=== PATIENT | female | born 1945 | race Caucasian/White ===

== ENCOUNTER 2021-08-26 14:30 | Outpatient (RCR) | payer OTHER, SELFPAY ==
--- OUTSIDE RECORDS SUMMARY | 2021-08-20 09:29 | XMS_ITS | Continuity of Care Document ---
:1945 Author Care Team Providers Name Role Phone MD Leonel Briones Attending Physician MD Leonel Briones Primary Care Physician Allergies, Adverse Reactions, Alerts Allergen Type Severity Reaction Last Updated Verified Status No Known Drug Allergy Unknown July 20, Yes Active Allergy 2021 Social History Smoking Status Status Start Date End Date Date of Observat ion Never smoked tobacco August 18, 2021 8:17pm (finding) Observation Status Observation Response Date of Response History provided by Patient April 16, 2021 5:35pm Where do you live? Own home/apt April 16, 2021 5:35pm With whom do you live? Alone April 16 5:35pm Additional Data Assigned Sex Female Problems Active Problems Medical Problem Onset Date Status Ventricular bigeminy Active Hypertension Active Solitary pulmonary nodule Active Obesity Active Monoclonal gammopathy 2009 Active Hx of basal cell carcinoma April, Resolved History of small bowel obstruction Resol zachery Obstructive sleep apnea Active Atypical melanocytic hyperplasia April, Resolve d Depression Active Hyperlipidemia Active History of colon polyps Active Lymphocytic colitis Active History of MRSA infection 2006 Resolved KAREN (obstructive sleep apnea) Active Diabetes 1.5, managed as type 2 Active Polycystic liver disease Active Polycystic kidney disease Active Macrocytic anemia Active Hypoxia Active CHF (congestive heart failure) Active Heart failure with preserved Active ejection fraction Thyroid nodule greater than or Active equal to 1.5 cm in diameter incidentally noted on imaging study Multiple myeloma not having 2020 Active achieved remission Shortness of breath Active History of cholecystectomy 1996 Resolved History of ventral hernia 2002 Resolved History of abdominoplasty 2006 Resolved History of tonsillectomy Resolved Medications Medication Status Dose Units Route Directions Qty Days Start End Ins tructions Date Date Acetaminophen Active 1 TAB PO Every 8-12 11 August /Hydrocodone Hours as , Bitart needed 2021 (Hydrocodone- 3:05pm Acetaminophen ) 5 Mg/325 Mg TAB Acyclovir Active 400 MG PO Twice A Day 60 May 28, 2021 3:49pm Aspirin Active 325 MG PO Daily 100 Atenolol Active 75 MG PO Twice A Day 90 March 03, 2021 8:01am Atorvastatin Active 20 MG PO Daily 90 Decembe Calcium r 2020 11:00am Cholecalcifer Active 2000 UNIT OR Daily ol (Vitamin D3) 2,000 Unit CAP Cyanocobalami Active 1000 MCG PO Daily n (Vitamin B 12) 1,000 Mcg TAB Dexamethasone Active 40 MG PO One Day Per 40 40 MG ON DAYS Week 1,8,15 AND 22 OF EACH 28 DAY CYCLE Folic Acid Active Unknow PO Daily 30 n Dose Furosemide Active 40 MG PO Daily 90 ua y 2021 3:26pm Lenalidomide Active 15 MG PO As Directed days 1- Lisinopril Active 40 MG PO Daily June 40 mg ta b in , AM 2021 2:46pm Metformin Hcl Active 500-10 MG PO Twice Daily April 500 mg with 00 With Meals , 2021 and 1000 mg 10:17am at supper. Methylprednis Active 4 MG PO As Directed 17 July as directed olone , on package (Methylpredni 2021 solone 10:57am Dosepak) 4 Mg KATHERYN Montelukast Active 10 MG PO As Directed 26 June T cruzito 1 tab prior to daratunumab injection; bring with to Sodium , [facility] 2021 10 Mg TAB 4:15pm Omeprazole Active 20 MG PO As Directed April Ta ke for 3 , days starting 2021 with each 11:46am dose of dexamethasone . Potassium Active 10 MEQ PO Daily May On hold Chloride 2021 9:30am Prochlorperaz Active 10 MG PO Every 4-6 30 uar PRN ine Maleate Hours as y , Navid sea/vomiti needed for 2021 ng Nausea/Vomi 4:08pm ting Turmeric Active Unknow PO (Curcuma n Dose Longa) (Turmeric) Unknown Strength TAB Acyclovir Disconti 200 MG PO Twice A Day 60 30 June nued as needed y , 2021 4:12pm 10:11a m Aspirin Disconti 81 MG PO Daily June (Aspirin 81) nued , , 81 Mg TAB 2020 2021 11:23am 9:50am Atenolol Disconti 75 MG PO Twice A Day Novemberuar nued , y 2020 12:53pm 8:01am Atenolol Disconti 75 MG PO Twice A Day Augustobe nued , r 2020, 8:00am 2020 12:53p m Atenolol Disconti 75 MG PO Twice A Day 90 August, , 2020 2020 2:38pm 8:00am Atenolol Disconti 75 MG PO Twice A Day Juneed , , 2020 2020 8:06am 2:38pm Atenolol Disconti 75 MG PO Twice A Day 90 June y , 2020 8:27am 8:06am Atenolol Disconti 75 MG PO Twice A Day February nued , ry 2019 06, 1:19pm 2020 8:27am Atenolol Disconti 50 MG PO Twice A Day y 2019 1:14pm Atorvastatin Disconti 20 MG PO Daily Dece Calcium nued r 16, er 2019 10th, 3:44pm 2020 11:00a m Atorvastatin Disconti 20 MG PO Daily November Calcium nued , er 2019 16, 8:55am 2019 3:44pm Citalopram Disconti 20 MG PO Daily 30 mbe Februa Hydrobromide nued r 22, ry (Citalopram) 2020 25th, 20 Mg TAB 1:38pm 2021 3:12pm Cyclophospham Disconti 600 MG PO Weekly 48 4 April ta ke 12 ross nued , , tablets once 2021 2021 a week on day 5:06pm 3:08pm of chemo Cyclophospham Disconti 600 MG PO Weekly 48 4 April take 12 ross nued y , , tablets once 2021 2021 a week on day 4:08pm 5:06pm of chemo Dexamethasone Disconti 4 MG PO .as May Michael e on days nued Directed , , 2, 9, and 1 6 2021 2021 of first 3:49pm 10:11a cycle only. m Furosemide Disconti 40 MG PO Daily ua nued r , ry 2020 3rd, 12:44pm 2021 3:26pm Furosemide Disconti 20 MG PO Daily nued r , er 2020, 11:08am 2020 1:00pm Furosemide Disconti 20 MG PO Daily September nued , er 2020 8th, 10:06am 2020 11:08a m Furosemide Disconti 20 MG PO Daily June nued , , 2020 2020 8:13am 10:06a m Furosemide Disconti 20 MG PO Daily June nued , , 2020 2020 4:48pm 8:13am Influenza Disconti 0.7 ML IM Once 1 Virus Vac nued , er Split High 2020, (Fluzone 1:08pm 2020 High-Dose Pf 1:09pm 2020 0.7 Ml) 1 Inj INJ Influenza Disconti 0.7 ML IM Once Novemberobe Virus Vac nued , r Split High 2019, (Fluzone 11:44am 2019 High-Dose Pf 11:47a 2019 0.7 Ml) m 1 Inj INJ Lenalidomide Disconti 25 MG PO .as Direc May DAYS 1-21 OF (Revlimid) 25 nued , , 28 DAY CYCLE Mg CAP 2021 2021 3:49pm 10:11a m Lisinopril Disconti 40 MG PO Daily June 40 m g tab in AM, and use a 20 mg tab at HS. Total 60 mg nued r , , per day. 2020 2021 1:42pm 2:46pm Lisinopril Disconti 20 MG PO Bedtime Mayr 40 mg tab in nued , y the AM, 20 mg 2020, at bed time. 2:53pm 2021 3:28pm Lisinopril Disconti 40 MG PO Every May 40 mg tab in nued Morning , , the AM, 20 m g 2020 2020 at bed time. 2:53pm 10:47a m Lisinopril Disconti 40 MG PO Daily May Take i n AM nued 2020 2:53pm Lisinopril Disconti 20 MG PO Bedtime May nued 2020 2:53pm Metformin Hcl Disconti 500-10 MG PO Twice Daily April 500 mg with nued 00 With Meals r 8th, 7th, breakfas , 2020 2021 and 1000 mg 11:08am 10:17a at supper. m Metformin Hcl Disconti 500-10 MG PO Twice Daily November 500 mg with nued 00 With Meals 20th, er breakfast , 2019 09, and 1000 mg 3:28pm 2020 at supper. 11:08a m Metformin Hcl Disconti 500-10 MG PO Twice Daily November 500 mg with nued 00 With Meals 20th, r breakfast , 2019, and 1000 mg 12:18pm 2019 at supper. 3:28pm Nifedipine Disconti 30 MG PO Daily April (Nifedipine nued , , Er) 30 Mg 2021 2021 TABCR 12:54pm 2:49pm Nifedipine Disconti 30 MG PO Daily April (Nifedipine nued y , Er) 30 Mg 2020 2021 TABCR 1:03pm 12:54p m Nifedipine Disconti 60 MG PO Daily (Nifedipine nued r , er Er) 60 Mg 2020, TABCR 1:44pm 2020 10:26a m Nifedipine Disconti 30 MG PO Daily (Nifedipine nued y , ry Er) 30 Mg 2019 09, TABCR 1:35pm 2020 1:03pm Nifedipine Disconti 30 MG PO Daily February (Nifedipine nued , ry Er) 30 Mg 2019 06, TABCR 5:222019 1:35pm Pneumococcal Disconti 0.5 ML IM Once February Polyvalent nued 8th, y , Vaccine 2019 2019 (Pneumovax 10:23am 3:24pm 23) 25 Mcg/0.5 Ml INJ Potassium Disconti 10 MEQ PO Daily May Chloride nued y , , 2021 2021 9:31am 9:30am Potassium Disconti 20 MEQ PO Daily 90 Februar Februa Chloride nued y , 2021, 3:26pm 2021 11:16a m Potassium Disconti 20 MEQ PO Daily 30 Decembe Februa Chloride nued r , 2020, 12:44pm 2021 3:26pm Prednisone Disconti 40 MG PO Daily 10 Februar Februa nued y , 2021 25th, 9:35am 2021 3:12pm Trimethoprim/ Disconti 1 TAB PO Daily 90 90 Februar June Sulfamethoxaz nu y , , ole (Bactrim 2021 2021 (400 Mg/80 4:13pm 2:49pm Mg)) 400 Mg/80 Mg TAB Immunizations Immunization Event Date Not Given Dose Android Framework Developer Lot Vac cine Reason Number Number Informatio n Statement (VIS) Deta mo COVID-19 Moderna February 272020 COVID-19 Moderna March 312020 COVID-19 Moderna December 302020 Herpes Zoster February 272012 Influenza December 112018 Influenza December 12 SANOFI 2019 Influenza February 12 SANOFI 2020 Influenza December 282004 Influenza November 282005 Influenza November 292006 Influenza January [id number] Influenza December 312008 Influenza November 272009 Influenza December 032010 Influenza March 062012 Influenza May 202013 Influenza December 062014 Influenza February 062015 Influenza December 082016 Influenza November 302017 Influenza December 102017 Influenza November 272019 Influenza January 282020 Prevnar Adult November 272014 Pneumovax Adult March 06, MERCK [id number] 2019 Pneumovax Adult November 27 [id number] 2009 Pneumovax Adult November 28 [id number] 2016 Tetanus/Diptheri June 30, 4 a 2010 Tetanus/Diptheri January 27 a 1982 Tetanus/Diptheri September 23, 2 a 1996 Tetanus/Diptheri July 27, 3 a 2006 Tdap June 30, 1 (adolescent/adul 2010 t) Relevant Diagnostic Tests and/or Laboratory Data Laboratory Results Test Date/Time Result Interpretation Reference Result Comment Performing Range Site White Blood August 18, 3.54 5.00-10.00 [facility] Lab Count 2021 1999 [facility] 10:52am [place] [address] Red Blood August 18, 3.69 3.90-5.03 [facility] Lab Count 2021 [address] [facility] 10:52am [place] [address] Hemoglobin August 18, 11.2 12.0-15.5 [facility] 2021 [address] [facility] 10:52am [place] [address] Hematocrit August 18, 36.9 34.9-44.5 [facility] 2021 [address] [facility] 10:52am [place] [address] Mean August 18, 100 82-98 [facility] Corpuscular 2021 1999 [facility] Volume 10:52am [place] [address] Mean August 18, 30 27-34 [facility] Corpuscular 2021 1999 [facility] Hemoglobin 10:52am [facility] [place] [address] Mean August 18, 30 32-36 [facility] Corpuscular 2021 [address] [facility] Hemoglobin 10:52am [facility] [place] [address] Concent Platelet August 18, 128 150-450 [facility] Count 2021 [address] [facility] 10:52am [place] [address] RDW August 18, 15.0 11.5-15.3 [facility] Coefficient 2021 1999 [facility] of Variation 10:52am [place] [address] Neutrophils August 18, 61.6 50.0-70.0 [facility] Lab (%) (Auto) 2021 [address] [facility] 10:52am [place] [address] Lymphocytes August 18, 12.1 25.0-45.0 [facility] Lab (%) (Auto) 2021 [address] [facility] 10:52am [place] [address] Monocytes (%) August 18, 17.8 0.00-11.0 [facility] Lab (Auto) 2021 [address] [facility] 10:52am [place] [address] Eosinophils August 18, 7.6 0.0-7.0 [facility] Lab (%) (Auto) 2021 [address] [facility] 10:52am [place] [address] Basophils (%) August 18, 0.6 0.0-3.0 [facility] Lab (Auto) 2021 [address] [facility] 10:52am [place] [address] Immature August 18, 0.3 [facility] Granulocyte % 2021 1999 [facility] (Auto) 10:52am [facility] [address] Neutrophils # August 18, 2.18 1.70-7.00 [facility] Lab (Auto) 2021 [address] [facility] 10:52am [facility] [address] Lymphocytes # August 18, 0.43 0.90-2.90 [facility] Lab (Auto) 2021 [address] [facility] 10:52am [facility] [address] Monocytes # August 18, 0.63 0.30-0.90 [facility] Lab (Auto) 2021 [address] [facility] 10:52am [facility] [address] Eosinophils # August 18, 0.27 0.00-0.50 [facility] Lab (Auto) 2021 [address] [facility] 10:52am [facility] [address] Basophils # August 18, 0.02 0.00-0.20 [facility] Lab (Auto) 2021 [address] [facility] 10:52am [place] [address] Immature August 18, 0.01 [facility] Granulocyte # 2021 [address] [facility] (Auto) 10:52am [facility] [address] Ferritin February 65.4 11.1-264 Patients taking [facility] 2021 a high dose [address] [facility] [address] 4:50pm (>5mg/day) of [facility] [place] [address] Biotin supplement (vitamin B7) will demonstrate a >10% negative bias for this test. Random August 18, 98 60-115 [facility] Glucose 2021 [address] [facility] 10:52am [facility] [address] Blood Urea August 18, 32 7-30 [facility] Nitrogen 2021 [address] [facility] 10:52am [facility] [address] Creatinine August 18, 1.1 0.5-1.5 [facility] 2021 [address] [facility] 10:52am [place] [address] Estimated August 18, 36.26230 [facility] Creatinine 2021 [address] [facility] Clearance 10:52am [facility] [address] Sodium Level August 18, 139 135-149 [facility] 2021 [address] [facility] 10:52am [facility] [address] Potassium August 18, 4.4 3.6-5.1 [facility] Level 2021 [address] [facility] 10:52am [facility] [address] Chloride August 18, 99 96-114 [facility] Level 2021 [address] [facility] 10:52am [facility] [address] Carbon August 18, 34 20-32 [facility] Dioxide Level 2021 [address] [facility] 10:52am [facility] [address] Uric Acid February 14.2 2.2-8.4 [facility] 2021 [facility] 4:50pm [facility] [address] Calcium Level August 18, 9.4 8.4-10.6 [facility] Lab 2021 [address] [facility] 10:52am [facility] [address] Total Protein August 18, 6.3 6.0-8.3 The use of [facility] 2021 Eltrombopag, a [address] [facility] 10:52am bone marrow [facility] [address] stimulant used to treat thrombocytopenia and aplastic anemia, interferes with this measurement of total protein. A 5% bias has been observed. Albumin August 18, 4.1 3.3-5.0 [facility] 2021 [address] [facility] 10:52am [facility] [address] Total August 18, 0.5 0.1-1.5 [facility] Bilirubin 2021 [address] [facility] 10:52am [facility] [address] Aspartate August 18 12-35 [facility] Amino Transf 2021 [address] [facility] [address] (AST/SGOT) 10:52am [facility] [address] Alanine August 18 17 4-35 [facility] Aminotransfer 2021 [address] [facility] ase 10:52am [facility] [address] (ALT/SGPT) Alkaline August 18, 43 40-150 [facility] Phosphatase 2021 1999 [facility] 10:52am [facility] [address] Oauy-[id number] February 34.8 1.1-2.4 Performed By: [facility] lobulin 2021 [facility] [address] [facility] [address] 4:50pm [id number] [place] [id number] [place], [place] [id number] Director: Olivia Hill MD Homocysteine March 05 0-15 INTERPRETIVE [facility] 2021 INFORMATION: [address] 4:50pm Homocysteine, [facility] [address] TotalElevated total homocysteine (tHcy) concentrations may beassociated with vitamin B12 deficiency, folate deficiency, orinherited disorders of methionine metabolism. tHcy may also beused as a weak-graded risk factor for cardiovascular disease orstroke.Perform ed By: [address] [address]Mnjgkiofys Director: Olivia Hill MD Methylmalonic February 0.58 0.00-0.40 Slight elevation [facility] Acid 2021 0.41-0.99 umol/L [address] 4:50pm Consistent KATY [facility] [address] with mild vitamin B12 deficiency, renal insufficiency, or intravascular volume contraction.Mode rate elevation 1.00-9.99 umol/L Consistent with mild vitamin B12 deficiency.Massi ve elevation - Greater than or equal to 10 umol/L Consistent with significant vitamin B12 deficiency or with inborn errors of metabolism.INTER PRETIVE INFORMATION: MMA Serum/Plasma, Vitamin B12 StatusThis test was developed and its performance characteristicsd etermined by [facility]. It has not been cleared orapproved by the [place] Food and Drug Administration. This test wasperformed in a CLIA certified laboratory and is intended forclinical purposes.Perform ed By: [address] [id number] Director: Olivia Hill MD Total Protein August 04, 6.0 6.3-8.2 [facility] (DOMO) [address] 10:32am [facility] [address] Albumin (DOMO) August 04, 3.46 3.75-5.01 [facility] [address] 10:32am [facility] [address] Vrstu-[id number] August 04, 0.44 0.19-0.46 [facility] kofi [address] 10:32am [facility] [address] Vsoim-3-[id number] August 04, 0.85 0.48-1.05 [facility] kofi [address] 10:32am [facility] [address] Beta August 04, 0.67 0.48-1.10 [facility] Globulins [address] 10:32am [facility] [address] Gamma August 04, 0.58 0.62-1.51 [facility] Globulins [address] 10:32am [facility] [address] Immunofixatio August 04, DOM[facility] Done [facility] n [address] Interpretatio 10:32am [facility] [address] n Immunoglobuli August 04, [phone] REFERENCE [facility] n G 2021 INTERVAL: [address] (Nephelometry 10:32am Immunoglobulin S [facility] [address] ) GAccess complete set of age- and/or gender-specific referenceinterva ls for this test in the [facility] Test Directory([place]). Immunoglobuli August 04, 11 68-408 REFERENCE [facility] n A 2021 INTERVAL: [address] (Nephelometry 10:32am Immunoglobulin S [facility] [address] ) AAccess complete set of age- and/or gender-specific referenceinterva ls for this test in the [employer] [facility] Test Directory([place]). Immunoglobuli August 04, < 10 35-263 REFERENCE [facility] n M 2021 INTERVAL: [address] (Nephelometry 10:32am Immunoglobulin [facility] [address] ) MAccess complete set of age- and/or gender-specific referenceinterva ls for this test in the [employer] [facility] Test Directory([place]). Free Sab[place] August 04, 10.25 3.30-19.40 INTERPRETIVE [facility] Light Chains, 2021 INFORMATION: [address] Quant 10:32am [place] Qnt Free [facility] [address] Light ChainsUndetected antigen excess is a rare event but cannot beexcluded. Free light chain results should always be interpretedin conjunction with other clinical and laboratory findings. Free Lambda August 04, 13.68 5.71-26.30 [facility]PRE[facility]IVE [facility] Light Chains, 2021 INFORMATION: [address] Quant 10:32am Lambda Qnt Free [facility] [address] Light ChainsUndetected antigen excess is a rare event but cannot beexcluded. Free light chain results should always be interpretedin conjunction with other clinical and laboratory findings. Free Sabula August 04, 0.75 0.26-1.65 [facility] and Lambda [address] Light Chains 10:32am [facility] [address] DOMO & Serum August 04, See Note M-spike in the [facility] PEP 2021 gamma region. [address] Interpretatio 10:32am The monoclonal S [facility] [address] n protein peakaccounts for 0.44 g/dL of the total 0.58 g/dL of protein inthe gamma region. Hypogammaglobuli nemia. DOMO gel patternshows an IgG type lambda monoclonal protein with anadditional faint band in kappa. Monoclonal August 04, See Note Authorized [facility] Protein and 2021 individuals can [address] FLC (EER) 10:32am access the [facility] [address] AREnhanced Report using the following link:[email or web address] By: [employer] Bjpjsaeowcpr[address] [place], [place] [id number] Director: Olivia Hill MD Urine April 22 [facility] Collection [address] Time 7:30am [facility] [address] Urine Total March 975 [facility] Volume [address] 7:30am [facility] [address] Urine Total March See Note <=150 Total Urinary [facility] Protein 2021 Protein result [address] 7:30am is 7 [facility] [address] mg/d.INTERPRETIV E INFORMATION: Total ProteinTotal urinary protein is determined turbidimetricall y by addingthe albumin and kappa and/or lambda light chains. This value maynot agree with the total protein as determined by chemicalmethods, which characteristical ly underestimate urinary lightchains. Urine March See Note Suspicious band [facility] Immunofixatio 2021 in the beta [address] n Interpret 7:30am region with [facility] [address] 24hr lambda specificity.Urin e DOMO shows a monoclonal IgG heavychain with associated lambda light chain.INTERPRETI VE INFORMATION: DOMO with Free Light Chains, Quant, UrineResults of urine free light chain testing can be used to monitordisease progression or response to therapy in patients for whomurine electrophoresis is unable to provide reliable Bence JonesProtein quantification. The results of urine kappa and lambdafree light chain quantitative values may be misleading inspecimens with high levels of urinary polyclonal free lightchains, and absent Bence Vargas protein by immunofixation;t herefore correlation with urine immunofixation is required toidentify inconsistent results. Urine Free March 3.72 0.00-32.90 INTERPRETIVE [facility] [place] Light 2021 INFORMATION: [address] Chains 24 hr 7:30am Free Urinary [facility] [address] [place] Light ChainsUndetected antigen excess is a rare event but cannot beexcluded. Free light chain results should always be interpretedin conjunction with other clinical and laboratory findings. Ur Free Sab[place] March 3.63 [facility] Light [address] Excretion 24 7:30am [facility] [address] hr Urine Free March 3.52 0.00-3.79 [facility] Lambda Light [address] Chains 24hr 7:30am [facility] [address] Ur Free March 3.43 Performed By: [facility] Lambda Light [address] [facility] [address] Excretion 7:30am [id number] [facility] [address] [address] [place], [place] [address]Bvtbjmeqdu Director: Olivia Hill MD, MS Miscellaneous February VITAMIN [facility] Test 2021 B12 [address] [facility] 4:50pm [facility] [address] Miscellaneous Jaquelin SEE REF [facility] Test Result 2021 LAB SCAN [address] 4:50pm [facility] [address] Miscellaneous Jaquelin ALLINA [facility] Test [address] [facility] [address] Performing 4:50pm [facility] [address] Site Vital Signs Vital Reading Result Reference Range Collection Date/ Time Height 62 [in_i] August 18, 2021 2:40pm Height 157.48 cm August 18, 2021 2:40pm Weight 232 [lb_av] August 18, 2021 2:40pm Weight 105.678359 kg August 18, 2021 2:40pm Body Temperature 96.3 [degF] August 18, 2021 2:40pm Body Temperature 35.72 Anabelle August 18, 2021 2:40pm BP Systolic 145 mm[Hg] August 18, 2021 2:40pm BP Diastolic 66 mm[Hg] August 18, 2021 2:40pm Heart Rate 54 /min August 18, 2021 2:40pm Respiratory rate 18 /min August 18, 2021 2:40pm Body surface area 2.04 m2 August 18 2:40pm BMI (Body Mass Index) 42.4 kg/m2 August 18, 2021 2:40pm Advance Directives Advance Directive Response Recorded Date/Time Has patient completed a No August 18, 2021 8:17pm Health Care Directive? Insurance Providers Guarantor Kyle Gregg Address [address] [place] [phone] Contact Info. 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 Chronic right knee pain--steroid injection approximately 1 month ago with no relief of her symptoms. Referral orthopedics placed again. I have given her Vicodin to be used at bedtime until we have a better solution. I am reluctant to start her on prednisone due to upcoming stem cell transplant and her diagnosis of multiple myeloma. Recommended that she continue to rest, apply ice, and elevate as able. Patient will cough with her oncologist tomorrow to see if she can not even be on a short burst of prednisone. Plan of Treatment Instructions from visit on: 08/18/21 Please follow the provider's instructions as discussed during your visit. Future Tests Future scheduled test information is unavailable Pending Tests Test Name Date ordered Total Protein (DOMO) August 18, 2021 10:52am Albumin (DOMO) August 18, 2021 10:52am Vjtce-3-Dlmwlvale August 18, 2021 10:52am Noilo-2-Qfmoayuhf August 18, 2021 10:52am Beta Globulins August 18, 2021 10:52am Gamma Globulins August 18, 2021 10:52am Immunofixation Interpretation August 18, 2021 10:52am Immunoglobulin G (Nephelometry) August 18, 2021 10:52a m Immunoglobulin A (Nephelometry) August 18, 2021 10:52a m Immunoglobulin M (Nephelometry) August 18, 2021 10:52a m Free Sabula Light Chains, Quant August 18, 2021 10:52am Free Lambda Light Chains, Quant August 18, 2021 10:52a m Free Sabula and Lambda Light Chains August 18, 2021 10: 52am DOMO & Serum PEP Interpretation August 18, 2021 10:52am Monoclonal Protein and FLC (EER) August 18, 2021 10:52 am Future Visits Future appointment information is unavailable Referrals to Other Providers Reason for Referral Start Provider Provider Contact Provider Address Referral Date Information Left message for patient to call back to schedule sleep stud y. Insurance HP Panchito Briones Work Phone: [employer] verified and confirmed. No auth needed. Order faxed to [facility] @ [address] [phone] ALEJANDRA SWEET [phone] Called patient and left a voicemail to call [phone] to schedule her HOSPITAL, orthopedic appt. [facility], [facility] Right knee pain [facility], [place] Future Procedures Procedure Name Scheduled Date DAVID Bilat Mammo Scrn STRESS Treadmill Echo Future Medications Future medication information is unavailable Patient Instructions See Additional Instructions Hypoxia (GEN) Anemia (AC) Hypoxia (ED) Goals Ambulatory Goals Reach or maintain optimal well being.
[2021-08-25 11:19] LABS: Slide Review Reflex No
[2021-08-25 11:33] LABS: Basophils Percent Auto 0.6 % (0.0-3.0); Eosinophils Percent Auto 6.4 % (0.0-7.0); Hematocrit 35.1 % (33.0-51.0); Hemoglobin* 10.9 gm/dL (12.0-16.0); Immature Granulocytes Abs Auto 0.01 K/uL (0.00-0.30); Lymphocytes Percent Auto 9.8 % (20-44); Mean Corpuscular HGB Conc 31 gm/dL (32-36); Mean Corpuscular Hemoglobin 30 pg (26-34); Mean Corpuscular Volume 98 fL (80-100); Monocytes Percent Auto 9.1 % (0.0-11.0); Neutrophils Percent Auto 73.8 % (42.0-72.0); Platelet Count* 139 K/uL (140-440); RDW Coefficient of Variation % 15.2 % (11.5-15.5); Red Blood Count 3.58 m/uL (4.00-5.20); White Blood Count* 3.28 K/uL (4.50-11.00)
[2021-08-25 11:56] LABS: Chloride* 100 mmol/L (96-114)
[2021-08-25 11:57] LABS: Potassium* 4.2 mmol/L (3.6-5.1); Sodium* 137 mmol/L (135-149)
[2021-08-25 11:59] LABS: Est. Creatinine Clearance* 39.63; Estimated Glomerular Filt Rate 59.49
[2021-08-25 12:00] LABS: Blood Urea Nitrogen* 26 mg/dL (7-30); Calcium* 9.3 mg/dL (8.4-10.6); Carbon Dioxide* 33 mmol/L (20-32); Glucose* 121 mg/dL (60-115)
[2021-08-26 14:30] VITALS: BP 151/81; PULSE 65; RESP 16; TEMP 36.3; O2SAT 95
--- NOTE | 2021-08-26 16:04 | ONC.NURNOTE ---
Having a Bone Marrow transplant at [facility] September 20. No injections or infusions for 2 weeks before. apts cancelled .
== END 2021-08-26 23:59 | disposition home or self-care (01) ==
LOC: CCIC 14:30
PROVIDERS: PCP Family Medicine; Visit Provider Internal Medicine Hematology & Oncology
DX: Z51.11 Encounter for antineoplastic chemotherapy (principal); C90.00 Multiple myeloma not having achieved remission
CPT/HCPCS: 96401; 36415; 80048; 85025; J9041

== ENCOUNTER 2021-09-16 14:30 | Outpatient (RCR) | payer OTHER, SELFPAY ==
[2021-09-01 11:21] LABS: Basophils Absolute Auto 0.01 K/uL (0.00-0.30); Basophils Percent Auto 0.2 % (0.0-3.0); Hematocrit 35.5 % (33.0-51.0); Immature Granulocytes Abs Auto 0.03 K/uL (0.00-0.30); Lymphocytes Percent Auto 9.8 % (20-44); Mean Corpuscular HGB Conc 31 gm/dL (32-36); Mean Corpuscular Hemoglobin 30 pg (26-34); Mean Corpuscular Volume 98 fL (80-100); Monocytes Percent Auto 16.9 % (0.0-11.0); Neutrophils Percent Auto 64.4 % (42.0-72.0); Platelet Count* 125 K/uL (140-440); RDW Coefficient of Variation % 15.2 % (11.5-15.5); Red Blood Count 3.64 m/uL (4.00-5.20)
[2021-09-01 11:28] LABS: Slide Review Reflex No
[2021-09-01 11:36] LABS: Chloride* 100 mmol/L (96-114); Potassium* 4.2 mmol/L (3.6-5.1); Sodium* 137 mmol/L (135-149)
[2021-09-01 11:39] LABS: Blood Urea Nitrogen* 33 mg/dL (7-30); Carbon Dioxide* 33 mmol/L (20-32); Creatinine* 1.2 mg/dL (0.5-1.5)
[2021-09-01 11:40] LABS: Calcium* 9.2 mg/dL (8.4-10.6); Glucose* 62 mg/dL (60-115)
--- NOTE | 2021-09-01 14:58 | ONC.NURNOTE ---
Lacrosse Player connected with [facility] transplant team for clarification as to when we will stop with current dosing of Faspro/Velcade/Rev Transplant team will fax the orders to the [facility] when they plan is in place Currently anticipated transplant in Oct with stem cell harvest later in September labs and above info was called to Nicki
[2021-09-02 14:45] VITALS: BP 143/78; PULSE 55; RESP 24; TEMP 36.4; O2SAT 94
[2021-09-02] MEDS: DARATUMUMAB-HYALURONIDASE-FIHJ 15 ML SUBCUT (16:12)
[2021-09-02] MEDS: dexAMETHasone 4 MG TABLET 20 MG PO (16:42)
[2021-09-02] MEDS: ACETAMINOPHEN 325 MG TABLET 650 MG PO (16:42)
[2021-09-02] MEDS: diphenhydrAMINE 25 MG CAPSULE 50 MG PO (16:43)
--- NOTE | 2021-09-03 13:44 | ONC.NURNOTE ---
Contacted Hematology at [facility] [phone] requesting letter of recommendation as to when to stop Revlimid/Faspro/Dex per Pat the plan is as follows ( Heri- scheduling called Pat) 09/20/21- 09/24/21- Education, and prelim testing 10/21- to [facility] for start of transplant care 11/03- receive the stem cells
--- NOTE | 2021-09-03 15:15 | ONC.NURNOTE ---
Faxed Caleb Arredondo (ortho) note from 08/31/21 to [facility]. Attn: Dr. Varela. #[phone]. Pt has been having severe right knee pain and steroid injection in June did not help. Requested Brooten advise pt whether arthroscopic procedure would be okay to pursue.
--- NOTE | 2021-09-06 10:10 | ONC.NURNOTE ---
Authorization: User: Michaela Pillai Date: 06/08/21 09:19 Type: Eligibility Determination Note... Request received from [facility] for prior authorization of Velcade J9041, Daratumumab-Hyaluronidase J9144 and Dexamethasone J1100. Patient carries [email or web address] as primary insurance. Per Ale at [email or web address] no prior authorization is required for Velcade and Dexamethasone. [place] required for Daratumumab-Hyaluronidase. Call Ref # [id number]. Per [email or web address] Daratumumab-Hyaluronidase has been approved from 06/03/2021 through 11/21/2021. Follow FDA-approved or recommended guidelines. Authorization #[id number]
--- NOTE | 2021-09-06 11:56 | ONC.NURNOTE ---
Per phone call from Dr Varela at [facility] Stem Cell Transplant: -Continue dex weekly -hold all treatment the week of September 20 (Pat will be at [facility] for intake) Treatments held include Velcade/Faspro (Darzalex)/Revlimid -May resume Revlimid between 09/16 (Day one) through 09/19 then stop Revlimid until after her transplant -Velcade/Darzalex treatment dates are 09/09:09/16: 09/30 -No further treatment after 10/06/21
[2021-09-08 13:43] LABS: Basophils Percent Auto 0.5 % (0.0-3.0); Eosinophils Percent Auto 14.9 % (0.0-7.0); Hematocrit 33.2 % (33.0-51.0); Hemoglobin* 10.4 gm/dL (12.0-16.0); Immature Granulocytes Abs Auto 0.02 K/uL (0.00-0.30); Lymphocytes Percent Auto 10.4 % (20-44); Mean Corpuscular HGB Conc 31 gm/dL (32-36); Mean Corpuscular Hemoglobin 31 pg (26-34); Mean Corpuscular Volume 98 fL (80-100); Monocytes Percent Auto 18.8 % (0.0-11.0); Neutrophils Percent Auto 54.9 % (42.0-72.0); Platelet Count* 117 K/uL (140-440); RDW Coefficient of Variation % 15.4 % (11.5-15.5); White Blood Count* 4.04 K/uL (4.50-11.00)
[2021-09-08 13:51] LABS: Slide Review Reflex No
[2021-09-08 14:01] LABS: Albumin* 3.6 g/dL (3.3-5.0)
[2021-09-08 14:02] LABS: Potassium* 4.3 mmol/L (3.6-5.1); Sodium* 138 mmol/L (135-149)
[2021-09-08 14:04] LABS: Bilirubin Total* 0.5 mg/dL (0.1-1.5); Carbon Dioxide* 31 mmol/L (20-32); Creatinine* 1.2 mg/dL (0.5-1.5)
[2021-09-08 14:05] LABS: Alanine Aminotransferase* 18 U/L (4-35); Alkaline Phosphatase* 48 U/L (40-150); Aspartate Amino Transferase* 16 U/L (12-35); Blood Urea Nitrogen* 33 mg/dL (7-30); Glucose* 88 mg/dL (60-115); Total Protein* 5.6 g/dL (6.0-8.3)
[2021-09-08 15:26] LABS: Chloride* 104 mmol/L (96-114)
[2021-09-09 12:15] VITALS: BP 167/98; RESP 16; TEMP 36.4; O2SAT 97
[2021-09-15 10:49] LABS: Basophils Absolute Auto 0.02 K/uL (0.00-0.30); Basophils Percent Auto 0.4 % (0.0-3.0); Eosinophils Absolute Auto 0.27 K/uL (0.00-0.50); Eosinophils Percent Auto 5.6 % (0.0-7.0); Hematocrit 33.6 % (33.0-51.0); Hemoglobin* 10.5 gm/dL (12.0-16.0); Immature Granulocytes Abs Auto 0.02 K/uL (0.00-0.30); Lymphocytes Percent Auto 7.7 % (20-44); Mean Corpuscular HGB Conc 31 gm/dL (32-36); Mean Corpuscular Hemoglobin 30 pg (26-34); Mean Corpuscular Volume 97 fL (80-100); Monocytes Percent Auto 18.1 % (0.0-11.0); Neutrophils Absolute Auto 3.25 K/uL (1.7-7.0); Neutrophils Percent Auto 67.8 % (42.0-72.0); Platelet Count* 129 K/uL (140-440); RDW Coefficient of Variation % 15.6 % (11.5-15.5); Red Blood Count 3.47 m/uL (4.00-5.20)
[2021-09-15 10:50] LABS: Slide Review Reflex No
[2021-09-15 11:07] LABS: Albumin* 3.6 g/dL (3.3-5.0); Chloride* 104 mmol/L (96-114); Sodium* 139 mmol/L (135-149)
[2021-09-15 11:08] LABS: Potassium* 4.1 mmol/L (3.6-5.1)
[2021-09-15 11:10] LABS: Alanine Aminotransferase* 17 U/L (4-35); Alkaline Phosphatase* 50 U/L (40-150); Aspartate Amino Transferase* 20 U/L (12-35); Bilirubin Total* 0.5 mg/dL (0.1-1.5); Blood Urea Nitrogen* 34 mg/dL (7-30); Calcium* 8.9 mg/dL (8.4-10.6); Carbon Dioxide* 29 mmol/L (20-32); Creatinine* 1.4 mg/dL (0.5-1.5); Estimated Glomerular Filt Rate 40 ml/min; Glucose* 83 mg/dL (60-115); Total Protein* 5.6 g/dL (6.0-8.3)
[2021-09-16 14:48] VITALS: BP 145/68; PULSE 59; RESP 16; TEMP 36.9; O2SAT 93
[2021-09-16] MEDS: DARATUMUMAB-HYALURONIDASE-FIHJ 15 ML SUBCUT (15:33)
--- NOTE | 2021-09-16 17:12 | ONC.NURNOTE ---
Tired of having no energy. sleeps alot . slightly swollen feet.taking lasix 40 daily. enc pt to watch sodium and wt daily. s/s fluid retention. heart reg s1s2. Pt took tylenol dex and benadryl at home before coming in.
[2021-09-17 22:57] LABS: Albumin 3.53 g/dL (3.75-5.01); Alpha 1 Globulin 0.35 g/dL (0.19-0.46); Alpha 2 Globulin 0.78 g/dL (0.48-1.05); Immunofixation IFE Done; Immunoglobulin A 6 mg/dL (68-408); Immunoglobulin G 361 mg/dL (768-1632); Immunoglobulin M < 10 mg/dL (35-263); Kappa Qnt Free Light Chains 7.87 mg/L (3.30-19.40); Kappa/Lambda Light Chain Ratio 0.91 (0.26-1.65); Lambda Qnt Free Light Chains 8.69 mg/L (5.71-26.30); Total Protein, Serum 5.6 g/dL (6.3-8.2)
== END 2021-09-26 23:59 | disposition home or self-care (01) ==
LOC: CCIC 14:30
PROVIDERS: Clinical Nurse Specialist; PCP Family Medicine; Visit Provider Internal Medicine Hematology & Oncology
DX: Z51.11 Encounter for antineoplastic chemotherapy (principal); C90.00 Multiple myeloma not having achieved remission
CPT/HCPCS: 96401; 36415; 80048; 80053; 82784; 83520; 84155; 84165; 85025; 86334; 96372; 96374; 96413; J9144; A9270; J9041

== ENCOUNTER 2021-09-30 13:00 | Outpatient (RCR) | payer OTHER, SELFPAY ==
[2021-09-29 10:40] LABS: Basophils Absolute Auto 0.04 K/uL (0.00-0.30); Basophils Percent Auto 0.6 % (0.0-3.0); Eosinophils Absolute Auto 0.27 K/uL (0.00-0.50); Eosinophils Percent Auto 4.1 % (0.0-7.0); Hematocrit 33.5 % (33.0-51.0); Hemoglobin* 10.4 gm/dL (12.0-16.0); Immature Granulocytes Abs Auto 0.01 K/uL (0.00-0.30); Lymphocytes Percent Auto 6.4 % (20-44); Mean Corpuscular HGB Conc 31 gm/dL (32-36); Mean Corpuscular Hemoglobin 30 pg (26-34); Mean Corpuscular Volume 97 fL (80-100); Monocytes Percent Auto 18.8 % (0.0-11.0); Neutrophils Absolute Auto 4.58 K/uL (1.7-7.0); Neutrophils Percent Auto 69.9 % (42.0-72.0); Platelet Count* 223 K/uL (140-440); RDW Coefficient of Variation % 15.7 % (11.5-15.5); Red Blood Count 3.44 m/uL (4.00-5.20); White Blood Count* 6.55 K/uL (4.50-11.00)
[2021-09-29 10:43] LABS: Slide Review Reflex No
[2021-09-29 10:52] LABS: Chloride* 101 mmol/L (96-114); Sodium* 139 mmol/L (135-149)
[2021-09-29 10:55] LABS: Blood Urea Nitrogen* 24 mg/dL (7-30); Carbon Dioxide* 33 mmol/L (20-32); Creatinine* 0.9 mg/dL (0.5-1.5); Estimated Glomerular Filt Rate 68 ml/min; Glucose* 122 mg/dL (60-115)
[2021-09-30 13:00] VITALS: BP 155/70; PULSE 58; RESP 16; TEMP 36.3; O2SAT 97
--- NOTE | 2021-09-30 13:45 | ONC.NURNOTE ---
NO VELCADE C4D8 week of 09/23/21 Pt did not receive C4D8 Velcade on 09/23/21. Pt at [facility] last week for transplant workup.
[2021-09-30] MEDS: DARATUMUMAB-HYALURONIDASE-FIHJ 15 ML SUBCUT (14:01)
== END 2022-03-28 23:59 | disposition home or self-care (01) ==
LOC: CCIC 13:00
PROVIDERS: PCP Family Medicine; Visit Provider Internal Medicine Hematology & Oncology
DX: Z51.11 Encounter for antineoplastic chemotherapy (principal); C90.00 Multiple myeloma not having achieved remission
CPT/HCPCS: 36415; 80048; 85025; 96401; J9144; J9041

== ENCOUNTER 2022-03-19 11:05 | Emergency (ER) | payer OTHER, SELFPAY ==
[2022-03-19 11:22] VITALS: BP 149/88; PULSE 74; RESP 18; TEMP 37.1; O2SAT 95; BMI 34.2
--- NOTE | 2022-03-19 11:53 | CRLHL7_ITS ---
For Patients: As a result of the Cures Act, medical imaging exams and procedure reports are released immediately into your electronic medical record. You may view this report before your referring provider. If you have questions, please contact your health care provider. Indication: Cough, congestion Comparison: Single view chest February 21, 2021 Technique: Single AP view chest Findings: There is hyperinflation and chronic interstitial change. There is minimal superimposed central bronchial thickening. There is no dense consolidation, effusion or pneumothorax. The cardiomediastinal silhouette is within normal limits. The bony thorax is grossly intact. Impression: Hyperinflation and chronic interstitial change with mild likely superimposed bronchial thickening. No dense consolidation. Dictated by Godfrey Dao MD @ 03/19/2022 12:59:40 PM (Electronically Signed)
[2022-03-19 12:04] LABS: Strep A DNA Probe* NOT DETECTED (Not Detectd)
[2022-03-19 12:14] LABS: Eosinophils Absolute Auto 0.02 K/uL (0.00-0.50); Eosinophils Percent Auto 0.2 % (0.0-7.0); Hematocrit 39.8 % (33.0-51.0); Hemoglobin* 12.7 gm/dL (12.0-16.0); Immature Granulocytes Abs Auto 0.02 K/uL (0.00-0.30); Immature Granulocytes Pct Auto 0.2 %; Lymphocytes Percent Auto 7.9 % (20-44); Mean Corpuscular HGB Conc 32 gm/dL (32-36); Mean Corpuscular Hemoglobin 30 pg (26-34); Mean Corpuscular Volume 95 fL (80-100); Monocytes Percent Auto 9.5 % (0.0-11.0); Neutrophils Percent Auto 82.2 % (42.0-72.0); Platelet Count* 147 K/uL (140-440); RDW Coefficient of Variation % 13.1 % (11.5-15.5); Red Blood Count 4.19 m/uL (4.00-5.20); White Blood Count* 8.43 K/uL (4.50-11.00)
[2022-03-19 12:16] LABS: PCR FLU A Negative PCR FLU A (Negative); PCR FLU B Negative PCR FLU B (Negative); PCR RSV Negative PCR RSV (Negative)
[2022-03-19 12:17] LABS: Slide Review Reflex No
[2022-03-19 12:19] LABS: SARS PCR* POSITIVE SARS-CoV-2 (Negative)
--- NOTE | 2022-03-19 12:59 | ED_ITS ---
HPI - General Adult General Chief complaint: Cough Stated complaint: Cough, congestion, ear and throat pain Time Seen by Provider: 03/19/22 11:20 Source: patient Mode of arrival: ambulatory Limitations: no limitations History of Present Illness HPI narrative: 76-year-old female coming in today complaining of not feeling well for the last 4 days. She complains of congestion, cough. She states that on Monday night when this all started she had a fever of just above 100. She has not had a fever since. He is complaining of ear fullness, pressure across her face and forehead. No significant nasal drainage or congestion. She feels rundown and tired. She is also undergoing treatment for multiple myeloma and expects to start a new chemotherapy when she gets the go ahead from her oncologist. She just finished her stem cell therapy. Related Data Home Medications Medication Instructions Recorded Confirmed acyclovir 400 mg tablet 400 mg PO BID 08/23/21 03/15/22 cyanocobalamin (vitamin B-12) 1,000 mcg PO DAILY 08/23/21 03/15/22 1,000 mcg capsule lisinopril 40 mg tablet 40 mg PO DAILY 08/23/21 03/15/22 metformin 500 mg tablet 500 mg PO BID 08/23/21 03/15/22 omeprazole 20 mg capsule,delayed 20 mg PO DIRECTED 08/23/21 03/15/22 release prochlorperazine maleate 10 mg 10 mg PO Q4-6H PRN 08/23/21 03/15/22 tablet furosemide 40 mg tablet 20 mg PO DAILY 09/30/21 03/15/22 oxycodone 5 mg tablet 5 mg PO TID PRN 12/31/21 03/15/22 Previous Rx's Medication Instructions Recorded Walker- 4 Wheels #1 ea 08/31/21 atorvastatin 20 mg tablet 20 mg PO DAILY #90 tabs 10/25/21 oxycodone 5 mg tablet 5 mg PO TID PRN pain #60 tabs 12/31/21 potassium chloride 10 mEq 10 meq PO QDAY #90 tabs 12/31/21 tablet,extended release atenolol 50 mg tablet 75 mg PO BID #135 tabs 01/03/22 lorazepam 0.5 mg tablet 0.5 mg PO BID PRN anxiety #60 tabs 01/24/22 nirmatrelvir 300 mg (150 mg See Rx Instructions PO .COMPLEX 03/19/22 x2)-ritonavir 100 mg tablet,dose #30 ea pack(EUA) (Paxlovid) Allergies Allergy/AdvReac Type Severity Reaction Status Date / Time adhesive Allergy Unknown Rash Verified 03/15/22 13:24 Review of Systems Status of ROS: Reports: 10 or more systems reviewed and unremarkable except as noted in History and below [facility] Medical History History of basal cell carcinoma (BCC) (04/2015) Surgical History History of abdominoplasty (2006) History of cholecystectomy (1996) History of tonsillectomy Family History Other Melanoma Social History Smoking Status: Former smoker Do you use any of these nicotine containing products: None Second hand tobacco smoke exposure: No How often do you have a drink containing alcohol: never How often do you have six or more drinks on one occasion: Never AUDIT-C Alcohol total score: 0 Non-prescribed substance use: denies use Exam Narrative: Exam Narrative: Well-nourished well-developed patient in no acute distress. Alert and oriented. Answers questions appropriately. Mood and affect are appropriate. Thoughts are goal oriented and rational. No tangential or magical thinking noted. Patient speaks in full sentences without needing to catch her breath. HEENT: Normocephalic atraumatic. Pupils are equally round reactive to light. Extraocular muscles are intact. Conjunctivae are moist without any icterus noted. Moist mucous membranes. Posterior pharynx shows a slightly irritated uvula, it is mildly erythematous. It is not engorged and does not appear infected. Neck is soft without any lymphadenopathy. Cardiovascular: Heart is regular rate and rhythm S1 and S2 are present without any murmurs. Lungs: Clear to auscultation bilaterally no wheezes rhonchi or rales are appreciated. Patient takes deep breaths without any discomfort. Skin: Warm, dry, intact. No obvious rashes appreciated. Const: Vital Signs, click to edit/add: Vital Signs - 24 hr 03/19/22 11:22 Temperature 98.7 F Pulse Rate [Right Pulse Oximeter] 74 Respiratory Rate 18 Blood Pressure [Ri ght Upper Arm] 149/88 H Pulse Oximetry 95 Oxygen Delivery Me thod Room Air Course Course Hospital Course: CBC was unremarkable. Triple swab was positive for COVID-19. Chest x-ray, read by me, does not show any acute infiltrates but does show bronchial thickening. Vital Signs Vital signs: Initial Vital Signs Temperature 98.7 F 03/19/22 11:22 Temperature Source Temporal Artery Scan 03/19/22 11:22 Pulse Rate 74 03/19/22 11:22 Respiratory Rate 18 03/19/22 11:22 Blood Pressure 149/88 H 03/19/22 11:22 Blood Pressure Mean 108 03/19/22 11:22 Blood Pressure Position Sitting 03/19/22 11:22 Pulse Oximetry 95 03/19/22 11:22 Oxygen Delivery Method 03/19/22 11:22 Vital Signs Temperature 98.7 F 03/19/22 11:22 Pulse Rate 74 03/19/22 11:22 Respiratory Rate 18 03/19/22 11:22 Blood Pressure 149/88 H 03/19/22 11:22 Pulse Oximetry 95 03/19/22 11:22 Oxygen Delivery Method 03/19/22 11:22 Temperature 98.7 F 03/19/22 11:22 Pulse Rate 74 03/19/22 11:22 Respiratory Rate 18 03/19/22 11:22 Blood Pressure 149/88 H 03/19/22 11:22 Pulse Oximetry 95 03/19/22 11:22 Oxygen Delivery Method 03/19/22 11:22 Medical Decision Making MDM Narrative Medical decision making narrative: 76-year-old female with COVID-19, immunocompromised. I do think she would likely benefit from Paxlovid. I looked up all of her medications through the [facility] COVID-19 ichwyocena. The only interaction I found was with atorvastatin. I also attempted to contact her oncologist or a member of her oncology team to make sure that Paxlovid would be okay with her future treatment, I was unsuccessful in getting hold of anybody. Discussed with patient that she can start taking her Paxil of it now and contact her oncologist on Monday and if they need her to stop it she can. I also looked up the patient's last GFR we have on file here and it was 68, therefore patient will be put on regular dose of the medication. Medical Records Medical records reviewed: Yes I reviewed the patient's medical records Lab Data Lab results reviewed: Yes I reviewed the patient's lab results Labs: Lab Results 03/19/22 03/19/22 03/19/22 Range/Units 11:26 11:26 12:06 WBC 8.43 (4.50-11.00) K/uL RBC 4.19 (4.00-5.20) m/uL Hgb 12.7 (12.0-16.0) gm/dL Hct 39.8 (33.0-51.0) % MCV 95 (80-100) fL MCH 30 (26-34) pg MCHC 32 (32-36) gm/dL RDW Coeff of Randee 13.1 (11.5-15.5) % Plt Count 147 (140-440) K/uL Neut % (Auto) 82.2 H (42.0-72.0) % Lymph % (Auto) 7.9 L (20-44) % Jay % (Auto) 9.5 (0.0-11.0) % Eos % (Auto) 0.2 (0.0-7.0) % Baso % (Auto) 0.0 (0.0-3.0) % Neut # (Auto) 6.90 (1.7-7.0) K/uL Lymph # (Auto) 0.70 L (0.90-2.90) K/uL Jay # (Auto) 0.80 (0.00-0.90) K/UL Eos # (Auto) 0.02 (0.00-0.50) K/uL Baso # (Auto) 0.00 (0.00-0.30) K/uL SARS-CoV-2 (PCR) POSITIVE SARS-CoV-2 A (Negative) Influenza Type A (PCR) Negative PCR FLU A (Negative) Influenza Type B (PCR) Negative PCR FLU B (Negative) RSV (PCR) Negative PCR RSV (Negative) Group A Strep DNA NOT DETECTED (Not Detectd) Imaging Data Chest x-ray: Attestation: I have reviewed the pertinent imaging results. Radiologist's impression: Single AP view chest Findings: There is hyperinflation and chronic interstitial change. There is minimal superimposed central bronchial thickening. There is no dense consolidation, effusion or pneumothorax. The cardiomediastinal silhouette is within normal limits. The bony thorax is grossly intact. Impression: Hyperinflation and chronic interstitial change with mild likely superimposed bronchial thickening. No dense consolidation. Discharge Plan Discharge Clinical Impression: COVID-19 Patient Disposition: Home, Self-Care Condition: Stable Additional Instructions: Unfortunately, I was unable to get a hold of anyone from your oncology team today. At this time we will go ahead and start you on Palovid, the medication for COVID-19. I would like for you to call your oncologist 1st thing Monday morning to make sure that this is okay with them. If they wish for you to stop it at that time you can. Also this medication does interact with your atorvastatin: Therefore stop taking atorvastatin now and restarted 3 days after you stop taking the Paxlovid. Prescriptions: New Paxlovid (EUA) 300 mg (150 mg x 2)-100 mg tablets,dose pack See Rx Instructions .ROUTE .COMPLEX Qty: 30 0RF Rx Instructions: take TWO 150 mg tablets of nirmatrelvir with ONE 100 mg tablet of ritonavir twice daily for 5 days No Action (DME) Walker- 4 Wheels [facility] See Rx Instructions .Route Qty: 1 0RF Rx Instructions: As directed oxycodone 5 mg tablet 5 mg PO TID PRN potassium chloride 10 mEq tablet extended release 10 meq PO QDAY Qty: 90 3RF oxycodone 5 mg tablet 5 mg PO TID PRN (Reason: pain) Qty: 60 0RF acyclovir 400 mg tablet 400 mg PO BID cyanocobalamin (vitamin B-12) 1,000 mcg capsule 1,000 mcg PO DAILY lisinopril 40 mg tablet 40 mg PO DAILY Label Comments: TAKE 1 TABLET BY MOUTH EVERY MORNING metformin 500 mg tablet 500 mg PO BID Label Comments: TAKE 1 TABLET BY MOUTH WITH BREAKFAST AND 2 TABLETS AT SUPPER omeprazole 20 mg capsule,delayed release(DR/EC) 20 mg PO DIRECTED Label Comments: TAKE 1 CAPSULE BY MOUTH DIRECTED FOR 3 DAYS STARTING WITH EACH DOSE OF DEXAMETHASONE Rx Instructions: take for 3 days starting with each dose of dexamethasone prochlorperazine maleate 10 mg tablet 10 mg PO Q4-6H PRN Label Comments: TAKE 1 TABLET BY MOUTH EVERY 4 TO 6 HOURS NEEDED FOR NAUSEA OR VOMITING furosemide 40 mg tablet 20 mg PO DAILY Label Comments: TAKE 1 TABLET BY MOUTH DAILY atorvastatin 20 mg tablet 20 mg PO DAILY Qty: 90 3RF Label Comments: TAKE 1 TABLET BY MOUTH DAILY atenolol 50 mg tablet 75 mg PO BID Qty: 135 2RF Label Comments: TAKE 1 AND 1/2 TABLETS BY MOUTH TWICE DAILY lorazepam 0.5 mg tablet 0.5 mg PO BID PRN (Reason: anxiety) Qty: 60 2RF Follow Up/Referrals: Dustin Briones MD [Primary Care Provider] - Stand Alone Forms: [employer] Info Instructions
== END 2022-03-19 13:42 | disposition home or self-care (01) ==
LOC: ED 13:17
PROVIDERS: Emergency Provider Family Medicine; PCP Family Medicine
DX: U07.1 COVID-19 (principal)
CPT/HCPCS: 36415; 71045; 85025; 87502; 87634; 87635; 87651; 99284

== ENCOUNTER 2022-04-15 17:13 | Emergency (ER) | payer OTHER, SELFPAY ==
[2022-04-15] VITALS (10 sets, daily range): BP systolic 160–180; BP diastolic 77–90; PULSE 61–69; RESP 16–20; TEMP 36.8; O2SAT 91–96; BMI 34.2
--- NOTE | 2022-04-15 | CRLHL7_ITS ---
For Patients: As a result of the Century Cures Act, medical imaging exams and procedure reports are released immediately into your electronic medical record. You may view this report before your referring provider. If you have questions, please contact your health care provider. INDICATION: Fall. Hit nose. TECHNIQUE: CT of the face without contrast. Coronal reconstructions are included. COMPARISON: None FINDINGS: Minimally displaced fractures bilateral nasal bones. Surrounding soft tissue swelling. The orbital contents are normal in appearance. There is no evidence for penetrating injury to the ocular globes. The lenses are situated in their normally expected anterior locations. No radiodense or metallic foreign body is demonstrated. The sinonasal cavities are clear. The nasal septum is relatively midline. Prominent right maxillary molar periapical dental disease The visualized portions of the brain are normal in appearance. IMPRESSION: 1. Minimally displaced fractures of the bilateral nasal bones with mild surrounding soft tissue swelling. No other maxillofacial bone fractures. Please note that all CT scans at this facility use dose modulation, iterative reconstruction, and/or weight-based dosing when appropriate to reduce radiation dose to as low as reasonably achievable. Dictated by Tyree Guzman MD @ 04/15/2022 7:20:46 PM (Electronically Signed)
--- NOTE | 2022-04-15 18:26 | CRLHL7_ITS ---
For Patients: As a result of the Century Cures Act, medical imaging exams and procedure reports are released immediately into your electronic medical record. You may view this report before your referring provider. If you have questions, please contact your health care provider. INDICATION: Paired hit head. TECHNIQUE: CT of the cervical spine without contrast. Coronal and sagittal reformats are included. COMPARISON: None. FINDINGS: No acute fracture or traumatic malalignment of the cervical spine. Craniocervical junction alignment is maintained. Advanced disc height loss with endplate remodeling at C3-4, C5-6 and C6-7. Mild to moderate disc degeneration elsewhere. Multilevel uncovertebral/facet arthrosis with high-grade bony neural foraminal stenosis at C3-4 on the left, and mild to moderate elsewhere. Degenerative anterolisthesis most prominent at C4-5 and C7-T1. No high grade spinal canal stenosis as far as visualized. Imaged intracranial structures, cervical and paraspinous soft tissues are normal in appearance. The visualized pulmonary apices are clear. IMPRESSION: 1. No acute fracture or traumatic malalignment of the cervical spine. Please note that all CT scans at this facility use dose modulation, iterative reconstruction, and/or weight-based dosing when appropriate to reduce radiation dose to as low as reasonably achievable. Dictated by Tyree Guzman MD @ 04/15/2022 7:13:54 PM (Electronically Signed)
--- NOTE | 2022-04-15 18:26 | CRLHL7_ITS ---
For Patients: As a result of the Century Cures Act, medical imaging exams and procedure reports are released immediately into your electronic medical record. You may view this report before your referring provider. If you have questions, please contact your health care provider. INDICATION: Fall. Hit head. TECHNIQUE: CT of the head without contrast. Coronal and sagittal reformats are included. COMPARISON: None. FINDINGS: No acute intracranial hemorrhage. No mass effect or midline shift. No hydrocephalus or extra-axial collections. Scattered white matter hypoattenuation, typical for chronic microvascular ischemic changes. Prominent arachnoid granulations along the left middle cranial fossa floor. Partially empty sella. Thick vascular calcifications carotid siphons. No acute osseous abnormalities. Hyperostosis frontalis. Mastoid air cells and paranasal sinuses are clear. Normal soft tissues. IMPRESSION: IMPRESSION: 1. No acute intracranial abnormalities. Please note that all CT scans at this facility use dose modulation, iterative reconstruction, and/or weight-based dosing when appropriate to reduce radiation dose to as low as reasonably achievable. Dictated by Tyree Guzman MD @ 04/15/2022 7:09:46 PM (Electronically Signed)
--- NOTE | 2022-04-15 18:31 | ED_ITS ---
HPI - Fall General Date Seen: 04/15/22 Chief Complaint: Fall/Minor Trauma Stated Complaint: Fall on Thinners Time Seen by Provider: 04/15/22 18:11 Source: patient Mode of arrival: ambulatory Limitations: no limitations History of Present Illness HPI Narrative: Patient is a 76-year-old female presents here after a fall, she did header/digger in her house, she tripped on the carpet. She describes no pain in her neck, she has no nausea vomiting, no numbness tingling weakness associated with this. She presents here for help with this. She has an abrasion over her nose, denies any nausea, vomiting, or any other really complaints, she has on aspirin. Lives alone. complaint: fall Onset (ago): minute(s) Fall from: standing Fall witnessed: no Place fall occurred: home Loss of consciousness: No Prolonged down time: no Symptoms prior to fall: none Context: tripped/slipped Location of injury: head and face Severity: moderate Associated symptoms (after fall): denies Related Data Home Medications Medication Instructions Recorded Confirmed acyclovir 400 mg tablet 400 mg PO BID 08/23/21 03/15/22 cyanocobalamin (vitamin B-12) 1,000 mcg PO DAILY 08/23/21 03/15/22 1,000 mcg capsule lisinopril 40 mg tablet 40 mg PO DAILY 08/23/21 03/15/22 metformin 500 mg tablet 500 mg PO BID 08/23/21 03/15/22 omeprazole 20 mg capsule,delayed 20 mg PO DIRECTED 08/23/21 03/15/22 release prochlorperazine maleate 10 mg 10 mg PO Q4-6H PRN 08/23/21 03/15/22 tablet furosemide 40 mg tablet 20 mg PO DAILY 09/30/21 03/15/22 oxycodone 5 mg tablet 5 mg PO TID PRN 12/31/21 03/15/22 Previous Rx's Medication Instructions Recorded Walker- 4 Wheels #1 ea 08/31/21 atorvastatin 20 mg tablet 20 mg PO DAILY #90 tabs 10/25/21 oxycodone 5 mg tablet 5 mg PO TID PRN pain #60 tabs 12/31/21 potassium chloride 10 mEq 10 meq PO QDAY #90 tabs 12/31/21 tablet,extended release atenolol 50 mg tablet 75 mg PO BID #135 tabs 01/03/22 lorazepam 0.5 mg tablet 0.5 mg PO BID PRN anxiety #60 tabs 01/24/22 nirmatrelvir 300 mg (150 mg See Rx Instructions PO .COMPLEX 03/19/22 x2)-ritonavir 100 mg tablet,dose #30 ea pack(EUA) (Paxlovid) Allergies Allergy/AdvReac Type Severity Reaction Status Date / Time adhesive Allergy Unknown Rash Verified 04/15/22 17:22 Review of Systems Status of ROS: Reports: 10 or more systems reviewed and unremarkable except as noted in History and below [facility] Medical History History of basal cell carcinoma (BCC) (04/2015) Surgical History History of abdominoplasty (2006) History of cholecystectomy (1996) History of tonsillectomy Family History Other Melanoma Social History Smoking Status: Former smoker Do you use any of these nicotine containing products: None Second hand tobacco smoke exposure: No How often do you have a drink containing alcohol: never How often do you have six or more drinks on one occasion: Never AUDIT-C Alcohol total score: 0 Non-prescribed substance use: denies use service: No Exam Narrative: Exam Narrative: Patient is seen in room 4, she is in no apparent distress, she has an abrasion over her nose, there is no septal hematoma nose appears otherwise straight but bruise with a little abrasion over the bridge. She was wearing glasses. Her pupils are equal round reactive to light her fundi are normal she tracks normally her TMs are normal, her neck shows no tenderness to palpation, she moves in normally. Chest is clear heart sounds are normal. Const: Vital Signs, click to edit/add: Vital Signs - 24 hr 04/15/22 17:22 04/15/22 18:11 04/15/22 18:18 Temperature 98.3 F Pulse Rate 69 Pulse Rate [Pulse Oximeter] 68 64 Respiratory Rate 20 16 Blood Pressure Blood Pressure [Ri ght Forearm] 180/77 H Blood Pressure [Ri ght Upper Arm] 168/81 H Pulse Oximetry 96 95 93 Oxygen Delivery Me thod Room Air Room Air 04/15/22 18:30 04/15/22 18:32 04/15/22 18:59 Temperature Pulse Rate 67 64 65 Pulse Rate [Pulse Oximeter] Respiratory Rate Blood Pressure 160/83 H Blood Pressure [Ri ght Forearm] Blood Pressure [Ri ght Upper Arm] Pulse Oximetry 91 95 94 Oxygen Delivery Me thod 04/15/22 19:00 04/15/22 19:02 04/15/22 19:30 Temperature Pulse Rate 67 67 61 Pulse Rate [Pulse Oximeter] Respiratory Rate Blood Pressure 167/90 H Blood Pressure [Ri ght Forearm] Blood Pressure [Ri ght Upper Arm] Pulse Oximetry 92 94 92 Oxygen Delivery Me thod 04/15/22 19:32 Temperature Pulse Rate 61 Pulse Rate [Pulse Oximeter] Respiratory Rate Blood Pressure 160/77 H Blood Pressure [Ri ght Forearm] Blood Pressure [Ri ght Upper Arm] Pulse Oximetry 94 Oxygen Delivery Me thod Documenting provider has reviewed patient's vital signs: yes Course Course Hospital Course: Discussed with patient and her son, she has abrasion, and minimally depressed nasal fracture, there appears to be no communication with the outside, we will put some bacitracin there are lower to go home, she will use some ice and some Tylenol. CTs of her head, cervical spine, and face are otherwise normal. Vital Signs Vital signs: Initial Vital Signs Temperature 98.3 F 04/15/22 17:22 Temperature Source Temporal Artery Scan 04/15/22 17:22 Pulse Rate 68 04/15/22 17:22 Pulse Rhythm 04/15/22 17:22 Respiratory Rate 20 04/15/22 17:22 Blood Pressure 180/77 H 04/15/22 17:22 Blood Pressure Mean 111 04/15/22 17:22 Blood Pressure Position Sitting 04/15/22 17:22 Pulse Oximetry 96 04/15/22 17:22 Oxygen Delivery Method 04/15/22 17:22 Vital Signs Temperature 98.3 F 04/15/22 17:22 Pulse Rate 68 04/15/22 17:22 Respiratory Rate 20 04/15/22 17:22 Blood Pressure 180/77 H 04/15/22 17:22 Pulse Oximetry 96 04/15/22 17:22 Oxygen Delivery Method 04/15/22 17:22 Temperature 98.3 F 04/15/22 17:22 Pulse Rate 61 04/15/22 19:32 Respiratory Rate 16 04/15/22 18:11 Blood Pressure 160/77 H 04/15/22 19:32 Pulse Oximetry 94 04/15/22 19:32 Oxygen Delivery Method 04/15/22 18:11 MDM - Fall MDM Narrative Medical decision making narrative: Life-threatening differential diagnosis is considered include: Subarachnoid hemorrhage, subdural hemorrhage, epidural hemorrhage. Other differential diagnosis considered include concussion, closed head injury, or neck fracture. Medical Records Attestation: I reviewed the patient's medical records. Imaging Data CT- Other: Attestation: I have reviewed the pertinent imaging results. Radiologist's impression: atient: KYLE GREGG Facility:?[facility] Patient ID:?[id number] Site Patient ID:?[id number]. Site :?[id number] Study:?CT Head W/O-04/15/2022 6:41:35 PM Ordering Physician:Billy Castillo Final Report: INDICATION: Fall. Hit head. TECHNIQUE: CT of the head without contrast. Coronal and sagittal reformats are included. COMPARISON: None. FINDINGS: No acute intracranial hemorrhage. No mass effect or midline shift. No hydrocephalus or extra-axial collections. Scattered white matter hypoattenuation, typical for chronic microvascular ischemic changes. Prominent arachnoid granulations along the left middle cranial fossa floor. Partially empty sella. Thick vascular calcifications carotid siphons. No acute osseous abnormalities. Hyperostosis frontalis. Mastoid air cells and paranasal sinuses are clear. Normal soft tissues. IMPRESSION: IMPRESSION: 1. No acute intracranial abnormalities. Please note that all CT scans at this facility use dose modulation, iterative reconstruction, and/or weight-based dosing when appropriate to reduce radiation dose to as low as reasonably achievable. Dictated by Tyree Guzman MD @ 04/15/2022 7:09:46 PM (Electronic Signature) Patient: KYLE GREGG Facility:?[facility] Patient ID:?[id number] Site Patient ID:?[id number]. Site :?[id number] Study:?CT Head W/O-04/15/2022 6:41:35 PM Ordering Physician:Billy Castillo Final Report: INDICATION: Fall. Hit head. TECHNIQUE: CT of the head without contrast. Coronal and sagittal reformats are included. COMPARISON: None. FINDINGS: No acute intracranial hemorrhage. No mass effect or midline shift. No hydrocephalus or extra-axial collections. Scattered white matter hypoattenuation, typical for chronic microvascular ischemic changes. Prominent arachnoid granulations along the left middle cranial fossa floor. Partially empty sella. Thick vascular calcifications carotid siphons. No acute osseous abnormalities. Hyperostosis frontalis. Mastoid air cells and paranasal sinuses are clear. Normal soft tissues. IMPRESSION: IMPRESSION: 1. No acute intracranial abnormalities. Please note that all CT scans at this facility use dose modulation, iterative reconstruction, and/or weight-based dosing when appropriate to reduce radiation dose to as low as reasonably achievable. Dictated by Tyree Guzman MD @ 04/15/2022 7:09:46 PM (Electronic Signature) Patient: KYLE GREGG Facility:?[facility] Patient ID:?[id number] Site Patient ID:?[id number]. Site :?[id number] Study:?CT Spine Cervical W/O-04/15/2022 6:42:12 PM Ordering Physician:Billy Castillo Final Report: INDICATION: Paired hit head. TECHNIQUE: CT of the cervical spine without contrast. Coronal and sagittal reformats are included. COMPARISON: None. FINDINGS: No acute fracture or traumatic malalignment of the cervical spine. Craniocervical junction alignment is maintained. Advanced disc height loss with endplate remodeling at C3-4, C5-6 and C6-7. Mild to moderate disc degeneration elsewhere. Multilevel uncovertebral/facet arthrosis with high-grade bony neural foraminal stenosis at C3-4 on the left, and mild to moderate elsewhere. Degenerative anterolisthesis most prominent at C4-5 and C7-T1. No high grade spinal canal stenosis as far as visualized. Imaged intracranial structures, cervical and paraspinous soft tissues are normal in appearance. The visualized pulmonary apices are clear. IMPRESSION: 1. No acute fracture or traumatic malalignment of the cervical spine. Please note that all CT scans at this facility use dose modulation, iterative reconstruction, and/or weight-based dosing when appropriate to reduce radiation dose to as low as reasonably achievable. Dictated by Tyree Guzman MD @ 04/15/2022 7:13:54 PM (Electronic Signature) Discharge Plan Discharge Clinical Impression: Closed fracture nasal bone, Abrasion Patient Disposition: Home w/ Parent or Adult Condition: Improved Instructions: Nasal Fracture (ED), Head Injury (ED), Bone Bruise (ED) Additional Instructions: Home, rest. Bacitracin to the nasal wound. Tylenol for the discomfort. Follow-up as needed. Please use your walker!!! Prescriptions: No Action (DME) Walker- 4 Wheels Misc See Rx Instructions .Route Qty: 1 0RF Rx Instructions: As directed oxycodone 5 mg tablet 5 mg PO TID PRN potassium chloride 10 mEq tablet extended release 10 meq PO QDAY Qty: 90 3RF oxycodone 5 mg tablet 5 mg PO TID PRN (Reason: pain) Qty: 60 0RF Paxlovid (EUA) 300 mg (150 mg x 2)-100 mg tablets,dose pack See Rx Instructions .ROUTE .COMPLEX Qty: 30 0RF Rx Instructions: take TWO 150 mg tablets of nirmatrelvir with ONE 100 mg tablet of ritonavir twice daily for 5 days acyclovir 400 mg tablet 400 mg PO BID cyanocobalamin (vitamin B-12) 1,000 mcg capsule 1,000 mcg PO DAILY lisinopril 40 mg tablet 40 mg PO DAILY Label Comments: TAKE 1 TABLET BY MOUTH EVERY MORNING metformin 500 mg tablet 500 mg PO BID Label Comments: TAKE 1 TABLET BY MOUTH WITH BREAKFAST AND 2 TABLETS AT SUPPER omeprazole 20 mg capsule,delayed release(DR/EC) 20 mg PO DIRECTED Label Comments: TAKE 1 CAPSULE BY MOUTH DIRECTED FOR 3 DAYS STARTING WITH EACH DOSE OF DEXAMETHASONE Rx Instructions: take for 3 days starting with each dose of dexamethasone prochlorperazine maleate 10 mg tablet 10 mg PO Q4-6H PRN Label Comments: TAKE 1 TABLET BY MOUTH EVERY 4 TO 6 HOURS NEEDED FOR NAUSEA OR VOMITING furosemide 40 mg tablet 20 mg PO DAILY Label Comments: TAKE 1 TABLET BY MOUTH DAILY atorvastatin 20 mg tablet 20 mg PO DAILY Qty: 90 3RF Label Comments: TAKE 1 TABLET BY MOUTH DAILY atenolol 50 mg tablet 75 mg PO BID Qty: 135 2RF Label Comments: TAKE 1 AND 1/2 TABLETS BY MOUTH TWICE DAILY lorazepam 0.5 mg tablet 0.5 mg PO BID PRN (Reason: anxiety) Qty: 60 2RF Follow Up/Referrals: Dustin Briones MD [Primary Care Provider] - Stand Alone Forms: [employer] Info Instructions
[2022-04-15] MEDS: ACETAMINOPHEN 500 MG TABLET 1000 MG PO (18:32)
[2022-04-15] MEDS: TETANUS/DIPHTH/PERTUSSIS 0.5 ML SYRINGE IM (20:15)
== END 2022-04-15 20:23 | disposition home or self-care (01) ==
PROVIDERS: Emergency Provider Family Medicine; PCP Family Medicine
DX: S02.2XXA Fracture of nasal bones, initial encounter for closed fracture (principal); W18.09XA Striking against other object with subsequent fall, initial encounter
CPT/HCPCS: 70450; 70486; 72125; 90471; 90715; 99283; 99284; A9270

== ENCOUNTER 2022-07-03 12:23 | Emergency (ER) | payer OTHER, SELFPAY ==
[2022-07-03 12:25] VITALS: BP 200/73; PULSE 50; RESP 18; TEMP 36.3; O2SAT 99; BMI 33.3
--- NOTE | 2022-07-03 12:47 | ED.GENADULT ---
HPI - General Adult General Chief complaint: Allergic Reaction Stated complaint: Allergic reaction Time Seen by Provider: 07/03/22 12:24 History of Present Illness HPI narrative: Patient is a 76 year white female that is had a history of bone marrow transplant has multiple myeloma, has been on a chemotherapy agent for that. She tried some Reyna K lotion and it caused a rash on her face been present for about 3 days. She has no throat swelling no tongue swelling, no breathing difficulty. She has had some skin sensitivity in the past. Does not feel any chest Related Data Home Medications Medication Instructions Recorded Confirmed acyclovir 400 mg tablet 400 mg PO BID 08/23/21 03/15/22 cyanocobalamin (vitamin B-12) 1,000 mcg PO DAILY 08/23/21 03/15/22 1,000 mcg capsule omeprazole 20 mg capsule,delayed 20 mg PO DIRECTED 08/23/21 03/15/22 release prochlorperazine maleate 10 mg 10 mg PO Q4-6H PRN 08/23/21 03/15/22 tablet furosemide 40 mg tablet 20 mg PO DAILY 09/30/21 03/15/22 oxycodone 5 mg tablet 5 mg PO TID PRN 12/31/21 03/15/22 Previous Rx's Medication Instructions Recorded Walker- 4 Wheels #1 ea 08/31/21 atorvastatin 20 mg tablet 20 mg PO DAILY #90 tabs 10/25/21 oxycodone 5 mg tablet 5 mg PO TID PRN pain #60 tabs 12/31/21 potassium chloride 10 mEq 10 meq PO QDAY #90 tabs 12/31/21 tablet,extended release atenolol 50 mg tablet 75 mg (1.5 x 50 mg) PO BID #135 01/03/22 tabs nirmatrelvir 300 mg (150 mg See Rx Instructions PO .COMPLEX 03/19/22 x2)-ritonavir 100 mg tablet,dose #30 ea pack(EUA) (Paxlovid) lisinopril 40 mg tablet See Rx Instructions .Route 04/25/22 .COMPLEX #90 tabs metformin 500 mg tablet See Rx Instructions .Route 04/25/22 .COMPLEX #270 tabs lorazepam 0.5 mg tablet 0.5 mg PO BID PRN anxiety #60 tabs 06/02/22 Allergies Allergy/AdvReac Type Severity Reaction Status Date / Time adhesive Allergy Unknown Rash Verified 04/15/22 17:22 Review of Systems Status of ROS: Reports: 6 or more systems reviewed and unremarkable except as noted in History and below [facility] Medical History History of basal cell carcinoma (BCC) (04/2015) ?Z85.828 - Personal history of other malignant neoplasm of skin (ICD-10) Surgical History History of tonsillectomy ?Z90.89 - Acquired absence of other organs (ICD-10) History of cholecystectomy (1996) ?Z90.49 - Acquired absence of other specified parts of digestive tract (ICD-10) History of abdominoplasty (2006) ?Z98.890 - Other specified postprocedural states (ICD-10) Family History Other Melanoma Social History Smoking Status: Former smoker Do you use any of these nicotine containing products: None Second hand tobacco smoke exposure: No How often do you have a drink containing alcohol: never How often do you have six or more drinks on one occasion: Never AUDIT-C Alcohol total score: 0 Non-prescribed substance use: denies use service: No Exam Narrative: Exam Narrative: Objective: Patient's blood pressure is elevated this will be retested She has a allergic-type rash about her face mostly her maxillary area of her forehead where she put the lotion. Does not involve the eyes. Or does not involve the eyelids. Her mouth is clear Pulses regular Const: Vital Signs, click to edit/add: Vital Signs - 24 hr 07/03/22 12:25 Temperature 97.4 F L Pulse Rate [Right Pulse Oximeter] 50 L Respiratory Rate 18 Blood Pressure [Ri ght Upper Arm] 200/73 H Pulse Oximetry 99 Oxygen Delivery Me thod Room Air Course Vital Signs Vital signs: Initial Vital Signs Temperature 97.4 F L 07/03/22 12:25 Temperature Source Temporal Artery Scan 07/03/22 12:25 Pulse Rate 50 L 07/03/22 12:25 Respiratory Rate 18 07/03/22 12:25 Blood Pressure 200/73 H 07/03/22 12:25 Blood Pressure Mean 115 H 07/03/22 12:25 Blood Pressure Position Sitting 07/03/22 12:25 Pulse Oximetry 99 07/03/22 12:25 Oxygen Delivery Method Room Air 07/03/22 12:25 Vital Signs Temperature 97.4 F L 07/03/22 12:25 Pulse Rate 50 L 07/03/22 12:25 Respiratory Rate 18 07/03/22 12:25 Blood Pressure 200/73 H 07/03/22 12:25 Pulse Oximetry 99 07/03/22 12:25 Oxygen Delivery Method Room Air 07/03/22 12:25 Temperature 97.4 F L 07/03/22 12:25 Pulse Rate 50 L 07/03/22 12:25 Respiratory Rate 18 07/03/22 12:25 Blood Pressure 200/73 H 07/03/22 12:25 Pulse Oximetry 99 07/03/22 12:25 Oxygen Delivery Method Room Air 07/03/22 12:25 Medical Decision Making MDM Narrative Medical decision making narrative: Patient appears to have a localized reaction to a topical lotion she used. Would recommend just using water to clean her face, would recommend Benadryl which she is allowed to take given her transplant. Will give her 25 mg here. Take 25 t.i.d. times next 5 days. After few days if this is improving would recommend she could start trying Vaseline cream that she has used before and that helped her and it has been non irritating. She sees Dr. Domingo in [place] and recommend rechecking with him in the next couple of days if there is any concern or question problems or concerns. Follow up sooner if any difficulty breathing or other issues Discharge Plan Discharge Clinical Impression: Facial rash Allergic reaction Qualifiers: Qualified Code(s): T78.40XA - Allergy, unspecified, initial encounter Patient Disposition: Home w/ Parent or Adult Condition: Stable Instructions: General Allergic Reaction (ED) Additional Instructions: Only water to the face for now, Benadryl 25 mg t.i.d. x5 days, follow-up with Dr. blanc couple of days not improving or changes or worsening. Return to ED problems or concerns Activity Level: Light activity Discharge Diet: Regular Prescriptions: No Action (DME) Walker- 4 Wheels Misc See Rx Instructions .Route Qty: 1 0RF Rx Instructions: As directed oxycodone 5 mg tablet 5 mg PO TID PRN potassium chloride 10 mEq tablet extended release 10 meq PO QDAY Qty: 90 3RF oxycodone 5 mg tablet 5 mg PO TID PRN (Reason: pain) Qty: 60 0RF Paxlovid (EUA) 300 mg (150 mg x 2)-100 mg tablets,dose pack See Rx Instructions .ROUTE .COMPLEX Qty: 30 0RF Rx Instructions: take TWO 150 mg tablets of nirmatrelvir with ONE 100 mg tablet of ritonavir twice daily for 5 days acyclovir 400 mg tablet 400 mg PO BID cyanocobalamin (vitamin B-12) 1,000 mcg capsule 1,000 mcg PO DAILY omeprazole 20 mg capsule,delayed release(DR/EC) 20 mg PO DIRECTED Patient Comments: TAKE 1 CAPSULE BY MOUTH DIRECTED FOR 3 DAYS STARTING WITH EACH DOSE OF DEXAMETHASONE Rx Instructions: take for 3 days starting with each dose of dexamethasone prochlorperazine maleate 10 mg tablet 10 mg PO Q4-6H PRN Patient Comments: TAKE 1 TABLET BY MOUTH EVERY 4 TO 6 HOURS NEEDED FOR NAUSEA OR VOMITING furosemide 40 mg tablet 20 mg PO DAILY Patient Comments: TAKE 1 TABLET BY MOUTH DAILY atorvastatin 20 mg tablet 20 mg PO DAILY Qty: 90 3RF Patient Comments: TAKE 1 TABLET BY MOUTH DAILY atenolol 50 mg tablet 75 mg PO BID Qty: 135 2RF Patient Comments: TAKE 1 AND 1/2 TABLETS BY MOUTH TWICE DAILY metformin 500 mg tablet See Rx Instructions .ROUTE .COMPLEX Qty: 270 3RF Dose Instruction: TAKE 1 TABLET BY MOUTH WITH BREAKFAST AND 2 TABLETS AT SUPPER Rx Instructions: TAKE 1 TABLET BY MOUTH WITH BREAKFAST AND 2 TABLETS AT SUPPER lisinopril 40 mg tablet See Rx Instructions .ROUTE .COMPLEX Qty: 90 3RF Dose Instruction: TAKE 1 TABLET BY MOUTH EVERY MORNING AND 20MG AT BEDTIME, TOTAL 60MG PER DAY. Rx Instructions: TAKE 1 TABLET BY MOUTH EVERY MORNING AND 20MG AT BEDTIME, TOTAL 60MG PER DAY. lorazepam 0.5 mg tablet 0.5 mg PO BID PRN (Reason: anxiety) Qty: 60 2RF Follow Up/Referrals: Dustin Blanc MD [Primary Care Provider] - Stand Alone Forms: Rac[facility] Info Instructions
[2022-07-03] MEDS: diphenhydrAMINE 25 MG CAPSULE PO (12:59)
== END 2022-07-03 13:28 | disposition home or self-care (01) ==
LOC: ED 13:03
PROVIDERS: Emergency Provider Family Medicine; PCP Family Medicine
DX: R21 Rash and other nonspecific skin eruption (principal); T78.40XA Allergy, unspecified, initial encounter
CPT/HCPCS: 99283; A9270

== ENCOUNTER 2022-08-16 09:03 | Emergency (ER) | payer OTHER, SELFPAY ==
[2022-08-16 09:08] VITALS: BP 172/83; PULSE 68; RESP 20; TEMP 36.9; O2SAT 96; BMI 32.9
--- NOTE | 2022-08-16 09:21 | ED.GENADULT ---
HPI - General Adult General Time Seen by Provider: 09:21 Date Seen: 08/16/22 Chief complaint: Ear/Nose/Throat Problem Stated complaint: left ear pain, cold symptoms Time Seen by Provider: 08/16/22 09:21 Source: patient and RN notes reviewed Mode of arrival: ambulatory Limitations: no limitations History of Present Illness HPI narrative: Keysha is a 76-year-old female ambulatory into the ED with concern of worsening cold symptoms and plugged left ear. She has had cough and cold symptoms for about 3 weeks, were starting to get better but then seemingly worsened. In the last couple days, has noticed left ear plugging, had left ear pain yesterday but just feels plugged today. She is hearing echoes in the ear, muffled sounds but no pain today. Yesterday she had a temperature of 99.9?. Her cough is also worsening, nonproductive. She is not really short of breath, no chest pain. No history of asthma or COPD. She does have a history of multiple myeloma and had a bone marrow transplant, she did achieve remission. She states she becomes anxious with medical issues and being ill. Related Data Home Medications Medication Instructions Recorded Confirmed acyclovir 400 mg tablet 400 mg PO BID 08/23/21 03/15/22 cyanocobalamin (vitamin B-12) 1,000 mcg PO DAILY 08/23/21 03/15/22 1,000 mcg capsule omeprazole 20 mg capsule,delayed 20 mg PO DIRECTED 08/23/21 03/15/22 release prochlorperazine maleate 10 mg 10 mg PO Q4-6H PRN 08/23/21 03/15/22 tablet furosemide 40 mg tablet 20 mg PO DAILY 09/30/21 03/15/22 oxycodone 5 mg tablet 5 mg PO TID PRN 12/31/21 03/15/22 acyclovir 200 mg capsule mg PO BID 08/16/22 aspirin 325 mg capsule 325 mg PO DAILY 08/16/22 08/16/22 hydrocortisone 2.5 % topical cream applic topical 08/16/22 lenalidomide 10 mg capsule PO 08/16/22 (Revlimid) magnesium chloride 71.5 mg 143 mg PO QAM 08/16/22 08/16/22 (magnesium chloride) tablet,delayed release (Slow-Mag) penicillin V potassium 500 mg 500 mg PO BID 08/16/22 08/16/22 tablet Previous Rx's Medication Instructions Recorded Walker- 4 Wheels #1 ea 08/31/21 atorvastatin 20 mg tablet 20 mg PO DAILY #90 tabs 10/25/21 oxycodone 5 mg tablet 5 mg PO TID PRN pain #60 tabs 12/31/21 potassium chloride 10 mEq 10 meq PO QDAY #90 tabs 12/31/21 tablet,extended release atenolol 50 mg tablet 75 mg (1.5 x 50 mg) PO BID #135 01/03/22 tabs nirmatrelvir 300 mg (150 mg See Rx Instructions PO .COMPLEX 03/19/22 x2)-ritonavir 100 mg tablet,dose #30 ea pack (Paxlovid) lisinopril 40 mg tablet See Rx Instructions .Route 04/25/22 .COMPLEX #90 tabs metformin 500 mg tablet See Rx Instructions .Route 04/25/22 .COMPLEX #270 tabs lorazepam 0.5 mg tablet 0.5 mg PO BID PRN anxiety #60 tabs 06/02/22 amoxicillin 875 mg tablet 875 mg PO BID #14 tabs 08/16/22 Allergies Allergy/AdvReac Type Severity Reaction Status Date / Time adhesive Allergy Unknown Rash Verified 04/15/22 17:22 Review of Systems Status of ROS: Reports: 6 or more systems reviewed and unremarkable except as noted in History and below [facility] Medical History History of basal cell carcinoma (BCC) (04/2015) ?Z85.828 - Personal history of other malignant neoplasm of skin (ICD-10) Surgical History History of tonsillectomy ?Z90.89 - Acquired absence of other organs (ICD-10) History of cholecystectomy (1996) ?Z90.49 - Acquired absence of other specified parts of digestive tract (ICD-10) History of abdominoplasty (2006) ?Z98.890 - Other specified postprocedural states (ICD-10) Family History Other Melanoma Social History Smoking Status: Former smoker Do you use any of these nicotine containing products: None Second hand tobacco smoke exposure: No How often do you have a drink containing alcohol: never How often do you have six or more drinks on one occasion: Never AUDIT-C Alcohol total score: 0 Non-prescribed substance use: denies use service: No Exam Const: Vital Signs, click to edit/add: Vital Signs - 24 hr 08/16/22 09:08 08/16/22 09:35 Temperature 98.5 F Pulse Rate [Pulse Oximeter] 68 Respiratory Rate 20 Blood Pressure [Ri ght Upper Arm] 172/83 H Pulse Oximetry 96 94 Oxygen Delivery Me thod Room Air Documenting provider has reviewed patient's vital signs: yes Common normals: no apparent distress, average body habitus, oriented x3, no limitations, healthy appearing, alert and well nourished General appearance: cooperative, comfortable, well kempt and well developed Nutritional appearance: overweight HENMT: Common normals: normocephalic, head/scalp atraumatic, hearing grossly normal bilaterally, external ears normal, external nose normal, nasal mucous membranes and turbinates normal, moist oral mucous membranes, oropharynx normal, dentition normal and gingiva normal Head and scalp: normocephalic and atraumatic Face and sinus: normal facial exam Nose: external nose normal and nasal mucous membranes and turbinates normal External ear: external ears normal Other: Has some fluid an very minimal pinkish change but still with light reflects of the left tympanic membrane. Right tympanic membrane is normal. Eye: Common normals: PERRL, EOMs intact bilaterally, conjunctivae normal and no scleral icterus Conjunctiva: conjunctiva(e) normal Pupil: PERRL Neck & C-Spine: Common normals: full ROM, no lymphadenopathy, supple, no meningeal signs, no JVD and thyroid normal Thyroid: thyroid normal Resp: Common normals: normal respiratory effort, no retractions and no use of accessory muscles Other: Clear to auscultation with the exception of a rhonchi heard left lung base, did seem to clear after she coughed. Cardio: Common normals: no JVD, regular rate, regular rhythm, S1 normal heart sound, S2 normal heart sound, no gallops, no clicks, no murmurs and no rub Rate: regular rate Rhythm: regular rhythm Heart sounds: S1 normal and S2 normal Extremity: Common normals: no calf tenderness and no pedal edema Neuro: Common normals: oriented x3 Sensorium/orientation: alert Meningeal signs: no meningeal signs Psych: Appearance: well kempt Course Course Hospital Course: Reviewed with patient that we will proceed with chest x-ray and some basic labs. She certainly has fluid on the left ear, given the chronicity of her symptoms in the acute worsening, do believe that antibiotics may be indicated. With her history, do feel it is prudent to look least look at a basic chest x-ray and some basic blood work. She agrees. Given that she has been sick for 3 weeks, do not feel that COVID testing is indicated. Reevaluation(s) Time of Reevaluation #1: 11:08 Reevaluation #1: Have reviewed normal chest x-ray with patient. Did give her written values of her cell counts, reviewed specifically that the white blood count was mildly low and platelets were low. She is on Revlimid. She will text her band instrument repairer. As far as her cough, likely post viral but given that she is developing more left ear symptoms, will cover with basic antibiotic amoxicillin. She is likely developing an ear infection in this left ear given the symptoms she is experiencing including intermittent otalgia. Vital Signs Vital signs: Initial Vital Signs Temperature 98.5 F 08/16/22 09:08 Temperature Source Temporal Artery Scan 08/16/22 09:08 Pulse Rate 68 08/16/22 09:08 Respiratory Rate 20 08/16/22 09:08 Blood Pressure 172/83 H 08/16/22 09:08 Blood Pressure Mean 112 H 08/16/22 09:08 Blood Pressure Position Sitting 08/16/22 09:08 Pulse Oximetry 96 08/16/22 09:08 Oxygen Delivery Method Room Air 08/16/22 09:08 Vital Signs Temperature 98.5 F 08/16/22 09:08 Pulse Rate 68 08/16/22 09:08 Respiratory Rate 20 08/16/22 09:08 Blood Pressure 172/83 H 08/16/22 09:08 Pulse Oximetry 96 08/16/22 09:08 Oxygen Delivery Method Room Air 08/16/22 09:08 Temperature 98.5 F 08/16/22 09:08 Pulse Rate 68 08/16/22 09:08 Respiratory Rate 20 08/16/22 09:08 Blood Pressure 172/83 H 08/16/22 09:08 Pulse Oximetry 94 08/16/22 09:35 Oxygen Delivery Method Room Air 08/16/22 09:08 Medical Decision Making Lab Data Labs: Lab Results 08/16/22 Range/Units 09:47 WBC 2.48 L (4.50-11.00) K/uL RBC 4.30 (4.00-5.20) m/uL Hgb 12.2 (12.0-16.0) gm/dL Hct 40.3 (33.0-51.0) % MCV 94 (80-100) fL MCH 28 (26-34) pg MCHC 30 L (32-36) gm/dL RDW Coeff of Randee 15.7 H (11.5-15.5) % Plt Count 92 L (140-440) K/uL Neut % (Auto) 65.4 (42.0-72.0) % Lymph % (Auto) 16.9 L (20-44) % Dewitt % (Auto) 10.9 (0.0-11.0) % Eos % (Auto) 5.6 (0.0-7.0) % Baso % (Auto) 0.8 (0.0-3.0) % Neut # (Auto) 1.60 L (1.7-7.0) K/uL Lymph # (Auto) 0.40 L (0.90-2.90) K/uL Dewitt # (Auto) 0.30 (0.00-0.90) K/UL Eos # (Auto) 0.10 (0.00-0.50) K/uL Baso # (Auto) 0.00 (0.00-0.30) K/uL Imaging Data Chest x-ray: Attestation: I have reviewed the pertinent imaging results. My impression: I see no acute pathology on my preliminary review. Radiologist's impression: Patient: KEYSHA GREGG Facility:?[facility] Patient ID:?[id number] Site Patient ID:?[id number]. Site :?[id number] Study:?XRay Chest 1 view-08/16/2022 9:40:33 AM Ordering Physician:Alfredo Ward Final Report: INDICATION: Cough. Generalized illness for 3 weeks. TECHNIQUE: AP portable seated chest x-ray. COMPARISON : March 19, 2022. FINDINGS: Calcified granuloma right upper lobe of the lung versus a blood vessel on end. Clear left lung. Normal heart size and pulmonary vascularity. Degenerative arthritis of the shoulders. IMPRESSION: No acute cardiopulmonary process identified. No change. Dictated by Derek West MD @ 08/16/2022 10:11:56 AM (Electronic Signature) Discharge Plan Discharge Clinical Impression: Acute upper respiratory infection, Otitis media Patient Disposition: Home, Self-Care Condition: Stable Instructions: Ear Infection (ED), Upper Respiratory Infection (ED) Additional Instructions: Start amoxicillin and take as prescribed for your left ear. Can use [id number] medicines as needed for cough and cold symptoms. Text your band instrument repairer your current lab values. May use Tylenol per bottle directions for discomfort in the left ear. If your cough/cold symptoms, ear symptoms are worsening instead of improving over the next week, have further concerns, do recommend re-evaluation. Activity Level: Activity as Tolerated Prescriptions: New amoxicillin 875 mg tablet 875 mg PO BID Qty: 14 0RF No Action (DME) [place] [facility] [place] Instructions .Route Qty: 1 0RF Rx Instructions: As directed oxycodone 5 mg tablet 5 mg PO TID PRN potassium chloride 10 mEq tablet extended release 10 meq PO QDAY Qty: 90 3RF oxycodone 5 mg tablet 5 mg PO TID PRN (Reason: pain) Qty: 60 0RF Paxlovid 300 mg (150 mg x 2)-100 mg tablets,dose pack See Rx Instructions .ROUTE .COMPLEX Qty: 30 0RF Rx Instructions: take TWO 150 mg tablets of nirmatrelvir with ONE 100 mg tablet of ritonavir twice daily for 5 days acyclovir 400 mg tablet 400 mg PO BID cyanocobalamin (vitamin B-12) 1,000 mcg capsule 1,000 mcg PO DAILY omeprazole 20 mg capsule,delayed release(DR/EC) 20 mg PO DIRECTED Patient Comments: TAKE 1 CAPSULE BY MOUTH DIRECTED FOR 3 DAYS STARTING WITH EACH DOSE OF DEXAMETHASONE Rx Instructions: take for 3 days starting with each dose of dexamethasone prochlorperazine maleate 10 mg tablet 10 mg PO Q4-6H PRN Patient Comments: TAKE 1 TABLET BY MOUTH EVERY 4 TO 6 HOURS NEEDED FOR NAUSEA OR VOMITING furosemide 40 mg tablet 20 mg PO DAILY Patient Comments: TAKE 1 TABLET BY MOUTH DAILY penicillin V potassium 500 mg tablet 500 mg PO BID hydrocortisone 2.5 % cream topical acyclovir 200 mg capsule PO BID lenalidomide [Revlimid] 10 mg capsule PO Slow-Mag 71.5 mg tablet,delayed release (DR/EC) 143 mg PO QAM aspirin 325 mg capsule 325 mg PO DAILY atorvastatin 20 mg tablet 20 mg PO DAILY Qty: 90 3RF Patient Comments: TAKE 1 TABLET BY MOUTH DAILY atenolol 50 mg tablet 75 mg PO BID Qty: 135 2RF Patient Comments: TAKE 1 AND 1/2 TABLETS BY MOUTH TWICE DAILY metformin 500 mg tablet See Rx Instructions .ROUTE .COMPLEX Qty: 270 3RF Dose Instruction: TAKE 1 TABLET BY MOUTH WITH BREAKFAST AND 2 TABLETS AT SUPPER Rx Instructions: TAKE 1 TABLET BY MOUTH WITH BREAKFAST AND 2 TABLETS AT SUPPER lisinopril 40 mg tablet See Rx Instructions .ROUTE .COMPLEX Qty: 90 3RF Dose Instruction: TAKE 1 TABLET BY MOUTH EVERY MORNING AND 20MG AT BEDTIME, TOTAL 60MG PER DAY. Rx Instructions: TAKE 1 TABLET BY MOUTH EVERY MORNING AND 20MG AT BEDTIME, TOTAL 60MG PER DAY. lorazepam 0.5 mg tablet 0.5 mg PO BID PRN (Reason: anxiety) Qty: 60 2RF Follow Up/Referrals: Dustin Briones MD [Primary Care Provider] - Stand Alone Forms: [facility] Info Instructions
--- NOTE | 2022-08-16 09:26 | CRLHL7_ITS ---
For Patients: As a result of the Cures Act, medical imaging exams and procedure reports are released immediately into your electronic medical record. You may view this report before your referring provider. If you have questions, please contact your health care provider. INDICATION: Cough. Generalized illness for 3 weeks. TECHNIQUE: AP portable seated chest x-ray. COMPARISON : March 19, 2022. FINDINGS: Calcified granuloma right upper lobe of the lung versus a blood vessel on end. Clear left lung. Normal heart size and pulmonary vascularity. Degenerative arthritis of the shoulders. IMPRESSION: No acute cardiopulmonary process identified. No change. Dictated by Derek West MD @ 08/16/2022 10:11:56 AM (Electronically Signed)
[2022-08-16 09:35] VITALS: O2SAT 94
[2022-08-16 09:55] LABS: Basophils Percent Auto 0.8 % (0.0-3.0); Eosinophils Percent Auto 5.6 % (0.0-7.0); Hematocrit 40.3 % (33.0-51.0); Hemoglobin* 12.2 gm/dL (12.0-16.0); Immature Granulocytes Pct Auto 0.4 %; Lymphocytes Percent Auto 16.9 % (20-44); Mean Corpuscular HGB Conc 30 gm/dL (32-36); Mean Corpuscular Hemoglobin 28 pg (26-34); Mean Corpuscular Volume 94 fL (80-100); Monocytes Percent Auto 10.9 % (0.0-11.0); Neutrophils Percent Auto 65.4 % (42.0-72.0); Platelet Count* 92 K/uL (140-440); RDW Coefficient of Variation % 15.7 % (11.5-15.5); White Blood Count* 2.48 K/uL (4.50-11.00)
[2022-08-16 10:00] LABS: Slide Review Reflex No
== END 2022-08-16 11:20 | disposition home or self-care (01) ==
PROVIDERS: Emergency Provider Family Medicine; PCP Family Medicine
DX: J06.9 Acute upper respiratory infection, unspecified (principal); H66.92 Otitis media, unspecified, left ear
CPT/HCPCS: 36415; 71045; 85025; 94761; 99284

== ENCOUNTER 2022-08-18 10:24 | Emergency (ER) | payer OTHER, SELFPAY ==
[2022-08-18 10:36] VITALS: BP 203/91; PULSE 65; RESP 24; TEMP 37.5; O2SAT 94; BMI 32.9
--- NOTE | 2022-08-18 11:27 | CRLHL7_ITS ---
For Patients: As a result of the Century Cures Act, medical imaging exams and procedure reports are released immediately into your electronic medical record. You may view this report before your referring provider. If you have questions, please contact your health care provider. INDICATION: Left neck/cheek swelling. TECHNIQUE: CT of the neck with 89 cc 370 iodinated contrast agent. Coronal and sagittal reconstructions are included. COMPARISON: Facial CT from 04/15/2022. FINDINGS: There is asymmetric enlargement and hyper enhancement involving the left parotid gland substance. There is extensive surrounding inflammatory changes within the face. No radiodense sialolith. Findings overall compatible with parotitis. The oral cavity, nasopharyngeal, oropharyngeal and hypopharyngeal spaces are normal. The supraglottic, glottic and infraglottic larynx are normal. The airway including the trachea is normal and is patent. The parotid glands, submandibular and sublingual glands are normal in appearance. The thyroid gland is normal in appearance. The vascular structures opacify normally with contrast material. No suspicious lytic or blastic osseous lesions. Advanced disc degeneration C3-4, C5-6 and C6-7. Mild to moderate disc degeneration elsewhere. Multilevel uncovertebral/facet arthrosis with high-grade neural foraminal stenosis at C3-4 on the left, C4-5 on the right, C5-6 on the right and C6-7 on the left. [id number] elsewhere. Moderate maxillary sinus mucosal thickening. Right maxillary molar periapical dental disease. Visualized orbital and intracranial contents are normal. Supraclavicular regions, mediastinum and soft tissues of the imaged chest wall are normal. Calcified granuloma right anterior lung. IMPRESSION: 1. Findings compatible with left-sided parotitis and surrounding facial cellulitis. No radiodense sialolith. No organized fluid collections. Please note that all CT scans at this facility use dose modulation, iterative reconstruction, and/or weight-based dosing when appropriate to reduce radiation dose to as low as reasonably achievable. Dictated by Tyree Guzman MD @ 08/18/2022 1:33:36 PM (Electronically Signed)
[2022-08-18] MEDS: predniSONE 10 MG TABLET 50 MG PO (12:06)
[2022-08-18] MEDS: IPRAT-ALBUT 0.5-2.5 MG/3 ML NEB 1 NEB IH (12:06)
[2022-08-18 12:21] VITALS: PULSE 60; O2SAT 92
--- NOTE | 2022-08-18 12:56 | ED.NURSE ---
Patient reports relief of some shortness of breath after nebulizer treatment and prednisone administration.
--- NOTE | 2022-08-18 13:40 | RESP.RT ---
Patient laying flat SATing 84% on room air. Had the patient reposition herself and sit up resulting in her SATs improving to 92%.
--- NOTE | 2022-08-18 18:49 | ED.GENADULT ---
HPI - General Adult General Date Seen: 08/18/22 Chief complaint: Shortness of Breath/Dyspnea Stated complaint: Upper respiratory/ear infection, L cheek swollen Time Seen by Provider: 08/18/22 11:19 Source: patient Mode of arrival: ambulatory Limitations: no limitations History of Present Illness HPI narrative: Patient is a 76-year-old female who was seen in the emergency department two days ago and diagnosed with an upper respiratory infection and left otitis. She was treated with amoxicillin. She comes back to the ER today because of worsening swelling along the left side of her face, worsening left ear pain, and more cough and shortness of breath. She did use two of her daughters neb treatments yesterday and they did help her cough and wheezing. She is not a smoker. She has never had to have her own nebulizer or inhaler. He denies any pain in her face or teeth. Related Data Home Medications Medication Instructions Recorded Confirmed acyclovir 400 mg tablet 400 mg PO BID 08/23/21 03/15/22 cyanocobalamin (vitamin B-12) 1,000 mcg PO DAILY 08/23/21 03/15/22 1,000 mcg capsule omeprazole 20 mg capsule,delayed 20 mg PO DIRECTED 08/23/21 03/15/22 release prochlorperazine maleate 10 mg 10 mg PO Q4-6H PRN 08/23/21 03/15/22 tablet furosemide 40 mg tablet 20 mg PO DAILY 09/30/21 03/15/22 oxycodone 5 mg tablet 5 mg PO TID PRN 12/31/21 03/15/22 acyclovir 200 mg capsule mg PO BID 08/16/22 aspirin 325 mg capsule 325 mg PO DAILY 08/16/22 08/16/22 hydrocortisone 2.5 % topical cream applic topical 08/16/22 lenalidomide 10 mg capsule PO 08/16/22 (Revlimid) magnesium chloride 71.5 mg 143 mg PO QAM 08/16/22 08/16/22 (magnesium chloride) tablet,delayed release (Slow-Mag) penicillin V potassium 500 mg 500 mg PO BID 08/16/22 08/16/22 tablet Previous Rx's Medication Instructions Recorded Walker- 4 Wheels #1 ea 08/31/21 atorvastatin 20 mg tablet 20 mg PO DAILY #90 tabs 10/25/21 oxycodone 5 mg tablet 5 mg PO TID PRN pain #60 tabs 12/31/21 potassium chloride 10 mEq 10 meq PO QDAY #90 tabs 12/31/21 tablet,extended release atenolol 50 mg tablet 75 mg (1.5 x 50 mg) PO BID #135 01/03/22 tabs nirmatrelvir 300 mg (150 mg See Rx Instructions PO .COMPLEX 03/19/22 x2)-ritonavir 100 mg tablet,dose #30 ea pack (Paxlovid) lisinopril 40 mg tablet See Rx Instructions .Route 04/25/22 .COMPLEX #90 tabs metformin 500 mg tablet See Rx Instructions .Route 04/25/22 .COMPLEX #270 tabs lorazepam 0.5 mg tablet 0.5 mg PO BID PRN anxiety #60 tabs 06/02/22 amoxicillin 875 mg tablet 875 mg PO BID #14 tabs 08/16/22 amoxicillin 875 mg-potassium 1 tab PO BID #14 tabs 08/18/22 clavulanate 125 mg tablet ipratropium 0.5 mg-albuterol 3 mg 3 ml inhalation Q6H PRN wheezing 08/18/22 (2.5 mg base)/3 mL nebulization #90 mL soln prednisone 20 mg tablet 20 mg PO DAILY #14 tabs 08/18/22 Allergies Allergy/AdvReac Type Severity Reaction Status Date / Time adhesive Allergy Unknown Rash Verified 08/18/22 12:51 Review of Systems Narrative: Review of systems is outlined above otherwise noted to be negative. Exception to this is ongoing visits with her oncologist at [place] for multiple myeloma. She does some type of chemo routine that is three weeks on, one week off. No exertional chest pains or shortness of breath. [facility] Medical History History of basal cell carcinoma (BCC) (04/2015) ?Z85.828 - Personal history of other malignant neoplasm of skin (ICD-10) Surgical History History of tonsillectomy ?Z90.89 - Acquired absence of other organs (ICD-10) History of cholecystectomy (1996) ?Z90.49 - Acquired absence of other specified parts of digestive tract (ICD-10) History of abdominoplasty (2007) ?Z98.890 - Other specified postprocedural states (ICD-10) Family History Other Melanoma Social History Smoking Status: Former smoker Do you use any of these nicotine containing products: None Second hand tobacco smoke exposure: No How often do you have a drink containing alcohol: never How often do you have six or more drinks on one occasion: Never AUDIT-C Alcohol total score: 0 Non-prescribed substance use: denies use service: No Exam Narrative: Exam Narrative: Vitals noted. HEENT: Conjunctiva clear. Tympanic membranes are pearly white bilaterally. Posterior pharynx is clear without erythema or exudate. She has swelling and tenderness of the left parotid. No fluctuance. None of her teeth are tender to percussion. There is no maxillary sinus tenderness. Neck is supple without adenopathy, thyromegaly, carotid bruit. Lungs: Coarse and congested with harsh rhonchi. There is also expiratory wheezes. No respiratory distress or tachypnea. Heart: Regular rate and rhythm without murmur. Abdomen: Soft and nontender. No guarding, rigidity, rebound. Bowel sounds are normal. No palpable masses. Extremities: No cyanosis or edema. Good distal pulses. Skin: No abnormalities noted of the exposed skin. Neurologic: Awake, alert, fully oriented. Neurologic exam is nonfocal. Const: Vital Signs, click to edit/add: Vital Signs - 24 hr 08/18/22 10:36 08/18/22 12:21 Temperature 99.5 F Pulse Rate 60 Pulse Rate [Pulse Oximeter] 65 Respiratory Rate 24 [facility] 203/91 H Pulse Oximetry 94 92 Oxygen Delivery Me thod Room Air Course Course Hospital Course: Patient seen and examined. Her blood pressure is elevated but she has been taking DayQuil for the past two days. CT of her neck shows left parotitis and facial cellulitis. A DuoNeb is ordered with good clearing of her wheezing. She is also given prednisone 50 mg orally. Reevaluation(s) Reevaluation #1: Pain and swelling are better after the prednisone. Her lungs are much more clear after a DuoNeb. Will make a switch from amoxicillin to Augmentin and have her follow-up closely in the clinic. She can borrow her daughter's neb machine and use DuoNebs until her wheezing has resolved. Vital Signs Vital signs: Initial Vital Signs Temperature 99.5 F 08/18/22 10:36 Temperature Source Temporal Artery Scan 08/18/22 10:36 Pulse Rate 65 08/18/22 10:36 Pulse Rhythm Regular 08/18/22 10:36 Respiratory Rate 24 08/18/22 10:36 Blood Pressure 203/91 H 08/18/22 10:36 Blood Pressure Mean 128 H 08/18/22 10:36 Blood Pressure Position Supine 08/18/22 10:36 Pulse Oximetry 94 08/18/22 10:36 Oxygen Delivery Method Room Air 08/18/22 10:36 Vital Signs Temperature 99.5 F 08/18/22 10:36 Pulse Rate 65 08/18/22 10:36 Respiratory Rate 24 08/18/22 10:36 Blood Pressure 203/91 H 08/18/22 10:36 Pulse Oximetry 94 08/18/22 10:36 Oxygen Delivery Method Room Air 08/18/22 10:36 Temperature 99.5 F 08/18/22 10:36 Pulse Rate 60 08/18/22 12:21 Respiratory Rate 24 08/18/22 10:36 Blood Pressure 203/91 H 08/18/22 10:36 Pulse Oximetry 92 08/18/22 12:21 Oxygen Delivery Method Room Air 08/18/22 10:36 Discharge Plan Discharge Clinical Impression: Acute parotitis, RAD (reactive airway disease) Patient Disposition: Home, Self-Care Condition: Improved Additional Instructions: Switch from Amoxicilin to Augmentin twice a day for a week. Prednisone 40 mg daily for 4 days, 20 mg daily for 4 days, 10 mg daily for 4 days then stop. Duo nebs 4 times daily as needed for wheezing. Follow up in the clinic in a week. Prescriptions: New prednisone 20 mg tablet 20 mg PO DAILY Qty: 14 0RF Rx Instructions: 2 QD x 4 days, 1 QD x 4 days, 1/2 QD x 4 days then stop amoxicillin-pot clavulanate 875-125 mg tablet 1 tab PO BID Qty: 14 0RF ipratropium-albuterol 0.5 mg-3 mg(2.5 mg base)/3 mL solution for nebulization 3 ml inhalation Q6H PRN (Reason: wheezing) Qty: 90 0RF No Action (DME) Walker- 4 Wheels Misc See Rx Instructions .Route Qty: 1 0RF Rx Instructions: As directed oxycodone 5 mg tablet 5 mg PO TID PRN potassium chloride 10 mEq tablet extended release 10 meq PO QDAY Qty: 90 3RF oxycodone 5 mg tablet 5 mg PO TID PRN (Reason: pain) Qty: 60 0RF Paxlovid 300 mg (150 mg x 2)-100 mg tablets,dose pack See Rx Instructions .ROUTE .COMPLEX Qty: 30 0RF Rx Instructions: take TWO 150 mg tablets of nirmatrelvir with ONE 100 mg tablet of ritonavir twice daily for 5 days acyclovir 400 mg tablet 400 mg PO BID cyanocobalamin (vitamin B-12) 1,000 mcg capsule 1,000 mcg PO DAILY omeprazole 20 mg capsule,delayed release(DR/EC) 20 mg PO DIRECTED Patient Comments: TAKE 1 CAPSULE BY MOUTH DIRECTED FOR 3 DAYS STARTING WITH EACH DOSE OF DEXAMETHASONE Rx Instructions: take for 3 days starting with each dose of dexamethasone prochlorperazine maleate 10 mg tablet 10 mg PO Q4-6H PRN Patient Comments: TAKE 1 TABLET BY MOUTH EVERY 4 TO 6 HOURS NEEDED FOR NAUSEA OR VOMITING furosemide 40 mg tablet 20 mg PO DAILY Patient Comments: TAKE 1 TABLET BY MOUTH DAILY penicillin V potassium 500 mg tablet 500 mg PO BID hydrocortisone 2.5 % cream topical acyclovir 200 mg capsule PO BID lenalidomide [Revlimid] 10 mg capsule PO Slow-Mag 71.5 mg tablet,delayed release (DR/EC) 143 mg PO QAM aspirin 325 mg capsule 325 mg PO DAILY amoxicillin 875 mg tablet 875 mg PO BID Qty: 14 0RF atorvastatin 20 mg tablet 20 mg PO DAILY Qty: 90 3RF Patient Comments: TAKE 1 TABLET BY MOUTH DAILY atenolol 50 mg tablet 75 mg PO BID Qty: 135 2RF Patient Comments: TAKE 1 AND 1/2 TABLETS BY MOUTH TWICE DAILY metformin 500 mg tablet See Rx Instructions .ROUTE .COMPLEX Qty: 270 3RF Dose Instruction: TAKE 1 TABLET BY MOUTH WITH BREAKFAST AND 2 TABLETS AT SUPPER Rx Instructions: TAKE 1 TABLET BY MOUTH WITH BREAKFAST AND 2 TABLETS AT SUPPER lisinopril 40 mg tablet See Rx Instructions .ROUTE .COMPLEX Qty: 90 3RF Dose Instruction: TAKE 1 TABLET BY MOUTH EVERY MORNING AND 20MG AT BEDTIME, TOTAL 60MG PER DAY. Rx Instructions: TAKE 1 TABLET BY MOUTH EVERY MORNING AND 20MG AT BEDTIME, TOTAL 60MG PER DAY. lorazepam 0.5 mg tablet 0.5 mg PO BID PRN (Reason: anxiety) Qty: 60 2RF Follow Up/Referrals: Dustin Briones MD [Primary Care Provider] - Stand Alone Forms: [employer] Info Instructions
== END 2022-08-18 14:00 | disposition home or self-care (01) ==
PROVIDERS: Emergency Provider Family Medicine; PCP Family Medicine
DX: K11.21 Acute sialoadenitis (principal); J45.909 Unspecified asthma, uncomplicated
CPT/HCPCS: 70491; 94640; 94761; 99283; 99284; 99285; J7512; Q9967

== ENCOUNTER 2022-08-31 10:15 | Outpatient (CLI) | payer OTHER, SELFPAY | END 2022-08-31 10:16 | disposition home or self-care (01) | LOC: NFLDREF 15:41 | PROVIDERS: PCP Family Medicine; Referring Provider Family Medicine; Visit Provider Family Medicine | DX: E13.9 Other specified diabetes mellitus without complications (principal); E78.5 Hyperlipidemia, unspecified; Z13.29 Encounter for screening for other suspected endocrine disorder | CPT/HCPCS: 80061; 84443 ==

== ENCOUNTER 2022-08-31 11:15 | Outpatient (RCR) | payer OTHER, SELFPAY ==
--- NOTE | 2022-04-04 15:02 | PT.OPEX ---
PT [place] Outpatient Eval PT [facility] Outpatient Eval Start: 04/04/22 12:58 Freq: Status: Active Protocol: Document 04/04/22 12:58 DIEGO (Rec: 04/04/22 14:52 DIEGO [id number]) E-signed By Shannon Vargas PT Physical Therapy Outpatient Evaluation Insurance Information Insurance Name Medicare B Insurance Information/Comments [employer] Medical Diagnosis GENERAL DECONDITIONING Treating Diagnosis DECREASED ROM DECREASED BALANCE DECREACED STRENGTH ANTALGIC GAIT RIGHT KNEE PAIN UNSTEADINESS Subjective Subjective PATIENT REPORTS MY KNEE IS ACTUALLY FEELING MUCH BETTER BUT IT'S BEEN A BAD 2 YEARS. THEY SAY I NEED A TOTAL KNEE BUT NOONE WILL TOCUH ME B/C OF MY CANCER AND THAT I'M NOT IN REMISSION Pain Comments PATIENT RATES HER PAIN TODAY 1 -2/10 AT REST AND 6-7/10 WITH PROLONGED AMB AND STAIRS Date of Last Physician Visit 03/30/22 Current Work Status Retired Occupation PATIENT IS A RETIRED [employer] Preferred Name PAT Precautions Treatment Precautions/Contraindications AVOID DEEP KNEE WEIGHTED SQUATS Therapy Limitations/Systems Review Not Limited Objective Other/Pertinent Objective GAIT/FUNCTIONAL MOBILITY Single leg stance: RIGHT -> UNABLE; LEFT ->3 SEC Squat: UNABLE D/T PAIN AND FUNCTIONAL DEFICIT KNEE ROM Flexion: SUPINE RIGHT 122 Extension: SUPINE RIGHT +5 ( LACKING) HIP ROM Flexion: WFL'S Extension: WFL'S Internal Rotation: WFL'S External Rotation: WFL'S Abduction: WFL'S LLE MMT: Hip flexion: R 4-/5 L 4/5 Hip abduction: R 3+/5 L 3+/5 Hip extension: R 4-/5 L 4-/5 Knee flexion: R 4-/5 L 4/5 Knee extension: R 4-/5 L 4/5 SPECIAL TEST Anterior drawer: (-) Zachery test: Posterior Drawer: (-) Valgus Test: (+) Varus Test: (-) Joint line tenderness: SIGNIFICANT PAIN MEDIAL JOINT LINE > LATERAL Campbell test: (+) hyper flexion test: (+) Thessaly test: Wilkins Compression: (+) Hip quadrant test: MAAME test: (-) FADIR test: (-) Scour test: (-) JOINT MOBILITY/PALPATION HYPOMOBILE ATHROKINAMATICS KNEE JOINT WITH PAIN TX: SUPINE HAMSTRING STRETCH B 2 X 15 SEC SUPINE TKE WITH MY KNEE BOLSTER X 10 HOLD 3 SEC SEATED HR/TR X 15 SEATED R/L KNEE EXT 10 X 3 SEC PAUSE SEATED MARCHING SIT TO STAND 2 X5 WITH EMPHASIS ON POSTERIOR CHAIN WITH FULL UPRIGHT POSITIONING AND SLOW DECELERATION. GT X 3 MIN NOTING ATALGIC GAIT (R) WITH POOR FOOT CLEARANCE BILATERALY NOTING LEFT DECREASED STRIDE AND RIGHT TRENDELENBURG GAIT WELL A WADDLE GAIT PATTERN. TINETTI 02/23 20.4 TUG 5 --> 30 SEC STS Assessment Assessment/Impression PATIENT IS A 76 YO PATIENT OF ARELI [place] REFERRED TO PHYSICAL THERAPY FOR RIGHT KNEE OA/PAIN AND GENERAL RECONDITIONING FOLLOWING A BONE MARROW TRANSPLANT 11/2021 . PMHX INCLUDES BUT NOT LIMITED TO MULTIPLE MYELOMA NOT IN REMISSION, H/O BASAL CELL CARCINOMA, H/O SMALL BOWEL OBSTRUCTION, KAREN, DEPRESSION, HLD, HTN, H/O MRSA , DMII, CHF, SOB, H/O ABDOMINOPLASTY, CHRONIC RIGHT KNEE PAIN WITH H/O INJECTION, SEVERE OA RIGHT KNEE, H/O FALLS WITH MOST RECENT BEING YESTERDAY FALLING OUT OF BED REQUIRING 2 AIDES TO ASSIST HER TO STANDING. PATIENT LIVES IN AN [facility] IN A ONE BR APARTMENT WITH ACCESS TO AN ELEVATOR. SHE DOES NOT HAVE ANY STEPS IN HER LIVING SITUATION BUT DOES HAVE 3 STEPS UP/DOWN IN AT HER SON'S SPLIT LEVEL HOME THAT SHE VISITS FREQUENTLY. SHE IS USING A SPC TODAY THAT SHE DESCRIBES SHORT DISTANCES BUT ROUTINELY USES HER ROLLATOR WHEN AMB IN HER HALLWAYS AT THE LIVING HOUSING AND IN COMMUNITY. SHE REPORTS HER GREATEST CHALLENGE IS ENDURANCE AND PAIN IN HER RIGHT KNEE THAT IS IN THE GOOD STAGE CURRENTLY. SHE DEMONSTRATES POOR FUNCTIONAL STRENGTH EVIDENCED BY THE MMT. ADDITIONALLY, SHE DEMONSTRATED A SIGNIFICANT FALL RISK EVIDENCED BY A SCORE OF 12/ ON THE TINETTI BALANCE AND MOBLITY EXAM, 20.4 SEC ON THE TUG, AND 5 STS IN 30 SEC W/O BUE ASSISTANCE. SHE DESCRIBES FALLING OUT OF BED YESTERDAY STATING, I WAS JUST TOO CLOSE TO THE EDGE WHEN I ROLLED OVER. SHE HAS ACCESS TO ASSISTANCE VIA PULL CORD TO RETURN HER UPRIGHT. SHE DEMONSTRATED (+) VALGUS FOR MEDIAL STABILITY, (+) COMPRESSION INDICATING PATELLAR GRINDING/MALTRACKING POTENTIALLY, AND POOR MOTION MEASURING 122- 5, SHE HAS SIGNIFICANT MEDIAL>LATERAL JOINT PAIN THAT FURTHER HINDERS HER SAFE AMB FOR A COMMUNITY DWELLER. 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 PATIENT HAS A COMMMUNITY OUTREACH PROGRAM FOR HER MEDICAL DX SUPPLYING HER WITH 14 MEALS/WK FOR A TOTAL OF 1 YEAR WITH HER SON ASSISTING WITH OTHER ITEMS SHE MAY NEEDS. THIS PATIENT IS APPROPRIATE FOR SKILLED PHYSICAL THERAPY TO ADDRESS SYMPTOM MGMT, ROM, STRENGTHENING, FUNCTION MOBILITY AND BALANCE TRAINING WELL GT FOR COMMUNITY NAVIGATION. PATIENT PROVIDED AN INDIVIDUALIZED AND WRITTEN HEP TO INCLUDE ANKLE ROM, KNEE EXT R/L, MARCHING FOR HIP MOBILITY, AND SIT TO STANDS FOR FUNCTIONAL STRENGTHENING ADDING POSTERIOR MUSCULATURE TO ADDRESS POSTURAL STRENGTHENING. PATIENT ENCOURAGED TO PERFORM TWICE DAILY AND TO UTILIZE ICE PRN FOR PAIN AND EDEMA MGMT. PATIENT VERBALIZED UNDERSTANDING OF ALL SKILLED INSTRUCTION AND IN AGREEMENT WITH POC AND FREQ. Primary Functional Limitations ABNORMAL GAIT UNSTEADINESS TRANSFERS ADL'S IADL'S DECREAESD ROM DECREASED STRENGTH Plan of Care Rehabilitation Potential Fair Rehabilitation Potential Comments PATIENT WILL BEGIN 21 DAYS ON AND 7 DAYS OFF FOR HOME CHEMO MEDS WELL EVERY 2 WEEKS RECEIVE AN INJECTION FOR MAINTANCE CANCER CARE. Physical Therapy Goals ST. PATIENT WILL AMB 5 MIN SAFELY AND CONSISTENTLY TO PARTICIPATE WITH PEER CENTERED ACTIVITIES IN HER SR LIVING COMMUNITY IN 4 WEEKS 2. PATIENT WILL DECREASED TUG FROM 20.4 TO 17 SEC TO IMPROVE HER RISK FOR FALL 3. PATIENT WILL BE ABLE VACCUUM HER SMALL APARTMENT WITH ONLY 1 REST BREAK INSTEAD OF MULTIPLE SEATED REST BREAKS LT. PATIENT WILL TOLERATE 15 MIN OF AMB TO ALLOW HER TO ATTEND FAMILY CENTERED ACTIVITIES IN 12 WEEKS 2. PATIENT WILL IMPROVE TINETTI FROM TO TO IMPROVE HER RISK FOR FALLS IN 12 WEEKS 3. PATIENT WILL BE INDEPENDENT WITH HER HEP IN 12 WEEKS Coordination/Communication With Referral Source Treatment Plan/Direct Interventions Gait Training,Heat,Ice/Cold/ Vasopneumatic,Manual Therapy, Neuromuscular Re-ed, Therapeutic Activities, Therapeutic Exercises Frequency/Duration 2XWK/12 WEEKS Patient Will Be Discharged From Therapy Completion of LTG(s), Independent w/HEP Discharge Plan Comments PATIENT WILL BE DISCHARGED TO SELF WHEN GOALS MET Evaluation Billing Untimed Code Treatment Minutes 30 PT Eval No Charge No Complexity Moderate Certification Information Initial Certification Date 04/04/22 Ending Certification Date 06/27/22 Provider Signature Shows Agreement With POC & Medical Necessity Physician Signature & Date Requested Please Sign/Date Here Physician Comment/Change : Physician NPI Number #
--- NOTE | 2022-06-28 16:53 | PT.OPDNX ---
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 SHE STATES,I' VE BEEN REALLY WORKING GETTING MORE WALKING IN DURING THE DAY. I STILL USE MY WALKER BUT JUST REALLY FOR BALANCE NOW. SHE REPORTS TRIPPING OVER A SHOE IN HER PATH AND HAVING A CHAIR TO GRAB OTHERWISE SHE WOULD HAVE FALLEN TO THE GROUND. SHE HAS MOVED THE SHOE . Pain Comments PATIENT RATES HER PAIN TODAY 1 -2/10 AT REST AND 6-7/10 WITH PROLONGED AMB AND STAIRS Preferred Name PAT Precautions Treatment Precautions/Contraindications AVOID DEEP KNEE WEIGHTED SQUATS Home ExercisE Home Exercise Comments PATIENT ENCOURAGED TO PERFORM TWICE DAILY AND TO AVOID EXERCISES ACTIVITIES THE EXACERBATE HER PAIN; ADDITIONALLY, PATIENT ENCOURAGED TO WALK 2-3 MIN WITH HER ROLLATOR TWICE DAILY. 06/14/22: ENCOURAGED PATIENT TO WORK ON HEAD MVMTS DURING AMB AND PROVIDING MORE VESTIBULAR CHALLENGES FOR HEAD ORIENTATION SHE RETURNS BACK TO DRIVING. Objective Other/Pertinent Objective GAIT/FUNCTIONAL MOBILITY Single leg stance: RIGHT -> UNABLE; LEFT ->3 SEC Squat: UNABLE D/T PAIN AND FUNCTIONAL DEFICIT KNEE ROM Flexion: SUPINE RIGHT 122 Extension: SUPINE RIGHT +5 ( LACKING) HIP ROM Flexion: WFL'S Extension: WFL'S Internal Rotation: WFL'S External Rotation: WFL'S Abduction: WFL'S LLE MMT: Hip flexion: R 4-/5 L 4/5 Hip abduction: R 3+/5 L 3+/5 Hip extension: R 4-/5 L 4-/5 Knee flexion: R 4-/5 L 4/5 Knee extension: R 4-/5 L 4/5 SPECIAL TEST Anterior drawer: (-) Zachery test: Posterior Drawer: (-) Valgus Test: (+) Varus Test: (-) Joint line tenderness: SIGNIFICANT PAIN MEDIAL JOINT LINE > LATERAL Campbell test: (+) hyper flexion test: (+) Thessaly test: Wilkins Compression: (+) Hip quadrant test: MAAME test: (-) FADIR test: (-) Scour test: (-) JOINT MOBILITY/PALPATION HYPOMOBILE ARTHROKINEMATICS KNEE JOINT WITH PAIN Functional Test Performed & Score TINETTI 02/23 20.4 TUG 5 --> 30 SEC STS Patient Instructed in Risks/Benefits Yes Therapeutic Exercise Therapeutic Exercise Minutes (minutes) 35 Therapeutic Exercise: To Restore RECUMBENT BIKE X 7MIN Functional Status SEATED HR/TR X 1MIN SEATED R/L KNEE EXT X 1MIN R/L SEATED MARCHING X 1 MIN SIT TO STAND 2 X5 WITH EMPHASIS ON POSTERIOR CHAIN WITH FULL UPRIGHT POSITIONING AND SLOW DECELERATION. SEATED TB (RED) ROW X 15 SEATED TB (RED) CHEST PRESS X 15 SEATED TB (RED) INCLINE PRESS X 10 SEATED SHOULDER TO OVERHEAD X 5 SEATED TB (RED) LAT PULL DOWN X 15 STDG MULTIDIRECTIONAL REACHING 3 X 10 TAPS WITH 1MIN SIT DOWN RECOVERY AFTER EA. STDG BHR X 15 (NOT TODAY) STDG HIP ABD R/L X 10 (NOT TODAY) STDG MARCHING X 10 (NOT TODAY) STEP TAP ON BLUE FOAM X 10 ( NOT TODAY) STEP ON / OFF LEAD WITH RIGHT DOWN WITH RIGHT X 5 THEN LEFT UP/DOWN (NOT TODAY) Gait & Stair Training Gait Training/Stairs Minutes (minutes) 10 Gait & Stair Training Comments GAIT WITH HORIZONTAL SLOW HEAD TURNS, GAZE STABILIZATION, QUICK STOPS AND CHANGE IN DIRECTION 6 MIN WALK (420FT) Treatment Minutes Timed Code Treatment Minutes 45 Total Treatment Time 45 Billing Units Gait Training/Stairs Units 1 Therapeutic Exercise Units 2 Re-Evaluation Units 1 Assessment/Impression Assessment/Impression PATIENT IS TOLERATES HER PROGRAM WELL AND DEMONSTRATES SIGNIFICANT IMPROVEMENT SINCE HER ORIGINAL EVALUATION 04/04/22 . SHE HAS ATTENDED 8 VISITS FROM 04/04/22-06/27/22 WITH FOCUS ON FUNCTIONAL STRENGTHENING, GT, AND FUNCTIONAL BALANCE TRAINING FOR BOTH STATIC AND DYNAMIC BALANCE ALIKE. SHE DEMONSTRATES A DRAMATIC FALL RISK IMPROVEMENT EVIDENCED BY IMPROVING HER TUG (TIMED GET UP AND GO) FROM 20 SEC TO 13 SEC, HER TINETTI BALANCE EXAMINATION FROM 02/23 TO AND HER CARDIOVASCULAR ENDURANCE FROM AMB 2MIN W/O WALKER AND ~100FT TO 6 MIN AND ~420FT. SHE NOW CAN AMB IN HER APARTMENT WITHOUT HER WALKER WITH ONE FALL EARLY ON IN HER TREATMENT AND ONE RECENT TRIP W/O FALL ON HER SHOE. SHE IS CONCURRENTLY RECEIVING A CHEMOTHERAPY REGIMEN THAT INTERMITTENTLY AFFECTS HER FATIGUE LEVEL BUT OTHERWISE HAS NO ISSUES WITH PARTICIPATION. SHE IS APPROPRIATE FOR CONTINUED SKILLED PHYSICAL THERAPY SO THAT SHE WALK WITHIN HER BLDG W/O HER ROLLATOR FOR PEER CENTERED ACTIVITIES AND ON AN UNEVEN SURFACE WITH HER ROLLATOR AND SUPERVISION TO ATTEND HER GRANDSON'S BALL GAMES SAFELY. Plan of Care Physical Therapy Goals ST. PATIENT WILL AMB 5 MIN SAFELY AND CONSISTENTLY TO PARTICIPATE WITH PEER CENTERED ACTIVITIES IN HER SR LIVING COMMUNITY IN 4 WEEKS GOAL MET 2. PATIENT WILL DECREASED TUG FROM 20.4 TO 17 SEC TO IMPROVE HER RISK FOR FALL GOAL MET 3. PATIENT WILL BE ABLE VACUUM HER SMALL APARTMENT WITH ONLY 1 REST BREAK INSTEAD OF MULTIPLE SEATED REST BREAKS LT. PATIENT WILL TOLERATE 15 MIN OF STDG/AMB TO ALLOW HER TO ATTEND FAMILY CENTERED ACTIVITIES IN 12 WEEKS 2. PATIENT WILL IMPROVE TINETTI FROM 12 TO TO IMPROVE HER RISK FOR FALLS IN 12 WEEKS 3. PATIENT WILL BE INDEPENDENT WITH HER HEP IN 12 WEEKS Daily Plan of Care Continue per POC Recertification Information Initial Certification Date 04/04/22 Reasons to Continue Skilled Therapy BLE/CORE STRENGTHENING CARDIOVASCULAR ENDURANCE TRAINING FUNCTIONAL STATIC AND DYNAMIC BALANCE TRAINING GT ON A VARIETY OF SURFACES Rehabilitation Potential EXCELLENT Provider Signature Shows Agreement With POC & Medical Necessity
== END 2022-09-26 14:31 | disposition home or self-care (01) ==
PROVIDERS: PCP Family Medicine; Visit Provider Physician Assistant Surgical
DX: Z94.81 Bone marrow transplant status (principal); Z51.89 Encounter for other specified aftercare
CPT/HCPCS: 97110; 97116; 97162; 97164

== ENCOUNTER 2023-03-08 08:41 | Outpatient (CLI) | payer OTHER, SELFPAY ==
--- OUTSIDE RECORDS SUMMARY | 2023-03-08 08:45 | XMS_ITS | Clinical Summary ---
Author Name Unknown Organization [facility] Address [address] [place] [address] Care Team Providers Care Tool Pusher Name Role Phone Elsewhere, Pcp Primary Care Provider Unavailabl e Source Comments Patient records contain information from all sites at [facility]. For routine questions regarding patient records, call [phone] during business hours, M-F 8:00 AM - 5:00 PM Central Time. Record requests for emergency care only can be directed to [phone] at any time.[facility] Allergies Active Allergy Reactions Criticality Noted Date Comments Adhesive Tape-Silicones Other (see comments) Blister/redness Medications Medication Sig Dispensed Refills Start Date End Date Status loperamide (IMODIUM A-D) 2 mg capsule Take 2-4 mg by mouth 4 (four) times a day as needed. 0 8 Active metFORMIN (GLUCOPHAGE) 500 mg tablet 500 mg 2 (two) times a day. 500 mg in AM and 1000 mg in PM 0 2 Active omeprazole (PriLOSEC) [address] capsule Take 1 capsule (20 mg total) by mouth every morning before breakfast. 30 capsule 0 2 Active Additional Information Patient taking differently:20 mg oralAs needed, Informant: Self, Reported on 08/26/2022 cyanocobalamin (VITAMIN B12) 1,000 mcg tablet Take 1,000 mcg by mouth daily. 0 Active LORazepam (ATIVAN) 0.5 mg tablet Take 0.5 mg by mouth 3 (three) times a day as needed for anxiety (Patient taking AM and PM). 0 Active atenoloL (TENORMIN) 50 mg tablet Take 1.5 tablets (75 mg total) by mouth daily. 45 tablet 11 2 Active magnesium chloride (SLOW-MAG) 71.[address] tablet Take 2 tablets (143 mg total) by mouth every morning before breakfast. Do not crush or chew. 30 tablet 1 2 Active prochlorperazin e (COMPAZINE) 10 mg tabletIndicatio ns:Multiple Myeloma Not Having Achieved Remission (HCC) Take 1 tablet (10 mg total) by mouth every 6 (six) hours as needed for nausea or vomiting (unrelieved by ondansetron). 30 tablet 3 3 03/28/19 24 Active ondansetron (ZOFRAN) 8 mg tabletIndicatio ns:Multiple Myeloma Not Having Achieved Remission (HCC) Take 1 tablet (8 mg total) by mouth every 8 (eight) hours as needed for nausea or vomiting. 30 tablet 3 3 03/28/19 [address] aspirin [address] tabletIndicatio ns:Multiple Myeloma Not Having Achieved Remission (HCC) Take 1 tablet (325 mg total) by mouth daily. 90 tablet 3 3 Active escitalopram (LEXAPRO) 10 mg tablet TAKE 1 TABLET(10 MG) BY MOUTH DAILY 30 tablet 3 3 Active Additional Information Patient taking differently: As needed, Informant: Self, Reported on 11/11/2022 lisinopriL (PRINIVIL,ZESTR LA) 40 mg tablet Take 1 tablet by mouth daily. 40 mg in the am 20 mg in pm 0 3 Active triamcinolone (KENALOG) 0.1 % cream Apply 1 Application topically 2 (two) times a day for 14 days. Apply to chest and neck area (avoid the face). 80 g 0 3 Active bortezomib (VELCADE) 3.5 mg injection Infuse 2.5 mg/m2 into a venous catheter over 336 hr. 0 Active hydroCHLOROthia zide (HYDRODIURIL) 12.5 mg tablet Take 12.5 mg by mouth 2 (two) times a day. 0 3 Active acyclovir (ZOVIRAX) 200 mg capsule TAKE 2 CAPSULES(400 MG) BY MOUTH TWICE DAILY 60 capsule 11 3 Active lenalidomide (REVLIMID) 10 mg capsuleIndicati ons:Multiple Myeloma Not Having Achieved Remission (HCC) Take whole with water. Do not break, chew, or open. 21 capsule 0 4 Active acyclovir (ZOVIRAX) 200 mg capsule Take 2 capsules (400 mg total) by mouth 2 (two) times a day. 60 capsule 11 3 02/10/20 23 Discontinued lenalidomide (REVLIMID) 10 mg capsuleIndicati ons:Multiple Myeloma Not Having Achieved Remission (HCC) TAKE 1 CAPSULE BY MOUTH 1 TIME A DAY FOR 21 DAYS ON THEN 7 DAYS OFF 21 capsule 0 3 03/03/19 24 Discontinued(Reo rdede) Active Problems Problem Noted Date Diagnosed Date COVID-19 Infection 03/22/2022 Overview: This patients COVID history is as follows: Initial date of symptoms: 03/18/22 Symptoms at onset: not severe Date of positive test: 03-19-22 Initial treatment paxlovid Qualifying condition/medication for CCP: Multiple myeloma Blood type / location: ordered for 03/23/22 [place] Infusion dates: Ordered for [place] 03/23/22 Follow up 03-25-22. Feeling much better. Only has residual slight cough and nasal congestion Hypokalemia 12/17/2021 Hypomagnesemia 12/16/2021 Diabetes Mellitus Type 2 12/07/2021 Weakness General 12/07/2021 Transplant Stem Cell 09/24/2021 History Of Falling 09/23/2021 Multiple Myeloma Not Having Achieved Remission 0 05/28/2021 Resolved Problems Problem Noted Date Diagnosed Date Resolved Date Multiple Myeloma In Remission 10/22/2021 07/08/2022 Encounters Date Type Department Care Team Description 03/07/2023 Refill Department of Oncology in [place], [place] [phone] Mari Noguera M.D. Med Refill 03/03/2023 3:00 PM PHP ARCHITECT Office Visit Department of Oncology in [place], [place] Keri [place] [phone] Mari Noguera M.D. Multiple Myeloma Not Having Achieved Remission (HCC) 03/03/2023 Refill Department of Oncology in [address] [phone] Mari Noguera M.D. Med Refill 03/02/2023 10:39 AM PHP ARCHITECT - 03/02/2023 11:59 PM PHP ARCHITECT Hospital Encounter Department of Laboratory Medicine in [address] [phone] Mari Noguera M.D. Multiple Myeloma Not Having Achieved Remission (HCC) Discharge Disposition: Home or Self Care 02/23/2023 Refill Department of Oncology in [address] [phone] Mari Noguera M.D. Med Refill 02/17/2023 9:15 AM PHP ARCHITECT Infusion Department of Infusion Therapy in [address] [phone] Mari Noguera M.D. Multiple Myeloma Not Having Achieved Remission (HCC) (Primary Dx) 02/17/2023 8:23 AM PHP ARCHITECT - 02/17/2023 11:59 PM PHP ARCHITECT Hospital Encounter Department of Laboratory Medicine in [address] [phone] Mari Noguera M.D. Multiple Myeloma Not Having Achieved Remission (HCC) Discharge Disposition: Home or Self Care 02/17/2023 Orders Only Department of Oncology in [address] [phone] Mari Noguera M.D. Multiple Myeloma Not Having Achieved Remission (HCC) (Primary Dx) 02/14/2023 Clinical Communication Department of Oncology in [address] [phone] Mari Noguera M.D. Medical Certification Form ([employer]) 02/10/2023 9:15 AM PHP ARCHITECT Infusion Department of Infusion Therapy in [address] [phone] Mari Noguera M.D. Multiple Myeloma Not Having Achieved Remission (HCC) (Primary Dx) 02/09/2023 2:29 PM PHP ARCHITECT - 02/09/2023 11:59 PM PHP ARCHITECT Hospital Encounter Department of Laboratory Medicine in [place], [place] [address] [facility] [place] [address] Mari Noguera M.D. Multiple Myeloma Not Having Achieved Remission (HCC) Discharge Disposition: Home or Self Care 02/05/2023 Refill [facility] in [place], [place] [address] [place] [address] Jeannie Headley APRN, C.N.P., D.N.P., M.S.N. Med Refill 01/30/2023 1:09 PM PHP ARCHITECT - 01/30/2023 11:59 PM PHP ARCHITECT Hospital Encounter Department of Laboratory Medicine in [address] [phone] Mari Noguera M.D. Thrombocytopenia (HCC) Discharge Disposition: Home or Self Care 01/30/2023 8:00 AM PHP ARCHITECT Infusion Department of Infusion Therapy in [address] [phone] Mari Noguera M.D. Multiple Myeloma Not Having Achieved Remission (HCC) (Primary Dx) 01/30/2023 Orders Only Department of Oncology in [address] [phone] Anna Rosa R.N. Thrombocytopenia (HCC) (Primary Dx) 01/30/2023 Orders Only Department of Oncology in [place], [place] [address] [place] [address] Mari Noguera M.D. 01/27/2023 8:40 AM PHP ARCHITECT Office Visit Department of Oncology in [address] [phone] Mari Noguera M.D. Multiple Myeloma Not Having Achieved Remission (HCC) (Primary Dx); Transplant Stem Cell (HCC); Thrombocytopenia (HCC) 01/27/2023 7:50 AM PHP ARCHITECT - 01/27/2023 11:59 PM PHP ARCHITECT Hospital Encounter Department of Laboratory Medicine in [address] [phone] Mari Noguera M.D. Multiple Myeloma Not Having Achieved Remission (HCC) Discharge Disposition: Home or Self Care 01/25/2023 Orders Only Department of Oncology in [address] [phone] Mari Noguera M.D. 01/23/2023 Refill Department of Oncology in [address] [phone] Mari Noguera M.D. Med Refill 01/20/2023 11:45 AM PHP ARCHITECT Infusion Department of Infusion Therapy in [address] [phone] Mari Noguera M.D. Multiple Myeloma Not Having Achieved Remission (HCC) (Primary Dx) 01/20/2023 9:50 AM PHP ARCHITECT - 01/20/2023 11:59 PM PHP ARCHITECT Hospital Encounter Department of Laboratory Medicine in [address] [phone] Mari Noguera M.D. Multiple Myeloma Not Having Achieved Remission (HCC); Diarrhea Discharge Disposition: Home or Self Care 01/20/2023 Clinical Communication Department of Oncology in [address] [phone] Mari Noguera M.D. 01/20/2023 Clinical Communication Department of Oncology in [address] [phone] Mari Noguera M.D. Lab Question 01/18/2023 9:33 AM PHP ARCHITECT - 01/18/2023 11:59 PM PHP ARCHITECT Hospital Encounter Department of Laboratory Medicine in [address] [phone] Mari Noguera M.D. Discharge Disposition: Home or Self Care 01/18/2023 Orders Only Department of Oncology in [address] [phone] Mari Noguera M.D. Multiple Myeloma Not Having Achieved Remission (HCC) (Primary Dx) 01/13/2023 8:52 AM PHP ARCHITECT - 01/13/2023 11:59 PM PHP ARCHITECT Hospital Encounter Department of Laboratory Medicine in [address] [phone] Mari Noguera M.D. Multiple Myeloma Not Having Achieved Remission (HCC); Diarrhea Discharge Disposition: Home or Self Care 01/13/2023 8:40 AM PHP ARCHITECT Office Visit Department of Oncology in [address] [phone] Mari Noguera M.D. Multiple Myeloma Not Having Achieved Remission (HCC) (Primary Dx); Diarrhea; Transplant Stem Cell (HCC); Thrombocytopenia (HCC) 01/12/2023 9:54 AM PHP ARCHITECT - 01/12/2023 11:59 PM PHP ARCHITECT Hospital Encounter Department of Laboratory Medicine in [address] [phone] Mari Noguera M.D. Multiple Myeloma Not Having Achieved Remission (HCC) Discharge Disposition: Home or Self Care 01/02/2023 Specialty Pharmacy [facility] [id number] [place] [phone] Aylin Sahu, PharmAbrahamD., R.Ph. 12/30/2022 9:15 AM CDT Infusion Department of Infusion Therapy in [address] [phone] Mari Noguera M.D. Multiple Myeloma Not Having Achieved Remission (HCC) (Primary Dx); Transplant Stem Cell (HCC); Multiple Myeloma In Remission (HCC) 12/29/2022 1:21 PM CDT - 12/29/2022 11:59 PM CDT Hospital Encounter Department of Laboratory Medicine in [address] [phone] Mari Noguera M.D. Multiple Myeloma Not Having Achieved Remission (HCC) Discharge Disposition: Home or Self Care 12/29/2022 9:20 AM CDT - 12/29/2022 1:20 PM CDT Hospital Encounter Department of Laboratory Medicine in [place], [place] [address] [place] [address] Mari Noguera M.D. Multiple Myeloma Not Having Achieved Remission (HCC) Discharge Disposition: Home or Self Care 12/29/2022 Orders Only Department of Infusion Therapy in [address] [phone] Donita Sandhu R.N. Multiple Myeloma Not Having Achieved Remission (HCC) (Primary Dx) 12/27/2022 Clinical Communication Department of Oncology in [address] [phone] Mari Noguera M.D. Nurse Assessment 12/27/2022 Refill Department of Oncology in [address] [phone] Mari Noguera M.D. Med Refill 12/26/2022 Orders Only Department of Oncology in [address] [phone] Mari Noguera M.D. Multiple Myeloma Not Having Achieved Remission (HCC) 12/24/2022 Orders Only Department of Oncology in [place], [place] [address] [place] [address] Mari Noguera M.D. 12/20/2022 Clinical Communication [facility] [id number] [place] [phone] Gregoria May, C.Ph.T. New Med Request 12/20/2022 Clinical Communication [facility] [id number] [place] [phone] Katelin Vargas, Pharm.D., R.Ph. [facility] unable to fill generic Revlimid for patient 12/20/2022 Clinical Communication Pharmacy Prior Auth RO [phone] Jovita Espinosa 12/20/2022 Clinical Communication Department of Oncology in [address] [phone] Mari Noguera M.D. Rx Denial (REVLIMID CAPSULE) 12/16/2022 2:15 PM CDT Infusion Department of Infusion Therapy in [address] [phone] Mari Noguera M.D. Multiple Myeloma Not Having Achieved Remission (HCC) (Primary Dx) 12/16/2022 Orders Only Department of Oncology in [place], [place] [address] [place] [address] Nasim Mchugh M.D. Multiple Myeloma Not Having Achieved Remission (HCC) (Primary Dx) 12/15/2022 1:47 PM CDT - 12/15/2022 11:59 PM CDT Hospital Encounter Department of Laboratory Medicine in [place], [place] [address] [place] [phone] Mari Noguera M.D. Multiple Myeloma Not Having Achieved Remission (HCC) Discharge Disposition: Home or Self Care 12/13/2022 Refill Department of Oncology in [address] [phone] Mari Noguera M.D. Med Refill 12/07/2022 Refill [facility], Ninth Floor [address] [place] [phone] Brooklynn Salinas APRN, C.N.P., D.N.P. Med Refill from Last 3 Months Immunizations Name Administration Dates Next Due DTaP-IPV/Hib (Pentacel) 09/09/2022(Defer red: Other - To be used in the future),09/05/2022 H1N1 All Forms 01/06/2009 HZV (ZOSTAVAX) 03/29/2012 HepA Adult 09/05/2022 HepB Adult (HEPLISAV-B) 09/09/2022(Defer red: Other - To be used in the future),09/05/2022 Influenza (IM) Preservative Free 11/27/2009,07/2008 Influenza TIV (IM) 03/29/2012, 1,11/27/2009,2008,12/11/2006,12/13/2005,01/13/2005 Influenza high dose QV(65 ye ars or older) (PF) 12/31/2021,02/17/2021,12/17/2019 Influenza, Injectable, Quadrivalent 05/20/2013 Influenza, Seasonal, Injectable 03/29/19 13,12/16/2010,12/11/2006,2005,01/13/2005 MENACWY-TT (MENQUADFI)(MCV4) 09/09/2022( Deferred: Other - To be used in the future),09/05/2022 PCV13 12/11/2014 PCV20 09/05/2022 PPSV23 03/06/2019,12/07/2016,11/27/2009 RZV (SHINGRIX) 09/09/2022(Deferred: Other - To be used in the future),09/05/2022 SARS-COV-2 (COVID-19) - PFIZ ER BIVALENT TS(12 YEARS OR OLDER) 09/05/2022 Td (Adult), adsorbed 09/23/1996,02/26/1983 Td Preservative Free (TENIVA C, DECAVAC) 07/27/2006 Tdap 04/15/2022,06/30/2010 influenza high dose (65 year s or older) (PF) 12/27/2018,12/14/2017,11/30/2017,2016,02/06/2016,12/11/2014 influenza vaccine quad (FLUZONE/FLUARIX) (6 months and older)(PF) 01/06/2009 Family History Medical History Relation Name Comments Melanoma Brother Relation Name Status Comments Brother Social History Tobacco Use Types Packs/Day Years Used Date Smoking Tobacco: Former Smokeless Tobacco: Never Tobacco Cessation:Counseling Given: Not Answered Alcohol Use Standard Drinks/Week Comments Not Currently 0 (1 standard drink = 0.6 oz pur e alcohol) Humiliation, Afraid, Rape, and Kick questionnair e Answer Date Recorded Within the last year, have y ou been afraid of your partner or ex-partner? No 06/11/2021 Within the last year, have y ou been humiliated or emotionally abused in other ways by your partner or ex-partner? No Within the last year, have y ou been kicked, hit, slapped, or otherwise physically hurt by your partner or ex-partner? No 06/11/2021 Within the last year, have y ou been raped or forced to have any kind of sexual activity by your partner or ex-partner? No 06/11/2021 Social Connection and Isolat ion Panel [NHANES] Answer Date Recorded In a typical week, how many times do you talk on the phone with family, friends, or neighbors? More than three times a week 06/11/2021 How often do you get togethe r with friends or relatives? Once a week 06/11/2021 How often do you attend [facility] or christian services? 1 to 4 times per year 06/11/2021 Do you belong to any clubs o r organizations such as yarsani groups, unions, fraternal or athletic groups, or school groups? No 06/11/2021 How often do you attend meet ings of the clubs or organizations you belong to? Never 06/11/2021 Are you , , di vorced, , never , or living with a partner? 06/11/2021 AUDIT-C Answer Date Recorded Q1: How often do you have a drink containing alc ohol? Monthly or less 06/11/2021 Q2: How many drinks containi ng alcohol do you have on a typical day when you are drinking? 1 or 2 06/11/2021 Q3: How often do you have si x or more drinks on one occasion? Never 06/11/2021 Overall Financial Resource Strain (CARDIA) Answe r Date Recorded How hard is it for you to pa y for the very basics like food, housing, medical care, and heating? Not very hard 06/11/2021 PHQ-2 Answer Date Recorded PHQ-2 Score 4 11/18/2021 [facility]ational Stress Questionnaire Answer Date Recorded Do you feel stress - tense, restless, nervous, or anxious, or unable to sleep at night because your mind is troubled all the time - these days? Only a little 06/11/2021 Exercise Vital Sign Answer Date Recorde d On average, how many days pe r week do you engage in moderate to strenuous exercise (like a brisk walk)? 0 days 06/11/2021 On average, how many minutes do you engage in exercise at this level? 0 min 06/11/2021 Hunger Vital Sign Answer Date Recorded Within the past 12 months, y ou worried that your food would run out before you got the money to buy more. Never true 06/12/19 Within the past 12 months, t he food you bought just didn't last and you didn't have money to get more. Never true 06/11/2021 PRAPARE - Transportation Answer Date Re corded In the past 12 months, has l ack of transportation kept you from medical appointments or from getting medications? No 05/28 In the past 12 months, has l ack of transportation kept you from meetings, work, or from getting things needed for daily living? No 06/11/2021 Housing Stability Vital Sign Answer Blanco e Recorded In the last 12 months, was t here a time when you were not able to pay the mortgage or rent on time? No 06/11/2021 In the last 12 months, how many places have you lived? 1 06/11/2021 In the last 12 months, was t here a time when you did not have a steady place to sleep or slept in a skilled nursing (including now)? No 06/11/2021 Nutrition Answer Date Recorded Nutrition: EVOO Fat Source No 06/11 On average, how many serving s of fruits and vegetables do you eat per day (serving size is equal to 1 cup or approximately the size of a tennis ball)? 0-1 06/11/2021 Dental Answer Date Recorded Dental: Regular Dentist Yes 06/12/19 Employment Answer Date Recorded Employment status Retired 06/11/2021 Education Answer Date Recorded What is the highest level of school you have completed or the highest degree you have received? Associate degree: occupational, technical, or vocational program 06/11/2021 Sex and Gender Information Value Date Recorded Sex Assigned at Female 06/11/2021 7:58 PM CDT Gender Identity Female 06/11/2021 7:58 PM CDT Sexual Orientation Straight 06/11/2021 7: 58 PM CDT Last Filed Vital Signs Vital Sign Reading Time Taken Comments Blood Pressure 97/47 03/03/2023 3:26 PM PHP ARCHITECT Pulse 56 03/03/2023 3:26 PM PHP ARCHITECT Temperature 36.6 ??C (97.9 ??F) 03/03/2023 3:23 PM CS T Respiratory Rate 18 02/17/2023 9:10 AM PHP ARCHITECT Oxygen Saturation 97% 03/03/2023 3:23 PM PHP ARCHITECT Room air Inhaled Oxygen Concentration - - Weight 83.7 kg (184 lb 8.4 oz) 03/03/2023 3:23 P M PHP ARCHITECT Height 158.4 cm (5' 2.36) 10/07/2022 11:14 AM C DT Body Mass Index 33.36 10/07/2022 11:14 AM CDT Plan of Treatment Upcoming Encounters Date Type Department Care Team (Late st Contact Info) Description 03/16/2023 10:30 AM PHP ARCHITECT Appointment Department of Laboratory Medicine in [address] [phone] Mari Noguera M.D. [address] [place] [phone] 03/17/2023 8:40 AM PHP ARCHITECT Office Visit Department of Oncology in [address] [phone] Mari Noguera M.D. [address] [place] [phone] 03/17/2023 9:45 AM PHP ARCHITECT Infusion Department of Infusion Therapy in [address] [phone] aMri Noguera M.D. [address] [place] [phone] 03/31/2023 10:10 AM PHP ARCHITECT Appointment Department of Laboratory Medicine in [address] [phone] Mari Noguera M.D. [address] [place] [phone] 04/04/2023 8:20 AM PHP ARCHITECT Office Visit Department of Oncology in [address] [phone] Mari Noguera M.D. [address] [place] [phone] 04/04/2023 9:00 AM PHP ARCHITECT Infusion Department of Infusion Therapy in [address] [phone] Mari Noguera M.D. [address] [place] [phone] 04/13/2023 10:10 AM PHP ARCHITECT Appointment Department of Laboratory Medicine in [place], [place] [address] [place] [address] Mari Noguera M.D. [address] [place] [phone] 04/14/2023 9:00 AM PHP ARCHITECT Infusion Department of Infusion Therapy in [address] [phone] Mari Noguera M.D. [address] [place] [phone] Health Maintenance Due Date Last Done Comments CT Colonography 1947 Cervical Cancer Screening 1947 Cologuard 1947 Colonoscopy 1947 Colorectal Cancer Screening 1947 Dental Prophylaxis 1947 Diabetic Office Visit with F oot Exam 1947 FIT 1947 Lipid (Cholesterol) Screening 1947 Urine Albumin 1947 Dilated Eye Exam 11/07/2013 05/07/2013, , 05/17/2011, Additional history exists Bone Density Scan Monitoring 01/01/2016 12/31/2014 Mammogram 01/16/2019 01/16/2018 Hemoglobin A1C 03/30/2022 09/27/2021 Urinalysis 06/08/2022 12/08/2021, 09/23/2021 Thyroid Function [place] 09/21/2022 09/21/2021 Vitamin D Testing 09/21/2022 09/21/2021 Spirometry with DLCO or PFT 09/23/2022 09/23/2021 Depression Screening (Annual PHQ-2) 02/27/2023 Fall Risk Screen (Annual) 02/27/2023 Serum Protein Electrophoresis 01/21/2024, 12/02/2022, 09/23/2022, Additional history exists Creatinine Level (Kidney Fun ction Test) 03/02/2024 03/02/2023, 01/27/2023, 01/20/2023, Additional history exists Potassium Level 03/02/2024 03/02/2023, 12/02/2022, 01/20/2023, Additional history exists Sodium Level 03/02/2024 03/02/2023, 12/0 02/2022, 01/20/2023, Additional history exists Office Visit for Blood Press ure Check / Re-check 03/03/2024 03/03/2023, 03/30/2022, 03/30/2022 Bone Density Scan (Osteoporo sis Screen) Discontinued 12/31/2014 Hepatitis C Screening Completed 11/10/2021 , 10/21/2021, 09/21/2021 COVID-19 Vaccine Completed 12/08/2022, 11/2022, 07/05/2022, Additional history exists Influenza Vaccine Completed 12/08/2022, , 02/17/2021, Additional history exists Procedures Procedure Name Priority Date/Time Associated Diagnosis Comments IMMUNOGLOBULINS (IGG, IGA, AND IGM), S Routine 03/02/2023 10:56 AM PHP ARCHITECT Multiple Myeloma Not Having Achieved Remission (HCC) COMPREHENSIVE METABOLIC PANEL, S/P Routine 03/02/2023 10:56 AM PHP ARCHITECT Multiple Myeloma Not Having Achieved Remission (HCC) CBC WITH DIFFERENTIAL, B Routine 03/02/2023 10:56 AM PHP ARCHITECT Multiple Myeloma Not Having Achieved Remission (HCC) CBC WITH DIFFERENTIAL, B Routine 02/17/2023 8:29 AM PHP ARCHITECT Multiple Myeloma Not Having Achieved Remission (HCC) CBC WITH DIFFERENTIAL, B Routine 02/09/2023 2:36 PM PHP ARCHITECT Multiple Myeloma Not Having Achieved Remission (HCC) IMMUNOGLOBULINS (IGG, IGA, AND IGM), S Routine 02/09/2023 2:36 PM PHP ARCHITECT Multiple Myeloma Not Having Achieved Remission (HCC) CBC WITH DIFFERENTIAL, B Routine 01/30/2023 1:16 PM PHP ARCHITECT Thrombocytopenia (HCC) COMPREHENSIVE METABOLIC PANEL, S/P Routine 01/27/2023 8:00 AM PHP ARCHITECT Multiple Myeloma Not Having Achieved Remission (HCC) CBC WITH DIFFERENTIAL, B Routine 01/27/2023 8:00 AM PHP ARCHITECT Multiple Myeloma Not Having Achieved Remission (HCC) MONOCLONAL GAMMOPATHY DIAGNOSTIC, S Routine 01/20/2023 10:03 AM PHP ARCHITECT Multiple Myeloma Not Having Achieved Remission (HCC) Diarrhea COMPREHENSIVE METABOLIC PANEL, S/P Routine 01/20/2023 10:03 AM PHP ARCHITECT Multiple Myeloma Not Having Achieved Remission (HCC) CBC WITH DIFFERENTIAL, B Routine 01/20/2023 10:03 AM PHP ARCHITECT Multiple Myeloma Not Having Achieved Remission (HCC) GI PATHOGEN PANEL, PCR, F Routine 01/18/2023 3:00 PM PHP ARCHITECT Multiple Myeloma Not Having Achieved Remission (HCC) Diarrhea COMPREHENSIVE METABOLIC PANEL, S/P Routine 01/12/2023 10:10 AM PHP ARCHITECT Multiple Myeloma Not Having Achieved Remission (HCC) CBC WITH DIFFERENTIAL, B Routine 01/12/2023 10:10 AM PHP ARCHITECT Multiple Myeloma Not Having Achieved Remission (HCC) CBC WITH DIFFERENTIAL, B Routine 12/29/2022 1:31 PM CDT Multiple Myeloma Not Having Achieved Remission (HCC) IMMUNOGLOBULINS (IGG, IGA, AND IGM), S Routine 12/29/2022 9:33 AM CDT Multiple Myeloma Not Having Achieved Remission (HCC) CBC WITH DIFFERENTIAL, B Routine 12/15/2022 1:54 PM CDT Multiple Myeloma Not Having Achieved Remission (HCC) from Last 3 Months Results * (ABNORMAL) CBC with Differential, Blood (03/02/2023 10:56 AM PHP ARCHITECT) Only the most recent of9 resultswithin the time period is included. Pathologist [facility] [place] Hemoglobin 11.5(L) 11.6 - 15.0 g/dL 03/02/2023 11:08 AM PHP ARCHITECT FB60 Hematocrit 35.3(L) 35.5 - 44.9 % 03/02/2023 11:08 AM PHP ARCHITECT FB60 Erythrocytes 3.44(L) 3.92 - 5.13 x10(12)/L 03/02/2023 11:08 AM PHP ARCHITECT FB60 MCV 102.6(H) 78.2 - 97.9 fL 03/02/2023 11:08 AM PHP ARCHITECT FB60 RBC Distrib Width 16.1 12.2 - 16.1 % 03/02/2023 11:08 AM PHP ARCHITECT FB60 Platelet Count 45(L) 157 - 371 x10(9)/L 03/02/2023 11:08 AM PHP ARCHITECT FB60 Leukocytes 2.3(L) 3.4 - 9.6 x10(9)/L 03/02/2023 11:08 AM PHP ARCHITECT FB60 Neutrophils 0.90(L) 1.56 - 6.45 x10(9)/L 03/02/2023 11:08 AM PHP ARCHITECT FB60 Lymphocytes 1.20 0.95 - 3.07 x10(9)/L 03/02/2023 11:08 AM PHP ARCHITECT FB60 Monocytes 0.12(L) 0.26 - 0.81 x10(9)/L 03/02/2023 11:08 AM PHP ARCHITECT FB60 Eosinophils 0.05 0.03 - 0.48 x10(9)/L 03/02/2023 11:08 AM PHP ARCHITECT FB60 Basophils <0.04 0.01 - 0.08 x10(9)/L 03/02/2023 11:08 AM PHP ARCHITECT FB60 Blood (Blood, Venous) 03/02/2023 10:56 AM PHP ARCHITECT 03/02/2023 10:56 AM PHP ARCHITECT Mari Noguera M.D. LAB BLOOD ADD-ON [facility] [address] [place] [address], [facility] FB60 [facility] in [address] [address] * (ABNORMAL) Immunoglobulins (IgG, IgA, and IgM) (03/02/2023 10:56 AM PHP ARCHITECT) Only the most recent of3 resultswithin the time period is included. Pathologist [facility] [place] Immunoglobulin A (IgA), S 37(L) 61 - 356 mg/dL 03/03/2023 10:26 AM PHP ARCHITECT [facility] Immunoglobulin M (IgM), S 12(L) 37 - 286 mg/dL 03/03/2023 11:49 AM PHP ARCHITECT [facility] Immunoglobulin G (IgG), S 1060 767 - 1590 mg/dL 03/03/2023 11:24 AM PHP ARCHITECT [facility] Blood (Blood, Venous) 03/02/2023 10:56 AM PHP ARCHITECT 03/03/2023 6:11 AM PHP ARCHITECT Mari Noguera M.D. LAB BLOOD ADD-ON [facility] [address] [place] [address] [facility] [address] [place] [address] * (ABNORMAL) Comprehensive Metabolic Panel (03/02/2023 10:56 AM PHP ARCHITECT) Only the most recent of4 resultswithin the time period is included. Potassium, P 3.7 3.6 - 5.2 mmol/L 03/02/2023 1:54 PM PHP ARCHITECT OWAT Sodium, P 141 135 - 145 mmol/L 03/02/2023 1:54 PM PHP ARCHITECT OWAT Chloride, P 100 98 - 107 mmol/L 03/02/2023 1:54 PM PHP ARCHITECT OWAT Bicarbonate, P 27 22 - 29 mmol/L 03/02/2023 1:54 PM PHP ARCHITECT OWAT Anion Gap, P 14 7 - 15 03/02/2023 1:54 PM PHP ARCHITECT OWAT BUN (Blood Urea Nitrogen), P 36(H) 6 - 21 mg/dL 03/02/2023 1:54 PM PHP ARCHITECT OWAT Creatinine 1.53(H) 0.59 - 1.04 mg/dL 03/02/2023 1:54 PM PHP ARCHITECT OWAT Estimated GFR (eGFR) 35(L) >=60 mL/min/BS A 03/02/2023 1:54 PM PHP ARCHITECT OWAT Comment: Estimated GFR calculated using the 2020 CKD_EPI creatinine equation. Calcium, Total, P 9.8 8.8 - 10.2 mg/dL 03/02/2023 1:54 PM PHP ARCHITECT OWAT Glucose, P 163(H) 70 - 140 mg/dL 03/02/2023 1:54 PM PHP ARCHITECT OWAT Protein, Total, P 7.1 6.3 - 7.9 g/dL 03/02/2023 1:54 PM PHP ARCHITECT OWAT Albumin, P 4.4 3.5 - 5.0 g/dL 03/02/2023 1:54 PM PHP ARCHITECT OWAT Aspartate Aminotransferase (AST), P 30 8 - 43 U/L 03/02/2023 1:54 PM PHP ARCHITECT OWAT Alkaline Phosphatase, P 65 35 - 104 U/L 03/02/2023 1:54 PM PHP ARCHITECT OWAT Alanine Aminotransferase (ALT), P 31 7 - 45 U/L 03/02/2023 1:54 PM PHP ARCHITECT OWAT Bilirubin, Total, P 0.3 0.0 - 1.2 mg/dL 03/02/2023 1:54 PM PHP ARCHITECT OWAT Blood (Blood, Venous) 03/02/2023 10:56 AM PHP ARCHITECT 03/02/2023 1:14 PM PHP ARCHITECT Mari Noguera M.D. LAB BLOOD ADD-ON [facility] [address] [place] [address], [place] OW[place] [facility] in [place] [address] [place] [address] * (ABNORMAL) Monoclonal Gammopathy Diagnostic (01/20/2023 10:03 AM PHP ARCHITECT) Therapeutic Antibody Administered? Unspecified 01/23/2023 7:47 AM PHP ARCHITECT [facility] Total Protein, S 6.4 6.3 - 7.9 g/dL 01/23/2023 9:41 AM PHP ARCHITECT [facility] [place] Free Light Chain, S 1.45 0.3300 - 1.94 mg/dL 01/23/2023 11:12 AM PHP ARCHITECT [facility] [place] Free Light Chain, S 1.41 0.5700 - 2.63 mg/dL 01/23/2023 11:12 AM PHP ARCHITECT [facility] [place]/Lambda FLC Ratio 1.03 0.2600 - 1.65 01/23/2023 11:12 AM PHP ARCHITECT [facility] Albumin 3.3(L) 3.4 - 4.7 g/dL 01/23/2023 1:40 PM PHP ARCHITECT [facility] Alpha-1 Globulin 0.3 0.1 - 0.3 g/dL 01/23/2023 1:40 PM PHP ARCHITECT [facility] Alpha-2 Globulin 1.1(H) 0.6 - 1.0 g/dL 01/23/2023 1:40 PM PHP ARCHITECT [facility] Beta-Globulin 1.0 0.7 - 1.2 g/dL 01/23/2023 1:40 PM PHP ARCHITECT [facility] Gamma-Globulin 0.8 0.6 - 1.6 g/dL 01/23/2023 1:40 PM PHP ARCHITECT [facility] A/G Ratio 1.05 01/23/2023 1:40 PM PHP ARCHITECT [facility] Impression Small abnormality in gamma fraction. See Isotype. 01/23/2023 1:40 PM PHP ARCHITECT [facility] Flag, M-protein Isotype Positive(A) Negative 01/24/2023 3:10 PM PHP ARCHITECT [facility] M-protein Isotype MALDI-TOF MS IgG lambda, monoclonal. 01/24/2023 3:10 PM PHP ARCHITECT [facility] Comment: ----ADDITIONAL INFORMATION---- The submitted sample was assayed by five separate immunopurifications for IgG, IgA, IgM, kappa and lambda. ??The result reflects the findings of either no monoclonal protein detected or those monoclonal immunoglobulins that were detected. This test was developed and its performance characteristics determined by [facility] in a manner consistent with CLIA requirements. This test has not been cleared or approved by the U.S. Food and Drug Administration. Blood (Blood, Venous) 01/20/2023 10:03 AM PHP ARCHITECT 01/23/2023 8:47 AM PHP ARCHITECT Narrative [facility] - 01/24/2023 3:10 PM PHP ARCHITECT Specimen Information: Specimen ID: [id number] Specimen Type: Blood Specimen Collection Start Date: 01/20/2023 10:03 AM Specimen Received Date: 01/23/2023 ??8:47 AM Specimen ID: [id number] Specimen Type: Blood Specimen Collection Start Date: 01/20/2023 10:03 AM Specimen Received Date: 01/23/2023 ??7:47 AM Mari Noguera M.D. LAB BLOOD ADD-ON [facility] [address] [place] [address] [facility] [address] [place], [place] [id number] [place] [address] DR. GORMAN [address] [place] [address] [place] [address] * GI Pathogen Panel, PCR, Feces (01/18/2023 3:00 PM PHP ARCHITECT) Specimen Source STOOL 1:03 PM PHP ARCHITECT [facility] Campylobacter species Negative Negative 01/20/2023 1:03 PM PHP ARCHITECT [facility] C. difficile toxin Negative Negative 2022 1:03 PM PHP ARCHITECT [facility] Plesiomonas shigelloides Negative Negative 01/20/2023 1:03 PM PHP ARCHITECT [facility] Salmonella species Negative Negative 2022 1:03 PM PHP ARCHITECT [facility] Vibrio species Negative Negative 01/20/2023 1:03 PM PHP ARCHITECT [facility] Vibrio cholerae Negative Negative 1:03 PM PHP ARCHITECT [facility] Yersinia species Negative Negative 01/21/20 1:03 PM PHP ARCHITECT [facility] Enteroaggregative E. coli (EAEC) Negative Negative 01/20/2023 1:03 PM PHP ARCHITECT [facility] Enteropathogenic E. coli (EPEC) Negative Negative 01/20/2023 1:03 PM PHP ARCHITECT [facility] Enterotoxigenic E. coli (ETEC) Negative Negative 01/20/2023 1:03 PM PHP ARCHITECT [facility] Shiga toxin producing E. coli Negative Negative 01/20/2023 1:03 PM PHP ARCHITECT [facility] Shigella/Enteroinvas carlos E. coli Negative Negative 01/20/2023 1:03 PM PHP ARCHITECT [facility] Cryptosporidium species Negative Negative 01/20/2023 1:03 PM PHP ARCHITECT [facility] Cyclospora cayetanensis Negative Negative 01/20/2023 1:03 PM PHP ARCHITECT [facility] Entamoeba histolytica Negative Negative 01/20/2023 1:03 PM PHP ARCHITECT [facility] Giardia Negative Negative 01/20/2023 1:03 PM PHP ARCHITECT [facility] Adenovirus F40/41 Negative Negative 023 1:03 PM PHP ARCHITECT [facility] Astrovirus Negative Negative 01/20/2023 1:03 PM PHP ARCHITECT [facility] Norovirus GI/GII Negative Negative 01/21/20 1:03 PM PHP ARCHITECT [facility] Rotavirus Ag, F Negative Negative 1:03 PM PHP ARCHITECT [facility] Sapovirus Negative Negative 01/20/2023 1:03 PM PHP ARCHITECT [facility] Comment: ----ADDITIONAL INFORMATION---- This assay is performed using the FDA-cleared FilmArray GI Panel ([employer] Stool (Stool) 01/18/2023 3:0 0 PM PHP ARCHITECT 01/20/2023 9:53 AM PHP ARCHITECT Mari Noguera M.D. LAB MICROBIOLOGY - G ENERAL ORDERABLES [facility] [place] [place] [address], [facility] RDWG [address] [place] [address] from Last 3 Months Additional Health Concerns Infection Onset Date Last Indicated Protective Environment 06/03/2022 3 Advance Directives For more information, please contact: [phone] Latest Code Status on File Code Status Date Activated Date Inactivated Comments Full Code 12/07/2021 2:52 PM 12/15/2021 4:48 PM Question Answer Comments Full Code: Discussed Care Teams Tool Pusher Relationship Specialty Start Date End Date Elsewhere, Pcp PCP - General Internal Medicine 04/01/22
--- OUTSIDE RECORDS SUMMARY | 2023-03-08 08:46 | XMS_ITS | Encounter Summary ---
Author Name Unknown Organization [facility] Address [address] [place] [address] Care Team Providers Care Fabric Finisher Name Role Phone Elsewhere, Pcp Primary Care Provider Unavailabl e Reason for Visit * Episode Based Medications (Routine) - Authorized Specialty Diagnoses / Procedures Referred By Guillermina zamora Referred To Contact Diagnoses Multiple Myeloma Not Having Achieved Remission (HCC) Procedures WV ONDANSETRON HCL INJECTION WV DARATUMUMAB, HYALURONIDASE W[place] BORTEZOMIB INJECTION 1,800 mg on Day 1, 8, 15, 22 for cycles 1 & 2, Day 1, 15 3-6, Day 1 for cycle 7 / 28 day cycles / 17 total visits Mari Noguera M.D. [address] [place] [address] [facility] Region Referral ID Status Reason Start Date Expiration Date V isits Requested Visits Authorized [id number] Authorized 05/28/2021 02/27/2024 31 31 Encounter Details Date Type Department Care Team (Latest Contact Info) Description 03/02/2023 10:39 AM STATION OPERATOR - 03/02/2023 11:59 PM STATION OPERATOR Hospital Encounter Department of Laboratory Medicine in [place] [address] [address] [facility] [place] [address] Mari Noguera M.D. [address] [place] [address] Multiple Myeloma Not Having Achieved Remission (HCC) Discharge Disposition: Home or Self Care Social History Tobacco Use Types Packs/Day Years Used Date Smoking Tobacco: Former Smokeless Tobacco: Never Alcohol Use Standard Drinks/Week Comments Not Currently [...] week 06/11/2021 How often do you attend chur or latter-day services? 1 to 4 times per year 06/11/2021 Do you belong to any clubs o r organizations such as nondenominational groups, unions, fraternal or athletic groups, or [...] Answer Date Recorded PHQ-2 Score 4 11/18/2021 [facility] of Occupat ional Health - Occupational Stress Questionnaire Answer [...] place to sleep or slept in a usp (including now)? No 06/11/2021 Nutrition Answer Date [...] Orientation Straight 06/11/2021 7: 58 PM CDT documented as of this encounter Medications at Time of Discharge Medication Sig Dispensed Refills Start Date End Date acyclovir (ZOVIRAX) 200 mg capsule TAKE 2 CAPSULES(400 MG) BY MOUTH TWICE DAILY 60 capsule 11 02/09/[address] tabletIndications:Mult iple Myeloma Not Having Achieved Remission (HCC) Take 1 tablet (325 mg total) by mouth daily. 90 tablet 3 03/28/2022 bortezomib (VELCADE) 3.5 mg injection Infuse 2.5 mg/m2 into a venous catheter over 336 hr. 0 cyanocobalamin (VITAMIN B12) 1,000 mcg tablet Take 1,000 mcg by mouth daily. 0 escitalopram (LEXAPRO) 10 mg tablet TAKE 1 TABLET(10 MG) BY MOUTH DAILY 30 tablet 3 05/04/2022 hydroCHLOROthiazide (HYDRODIURIL) 12.5 mg tablet Take 12.5 mg by mouth 2 (two) times a day. 0 09/28/2022 lisinopriL (PRINIVIL,ZESTRIL) 40 mg tablet Take 1 tablet by mouth daily. 40 mg in the am 20 mg in pm 0 04/25/2022 loperamide (IMODIUM A-D) 2 mg capsule Take 2-4 mg by mouth 4 (four) times a day as needed. 0 06/22/2017 LORazepam (ATIVAN) 0.5 mg tablet Take 0.5 mg by mouth 3 (three) times a day as needed for anxiety (Patient taking AM and PM). 0 magnesium chloride (SLOW-MAG) 71.[address] tablet Take 2 tablets (143 mg total) by mouth every morning before breakfast. Do not crush or chew. 30 tablet 1 01/28/2022 metFORMIN (GLUCOPHAGE) 500 mg tablet 500 mg 2 (two) times a day. 500 mg in AM and 1000 mg in PM 0 05/03/2021 omeprazole (PriLOSEC) [address] capsule Take 1 capsule (20 mg total) by mouth every morning before breakfast. 30 capsule 0 12/04/2021 ondansetron (ZOFRAN) 8 mg tabletIndications:Mult iple Myeloma Not Having Achieved Remission (HCC) Take 1 tablet (8 mg total) by mouth every 8 (eight) hours as needed for nausea or vomiting. 30 tablet 3 03/28/2022 03/28/2023 prochlorperazine (COMPAZINE) 10 mg tabletIndications:Mult iple Myeloma Not Having Achieved Remission (HCC) Take 1 tablet (10 mg total) by mouth every 6 (six) hours as needed for nausea or vomiting (unrelieved by ondansetron). 30 tablet 3 03/28/2022 03/28/2023 lenalidomide (REVLIMID) 10 mg capsuleIndications:Mul tiple Myeloma Not Having Achieved Remission (HCC) TAKE 1 CAPSULE BY MOUTH 1 TIME A DAY FOR 21 DAYS ON THEN 7 DAYS OFF 21 capsule 0 02/01/2023 03/03/2023 documented as of this encounter Plan of Treatment Upcoming Encounters Date Type Department Care Team (Late st Contact Info) Description 03/16/2023 10:30 AM STATION OPERATOR Appointment Department of Laboratory Medicine in [address] [phone] Mari Noguera M.D. [address] [place] [phone] 03/17/2023 8:40 AM STATION OPERATOR Office Visit Department of Oncology in [address] [phone] Mari Noguera M.D. [address] [place] [phone] 03/17/2023 9:45 AM STATION OPERATOR Infusion Department of Infusion Therapy in [address] [phone] Mari Noguera M.D. [address] [place] [phone] 03/31/2023 10:10 AM STATION OPERATOR Appointment Department of Laboratory Medicine in [address] [place] [address] Mari Noguera M.D. [address] [place] [phone] 04/04/2023 8:20 AM STATION OPERATOR Office Visit Department of Oncology in [address] [phone] Mari Noguera M.D. [address] [place] [phone] 04/04/2023 9:00 AM STATION OPERATOR Infusion Department of Infusion Therapy in [address] [phone] Mari Noguera M.D. [address] [place] [phone] 04/13/2023 10:10 AM STATION OPERATOR Appointment Department of Laboratory Medicine in [address] [place] [address] Mari Noguera M.D. [address] [place] [phone] 04/14/2023 9:00 AM STATION OPERATOR Infusion Department of Infusion Therapy in [address] [phone] Mari Noguera M.D. [address] [place] [phone] documented as of this encounter Procedures Procedure Name Priority Date/Time Associated Diagnosis Comments CBC WITH DIFFERENTIAL, B Routine 03/02/2023 10:56 AM STATION OPERATOR Multiple Myeloma Not Having Achieved Remission (HCC) IMMUNOGLOBULINS (IGG, IGA, AND IGM), S Routine 03/02/2023 10:56 AM STATION OPERATOR Multiple Myeloma Not Having Achieved Remission (HCC) COMPREHENSIVE METABOLIC PANEL, S/P Routine 03/02/2023 10:56 AM STATION OPERATOR Multiple Myeloma Not Having Achieved Remission (HCC) documented in this encounter Results * (ABNORMAL) Immunoglobulins (IgG, IgA, and IgM) (03/02/2023 10:56 AM STATION OPERATOR) Immunoglobulin A (IgA), S 37(L) 61 - 356 mg/dL 03/03/2023 10:26 AM STATION OPERATOR [facility] Immunoglobulin M (IgM), S 12(L) 37 - 286 mg/dL 03/03/2023 11:49 AM STATION OPERATOR [facility] Immunoglobulin G (IgG), S 1060 767 - 1590 mg/dL 03/03/2023 11:24 AM STATION OPERATOR [facility] Blood (Blood, Venous) 03/02/2023 10:56 AM STATION OPERATOR 03/03/2023 6:11 AM STATION OPERATOR Mari Noguera M.D. LAB BLOOD ADD-ON [facility] [address] [place] [address] [facility] [address] [place] [address] * (ABNORMAL) Comprehensive Metabolic Panel (03/02/2023 10:56 AM STATION OPERATOR) Pathologist [facility] Potassium, P 3.7 3.6 - 5.2 mmol/L 03/02/2023 1:54 PM STATION OPERATOR OWAT Sodium, P 141 135 - 145 mmol/L 03/02/2023 1:54 PM STATION OPERATOR OWAT Chloride, P 100 98 - 107 mmol/L 03/02/2023 1:54 PM STATION OPERATOR OWAT Bicarbonate, P 27 22 - 29 mmol/L 03/02/2023 1:54 PM STATION OPERATOR OWAT Anion Gap, P 14 7 - 15 03/02/2023 1:54 PM STATION OPERATOR OWAT BUN (Blood Urea Nitrogen), P 36(H) 6 - 21 mg/dL 03/02/2023 1:54 PM STATION OPERATOR OWAT Creatinine 1.53(H) 0.59 - 1.04 mg/dL 03/02/2023 1:54 PM STATION OPERATOR OWAT Estimated GFR (eGFR) 35(L) >=60 mL/min/BS A 03/02/2023 1:54 PM STATION OPERATOR OWAT Comment: Estimated GFR calculated using the 2020 CKD_EPI creatinine equation. Calcium, Total, P 9.8 8.8 - 10.2 mg/dL 03/02/2023 1:54 PM STATION OPERATOR OWAT Glucose, P 163(H) 70 - 140 mg/dL 03/02/2023 1:54 PM STATION OPERATOR OWAT Protein, Total, P 7.1 6.3 - 7.9 g/dL 03/02/2023 1:54 PM STATION OPERATOR OWAT Albumin, P 4.4 3.5 - 5.0 g/dL 03/02/2023 1:54 PM STATION OPERATOR OWAT Aspartate Aminotransferase (AST), P 30 8 - 43 U/L 03/02/2023 1:54 PM STATION OPERATOR OWAT Alkaline Phosphatase, P 65 35 - 104 U/L 03/02/2023 1:54 PM STATION OPERATOR OWAT Alanine Aminotransferase (ALT), P 31 7 - 45 U/L 03/02/2023 1:54 PM STATION OPERATOR OWAT Bilirubin, Total, P 0.3 0.0 - 1.2 mg/dL 03/02/2023 1:54 PM STATION OPERATOR OWAT Blood (Blood, Venous) 03/02/2023 10:56 AM STATION OPERATOR 03/02/2023 1:14 PM STATION OPERATOR Mari Noguera M.D. LAB BLOOD ADD-ON [facility] [address] [place] [address], [place] OW[place] [facility] [place] [address] [place] [address] * (ABNORMAL) CBC with Differential, Blood (03/02/2023 10:56 AM STATION OPERATOR) Hemoglobin 11.5(L) 11.6 - 15.0 g/dL 03/02/2023 11:08 AM STATION OPERATOR FB60 Hematocrit 35.3(L) 35.5 - 44.9 % 03/02/2023 11:08 AM STATION OPERATOR FB60 Erythrocytes 3.44(L) 3.92 - 5.13 x10(12)/L 03/02/2023 11:08 AM STATION OPERATOR FB60 MCV 102.6(H) 78.2 - 97.9 fL 03/02/2023 11:08 AM STATION OPERATOR FB60 RBC Distrib Width 16.1 12.2 - 16.1 % 03/02/2023 11:08 AM STATION OPERATOR FB60 Platelet Count 45(L) 157 - 371 x10(9)/L 03/02/2023 11:08 AM STATION OPERATOR FB60 Leukocytes 2.3(L) 3.4 - 9.6 x10(9)/L 03/02/2023 11:08 AM STATION OPERATOR FB60 Neutrophils 0.90(L) 1.56 - 6.45 x10(9)/L 03/02/2023 11:08 AM STATION OPERATOR FB60 Lymphocytes 1.20 0.95 - 3.07 x10(9)/L 03/02/2023 11:08 AM STATION OPERATOR FB60 Monocytes 0.12(L) 0.26 - 0.81 x10(9)/L 03/02/2023 11:08 AM STATION OPERATOR FB60 Eosinophils 0.05 0.03 - 0.48 x10(9)/L 03/02/2023 11:08 AM STATION OPERATOR FB60 Basophils <0.04 0.01 - 0.08 x10(9)/L 03/02/2023 11:08 AM STATION OPERATOR FB60 Blood (Blood, Venous) 03/02/2023 10:56 AM STATION OPERATOR 03/02/2023 10:56 AM STATION OPERATOR Mari Noguera M.D. LAB BLOOD ADD-ON [facility] [address] [place] [address], [facility] FB60 [facility] [place] [address] [place] [address] documented in this encounter Visit Diagnoses Diagnosis Multiple Myeloma Not Having Achieved Remission (HCC) documented in this encounter Additional Health Concerns Infection Onset Date Last Indicated Resolved Time Protective Environment 06/03/2022 06/03/2022 documented as of this encounter Care Teams Fabric Finisher Relationship Specialty Start Date End Date Elsewhere, Pcp PCP - General Internal Medicine 04/01/22 documented as of this encounter
--- OUTSIDE RECORDS SUMMARY | 2023-03-08 08:46 | XMS_ITS | Encounter Summary ---
Author Name Unknown Organization [facility] Address [address] [place] [address] Care Team Providers Care Ground Control Approach Technician Name Role Phone Elsewhere, Pcp Primary Care Provider Unavailabl e Reason for Referral * Outpatient (Routine) - Authorized Specialty Diagnoses / Procedures Referred By Guillermina zamora Referred To Contact Hematology Oncology Mari Noguera M.D. [address] [place] [phone] [facility] Region Referral ID Status Reason Start Date Expiration Date V isits Requested Visits Authorized [id number] Authorized 03/03/2023 03/02/2026 1 1 TRONIC SECURITY SPECIALIST Reason for Visit * Reason Comments Follow-up * Episode Based Medications (Routine) - Authorized Specialty Diagnoses / Procedures Referred By Guillermina zamora Referred To Contact Diagnoses Multiple Myeloma Not Having Achieved Remission (HCC) Procedures TX ONDANSETRON HCL INJECTION TX DARATUMUMAB, HYALURONIDASE TX BORTEZOMIB INJECTION 1,800 mg on Day 1, 8, 15, 22 for cycles 1 & 2, Day 1, 15 3-6, Day 1 for cycle 7 / 28 day cycles / 17 total visits Mari Noguera M.D. [address] [place] [phone] [facility] Region Referral ID Status Reason Start Date Expiration Date V isits Requested Visits Authorized [id number] Authorized 05/28/2021 02/27/2024 31 31 Encounter Details Date Type Department Care Team (Late st Contact Info) Description 03/03/2023 3:00 PM ELECTRONIC SECURITY SPECIALIST Office Visit Department of Oncology in [place], [place] [address] [place] [phone] Mari Noguera M.D. [address] [place] [phone] Multiple Myeloma Not Having Achieved Remission (HCC) Social History Tobacco Use Types Packs/Day Years [...] 06/11/2021 How often do you attend chur ch or uatsdin services? 1 to 4 times per year 06/11/2021 Do you belong to any clubs o r organizations such as voodoo groups, unions, fraternal or athletic groups, or [...] Answer Date Recorded PHQ-2 Score 4 11/18/2021 [facility] - Occupational Stress [...] money to buy more. Never true 06/12/19 22 Within the past 12 months, t he [...] place to sleep or slept in a senior care (including now)? No 06/11/2021 Nutrition Answer Date [...] PM CDT documented as of this encounter Last Filed Vital Signs Vital Sign Reading Time Taken Comments Blood Pressure 97/47 03/03/2023 3:26 PM ELECTRONIC SECURITY SPECIALIST Pulse 56 03/03/2023 3:26 PM ELECTRONIC SECURITY SPECIALIST Temperature 36.6 ??C (97.9 ??F) 03/03/2023 3:23 PM CS T Respiratory Rate - - Oxygen Saturation 97% 03/03/2023 3:23 PM ELECTRONIC SECURITY SPECIALIST Room air Inhaled Oxygen Concentration - - Weight 83.7 kg (184 lb 8.4 oz) 03/03/2023 3:23 P M ELECTRONIC SECURITY SPECIALIST Height - - Body Mass Index 33.36 10/07/2022 11:14 AM CDT documented in this encounter Plan of Treatment Upcoming Encounters Date Type Department Care Team (Late st Contact Info) Description 03/16/2023 10:30 AM ELECTRONIC SECURITY SPECIALIST Appointment Department of Laboratory Medicine in [place], [place] [address] [place] [phone] Mari Noguera M.D. [address] [place] [phone] 03/17/2023 8:40 AM ELECTRONIC SECURITY SPECIALIST Office Visit Department of Oncology in [address] [place] [phone] Mari Noguera M.D. [address] [place] [phone] 03/17/2023 9:45 AM ELECTRONIC SECURITY SPECIALIST Infusion Department of Infusion Therapy in [address] [place] [address] Mari Noguera M.D. [address] [place] [phone] 03/31/2023 10:10 AM ELECTRONIC SECURITY SPECIALIST Appointment Department of Laboratory Medicine in [address] [place] [phone] Mari Noguera M.D. [address] [place] [phone] 04/04/2023 8:20 AM ELECTRONIC SECURITY SPECIALIST Office Visit Department of Oncology in [address] [place] [phone] Mari Noguera M.D. [address] [place] [phone] 04/04/2023 9:00 AM ELECTRONIC SECURITY SPECIALIST Infusion Department of Infusion Therapy in [address] [place] [address] Mari Noguera M.D. [address] [place] [phone] 04/13/2023 10:10 AM ELECTRONIC SECURITY SPECIALIST Appointment Department of Laboratory Medicine in [address] [phone] Mari Noguera M.D. [address] [place] [phone] 04/14/2023 9:00 AM ELECTRONIC SECURITY SPECIALIST Infusion Department of Infusion Therapy in [place], [place] [address] [place] [phone] Mari Noguera M.D. [address] [place] [phone] Scheduled Referrals Name Type Priority Associated Diagnoses Order Schedule Hematology office visit (clinic) [facility] Region; General Outpatient Referral Routine Expected: 03/17/2023 (Approximate), Expires: 06/01/2024 documented as of this encounter Visit Diagnoses Diagnosis Multiple Myeloma Not Having Achieved Remission (HCC) documented in this encounter Additional Health Concerns Infection Onset Date Last Indicated Resolved Time Protective Environment 06/03/2022 06/03/2022 documented as of this encounter Care Teams Ground Control Approach Technician Relationship Specialty Start Date End Date Elsewhere, Pcp PCP - General Internal Medicine 04/01/22 documented as of this encounter
--- OUTSIDE RECORDS SUMMARY | 2023-03-08 08:46 | XMS_ITS | Encounter Summary ---
Author Name Unknown Organization [facility] Address [address] [place] [address] Care Team Providers Care Production Broacher Name Role Phone Elsewhere, Pcp Primary Care Provider Unavailabl e Reason for Visit * Reason Comments Med Refill Encounter Details Date Type Department Care Team (Late st Contact Info) Description 03/03/2023 Refill Department of Oncology in [place], [place] [address] [place] [phone] Mari Noguera M.D. [address] [place] [phone] Med Refill Social History Tobacco Use Types Packs/Day Years [...] week 06/11/2021 How often do you attend [facility] or [facility] services? 1 to 4 times per year 06/11/2021 Do you belong to any clubs o r organizations such as zoroastrianism groups, unions, fraternal or athletic groups, or [...] Answer Date Recorded PHQ-2 Score 4 11/18/2021 [facility] - Occupational Stress Questionnaire Answer Date [...] place to sleep or slept in a nursing home (including now)? No 06/11/2021 Nutrition Answer Date [...] PM CDT documented as of this encounter Plan of Treatment Upcoming Encounters Date Type Department Care Team (Late st Contact Info) Description 03/16/2023 10:30 AM MENTAL HYGIENIST Appointment Department of Laboratory Medicine in [place] [address] [place] [phone] Mari Noguera M.D. [address] [place] [phone] 03/17/2023 8:40 AM MENTAL HYGIENIST Office Visit Department of Oncology in [address] [place] [phone] Mari Noguera M.D. [address] [place] [phone] 03/17/2023 9:45 AM MENTAL HYGIENIST Infusion Department of Infusion Therapy in [address] [place] [phone] Mari Noguera M.D. [address] [place] [phone] 03/31/2023 10:10 AM MENTAL HYGIENIST Appointment Department of Laboratory Medicine in [address] [phone] Mari Noguera M.D. [address] [place] [phone] 04/04/2023 8:20 AM MENTAL HYGIENIST Office Visit Department of Oncology in [address] [place] [phone] Mari Noguera M.D. [address] [place] [phone] 04/04/2023 9:00 AM MENTAL HYGIENIST Infusion Department of Infusion Therapy in [address] [phone] Mari Noguera M.D. [address] [place] [phone] 04/13/2023 10:10 AM MENTAL HYGIENIST Appointment Department of Laboratory Medicine in [address] [phone] Mari Noguera M.D. [address] [place] [phone] 04/14/2023 9:00 AM MENTAL HYGIENIST Infusion Department of Infusion Therapy in [place], [place] [address] [place] [phone] Mari Noguera M.D. [address] [place] [phone] documented as of this encounter Visit Diagnoses Diagnosis Multiple Myeloma Not Having Achieved Remission (HCC) documented in this encounter Additional Health Concerns Infection Onset Date Last Indicated Resolved Time Protective Environment 06/03/2022 06/03/2022 documented as of this encounter Care Teams Production Broacher Relationship Specialty Start Date End Date Elsewhere, Pcp PCP - General Internal Medicine 04/01/22 documented as of this encounter
--- OUTSIDE RECORDS SUMMARY | 2023-03-08 08:46 | XMS_ITS | Referral Summary ---
Author Name Unknown Organization [facility] Address [address] [place] [address] Care Team Providers Care Call Box Wirer Name Role Phone Elsewhere, Pcp Primary Care Provider Unavailabl e Source Comments Patient records contain information from all sites at [facility]. For routine questions regarding patient records, call [phone] during business hours, M-F 8:00 AM - 5:00 PM Central Time. Record requests for emergency care only can be directed to [phone] at any time.[facility] Encounters Date Type Department Care Team Description 03/07/2023 Refill Department of Oncology in [address] [phone] Mari Noguera M.D. Med Refill 03/03/2023 Refill Department of Oncology in [address] [phone] Mari Noguera M.D. Med Refill 03/03/2023 3:00 PM ARMATURE VARNISHER Office Visit Department of Oncology in [address] [phone] Mari Noguera M.D. Multiple Myeloma Not Having Achieved Remission (HCC) 03/02/2023 10:39 AM ARMATURE VARNISHER - 03/02/2023 11:59 PM ARMATURE VARNISHER Hospital Encounter Department of Laboratory Medicine in [place], [place] [address] [place] [phone] Mari Noguera M.D. Multiple Myeloma Not Having Achieved Remission (HCC) Discharge Disposition: Home or Self Care 02/23/2023 Refill Department of Oncology in [address] [phone] Mari Noguera M.D. Med Refill 02/17/2023 Orders Only Department of Oncology in [address] [phone] Mari Noguera M.D. Multiple Myeloma Not Having Achieved Remission (HCC) (Primary Dx) 02/17/2023 8:23 AM ARMATURE VARNISHER - 02/17/2023 11:59 PM ARMATURE VARNISHER Hospital Encounter Department of Laboratory Medicine in [address] [phone] Mari Noguera M.D. Multiple Myeloma Not Having Achieved Remission (HCC) Discharge Disposition: Home or Self Care 02/17/2023 9:15 AM ARMATURE VARNISHER Infusion Department of Infusion Therapy in [address] [phone] Mari Noguera M.D. Multiple Myeloma Not Having Achieved Remission (HCC) (Primary Dx) 02/14/2023 Clinical Communication Department of Oncology in [address] [phone] Mari Noguera M.D. Medical Certification Form ([employer]) 02/10/2023 9:15 AM ARMATURE VARNISHER Infusion Department of Infusion Therapy in [address] [phone] Mari Noguera M.D. Multiple Myeloma Not Having Achieved Remission (HCC) (Primary Dx) 02/09/2023 2:29 PM ARMATURE VARNISHER - 02/09/2023 11:59 PM ARMATURE VARNISHER Hospital Encounter Department of Laboratory Medicine in [address] [phone] Mari Noguera M.D. Multiple Myeloma Not Having Achieved Remission (HCC) Discharge Disposition: Home or Self Care 02/05/2023 Refill [facility] in [place], [place] [address] [place] [address] Jeannie Headley APRN, AlexyN.P., D.N.P., M.S.N. Med Refill 01/30/2023 1:09 PM ARMATURE VARNISHER - 01/30/2023 11:59 PM ARMATURE VARNISHER Hospital Encounter Department of Laboratory Medicine in [address] [phone] Mari Noguera M.D. Thrombocytopenia (HCC) Discharge Disposition: Home or Self Care 01/30/2023 Orders Only Department of Oncology in [address] [phone] Anna Rosa R.N. Thrombocytopenia (HCC) (Primary Dx) 01/30/2023 Orders Only Department of Oncology in [place], [place] [address] [place] [address] Mari Noguera M.D. 01/30/2023 8:00 AM ARMATURE VARNISHER Infusion Department of Infusion Therapy in [address] [phone] Mari Noguera M.D. Multiple Myeloma Not Having Achieved Remission (HCC) (Primary Dx) 01/27/2023 7:50 AM ARMATURE VARNISHER - 01/27/2023 11:59 PM ARMATURE VARNISHER Hospital Encounter Department of Laboratory Medicine in [address] [phone] Mari Noguera M.D. Multiple Myeloma Not Having Achieved Remission (HCC) Discharge Disposition: Home or Self Care 01/27/2023 8:40 AM ARMATURE VARNISHER Office Visit Department of Oncology in [address] [phone] Mari Noguera M.D. Multiple Myeloma Not Having Achieved Remission (HCC) (Primary Dx); Transplant Stem Cell (HCC); Thrombocytopenia (HCC) 01/25/2023 Orders Only Department of Oncology in [place], [place] [address] [place] [address] Mari Noguera M.D. 01/23/2023 Refill Department of Oncology in [address] [place] [address] Mari Noguera M.D. Med Refill 01/20/2023 Clinical Communication Department of Oncology in [address] [place] [address] Mari Noguera M.D. 01/20/2023 Clinical Communication Department of Oncology in [address] [phone] Mari Noguera M.D. Lab Question 01/20/2023 9:50 AM ARMATURE VARNISHER - 01/20/2023 11:59 PM ARMATURE VARNISHER Hospital Encounter Department of Laboratory Medicine in [address] [phone] Mari Noguera M.D. Multiple Myeloma Not Having Achieved Remission (HCC); Diarrhea Discharge Disposition: Home or Self Care 01/20/2023 11:45 AM ARMATURE VARNISHER Infusion Department of Infusion Therapy in [address] [phone] Mari Noguera M.D. Multiple Myeloma Not Having Achieved Remission (HCC) (Primary Dx) 01/18/2023 9:33 AM ARMATURE VARNISHER - 01/18/2023 11:59 PM ARMATURE VARNISHER Hospital Encounter Department of Laboratory Medicine in [address] [phone] Mari Noguera M.D. Discharge Disposition: Home or Self Care 01/18/2023 Orders Only Department of Oncology in [address] [phone] Mari Noguera M.D. Multiple Myeloma Not Having Achieved Remission (HCC) (Primary Dx) 01/13/2023 8:52 AM ARMATURE VARNISHER - 01/13/2023 11:59 PM ARMATURE VARNISHER Hospital Encounter Department of Laboratory Medicine in [address] [phone] Mari Noguera M.D. Multiple Myeloma Not Having Achieved Remission (HCC); Diarrhea Discharge Disposition: Home or Self Care 01/13/2023 8:40 AM ARMATURE VARNISHER Office Visit Department of Oncology in [address] [phone] Mari Noguera M.D. Multiple Myeloma Not Having Achieved Remission (HCC) (Primary Dx); Diarrhea; Transplant Stem Cell (HCC); Thrombocytopenia (HCC) 01/12/2023 9:54 AM ARMATURE VARNISHER - 01/12/2023 11:59 PM ARMATURE VARNISHER Hospital Encounter Department of Laboratory Medicine in [address] [phone] Mari Noguera M.D. Multiple Myeloma Not Having Achieved Remission (HCC) Discharge Disposition: Home or Self Care 01/02/2023 Specialty Pharmacy [facility] [address] [place] [address] Aylin Sahu, PharmAbrahamD., R.Ph. 12/30/2022 9:15 AM CDT Infusion Department of Infusion Therapy in [address] [phone] Mari Noguera M.D. Multiple Myeloma Not Having Achieved Remission (HCC) (Primary Dx); Transplant Stem Cell (HCC); Multiple Myeloma In Remission (HCC) 12/29/2022 1:21 PM CDT - 12/29/2022 11:59 PM CDT Hospital Encounter Department of Laboratory Medicine in [address] [phone] Mari Noguera M.D. Multiple Myeloma Not Having Achieved Remission (HCC) Discharge Disposition: Home or Self Care 12/29/2022 Orders Only Department of Infusion Therapy in [address] [phone] Donita Sandhu, RMaría Multiple Myeloma Not Having Achieved Remission (HCC) (Primary Dx) 12/29/2022 9:20 AM CDT - 12/29/2022 1:20 PM CDT Hospital Encounter Department of Laboratory Medicine in [address] [phone] Mari Noguera M.D. Multiple Myeloma Not Having Achieved Remission (HCC) Discharge Disposition: Home or Self Care 12/27/2022 Clinical Communication Department of Oncology in [address] [phone] Mari Noguera M.D. Nurse Assessment 12/27/2022 Refill Department of Oncology in [address] [phone] Mari Noguera M.D. Med Refill 12/26/2022 Orders Only Department of Oncology in [address] [phone] Mari Noguera M.D. Multiple Myeloma Not Having Achieved Remission (HCC) 12/24/2022 Orders Only Department of Oncology in [place], [place] [address] [place] [address] Mari Noguera M.D. 12/20/2022 Clinical Communication [facility] [address] [place] [phone] Gregoria May C.Ph.T. New Med Request 12/20/2022 Clinical Communication [facility] [address] [place] [phone] Katelin Vargas, Pharm.D., R.Ph. MCSP unable to fill generic Revlimid for patient 12/20/2022 Clinical Communication Pharmacy Prior Auth RO [phone] Jovita Espinosa 12/20/2022 Clinical Communication Department of Oncology in [address] [phone] Mari Noguera M.D. Rx Denial (REVLIMID CAPSULE) 12/16/2022 Orders Only Department of Oncology in [place], [place] [address] [place] [address] Nasim Mchugh M.D. Multiple Myeloma Not Having Achieved Remission (HCC) (Primary Dx) 12/16/2022 2:15 PM CDT Infusion Department of Infusion Therapy in [address] [phone] Mari Noguera M.D. Multiple Myeloma Not Having Achieved Remission (HCC) (Primary Dx) 12/15/2022 1:47 PM CDT - 12/15/2022 11:59 PM CDT Hospital Encounter Department of Laboratory Medicine in [place] [address] [place] [phone] Mari Noguera M.D. Multiple Myeloma Not Having Achieved Remission (HCC) Discharge Disposition: Home or Self Care 12/13/2022 Refill Department of Oncology in [address] [phone] Mari Noguera M.D. Med Refill 12/07/2022 Refill [facility], Ninth Floor [address] [place] [phone] Brooklynn Salinas APRN, C.N.P., D.N.P. Med Refill from Last 3 Months Allergies Active Allergy Reactions Criticality Noted Date [...] Informant: Self, Reported on 11/11/2022 lisinopriL (PRINIVIL,ZESTR IL) 40 mg tablet Take 1 tablet by [...] 21 capsule 0 3 03/03/19 24 Discontinued(Reo rder) Active Problems Problem Noted Date Diagnosed Date COVID-19 Infection 03/22/2022 Overview: This patients COVID history is as follows: Initial date of symptoms: 03/18/22 Symptoms at onset: not severe Date of positive test: 03-19-22 Initial treatment paxlovid Qualifying condition/medication for CCP: Multiple myeloma Blood type / location: ordered for 03/23/22 [place] Infusion dates: Ordered for [place] 03/23/22 Follow up 03-25-22. Feeling much better. Only has residual slight cough and nasal congestion Hypokalemia 12/17/2021 Hypomagnesemia 12/16/2021 Diabetes Mellitus Type 2 12/07/2021 Weakness General 12/07/2021 Transplant Stem Cell 09/24/2021 History Of Falling 09/23/2021 Multiple Myeloma Not Having Achieved Remission 0 05/28/2021 Resolved Problems Problem Noted Date Diagnosed Date Resolved Date Multiple Myeloma In Remission 10/22/2021 07/08/2022 Immunizations Name Administration Dates Next Due DTaP-IPV/Hib [...] quad (FLUZONE/FLUARIX) (6 months and older)(PF) 01/06/2009 Social History Tobacco Use Types Packs/Day Years [...] How often do you attend chur or advent services? 1 to 4 times per year [...] Answer Date Recorded PHQ-2 Score 4 11/18/2021 [facility] - Occupational [...] place to sleep or slept in a [place] facility (including now)? No 06/11/2021 Nutrition Answer Date [...] Comments Blood Pressure 97/47 03/03/2023 3:26 PM ARMATURE VARNISHER Pulse 56 03/03/2023 3:26 PM ARMATURE VARNISHER Temperature 36.6 ??C (97.9 ??F) 03/03/2023 3:23 PM CS T Respiratory Rate 18 02/17/2023 9:10 AM ARMATURE VARNISHER Oxygen Saturation 97% 03/03/2023 3:23 PM ARMATURE VARNISHER Room air Inhaled Oxygen Concentration - - Weight 83.7 kg (184 lb 8.4 oz) 03/03/2023 3:23 P M ARMATURE VARNISHER Height 158.4 cm (5' 2.36) 10/07/2022 11:14 AM C DT Body Mass Index 33.36 10/07/2022 11:14 AM CDT Plan of Treatment Upcoming Encounters Date Type Department Care Team (Late st Contact Info) Description 03/16/2023 10:30 AM ARMATURE VARNISHER Appointment Department of Laboratory Medicine in [address] [phone] Mari Noguera M.D. [address] [place] [phone] 03/17/2023 8:40 AM ARMATURE VARNISHER Office Visit Department of Oncology in [address] [phone] Mari Noguera M.D. [address] [place] [phone] 03/17/2023 9:45 AM ARMATURE VARNISHER Infusion Department of Infusion Therapy in [address] [phone] Mari Noguera M.D. [address] [place] [phone] 03/31/2023 10:10 AM ARMATURE VARNISHER Appointment Department of Laboratory Medicine in [address] [phone] Mari Noguera M.D. [address] [place] [phone] 04/04/2023 8:20 AM ARMATURE VARNISHER Office Visit Department of Oncology in [address] [phone] Mari Noguera M.D. [address] [place] [phone] 04/04/2023 9:00 AM ARMATURE VARNISHER Infusion Department of Infusion Therapy in [address] [phone] Mari Noguera M.D. [address] [place] [phone] 04/13/2023 10:10 AM ARMATURE VARNISHER Appointment Department of Laboratory Medicine in [address] [phone] Mari Noguera M.D. [address] [place] [phone] 04/14/2023 9:00 AM ARMATURE VARNISHER Infusion Department of Infusion Therapy in [address] [phone] Mari Noguera M.D. [address] [place] [phone] Procedures Procedure Name Priority Date/Time Associated Diagnosis Comments IMMUNOGLOBULINS (IGG, IGA, AND IGM), S Routine 03/02/2023 10:56 AM ARMATURE VARNISHER Multiple Myeloma Not Having Achieved Remission (HCC) COMPREHENSIVE METABOLIC PANEL, S/P Routine 03/02/2023 10:56 AM ARMATURE VARNISHER Multiple Myeloma Not Having Achieved Remission (HCC) CBC WITH DIFFERENTIAL, B Routine 03/02/2023 10:56 AM ARMATURE VARNISHER Multiple Myeloma Not Having Achieved Remission (HCC) CBC WITH DIFFERENTIAL, B Routine 02/17/2023 8:29 AM ARMATURE VARNISHER Multiple Myeloma Not Having Achieved Remission (HCC) CBC WITH DIFFERENTIAL, B Routine 02/09/2023 2:36 PM ARMATURE VARNISHER Multiple Myeloma Not Having Achieved Remission (HCC) IMMUNOGLOBULINS (IGG, IGA, AND IGM), S Routine 02/09/2023 2:36 PM ARMATURE VARNISHER Multiple Myeloma Not Having Achieved Remission (HCC) CBC WITH DIFFERENTIAL, B Routine 01/30/2023 1:16 PM ARMATURE VARNISHER Thrombocytopenia (HCC) COMPREHENSIVE METABOLIC PANEL, S/P Routine 01/27/2023 8:00 AM ARMATURE VARNISHER Multiple Myeloma Not Having Achieved Remission (HCC) CBC WITH DIFFERENTIAL, B Routine 01/27/2023 8:00 AM ARMATURE VARNISHER Multiple Myeloma Not Having Achieved Remission (HCC) MONOCLONAL GAMMOPATHY DIAGNOSTIC, S Routine 01/20/2023 10:03 AM ARMATURE VARNISHER Multiple Myeloma Not Having Achieved Remission (HCC) Diarrhea COMPREHENSIVE METABOLIC PANEL, S/P Routine 01/20/2023 10:03 AM ARMATURE VARNISHER Multiple Myeloma Not Having Achieved Remission (HCC) CBC WITH DIFFERENTIAL, B Routine 01/20/2023 10:03 AM ARMATURE VARNISHER Multiple Myeloma Not Having Achieved Remission (HCC) GI PATHOGEN PANEL, PCR, F Routine 01/18/2023 3:00 PM ARMATURE VARNISHER Multiple Myeloma Not Having Achieved Remission (HCC) Diarrhea COMPREHENSIVE METABOLIC PANEL, S/P Routine 01/12/2023 10:10 AM ARMATURE VARNISHER Multiple Myeloma Not Having Achieved Remission (HCC) CBC WITH DIFFERENTIAL, B Routine 01/12/2023 10:10 AM ARMATURE VARNISHER Multiple Myeloma Not Having Achieved Remission (HCC) [...] CBC with Differential, Blood (03/02/2023 10:56 AM ARMATURE VARNISHER) Only the most recent of9 resultswithin the time period is included. Hemoglobin 11.5(L) 11.6 - 15.0 g/dL 03/02/2023 11:08 AM ARMATURE VARNISHER FB60 Hematocrit 35.3(L) 35.5 - 44.9 % 03/02/2023 11:08 AM ARMATURE VARNISHER FB60 Erythrocytes 3.44(L) 3.92 - 5.13 x10(12)/L 03/02/2023 11:08 AM ARMATURE VARNISHER FB60 MCV 102.6(H) 78.2 - 97.9 fL 03/02/2023 11:08 AM ARMATURE VARNISHER FB60 RBC Distrib Width 16.1 12.2 - 16.1 % 03/02/2023 11:08 AM ARMATURE VARNISHER FB60 Platelet Count 45(L) 157 - 371 x10(9)/L 03/02/2023 11:08 AM ARMATURE VARNISHER FB60 Leukocytes 2.3(L) 3.4 - 9.6 x10(9)/L 03/02/2023 11:08 AM ARMATURE VARNISHER FB60 Neutrophils 0.90(L) 1.56 - 6.45 x10(9)/L 03/02/2023 11:08 AM ARMATURE VARNISHER FB60 Lymphocytes 1.20 0.95 - 3.07 x10(9)/L 03/02/2023 11:08 AM ARMATURE VARNISHER FB60 Monocytes 0.12(L) 0.26 - 0.81 x10(9)/L 03/02/2023 11:08 AM ARMATURE VARNISHER FB60 Eosinophils 0.05 0.03 - 0.48 x10(9)/L 03/02/2023 11:08 AM ARMATURE VARNISHER FB60 Basophils <0.04 0.01 - 0.08 x10(9)/L 03/02/2023 11:08 AM ARMATURE VARNISHER FB60 Blood (Blood, Venous) 03/02/2023 10:56 AM ARMATURE VARNISHER 03/02/2023 10:56 AM ARMATURE VARNISHER Mari Noguera M.D. LAB BLOOD ADD-ON [facility] [address] [place] [address], [facility] FB60 [facility] [place] [address] [place] [address] * (ABNORMAL) Immunoglobulins (IgG, IgA, and IgM) (03/02/2023 10:56 AM ARMATURE VARNISHER) Only the most recent of3 resultswithin the time period is included. Immunoglobulin A (IgA), S 37(L) 61 - 356 mg/dL 03/03/2023 10:26 AM ARMATURE VARNISHER [facility]SC Immunoglobulin M (IgM), S 12(L) 37 - 286 mg/dL 03/03/2023 11:49 AM ARMATURE VARNISHER [facility]SC Immunoglobulin G (IgG), S 1060 767 - 1590 mg/dL 03/03/2023 11:24 AM ARMATURE VARNISHER [facility] Blood (Blood, Venous) 03/02/2023 10:56 AM ARMATURE VARNISHER 03/03/2023 6:11 AM ARMATURE VARNISHER Mari Noguera M.D. LAB BLOOD ADD-ON [facility] [address] [place] [address] [facility] [address] [place] [address] * (ABNORMAL) Comprehensive Metabolic Panel (03/02/2023 10:56 AM ARMATURE VARNISHER) Only the most recent of4 resultswithin the time period is included. Potassium, P 3.7 3.6 - 5.2 mmol/L 03/02/2023 1:54 PM ARMATURE VARNISHER OWAT Sodium, P 141 135 - 145 mmol/L 03/02/2023 1:54 PM ARMATURE VARNISHER OWAT Chloride, P 100 98 - 107 mmol/L 03/02/2023 1:54 PM ARMATURE VARNISHER OWAT Bicarbonate, P 27 22 - 29 mmol/L 03/02/2023 1:54 PM ARMATURE VARNISHER OWAT Anion Gap, P 14 7 - 15 03/02/2023 1:54 PM ARMATURE VARNISHER OWAT BUN (Blood Urea Nitrogen), P 36(H) 6 - 21 mg/dL 03/02/2023 1:54 PM ARMATURE VARNISHER OWAT Creatinine 1.53(H) 0.59 - 1.04 mg/dL 03/02/2023 1:54 PM ARMATURE VARNISHER OWAT Estimated GFR (eGFR) 35(L) >=60 mL/min/BS A 03/02/2023 1:54 PM ARMATURE VARNISHER OWAT Comment: Estimated GFR calculated using the 2020 CKD_EPI creatinine equation. Calcium, Total, P 9.8 8.8 - 10.2 mg/dL 03/02/2023 1:54 PM ARMATURE VARNISHER OWAT Glucose, P 163(H) 70 - 140 mg/dL 03/02/2023 1:54 PM ARMATURE VARNISHER OWAT Protein, Total, P 7.1 6.3 - 7.9 g/dL 03/02/2023 1:54 PM ARMATURE VARNISHER OWAT Albumin, P 4.4 3.5 - 5.0 g/dL 03/02/2023 1:54 PM ARMATURE VARNISHER OWAT Aspartate Aminotransferase (AST), P 30 8 - 43 U/L 03/02/2023 1:54 PM ARMATURE VARNISHER OWAT Alkaline Phosphatase, P 65 35 - 104 U/L 03/02/2023 1:54 PM ARMATURE VARNISHER OWAT Alanine Aminotransferase (ALT), P 31 7 - 45 U/L 03/02/2023 1:54 PM ARMATURE VARNISHER OWAT Bilirubin, Total, P 0.3 0.0 - 1.2 mg/dL 03/02/2023 1:54 PM ARMATURE VARNISHER OWAT Blood (Blood, Venous) 03/02/2023 10:56 AM ARMATURE VARNISHER 03/02/2023 1:14 PM ARMATURE VARNISHER Mari Noguera M.D. LAB BLOOD ADD-ON [facility] [address] [place] [address], [facility] OWAT [facility] [place] [address] [place] [address] * (ABNORMAL) Monoclonal Gammopathy Diagnostic (01/20/2023 10:03 AM ARMATURE VARNISHER) Therapeutic Antibody Administered? Unspecified 01/23/2023 7:47 AM ARMATURE VARNISHER [facility] Total Protein, S 6.4 6.3 - 7.9 g/dL 01/23/2023 9:41 AM ARMATURE VARNISHER [facility] [place] Free Light Chain, S 1.45 0.3300 - 1.94 mg/dL 01/23/2023 11:12 AM ARMATURE VARNISHER [facility]SC Lambda Free Light Chain, S 1.41 0.5700 - 2.63 mg/dL 01/23/2023 11:12 AM ARMATURE VARNISHER [facility]SC [place]/Lambda FLC Ratio 1.03 0.2600 - 1.65 01/23/2023 11:12 AM ARMATURE VARNISHER [facility] Albumin 3.3(L) 3.4 - 4.7 g/dL 01/23/2023 1:40 PM ARMATURE VARNISHER [facility] Alpha-1 Globulin 0.3 0.1 - 0.3 g/dL 01/23/2023 1:40 PM ARMATURE VARNISHER [facility]SC Alpha-2 Globulin 1.1(H) 0.6 - 1.0 g/dL 01/23/2023 1:40 PM ARMATURE VARNISHER [facility] Beta-Globulin 1.0 0.7 - 1.2 g/dL 01/23/2023 1:40 PM ARMATURE VARNISHER [facility] Gamma-Globulin 0.8 0.6 - 1.6 g/dL 01/23/2023 1:40 PM ARMATURE VARNISHER [facility] A/G Ratio 1.05 01/23/2023 1:40 PM ARMATURE VARNISHER [facility]SC Impression Small abnormality in gamma fraction. See Isotype. 01/23/2023 1:40 PM ARMATURE VARNISHER SDSC Flag, M-protein Isotype Positive(A) Negative 01/24/2023 3:10 PM ARMATURE VARNISHER [facility]SC M-protein Isotype MALDI-TOF MS IgG lambda, monoclonal. 01/24/2023 3:10 PM ARMATURE VARNISHER [facility] Comment: ----ADDITIONAL INFORMATION---- The submitted sample was assayed by five separate immunopurifications for IgG, IgA, IgM, kappa and lambda. ??The result reflects the findings of either no monoclonal protein detected or those monoclonal immunoglobulins that were detected. This test was developed and its performance characteristics determined by [facility] in a manner consistent with CLIA requirements. This test has not been cleared or approved by the U.S. Food and Drug Administration. Blood (Blood, Venous) 01/20/2023 10:03 AM ARMATURE VARNISHER 01/23/2023 8:47 AM ARMATURE VARNISHER Narrative [facility] - 01/24/2023 3:10 PM ARMATURE VARNISHER Specimen Information: Specimen ID: [id number] Specimen Type: Blood Specimen Collection Start Date: 01/20/2023 10:03 AM Specimen Received Date: 01/23/2023 ??8:47 AM Specimen ID: [id number] Specimen Type: Blood Specimen Collection Start Date: 01/20/2023 10:03 AM Specimen Received Date: 01/23/2023 ??7:47 AM Mari Noguera M.D. LAB BLOOD ADD-ON [facility] [address] [place], [place] [id number] [place] [address] [place] [address] [place] [address] [place] [address] [place] [address] * GI Pathogen Panel, PCR, Feces (01/18/2023 3:00 PM ARMATURE VARNISHER) Specimen Source STOOL 1:03 PM ARMATURE VARNISHER RDWG Campylobacter species Negative Negative 01/20/2023 1:03 PM ARMATURE VARNISHER RDWG C. difficile toxin Negative Negative 2022 1:03 PM ARMATURE VARNISHER [facility] Plesiomonas shigelloides Negative Negative 01/20/2023 1:03 PM ARMATURE VARNISHER [facility] Salmonella species Negative Negative 2022 1:03 PM ARMATURE VARNISHER [facility] Vibrio species Negative Negative 01/20/2023 1:03 PM ARMATURE VARNISHER [facility] Vibrio cholerae Negative Negative 1:03 PM ARMATURE VARNISHER [facility] Yersinia species Negative Negative 01/21/20 1:03 PM ARMATURE VARNISHER [facility] Enteroaggregative E. coli (EAEC) Negative Negative 01/20/2023 1:03 PM ARMATURE VARNISHER [facility] Enteropathogenic E. coli (EPEC) Negative Negative 01/20/2023 1:03 PM ARMATURE VARNISHER R[facility] Enterotoxigenic E. coli (ETEC) Negative Negative 01/20/2023 1:03 PM ARMATURE VARNISHER [facility] Shiga toxin producing E. coli Negative Negative 01/20/2023 1:03 PM ARMATURE VARNISHER [facility] Shigella/Enteroinvas carlos E. coli Negative Negative 01/20/2023 1:03 PM ARMATURE VARNISHER [facility] Cryptosporidium species Negative Negative 01/20/2023 1:03 PM ARMATURE VARNISHER [facility] Cyclospora cayetanensis Negative Negative 01/20/2023 1:03 PM ARMATURE VARNISHER [facility] Entamoeba histolytica Negative Negative 01/20/2023 1:03 PM ARMATURE VARNISHER [facility] Giardia Negative Negative 01/20/2023 1:03 PM ARMATURE VARNISHER [facility] Adenovirus F40/41 Negative Negative 023 1:03 PM ARMATURE VARNISHER [facility] Astrovirus Negative Negative 01/20/2023 1:03 PM ARMATURE VARNISHER [facility] Norovirus GI/GII Negative Negative 01/21/20 1:03 PM ARMATURE VARNISHER RDW[facility] Rotavirus Ag, F Negative Negative 3 1:03 PM ARMATURE VARNISHER [facility] Sapovirus Negative Negative 01/20/2023 1:03 PM ARMATURE VARNISHER R[facility] Comment: ----ADDITIONAL INFORMATION---- This assay is performed using the FDA-cleared FilmArray GI Panel ([employer] Stool (Stool) 01/18/2023 3:0 0 PM ARMATURE VARNISHER 01/20/2023 9:53 AM ARMATURE VARNISHER Mari Noguera M.D. LAB MICROBIOLOGY - G ENERAL ORDERABLES [facility] [address] [address], [facility] RDWG [address] [place] [address] from Last 3 Months Additional Health Concerns Infection Onset Date Last Indicated Protective Environment 06/03/2022 3 Advance Directives For more information, please contact: [phone] Latest Code Status on File Code Status Date Activated Date Inactivated Comments Full Code 12/07/2021 2:52 PM 12/15/2021 4:48 PM Question Answer Comments Full Code: Discussed Care Teams Call Box Wirer Relationship Specialty Start Date End Date Elsewhere, Pcp PCP - General Internal Medicine 04/01/22
--- OUTSIDE RECORDS SUMMARY | 2023-03-08 08:46 | XMS_ITS | Encounter Summary ---
Author Name Unknown Organization [facility] Address [address] [place] [address] Care Team Providers Care Editorial Specialist Name Role Phone Elsewhere, Pcp Primary Care Provider Unavailabl e Reason for Referral * Outpatient (Routine) Specialty Diagnoses / Procedures Referred By Guillermina zamora Referred To Contact Hematology Oncology Mari Noguera M.D. [address] [place] [phone] [facility] Region Referral ID Status Reason Start Date Expiration Date Visits Re quested Visits Authorized KIN TRIMMER Encounter Details Date Type Department Care Team (Late st Contact Info) Description 02/17/2023 Orders Only Department of Oncology in [address] [phone] Mari Noguera M.D. [address] [place] [phone] Multiple Myeloma Not Having Achieved Remission (HCC) (Primary Dx) Social History Tobacco Use Types Packs/Day Years [...] week 06/11/2021 How often do you attend [facility] or anabaptist services? 1 to 4 times per year 06/11/2021 Do you belong to any clubs o r organizations such as shinto groups, unions, fraternal or athletic groups, or [...] place to sleep or slept in a halfway (including now)? No 06/11/2021 Nutrition Answer Date [...] st Contact Info) Description 03/16/2023 10:30 AM PIGSKIN TRIMMER Appointment Department of Laboratory Medicine in [address] [place] [address] Mari Noguera M.D. [address] [place] [phone] 03/17/2023 8:40 AM PIGSKIN TRIMMER Office Visit Department of Oncology in [address] [phone] Mari Noguera M.D. [address] [place] [phone] 03/17/2023 9:45 AM PIGSKIN TRIMMER Infusion Department of Infusion Therapy in [address] [phone] Mari Noguera M.D. [address] [place] [phone] 03/31/2023 10:10 AM PIGSKIN TRIMMER Appointment Department of Laboratory Medicine in [address] [place] [address] Mari Noguera M.D. [address] [place] [phone] 04/04/2023 8:20 AM PIGSKIN TRIMMER Office Visit Department of Oncology in [address] [phone] Mari Noguera M.D. [address] [place] [phone] 04/04/2023 9:00 AM PIGSKIN TRIMMER Infusion Department of Infusion Therapy in [address] [phone] Mari Noguera M.D. [address] [place] [phone] 04/13/2023 10:10 AM PIGSKIN TRIMMER Appointment Department of Laboratory Medicine in [address] [place] [phone] Mari Noguera M.D. [address] [place] [phone] 04/14/2023 9:00 AM PIGSKIN TRIMMER Infusion Department of Infusion Therapy in [address] [phone] Mari Noguera M.D. [address] [place] [phone] Scheduled Orders Name Type Priority Associated Diagnoses Orde r Schedule CBC with Differential, Blood Lab Routine Multiple Myeloma Not Having Achieved Remission (HCC) Expected: 03/31/2023, Expires: 03/31/2026 Comprehensive Metabolic Panel Lab Routine Multiple Myeloma Not Having Achieved Remission (HCC) Expected: 03/31/2023, Expires: 03/31/2024 Immunoglobulins (IgG, IgA, and IgM) Lab Routine Multiple Myeloma Not Having Achieved Remission (HCC) Expected: 04/14/2023, Expires: 04/14/2024 CBC with Differential, Blood Lab Routine Multiple Myeloma Not Having Achieved Remission (HCC) Expected: 04/14/2023, Expires: 07/13/2024 Monoclonal Protein Study, Expanded Panel Lab Routine Multiple Myeloma Not Having Achieved Remission (HCC) Expected: 04/14/2023, Expires: 07/13/2024 Immunoglobulins (IgG, IgA, and IgM) Lab Routine Multiple Myeloma Not Having Achieved Remission (HCC) Expected: 03/17/2023, Expires: 03/17/2024 CBC with Differential, Blood Lab Routine Multiple Myeloma Not Having Achieved Remission (HCC) Expected: 03/17/2023, Expires: 06/15/2024 Monoclonal Protein Study, Expanded Panel Lab Routine Multiple Myeloma Not Having Achieved Remission (HCC) Expected: 03/17/2023, Expires: 06/15/2024 Scheduled Referrals Name Type Priority Associated Diagnoses Order Schedule Hematology office visit (clinic) [facility] Region; Pre-Chemo Outpatient Referral Routine Multiple Myeloma Not Having Achieved Remission (HCC) Expected: 03/31/2023, Expires: 03/31/2024 documented as of this encounter Visit Diagnoses Diagnosis Multiple Myeloma Not Having Achieved Remission (HCC)- Primary documented in this encounter Additional Health Concerns Infection Onset Date Last Indicated Resolved Time Protective Environment 06/03/2022 06/03/2022 documented as of this encounter Care Teams Editorial Specialist Relationship Specialty Start Date End Date Elsewhere, Pcp PCP - General Internal Medicine 04/01/22 documented as of this encounter
--- OUTSIDE RECORDS SUMMARY | 2023-03-08 08:46 | XMS_ITS ---
Author Name Unknown Organization [facility] Address [address] [place] [address] Care Team Providers Care Foundry Engineer Name Role Phone Unavailable Unavailable Unavailable Surgery Details Not on file Complications Check Surgery Details section. Procedure Estimated Blood Loss Check Surgery Details section. Procedure Findings Check Surgery Details section. Procedure Specimens Taken Check Surgery Details section.
--- OUTSIDE RECORDS SUMMARY | 2023-03-08 08:46 | XMS_ITS | Encounter Summary ---
Author Name Unknown Organization [facility] Address [address] [place] [address] Care Team Providers Care Ore Storage Drier Name Role Phone Elsewhere, Pcp Primary Care Provider Unavailabl e Reason for Visit * Reason Comments Med Refill Encounter Details Date Type Department Care Team (Late st Contact Info) Description 02/23/2023 Refill Department of Oncology in [place], [place] [address] [place] [phone] Mari Noguera M.D. [address] [place] [phone] Med Refill Social History Tobacco [...] week 06/11/2021 How often do you attend [facility] or congregation services? 1 to 4 times per year 06/11/2021 Do you belong to any clubs o r organizations such as methodist groups, unions, fraternal or athletic groups, or [...] Answer Date Recorded PHQ-2 Score 4 11/18/2021 [facility] of Occupat ionid Health - Occupational Stress Questionnaire Answer Date [...] place to sleep or slept in a jail (including now)? No 06/11/2021 Nutrition Answer Date [...] st Contact Info) Description 03/16/2023 10:30 AM FELLED SEAM OPERATOR Appointment Department of Laboratory Medicine in [place] [address] [place] [phone] Mari Noguera M.D. [address] [place] [phone] 03/17/2023 8:40 AM FELLED SEAM OPERATOR Office Visit Department of Oncology in [address] [place] [phone] Mari Noguera M.D. [address] [place] [phone] 03/17/2023 9:45 AM FELLED SEAM OPERATOR Infusion Department of Infusion Therapy in [address] [place] [address] Mrai Noguera M.D. [address] [place] [phone] 03/31/2023 10:10 AM FELLED SEAM OPERATOR Appointment Department of Laboratory Medicine in [address] [phone] Mari Noguera M.D. [address] [place] [phone] 04/04/2023 8:20 AM FELLED SEAM OPERATOR Office Visit Department of Oncology in [address] [place] [phone] Mari Noguera M.D. [address] [place] [phone] 04/04/2023 9:00 AM FELLED SEAM OPERATOR Infusion Department of Infusion Therapy in [address] [phone] Mari Noguera M.D. [address] [place] [phone] 04/13/2023 10:10 AM FELLED SEAM OPERATOR Appointment Department of Laboratory Medicine in [address] [phone] Mari Noguera M.D. [address] [place] [phone] 04/14/2023 9:00 AM FELLED SEAM OPERATOR Infusion Department of Infusion Therapy in [place], [place] [address] [place] [phone] Mari Noguera M.D. [address] [place] [phone] documented as of this encounter Visit Diagnoses Diagnosis Multiple Myeloma Not Having Achieved Remission (HCC) documented in this encounter Additional Health Concerns Infection Onset Date Last Indicated Resolved Time Protective Environment 06/03/2022 06/03/2022 documented as of this encounter Care Teams Ore Storage Drier Relationship Specialty Start Date End Date Elsewhere, Pcp PCP - General Internal Medicine 04/01/22 documented as of this encounter
--- OUTSIDE RECORDS SUMMARY | 2023-03-08 08:46 | XMS_ITS | Encounter Summary ---
Author Name Unknown Organization [facility] Address [address] [place] [address] Care Team Providers Care Grinder And Plater Name Role Phone Elsewhere, Pcp Primary Care Provider Unavailabl e Reason for Visit * Reason Comments Med Refill Encounter Details Date Type Department Care Team (Late st Contact Info) Description 03/07/2023 Refill Department of Oncology in [place], [place] [address] [place] [phone] Mari Noguera M.D. [address] [place] [phone] Med Refill Social History Tobacco [...] often do you attend [facility] or moravian services? 1 to 4 times per year 06/11/2021 Do you belong to any clubs o r organizations such as mosque groups, unions, fraternal or athletic groups, or [...] Answer Date Recorded PHQ-2 Score 4 11/18/2021 [facility] of Occupat ionnc Health - Occupational Stress Questionnaire Answer Date [...] place to sleep or slept in a retirement (including now)? No 06/11/2021 Nutrition Answer Date [...] PM CDT documented as of this encounter Miscellaneous Notes * Telephone Encounter - Tanesha Bonilla - 03/07/2023 2:47 PM CST Images from the original note were not included. Nurse review: Pharmacy is asking for Clarification. Provider: Sita Noguera H EDGE SINGER documented in this encounter Plan of Treatment Upcoming Encounters Date Type Department Care Team (Late st Contact Info) Description 03/16/2023 10:30 AM CLOTH EDGE SINGER Appointment Department of Laboratory Medicine in [address] [place] [address] Mari Noguera M.D. [address] [place] [phone] 03/17/2023 8:40 AM CLOTH EDGE SINGER Office Visit Department of Oncology in [address] [phone] Mari Noguera M.D. [address] [place] [phone] 03/17/2023 9:45 AM CLOTH EDGE SINGER Infusion Department of Infusion Therapy in [address] [phone] Mari Noguera M.D. [address] [place] [phone] 03/31/2023 10:10 AM CLOTH EDGE SINGER Appointment Department of Laboratory Medicine in [address] [place] [address] Mari Noguera M.D. [address] [place] [phone] 04/04/2023 8:20 AM CLOTH EDGE SINGER Office Visit Department of Oncology in [address] [phone] Mari Noguera M.D. [address] [place] [phone] 04/04/2023 9:00 AM CLOTH EDGE SINGER Infusion Department of Infusion Therapy in [address] [phone] Mari Noguera M.D. [address] [place] [phone] 04/13/2023 10:10 AM CLOTH EDGE SINGER Appointment Department of Laboratory Medicine in [place] [address] [facility] [place] [address] Mari Noguera M.D. [address] [place] [phone] 04/14/2023 9:00 AM CLOTH EDGE SINGER Infusion Department of Infusion Therapy in [place], [place] [address] [place] [phone] Mari Noguera M.D. [address] [place] [phone] documented as of this encounter Visit Diagnoses Not on filedocumented in this encounter Additional Health Concerns Infection Onset Date Last Indicated Resolved Time Protective Environment 06/03/2022 06/03/2022 documented as of this encounter Care Teams Grinder And Plater Relationship Specialty Start Date End Date Elsewhere, Pcp PCP - General Internal Medicine 04/01/22 documented as of this encounter
--- OUTSIDE RECORDS SUMMARY | 2023-03-08 08:46 | XMS_ITS ---
Author Name Unknown Organization [facility] Address [address] [place] [address] Care Team Providers Care Butcher Apprentice Name Role Phone Elsewhere, Pcp Primary Care Provider Unavailabl e Active Problems Problem Noted Date Diagnosed Date COVID-19 Infection 03/22/2022 Overview: This patients COVID history is as follows: Initial date of symptoms: 03/18/22 Symptoms at onset: not severe Date of positive test: 03-19-22 Initial treatment paxlovid Qualifying condition/medication for CCP: Multiple myeloma Blood type / location: ordered for 03/23/22 Thor Infusion dates: Ordered for Thor 03/23/22 Follow up 03-25-22. Feeling much better. Only has residual slight cough and nasal congestion Hypokalemia 12/17/2021 Hypomagnesemia 12/16/2021 Diabetes Mellitus Type 2 12/07/2021 Weakness General 12/07/2021 Transplant Stem Cell 09/24/2021 History Of Falling 09/23/2021 Multiple Myeloma Not Having Achieved Remission 0 05/28/2021 Current Oncology Plans Lenalidomide / Bortezomib Post transplant maintenance* Plan Start Date:03/23/2022 Plan Provider:Mari Noguera M.D. Linked Problems Multiple Myeloma Not Having Achieved Remission (HCC) Treatment Medications Current Day (Day 1 , Cycle 11 - Planned for 03/03/2023) Next Day (Day 15, Cycle 11 - Planned for 03/17/2023) bortezomib (VELCADE)lenalidomide (REVLIMID) bortezomib injection 1.5 mg (VELCADE)lenalidomide (REVLIMID) 10 mg capsule bortezomib injection 1.5 mg (VELCADE) Past Plans Apheresis Plan Name Start Date Discontinue Date Treatment Medications Discontinue Reason Plan Provider AUTOLOGOUS CELL COLLECTION 11/23/2021 11/24/2021 No medications scheduled. Therapy Complete Dorene Varela M.D. AUTOLOGOUS CELL COLLECTION 10/25/2021 10/26/2021 No medications scheduled. Therapy Complete Dorene Varela M.D. Conditional Blood Orders RBC Plan Name Start Date Discontinue Date Treatment Medications Discontinue Reason Plan Provider CONDITIONAL BLOOD ADMINISTRATION - RED BLOOD CELLS (RBC) FOR PATIENTS WEIGHING GREATER THAN 35 KG (UNITS) HEM ONC / BMT 11/30/2021 05/22/2022 No medications scheduled. Therapy Complete Brooklynn Salinas APRN, C.N.P., D.N.P. Hem/Onc Therapy Plan 1 Plan Name Start Date Discontinue Date Treatment Medications Discontinue Reason Plan Provider PERIPHERAL BLOOD STEM CELL MOBILIZATION 11/12/2021 11/24/2021 No medications scheduled. Therapy Complete Lola Becker APRN, C.N.P., D.N.P. PERIPHERAL BLOOD STEM CELL MOBILIZATION 10/21/2021 10/26/2021 No medications scheduled. Therapy Complete Dorene Varela M.D. Hematology / Oncology Treatment 1 Plan Name Start Date Discontinue Date Treatment Medications Discontinue Reason Plan Provider Cycles Daratumumab (Subcutaneous) RVD (Lenalidomide / Bortezomib / Dexamethasone) (28 day cycles) 2 10/29/2021 bortezomib (VELCADE)darat umumab-hyaluro nidase-[facility] (DARZALEX FASPRO) Therapy Complete Mari Noguera M.D. Treatment not started Hematology / Oncology Treatment 2 Plan Name Start Date Discontinue Date Treatment Medications Discontinue Reason Plan Provider Cycles Cyclophosphamide Priming 2 Day 2 12/13/2021 cycloPHOSphamide (CYTOXAN) IVPB in 350 mL (1 g vial) (CYTOXAN) Therapy Complete Dorene Varela M.D. 1 of 1 cycle started Infusion Therapy 1 Plan Name Start Date Discontinue Date Treatment Medications Discontinue Reason Plan Provider Autologous Blood and Marrow Transplant 11/21/2021 11/18/2022 No medications scheduled. Therapy Complete Brooklynn Salinas APRN, C.N.P., D.N.P. PLERIXAFOR (MOZOBIL) 09/24/2021 10/26/2021 No medications scheduled. Therapy Complete Dorene Varela M.D. Radiation Treatments * No radiation treatments are documented for this patient in [facility]. Treatments may have been administered in another system. Lifetime Dose Tracking * Chemical Lifetime Dose Automatic Entry Manual Entr y Radiation 0.207 mGy 0.207 mGy 0 mGy Fluoro Time 0.2 minutes 0.2 minutes 0 minutes DAP (Gy-cm2) 0.207 Gy-cm2 0.207 Gy-cm2 0 Gy-cm2 Resolved Problems Problem Noted Date Diagnosed Date Resolved Date Multiple Myeloma In Remission 10/22/2021 07/08/2022
--- OUTSIDE RECORDS SUMMARY | 2023-03-08 08:47 | XMS_ITS | Encounter Summary ---
Author Name Unknown Organization [facility] Address [address] [place] [address] Care Team Providers Care Media Marketing Director Name Role Phone Elsewhere, Pcp Primary Care Provider Unavailabl e Encounter Details Date Type Department Care Team (Late st Contact Info) Description 01/30/2023 Orders Only Department of Oncology in [place], [place] [address] [place] [phone] Anna Rosa RAbrahamNAbraham [address] [place] [address] Thrombocytopenia (HCC) (Primary Dx) Social History Tobacco Use [...] often do you attend chur ch or nondenominational services? 1 to 4 times per year 06/11/2021 Do you belong to any clubs o r organizations such as druze groups, unions, fraternal or athletic groups, or [...] Answer Date Recorded PHQ-2 Score 4 11/18/2021 [facility] - [facility]ational Stress Questionnaire Answer Date [...] place to sleep or slept in a longterm (including now)? No 06/11/2021 Nutrition Answer Date [...] st Contact Info) Description 03/16/2023 10:30 AM CADD MANAGER Appointment Department of Laboratory Medicine in [place] [address] [address] [facility] [phone] Mari Noguera M.D. [address] [place] [phone] 03/17/2023 8:40 AM CADD MANAGER Office Visit Department of Oncology in [address] [place] [phone] Mari Noguera M.D. [facility] [place] [phone] 03/17/2023 9:45 AM CADD MANAGER Infusion Department of Infusion Therapy in [address] [place] [address] Mari Noguera M.D. [facility] [place] [phone] 03/31/2023 10:10 AM CADD MANAGER Appointment Department of Laboratory Medicine in [address] [place] [address] Mari Noguera M.D. [address] [place] [phone] 04/04/2023 8:20 AM CADD MANAGER Office Visit Department of Oncology in [address] [place] [phone] Mari Noguera M.D. [address] [place] [phone] 04/04/2023 9:00 AM CADD MANAGER Infusion Department of Infusion Therapy in [address] [place] [address] Mari Noguera M.D. [address] [place] [phone] 04/13/2023 10:10 AM CADD MANAGER Appointment Department of Laboratory Medicine in [address] [place] [address] Mari Noguera M.D. [address] [place] [phone] 04/14/2023 9:00 AM CADD MANAGER Infusion Department of Infusion Therapy in [place], [place] [address] [place] [phone] Mari Noguera [place]. [place] [phone] documented as of this encounter Results * (ABNORMAL) CBC with Differential, Blood (01/30/2023 1:16 PM CADD MANAGER) Hemoglobin 12.4 11.6 - 15.0 g/dL 01/30/2023 1:21 PM CADD MANAGER RDWG Hematocrit 38.3 35.5 - 44.9 % 01/30/2023 1:21 PM CADD MANAGER RDWG Erythrocytes 3.87(L) 3.92 - 5.13 x10(12)/L 01/30/2023 1:21 PM CADD MANAGER RDWG MCV 99.0(H) 78.2 - 97.9 fL 01/30/2023 1:21 PM CADD MANAGER RDWG RBC Distrib Width 15.5 12.2 - 16.1 % 01/30/2023 1:21 PM CADD MANAGER RDWG Platelet Count 73(L) 157 - 371 x10(9)/L 01/30/2023 1:21 PM CADD MANAGER RDWG Leukocytes 4.0 3.4 - 9.6 x10(9)/L 01/30/2023 1:21 PM CADD MANAGER RDWG Neutrophils 2.57 1.56 - 6.45 x10(9)/L 01/30/2023 1:21 PM CADD MANAGER RDWG Lymphocytes 1.09 0.95 - 3.07 x10(9)/L 01/30/2023 1:21 PM CADD MANAGER RDWG Monocytes 0.28 0.26 - 0.81 x10(9)/L 01/30/2023 1:21 PM CADD MANAGER RDWG Eosinophils 0.04 0.03 - 0.48 x10(9)/L 01/30/2023 1:21 PM CADD MANAGER RDWG Basophils <0.03 0.01 - 0.08 x10(9)/L 01/30/2023 1:21 PM CADD MANAGER RDWG Blood (Blood, Venous) 01/30/2023 1:16 PM CADD MANAGER 01/30/2023 1:17 PM CADD MANAGER Mari Noguera M.D. LAB BLOOD ADD-ON [facility] [address] [place] [address], [facility] RDWG [facility] in [place] [address] [place] [phone] documented in this encounter Visit Diagnoses Diagnosis Thrombocytopenia (HCC)- Primary documented in this encounter Additional Health Concerns Infection Onset Date Last Indicated Resolved Time Protective Environment 06/03/2022 06/03/2022 documented as of this encounter Care Teams Media Marketing Director Relationship Specialty Start Date End Date Elsewhere, Pcp PCP - General Internal Medicine 04/01/22 documented as of this encounter
--- OUTSIDE RECORDS SUMMARY | 2023-03-08 08:47 | XMS_ITS | Encounter Summary ---
Author Name Unknown Organization [facility] Address [address] [place] [address] Care Team Providers Care Safety Professional Name Role Phone Elsewhere, Pcp Primary Care Provider Unavailabl e Reason for Visit * Episode Based Medications (Routine) - Authorized Specialty Diagnoses / Procedures Referred By Guillermina zamora Referred To Contact Diagnoses Multiple Myeloma Not Having Achieved Remission (HCC) Procedures OR ONDANSETRON HCL INJECTION OR DARATUMUMAB, HYALURONIDASE OR BORTEZOMIB INJECTION 1,800 mg on Day 1, 8, 15, 22 for cycles 1 & 2, Day 1, 15 3-6, Day 1 for cycle 7 / 28 day cycles / 17 total visits Mari Noguera M.D. [address] [place] [address] [facility] Region Referral ID Status Reason Start Date Expiration Date V isits Requested Visits Authorized [id number] Authorized 05/28/2021 02/27/2024 31 31 Encounter Details Date Type Department Care Team (Latest Contact Info) Description 02/17/2023 8:23 AM CONSUMER SALES REPRESENTATIVE - 02/17/2023 11:59 PM CONSUMER SALES REPRESENTATIVE Hospital Encounter Department of Laboratory Medicine in [place], [place] [address] [place] [phone] Mari Noguera M.D. [address] [place] [phone] Multiple Myeloma Not Having Achieved [...] How often do you attend chur or baptism services? 1 to 4 times per year 06/11/2021 Do you belong to any clubs o r organizations such as jew groups, unions, fraternal or athletic groups, or [...] Answer Date Recorded PHQ-2 Score 4 11/18/2021 [facility] - Occupational [...] place to sleep or slept in a assisted (including now)? No 06/11/2021 Nutrition Answer Date [...] st Contact Info) Description 03/16/2023 10:30 AM CONSUMER SALES REPRESENTATIVE Appointment Department of Laboratory Medicine in [address] [phone] Mari Noguera M.D. [address] [place] [phone] 03/17/2023 8:40 AM CONSUMER SALES REPRESENTATIVE Office Visit Department of Oncology in [address] [phone] Mari Noguera M.D. [address] [place] [phone] 03/17/2023 9:45 AM CONSUMER SALES REPRESENTATIVE Infusion Department of Infusion Therapy in [address] [phone] Mari Noguera M.D. [address] [place] [phone] 03/31/2023 10:10 AM CONSUMER SALES REPRESENTATIVE Appointment Department of Laboratory Medicine in [address] [place] [address] Mari Noguera M.D. [address] [place] [phone] 04/04/2023 8:20 AM CONSUMER SALES REPRESENTATIVE Office Visit Department of Oncology in [address] [phone] Mari Noguera M.D. [address] [place] [phone] 04/04/2023 9:00 AM CONSUMER SALES REPRESENTATIVE Infusion Department of Infusion Therapy in [address] [phone] Mari Noguera M.D. [address] [place] [phone] 04/13/2023 10:10 AM CONSUMER SALES REPRESENTATIVE Appointment Department of Laboratory Medicine in [address] [place] [address] Mari Noguera M.D. [address] [place] [phone] 04/14/2023 9:00 AM CONSUMER SALES REPRESENTATIVE Infusion Department of Infusion Therapy in [address] [phone] Mari Noguera M.D. [address] [place] [phone] documented as of this encounter Procedures Procedure Name Priority Date/Time Associated Diagnosis Comments CBC WITH DIFFERENTIAL, B Routine 02/17/2023 8:29 AM CONSUMER SALES REPRESENTATIVE Multiple Myeloma Not Having Achieved Remission (HCC) documented in this encounter Results * (ABNORMAL) CBC with Differential, Blood (02/17/2023 8:29 AM CONSUMER SALES REPRESENTATIVE) Hemoglobin 11.3(L) 11.6 - 15.0 g/dL 02/17/2023 8:33 AM CONSUMER SALES REPRESENTATIVE [facility] Hematocrit 34.6(L) 35.5 - 44.9 % 02/17/2023 8:33 AM CONSUMER SALES REPRESENTATIVE [facility] Erythrocytes 3.39(L) 3.92 - 5.13 x10(12)/L 02/17/2023 8:33 AM CONSUMER SALES REPRESENTATIVE [facility] MCV 102.1(H) 78.2 - 97.9 fL 02/17/2023 8:33 AM CONSUMER SALES REPRESENTATIVE [facility] RBC Distrib Width 16.1 12.2 - 16.1 % 02/17/2023 8:33 AM CONSUMER SALES REPRESENTATIVE [facility] Platelet Count 55(L) 157 - 371 x10(9)/L 02/17/2023 8:33 AM CONSUMER SALES REPRESENTATIVE [facility] Leukocytes 2.9(L) 3.4 - 9.6 x10(9)/L 02/17/2023 8:33 AM CONSUMER SALES REPRESENTATIVE [facility] Neutrophils 1.37(L) 1.56 - 6.45 x10(9)/L 02/17/2023 8:33 AM CONSUMER SALES REPRESENTATIVE [facility] Lymphocytes 1.03 0.95 - 3.07 x10(9)/L 02/17/2023 8:33 AM CONSUMER SALES REPRESENTATIVE [facility] Monocytes 0.42 0.26 - 0.81 x10(9)/L 02/17/2023 8:33 AM CONSUMER SALES REPRESENTATIVE [facility] Eosinophils 0.11 0.03 - 0.48 x10(9)/L 02/17/2023 8:33 AM CONSUMER SALES REPRESENTATIVE [facility] Basophils <0.03 0.01 - 0.08 x10(9)/L 02/17/2023 8:33 AM CONSUMER SALES REPRESENTATIVE [facility] Blood (Blood, Venous) 02/17/2023 8:29 AM CONSUMER SALES REPRESENTATIVE 02/17/2023 8:31 AM CONSUMER SALES REPRESENTATIVE Mari Noguera M.D. LAB BLOOD ADD-ON [facility] [address] [address], [facility] in [place] [address] [phone] documented in this encounter Visit Diagnoses Diagnosis Multiple Myeloma Not Having Achieved Remission (HCC) documented in this encounter Additional Health Concerns Infection Onset Date Last Indicated Resolved Time Protective Environment 06/03/2022 06/03/2022 documented as of this encounter Care Teams Safety Professional Relationship Specialty Start Date End Date Elsewhere, Pcp PCP - General Internal Medicine 04/01/22 documented as of this encounter
--- OUTSIDE RECORDS SUMMARY | 2023-03-08 08:47 | XMS_ITS | Encounter Summary ---
Author Name Unknown Organization [facility] Address [address] [place] [address] Care Team Providers Care Teachers' Aide Name Role Phone Elsewhere, Pcp Primary Care Provider Unavailabl e Reason for Visit * Episode Based Medications (Routine) - Authorized Specialty Diagnoses / Procedures Referred By Guillermina t Referred To Contact Diagnoses Multiple Myeloma Not Having Achieved Remission (HCC) Procedures MA ONDANSETRON HCL INJECTION MA DARATUMUMAB, HYALURONIDASE MA BORTEZOMIB INJECTION 1,800 mg on Day 1, 8, 15, 22 for cycles 1 & 2, Day 1, 15 3-6, Day 1 for cycle 7 / 28 day cycles / 17 total visits Mari Noguera M.D. [address] [place] [address] [facility] Region Referral ID Status Reason Start Date Expiration Date V isits Requested Visits Authorized [id number] Authorized 05/28/2021 02/27/2024 31 31 Encounter Details Date Type Department Care Team (Latest Contact Info) Description 02/09/2023 2:29 PM TEN PIN BOWLING CENTRE MANAGER - 02/09/2023 11:59 PM TEN PIN BOWLING CENTRE MANAGER Hospital Encounter Department of Laboratory Medicine in [place], [place] [address] [facility] [place] [address] Mari Noguera M.D. [address] [place] [phone] Multiple Myeloma Not Having Achieved [...] How often do you attend chur or anglican services? 1 to 4 times per year 06/11/2021 Do you belong to any clubs o r organizations such as restorationism groups, unions, fraternal or athletic groups, or [...] Answer Date Recorded PHQ-2 Score 4 11/18/2021 [facility] - Occupational Stress [...] place to sleep or slept in a half-way (including now)? No 06/11/2021 Nutrition Answer Date [...] st Contact Info) Description 03/16/2023 10:30 AM TEN PIN BOWLING CENTRE MANAGER Appointment Department of Laboratory Medicine in [address] [phone] Mari Noguera M.D. [address] [place] [phone] 03/17/2023 8:40 AM TEN PIN BOWLING CENTRE MANAGER Office Visit Department of Oncology in [address] [phone] Mari Noguera M.D. [address] [place] [phone] 03/17/2023 9:45 AM TEN PIN BOWLING CENTRE MANAGER Infusion Department of Infusion Therapy in [address] [phone] Mari Noguera M.D. [address] [place] [phone] 03/31/2023 10:10 AM TEN PIN BOWLING CENTRE MANAGER Appointment Department of Laboratory Medicine in [address] [place] [address] Mari Noguera M.D. [address] [place] [phone] 04/04/2023 8:20 AM TEN PIN BOWLING CENTRE MANAGER Office Visit Department of Oncology in [address] [phone] Mari Noguera M.D. [address] [place] [phone] 04/04/2023 9:00 AM TEN PIN BOWLING CENTRE MANAGER Infusion Department of Infusion Therapy in [address] [phone] Mari Noguera M.D. [address] [place] [phone] 04/13/2023 10:10 AM TEN PIN BOWLING CENTRE MANAGER Appointment Department of Laboratory Medicine in [address] [place] [address] Mari Noguera M.D. [address] [place] [phone] 04/14/2023 9:00 AM TEN PIN BOWLING CENTRE MANAGER Infusion Department of Infusion Therapy in [address] [phone] Mari Noguera M.D. [address] [place] [phone] documented as of this encounter Procedures Procedure Name Priority Date/Time Associated Diagnosis Comments CBC WITH DIFFERENTIAL, B Routine 02/09/2023 2:36 PM TEN PIN BOWLING CENTRE MANAGER Multiple Myeloma Not Having Achieved Remission (HCC) IMMUNOGLOBULINS (IGG, IGA, AND IGM), S Routine 02/09/2023 2:36 PM TEN PIN BOWLING CENTRE MANAGER Multiple Myeloma Not Having Achieved Remission (HCC) documented in this encounter Results * (ABNORMAL) CBC with Differential, Blood (02/09/2023 2:36 PM TEN PIN BOWLING CENTRE MANAGER) Hemoglobin 11.4(L) 11.6 - 15.0 g/dL 02/09/2023 3:36 PM TEN PIN BOWLING CENTRE MANAGER OWAT Hematocrit 34.9(L) 35.5 - 44.9 % 02/09/2023 3:36 PM TEN PIN BOWLING CENTRE MANAGER OWAT Erythrocytes 3.43(L) 3.92 - 5.13 x10(12)/L 02/09/2023 3:36 PM TEN PIN BOWLING CENTRE MANAGER [employer] MCV 101.7(H) 78.2 - 97.9 fL 02/09/2023 3:36 PM TEN PIN BOWLING CENTRE MANAGER OWAT RBC Distrib Width 16.0 12.2 - 16.1 % 02/09/2023 3:36 PM TEN PIN BOWLING CENTRE MANAGER OWAT Platelet Count 53(L) 157 - 371 x10(9)/L 02/09/2023 3:36 PM TEN PIN BOWLING CENTRE MANAGER OWAT Leukocytes 5.0 3.4 - 9.6 x10(9)/L 02/09/2023 3:36 PM TEN PIN BOWLING CENTRE MANAGER OWAT Neutrophils 3.51 1.56 - 6.45 x10(9)/L 02/09/2023 3:36 PM TEN PIN BOWLING CENTRE MANAGER OWAT Lymphocytes 1.03 0.95 - 3.07 x10(9)/L 02/09/2023 3:36 PM TEN PIN BOWLING CENTRE MANAGER OWAT Monocytes 0.37 0.26 - 0.81 x10(9)/L 02/09/2023 3:36 PM TEN PIN BOWLING CENTRE MANAGER OWAT Eosinophils 0.11 0.03 - 0.48 x10(9)/L 02/09/2023 3:36 PM TEN PIN BOWLING CENTRE MANAGER OWAT Basophils <0.03 0.01 - 0.08 x10(9)/L 02/09/2023 3:36 PM TEN PIN BOWLING CENTRE MANAGER OWAT Blood (Blood, Venous) 02/09/2023 2:36 PM TEN PIN BOWLING CENTRE MANAGER 02/09/2023 2:36 PM TEN PIN BOWLING CENTRE MANAGER Mari Noguera M.D. LAB BLOOD ADD-ON [facility] [address] [place] [address], [place] OWAT [facility] in [place] [address] [place] [address] * (ABNORMAL) Immunoglobulins (IgG, IgA, and IgM) (02/09/2023 2:36 PM TEN PIN BOWLING CENTRE MANAGER) Immunoglobulin A (IgA), S 41(L) 61 - 356 mg/dL 02/10/2023 9:03 AM TEN PIN BOWLING CENTRE MANAGER [facility] Immunoglobulin M (IgM), S 19(L) 37 - 286 mg/dL 02/10/2023 9:03 AM TEN PIN BOWLING CENTRE MANAGER [facility] Immunoglobulin G (IgG), S 883 767 - 1590 mg/dL 02/10/2023 9:03 AM TEN PIN BOWLING CENTRE MANAGER [facility] Blood (Blood, Venous) 02/09/2023 2:36 PM TEN PIN BOWLING CENTRE MANAGER 02/10/2023 6:11 AM TEN PIN BOWLING CENTRE MANAGER Mari Noguera M.D. LAB BLOOD ADD-ON [facility] [address] [place] [address] [facility] [address] [place] [address] documented in this encounter Visit Diagnoses Diagnosis Multiple Myeloma Not Having Achieved Remission (HCC) documented in this encounter Additional Health Concerns Infection Onset Date Last Indicated Resolved Time Protective Environment 06/03/2022 06/03/2022 documented as of this encounter Care Teams Teachers' Aide Relationship Specialty Start Date End Date Elsewhere, Pcp PCP - General Internal Medicine 04/01/22 documented as of this encounter
--- OUTSIDE RECORDS SUMMARY | 2023-03-08 08:47 | XMS_ITS | Encounter Summary ---
Author Name Unknown Organization [facility] Address [address] [place] [address] Care Team Providers Care Bacteriology Research Assistant Name Role Phone Elsewhere, Pcp Primary Care Provider Unavailabl e Reason for Visit * Reason Comments Med Refill Encounter Details Date Type Department Care Team (Late st Contact Info) Description 02/05/2023 Refill Garrick gilmore [facility] in [place], [place] [address] [place] [address] Jeannie Headley APRN, C.N.P., D.N.P., M.S.N. [address] [place] [address] Med Refill Social History Tobacco Use Types [...] How often do you attend chur or lutheran services? 1 to 4 times per year [...] Answer Date Recorded PHQ-2 Score 4 11/18/2021 [facility] - Occupational [...] st Contact Info) Description 03/16/2023 10:30 AM GAUGER CHIEF Appointment Department of Laboratory Medicine in [address] [phone] Mari Noguera M.D. [address] [place] [address], [place] [phone] 03/17/2023 8:40 AM GAUGER CHIEF Office Visit Department of Oncology in [place] [address] [facility] [place] [phone] Mari Noguera M.D. [address] [place] [phone] 03/17/2023 9:45 AM GAUGER CHIEF Infusion Department of Infusion Therapy in [address] [phone] Mari Noguera M.D. [address] [place] [phone] 03/31/2023 10:10 AM GAUGER CHIEF Appointment Department of Laboratory Medicine in [address] [place] [address] Mari Noguera M.D. [address] [place] [phone] 04/04/2023 8:20 AM GAUGER CHIEF Office Visit Department of Oncology in [address] [phone] Mari Noguera M.D. [address] [place] [phone] 04/04/2023 9:00 AM GAUGER CHIEF Infusion Department of Infusion Therapy in [address] [place] [phone] Mari Noguera M.D. [address] [place] [phone] 04/13/2023 10:10 AM GAUGER CHIEF Appointment Department of Laboratory Medicine in [place] [address] [place] [address] Mari Noguera M.D. [address] [place] [phone] 04/14/2023 9:00 AM GAUGER CHIEF Infusion Department of Infusion Therapy in [address] [phone] Mari Noguera M.D. [address] [place] [phone] documented as of this encounter Visit Diagnoses Not on filedocumented in this encounter Additional Health Concerns Infection Onset Date Last Indicated Resolved Time Protective Environment 06/03/2022 06/03/2022 documented as of this encounter Care Teams Bacteriology Research Assistant Relationship Specialty Start Date End Date Elsewhere, Pcp PCP - General Internal Medicine 04/01/22 documented as of this encounter
--- OUTSIDE RECORDS SUMMARY | 2023-03-08 08:47 | XMS_ITS | Encounter Summary ---
Author Name Unknown Organization [facility] Address [address] [place] [address] Care Team Providers Care Medical Billing Coordinator Name Role Phone Elsewhere, Pcp Primary Care Provider Unavailabl e Reason for Visit * Reason Comments Chemotherapy Velcade * Episode Based Medications (Routine) - Authorized Specialty Diagnoses / Procedures Referred By Guillermina zamora Referred To Contact Diagnoses Multiple Myeloma Not Having Achieved Remission (HCC) Procedures VT ONDANSETRON HCL INJECTION VT DARATUMUMAB, HYALURONIDASE [place] BORTEZOMIB INJECTION 1,800 mg on Day 1, 8, 15, 22 for cycles 1 & 2, Day 1, 15 3-6, Day 1 for cycle 7 / 28 day cycles / 17 total visits Mari Noguera M.D. [address] [place] [address] [facility] Region Referral ID Status Reason Start Date Expiration Date V isits Requested Visits Authorized [id number] Authorized 05/28/2021 02/27/2024 31 31 Encounter Details Date Type Department Care Team (Late st Contact Info) Description 02/17/2023 9:15 AM OB TECH Infusion Department of Infusion Therapy in [place], [place] [address] [place] [phone] Mari Noguera M.D. [address] [place] [phone] Multiple Myeloma Not Having Achieved Remission [...] often do you attend [facility] or pentecostal services? 1 to 4 times per year 06/11/2021 Do you belong to any clubs o r organizations such as rastafarian groups, unions, fraternal or athletic groups, or [...] Answer Date Recorded PHQ-2 Score 4 11/18/2021 [facility] - Occupational [...] Sign Reading Time Taken Comments Blood Pressure 103/45 02/17/2023 9:10 AM OB TECH patient denies any symptoms of a soft blood pressure Pulse 56 02/17/2023 9:10 AM OB TECH Temperature 36.7 ??C (98.1 ??F) 02/17/2023 9 :10 AM OB TECH Respiratory Rate 18 02/17/2023 9:10 AM OB TECH Oxygen Saturation 100% 02/17/2023 9:1 0 AM OB TECH Inhaled Oxygen Concentration - - Weight - - Height - - Body Mass Index - - documented in this encounter Plan of Treatment Upcoming Encounters Date Type Department Care Team (Late st Contact Info) Description 03/16/2023 10:30 AM OB TECH Appointment Department of Laboratory Medicine in [address] [phone] Mari Noguera M.D. [address] [place] [phone] 03/17/2023 8:40 AM OB TECH Office Visit Department of Oncology in [address] [phone] Mari Noguera M.D. [address] [place] [phone] 03/17/2023 9:45 AM OB TECH Infusion Department of Infusion Therapy in [address] [phone] Mari Noguera M.D. [address] [place] [phone] 03/31/2023 10:10 AM OB TECH Appointment Department of Laboratory Medicine in [address] [phone] Mari Noguera M.D. [address] [place] [phone] 04/04/2023 8:20 AM OB TECH Office Visit Department of Oncology in [address] [phone] Mari Noguera M.D. [address] [place] [phone] 04/04/2023 9:00 AM OB TECH Infusion Department of Infusion Therapy in [address] [phone] Mari Noguera M.D. [address] [place] [phone] 04/13/2023 10:10 AM OB TECH Appointment Department of Laboratory Medicine in [address] [phone] Mari Noguera M.D. [address] [place] [phone] 04/14/2023 9:00 AM OB TECH Infusion Department of Infusion Therapy in [address] [phone] Mari Noguera M.D. [address] [place] [phone] documented as of this encounter Visit Diagnoses Diagnosis Multiple Myeloma Not Having Achieved Remission (HCC)- Primary documented in this encounter Administered Medications Inactive Administered Medications - up to 3 most recent administrations Medication Order MAR Action Action Date Dose Rate Site bortezomib injection 1.5 mg (VELCADE) 1.5 mg, subcutaneous, Once, On Mon02/17/23 at 0930, For 1 dose, Rotate injection site. Given 02/17/2023 10:11 AM OB TECH 1.5 mg Right Upper Abdomen documented in this encounter Additional Health Concerns Infection Onset Date Last Indicated Resolved Time Protective Environment 06/03/2022 06/03/2022 documented as of this encounter Care Teams Medical Billing Coordinator Relationship Specialty Start Date End Date Elsewhere, Pcp PCP - General Internal Medicine 04/01/22 documented as of this encounter
--- OUTSIDE RECORDS SUMMARY | 2023-03-08 08:47 | XMS_ITS | Encounter Summary ---
Author Name Unknown Organization [facility] Address [address] [place] [address] Care Team Providers Care Starch And Prosize Mixer Name Role Phone Elsewhere, Pcp Primary Care Provider Unavailabl e Reason for Visit * Reason Comments Nurse Visit * Episode Based Medications (Routine) - Authorized Specialty Diagnoses / Procedures Referred By Guillermina t Referred To Contact Diagnoses Multiple Myeloma Not Having Achieved Remission (HCC) Procedures WY ONDANSETRON HCL INJECTION WY DARATUMUMAB, HYALURONIDASE WY BORTEZOMIB INJECTION 1,800 mg on Day 1, 8, 15, 22 for cycles 1 & 2, Day 1, 15 3-6, Day 1 for cycle 7 / 28 day cycles / 17 total visits Mari Noguera M.D. [address] [place] [phone] [facility] Region Referral ID Status Reason Start Date Expiration Date V isits Requested Visits Authorized [id number] Authorized 05/28/2021 02/27/2024 31 31 Encounter Details Date Type Department Care Team (Late st Contact Info) Description 02/10/2023 9:15 AM SAW REPAIRER Infusion Department of Infusion Therapy in [place], [place] [address] [place] [phone] Mari Noguera M.D. [address] [place] [phone] Multiple Myeloma Not Having Achieved Remission [...] How often do you attend chur or church services? 1 to 4 times per year 06/11/2021 Do you belong to any clubs o r organizations such as jain groups, unions, fraternal or athletic groups, or [...] Answer Date Recorded PHQ-2 Score 4 11/18/2021 [facility] - Occupational Stress Questionnaire Answer Date Recorded [...] place to sleep or slept in a fci (including now)? No 06/11/2021 Nutrition Answer Date [...] PM CDT documented as of this encounter Progress Notes * Jonna Encarnacion R.N. - 02/10/2023 9:15 AM CST Patient will be deferred for tx one week with repeat labs due to PLT being 53, per Dr. Noguera. Patient rescheduled for 02/17/23. REPAIRER documented in this encounter Miscellaneous Notes * Addendum Note - Jonna Encarnacion R.N. - 02/10/2023 9:15 AM CSTAddended by: JONNA ENCARNACION on: 02/10/2023 09:46 AM Modules accepted: Orders REPAIRER documented in this encounter Plan of Treatment Upcoming Encounters Date Type Department Care Team (Late st Contact Info) Description 03/16/2023 10:30 AM SAW REPAIRER Appointment Department of Laboratory Medicine in [address] [phone] Mari Noguera M.D. [address] [place] [phone] 03/17/2023 8:40 AM SAW REPAIRER Office Visit Department of Oncology in [address] [phone] Mari Noguera M.D. [address] [place] [phone] 03/17/2023 9:45 AM SAW REPAIRER Infusion Department of Infusion Therapy in [address] [place] [phone] Mari Noguera M.D. [address] [place] [phone] 03/31/2023 10:10 AM SAW REPAIRER Appointment Department of Laboratory Medicine in [address] [phone] Mari Noguera M.D. [address] [place] [phone] 04/04/2023 8:20 AM SAW REPAIRER Office Visit Department of Oncology in [address] [phone] Mari Noguera M.D. [address] [place] [phone] 04/04/2023 9:00 AM SAW REPAIRER Infusion Department of Infusion Therapy in [address] [phone] Mari Noguera M.D. [address] [place] [phone] 04/13/2023 10:10 AM SAW REPAIRER Appointment Department of Laboratory Medicine in [address] [phone] Mari Noguera M.D. [address] [place] [phone] 04/14/2023 9:00 AM SAW REPAIRER Infusion Department of Infusion Therapy in [address] [phone] Mari Noguera M.D. [address] [place] [phone] documented as of this encounter Results * (ABNORMAL) Immunoglobulins (IgG, IgA, and IgM) (03/02/2023 10:56 AM SAW REPAIRER) [facility] Immunoglobulin A (IgA), S 37(L) 61 - 356 mg/dL 03/03/2023 10:26 AM SAW REPAIRER [facility] Immunoglobulin M (IgM), S 12(L) 37 - 286 mg/dL 03/03/2023 11:49 AM SAW REPAIRER [facility] Immunoglobulin G (IgG), S 1060 767 - 1590 mg/dL 03/03/2023 11:24 AM SAW REPAIRER [facility] Blood (Blood, Venous) 03/02/2023 10:56 AM SAW REPAIRER 03/03/2023 6:11 AM SAW REPAIRER Mari Noguera M.D. LAB BLOOD ADD-ON [facility] [address] [place] [address] [facility] [address] [place] [address] * (ABNORMAL) CBC with Differential, Blood (02/17/2023 8:29 AM SAW REPAIRER) [facility] Hemoglobin 11.3(L) 11.6 - 15.0 g/dL 02/17/2023 8:33 AM SAW REPAIRER [facility] Hematocrit 34.6(L) 35.5 - 44.9 % 02/17/2023 8:33 AM SAW REPAIRER [facility] Erythrocytes 3.39(L) 3.92 - 5.13 x10(12)/L 02/17/2023 8:33 AM SAW REPAIRER [facility] MCV 102.1(H) 78.2 - 97.9 fL 02/17/2023 8:33 AM SAW REPAIRER [facility] RBC Distrib Width 16.1 12.2 - 16.1 % 02/17/2023 8:33 AM SAW REPAIRER [facility] Platelet Count 55(L) 157 - 371 x10(9)/L 02/17/2023 8:33 AM SAW REPAIRER [facility] Leukocytes 2.9(L) 3.4 - 9.6 x10(9)/L 02/17/2023 8:33 AM SAW REPAIRER [facility] Neutrophils 1.37(L) 1.56 - 6.45 x10(9)/L 02/17/2023 8:33 AM SAW REPAIRER [facility] Lymphocytes 1.03 0.95 - 3.07 x10(9)/L 02/17/2023 8:33 AM SAW REPAIRER [facility] Monocytes 0.42 0.26 - 0.81 x10(9)/L 02/17/2023 8:33 AM SAW REPAIRER [facility] Eosinophils 0.11 0.03 - 0.48 x10(9)/L 02/17/2023 8:33 AM SAW REPAIRER [facility] Basophils <0.03 0.01 - 0.08 x10(9)/L 02/17/2023 8:33 AM SAW REPAIRER [facility] Blood (Blood, Venous) 02/17/2023 8:29 AM SAW REPAIRER 02/17/2023 8:31 AM SAW REPAIRER Mari Noguera M.D. LAB BLOOD ADD-ON [facility] [address] [place] [address], [facility] in [place] [address] [place] [address] documented in this encounter Visit Diagnoses Diagnosis Multiple Myeloma Not Having Achieved Remission (HCC)- Primary documented in this encounter Additional Health Concerns Infection Onset Date Last Indicated Resolved Time Protective Environment 06/03/2022 06/03/2022 documented as of this encounter Care Teams Starch And Prosize Mixer Relationship Specialty Start Date End Date Elsewhere, Pcp PCP - General Internal Medicine 04/01/22 documented as of this encounter
--- OUTSIDE RECORDS SUMMARY | 2023-03-08 08:47 | XMS_ITS | Encounter Summary ---
Author Name Unknown Organization [facility] Address [address] [place] [address] Care Team Providers Care Barrel Raiser Helper Name Role Phone Elsewhere, Pcp Primary Care Provider Unavailabl e Reason for Visit * Reason Onset Date Comments Medical Certification Form 02/14/2023 [facility] Encounter Details Date Type Department Care Team (Latest Contact Info) Description 02/14/2023 Clinical Communication Department of Oncology in [place], [place] [address] [place] [address] Mari Noguera M.D. [address] [place] [phone] Medical Certification Form ([facility]) Social History Tobacco Use Types Packs/Day Years [...] How often do you attend chur or congregational services? 1 to 4 times per year 06/11/2021 Do you belong to any clubs o r organizations such as baptist groups, unions, fraternal or athletic groups, or [...] encounter Miscellaneous Notes * Telephone Encounter - Jose A Villasenor Lori - 02/14/2023 1:45 PM CST Received medical certification from patient. Placed document on providers desk for review and signature. Provider completed document, faxed to [facility] and placed to copy to be scanned. Fax- [phone] RT/EXPORT CLERK documented in this encounter Plan of Treatment Upcoming Encounters Date Type Department Care Team (Late st Contact Info) Description 03/16/2023 10:30 AM IMPORT/EXPORT CLERK Appointment Department of Laboratory Medicine in [address] [phone] Mari Noguera M.D. [address] [place] [phone] 03/17/2023 8:40 AM IMPORT/EXPORT CLERK Office Visit Department of Oncology in [address] [phone] Mari Noguera M.D. [address] [place] [phone] 03/17/2023 9:45 AM IMPORT/EXPORT CLERK Infusion Department of Infusion Therapy in [address] [phone] Mari Noguera M.D. [address] [place] [phone] 03/31/2023 10:10 AM IMPORT/EXPORT CLERK Appointment Department of Laboratory Medicine in [address] [phone] Mari Noguera M.D. [address] [place] [phone] 04/04/2023 8:20 AM IMPORT/EXPORT CLERK Office Visit Department of Oncology in [address] [phone] Mari Noguera M.D. [address] [place] [address] [phone] 04/04/2023 9:00 AM IMPORT/EXPORT CLERK Infusion Department of Infusion Therapy in [address] [place] [phone] Mari Noguera M.D. [address] [place] [phone] 04/13/2023 10:10 AM IMPORT/EXPORT CLERK Appointment Department of Laboratory Medicine in [address] [place] [address] Mari Noguera M.D. [address] [place] [address] [phone] 04/14/2023 9:00 AM IMPORT/EXPORT CLERK Infusion Department of Infusion Therapy in [address] [place] [phone] Mari Noguera M.D. [address] [place] [phone] documented as of this encounter Visit Diagnoses Not on filedocumented in this encounter Additional Health Concerns Infection Onset Date Last Indicated Resolved Time Protective Environment 06/03/2022 06/03/2022 documented as of this encounter Care Teams Barrel Raiser Helper Relationship Specialty Start Date End Date Elsewhere, Pcp PCP - General Internal Medicine 04/01/22 documented as of this encounter
--- OUTSIDE RECORDS SUMMARY | 2023-03-08 08:47 | XMS_ITS | Encounter Summary ---
Author Name Unknown Organization [facility] Address [address] [place] [address] Care Team Providers Care Care Assistant Name Role Phone Elsewhere, Pcp Primary Care Provider Unavailabl e Encounter Details Date Type Department Care Team (Late st Contact Info) Description 01/30/2023 Orders Only Department of Oncology in [place], [place] [address] [place] [address] Mari Noguera M.D. [address] [place] [phone] Social History Tobacco Use Types Packs/Day Years [...] often do you attend chur ch or adventist services? 1 to 4 times per year 06/11/2021 Do you belong to any clubs o r organizations such as roman catholic groups, unions, fraternal or athletic groups, or [...] Date Recorded PHQ-2 Score 4 11/18/2021 [facility] Occupat ional Health - Occupational [...] place to sleep or slept in a mcfp (including now)? No 06/11/2021 Nutrition Answer Date [...] st Contact Info) Description 03/16/2023 10:30 AM TRANSFORMER ASSEMBLER Appointment Department of Laboratory Medicine in [place] [address] [facility] [place] [phone] Mari Noguera M.D. [address] [place] [phone] 03/17/2023 8:40 AM TRANSFORMER ASSEMBLER Office Visit Department of Oncology in [place] [address] [address] [place] [phone] Mari Noguera M.D. [facility] [place] [phone] 03/17/2023 9:45 AM TRANSFORMER ASSEMBLER Infusion Department of Infusion Therapy in [place] [address] [place] [address] Mari Noguera M.D. [facility] [place] [address] 03/31/2023 10:10 AM TRANSFORMER ASSEMBLER Appointment Department of Laboratory Medicine in [address] [phone] Mari Noguera M.D. [facility] [place] [phone] 04/04/2023 8:20 AM TRANSFORMER ASSEMBLER Office Visit Department of Oncology in [place] [address] [facility] [place] [address] Mari Noguera M.D. [facility] [place] [phone] 04/04/2023 9:00 AM TRANSFORMER ASSEMBLER Infusion Department of Infusion Therapy in [address] [phone] Mari Noguera M.D. [facility] [place] [phone] 04/13/2023 10:10 AM TRANSFORMER ASSEMBLER Appointment Department of Laboratory Medicine in [address] [phone] Mari Noguera M.D. [address] [place] [phone] 04/14/2023 9:00 AM TRANSFORMER ASSEMBLER Infusion Department of Infusion Therapy in [place], [place] [address] [place] [phone] Mari Noguera M.D. [address] [place] [phone] documented as of this encounter Visit Diagnoses Not on filedocumented in this encounter Additional Health Concerns Infection Onset Date Last Indicated Resolved Time Protective Environment 06/03/2022 06/03/2022 documented as of this encounter Care Teams Care Assistant Relationship Specialty Start Date End Date Elsewhere, Pcp PCP - General Internal Medicine 04/01/22 documented as of this encounter
--- OUTSIDE RECORDS SUMMARY | 2023-03-08 08:47 | XMS_ITS | Encounter Summary ---
Author Name Unknown Organization [facility] Address [address] [place] [address] Care Team Providers Care Supervisor Volunteer Services Name Role Phone Elsewhere, Pcp Primary Care Provider Unavailabl e Encounter Details Date Type Department Care Team (Latest Contact Info) Description 01/30/2023 1:09 PM DIALYSIS PATIENT CARE TECHNICIAN - 01/30/2023 11:59 PM [facility] Hospital Encounter Department of Laboratory Medicine in [place], [place] [address] [place] [address] Mari Noguera M.D. [address] [place] [phone] Thrombocytopenia ([facility]) Discharge Disposition: Home or Self Care Social [...] How often do you attend chur or scientologist services? 1 to 4 times per year 06/11/2021 Do you belong to any clubs o r organizations such as episcopal groups, unions, fraternal or athletic groups, or [...] Answer Date Recorded PHQ-2 Score 4 11/18/2021 [facility] of Occupat ional Health - Occupational Stress [...] place to sleep or slept in a long-term (including now)? No 06/11/2021 Nutrition Answer Date [...] Sig Dispensed Refills Start Date End Date aspirin 325 mg tabletIndications:Mult iple Myeloma Not Having Achieved [...] by ondansetron). 30 tablet 3 03/28/2022 03/28/2023 acyclovir (ZOVIRAX) 200 mg capsule Take 2 capsules (400 mg total) by mouth 2 (two) times a day. 60 capsule 11 08/11/2022 02/09/2023 lenalidomide (Revlimid) 10 mg capsuleIndications:Mul tiple Myeloma Not Having Achieved Remission (HCC) Take 1 capsule (10 mg total) by mouth daily. Take on days 1 through 21 of cycle. Take whole with water. Do not break, chew, or open. 21 capsule 0 12/27/2022 02/01/2023 lenalidomide (REVLIMID) 10 mg capsuleIndications:Mul tiple Myeloma Not Having Achieved Remission (HCC) TAKE 1 CAPSULE BY MOUTH 1 TIME A DAY FOR 21 DAYS ON THEN 7 DAYS OFF 21 capsule 0 02/01/2023 03/03/2023 documented as of this encounter Plan of Treatment Upcoming Encounters Date Type Department Care Team (Late st Contact Info) Description 03/16/2023 10:30 AM DIALYSIS PATIENT CARE TECHNICIAN Appointment Department of Laboratory Medicine in [address] [phone] Mari Noguera M.D. [address] [place] [phone] 03/17/2023 8:40 AM DIALYSIS PATIENT CARE TECHNICIAN Office Visit Department of Oncology in [address] [phone] Mari Noguera M.D. [address] [place] [phone] 03/17/2023 9:45 AM DIALYSIS PATIENT CARE TECHNICIAN Infusion Department of Infusion Therapy in [address] [phone] Mari Noguera M.D. [address] [place] [phone] 03/31/2023 10:10 AM DIALYSIS PATIENT CARE TECHNICIAN Appointment Department of Laboratory Medicine in [address] [phone] Mari Noguera M.D. [address] [place] [phone] 04/04/2023 8:20 AM DIALYSIS PATIENT CARE TECHNICIAN Office Visit Department of Oncology in [address] [phone] Mari Noguera M.D. [address] [place] [phone] 04/04/2023 9:00 AM DIALYSIS PATIENT CARE TECHNICIAN Infusion Department of Infusion Therapy in [address] [phone] Mari Noguera M.D. [address] [place] [phone] 04/13/2023 10:10 AM DIALYSIS PATIENT CARE TECHNICIAN Appointment Department of Laboratory Medicine in [address] [phone] Mari Noguera M.D. [address] [place] [phone] 04/14/2023 9:00 AM DIALYSIS PATIENT CARE TECHNICIAN Infusion Department of Infusion Therapy in [address] [phone] Mari Noguera M.D. [address] [place] [phone] documented as of this encounter Procedures Procedure Name Priority Date/Time Associated Diagnosis Comments CBC WITH DIFFERENTIAL, B Routine 01/30/2023 1:16 PM DIALYSIS PATIENT CARE TECHNICIAN Thrombocytopenia (HCC) documented in this encounter Results * (ABNORMAL) CBC with Differential, Blood (01/30/2023 1:16 PM DIALYSIS PATIENT CARE TECHNICIAN) Hemoglobin 12.4 11.6 - 15.0 g/dL 01/30/2023 1:21 PM DIALYSIS PATIENT CARE TECHNICIAN [facility] Hematocrit 38.3 35.5 - 44.9 % 01/30/2023 1:21 PM DIALYSIS PATIENT CARE TECHNICIAN [facility] Erythrocytes 3.87(L) 3.92 - 5.13 x10(12)/L 01/30/2023 1:21 PM DIALYSIS PATIENT CARE TECHNICIAN [facility] MCV 99.0(H) 78.2 - 97.9 fL 01/30/2023 1:21 PM DIALYSIS PATIENT CARE TECHNICIAN [facility] RBC Distrib Width 15.5 12.2 - 16.1 % 01/30/2023 1:21 PM DIALYSIS PATIENT CARE TECHNICIAN [facility] Platelet Count 73(L) 157 - 371 x10(9)/L 01/30/2023 1:21 PM DIALYSIS PATIENT CARE TECHNICIAN [facility] Leukocytes 4.0 3.4 - 9.6 x10(9)/L 01/30/2023 1:21 PM DIALYSIS PATIENT CARE TECHNICIAN [facility] Neutrophils 2.57 1.56 - 6.45 x10(9)/L 01/30/2023 1:21 PM DIALYSIS PATIENT CARE TECHNICIAN [facility] Lymphocytes 1.09 0.95 - 3.07 x10(9)/L 01/30/2023 1:21 PM DIALYSIS PATIENT CARE TECHNICIAN [facility] Monocytes 0.28 0.26 - 0.81 x10(9)/L 01/30/2023 1:21 PM DIALYSIS PATIENT CARE TECHNICIAN [facility] Eosinophils 0.04 0.03 - 0.48 x10(9)/L 01/30/2023 1:21 PM DIALYSIS PATIENT CARE TECHNICIAN [facility] Basophils <0.03 0.01 - 0.08 x10(9)/L 01/30/2023 1:21 PM DIALYSIS PATIENT CARE TECHNICIAN [facility] Blood (Blood, Venous) 01/30/2023 1:16 PM DIALYSIS PATIENT CARE TECHNICIAN 01/30/2023 1:17 PM DIALYSIS PATIENT CARE TECHNICIAN Mari Noguera M.D. LAB BLOOD ADD-ON [facility] [address] [place] [address], [facility] in [place] [address] [place] [address] documented in this encounter Visit Diagnoses Diagnosis Thrombocytopenia (HCC) documented in this encounter Additional Health Concerns Infection Onset Date Last Indicated Resolved Time Protective Environment 06/03/2022 06/03/2022 documented as of this encounter Care Teams Supervisor Volunteer Services Relationship Specialty Start Date End Date Elsewhere, Pcp PCP - General Internal Medicine 04/01/22 documented as of this encounter
--- OUTSIDE RECORDS SUMMARY | 2023-03-08 08:48 | XMS_ITS | Encounter Summary ---
Author Name Unknown Organization [facility] Address [address] [place] [address] Care Team Providers Care Nutrition Tech Name Role Phone Elsewhere, Pcp Primary Care Provider Unavailabl e Reason for Visit * Reason Onset Date Comments Lab Question 01/20/2023 Encounter Details Date Type Department Care Team (Late st Contact Info) Description 01/20/2023 Clinical Communication Department of Oncology in [place], [place] [address] [place] [address] Mari Nougera M.D. [address] [place] [address] Lab Question Social History Tobacco Use Types Packs/Day Years [...] often do you attend [facility] or caodaism services? 1 to 4 times per year 06/11/2021 Do you belong to any clubs o r organizations such as orthodox groups, unions, fraternal or athletic groups, or [...] Answer Date Recorded PHQ-2 Score 4 11/18/2021 [facility] of Occupat ional Health - Occupational Stress [...] st Contact Info) Description 03/16/2023 10:30 AM INFORMATION CONSULTANT Appointment Department of Laboratory Medicine in [address] [phone] Mari Noguera M.D. [address] [place] [phone] 03/17/2023 8:40 AM INFORMATION CONSULTANT Office Visit Department of Oncology in [place] [address] [address] [place] [phone] Mari Noguera M.D. [address] [place] [phone] 03/17/2023 9:45 AM INFORMATION CONSULTANT Infusion Department of Infusion Therapy in [address] [place] [phone] Mari Noguera M.D. [address] [place] [phone] 03/31/2023 10:10 AM INFORMATION CONSULTANT Appointment Department of Laboratory Medicine in [address] [phone] Mari Noguera M.D. [address] [place] [phone] 04/04/2023 8:20 AM INFORMATION CONSULTANT Office Visit Department of Oncology in [address] [phone] Mari Noguera M.D. [address] [place] [phone] 04/04/2023 9:00 AM INFORMATION CONSULTANT Infusion Department of Infusion Therapy in [address] [phone] Mari Noguera M.D. [address] [place] [phone] 04/13/2023 10:10 AM INFORMATION CONSULTANT Appointment Department of Laboratory Medicine in [address] [phone] Mari Noguera M.D. [address] [place] [phone] 04/14/2023 9:00 AM INFORMATION CONSULTANT Infusion Department of Infusion Therapy in [place], [place] [address] [place] [phone] Mari Noguera M.D. [address] [place] [phone] documented as of this encounter Visit Diagnoses Not on filedocumented in this encounter Additional Health Concerns Infection Onset Date Last Indicated Resolved Time Protective Environment 06/03/2022 06/03/2022 documented as of this encounter Care Teams Nutrition Tech Relationship Specialty Start Date End Date Elsewhere, Pcp PCP - General Internal Medicine 04/01/22 documented as of this encounter
--- OUTSIDE RECORDS SUMMARY | 2023-03-08 08:48 | XMS_ITS | Encounter Summary ---
Author Name Unknown Organization [facility] Address [address] [place] [address] Care Team Providers Care Store Mgr Name Role Phone Elsewhere, Pcp Primary Care Provider Unavailabl e Reason for Visit * Reason Comments Follow-up Multiple Myeloma Not Having Achieved Rem ission * Episode Based Medications (Routine) - Authorized Specialty Diagnoses / Procedures Referred By Contac t Referred To Contact Diagnoses Multiple Myeloma Not Having Achieved Remission (HCC) Procedures WV ONDANSETRON HCL INJECTION WV DARATUMUMAB, HYALURONIDASE WV BORTEZOMIB INJECTION 1,800 mg on Day 1, 8, 15, 22 for cycles 1 & 2, Day 1, 15 3-6, Day 1 for cycle 7 / 28 day cycles / 17 total visits Mari Noguera M.D. [address] [place] [address] [facility] Region Referral ID Status Reason Start Date Expiration Date V isits Requested Visits Authorized [id number] Authorized 05/28/2021 02/27/2024 31 31 Encounter Details Date Type Department Care Team (Late st Contact Info) Description 01/27/2023 8:40 AM CULLET WASHER Office Visit Department of Oncology in [place], [place] [address] [place] [address] Mari Noguera M.D. [address] [place] [phone] Multiple Myeloma Not Having Achieved Remission (HCC) (Primary Dx); Transplant Stem Cell (HCC); Thrombocytopenia (HCC) Social History Tobacco Use Types Packs/Day [...] any clubs o r organizations such as confucianist groups, unions, fraternal or athletic groups, or [...] Answer Date Recorded PHQ-2 Score 4 11/18/2021 [facility] of Occupat ional [facility] - Occupational Stress Questionnaire Answer Date Recorded [...] place to sleep or slept in a fdc (including now)? No 06/11/2021 Nutrition Answer Date [...] Sign Reading Time Taken Comments Blood Pressure 120/81 01/27/2023 8:37 AM CULLET WASHER Pulse 53 01/27/2023 8:37 AM CULLET WASHER Temperature 36.3 ??C (97.3 ??F) 01/27/2023 8:37 AM CS T Respiratory Rate - - Oxygen Saturation 99% 01/27/2023 8:37 AM CULLET WASHER Room Air Inhaled Oxygen Concentration - - Weight 80.8 kg (178 lb 2.1 oz) 01/27/2023 8:37 A M CULLET WASHER Height - - Body Mass Index 32.2 10/07/2022 11:14 AM CDT documented in this encounter Progress Notes * Mari Noguera M.D. - 01/27/2023 8:40 AM CST SUBJECTIVE PRIMARY CARE PHYSICIAN ELSEWHERE, PCP CHIEF COMPLAINT / REASON FOR VISIT Keysha Melendez is a 77 y.o. 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 In 2019 bone survey was negative for lytic lesions and the patient was to be followed withblood work every 6 months. Persistent anemia prompted BMBX on 04/15/2021 revealing 85% involvement of lambda light chain restricted plasma cells. Initial treatment with CyBorD x2 cycles, but switched to Lesa-VRD with normalization of renal function and results of HR FISH. Multiple Myeloma Not Having Achieved Remission (HCC) 02/22/2021 Critical Imaging Echo: Indication for study: HILL, Chest tightness w exertion Cardiac Rhythm: Normal sinus.Study quality: Good. Final Impressions: 1. Normal LV size, mildly increased wall thickness, normal function with an estimated EF of 60 - 65%. 2. Normal regional wall motion. 3. Right ventricular cavity size is normal, global systolic RV function is normal. 4. Mildly enlarged left atrium. 5. No hemodynamically significant valve disease detected. 6. Large hepatic cyst again noted. 7. Normal estimated PA and central venous pressures. Comparison Compared to prior exam, there has been no significant change. 04/15/2021 Initial Diagnosis IgG Lambda Multiple Myeloma with HR FISH Data from Initial Diagnosis Presenting symptoms: Anemia, SEDA and known MGUS Labs: Date: Feb/Mar/Apr 2021 Hgb: 8.3 g/dL Plts: 90K Creatinine: 1.4 mg/dL Calcium: 9.1 mg/dL LDH: B2M: 34.8 Total Protein: 13.3 Albumin: 4.1 g/dL Immunoglobulins: Ig mg/dL; IgA: 9 mg/dL; IgM: <10 mg/dL Free light chains: kappa: 8.01 mg/L; lambda: 33.64 mg/L; [place]:Lambda Ratio: 0.24 SPEP: M-spike: 3.26 g/dL Immunofixation: IgG Lambda UPEP: Urine 24 hour total protein: 7 mg; urine M-spike: mg, Immunofixation: Suspicious band in the beta region with lambda specificity.Urine DOMO shows a monoclonal IgG heavychain with associated lambda light chain Imagin05/20/2021 CT Chest: Indication, SOB Bones: Unremarkable for age. No pulmonary embolism. Decreasing size of left pulmonary nodules, possibly resolving infection 04/15/2021 Biopsy/Pathology BONE MARROW AND PERIPHERAL BLOOD: 1. Plasma cell myeloma (WHO 2016) a. Bone marrow involvement: 85% b. Bone marrow cellularity: 90% c. Peripheral blood: - No circulating plasma cells - Severe Macrocytic anemia with marked rouleaux - Moderate thrombocytopenia 2. M-spike: 1.6 g/dl IgG lambda 3. Chromosome and FISH (myeloma panel) studies: Chromosome Analysis: Positive for an abnormal clone with a complex karyotype, including t(14;20), gain of 1q and loss of 1p. 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 Negative for remaining panel probes. 4. Cannot assess storage iron; cannot assess sideroblastic iron 5. Amyloid ([place] red) stain: Negative 04/23/2021 - 05/27/2021 Chemotherapy CyBorD (chosen due to renal dysfunction) 04/23/2021 C1D1 05/27/2021 C2D1 with plans to switch to Lesa-VRD with next cycle Chemotherapy Normalization of renal function and HR FISH prompted change in therapy to Lsea-VRD C1D1 pending 06/24/2021 - 06/24/2021 Chemotherapy Daratumumab (Subcutaneous) RVD (Lenalidomide / Bortezomib / Dexamethasone) (28 day cycles) Start Date: 11/11/2021 - 11/11/2021 Chemotherapy Cyclophosphamide Priming 2 Day Start Date: 11/11/2021 11/11/2021 Other unsuccessful stem cell mobilization with Neupogen and plerixafor. - She proceeded with a single day of a Cytoxan pulsing chemotherapy followed by daily Neupogen on November 11, 2021. - She collected autologous peripheral blood stem cells totaling 3.11 x 10^6 CD34. - Conditioning regimen ==> melphalan 140 mg/m2. 12/02/2021 Bone Marrow Transplant - Auto Day 0 autologous stem cell transplant, all collected stem cells infused 02/15/2022 Biopsy/Pathology Bone marrow biopsy post ASCT Plasma cell proliferative disorder with <5% lambda light chain-restricted plasma cells . 04/08/2022 - Chemotherapy Lenalidomide / Bortezomib Post transplant maintenance Start Date: 04/08/2022 INTERIM HISTORY is seen prior to continuation of maintenance Revlimid/Velcade in the post ASCT setting. She continues to tolerate well. Stable grade 1 peripheral neuropathy, her energy level has been excellent although she does experience some days of increased fatigue. She has occasional loose stool managed with Imodium, ECOG performance status of 1. Pain rated at 0. REVIEW OF SYSTEMS Respiratory: Positive for coughing up mucus (phlegm). Gastrointestinal: Positive for diarrhea. All other systems reviewed and are negative. The following systems were negative: Constitutional, Skin, Eyes, ENT, Cardiovascular, Genitourinary, Hematologic, Musculoskeletal, Neurological, Psychiatric PHYSICAL EXAM Vitals reviewed. LABORATORY DATA Reviewed RADIOLOGICAL DATA No results found. ASSESSMENT / PLAN #1 Multiple Myeloma In Remission, high risk IgG lambda with VGPR post ASCT day 0 12/02/2021 ([facility]) Ms. Treadwell is receiving maintenance therapy with every other week bortezomib and lenalidomide 10 mg21 of 28 days. She has recurrent thrombocytopenia today with platelets of 68, to her platelets have increased 54. I have reached out to her transplant provider to determine if there is any opportunity to transitionher to Revlimid maintenance only. If she continues with the Velcade, will proceed at 20% dose reduction. She is scheduled for treatment on Monday, she will be contacted as to whether she should come to the clinic for that injection. 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 Post transplant immunizations: Posttransplant vaccines began 6 months after transplant through her primary care provider. She has received this year's influenza and COVID vaccine. Recommended RSV as well. Antibiotic prophylaxis: She will discontinue Pen VK since she is 1 year posttransplant. She stoppedBactrim at day 100. Continue acyclovir while on bortezomib until 3 months post bortezomib DVT/PE prophylaxis aspirin 325 mg daily. Mari Noguera M.D. ET WASHER documented in this encounter Plan of Treatment Upcoming Encounters Date Type Department Care Team (Late st Contact Info) Description 03/16/2023 10:30 AM CULLET WASHER Appointment Department of Laboratory Medicine in [address] [phone] Mari Noguera M.D. [address] [place] [phone] 03/17/2023 8:40 AM CULLET WASHER Office Visit Department of Oncology in [address] [phone] Mari Noguera M.D. [address] [place] [phone] 03/17/2023 9:45 AM CULLET WASHER Infusion Department of Infusion Therapy in [address] [phone] Mari Noguera M.D. [address] [place] [phone] 03/31/2023 10:10 AM CULLET WASHER Appointment Department of Laboratory Medicine in [address] [place] [address] Mari Noguera M.D. [address] [place] [address] [phone] 04/04/2023 8:20 AM CULLET WASHER Office Visit Department of Oncology in [address] [place] [address] Mari Noguera M.D. [address] [place] [phone] 04/04/2023 9:00 AM CULLET WASHER Infusion Department of Infusion Therapy in [address] [place] [address] Mari Noguera M.D. [address] [place] [phone] 04/13/2023 10:10 AM CULLET WASHER Appointment Department of Laboratory Medicine in [place], [place] [address] [facility] [address] Mari Noguera M.D. [address] [place] [phone] 04/14/2023 9:00 AM CULLET WASHER Infusion Department of Infusion Therapy in [address] [place] [address] Mari Noguera M.D. [address] [place] [phone] documented as of this encounter Visit Diagnoses Diagnosis Multiple Myeloma Not Having Achieved Remission (HCC)- Primary Transplant Stem Cell (HCC) Thrombocytopenia (HCC) documented in this encounter Additional Health Concerns Infection Onset Date Last Indicated Resolved Time Protective Environment 06/03/2022 06/03/2022 documented as of this encounter Care Teams Store Mgr Relationship Specialty Start Date End Date Elsewhere, Pcp PCP - General Internal Medicine 04/01/22 documented as of this encounter
--- OUTSIDE RECORDS SUMMARY | 2023-03-08 08:48 | XMS_ITS | Encounter Summary ---
Author Name Unknown Organization [facility] Address [address] [place] [address] Care Team Providers Care Track Leader Name Role Phone Elsewhere, Pcp Primary Care Provider Unavailabl e Encounter Details Date Type Department Care Team (Latest Contact Info) Description 01/18/2023 9:33 AM STAGECRAFT TEACHER - 01/18/2023 11:59 PM [facility] Encounter Department of Laboratory Medicine in [place], [place] [address] [place] [address] Mari Noguera M.D. [address] [place] [phone] Discharge Disposition: Home or Self Care Social [...] How often do you attend chur or hinduism services? 1 to 4 times per year 06/11/2021 Do you belong to any clubs o r organizations such as hinduism groups, unions, fraternal or athletic groups, or [...] Answer Date Recorded PHQ-2 Score 4 11/18/2021 [facility] of Occupat ional Health - Occupational Stress [...] or open. 21 capsule 0 12/27/2022 02/01/2023 penicillin V potassium (VEETIDS) 500 mg tablet TAKE 1 TABLET BY MOUTH TWICE DAILY 60 tablet 2 12/08/2022 01/27/2023 documented as of this encounter Plan of Treatment Upcoming Encounters Date Type Department Care Team (Late st Contact Info) Description 03/16/2023 10:30 AM STAGECRAFT TEACHER Appointment Department of Laboratory Medicine in [place], [place] [address] [place] [address] Mari Noguera M.D. [address] [place] [phone] 03/17/2023 8:40 AM STAGECRAFT TEACHER Office Visit Department of Oncology in [address] [phone] Mari Noguera M.D. [address] [place] [phone] 03/17/2023 9:45 AM STAGECRAFT TEACHER Infusion Department of Infusion Therapy in [address] [phone] Mari Noguera M.D. [address] [place] [phone] 03/31/2023 10:10 AM STAGECRAFT TEACHER Appointment Department of Laboratory Medicine in [place], [place] [address] [place] [phone] Mari Noguera M.D. [address] [place] [phone] 04/04/2023 8:20 AM STAGECRAFT TEACHER Office Visit Department of Oncology in [address] [place] [phone] Mari Noguera M.D. [address] [place] [phone] 04/04/2023 9:00 AM STAGECRAFT TEACHER Infusion Department of Infusion Therapy in [address] [place] [phone] Mari Noguera M.D. [address] [place] [phone] 04/13/2023 10:10 AM STAGECRAFT TEACHER Appointment Department of Laboratory Medicine in [address] [place] [address] Mari Noguera M.D. [address] [place] [phone] 04/14/2023 9:00 AM STAGECRAFT TEACHER Infusion Department of Infusion Therapy in [address] [place] [phone] Mari Noguera M.D. [address] [place] [phone] documented as of this encounter Visit Diagnoses Not on filedocumented in this encounter Additional Health Concerns Infection Onset Date Last Indicated Resolved Time Protective Environment 06/03/2022 06/03/2022 documented as of this encounter Care Teams Track Leader Relationship Specialty Start Date End Date Elsewhere, Pcp PCP - General Internal Medicine 04/01/22 documented as of this encounter
--- OUTSIDE RECORDS SUMMARY | 2023-03-08 08:48 | XMS_ITS | Encounter Summary ---
Author Name Unknown Organization [facility] Address [address] [place] [address] Care Team Providers Care Check And Transfer Beader Name Role Phone Elsewhere, Pcp Primary Care Provider Unavailabl e Reason for Visit * Reason Comments Med Refill Encounter Details Date Type Department Care Team (Late st Contact Info) Description 01/23/2023 Refill Department of Oncology in [place], [place] [address] [place] [phone] Mari Noguera M.D. [address] [place] [phone] Med Refill Social History Tobacco [...] week 06/11/2021 How often do you attend [facility] or holiness services? 1 to 4 times per year 06/11/2021 Do you belong to any clubs o r organizations such as bahai groups, unions, fraternal or athletic groups, or [...] 4 11/18/2021 [facility] of Occupat ionwi Health - Occupational Stress Questionnaire Answer Date [...] place to sleep or slept in a care home (including now)? No 06/11/2021 Nutrition Answer [...] st Contact Info) Description 03/16/2023 10:30 AM MAIL CLERK BILLS Appointment Department of Laboratory Medicine in [place] [address] [place] [phone] Mari Noguera M.D. [address] [place] [phone] 03/17/2023 8:40 AM MAIL CLERK BILLS Office Visit Department of Oncology in [address] [place] [phone] Mari Noguera M.D. [address] [place] [phone] 03/17/2023 9:45 AM MAIL CLERK BILLS Infusion Department of Infusion Therapy in [address] [place] [address] Mari Noguera M.D. [address] [place] [phone] 03/31/2023 10:10 AM MAIL CLERK BILLS Appointment Department of Laboratory Medicine in [address] [phone] Mari Noguera M.D. [address] [place] [phone] 04/04/2023 8:20 AM MAIL CLERK BILLS Office Visit Department of Oncology in [address] [place] [address] Mari Noguera M.D. [address] [place] [phone] 04/04/2023 9:00 AM MAIL CLERK BILLS Infusion Department of Infusion Therapy in [address] [phone] Mari Noguera M.D. [address] [place] [phone] 04/13/2023 10:10 AM MAIL CLERK BILLS Appointment Department of Laboratory Medicine in [address] [phone] Mari Noguera M.D. [address] [place] [phone] 04/14/2023 9:00 AM MAIL CLERK BILLS Infusion Department of Infusion Therapy in [place], [place] [address] [place] [phone] Mari Noguera M.D. [address] [place] [phone] documented as of this encounter Visit Diagnoses Diagnosis Multiple Myeloma Not Having Achieved Remission (HCC) documented in this encounter Additional Health Concerns Infection Onset Date Last Indicated Resolved Time Protective Environment 06/03/2022 06/03/2022 documented as of this encounter Care Teams Check And Transfer Beader Relationship Specialty Start Date End Date Elsewhere, Pcp PCP - General Internal Medicine 04/01/22 documented as of this encounter
--- OUTSIDE RECORDS SUMMARY | 2023-03-08 08:48 | XMS_ITS | Encounter Summary ---
Author Name Unknown Organization [facility] Address [address] [place] [address] Care Team Providers Care Buy Boat Operator Name Role Phone Elsewhere, Pcp Primary Care Provider Unavailabl e Reason for Referral * Outpatient (Routine) Specialty Diagnoses / Procedures Referred By Guillermina zamora Referred To Contact Hematology Oncology Mari Noguera M.D. [address] [place] [phone] [facility] Region Referral ID Status Reason Start Date Expiration Date Visits Re quested Visits Authorized LABORER Reason for Visit * Reason Comments Other Outpatient Infusion * Episode Based Medications (Routine) - Authorized Specialty Diagnoses / Procedures Referred By Guillermina zamora Referred To Contact Diagnoses Multiple Myeloma Not Having Achieved Remission (HCC) Procedures [place] ONDANSETRON HCL INJECTION [place] DARATUMUMAB, HYALURONIDASE [place] BORTEZOMIB INJECTION 1,800 mg on Day 1, 8, 15, 22 for cycles 1 & 2, Day 1, 15 3-6, Day 1 for cycle 7 / 28 day cycles / 17 total visits Mari Noguera M.D. [address] [place] [phone] [facility] Region Referral ID Status Reason Start Date Expiration Date V isits Requested Visits Authorized [id number] Authorized 05/28/2021 02/27/2024 31 31 Encounter Details Date Type Department Care Team (Late st Contact Info) Description 01/20/2023 11:45 AM OVEN LABORER Infusion Department of Infusion Therapy in [place], [place] [address] [place] [address] Mari Noguera M.D. [address] [place] [address] Multiple Myeloma Not Having Achieved [...] often do you attend chur ch or pentecostal services? 1 to 4 times per year 06/11/2021 Do you belong to any clubs o r organizations such as scientologist groups, unions, fraternal or athletic groups, or [...] Answer Date Recorded PHQ-2 Score 4 11/18/2021 [facility] - Occupational Stress Questionnaire Answer Date Recorded [...] place to sleep or slept in a correction (including now)? No 06/11/2021 Nutrition Answer Date [...] st Contact Info) Description 03/16/2023 10:30 AM OVEN LABORER Appointment Department of Laboratory Medicine in [address] [phone] Mari Noguera M.D. [address] [place] [phone] 03/17/2023 8:40 AM OVEN LABORER Office Visit Department of Oncology in [address] [phone] Mari Noguera M.D. [address] [place] [phone] 03/17/2023 9:45 AM OVEN LABORER Infusion Department of Infusion Therapy in [address] [phone] Mari Noguera M.D. [address] [place] [phone] 03/31/2023 10:10 AM OVEN LABORER Appointment Department of Laboratory Medicine in [address] [phone] Mari Noguera M.D. [address] [place] [phone] 04/04/2023 8:20 AM OVEN LABORER Office Visit Department of Oncology in [address] [phone] Mari Noguera M.D. [address] [place] [phone] 04/04/2023 9:00 AM OVEN LABORER Infusion Department of Infusion Therapy in [address] [phone] Mari Noguera M.D. [address] [place] [phone] 04/13/2023 10:10 AM OVEN LABORER Appointment Department of Laboratory Medicine in [address] [phone] Mari Noguera M.D. [address] [place] [phone] 04/14/2023 9:00 AM OVEN LABORER Infusion Department of Infusion Therapy in [address] [phone] Mari Noguera M.D. [address] [place] [phone] Scheduled Referrals Name Type Priority Associated Diagnoses Order Schedule Hematology office visit (clinic) [facility] Region; Pre-Chemo Outpatient Referral Routine Multiple Myeloma Not Having Achieved Remission (HCC) Expected: 01/27/2023, Expires: 01/28/2024 documented as of this encounter Results * (ABNORMAL) Comprehensive Metabolic Panel (01/27/2023 8:00 AM OVEN LABORER) Potassium, P 4.2 3.6 - 5.2 mmol/L 01/27/2023 8:26 AM OVEN LABORER [facility] Sodium, P 138 135 - 145 mmol/L 01/27/2023 8:26 AM OVEN LABORER [facility] Chloride, P 99 98 - 107 mmol/L 01/27/2023 8:26 AM OVEN LABORER [facility] Bicarbonate, P 30(H) 22 - 29 mmol/L 01/27/2023 8:26 AM OVEN LABORER [facility] Anion Gap, P 9 7 - 15 01/27/2023 8:26 AM OVEN LABORER [facility] BUN (Blood Urea Nitrogen), P 34(H) 6 - 21 mg/dL 01/27/2023 8:26 AM OVEN LABORER [facility] Creatinine 1.32(H) 0.59 - 1.04 mg/dL 01/27/2023 8:26 AM OVEN LABORER [facility] Estimated GFR (eGFR) 42(L) >=60 mL/min/BS A 01/27/2023 8:26 AM OVEN LABORER [facility] Comment: Estimated GFR calculated using the 2020 CKD_EPI creatinine equation. Calcium, Total, P 10.0 8.8 - 10.2 mg/dL 01/27/2023 8:26 AM OVEN LABORER [facility] Glucose, P 110 70 - 140 mg/dL 01/27/2023 8:26 AM OVEN LABORER [facility] Protein, Total, P 6.9 6.3 - 7.9 g/dL 01/27/2023 8:26 AM OVEN LABORER [facility] Albumin, P 4.0 3.5 - 5.0 g/dL 01/27/2023 8:26 AM OVEN LABORER [facility] Aspartate Aminotransferase (AST), P 17 8 - 43 U/L 01/27/2023 8:26 AM OVEN LABORER [facility] Alkaline Phosphatase, P 78 35 - 104 U/L 01/27/2023 8:26 AM OVEN LABORER [facility] Alanine Aminotransferase (ALT), P 12 7 - 45 U/L 01/27/2023 8:26 AM OVEN LABORER [facility] Bilirubin, Total, P <0.2 0.0 - 1.2 mg/dL 01/27/2023 8:26 AM OVEN LABORER [facility] Blood (Blood, Venous) 01/27/2023 8:00 AM OVEN LABORER 01/27/2023 8:01 AM OVEN LABORER Mari Noguera M.D. LAB BLOOD ADD-ON [facility] [address] [place] [address], [facility] [place] [address] [place] [address] * (ABNORMAL) CBC with Differential, Blood (01/27/2023 8:00 AM OVEN LABORER) Hemoglobin 12.2 11.6 - 15.0 g/dL 01/27/2023 8:06 AM OVEN LABORER [facility] Hematocrit 38.0 35.5 - 44.9 % 01/27/2023 8:06 AM OVEN LABORER [facility] Erythrocytes 3.82(L) 3.92 - 5.13 x10(12)/L 01/27/2023 8:06 AM OVEN LABORER [facility] MCV 99.5(H) 78.2 - 97.9 fL 01/27/2023 8:06 AM OVEN LABORER [facility] RBC Distrib Width 15.8 12.2 - 16.1 % 01/27/2023 8:06 AM OVEN LABORER [facility] Platelet Count 68(L) 157 - 371 x10(9)/L 01/27/2023 8:06 AM OVEN LABORER [facility] Leukocytes 3.5 3.4 - 9.6 x10(9)/L 01/27/2023 8:06 AM OVEN LABORER [facility] Neutrophils 2.05 1.56 - 6.45 x10(9)/L 01/27/2023 8:06 AM OVEN LABORER [facility] Lymphocytes 0.94(L) 0.95 - 3.07 x10(9)/L 01/27/2023 8:06 AM OVEN LABORER [facility] Monocytes 0.41 0.26 - 0.81 x10(9)/L 01/27/2023 8:06 AM OVEN LABORER [facility] Eosinophils 0.05 0.03 - 0.48 x10(9)/L 01/27/2023 8:06 AM OVEN LABORER [facility] Basophils 0.03 0.01 - 0.08 x10(9)/L 01/27/2023 8:06 AM OVEN LABORER [facility] Blood (Blood, Venous) 01/27/2023 8:00 AM OVEN LABORER 01/27/2023 8:01 AM OVEN LABORER Mari Noguera M.D. LAB BLOOD ADD-ON [facility] [address] [place] [address], [facility] [place] [address] [place] [phone] documented in this encounter Visit Diagnoses Diagnosis Multiple Myeloma Not Having Achieved Remission (HCC)- Primary documented in this encounter Additional Health Concerns Infection Onset Date Last Indicated Resolved Time Protective Environment 06/03/2022 06/03/2022 documented as of this encounter Care Teams Buy Boat Operator Relationship Specialty Start Date End Date Elsewhere, Pcp PCP - General Internal Medicine 04/01/22 documented as of this encounter
--- OUTSIDE RECORDS SUMMARY | 2023-03-08 08:48 | XMS_ITS | Encounter Summary ---
Author Name Unknown Organization [facility] Address [address] [place] [address] Care Team Providers Care Acetaldehyde Converter Operator Name Role Phone Elsewhere, Pcp Primary Care Provider Unavailabl e Encounter Details Date Type Department Care Team (Late st Contact Info) Description 01/25/2023 Orders Only Department of Oncology in [place], [place] [address] [place] [address] Mari Noguera M.D. [address] [place] [phone] Social History Tobacco Use Types Packs/Day Years [...] often do you attend chur ch or samaritan services? 1 to 4 times per year [...] Answer Date Recorded PHQ-2 Score 4 11/18/2021 [facility] - Occupational [...] place to sleep or slept in a chcf (including now)? No 06/11/2021 Nutrition Answer Date [...] st Contact Info) Description 03/16/2023 10:30 AM LARD MAKER Appointment Department of Laboratory Medicine in [place] [address] [facility] [place] [phone] Mari Noguera M.D. [address] [place] [phone] 03/17/2023 8:40 AM LARD MAKER Office Visit Department of Oncology in [place] [address] [place] [phone] Mari Noguera M.D. [facility] [place] [place] [phone] 03/17/2023 9:45 AM LARD MAKER Infusion Department of Infusion Therapy in [place] [address] [place] [phone] Mari Noguera M.D. [facility] [place] [phone] 03/31/2023 10:10 AM LARD MAKER Appointment Department of Laboratory Medicine in [address] [phone] Mari Noguera M.D. [facility] [place] [phone] 04/04/2023 8:20 AM LARD MAKER Office Visit Department of Oncology in [place] [address] [place] [address] Mari Noguera M.D. [facility] [place] [phone] 04/04/2023 9:00 AM LARD MAKER Infusion Department of Infusion Therapy in [address] [phone] Mari Noguera M.D. [facility] [place] [phone] 04/13/2023 10:10 AM LARD MAKER Appointment Department of Laboratory Medicine in [address] [phone] Mari Noguera M.D. [address] [place] [phone] 04/14/2023 9:00 AM LARD MAKER Infusion Department of Infusion Therapy in [place], [place] [address] [place] [phone] Mari Noguera M.D. [address] [place] [phone] documented as of this encounter Visit Diagnoses Not on filedocumented in this encounter Additional Health Concerns Infection Onset Date Last Indicated Resolved Time Protective Environment 06/03/2022 06/03/2022 documented as of this encounter Care Teams Acetaldehyde Converter Operator Relationship Specialty Start Date End Date Elsewhere, Pcp PCP - General Internal Medicine 04/01/22 documented as of this encounter
--- OUTSIDE RECORDS SUMMARY | 2023-03-08 08:48 | XMS_ITS | Encounter Summary ---
Author Name Unknown Organization [facility] Address [address] [place] [address] Care Team Providers Care Collar Runner Name Role Phone Elsewhere, Pcp Primary Care Provider Unavailabl e Encounter Details Date Type Department Care Team (Late st Contact Info) Description 01/20/2023 Clinical Communication Department of Oncology in [place], [place] [address] [place] [phone] Mari Noguera M.D. [address] [place] [phone] Social History Tobacco Use Types Packs/Day Years [...] often do you attend chur ch or rastafari services? 1 to 4 times per year 06/11/2021 Do you belong to any clubs o r organizations such as synagogue groups, unions, fraternal or athletic groups, or [...] Date Recorded PHQ-2 Score 4 11/18/2021 [facility] - Occupational [...] the money to buy more. Never true 04/15/20 22 Within the past 12 months, t [...] place to sleep or slept in a detention (including now)? No 06/11/2021 Nutrition Answer Date [...] st Contact Info) Description 03/16/2023 10:30 AM WATER/WASTEWATER PROJECT MANAGER Appointment Department of Laboratory Medicine in [place] [address] [place] [phone] Mari Noguera M.D. [address] [place] [phone] 03/17/2023 8:40 AM WATER/WASTEWATER PROJECT MANAGER Office Visit Department of Oncology in [address] [place] [phone] Mari Noguera M.D. [address] [place] [phone] 03/17/2023 9:45 AM WATER/WASTEWATER PROJECT MANAGER Infusion Department of Infusion Therapy in [address] [phone] Mari Noguera M.D. [address] [place] [phone] 03/31/2023 10:10 AM WATER/WASTEWATER PROJECT MANAGER Appointment Department of Laboratory Medicine in [address] [phone] Mari Noguera M.D. [address] [place] [phone] 04/04/2023 8:20 AM WATER/WASTEWATER PROJECT MANAGER Office Visit Department of Oncology in [address] [place] [address] Mari Noguera M.D. [address] [place] [phone] 04/04/2023 9:00 AM WATER/WASTEWATER PROJECT MANAGER Infusion Department of Infusion Therapy in [address] [phone] Mari Noguera M.D. [address] [place] [phone] 04/13/2023 10:10 AM WATER/WASTEWATER PROJECT MANAGER Appointment Department of Laboratory Medicine in [address] [phone] Mari Noguera M.D. [address] [place] [phone] 04/14/2023 9:00 AM WATER/WASTEWATER PROJECT MANAGER Infusion Department of Infusion Therapy in [place], [place] [address] [place] [address] Mari Noguera M.D. [address] [place] [phone] documented as of this encounter Visit Diagnoses Not on filedocumented in this encounter Additional Health Concerns Infection Onset Date Last Indicated Resolved Time Protective Environment 06/03/2022 06/03/2022 documented as of this encounter Care Teams Collar Runner Relationship Specialty Start Date End Date Elsewhere, Pcp PCP - General Internal Medicine 04/01/22 documented as of this encounter
--- OUTSIDE RECORDS SUMMARY | 2023-03-08 08:48 | XMS_ITS | Encounter Summary ---
Author Name Unknown Organization [facility] Address [address] [place] [address] Care Team Providers Care Shade Matcher Name Role Phone Elsewhere, Pcp Primary Care Provider Unavailabl e Reason for Visit * Episode Based Medications (Routine) - Authorized Specialty Diagnoses / Procedures Referred By Guillermina zamora Referred To Contact Diagnoses Multiple Myeloma Not Having Achieved Remission (HCC) Procedures [place] ONDANSETRON HCL INJECTION [place] DARATUMUMAB, HYALURONIDASE [place] BORTEZOMIB INJECTION 1,800 mg on Day 1, 8, 15, 22 for cycles 1 & 2, Day 1, 15 3-6, Day 1 for cycle 7 / 28 day cycles / 17 total visits Mari Noguera M.D. [address] [place] [phone] [facility] Region Referral ID Status Reason Start Date Expiration Date V isits Requested Visits Authorized [id number] Authorized 05/28/2021 02/27/2024 31 31 Encounter Details Date Type Department Care Team (Latest Contact Info) Description 01/27/2023 7:50 AM DIRECTOR OF KNOWLEDGE MANAGEMENT - 01/27/2023 11:59 PM DIRECTOR OF KNOWLEDGE MANAGEMENT Hospital Encounter Department of Laboratory Medicine in [place], [place] [address] [place] [phone] Mari Noguera M.D. [address] [place] [phone] Multiple Myeloma Not Having Achieved [...] How often do you attend chur or yarsanism services? 1 to 4 times per year 06/11/2021 Do you belong to any clubs o r organizations such as yazidi groups, unions, fraternal or athletic groups, or [...] place to sleep or slept in a long term (including now)? No 06/11/2021 Nutrition Answer Date [...] Start Date End Date aspirin [address] tabletIndications:Mult iple Myeloma [...] st Contact Info) Description 03/16/2023 10:30 AM DIRECTOR OF KNOWLEDGE MANAGEMENT Appointment Department of Laboratory Medicine in [address] [phone] Mari Noguera M.D. [address] [place] [phone] 03/17/2023 8:40 AM DIRECTOR OF KNOWLEDGE MANAGEMENT Office Visit Department of Oncology in [address] [phone] Mari Noguera M.D. [address] [place] [phone] 03/17/2023 9:45 AM DIRECTOR OF KNOWLEDGE MANAGEMENT Infusion Department of Infusion Therapy in [address] [place] [phone] Mari Noguera M.D. [address] [place] [phone] 03/31/2023 10:10 AM DIRECTOR OF KNOWLEDGE MANAGEMENT Appointment Department of Laboratory Medicine in [address] [place] [address] Mari Noguera M.D. [address] [place] [phone] 04/04/2023 8:20 AM DIRECTOR OF KNOWLEDGE MANAGEMENT Office Visit Department of Oncology in [address] [place] [address] Mari Noguera M.D. [address] [place] [phone] 04/04/2023 9:00 AM DIRECTOR OF KNOWLEDGE MANAGEMENT Infusion Department of Infusion Therapy in [address] [phone] Mari Noguera M.D. [address] [place] [phone] 04/13/2023 10:10 AM DIRECTOR OF KNOWLEDGE MANAGEMENT Appointment Department of Laboratory Medicine in [address] [place] [address] Mari Noguera M.D. [address] [place] [phone] 04/14/2023 9:00 AM DIRECTOR OF KNOWLEDGE MANAGEMENT Infusion Department of Infusion Therapy in [address] [phone] Mari Noguera M.D. [address] [place] [phone] documented as of this encounter Procedures Procedure Name Priority Date/Time Associated Diagnosis Comments CBC WITH DIFFERENTIAL, B Routine 01/27/2023 8:00 AM DIRECTOR OF KNOWLEDGE MANAGEMENT Multiple Myeloma Not Having Achieved Remission (HCC) COMPREHENSIVE METABOLIC PANEL, S/P Routine 01/27/2023 8:00 AM DIRECTOR OF KNOWLEDGE MANAGEMENT Multiple Myeloma Not Having Achieved Remission (HCC) documented in this encounter Results * (ABNORMAL) Comprehensive Metabolic Panel (01/27/2023 8:00 AM DIRECTOR OF KNOWLEDGE MANAGEMENT) Potassium, P 4.2 3.6 - 5.2 mmol/L 01/27/2023 8:26 AM DIRECTOR OF KNOWLEDGE MANAGEMENT RDWG Sodium, P 138 135 - 145 mmol/L 01/27/2023 8:26 AM DIRECTOR OF KNOWLEDGE MANAGEMENT [facility] Chloride, P 99 98 - 107 mmol/L 01/27/2023 8:26 AM DIRECTOR OF KNOWLEDGE MANAGEMENT [facility] Bicarbonate, P 30(H) 22 - 29 mmol/L 01/27/2023 8:26 AM DIRECTOR OF KNOWLEDGE MANAGEMENT [facility] Anion Gap, P 9 7 - 15 01/27/2023 8:26 AM DIRECTOR OF KNOWLEDGE MANAGEMENT [facility] BUN (Blood Urea Nitrogen), P 34(H) 6 - 21 mg/dL 01/27/2023 8:26 AM DIRECTOR OF KNOWLEDGE MANAGEMENT R[facility]G Creatinine 1.32(H) 0.59 - 1.04 mg/dL 01/27/2023 8:26 AM DIRECTOR OF KNOWLEDGE MANAGEMENT [facility] Estimated GFR (eGFR) 42(L) >=60 mL/min/BS A 01/27/2023 8:26 AM DIRECTOR OF KNOWLEDGE MANAGEMENT [facility] Comment: Estimated GFR calculated using the 2020 CKD_EPI creatinine equation. Calcium, Total, P 10.0 8.8 - 10.2 mg/dL 01/27/2023 8:26 AM DIRECTOR OF KNOWLEDGE MANAGEMENT R[facility] Glucose, P 110 70 - 140 mg/dL 01/27/2023 8:26 AM DIRECTOR OF KNOWLEDGE MANAGEMENT [facility] Protein, Total, P 6.9 6.3 - 7.9 g/dL 01/27/2023 8:26 AM DIRECTOR OF KNOWLEDGE MANAGEMENT [facility] Albumin, P 4.0 3.5 - 5.0 g/dL 01/27/2023 8:26 AM DIRECTOR OF KNOWLEDGE MANAGEMENT [facility] Aspartate Aminotransferase (AST), P 17 8 - 43 U/L 01/27/2023 8:26 AM DIRECTOR OF KNOWLEDGE MANAGEMENT [facility] Alkaline Phosphatase, P 78 35 - 104 U/L 01/27/2023 8:26 AM DIRECTOR OF KNOWLEDGE MANAGEMENT [facility] Alanine Aminotransferase (ALT), P 12 7 - 45 U/L 01/27/2023 8:26 AM DIRECTOR OF KNOWLEDGE MANAGEMENT [facility] Bilirubin, Total, P <0.2 0.0 - 1.2 mg/dL 01/27/2023 8:26 AM DIRECTOR OF KNOWLEDGE MANAGEMENT [facility] Blood (Blood, Venous) 01/27/2023 8:00 AM DIRECTOR OF KNOWLEDGE MANAGEMENT 01/27/2023 8:01 AM DIRECTOR OF KNOWLEDGE MANAGEMENT Mari Noguera M.D. LAB BLOOD ADD-ON [facility] [address] [place] [address], [facility] in [place] [address] [place] [address] * (ABNORMAL) CBC with Differential, Blood (01/27/2023 8:00 AM DIRECTOR OF KNOWLEDGE MANAGEMENT) Hemoglobin 12.2 11.6 - 15.0 g/dL 01/27/2023 8:06 AM DIRECTOR OF KNOWLEDGE MANAGEMENT R[facility] Hematocrit 38.0 35.5 - 44.9 % 01/27/2023 8:06 AM DIRECTOR OF KNOWLEDGE MANAGEMENT [facility] Erythrocytes 3.82(L) 3.92 - 5.13 x10(12)/L 01/27/2023 8:06 AM DIRECTOR OF KNOWLEDGE MANAGEMENT [facility] MCV 99.5(H) 78.2 - 97.9 fL 01/27/2023 8:06 AM DIRECTOR OF KNOWLEDGE MANAGEMENT [facility] RBC Distrib Width 15.8 12.2 - 16.1 % 01/27/2023 8:06 AM DIRECTOR OF KNOWLEDGE MANAGEMENT [facility] Platelet Count 68(L) 157 - 371 x10(9)/L 01/27/2023 8:06 AM DIRECTOR OF KNOWLEDGE MANAGEMENT [facility] Leukocytes 3.5 3.4 - 9.6 x10(9)/L 01/27/2023 8:06 AM DIRECTOR OF KNOWLEDGE MANAGEMENT [facility] Neutrophils 2.05 1.56 - 6.45 x10(9)/L 01/27/2023 8:06 AM DIRECTOR OF KNOWLEDGE MANAGEMENT [facility] Lymphocytes 0.94(L) 0.95 - 3.07 x10(9)/L 01/27/2023 8:06 AM DIRECTOR OF KNOWLEDGE MANAGEMENT [facility] Monocytes 0.41 0.26 - 0.81 x10(9)/L 01/27/2023 8:06 AM DIRECTOR OF KNOWLEDGE MANAGEMENT [facility] Eosinophils 0.05 0.03 - 0.48 x10(9)/L 01/27/2023 8:06 AM DIRECTOR OF KNOWLEDGE MANAGEMENT [facility] Basophils 0.03 0.01 - 0.08 x10(9)/L 01/27/2023 8:06 AM DIRECTOR OF KNOWLEDGE MANAGEMENT [facility] Blood (Blood, Venous) 01/27/2023 8:00 AM DIRECTOR OF KNOWLEDGE MANAGEMENT 01/27/2023 8:01 AM DIRECTOR OF KNOWLEDGE MANAGEMENT Mari Noguera M.D. LAB BLOOD ADD-ON [facility] [address] [place] [address], [facility] [place] [address] [place] [phone] documented in this encounter Visit Diagnoses Diagnosis Multiple Myeloma Not Having Achieved Remission (HCC) documented in this encounter Additional Health Concerns Infection Onset Date Last Indicated Resolved Time Protective Environment 06/03/2022 06/03/2022 documented as of this encounter Care Teams Shade Matcher Relationship Specialty Start Date End Date Elsewhere, Pcp PCP - General Internal Medicine 04/01/22 documented as of this encounter
--- OUTSIDE RECORDS SUMMARY | 2023-03-08 08:48 | XMS_ITS | Encounter Summary ---
Author Name Unknown Organization [facility] Address [address] [place] [address] Care Team Providers Care Interactive Media Marketing Strategist Name Role Phone Elsewhere, Pcp Primary Care Provider Unavailabl e Reason for Visit * Episode Based Medications (Routine) - Authorized Specialty Diagnoses / Procedures Referred By Guillremina zamora Referred To Contact Diagnoses Multiple Myeloma Not Having Achieved Remission (HCC) Procedures CO ONDANSETRON HCL INJECTION CO DARATUMUMAB, HYALURONIDASE CO BORTEZOMIB INJECTION 1,800 mg on Day 1, 8, 15, 22 for cycles 1 & 2, Day 1, 15 3-6, Day 1 for cycle 7 / 28 day cycles / 17 total visits Mari Noguera M.D. [address] [place] [address] [facility] Region Referral ID Status Reason Start Date Expiration Date V isits Requested Visits Authorized [id number] Authorized 05/28/2021 02/27/2024 31 31 Encounter Details Date Type Department Care Team (Latest Contact Info) Description 01/20/2023 9:50 AM TRUCK TERMINAL MANAGER - 01/20/2023 11:59 PM TRUCK TERMINAL MANAGER Hospital Encounter Department of Laboratory Medicine in [place], [place] [address] [place] [phone] Mari Noguera M.D. [address] [place] [address] Multiple Myeloma Not Having Achieved Remission (HCC); Diarrhea Discharge Disposition: Home or Self Care Social [...] How often do you attend chur or buddhist services? 1 to 4 times per year 06/11/2021 Do you belong to any clubs o r organizations such as anabaptism groups, unions, fraternal or athletic groups, or [...] [facility] of Occupat ional Health - Occupational Stress [...] st Contact Info) Description 03/16/2023 10:30 AM TRUCK TERMINAL MANAGER Appointment Department of Laboratory Medicine in [address] [place] [phone] Mari Noguera M.D. [address] [place] [phone] 03/17/2023 8:40 AM TRUCK TERMINAL MANAGER Office Visit Department of Oncology in [address] [phone] Mari Noguera M.D. [address] [place] [phone] 03/17/2023 9:45 AM TRUCK TERMINAL MANAGER Infusion Department of Infusion Therapy in [place] [address] [facility] [place] [phone] Mari Noguera [place] [phone] 03/31/2023 10:10 AM TRUCK TERMINAL MANAGER Appointment Department of Laboratory Medicine in [address] [place] [address] Mari Noguera M.D. [address] [place] [phone] 04/04/2023 8:20 AM TRUCK TERMINAL MANAGER Office Visit Department of Oncology in [address] [phone] Mari Noguera M.D. [address] [place] [phone] 04/04/2023 9:00 AM TRUCK TERMINAL MANAGER Infusion Department of Infusion Therapy in [address] [phone] Mari Noguera M.D. [address] [place] [phone] 04/13/2023 10:10 AM TRUCK TERMINAL MANAGER Appointment Department of Laboratory Medicine in [address] [place] [address] Mari Noguera M.D. [address] [place] [phone] 04/14/2023 9:00 AM TRUCK TERMINAL MANAGER Infusion Department of Infusion Therapy in [address] [phone] Mari Noguera M.D. [address] [place] [phone] documented as of this encounter Procedures Procedure Name Priority Date/Time Associated Diagnosis Comments MONOCLONAL GAMMOPATHY DIAGNOSTIC, S Routine 01/20/2023 10:03 AM TRUCK TERMINAL MANAGER Multiple Myeloma Not Having Achieved Remission (HCC) Diarrhea CBC WITH DIFFERENTIAL, B Routine 01/20/2023 10:03 AM TRUCK TERMINAL MANAGER Multiple Myeloma Not Having Achieved Remission (HCC) COMPREHENSIVE METABOLIC PANEL, S/P Routine 01/20/2023 10:03 AM TRUCK TERMINAL MANAGER Multiple Myeloma Not Having Achieved Remission (HCC) documented in this encounter Results * (ABNORMAL) Monoclonal Gammopathy Diagnostic (01/20/2023 10:03 AM TRUCK TERMINAL MANAGER) Therapeutic Antibody Administered? Unspecified 01/23/2023 7:47 AM TRUCK TERMINAL MANAGER SDSC Total Protein, S 6.4 6.3 - 7.9 g/dL 01/23/2023 9:41 AM TRUCK TERMINAL MANAGER SDSC [place] Free Light Chain, S 1.45 0.3300 - 1.94 mg/dL 01/23/2023 11:12 AM TRUCK TERMINAL MANAGER SDSC Lambda Free Light Chain, S 1.41 0.5700 - 2.63 mg/dL 01/23/2023 11:12 AM TRUCK TERMINAL MANAGER SDSC [place]/Lambda FLC Ratio 1.03 0.2600 - 1.65 01/23/2023 11:12 AM TRUCK TERMINAL MANAGER SDSC Albumin 3.3(L) 3.4 - 4.7 g/dL 01/23/2023 1:40 PM TRUCK TERMINAL MANAGER SDSC Alpha-1 Globulin 0.3 0.1 - 0.3 g/dL 01/23/2023 1:40 PM TRUCK TERMINAL MANAGER SDSC Alpha-2 Globulin 1.1(H) 0.6 - 1.0 g/dL 01/23/2023 1:40 PM TRUCK TERMINAL MANAGER SDSC Beta-Globulin 1.0 0.7 - 1.2 g/dL 01/23/2023 1:40 PM TRUCK TERMINAL MANAGER SDSC Gamma-Globulin 0.8 0.6 - 1.6 g/dL 01/23/2023 1:40 PM TRUCK TERMINAL MANAGER SDSC A/G Ratio 1.05 01/23/2023 1:40 PM TRUCK TERMINAL MANAGER SDSC Impression Small abnormality in gamma fraction. See Isotype. 01/23/2023 1:40 PM TRUCK TERMINAL MANAGER SDSC Flag, M-protein Isotype Positive(A) Negative 01/24/2023 3:10 PM TRUCK TERMINAL MANAGER SDSC M-protein Isotype MALDI-TOF MS IgG lambda, monoclonal. 01/24/2023 3:10 PM TRUCK TERMINAL MANAGER SDSC Comment: ----ADDITIONAL INFORMATION---- The submitted sample was assayed by five separate immunopurifications for IgG, IgA, IgM, kappa and lambda. ??The result reflects the findings of either no monoclonal protein detected or those monoclonal immunoglobulins that were detected. This test was developed and its performance characteristics determined by [facility] in a manner consistent with CLIA requirements. This test has not been cleared or approved by the U.S. Food and Drug Administration. Blood (Blood, Venous) 01/20/2023 10:03 AM TRUCK TERMINAL MANAGER 01/23/2023 8:47 AM TRUCK TERMINAL MANAGER Narrative [facility] - 01/24/2023 3:10 PM TRUCK TERMINAL MANAGER Specimen Information: Specimen ID: [id number] Specimen Type: Blood Specimen Collection Start Date: 01/20/2023 10:03 AM Specimen Received Date: 01/23/2023 ??8:47 AM Specimen ID: [id number] Specimen Type: Blood Specimen Collection Start Date: 01/20/2023 10:03 AM Specimen Received Date: 01/23/2023 ??7:47 AM Mari Noguera M.D. LAB BLOOD ADD-ON [facility] [address] [place] [address] [facility] [address] [place] [address] [facility] [address] [place] [facility] [place] [address] * (ABNORMAL) Comprehensive Metabolic Panel (01/20/2023 10:03 AM TRUCK TERMINAL MANAGER) Potassium, P 4.2 3.6 - 5.2 mmol/L 01/20/2023 10:34 AM TRUCK TERMINAL MANAGER RDWG Sodium, P 141 135 - 145 mmol/L 01/20/2023 10:34 AM TRUCK TERMINAL MANAGER [facility] Chloride, P 104 98 - 107 mmol/L 01/20/2023 10:34 AM TRUCK TERMINAL MANAGER R[facility] Bicarbonate, P 29 22 - 29 mmol/L 01/20/2023 10:34 AM TRUCK TERMINAL MANAGER [facility] Anion Gap, P 8 7 - 15 01/20/2023 10:34 AM TRUCK TERMINAL MANAGER [facility] BUN (Blood Urea Nitrogen), P 30(H) 6 - 21 mg/dL 01/20/2023 10:34 AM TRUCK TERMINAL MANAGER RDWG Creatinine 1.25(H) 0.59 - 1.04 mg/dL 01/20/2023 10:34 AM TRUCK TERMINAL MANAGER RDWG Estimated GFR (eGFR) 45(L) >=60 mL/min/BS A 01/20/2023 10:34 AM TRUCK TERMINAL MANAGER RDWG Comment: Estimated GFR calculated using the 2020 CKD_EPI creatinine equation. Calcium, Total, P 9.5 8.8 - 10.2 mg/dL 01/20/2023 10:34 AM TRUCK TERMINAL MANAGER RDW[facility] Glucose, P 104 70 - 140 mg/dL 01/20/2023 10:34 AM TRUCK TERMINAL MANAGER RDW[facility] Protein, Total, P 6.7 6.3 - 7.9 g/dL 01/20/2023 10:34 AM TRUCK TERMINAL MANAGER R[facility] Albumin, P 4.1 3.5 - 5.0 g/dL 01/20/2023 10:34 AM TRUCK TERMINAL MANAGER RDWG Aspartate Aminotransferase (AST), P 19 8 - 43 U/L 01/20/2023 10:34 AM TRUCK TERMINAL MANAGER R[facility] Alkaline Phosphatase, P 64 35 - 104 U/L 01/20/2023 10:34 AM TRUCK TERMINAL MANAGER R[facility] Alanine Aminotransferase (ALT), P 15 7 - 45 U/L 01/20/2023 10:34 AM TRUCK TERMINAL MANAGER R[facility] Bilirubin, Total, P 0.3 0.0 - 1.2 mg/dL 01/20/2023 10:34 AM TRUCK TERMINAL MANAGER R[facility] Blood (Blood, Venous) 01/20/2023 10:03 AM TRUCK TERMINAL MANAGER 01/20/2023 10:06 AM TRUCK TERMINAL MANAGER Mari Noguera M.D. LAB BLOOD ADD-ON [facility] [address] [place] [address], [facility] [place] [address] [place], [place] [address] * (ABNORMAL) CBC with Differential, Blood (01/20/2023 10:03 AM TRUCK TERMINAL MANAGER) Hemoglobin 11.5(L) 11.6 - 15.0 g/dL 01/20/2023 10:18 AM TRUCK TERMINAL MANAGER RDWG Hematocrit 35.8 35.5 - 44.9 % 01/20/2023 10:18 AM TRUCK TERMINAL MANAGER RDWG Erythrocytes 3.56(L) 3.92 - 5.13 x10(12)/L 01/20/2023 10:18 AM TRUCK TERMINAL MANAGER RDWG MCV 100.6(H) 78.2 - 97.9 fL 01/20/2023 10:18 AM TRUCK TERMINAL MANAGER RDWG RBC Distrib Width 15.9 12.2 - 16.1 % 01/20/2023 10:18 AM TRUCK TERMINAL MANAGER RDWG Platelet Count 56(L) 157 - 371 x10(9)/L 01/20/2023 10:18 AM TRUCK TERMINAL MANAGER RDWG Leukocytes 2.8(L) 3.4 - 9.6 x10(9)/L 01/20/2023 10:18 AM TRUCK TERMINAL MANAGER RDWG Neutrophils 1.38(L) 1.56 - 6.45 x10(9)/L 01/20/2023 10:18 AM TRUCK TERMINAL MANAGER RDWG Lymphocytes 0.98 0.95 - 3.07 x10(9)/L 01/20/2023 10:18 AM TRUCK TERMINAL MANAGER RDWG Monocytes 0.34 0.26 - 0.81 x10(9)/L 01/20/2023 10:18 AM TRUCK TERMINAL MANAGER RDWG Eosinophils 0.10 0.03 - 0.48 x10(9)/L 01/20/2023 10:18 AM TRUCK TERMINAL MANAGER RDWG Basophils <0.03 0.01 - 0.08 x10(9)/L 01/20/2023 10:18 AM TRUCK TERMINAL MANAGER RDW[facility] Blood (Blood, Venous) 01/20/2023 10:03 AM TRUCK TERMINAL MANAGER 01/20/2023 10:06 AM TRUCK TERMINAL MANAGER Mari Noguera M.D. LAB BLOOD ADD-ON [facility] [address] [facility] [place] [address], [facility] RDWG [facility] [place] [address] [place] [address] documented in this encounter Visit Diagnoses Diagnosis Multiple Myeloma Not Having Achieved Remission (HCC) Diarrhea documented in this encounter Additional Health Concerns Infection Onset Date Last Indicated Resolved Time Protective Environment 06/03/2022 06/03/2022 documented as of this encounter Care Teams Interactive Media Marketing Strategist Relationship Specialty Start Date End Date Elsewhere, Pcp PCP - General Internal Medicine 04/01/22 documented as of this encounter
--- OUTSIDE RECORDS SUMMARY | 2023-03-08 08:48 | XMS_ITS | Encounter Summary ---
Author Name Unknown Organization [facility] Address [address] [place] [address] Care Team Providers Care Glass Blower Helper Name Role Phone Elsewhere, Pcp Primary Care Provider Unavailabl e Reason for Visit * Episode Based Medications (Routine) - Authorized Specialty Diagnoses / Procedures Referred By Guillermina t Referred To Contact Diagnoses Multiple Myeloma Not Having Achieved Remission (HCC) Procedures MO ONDANSETRON HCL INJECTION MO DARATUMUMAB, HYALURONIDASE MO BORTEZOMIB INJECTION 1,800 mg on Day 1, 8, 15, 22 for cycles 1 & 2, Day 1, 15 3-6, Day 1 for cycle 7 / 28 day cycles / 17 total visits Mari Noguera M.D. [address] [place] [address] [facility] Region Referral ID Status Reason Start Date Expiration Date V isits Requested Visits Authorized [id number] Authorized 05/28/2021 02/27/2024 31 31 Encounter Details Date Type Department Care Team (Late st Contact Info) Description 01/30/2023 8:00 AM BLACK STUDIES PROFESSOR Infusion Department of Infusion Therapy in [address] [phone] Mari Noguera M.D. [address] [place] [phone] Multiple Myeloma Not Having Achieved Remission (HCC) [...] week 06/11/2021 How often do you attend [facility] or restorationist services? 1 to 4 times per year 06/11/2021 Do you belong to any clubs o r organizations such as sabianism groups, unions, fraternal or athletic groups, or [...] Answer Date Recorded PHQ-2 Score 4 11/18/2021 [facility] [place] of Occupat ional [facility] - Occupational Stress Questionnaire Answer Date [...] Sign Reading Time Taken Comments Blood Pressure 135/64 01/30/2023 2:29 PM BLACK STUDIES PROFESSOR Pulse 56 01/30/2023 2:29 PM BLACK STUDIES PROFESSOR Temperature 36.4 ??C (97.5 ??F) 01/30/2023 2:29 PM CS T Respiratory Rate 18 01/30/2023 2:29 PM BLACK STUDIES PROFESSOR Oxygen Saturation 100% 01/30/2023 2:29 PM BLACK STUDIES PROFESSOR Inhaled Oxygen Concentration - - Weight - - Height - - Body Mass Index - - documented in this encounter Plan of Treatment Upcoming Encounters Date Type Department Care Team (Late st Contact Info) Description 03/16/2023 10:30 AM BLACK STUDIES PROFESSOR Appointment Department of Laboratory Medicine in [address] [phone] Mari Ngouera M.D. [address] [place] [phone] 03/17/2023 8:40 AM BLACK STUDIES PROFESSOR Office Visit Department of Oncology in [address] [phone] Mari Noguera M.D. [address] [place] [phone] 03/17/2023 9:45 AM BLACK STUDIES PROFESSOR Infusion Department of Infusion Therapy in [address] [phone] Mari Noguera M.D. [address] [place] [phone] 03/31/2023 10:10 AM BLACK STUDIES PROFESSOR Appointment Department of Laboratory Medicine in [address] [phone] Mari Noguera M.D. [address] [place] [phone] 04/04/2023 8:20 AM BLACK STUDIES PROFESSOR Office Visit Department of Oncology in [address] [phone] Mari Noguera M.D. [address] [place] [phone] 04/04/2023 9:00 AM BLACK STUDIES PROFESSOR Infusion Department of Infusion Therapy in [address] [phone] Mari Noguera M.D. [address] [place] [phone] 04/13/2023 10:10 AM BLACK STUDIES PROFESSOR Appointment Department of Laboratory Medicine in [address] [phone] Mari Noguera M.D. [address] [place] [phone] 04/14/2023 9:00 AM BLACK STUDIES PROFESSOR Infusion Department of Infusion Therapy in [address] [phone] Mari Noguera M.D. [address] [place] [phone] documented as of this encounter Visit Diagnoses Diagnosis Multiple Myeloma Not Having Achieved Remission (HCC)- Primary documented in this encounter Administered Medications Inactive Administered Medications - up to 3 most recent administrations Medication Order MAR Action Action Date Dose Rate Site bortezomib injection 2 mg (VELCADE) 2 mg (rounded from 1.9864 mg = 1.04 mg/m2 ? 1.91 m2 Treatment Plan BSA from Measured weight), subcutaneous, Once, On 01/30/23 at 1500, For 1 dose, Rotate injection site. Given 01/30/2023 3:09 PM BLACK STUDIES PROFESSOR 2 mg Left Upper Abdomen documented in this encounter Additional Health Concerns Infection Onset Date Last Indicated Resolved Time Protective Environment 06/03/2022 06/03/2022 documented as of this encounter Care Teams Glass Blower Helper Relationship Specialty Start Date End Date Elsewhere, Pcp PCP - General Internal Medicine 04/01/22 documented as of this encounter
--- OUTSIDE RECORDS SUMMARY | 2023-03-08 08:49 | XMS_ITS | Encounter Summary ---
Author Name Unknown Organization [facility] Address [address] [place] [address] Care Team Providers Care Examination Grader Name Role Phone Elsewhere, Pcp Primary Care Provider Unavailabl e Encounter Details Date Type Department Care Team (Latest Contact Info) Description 01/13/2023 8:52 AM DISASTER RECOVERY CONSULTANT - 01/13/2023 11:59 PM [facility] Hospital Encounter Department of Laboratory Medicine in [place], [place] [address] [place] [address] Mari Noguera M.D. [address] [place] [phone] Multiple Myeloma Not Having Achieved [...] How often do you attend chur or mormonism services? 1 to 4 times per year 06/11/2021 Do you belong to any clubs o r organizations such as yazdanism groups, unions, fraternal or athletic groups, or [...] Answer Date Recorded PHQ-2 Score 4 11/18/2021 [facility] of Occupat ional Health - Occupational [...] place to sleep or slept in a fpc (including now)? No 06/11/2021 Nutrition Answer Date [...] st Contact Info) Description 03/16/2023 10:30 AM DISASTER RECOVERY CONSULTANT Appointment Department of Laboratory Medicine in [address] [address] Mari Noguera M.D. [address] [place] [phone] 03/17/2023 8:40 AM DISASTER RECOVERY CONSULTANT Office Visit Department of Oncology in [address] [phone] Mari Noguera M.D. [address] [place] [phone] 03/17/2023 9:45 AM DISASTER RECOVERY CONSULTANT Infusion Department of Infusion Therapy in [address] [phone] Mari Noguera M.D. [address] [place] [phone] 03/31/2023 10:10 AM DISASTER RECOVERY CONSULTANT Appointment Department of Laboratory Medicine in [address] [phone] Mari Noguera M.D. [address] [place] [phone] 04/04/2023 8:20 AM DISASTER RECOVERY CONSULTANT Office Visit Department of Oncology in [address] [phone] Mari Noguera M.D. [address] [place] [phone] 04/04/2023 9:00 AM DISASTER RECOVERY CONSULTANT Infusion Department of Infusion Therapy in [address] [phone] Mari Noguera M.D. [address] [place] [address] [phone] 04/13/2023 10:10 AM DISASTER RECOVERY CONSULTANT Appointment Department of Laboratory Medicine in [address] [phone] Mari Noguera M.D. [address] [place] [phone] 04/14/2023 9:00 AM DISASTER RECOVERY CONSULTANT Infusion Department of Infusion Therapy in [address] [phone] Mari Noguera M.D. [address] [place] [phone] documented as of this encounter Procedures Procedure Name Priority Date/Time Associated Diagnosis Comments GI PATHOGEN PANEL, PCR, F Routine 01/18/2023 3:00 PM DISASTER RECOVERY CONSULTANT Multiple Myeloma Not Having Achieved Remission (HCC) Diarrhea documented in this encounter Results * GI Pathogen Panel, PCR, Feces (01/18/2023 3:00 PM DISASTER RECOVERY CONSULTANT) Specimen Source STOOL 1:03 PM DISASTER RECOVERY CONSULTANT RDWG Campylobacter species Negative Negative 01/20/2023 1:03 PM DISASTER RECOVERY CONSULTANT RDWG C. difficile toxin Negative Negative 2022 1:03 PM DISASTER RECOVERY CONSULTANT [facility] Plesiomonas shigelloides Negative Negative 01/20/2023 1:03 PM DISASTER RECOVERY CONSULTANT RDW[facility] Salmonella species Negative Negative 2022 1:03 PM DISASTER RECOVERY CONSULTANT [facility] Vibrio species Negative Negative 01/20/2023 1:03 PM DISASTER RECOVERY CONSULTANT [facility] Vibrio cholerae Negative Negative 1:03 PM DISASTER RECOVERY CONSULTANT RDW[facility] Yersinia species Negative Negative 01/21/20 1:03 PM DISASTER RECOVERY CONSULTANT RDWG Enteroaggregative E. coli (EAEC) Negative Negative 01/20/2023 1:03 PM DISASTER RECOVERY CONSULTANT RDWG Enteropathogenic E. coli (EPEC) Negative Negative 01/20/2023 1:03 PM DISASTER RECOVERY CONSULTANT RDWG Enterotoxigenic E. coli (ETEC) Negative Negative 01/20/2023 1:03 PM DISASTER RECOVERY CONSULTANT RDW[facility] Shiga toxin producing E. coli Negative Negative 01/20/2023 1:03 PM DISASTER RECOVERY CONSULTANT R[facility] Shigella/Enteroinvas carlos E. coli Negative Negative 01/20/2023 1:03 PM DISASTER RECOVERY CONSULTANT R[facility] Cryptosporidium species Negative Negative 01/20/2023 1:03 PM DISASTER RECOVERY CONSULTANT R[facility] Cyclospora cayetanensis Negative Negative 01/20/2023 1:03 PM DISASTER RECOVERY CONSULTANT R[facility] Entamoeba histolytica Negative Negative 01/20/2023 1:03 PM DISASTER RECOVERY CONSULTANT [facility] Giardia Negative Negative 01/20/2023 1:03 PM DISASTER RECOVERY CONSULTANT [facility] Adenovirus F40/41 Negative Negative 023 1:03 PM DISASTER RECOVERY CONSULTANT [facility] Astrovirus Negative Negative 01/20/2023 1:03 PM DISASTER RECOVERY CONSULTANT R[facility] Norovirus GI/GII Negative Negative 01/21/20 1:03 PM DISASTER RECOVERY CONSULTANT R[facility] Rotavirus Ag, F Negative Negative 1:03 PM DISASTER RECOVERY CONSULTANT [facility] Sapovirus Negative Negative 01/20/2023 1:03 PM DISASTER RECOVERY CONSULTANT R[facility] Comment: ----ADDITIONAL INFORMATION---- This assay is performed using the FDA-cleared FilmArray GI Panel ([employer] Stool (Stool) 01/18/2023 3:0 0 PM DISASTER RECOVERY CONSULTANT 01/20/2023 9:53 AM DISASTER RECOVERY CONSULTANT Mari Noguera M.D. LAB MICROBIOLOGY - G ENERAL ORDERABLES [facility] [address] [place] [address], [facility] [address] [place] [phone] documented in this encounter Visit Diagnoses Diagnosis Multiple Myeloma Not Having Achieved Remission (HCC) Diarrhea documented in this encounter Additional Health Concerns Infection Onset Date Last Indicated Resolved Time Protective Environment 06/03/2022 06/03/2022 documented as of this encounter Care Teams Examination Grader Relationship Specialty Start Date End Date Elsewhere, Pcp PCP - General Internal Medicine 04/01/22 documented as of this encounter
--- OUTSIDE RECORDS SUMMARY | 2023-03-08 08:49 | XMS_ITS | Encounter Summary ---
Author Name Unknown Organization [facility] Address [address] [place] [address] Care Team Providers Care Municipal Engineer Name Role Phone Elsewhere, Pcp Primary Care Provider Unavailabl e Encounter Details Date Type Department Care Team (Latest Contact Info) Description 12/29/2022 1:21 PM CDT - 12/29/2022 11:59 PM CDT Hospital Encounter Department of Laboratory Medicine in [place], [place] [address] [place] [phone] Mari Noguera M.D. [address] [place] [phone] Multiple Myeloma Not Having Achieved Remission (HCC) [...] How often do you attend chur or anabaptism services? 1 to 4 times per year [...] Answer Date Recorded PHQ-2 Score 4 11/18/2021 [facility] [place] of Occupat ional Health - Occupational Stress [...] by mouth daily. 90 tablet 3 03/28/2022 atenoloL (TENORMIN) 50 mg tablet Take 1.5 tablets (75 mg total) by mouth daily. 45 tablet 11 01/07/2022 bortezomib (VELCADE) 3.5 mg injection Infuse 2.5 [...] on days 1 through 21 of cycle. 21 capsule 0 12/16/2022 01/13/2023 acyclovir (ZOVIRAX) 200 mg capsule Take 2 [...] st Contact Info) Description 03/16/2023 10:30 AM UNIT CONTROLLER Appointment Department of Laboratory Medicine in [address] [phone] Mari Noguera M.D. [address] [place] [phone] 03/17/2023 8:40 AM UNIT CONTROLLER Office Visit Department of Oncology in [address] [phone] Mari Noguera M.D. [address] [place] [phone] 03/17/2023 9:45 AM UNIT CONTROLLER Infusion Department of Infusion Therapy in [address] [phone] Mari Noguera M.D. [address] [place] [phone] 03/31/2023 10:10 AM UNIT CONTROLLER Appointment Department of Laboratory Medicine in [address] [place] [address] Mari Noguera M.D. [address] [place] [phone] 04/04/2023 8:20 AM UNIT CONTROLLER Office Visit Department of Oncology in [address] [phone] Mari Noguera M.D. [address] [place] [phone] 04/04/2023 9:00 AM UNIT CONTROLLER Infusion Department of Infusion Therapy in [address] [phone] Mari Noguera M.D. [address] [place] [phone] 04/13/2023 10:10 AM UNIT CONTROLLER Appointment Department of Laboratory Medicine in [address] [place] [phone] Mari Noguera M.D. [address] [place] [phone] 04/14/2023 9:00 AM UNIT CONTROLLER Infusion Department of Infusion Therapy in [address] [phone] Mari Noguera M.D. [address] [place] [phone] documented as of this encounter Procedures Procedure Name Priority Date/Time Associated Diagnosis Comments CBC WITH DIFFERENTIAL, B Routine 12/29/2022 1:31 PM CDT Multiple Myeloma Not Having Achieved Remission (HCC) documented in this encounter Results * (ABNORMAL) CBC with Differential, Blood (12/29/2022 1:31 PM CDT) Hemoglobin 12.1 11.6 - 15.0 g/dL 12/29/2022 2:39 PM CDT FB60 Hematocrit 38.1 35.5 - 44.9 % 12/29/2022 2:39 PM CDT FB60 Erythrocytes 3.87(L) 3.92 - 5.13 x10(12)/L 12/29/2022 2:39 PM CDT FB60 MCV 98.4(H) 78.2 - 97.9 fL 12/29/2022 2:39 PM CDT FB60 RBC Distrib Width 15.3 12.2 - 16.1 % 12/29/2022 2:39 PM CDT FB60 Platelet Count 85(L) 157 - 371 x10(9)/L 12/29/2022 2:39 PM CDT FB60 Leukocytes 2.7(L) 3.4 - 9.6 x10(9)/L 12/29/2022 2:39 PM CDT FB60 Neutrophils 1.19(L) 1.56 - 6.45 x10(9)/L 12/29/2022 2:39 PM CDT FB60 Lymphocytes 0.97 0.95 - 3.07 x10(9)/L 12/29/2022 2:39 PM CDT FB60 Monocytes 0.47 0.26 - 0.81 x10(9)/L 12/29/2022 2:39 PM CDT FB60 Eosinophils 0.08 0.03 - 0.48 x10(9)/L 12/29/2022 2:39 PM CDT FB60 Basophils <0.04 0.01 - 0.08 x10(9)/L 12/29/2022 2:39 PM CDT FB60 Blood (Blood, Venous) 12/29/2022 1:31 PM CDT 12/29/2022 1:31 PM CDT Mari Noguera M.D. LAB BLOOD ADD-ON [facility] [address] [facility] [place] [place] [address], [facility] FB60 [facility] in [place] [address] [place] [address] documented in this encounter Visit Diagnoses Diagnosis Multiple Myeloma Not Having Achieved Remission (HCC) documented in this encounter Additional Health Concerns Infection Onset Date Last Indicated Resolved Time Protective Environment 06/03/2022 06/03/2022 documented as of this encounter Care Teams Municipal Engineer Relationship Specialty Start Date End Date Elsewhere, Pcp PCP - General Internal Medicine 04/01/22 documented as of this encounter
--- OUTSIDE RECORDS SUMMARY | 2023-03-08 08:49 | XMS_ITS | Encounter Summary ---
Author Name Unknown Organization [facility] Address [address] [place] [address] Care Team Providers Care Warehouse Representative Name Role Phone Elsewhere, Pcp Primary Care Provider Unavailabl e Reason for Visit * Reason Onset Date Comments Nurse Assessment 12/27/2022 Encounter Details Date Type Department Care Team (Latest Contact Info) Description 12/27/2022 Clinical Communication Department of Oncology in [place], [place] [address] [place] [phone] Mari Noguera M.D. [address] [place] [phone] Nurse Assessment Social History Tobacco Use Types Packs/Day Years [...] week 06/11/2021 How often do you attend [facility] or taoist services? 1 to 4 times per year 06/11/2021 Do you belong to any clubs o r organizations such as religion groups, unions, fraternal or athletic groups, or [...] Answer Date Recorded PHQ-2 Score 4 11/18/2021 [facility] of Occupat ional Health - Occupational [...] st Contact Info) Description 03/16/2023 10:30 AM RADIO REPAIRER DOMESTIC Appointment Department of Laboratory Medicine in [address] [phone] Mari Noguera M.D. [address] [place] [phone] 03/17/2023 8:40 AM RADIO REPAIRER DOMESTIC Office Visit Department of Oncology in [place] [address] [place] [phone] Mari Noguera M.D. [address] [place] [phone] 03/17/2023 9:45 AM RADIO REPAIRER DOMESTIC Infusion Department of Infusion Therapy in [address] [place] [phone] Mari Noguera M.D. [address] [place] [phone] 03/31/2023 10:10 AM RADIO REPAIRER DOMESTIC Appointment Department of Laboratory Medicine in [address] [phone] Mari Noguera M.D. [address] [place] [phone] 04/04/2023 8:20 AM RADIO REPAIRER DOMESTIC Office Visit Department of Oncology in [address] [phone] Mari Noguera M.D. [address] [place] [phone] 04/04/2023 9:00 AM RADIO REPAIRER DOMESTIC Infusion Department of Infusion Therapy in [address] [phone] Mari Noguera M.D. [address] [place] [phone] 04/13/2023 10:10 AM RADIO REPAIRER DOMESTIC Appointment Department of Laboratory Medicine in [address] [phone] Mari Noguera M.D. [address] [place] [phone] 04/14/2023 9:00 AM RADIO REPAIRER DOMESTIC Infusion Department of Infusion Therapy in [place], [place] [address] [place] [phone] Mari Noguera M.D. [address] [place] [phone] documented as of this encounter Visit Diagnoses Not on filedocumented in this encounter Additional Health Concerns Infection Onset Date Last Indicated Resolved Time Protective Environment 06/03/2022 06/03/2022 documented as of this encounter Care Teams Warehouse Representative Relationship Specialty Start Date End Date Elsewhere, Pcp PCP - General Internal Medicine 04/01/22 documented as of this encounter
--- OUTSIDE RECORDS SUMMARY | 2023-03-08 08:49 | XMS_ITS | Encounter Summary ---
Author Name Unknown Organization [facility] Address [address] [place] [address] Care Team Providers Care Pharmacy Clerk Name Role Phone Elsewhere, Pcp Primary Care Provider Unavailabl e Reason for Visit * Episode Based Medications (Routine) - Authorized Specialty Diagnoses / Procedures Referred By Guillermina t Referred To Contact Diagnoses Multiple Myeloma Not Having Achieved Remission (HCC) Procedures DC ONDANSETRON HCL INJECTION DC DARATUMUMAB, HYALURONIDASE DC BORTEZOMIB INJECTION 1,800 mg on Day 1, 8, 15, 22 for cycles 1 & 2, Day 1, 15 3-6, Day 1 for cycle 7 / 28 day cycles / 17 total visits Mari Noguera M.D. [address] [place] [phone] [facility] Region Referral ID Status Reason Start Date Expiration Date V isits Requested Visits Authorized [id number] Authorized 05/28/2021 02/27/2024 31 31 Encounter Details Date Type Department Care Team (Late st Contact Info) Description 12/30/2022 9:15 AM CDT Infusion Department of Infusion Therapy in [address] [phone] Mari Noguera M.D. [address] [place] [phone] Multiple Myeloma Not Having Achieved Remission (HCC) (Primary Dx); Transplant Stem Cell (HCC); Multiple Myeloma In Remission (HCC) Social History Tobacco Use Types [...] How often do you attend chur or baptist services? 1 to 4 times per year 06/11/2021 Do you belong to any clubs o r organizations such as evangelical groups, unions, fraternal or athletic groups, or [...] Answer Date Recorded PHQ-2 Score 4 11/18/2021 [facility] of Occupat ional [facility] - Occupational Stress Questionnaire Answer Date [...] place to sleep or slept in a snf (including now)? No 06/11/2021 Nutrition Answer Date [...] Sign Reading Time Taken Comments Blood Pressure 118/54 12/30/2022 8:59 AM CDT Pulse 55 12/30/2022 8:59 AM CDT Temperature 36.3 ??C (97.3 ??F) 12/30/2022 8:59 AM CD T Respiratory Rate 18 12/30/2022 8:59 AM CDT Oxygen Saturation 98% 12/30/2022 8:59 AM CDT Inhaled Oxygen Concentration - - Weight - - Height - - Body Mass Index - - documented in this encounter Plan of Treatment Upcoming Encounters Date Type Department Care Team (Late st Contact Info) Description 03/16/2023 10:30 AM FOIL STAMP OPERATOR Appointment Department of Laboratory Medicine in [address] [phone] Mari Noguera M.D. [address] [place] [phone] 03/17/2023 8:40 AM FOIL STAMP OPERATOR Office Visit Department of Oncology in [address] [phone] Mari Noguera M.D. [address] [place] [phone] 03/17/2023 9:45 AM FOIL STAMP OPERATOR Infusion Department of Infusion Therapy in [address] [phone] Mari Noguera M.D. [address] [place] [phone] 03/31/2023 10:10 AM FOIL STAMP OPERATOR Appointment Department of Laboratory Medicine in [address] [phone] Mari Noguera M.D. [address] [place] [phone] 04/04/2023 8:20 AM FOIL STAMP OPERATOR Office Visit Department of Oncology in [address] [phone] Mari Noguera M.D. [address] [place] [phone] 04/04/2023 9:00 AM FOIL STAMP OPERATOR Infusion Department of Infusion Therapy in [address] [phone] Mari Noguera M.D. [address] [place] [phone] 04/13/2023 10:10 AM FOIL STAMP OPERATOR Appointment Department of Laboratory Medicine in [address] [phone] Mari Noguera M.D. [address] [place] [phone] 04/14/2023 9:00 AM FOIL STAMP OPERATOR Infusion Department of Infusion Therapy in [address] [phone] Mari Noguera M.D. [address] [place] [phone] documented as of this encounter Visit Diagnoses Diagnosis Multiple Myeloma Not Having Achieved Remission (HCC)- Primary Transplant Stem Cell (HCC) Multiple Myeloma In Remission (HCC) documented in this encounter Administered Medications Inactive Administered Medications - up to 3 most recent administrations Medication Order MAR Action Action Date Dose Rate Site bortezomib injection 2.5 mg (VELCADE) 2.5 mg (rounded from 2.483 mg = 1.3 mg/m2 ? 1.91 m2 Treatment Plan BSA from Measured weight), subcutaneous, Once, On Mon12/30/22 at 0930, For 1 dose, Rotate injection site. Given 12/30/2022 9:32 AM CDT 2.5 mg Right Upper Abdomen documented in this encounter Additional Health Concerns Infection Onset Date Last Indicated Resolved Time Protective Environment 06/03/2022 06/03/2022 documented as of this encounter Care Teams Pharmacy Clerk Relationship Specialty Start Date End Date Elsewhere, Pcp PCP - General Internal Medicine 04/01/22 documented as of this encounter
--- OUTSIDE RECORDS SUMMARY | 2023-03-08 08:49 | XMS_ITS | Encounter Summary ---
Author Name Unknown Organization [facility] Address [address] [place] [address] Care Team Providers Care Change Management Expert Name Role Phone Elsewhere, Pcp Primary Care Provider Unavailabl e Reason for Referral * Outpatient (Routine) Specialty Diagnoses / Procedures Referred By Guillermina zamora Referred To Contact Hematology Oncology Mari Noguera M.D. [address] [place] [phone] [facility] Region Referral ID Status Reason Start Date Expiration Date Visits Re quested Visits Authorized TAIN ROLLER ASSEMBLER Encounter Details Date Type Department Care Team (Late st Contact Info) Description 01/18/2023 Orders Only Department of Oncology in [address] [phone] Mari Noguera M.D. [address] [place] [phone] Multiple Myeloma Not Having Achieved [...] week 06/11/2021 How often do you attend [facility] or sabianism services? 1 to 4 times per year 06/11/2021 Do you belong to any clubs o r organizations such as sikh groups, unions, fraternal or athletic groups, or [...] Answer Date Recorded PHQ-2 Score 4 11/18/2021 [facility] of Occupat ional Health - [...] st Contact Info) Description 03/16/2023 10:30 AM FOUNTAIN ROLLER ASSEMBLER Appointment Department of Laboratory Medicine in [address] [place] [phone] Mari Noguera M.D. [address] [place] [phone] 03/17/2023 8:40 AM FOUNTAIN ROLLER ASSEMBLER Office Visit Department of Oncology in [address] [phone] Mari Noguera M.D. [address] [place] [phone] 03/17/2023 9:45 AM FOUNTAIN ROLLER ASSEMBLER Infusion Department of Infusion Therapy in [address] [phone] Mari Noguera M.D. [address] [place] [phone] 03/31/2023 10:10 AM FOUNTAIN ROLLER ASSEMBLER Appointment Department of Laboratory Medicine in [address] [place] [phone] Mari Noguera M.D. [address] [place] [phone] 04/04/2023 8:20 AM FOUNTAIN ROLLER ASSEMBLER Office Visit Department of Oncology in [address] [phone] Mari Noguera M.D. [address] [place] [phone] 04/04/2023 9:00 AM FOUNTAIN ROLLER ASSEMBLER Infusion Department of Infusion Therapy in [address] [phone] Mari Noguera M.D. [address] [place] [phone] 04/13/2023 10:10 AM FOUNTAIN ROLLER ASSEMBLER Appointment Department of Laboratory Medicine in [place] [address] [place] [phone] Mari Noguera M.D. [address] [place] [phone] 04/14/2023 9:00 AM FOUNTAIN ROLLER ASSEMBLER Infusion Department of Infusion Therapy in [address] [phone] Mari Noguera M.D. [address] [place] [phone] Scheduled Referrals Name Type Priority Associated Diagnoses Order Schedule Hematology office visit (clinic) [facility] Region; Pre-Chemo Outpatient Referral Routine Multiple Myeloma Not Having Achieved Remission (HCC) Expected: 03/03/2023, Expires: 03/03/2024 documented as of this encounter Results * (ABNORMAL) Comprehensive Metabolic Panel (03/02/2023 10:56 AM FOUNTAIN ROLLER ASSEMBLER) Potassium, P 3.7 3.6 - 5.2 mmol/L 03/02/2023 1:54 PM FOUNTAIN ROLLER ASSEMBLER OWAT Sodium, P 141 135 - 145 mmol/L 03/02/2023 1:54 PM FOUNTAIN ROLLER ASSEMBLER OWAT Chloride, P 100 98 - 107 mmol/L 03/02/2023 1:54 PM FOUNTAIN ROLLER ASSEMBLER OWAT Bicarbonate, P 27 22 - 29 mmol/L 03/02/2023 1:54 PM FOUNTAIN ROLLER ASSEMBLER OWAT Anion Gap, P 14 7 - 15 03/02/2023 1:54 PM FOUNTAIN ROLLER ASSEMBLER OWAT BUN (Blood Urea Nitrogen), P 36(H) 6 - 21 mg/dL 03/02/2023 1:54 PM FOUNTAIN ROLLER ASSEMBLER OWAT Creatinine 1.53(H) 0.59 - 1.04 mg/dL 03/02/2023 1:54 PM FOUNTAIN ROLLER ASSEMBLER OWAT Estimated GFR (eGFR) 35(L) >=60 mL/min/BS A 03/02/2023 1:54 PM FOUNTAIN ROLLER ASSEMBLER OWAT Comment: Estimated GFR calculated using the 2020 CKD_EPI creatinine equation. Calcium, Total, P 9.8 8.8 - 10.2 mg/dL 03/02/2023 1:54 PM FOUNTAIN ROLLER ASSEMBLER OWAT Glucose, P 163(H) 70 - 140 mg/dL 03/02/2023 1:54 PM FOUNTAIN ROLLER ASSEMBLER OWAT Protein, Total, P 7.1 6.3 - 7.9 g/dL 03/02/2023 1:54 PM FOUNTAIN ROLLER ASSEMBLER OWAT Albumin, P 4.4 3.5 - 5.0 g/dL 03/02/2023 1:54 PM FOUNTAIN ROLLER ASSEMBLER OWAT Aspartate Aminotransferase (AST), P 30 8 - 43 U/L 03/02/2023 1:54 PM FOUNTAIN ROLLER ASSEMBLER OWAT Alkaline Phosphatase, P 65 35 - 104 U/L 03/02/2023 1:54 PM FOUNTAIN ROLLER ASSEMBLER OWAT Alanine Aminotransferase (ALT), P 31 7 - 45 U/L 03/02/2023 1:54 PM FOUNTAIN ROLLER ASSEMBLER OWAT Bilirubin, Total, P 0.3 0.0 - 1.2 mg/dL 03/02/2023 1:54 PM FOUNTAIN ROLLER ASSEMBLER OWAT Blood (Blood, Venous) 03/02/2023 10:56 AM FOUNTAIN ROLLER ASSEMBLER 03/02/2023 1:14 PM FOUNTAIN ROLLER ASSEMBLER Mari Noguera M.D. LAB BLOOD ADD-ON [facility] [address] [place] [address], [facility] OWAT [facility] [place] [address] [place] [address] * (ABNORMAL) CBC with Differential, Blood (03/02/2023 10:56 AM FOUNTAIN ROLLER ASSEMBLER) Hemoglobin 11.5(L) 11.6 - 15.0 g/dL 03/02/2023 11:08 AM FOUNTAIN ROLLER ASSEMBLER FB60 Hematocrit 35.3(L) 35.5 - 44.9 % 03/02/2023 11:08 AM FOUNTAIN ROLLER ASSEMBLER FB60 Erythrocytes 3.44(L) 3.92 - 5.13 x10(12)/L 03/02/2023 11:08 AM FOUNTAIN ROLLER ASSEMBLER FB60 MCV 102.6(H) 78.2 - 97.9 fL 03/02/2023 11:08 AM FOUNTAIN ROLLER ASSEMBLER FB60 RBC Distrib Width 16.1 12.2 - 16.1 % 03/02/2023 11:08 AM FOUNTAIN ROLLER ASSEMBLER FB60 Platelet Count 45(L) 157 - 371 x10(9)/L 03/02/2023 11:08 AM FOUNTAIN ROLLER ASSEMBLER FB60 Leukocytes 2.3(L) 3.4 - 9.6 x10(9)/L 03/02/2023 11:08 AM FOUNTAIN ROLLER ASSEMBLER FB60 Neutrophils 0.90(L) 1.56 - 6.45 x10(9)/L 03/02/2023 11:08 AM FOUNTAIN ROLLER ASSEMBLER FB60 Lymphocytes 1.20 0.95 - 3.07 x10(9)/L 03/02/2023 11:08 AM FOUNTAIN ROLLER ASSEMBLER FB60 Monocytes 0.12(L) 0.26 - 0.81 x10(9)/L 03/02/2023 11:08 AM FOUNTAIN ROLLER ASSEMBLER FB60 Eosinophils 0.05 0.03 - 0.48 x10(9)/L 03/02/2023 11:08 AM FOUNTAIN ROLLER ASSEMBLER FB60 Basophils <0.04 0.01 - 0.08 x10(9)/L 03/02/2023 11:08 AM FOUNTAIN ROLLER ASSEMBLER FB60 Blood (Blood, Venous) 03/02/2023 10:56 AM FOUNTAIN ROLLER ASSEMBLER 03/02/2023 10:56 AM FOUNTAIN ROLLER ASSEMBLER Mari Noguera M.D. LAB BLOOD ADD-ON [facility] [address] [place] [address], [facility] FB60 [facility] [place] [address] [place] [address] * (ABNORMAL) CBC with Differential, Blood (02/09/2023 2:36 PM FOUNTAIN ROLLER ASSEMBLER) Hemoglobin 11.4(L) 11.6 - 15.0 g/dL 02/09/2023 3:36 PM FOUNTAIN ROLLER ASSEMBLER OWAT Hematocrit 34.9(L) 35.5 - 44.9 % 02/09/2023 3:36 PM FOUNTAIN ROLLER ASSEMBLER OWAT Erythrocytes 3.43(L) 3.92 - 5.13 x10(12)/L 02/09/2023 3:36 PM FOUNTAIN ROLLER ASSEMBLER OWAT MCV 101.7(H) 78.2 - 97.9 fL 02/09/2023 3:36 PM FOUNTAIN ROLLER ASSEMBLER OWAT RBC Distrib Width 16.0 12.2 - 16.1 % 02/09/2023 3:36 PM FOUNTAIN ROLLER ASSEMBLER OWAT Platelet Count 53(L) 157 - 371 x10(9)/L 02/09/2023 3:36 PM FOUNTAIN ROLLER ASSEMBLER OWAT Leukocytes 5.0 3.4 - 9.6 x10(9)/L 02/09/2023 3:36 PM FOUNTAIN ROLLER ASSEMBLER OWAT Neutrophils 3.51 1.56 - 6.45 x10(9)/L 02/09/2023 3:36 PM FOUNTAIN ROLLER ASSEMBLER OWAT Lymphocytes 1.03 0.95 - 3.07 x10(9)/L 02/09/2023 3:36 PM FOUNTAIN ROLLER ASSEMBLER OWAT Monocytes 0.37 0.26 - 0.81 x10(9)/L 02/09/2023 3:36 PM FOUNTAIN ROLLER ASSEMBLER OWAT Eosinophils 0.11 0.03 - 0.48 x10(9)/L 02/09/2023 3:36 PM FOUNTAIN ROLLER ASSEMBLER OWAT Basophils <0.03 0.01 - 0.08 x10(9)/L 02/09/2023 3:36 PM FOUNTAIN ROLLER ASSEMBLER OWAT Blood (Blood, Venous) 02/09/2023 2:36 PM FOUNTAIN ROLLER ASSEMBLER 02/09/2023 2:36 PM FOUNTAIN ROLLER ASSEMBLER Mari Noguera M.D. LAB BLOOD ADD-ON [facility] [address] [place] [address], [place] OWAT [facility] [address] [place] [address] * (ABNORMAL) Immunoglobulins (IgG, IgA, and IgM) (02/09/2023 2:36 PM FOUNTAIN ROLLER ASSEMBLER) Pathologist [facility] Immunoglobulin A (IgA), S 41(L) 61 - 356 mg/dL 02/10/2023 9:03 AM FOUNTAIN ROLLER ASSEMBLER [facility] Immunoglobulin M (IgM), S 19(L) 37 - 286 mg/dL 02/10/2023 9:03 AM FOUNTAIN ROLLER ASSEMBLER [facility] Immunoglobulin G (IgG), S 883 767 - 1590 mg/dL 02/10/2023 9:03 AM FOUNTAIN ROLLER ASSEMBLER [facility] Blood (Blood, Venous) 02/09/2023 2:36 PM FOUNTAIN ROLLER ASSEMBLER 02/10/2023 6:11 AM FOUNTAIN ROLLER ASSEMBLER Mari Noguera M.D. LAB BLOOD ADD-ON [facility] [address] [place] [address] [facility] [address] [place] [address] documented in this encounter Visit Diagnoses Diagnosis Multiple Myeloma Not Having Achieved Remission (HCC)- Primary documented in this encounter Additional Health Concerns Infection Onset Date Last Indicated Resolved Time Protective Environment 06/03/2022 06/03/2022 documented as of this encounter Care Teams Change Management Expert Relationship Specialty Start Date End Date Elsewhere, Pcp PCP - General Internal Medicine 04/01/22 documented as of this encounter
--- OUTSIDE RECORDS SUMMARY | 2023-03-08 08:49 | XMS_ITS | Encounter Summary ---
Author Name Unknown Organization [facility] Address [address] [place] [address] Care Team Providers Care Tie Puller Name Role Phone Elsewhere, Pcp Primary Care Provider Unavailabl e Reason for Visit * Episode Based Medications (Routine) - Authorized Specialty Diagnoses / Procedures Referred By Guillermina zamora Referred To Contact Diagnoses Multiple Myeloma Not Having Achieved Remission (HCC) Procedures ND ONDANSETRON HCL INJECTION ND DARATUMUMAB, HYALURONIDASE ND BORTEZOMIB INJECTION 1,800 mg on Day 1, 8, 15, 22 for cycles 1 & 2, Day 1, 15 3-6, Day 1 for cycle 7 / 28 day cycles / 17 total visits Mari Noguera M.D. [address] [place] [address] [facility] Region Referral ID Status Reason Start Date Expiration Date V isits Requested Visits Authorized [id number] Authorized 05/28/2021 02/27/2024 31 31 Encounter Details Date Type Department Care Team (Latest Contact Info) Description 12/29/2022 9:20 AM CDT - 12/29/2022 1:20 PM CDT Hospital Encounter Department of Laboratory Medicine in [place], [place] [address] [facility] [place] [address] Mari Noguera M.D. [address] [place] [address] Multiple Myeloma Not Having Achieved [...] How often do you attend [facility] or adventist services? 1 to 4 times [...] Answer Date Recorded PHQ-2 Score 4 11/18/2021 [facility] - Occupational Stress [...] st Contact Info) Description 03/16/2023 10:30 AM QUALITY CONTROL PROJECTIONIST Appointment Department of Laboratory Medicine in [address] [place] [phone] Mari Noguera M.D. [address] [place] [address] [place] [phone] 03/17/2023 8:40 AM QUALITY CONTROL PROJECTIONIST Office Visit Department of Oncology in [address] [place] [address] Mari Noguera [place]. [place] [address] 03/17/2023 9:45 AM QUALITY CONTROL PROJECTIONIST Infusion Department of Infusion Therapy in [address] [place] [address] Mari Noguera M.D. [address] [place] [phone] 03/31/2023 10:10 AM QUALITY CONTROL PROJECTIONIST Appointment Department of Laboratory Medicine in [address] [phone] Mari Noguera M.D. [address] [place] [phone] 04/04/2023 8:20 AM QUALITY CONTROL PROJECTIONIST Office Visit Department of Oncology in [address] [place] [address] Mari Noguera M.D. [address] [place] [phone] 04/04/2023 9:00 AM QUALITY CONTROL PROJECTIONIST Infusion Department of Infusion Therapy in [address] [phone] Mari Noguera M.D. [address] [place] [phone] 04/13/2023 10:10 AM QUALITY CONTROL PROJECTIONIST Appointment Department of Laboratory Medicine in [address] [phone] Mari Noguera M.D. [address] [place] [phone] 04/14/2023 9:00 AM QUALITY CONTROL PROJECTIONIST Infusion Department of Infusion Therapy in [place], [place] [address] [place] [address] Mari Noguera M.D. [address] [place] [phone] documented as of this encounter Procedures Procedure Name Priority Date/Time Associated Diagnosis Comments IMMUNOGLOBULINS (IGG, IGA, AND IGM), S Routine 12/29/2022 9:33 AM CDT Multiple Myeloma Not Having Achieved Remission (HCC) documented in this encounter Results * (ABNORMAL) Immunoglobulins (IgG, IgA, and IgM) (12/29/2022 9:33 AM CDT) Immunoglobulin A (IgA), S 44(L) 61 - 356 mg/dL 12/30/2022 7:28 AM CDT [facility] Immunoglobulin M (IgM), S 20(L) 37 - 286 mg/dL 12/30/2022 7:28 AM CDT [facility] Immunoglobulin G (IgG), S 834 767 - 1590 mg/dL 12/30/2022 7:29 AM [facility]T [facility] Blood (Blood, Venous) 12/29/2022 9:33 AM CDT 12/30/2022 6:12 AM CDT Mari Noguera M.D. LAB BLOOD ADD-ON [facility] [address] [place] [address] [facility] [address] [place] [address] documented in this encounter Visit Diagnoses Diagnosis Multiple Myeloma Not Having Achieved Remission (HCC) documented in this encounter Additional Health Concerns Infection Onset Date Last Indicated Resolved Time Protective Environment 06/03/2022 06/03/2022 documented as of this encounter Care Teams Tie Puller Relationship Specialty Start Date End Date Elsewhere, Pcp PCP - General Internal Medicine 2/3/23 documented as of this encounter
--- OUTSIDE RECORDS SUMMARY | 2023-03-08 08:49 | XMS_ITS | Encounter Summary ---
Author Name Unknown Organization [facility] Address [address] [place] [address] Care Team Providers Care Supervisor Press Room Name Role Phone Elsewhere, Pcp Primary Care Provider Unavailabl e Reason for Visit * Reason Comments Follow-up * Episode Based Medications (Routine) - Authorized Specialty Diagnoses / Procedures Referred By Guillermina t Referred To Contact Diagnoses Multiple Myeloma Not Having Achieved Remission (HCC) Procedures CT ONDANSETRON HCL INJECTION CT DARATUMUMAB, HYALURONIDASE CT BORTEZOMIB INJECTION 1,800 mg on Day 1, 8, 15, 22 for cycles 1 & 2, Day 1, 15 3-6, Day 1 for cycle 7 / 28 day cycles / 17 total visits Mari Noguera M.D. [address] [place] [address] [facility] Region Referral ID Status Reason Start Date Expiration Date V isits Requested Visits Authorized [id number] Authorized 05/28/2021 02/27/2024 31 31 Encounter Details Date Type Department Care Team (Late st Contact Info) Description 01/13/2023 8:40 AM POWER LINE INSTALLER Office Visit Department of Oncology in [place], [place] [address] [place] [address] Mari Noguera M.D. [address] [place] [phone] Multiple Myeloma Not Having Achieved Remission (HCC) (Primary Dx); Diarrhea; Transplant Stem Cell (HCC); Thrombocytopenia (HCC) Social [...] often do you attend chur ch or zoroastrianism services? 1 to 4 times per year [...] Answer Date Recorded PHQ-2 Score 4 11/18/2021 [facility] Occupat ional Health - Occupational [...] Sign Reading Time Taken Comments Blood Pressure 104/46 01/13/2023 8:34 AM POWER LINE INSTALLER Pulse 49 01/13/2023 8:34 AM POWER LINE INSTALLER Temperature 36.4 ??C (97.5 ??F) 01/13/2023 8:34 AM CS T Respiratory Rate - - Oxygen Saturation - - Inhaled Oxygen Concentration - - Weight 81.9 kg (180 lb 8.9 oz) 01/13/2023 8:34 A M POWER LINE INSTALLER Height - - Body Mass Index 32.64 10/07/2022 11:14 AM CDT documented in this encounter Progress Notes * Mari Noguera M.D. - 01/13/2023 8:40 AM CST SUBJECTIVE PRIMARY CARE PHYSICIAN [...] chains: kappa: 8.01 mg/L; lambda: 33.64 mg/L; Vanlue:Lambda Ratio: 0.24 SPEP: M-spike: 3.26 g/dL Immunofixation: [...] HR FISH prompted change in therapy to Lesa-VRD C1D1 pending 06/24/2021 - 06/24/2021 Chemotherapy Daratumumab [...] chain-restricted plasma cells . 04/08/2022 - Chemotherapy Daratumumab (Subcutaneous) RVD (Lenalidomide / Bortezomib / Dexamethasone) (28 day cycles) Start Date: 04/08/2022 INTERIM HISTORY is seen prior to continuation of maintenance Revlimid/Velcade in the post ASCT setting. She continues to tolerate well. No peripheral neuropathy, her energy level has been excellent although she does experience some days of increased fatigue. She has occasional loose stool managed with Imodium, however frequency has increased, she is now having up to 3 loose stools in a day. ECOG performance status of 1. Pain rated at 0. REVIEW OF SYSTEMS Respiratory: Positive for coughing up mucus (phlegm). Gastrointestinal: Positive for diarrhea. All other systems reviewed and are negative. The following systems were negative: Constitutional, Skin, Eyes, ENT, Cardiovascular, Genitourinary, Hematologic, Musculoskeletal, Neurological, Psychiatric PHYSICAL EXAM Vitals reviewed. Constitutional General: She is not in acute distress. HENT Mouth/Throat: Pharynx: No oropharyngeal exudate. Eyes General: No scleral icterus. Conjunctiva/sclera: Conjunctivae normal. Cardiovascular Rate and Rhythm: Normal rate and regular rhythm. Pulmonary Effort: Pulmonary effort is normal. No respiratory distress. Breath sounds: No wheezing. Abdominal General: There is no distension. Palpations: Abdomen is soft. Tenderness: There is no abdominal tenderness. Lymphadenopathy Cervical: No cervical adenopathy. Upper Body: Right upper body: No supraclavicular adenopathy. Left upper body: No supraclavicular adenopathy. Skin Findings: No rash. Neurological Mental Status: She is alert and oriented to person, place, and time. LABORATORY DATA Reviewed RADIOLOGICAL DATA No results found. 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) Ms. Treadwell will continue maintenance therapy with every other week bortezomib and lenalidomide 10 mg 21 of 28 days. . Myeloma indices pending from today, she will be contacted through the portal [employer]. She is recurrent thrombocytopenia today with platelets of 54. Hold Velcade and Revlimid. She will follow-up in 1 week with repeat CBC, if platelets have recovered to 75 or greater resume Velcade and Revlimid. Continue with Revlimid at 10 mg and decrease Velcade by 20%. We discussed the possibility that at some point her Revlimid dose may need to be decreased as well if her thrombocytopenia persists. Post transplant immunizations: Posttransplant vaccines began 6 months after transplant through her primary care provider. Antibiotic prophylaxis: She should continue with Pen VK and acyclovir. Pen VK can be stopped at 1 year post transplant. She stopped Bactrim at day 100. Continue acyclovir while on bortezomib until 3 months post bortezomib DVT/PE prophylaxis aspirin 325 mg daily. She is considering pursuing knee replacement in the future and has been cleared from a transplant standpoint. We would need to time this with maintenance treatment as well. She will hold off on this for now. However if she does pursue knee replacement would need to consider full anticoagulation in the perioperative period. Mari Noguera M.D. R LINE INSTALLER documented in this encounter Plan of Treatment Upcoming Encounters Date Type Department Care Team (Late st Contact Info) Description 03/16/2023 10:30 AM POWER LINE INSTALLER Appointment Department of Laboratory Medicine in [address] [place] [address] Mari Noguera M.D. [address] [place] [phone] 03/17/2023 8:40 AM POWER LINE INSTALLER Office Visit Department of Oncology in [address] [phone] Mari Noguera M.D. [address] [place] [phone] 03/17/2023 9:45 AM POWER LINE INSTALLER Infusion Department of Infusion Therapy in [address] [phone] Mari Noguera M.D. [address] [place] [phone] 03/31/2023 10:10 AM POWER LINE INSTALLER Appointment Department of Laboratory Medicine in [address] [place] [address] Mari Noguera M.D. [address] [place] [phone] 04/04/2023 8:20 AM POWER LINE INSTALLER Office Visit Department of Oncology in [address] [phone] Mari Noguera M.D. [address] [place] [phone] 04/04/2023 9:00 AM POWER LINE INSTALLER Infusion Department of Infusion Therapy in [address] [phone] Mari Noguera M.D. [address] [place] [address] 04/13/2023 10:10 AM POWER LINE INSTALLER Appointment Department of Laboratory Medicine in [address] [phone] Mari Noguera M.D. [address] [place] [phone] 04/14/2023 9:00 AM POWER LINE INSTALLER Infusion Department of Infusion Therapy in [address] [phone] Mari Noguera M.D. [address] [place] [phone] documented as of this encounter Results * (ABNORMAL) Monoclonal Gammopathy Diagnostic (01/20/2023 10:03 AM POWER LINE INSTALLER) Therapeutic Antibody Administered? Unspecified 01/23/2023 7:47 AM POWER LINE INSTALLER [facility] Total Protein, S 6.4 6.3 - 7.9 g/dL 01/23/2023 9:41 AM POWER LINE INSTALLER [facility] Vanlue Free Light Chain, S 1.45 0.3300 - 1.94 mg/dL 01/23/2023 11:12 AM POWER LINE INSTALLER [facility] Lambda Free Light Chain, S 1.41 0.5700 - 2.63 mg/dL 01/23/2023 11:12 AM POWER LINE INSTALLER [facility] Vanlue/Lambda FLC Ratio 1.03 0.2600 - 1.65 01/23/2023 11:12 AM POWER LINE INSTALLER [facility] Albumin 3.3(L) 3.4 - 4.7 g/dL 01/23/2023 1:40 PM POWER LINE INSTALLER [facility] Alpha-1 Globulin 0.3 0.1 - 0.3 g/dL 01/23/2023 1:40 PM POWER LINE INSTALLER [facility] Alpha-2 Globulin 1.1(H) 0.6 - 1.0 g/dL 01/23/2023 1:40 PM POWER LINE INSTALLER [facility] Beta-Globulin 1.0 0.7 - 1.2 g/dL 01/23/2023 1:40 PM POWER LINE INSTALLER [facility] Gamma-Globulin 0.8 0.6 - 1.6 g/dL 01/23/2023 1:40 PM POWER LINE INSTALLER [facility] A/G Ratio 1.05 01/23/2023 1:40 PM POWER LINE INSTALLER [facility] Impression Small abnormality in gamma fraction. See Isotype. 01/23/2023 1:40 PM POWER LINE INSTALLER [facility] Flag, M-protein Isotype Positive(A) Negative 01/24/2023 3:10 PM POWER LINE INSTALLER [facility] M-protein Isotype MALDI-TOF MS IgG lambda, monoclonal. 01/24/2023 3:10 PM POWER LINE INSTALLER [facility] Comment: ----ADDITIONAL INFORMATION---- The submitted sample was assayed by five separate immunopurifications for IgG, IgA, IgM, kappa and lambda. ??The result reflects the findings of either no monoclonal protein detected or those monoclonal immunoglobulins that were detected. This test was developed and its performance characteristics determined by [facility] in a manner consistent with CLIA requirements. This test has not been cleared or approved by the U.S. Food and Drug Administration. Blood (Blood, Venous) 01/20/2023 10:03 AM POWER LINE INSTALLER 01/23/2023 8:47 AM POWER LINE INSTALLER Narrative [facility] - 01/24/2023 3:10 PM POWER LINE INSTALLER Specimen Information: Specimen ID: [id number] Specimen Type: Blood Specimen Collection Start Date: 01/20/2023 10:03 AM Specimen Received Date: 01/23/2023 ??8:47 AM Specimen ID: [id number] Specimen Type: Blood Specimen Collection Start Date: 01/20/2023 10:03 AM Specimen Received Date: 01/23/2023 ??7:47 AM Mari Noguera M.D. LAB BLOOD ADD-ON [facility] [address] [place] [address] [facility] [address] [place] [address] [place] [address] * (ABNORMAL) Comprehensive Metabolic Panel (01/20/2023 10:03 AM POWER LINE INSTALLER) Potassium, P 4.2 3.6 - 5.2 mmol/L 01/20/2023 10:34 AM POWER LINE INSTALLER [facility] Sodium, P 141 135 - 145 mmol/L 01/20/2023 10:34 AM POWER LINE INSTALLER [facility] Chloride, P 104 98 - 107 mmol/L 01/20/2023 10:34 AM POWER LINE INSTALLER [facility] Bicarbonate, P 29 22 - 29 mmol/L 01/20/2023 10:34 AM POWER LINE INSTALLER [facility] Anion Gap, P 8 7 - 15 01/20/2023 10:34 AM POWER LINE INSTALLER [facility] BUN (Blood Urea Nitrogen), P 30(H) 6 - 21 mg/dL 01/20/2023 10:34 AM POWER LINE INSTALLER [facility] Creatinine 1.25(H) 0.59 - 1.04 mg/dL 01/20/2023 10:34 AM POWER LINE INSTALLER [facility] Estimated GFR (eGFR) 45(L) >=60 mL/min/BS A 01/20/2023 10:34 AM POWER LINE INSTALLER [facility] Comment: Estimated GFR calculated using the 2020 CKD_EPI creatinine equation. Calcium, Total, P 9.5 8.8 - 10.2 mg/dL 01/20/2023 10:34 AM POWER LINE INSTALLER [facility] Glucose, P 104 70 - 140 mg/dL 01/20/2023 10:34 AM POWER LINE INSTALLER [facility] Protein, Total, P 6.7 6.3 - 7.9 g/dL 01/20/2023 10:34 AM POWER LINE INSTALLER [facility] Albumin, P 4.1 3.5 - 5.0 g/dL 01/20/2023 10:34 AM POWER LINE INSTALLER [facility] Aspartate Aminotransferase (AST), P 19 8 - 43 U/L 01/20/2023 10:34 AM POWER LINE INSTALLER [facility] Alkaline Phosphatase, P 64 35 - 104 U/L 01/20/2023 10:34 AM POWER LINE INSTALLER [facility] Alanine Aminotransferase (ALT), P 15 7 - 45 U/L 01/20/2023 10:34 AM POWER LINE INSTALLER [facility] Bilirubin, Total, P 0.3 0.0 - 1.2 mg/dL 01/20/2023 10:34 AM POWER LINE INSTALLER [facility] Blood (Blood, Venous) 01/20/2023 10:03 AM POWER LINE INSTALLER 01/20/2023 10:06 AM POWER LINE INSTALLER Mari Noguera M.D. LAB BLOOD ADD-ON [facility] [address] [place] [address], [facility] [place] [address] [place] [address] * (ABNORMAL) CBC with Differential, Blood (01/20/2023 10:03 AM POWER LINE INSTALLER) Hemoglobin 11.5(L) 11.6 - 15.0 g/dL 01/20/2023 10:18 AM POWER LINE INSTALLER [facility] Hematocrit 35.8 35.5 - 44.9 % 01/20/2023 10:18 AM POWER LINE INSTALLER [facility] Erythrocytes 3.56(L) 3.92 - 5.13 x10(12)/L 01/20/2023 10:18 AM POWER LINE INSTALLER [facility] MCV 100.6(H) 78.2 - 97.9 fL 01/20/2023 10:18 AM POWER LINE INSTALLER [facility] RBC Distrib Width 15.9 12.2 - 16.1 % 01/20/2023 10:18 AM POWER LINE INSTALLER [facility] Platelet Count 56(L) 157 - 371 x10(9)/L 01/20/2023 10:18 AM POWER LINE INSTALLER [facility] Leukocytes 2.8(L) 3.4 - 9.6 x10(9)/L 01/20/2023 10:18 AM POWER LINE INSTALLER [facility] Neutrophils 1.38(L) 1.56 - 6.45 x10(9)/L 01/20/2023 10:18 AM POWER LINE INSTALLER [facility] Lymphocytes 0.98 0.95 - 3.07 x10(9)/L 01/20/2023 10:18 AM POWER LINE INSTALLER [facility] Monocytes 0.34 0.26 - 0.81 x10(9)/L 01/20/2023 10:18 AM POWER LINE INSTALLER [facility] Eosinophils 0.10 0.03 - 0.48 x10(9)/L 01/20/2023 10:18 AM POWER LINE INSTALLER [facility] Basophils <0.03 0.01 - 0.08 x10(9)/L 01/20/2023 10:18 AM POWER LINE INSTALLER [facility] Blood (Blood, Venous) 01/20/2023 10:03 AM POWER LINE INSTALLER 01/20/2023 10:06 AM POWER LINE INSTALLER Mari Noguera M.D. LAB BLOOD ADD-ON [facility] [address] [place] [address], [facility] [place] [address] [place] [address] * GI Pathogen Panel, PCR, Feces (01/18/2023 3:00 PM POWER LINE INSTALLER) Specimen Source STOOL 1:03 PM POWER LINE INSTALLER [facility] Campylobacter species Negative Negative 01/20/2023 1:03 PM POWER LINE INSTALLER [facility] C. difficile toxin Negative Negative 2022 1:03 PM POWER LINE INSTALLER [facility] Plesiomonas shigelloides Negative Negative 01/20/2023 1:03 PM POWER LINE INSTALLER [facility] Salmonella species Negative Negative 2022 1:03 PM POWER LINE INSTALLER [facility] Vibrio species Negative Negative 01/20/2023 1:03 PM POWER LINE INSTALLER [facility] Vibrio cholerae Negative Negative 1:03 PM POWER LINE INSTALLER [facility] Yersinia species Negative Negative 01/21/20 1:03 PM POWER LINE INSTALLER [facility] Enteroaggregative E. coli (EAEC) Negative Negative 01/20/2023 1:03 PM POWER LINE INSTALLER [facility] Enteropathogenic E. coli (EPEC) Negative Negative 01/20/2023 1:03 PM POWER LINE INSTALLER [facility] Enterotoxigenic E. coli (ETEC) Negative Negative 01/20/2023 1:03 PM POWER LINE INSTALLER [facility] Shiga toxin producing E. coli Negative Negative 01/20/2023 1:03 PM POWER LINE INSTALLER [facility] Shigella/Enteroinvas carlos E. coli Negative Negative 01/20/2023 1:03 PM POWER LINE INSTALLER [facility] Cryptosporidium species Negative Negative 01/20/2023 1:03 PM POWER LINE INSTALLER [facility] Cyclospora cayetanensis Negative Negative 01/20/2023 1:03 PM POWER LINE INSTALLER [facility] Entamoeba histolytica Negative Negative 01/20/2023 1:03 PM POWER LINE INSTALLER [facility] Giardia Negative Negative 01/20/2023 1:03 PM POWER LINE INSTALLER [facility] Adenovirus F40/41 Negative Negative 023 1:03 PM POWER LINE INSTALLER [facility] Astrovirus Negative Negative 01/20/2023 1:03 PM POWER LINE INSTALLER [facility] Norovirus GI/GII Negative Negative 01/21/20 1:03 PM POWER LINE INSTALLER [facility] Rotavirus Ag, F Negative Negative 1:03 PM POWER LINE INSTALLER [facility] Sapovirus Negative Negative 01/20/2023 1:03 PM POWER LINE INSTALLER [facility] Comment: ----ADDITIONAL INFORMATION---- This assay is performed using the FDA-cleared AntennaArray GI Panel ([employer] Stool (Stool) 01/18/2023 3:0 0 PM POWER LINE INSTALLER 01/20/2023 9:53 AM POWER LINE INSTALLER Mari Noguera M.D. LAB MICROBIOLOGY - G ENERAL ORDERABLES [facility] [address] [place] [address], [facility] [address] [place] [address] documented in this encounter Visit Diagnoses Diagnosis Multiple Myeloma Not Having Achieved Remission (HCC)- Primary Diarrhea Transplant Stem Cell (HCC) Thrombocytopenia (HCC) Multiple Myeloma Not Having Achieved Remission (HCC) Diarrhea documented in this encounter Additional Health Concerns Infection Onset Date Last Indicated Resolved Time Protective Environment 06/03/2022 06/03/2022 documented as of this encounter Care Teams Supervisor Press Room Relationship Specialty Start Date End Date Elsewhere, Pcp PCP - General Internal Medicine 04/01/22 documented as of this encounter
--- OUTSIDE RECORDS SUMMARY | 2023-03-08 08:49 | XMS_ITS | Encounter Summary ---
Author Name Unknown Organization [facility] Address [address] [place] [address] Care Team Providers Care Brush Cleaner Name Role Phone Elsewhere, Pcp Primary Care Provider Unavailabl e Encounter Details Date Type Department Care Team (Late st Contact Info) Description 01/02/2023 Specialty Pharmacy [facility] [address] [place] [address] Aylin Sahu, Pharm.D., R.Ph. [address] [place] [address] Social History Tobacco Use Types Packs/Day Years [...] often do you attend chur ch or cheondoism services? 1 to 4 times per year 06/11/2021 Do you belong to any clubs o r organizations such as advent groups, unions, fraternal or athletic groups, or [...] Answer Date Recorded PHQ-2 Score 4 [facility] Answer Date [...] encounter Miscellaneous Notes * Telephone Encounter - Aylin Sahu Pharm.D., R.Ph. - 01/02/2023 10:01 AM CST [facility] service discontinued at this time. Patient using other pharmacy. HROOM OPERATOR documented in this encounter Plan of Treatment Upcoming Encounters Date Type Department Care Team (Late st Contact Info) Description 03/16/2023 10:30 AM LUNCHROOM OPERATOR Appointment Department of Laboratory Medicine in [address] [phone] Mari Noguera M.D. [address] [place] [phone] 03/17/2023 8:40 AM LUNCHROOM OPERATOR Office Visit Department of Oncology in [address] [phone] Mari Noguera M.D. [address] [place] [phone] 03/17/2023 9:45 AM LUNCHROOM OPERATOR Infusion Department of Infusion Therapy in [address] [phone] Mari Noguera M.D. [address] [place] [phone] 03/31/2023 10:10 AM LUNCHROOM OPERATOR Appointment Department of Laboratory Medicine in [address] [phone] Mari Noguera M.D. [address] [place] [phone] 04/04/2023 8:20 AM LUNCHROOM OPERATOR Office Visit Department of Oncology in [address] [phone] Mari Noguera M.D. [address] [place] [phone] 04/04/2023 9:00 AM LUNCHROOM OPERATOR Infusion Department of Infusion Therapy in [address] [phone] Mari Noguera M.D. [place] [phone] 04/13/2023 10:10 AM LUNCHROOM OPERATOR Appointment Department of Laboratory Medicine in [address] [place] [address] Mari Noguera M.D. [address] [place] [phone] 04/14/2023 9:00 AM LUNCHROOM OPERATOR Infusion Department of Infusion Therapy in [place], [place] [address] [place] [phone] Mari Noguera M.D. [address] [place] [phone] documented as of this encounter Visit Diagnoses Not on filedocumented in this encounter Additional Health Concerns Infection Onset Date Last Indicated Resolved Time Protective Environment 06/03/2022 06/03/2022 documented as of this encounter Care Teams Brush Cleaner Relationship Specialty Start Date End Date Elsewhere, Pcp PCP - General Internal Medicine 04/01/22 documented as of this encounter
--- OUTSIDE RECORDS SUMMARY | 2023-03-08 08:49 | XMS_ITS | Encounter Summary ---
Author Name Unknown Organization [facility] Address [address] [place] [address] Care Team Providers Care Waiter/Waitress Dining Car Name Role Phone Elsewhere, Pcp Primary Care Provider Unavailabl e Encounter Details Date Type Department Care Team (Late st Contact Info) Description 12/29/2022 Orders Only Department of Infusion Therapy in [place], [place] [address] [place] [phone] Donita Sandhu R.N. [address] [place] [phone] Multiple Myeloma Not Having Achieved Remission (HCC) [...] often do you attend chur ch or yazdanism services? 1 to 4 times per year [...] Answer Date Recorded PHQ-2 Score 4 11/18/2021 [facility] Questionnaire Answer Date Recorded [...] place to sleep or slept in a group home (including now)? No 06/11/2021 Nutrition Answer [...] st Contact Info) Description 03/16/2023 10:30 AM PAGE MAKEUP SYSTEM OPERATOR Appointment Department of Laboratory Medicine in [place] [address] [facility] [place] [phone] Mari Noguera M.D. [address] [place] [phone] 03/17/2023 8:40 AM PAGE MAKEUP SYSTEM OPERATOR Office Visit Department of Oncology in [address] [place] [phone] Mari Noguera M.D. [address] [place] [phone] 03/17/2023 9:45 AM PAGE MAKEUP SYSTEM OPERATOR Infusion Department of Infusion Therapy in [address] [place] [address] Mari Noguera M.D. [address] [place] [phone] 03/31/2023 10:10 AM PAGE MAKEUP SYSTEM OPERATOR Appointment Department of Laboratory Medicine in [address] [phone] Mari Noguera M.D. [address] [place] [phone] 04/04/2023 8:20 AM PAGE MAKEUP SYSTEM OPERATOR Office Visit Department of Oncology in [address] [phone] Mari Noguera M.D. [address] [place] [phone] 04/04/2023 9:00 AM PAGE MAKEUP SYSTEM OPERATOR Infusion Department of Infusion Therapy in [address] [phone] Mari Noguera M.D. [address] [place] [phone] 04/13/2023 10:10 AM PAGE MAKEUP SYSTEM OPERATOR Appointment Department of Laboratory Medicine in [address] [address] Mari Noguera M.D. [address] [place] [address], [place] [address] 04/14/2023 9:00 AM PAGE MAKEUP SYSTEM OPERATOR Infusion Department of Infusion Therapy in [place], [place] [address] [place] [address], [place] [address] Mari Noguera M.D. [address] [place] [address] documented as of this encounter Results * (ABNORMAL) CBC with Differential, Blood (12/29/2022 1:31 PM CDT) Pathologist [facility] Hemoglobin 12.1 11.6 - 15.0 g/dL 12/29/2022 [...] CDT Mari Noguera M.D. LAB BLOOD ADD-ON [facility] [address] [place] [address], [facility] FB60 [facility] [place] [address] [place] [address] documented in this encounter Visit Diagnoses Diagnosis Multiple Myeloma Not Having Achieved Remission (HCC)- Primary documented in this encounter Additional Health Concerns Infection Onset Date Last Indicated Resolved Time Protective Environment 06/03/2022 06/03/2022 documented as of this encounter Care Teams Waiter/Waitress Dining Car Relationship Specialty Start Date End Date Elsewhere, Pcp PCP - General Internal Medicine 04/01/22 documented as of this encounter
--- OUTSIDE RECORDS SUMMARY | 2023-03-08 08:49 | XMS_ITS | Encounter Summary ---
Author Name Unknown Organization [facility] Address [address] [place] [address] Care Team Providers Care Senior Java Programmer Name Role Phone Elsewhere, Pcp Primary Care [...] 17 total visits Mari Noguera M.D. [address] [place] [address] [facility] Region Referral ID Status Reason Start Date Expiration Date V isits Requested Visits Authorized [id number] Authorized 05/28/2021 02/27/2024 31 31 Encounter Details Date Type Department Care Team (Latest Contact Info) Description 01/12/2023 9:54 AM CREDIT COLLECTOR - 01/12/2023 11:59 PM CREDIT COLLECTOR Hospital Encounter Department of Laboratory Medicine in [place] [address] [facility] [place] [address] Mari Noguera M.D. [address] [place] [address] Multiple Myeloma Not Having Achieved [...] How often do you attend chur or restorationism services? 1 to 4 times per year 06/11/2021 Do you belong to any clubs o r organizations such as mandaen groups, unions, fraternal or athletic groups, or [...] Answer Date Recorded PHQ-2 Score 4 11/18/2021 [facility] of Occupat ional Health - Occupational Stress [...] place to sleep or slept in a custodial (including now)? No 06/11/2021 Nutrition Answer Date [...] st Contact Info) Description 03/16/2023 10:30 AM CREDIT COLLECTOR Appointment Department of Laboratory Medicine in [place] [address] [place] [phone] Mari Noguera M.D. [address] [place] [address] [place] [phone] 03/17/2023 8:40 AM CREDIT COLLECTOR Office Visit Department of Oncology in [place], [place] [facility] [place] [address] Mari Noguera M.D. [address] [place] [phone] 03/17/2023 9:45 AM CREDIT COLLECTOR Infusion Department of Infusion Therapy in [address] [place] [address] Mari Noguera M.D. [address] [place] [phone] 03/31/2023 10:10 AM CREDIT COLLECTOR Appointment Department of Laboratory Medicine in [address] [place] [address] Mari Noguera M.D. [address] [place] [phone] 04/04/2023 8:20 AM CREDIT COLLECTOR Office Visit Department of Oncology in [address] [place] [address] Mari Noguera M.D. [address] [place] [phone] 04/04/2023 9:00 AM CREDIT COLLECTOR Infusion Department of Infusion Therapy in [address] [place] [address] Mari Noguera M.D. [address] [place] [phone] 04/13/2023 10:10 AM CREDIT COLLECTOR Appointment Department of Laboratory Medicine in [address] [place] [address] Mari Noguera M.D. [address] [place] [phone] 04/14/2023 9:00 AM CREDIT COLLECTOR Infusion Department of Infusion Therapy in [address] [place] [address] Mari [place] [address] documented as of this encounter Procedures Procedure Name Priority Date/Time Associated Diagnosis Comments CBC WITH DIFFERENTIAL, B Routine 01/12/2023 10:10 AM CREDIT COLLECTOR Multiple Myeloma Not Having Achieved Remission (HCC) COMPREHENSIVE METABOLIC PANEL, S/P Routine 01/12/2023 10:10 AM CREDIT COLLECTOR Multiple Myeloma Not Having Achieved Remission (HCC) documented in this encounter Results * (ABNORMAL) Comprehensive Metabolic Panel (01/12/2023 10:10 AM CREDIT COLLECTOR) Potassium, P 3.8 3.6 - 5.2 mmol/L 01/12/2023 2:01 PM CREDIT COLLECTOR OWAT Sodium, P 140 135 - 145 mmol/L 01/12/2023 2:01 PM CREDIT COLLECTOR OWAT Chloride, P 102 98 - 107 mmol/L 01/12/2023 2:01 PM CREDIT COLLECTOR OWAT Bicarbonate, P 27 22 - 29 mmol/L 01/12/2023 2:01 PM CREDIT COLLECTOR OWAT Anion Gap, P 11 7 - 15 01/12/2023 2:01 PM CREDIT COLLECTOR OWAT BUN (Blood Urea Nitrogen), P 33(H) 6 - 21 mg/dL 01/12/2023 2:01 PM CREDIT COLLECTOR OWAT Creatinine 1.30(H) 0.59 - 1.04 mg/dL 01/12/2023 2:01 PM CREDIT COLLECTOR OWAT Estimated GFR (eGFR) 43(L) >=60 mL/min/BS A 01/12/2023 2:01 PM CREDIT COLLECTOR OWAT Comment: Estimated GFR calculated using the 2020 CKD_EPI creatinine equation. Calcium, Total, P 9.8 8.8 - 10.2 mg/dL 01/12/2023 2:01 PM CREDIT COLLECTOR OWAT Glucose, P 122 70 - 140 mg/dL 01/12/2023 2:01 PM CREDIT COLLECTOR OWAT Protein, Total, P 6.5 6.3 - 7.9 g/dL 01/12/2023 2:01 PM CREDIT COLLECTOR OWAT Albumin, P 4.2 3.5 - 5.0 g/dL 01/12/2023 2:01 PM CREDIT COLLECTOR OWAT Aspartate Aminotransferase (AST), P 19 8 - 43 U/L 01/12/2023 2:01 PM CREDIT COLLECTOR OWAT Alkaline Phosphatase, P 73 35 - 104 U/L 01/12/2023 2:01 PM CREDIT COLLECTOR OWAT Alanine Aminotransferase (ALT), P 17 7 - 45 U/L 01/12/2023 2:01 PM CREDIT COLLECTOR OWAT Bilirubin, Total, P 0.3 0.0 - 1.2 mg/dL 01/12/2023 2:01 PM CREDIT COLLECTOR OWAT Blood (Blood, Venous) 01/12/2023 10:10 AM CREDIT COLLECTOR 01/12/2023 1:05 PM CREDIT COLLECTOR Mari Noguera M.D. LAB BLOOD ADD-ON [facility] [address] [place] [address], [facility] OWAT [facility] [place] [facility] [place] [address], [place] [address] * (ABNORMAL) CBC with Differential, Blood (01/12/2023 10:10 AM CREDIT COLLECTOR) Hemoglobin 12.0 11.6 - 15.0 g/dL 01/12/2023 10:37 AM CREDIT COLLECTOR FB60 Hematocrit 37.0 35.5 - 44.9 % 01/12/2023 10:37 AM CREDIT COLLECTOR FB60 Erythrocytes 3.75(L) 3.92 - 5.13 x10(12)/L 01/12/2023 10:37 AM CREDIT COLLECTOR FB60 MCV 98.7(H) 78.2 - 97.9 fL 01/12/2023 10:37 AM CREDIT COLLECTOR FB60 RBC Distrib Width 15.6 12.2 - 16.1 % 01/12/2023 10:37 AM CREDIT COLLECTOR FB60 Platelet Count 54(L) 157 - 371 x10(9)/L 01/12/2023 10:37 AM CREDIT COLLECTOR FB60 Leukocytes 3.6 3.4 - 9.6 x10(9)/L 01/12/2023 10:37 AM CREDIT COLLECTOR FB60 Neutrophils 2.29 1.56 - 6.45 x10(9)/L 01/12/2023 10:37 AM CREDIT COLLECTOR FB60 Lymphocytes 0.83(L) 0.95 - 3.07 x10(9)/L 01/12/2023 10:37 AM CREDIT COLLECTOR FB60 Monocytes 0.29 0.26 - 0.81 x10(9)/L 01/12/2023 10:37 AM CREDIT COLLECTOR FB60 Eosinophils 0.20 0.03 - 0.48 x10(9)/L 01/12/2023 10:37 AM CREDIT COLLECTOR FB60 Basophils <0.04 0.01 - 0.08 x10(9)/L 01/12/2023 10:37 AM CREDIT COLLECTOR FB60 Blood (Blood, Venous) 01/12/2023 10:10 AM CREDIT COLLECTOR 01/12/2023 10:10 AM CREDIT COLLECTOR Mari Noguera M.D. LAB BLOOD ADD-ON [facility] [address] [place] [address], [facility] FB60 [facility] [place] [facility] [place] [address] [place] [address] documented in this encounter Visit Diagnoses Diagnosis Multiple Myeloma Not Having Achieved Remission (HCC) documented in this encounter Additional Health Concerns Infection Onset Date Last Indicated Resolved Time Protective Environment 06/03/2022 06/03/2022 documented as of this encounter Care Teams Senior Java Programmer Relationship Specialty Start Date End Date Elsewhere, Pcp PCP - General Internal Medicine 04/01/22 documented as of this encounter
--- OUTSIDE RECORDS SUMMARY | 2023-03-08 08:50 | XMS_ITS | Encounter Summary ---
Author Name Unknown Organization [facility] Address [address] [place] [address] Care Team Providers Care Hand Tapper Name Role Phone Elsewhere, Pcp Primary Care Provider Unavailabl e Encounter Details Date Type Department Care Team (Late st Contact Info) Description 12/24/2022 Orders Only Department of Oncology in [place], [place] [address] [place] [address] Mari Noguera M.D. [address] [place] [phone] Social History Tobacco Use Types Packs/Day Years [...] often do you attend chur ch or church services? 1 to 4 times per year 06/11/2021 Do you belong to any clubs o r organizations such as taoism groups, unions, fraternal or athletic groups, or [...] Answer Date Recorded PHQ-2 Score 4 11/18/2021 [facility] of Occupat ional Health - Occupational [...] st Contact Info) Description 03/16/2023 10:30 AM DOCUMENTATION ANALYST Appointment Department of Laboratory Medicine in [place] [address] [address] [facility] [place] [place] [phone] Mari Noguera M.D. [address] [place] [phone] 03/17/2023 8:40 AM DOCUMENTATION ANALYST Office Visit Department of Oncology in [place] [address] [place] [phone] Mari Noguera M.D. [facility] [phone] 03/17/2023 9:45 AM DOCUMENTATION ANALYST Infusion Department of Infusion Therapy in [place] [address] [place] [address] Mari Noguera M.D. [facility] [address] 03/31/2023 10:10 AM DOCUMENTATION ANALYST Appointment Department of Laboratory Medicine in [address] [address] Mari Noguera M.D. [facility] [phone] 04/04/2023 8:20 AM DOCUMENTATION ANALYST Office Visit Department of Oncology in [place] [address] [place] [address] Mari Noguera M.D. [facility] [place] [phone] 04/04/2023 9:00 AM DOCUMENTATION ANALYST Infusion Department of Infusion Therapy in [address] [address] Mari Noguera M.D. [facility] [address] 04/13/2023 10:10 AM DOCUMENTATION ANALYST Appointment Department of Laboratory Medicine in [address] [address] Mari Noguera M.D. [address] [place] [phone] 04/14/2023 9:00 AM DOCUMENTATION ANALYST Infusion Department of Infusion Therapy in [place], [place] [address] [place] [phone] Mari Noguera M.D. [address] [place] [address] documented as of this encounter Visit Diagnoses Not on filedocumented in this encounter Additional Health Concerns Infection Onset Date Last Indicated Resolved Time Protective Environment 06/03/2022 06/03/2022 documented as of this encounter Care Teams Hand Tapper Relationship Specialty Start Date End Date Elsewhere, Pcp PCP - General Internal Medicine 04/01/22 documented as of this encounter
--- OUTSIDE RECORDS SUMMARY | 2023-03-08 08:50 | XMS_ITS | Encounter Summary ---
Author Name Unknown Organization [facility] Address [address] [place] [address] Care Team Providers Care Riprap Placing Supervisor Name Role Phone Elsewhere, Pcp Primary Care Provider Unavailabl e Encounter Details Date Type Department Care Team (Late st Contact Info) Description 12/26/2022 Orders Only Department of Oncology in [place], [place] [address] [place] [phone] Mari Noguera M.D. [address] [place] [address] Multiple Myeloma Not Having Achieved [...] How often do you attend chur or jain services? 1 to 4 times per year 06/11/2021 Do you belong to any clubs o r organizations such as restoration groups, unions, fraternal or athletic groups, or [...] Answer Date Recorded PHQ-2 Score 4 11/18/2021 [facility] of Occupat ional Health - [...] st Contact Info) Description 03/16/2023 10:30 AM WEB PRESSMAN Appointment Department of Laboratory Medicine in [place] [address] [place] [phone] Mari Noguera M.D. [address] [place] [address] 03/17/2023 8:40 AM WEB PRESSMAN Office Visit Department of Oncology in [address] [place] [phone] Mari Noguera M.D. [address] [place] [phone] 03/17/2023 9:45 AM WEB PRESSMAN Infusion Department of Infusion Therapy in [address] [address] Mari Noguera M.D. [address] [place] [phone] 03/31/2023 10:10 AM WEB PRESSMAN Appointment Department of Laboratory Medicine in [address] [address] Mari Noguera M.D. [address] [place] [phone] 04/04/2023 8:20 AM WEB PRESSMAN Office Visit Department of Oncology in [address] [address] Mari Noguera M.D. [address] [place] [phone] 04/04/2023 9:00 AM WEB PRESSMAN Infusion Department of Infusion Therapy in [address] [address] Mari Noguera M.D. [address] [place] [phone] 04/13/2023 10:10 AM WEB PRESSMAN Appointment Department of Laboratory Medicine in [address] [address] Mari Noguera M.D. [address] [place] [address] 04/14/2023 9:00 AM WEB PRESSMAN Infusion Department of Infusion Therapy in [place], [place] [address] [place] [address] Mari Noguera M.D. [address] [place] [phone] documented as of this encounter Visit Diagnoses Diagnosis Multiple Myeloma Not Having Achieved Remission (HCC) documented in this encounter Additional Health Concerns Infection Onset Date Last Indicated Resolved Time Protective Environment 06/03/2022 06/03/2022 documented as of this encounter Care Teams Riprap Placing Supervisor Relationship Specialty Start Date End Date Elsewhere, Pcp PCP - General Internal Medicine 04/01/22 documented as of this encounter
--- OUTSIDE RECORDS SUMMARY | 2023-03-08 08:50 | XMS_ITS | Encounter Summary ---
Author Name Unknown Organization [facility] Address [address] [place] [address] Care Team Providers Care Mobile Homes Repairer Name Role Phone Elsewhere, Pcp Primary Care Provider Unavailabl e Encounter Details Date Type Department Care Team (Late st Contact Info) Description 12/16/2022 Orders Only Department of Oncology in [place], [place] [address] [place] [phone] Nasim Mchugh M.D. [address] [place] [phone] Multiple Myeloma Not Having Achieved Remission (HCC) [...] How often do you attend [facility] or denominational services? 1 to 4 times per year [...] Answer Date Recorded PHQ-2 Score 4 11/18/2021 [facility] of Occupat ional Health - Occupational [...] st Contact Info) Description 03/16/2023 10:30 AM RELAY MOTORMAN Appointment Department of Laboratory Medicine in [address] [phone] Mari Noguera M.D. [address] [place] [address], [place] [phone] 03/17/2023 8:40 AM RELAY MOTORMAN Office Visit Department of Oncology in [place] [address] [place] [phone] Mari Noguera M.D. [address] [place] [phone] 03/17/2023 9:45 AM RELAY MOTORMAN Infusion Department of Infusion Therapy in [address] [phone] Mari Noguera M.D. [address] [place] [phone] 03/31/2023 10:10 AM RELAY MOTORMAN Appointment Department of Laboratory Medicine in [address] [phone] Mari Noguera M.D. [address] [place] [phone] 04/04/2023 8:20 AM RELAY MOTORMAN Office Visit Department of Oncology in [address] [phone] Mari Noguera M.D. [address] [place] [phone] 04/04/2023 9:00 AM RELAY MOTORMAN Infusion Department of Infusion Therapy in [address] [phone] Mari Noguera M.D. [address] [place] [phone] 04/13/2023 10:10 AM RELAY MOTORMAN Appointment Department of Laboratory Medicine in [address] [phone] Mari Noguera M.D. [address] [place] [phone] 04/14/2023 9:00 AM RELAY MOTORMAN Infusion Department of Infusion Therapy in [place], [place] [address] [place] [address] Mari Noguera M.D. [address] [place] [phone] documented as of this encounter Visit Diagnoses Diagnosis Multiple Myeloma Not Having Achieved Remission (HCC)- Primary documented in this encounter Additional Health Concerns Infection Onset Date Last Indicated Resolved Time Protective Environment 06/03/2022 06/03/2022 documented as of this encounter Care Teams Mobile Homes Repairer Relationship Specialty Start Date End Date Elsewhere, Pcp PCP - General Internal Medicine 04/01/22 documented as of this encounter
--- OUTSIDE RECORDS SUMMARY | 2023-03-08 08:50 | XMS_ITS | Encounter Summary ---
Author Name Unknown Organization [facility] Address [address] [place] [address] Care Team Providers Care Theatrical Performer Name Role Phone Elsewhere, Pcp Primary Care Provider Unavailabl e Reason for Visit * Episode Based Medications (Routine) - Authorized Specialty Diagnoses / Procedures Referred By Guillermina zamora Referred To Contact Diagnoses Multiple Myeloma Not Having Achieved Remission (HCC) Procedures NE ONDANSETRON HCL INJECTION NE DARATUMUMAB, HYALURONIDASE NE BORTEZOMIB INJECTION 1,800 mg on Day 1, 8, 15, 22 for cycles 1 & 2, Day 1, 15 3-6, Day 1 for cycle 7 / 28 day cycles / 17 total visits Mari Noguera M.D. [address] [place] [address] [facility] Region Referral ID Status Reason Start Date Expiration Date V isits Requested Visits Authorized [id number] Authorized 05/28/2021 02/27/2024 31 31 Encounter Details Date Type Department Care Team (Latest Contact Info) Description 12/15/2022 1:47 PM CDT - 12/15/2022 11:59 PM CDT Hospital Encounter Department of Laboratory Medicine in [place], [place] [address] [facility] [place] [phone] Mari Noguera M.D. [address] [place] [address] Multiple Myeloma Not Having Achieved [...] week 06/11/2021 How often do you attend [facility] or tenriism services? 1 to 4 times per year [...] Answer Date Recorded PHQ-2 Score 4 11/18/2021 [facility] of Occupat ional Health - Occupational [...] break, chew, or open. 21 capsule 0 12/15/2022 12/26/2022 penicillin V potassium (VEETIDS) 500 mg tablet TAKE 1 TABLET BY MOUTH TWICE DAILY 60 tablet 2 12/08/2022 01/27/2023 documented as of this encounter Plan of Treatment Upcoming Encounters Date Type Department Care Team (Late st Contact Info) Description 03/16/2023 10:30 AM CHECK WEIGHER Appointment Department of Laboratory Medicine in [place] [address] [place] [phone] Mari Noguera M.D. [address] [place] [phone] 03/17/2023 8:40 AM CHECK WEIGHER Office Visit Department of Oncology in [address] [phone] Noguera, Mari, M.D. [address] [place] [phone] 03/17/2023 9:45 AM CHECK WEIGHER Infusion Department of Infusion Therapy in [address] [phone] Mari Noguera M.D. [address] [place] [phone] 03/31/2023 10:10 AM CHECK WEIGHER Appointment Department of Laboratory Medicine in [address] [address] Mari Noguera M.D. [address] [place] [phone] 04/04/2023 8:20 AM CHECK WEIGHER Office Visit Department of Oncology in [address] [phone] Mari Noguera M.D. [address] [place] [phone] 04/04/2023 9:00 AM CHECK WEIGHER Infusion Department of Infusion Therapy in [address] [phone] Mari Noguera M.D. [address] [place] [phone] 04/13/2023 10:10 AM CHECK WEIGHER Appointment Department of Laboratory Medicine in [address] [phone] Mari Noguera M.D. [address] [place] [phone] 04/14/2023 9:00 AM CHECK WEIGHER Infusion Department of Infusion Therapy in [address] [place] [phone] Mari Noguera M.D. 701 [facility] [place] [address] documented as of this encounter Procedures Procedure Name Priority Date/Time Associated Diagnosis Comments CBC WITH DIFFERENTIAL, B Routine 12/15/2022 1:54 PM CDT Multiple Myeloma Not Having Achieved Remission (HCC) documented in this encounter Results * (ABNORMAL) CBC with Differential, Blood (12/15/2022 1:54 PM CDT) Hemoglobin 11.6 11.6 - 15.0 g/dL 12/15/2022 2:13 PM CDT FB60 Hematocrit 37.1 35.5 - 44.9 % 12/15/2022 2:13 PM CDT FB60 Erythrocytes 3.76(L) 3.92 - 5.13 x10(12)/L 12/15/2022 2:13 PM CDT FB60 MCV 98.7(H) 78.2 - 97.9 fL 12/15/2022 2:13 PM CDT FB60 RBC Distrib Width 15.2 12.2 - 16.1 % 12/15/2022 2:13 PM CDT FB60 Platelet Count 71(L) 157 - 371 x10(9)/L 12/15/2022 2:13 PM CDT FB60 Leukocytes 3.6 3.4 - 9.6 x10(9)/L 12/15/2022 2:13 PM CDT FB60 Neutrophils 1.69 1.56 - 6.45 x10(9)/L 12/15/2022 2:13 PM CDT FB60 Lymphocytes 1.23 0.95 - 3.07 x10(9)/L 12/15/2022 2:13 PM CDT FB60 Monocytes 0.38 0.26 - 0.81 x10(9)/L 12/15/2022 2:13 PM CDT FB60 Eosinophils 0.26 0.03 - 0.48 x10(9)/L 12/15/2022 2:13 PM CDT FB60 Basophils <0.04 0.01 - 0.08 x10(9)/L 12/15/2022 2:13 PM CDT FB60 Blood (Blood, Venous) 12/15/2022 1:54 PM CDT 12/15/2022 1:54 PM CDT Mari Noguera M.D. LAB BLOOD ADD-ON Performing Organization Address City/State/[facility] Co de Phone Number [facility] [address] [place] [address], [facility] FB60 [facility] [place] [address] [place] [address] documented in this encounter Visit Diagnoses Diagnosis Multiple Myeloma Not Having Achieved Remission (HCC) documented in this encounter Additional Health Concerns Infection Onset Date Last Indicated Resolved Time Protective Environment 06/03/2022 06/03/2022 documented as of this encounter Care Teams Theatrical Performer Relationship Specialty Start Date End Date Elsewhere, Pcp PCP - General Internal Medicine 04/01/22 documented as of this encounter
--- OUTSIDE RECORDS SUMMARY | 2023-03-08 08:50 | XMS_ITS | Encounter Summary ---
Author Name Unknown Organization [facility] Address [address] [place] [address] Care Team Providers Care Civil Engineering Design Draftsperson Name Role Phone Elsewhere, Pcp Primary Care Provider Unavailabl e Reason for Visit * Reason Comments Med Refill Encounter Details Date Type Department Care Team (Late st Contact Info) Description 12/13/2022 Refill Department of Oncology in [place], [place] [address] [place] [phone] Mari Noguera M.D. [address] [place] [address] Med Refill Social History Tobacco [...] week 06/11/2021 How often do you attend [facility] or congregation services? 1 to 4 times per year 06/11/2021 Do you belong to any clubs o r organizations such as buddhist groups, unions, fraternal or athletic groups, or [...] Score 4 11/18/2021 [facility] [place] [facility] - Occupational Stress Questionnaire Answer Date [...] st Contact Info) Description 03/16/2023 10:30 AM HAULAGE BOSS Appointment Department of Laboratory Medicine in [place] [address] [place] [phone] Mari Noguera M.D. [address] [place] [phone] 03/17/2023 8:40 AM HAULAGE BOSS Office Visit Department of Oncology in [address] [place] [phone] Mari Noguera M.D. [address] [place] [phone] 03/17/2023 9:45 AM HAULAGE BOSS Infusion Department of Infusion Therapy in [address] [place] [address] Mari Noguera M.D. [address] [place] [phone] 03/31/2023 10:10 AM HAULAGE BOSS Appointment Department of Laboratory Medicine in [address] [phone] Mari Noguera M.D. [address] [place] [phone] 04/04/2023 8:20 AM HAULAGE BOSS Office Visit Department of Oncology in [address] [place] [address] Mari Noguera M.D. [address] [place] [phone] 04/04/2023 9:00 AM HAULAGE BOSS Infusion Department of Infusion Therapy in [address] [phone] Mari Noguera M.D. [address] [place] [phone] 04/13/2023 10:10 AM HAULAGE BOSS Appointment Department of Laboratory Medicine in [address] [phone] Mari Noguera M.D. [address] [place] [phone] 04/14/2023 9:00 AM HAULAGE BOSS Infusion Department of Infusion Therapy in [place], [place] [address] [place] [phone] Mari Noguera M.D. [address] [place] [phone] documented as of this encounter Visit Diagnoses Diagnosis Multiple Myeloma Not Having Achieved Remission (HCC) documented in this encounter Additional Health Concerns Infection Onset Date Last Indicated Resolved Time Protective Environment 06/03/2022 06/03/2022 documented as of this encounter Care Teams Civil Engineering Design Draftsperson Relationship Specialty Start Date End Date Elsewhere, Pcp PCP - General Internal Medicine 04/01/22 documented as of this encounter
--- OUTSIDE RECORDS SUMMARY | 2023-03-08 08:50 | XMS_ITS | Encounter Summary ---
Author Name Unknown Organization [facility] Address [address] [place] [address] Care Team Providers Care Bike Assembler Name Role Phone Elsewhere, Pcp Primary Care Provider Unavailabl e Reason for Visit * Reason Onset Date Comments New Med Request 12/20/2022 Encounter Details Date Type Department Care Team (Latest Contact Info) Description 12/20/2022 Clinical Communication [facility] [address] [place] [phone] Gregoria May, C.Ph.T. New Med Request Social History Tobacco Use Types Packs/Day Years [...] often do you attend chur ch or orthodox services? 1 to 4 times per year [...] Answer Date Recorded PHQ-2 Score 4 11/18/2021 [facility] Answer Date Recorded [...] to sleep or slept in a senior living (including now)? No 06/11/2021 Nutrition Answer Date [...] st Contact Info) Description 03/16/2023 10:30 AM TEACHING ASSISTANT Appointment Department of Laboratory Medicine in [place], [place] [address] [facility] [place] [phone] Mari Noguera M.D. [address] [place] [phone] 03/17/2023 8:40 AM TEACHING ASSISTANT Office Visit Department of Oncology in [place] [address] [place] [address] Mari Noguera M.D. [facility] [address] [place] [address] 03/17/2023 9:45 AM TEACHING ASSISTANT Infusion Department of Infusion Therapy in [place] [address] [address] Mari Noguera M.D. [facility] [place] [phone] 03/31/2023 10:10 AM TEACHING ASSISTANT Appointment Department of Laboratory Medicine in [address] [place] [address] Mari Noguera M.D. [facility] [place] [address] 04/04/2023 8:20 AM TEACHING ASSISTANT Office Visit Department of Oncology in [place] [address] [facility] [place] [address] Mari Noguera M.D. [facility] [place] [address] 04/04/2023 9:00 AM TEACHING ASSISTANT Infusion Department of Infusion Therapy in [address] [place] [address] Mari Noguera M.D. [facility] [place] [phone] 04/13/2023 10:10 AM TEACHING ASSISTANT Appointment Department of Laboratory Medicine in [address] [place] [address] Mari Noguera M.D. [address] [place] [phone] 04/14/2023 9:00 AM TEACHING ASSISTANT Infusion Department of Infusion Therapy in [place], [place] [address] [place] [address] Mari Noguera M.D. [address] [place] [phone] documented as of this encounter Visit Diagnoses Not on filedocumented in this encounter Additional Health Concerns Infection Onset Date Last Indicated Resolved Time Protective Environment 06/03/2022 06/03/2022 documented as of this encounter Care Teams Bike Assembler Relationship Specialty Start Date End Date Elsewhere, Pcp PCP - General Internal Medicine 04/01/22 documented as of this encounter
--- OUTSIDE RECORDS SUMMARY | 2023-03-08 08:50 | XMS_ITS | Encounter Summary ---
Author Name Unknown Organization [facility] Address [address] [place] [address] Care Team Providers Care Director Biology Name Role Phone Elsewhere, Pcp Primary Care Provider Unavailabl e Reason for Referral * Medication Prior Authorization - Closed Specialty Diagnoses / Procedures Referred By Guillermina zamora Referred To Contact Diagnoses Multiple Myeloma Not Having Achieved Remission (HCC) Nasim Mchugh M.D. [address] [place] [address] Referral ID Status Reason Start Date Expiration Date Visits Re quested Visits Authorized [id number] Closed 1 1 Reason for Visit * Reason Comments Injections velcade * Episode Based Medications (Routine) - Authorized Specialty Diagnoses / Procedures Referred By Guillermina zamora Referred To Contact Diagnoses Multiple Myeloma Not Having Achieved Remission (HCC) Procedures IN ONDANSETRON HCL INJECTION IN DARATUMUMAB, HYALURONIDASE IN BORTEZOMIB INJECTION 1,800 mg on Day 1, 8, 15, 22 for cycles 1 & 2, Day 1, 15 3-6, Day 1 for cycle 7 / 28 day cycles / 17 total visits Mari Noguera M.D. [address] [place] [address] [facility] Referral ID Status Reason Start Date Expiration Date V isits Requested Visits Authorized [id number] Authorized 05/28/2021 02/27/2024 31 31 Encounter Details Date Type Department Care Team (Late st Contact Info) Description 12/16/2022 2:15 PM CDT Infusion Department of Infusion Therapy in [place], [place] [address] [place] [phone] Mari Noguera M.D. [address] [place] [phone] Multiple Myeloma Not Having Achieved Remission (HCC) [...] How often do you attend chur or buddhism services? 1 to 4 times per year 06/11/2021 Do you belong to any clubs o r organizations such as christianity groups, unions, fraternal or athletic groups, or [...] Recorded PHQ-2 Score 4 11/18/2021 [facility] of Occupat ional Health - Occupational [...] Sign Reading Time Taken Comments Blood Pressure 120/52 12/16/2022 2:07 PM CDT Pulse 52 12/16/2022 2:07 PM CDT Temperature 36.3 ??C (97.3 ??F) 12/16/2022 2:07 PM CD T Respiratory Rate 18 12/16/2022 2:07 PM CDT Oxygen Saturation 100% 12/16/2022 2:07 PM CDT Inhaled Oxygen Concentration - - Weight - - Height - - Body Mass Index - - documented in this encounter Plan of Treatment Upcoming Encounters Date Type Department Care Team (Late st Contact Info) Description 03/16/2023 10:30 AM MIGRATION SPECIALIST Appointment Department of Laboratory Medicine in [place] [address] [place] [phone] Mari Noguera M.D. [address] [place] [phone] 03/17/2023 8:40 AM MIGRATION SPECIALIST Office Visit Department of Oncology in [address] [phone] Mari Noguera M.D. [address] [place] [phone] 03/17/2023 9:45 AM MIGRATION SPECIALIST Infusion Department of Infusion Therapy in [address] [phone] Mari Noguera M.D. [address] [place] [phone] 03/31/2023 10:10 AM MIGRATION SPECIALIST Appointment Department of Laboratory Medicine in [address] [phone] Mari Noguera M.D. [address] [place] [phone] 04/04/2023 8:20 AM MIGRATION SPECIALIST Office Visit Department of Oncology in [address] [phone] Mari Noguera M.D. [address] [place] [phone] 04/04/2023 9:00 AM MIGRATION SPECIALIST Infusion Department of Infusion Therapy in [address] [phone] Mari Noguera M.D. [address] [place] [phone] 04/13/2023 10:10 AM MIGRATION SPECIALIST Appointment Department of Laboratory Medicine in [address] [phone] Mari Noguera M.D. [address] [place] [phone] 04/14/2023 9:00 AM MIGRATION SPECIALIST Infusion Department of Infusion Therapy in [place], [place] [address] [place] [address] Mari Noguera M.D. [address] [place] [address] documented as of this encounter [...] BSA from Measured weight), subcutaneous, Once, On Mon12/16/22 at 1430, For 1 dose, Rotate injection site. Given 12/16/2022 2:30 PM CDT 2.5 mg Left Lower Abdomen documented in this encounter Additional Health Concerns Infection Onset Date Last Indicated Resolved Time Protective Environment 06/03/2022 06/03/2022 documented as of this encounter Care Teams Director Biology Relationship Specialty Start Date End Date Elsewhere, Pcp PCP - General Internal Medicine 04/01/22 documented as of this encounter
--- OUTSIDE RECORDS SUMMARY | 2023-03-08 08:50 | XMS_ITS | Encounter Summary ---
Author Name Unknown Organization [facility] Address [address] [place] [address] Care Team Providers Care State Patrol Officer Name Role Phone Elsewhere, Pcp Primary Care Provider Unavailabl e Reason for Visit * Reason Onset Date Comments Rx Denial 12/20/2022 REVLIMID CAPSULE Encounter Details Date Type Department Care Team (Latest Contact Info) Description 12/20/2022 Clinical Communication Department of Oncology in [place], [place] [address] [place] [address] Mari Noguera M.D. [address] [place] [address] Rx Denial (REVLIMID CAPSULE) Social History Tobacco Use Types Packs/Day Years [...] How often do you attend chur or islam services? 1 to 4 times per year [...] Answer Date Recorded PHQ-2 Score 4 11/18/2021 [facility] of Occupat ional Health - Occupational [...] st Contact Info) Description 03/16/2023 10:30 AM SIFTER OPERATOR Appointment Department of Laboratory Medicine in [address] [phone] Mari Noguera M.D. [address] [place] [address], [place] [phone] 03/17/2023 8:40 AM SIFTER OPERATOR Office Visit Department of Oncology in [place] [address] [address] [facility] [phone] Mari Noguera M.D. [address] [place] [phone] 03/17/2023 9:45 AM SIFTER OPERATOR Infusion Department of Infusion Therapy in [address] [place] [phone] Mari Noguera M.D. [address] [place] [phone] 03/31/2023 10:10 AM SIFTER OPERATOR Appointment Department of Laboratory Medicine in [address] [address] Mari Noguera M.D. [address] [place] [phone] 04/04/2023 8:20 AM SIFTER OPERATOR Office Visit Department of Oncology in [address] [phone] Mari Noguera M.D. [address] [place] [phone] 04/04/2023 9:00 AM SIFTER OPERATOR Infusion Department of Infusion Therapy in [address] [phone] Mari Noguera M.D. [address] [place] [phone] 04/13/2023 10:10 AM SIFTER OPERATOR Appointment Department of Laboratory Medicine in [address] [facility] [address] Mari Noguera M.D. [address] [place] [phone] 04/14/2023 9:00 AM SIFTER OPERATOR Infusion Department of Infusion Therapy in [address] [phone] Mari Noguera M.D. [address] [place] [phone] documented as of this encounter Visit Diagnoses Not on filedocumented in this encounter Additional Health Concerns Infection Onset Date Last Indicated Resolved Time Protective Environment 06/03/2022 06/03/2022 documented as of this encounter Care Teams State Patrol Officer Relationship Specialty Start Date End Date Elsewhere, Pcp PCP - General Internal Medicine 04/01/22 documented as of this encounter
--- OUTSIDE RECORDS SUMMARY | 2023-03-08 08:50 | XMS_ITS | Encounter Summary ---
Author Name Unknown Organization [facility] Address [address] [place] [address] Care Team Providers Care Film Tests Checker Name Role Phone Elsewhere, Pcp Primary Care Provider Unavailabl e Reason for Visit * Reason Comments Med Refill Encounter Details Date Type Department Care Team (Late st Contact Info) Description 12/07/2022 Refill [facility], Ninth Floor [address] [place] [address] Brooklynn Salinas, MARIE, C.N.P., D.N.P. [address] [place] [address] Med Refill Social History Tobacco Use Types [...] How often do you attend chur or worship services? 1 to 4 times per year [...] Date Recorded PHQ-2 Score 4 11/18/2021 [facility] of Occupat ional Health - Occupational [...] place to sleep or slept in a mcc (including now)? No 06/11/2021 Nutrition Answer Date [...] st Contact Info) Description 03/16/2023 10:30 AM ELECTRICAL SYSTEMS ENGINEER Appointment Department of Laboratory Medicine in [address] [phone] Mari Noguera M.D. [address] [place] [address], [place] [phone] 03/17/2023 8:40 AM ELECTRICAL SYSTEMS ENGINEER Office Visit Department of Oncology in [place] [address] [address] [place] [phone] Mari Noguera M.D. [address] [place] [phone] 03/17/2023 9:45 AM ELECTRICAL SYSTEMS ENGINEER Infusion Department of Infusion Therapy in [address] [place] [phone] Mari Noguera M.D. [address] [place] [phone] 03/31/2023 10:10 AM ELECTRICAL SYSTEMS ENGINEER Appointment Department of Laboratory Medicine in [address] [address] Mari Noguera M.D. [address] [place] [phone] 04/04/2023 8:20 AM ELECTRICAL SYSTEMS ENGINEER Office Visit Department of Oncology in [address] [phone] Mari Noguera M.D. [address] [place] [phone] 04/04/2023 9:00 AM ELECTRICAL SYSTEMS ENGINEER Infusion Department of Infusion Therapy in [address] [phone] Mari Noguera M.D. [address] [place] [phone] 04/13/2023 10:10 AM ELECTRICAL SYSTEMS ENGINEER Appointment Department of Laboratory Medicine in [address] [facility] [place] [address] Mari Noguera M.D. [address] [place] [phone] 04/14/2023 9:00 AM ELECTRICAL SYSTEMS ENGINEER Infusion Department of Infusion Therapy in [address] [phone] Mari Noguera M.D. [address] [place] [phone] documented as of this encounter Visit Diagnoses Not on filedocumented in this encounter Additional Health Concerns Infection Onset Date Last Indicated Resolved Time Protective Environment 06/03/2022 06/03/2022 documented as of this encounter Care Teams Film Tests Checker Relationship Specialty Start Date End Date Elsewhere, Pcp PCP - General Internal Medicine 04/01/22 documented as of this encounter
--- OUTSIDE RECORDS SUMMARY | 2023-03-08 08:50 | XMS_ITS | Encounter Summary ---
Author Name Unknown Organization [facility] Address [address] [place] [address] Care Team Providers Care Tin Cutter Name Role Phone Elsewhere, Pcp Primary Care Provider Unavailabl e Encounter Details Date Type Department Care Team (Late st Contact Info) Description 12/20/2022 Clinical Communication Pharmacy Prior Auth RO [phone] Jovita Espinosa Social History Tobacco Use Types Packs/Day Years [...] often do you attend chur ch or moravian services? 1 to 4 times per year 06/11/2021 Do you belong to any clubs o r organizations such as religious groups, unions, fraternal or athletic groups, or [...] Answer Date Recorded PHQ-2 Score 4 11/18/2021 [facility] of Occupat ional Health - Occupational [...] st Contact Info) Description 03/16/2023 10:30 AM CRIME SCENE EVIDENCE TECHNICIAN Appointment Department of Laboratory Medicine in [place] [address] [place] [address] Mari Noguera M.D. [address] [place] [phone] 03/17/2023 8:40 AM CRIME SCENE EVIDENCE TECHNICIAN Office Visit Department of Oncology in [place], [place] [address] Mari Noguera M.D. [address] [place] [phone] 03/17/2023 9:45 AM CRIME SCENE EVIDENCE TECHNICIAN Infusion Department of Infusion Therapy in [address] [place] [address] Mari Noguera M.D. [address] [place] [phone] 03/31/2023 10:10 AM CRIME SCENE EVIDENCE TECHNICIAN Appointment Department of Laboratory Medicine in [address] [address] Mari Noguera M.D. [address] [place] [phone] 04/04/2023 8:20 AM CRIME SCENE EVIDENCE TECHNICIAN Office Visit Department of Oncology in [address] [place] [address] Mari Noguera M.D. [address] [place] [phone] 04/04/2023 9:00 AM CRIME SCENE EVIDENCE TECHNICIAN Infusion Department of Infusion Therapy in [address] [phone] Mari Noguera M.D. [address] [place] [phone] 04/13/2023 10:10 AM CRIME SCENE EVIDENCE TECHNICIAN Appointment Department of Laboratory Medicine in [place], [place] [address] [place] [address] Mari Noguera M.D. [address] [place] [phone] 04/14/2023 9:00 AM CRIME SCENE EVIDENCE TECHNICIAN Infusion Department of Infusion Therapy in [place], [place] [address] [place] [phone] Mari Noguera M.D. [address] [place] [phone] documented as of this encounter Visit Diagnoses Not on filedocumented in this encounter Additional Health Concerns Infection Onset Date Last Indicated Resolved Time Protective Environment 06/03/2022 06/03/2022 documented as of this encounter Care Teams Tin Cutter Relationship Specialty Start Date End Date Elsewhere, Pcp PCP - General Internal Medicine 04/01/22 documented as of this encounter
--- OUTSIDE RECORDS SUMMARY | 2023-03-08 08:50 | XMS_ITS | Encounter Summary ---
Author Name Unknown Organization [facility] Address [address] [place] [address] Care Team Providers Care County Agent Name Role Phone Elsewhere, Pcp Primary Care Provider Unavailabl e Reason for Visit * Reason Comments Med Refill Encounter Details Date Type Department Care Team (Late st Contact Info) Description 12/27/2022 Refill Department of Oncology in [place], [place] [address] [place] [phone] Mari Noguera M.D. [address] [place] [address] Med Refill Social History Tobacco [...] How often do you attend [facility] or zoroastrianism services? 1 to 4 times [...] Answer Date Recorded PHQ-2 Score 4 11/18/2021 [facility] - Occupational [...] st Contact Info) Description 03/16/2023 10:30 AM ANTIQUE AUTO MUSEUM MAINTENANCE WORKER Appointment Department of Laboratory Medicine in [place] [address] [place] [phone] Mari Noguera M.D. [address] [place] [phone] 03/17/2023 8:40 AM ANTIQUE AUTO MUSEUM MAINTENANCE WORKER Office Visit Department of Oncology in [address] [place] [phone] Mari Noguera M.D. [address] [place] [phone] 03/17/2023 9:45 AM ANTIQUE AUTO MUSEUM MAINTENANCE WORKER Infusion Department of Infusion Therapy in [address] [place] [address] Mari Noguera M.D. [address] [place] [phone] 03/31/2023 10:10 AM ANTIQUE AUTO MUSEUM MAINTENANCE WORKER Appointment Department of Laboratory Medicine in [address] [address] Mari Noguera M.D. [address] [place] [phone] 04/04/2023 8:20 AM ANTIQUE AUTO MUSEUM MAINTENANCE WORKER Office Visit Department of Oncology in [address] [place] [address] Mari Noguera M.D. [address] [place] [phone] 04/04/2023 9:00 AM ANTIQUE AUTO MUSEUM MAINTENANCE WORKER Infusion Department of Infusion Therapy in [address] [address] Mari Noguera M.D. [address] [place] [phone] 04/13/2023 10:10 AM ANTIQUE AUTO MUSEUM MAINTENANCE WORKER Appointment Department of Laboratory Medicine in [address] [phone] Mari Noguera M.D. [address] [place] [phone] 04/14/2023 9:00 AM ANTIQUE AUTO MUSEUM MAINTENANCE WORKER Infusion Department of Infusion Therapy in [place], [place] [address] [place] [phone] Mari Noguera M.D. [address] [place] [phone] documented as of this encounter Visit Diagnoses Diagnosis Multiple Myeloma Not Having Achieved Remission (HCC) documented in this encounter Additional Health Concerns Infection Onset Date Last Indicated Resolved Time Protective Environment 06/03/2022 06/03/2022 documented as of this encounter Care Teams County Agent Relationship Specialty Start Date End Date Elsewhere, Pcp PCP - General Internal Medicine 04/01/22 documented as of this encounter
--- OUTSIDE RECORDS SUMMARY | 2023-03-08 08:50 | XMS_ITS | Encounter Summary ---
Author Name Unknown Organization [facility] Address [address] [place] [address] Care Team Providers Care Hot Oiler Name Role Phone Elsewhere, Pcp Primary Care Provider Unavailabl e Reason for Visit * Reason Onset Date Comments [facility] unable to fill generic Revlimid for patient 12/20/2022 Encounter Details Date Type Department Care Team (Latest Contact Info) Description 12/20/[address] [facility] [address] [place] [phone] Katelin Vargas, Pharm.D., R.Ph. [address] [place] [address] [facility] unable to fill generic Revlimid for patient Social History Tobacco Use Types Packs/Day Years [...] How often do you attend chur or temple services? 1 to 4 times per year 06/11/2021 Do you belong to any clubs o r organizations such as restorationist groups, unions, fraternal or athletic groups, or [...] Answer Date Recorded PHQ-2 Score 4 11/18/2021 [facility] of Occupat ional Health - Occupational [...] place to sleep or slept in a intermediate (including now)? No 06/11/2021 Nutrition Answer Date [...] as of this encounter Miscellaneous Notes * Addendum Note - Britta Rosa, RAbrahamN. - 12/20/2022 3:38 PM CDTAddended by: BRITTA ROSA on: 12/20/2022 03:38 PM Modules accepted: Orders documented in this encounter Plan of Treatment Upcoming Encounters Date Type Department Care Team (Late st Contact Info) Description 03/16/2023 10:30 AM ICE HOCKEY COACH Appointment Department of Laboratory Medicine in [place], [place] [address] [place] [address] Mari Noguera M.D. [address] [place] [phone] 03/17/2023 8:40 AM ICE HOCKEY COACH Office Visit Department of Oncology in [address] [phone] Mari Noguera M.D. [address] [place] [phone] 03/17/2023 9:45 AM ICE HOCKEY COACH Infusion Department of Infusion Therapy in [address] [phone] Mari Noguera M.D. [address] [place] [phone] 03/31/2023 10:10 AM ICE HOCKEY COACH Appointment Department of Laboratory Medicine in [address] [place] [address] Mari Noguera M.D. [address] [place] [phone] 04/04/2023 8:20 AM ICE HOCKEY COACH Office Visit Department of Oncology in [address] [phone] Mari Noguera M.D. [address] [place] [phone] 04/04/2023 9:00 AM ICE HOCKEY COACH Infusion Department of Infusion Therapy in [address] [phone] Mari Noguera M.D. [address] [place] [phone] 04/13/2023 10:10 AM ICE HOCKEY COACH Appointment Department of Laboratory Medicine in [address] [phone] Mari Noguera M.D. [address] [place] [phone] 04/14/2023 9:00 AM ICE HOCKEY COACH Infusion Department of Infusion Therapy in [address] [phone] Mair Noguera M.D. [address] [place] [phone] documented as of this encounter Visit Diagnoses Diagnosis Multiple Myeloma Not Having Achieved Remission (HCC) documented in this encounter Additional Health Concerns Infection Onset Date Last Indicated Resolved Time Protective Environment 06/03/2022 06/03/2022 documented as of this encounter Care Teams Hot Oiler Relationship Specialty Start Date End Date Elsewhere, Pcp PCP - General Internal Medicine 04/01/22 documented as of this encounter
--- OUTSIDE RECORDS SUMMARY | 2023-03-08 08:51 | XMS_ITS | Encounter Summary ---
Author Name Unknown Organization [facility] Address [address] [place] [address] Care Team Providers Care Expediter Clerk Name Role Phone Elsewhere, Pcp Primary Care Provider Unavailabl e Reason for Visit * Reason Comments Injections * Episode Based Medications (Routine) - Authorized Specialty Diagnoses / Procedures Referred By Guillermina zamora Referred To Contact Diagnoses Multiple Myeloma Not Having Achieved Remission (HCC) Procedures WI ONDANSETRON HCL INJECTION WI DARATUMUMAB, HYALURONIDASE WI BORTEZOMIB INJECTION 1,800 mg on Day 1, 8, 15, 22 for cycles 1 & 2, Day 1, 15 3-6, Day 1 for cycle 7 / 28 day cycles / 17 total visits Mari Noguera M.D. [address] [place] [address] [facility] Region Referral ID Status Reason Start Date Expiration Date V isits Requested Visits Authorized [id number] Authorized 05/28/2021 02/27/2024 31 31 Encounter Details Date Type Department Care Team (Late st Contact Info) Description 12/02/2022 2:15 PM CDT Infusion Department of Infusion Therapy in [place], [place] [address] [place] [phone] Mari Noguera M.D. [address] [place] [phone] Multiple Myeloma Not Having Achieved Remission [...] How often do you attend chur or jew services? 1 to 4 times per year 06/11/2021 Do you belong to any clubs o r organizations such as samaritan groups, unions, fraternal or athletic groups, or [...] PHQ-2 Score 4 11/18/2021 [facility] of Occupat ional [facility] - Occupational Stress Questionnaire Answer Date [...] st Contact Info) Description 03/16/2023 10:30 AM PROP AND EFFECTS DESIGNER Appointment Department of Laboratory Medicine in [address] [phone] Mari Noguera M.D. [address] [place] [phone] 03/17/2023 8:40 AM PROP AND EFFECTS DESIGNER Office Visit Department of Oncology in [address] [phone] Mari Noguera M.D. [address] [place] [phone] 03/17/2023 9:45 AM PROP AND EFFECTS DESIGNER Infusion Department of Infusion Therapy in [address] [phone] Mari Noguera M.D. [address] [place] [phone] 03/31/2023 10:10 AM PROP AND EFFECTS DESIGNER Appointment Department of Laboratory Medicine in [address] [phone] Mari Noguera M.D. [address] [place] [phone] 04/04/2023 8:20 AM PROP AND EFFECTS DESIGNER Office Visit Department of Oncology in [address] [phone] Mari Noguera M.D. [address] [place] [phone] 04/04/2023 9:00 AM PROP AND EFFECTS DESIGNER Infusion Department of Infusion Therapy in [address] [phone] Mari Noguera M.D. [address] [place] [phone] 04/13/2023 10:10 AM PROP AND EFFECTS DESIGNER Appointment Department of Laboratory Medicine in [address] [phone] Mari Noguera M.D. [address] [place] [phone] 04/14/2023 9:00 AM PROP AND EFFECTS DESIGNER Infusion Department of Infusion Therapy in [address] [phone] Mari Noguera M.D. [address] [place] [phone] documented as of this encounter Visit Diagnoses [...] BSA from Measured weight), subcutaneous, Once, On Mon12/02/22 at 1315, For 1 dose, Rotate injection site. Given 12/02/2022 1:46 PM CDT 2.5 mg Right Upper Abdomen documented in this encounter Additional Health Concerns Infection Onset Date Last Indicated Resolved Time Protective Environment 06/03/2022 06/03/2022 documented as of this encounter Care Teams Expediter Clerk Relationship Specialty Start Date End Date Elsewhere, Pcp PCP - General Internal Medicine 04/01/22 documented as of this encounter
--- OUTSIDE RECORDS SUMMARY | 2023-03-08 08:51 | XMS_ITS | Encounter Summary ---
Author Name Unknown Organization [facility] Address [address] [place] [address] Care Team Providers Care Technical Sourcing Recruiter Name Role Phone Elsewhere, Pcp Primary Care [...] / 17 total visits Mari Noguera M.D. [address] [place] [phone] [facility] Region Referral ID Status Reason Start Date Expiration Date V isits Requested Visits Authorized [id number] Authorized 05/28/2021 02/27/2024 31 31 Encounter Details Date Type Department Care Team (Late st Contact Info) Description 11/22/2022 9:45 AM CDT Infusion Department of Infusion Therapy in [address] [phone] Mari Noguera M.D. [address] [place] [phone] Multiple Myeloma Not Having Achieved Remission (HCC); Transplant Stem Cell (HCC); Multiple Myeloma In [...] week 06/11/2021 How often do you attend [facility] or mandaen services? 1 to 4 times per year 06/11/2021 Do you belong to any clubs o r organizations such as rastafari groups, unions, fraternal or athletic groups, or [...] Answer Date Recorded PHQ-2 Score 4 11/18/2021 [facility] [place] [facility] - Occupational Stress Questionnaire Answer [...] Answer Date Recorded Dental: Regular Dentist Yes 04/15/20 22 Employment Answer Date Recorded Employment status Retired [...] Miscellaneous Notes * Addendum Note - Jonna Encarnacion, RAbrahamN. - 11/22/2022 9:45 AM CDTAddended by: JONNA ENCARNACION on: 11/22/2022 10:44 AM Modules accepted: Orders documented in this encounter Plan of Treatment Upcoming Encounters Date Type Department Care Team (Late st Contact Info) Description 03/16/2023 10:30 AM GROCERY WORKER Appointment Department of Laboratory Medicine in [address] [phone] Mari Noguera M.D. [address] [place] [phone] 03/17/2023 8:40 AM GROCERY WORKER Office Visit Department of Oncology in [address] [phone] Mari Noguera M.D. [address] [place] [phone] 03/17/2023 9:45 AM GROCERY WORKER Infusion Department of Infusion Therapy in [address] [phone] Mari Noguera M.D. [address] [place] [phone] 03/31/2023 10:10 AM GROCERY WORKER Appointment Department of Laboratory Medicine in [address] [place] [address] Mari Noguera M.D. [address] [place] [phone] 04/04/2023 8:20 AM GROCERY WORKER Office Visit Department of Oncology in [address] [phone] Mari Noguera M.D. [address] [place] [phone] 04/04/2023 9:00 AM GROCERY WORKER Infusion Department of Infusion Therapy in [address] [phone] Mari Noguera M.D. [address] [place] [address] [phone] 04/13/2023 10:10 AM GROCERY WORKER Appointment Department of Laboratory Medicine in [address] [place] [phone] Mari Noguera M.D. [address] [place] [phone] 04/14/2023 9:00 AM GROCERY WORKER Infusion Department of Infusion Therapy in [address] [phone] Mari Noguera M.D. [address] [place] [phone] documented as of this encounter Visit Diagnoses Diagnosis Multiple Myeloma Not Having Achieved Remission (HCC) Transplant Stem Cell (HCC) Multiple Myeloma In Remission (HCC) documented in this encounter Additional Health Concerns Infection Onset Date Last Indicated Resolved Time Protective Environment 06/03/2022 06/03/2022 documented as of this encounter Care Teams Technical Sourcing Recruiter Relationship Specialty Start Date End Date Elsewhere, Pcp PCP - General Internal Medicine 04/01/22 documented as of this encounter
--- OUTSIDE RECORDS SUMMARY | 2023-03-08 08:51 | XMS_ITS | Encounter Summary ---
Author Name Unknown Organization [facility] Address [address] [place] [address] Care Team Providers Care Route Agent Name Role Phone Elsewhere, Pcp Primary [...] 17 total visits Mari Noguera M.D. [address] [place] [address] [facility] Region Referral ID Status Reason Start Date Expiration Date V isits Requested Visits Authorized [id number] Authorized 05/28/2021 02/27/2024 31 31 Encounter Details Date Type Department Care Team (Latest Contact Info) Description 12/02/2022 12:19 PM CDT - 12/02/2022 11:59 PM CDT Hospital Encounter Department of Laboratory Medicine in [place], [place] [address] [place] [phone] Mari Noguera M.D. [address] [place] [phone] Multiple Myeloma Not Having Achieved [...] week 06/11/2021 How often do you attend [facility] or hindu services? 1 to 4 times per year 06/11/2021 Do you belong to any clubs o r organizations such as mormon groups, unions, fraternal or athletic groups, or [...] break, chew, or open. 21 capsule 0 11/14/2022 12/13/2022 penicillin V potassium (VEETIDS) 500 mg tablet Take 1 tablet (500 mg total) by mouth 2 (two) times a day. 60 tablet 11 12/01/2021 12/08/2022 documented as of this encounter Plan of Treatment Upcoming Encounters Date Type Department Care Team (Late st Contact Info) Description 03/16/2023 10:30 AM SEASONAL SALES ASSOCIATE Appointment Department of Laboratory Medicine in [place] [address] [place] [address] Mari Noguera M.D. [address] [place] [phone] 03/17/2023 8:40 AM SEASONAL SALES ASSOCIATE Office Visit Department of Oncology in [place], [place] [phone] Mari Noguera M.D. [address] [place] [phone] 03/17/2023 9:45 AM SEASONAL SALES ASSOCIATE Infusion Department of Infusion Therapy in [address] [phone] Mari Noguera M.D. [address] [place] [phone] 03/31/2023 10:10 AM SEASONAL SALES ASSOCIATE Appointment Department of Laboratory Medicine in [address] [phone] Mari Noguera M.D. [address] [place] [address] [phone] 04/04/2023 8:20 AM SEASONAL SALES ASSOCIATE Office Visit Department of Oncology in [address] [phone] Mari Noguera M.D. [address] [place] [address] [phone] 04/04/2023 9:00 AM SEASONAL SALES ASSOCIATE Infusion Department of Infusion Therapy in [address] [phone] Mari Noguera M.D. [address] [place] [phone] 04/13/2023 10:10 AM SEASONAL SALES ASSOCIATE Appointment Department of Laboratory Medicine in [place], [place] [address] [place] [address] Mari Noguera M.D. [address] [place] [phone] 04/14/2023 9:00 AM SEASONAL SALES ASSOCIATE Infusion Department of Infusion Therapy in [place], [place] [address] [place] [phone] Mari Noguera M.D. [address] [place] [phone] documented as of this encounter Procedures Procedure Name Priority Date/Time Associated Diagnosis Comments MONOCLONAL PROTEIN STUDY (MPSS), EXPANDED PANEL, S Routine 12/02/2022 12:38 PM CDT Multiple Myeloma Not Having Achieved Remission (HCC) CBC WITH DIFFERENTIAL, B Routine 12/02/2022 12:38 PM CDT Multiple Myeloma Not Having Achieved Remission (HCC) documented in this encounter Results * (ABNORMAL) Monoclonal Protein Study, Expanded Panel (12/02/2022 12:38 PM CDT) Total Protein, S 7.2 6.3 - 7.9 g/dL 12/02/2022 9:55 PM CDT ECLR [place] Free Light Chain, S 2.46(H) 0.3300 - 1.94 mg/dL 12/05/2022 7:40 AM CDT ECLR Lambda Free Light Chain, S 1.68 0.5700 - 2.63 mg/dL 12/05/2022 7:40 AM CDT ECLR [place]/Lambda FLC Ratio 1.46 0.2600 - 1.65 12/05/2022 7:40 AM CDT ECLR Albumin 4.8(H) 3.4 - 4.7 g/dL 12/05/2022 3:27 PM CDT ECLR Alpha-1 Globulin 0.2 0.1 - 0.3 g/dL 12/05/2022 3:27 PM CDT ECLR Alpha-2 Globulin 0.9 0.6 - 1.0 g/dL 12/05/2022 3:27 PM CDT ECLR Beta-Globulin 0.7 0.7 - 1.2 g/dL 12/05/2022 3:27 PM CDT ECLR Gamma-Globulin 0.6 0.6 - 1.6 g/dL 12/05/2022 3:27 PM CDT ECLR A/G Ratio 2.05 12/05/2022 3:27 PM CDT ECLR Impression Small abnormality in gamma fraction. Reviewed and interpreted by: ??Jeannie Rogers M.D. 12/05/2022 3:27 PM CDT ECLR Flag, Immunofixation Positive(A) Negative 12/05/2022 3:25 PM CDT ECLR Immunofixation Monoclonal IgG lambda. Reviewed and interpreted by: ??Jeannie Rogers M.D. 12/05/2022 3:25 PM CDT ECLR Blood (Blood, Venous) 12/02/2022 12:38 PM CDT 12/02/2022 9:33 PM CDT Narrative [facility] - 12/05/2022 3:27 PM CDT Specimen Information: Specimen ID: [id number] Specimen Type: Blood Specimen Collection Start Date: 12/02/2022 12:38 PM Specimen Received Date: 12/02/2022 ??9:33 PM Specimen ID: [id number] Specimen Type: Blood Specimen Collection Start Date: 12/02/2022 12:38 PM Specimen Received Date: 12/02/2022 ??9:33 PM Specimen ID: [id number] Specimen Type: Blood Specimen Collection Start Date: 12/02/2022 12:38 PM Specimen Received Date: 12/02/2022 ??9:33 PM Mari Noguera M.D. LAB BLOOD ADD-ON [facility] [address] [place] [address], [facility] ECLR [facility] in [address] [address] [address] [place] [phone] * (ABNORMAL) CBC with Differential, Blood (12/02/2022 12:38 PM CDT) Hemoglobin 13.3 11.6 - 15.0 g/dL 12/02/2022 12:45 PM CDT [facility] Hematocrit 42.8 35.5 - 44.9 % 12/02/2022 12:45 PM CDT [facility] Erythrocytes 4.36 3.92 - 5.13 x10(12)/L 12/02/2022 12:45 PM CDT [facility] MCV 98.2(H) 78.2 - 97.9 fL 12/02/2022 12:45 PM CDT [facility] RBC Distrib Width 15.6 12.2 - 16.1 % 12/02/2022 12:45 PM CDT [facility] Platelet Count 97(L) 157 - 371 x10(9)/L 12/02/2022 12:45 PM CDT [facility] Leukocytes 3.5 3.4 - 9.6 x10(9)/L 12/02/2022 12:45 PM CDT [facility] Neutrophils 2.06 1.56 - 6.45 x10(9)/L 12/02/2022 12:45 PM CDT [facility] Lymphocytes 1.12 0.95 - 3.07 x10(9)/L 12/02/2022 12:45 PM CDT [facility] Monocytes 0.16(L) 0.26 - 0.81 x10(9)/L 12/02/2022 12:45 PM CDT [facility] Eosinophils 0.11 0.03 - 0.48 x10(9)/L 12/02/2022 12:45 PM CDT [facility] Basophils <0.03 0.01 - 0.08 x10(9)/L 12/02/2022 12:45 PM CDT [facility] Blood (Blood, Venous) 12/02/2022 12:38 PM CDT 12/02/2022 12:39 PM CDT Mari Noguera M.D. LAB BLOOD ADD-ON [facility] [address] [place] [address], [facility] RDWG [facility] in [place] [address] [phone] documented in this encounter Visit Diagnoses Diagnosis Multiple Myeloma Not Having Achieved Remission (HCC) documented in this encounter Additional Health Concerns Infection Onset Date Last Indicated Resolved Time Protective Environment 06/03/2022 06/03/2022 documented as of this encounter Care Teams Route Agent Relationship Specialty Start Date End Date Elsewhere, Pcp PCP - General Internal Medicine 04/01/22 documented as of this encounter
--- OUTSIDE RECORDS SUMMARY | 2023-03-08 08:51 | XMS_ITS | Encounter Summary ---
Author Name Unknown Organization [facility] Address [address] [place] [address] Care Team Providers Care Nuclear Auxiliary Operator Name Role Phone Elsewhere, Pcp Primary Care Provider Unavailabl e Reason for Visit * Reason Onset Date Comments Prescree Immunization Review 12/02/2022 Encounter Details Date Type Department Care Team (Latest Contact Info) Description 12/02/2022 Clinical Communication Section of Infectious Diseases in [place], [place] [address] [place] [address] Daren Juares, RAbrahamN. [address] [place] [address] Prescree Immunization Review Social History Tobacco Use Types Packs/Day Years [...] any clubs o r organizations such as denominational groups, unions, fraternal or athletic groups, or [...] Answer Date Recorded PHQ-2 Score 4 11/18/2021 [facility] - Occupational Stress Questionnaire Answer Date [...] encounter Miscellaneous Notes * Telephone Encounter - Daren Juares R.N. - 12/02/2022 10:44 AM CDT Pre-Appt Vaccine Chart Review Pt Type: Post SCT Date of Transplant 12/02/2021 Visit # 2 Pt is Immunosuppressed: Yes Vaccine Hx in Epic: Yes Titers Completed: No Vaccines Ordered: SCT Visit #2 Additional Vaccines Needed: COVID Missing Orders: Can order via Protocol Additional Notes: documented in this encounter Plan of Treatment Upcoming Encounters Date Type Department Care Team (Late st Contact Info) Description 03/16/2023 10:30 AM PROSECUTING ATTORNEY Appointment Department of Laboratory Medicine in [address] [address] Mari Noguera M.D. [address] [place] [phone] 03/17/2023 8:40 AM PROSECUTING ATTORNEY Office Visit Department of Oncology in [address] [phone] Mari Noguera M.D. [address] [place] [phone] 03/17/2023 9:45 AM PROSECUTING ATTORNEY Infusion Department of Infusion Therapy in [address] [phone] Mari Noguera M.D. [address] [place] [phone] 03/31/2023 10:10 AM PROSECUTING ATTORNEY Appointment Department of Laboratory Medicine in [address] [address] Mari Noguera M.D. [address] [place] [phone] 04/04/2023 8:20 AM PROSECUTING ATTORNEY Office Visit Department of Oncology in [address] [phone] Mari Noguera M.D. [address] [place] [phone] 04/04/2023 9:00 AM PROSECUTING ATTORNEY Infusion Department of Infusion Therapy in [place] [address] [place] [phone] Mari Noguera M.D. [address] [place] [phone] 04/13/2023 10:10 AM PROSECUTING ATTORNEY Appointment Department of Laboratory Medicine in [address] [place] [phone] Mari Noguera M.D. [address] [place] [phone] 04/14/2023 9:00 AM PROSECUTING ATTORNEY Infusion Department of Infusion Therapy in [place] [address] [place] [phone] Mari Noguera M.D. [address] [place] [phone] documented as of this encounter Visit Diagnoses Not on filedocumented in this encounter Additional Health Concerns Infection Onset Date Last Indicated Resolved Time Protective Environment 06/03/2022 06/03/2022 documented as of this encounter Care Teams Nuclear Auxiliary Operator Relationship Specialty Start Date End Date Elsewhere, Pcp PCP - General Internal Medicine 04/01/22 documented as of this encounter
--- OUTSIDE RECORDS SUMMARY | 2023-03-08 08:51 | XMS_ITS | Encounter Summary ---
Author Name Unknown Organization [facility] Address [address] [place] [address] Care Team Providers Care Utility Aide Name Role Phone Elsewhere, Pcp Primary Care Provider Unavailabl e Reason for Visit * Reason Comments Med Refill Encounter Details Date Type Department Care Team (Late st Contact Info) Description 11/14/2022 Refill Department of Oncology in [place], [place] [address] [place] [phone] Mari Noguera M.D. [address] [place] [address] Med Refill Social History Tobacco [...] How often do you attend [facility] or mosque services? 1 to 4 times per year 06/11/2021 Do you belong to any clubs o r organizations such as anabaptist groups, unions, fraternal or athletic groups, or [...] Date Recorded PHQ-2 Score 4 11/18/2021 [facility] ionsc Health - Occupational Stress Questionnaire Answer Date [...] st Contact Info) Description 03/16/2023 10:30 AM INTERNET ECOMMERCE SPECIALIST Appointment Department of Laboratory Medicine in [place] [address] [place] [phone] Mari Noguera M.D. [address] [place] [phone] 03/17/2023 8:40 AM INTERNET ECOMMERCE SPECIALIST Office Visit Department of Oncology in [address] [place] [phone] Mari Noguera M.D. [address] [place] [phone] 03/17/2023 9:45 AM INTERNET ECOMMERCE SPECIALIST Infusion Department of Infusion Therapy in [address] [place] [address] Mari Noguera M.D. [address] [place] [phone] 03/31/2023 10:10 AM INTERNET ECOMMERCE SPECIALIST Appointment Department of Laboratory Medicine in [address] [phone] Mari Noguera M.D. [address] [place] [phone] 04/04/2023 8:20 AM INTERNET ECOMMERCE SPECIALIST Office Visit Department of Oncology in [address] [place] [address] Mari Noguera M.D. [address] [place] [phone] 04/04/2023 9:00 AM INTERNET ECOMMERCE SPECIALIST Infusion Department of Infusion Therapy in [address] [phone] Mari Noguera M.D. [address] [place] [phone] 04/13/2023 10:10 AM INTERNET ECOMMERCE SPECIALIST Appointment Department of Laboratory Medicine in [address] [phone] Mari Noguera M.D. [address] [place] [phone] 04/14/2023 9:00 AM INTERNET ECOMMERCE SPECIALIST Infusion Department of Infusion Therapy in [place], [place] [address] [place] [phone] Mari Noguera M.D. [address] [place] [phone] documented as of this encounter Visit Diagnoses Diagnosis Multiple Myeloma Not Having Achieved Remission (HCC) documented in this encounter Additional Health Concerns Infection Onset Date Last Indicated Resolved Time Protective Environment 06/03/2022 06/03/2022 documented as of this encounter Care Teams Utility Aide Relationship Specialty Start Date End Date Elsewhere, Pcp PCP - General Internal Medicine 04/01/22 documented as of this encounter
--- OUTSIDE RECORDS SUMMARY | 2023-03-08 08:51 | XMS_ITS | Encounter Summary ---
Author Name Unknown Organization [facility] Address [address] [place] [address] Care Team Providers Care Beet Topper Name Role Phone Elsewhere, Pcp Primary Care Provider Unavailabl e Reason for Visit * Episode Based Medications (Routine) - Authorized Specialty Diagnoses / Procedures Referred By Guillermina zamora Referred To Contact Diagnoses Multiple Myeloma Not Having Achieved Remission (HCC) Procedures TN ONDANSETRON HCL INJECTION TN DARATUMUMAB, HYALURONIDASE TN BORTEZOMIB INJECTION 1,800 mg on Day 1, 8, 15, 22 for cycles 1 & 2, Day 1, 15 3-6, Day 1 for cycle 7 / 28 day cycles / 17 total visits Mari Noguera M.D. [address] [place] [address] [facility] Region Referral ID Status Reason Start Date Expiration Date V isits Requested Visits Authorized [id number] Authorized 05/28/2021 02/27/2024 31 31 Encounter Details Date Type Department Care Team (Latest Contact Info) Description 12/01/2022 9:46 AM CDT - 12/01/2022 11:59 PM CDT Hospital Encounter Department of Laboratory Medicine in [place], [place] [address] [facility] [place] [phone] Mari Noguera M.D. [address] [place] [address] Multiple Myeloma Not Having Achieved [...] week 06/11/2021 How often do you attend [facility] or mormonism services? 1 to 4 times [...] Answer Date Recorded PHQ-2 Score 4 11/18/2021 [facility] of Occupat ional Health - Occupational [...] st Contact Info) Description 03/16/2023 10:30 AM 1ST PRESSMAN Appointment Department of Laboratory Medicine in [place] [address] [place] [address] Mari Noguera M.D. [address] [facility] [place] [phone] 03/17/2023 8:40 AM 1ST PRESSMAN Office Visit Department of Oncology in [place], [place] [phone] Mari Noguera M.D. [address] [place] [phone] 03/17/2023 9:45 AM 1ST PRESSMAN Infusion Department of Infusion Therapy in [address] [phone] Mari Noguera M.D. [address] [place] [phone] 03/31/2023 10:10 AM 1ST PRESSMAN Appointment Department of Laboratory Medicine in [address] [phone] Mari Noguera M.D. [address] [place] [phone] 04/04/2023 8:20 AM 1ST PRESSMAN Office Visit Department of Oncology in [address] [phone] Mari Noguera M.D. [address] [place] [phone] 04/04/2023 9:00 AM 1ST PRESSMAN Infusion Department of Infusion Therapy in [address] [phone] Mari Noguera M.D. [address] [place] [phone] 04/13/2023 10:10 AM 1ST PRESSMAN Appointment Department of Laboratory Medicine in [place], [place] [address] [facility] [place] [address] Mari Noguera M.D. [address] [place] [phone] 04/14/2023 9:00 AM 1ST PRESSMAN Infusion Department of Infusion Therapy in [address] [phone] Mari Noguera M.D. [address] [place] [phone] documented as of this encounter Procedures Procedure Name Priority Date/Time Associated Diagnosis Comments CBC WITH DIFFERENTIAL, B Routine 12/01/2022 10:04 AM CDT Multiple Myeloma Not Having Achieved Remission (HCC) COMPREHENSIVE METABOLIC PANEL, S/P Routine 12/01/2022 10:04 AM CDT Multiple Myeloma Not Having Achieved Remission (HCC) documented in this encounter Results * (ABNORMAL) Comprehensive Metabolic Panel (12/01/2022 10:04 AM CDT) Potassium, P 4.2 3.6 - 5.2 mmol/L 12/01/2022 2:00 PM CDT OWAT Sodium, P 139 135 - 145 mmol/L 12/01/2022 2:00 PM CDT OWAT Chloride, P 101 98 - 107 mmol/L 12/01/2022 2:00 PM CDT OWAT Bicarbonate, P 28 22 - 29 mmol/L 12/01/2022 2:00 PM CDT OWAT Anion Gap, P 10 7 - 15 12/01/2022 2:00 PM CDT OWAT BUN (Blood Urea Nitrogen), P 31(H) 6 - 21 mg/dL 12/01/2022 2:00 PM CDT OWAT Creatinine 1.22(H) 0.59 - 1.04 mg/dL 12/01/2022 2:00 PM CDT OWAT Estimated GFR (eGFR) 46(L) >=60 mL/min/BS A 12/01/2022 2:00 PM CDT OWAT Comment: Estimated GFR calculated using the 2020 CKD_EPI creatinine equation. Calcium, Total, P 10.2 8.8 - 10.2 mg/dL 12/01/2022 2:00 PM CDT OWAT Glucose, P 95 70 - 140 mg/dL 12/01/2022 2:00 PM CDT OWAT Protein, Total, P 6.9 6.3 - 7.9 g/dL 12/01/2022 2:00 PM CDT OWAT Albumin, P 4.3 3.5 - 5.0 g/dL 12/01/2022 2:00 PM CDT OWAT Aspartate Aminotransferase (AST), P 20 8 - 43 U/L 12/01/2022 2:00 PM CDT OWAT Alkaline Phosphatase, P 73 35 - 104 U/L 12/01/2022 2:00 PM CDT OWAT Alanine Aminotransferase (ALT), P 13 7 - 45 U/L 12/01/2022 2:00 PM CDT OWAT Bilirubin, Total, P 0.2 0.0 - 1.2 mg/dL 12/01/2022 2:00 PM CDT OWAT Blood (Blood, Venous) 12/01/2022 10:04 AM CDT 12/01/2022 1:14 PM CDT Mari Noguera M.D. LAB BLOOD ADD-ON Performing Organization Address City/State/[facility] Co de Phone Number [facility] [address] [place] [phone], [facility] OWAT [facility] [place] [address] [place] [phone] * (ABNORMAL) CBC with Differential, Blood (12/01/2022 10:04 AM CDT) Hemoglobin 11.8 11.6 - 15.0 g/dL 12/01/2022 10:07 AM CDT FB60 Hematocrit 38.0 35.5 - 44.9 % 12/01/2022 10:07 AM CDT FB60 Erythrocytes 3.87(L) 3.92 - 5.13 x10(12)/L 12/01/2022 10:07 AM CDT FB60 MCV 98.2(H) 78.2 - 97.9 fL 12/01/2022 10:07 AM CDT FB60 RBC Distrib Width 15.7 12.2 - 16.1 % 12/01/2022 10:07 AM CDT FB60 Platelet Count 88(L) 157 - 371 x10(9)/L 12/01/2022 10:07 AM CDT FB60 Leukocytes 2.9(L) 3.4 - 9.6 x10(9)/L 12/01/2022 10:07 AM CDT FB60 Neutrophils 1.47(L) 1.56 - 6.45 x10(9)/L 12/01/2022 10:07 AM CDT FB60 Lymphocytes 0.96 0.95 - 3.07 x10(9)/L 12/01/2022 10:07 AM CDT FB60 Monocytes 0.26 0.26 - 0.81 x10(9)/L 12/01/2022 10:07 AM CDT FB60 Eosinophils 0.15 0.03 - 0.48 x10(9)/L 12/01/2022 10:07 AM CDT FB60 Basophils <0.04 0.01 - 0.08 x10(9)/L 12/01/2022 10:07 AM CDT FB60 Blood (Blood, Venous) 12/01/2022 10:04 AM CDT 12/01/2022 10:04 AM CDT Mari Noguera M.D. LAB BLOOD ADD-ON Performing Organization Address City/State/[facility] Co de Phone Number [facility] [address] [place] [address], [facility] FB60 [facility] [place] [address] [place] [address] documented in this encounter Visit Diagnoses Diagnosis Multiple Myeloma Not Having Achieved Remission (HCC) documented in this encounter Additional Health Concerns Infection Onset Date Last Indicated Resolved Time Protective Environment 06/03/2022 06/03/2022 documented as of this encounter Care Teams Beet Topper Relationship Specialty Start Date End Date Elsewhere, Pcp PCP - General Internal Medicine 04/01/22 documented as of this encounter
--- OUTSIDE RECORDS SUMMARY | 2023-03-08 08:51 | XMS_ITS | Encounter Summary ---
Author Name Unknown Organization [facility] Address [address] [place] [address] Care Team Providers Care Buckle Gluer Name Role Phone Elsewhere, Pcp Primary Care Provider Unavailabl e Reason for Visit * Reason Comments Chemotherapy velcade * Episode Based Medications (Routine) - Authorized Specialty Diagnoses / Procedures Referred By Guillermina zamora Referred To Contact Diagnoses Multiple Myeloma Not Having Achieved Remission (HCC) Procedures GA ONDANSETRON HCL INJECTION GA DARATUMUMAB, HYALURONIDASE GA BORTEZOMIB INJECTION 1,800 mg on Day 1, 8, 15, 22 for cycles 1 & 2, Day 1, 15 3-6, Day 1 for cycle 7 / 28 day cycles / 17 total visits Mari Noguera M.D. [address] [place] [address] [facility] Region Referral ID Status Reason Start Date Expiration Date V isits Requested Visits Authorized [id number] Authorized 05/28/2021 02/27/2024 31 31 Encounter Details Date Type Department Care Team (Late st Contact Info) Description 11/11/2022 12:30 PM CDT Infusion Department of Infusion Therapy in [address] [phone] Mari Noguera M.D. [address] [place] [phone] Multiple Myeloma Not Having Achieved Remission [...] How often do you attend chur or gnosticist services? 1 to 4 times per year 06/11/2021 Do you belong to any clubs o r organizations such as alevism groups, unions, fraternal or athletic groups, or [...] [facility] - Occupational Stress Questionnaire Answer Date Recorded [...] st Contact Info) Description 03/16/2023 10:30 AM GROUNDS CARETAKER Appointment Department of Laboratory Medicine in [address] [address] Mari Noguera M.D. [address] [place] [phone] 03/17/2023 8:40 AM GROUNDS CARETAKER Office Visit Department of Oncology in [address] [phone] Mari Noguera M.D. [address] [place] [phone] 03/17/2023 9:45 AM GROUNDS CARETAKER Infusion Department of Infusion Therapy in [address] [phone] Mari Noguera M.D. [address] [place] [phone] 03/31/2023 10:10 AM GROUNDS CARETAKER Appointment Department of Laboratory Medicine in [address] [address] Mari Noguera M.D. [address] [place] [phone] 04/04/2023 8:20 AM GROUNDS CARETAKER Office Visit Department of Oncology in [address] [place] [phone] Mari Noguera M.D. [address] [place] [phone] 04/04/2023 9:00 AM GROUNDS CARETAKER Infusion Department of Infusion Therapy in [address] [phone] Mari Noguera M.D. [address] [place] [phone] 04/13/2023 10:10 AM GROUNDS CARETAKER Appointment Department of Laboratory Medicine in [address] [place] [address] Mari Noguera M.D. [address] [place] [phone] 04/14/2023 9:00 AM GROUNDS CARETAKER Infusion Department of Infusion Therapy in [address] [phone] Mari Noguera M.D. [address] [place] [phone] documented as of this encounter Visit Diagnoses [...] BSA from Measured weight), subcutaneous, Once, On Mon11/11/22 at 1230, For 1 dose, Rotate injection site. Given 11/11/2022 12:23 PM CDT 2.5 mg Left Upper Abdomen documented in this encounter Additional Health Concerns Infection Onset Date Last Indicated Resolved Time Protective Environment 06/03/2022 06/03/2022 documented as of this encounter Care Teams Buckle Gluer Relationship Specialty Start Date End Date Elsewhere, Pcp PCP - General Internal Medicine 04/01/22 documented as of this encounter
--- OUTSIDE RECORDS SUMMARY | 2023-03-08 08:51 | XMS_ITS | Encounter Summary ---
Author Name Unknown Organization [facility] Address [address] [place] [address] Care Team Providers Care Oracle Database Manager Name Role Phone Elsewhere, Pcp Primary Care Provider Unavailabl e Reason for Visit * Episode Based Medications (Routine) - Authorized Specialty Diagnoses / Procedures Referred By Guillermina zamora Referred To Contact Diagnoses Multiple Myeloma Not Having Achieved Remission (HCC) Procedures MI ONDANSETRON HCL INJECTION MI DARATUMUMAB, HYALURONIDASE MI BORTEZOMIB INJECTION 1,800 mg on Day 1, 8, 15, 22 for cycles 1 & 2, Day 1, 15 3-6, Day 1 for cycle 7 / 28 day cycles / 17 total visits Mari Noguera M.D. [address] [place] [address] [facility] Region Referral ID Status Reason Start Date Expiration Date V isits Requested Visits Authorized [id number] Authorized 05/28/2021 02/27/2024 31 31 Encounter Details Date Type Department Care Team (Latest Contact Info) Description 11/18/2022 10:01 AM CDT - 11/18/2022 11:59 PM CDT Hospital Encounter Department of Laboratory Medicine in [place], [place] [address] [facility] [place] [address] Mari Noguera M.D. [address] [place] [address] Multiple Myeloma Not Having Achieved [...] week 06/11/2021 How often do you attend [facility] or anglican services? 1 to 4 times per year 06/11/2021 Do you belong to any clubs o r organizations such as yazidism groups, unions, fraternal or athletic groups, or [...] Answer Date Recorded PHQ-2 Score 4 11/18/2021 [facility] of Occupat ional Health - Occupational [...] st Contact Info) Description 03/16/2023 10:30 AM MACHINE OPERATOR REPLANTER Appointment Department of Laboratory Medicine in [place] [address] [place] [address] Mari Noguera M.D. [address] [facility] [place] [phone] 03/17/2023 8:40 AM MACHINE OPERATOR REPLANTER Office Visit Department of Oncology in [place], [place] [facility] [place] [phone] Mari Noguera M.D. [address] [place] [phone] 03/17/2023 9:45 AM MACHINE OPERATOR REPLANTER Infusion Department of Infusion Therapy in [address] [phone] Mari Noguera M.D. [address] [place] [phone] 03/31/2023 10:10 AM MACHINE OPERATOR REPLANTER Appointment Department of Laboratory Medicine in [address] [address] Mari Noguera M.D. [address] [place] [phone] 04/04/2023 8:20 AM MACHINE OPERATOR REPLANTER Office Visit Department of Oncology in [address] [phone] Mari Noguera M.D. [address] [place] [phone] 04/04/2023 9:00 AM MACHINE OPERATOR REPLANTER Infusion Department of Infusion Therapy in [address] [phone] Mari Noguera M.D. [address] [place] [phone] 04/13/2023 10:10 AM MACHINE OPERATOR REPLANTER Appointment Department of Laboratory Medicine in [place], [place] [address] [facility] [place] [address] Mari Noguera M.D. [address] [place] [phone] 04/14/2023 9:00 AM MACHINE OPERATOR REPLANTER Infusion Department of Infusion Therapy in [address] [phone] Mari Noguera M.D. [address] [place] [phone] documented as of this encounter Procedures Procedure Name Priority Date/Time Associated Diagnosis Comments CBC WITH DIFFERENTIAL, B Routine 11/18/2022 10:12 AM CDT Multiple Myeloma Not Having Achieved Remission (HCC) COMPREHENSIVE METABOLIC PANEL, S/P Routine 11/18/2022 10:12 AM CDT Multiple Myeloma Not Having Achieved Remission (HCC) documented in this encounter Results * (ABNORMAL) Comprehensive Metabolic Panel (11/18/2022 10:12 AM CDT) Potassium, P 4.0 3.6 - 5.2 mmol/L 11/18/2022 12:35 PM CDT OWAT Sodium, P 141 135 - 145 mmol/L 11/18/2022 12:35 PM CDT OWAT Chloride, P 101 98 - 107 mmol/L 11/18/2022 12:35 PM CDT OWAT Bicarbonate, P 27 22 - 29 mmol/L 11/18/2022 12:35 PM CDT OWAT Anion Gap, P 13 7 - 15 11/18/2022 12:35 PM CDT OWAT BUN (Blood Urea Nitrogen), P 32(H) 6 - 21 mg/dL 11/18/2022 12:35 PM CDT OWAT Creatinine 1.31(H) 0.59 - 1.04 mg/dL 11/18/2022 12:35 PM CDT OWAT Estimated GFR (eGFR) 42(L) >=60 mL/min/BS A 11/18/2022 12:35 PM CDT OWAT Comment: Estimated GFR calculated using the 2020 CKD_EPI creatinine equation. Calcium, Total, P 10.0 8.8 - 10.2 mg/dL 11/18/2022 12:35 PM CDT OWAT Glucose, P 95 70 - 140 mg/dL 11/18/2022 12:35 PM CDT OWAT Protein, Total, P 6.7 6.3 - 7.9 g/dL 11/18/2022 12:35 PM CDT OWAT Albumin, P 4.3 3.5 - 5.0 g/dL 11/18/2022 12:35 PM CDT OWAT Aspartate Aminotransferase (AST), P 18 8 - 43 U/L 11/18/2022 12:35 PM CDT OWAT Alkaline Phosphatase, P 70 35 - 104 U/L 11/18/2022 12:35 PM CDT OWAT Alanine Aminotransferase (ALT), P 16 7 - 45 U/L 11/18/2022 12:35 PM CDT OWAT Bilirubin, Total, P 0.3 <=1.2 mg/dL 11/18/2022 12:35 PM CDT OWAT Blood (Blood, Venous) 11/18/2022 10:12 AM CDT 11/18/2022 11:15 AM CDT Mari Noguera M.D. LAB BLOOD ADD-ON [facility] [address] [place] [address], [facility] OWAT [facility] [address] [place] [address] * (ABNORMAL) CBC with Differential, Blood (11/18/2022 10:12 AM CDT) Hemoglobin 11.7 11.6 - 15.0 g/dL 11/18/2022 10:42 AM CDT FB60 Hematocrit 37.4 35.5 - 44.9 % 11/18/2022 10:42 AM CDT FB60 Erythrocytes 3.86(L) 3.92 - 5.13 x10(12)/L 11/18/2022 10:42 AM CDT FB60 MCV 96.9 78.2 - 97.9 fL 11/18/2022 10:42 AM CDT FB60 RBC Distrib Width 15.7 12.2 - 16.1 % 11/18/2022 10:42 AM CDT FB60 Platelet Count 58(L) 157 - 371 x10(9)/L 11/18/2022 10:42 AM CDT FB60 Leukocytes 2.9(L) 3.4 - 9.6 x10(9)/L 11/18/2022 10:42 AM CDT FB60 Neutrophils 1.32(L) 1.56 - 6.45 x10(9)/L 11/18/2022 10:42 AM CDT FB60 Lymphocytes 0.96 0.95 - 3.07 x10(9)/L 11/18/2022 10:42 AM CDT FB60 Monocytes 0.35 0.26 - 0.81 x10(9)/L 11/18/2022 10:42 AM CDT FB60 Eosinophils 0.24 0.03 - 0.48 x10(9)/L 11/18/2022 10:42 AM CDT FB60 Basophils <0.04 0.01 - 0.08 x10(9)/L 11/18/2022 10:42 AM CDT FB60 Blood (Blood, Venous) 11/18/2022 10:12 AM CDT 11/18/2022 10:12 AM CDT Mari Noguera M.D. LAB BLOOD ADD-ON [facility] [address] [place] [address], [facility] FB60 [facility] [address] [place] [address] documented in this encounter Visit Diagnoses Diagnosis Multiple Myeloma Not Having Achieved Remission (HCC) documented in this encounter Additional Health Concerns Infection Onset Date Last Indicated Resolved Time Protective Environment 06/03/2022 06/03/2022 documented as of this encounter Care Teams Oracle Database Manager Relationship Specialty Start Date End Date Elsewhere, Pcp PCP - General Internal Medicine 04/01/22 documented as of this encounter
--- OUTSIDE RECORDS SUMMARY | 2023-03-08 08:51 | XMS_ITS | Encounter Summary ---
Author Name Unknown Organization [facility] Address [address] [place] [address] Care Team Providers Care Corporate Travel Consultant Name Role Phone Elsewhere, Pcp Primary Care Provider Unavailabl e Reason for Referral * Outpatient (Routine) Specialty Diagnoses / Procedures Referred By Guillermina zamora Referred To Contact Hematology Oncology Mari Noguera M.D. [address] [place] [phone] [facility] Region Referral ID Status Reason Start Date Expiration Date Visits Re quested Visits Authorized Reason for Visit * Episode Based Medications (Routine) - Authorized Specialty Diagnoses / Procedures Referred By Guillermina zamora Referred To Contact Diagnoses Multiple Myeloma Not Having Achieved Remission (HCC) Procedures RI ONDANSETRON HCL INJECTION RI DARATUMUMAB, HYALURONIDASE RI BORTEZOMIB INJECTION 1,800 mg on Day 1, 8, 15, 22 for cycles 1 & 2, Day 1, 15 3-6, Day 1 for cycle 7 / 28 day cycles / 17 total visits Mari Noguera M.D. [address] [place] [phone] [facility] Region Referral ID Status Reason Start Date Expiration Date V isits Requested Visits Authorized [id number] Authorized 05/28/2021 02/27/2024 31 31 Encounter Details Date Type Department Care Team (Late st Contact Info) Description 12/02/2022 11:40 AM CDT Office Visit Department of Oncology in [place], [place] [address] [place] [address] Mari Noguera M.D. [address] [place] [address] Multiple Myeloma Not Having Achieved [...] often do you attend chur ch or roman catholic services? 1 to 4 times per year [...] Sign Reading Time Taken Comments Blood Pressure 143/56 12/02/2022 12:09 PM CDT Pulse 49 12/02/2022 12:09 PM CDT Temperature 36.1 ??C (97 ??F) 12/02/2022 12:08 PM CDT Respiratory Rate - - Oxygen Saturation 100% 12/02/2022 12:08 PM CDT Room air Inhaled Oxygen Concentration - - Weight 82.1 kg (181 lb) 12/02/2022 12:08 PM CDT Height - - Body Mass Index 32.72 10/07/2022 11:14 AM CDT documented in this encounter Progress Notes * Mari Noguera M.D. - 12/02/2022 11:40 AM CDT SUBJECTIVE PRIMARY CARE PHYSICIAN ELSEWHERE, PCP CHIEF [...] chains: kappa: 8.01 mg/L; lambda: 33.64 mg/L; Tarl[place]:Lambda Ratio: 0.24 SPEP: M-spike: 3.26 g/dL Immunofixation: [...] She has occasional loose stool managed with Imodium. ECOG performance status of 0. Pain rated at 0. REVIEW OF SYSTEMS [...] post ASCT day 0 12/02/2021 ([facility]) Ms. Treadwell will continue maintenance therapy with every other week bortezomib 1.3 mg/m2 and lenalidomide 10 mg 21 of 28 days. . Myeloma indices are scheduled to be drawn next today, she will be contacted through the portal with results. Last cycle was delayed by 1 week for platelets of 58. Although technically could have treated her in this range, given that she is receiving maintenance therapy, opted to hold and allow for platelet recovery. Platelets today 88, resume treatment with no dose adjustments. If platelets drop back downinto the 50s with this cycle of treatment, would decrease her Velcade by 20% and continue with current dose lenalidomide. Post transplant immunizations: Plan for flu vaccine in the fall, she plans to receive the new COVIDvaccine when available. Posttransplant vaccines began 6 months after transplant through her primarycare provider. Antibiotic prophylaxis: She should continue with Pen VK and acyclovir. Pen VK can be stopped at 1 year post transplant. She stopped Bactrim at day 100. Continue acyclovir while on bortezomib until 3 months post bortezomib DVT/PE prophylaxis She has resumed aspirin 325 mg daily. She is considering pursuing knee replacement in the future and has been cleared from a transplant standpoint. We would need to time this with maintenance treatment as well. She will hold off on this for now. However if she does pursue knee replacement would need to consider full anticoagulation in the perioperative period. Mari Ngouera M.D. documented in this encounter Plan of Treatment Upcoming Encounters Date Type Department Care Team (Late st Contact Info) Description 03/16/2023 10:30 AM CARE PROGRAM DIRECTOR Appointment Department of Laboratory Medicine in [place] [place] [address] Mari Noguera M.D. [address] [place] [phone] 03/17/2023 8:40 AM CARE PROGRAM DIRECTOR Office Visit Department of Oncology in [address] [place] [phone] Mari Noguera M.D. [address] [place] [phone] 03/17/2023 9:45 AM CARE PROGRAM DIRECTOR Infusion Department of Infusion Therapy in [address] [place] [phone] Mari Noguera M.D. [address] [place] [phone] 03/31/2023 10:10 AM CARE PROGRAM DIRECTOR Appointment Department of Laboratory Medicine in [address] [place] [address] Mari oNguera M.D. [address] [place] [phone] 04/04/2023 8:20 AM CARE PROGRAM DIRECTOR Office Visit Department of Oncology in [address] [place] [phone] Mari Noguera M.D. [address] [place] [phone] 04/04/2023 9:00 AM CARE PROGRAM DIRECTOR Infusion Department of Infusion Therapy in [address] [place] [phone] Mari Noguera M.D. [address] [place] [phone] 04/13/2023 10:10 AM CARE PROGRAM DIRECTOR Appointment Department of Laboratory Medicine in [place], [place] [address] [place] [phone] Mari Noguera M.D. [address] [place] [phone] 04/14/2023 9:00 AM CARE PROGRAM DIRECTOR Infusion Department of Infusion Therapy in [address] [address] Mari Noguera M.D. [address] [place] [phone] Scheduled Referrals Name Type Priority Associated Diagnoses Order Schedule Hematology office visit (clinic) [facility] Region; Pre-Chemo Outpatient Referral Routine Multiple Myeloma Not Having Achieved Remission (HCC) Expected: 01/13/2023, Expires: 01/14/2024 documented as of this encounter Results * (ABNORMAL) Comprehensive Metabolic Panel (01/12/2023 10:10 AM CARE PROGRAM DIRECTOR) Potassium, P 3.8 3.6 - 5.2 mmol/L 01/12/2023 2:01 PM CARE PROGRAM DIRECTOR OWAT Sodium, P 140 135 - 145 mmol/L 01/12/2023 2:01 PM CARE PROGRAM DIRECTOR OWAT Chloride, P 102 98 - 107 mmol/L 01/12/2023 2:01 PM CARE PROGRAM DIRECTOR OWAT Bicarbonate, P 27 22 - 29 mmol/L 01/12/2023 2:01 PM CARE PROGRAM DIRECTOR OWAT Anion Gap, P 11 7 - 15 01/12/2023 2:01 PM CARE PROGRAM DIRECTOR OWAT BUN (Blood Urea Nitrogen), P 33(H) 6 - 21 mg/dL 01/12/2023 2:01 PM CARE PROGRAM DIRECTOR OWAT Creatinine 1.30(H) 0.59 - 1.04 mg/dL 01/12/2023 2:01 PM CARE PROGRAM DIRECTOR OWAT Estimated GFR (eGFR) 43(L) >=60 mL/min/BS A 01/12/2023 2:01 PM CARE PROGRAM DIRECTOR OWAT Comment: Estimated GFR calculated using the 2020 CKD_EPI creatinine equation. Calcium, Total, P 9.8 8.8 - 10.2 mg/dL 01/12/2023 2:01 PM CARE PROGRAM DIRECTOR OWAT Glucose, P 122 70 - 140 mg/dL 01/12/2023 2:01 PM CARE PROGRAM DIRECTOR OWAT Protein, Total, P 6.5 6.3 - 7.9 g/dL 01/12/2023 2:01 PM CARE PROGRAM DIRECTOR OWAT Albumin, P 4.2 3.5 - 5.0 g/dL 01/12/2023 2:01 PM CARE PROGRAM DIRECTOR OWAT Aspartate Aminotransferase (AST), P 19 8 - 43 U/L 01/12/2023 2:01 PM CARE PROGRAM DIRECTOR OWAT Alkaline Phosphatase, P 73 35 - 104 U/L 01/12/2023 2:01 PM CARE PROGRAM DIRECTOR OWAT Alanine Aminotransferase (ALT), P 17 7 - 45 U/L 01/12/2023 2:01 PM CARE PROGRAM DIRECTOR OWAT Bilirubin, Total, P 0.3 0.0 - 1.2 mg/dL 01/12/2023 2:01 PM CARE PROGRAM DIRECTOR OWAT Blood (Blood, Venous) 01/12/2023 10:10 AM CARE PROGRAM DIRECTOR 01/12/2023 1:05 PM CARE PROGRAM DIRECTOR Mari Noguera M.D. LAB BLOOD ADD-ON [facility] [address] [place] [phone], [facility] OWAT [facility] in [place] [address] [address] * (ABNORMAL) CBC with Differential, Blood (01/12/2023 10:10 AM CARE PROGRAM DIRECTOR) Hemoglobin 12.0 11.6 - 15.0 g/dL 01/12/2023 10:37 AM CARE PROGRAM DIRECTOR FB60 Hematocrit 37.0 35.5 - 44.9 % 01/12/2023 10:37 AM CARE PROGRAM DIRECTOR FB60 Erythrocytes 3.75(L) 3.92 - 5.13 x10(12)/L 01/12/2023 10:37 AM CARE PROGRAM DIRECTOR FB60 MCV 98.7(H) 78.2 - 97.9 fL 01/12/2023 10:37 AM CARE PROGRAM DIRECTOR FB60 RBC Distrib Width 15.6 12.2 - 16.1 % 01/12/2023 10:37 AM CARE PROGRAM DIRECTOR FB60 Platelet Count 54(L) 157 - 371 x10(9)/L 01/12/2023 10:37 AM CARE PROGRAM DIRECTOR FB60 Leukocytes 3.6 3.4 - 9.6 x10(9)/L 01/12/2023 10:37 AM CARE PROGRAM DIRECTOR FB60 Neutrophils 2.29 1.56 - 6.45 x10(9)/L 01/12/2023 10:37 AM CARE PROGRAM DIRECTOR FB60 Lymphocytes 0.83(L) 0.95 - 3.07 x10(9)/L 01/12/2023 10:37 AM CARE PROGRAM DIRECTOR FB60 Monocytes 0.29 0.26 - 0.81 x10(9)/L 01/12/2023 10:37 AM CARE PROGRAM DIRECTOR FB60 Eosinophils 0.20 0.03 - 0.48 x10(9)/L 01/12/2023 10:37 AM CARE PROGRAM DIRECTOR FB60 Basophils <0.04 0.01 - 0.08 x10(9)/L 01/12/2023 10:37 AM CARE PROGRAM DIRECTOR FB60 Blood (Blood, Venous) 01/12/2023 10:10 AM CARE PROGRAM DIRECTOR 01/12/2023 10:10 AM CARE PROGRAM DIRECTOR Mari Noguera M.D. LAB BLOOD ADD-ON [facility] [address] [place] [address], [facility] FB60 [facility] in [place] [address] [place] [address] * (ABNORMAL) Immunoglobulins (IgG, IgA, and IgM) (12/29/2022 9:33 AM CDT) Pathologist [facility] Immunoglobulin A (IgA), S 44(L) 61 - 356 mg/dL 12/30/2022 7:28 AM CDT [facility] Immunoglobulin M (IgM), S 20(L) 37 - 286 mg/dL 12/30/2022 7:28 AM CDT [facility] Immunoglobulin G (IgG), S 834 767 - 1590 mg/dL 12/30/2022 7:29 AM CDT [facility] Blood (Blood, Venous) 12/29/2022 9:33 AM CDT 12/30/2022 6:12 AM CDT Mari Noguera M.D. LAB BLOOD ADD-ON [facility] [address] [place] [address] [facility] [address] [place] [address] * (ABNORMAL) Monoclonal Protein Study, Expanded Panel (12/02/2022 12:38 PM CDT) Pathologist [facility] Total Protein, S 7.2 6.3 - 7.9 g/dL 12/02/2022 9:55 PM CDT ECLR Tarlton Free Light Chain, S 2.46(H) 0.3300 - 1.94 mg/dL 12/05/2022 7:40 AM CDT ECLR Lambda Free Light Chain, S 1.68 0.5700 - 2.63 mg/dL 12/05/2022 7:40 AM CDT ECLR Tarl[place]/Lambda FLC Ratio 1.46 0.2600 - 1.65 12/05/2022 [...] PM CDT 12/02/2022 9:33 PM CDT Narrative [facility] - 12/05/2022 3:27 PM CDT Specimen Information: Specimen ID: [id number] Specimen Type: Blood Specimen Collection Start Date: 12/02/2022 12:38 PM Specimen Received Date: 12/02/2022 ??9:33 PM Specimen ID: [id number] Specimen Type: Blood Specimen Collection Start Date: 12/02/2022 12:38 PM Specimen Received Date: 12/02/2022 ??9:33 PM Specimen ID: [id number] Specimen Type: Blood Specimen Collection Start Date: 12/02/2022 12:38 PM Specimen Received Date: 12/02/2022 ??9:33 PM Mari Noguera M.D. LAB BLOOD ADD-ON [facility] [address] [place] [address], [facility] ECLR [facility] in [address] [address] [address] [place] [phone] * (ABNORMAL) CBC with Differential, Blood (12/02/2022 [...] CDT Mari Noguera M.D. LAB BLOOD ADD-ON [facility] [address] [place] [address], [facility] RDWG [facility] in [place] [address] [place] [phone] documented in this encounter Visit Diagnoses Diagnosis Multiple Myeloma Not Having Achieved Remission (HCC)- Primary Multiple Myeloma Not Having Achieved Remission (HCC) documented in this encounter Additional Health Concerns Infection Onset Date Last Indicated Resolved Time Protective Environment 06/03/2022 06/03/2022 documented as of this encounter Care Teams Corporate Travel Consultant Relationship Specialty Start Date End Date Elsewhere, Pcp PCP - General Internal Medicine 04/01/22 documented as of this encounter
--- OUTSIDE RECORDS SUMMARY | 2023-03-08 08:51 | XMS_ITS | Encounter Summary ---
Author Name Unknown Organization [facility] Address [address] [place] [address] Care Team Providers Care Professional Caster Name Role Phone Elsewhere, Pcp Primary Care Provider Unavailabl e Encounter Details Date Type Department Care Team (Late st Contact Info) Description 11/30/2022 Orders Only Department of Oncology in [place], [place] [address] [place] [phone] Anna Rosa RAbrahamNAbraham [address] [place] [address] Multiple Myeloma Not Having Achieved Remission (HCC) [...] often do you attend chur ch or islam services? 1 to 4 times per year 06/11/2021 Do you belong to any clubs o r organizations such as yarsanism groups, unions, fraternal or athletic groups, or [...] Date Recorded PHQ-2 Score 4 11/18/2021 [facility] Answer Date [...] st Contact Info) Description 03/16/2023 10:30 AM SEW ON OPERATOR Appointment Department of Laboratory Medicine in [place], [place] [address] [place] [phone] Mari Noguera M.D. [address] [place] [phone] 03/17/2023 8:40 AM SEW ON OPERATOR Office Visit Department of Oncology in [place] [address] [place] [address] Mari Noguera M.D. [facility] [place] [phone] 03/17/2023 9:45 AM SEW ON OPERATOR Infusion Department of Infusion Therapy in [address] [place] [phone] Mari Noguera M.D. [address] [place] [phone] 03/31/2023 10:10 AM SEW ON OPERATOR Appointment Department of Laboratory Medicine in [address] [phone] Mari Noguera M.D. [address] [place] [phone] 04/04/2023 8:20 AM SEW ON OPERATOR Office Visit Department of Oncology in [address] [place] [address] Mari Noguera M.D. [address] [place] [phone] 04/04/2023 9:00 AM SEW ON OPERATOR Infusion Department of Infusion Therapy in [address] [place] [address] Mari Noguera M.D. [address] [place] [phone] 04/13/2023 10:10 AM SEW ON OPERATOR Appointment Department of Laboratory Medicine in [address] [phone] Mari Noguera M.D. [address] [place] [phone] 04/14/2023 9:00 AM SEW ON OPERATOR Infusion Department of Infusion Therapy in [place], [place] [address] [place] [phone] Mari Noguera M.D. [address] [place] [phone] documented as of this encounter Visit Diagnoses Diagnosis Multiple Myeloma Not Having Achieved Remission (HCC)- Primary documented in this encounter Additional Health Concerns Infection Onset Date Last Indicated Resolved Time Protective Environment 06/03/2022 06/03/2022 documented as of this encounter Care Teams Professional Caster Relationship Specialty Start Date End Date Elsewhere, Pcp PCP - General Internal Medicine 04/01/22 documented as of this encounter
--- OUTSIDE RECORDS SUMMARY | 2023-03-08 08:52 | XMS_ITS | Encounter Summary ---
Author Name Unknown Organization [facility] Address [address] [place] [address] Care Team Providers Care Screen Printer Helper Name Role Phone Elsewhere, Pcp Primary Care Provider Unavailabl e Reason for Visit * Episode Based Medications (Routine) - Authorized Specialty Diagnoses / Procedures Referred By Guillermina zamora Referred To Contact Diagnoses Multiple Myeloma Not Having Achieved Remission (HCC) Procedures FL ONDANSETRON HCL INJECTION FL DARATUMUMAB, HYALURONIDASE FL BORTEZOMIB INJECTION 1,800 mg on Day 1, 8, 15, 22 for cycles 1 & 2, Day 1, 15 3-6, Day 1 for cycle 7 / 28 day cycles / 17 total visits Mari Noguera M.D. [address] [place] [address] [facility] Region Referral ID Status Reason Start Date Expiration Date V isits Requested Visits Authorized [id number] Authorized 05/28/2021 02/27/2024 31 31 Encounter Details Date Type Department Care Team (Latest Contact Info) Description 10/07/2022 10:19 AM CDT - 10/07/2022 11:59 PM CDT Hospital Encounter Department of Laboratory Medicine in [place], [place] [address] [place] [phone] Mari Noguera M.D. [address] [place] [phone] Multiple Myeloma Not Having Achieved [...] attend [facility] or jain services? 1 to 4 times per year 06/11/2021 Do you belong to any clubs o r organizations such as scientology groups, unions, fraternal or athletic groups, or [...] Date Recorded PHQ-2 Score 4 11/18/2021 [facility] - Occupational [...] Date End Date aspirin [address] tabletIndications:Mul tiple Myeloma Not Having Achieved Remission (HCC) [...] capsule 0 12/04/2021 ondansetron (ZOFRAN) 8 mg tabletIndications:Mul tiple Myeloma Not Having Achieved Remission (HCC) Take 1 tablet (8 mg total) by mouth every 8 (eight) hours as needed for nausea or vomiting. 30 tablet 3 03/28/2022 03/28/2023 prochlorperazine (COMPAZINE) 10 mg tabletIndications:Mul tiple Myeloma Not Having Achieved Remission (HCC) Take 1 tablet (10 mg total) by mouth every 6 (six) hours as needed for nausea or vomiting (unrelieved by ondansetron). 30 tablet 3 03/28/2022 03/28/2023 triamcinolone (KENALOG) 0.1 % cream Apply 1 Application topically 2 (two) times a day for 14 days. Apply to chest and neck area (avoid the face). 80 g 0 07/11/2022 acyclovir (ZOVIRAX) 200 mg capsule Take 2 capsules (400 mg total) by mouth 2 (two) times a day. 60 capsule 11 08/11/2022 02/09/2023 lenalidomide (Revlimid) 10 mg capsuleIndications:Mu ltiple Myeloma Not Having Achieved Remission (HCC) Take 1 capsule (10 mg total) by mouth daily. Take on days 1 through 21 of cycle. Take whole with water. Do not break, chew, or open. 21 capsule 0 09/23/2022 10/17/2022 penicillin V potassium (VEETIDS) 500 mg tablet Take 1 tablet (500 mg total) by mouth 2 (two) times a day. 60 tablet 11 12/01/2021 12/08/2022 documented as of this encounter Plan of Treatment Upcoming Encounters Date Type Department Care Team (Late st Contact Info) Description 03/16/2023 10:30 AM AUTOMATIC TELLER MACHINE SERVICER Appointment Department of Laboratory Medicine in [address] [place] [phone] Mari Noguera M.D. [address] [place] [phone] 03/17/2023 8:40 AM AUTOMATIC TELLER MACHINE SERVICER Office Visit Department of Oncology in [address] [place] [phone] Mari Noguera M.D. [facility] [place] [address] 03/17/2023 9:45 AM AUTOMATIC TELLER MACHINE SERVICER Infusion Department of Infusion Therapy in [address] [place] [address] Mari Noguera M.D. [address] [place] [phone] 03/31/2023 10:10 AM AUTOMATIC TELLER MACHINE SERVICER Appointment Department of Laboratory Medicine in [address] [phone] Mari Noguera M.D. [address] [place] [phone] 04/04/2023 8:20 AM AUTOMATIC TELLER MACHINE SERVICER Office Visit Department of Oncology in [address] [place] [address] Mari Noguera M.D. [address] [place] [phone] 04/04/2023 9:00 AM AUTOMATIC TELLER MACHINE SERVICER Infusion Department of Infusion Therapy in [address] [phone] Mari Noguera M.D. [address] [place] [phone] 04/13/2023 10:10 AM AUTOMATIC TELLER MACHINE SERVICER Appointment Department of Laboratory Medicine in [address] [phone] Mari Noguera M.D. [address] [place] [phone] 04/14/2023 9:00 AM AUTOMATIC TELLER MACHINE SERVICER Infusion Department of Infusion Therapy in [place], [place] [address] [place] [address] Mari Noguera M.D. [address] [place] [phone] documented as of this encounter Procedures Procedure Name Priority Date/Time Associated Diagnosis Comments CBC WITH DIFFERENTIAL, B Routine 10/07/2022 10:45 AM CDT Multiple Myeloma Not Having Achieved Remission (HCC) COMPREHENSIVE METABOLIC PANEL, S/P Routine 10/07/2022 10:45 AM CDT Multiple Myeloma Not Having Achieved Remission (HCC) documented in this encounter Results * (ABNORMAL) Comprehensive Metabolic Panel (10/07/2022 10:45 AM CDT) Potassium, P 3.9 3.6 - 5.2 mmol/L 10/07/2022 11:30 AM CDT RDWG Sodium, P 140 135 - 145 mmol/L 10/07/2022 11:30 AM CDT RDWG Chloride, P 99 98 - 107 mmol/L 10/07/2022 11:30 AM CDT RDWG Bicarbonate, P 30(H) 22 - 29 mmol/L 10/07/2022 11:30 AM CDT RDWG Anion Gap, P 11 7 - 15 10/07/2022 11:30 AM CDT RDWG BUN (Blood Urea Nitrogen), P 24(H) 6 - 21 mg/dL 10/07/2022 11:30 AM CDT RDWG Creatinine 1.02 0.59 - 1.04 mg/dL 10/07/2022 11:30 AM CDT RDWG Estimated GFR (eGFR) 58(L) >=60 mL/min/BS A 10/07/2022 11:30 AM CDT RDWG Comment: Estimated GFR calculated using the 2020 CKD_EPI creatinine equation. Calcium, Total, P 9.9 8.8 - 10.2 mg/dL 10/07/2022 11:30 AM CDT RDWG Glucose, P 94 70 - 140 mg/dL 10/07/2022 11:30 AM CDT RDWG Protein, Total, P 6.6 6.3 - 7.9 g/dL 10/07/2022 11:30 AM CDT RDWG Albumin, P 4.2 3.5 - 5.0 g/dL 10/07/2022 11:30 AM CDT RDWG Aspartate Aminotransferase (AST), P 18 8 - 43 U/L 10/07/2022 11:30 AM CDT RDWG Alkaline Phosphatase, P 73 35 - 104 U/L 10/07/2022 11:30 AM CDT RDWG Alanine Aminotransferase (ALT), P 15 7 - 45 U/L 10/07/2022 11:30 AM CDT RDWG Bilirubin, Total, P 0.3 <=1.2 mg/dL 10/07/2022 11:30 AM CDT RDWG Blood (Blood, Venous) 10/07/2022 10:45 AM CDT 10/07/2022 10:53 AM CDT Mari Noguera M.D. LAB BLOOD ADD-ON [facility] [address] [place] [address], [place] [facility] in [place] [address] [place] [phone] * (ABNORMAL) CBC with Differential, Blood (10/07/2022 10:45 AM CDT) Hemoglobin 11.9 11.6 - 15.0 g/dL 10/07/2022 11:02 AM CDT RDWG Hematocrit 38.8 35.5 - 44.9 % 10/07/2022 11:02 AM CDT RDWG Erythrocytes 4.08 3.92 - 5.13 x10(12)/L 10/07/2022 11:02 AM CDT RDWG MCV 95.1 78.2 - 97.9 fL 10/07/2022 11:02 AM CDT RDWG RBC Distrib Width 16.6(H) 12.2 - 16.1 % 10/07/2022 11:02 AM CDT RDWG Platelet Count 85(L) 157 - 371 x10(9)/L 10/07/2022 11:02 AM CDT RDWG Leukocytes 3.1(L) 3.4 - 9.6 x10(9)/L 10/07/2022 11:02 AM CDT RDWG Neutrophils 1.69 1.56 - 6.45 x10(9)/L 10/07/2022 11:02 AM CDT RDWG Lymphocytes 0.72(L) 0.95 - 3.07 x10(9)/L 10/07/2022 11:02 AM CDT RDWG Monocytes 0.37 0.26 - 0.81 x10(9)/L 10/07/2022 11:02 AM CDT RDWG Eosinophils 0.32 0.03 - 0.48 x10(9)/L 10/07/2022 11:02 AM CDT RDWG Basophils <0.03 0.01 - 0.08 x10(9)/L 10/07/2022 11:02 AM CDT RDWG Blood (Blood, Venous) 10/07/2022 10:45 AM CDT 10/07/2022 10:55 AM CDT Mari Noguera M.D. LAB BLOOD ADD-ON [facility] [address] [place] [address], [place] [facility] [place] [address] [place] [address] documented in this encounter Visit Diagnoses Diagnosis Multiple Myeloma Not Having Achieved Remission (HCC) documented in this encounter Additional Health Concerns Infection Onset Date Last Indicated Resolved Time Protective Environment 06/03/2022 06/03/2022 documented as of this encounter Care Teams Screen Printer Helper Relationship Specialty Start Date End Date Elsewhere, Pcp PCP - General Internal Medicine 04/01/22 documented as of this encounter
--- OUTSIDE RECORDS SUMMARY | 2023-03-08 08:52 | XMS_ITS | Encounter Summary ---
Author Name Unknown Organization [facility] Address [address] [place] [address] Care Team Providers Care Manager Print Name Role Phone Elsewhere, Pcp Primary Care Provider Unavailabl e Reason for Visit * Reason Comments Follow-up * Episode Based Medications (Routine) - Authorized Specialty Diagnoses / Procedures Referred By Guillermina t Referred To Contact Diagnoses Multiple Myeloma Not Having Achieved Remission (HCC) Procedures WA ONDANSETRON HCL INJECTION WA DARATUMUMAB, HYALURONIDASE WA BORTEZOMIB INJECTION 1,800 mg on Day 1, 8, 15, 22 for cycles 1 & 2, Day 1, 15 3-6, Day 1 for cycle 7 / 28 day cycles / 17 total visits Mari Noguera M.D. [address] [place] [address] [facility] Region Referral ID Status Reason Start Date Expiration Date V isits Requested Visits Authorized [id number] Authorized 05/28/2021 02/27/2024 31 31 Encounter Details Date Type Department Care Team (Late st Contact Info) Description 11/11/2022 11:20 AM CDT Office Visit Department of Oncology in [place], [place] [address] [place] [phone] Mari Noguera M.D. [address] [place] [address] Multiple Myeloma Not Having Achieved [...] week 06/11/2021 How often do you attend [facility] or zoroastrian services? 1 to 4 times per year 06/11/2021 Do you belong to any clubs o r organizations such as sabianist groups, unions, fraternal or athletic groups, or [...] [facility] of Occupat ional Health [...] Sign Reading Time Taken Comments Blood Pressure 115/56 11/11/2022 11:16 AM CDT Pulse 51 11/11/2022 11:16 AM CDT Temperature 36.7 ??C (98.1 ??F) 11/11/2022 1 1:13 AM CDT Respiratory Rate - - Oxygen Saturation 98% 11/11/2022 11: 13 AM CDT Room air Inhaled Oxygen Concentration - - Weight 82.9 kg (182 lb 12.2 oz) 023 11:13 AM CDT Height - - Body Mass Index 33.04 10/07/2022 11:14 AM CDT documented in this encounter Progress Notes * Mari Noguera M.D. 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 She continues to tolerate maintenance therapy well. No peripheral neuropathy, her energy level has been excellent although she does experience some days of increased fatigue. She has occasional loosestool managed with Imodium. ECOG performance status of 0. Pain rated at 0. REVIEW OF SYSTEMS Respiratory: Positive for coughing up mucus (phlegm). Gastrointestinal: Positive for diarrhea. All other systems reviewed and are negative. The following systems were negative: Constitutional, Skin, Eyes, ENT, Cardiovascular, Genitourinary, Hematologic, Musculoskeletal, Neurological, Psychiatric PHYSICAL EXAM Vitals reviewed. Constitutional General: She is not in acute distress. Appearance: She is not ill-appearing. HENT Mouth/Throat: Pharynx: No oropharyngeal exudate. Eyes General: No scleral icterus. Conjunctiva/sclera: Conjunctivae normal. Cardiovascular Rate and Rhythm: Normal rate and regular rhythm. Pulmonary Effort: Pulmonary effort is normal. No respiratory distress. Breath sounds: No wheezing, rhonchi or rales. Abdominal General: There is no distension. Palpations: [...] with VGPR post ASCT day 0 12/02/2021 ([facility]) Ms. Treadwell will continue maintenance therapy with every other week bortezomib 1.3 mg/m2 and lenalidomide 10 mg 21 of 28 days, cycle #8 today. Myeloma indices are scheduled to be drawn next week. Post transplant immunizations: Plan for flu vaccine [...] in the perioperative period. Mari Noguera M.D. documented in this encounter Plan of Treatment Upcoming Encounters Date Type Department Care Team (Late st Contact Info) Description 03/16/2023 10:30 AM CUSTOMS INVESTIGATOR Appointment Department of Laboratory Medicine in [address] [address] Mari Noguera M.D. [address] [place] [phone] 03/17/2023 8:40 AM CUSTOMS INVESTIGATOR Office Visit Department of Oncology in [address] [place] [address] Mari Noguera M.D. [address] [place] [phone] 03/17/2023 9:45 AM CUSTOMS INVESTIGATOR Infusion Department of Infusion Therapy in [address] [place] [address] Mari Noguera M.D. [address] [place] [phone] 03/31/2023 10:10 AM CUSTOMS INVESTIGATOR Appointment Department of Laboratory Medicine in [address] [place] [address] Mari Noguera M.D. [address] [place] [phone] 04/04/2023 8:20 AM CUSTOMS INVESTIGATOR Office Visit Department of Oncology in [address] [phone] Mari Noguera M.D. [address] [place] [phone] 04/04/2023 9:00 AM CUSTOMS INVESTIGATOR Infusion Department of Infusion Therapy in [address] [place] [address] Mari Noguera M.D. [address] [place] [phone] 04/13/2023 10:10 AM CUSTOMS INVESTIGATOR Appointment Department of Laboratory Medicine in [place] [address] [address] [facility] [phone] Mari Noguera M.D. [address] [place] [address], [place] [phone] 04/14/2023 9:00 AM CUSTOMS INVESTIGATOR Infusion Department of Infusion Therapy in [address] [phone] Mari Noguera M.D. [address] [place] [phone] documented as of this encounter Results * (ABNORMAL) CBC with Differential, Blood (12/15/2022 1:54 PM CDT) [facility] Hemoglobin 11.6 11.6 - 15.0 g/dL 12/15/2022 [...] CDT Mari Noguera M.D. LAB BLOOD ADD-ON [facility] [address] [place] [address], [facility] FB60 [facility] in [place] [address] [place] [address] * (ABNORMAL) Comprehensive Metabolic Panel (11/18/2022 10:12 [...] CDT Mari Noguera M.D. LAB BLOOD ADD-ON [facility] [address] [address], [facility] OWAT [facility] in [place] [address] [place] [address] documented in this encounter Visit Diagnoses Diagnosis Multiple Myeloma Not Having Achieved Remission (HCC)- Primary documented in this encounter Additional Health Concerns Infection Onset Date Last Indicated Resolved Time Protective Environment 06/03/2022 06/03/2022 documented as of this encounter Care Teams Manager Print Relationship Specialty Start Date End Date Elsewhere, Pcp PCP - General Internal Medicine 04/01/22 documented as of this encounter
--- OUTSIDE RECORDS SUMMARY | 2023-03-08 08:52 | XMS_ITS | Encounter Summary ---
Author Name Unknown Organization [facility] Address [address] [place] [address] Care Team Providers Care Pyrotechnics Press Tender Name Role Phone Elsewhere, Pcp Primary Care Provider Unavailabl e Reason for Visit * Episode Based Medications (Routine) - Authorized Specialty Diagnoses / Procedures Referred By Guillermina t Referred To Contact Diagnoses Multiple Myeloma Not Having Achieved Remission (HCC) Procedures ME ONDANSETRON HCL INJECTION ME DARATUMUMAB, HYALURONIDASE ME BORTEZOMIB INJECTION 1,800 mg on Day 1, 8, 15, 22 for cycles 1 & 2, Day 1, 15 3-6, Day 1 for cycle 7 / 28 day cycles / 17 total visits Mari Noguera M.D. [address] [place] [address] [facility] Region Referral ID Status Reason Start Date Expiration Date V isits Requested Visits Authorized [id number] Authorized 05/28/2021 02/27/2024 31 31 Encounter Details Date Type Department Care Team (Late st Contact Info) Description 09/23/2022 9:15 AM CDT Infusion Department of Infusion Therapy in [address] [phone] Mari Noguera M.D. [address] [place] [phone] Multiple Myeloma Not Having Achieved Remission (HCC) [...] week 06/11/2021 [facility] you [facility] or caodaism services? 1 to 4 times [...] Answer Date Recorded PHQ-2 Score 4 11/18/2021 [facility] [place] of Occupat ional Health - Occupational Stress [...] Sign Reading Time Taken Comments Blood Pressure 177/66 09/23/2022 9:08 AM CDT Pulse 52 09/23/2022 9:08 AM CDT Temperature 36.5 ??C (97.7 ??F) 09/23/2022 9:08 AM CD T Respiratory Rate 18 09/23/2022 9:08 AM CDT Oxygen Saturation 97% 09/23/2022 9:08 AM CDT Inhaled Oxygen Concentration - - Weight - - Height - - Body Mass Index - - documented in this encounter Plan of Treatment Upcoming Encounters Date Type Department Care Team (Late st Contact Info) Description 03/16/2023 10:30 AM SEARCH ENGINEER Appointment Department of Laboratory Medicine in [address] [address] Mari Noguera M.D. [address] [place] [phone] 03/17/2023 8:40 AM SEARCH ENGINEER Office Visit Department of Oncology in [address] [phone] Mari Noguera M.D. [address] [place] [phone] 03/17/2023 9:45 AM SEARCH ENGINEER Infusion Department of Infusion Therapy in [address] [phone] Mari Noguera M.D. [address] [place] [phone] 03/31/2023 10:10 AM SEARCH ENGINEER Appointment Department of Laboratory Medicine in [address] [phone] Mari Noguera M.D. [address] [place] [phone] 04/04/2023 8:20 AM SEARCH ENGINEER Office Visit Department of Oncology in [address] [phone] Mari Noguera M.D. [address] [place] [phone] 04/04/2023 9:00 AM SEARCH ENGINEER Infusion Department of Infusion Therapy in [address] [phone] Mari Noguera M.D. [address] [place] [phone] 04/13/2023 10:10 AM SEARCH ENGINEER Appointment Department of Laboratory Medicine in [address] [phone] Mari Noguera M.D. [address] [place] [phone] 04/14/2023 9:00 AM SEARCH ENGINEER Infusion Department of Infusion Therapy in [address] [phone] Mari Noguera M.D. [address] [place] [phone] documented as of this encounter Visit Diagnoses Diagnosis Multiple Myeloma Not Having Achieved Remission (HCC)- Primary documented in this encounter Administered Medications Inactive Administered Medications - up to 3 most recent administrations Medication Order MAR Action Action Date Dose Rate Site bortezomib injection 2.5 mg (VELCADE) 2.5 mg (rounded from 2.457 mg = 1.3 mg/m2 ? 1.89 m2 Treatment Plan BSA from Measured weight), subcutaneous, Once, On Mon09/23/22 at 0930, For 1 dose, Rotate injection site. Given 09/23/2022 9:38 AM CDT 2.5 mg Right Upper Abdomen documented in this encounter Additional Health Concerns Infection Onset Date Last Indicated Resolved Time Protective Environment 06/03/2022 06/03/2022 documented as of this encounter Care Teams Pyrotechnics Press Tender Relationship Specialty Start Date End Date Elsewhere, Pcp PCP - General Internal Medicine 04/01/22 documented as of this encounter
--- OUTSIDE RECORDS SUMMARY | 2023-03-08 08:52 | XMS_ITS | Encounter Summary ---
Author Name Unknown Organization [facility] Address [address] [place] [address] Care Team Providers Care Hand Ii Thermal Cutter Name Role Phone Elsewhere, Pcp Primary Care Provider Unavailabl e Reason for Visit * Episode Based Medications (Routine) - Authorized Specialty Diagnoses / Procedures Referred By Guillermina zamora Referred To Contact Diagnoses Multiple Myeloma Not Having Achieved Remission (HCC) Procedures PA ONDANSETRON HCL INJECTION PA DARATUMUMAB, HYALURONIDASE PA BORTEZOMIB INJECTION 1,800 mg on Day 1, 8, 15, 22 for cycles 1 & 2, Day 1, 15 3-6, Day 1 for cycle 7 / 28 day cycles / 17 total visits Mari Noguera M.D. [address] [place] [address] [facility] Region Referral ID Status Reason Start Date Expiration Date V isits Requested Visits Authorized [id number] Authorized 05/28/2021 02/27/2024 31 31 Encounter Details Date Type Department Care Team (Latest Contact Info) Description 11/10/2022 10:20 AM CDT - 11/10/2022 11:59 PM CDT Hospital Encounter Department of Laboratory Medicine in [place], [place] [address] [facility] [place] [address] Mari Noguera M.D. [address] [place] [phone] Multiple Myeloma Not Having Achieved [...] week 06/11/2021 How often do you attend [facility] or rastafari services? 1 to 4 times [...] break, chew, or open. 21 capsule 0 10/20/2022 11/14/2022 penicillin V potassium (VEETIDS) 500 mg tablet Take 1 tablet (500 mg total) by mouth 2 (two) times a day. 60 tablet 11 12/01/2021 12/08/2022 documented as of this encounter Plan of Treatment Upcoming Encounters Date Type Department Care Team (Late st Contact Info) Description 03/16/2023 10:30 AM ASSEMBLER FISHING FLOATS Appointment Department of Laboratory Medicine in [address] [place] [phone] Mari Noguera M.D. [address] [place] [phone] 03/17/2023 8:40 AM ASSEMBLER FISHING FLOATS Office Visit Department of Oncology in [address] [place] [phone] Mari Noguera M.D. [facility] [place] [phone] 03/17/2023 9:45 AM ASSEMBLER FISHING FLOATS Infusion Department of Infusion Therapy in [address] [place] [phone] Mari Noguera M.D. [address] [place] [phone] 03/31/2023 10:10 AM ASSEMBLER FISHING FLOATS Appointment Department of Laboratory Medicine in [address] [phone] Mari Noguera M.D. [address] [place] [phone] 04/04/2023 8:20 AM ASSEMBLER FISHING FLOATS Office Visit Department of Oncology in [address] [place] [address] Mari Noguera M.D. [address] [place] [phone] 04/04/2023 9:00 AM ASSEMBLER FISHING FLOATS Infusion Department of Infusion Therapy in [address] [phone] Mari Noguera M.D. [address] [place] [phone] 04/13/2023 10:10 AM ASSEMBLER FISHING FLOATS Appointment Department of Laboratory Medicine in [address] [phone] Mari Noguera M.D. [address] [facility] [place] [phone] 04/14/2023 9:00 AM ASSEMBLER FISHING FLOATS Infusion Department of Infusion Therapy in [place], [place] [address] [facility] [address] Mari Noguera M.D. [address] [place] [phone] documented as of this encounter Procedures Procedure Name Priority Date/Time Associated Diagnosis Comments CBC WITH DIFFERENTIAL, B Routine 11/10/2022 10:33 AM CDT Multiple Myeloma Not Having Achieved Remission (HCC) documented in this encounter Results * (ABNORMAL) CBC with Differential, Blood (11/10/2022 10:33 AM CDT) Hemoglobin 11.5(L) 11.6 - 15.0 g/dL 11/10/2022 11:06 AM CDT FB60 Hematocrit 36.5 35.5 - 44.9 % 11/10/2022 11:06 AM CDT FB60 Erythrocytes 3.82(L) 3.92 - 5.13 x10(12)/L 11/10/2022 11:06 AM CDT FB60 MCV 95.5 78.2 - 97.9 fL 11/10/2022 11:06 AM CDT FB60 RBC Distrib Width 15.7 12.2 - 16.1 % 11/10/2022 11:06 AM CDT FB60 Platelet Count 72(L) 157 - 371 x10(9)/L 11/10/2022 11:06 AM CDT FB60 Leukocytes 3.1(L) 3.4 - 9.6 x10(9)/L 11/10/2022 11:06 AM CDT FB60 Neutrophils 1.64 1.56 - 6.45 x10(9)/L 11/10/2022 11:06 AM CDT FB60 Lymphocytes 0.92(L) 0.95 - 3.07 x10(9)/L 11/10/2022 11:06 AM CDT FB60 Monocytes 0.31 0.26 - 0.81 x10(9)/L 11/10/2022 11:06 AM CDT FB60 Eosinophils 0.17 0.03 - 0.48 x10(9)/L 11/10/2022 11:06 AM CDT FB60 Basophils <0.04 0.01 - 0.08 x10(9)/L 11/10/2022 11:06 AM CDT FB60 Blood (Blood, Venous) 11/10/2022 10:33 AM CDT 11/10/2022 10:33 AM CDT Mari Noguera M.D. LAB BLOOD ADD-ON [facility] [address] [place] [address], [facility] FB60 [facility] in [place] [address] [place] [address] documented in this encounter Visit Diagnoses Diagnosis Multiple Myeloma Not Having Achieved Remission (HCC) documented in this encounter Additional Health Concerns Infection Onset Date Last Indicated Resolved Time Protective Environment 06/03/2022 06/03/2022 documented as of this encounter Care Teams Hand Ii Thermal Cutter Relationship Specialty Start Date End Date Elsewhere, Pcp PCP - General Internal Medicine 04/01/22 documented as of this encounter
--- OUTSIDE RECORDS SUMMARY | 2023-03-08 08:52 | XMS_ITS | Encounter Summary ---
Author Name Unknown Organization [facility] Address [address] [place] [address] Care Team Providers Care Proofer Name Role Phone Elsewhere, Pcp Primary Care Provider Unavailabl e Reason for Visit * Episode Based Medications (Routine) - Authorized Specialty Diagnoses / Procedures Referred By Guillermina zamora Referred To Contact Diagnoses Multiple Myeloma Not Having Achieved Remission (HCC) Procedures ID ONDANSETRON HCL INJECTION ID DARATUMUMAB, HYALURONIDASE ID BORTEZOMIB INJECTION 1,800 mg on Day 1, 8, 15, 22 for cycles 1 & 2, Day 1, 15 3-6, Day 1 for cycle 7 / 28 day cycles / 17 total visits Mari Noguera M.D. [address] [place] [address] [facility] Region Referral ID Status Reason Start Date Expiration Date V isits Requested Visits Authorized [id number] Authorized 05/28/2021 02/27/2024 31 31 Encounter Details Date Type Department Care Team (Latest Contact Info) Description 10/20/2022 9:44 AM CDT - 10/20/2022 11:59 PM CDT Hospital Encounter Department of Laboratory Medicine in [place], [place] [address] [facility] [place] [phone] Mari Noguera M.D. [address] [place] [address] Multiple Myeloma Not Having Achieved [...] often do you attend [facility] or jainism services? 1 to 4 times per year 06/11/2021 Do you belong to any clubs o r organizations such as sikhism groups, unions, fraternal or athletic groups, or [...] Answer Date Recorded PHQ-2 Score 4 11/18/2021 [facility] of Occupat ional Health - Occupational [...] st Contact Info) Description 03/16/2023 10:30 AM GARNETT MACHINE OPERATOR Appointment Department of Laboratory Medicine in [address] [place] [phone] Mari Noguera M.D. [address] [place] [phone] 03/17/2023 8:40 AM GARNETT MACHINE OPERATOR Office Visit Department of Oncology in [address] [place] [address] Mari Noguera M.D. [facility] [place] [address] 03/17/2023 9:45 AM GARNETT MACHINE OPERATOR Infusion Department of Infusion Therapy in [address] [place] [address] Mari Noguera M.D. [address] [place] [phone] 03/31/2023 10:10 AM GARNETT MACHINE OPERATOR Appointment Department of Laboratory Medicine in [address] [phone] Mari Noguera M.D. [address] [place] [phone] 04/04/2023 8:20 AM GARNETT MACHINE OPERATOR Office Visit Department of Oncology in [address] [place] [address] Mari Noguera M.D. [address] [place] [phone] 04/04/2023 9:00 AM GARNETT MACHINE OPERATOR Infusion Department of Infusion Therapy in [address] [phone] Mari Noguera M.D. [address] [place] [phone] 04/13/2023 10:10 AM GARNETT MACHINE OPERATOR Appointment Department of Laboratory Medicine in [address] [phone] Mari Noguera M.D. [address] [place] [phone] 04/14/2023 9:00 AM GARNETT MACHINE OPERATOR Infusion Department of Infusion Therapy in [place], [place] [address] [place] [address] Mari Noguera M.D. [address] [place] [phone] documented as of this encounter Procedures Procedure Name Priority Date/Time Associated Diagnosis Comments CBC WITH DIFFERENTIAL, B Routine 10/20/2022 10:09 AM CDT Multiple Myeloma Not Having Achieved Remission (HCC) documented in this encounter Results * (ABNORMAL) CBC with Differential, Blood (10/20/2022 10:09 AM CDT) Hemoglobin 12.0 11.6 - 15.0 g/dL 10/20/2022 10:21 AM CDT FB60 Hematocrit 38.1 35.5 - 44.9 % 10/20/2022 10:21 AM CDT FB60 Erythrocytes 4.09 3.92 - 5.13 x10(12)/L 10/20/2022 10:21 AM CDT FB60 MCV 93.2 78.2 - 97.9 fL 10/20/2022 10:21 AM CDT FB60 RBC Distrib Width 16.3(H) 12.2 - 16.1 % 10/20/2022 10:21 AM CDT FB60 Platelet Count 75(L) 157 - 371 x10(9)/L 10/20/2022 10:21 AM CDT FB60 Leukocytes 2.1(L) 3.4 - 9.6 x10(9)/L 10/20/2022 10:21 AM CDT FB60 Neutrophils 0.75(L) 1.56 - 6.45 x10(9)/L 10/20/2022 10:21 AM CDT FB60 Lymphocytes 0.89(L) 0.95 - 3.07 x10(9)/L 10/20/2022 10:21 AM CDT FB60 Monocytes 0.31 0.26 - 0.81 x10(9)/L 10/20/2022 10:21 AM CDT FB60 Eosinophils 0.09 0.03 - 0.48 x10(9)/L 10/20/2022 10:21 AM CDT FB60 Basophils <0.04 0.01 - 0.08 x10(9)/L 10/20/2022 10:21 AM CDT FB60 Blood (Blood, Venous) 10/20/2022 10:09 AM CDT 10/20/2022 10:10 AM CDT Mari Noguera M.D. LAB BLOOD ADD-ON [facility] [address] [place] [address], [facility] FB60 [facility] in [place] [address] [place] [address] documented in this encounter Visit Diagnoses Diagnosis Multiple Myeloma Not Having Achieved Remission (HCC) documented in this encounter Additional Health Concerns Infection Onset Date Last Indicated Resolved Time Protective Environment 06/03/2022 06/03/2022 documented as of this encounter Care Teams Proofer Relationship Specialty Start Date End Date Elsewhere, Pcp PCP - General Internal Medicine 04/01/22 documented as of this encounter
--- OUTSIDE RECORDS SUMMARY | 2023-03-08 08:52 | XMS_ITS | Encounter Summary ---
Author Name Unknown Organization [facility] Address [address] [place] [address] Care Team Providers Care Windows Systems Administrator Name Role Phone Elsewhere, Pcp Primary Care Provider Unavailabl e Reason for Visit * Reason Comments Chemotherapy Injections * Episode Based Medications (Routine) - Authorized Specialty Diagnoses / Procedures Referred By Guillermina t Referred To Contact Diagnoses Multiple Myeloma Not Having Achieved Remission (HCC) Procedures DE ONDANSETRON HCL INJECTION DE DARATUMUMAB, HYALURONIDASE DE BORTEZOMIB INJECTION 1,800 mg on Day 1, 8, 15, 22 for cycles 1 & 2, Day 1, 15 3-6, Day 1 for cycle 7 / 28 day cycles / 17 total visits Mari Noguera M.D. [address] [place] [address] [facility] Region Referral ID Status Reason Start Date Expiration Date V isits Requested Visits Authorized [id number] Authorized 05/28/2021 02/27/2024 31 31 Encounter Details Date Type Department Care Team (Late st Contact Info) Description 10/07/2022 11:45 AM CDT Infusion Department of Infusion Therapy in [address] [phone] Mari Noguera M.D. [address] [place] [phone] Multiple Myeloma Not Having Achieved Remission [...] How often do you attend chur or sikhism services? 1 to 4 times per year 06/11/2021 Do you belong to any clubs o r organizations such as jehovah's witness groups, unions, fraternal or athletic groups, or [...] Answer Date Recorded PHQ-2 Score 4 11/18/2021 [facility] Occupat ional [facility] - Occupational Stress Questionnaire Answer Date [...] place to sleep or slept in a penitentiary (including now)? No 06/11/2021 Nutrition Answer Date [...] st Contact Info) Description 03/16/2023 10:30 AM LEAD TANK MECHANIC Appointment Department of Laboratory Medicine in [address] [address] Mari Noguera M.D. [address] [place] [phone] 03/17/2023 8:40 AM LEAD TANK MECHANIC Office Visit Department of Oncology in [address] [address] Mari Noguera M.D. [address] [place] [phone] 03/17/2023 9:45 AM LEAD TANK MECHANIC Infusion Department of Infusion Therapy in [address] [address] Mari Noguera M.D. [address] [place] [phone] 03/31/2023 10:10 AM LEAD TANK MECHANIC Appointment Department of Laboratory Medicine in [address] [address] Mari Noguera M.D. [address] [place] [phone] 04/04/2023 8:20 AM LEAD TANK MECHANIC Office Visit Department of Oncology in [address] [phone] Mari Noguera M.D. [address] [place] [phone] 04/04/2023 9:00 AM LEAD TANK MECHANIC Infusion Department of Infusion Therapy in [address] [phone] Mari Noguera M.D. [address] [place] [phone] 04/13/2023 10:10 AM LEAD TANK MECHANIC Appointment Department of Laboratory Medicine in [address] [phone] Mari Noguera M.D. [address] [place] [phone] 04/14/2023 9:00 AM LEAD TANK MECHANIC Infusion Department of Infusion Therapy in [address] [phone] Mari Noguera M.D. [address] [place] [phone] documented as of this encounter Visit Diagnoses [...] BSA from Measured weight), subcutaneous, Once, On Mon10/07/22 at 1245, For 1 dose, Rotate injection site. Given 10/07/2022 12:52 PM CDT 2.5 mg Left Upper Abdomen documented in this encounter Additional Health Concerns Infection Onset Date Last Indicated Resolved Time Protective Environment 06/03/2022 06/03/2022 documented as of this encounter Care Teams Windows Systems Administrator Relationship Specialty Start Date End Date Elsewhere, Pcp PCP - General Internal Medicine 04/01/22 documented as of this encounter
--- OUTSIDE RECORDS SUMMARY | 2023-03-08 08:52 | XMS_ITS | Encounter Summary ---
Author Name Unknown Organization [facility] Address [address] [place] [address] Care Team Providers Care Furniture Restorer Name Role Phone Elsewhere, Pcp Primary Care Provider Unavailabl e Reason for Visit * Episode Based Medications (Routine) - Authorized Specialty Diagnoses / Procedures Referred By Guillermina t Referred To Contact Diagnoses Multiple Myeloma Not Having Achieved Remission (HCC) Procedures [place] ONDANSETRON HCL INJECTION [place] DARATUMUMAB, HYALURONIDASE [place] BORTEZOMIB INJECTION 1,800 mg on Day 1, 8, 15, 22 for cycles 1 & 2, Day 1, 15 3-6, Day 1 for cycle 7 / 28 day cycles / 17 total visits Mari Noguera M.D. [address] [place] [address] [facility] Region Referral ID Status Reason Start Date Expiration Date V isits Requested Visits Authorized [id number] Authorized 05/28/2021 02/27/2024 31 31 Encounter Details Date Type Department Care Team (Late st Contact Info) Description 10/21/2022 2:15 PM CDT Infusion Department of Infusion Therapy in [address] [phone] Mari Noguera M.D. [address] [place] [phone] Multiple Myeloma Not Having Achieved Remission (HCC) [...] week 06/11/2021 How often do you attend [facility] or cheondoism services? 1 to 4 times per year 06/11/2021 Do you belong to any clubs o r organizations such as anglican groups, unions, fraternal or athletic groups, or [...] Answer Date Recorded PHQ-2 Score 4 11/18/2021 [facility] of Occupat ional Health - Occupational Stress [...] Sign Reading Time Taken Comments Blood Pressure 114/46 10/21/2022 3:03 PM CDT Pulse 63 10/21/2022 3:03 PM CDT Temperature 36.3 ??C (97.3 ??F) 10/21/2022 3:03 PM CD T Respiratory Rate 18 10/21/2022 3:03 PM CDT Oxygen Saturation 99% 10/21/2022 3:03 PM CDT Inhaled Oxygen Concentration - - Weight 83 kg (182 lb 15.7 oz) 10/21/2022 3:03 PM CDT Height - - Body Mass Index 33.08 10/07/2022 11:14 AM CDT documented in this encounter Plan of Treatment Upcoming Encounters Date Type Department Care Team (Late st Contact Info) Description 03/16/2023 10:30 AM COTTON BALL BAGGER Appointment Department of Laboratory Medicine in [address] [phone] Mari Noguera M.D. [address] [place] [phone] 03/17/2023 8:40 AM COTTON BALL BAGGER Office Visit Department of Oncology in [address] [phone] Mari [place] [phone] 03/17/2023 9:45 AM COTTON BALL BAGGER Infusion Department of Infusion Therapy in [address] [phone] Mari Noguera M.D. [address] [place] [phone] 03/31/2023 10:10 AM COTTON BALL BAGGER Appointment Department of Laboratory Medicine in [address] [place] [address] Mari Noguera M.D. [address] [place] [phone] 04/04/2023 8:20 AM COTTON BALL BAGGER Office Visit Department of Oncology in [address] [phone] Mari Noguera M.D. [address] [place] [address] [phone] 04/04/2023 9:00 AM COTTON BALL BAGGER Infusion Department of Infusion Therapy in [address] [phone] Mari Noguera M.D. [address] [place] [address] [phone] 04/13/2023 10:10 AM COTTON BALL BAGGER Appointment Department of Laboratory Medicine in [address] [place] [address] Mari Noguera M.D. [address] [place] [address] [phone] 04/14/2023 9:00 AM COTTON BALL BAGGER Infusion Department of Infusion Therapy in [address] [phone] Mari Noguera M.D. [address] [place] [phone] documented as of this encounter Visit Diagnoses [...] BSA from Measured weight), subcutaneous, Once, On Mon10/21/22 at 1530, For 1 dose, Rotate injection site. Given 10/21/2022 3:18 PM CDT 2.5 mg Right Lower Abdomen documented in this encounter Additional Health Concerns Infection Onset Date Last Indicated Resolved Time Protective Environment 06/03/2022 06/03/2022 documented as of this encounter Care Teams Furniture Restorer Relationship Specialty Start Date End Date Elsewhere, Pcp PCP - General Internal Medicine 04/01/22 documented as of this encounter
--- OUTSIDE RECORDS SUMMARY | 2023-03-08 08:52 | XMS_ITS | Encounter Summary ---
Author Name Unknown Organization [facility] Address [address] [place] [address] Care Team Providers Care Vessel Liner Name Role Phone Elsewhere, Pcp Primary Care Provider Unavailabl e Reason for Referral * Outpatient (Routine) Specialty Diagnoses / Procedures [facility] Referred To Contact Hematology Oncology Mari Noguera M.D. [address] [place] [phone] [facility] Region Referral ID Status Reason Start Date Expiration Date Visits Re quested Visits Authorized * Outpatient (Routine) Specialty Diagnoses / Procedures Referred By [facility] Referred To Contact Hematology Oncology Mari Noguera M.D. [address] [place] [phone] [facility] Region Referral ID Status Reason Start Date Expiration Date Visits Re quested Visits Authorized Reason for Visit * Reason Comments Follow-up <9>Multiple Myeloma Not Having Achieved Remission * Episode Based Medications (Routine) - Authorized Specialty Diagnoses / Procedures Referred By Contac t Referred To Contact Diagnoses Multiple Myeloma Not Having Achieved Remission (HCC) Procedures SC ONDANSETRON HCL INJECTION [place] DARATUMUMAB, HYALURONIDASE [place] BORTEZOMIB INJECTION 1,800 mg on Day 1, 8, 15, 22 for cycles 1 & 2, Day 1, 15 3-6, Day 1 for cycle 7 / 28 day cycles / 17 total visits Mari Noguera M.D. [address] [place] [phone] [facility] Region Referral ID Status Reason Start Date Expiration Date V isits Requested Visits Authorized [id number] Authorized 05/28/2021 02/27/2024 31 31 Encounter Details Date Type Department Care Team (Late st Contact Info) Description 10/07/2022 11:20 AM CDT Office Visit Department of Oncology in [place], [place] [address] [place] [phone] Mari Noguera M.D. [address] [place] [phone] Multiple Myeloma Not Having Achieved [...] Answer Date Recorded PHQ-2 Score 4 11/18/2021 [facility] of Occupat ional [facility] - Occupational Stress Questionnaire Answer Date [...] Sign Reading Time Taken Comments Blood Pressure 134/52 10/07/2022 11:14 AM CDT Pulse 54 10/07/2022 11:14 AM CDT Temperature 36.4 ??C (97.5 ??F) 10/07/2022 11:14 AM C DT Respiratory Rate - - Oxygen Saturation - - Inhaled Oxygen Concentration - - Weight 83 kg (182 lb 15.7 oz) 10/07/2022 11:14 A M CDT Height 158.4 cm (5' 2.36) 10/07/2022 11:14 AM C DT Body Mass Index 33.08 10/07/2022 11:14 AM CDT documented in this encounter Progress Notes * Mari Noguera M.D. - 10/07/2022 11:20 AM CDT SUBJECTIVE PRIMARY CARE PHYSICIAN ELSEWHERE, PCP CHIEF COMPLAINT / REASON FOR VISIT Keysha Melendez is a 76 y.o. female who presents for evaluation of [...] chains: kappa: 8.01 mg/L; lambda: 33.64 mg/L; [place]:Lambda Ratio: 0.24 SPEP: M-spike: 3.26 g/dL Immunofixation: [...] is seen to reassess prior to cycle 7 of maintenance Revlimid/Velcade in the post ASCT [...] acute distress. Appearance: She is not ill-appearing. Pulmonary Effort: No respiratory distress. Breath sounds: No wheezing, rhonchi or rales. LABORATORY DATA Reviewed RADIOLOGICAL DATA No results found. 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 Treadwell will continue maintenance therapy with every other week bortezomib 1.3 mg/m2 and lenalidomide 10 mg 21 of 28 days, cycle #4 today. Myeloma indices show normal serum free light chains with normal ratio, no M spike but persistently positive immunofixation unchanged since transplant. Post transplant immunizations: Plan for flu vaccine in the fall, started COVID vaccinations in April through her primary care provider. Posttransplant vaccines began 6 months after transplant throughher primary care provider. Antibiotic prophylaxis: She should [...] st Contact Info) Description 03/16/2023 10:30 AM PARKING LOT LABORER Appointment Department of Laboratory Medicine in [address] [phone] Mari Noguera M.D. [address] [place] [phone] 03/17/2023 8:40 AM PARKING LOT LABORER Office Visit Department of Oncology in [address] [phone] Mari Noguera M.D. [address] [place] [phone] 03/17/2023 9:45 AM PARKING LOT LABORER Infusion Department of Infusion Therapy in [address] [phone] Mari Noguera M.D. [address] [place] [phone] 03/31/2023 10:10 AM PARKING LOT LABORER Appointment Department of Laboratory Medicine in [address] [phone] Mari Noguera M.D. [address] [place] [address] [phone] 04/04/2023 8:20 AM PARKING LOT LABORER Office Visit Department of Oncology in [address] [phone] Mari Noguera M.D. [address] [place] [phone] 04/04/2023 9:00 AM PARKING LOT LABORER Infusion Department of Infusion Therapy in [place] [address] [place] [phone] Mari Noguera M.D. [address] [place] [phone] 04/13/2023 10:10 AM PARKING LOT LABORER Appointment Department of Laboratory Medicine in [place] [address] [place] [address] Mari Noguera M.D. [address] [place] [phone] 04/14/2023 9:00 AM PARKING LOT LABORER Infusion Department of Infusion Therapy in [address] [phone] Mari Noguera M.D. [address] [place] [phone] Scheduled Referrals Name Type Priority Associated Diagnoses Order Schedule Hematology office visit (clinic) [facility]; Pre-Chemo Outpatient Referral Routine Multiple Myeloma Not Having Achieved Remission (HCC) Expected: 11/04/2022, Expires: 11/05/2023 Hematology office visit (clinic) [facility]; Pre-Chemo Outpatient Referral Routine Multiple Myeloma Not Having Achieved Remission (HCC) Expected: 12/16/2022, Expires: 12/17/2023 documented as of this encounter Results * [...] M.D. LAB BLOOD ADD-ON [facility] [address] [place] [address], [facility] OWAT [facility] in [place] [address] [place] [address] * (ABNORMAL) CBC with Differential, Blood (12/01/2022 [...] AM CDT 12/01/2022 10:04 AM CDT Mari Nogurea M.D. LAB BLOOD ADD-ON [facility] [address] [place] [address], [facility] FB60 [facility] in [place] [address] [place] [address] * (ABNORMAL) CBC with Differential, Blood (11/18/2022 [...] M.D. LAB BLOOD ADD-ON [facility] [address] [place] [address], [facility] FB60 [facility] in [place] [address] [place] [address] * (ABNORMAL) CBC with Differential, Blood (11/10/2022 [...] M.D. LAB BLOOD ADD-ON [facility] [address] [place] [address], [facility] FB60 [facility] in [place] [address] [place] [address] * (ABNORMAL) CBC with Differential, Blood (10/20/2022 10:09 AM CDT) [facility] Hemoglobin 12.0 11.6 - 15.0 g/dL 10/20/2022 [...] M.D. LAB BLOOD ADD-ON [facility] [address] [place] [address], [facility] [address] [facility] in [place] [address] [place] [address] documented in this encounter Visit Diagnoses Diagnosis Multiple Myeloma Not Having Achieved Remission (HCC)- Primary documented in this encounter Additional Health Concerns Infection Onset Date Last Indicated Resolved Time Protective Environment 06/03/2022 06/03/2022 documented as of this encounter Care Teams Vessel Liner Relationship Specialty Start Date End Date Elsewhere, Pcp PCP - General Internal Medicine 04/01/22 documented as of this encounter
--- OUTSIDE RECORDS SUMMARY | 2023-03-08 08:52 | XMS_ITS | Encounter Summary ---
Author Name Unknown Organization [facility] Address [address] [place] [address] Care Team Providers Care Co Founder And Chief Strategy Officer Name Role Phone Elsewhere, Pcp Primary Care Provider Unavailabl e Reason for Visit * Reason Comments Med Refill Encounter Details Date Type Department Care Team (Late st Contact Info) Description 10/17/2022 Refill Department of Oncology in [place], [place] [address] [place] [phone] Mari Noguera M.D. [address] [place] [phone] Med Refill Social History Tobacco [...] often do you attend [facility] or hoahaoism services? 1 to 4 times per year [...] Date Recorded PHQ-2 Score 4 11/18/2021 [facility] of Occupat ionwa Health - Occupational Stress Questionnaire Answer [...] st Contact Info) Description 03/16/2023 10:30 AM CLUB MANAGER Appointment Department of Laboratory Medicine in [place] [address] [place] [phone] Mari Noguera M.D. [address] [place] [phone] 03/17/2023 8:40 AM CLUB MANAGER Office Visit Department of Oncology in [address] [place] [phone] Mari Noguera M.D. [address] [place] [phone] 03/17/2023 9:45 AM CLUB MANAGER Infusion Department of Infusion Therapy in [address] [place] [address] Mari Noguera M.D. [address] [place] [phone] 03/31/2023 10:10 AM CLUB MANAGER Appointment Department of Laboratory Medicine in [address] [phone] Mari Noguera M.D. [address] [place] [phone] 04/04/2023 8:20 AM CLUB MANAGER Office Visit Department of Oncology in [address] [place] [address] Mari Noguera M.D. [address] [place] [phone] 04/04/2023 9:00 AM CLUB MANAGER Infusion Department of Infusion Therapy in [address] [phone] Mari Noguera M.D. [address] [place] [phone] 04/13/2023 10:10 AM CLUB MANAGER Appointment Department of Laboratory Medicine in [address] [phone] Mari Noguera M.D. [address] [place] [phone] 04/14/2023 9:00 AM CLUB MANAGER Infusion Department of Infusion Therapy in [place], [place] [address] [place] [phone] Mari Noguera M.D. [address] [place] [phone] documented as of this encounter Visit Diagnoses Diagnosis Multiple Myeloma Not Having Achieved Remission (HCC) documented in this encounter Additional Health Concerns Infection Onset Date Last Indicated Resolved Time Protective Environment 06/03/2022 06/03/2022 documented as of this encounter Care Teams Co Founder And Chief Strategy Officer Relationship Specialty Start Date End Date Elsewhere, Pcp PCP - General Internal Medicine 04/01/22 documented as of this encounter
--- OUTSIDE RECORDS SUMMARY | 2023-03-08 08:53 | XMS_ITS | Encounter Summary ---
Author Name Unknown Organization [facility] Address [address] [place] [address] Care Team Providers Care Flask Pusher Name Role Phone Elsewhere, Pcp Primary [...] 17 total visits Mari Noguera M.D. [address] [place] [address] [facility] Region Referral ID Status Reason Start Date Expiration Date V isits Requested Visits Authorized [id number] Authorized 05/28/2021 02/27/2024 31 31 Encounter Details Date Type Department Care Team (Late st Contact Info) Description 08/26/2022 4:30 PM CDT Infusion Department of Infusion Therapy in [address] [phone] Mari Noguera M.D. [address] [place] [phone] Multiple Myeloma Not Having Achieved Remission [...] How often do you attend chur or sabianism services? 1 to 4 times per year 06/11/2021 Do you belong to any clubs o r organizations such as pentecostalism groups, unions, fraternal or athletic groups, or [...] Answer Date Recorded PHQ-2 Score 4 11/18/2021 [facility] - Occupational Stress Questionnaire Answer Date Recorded [...] Sign Reading Time Taken Comments Blood Pressure 154/51 08/26/2022 2:21 PM CDT Pulse 49 08/26/2022 2:21 PM CDT Temperature - - Respiratory Rate 16 08/26/2022 2:21 PM CDT Oxygen Saturation - - Inhaled Oxygen Concentration - - Weight - - Height - - Body Mass Index - - documented in this encounter Plan of Treatment Upcoming Encounters Date Type Department Care Team (Late st Contact Info) Description 03/16/2023 10:30 AM FILTER TIP CATCHER Appointment Department of Laboratory Medicine in [address] [phone] Mari Noguera M.D. [address] [place] [phone] 03/17/2023 8:40 AM FILTER TIP CATCHER Office Visit Department of Oncology in [address] [phone] Mari Noguera M.D. [address] [place] [phone] 03/17/2023 9:45 AM FILTER TIP CATCHER Infusion Department of Infusion Therapy in [address] [phone] Mari Noguera M.D. [address] [place] [phone] 03/31/2023 10:10 AM FILTER TIP CATCHER Appointment Department of Laboratory Medicine in [address] [phone] Mari Noguera M.D. [address] [place] [phone] 04/04/2023 8:20 AM FILTER TIP CATCHER Office Visit Department of Oncology in [address] [phone] Mari Noguera M.D. [address] [place] [phone] 04/04/2023 9:00 AM FILTER TIP CATCHER Infusion Department of Infusion Therapy in [address] [phone] Mari Noguera M.D. [address] [place] [phone] 04/13/2023 10:10 AM FILTER TIP CATCHER Appointment Department of Laboratory Medicine in [address] [place] [address] Mari Noguera M.D. [address] [place] [phone] 04/14/2023 9:00 AM FILTER TIP CATCHER Infusion Department of Infusion Therapy in [address] [phone] Mari Noguera M.D. [address] [place] [phone] documented as of this encounter Visit Diagnoses [...] BSA from Measured weight), subcutaneous, Once, On Mon08/26/22 at 1445, For 1 dose, Rotate injection site. Given 08/26/2022 2:42 PM CDT 2.5 mg Right Lower Abdomen documented in this encounter Additional Health Concerns Infection Onset Date Last Indicated Resolved Time Protective Environment 06/03/2022 06/03/2022 documented as of this encounter Care Teams Flask Pusher Relationship Specialty Start Date End Date Elsewhere, Pcp PCP - General Internal Medicine 04/01/22 documented as of this encounter
--- OUTSIDE RECORDS SUMMARY | 2023-03-08 08:53 | XMS_ITS | Encounter Summary ---
Author Name Unknown Organization [facility] Address [address] [place] [address] Care Team Providers Care Airport Clerk Name Role Phone Elsewhere, Pcp Primary Care Provider Unavailabl e Reason for Visit * Episode Based Medications (Routine) - Authorized Specialty Diagnoses / Procedures Referred By Guillerimna zamora Referred To Contact Diagnoses Multiple Myeloma Not Having Achieved Remission (HCC) Procedures UT ONDANSETRON HCL INJECTION UT DARATUMUMAB, HYALURONIDASE UT BORTEZOMIB INJECTION 1,800 mg on Day 1, 8, 15, 22 for cycles 1 & 2, Day 1, 15 3-6, Day 1 for cycle 7 / 28 day cycles / 17 total visits Mari Noguera M.D. [address] [place] [address] [facility] Region Referral ID Status Reason Start Date Expiration Date V isits Requested Visits Authorized [id number] Authorized 05/28/2021 02/27/2024 31 31 Encounter Details Date Type Department Care Team (Latest Contact Info) Description 09/09/2022 2:24 PM CDT - 09/09/2022 11:59 PM CDT Hospital Encounter Department of Laboratory Medicine in [place], [place] [address] [place] [phone] Mari Noguera M.D. [address] [place] [address] Multiple Myeloma Not Having Achieved [...] week 06/11/2021 How often do you attend [facility] or protestant services? 1 to 4 times per year [...] BY MOUTH DAILY 30 tablet 3 05/04/2022 lisinopriL (PRINIVIL,ZESTRIL) 40 mg tablet Take 1 [...] a day. 60 capsule 11 08/11/2022 02/09/[address] tablet Take 325 mg by mouth. 0 03/28/20222022 lenalidomide (Revlimid) 10 mg capsuleIndications:Mu ltiple Myeloma Not Having Achieved Remission (HCC) Take 1 capsule (10 mg total) by mouth daily. Take on days 1 through 21 of cycle. Take whole with water. Do not break, chew, or open. 15 capsule 0 08/25/2022 09/19/2022 magnesium chloride (MAG-DELAY) [address] tablet Take 140 mg by mouth. 0 09/01/20222022 penicillin V potassium (VEETIDS) 500 mg tablet Take 1 tablet (500 mg total) by mouth 2 (two) times a day. 60 tablet 11 12/01/2021 12/08/2022 documented as of this encounter Plan of Treatment Upcoming Encounters Date Type Department Care Team (Late st Contact Info) Description 03/16/2023 10:30 AM COMPUTER AIDED DESIGN DRAFTER Appointment Department of Laboratory Medicine in [address] [place] [phone] Mari Noguera M.D. [address] [place], [place] [phone] 03/17/2023 8:40 AM COMPUTER AIDED DESIGN DRAFTER Office Visit Department of Oncology in [place] [address] [place] [phone] Mari Noguera M.D. [facility] [place] [phone] 03/17/2023 9:45 AM COMPUTER AIDED DESIGN DRAFTER Infusion Department of Infusion Therapy in [place] [address] [facility] [place] [address] Mari Noguera M.D. [facility] [place] [address] 03/31/2023 10:10 AM COMPUTER AIDED DESIGN DRAFTER Appointment Department of Laboratory Medicine in [address] [address] Mari Noguera M.D. [address] [place] [phone] 04/04/2023 8:20 AM COMPUTER AIDED DESIGN DRAFTER Office Visit Department of Oncology in [place] [address] [facility] [place] [address] Mari Noguera M.D. [address] [place] [phone] 04/04/2023 9:00 AM COMPUTER AIDED DESIGN DRAFTER Infusion Department of Infusion Therapy in [address] [address] Mari Noguera M.D. [address] [place] [phone] 04/13/2023 10:10 AM COMPUTER AIDED DESIGN DRAFTER Appointment Department of Laboratory Medicine in [address] [address] Mari Noguera M.D. [address] [place] [address], [place] [address] 04/14/2023 9:00 AM COMPUTER AIDED DESIGN DRAFTER Infusion Department of Infusion Therapy in [place], [place] [address] [place] [address] Mari Noguera M.D. [address] [place] [address], [place] [address] documented as of this encounter Procedures Procedure Name Priority Date/Time Associated Diagnosis Comments CBC WITH DIFFERENTIAL, B Routine 09/09/2022 2:34 PM CDT Multiple Myeloma Not Having Achieved Remission (HCC) COMPREHENSIVE METABOLIC PANEL, S/P Routine 09/09/2022 2:34 PM CDT Multiple Myeloma Not Having Achieved Remission (HCC) documented in this encounter Results * (ABNORMAL) Comprehensive Metabolic Panel (09/09/2022 2:34 PM CDT) Potassium, P 3.9 3.6 - 5.2 mmol/L 09/09/2022 3:07 PM CDT [facility] Sodium, P 141 135 - 145 mmol/L 09/09/2022 3:07 PM CDT [facility] Chloride, P 103 98 - 107 mmol/L 09/09/2022 3:07 PM CDT [facility] Bicarbonate, P 28 22 - 29 mmol/L 09/09/2022 3:07 PM CDT [facility] Anion Gap, P 10 7 - 15 09/09/2022 3:07 PM CDT [facility] BUN (Blood Urea Nitrogen), P 20 6 - 21 mg/dL 09/09/2022 3:07 PM CDT [facility] Creatinine 1.10(H) 0.59 - 1.04 mg/dL 09/09/2022 3:07 PM CDT [facility] Estimated GFR (eGFR) 53(L) >=60 mL/min/BS A 09/09/2022 3:07 PM CDT [facility] Comment: Estimated GFR calculated using the 2020 CKD_EPI creatinine equation. Calcium, Total, P 9.6 8.8 - 10.2 mg/dL 09/09/2022 3:07 PM CDT [facility] Glucose, P 106 70 - 140 mg/dL 09/09/2022 3:07 PM CDT [facility] Protein, Total, P 6.3 6.3 - 7.9 g/dL 09/09/2022 3:07 PM CDT [facility] Albumin, P 3.7 3.5 - 5.0 g/dL 09/09/2022 3:07 PM CDT [facility] Aspartate Aminotransferase (AST), P 18 8 - 43 U/L 09/09/2022 3:07 PM CDT [facility] Alkaline Phosphatase, P 61 35 - 104 U/L 09/09/2022 3:07 PM CDT [facility] Alanine Aminotransferase (ALT), P 19 7 - 45 U/L 09/09/2022 3:07 PM CDT [facility] Bilirubin, Total, P 0.2 <=1.2 mg/dL 09/09/2022 3:07 PM CDT [facility] Blood (Blood, Venous) 09/09/2022 2:34 PM CDT 09/09/2022 2:45 PM CDT Mari Noguera M.D. LAB BLOOD ADD-ON [facility] [address] [place] [address], [facility] in [place] [address] [place] [phone] * (ABNORMAL) CBC with Differential, Blood (09/09/2022 2:34 PM CDT) Hemoglobin 11.5(L) 11.6 - 15.0 g/dL 09/09/2022 2:53 PM CDT [facility] Hematocrit 37.9 35.5 - 44.9 % 09/09/2022 2:53 PM CDT [facility] Erythrocytes 3.97 3.92 - 5.13 x10(12)/L 09/09/2022 2:53 PM CDT [facility] MCV 95.5 78.2 - 97.9 fL 09/09/2022 2:53 PM CDT [facility] RBC Distrib Width 16.4(H) 12.2 - 16.1 % 09/09/2022 2:53 PM CDT [facility] Platelet Count 85(L) 157 - 371 x10(9)/L 09/09/2022 2:53 PM CDT [facility] Leukocytes 3.7 3.4 - 9.6 x10(9)/L 09/09/2022 2:53 PM CDT [facility] Neutrophils 2.38 1.56 - 6.45 x10(9)/L 09/09/2022 2:53 PM CDT [facility] Lymphocytes 0.78(L) 0.95 - 3.07 x10(9)/L 09/09/2022 2:53 PM CDT [facility] Monocytes 0.35 0.26 - 0.81 x10(9)/L 09/09/2022 2:53 PM CDT [facility] Eosinophils 0.18 0.03 - 0.48 x10(9)/L 09/09/2022 2:53 PM CDT [facility] Basophils 0.04 0.01 - 0.08 x10(9)/L 09/09/2022 2:53 PM CDT [facility] Blood (Blood, Venous) 09/09/2022 2:34 PM CDT 09/09/2022 2:47 PM CDT Mari Noguera M.D. LAB BLOOD ADD-ON [facility] [address] [place] [address], [facility] R[facility] in [place] [address] [place] [address] documented in this encounter Visit Diagnoses Diagnosis Multiple Myeloma Not Having Achieved Remission (HCC) documented in this encounter Additional Health Concerns Infection Onset Date Last Indicated Resolved Time Protective Environment 06/03/2022 06/03/2022 documented as of this encounter Care Teams Airport Clerk Relationship Specialty Start Date End Date Elsewhere, Pcp PCP - General Internal Medicine 04/01/22 documented as of this encounter
--- OUTSIDE RECORDS SUMMARY | 2023-03-08 08:53 | XMS_ITS | Encounter Summary ---
Author Name Unknown Organization [facility] Address [address] [place] [address] Care Team Providers Care Coffee Taster Name Role Phone Elsewhere, Pcp Primary Care Provider Unavailabl e Reason for Visit * Reason Comments Immunizations * Appointment Request (Routine) - Closed Specialty Diagnoses / Procedures Referred By Contrach t Referred To Contact Infectious Diseases Diagnoses Need Vaccine Immunization Referral ID Status Reason Start Date Expiration Date Visits Re quested Visits Authorized [id number] Closed 08/09/2022 08/09/2023 1 1 Encounter Details Date Type Department Care Team (Late st Contact Info) Description 09/05/2022 11:00 AM CDT Nurse Only Section of Infectious Diseases in [place], [place] [address] [place] [address] Nicol Ibarra V., R.N. Immunizations Social History Tobacco Use Types Packs/Day Years [...] How often do you attend [facility] or samaritan services? 1 to 4 times [...] as of this encounter Progress Notes * Nicol Ibarra V. RAbrahamNAbraham - 09/05/2022 11:00 AM CDT PROC IMM Visit 09/05/2022 Pt Type: Post SCT Date of Transplant 12/02/21 Visit # Education + Vis 1 Graft Vs Host Disease: N/A Next Visit Due on or after: 2 Months or more, from 09/05/2022 Visit #: 2 Vaccines Ordered: SCT Visit #2 Pended to Provider: Mari Noguera MD Patient's Plan for Future Vaccination Visits: Return to [facility] Clinic If questions, contact your Hematology team. Additional Notes: Patient elected to receive second bivalent Covid-19 vaccine today. Per current CDC recommendations, patient will be due for third bivalent vaccination in 4 weeks (note: recommendations for post SCT) Adult Immunizations After a Stem Cell Transplant A stem cell transplant, sometimes called a bone marrow transplant, may remove the protection you had built up in your immune system. Your lowered immunity puts you at great risk to many diseases. To replace this protection, you will need to complete a whole series of immunizations. A vaccine is an injection of a killed or weakened virus or bacteria, in order to produce immunity therefore protecting the body from the disease. A killed or inactive vaccine is made from viruses and bacteria that have been killed through physical or chemical processes. These killed organisms cannot cause disease and are safe for you to receive. A live or attenuated vaccine is created when a live virus is weakened through chemical or physical processes in order for your body to produce a protective response without causing the severe effectsof the disease. Since live vaccines contain a version of the living virus, you will not receive live vaccines until 2 years after your transplant AND your Rehab Assistant approves it. Do not get live vaccines unless approved by your Rehab Assistant Live vaccines contain a version of a living virus that has been weakened in the lab so it is unlikely to cause disease. For people who have had a stem cell transplant, even weakened virus may still pose a risk for infection. Specific live vaccines may be appropriate after your stem cell transplant.Certain lab tests may need to be done before these live vaccines are given. Your transplant care team will direct you when to start Your vaccine series can be started as early as 6 to 12 months after your Stem Cell transplant. Not everyone starts their immunization plan at the same time and your immunization plan may change basedon health issues. Infection, illness, and taking medications that suppress your immune system can affect your immunization plan. If there is a change in your health or transplant medications, ask your transplant provider about possible changes to your immunization plan. Know who to call with questions If you have questions or concerns about possible exposure, missed doses, or your immunization plan,contact your Hematology transplant care team. Depending on the concern, they may need to contact [facility]s Immunization Clinic. See CDC.gov for more information on specific diseases. Know which immunizations you need, when The Adult Post Stem Cell Vaccine Schedule Guide shows the immunizations you need and how many dosesyou should get. This schedule has been carefully planned out for you to receive maximum benefit andprotection. Since your immune system is immature, similar to that of a new baby, you will need to get multiple doses of many vaccines, not just the typical adult vaccines or boosters. Even though you have a new immune system, you still need adult doses of Hepatitis A and Hepatitis B. Many pediatric combination vaccines are not the correct doses for adult patients and may lead to repeated vaccination of the correct dose. At [facility] we do give Pentacel as it is 3 vaccines in one ([id number]). Multiple doses help your immune system boost your immunity to protective levels. Vaccines work best with proper spacing. Each set is at least 2 months apart from each other, to give them time to build up antibodies. If more than a few months go by, there is no need to start over,simply continue on with the next dose or set. Completion of the vaccine series is important for full protection. Side Effects Please read each Vaccine Information Sheet, they contain information about each disease and possible side effects. With most vaccines there is a possibility of getting a mild fever and/or headache, along with a possible sore arm. Discuss with your Rehab Assistant any medications you can take for possible side effects. Moving your arms/shoulders is encouraged to help ease soreness. Vaccination of Close Contacts and Family Members All killed or inactive vaccines are ok for close contacts and family members to receive. Any live attenuated vaccines should be given to household contacts prior to the patient's transplant whenever possible. These include the following: FluMist, Rotavirus, Varicella, Zostavax, MMR, Oral Typhoid, Cholera, Smallpox, and Yellow Fever. Specific notes for vaccination of family members follow below. Influenza Vaccination is strongly recommended during each influenza season for all household contacts beginning in the season before the transplant and annually after If a close contact or household member receives the nasal spray flu vaccine (FluMist), the recipient should avoid contact for 7 days Live Vaccines with Precautions Varicella or Herpes Zoster - Recipient should avoid contact if rash develops at vaccination site until rash is crusted over Rotavirus - Recipient should avoid contact with stool of vaccinated for 4 weeks after vaccination of the infant Live Vaccines that are Safe Measles/Mumps/Rubella-does not shed Oral Typhoid Other recommended immunizations Children in close contact with transplant recipients can receive all their other recommended immunizations without risk of transmission to the transplant recipient. Please bring this schedule to your primary care provider or local specialist to receive your immunizations, if you will not be returning to [facility] for them. It is recommended that all immunizations are received at the same facility for continuity, if possible. documented in this encounter Plan of Treatment Upcoming Encounters Date Type Department Care Team (Late st Contact Info) Description 03/16/2023 10:30 AM QA MANAGER Appointment Department of Laboratory Medicine in [address] [phone] Mari Noguera M.D. [address] [place] [phone] 03/17/2023 8:40 AM QA MANAGER Office Visit Department of Oncology in [address] [phone] Mari Noguera M.D. [address] [place] [phone] 03/17/2023 9:45 AM QA MANAGER Infusion Department of Infusion Therapy in [address] [phone] Mari Noguera M.D. [address] [place] [phone] 03/31/2023 10:10 AM QA MANAGER Appointment Department of Laboratory Medicine in [address] [address] Mari Noguera M.D. [address] [place] [phone] 04/04/2023 8:20 AM QA MANAGER Office Visit Department of Oncology in [address] [address] Mari Noguera M.D. [address] [place] [phone] 04/04/2023 9:00 AM QA MANAGER Infusion Department of Infusion Therapy in [address] [phone] Mari Noguera M.D. [address] [place] [phone] 04/13/2023 10:10 AM QA MANAGER Appointment Department of Laboratory Medicine in [place] [address] [place] [address] Mari Noguera M.D. [address] [place] [phone] 04/14/2023 9:00 AM QA MANAGER Infusion Department of Infusion Therapy in [address] [phone] Mari Noguera M.D. [address] [place] [phone] documented as of this encounter Visit Diagnoses Diagnosis Donor Stem Cell- Primary Transplant Stem Cell (HCC) documented in this encounter Additional Health Concerns Infection Onset Date Last Indicated Resolved Time Protective Environment 06/03/2022 06/03/2022 documented as of this encounter Care Teams Coffee Taster Relationship Specialty Start Date End Date Elsewhere, Pcp PCP - General Internal Medicine 04/01/22 documented as of this encounter
--- OUTSIDE RECORDS SUMMARY | 2023-03-08 08:53 | XMS_ITS | Encounter Summary ---
Author Name Unknown Organization [facility] Address [address] [place] [address] Care Team Providers Care Supervisor Assembly And Packing Name Role Phone Elsewhere, Pcp Primary Care Provider Unavailabl e Encounter Details Date Type Department Care Team (Late st Contact Info) Description 09/09/2022 Orders Only Department of Oncology in [place], [place] [address] [place] [phone] Mari Noguera M.D. [address] [place] [address] Multiple Myeloma Not Having Achieved [...] week 06/11/2021 How often do you attend [facility] or spiritism services? 1 to 4 times per year 06/11/2021 Do you belong to any clubs o r organizations such as muslim groups, unions, fraternal or athletic groups, or [...] Answer Date Recorded PHQ-2 Score 4 11/18/2021 [facility] - Occupational Stress Questionnaire Answer Date [...] st Contact Info) Description 03/16/2023 10:30 AM TRY ON BASTER Appointment Department of Laboratory Medicine in [place] [address] [place] [address] Mari Noguera M.D. [address] [place] [phone] 03/17/2023 8:40 AM TRY ON BASTER Office Visit Department of Oncology in [place] [address] [facility] [place] [address] Mari Noguera M.D. [address] [place] [phone] 03/17/2023 9:45 AM TRY ON BASTER Infusion Department of Infusion Therapy in [address] [place] [address] Mari Noguera M.D. [address] [place] [phone] 03/31/2023 10:10 AM TRY ON BASTER Appointment Department of Laboratory Medicine in [address] [address] Mari Noguera M.D. [address] [place] [phone] 04/04/2023 8:20 AM TRY ON BASTER Office Visit Department of Oncology in [address] [address] Mari Noguera M.D. [address] [place] [phone] 04/04/2023 9:00 AM TRY ON BASTER Infusion Department of Infusion Therapy in [address] [address] Mari Noguera M.D. [address] [place] [phone] 04/13/2023 10:10 AM TRY ON BASTER Appointment Department of Laboratory Medicine in [address] [phone] Mari Noguera M.D. [address] [place] [address], [place] [phone] 04/14/2023 9:00 AM TRY ON BASTER Infusion Department of Infusion Therapy in [place], [place] [address] [place] [address], [place] [address] Mari Noguera M.D. [address] [place] [address], [place] [phone] documented as of this encounter Results * (ABNORMAL) CBC with Differential, Blood (09/23/2022 8:23 AM CDT) [facility] Hemoglobin 11.3(L) 11.6 - 15.0 g/dL 09/23/2022 8:51 AM CDT [facility] Hematocrit 37.9 35.5 - 44.9 % 09/23/2022 8:51 AM CDT [facility] Erythrocytes 3.91(L) 3.92 - 5.13 x10(12)/L 09/23/2022 8:51 AM CDT [facility] MCV 96.9 78.2 - 97.9 fL 09/23/2022 8:51 AM CDT [facility] RBC Distrib Width 16.6(H) 12.2 - 16.1 % 09/23/2022 8:51 AM CDT [facility] Platelet Count 88(L) 157 - 371 x10(9)/L 09/23/2022 8:51 AM CDT [facility] Leukocytes 2.9(L) 3.4 - 9.6 x10(9)/L 09/23/2022 8:51 AM CDT [facility] Neutrophils 1.52(L) 1.56 - 6.45 x10(9)/L 09/23/2022 8:51 AM CDT [facility] Lymphocytes 0.80(L) 0.95 - 3.07 x10(9)/L 09/23/2022 8:51 AM CDT [facility] Monocytes 0.34 0.26 - 0.81 x10(9)/L 09/23/2022 8:51 AM CDT [facility] Eosinophils 0.17 0.03 - 0.48 x10(9)/L 09/23/2022 8:51 AM CDT [facility] Basophils 0.03 0.01 - 0.08 x10(9)/L 09/23/2022 8:51 AM CDT [facility] Blood (Blood, Venous) 09/23/2022 8:23 AM CDT 09/23/2022 8:26 AM CDT Mari Noguera M.D. LAB BLOOD ADD-ON [facility] [address] [place] [address], [facility] RDWG [facility] in [place] [address] [place] [address] * (ABNORMAL) Monoclonal Protein Study, Expanded Panel (09/23/2022 8:23 AM CDT) Total Protein, S 5.7(L) 6.3 - 7.9 g/dL 09/23/2022 3:32 PM CDT ECLR Seaton Free Light Chain, S 1.50 0.3300 - 1.94 mg/dL 09/26/2022 9:21 AM CDT ECLR Lambda Free Light Chain, S 1.42 0.5700 - 2.63 mg/dL 09/26/2022 9:21 AM CDT ECLR Seaton/Lambda FLC Ratio 1.06 0.2600 - 1.65 09/26/2022 9:21 AM CDT ECLR Albumin 3.8 3.4 - 4.7 g/dL 09/27/2022 9:24 AM CDT ECLR Alpha-1 Globulin 0.2 0.1 - 0.3 g/dL 09/27/2022 9:24 AM CDT ECLR Alpha-2 Globulin 0.7 0.6 - 1.0 g/dL 09/27/2022 9:24 AM CDT ECLR Beta-Globulin 0.6(L) 0.7 - 1.2 g/dL 09/27/2022 9:24 AM CDT ECLR Gamma-Globulin 0.4(L) 0.6 - 1.6 g/dL 09/27/2022 9:24 AM CDT ECLR A/G Ratio 1.95 09/27/2022 9:24 AM CDT ECLR Impression Small abnormality in gamma fraction. Reviewed and interpreted by: ??Jeannie Rogers M.D. 09/27/2022 9:24 AM CDT ECLR Flag, Immunofixation Positive(A) Negative 09/27/2022 9:26 AM CDT ECLR Immunofixation Monoclonal IgG lambda. Reviewed and interpreted by: ??Jeannie Rogers M.D. 09/27/2022 9:26 AM CDT ECLR Blood (Blood, Venous) 09/23/2022 8:23 AM CDT 09/23/2022 2:49 PM CDT Narrative [facility] - 09/27/2022 9:26 AM CDT Specimen Information: Specimen ID: [id number] Specimen Type: Blood Specimen Collection Start Date: 09/23/2022 ??8:23 AM Specimen Received Date: 09/23/2022 ??2:49 PM Specimen ID: [id number] Specimen Type: Blood Specimen Collection Start Date: 09/23/2022 ??8:23 AM Specimen Received Date: 09/23/2022 ??2:49 PM Specimen ID: [id number] Specimen Type: Blood Specimen Collection Start Date: 09/23/2022 ??8:23 AM Specimen Received Date: 09/23/2022 ??2:49 PM Mari Noguera M.D. LAB BLOOD ADD-ON [facility] [address] [place] [address], [facility] ECLR [facility] in [address] [address] [address] [place] [phone] documented in this encounter Visit Diagnoses Diagnosis Multiple Myeloma Not Having Achieved Remission (HCC)- Primary Multiple Myeloma Not Having Achieved Remission (HCC) documented in this encounter Additional Health Concerns Infection Onset Date Last Indicated Resolved Time Protective Environment 06/03/2022 06/03/2022 documented as of this encounter Care Teams Supervisor Assembly And Packing Relationship Specialty Start Date End Date Elsewhere, Pcp PCP - General Internal Medicine 04/01/22 documented as of this encounter
--- OUTSIDE RECORDS SUMMARY | 2023-03-08 08:53 | XMS_ITS | Encounter Summary ---
Author Name Unknown Organization [facility] Address [address] [place] [address] Care Team Providers Care Wellness Specialist Name Role Phone Elsewhere, Pcp Primary Care Provider Unavailabl e Reason for Visit * Reason Comments Med Refill Encounter Details Date Type Department Care Team (Late st Contact Info) Description 09/19/2022 Refill Department of Oncology in [place], [place] [address] [place] [phone] Mari Noguera M.D. [address] [place] [address] Med Refill Social History Tobacco [...] week 06/11/2021 How often do you attend [facility] or church services? 1 to 4 times per year 06/11/2021 Do you belong to any clubs o r organizations such as jewish groups, unions, fraternal or athletic groups, or [...] Recorded PHQ-2 Score 4 11/18/2021 [facility] of Occupat ionia Health - Occupational Stress Questionnaire Answer Date [...] st Contact Info) Description 03/16/2023 10:30 AM PRACTICAL NURSING FACULTY Appointment Department of Laboratory Medicine in [place] [address] [place] [phone] Mari Noguera M.D. [address] [place] [phone] 03/17/2023 8:40 AM PRACTICAL NURSING FACULTY Office Visit Department of Oncology in [address] [place] [phone] Mari Noguera M.D. [address] [place] [phone] 03/17/2023 9:45 AM PRACTICAL NURSING FACULTY Infusion Department of Infusion Therapy in [address] [place] [address] Mari Noguera M.D. [address] [place] [phone] 03/31/2023 10:10 AM PRACTICAL NURSING FACULTY Appointment Department of Laboratory Medicine in [address] [phone] Mari Noguera M.D. [address] [place] [phone] 04/04/2023 8:20 AM PRACTICAL NURSING FACULTY Office Visit Department of Oncology in [address] [place] [address] Mari Noguera M.D. [address] [place] [phone] 04/04/2023 9:00 AM PRACTICAL NURSING FACULTY Infusion Department of Infusion Therapy in [address] [phone] Mari Noguera M.D. [address] [place] [phone] 04/13/2023 10:10 AM PRACTICAL NURSING FACULTY Appointment Department of Laboratory Medicine in [address] [phone] Mari Noguera M.D. [address] [place] [phone] 04/14/2023 9:00 AM PRACTICAL NURSING FACULTY Infusion Department of Infusion Therapy in [place], [place] [address] [place] [phone] Mari Noguera M.D. [address] [place] [phone] documented as of this encounter Visit Diagnoses Diagnosis Multiple Myeloma Not Having Achieved Remission (HCC) documented in this encounter Additional Health Concerns Infection Onset Date Last Indicated Resolved Time Protective Environment 06/03/2022 06/03/2022 documented as of this encounter Care Teams Wellness Specialist Relationship Specialty Start Date End Date Elsewhere, Pcp PCP - General Internal Medicine 04/01/22 documented as of this encounter
--- OUTSIDE RECORDS SUMMARY | 2023-03-08 08:53 | XMS_ITS | Encounter Summary ---
Author Name Unknown Organization [facility] Address [address] [place] [address] Care Team Providers Care Hand Coremaker Name Role Phone Elsewhere, Pcp Primary Care Provider Unavailabl e Reason for Visit * Episode Based Medications (Routine) - Authorized Specialty Diagnoses / Procedures Referred By Guillermina zamora Referred To Contact Diagnoses Multiple Myeloma Not Having Achieved Remission (HCC) Procedures AL ONDANSETRON HCL INJECTION AL DARATUMUMAB, HYALURONIDASE AL BORTEZOMIB INJECTION 1,800 mg on Day 1, 8, 15, 22 for cycles 1 & 2, Day 1, 15 3-6, Day 1 for cycle 7 / 28 day cycles / 17 total visits Mari Noguera M.D. [address] [place] [address] [facility] Region Referral ID Status Reason Start Date Expiration Date V isits Requested Visits Authorized [id number] Authorized 05/28/2021 02/27/2024 31 31 Encounter Details Date Type Department Care Team (Latest Contact Info) Description 08/26/2022 1:00 PM CDT - 08/26/2022 11:59 PM CDT Hospital Encounter Department of Laboratory Medicine in [place], [place] [address] [place] [phone] Mari Noguera M.D. [address] [place] [phone] Multiple Myeloma Not Having Achieved [...] week 06/11/2021 How often do you attend [facility] or adventist services? 1 to 4 [...] Recorded PHQ-2 Score 4 11/18/2021 [facility] of Occupat ional Health - [...] by mouth daily. 45 tablet 11 01/07/2022 cyanocobalamin (VITAMIN B12) 1,000 mcg tablet Take [...] 325 mg by mouth. 0 03/28/20222022 lenalidomide (REVLIMID) 10 mg capsuleIndications:Mu ltiple Myeloma Not Having Achieved Remission (HCC) Take 1 capsule (10 mg total) by mouth daily. Take on days 1 through 21 of cycle. Take whole with water. Do not break, chew, or open. 21 capsule 0 05/06/2022 08/31/2022 lenalidomide (Revlimid) 10 mg capsuleIndications:Mu ltiple Myeloma Not Having Achieved Remission (HCC) Take 1 capsule (10 mg total) by mouth daily. Take on days 1 through 21 of cycle. 21 capsule 0 07/03/2022 08/31/2022 lenalidomide (Revlimid) 10 mg capsuleIndications:Mu ltiple Myeloma Not Having Achieved Remission (HCC) Take 1 capsule (10 mg total) by mouth daily. Take on days 1 through 21 of cycle. Take whole with water. Do not break, chew, or open. 15 capsule 0 08/25/2022 09/19/2022 penicillin V potassium (VEETIDS) 500 mg tablet Take 1 tablet (500 mg total) by mouth 2 (two) times a day. 60 tablet 11 12/01/2021 12/08/2022 RX WELCOME [id number]-NV ONLY Welcome packet 1 each 0 04/26/2022 08/31/2022 documented as of this encounter Plan of Treatment Upcoming Encounters Date Type Department Care Team (Late st Contact Info) Description 03/16/2023 10:30 AM COOLER SERVICER Appointment Department of Laboratory Medicine in [place], [place] [address] [place] [address] Mari Noguera M.D. [address] [place] [phone] 03/17/2023 8:40 AM COOLER SERVICER Office Visit Department of Oncology in [address] [phone] Mari Noguera M.D. [address] [place] [phone] 03/17/2023 9:45 AM COOLER SERVICER Infusion Department of Infusion Therapy in [address] [phone] Mari Noguera M.D. [address] [place] [phone] 03/31/2023 10:10 AM COOLER SERVICER Appointment Department of Laboratory Medicine in [place], [place] [address] [place] [address] Mari Noguera M.D. [address] [place] [phone] 04/04/2023 8:20 AM COOLER SERVICER Office Visit Department of Oncology in [address] [phone] Mari Noguera M.D. [address] [place] [phone] 04/04/2023 9:00 AM COOLER SERVICER Infusion Department of Infusion Therapy in [address] [place] [phone] Mari Noguera M.D. [address] [place] [phone] 04/13/2023 10:10 AM COOLER SERVICER Appointment Department of Laboratory Medicine in [address] [place] [phone] Mari Noguera M.D. [address] [place] [phone] 04/14/2023 9:00 AM COOLER SERVICER Infusion Department of Infusion Therapy in [place] [address] [place] [phone] Mari Noguera M.D. [address] [place] [phone] documented as of this encounter Procedures Procedure Name Priority Date/Time Associated Diagnosis Comments MONOCLONAL PROTEIN STUDY (MPSS), EXPANDED PANEL, S Routine 08/26/2022 1:12 PM CDT Multiple Myeloma Not Having Achieved Remission (HCC) CBC WITH DIFFERENTIAL, B Routine 08/26/2022 1:12 PM CDT Multiple Myeloma Not Having Achieved Remission (HCC) documented in this encounter Results * (ABNORMAL) CBC with Differential, Blood (08/26/2022 1:12 PM CDT) Pathologist [facility] Hemoglobin 11.8 11.6 - 15.0 g/dL 08/26/2022 1:33 PM CDT RDW[facility] Hematocrit 38.9 35.5 - 44.9 % 08/26/2022 1:33 PM CDT [facility] Erythrocytes 4.15 3.92 - 5.13 x10(12)/L 08/26/2022 1:33 PM CDT [facility] MCV 93.7 78.2 - 97.9 fL 08/26/2022 1:33 PM CDT [facility] RBC Distrib Width 16.1 12.2 - 16.1 % 08/26/2022 1:33 PM CDT [facility] Platelet Count 148(L) 157 - 371 x10(9)/L 08/26/2022 1:33 PM CDT [facility] Leukocytes 4.9 3.4 - 9.6 x10(9)/L 08/26/2022 1:33 PM CDT [facility] Neutrophils 3.35 1.56 - 6.45 x10(9)/L 08/26/2022 1:33 PM CDT [facility] Lymphocytes 0.77(L) 0.95 - 3.07 x10(9)/L 08/26/2022 1:33 PM CDT [facility] Monocytes 0.67 0.26 - 0.81 x10(9)/L 08/26/2022 1:33 PM CDT [facility] Eosinophils 0.09 0.03 - 0.48 x10(9)/L 08/26/2022 1:33 PM CDT [facility] Basophils 0.03 0.01 - 0.08 x10(9)/L 08/26/2022 1:33 PM CDT [facility] Blood (Blood, Venous) 08/26/2022 1:12 PM CDT 08/26/2022 1:19 PM CDT Mari Noguera M.D. LAB BLOOD ADD-ON [facility] [address] [place] [address], [facility] RDWG [facility] in [place] [address] [place] [phone] * (ABNORMAL) Monoclonal Protein Study, Expanded Panel (08/26/2022 1:12 PM CDT) Total Protein, S 5.7(L) 6.3 - 7.9 g/dL 08/26/2022 9:00 PM CDT ECLR [place] Free Light Chain, S 1.10 0.3300 - 1.94 mg/dL 08/29/2022 8:21 AM CDT ECLR Lambda Free Light Chain, S 1.23 0.5700 - 2.63 mg/dL 08/29/2022 8:21 AM CDT ECLR [place]/Lambda FLC Ratio 0.8943 0.2600 - 1.65 08/29/2022 8:21 AM CDT ECLR Albumin 3.9 3.4 - 4.7 g/dL 08/29/2022 2:59 PM CDT ECLR Alpha-1 Globulin 0.2 0.1 - 0.3 g/dL 08/29/2022 2:59 PM CDT ECLR Alpha-2 Globulin 0.6 0.6 - 1.0 g/dL 08/29/2022 2:59 PM CDT ECLR Beta-Globulin 0.6(L) 0.7 - 1.2 g/dL 08/29/2022 2:59 PM CDT ECLR Gamma-Globulin 0.4(L) 0.6 - 1.6 g/dL 08/29/2022 2:59 PM CDT ECLR A/G Ratio 2.22 08/29/2022 2:59 PM CDT ECLR Impression Small abnormality in gamma fraction. Reviewed and interpreted by: ??Daren Tobar M.D. 08/29/2022 2:59 PM CDT ECLR Flag, Immunofixation Positive(A) Negative 08/29/2022 3:35 PM CDT ECLR Immunofixation Cannot rule out small monoclonal protein. Reviewed and interpreted by: ??Daren Tobar M.D. 08/29/2022 3:35 PM CDT ECLR Blood (Blood, Venous) 08/26/2022 1:12 PM CDT 08/26/2022 8:35 PM CDT [facility] - 08/29/2022 3:35 PM CDT Specimen Information: Specimen ID: [id number] Specimen Type: Blood Specimen Collection Start Date: 08/26/2022 ??1:12 PM Specimen Received Date: 08/26/2022 ??8:35 PM Specimen ID: [id number] Specimen Type: Blood Specimen Collection Start Date: 08/26/2022 ??1:12 PM Specimen Received Date: 08/26/2022 ??8:35 PM Specimen ID: [id number] Specimen Type: Blood Specimen Collection Start Date: 08/26/2022 ??1:12 PM Specimen Received Date: 08/26/2022 ??8:35 PM Mari Noguera M.D. LAB BLOOD ADD-ON [facility] [address] [place] [address], [facility] ECL[facility] in [place] [address] [place] [address] [address] [place] [phone] documented in this encounter Visit Diagnoses Diagnosis Multiple Myeloma Not Having Achieved Remission (HCC) documented in this encounter Additional Health Concerns Infection Onset Date Last Indicated Resolved Time Protective Environment 06/03/2022 06/03/2022 documented as of this encounter Care Teams Hand Coremaker Relationship Specialty Start Date End Date Elsewhere, Pcp PCP - General Internal Medicine 04/01/22 documented as of this encounter
--- OUTSIDE RECORDS SUMMARY | 2023-03-08 08:53 | XMS_ITS | Encounter Summary ---
Author Name Unknown Organization [facility] Address [address] [place] [address] Care Team Providers Care Bench Lathe Operator Name Role Phone Elsewhere, Pcp Primary Care Provider Unavailabl e Reason for Visit * Reason Onset Date Comments Med Question 09/09/2022 Encounter Details Date Type Department Care Team (Late st Contact Info) Description 09/09/2022 Clinical Communication Department of Oncology in [place], [place] [address] [place] [address] Mari Noguera M.D. [address] [place] [phone] Med Question Social History Tobacco Use Types Packs/Day [...] week 06/11/2021 How often do you attend [facility] or rastafarian services? 1 to 4 times per year 06/11/2021 Do you belong to any clubs o r organizations such as jainism groups, unions, fraternal or athletic groups, or [...] Date Recorded PHQ-2 Score 4 11/18/2021 [facility] of Occupat ional Health - [...] st Contact Info) Description 03/16/2023 10:30 AM DINING ROOM HOST/HOSTESS Appointment Department of Laboratory Medicine in [address] [phone] Mari Noguera M.D. [address] [place] [phone] 03/17/2023 8:40 AM DINING ROOM HOST/HOSTESS Office Visit Department of Oncology in [place] [address] [address] [place] [phone] Mari Noguera M.D. [address] [place] [phone] 03/17/2023 9:45 AM DINING ROOM HOST/HOSTESS Infusion Department of Infusion Therapy in [address] [place] [phone] Mari Noguera M.D. [address] [place] [phone] 03/31/2023 10:10 AM DINING ROOM HOST/HOSTESS Appointment Department of Laboratory Medicine in [address] [phone] Mari Noguera M.D. [address] [place] [phone] 04/04/2023 8:20 AM DINING ROOM HOST/HOSTESS Office Visit Department of Oncology in [address] [phone] Mari Noguera M.D. [address] [place] [phone] 04/04/2023 9:00 AM DINING ROOM HOST/HOSTESS Infusion Department of Infusion Therapy in [address] [phone] Mari Noguera M.D. [address] [place] [phone] 04/13/2023 10:10 AM DINING ROOM HOST/HOSTESS Appointment Department of Laboratory Medicine in [address] [phone] Mrai Noguera M.D. [address] [place] [phone] 04/14/2023 9:00 AM DINING ROOM HOST/HOSTESS Infusion Department of Infusion Therapy in [place], [place] [address] [place] [phone] Mari Noguera M.D. [address] [place] [phone] documented as of this encounter Visit Diagnoses Not on filedocumented in this encounter Additional Health Concerns Infection Onset Date Last Indicated Resolved Time Protective Environment 06/03/2022 06/03/2022 documented as of this encounter Care Teams Bench Lathe Operator Relationship Specialty Start Date End Date Elsewhere, Pcp PCP - General Internal Medicine 04/01/22 documented as of this encounter
--- OUTSIDE RECORDS SUMMARY | 2023-03-08 08:53 | XMS_ITS | Encounter Summary ---
Author Name Unknown Organization [facility] Address [address] [place] [address] Care Team Providers Care Glucose And Syrup Weigher Name Role Phone Elsewhere, Pcp Primary Care [...] 17 total visits Mari Noguera M.D. [address] [place] [phone] [facility] Region Referral ID Status Reason Start Date Expiration Date V isits Requested Visits Authorized [id number] Authorized 05/28/2021 02/27/2024 31 31 Encounter Details Date Type Department Care Team (Latest Contact Info) Description 09/23/2022 8:11 AM CDT - 09/23/2022 11:59 PM CDT Hospital Encounter Department of Laboratory Medicine in [place], [place] [address] [place] [phone] Mari Noguera M.D. [address] [place] [address] Multiple Myeloma Not Having Achieved [...] week 06/11/2021 How often do you attend [facility] or episcopalian services? 1 to 4 times per year 06/11/2021 Do you belong to any clubs o r organizations such as spiritism groups, unions, fraternal or athletic groups, or [...] Answer Date Recorded PHQ-2 Score 4 11/18/2021 [facility] of Occupat ional Health - Occupational Stress [...] or open. 21 capsule 0 09/23/2022 10/17/2022 magnesium chloride (MAG-DELAY) [address] tablet Take 140 mg by mouth. 0 09/01/20222022 penicillin V potassium (VEETIDS) 500 mg tablet Take 1 tablet (500 mg total) by mouth 2 (two) times a day. 60 tablet 11 12/01/2021 12/08/2022 documented as of this encounter Plan of Treatment Upcoming Encounters Date Type Department Care Team (Late st Contact Info) Description 03/16/2023 10:30 AM MATH INTERVENTIONIST Appointment Department of Laboratory Medicine in [address] [place] [phone] Mari Noguera M.D. [address] [place], [place] [phone] 03/17/2023 8:40 AM MATH INTERVENTIONIST Office Visit Department of Oncology in [place] [address] [place] [phone] Mari Noguera M.D. [facility] [place] [phone] 03/17/2023 9:45 AM MATH INTERVENTIONIST Infusion Department of Infusion Therapy in [place] [address] [place] [address] Mari Noguera M.D. [facility] [place] [address] 03/31/2023 10:10 AM MATH INTERVENTIONIST Appointment Department of Laboratory Medicine in [address] [phone] Mari Noguera M.D. [address] [place] [phone] 04/04/2023 8:20 AM MATH INTERVENTIONIST Office Visit Department of Oncology in [place] [address] [place] [address] Mari Noguera M.D. [address] [place] [phone] 04/04/2023 9:00 AM MATH INTERVENTIONIST Infusion Department of Infusion Therapy in [address] [phone] Mari Noguera M.D. [address] [place] [phone] 04/13/2023 10:10 AM MATH INTERVENTIONIST Appointment Department of Laboratory Medicine in [address] [phone] Mari Noguera M.D. [address] [place] [address], [place] [address] 04/14/2023 9:00 AM MATH INTERVENTIONIST Infusion Department of Infusion Therapy in [place], [place] [address] [place] [address] Mari Noguera M.D. [address] [place] [address], [place] [phone] documented as of this encounter Procedures Procedure Name Priority Date/Time Associated Diagnosis Comments MONOCLONAL PROTEIN STUDY (MPSS), EXPANDED PANEL, S Routine 09/23/2022 8:23 AM CDT Multiple Myeloma Not Having Achieved Remission (HCC) CBC WITH DIFFERENTIAL, B Routine 09/23/2022 8:23 AM CDT Multiple Myeloma Not Having Achieved Remission (HCC) documented in this encounter Results * (ABNORMAL) CBC with Differential, Blood (09/23/2022 8:23 AM CDT) Hemoglobin 11.3(L) 11.6 - 15.0 g/dL 09/23/2022 [...] CDT Mari Noguera M.D. LAB BLOOD ADD-ON [facility] [address] [place] [address], [facility] RDWG [facility] in [place] [address] [place] [phone] * (ABNORMAL) Monoclonal Protein Study, Expanded Panel (09/23/2022 8:23 AM CDT) Total Protein, S 5.7(L) 6.3 - 7.9 g/dL 09/23/2022 3:32 PM CDT ECLR [place] Free Light Chain, S 1.50 0.3300 - 1.94 mg/dL 09/26/2022 9:21 AM CDT ECLR [place] Free Light Chain, S 1.42 0.5700 - 2.63 mg/dL 09/26/2022 9:21 AM CDT ECLR [place]/Lambda FLC Ratio 1.06 0.2600 - 1.65 09/26/2022 [...] AM CDT 09/23/2022 2:49 PM CDT Narrative [facility] - 09/27/2022 9:26 AM CDT Specimen Information: Specimen ID: [id number] Specimen Type: Blood Specimen Collection Start Date: 09/23/2022 ??8:23 AM Specimen Received Date: 09/23/2022 ??2:49 PM Specimen ID: [id number] Specimen Type: Blood Specimen Collection Start Date: 09/23/2022 ??8:23 AM Specimen Received Date: 09/23/2022 ??2:49 PM Specimen ID: [id number] Specimen Type: Blood Specimen Collection Start Date: 09/23/2022 ??8:23 AM Specimen Received Date: 09/23/2022 ??2:49 PM Mari Noguera M.D. LAB BLOOD ADD-ON [facility] [address] [place] [address], [place] ECLR [facility] in [place] [address] [place] [address] ECLR [address] [facility] [address] [place] [address] documented in this encounter Visit Diagnoses Diagnosis Multiple Myeloma Not Having Achieved Remission (HCC) documented in this encounter Additional Health Concerns Infection Onset Date Last Indicated Resolved Time Protective Environment 06/03/2022 06/03/2022 documented as of this encounter Care Teams Glucose And Syrup Weigher Relationship Specialty Start Date End Date Elsewhere, Pcp PCP - General Internal Medicine 04/01/22 documented as of this encounter
--- OUTSIDE RECORDS SUMMARY | 2023-03-08 08:53 | XMS_ITS | Encounter Summary ---
Author Name Unknown Organization [facility] Address [address] [place] [address] Care Team Providers Care Towboat Engineer Name Role Phone Elsewhere, Pcp Primary Care Provider Unavailabl e Reason for Visit * Reason Comments Med Refill Encounter Details Date Type Department Care Team (Late st Contact Info) Description 08/23/2022 Refill Department of Oncology in [place], [place] [address] [place] [phone] Leatha Redman M.D. [address] [place] [address] Med Refill Social History Tobacco Use Types [...] How often do you attend [facility] or worship services? 1 to 4 times per year 06/11/2021 Do you belong to any clubs o r organizations such as judaism groups, unions, fraternal or athletic groups, or [...] [facility] of Occupat ional Health - Occupational Stress [...] st Contact Info) Description 03/16/2023 10:30 AM SYSTEM CONFIGURATION SPECIALIST Appointment Department of Laboratory Medicine in [address] [phone] Mari Noguera M.D. [address] [place] [phone] 03/17/2023 8:40 AM SYSTEM CONFIGURATION SPECIALIST Office Visit Department of Oncology in [place] [address] [address] [facility] [place] [phone] Mari Noguera M.D. [address] [place] [phone] 03/17/2023 9:45 AM SYSTEM CONFIGURATION SPECIALIST Infusion Department of Infusion Therapy in [address] [place] [phone] Mari Noguera M.D. [address] [place] [phone] 03/31/2023 10:10 AM SYSTEM CONFIGURATION SPECIALIST Appointment Department of Laboratory Medicine in [address] [phone] Mari Noguera M.D. [address] [place] [phone] 04/04/2023 8:20 AM SYSTEM CONFIGURATION SPECIALIST Office Visit Department of Oncology in [address] [phone] Mari Noguera M.D. [address] [place] [phone] 04/04/2023 9:00 AM SYSTEM CONFIGURATION SPECIALIST Infusion Department of Infusion Therapy in [address] [phone] Mari Noguera M.D. [address] [place] [phone] 04/13/2023 10:10 AM SYSTEM CONFIGURATION SPECIALIST Appointment Department of Laboratory Medicine in [address] [address] Mari Noguera M.D. [address] [place] [phone] 04/14/2023 9:00 AM SYSTEM CONFIGURATION SPECIALIST Infusion Department of Infusion Therapy in [place], [place] [address] [place] [phone] Mari Noguera M.D. [address] [place] [phone] documented as of this encounter Visit Diagnoses Diagnosis Multiple Myeloma Not Having Achieved Remission (HCC) documented in this encounter Additional Health Concerns Infection Onset Date Last Indicated Resolved Time Protective Environment 06/03/2022 06/03/2022 documented as of this encounter Care Teams Towboat Engineer Relationship Specialty Start Date End Date Elsewhere, Pcp PCP - General Internal Medicine 04/01/22 documented as of this encounter
--- OUTSIDE RECORDS SUMMARY | 2023-03-08 08:53 | XMS_ITS | Encounter Summary ---
Author Name Unknown Organization [facility] Address [address] [place] [address] Care Team Providers Care Truck Packer Name Role Phone Elsewhere, Pcp Primary Care [...] / 17 total visits Mari Noguera M.D. [address] [place] [address] [facility] Region Referral ID Status Reason Start Date Expiration Date V isits Requested Visits Authorized [id number] Authorized 05/28/2021 02/27/2024 31 31 Encounter Details Date Type Department Care Team (Late st Contact Info) Description 09/09/2022 3:45 PM CDT Infusion Department of Infusion Therapy in [place], [place] [address] [place] [address] [phone] Mari Noguera M.D. [address] [place] [phone] Multiple Myeloma Not Having Achieved Remission [...] How often do you attend chur or druze services? 1 to 4 times per year 06/11/2021 Do you belong to any clubs o r organizations such as uatsdin groups, unions, fraternal or athletic groups, or [...] Answer Date Recorded PHQ-2 Score 4 11/18/2021 [facility] - Occupational Stress Questionnaire Answer Date Recorded [...] Sign Reading Time Taken Comments Blood Pressure 160/70 09/09/2022 3:56 PM CDT Pulse 59 09/09/2022 3:56 PM CDT Temperature 36.3 ??C (97.3 ??F) 09/09/2022 3:56 PM CD T Respiratory Rate 18 09/09/2022 3:56 PM CDT Oxygen Saturation 100% 09/09/2022 3:56 PM CDT Inhaled Oxygen Concentration - - Weight - - Height - - Body Mass Index - - documented in this encounter Plan of Treatment Upcoming Encounters Date Type Department Care Team (Late st Contact Info) Description 03/16/2023 10:30 AM DIGITAL ENGINEER Appointment Department of Laboratory Medicine in [address] [phone] Mari Noguera M.D. [address] [place] [phone] 03/17/2023 8:40 AM DIGITAL ENGINEER Office Visit Department of Oncology in [address] [phone] Mari [place] [phone] 03/17/2023 9:45 AM DIGITAL ENGINEER Infusion Department of Infusion Therapy in [address] [phone] Mari Noguera M.D. [address] [place] [phone] 03/31/2023 10:10 AM DIGITAL ENGINEER Appointment Department of Laboratory Medicine in [address] [phone] Mari Noguera M.D. [address] [place] [phone] 04/04/2023 8:20 AM DIGITAL ENGINEER Office Visit Department of Oncology in [address] [phone] Mari Noguera M.D. [address] [place] [phone] 04/04/2023 9:00 AM DIGITAL ENGINEER Infusion Department of Infusion Therapy in [address] [phone] Mari Noguera M.D. [address] [place] [phone] 04/13/2023 10:10 AM DIGITAL ENGINEER Appointment Department of Laboratory Medicine in [address] [phone] Mari Noguera M.D. [address] [place] [phone] 04/14/2023 9:00 AM DIGITAL ENGINEER Infusion Department of Infusion Therapy in [address] [phone] Mari Noguera M.D. [address] [place] [phone] documented as of this encounter Visit Diagnoses [...] BSA from Measured weight), subcutaneous, Once, On Mon09/09/22 at 1615, For 1 dose, Rotate injection site. Given 09/09/2022 5:14 PM CDT 2.5 mg Left Lower Abdomen documented in this encounter Additional Health Concerns Infection Onset Date Last Indicated Resolved Time Protective Environment 06/03/2022 06/03/2022 documented as of this encounter Care Teams Truck Packer Relationship Specialty Start Date End Date Elsewhere, Pcp PCP - General Internal Medicine 04/01/22 documented as of this encounter
--- OUTSIDE RECORDS SUMMARY | 2023-03-08 08:53 | XMS_ITS | Encounter Summary ---
Author Name Unknown Organization [facility] Address [address] [place] [address] Care Team Providers Care Financial Aid Director Name Role Phone Elsewhere, Pcp Primary Care Provider Unavailabl e Reason for Visit * Reason Comments Follow-up Encounter Details Date Type Department Care Team (Late st Contact Info) Description 08/26/2022 2:00 PM CDT Office Visit Department of Oncology in [place], [place] [address] [place] [address] Mari Noguera M.D. [address] [place] [phone] Transplant Stem Cell (HCC) (Primary Dx); Multiple Myeloma Not Having Achieved Remission (HCC); Aftercare Transplant Bone Marrow (HCC); Bronchitis Social History Tobacco Use Types Packs/Day Years [...] any clubs o r organizations such as buddhism groups, unions, fraternal or athletic groups, or [...] Answer Date Recorded PHQ-2 Score 4 11/18/2021 [facility] - Occupational [...] Sign Reading Time Taken Comments Blood Pressure 171/69 08/26/2022 2:00 PM CDT Man ual Pulse 46 08/26/2022 1:51 PM CDT Temperature 36.2 ??C (97.2 ??F) 08/26/2022 1:51 PM CD T Respiratory Rate - - Oxygen Saturation 91% 08/26/2022 1:51 PM CDT Room air Inhaled Oxygen Concentration - - Weight 82.6 kg (182 lb 1.6 oz) 08/26/2022 1:51 P M CDT Height - - Body Mass Index 33.94 12/10/2021 1:49 PM CDT documented in this encounter Progress Notes * Mari Noguera M.D. - 08/26/2022 2:00 PM CDT SUBJECTIVE PRIMARY CARE PHYSICIAN ELSEWHERE, PCP [...] chains: kappa: 8.01 mg/L; lambda: 33.64 mg/L; [place]:Lambda Ratio: 0.24 SPEP: M-spike: 3.26 g/dL Immunofixation: [...] is seen to reassess prior to cycle 5 of maintenance Revlimid/Velcade in the post ASCT setting. 1 week ago she developed some chest congestion, saw her primary provider who heard adventitious lung sounds and prescribed a course of azithromycin, she is completed 4 of a planned 5 days. Herchest congestion has almost completely resolved. She was afebrile, she did not have any significant cough with this. Chest x-ray was not obtained given clinical concern for bronchitis or pneumonia. She continues to tolerate maintenance therapy well. No peripheral neuropathy, outside this past week her energy level has been excellent. 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 Treadwell will continue maintenance therapy with every other week bortezomib 1.3 mg/m2 and lenalidomide 10 mg 21 of 28 days, cycle #4 today. Myeloma indices were drawn prior to her visit today, not yet resulted. Recent treatment for URI, symptoms have almost completely resolved. She will complete her course 5 day azithromycin tomorrow. No contraindication to treatment today. Post transplant immunizations: She has already received the flu vaccine, started COVID vaccinationsin April through her primary care provider. Posttransplant vaccines began 6 months after transplantthrough her primary care provider. These were supposed to begin in May however she had a contact dermatitis and now more recently a URI. She plans on contacting her primary provider next week to initiate posttransplant vaccinations. Antibiotic prophylaxis: She should continue with Pen [...] st Contact Info) Description 03/16/2023 10:30 AM MOTOR DRIVER Appointment Department of Laboratory Medicine in [address] [phone] Mari Noguera M.D. [address] [place] [address] [phone] 03/17/2023 8:40 AM MOTOR DRIVER Office Visit Department of Oncology in [address] [phone] Mari Noguera M.D. [address] [place] [address] [phone] 03/17/2023 9:45 AM MOTOR DRIVER Infusion Department of Infusion Therapy in [place] [address] [place] [phone] Mari Noguera M.D. [facility] [place] [phone] 03/31/2023 10:10 AM MOTOR DRIVER Appointment Department of Laboratory Medicine in [address] [phone] Mari Noguera M.D. [address] [place] [phone] 04/04/2023 8:20 AM MOTOR DRIVER Office Visit Department of Oncology in [address] [phone] Mari Noguera M.D. [address] [place] [phone] 04/04/2023 9:00 AM MOTOR DRIVER Infusion Department of Infusion Therapy in [place] [address] [place] [address] Mari Noguera M.D. [address] [place] [phone] 04/13/2023 10:10 AM MOTOR DRIVER Appointment Department of Laboratory Medicine in [address] [place] [address] Mari Noguera M.D. [address] [place] [address] [phone] 04/14/2023 9:00 AM MOTOR DRIVER Infusion Department of Infusion Therapy in [address] [place] [phone] Mari Noguera M.D. [address] [place] [phone] documented as of this encounter Visit Diagnoses Diagnosis Transplant Stem Cell (HCC)- Primary Multiple Myeloma Not Having Achieved Remission (HCC) Aftercare Transplant Bone Marrow (HCC) Bronchitis documented in this encounter Additional Health Concerns Infection Onset Date Last Indicated Resolved Time Protective Environment 06/03/2022 06/03/2022 documented as of this encounter Care Teams Financial Aid Director Relationship Specialty Start Date End Date Elsewhere, Pcp PCP - General Internal Medicine 04/01/22 documented as of this encounter
--- OUTSIDE RECORDS SUMMARY | 2023-03-08 08:54 | XMS_ITS | Encounter Summary ---
Author Name Unknown Organization [facility] Address [address] [place] [address] Care Team Providers Care Food Porter Name Role Phone Elsewhere, Pcp Primary Care Provider Unavailabl e Encounter Details Date Type Department Care Team (Late st Contact Info) Description 08/11/2022 Orders Only [facility] in [place], [place] [address] [place] [address] Jeannie Headley, MARIE, C.N.P., D.N.P., M.S.N. [address] [place] [address] Social History Tobacco Use Types Packs/Day Years [...] How often do you attend chur or christian services? 1 to 4 times per year 06/11/2021 Do you belong to any clubs o r organizations such as baptism groups, unions, fraternal or athletic groups, or [...] Answer Date Recorded PHQ-2 Score 4 11/18/2021 [facility] Occupat ional Health - [...] place to sleep or slept in a prison (including now)? No 06/11/2021 Nutrition Answer Date [...] st Contact Info) Description 03/16/2023 10:30 AM LAMP WIRER Appointment Department of Laboratory Medicine in [address] [phone] Mari Noguera M.D. [address] [place] [phone] 03/17/2023 8:40 AM LAMP WIRER Office Visit Department of Oncology in [address] [phone] Mari Noguera M.D. [address] [place] [phone] 03/17/2023 9:45 AM LAMP WIRER Infusion Department of Infusion Therapy in [address] [phone] Mari Noguera M.D. [address] [place] [phone] 03/31/2023 10:10 AM LAMP WIRER Appointment Department of Laboratory Medicine in [address] [phone] Mari Noguera M.D. [address] [place] [phone] 04/04/2023 8:20 AM LAMP WIRER Office Visit Department of Oncology in [address] [phone] Mari Noguera M.D. [address] [place] [phone] 04/04/2023 9:00 AM LAMP WIRER Infusion Department of Infusion Therapy in [address] [phone] Mari Noguera M.D. [address] [place] [phone] 04/13/2023 10:10 AM LAMP WIRER Appointment Department of Laboratory Medicine in [address] [place] [address] Mari Noguera M.D. [address] [place] [phone] 04/14/2023 9:00 AM LAMP WIRER Infusion Department of Infusion Therapy in [address] [phone] Mari Noguera M.D. [address] [place] [phone] documented as of this encounter Visit Diagnoses Not on filedocumented in this encounter Additional Health Concerns Infection Onset Date Last Indicated Resolved Time Protective Environment 06/03/2022 06/03/2022 documented as of this encounter Care Teams Food Porter Relationship Specialty Start Date End Date Elsewhere, Pcp PCP - General Internal Medicine 04/01/22 documented as of this encounter
--- OUTSIDE RECORDS SUMMARY | 2023-03-08 08:54 | XMS_ITS | Encounter Summary ---
Author Name Unknown Organization [facility] Address [address] [place] [address] Care Team Providers Care Standpipe Tender Name Role Phone Elsewhere, Pcp Primary Care Provider Unavailabl e Reason for Referral * Outpatient (Routine) Specialty Diagnoses / Procedures Referred By Guillermina zamora Referred To Contact Hematology Oncology Mari Noguera M.D. [address] [place] [phone] [facility] Region Referral ID Status Reason Start Date Expiration Date Visits Re quested Visits Authorized Encounter Details Date Type Department Care Team (Late st Contact Info) Description 08/19/2022 Orders Only Department of Oncology in [address] [phone] Mari Noguera M.D. [address] [place] [phone] Multiple Myeloma Not Having Achieved [...] week 06/11/2021 How often do you attend [facility] or yarsanism services? 1 to 4 times [...] Score 4 11/18/2021 [facility] - Occupational Stress Questionnaire Answer [...] st Contact Info) Description 03/16/2023 10:30 AM PHYSICIST NUCLEAR Appointment Department of Laboratory Medicine in [address] [place] [address] Mari Noguera M.D. [address] [place] [phone] 03/17/2023 8:40 AM PHYSICIST NUCLEAR Office Visit Department of Oncology in [address] [phone] Mari Noguera M.D. [address] [place] [phone] 03/17/2023 9:45 AM PHYSICIST NUCLEAR Infusion Department of Infusion Therapy in [address] [phone] Mari Noguera M.D. [address] [place] [phone] 03/31/2023 10:10 AM PHYSICIST NUCLEAR Appointment Department of Laboratory Medicine in [address] [place] [address] Mari Noguera M.D. [address] [place] [phone] 04/04/2023 8:20 AM PHYSICIST NUCLEAR Office Visit Department of Oncology in [address] [phone] Mari Noguera M.D. [address] [place] [phone] 04/04/2023 9:00 AM PHYSICIST NUCLEAR Infusion Department of Infusion Therapy in [address] [phone] Mari Noguera M.D. [address] [place] [phone] 04/13/2023 10:10 AM PHYSICIST NUCLEAR Appointment Department of Laboratory Medicine in [place] [address] [place] [phone] Mari Noguera M.D. [address] [place] [phone] 04/14/2023 9:00 AM PHYSICIST NUCLEAR Infusion Department of Infusion Therapy in [address] [phone] Mari Noguera M.D. [address] [place] [phone] Scheduled Referrals Name Type Priority Associated Diagnoses Order Schedule Hematology office visit (clinic) [facility] Region; Pre-Chemo Outpatient Referral Routine Multiple Myeloma Not Having Achieved Remission (HCC) Expected: 10/07/2022, Expires: 10/08/2023 documented as of this encounter Results * [...] CDT Mari Noguera M.D. LAB BLOOD ADD-ON [facility] [address] [place] [address], [facility] [place] [address] [place] [address] * (ABNORMAL) CBC with Differential, Blood (10/07/2022 [...] CDT Mari Noguera M.D. LAB BLOOD ADD-ON [facility] [address] [place] [address], [facility] [place] [address] [place] [phone] documented in this encounter Visit Diagnoses Diagnosis Multiple Myeloma Not Having Achieved Remission (HCC)- Primary documented in this encounter Additional Health Concerns Infection Onset Date Last Indicated Resolved Time Protective Environment 06/03/2022 06/03/2022 documented as of this encounter Care Teams Standpipe Tender Relationship Specialty Start Date End Date Elsewhere, Pcp PCP - General Internal Medicine 04/01/22 documented as of this encounter
--- OUTSIDE RECORDS SUMMARY | 2023-03-08 08:54 | XMS_ITS | Encounter Summary ---
Author Name Unknown Organization [facility] Address [address] [place] [address] Care Team Providers Care Dish Room Worker Name Role Phone Elsewhere, Pcp Primary Care Provider Unavailabl e Reason for Visit * Reason Onset Date Comments Pre-visit Intake 08/18/2022 Encounter Details Date Type Department Care Team (Latest Contact Info) Description 08/18/2022 Clinical Communication Section of Infectious Diseases in [place], [place] [address] [place] [address] Kaya Roger, RAbrahamNAbraham [address] [place] [address] Pre-visit Intake Social History Tobacco Use Types Packs/Day Years [...] How often do you attend chur or faith services? 1 to 4 times per year [...] Answer Date Recorded PHQ-2 Score 4 11/18/2021 [facility] Questionnaire Answer Date [...] place to sleep or slept in a residential (including now)? No 06/11/2021 Nutrition Answer Date [...] encounter Miscellaneous Notes * Telephone Encounter - Kaya Roger R.N. - 08/18/2022 11:10 AM CDT Pre-Appt Vaccine Chart Review Pt Type: Post SCT Date of Transplant 12/02/21 Visit # 1 SCT Graft Vs Host Disease: N/A Pt is Immunosuppressed: Yes Vaccine Hx in Epic: Yes Titers Completed: N/A Vaccines Ordered: SCT Visit #1 Additional Vaccines Needed: Covid #2 Pfizer Missing Orders: Can order via Protocol Additional Notes: See Travel/Imm Nurse note from 07/11/22. documented in this encounter Plan of Treatment Upcoming Encounters Date Type Department Care Team (Late st Contact Info) Description 03/16/2023 10:30 AM DOSIER OPERATOR Appointment Department of Laboratory Medicine in [address] [phone] Mari Noguera M.D. [address] [place] [phone] 03/17/2023 8:40 AM DOSIER OPERATOR Office Visit Department of Oncology in [address] [phone] Mari Noguera M.D. [address] [place] [phone] 03/17/2023 9:45 AM DOSIER OPERATOR Infusion Department of Infusion Therapy in [address] [phone] Mari Noguera M.D. [address] [place] [phone] 03/31/2023 10:10 AM DOSIER OPERATOR Appointment Department of Laboratory Medicine in [address] [phone] Mari Noguera M.D. [address] [place] [phone] 04/04/2023 8:20 AM DOSIER OPERATOR Office Visit Department of Oncology in [address] [phone] Mari Noguera M.D. [address] [place] [phone] 04/04/2023 9:00 AM DOSIER OPERATOR Infusion Department of Infusion Therapy in [place] [address] [place] [phone] Mari Noguera M.D. [address] [place] [phone] 04/13/2023 10:10 AM DOSIER OPERATOR Appointment Department of Laboratory Medicine in [address] [phone] Mari Noguera M.D. [address] [place] [phone] 04/14/2023 9:00 AM DOSIER OPERATOR Infusion Department of Infusion Therapy in [address] [phone] Mari Noguera M.D. [address] [place] [phone] documented as of this encounter Visit Diagnoses Not on filedocumented in this encounter Additional Health Concerns Infection Onset Date Last Indicated Resolved Time Protective Environment 06/03/2022 06/03/2022 documented as of this encounter Care Teams Dish Room Worker Relationship Specialty Start Date End Date Elsewhere, Pcp PCP - General Internal Medicine 04/01/22 documented as of this encounter
--- OUTSIDE RECORDS SUMMARY | 2023-03-08 08:54 | XMS_ITS | Encounter Summary ---
Author Name Unknown Organization [facility] Address [address] [place] [address] Care Team Providers Care Advertising Account Executive Name Role Phone Elsewhere, Pcp Primary Care Provider Unavailabl e Encounter Details Date Type Department Care Team (Late st Contact Info) Description 08/03/2022 Orders Only Department of Oncology in [place], [place] [address] [place] [phone] Anna Rosa RAbrahamNAbraham [address] [place] [address] Multiple Myeloma Not Having Achieved Remission (HCC) [...] often do you attend chur ch or baptism services? 1 to 4 times [...] [facility] [place] [facility]ational Stress Questionnaire Answer [...] st Contact Info) Description 03/16/2023 10:30 AM VISION THERAPIST Appointment Department of Laboratory Medicine in [place], [place] [address] [place] [phone] Mari Noguera M.D. [address] [place] [phone] 03/17/2023 8:40 AM VISION THERAPIST Office Visit Department of Oncology in [place] [address] [facility] [place] [address] Mari Noguera M.D. [facility] [place] [phone] 03/17/2023 9:45 AM VISION THERAPIST Infusion Department of Infusion Therapy in [address] [place] [address] Mari Noguera M.D. [address] [place] [phone] 03/31/2023 10:10 AM VISION THERAPIST Appointment Department of Laboratory Medicine in [address] [phone] Mari Noguera M.D. [address] [place] [phone] 04/04/2023 8:20 AM VISION THERAPIST Office Visit Department of Oncology in [address] [place] [phone] Mrai Noguera M.D. [address] [place] [phone] 04/04/2023 9:00 AM VISION THERAPIST Infusion Department of Infusion Therapy in [address] [place] [address] Mari Noguera M.D. [address] [place] [phone] 04/13/2023 10:10 AM VISION THERAPIST Appointment Department of Laboratory Medicine in [address] [phone] Mari Noguera M.D. [address] [place] [phone] 04/14/2023 9:00 AM VISION THERAPIST Infusion Department of Infusion Therapy in [place], [place] [address] [place] [phone] Mari Noguera M.D. [address] [place] [phone] documented as of this encounter Visit Diagnoses Diagnosis Multiple Myeloma Not Having Achieved Remission (HCC)- Primary documented in this encounter Additional Health Concerns Infection Onset Date Last Indicated Resolved Time Protective Environment 06/03/2022 06/03/2022 documented as of this encounter Care Teams Advertising Account Executive Relationship Specialty Start Date End Date Elsewhere, Pcp PCP - General Internal Medicine 04/01/22 documented as of this encounter
--- OUTSIDE RECORDS SUMMARY | 2023-03-08 08:54 | XMS_ITS | Encounter Summary ---
Author Name Unknown Organization [facility] Address [address] [place] [address] Care Team Providers Care Field Care Advocate Name Role Phone Elsewhere, Pcp Primary Care Provider Unavailabl e Reason for Visit * Episode Based Medications (Routine) - Authorized Specialty Diagnoses / Procedures Referred By Guillermina zamora Referred To Contact Diagnoses Multiple Myeloma Not Having Achieved Remission (HCC) Procedures MD ONDANSETRON HCL INJECTION MD DARATUMUMAB, HYALURONIDASE MD BORTEZOMIB INJECTION 1,800 mg on Day 1, 8, 15, 22 for cycles 1 & 2, Day 1, 15 3-6, Day 1 for cycle 7 / 28 day cycles / 17 total visits Mari Noguera M.D. [address] [place] [address] [facility] Region Referral ID Status Reason Start Date Expiration Date V isits Requested Visits Authorized [id number] Authorized 05/28/2021 02/27/2024 31 31 Encounter Details Date Type Department Care Team (Latest Contact Info) Description 08/03/2022 9:57 AM CDT - 08/03/2022 11:59 PM CDT Hospital Encounter Department of Laboratory Medicine in [place], [place] [address] [place] [phone] Mari Noguera M.D. [address] [place] [phone] Multiple Myeloma Not Having Achieved [...] How often do you attend [facility] or catholic services? 1 to 4 times per [...] (two) times a day. 60 capsule 11 11/30/2021 08/11/[address] tablet Take 325 [...] cycle. 21 capsule 0 07/03/2022 08/31/2022 lenalidomide (REVLIMID) 10 mg capsuleIndications:Mu ltiple Myeloma Not Having Achieved Remission (HCC) Take 1 capsule (10 mg total) by mouth daily. Take on days 1 through 21 of cycle. Take whole with water. Do not break, chew, or open. 21 capsule 0 08/03/2022 08/23/2022 penicillin V potassium (VEETIDS) 500 mg tablet Take 1 tablet (500 mg total) by mouth 2 (two) times a day. 60 tablet 11 12/01/2021 12/08/2022 RX WELCOME ARKUOM-STHHRQBTE-DY ONLY Welcome packet 1 each 0 04/26/2022 08/31/2022 documented as of this encounter Plan of Treatment Upcoming Encounters Date Type Department Care Team (Late st Contact Info) Description 03/16/2023 10:30 AM MOLD STACKER Appointment Department of Laboratory Medicine in [place], [place] [address] [place] [address] Mari Noguera M.D. [address] [place] [phone] 03/17/2023 8:40 AM MOLD STACKER Office Visit Department of Oncology in [address] [phone] Mari Noguera M.D. [address] [place] [phone] 03/17/2023 9:45 AM MOLD STACKER Infusion Department of Infusion Therapy in [address] [phone] Mari Noguera M.D. [address] [place] [phone] 03/31/2023 10:10 AM MOLD STACKER Appointment Department of Laboratory Medicine in [place], [place] [address] [place] [address] Mari Noguera M.D. [address] [place] [phone] 04/04/2023 8:20 AM MOLD STACKER Office Visit Department of Oncology in [address] [phone] Mari Noguera M.D. [address] [place] [phone] 04/04/2023 9:00 AM MOLD STACKER Infusion Department of Infusion Therapy in [address] [place] [phone] Mari Noguera M.D. [address] [place] [phone] 04/13/2023 10:10 AM MOLD STACKER Appointment Department of Laboratory Medicine in [place] [address] [facility] [phone] Mari Noguera M.D. [address] [place] [phone] 04/14/2023 9:00 AM MOLD STACKER Infusion Department of Infusion Therapy in [place] [address] [place] [phone] Mari Noguera M.D. [address] [place] [phone] documented as of this encounter Procedures Procedure Name Priority Date/Time Associated Diagnosis Comments CBC WITH DIFFERENTIAL, B Routine 08/03/2022 10:15 AM CDT Multiple Myeloma Not Having Achieved Remission (HCC) COMPREHENSIVE METABOLIC PANEL, S/P Routine 08/03/2022 10:15 AM CDT Multiple Myeloma Not Having Achieved Remission (HCC) documented in this encounter Results * (ABNORMAL) Comprehensive Metabolic Panel (08/03/2022 10:15 AM CDT) Pathologist [facility] Potassium, P 5.0 3.6 - 5.2 mmol/L 08/03/2022 10:53 AM CDT R[facility] Sodium, P 139 135 - 145 mmol/L 08/03/2022 10:53 AM CDT [facility] Chloride, P 106 98 - 107 mmol/L 08/03/2022 10:53 AM CDT R[facility] Bicarbonate, P 26 22 - 29 mmol/L 08/03/2022 10:53 AM CDT R[facility] Anion Gap, P 7 7 - 15 08/03/2022 10:53 AM CDT R[facility] BUN (Blood Urea Nitrogen), P 19 6 - 21 mg/dL 08/03/2022 10:53 AM CDT R[facility] Creatinine 1.09(H) 0.59 - 1.04 mg/dL 08/03/2022 10:53 AM CDT R[facility] Estimated GFR (eGFR) 53(L) >=60 mL/min/BS A 08/03/2022 10:53 AM CDT RDWG Comment: Estimated GFR calculated using the 2020 CKD_EPI creatinine equation. Calcium, Total, P 9.6 8.8 - 10.2 mg/dL 08/03/2022 10:53 AM CDT [facility] Glucose, P 91 70 - 140 mg/dL 08/03/2022 10:53 AM CDT [facility] Protein, Total, P 6.3 6.3 - 7.9 g/dL 08/03/2022 10:53 AM CDT [facility] Albumin, P 3.7 3.5 - 5.0 g/dL 08/03/2022 10:53 AM CDT [facility] Aspartate Aminotransferase (AST), P 21 8 - 43 U/L 08/03/2022 10:53 AM CDT [facility] Alkaline Phosphatase, P 68 35 - 104 U/L 08/03/2022 10:53 AM CDT [facility] Alanine Aminotransferase (ALT), P 11 7 - 45 U/L 08/03/2022 10:53 AM CDT [facility] Bilirubin, Total, P 0.3 <=1.2 mg/dL 08/03/2022 10:53 AM CDT [facility] Blood (Blood, Venous) 08/03/2022 10:15 AM CDT 08/03/2022 10:18 AM CDT Mari Noguera M.D. LAB BLOOD ADD-ON [facility] [address] [facility] [place] [place] [address], [facility] R[facility] in [place] [address] [place] [address] * (ABNORMAL) CBC with Differential, Blood (08/03/2022 10:15 AM CDT) [facility] [place] Hemoglobin 11.9 11.6 - 15.0 g/dL 08/03/2022 10:20 AM CDT [facility] Hematocrit 38.8 35.5 - 44.9 % 08/03/2022 10:20 AM CDT [facility] Erythrocytes 4.16 3.92 - 5.13 x10(12)/L 08/03/2022 10:20 AM CDT [facility] MCV 93.3 78.2 - 97.9 fL 08/03/2022 10:20 AM CDT R[facility] RBC Distrib Width 15.2 12.2 - 16.1 % 08/03/2022 10:20 AM CDT [facility] Platelet Count 109(L) 157 - 371 x10(9)/L 08/03/2022 10:20 AM CDT [facility] Leukocytes 3.2(L) 3.4 - 9.6 x10(9)/L 08/03/2022 10:20 AM CDT [facility] Neutrophils 1.92 1.56 - 6.45 x10(9)/L 08/03/2022 10:20 AM CDT [facility] Lymphocytes 0.71(L) 0.95 - 3.07 x10(9)/L 08/03/2022 10:20 AM CDT [facility] Monocytes 0.39 0.26 - 0.81 x10(9)/L 08/03/2022 10:20 AM CDT [facility] Eosinophils 0.17 0.03 - 0.48 x10(9)/L 08/03/2022 10:20 AM CDT [facility] Basophils 0.03 0.01 - 0.08 x10(9)/L 08/03/2022 10:20 AM CDT [facility] Blood (Blood, Venous) 08/03/2022 10:15 AM CDT 08/03/2022 10:18 AM CDT Mari Noguera M.D. LAB BLOOD ADD-ON [facility] [address] [place] [address] [address], [facility] RDWG [facility] in [place] [address] [place] [phone] documented in this encounter Visit Diagnoses Diagnosis Multiple Myeloma Not Having Achieved Remission (HCC) documented in this encounter Additional Health Concerns Infection Onset Date Last Indicated Resolved Time Protective Environment 06/03/2022 06/03/2022 documented as of this encounter Care Teams Field Care Advocate Relationship Specialty Start Date End Date Elsewhere, Pcp PCP - General Internal Medicine 04/01/22 documented as of this encounter
--- OUTSIDE RECORDS SUMMARY | 2023-03-08 08:54 | XMS_ITS | Encounter Summary ---
Author Name Unknown Organization [facility] Address [address] [place] [address] Care Team Providers Care Molding Supervisor Name Role Phone Elsewhere, Pcp Primary Care Provider Unavailabl e Reason for Visit * Reason Comments Chemotherapy * Episode Based Medications (Routine) - Authorized [...] 17 total visits Mari Noguera M.D. [address] [place] [phone] [facility] Region Referral ID Status Reason Start Date Expiration Date V isits Requested Visits Authorized [id number] Authorized 05/28/2021 02/27/2024 31 31 Encounter Details Date Type Department Care Team (Late st Contact Info) Description 08/19/2022 3:45 PM CDT Infusion Department of Infusion Therapy in [place], [place] [address] [place] [phone] Mari Noguera M.D. [address] [place] [phone] Multiple Myeloma Not Having Achieved Remission [...] How often do you attend chur or rastafari services? 1 to 4 times per year 06/11/2021 Do you belong to any clubs o r organizations such as moravian groups, unions, fraternal or athletic groups, or [...] 11/18/2021 [facility] - Occupational Stress Questionnaire Answer Date [...] Sign Reading Time Taken Comments Blood Pressure 155/53 08/19/2022 3:05 PM CDT Pulse 62 08/19/2022 3:05 PM CDT Temperature 36.2 ??C (97.2 ??F) 08/19/2022 3:05 PM CD T Respiratory Rate 20 08/19/2022 3:05 PM CDT Oxygen Saturation 95% 08/19/2022 3:05 PM CDT Inhaled Oxygen Concentration - - Weight - - Height - - Body Mass Index - - documented in this encounter Progress Notes * Enid Becker R.N. - 08/19/2022 3:[address] 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 Patient to follow up with Dr. Noguera on 08/26/2022. documented in this encounter Miscellaneous Notes * Addendum Note - Rosa Costello RAbrahamN. - 08/19/2022 3:45 PM CDTAddended by: ROSA COSTELLO on: 08/19/2022 04:26 PM Modules accepted: Orders documented in this encounter Plan of Treatment Upcoming Encounters Date Type Department Care Team (Late st Contact Info) Description 03/16/2023 10:30 AM FLEET SALES MANAGER Appointment Department of Laboratory Medicine in [address] [phone] Mari Noguera M.D. [address] [place] [address], [place] [phone] 03/17/2023 8:40 AM FLEET SALES MANAGER Office Visit Department of Oncology in [place] [address] [address] [facility] [place] [phone] Mari Noguera M.D. [address] [place] [phone] 03/17/2023 9:45 AM FLEET SALES MANAGER Infusion Department of Infusion Therapy in [address] [place] [phone] Mari Noguera M.D. [address] [place] [phone] 03/31/2023 10:10 AM FLEET SALES MANAGER Appointment Department of Laboratory Medicine in [address] [phone] Mari Noguera M.D. [address] [place] [phone] 04/04/2023 8:20 AM FLEET SALES MANAGER Office Visit Department of Oncology in [address] [phone] Mari Noguera M.D. [address] [place] [phone] 04/04/2023 9:00 AM FLEET SALES MANAGER Infusion Department of Infusion Therapy in [address] [phone] Mari Noguera M.D. [address] [place] [phone] 04/13/2023 10:10 AM FLEET SALES MANAGER Appointment Department of Laboratory Medicine in [address] [place], [place] [phone] Mari Noguera M.D. [address] [place] [address], [place] [phone] 04/14/2023 9:00 AM FLEET SALES MANAGER Infusion Department of Infusion Therapy in [address] [place] [phone] Mari Noguera M.D. [address] [place] [phone] documented as of this encounter Results * (ABNORMAL) CBC with Differential, Blood (08/26/2022 1:12 PM CDT) [facility] Hemoglobin 11.8 11.6 - 15.0 g/dL 08/26/2022 [...] Noguera M.D. LAB BLOOD ADD-ON [facility] 701 [place] [address], [facility] RDWG [facility] in [place] [address] [facility] [place] [address] * (ABNORMAL) Monoclonal Protein Study, Expanded Panel (08/26/2022 1:12 PM CDT) Total Protein, S 5.7(L) 6.3 - 7.9 g/dL 08/26/2022 9:00 PM CDT ECLR [place] Free Light Chain, S 1.10 0.3300 - 1.94 mg/dL 08/29/2022 8:21 AM CDT ECLR Lambda Free Light Chain, S 1.23 0.5700 - 2.63 mg/dL 08/29/2022 8:21 AM CDT ECLR [place]/Lambda FLC Ratio 0.8943 0.2600 - 1.65 08/29/2022 [...] 1:12 PM CDT 08/26/2022 8:35 PM CDT Narrative [facility] - 08/29/2022 3:35 PM CDT Specimen Information: Specimen ID: [id number] Specimen Type: Blood Specimen Collection Start Date: 08/26/2022 ??1:12 PM Specimen Received Date: 08/26/2022 ??8:35 PM Specimen ID: [id number] Specimen Type: Blood Specimen Collection Start Date: 08/26/2022 ??1:12 PM Specimen Received Date: 08/26/2022 ??8:35 PM Specimen ID: [id number] Specimen Type: Blood Specimen Collection Start Date: 08/26/2022 ??1:12 PM Specimen Received Date: 08/26/2022 ??8:35 PM Mari Noguera M.D. LAB BLOOD ADD-ON [facility] [address] [place] [address], [facility] ECLR [facility] in [address] [address] [place] [phone] documented in this encounter Visit Diagnoses Diagnosis Multiple Myeloma Not Having Achieved Remission (HCC)- Primary Multiple Myeloma Not Having Achieved Remission (HCC) documented in this encounter Additional Health Concerns Infection Onset Date Last Indicated Resolved Time Protective Environment 06/03/2022 06/03/2022 documented as of this encounter Care Teams Molding Supervisor Relationship Specialty Start Date End Date Elsewhere, Pcp PCP - General Internal Medicine 04/01/22 documented as of this encounter
--- OUTSIDE RECORDS SUMMARY | 2023-03-08 08:54 | XMS_ITS | Encounter Summary ---
Author Name Unknown Organization [facility] Address [address] [place] [address] Care Team Providers Care Masonry Teacher Name Role Phone Elsewhere, Pcp Primary Care Provider Unavailabl e Encounter Details Date Type Department Care Team (Late st Contact Info) Description 08/09/2022 Orders Only Department of Oncology in [place], [place] [address] [place] [phone] Anna Rosa RAbrahamNAbraham [address] [place] [address] Multiple Myeloma Not Having Achieved Remission (HCC) [...] often do you attend chur ch or christianity services? 1 to 4 times per year 06/11/2021 Do you belong to any clubs o r organizations such as hindu groups, unions, fraternal or athletic groups, or [...] PHQ-2 Score 4 11/18/2021 [facility] Answer Date [...] st Contact Info) Description 03/16/2023 10:30 AM CAR WASH SUPERVISOR Appointment Department of Laboratory Medicine in [place], [place] [address] [place] [phone] Mari Noguera M.D. [address] [place] [phone] 03/17/2023 8:40 AM CAR WASH SUPERVISOR Office Visit Department of Oncology in [place] [address] [place] [address] Mari Noguera M.D. [facility] [place] [phone] 03/17/2023 9:45 AM CAR WASH SUPERVISOR Infusion Department of Infusion Therapy in [address] [place] [phone] Mari Noguera M.D. [address] [place] [phone] 03/31/2023 10:10 AM CAR WASH SUPERVISOR Appointment Department of Laboratory Medicine in [address] [phone] Mari Noguera M.D. [address] [place] [phone] 04/04/2023 8:20 AM CAR WASH SUPERVISOR Office Visit Department of Oncology in [address] [place] [address] Mari Noguera M.D. [address] [place] [phone] 04/04/2023 9:00 AM CAR WASH SUPERVISOR Infusion Department of Infusion Therapy in [address] [place] [address] Mari Noguera M.D. [address] [place] [phone] 04/13/2023 10:10 AM CAR WASH SUPERVISOR Appointment Department of Laboratory Medicine in [address] [phone] Mari Noguera M.D. [address] [place] [phone] 04/14/2023 9:00 AM CAR WASH SUPERVISOR Infusion Department of Infusion Therapy in [place], [place] [address] [place], [place] [phone] Mari Noguera M.D. 701 [facility], [place] [phone] documented as of this encounter Results [...] CDT Mari Noguera M.D. LAB BLOOD ADD-ON [facility] [address] [place] [address], [facility] RDWG [facility] in [place] [address] [facility] [place] [address] * (ABNORMAL) CBC with Differential, Blood (09/09/2022 [...] CDT Mari Noguera M.D. LAB BLOOD ADD-ON [facility] [address] [place] [address], [facility] R[facility] [place] [address] [place] [phone] * (ABNORMAL) CBC with Differential, Blood (08/19/2022 2:31 PM CDT) Hemoglobin 11.1(L) 11.6 - 15.0 g/dL 08/19/2022 2:41 PM CDT RDWG Hematocrit 35.8 35.5 - 44.9 % 08/19/2022 2:41 PM CDT RDWG Erythrocytes 3.84(L) 3.92 - 5.13 x10(12)/L 08/19/2022 2:41 PM CDT R[facility] MCV 93.2 78.2 - 97.9 fL 08/19/2022 2:41 PM CDT R[facility] RBC Distrib Width 15.9 12.2 - 16.1 % 08/19/2022 2:41 PM CDT R[facility] Platelet Count 76(L) 157 - 371 x10(9)/L 08/19/2022 2:41 PM CDT R[facility]G Leukocytes 3.6 3.4 - 9.6 x10(9)/L 08/19/2022 2:41 PM CDT R[facility] Neutrophils 2.94 1.56 - 6.45 x10(9)/L 08/19/2022 2:41 PM CDT R[facility] Lymphocytes 0.44(L) 0.95 - 3.07 x10(9)/L 08/19/2022 2:41 PM CDT R[facility] Monocytes 0.19(L) 0.26 - 0.81 x10(9)/L 08/19/2022 2:41 PM CDT RDWG Eosinophils <0.03 0.03 - 0.48 x10(9)/L 08/19/2022 2:41 PM CDT RDWG Basophils <0.03 0.01 - 0.08 x10(9)/L 08/19/2022 2:41 PM CDT RDW[facility] Blood (Blood, Venous) 08/19/2022 2:31 PM CDT 08/19/2022 2:35 PM CDT Mari Noguera M.D. LAB BLOOD ADD-ON [facility] [address] [place] [address], [facility] RDWG [facility] in [address] [phone] * (ABNORMAL) Monoclonal Protein Study, Expanded Panel (08/19/2022 2:31 PM CDT) Total Protein, S 5.8(L) 6.3 - 7.9 g/dL 08/19/2022 9:08 PM CDT ECLR [place] Free Light Chain, S 1.21 0.3300 - 1.94 mg/dL 08/22/2022 9:08 AM CDT ECLR Lambda Free Light Chain, S 1.49 0.5700 - 2.63 mg/dL 08/22/2022 9:08 AM CDT ECLR [place]/Lambda FLC Ratio 0.8121 0.2600 - 1.65 08/22/2022 9:08 AM CDT ECLR Albumin 3.9 3.4 - 4.7 g/dL 08/23/2022 12:19 PM CDT ECLR Alpha-1 Globulin 0.2 0.1 - 0.3 g/dL 08/23/2022 12:19 PM CDT ECLR Alpha-2 Globulin 0.7 0.6 - 1.0 g/dL 08/23/2022 12:19 PM CDT ECLR Beta-Globulin 0.6(L) 0.7 - 1.2 g/dL 08/23/2022 12:19 PM CDT ECLR Gamma-Globulin 0.4(L) 0.6 - 1.6 g/dL 08/23/2022 12:19 PM CDT ECLR A/G Ratio 2.11 08/23/2022 12:19 PM CDT ECLR Impression Small abnormality in gamma fraction. Reviewed and interpreted by: ??Chante Bryan M.D. 08/23/2022 12:19 PM CDT ECLR Flag, Immunofixation Positive(A) Negative 08/23/2022 11:57 AM CDT ECLR Immunofixation Monoclonal IgG lambda. Reviewed and interpreted by: ??Chante Bryan M.D. 08/23/2022 11:57 AM CDT ECLR Blood (Blood, Venous) 08/19/2022 2:31 PM CDT 08/19/2022 8:37 PM CDT [facility] - 08/23/2022 12:19 PM CDT Specimen Information: Specimen ID: [id number] Specimen Type: Blood Specimen Collection Start Date: 08/19/2022 ??2:31 PM Specimen Received Date: 08/19/2022 ??8:37 PM Specimen ID: [id number] Specimen Type: Blood Specimen Collection Start Date: 08/19/2022 ??2:31 PM Specimen Received Date: 08/19/2022 ??8:37 PM Specimen ID: [id number] Specimen Type: Blood Specimen Collection Start Date: 08/19/2022 ??2:31 PM Specimen Received Date: 08/19/2022 ??8:38 PM Mari Noguera M.D. LAB BLOOD ADD-ON [facility] [address] [place] [address], [facility] ECLR [facility] in [address] [address] [address] [place] [phone] documented in this encounter Visit Diagnoses Diagnosis Multiple Myeloma Not Having Achieved Remission (HCC)- Primary Multiple Myeloma Not Having Achieved Remission (HCC) documented in this encounter Additional Health Concerns Infection Onset Date Last Indicated Resolved Time Protective Environment 06/03/2022 06/03/2022 documented as of this encounter Care Teams Masonry Teacher Relationship Specialty Start Date End Date Elsewhere, Pcp PCP - General Internal Medicine 04/01/22 documented as of this encounter
--- OUTSIDE RECORDS SUMMARY | 2023-03-08 08:54 | XMS_ITS | Encounter Summary ---
Author Name Unknown Organization [facility] Address [address] [place] [address] Care Team Providers Care Esl Teacher Name Role Phone Elsewhere, Pcp Primary Care Provider Unavailabl e Reason for Visit * Reason Comments Med Refill Encounter Details Date Type Department Care Team (Late st Contact Info) Description 08/05/2022 Refill Garrick gilmore [facility] in [place], [place] [address] [place] [address] Jeannie Headley APRN, C.N.P., D.N.P., M.S.N. [address] [place] [address] Med Refill Social History Tobacco Use Types [...] st Contact Info) Description 03/16/2023 10:30 AM HAIRSPRING II INSPECTOR Appointment Department of Laboratory Medicine in [address] [phone] Mari Noguera M.D. [address] [place] [address], [place] [phone] 03/17/2023 8:40 AM HAIRSPRING II INSPECTOR Office Visit Department of Oncology in [place] [address] [place] [phone] Mari Noguera M.D. [address] [place] [phone] 03/17/2023 9:45 AM HAIRSPRING II INSPECTOR Infusion Department of Infusion Therapy in [address] [phone] Mari Noguera M.D. [address] [place] [phone] 03/31/2023 10:10 AM HAIRSPRING II INSPECTOR Appointment Department of Laboratory Medicine in [address] [place] [address] Mari Noguera M.D. [address] [place] [phone] 04/04/2023 8:20 AM HAIRSPRING II INSPECTOR Office Visit Department of Oncology in [address] [phone] Mari Noguera M.D. [address] [place] [phone] 04/04/2023 9:00 AM HAIRSPRING II INSPECTOR Infusion Department of Infusion Therapy in [address] [place] [phone] Mari Noguera M.D. [address] [place] [phone] 04/13/2023 10:10 AM HAIRSPRING II INSPECTOR Appointment Department of Laboratory Medicine in [place] [address] [place] [address] Mari Noguera M.D. [address] [place] [phone] 04/14/2023 9:00 AM HAIRSPRING II INSPECTOR Infusion Department of Infusion Therapy in [address] [phone] Mari Noguera M.D. [address] [place] [phone] documented as of this encounter Visit Diagnoses Not on filedocumented in this encounter Additional Health Concerns Infection Onset Date Last Indicated Resolved Time Protective Environment 06/03/2022 06/03/2022 documented as of this encounter Care Teams Esl Teacher Relationship Specialty Start Date End Date Elsewhere, Pcp PCP - General Internal Medicine 04/01/22 documented as of this encounter
--- OUTSIDE RECORDS SUMMARY | 2023-03-08 08:54 | XMS_ITS | Encounter Summary ---
Author Name Unknown Organization [facility] Address [address] [place] [address] Care Team Providers Care Mold Maker Helper Name Role Phone Elsewhere, Pcp Primary Care Provider Unavailabl e Reason for Visit * Episode Based Medications (Routine) - Authorized Specialty Diagnoses / Procedures Referred By Guillermina zamora Referred To Contact Diagnoses Multiple Myeloma Not Having Achieved Remission (HCC) Procedures OH ONDANSETRON HCL INJECTION OH DARATUMUMAB, HYALURONIDASE OH BORTEZOMIB INJECTION 1,800 mg on Day 1, 8, 15, 22 for cycles 1 & 2, Day 1, 15 3-6, Day 1 for cycle 7 / 28 day cycles / 17 total visits Mari Noguera M.D. [address] [place] [address] [facility] Region Referral ID Status Reason Start Date Expiration Date V isits Requested Visits Authorized [id number] Authorized 05/28/2021 02/27/2024 31 31 Encounter Details Date Type Department Care Team (Latest Contact Info) Description 08/19/2022 2:14 PM CDT - 08/19/2022 11:59 PM CDT Hospital Encounter Department of Laboratory Medicine in [place], [place] [address] [place] [phone] Mari Noguera M.D. [address] [place] [phone] Multiple Myeloma Not Having Achieved [...] week 06/11/2021 How often do you attend [facility] or [facility] services? 1 to 4 times [...] 60 tablet 11 12/01/2021 12/08/2022 RX WELCOME [id number]-[id number]-LB ONLY Welcome packet 1 each 0 04/26/2022 08/31/2022 documented as of this encounter Plan of Treatment Upcoming Encounters Date Type Department Care Team (Late st Contact Info) Description 03/16/2023 10:30 AM ASSEMBLY SUPERVISOR Appointment Department of Laboratory Medicine in [place], [place] [address] [place] [address] Mari Noguera M.D. [address] [place] [phone] 03/17/2023 8:40 AM ASSEMBLY SUPERVISOR Office Visit Department of Oncology in [address] [phone] Mari Noguera M.D. [address] [place] [phone] 03/17/2023 9:45 AM ASSEMBLY SUPERVISOR Infusion Department of Infusion Therapy in [address] [phone] Mari Noguera M.D. [address] [place] [phone] 03/31/2023 10:10 AM ASSEMBLY SUPERVISOR Appointment Department of Laboratory Medicine in [place], [place] [address] [place] [address] Mari Noguera M.D. [address] [place] [phone] 04/04/2023 8:20 AM ASSEMBLY SUPERVISOR Office Visit Department of Oncology in [address] [phone] Mari Noguera M.D. [address] [place] [phone] 04/04/2023 9:00 AM ASSEMBLY SUPERVISOR Infusion Department of Infusion Therapy in [address] [place] [phone] Mari Noguera M.D. [address] [place] [phone] 04/13/2023 10:10 AM ASSEMBLY SUPERVISOR Appointment Department of Laboratory Medicine in [address] [place] [phone] Mari Noguera M.D. [address] [place] [phone] 04/14/2023 9:00 AM ASSEMBLY SUPERVISOR Infusion Department of Infusion Therapy in [place] [address] [place] [phone] Mari Noguera M.D. [address] [place] [phone] documented as of this encounter Procedures Procedure Name Priority Date/Time Associated Diagnosis Comments MONOCLONAL PROTEIN STUDY (MPSS), EXPANDED PANEL, S Routine 08/19/2022 2:31 PM CDT Multiple Myeloma Not Having Achieved Remission (HCC) CBC WITH DIFFERENTIAL, B Routine 08/19/2022 2:31 PM CDT Multiple Myeloma Not Having Achieved Remission (HCC) documented in this encounter Results * (ABNORMAL) CBC with Differential, Blood (08/19/2022 [...] CDT Mari Noguera M.D. LAB BLOOD ADD-ON [facility] [address] [place] [address], [facility] RDWG [facility] in [place] [address] [place] [phone] * (ABNORMAL) Monoclonal Protein Study, Expanded Panel (08/19/2022 2:31 PM CDT) Pathologist [facility] Total Protein, S 5.8(L) 6.3 - 7.9 g/dL 08/19/2022 9:[address] Ann Free Light Chain, S 1.21 0.3300 - 1.94 mg/dL 08/22/2022 9:08 AM CDT ECLR Lambda Free Light Chain, S 1.49 0.5700 - 2.63 mg/dL 08/22/2022 9:[address] Ann/Lambda FLC Ratio 0.8121 0.2600 - 1.65 08/22/2022 [...] 2:31 PM CDT 08/19/2022 8:37 PM CDT [facility] - 08/23/2022 12:19 PM CDT Specimen Information: Specimen ID: [id number] Specimen Type: Blood Specimen Collection Start Date: 08/19/2022 ??2:31 PM Specimen Received Date: 08/19/2022 ??8:37 PM Specimen ID: [id number] Specimen Type: Blood Specimen Collection Start Date: 08/19/2022 ??2:31 PM Specimen Received Date: 08/19/2022 ??8:37 PM Specimen ID: [id number] Specimen Type: Blood Specimen Collection Start Date: 08/19/2022 ??2:31 PM Specimen Received Date: 08/19/2022 ??8:38 PM Mari Noguera M.D. LAB BLOOD ADD-ON [facility] [address] [place] [address], [facility] ECLR [facility] in [address] [place] [phone] documented in this encounter Visit Diagnoses Diagnosis Multiple Myeloma Not Having Achieved Remission (HCC) documented in this encounter Additional Health Concerns Infection Onset Date Last Indicated Resolved Time Protective Environment 06/03/2022 06/03/2022 documented as of this encounter Care Teams Mold Maker Helper Relationship Specialty Start Date End Date Elsewhere, Pcp PCP - General Internal Medicine 04/01/22 documented as of this encounter
--- OUTSIDE RECORDS SUMMARY | 2023-03-08 08:54 | XMS_ITS | Encounter Summary ---
Author Name Unknown Organization [facility] Address [address] [place] [address] Care Team Providers Care Dyer Helper Name Role Phone Elsewhere, Pcp Primary Care Provider Unavailabl e Reason for Visit * Reason Onset Date Comments Nurse Assessment 08/19/2022 Encounter Details Date Type Department Care Team (Latest Contact Info) Description 08/19/2022 Clinical Communication Department of Oncology in [place], [place] [address] [place] [phone] Mari Noguera M.D. [address] [place] [phone] Nurse Assessment Social History Tobacco [...] week 06/11/2021 How often do you attend [facility] or adventist services? 1 to 4 [...] Answer Date Recorded PHQ-2 Score 4 11/18/2021 [facility]at ional Health - [...] st Contact Info) Description 03/16/2023 10:30 AM WELFARE ELIGIBILITY WORKER Appointment Department of Laboratory Medicine in [address] [phone] Mari Noguera M.D. [address] [place] [phone] 03/17/2023 8:40 AM WELFARE ELIGIBILITY WORKER Office Visit Department of Oncology in [place] [address] [place] [phone] Mari Noguera M.D. [address] [place] [phone] 03/17/2023 9:45 AM WELFARE ELIGIBILITY WORKER Infusion Department of Infusion Therapy in [address] [place] [phone] Mari Noguera M.D. [address] [place] [phone] 03/31/2023 10:10 AM WELFARE ELIGIBILITY WORKER Appointment Department of Laboratory Medicine in [address] [phone] Mari Noguera M.D. [address] [place] [phone] 04/04/2023 8:20 AM WELFARE ELIGIBILITY WORKER Office Visit Department of Oncology in [address] [phone] Mari Noguera M.D. [address] [place] [phone] 04/04/2023 9:00 AM WELFARE ELIGIBILITY WORKER Infusion Department of Infusion Therapy in [address] [phone] Mari Noguera M.D. [address] [place] [phone] 04/13/2023 10:10 AM WELFARE ELIGIBILITY WORKER Appointment Department of Laboratory Medicine in [address] [phone] Mari Noguera M.D. [address] [place] [phone] 04/14/2023 9:00 AM WELFARE ELIGIBILITY WORKER Infusion Department of Infusion Therapy in [place], [place] [address] [place] [phone] Mari Noguera M.D. [address] [place] [phone] documented as of this encounter Visit Diagnoses Not on filedocumented in this encounter Additional Health Concerns Infection Onset Date Last Indicated Resolved Time Protective Environment 06/03/2022 06/03/2022 documented as of this encounter Care Teams Dyer Helper Relationship Specialty Start Date End Date Elsewhere, Pcp PCP - General Internal Medicine 04/01/22 documented as of this encounter
--- OUTSIDE RECORDS SUMMARY | 2023-03-08 08:55 | XMS_ITS | Encounter Summary ---
Author Name Unknown Organization [facility] Address [address] [place] [address] Care Team Providers Care Advertising Job Titles Name Role Phone Elsewhere, Pcp Primary Care Provider Unavailabl e Reason for Visit * Episode Based Medications (Routine) - Authorized Specialty Diagnoses / Procedures Referred By Guillermina zamora Referred To Contact Diagnoses Multiple Myeloma Not Having Achieved Remission (HCC) Procedures SD ONDANSETRON HCL INJECTION SD DARATUMUMAB, HYALURONIDASE SD BORTEZOMIB INJECTION 1,800 mg on Day 1, 8, 15, 22 for cycles 1 & 2, Day 1, 15 3-6, Day 1 for cycle 7 / 28 day cycles / 17 total visits Mari Noguera M.D. [address] [place] [address] [facility] Region Referral ID Status Reason Start Date Expiration Date V isits Requested Visits Authorized [id number] Authorized 05/28/2021 02/27/2024 31 31 Encounter Details Date Type Department Care Team (Latest Contact Info) Description 07/22/2022 10:30 AM CDT - 07/22/2022 11:59 PM CDT Hospital Encounter Department of Laboratory Medicine in [place], [place] [address] [place] [phone] Mari Noguera M.D. [address] [place] [phone] Multiple Myeloma Not Having Achieved [...] week 06/11/2021 How often do you attend [facility] or church services? 1 to 4 times per year 06/11/2021 Do you belong to any clubs o r organizations such as worship groups, unions, fraternal or athletic groups, or [...] Date Recorded PHQ-2 Score 4 11/18/2021 [facility] Occupat ional Health - [...] (avoid the face). 80 g 0 07/11/2022 cetirizine (ZyrTEC) 10 mg tablet Take 1 tablet (10 mg total) by mouth 2 (two) times a day for 14 days. 30 tablet 0 07/11/2022 07/25/2022 hydrocortisone (HYTONE) 2.5 % cream Apply 1 Application topically 2 (two) times a day for 14 days. Apply to face. 30 g 0 07/11/2022 07/25/2022 acyclovir (ZOVIRAX) 200 mg capsule Take 2 [...] of cycle. 21 capsule 0 07/03/2022 08/31/2022 penicillin V potassium (VEETIDS) 500 mg tablet Take 1 tablet (500 mg total) by mouth 2 (two) times a day. 60 tablet 11 12/01/2021 12/08/2022 RX WELCOME DBUBRM-MEXGWEMQS-CY ONLY Welcome packet 1 each 0 04/26/2022 08/31/2022 documented as of this encounter Plan of Treatment Upcoming Encounters Date Type Department Care Team (Late st Contact Info) Description 03/16/2023 10:30 AM PERINATAL BREASTFEEDING ASSISTANT Appointment Department of Laboratory Medicine in [address] [phone] Mari Noguera M.D. [address] [place] [phone] 03/17/2023 8:40 AM PERINATAL BREASTFEEDING ASSISTANT Office Visit Department of Oncology in [address] [phone] Mari Noguera M.D. [address] [place] [phone] 03/17/2023 9:45 AM PERINATAL BREASTFEEDING ASSISTANT Infusion Department of Infusion Therapy in [address] [phone] Mari Noguera M.D. [address] [place] [phone] 03/31/2023 10:10 AM PERINATAL BREASTFEEDING ASSISTANT Appointment Department of Laboratory Medicine in [address] [phone] Mari Noguera M.D. [address] [place] [phone] 04/04/2023 8:20 AM PERINATAL BREASTFEEDING ASSISTANT Office Visit Department of Oncology in [address] [phone] Mari Noguera M.D. [address] [place] [phone] 04/04/2023 9:00 AM PERINATAL BREASTFEEDING ASSISTANT Infusion Department of Infusion Therapy in [place] [address] [facility] [phone] Mari Noguera M.D. [facility] [place] [phone] 04/13/2023 10:10 AM PERINATAL BREASTFEEDING ASSISTANT Appointment Department of Laboratory Medicine in [address] [place] [phone] Mari Noguera M.D. [address] [place] [phone] 04/14/2023 9:00 AM PERINATAL BREASTFEEDING ASSISTANT Infusion Department of Infusion Therapy in [place] [address] [place] [phone] Mari Noguera M.D. [address] [place] [phone] documented as of this encounter Procedures Procedure Name Priority Date/Time Associated Diagnosis Comments MONOCLONAL PROTEIN STUDY (MPSS), EXPANDED PANEL, S Routine 07/22/2022 10:41 AM CDT Multiple Myeloma Not Having Achieved Remission (HCC) CBC WITH DIFFERENTIAL, B Routine 07/22/2022 10:41 AM CDT Multiple Myeloma Not Having Achieved Remission (HCC) documented in this encounter Results * (ABNORMAL) CBC with Differential, Blood (07/22/2022 10:41 AM CDT) Hemoglobin 12.2 11.6 - 15.0 g/dL 07/22/2022 11:03 AM CDT RDWG Hematocrit 39.9 35.5 - 44.9 % 07/22/2022 11:03 AM CDT RDWG Erythrocytes 4.29 3.92 - 5.13 x10(12)/L 07/22/2022 11:03 AM CDT RDWG MCV 93.0 78.2 - 97.9 fL 07/22/2022 11:03 AM CDT RDWG RBC Distrib Width 14.7 12.2 - 16.1 % 07/22/2022 11:03 AM CDT RDWG Platelet Count 110(L) 157 - 371 x10(9)/L 07/22/2022 11:03 AM CDT RDWG Leukocytes 3.6 3.4 - 9.6 x10(9)/L 07/22/2022 11:03 AM CDT RDWG Neutrophils 1.88 1.56 - 6.45 x10(9)/L 07/22/2022 11:03 AM CDT RDWG Lymphocytes 0.85(L) 0.95 - 3.07 x10(9)/L 07/22/2022 11:03 AM CDT RDWG Monocytes 0.39 0.26 - 0.81 x10(9)/L 07/22/2022 11:03 AM CDT RDWG Eosinophils 0.47 0.03 - 0.48 x10(9)/L 07/22/2022 11:03 AM CDT RDWG Basophils 0.04 0.01 - 0.08 x10(9)/L 07/22/2022 11:03 AM CDT RDWG Blood (Blood, Venous) 07/22/2022 10:41 AM CDT 07/22/2022 10:49 AM CDT Mari Noguera M.D. LAB BLOOD ADD-ON [facility] [address] [place] [address], [facility] RDWG [facility] in [place] [address] [place] [phone] * (ABNORMAL) Monoclonal Protein Study, Expanded Panel (07/22/2022 10:41 AM CDT) Pathologist [facility] Total Protein, S 6.0(L) 6.3 - 7.9 g/dL 07/22/2022 3:04 PM CDT ECLR [place] Free Light Chain, S 2.10(H) 0.3300 - 1.94 mg/dL 07/26/2022 8:47 AM CDT ECLR Lambda Free Light Chain, S 1.75 0.5700 - 2.63 mg/dL 07/26/2022 8:47 AM CDT ECLR [place]/Lambda FLC Ratio 1.20 0.2600 - 1.65 07/26/2022 8:47 AM CDT ECLR Albumin 4.0 3.4 - 4.7 g/dL 07/27/2022 9:13 AM CDT ECLR Alpha-1 Globulin 0.2 0.1 - 0.3 g/dL 07/27/2022 9:13 AM CDT ECLR Alpha-2 Globulin 0.7 0.6 - 1.0 g/dL 07/27/2022 9:13 AM CDT ECLR Beta-Globulin 0.6(L) 0.7 - 1.2 g/dL 07/27/2022 9:13 AM CDT ECLR Gamma-Globulin 0.4(L) 0.6 - 1.6 g/dL 07/27/2022 9:13 AM CDT ECLR A/G Ratio 2.06 07/27/2022 9:13 AM CDT ECLR Impression Small abnormality in gamma fraction. Reviewed and interpreted by: ??Jeannie Rogers M.D. 07/27/2022 9:13 AM CDT ECLR Flag, Immunofixation Positive(A) Negative 07/27/2022 4:01 PM CDT ECLR Immunofixation Cannot rule out small monoclonal protein. Reviewed and interpreted by: ??Jeannie Rogers M.D. 07/27/2022 4:01 PM CDT ECLR Blood (Blood, Venous) 07/22/2022 10:41 AM CDT 07/22/2022 2:[address] [facility] - 07/27/2022 4:01 PM CDT Specimen Information: Specimen ID: [id number] Specimen Type: Blood Specimen Collection Start Date: 07/22/2022 10:41 AM Specimen Received Date: 07/22/2022 ??2:45 PM Specimen ID: [id number] Specimen Type: Blood Specimen Collection Start Date: 07/22/2022 10:41 AM Specimen Received Date: 07/22/2022 ??2:45 PM Specimen ID: [id number] Specimen Type: Blood Specimen Collection Start Date: 07/22/2022 10:41 AM Specimen Received Date: 07/22/2022 ??2:45 PM Mari Noguera M.D. LAB BLOOD ADD-ON [facility] [address] [place] [address], [facility] ECLR [facility] in [address] [address] [address] [place] [phone] documented in this encounter Visit Diagnoses Diagnosis Multiple Myeloma Not Having Achieved Remission (HCC) documented in this encounter Additional Health Concerns Infection Onset Date Last Indicated Resolved Time Protective Environment 06/03/2022 06/03/2022 documented as of this encounter Care Teams Advertising Job Titles Relationship Specialty Start Date End Date Elsewhere, Pcp PCP - General Internal Medicine 04/01/22 documented as of this encounter
--- OUTSIDE RECORDS SUMMARY | 2023-03-08 08:55 | XMS_ITS | Encounter Summary ---
Author Name Unknown Organization [facility] Address [address] [place] [address] Care Team Providers Care Wet Inspector Optical Glass Name Role Phone Elsewhere, Pcp Primary Care Provider Unavailabl e Encounter Details Date Type Department Care Team (Late st Contact Info) Description 07/11/2022 7:35 PM CDT Ancillary Procedure Department of Emergency Medicine Social History Tobacco Use Types Packs/Day Years [...] often do you attend chur ch or rastafarian services? 1 to 4 times per year 06/11/2021 Do you belong to any clubs o r organizations such as quaker groups, unions, fraternal or athletic groups, or [...] Answer Date Recorded PHQ-2 Score 4 11/18/2021 [facility] of Occupat ional Health - Occupational Stress [...] st Contact Info) Description 03/16/2023 10:30 AM TONGUE AND QUARTER STITCHER Appointment Department of Laboratory Medicine in [address] [phone] Mari Noguera M.D. [address] [place] [phone] 03/17/2023 8:40 AM TONGUE AND QUARTER STITCHER Office Visit Department of Oncology in [address] [phone] Noguera, Mari, M.D. [address] [place] [phone] 03/17/2023 9:45 AM TONGUE AND QUARTER STITCHER Infusion Department of Infusion Therapy in [place] [address] [place] [phone] Mari Noguera M.D. [address] [place] [phone] 03/31/2023 10:10 AM TONGUE AND QUARTER STITCHER Appointment Department of Laboratory Medicine in [address] [phone] Mari Noguera M.D. [address] [place] [phone] 04/04/2023 8:20 AM TONGUE AND QUARTER STITCHER Office Visit Department of Oncology in [address] [phone] Mari Noguera M.D. [address] [place] [phone] 04/04/2023 9:00 AM TONGUE AND QUARTER STITCHER Infusion Department of Infusion Therapy in [address] [phone] Mari Noguera M.D. [address] [place] [phone] 04/13/2023 10:10 AM TONGUE AND QUARTER STITCHER Appointment Department of Laboratory Medicine in [address] [phone] Mari Noguera M.D. [address] [place] [phone] 04/14/2023 9:00 AM TONGUE AND QUARTER STITCHER Infusion Department of Infusion Therapy in [address] [phone] Mari Noguera M.D. [address] [facility] [place] [phone] documented as of this encounter Procedures Procedure Name Priority Date/Time Associated Diagnosis Comments EMERGENCY MEDICINE IMAGE EXAM Routine 07/11/2022 7:35 PM CDT documented in this encounter Results * Chest 521-Emergency Medicine Image Exam (07/11/2022 7:35 PM CDT) 07/11/2022 7:35 PM CDT Narrative [facility] - 07/11/2022 7:37 PM CDT This order has been created and auto-finalized to support the import of images acquired without order. The clinical documentation to support these images can be found on the encounter that produced images. Provider Not In System IMG NON RAD IMAGI NG PROCEDURES [facility] NA documented in this encounter Visit Diagnoses Not on filedocumented in this encounter Additional Health Concerns Infection Onset Date Last Indicated Resolved Time Protective Environment 06/03/2022 06/03/2022 documented as of this encounter Care Teams Wet Inspector Optical Glass Relationship Specialty Start Date End Date Elsewhere, Pcp PCP - General Internal Medicine 04/01/22 documented as of this encounter
--- OUTSIDE RECORDS SUMMARY | 2023-03-08 08:55 | XMS_ITS | Encounter Summary ---
Author Name Unknown Organization [facility] Address [address] [place] [address] Care Team Providers Care Communications Engineering Technician Name Role Phone Elsewhere, Pcp Primary Care Provider Unavailabl e Reason for Visit * Reason Comments Chemotherapy Velcade * Episode Based Medications (Routine) - Authorized Specialty Diagnoses / Procedures Referred By Guillermina zamora Referred To Contact Diagnoses Multiple Myeloma Not Having Achieved Remission (HCC) Procedures [place] ONDANSETRON HCL INJECTION [place] DARATUMUMAB, HYALURONIDASE [place] BORTEZOMIB INJECTION 1,800 mg on Day 1, 8, 15, 22 for cycles 1 & 2, Day 1, 15 3-6, Day 1 for cycle 7 / 28 day cycles / 17 total visits Mari Noguera M.D. [address] [place] [address] [facility] Region Referral ID Status Reason Start Date Expiration Date V isits Requested Visits Authorized [id number] Authorized 05/28/2021 02/27/2024 31 31 Encounter Details Date Type Department Care Team (Late st Contact Info) Description 07/22/2022 11:45 AM CDT Infusion Department of Infusion Therapy in [address] [phone] Mari Noguera M.D. [address] [place] [phone] Multiple Myeloma Not Having Achieved Remission [...] Date Recorded PHQ-2 Score 4 11/18/2021 [facility] - Occupational Stress Questionnaire Answer [...] Sign Reading Time Taken Comments Blood Pressure 137/56 07/22/2022 11:43 AM CDT Pulse 47 07/22/2022 11:43 AM CDT patient is asymptomatic and states that she is in bigeminy Temperature 36.8 ??C (98.2 ??F) 07/22/2022 1 1:43 AM CDT Respiratory Rate 16 07/22/2022 11:4 3 AM CDT Oxygen Saturation 99% 07/22/2022 11: 43 AM CDT Inhaled Oxygen Concentration - - Weight - - Height - - Body Mass Index - - documented in this encounter Plan of Treatment Upcoming Encounters Date Type Department Care Team (Late st Contact Info) Description 03/16/2023 10:30 AM YEAST STACKER Appointment Department of Laboratory Medicine in [place] [address] [place] [phone] Mari Noguera M.D. [address] [place] [phone] 03/17/2023 8:40 AM YEAST STACKER Office Visit Department of Oncology in [address] [phone] Mari Noguera M.D. [address] [place] [phone] 03/17/2023 9:45 AM YEAST STACKER Infusion Department of Infusion Therapy in [address] [phone] Mari Noguera M.D. [address] [place] [phone] 03/31/2023 10:10 AM YEAST STACKER Appointment Department of Laboratory Medicine in [address] [phone] Mari Noguera M.D. [address] [place] [phone] 04/04/2023 8:20 AM YEAST STACKER Office Visit Department of Oncology in [address] [phone] Mari Noguera M.D. [address] [place] [phone] 04/04/2023 9:00 AM YEAST STACKER Infusion Department of Infusion Therapy in [address] [phone] Mari Noguera M.D. [address] [place] [phone] 04/13/2023 10:10 AM YEAST STACKER Appointment Department of Laboratory Medicine in [address] [place] [address] Mari Noguera M.D. [address] [place] [phone] 04/14/2023 9:00 AM YEAST STACKER Infusion Department of Infusion Therapy in [address] [phone] Mari Noguera M.D. [address] [place] [phone] documented as of this encounter Visit Diagnoses Diagnosis Multiple Myeloma Not Having Achieved Remission (HCC)- Primary documented in this encounter Administered Medications Inactive Administered Medications - up to 3 most recent administrations Medication Order MAR Action Action Date Dose Rate Site bortezomib injection 2.5 mg (VELCADE) 2.5 mg (rounded from 2.509 mg = 1.3 mg/m2 ? 1.93 m2 Treatment Plan BSA from Measured weight), subcutaneous, Once, On Mon07/22/22 at 1145, For 1 dose, Rotate injection site. Given 07/22/2022 11:54 AM CDT 2.5 mg Right Upper Abdomen documented in this encounter Additional Health Concerns Infection Onset Date Last Indicated Resolved Time Protective Environment 06/03/2022 06/03/2022 documented as of this encounter Care Teams Communications Engineering Technician Relationship Specialty Start Date End Date Elsewhere, Pcp PCP - General Internal Medicine 04/01/22 documented as of this encounter"
--- OUTSIDE RECORDS SUMMARY | 2023-03-08 08:55 | XMS_ITS | Encounter Summary ---
Author Name Unknown Organization [facility] Address [address] [place] [address] Care Team Providers Care Bow Making Machine Operator Name Role Phone Elsewhere, Pcp Primary Care Provider Unavailabl e Encounter Details Date Type Department Care Team (Late st Contact Info) Description 07/28/2022 Specialty Pharmacy [facility] [address] [place] [address] Jonna Humphries, Pharm.D., R.Ph. [address] [place] [phone] Social History Tobacco Use Types Packs/Day Years [...] Date Recorded PHQ-2 Score 4 11/18/2021 [facility] Answer Date [...] encounter Miscellaneous Notes * Telephone Encounter - Jonna Humphries, Pharm.D., R.Ph. - 08/01/2022 9:10 AM CDT SUBJECTIVE REASON FOR VISIT Specialty pharmacy reassessment of patient's medication knowledge, adherence, and side effects via patient reported questionnaire. Reassessment questions were asked via phone by a patient adult caregiver. (reviewed at or around patient requested refill ) HISTORY OF PRESENT ILLNESS Ms. Keysha Melendez is a 76 y.o. female, who is followed by the specialty pharmacy service for Revlimid (lenalidomide) . (Indication: hematology/oncology) Patient reported reassessment questions and responses: Informant: patient How comfortable are you understanding the medication(s) you receive from [facility]?: Very Comfortable Side Effects Requiring Attention: no Patient Reported X Missed Doses in the Last Month: 0 Please rate your confidence in your ability to keep taking your medication(s) as prescribed.: excellent confidence How would you rate the effectiveness of your specialty medication(s)?: very good In general, would you say your quality of life is: very good Pain rating 0-10: 0/10 Any new/changes in allergies or medications to report?: no new/changes in allergies or medications OBJECTIVE Lab Results Component Value Date CREATININE 1.19 (H) 07/08/2022 EGFR 48 (L) 07/08/2022 ASSESSMENT / PLAN 1. Medication Knowledge and Adherence In reference to the patient reported information above and reviewing refill history in the [facility] record. The patient/caregiver reports appropriate medication knowledge. No adherence issues identified. 2. Medication Side effects/Adverse Events In reference to the patient reported information above: The patient/caregiver reports no medicationside effects requiring attention. No reported adverse drug reactions, allergic reactions, overdoses or medication errors. 3. Confidence to continue Patient currently rating confidence to continue specialty medication(s) as prescribed as: 'Excellent/Very confident'.. 4. Effectiveness Patient reports medication effectiveness to be: 'very good'. Also, please refer to provider assessment/plan within [facility] on the following date 07/08/22.. 5. Pain Patient currently rating pain as 0/10. 6. Summary with continued goals of therapy and other expectations/outcomes Based on the above information, the patient's therapy is appropriate to continue. Continue to: -Optimize medication adherence. -Evaluate/prevent drug-drug and drug-disease interactions. Good karen attempt made in maintaining acomplete medication list at each dispense of medication. -Minimize, prevent and/or manage side effects. -Refer to 'Treatment Goal' in 'Treatment Plan Information' of [facility]. Follow-up: every 6 month(s) Jonna Humphries, Pratibha., R.Ph. documented in this encounter Plan of Treatment Upcoming Encounters Date Type Department Care Team (Late st Contact Info) Description 03/16/2023 10:30 AM SOFTWARE QUALITY TEST ENGINEER Appointment Department of Laboratory Medicine in [address] [place] [address] Mari Noguera M.D. [address] [place] [phone] 03/17/2023 8:40 AM SOFTWARE QUALITY TEST ENGINEER Office Visit Department of Oncology in [address] [phone] Mari Noguera M.D. [address] [place] [phone] 03/17/2023 9:45 AM SOFTWARE QUALITY TEST ENGINEER Infusion Department of Infusion Therapy in [address] [phone] Mari Noguera M.D. [address] [place] [phone] 03/31/2023 10:10 AM SOFTWARE QUALITY TEST ENGINEER Appointment Department of Laboratory Medicine in [address] [place] [address] Mari Noguera M.D. [address] [place] [phone] 04/04/2023 8:20 AM SOFTWARE QUALITY TEST ENGINEER Office Visit Department of Oncology in [address] [phone] Mari Noguera M.D. [address] [place] [phone] 04/04/2023 9:00 AM SOFTWARE QUALITY TEST ENGINEER Infusion Department of Infusion Therapy in [address] [phone] Mari Noguera M.D. [address] [place] [phone] 04/13/2023 10:10 AM SOFTWARE QUALITY TEST ENGINEER Appointment Department of Laboratory Medicine in [address] [phone] Mari Noguera M.D. [address] [place] [phone] 04/14/2023 9:00 AM SOFTWARE QUALITY TEST ENGINEER Infusion Department of Infusion Therapy in [address] [phone] Mari Noguera M.D. [address] [place] [phone] documented as of this encounter Visit Diagnoses Not on filedocumented in this encounter Additional Health Concerns Infection Onset Date Last Indicated Resolved Time Protective Environment 06/03/2022 06/03/2022 documented as of this encounter Care Teams Bow Making Machine Operator Relationship Specialty Start Date End Date Elsewhere, Pcp PCP - General Internal Medicine 04/01/22 documented as of this encounter
--- OUTSIDE RECORDS SUMMARY | 2023-03-08 08:55 | XMS_ITS | Encounter Summary ---
Author Name Unknown Organization [facility] Address [address] [place] [address] Care Team Providers Care School Boat Driver Name Role Phone Elsewhere, Pcp Primary Care Provider Unavailabl e Reason for Visit * Reason Onset Date Comments Med Question 07/19/2022 Encounter Details Date Type Department Care Team (Late st Contact Info) Description 07/19/2022 Clinical Communication Department of Oncology in [place], [place] [address] [place] [phone] Mari Noguera M.D. [address] [place] [phone] Med Question Social History Tobacco [...] How often do you attend [facility] or protest[employer] services? 1 to 4 times [...] No 06/11/2021 Housing Stability Vital Sign Answer Balnco e Recorded In the last 12 months, [...] st Contact Info) Description 03/16/2023 10:30 AM UNIFORM DESIGNER Appointment Department of Laboratory Medicine in [address] [phone] Mari Noguera M.D. [address] [place] [phone] 03/17/2023 8:40 AM UNIFORM DESIGNER Office Visit Department of Oncology in [place] [address] [facility] [place] [phone] Mari Noguera M.D. [address] [place] [phone] 03/17/2023 9:45 AM UNIFORM DESIGNER Infusion Department of Infusion Therapy in [address] [place] [phone] Mari Noguera M.D. [address] [place] [phone] 03/31/2023 10:10 AM UNIFORM DESIGNER Appointment Department of Laboratory Medicine in [address] [phone] Mari Noguera M.D. [address] [place] [phone] 04/04/2023 8:20 AM UNIFORM DESIGNER Office Visit Department of Oncology in [address] [phone] Mari Noguera M.D. [address] [place] [phone] 04/04/2023 9:00 AM UNIFORM DESIGNER Infusion Department of Infusion Therapy in [address] [phone] Mari Noguera M.D. [address] [place] [phone] 04/13/2023 10:10 AM UNIFORM DESIGNER Appointment Department of Laboratory Medicine in [address] [phone] Mari Noguera M.D. [address] [place] [phone] 04/14/2023 9:00 AM UNIFORM DESIGNER Infusion Department of Infusion Therapy in [place], [place] [address] [place] [phone] Mari Noguera M.D. [address] [place] [phone] documented as of this encounter Visit Diagnoses Not on filedocumented in this encounter Additional Health Concerns Infection Onset Date Last Indicated Resolved Time Protective Environment 06/03/2022 06/03/2022 documented as of this encounter Care Teams School Boat Driver Relationship Specialty Start Date End Date Elsewhere, Pcp PCP - General Internal Medicine 04/01/22 documented as of this encounter
--- OUTSIDE RECORDS SUMMARY | 2023-03-08 08:55 | XMS_ITS | Encounter Summary ---
Author Name Unknown Organization [facility] Address [address] [place] [address] Care Team Providers Care Emergency Telecommunications Dispatcher Name Role Phone Elsewhere, Pcp Primary Care Provider Unavailabl e Reason for Referral * Medication Prior Authorization - Closed Specialty Diagnoses / Procedures Referred By Guillermina t Referred To Contact Francia Nguyen APRN, C.N.P., D.N.P. [address] [place] [phone] Referral ID Status Reason Start Date Expiration Date Visits Re quested Visits Authorized [id number] Closed 1 1 Reason for Visit * Reason Comments Rash Encounter Details Date Type Department Care Team (Late st Contact Info) Description 07/11/2022 3:03 PM CDT - 07/11/2022 8:46 PM CDT Emergency [facility] Emergency Department [address] [place] [phone] Francia Nguyen APRN, C.N.P., D.N.P. 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 or [facility] services? 1 to 4 times [...] Answer Date Recorded PHQ-2 Score 4 11/18/2021 [facility] [place] [facility] Occupat ional [facility] - Occupational Stress [...] Sign Reading Time Taken Comments Blood Pressure 110/50 07/11/2022 5:39 PM CDT Pulse 63 07/11/2022 5:39 PM CDT Temperature 36.8 ??C (98.2 ??F) 07/11/2022 3:12 PM CD T Respiratory Rate 20 07/11/2022 5:39 PM CDT Oxygen Saturation 96% 07/11/2022 5:39 PM CDT Inhaled Oxygen Concentration - - Weight 83.3 kg (183 lb 10.3 oz) 07/11/2022 3:06 PM CDT Height - - Body Mass Index 34.23 12/10/2021 1:49 PM CDT documented in this encounter Discharge Instructions * Attachments The following attachments cannot be sent through Care Everywhere. * Contact Dermatitis (Albanian) documented in this encounter Medications at Time of Discharge Medication Sig Dispensed Refills Start Date End Date aspirin 325 mg tabletIndications:Mul tiple Myeloma Not Having Achieved [...] 60 tablet 11 12/01/2021 12/08/2022 RX WELCOME MUUNAW-BOLZBGYYG-AX ONLY Welcome packet 1 each 0 04/26/2022 08/31/2022 documented as of this encounter Progress Notes * Oswaldo Lee M.D. - 07/11/2022 8:01 PM CDT DERMATOLOGY CURBSIDE NOTE Curbside question: Rash on face, management Brief summary: Keysha Melendez is a 76 y.o. female with a history of multiple myeloma s/p stem cell transplant 11/2021 presented to [facility] ED for a facial rash. She developed diffuse facial rash after she used a Adelina body moisturizer 2 weeks. Rash is itchyand painful. She stopped using the moisturizer and has been using CeraVe/Cetaphil creams along withbenadryl TID without improvement. No additional lesions. Photos reviewed and revealed the following: Erythematous dermatitic plaques with overlying scale covering entire face, neck, and chest. Clinical history and morphology of lesions are consistent with contact dermatitis Recommendations: Hydrocortisone 2.5% ointment twice daily to the lesion for two weeks After weeks, start tacrolimus 0.1% ointment to the face until rash clears Start triamcinolone 0.1% cream BID to chest lesions Consider zyrtec 10 mg BID (AM and PM); if pruritus persists, take benadryl at bedtime Urgent dermatology follow up (Post ED visit) Stop all Adelina products until dermatology follow up; use sensitive products such as Vanicream, dove, Cetaphil in the interim Thank you for involving us in the patient's care. Please page the Dermatology Service at [phone] with questions. Oswaldo Lee M.D. Dermatology Resident, PGY 3 documented in this encounter ED Notes * Francia Nguyen APRN, C.N.P., D.N.P. - 07/11/2022 7:49 PM CDT Images from the original note were not included. SUBJECTIVE CHIEF COMPLAINT/REASON FOR VISIT Rash HISTORY OF PRESENT ILLNESS Patient is a very pleasant 76-year-old female presenting to the emergency department for evaluationof rash. She reports symptoms began on 06/29/2022. She states that evening she put on some Reyna Kaymoisturizer. She states it was on her face and she felt a burning sensation and immediately washed it off. She reports the next morning she woke up and had some erythema and swelling around her eyes and on her cheeks. Over the last 12 days this has progressively worsened to her entire face and intoher chest. She has been taking Benadryl as recommended by an outside emergency department. She was not started on steroids as she had a stem cell transplant in November. She is a history of multiple my eloma and is currently undergoing chemotherapy. She denies any fall, injury trauma. She denies any additional symptoms including diarrhea, abdominal pain, shortness of breath, oral swelling, difficulty swallowing or speaking. Past Medical History Multiple Myeloma Not Having Achieved Remission (HCC) History Of Falling Transplant Stem Cell (HCC) Diabetes Mellitus Type 2 (HCC) Weakness General Hypomagnesemia Hypokalemia COVID-19 Infection History provided by: Patient and friend nurse practitioner manager needed/used: no REVIEW OF SYSTEMS Constitutional: Negative for fever. HENT: Negative for congestion. Respiratory: Negative for cough. Cardiovascular: Negative for chest pain. Gastrointestinal: Negative for abdominal pain. Genitourinary: Negative for dysuria. Skin: Positive for itching and rash. Psychiatric/Behavioral: Negative for confusion. OBJECTIVE Initial Vitals [07/11/22 1512] Temperature 36.8 ??C Pulse Rate (!) 51 Heart Rate Resp Rate 18 Blood Pressure (!) 173/74 SpO2 100 % Pain Score 0 - No pain PHYSICAL EXAMINATION Constitutional: Nursing note and vitals reviewed. No distress. HENT: Head: Normocephalic and atraumatic. Mouth/Throat: Mucous membranes are moist. Neck: Neck supple. Cardiovascular: Regular rhythm. Exam reveals no friction rub. No murmur heard.Capillary refill: takes less than 3 seconds Pulmonary/Chest: Effort normal. No tachypnea. Musculoskeletal: Cervical back: Normal range of motion and neck supple. Neurological: Alert and oriented to person, place, and time. Skin: Skin is warm and dry. Rash noted. She is not diaphoretic. Psychiatric: She has a normal mood and affect. Behavior is normal. ASSESSMENT/PLAN Assessment and Plan Patient is a very pleasant 76-year-old female presenting to the emergency department for evaluationof a rash of her face, neck and chest. Symptoms have been ongoing since 06/29/2022 when she used a Reyna [employer] face cream. She was referred to the emergency department today for further evaluation she is having worsening symptoms into her chest. Photos were obtained and I spoke with dermatology via phone. Patient remains vitally stable and in no acute distress. She is no oral swelling, wheezing, difficulty breathing or abdominal discomfort. Dermatology believes likely a contact dermatitis. We will start her on Kenalog cream b.i.d. and triamcinolone cream b.i.d. for 2 weeks. We will arrange for outpatient follow-up with dermatology. They additionally recommend Zyrtec 10 mg b.i.d. if she continuesto have the itching. Reasons return to the emergency department been discussed. Questions answered.Patient is alert, oriented x3, in no acute distress and she is ready for discharge.. DIFFERENTIAL DIAGNOSES Contact dermatitis, allergic reaction, anaphylaxis, among others. ED Course as of 07/11/222105July 11, 20222008 Dermatology agrees that this does appear to be contact dermatitis. They have recommended Kenalog cream b.i.d. for the chest and neck area as well as a hydrocortisone cream to the face. We will plan to have her follow-up with dermatology in 2 weeks for re-evaluation. 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 Francia Nguyen APRN, C.N.PAbraham, D.N.P. 07/11/222105 * Александр Alvarenga R.N. - 07/11/2022 3:13 PM CDT Presents to ED for complaints of facial, neck and chest rash that started about 10 days ago. Reports being on benadryl 25 mg tid over the last week. States yesterday the rash progressed from her faceto her neck and now down on upper chest region. She does have some peeling of her skin. Denies difficulty breathing or swallowing. Reports that this rash appeared shortly after applying some facial cream with immediate burning sensation. Александр Alvarenga R.N. 07/11/22 1515 documented in this encounter Plan of Treatment Upcoming Encounters Date Type Department Care Team (Late st Contact Info) Description 03/16/2023 10:30 AM ICE PULLER Appointment Department of Laboratory Medicine in [address] [phone] Mari Noguera M.D. [address] [place] [phone] 03/17/2023 8:40 AM ICE PULLER Office Visit Department of Oncology in [address] [phone] Mari Noguera M.D. [address] [place] [phone] 03/17/2023 9:45 AM ICE PULLER Infusion Department of Infusion Therapy in [address] [phone] Mari Noguera M.D. [address] [place] [phone] 03/31/2023 10:10 AM ICE PULLER Appointment Department of Laboratory Medicine in [address] [place] [address] Mari Noguera M.D. [address] [place] [phone] 04/04/2023 8:20 AM ICE PULLER Office Visit Department of Oncology in [address] [phone] Mari Noguera M.D. [address] [place] [phone] 04/04/2023 9:00 AM ICE PULLER Infusion Department of Infusion Therapy in [address] [phone] Mari Nogurea M.D. [address] [place] [phone] 04/13/2023 10:10 AM ICE PULLER Appointment Department of Laboratory Medicine in [address] [place] [address] Mari Noguera M.D. [address] [place] [phone] 04/14/2023 9:00 AM ICE PULLER Infusion Department of Infusion Therapy in [address] [phone] Mari Noguera M.D. 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 Scheduled Medication Order 07/09/2022 07/10/2022 07/11/2022 diphenhydrAMINE capsule 50 mg (BENADRYL) (COMPLETED) 50 mg, oral, Once, On Mon07/11/22 at 1951, For 1 dose 2005 (Given - Provid er: Aniya Alexandre R.N.) documented in this encounter Additional Health Concerns Infection Onset Date Last Indicated Resolved Time Protective Environment 06/03/2022 06/03/2022 documented as of this encounter Care Teams Emergency Telecommunications Dispatcher Relationship Specialty Start Date End Date Elsewhere, Pcp PCP - General Internal Medicine 04/01/22 documented as of this encounter
--- OUTSIDE RECORDS SUMMARY | 2023-03-08 08:55 | XMS_ITS | Encounter Summary ---
Author Name Unknown Organization [facility] Address [address] [place] [address] Care Team Providers Care Motor And Controls Tester Name Role Phone Elsewhere, Pcp Primary Care Provider Unavailabl e Reason for Visit * Episode Based Medications (Routine) - Authorized Specialty Diagnoses / Procedures Referred By Guillermina t Referred To Contact Diagnoses Multiple Myeloma Not Having Achieved Remission (HCC) Procedures MS ONDANSETRON HCL INJECTION MS DARATUMUMAB, HYALURONIDASE MS BORTEZOMIB INJECTION 1,800 mg on Day 1, 8, 15, 22 for cycles 1 & 2, Day 1, 15 3-6, Day 1 for cycle 7 / 28 day cycles / 17 total visits Mari Noguera M.D. [address] [place] [phone] [facility] Region Referral ID Status Reason Start Date Expiration Date V isits Requested Visits Authorized [id number] Authorized 05/28/2021 02/27/2024 31 31 Encounter Details Date Type Department Care Team (Late st Contact Info) Description 08/03/2022 11:20 AM CDT Telemedicine Department of Oncology in [place], [place] [address] [place] [phone] Leatha Redman M.D. [address] [place] [phone] Multiple Myeloma Not Having Achieved Remission (HCC) [...] often do you attend [facility] or [facility] services? 1 to 4 times [...] Answer Date Recorded PHQ-2 Score 4 11/18/2021 [facility] Occupat ional [facility] - Occupational Stress Questionnaire Answer [...] PM CDT documented as of this encounter Consult Notes * Leatha Redman M.D. - 08/03/2022 11:20 AM CDT SUBJECTIVE PRIMARY CARE PHYSICIAN ELSEWHERE, PCP REFERRING PROVIDER Mari Noguera M.D. CHIEF COMPLAINT/REASON FOR CONSULT Keysha Melendez is a 76 y.o. female who presents for evaluation of high-risk IgG lambda multiple myeloma status post autologous stem cell transplant on 12/02/2021, with VG MS HISTORY OF PRESENT ILLNESS Keysha Melendez is a 76 y.o. female who presents for evaluation of high-risk IgG lambda multiple myeloma status post autologous stem cell transplant on 12/02/2021, with VG MS Oncology History Overview Note History of IgG [...] Anemia, SEDA and known MGUS Labs: Date: Apr 2021 Hgb: 8.3 g/dL Plts: 90K Creatinine: 1.4 mg/dL Calcium: 9.1 mg/dL LDH: B2M: 34.8 Total Protein: 13.3 Albumin: 4.1 g/dL Immunoglobulins: Ig mg/dL; IgA: 9 mg/dL; IgM: <10 mg/dL Free light chains: kappa: 8.01 mg/L; lambda: 33.64 mg/L; [place]:Lambda Ratio: 0.24 SPEP: M-spike: 3.26 g/dL [...] (28 day cycles) Start Date: 04/08/2022 INTERIM 08/03/2022 Keysha is doing well. She denies having any significant problems with Velcade and Revlimid. She continues to take Velcade every other weekend Revlimid 10 mg 21/28 days. Her only concern today is tohave a refill of Revlimid. She denies having any peripheral neuropathy. She does not have any other concerns like fevers chills drenching night sweats. She has been eating well denies any nausea vomiting diarrhea constipation. 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 The following systems were negative: Constitutional, Skin, Eyes, ENT, Respiratory, Cardiovascular, Genitourinary, Hematologic, Musculoskeletal, Neurological, Psychiatric OBJECTIVE AAO*3LABORATORY DATA Reviewed RADIOLOGICAL DATA Radiology data reviewed. ASSESSMENT / PLAN #1 Multiple Myeloma Not Having Achieved Remission (HCC) Mrs. Melendez is a 76-year-old woman with an IgG lambda myeloma, with t(14;20), Loss of 20 q12, 1q+and 1p-, whom I am seeing on day +75, status post autologous peripheral blood stem cell transplant on December 02, 2021 now on Maintenance therapy with every other week bortezomib 1.3 mg/m2 and lenalidomide 10 mg 21 of 28 days -ecog ? -Myeloma labs 07/22/22: small M protein?? In gamma fraction--> we will send a message to Dr. Varela about kappa light chains -RTC in 4 weeks Post transplant immunizations: She has already received the flu vaccine, started COVID vaccinationsin April through her primary care provider. Posttransplant vaccines began 6 months after transplantthrough her primary care provider. Antibiotic prophylaxis: She [...] consider full anticoagulation in the perioperative period. PATIENT EDUCATION Ready to learn, no apparent learning barriers were identified; learning preferences include listening. Explained diagnosis and treatment plan; patient expressed understanding of the content. Consult conducted via real-time audio technology by Leatha Redman M.D. in Home to the patient in [place], [place]. Leatha Montez [facility] documented in this encounter Plan of Treatment Upcoming Encounters Date Type Department Care Team (Late st Contact Info) Description 03/16/2023 10:30 AM HI LOW TRUCK DRIVER Appointment Department of Laboratory Medicine in [address] [place] [phone] Mari Noguera M.D. [address] [place] [phone] 03/17/2023 8:40 AM HI LOW TRUCK DRIVER Office Visit Department of Oncology in [address] [place] [phone] Mari Noguera M.D. [address] [place] [phone] 03/17/2023 9:45 AM HI LOW TRUCK DRIVER Infusion Department of Infusion Therapy in [address] [place] [phone] Mari Noguera M.D. [address] [place] [phone] 03/31/2023 10:10 AM HI LOW TRUCK DRIVER Appointment Department of Laboratory Medicine in [address] [place] [address] Mari Noguera M.D. [address] [place] [phone] 04/04/2023 8:20 AM HI LOW TRUCK DRIVER Office Visit Department of Oncology in [address] [place] [address] Mari Noguera M.D. [address] [place] [phone] 04/04/2023 9:00 AM HI LOW TRUCK DRIVER Infusion Department of Infusion Therapy in [address] [place] [phone] Mari Noguera M.D. [address] [place] [phone] 04/13/2023 10:10 AM HI LOW TRUCK DRIVER Appointment Department of Laboratory Medicine in [place] [address] [place] [address] Mari Noguera M.D. [address] [place] [phone] 04/14/2023 9:00 AM HI LOW TRUCK DRIVER Infusion Department of Infusion Therapy in [address] [phone] Mari Noguera M.D. [address] [place] [phone] documented as of this encounter Visit Diagnoses Diagnosis Multiple Myeloma Not Having Achieved Remission (HCC)- Primary documented in this encounter Additional Health Concerns Infection Onset Date Last Indicated Resolved Time Protective Environment 06/03/2022 06/03/2022 documented as of this encounter Care Teams Motor And Controls Tester Relationship Specialty Start Date End Date Elsewhere, Pcp PCP - General Internal Medicine 04/01/22 documented as of this encounter
--- OUTSIDE RECORDS SUMMARY | 2023-03-08 08:55 | XMS_ITS | Encounter Summary ---
Author Name Unknown Organization [facility] Address [address] [place] [address] Care Team Providers Care Blind Stitch Machine Operator Name Role Phone Elsewhere, Pcp Primary Care Provider Unavailabl e Reason for Visit * Reason Comments Med Refill Encounter Details Date Type Department Care Team (Late st Contact Info) Description 07/28/2022 Refill Department of Oncology in [place], [place] [address] [place] [phone] Mari Noguera M.D. [address] [place] [phone] Med Refill Social History Tobacco [...] week 06/11/2021 How often do you attend [facility] or scientology services? 1 to 4 times per year 06/11/2021 Do you belong to any clubs o r organizations such as episcopalian groups, unions, fraternal or athletic groups, or [...] Score 4 11/18/2021 [facility] - Occupational [...] Info) Description 03/16/2023 10:30 AM DIRECTOR OF SCIENCE Appointment Department of Laboratory Medicine in [place] [address] [place] [phone] Mari Noguera M.D. [address] [place] [phone] 03/17/2023 8:40 AM DIRECTOR OF SCIENCE Office Visit Department of Oncology in [address] [place] [phone] Mari Noguera M.D. [address] [place] [phone] 03/17/2023 9:45 AM DIRECTOR OF SCIENCE Infusion Department of Infusion Therapy in [address] [place] [address] Mari Noguera M.D. [address] [place] [phone] 03/31/2023 10:10 AM DIRECTOR OF SCIENCE Appointment Department of Laboratory Medicine in [address] [phone] Mari Noguera M.D. [address] [place] [phone] 04/04/2023 8:20 AM DIRECTOR OF SCIENCE Office Visit Department of Oncology in [address] [place] [address] Mari Noguera M.D. [address] [place] [phone] 04/04/2023 9:00 AM DIRECTOR OF SCIENCE Infusion Department of Infusion Therapy in [address] [phone] Mari Noguera M.D. [address] [place] [phone] 04/13/2023 10:10 AM DIRECTOR OF SCIENCE Appointment Department of Laboratory Medicine in [address] [phone] Mari Noguera M.D. [address] [place] [phone] 04/14/2023 9:00 AM DIRECTOR OF SCIENCE Infusion Department of Infusion Therapy in [place], [place] [address] [place] [phone] Mari Noguera M.D. [address] [place] [phone] documented as of this encounter Visit Diagnoses Diagnosis Multiple Myeloma Not Having Achieved Remission (HCC) documented in this encounter Additional Health Concerns Infection Onset Date Last Indicated Resolved Time Protective Environment 06/03/2022 06/03/2022 documented as of this encounter Care Teams Blind Stitch Machine Operator Relationship Specialty Start Date End Date Elsewhere, Pcp PCP - General Internal Medicine 04/01/22 documented as of this encounter
--- OUTSIDE RECORDS SUMMARY | 2023-03-08 08:55 | XMS_ITS | Encounter Summary ---
Author Name Unknown Organization [facility] Address [address] [place] [address] Care Team Providers Care Ecological Technical Officer Name Role Phone Elsewhere, Pcp Primary Care Provider Unavailabl e Encounter Details Date Type Department Care Team (Late st Contact Info) Description 07/11/2022 1:40 PM CDT Nurse Only Section of Infectious Diseases in [place], [place] [address] [place] [address] Dorene Varela M.D. [address] [place] [address] Veronica Mensah R.N. Social History Tobacco Use Types Packs/Day Years [...] do you attend [facility] or yazidism services? 1 to 4 times per year [...] Answer Date Recorded PHQ-2 Score 4 11/18/2021 [facility] of Occupat ional Health - Occupational Stress [...] as of this encounter Progress Notes * Veronica Mensah R.N. - 07/11/2022 1:40 PM CDT PROC IMM Visit 07/11/2022 Pt Type: Post SCT Date of Transplant 12/02/21 Visit # 1 Graft Vs Host Disease: N/A Patient's Plan for Future Vaccination Visits: Patient will return for Post Stem Cell Transplant immunizations, visit #1 at a future date. Additional Notes: Patient presented to [facility] today for Post Stem Cell Transplant immunizations, visit #1. Upon arrival, patient's face was noticeably bright red with swollen eyes, inflamedlips, and visible skin flaking with and without movement. Patient's redness additionally spread to her upper breast area, turning from a general redness to a petechia-like appearance from the neck tothe upper chest (with occasional raised bumps). The patient stated this appearance has lasted roughly two weeks since applying a Adelina moisturizer to her face. While she states she normally uses this on her body without any reaction, she decided to try it on her face. She notes that within 10 minutes, her face was burning and she quickly rinsed it off. She notes the following day, her face wasentirely red, irritated, itchy, and swollen. After several days, the swelling progressed to almost completely obscuring her vision. She then went to the ED in [place] where she describes being told she couldn't have her any steroids due to her stem cell transplant status (November,). She was therefore recommended to use cerave/cetaphil and benadryl 3x a day for 5 days. However, she states she has been utilizing both interventions for roughly 14 days. Per patient, this affected area is horribly itchy with skin prickling and overall very miserable. She also notes worsening skin flakingdue to her dry skin stating once I put lotion on, it absorbs into my skin and keeps on flaking. Patient denies any shortness of breath, swelling of the throat and no fever. Vitals taken at visit: B/P: 142/63 P: 47 T: 98 F This RN spoke to [facility] ([facility]) provider Shannon Canada APRN, CNP for furtherrecommendations and safety of vaccination administration. Per Shannon, patient is recommended to address facial and partial chest irritation as soon as possible which could be achieved by presenting [facility] ED or obtaining a referral to dermatology by her PCP. Given the severity of her symptoms, the patient elected to present to the ED for further evaluation and intervention. Immunizations were therefore postponed as a precaution, should the patient have a reaction to any vaccinations included in Visit #1 (note: patient denied any significant previous reactions to any vaccine). Patient and accompanying family member verbalized understanding of the plan of care. Patient stated intent to return to the Immunization Clinic for Visit #1 after her skin irritation is better controlled. All questions answered at the time of this visit. Recommendations for patient's return visit are as follows: - Hib - Polio - HepA - HepB-DF - Menquadfi - PCV20 - Shingrix *Patient has received Tdap on 04/15/22* Visit #2-4 can follow immunization guideline Post SCT. documented in this encounter Plan of Treatment Upcoming Encounters Date Type Department Care Team (Late st Contact Info) Description 03/16/2023 10:30 AM MANUFACTURING INTERN Appointment Department of Laboratory Medicine in [address] [phone] Mari Noguera M.D. [address] [place] [phone] 03/17/2023 8:40 AM MANUFACTURING INTERN Office Visit Department of Oncology in [address] [phone] Mari Noguera M.D. [address] [place] [phone] 03/17/2023 9:45 AM MANUFACTURING INTERN Infusion Department of Infusion Therapy in [address] [phone] Mari Noguera M.D. [address] [place] [phone] 03/31/2023 10:10 AM MANUFACTURING INTERN Appointment Department of Laboratory Medicine in [address] [phone] Mari Noguera M.D. [address] [place] [phone] 04/04/2023 8:20 AM MANUFACTURING INTERN Office Visit Department of Oncology in [place] [address] [facility] [phone] Mari Noguera M.D. [address] [place] [phone] 04/04/2023 9:00 AM MANUFACTURING INTERN Infusion Department of Infusion Therapy in [address] [phone] Mari Noguera M.D. [address] [place] [phone] 04/13/2023 10:10 AM MANUFACTURING INTERN Appointment Department of Laboratory Medicine in [address] [place] [address] Mari Noguera M.D. [address] [place] [phone] 04/14/2023 9:00 AM MANUFACTURING INTERN Infusion Department of Infusion Therapy in [address] [phone] Mari Noguera M.D. [address] [place] [phone] documented as of this encounter Visit Diagnoses Not on filedocumented in this encounter Additional Health Concerns Infection Onset Date Last Indicated Resolved Time Protective Environment 06/03/2022 06/03/2022 documented as of this encounter Care Teams Ecological Technical Officer Relationship Specialty Start Date End Date Elsewhere, Pcp PCP - General Internal Medicine 04/01/22 documented as of this encounter
--- OUTSIDE RECORDS SUMMARY | 2023-03-08 08:55 | XMS_ITS | Encounter Summary ---
Author Name Unknown Organization [facility] Address [address] [place] [address] Care Team Providers Care Log Sorter Name Role Phone Elsewhere, Pcp Primary Care Provider Unavailabl e Encounter Details Date Type Department Care Team (Late st Contact Info) Description 07/11/2022 7:40 PM CDT Ancillary Procedure Department of Emergency [...] often do you attend [facility] or yazidism services? 1 to 4 times [...] Answer Date Recorded PHQ-2 Score 4 11/18/2021 [facility] of Occupat ional Health - Occupational Stress [...] st Contact Info) Description 03/16/2023 10:30 AM COMPLAINT SPECIALIST Appointment Department of Laboratory Medicine in [address] [phone] Mari Noguera M.D. [address] [place] [phone] 03/17/2023 8:40 AM COMPLAINT SPECIALIST Office Visit Department of Oncology in [address] [phone] Noguera, Mari, M.D. [address] [place] [phone] 03/17/2023 9:45 AM COMPLAINT SPECIALIST Infusion Department of Infusion Therapy in [place] [address] [place] [address] Mari Noguera M.D. [address] [place] [phone] 03/31/2023 10:10 AM COMPLAINT SPECIALIST Appointment Department of Laboratory Medicine in [address] [phone] Mari Noguera M.D. [address] [place] [phone] 04/04/2023 8:20 AM COMPLAINT SPECIALIST Office Visit Department of Oncology in [address] [phone] Mari Noguera M.D. [address] [place] [phone] 04/04/2023 9:00 AM COMPLAINT SPECIALIST Infusion Department of Infusion Therapy in [address] [phone] Mari Noguera M.D. [address] [place] [phone] 04/13/2023 10:10 AM COMPLAINT SPECIALIST Appointment Department of Laboratory Medicine in [address] [phone] aMri Noguera M.D. [address] [place] [phone] 04/14/2023 9:00 AM COMPLAINT SPECIALIST Infusion Department of Infusion Therapy in [address] [phone] Mari Noguera M.D. [address] [place] [phone] documented as of this encounter Procedures Procedure Name Priority Date/Time Associated Diagnosis Comments EMERGENCY MEDICINE IMAGE EXAM Routine 07/11/2022 7:37 PM CDT documented in this encounter Results * Face 507-Emergency Medicine Image Exam (07/11/2022 7:37 PM CDT) 07/11/2022 7:35 PM CDT Narrative [...] documented as of this encounter Care Teams Log Sorter Relationship Specialty Start Date End Date Elsewhere, Pcp PCP - General Internal Medicine 04/01/22 documented as of this encounter
--- OUTSIDE RECORDS SUMMARY | 2023-03-08 08:55 | XMS_ITS | Encounter Summary ---
Author Name Unknown Organization [facility] Address [address] [place] [address] Care Team Providers Care Renal Nurse Name Role Phone Elsewhere, Pcp Primary Care [...] 17 total visits Mari Noguera M.D. [address] [place] [address] [facility] Region Referral ID Status Reason Start Date Expiration Date V isits Requested Visits Authorized [id number] Authorized 05/28/2021 02/27/2024 31 31 Encounter Details Date Type Department Care Team (Late st Contact Info) Description 08/03/2022 11:45 AM CDT Infusion Department of Infusion Therapy in [address] [phone] Mari Noguera M.D. [address] [place] [phone] Multiple Myeloma Not Having Achieved Remission [...] you attend [facility] or roman catholic services? 1 to 4 [...] Answer Date Recorded PHQ-2 Score 4 11/18/2021 [facility] of Occupat ional Health - Occupational Stress [...] Sign Reading Time Taken Comments Blood Pressure 142/42 08/03/2022 12:39 PM CDT Pulse 47 08/03/2022 12:39 PM CDT Temperature 36.2 ??C (97.2 ??F) 08/03/2022 12:39 PM C DT Respiratory Rate 18 08/03/2022 12:39 PM CDT Oxygen Saturation 93% 08/03/2022 12:39 PM CDT Inhaled Oxygen Concentration - - Weight - - Height - - Body Mass Index - - documented in this encounter Progress Notes * Donita Sandhu R.N. - 08/03/2022 11:45 AM CDT Pulse today: 1 episode at 36 otherwise ranging 45-[address] Redman aware, gave orders viaemail to proceed with treatment today. Pt will check her pulse at home and will notify PCP if it continues to be low. Pt verbalized understanding. documented in this encounter Plan of Treatment Upcoming Encounters Date Type Department Care Team (Late st Contact Info) Description 03/16/2023 10:30 AM DISTRICT SUPERVISOR Appointment Department of Laboratory Medicine in [place] [address] [place] [address] Mari Noguera M.D. [address] [place] [phone] 03/17/2023 8:40 AM DISTRICT SUPERVISOR Office Visit Department of Oncology in [address] [phone] Mari Noguera M.D. [address] [place] [phone] 03/17/2023 9:45 AM DISTRICT SUPERVISOR Infusion Department of Infusion Therapy in [address] [phone] Mari Noguera M.D. [address] [place] [phone] 03/31/2023 10:10 AM DISTRICT SUPERVISOR Appointment Department of Laboratory Medicine in [address] [phone] Mari Noguera M.D. [address] [place] [phone] 04/04/2023 8:20 AM DISTRICT SUPERVISOR Office Visit Department of Oncology in [address] [phone] Mari Noguera M.D. [address] [place] [phone] 04/04/2023 9:00 AM DISTRICT SUPERVISOR Infusion Department of Infusion Therapy in [address] [phone] Mari Noguera M.D. [address] [place] [phone] 04/13/2023 10:10 AM DISTRICT SUPERVISOR Appointment Department of Laboratory Medicine in [address] [phone] Mari Noguera M.D. [address] [place] [phone] 04/14/2023 9:00 AM DISTRICT SUPERVISOR Infusion Department of Infusion Therapy in [address] [place] [address] Mari Noguera M.D. [address] [place] [address] documented as of this encounter [...] BSA from Measured weight), subcutaneous, Once, On Mon08/03/22 at 1330, For 1 dose, Rotate injection site. Given 08/03/2022 1:37 PM CDT 2.5 mg Left Upper Abdomen documented in this encounter Additional Health Concerns Infection Onset Date Last Indicated Resolved Time Protective Environment 06/03/2022 06/03/2022 documented as of this encounter Care Teams Renal Nurse Relationship Specialty Start Date End Date Elsewhere, Pcp PCP - General Internal Medicine 04/01/22 documented as of this encounter
--- OUTSIDE RECORDS SUMMARY | 2023-03-08 08:56 | XMS_ITS | Encounter Summary ---
Author Name Unknown Organization [facility] Address [address] [place] [address] Care Team Providers Care Aquatic Director Name Role Phone Elsewhere, Pcp Primary Care Provider Unavailabl e Reason for Referral * Outpatient (Routine) Specialty Diagnoses / Procedures Referred By Guillermina zamora Referred To Contact Hematology Oncology Mari Noguera M.D. [address] [place] [phone] [facility] Region Referral ID Status Reason [...] / 17 total visits Mari Noguera M.D. [address] [place] [phone] [facility] Region Referral ID Status Reason Start Date Expiration Date V isits Requested Visits Authorized [id number] Authorized 05/28/2021 02/27/2024 31 31 Encounter Details Date Type Department Care Team (Late st Contact Info) Description 07/08/2022 9:20 AM CDT Office Visit Department of Oncology in [place], [place] [address] [place] [address] Mari Noguera M.D. [address] [place] [phone] Multiple Myeloma Not Having Achieved Remission (HCC) (Primary Dx); Dermatitis Allergic Contact Social History Tobacco Use Types Packs/Day Years [...] Date Recorded PHQ-2 Score 4 11/18/2021 [facility] of Occupat ional Health - Occupational [...] Sign Reading Time Taken Comments Blood Pressure 143/54 07/08/2022 9:08 AM CDT Pulse 46 07/08/2022 9:08 AM CDT Temperature 36.8 ??C (98.2 ??F) 07/08/2022 9:06 AM CD T Respiratory Rate - - Oxygen Saturation 100% 07/08/2022 9:06 AM CDT Inhaled Oxygen Concentration - - Weight 83.3 kg (183 lb 10.3 oz) 07/08/2022 9:06 AM CDT Height - - Body Mass Index 34.23 12/10/2021 1:49 PM CDT documented in this encounter Progress Notes * Mari Noguera M.D. - 07/08/2022 9:20 AM CDT SUBJECTIVE PRIMARY CARE PHYSICIAN ELSEWHERE, [...] chains: kappa: 8.01 mg/L; lambda: 33.64 mg/L; Manvel:Lambda Ratio: 0.24 SPEP: M-spike: 3.26 g/dL Immunofixation: [...] is seen to reassess prior to cycle 4 of maintenance Revlimid/Velcade in the post ASCT setting. Overall she has been feeling quite well. Her energy level has been excellent, She has not had any intercurrent infections. ECOG performance status of 2. No peripheral neuropathy. She has some alternating constipation and loose stool, no alexsandra diarrhea. One week ago she tried a new Adelina face cream and developed facial swelling and erythema afterwards. She was seen in the emergency department. At that point her eyes were almost swollen shut. Recommendation for antihistamine use. She has been using Benadryl 3 times daily, her eye swelling has markedly decreased but she continues to have redness of the skin with some flaking. She is currently using Aveeno face wash, she discontinued the Adelina products. She is not using any type of lotion or cream. REVIEW OF SYSTEMS Gastrointestinal: Positive for diarrhea. The following systems were negative: Constitutional, Skin, Eyes, ENT, Respiratory, Cardiovascular, Genitourinary, Hematologic, Musculoskeletal, Neurological, Psychiatric PHYSICAL [...] Upper Body: Right upper body: No supraclavicular or axillary adenopathy. Left upper body: No supraclavicular or axillary adenopathy. Skin Findings: No rash. Comments: Diffuse facial erythema extending down anterior neck, dry flaking skin, mild periorbital edema Neurological Mental Status: She is alert and oriented to person, place, and time. LABORATORY DATA Reviewed RADIOLOGICAL DATA No results found. 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 Treadwell will continue maintenance therapy with every other week bortezomib 1.3 mg/m2 and lenalidomide 10 mg 21 of 28 days, cycle #4 today. Myeloma indices drawn prior to her visit today, serum free light chains are within normal limits but slight upward trend, persistently positive serum immunofixation with no M spike. Follow-up in 1 month. Post transplant immunizations: She has already received [...] consider full anticoagulation in the perioperative period. Dermatitis skin reaction She has discontinued the precipitating product. She was instructed to use Vanicream liberally 3 times daily for the next week, she will continue with Benadryl for the periorbital edema which is mild today. Discussed that she should be using dye free and fragrance free products in the posttransplant setting. Recommendation for additional Vanicream products, could also use Cetaphil or CeraVe products. Discussed the need for sun protection as the weather gets warmer as well. Mari Noguera M.D. documented in this encounter Plan of Treatment Upcoming Encounters Date Type Department Care Team (Late st Contact Info) Description 03/16/2023 10:30 AM ORDER PICKER/ASSEMBLER Appointment Department of Laboratory Medicine in [address] [phone] Mari [place] [phone] 03/17/2023 8:40 AM ORDER PICKER/ASSEMBLER Office Visit Department of Oncology in [address] [phone] Mari [place] [phone] 03/17/2023 9:45 AM ORDER PICKER/ASSEMBLER Infusion Department of Infusion Therapy in [address] [place] [phone] Mari Noguera M.D. [address] [place] [phone] 03/31/2023 10:10 AM ORDER PICKER/ASSEMBLER Appointment Department of Laboratory Medicine in [address] [address] Mari Nogurea M.D. [address] [place] [phone] 04/04/2023 8:20 AM ORDER PICKER/ASSEMBLER Office Visit Department of Oncology in [address] [phone] Mari Noguera M.D. [address] [place] [phone] 04/04/2023 9:00 AM ORDER PICKER/ASSEMBLER Infusion Department of Infusion Therapy in [address] [phone] Mari Noguera M.D. [address] [place] [phone] 04/13/2023 10:10 AM ORDER PICKER/ASSEMBLER Appointment Department of Laboratory Medicine in [address] [phone] Mari Noguera M.D. [address] [place] [phone] 04/14/2023 9:00 AM ORDER PICKER/ASSEMBLER Infusion Department of Infusion Therapy in [address] [phone] Mari Noguera M.D. [address] [place] [phone] Scheduled Referrals Name Type Priority Associated Diagnoses Order Schedule Hematology office visit (clinic) [facility] Region; Pre-Chemo Outpatient Referral Routine Multiple Myeloma Not Having Achieved Remission (HCC) Expected: 08/05/2022, Expires: 08/06/2023 documented as of this encounter Results * (ABNORMAL) Comprehensive Metabolic Panel (08/03/2022 10:15 AM CDT) Potassium, P 5.0 3.6 - 5.2 mmol/L [...] CDT Mari Noguera M.D. LAB BLOOD ADD-ON [facility] [address] [place] [address], [facility] in [place] [address] [place] [address] * (ABNORMAL) CBC with Differential, Blood (08/03/2022 10:15 AM CDT) Hemoglobin 11.9 11.6 - 15.0 g/dL 08/03/2022 [...] CDT Mari Noguera M.D. LAB BLOOD ADD-ON [facility] [address] [place] [address], [facility] in [place] [address] [place] [address] documented in this encounter Visit Diagnoses Diagnosis Multiple Myeloma Not Having Achieved Remission (HCC)- Primary Dermatitis Allergic Contact documented in this encounter Additional Health Concerns Infection Onset Date Last Indicated Resolved Time Protective Environment 06/03/2022 06/03/2022 documented as of this encounter Care Teams Aquatic Director Relationship Specialty Start Date End Date Elsewhere, Pcp PCP - General Internal Medicine 04/01/22 documented as of this encounter
--- OUTSIDE RECORDS SUMMARY | 2023-03-08 08:56 | XMS_ITS | Encounter Summary ---
Author Name Unknown Organization [facility] Address [address] [place] [address] Care Team Providers Care Director Talent Name Role Phone Elsewhere, Pcp Primary Care [...] 17 total visits Mari Noguera M.D. [address] [place] [address] [facility] Region Referral ID Status Reason Start Date Expiration Date V isits Requested Visits Authorized [id number] Authorized 05/28/2021 02/27/2024 31 31 Encounter Details Date Type Department Care Team (Late st Contact Info) Description 06/21/2022 3:45 PM CDT Infusion Department of Infusion Therapy in [address] [phone] Mari Noguera M.D. [address] [place] [phone] Multiple Myeloma Not Having Achieved Remission [...] How often do you attend [facility] or church services? 1 to 4 [...] Answer Date Recorded PHQ-2 Score 4 11/18/2021 [facility] [place] of Occupat ional Health - Occupational Stress [...] st Contact Info) Description 03/16/2023 10:30 AM CHILD & ADOLESCENT PSYCHIATRIST Appointment Department of Laboratory Medicine in [address] [address] Mari Noguera M.D. [address] [place] [phone] 03/17/2023 8:40 AM CHILD & ADOLESCENT PSYCHIATRIST Office Visit Department of Oncology in [address] [phone] Mari Noguera M.D. [address] [place] [phone] 03/17/2023 9:45 AM CHILD & ADOLESCENT PSYCHIATRIST Infusion Department of Infusion Therapy in [address] [phone] Mari Noguera M.D. [address] [place] [phone] 03/31/2023 10:10 AM CHILD & ADOLESCENT PSYCHIATRIST Appointment Department of Laboratory Medicine in [address] [address] Mari Noguera M.D. [address] [place] [phone] 04/04/2023 8:20 AM CHILD & ADOLESCENT PSYCHIATRIST Office Visit Department of Oncology in [address] [phone] Mari Noguera M.D. [address] [place] [phone] 04/04/2023 9:00 AM CHILD & ADOLESCENT PSYCHIATRIST Infusion Department of Infusion Therapy in [address] [phone] Mari Noguera M.D. [address] [place] [phone] 04/13/2023 10:10 AM CHILD & ADOLESCENT PSYCHIATRIST Appointment Department of Laboratory Medicine in [address] [phone] Mari Noguera M.D. [address] [place] [phone] 04/14/2023 9:00 AM CHILD & ADOLESCENT PSYCHIATRIST Infusion Department of Infusion Therapy in [address] [phone] Mari Noguera M.D. [address] [place] [phone] documented as of this encounter Visit Diagnoses [...] BSA from Measured weight), subcutaneous, Once, On Mon06/21/22 at 1630, For 1 dose, Rotate injection site. Given 06/21/2022 4:51 PM CDT 2.5 mg Right Upper Abdomen documented in this encounter Additional Health Concerns Infection Onset Date Last Indicated Resolved Time Protective Environment 06/03/2022 06/03/2022 documented as of this encounter Care Teams Director Talent Relationship Specialty Start Date End Date Elsewhere, Pcp PCP - General Internal Medicine 2/3/23 documented as of this encounter
--- OUTSIDE RECORDS SUMMARY | 2023-03-08 08:56 | XMS_ITS | Encounter Summary ---
Author Name Unknown Organization [facility] Address [address] [place] [address] Care Team Providers Care Cash Register Mechanic Name Role Phone Elsewhere, Pcp Primary Care [...] 17 total visits Mari Noguera M.D. [address] [place] [address] [facility] Region Referral ID Status Reason Start Date Expiration Date V isits Requested Visits Authorized [id number] Authorized 05/28/2021 02/27/2024 31 31 Encounter Details Date Type Department Care Team (Late st Contact Info) Description 06/07/2022 2:30 PM CDT Infusion Department of Infusion Therapy in [address] [phone] Mari Noguera M.D. [address] [place] [phone] Multiple Myeloma Not Having Achieved Remission [...] 06/11/2021 How often do you attend [facility] or rastafari services? 1 to 4 times per year 06/11/2021 Do you belong to any clubs o r organizations such as congregational groups, unions, fraternal or athletic groups, or [...] Answer Date Recorded PHQ-2 Score 4 11/18/2021 [facility] of Occupat ional Health - Occupational Stress [...] st Contact Info) Description 03/16/2023 10:30 AM PRINTING SCREEN ASSEMBLER Appointment Department of Laboratory Medicine in [address] [phone] Mari Noguera M.D. [address] [place] [phone] 03/17/2023 8:40 AM PRINTING SCREEN ASSEMBLER Office Visit Department of Oncology in [address] [phone] Mari Noguera M.D. [address] [place] [phone] 03/17/2023 9:45 AM PRINTING SCREEN ASSEMBLER Infusion Department of Infusion Therapy in [address] [phone] Mari Noguera M.D. [address] [place] [phone] 03/31/2023 10:10 AM PRINTING SCREEN ASSEMBLER Appointment Department of Laboratory Medicine in [address] [address] Mari Noguera M.D. [address] [place] [phone] 04/04/2023 8:20 AM PRINTING SCREEN ASSEMBLER Office Visit Department of Oncology in [address] [phone] Mari Noguera M.D. [address] [place] [phone] 04/04/2023 9:00 AM PRINTING SCREEN ASSEMBLER Infusion Department of Infusion Therapy in [address] [phone] Mari Noguera M.D. [address] [place] [phone] 04/13/2023 10:10 AM PRINTING SCREEN ASSEMBLER Appointment Department of Laboratory Medicine in [address] [phone] Mari Noguera M.D. [address] [place] [phone] 04/14/2023 9:00 AM PRINTING SCREEN ASSEMBLER Infusion Department of Infusion Therapy in [address] [phone] Mari Noguera M.D. [address] [place] [phone] documented as of this encounter Visit Diagnoses [...] BSA from Measured weight), subcutaneous, Once, On Mon06/07/22 at 1545, For 1 dose, Rotate injection site. Given 06/07/2022 4:03 PM CDT 2.5 mg Left Upper Abdomen documented in this encounter Additional Health Concerns Infection Onset Date Last Indicated Resolved Time Protective Environment 06/03/2022 06/03/2022 documented as of this encounter Care Teams Cash Register Mechanic Relationship Specialty Start Date End Date Elsewhere, Pcp PCP - General Internal Medicine 2/3/23 documented as of this encounter
--- OUTSIDE RECORDS SUMMARY | 2023-03-08 08:56 | XMS_ITS | Encounter Summary ---
Author Name Unknown Organization [facility] Address [address] [place] [address] Care Team Providers Care Loom Fixer Supervisor Name Role Phone Elsewhere, Pcp Primary Care Provider Unavailabl e Encounter Details Date Type Department Care Team (Late st Contact Info) Description 06/21/2022 Orders Only Department of Oncology in [place], [place] [address] [place] [phone] Mari Noguera M.D. [address] [place] [address] Multiple Myeloma In Remission (HCC) (Primary Dx) Social History Tobacco [...] How often do you attend chur or amish services? 1 to 4 times per year [...] 4 11/18/2021 [facility] - Occupational Stress Questionnaire Answer [...] st Contact Info) Description 03/16/2023 10:30 AM CISTERN ROOM OPERATOR Appointment Department of Laboratory Medicine in [place] [address] [place] [phone] Mari Noguera M.D. [address] [place] [address] 03/17/2023 8:40 AM CISTERN ROOM OPERATOR Office Visit Department of Oncology in [address] [place] [phone] Mari Noguera M.D. [facility] [place] [phone] 03/17/2023 9:45 AM CISTERN ROOM OPERATOR Infusion Department of Infusion Therapy in [address] [place] [address] Mari Noguera M.D. [address] [place] [phone] 03/31/2023 10:10 AM CISTERN ROOM OPERATOR Appointment Department of Laboratory Medicine in [address] [address] Mari Noguera M.D. [address] [place] [phone] 04/04/2023 8:20 AM CISTERN ROOM OPERATOR Office Visit Department of Oncology in [address] [place] [address] Mari Noguera M.D. [address] [place] [phone] 04/04/2023 9:00 AM CISTERN ROOM OPERATOR Infusion Department of Infusion Therapy in [address] [phone] Mari Noguera M.D. [address] [place] [phone] 04/13/2023 10:10 AM CISTERN ROOM OPERATOR Appointment Department of Laboratory Medicine in [address] [phone] Mari Noguera M.D. 701 [place] [phone] 04/14/2023 9:00 AM CISTERN ROOM OPERATOR Infusion Department of Infusion Therapy in [place], [place] [address] [place] [address] Mari Noguera M.D. [address] [place] [phone] documented as of this encounter Results * (ABNORMAL) CBC with Differential, Blood (06/21/2022 4:11 PM CDT) [facility] Hemoglobin 12.0 11.6 - 15.0 g/dL 06/21/2022 4:18 PM CDT [facility] Hematocrit 39.6 35.5 - 44.9 % 06/21/2022 4:18 PM CDT [facility] Erythrocytes 4.17 3.92 - 5.13 x10(12)/L 06/21/2022 4:18 PM CDT [facility] MCV 95.0 78.2 - 97.9 fL 06/21/2022 4:18 PM CDT [facility] RBC Distrib Width 14.8 12.2 - 16.1 % 06/21/2022 4:18 PM CDT [facility] Platelet Count 113(L) 157 - 371 x10(9)/L 06/21/2022 4:18 PM CDT [facility] Leukocytes 5.1 3.4 - 9.6 x10(9)/L 06/21/2022 4:18 PM CDT [facility] Neutrophils 3.17 1.56 - 6.45 x10(9)/L 06/21/2022 4:18 PM CDT [facility] Lymphocytes 1.01 0.95 - 3.07 x10(9)/L 06/21/2022 4:18 PM CDT [facility] Monocytes 0.50 0.26 - 0.81 x10(9)/L 06/21/2022 4:18 PM CDT [facility] Eosinophils 0.34 0.03 - 0.48 x10(9)/L 06/21/2022 4:18 PM CDT [facility] Basophils 0.05 0.01 - 0.08 x10(9)/L 06/21/2022 4:18 PM CDT [facility] Blood (Blood, Venous) 06/21/2022 4:11 PM CDT 06/21/2022 4:11 PM CDT Mari Noguera M.D. LAB BLOOD ADD-ON [facility] [address] [place] [address], [facility] in [place] [address] [place] [phone] documented in this encounter Visit Diagnoses Diagnosis Multiple Myeloma In Remission (HCC)- Primary documented in this encounter Additional Health Concerns Infection Onset Date Last Indicated Resolved Time Protective Environment 06/03/2022 06/03/2022 documented as of this encounter Care Teams Loom Fixer Supervisor Relationship Specialty Start Date End Date Elsewhere, Pcp PCP - General Internal Medicine 04/01/22 documented as of this encounter
--- OUTSIDE RECORDS SUMMARY | 2023-03-08 08:56 | XMS_ITS | Encounter Summary ---
Author Name Unknown Organization [facility] Address [address] [place] [address] Care Team Providers Care Dev Technical Mgr Name Role Phone Elsewhere, Pcp Primary [...] 17 total visits Mari Noguera M.D. [address] [place] [phone] [facility] Region Referral ID Status Reason Start Date Expiration Date V isits Requested Visits Authorized [id number] Authorized 05/28/2021 02/27/2024 31 31 Encounter Details Date Type Department Care Team (Latest Contact Info) Description 07/08/2022 8:18 AM CDT - 07/08/2022 11:59 PM CDT Hospital Encounter Department of Laboratory Medicine in [place], [place] [address] [place] [phone] Mari Noguera M.D. [address] [place] [phone] Multiple Myeloma Not Having Achieved [...] [facility] or anglican services? 1 to 4 [...] 11/18/2021 [facility] of Occupat ional Health - Occupational [...] tablet Take 325 mg by mouth. 0 03/28/2022 10/07/2022 lenalidomide (REVLIMID) 10 mg capsuleIndications:Mul tiple Myeloma Not Having Achieved Remission (HCC) Take 1 capsule (10 mg total) by mouth daily. Take on days 1 through 21 of cycle. Take whole with water. Do not break, chew, or open. 21 capsule 0 05/06/2022 08/31/2022 lenalidomide (Revlimid) 10 mg capsuleIndications:Mul tiple Myeloma Not Having Achieved Remission (HCC) Take 1 capsule (10 mg total) by mouth daily. Take on days 1 through 21 of cycle. 21 capsule 0 07/03/2022 08/31/2022 penicillin V potassium (VEETIDS) 500 mg tablet Take 1 tablet (500 mg total) by mouth 2 (two) times a day. 60 tablet 11 12/01/2021 12/08/2022 RX WELCOME [id number] ONLY Welcome packet 1 each 0 04/26/2022 08/31/2022 documented as of this encounter Plan of Treatment Upcoming Encounters Date Type Department Care Team (Late st Contact Info) Description 03/16/2023 10:30 AM DIRECTOR OF CATERING Appointment Department of Laboratory Medicine in [place], [place] [address] [phone] Mari Noguera M.D. [address] [place] [address] [place] [phone] 03/17/2023 8:40 AM DIRECTOR OF CATERING Office Visit Department of Oncology in [place] [address] [facility] [place] [phone] Mari Noguera M.D. [facility] [place] [phone] 03/17/2023 9:45 AM DIRECTOR OF CATERING Infusion Department of Infusion Therapy in [place] [address] [place] [address] Mari Noguera M.D. [facility] [place] [address] 03/31/2023 10:10 AM DIRECTOR OF CATERING Appointment Department of Laboratory Medicine in [address] [address] Mari Noguera M.D. [facility] [place] [phone] 04/04/2023 8:20 AM DIRECTOR OF CATERING Office Visit Department of Oncology in [place] [address] [facility] [place] [phone] Mari Noguera M.D. [facility] [place] [phone] 04/04/2023 9:00 AM DIRECTOR OF CATERING Infusion Department of Infusion Therapy in [address] [address] Mari Noguera M.D. [facility] [place] [address] 04/13/2023 10:10 AM DIRECTOR OF CATERING Appointment Department of Laboratory Medicine in [address] [address] Mari Noguera M.D. 701 [place] [phone] 04/14/2023 9:00 AM DIRECTOR OF CATERING Infusion Department of Infusion Therapy in [place], [place] [address] [place] [address] Mari Noguera M.D. [address] [place] [phone] documented as of this encounter Procedures Procedure Name Priority Date/Time Associated Diagnosis Comments CBC WITH DIFFERENTIAL, B Routine 07/08/2022 8:35 AM CDT Multiple Myeloma Not Having Achieved Remission (HCC) COMPREHENSIVE METABOLIC PANEL, S/P Routine 07/08/2022 8:35 AM CDT Multiple Myeloma Not Having Achieved Remission (HCC) documented in this encounter Results * (ABNORMAL) Comprehensive Metabolic Panel (07/08/2022 8:35 AM CDT) Potassium, P 4.1 3.6 - 5.2 mmol/L 07/08/2022 9:06 AM CDT [facility] Sodium, P 140 135 - 145 mmol/L 07/08/2022 9:06 AM CDT [facility] Chloride, P 101 98 - 107 mmol/L 07/08/2022 9:06 AM CDT [facility] Bicarbonate, P 29 22 - 29 mmol/L 07/08/2022 9:06 AM CDT [facility] Anion Gap, P 10 7 - 15 07/08/2022 9:06 AM CDT [facility] BUN (Blood Urea Nitrogen), P 20 6 - 21 mg/dL 07/08/2022 9:06 AM CDT [facility] Creatinine 1.19(H) 0.59 - 1.04 mg/dL 07/08/2022 9:06 AM CDT [facility] Estimated GFR (eGFR) 48(L) >=60 mL/min/BS A 07/08/2022 9:06 AM CDT [facility] Comment: Estimated GFR calculated using the 2020 CKD_EPI creatinine equation. Calcium, Total, P 9.7 8.8 - 10.2 mg/dL 07/08/2022 9:06 AM CDT [facility] Glucose, P 107 70 - 140 mg/dL 07/08/2022 9:06 AM CDT [facility] Protein, Total, P 6.4 6.3 - 7.9 g/dL 07/08/2022 9:06 AM CDT [facility] Albumin, P 4.0 3.5 - 5.0 g/dL 07/08/2022 9:06 AM CDT [facility] Aspartate Aminotransferase (AST), P 24 8 - 43 U/L 07/08/2022 9:06 AM CDT [facility] Alkaline Phosphatase, P 72 35 - 104 U/L 07/08/2022 9:06 AM CDT [facility] Alanine Aminotransferase (ALT), P 20 7 - 45 U/L 07/08/2022 9:06 AM CDT [facility] Bilirubin, Total, P 0.3 <=1.2 mg/dL 07/08/2022 9:06 AM CDT [facility] Blood (Blood, Venous) 07/08/2022 8:35 AM CDT 07/08/2022 8:39 AM CDT Mari Noguera M.D. LAB BLOOD ADD-ON [facility] [address] [place] [address], [facility] in [place] [address] [place] [phone] * (ABNORMAL) CBC with Differential, Blood (07/08/2022 8:35 AM CDT) Hemoglobin 11.9 11.6 - 15.0 g/dL 07/08/2022 9:44 AM CDT [facility] Hematocrit 39.5 35.5 - 44.9 % 07/08/2022 9:44 AM CDT [facility] Erythrocytes 4.19 3.92 - 5.13 x10(12)/L 07/08/2022 9:44 AM CDT [facility] MCV 94.3 78.2 - 97.9 fL 07/08/2022 9:44 AM CDT [facility] RBC Distrib Width 15.3 12.2 - 16.1 % 07/08/2022 9:44 AM CDT [facility] Platelet Count 126(L) 157 - 371 x10(9)/L 07/08/2022 9:44 AM CDT [facility] Leukocytes 2.7(L) 3.4 - 9.6 x10(9)/L 07/08/2022 9:44 AM CDT [facility] Neutrophils 1.34(L) 1.56 - 6.45 x10(9)/L 07/08/2022 9:44 AM CDT [facility] Lymphocytes 0.49(L) 0.95 - 3.07 x10(9)/L 07/08/2022 9:44 AM CDT [facility] Monocytes 0.48 0.26 - 0.81 x10(9)/L 07/08/2022 9:44 AM CDT [facility] Eosinophils 0.29 0.03 - 0.48 x10(9)/L 07/08/2022 9:44 AM CDT [facility] Basophils 0.07 0.01 - 0.08 x10(9)/L 07/08/2022 9:44 AM CDT [facility] Blood (Blood, Venous) 07/08/2022 8:35 AM CDT 07/08/2022 8:39 AM CDT Mari Noguera M.D. LAB BLOOD ADD-ON [facility] [address] [place] [address], [facility] in [place] [address] [place] [address] documented in this encounter Visit Diagnoses Diagnosis Multiple Myeloma Not Having Achieved Remission (HCC) documented in this encounter Additional Health Concerns Infection Onset Date Last Indicated Resolved Time Protective Environment 06/03/2022 06/03/2022 documented as of this encounter Care Teams Dev Technical Mgr Relationship Specialty Start Date End Date Elsewhere, Pcp PCP - General Internal Medicine 04/01/22 documented as of this encounter
--- OUTSIDE RECORDS SUMMARY | 2023-03-08 08:56 | XMS_ITS | Encounter Summary ---
Author Name Unknown Organization [facility] Address [address] [place] [address] Care Team Providers Care Mechanical Commissioning Engineer Name Role Phone Elsewhere, Pcp Primary [...] 17 total visits Mari Noguera M.D. [address] [place] [address] [facility] Region Referral ID Status Reason Start Date Expiration Date V isits Requested Visits Authorized [id number] Authorized 05/28/2021 02/27/2024 31 31 Encounter Details Date Type Department Care Team (Latest Contact Info) Description 06/21/2022 2:01 PM CDT - 06/21/2022 3:12 PM CDT Hospital Encounter Department of Laboratory Medicine in [place], [place] [address] [place] [phone] Mari Noguera M.D. [address] [place] [address] Multiple Myeloma Not Having Achieved [...] you attend [facility] or gnosticist services? 1 to 4 times per year 06/11/2021 Do you belong to any clubs o r organizations such as hoahaoism groups, unions, fraternal or athletic groups, or [...] Recorded PHQ-2 Score 4 11/18/2021 [facility] of Occupat ional [...] open. 21 capsule 0 05/06/2022 08/31/2022 lenalidomide (REVLIMID) 10 mg capsuleIndications:Mul tiple Myeloma Not Having Achieved Remission (HCC) Take 1 capsule (10 mg total) by mouth daily. Take on days 1 through 21 of cycle. 21 capsule 0 06/07/2022 06/28/2022 penicillin V potassium (VEETIDS) 500 mg tablet Take 1 tablet (500 mg total) by mouth 2 (two) times a day. 60 tablet 11 12/01/2021 12/08/2022 RX WELCOME [id number] ONLY Welcome packet 1 each 0 04/26/2022 08/31/2022 documented as of this encounter Plan of Treatment Upcoming Encounters Date Type Department Care Team (Late st Contact Info) Description 03/16/2023 10:30 AM MATERIAL ENGINEER Appointment Department of Laboratory Medicine in [place], [place] [address] [place] [phone] Mrai Noguera M.D. [address] [place] [address] [place] [phone] 03/17/2023 8:40 AM MATERIAL ENGINEER Office Visit Department of Oncology in [place] [address] [place] [phone] Mari Noguera M.D. [facility] [place] [phone] 03/17/2023 9:45 AM MATERIAL ENGINEER Infusion Department of Infusion Therapy in [place] [address] [place] [address] Mari Noguera M.D. [facility] [address] 03/31/2023 10:10 AM MATERIAL ENGINEER Appointment Department of Laboratory Medicine in [address] [address] Mari Noguera M.D. [facility] [place] [phone] 04/04/2023 8:20 AM MATERIAL ENGINEER Office Visit Department of Oncology in [place] [address] [place] [address] Mari Noguera M.D. [facility] [place] [phone] 04/04/2023 9:00 AM MATERIAL ENGINEER Infusion Department of Infusion Therapy in [address] [address] Mari Noguera M.D. [facility] [place] [address] 04/13/2023 10:10 AM MATERIAL ENGINEER Appointment Department of Laboratory Medicine in [address] [address] Mari Noguera M.D. 701 [place] [address] 04/14/2023 9:00 AM MATERIAL ENGINEER Infusion Department of Infusion Therapy in [place], [place] [address] [place] [address] Mari Noguera M.D. 701 [place] [address] documented as of this encounter Procedures Procedure Name Priority Date/Time Associated Diagnosis Comments MONOCLONAL PROTEIN STUDY (MPSS), EXPANDED PANEL, S Routine 06/21/2022 2:11 PM CDT Multiple Myeloma Not Having Achieved Remission (HCC) documented in this encounter Results * (ABNORMAL) Monoclonal Protein Study, Expanded Panel (06/21/2022 2:11 PM CDT) Total Protein, S 5.9(L) 6.3 - 7.9 g/dL 06/21/2022 9:46 PM CDT [facility] [place]way Free Light Chain, S 0.8300 0.3300 - 1.94 mg/dL 06/22/2022 8:27 AM CDT [facility] Lambda Free Light Chain, S 1.22 0.5700 - 2.63 mg/dL 06/22/2022 8:27 AM CDT [facility] Fairway/Lambda FLC Ratio 0.6803 0.2600 - 1.65 06/22/2022 8:27 AM CDT [facility] Albumin 4.2 3.4 - 4.7 g/dL 06/22/2022 2:20 PM CDT [facility] Alpha-1 Globulin 0.2 0.1 - 0.3 g/dL 06/22/2022 2:20 PM CDT E[facility] Alpha-2 Globulin 0.6 0.6 - 1.0 g/dL 06/22/2022 2:20 PM CDT [facility] Beta-Globulin 0.6(L) 0.7 - 1.2 g/dL 06/22/2022 2:20 PM CDT [facility] Gamma-Globulin 0.3(L) 0.6 - 1.6 g/dL 06/22/2022 2:20 PM CDT E[facility] A/G Ratio 2.52 06/22/2022 2:20 PM CDT ECL[facility] Impression Small abnormality in gamma fraction. Reviewed and interpreted by: ??Jeannie Rogers M.D. 06/22/2022 2:20 PM CDT ECL[facility] Flag, Immunofixation Positive(A) Negative 06/22/2022 2:17 PM CDT ECL[facility] Immunofixation Monoclonal IgG lambda. Small monoclonal IgM lambda within the gamma fraction. Reviewed and interpreted by: ??Jeannie Rogers M.D. 06/22/2022 2:17 PM CDT E[facility] Blood (Blood, Venous) 06/21/2022 2:11 PM CDT 06/21/2022 9:25 PM CDT Narrative [facility] - 06/22/2022 2:20 PM CDT Specimen Information: Specimen ID: [id number] Specimen Type: Blood Specimen Collection Start Date: 06/21/2022 ??2:16 PM Specimen Received Date: 06/21/2022 ??9:25 PM Specimen ID: [id number] Specimen Type: Blood Specimen Collection Start Date: 06/21/2022 ??2:16 PM Specimen Received Date: 06/21/2022 ??9:25 PM Specimen ID: [id number] Specimen Type: Blood Specimen Collection Start Date: 06/21/2022 ??2:11 PM Specimen Received Date: 06/21/2022 ??9:25 PM Mari Noguera M.D. LAB BLOOD ADD-ON [facility] [address] [place] [address], [facility] ECL[facility] in [address] [place] [phone] documented in this encounter Visit Diagnoses Diagnosis Multiple Myeloma Not Having Achieved Remission (HCC) documented in this encounter Additional Health Concerns Infection Onset Date Last Indicated Resolved Time Protective Environment 06/03/2022 06/03/2022 documented as of this encounter Care Teams Mechanical Commissioning Engineer Relationship Specialty Start Date End Date Elsewhere, Pcp PCP - General Internal Medicine 04/01/22 documented as of this encounter
--- OUTSIDE RECORDS SUMMARY | 2023-03-08 08:56 | XMS_ITS | Encounter Summary ---
Author Name Unknown Organization [facility] Address [address] [place] [address] Care Team Providers Care Experimental Box Tester Name Role Phone Elsewhere, Pcp Primary Care Provider Unavailabl e Reason for Visit * Reason Onset Date Comments ONC lab orders needed 06/08/2022 Encounter Details Date Type Department Care Team (Latest Contact Info) Description 06/08/2022 Clinical Communication Department of Oncology in [place], [place] [address] [place] [address] Mari Noguera M.D. [address] [place] [address] ONC lab orders needed Social History Tobacco Use Types Packs/Day Years [...] 06/11/2021 How often do you attend [facility] or denominational services? 1 to 4 times per year 06/11/2021 Do you belong to any clubs o r organizations such as mu-ism groups, unions, fraternal or athletic groups, or [...] Answer Date Recorded PHQ-2 Score 4 11/18/2021 [facility] of Occupat ional Health - Occupational [...] st Contact Info) Description 03/16/2023 10:30 AM POLISHER DIAL Appointment Department of Laboratory Medicine in [address] [phone] Mari Noguera M.D. [address] [place], [place] [address]tt [facility] [place] [phone] 03/17/2023 8:40 AM POLISHER DIAL Office Visit Department of Oncology in [place] [address] [facility] [place] [phone] Mari Noguera M.D. [address] [place] [phone] 03/17/2023 9:45 AM POLISHER DIAL Infusion Department of Infusion Therapy in [address] [place] [phone] Mari Noguera M.D. [address] [place] [phone] 03/31/2023 10:10 AM POLISHER DIAL Appointment Department of Laboratory Medicine in [address] [address] Mari Noguera M.D. [address] [place] [phone] 04/04/2023 8:20 AM POLISHER DIAL Office Visit Department of Oncology in [address] [phone] Mari Noguera M.D. [address] [place] [phone] 04/04/2023 9:00 AM POLISHER DIAL Infusion Department of Infusion Therapy in [address] [phone] Mari Noguera M.D. [address] [place] [phone] 04/13/2023 10:10 AM POLISHER DIAL Appointment Department of Laboratory Medicine in [address] [phone] Mari Noguera M.D. [address] [place] [phone] 04/14/2023 9:00 AM POLISHER DIAL Infusion Department of Infusion Therapy in [address] [phone] Mari Noguera M.D. [address] [place] [phone] documented as of this encounter Results * (ABNORMAL) CBC with Differential, Blood (07/22/2022 10:41 AM CDT) [facility] Hemoglobin 12.2 11.6 - 15.0 g/dL 07/22/2022 [...] CDT Mari Noguera M.D. LAB BLOOD ADD-ON [facility] 701 [place] [address], [facility] RDWG [facility] in [place] 701 [facility] [place] [address] * (ABNORMAL) Monoclonal Protein Study, Expanded Panel (07/22/2022 10:41 AM CDT) Total Protein, S 6.0(L) 6.3 - 7.9 g/dL 07/22/2022 3:04 PM CDT ECL[facility] [place] Free Light Chain, S 2.10(H) 0.3300 - 1.94 mg/dL 07/26/2022 8:47 AM CDT ECLR [place] Free Light Chain, S 1.75 0.5700 - 2.63 mg/dL 07/26/2022 8:47 AM CDT ECLR [place]/Lambda FLC Ratio 1.20 0.2600 - 1.65 07/26/2022 [...] AM CDT 07/22/2022 2:45 PM CDT Narrative [facility] - 07/27/2022 4:01 PM CDT Specimen Information: Specimen ID: [id number] Specimen Type: Blood Specimen Collection Start Date: 07/22/2022 10:41 AM Specimen Received Date: 07/22/2022 ??2:45 PM Specimen ID: [id number] Specimen Type: Blood Specimen Collection Start Date: 07/22/2022 10:41 AM Specimen Received Date: 07/22/2022 ??2:45 PM Specimen ID: [id number] Specimen Type: Blood Specimen Collection Start Date: 07/22/2022 10:41 AM Specimen Received Date: 07/22/2022 ??2:45 PM Mari Noguera M.D. LAB BLOOD ADD-ON [facility] [address] [place] [address], [facility] ECL[facility] in [address] [address] [address] [place] [phone] * (ABNORMAL) Comprehensive Metabolic Panel (07/08/2022 8:35 AM CDT) [facility] Potassium, P 4.1 3.6 - 5.2 mmol/L [...] CDT Mari Noguera M.D. LAB BLOOD ADD-ON [facility] 701 [facility] [place] [address], [facility] in [place] [address] [facility] [address] * (ABNORMAL) CBC with Differential, Blood (07/08/2022 [...] CDT Mari Noguera M.D. LAB BLOOD ADD-ON [facility] [address] [place] [address], [facility] in [place] [address] [place] [address] documented in this encounter Visit Diagnoses Diagnosis Multiple Myeloma Not Having Achieved Remission (HCC)- Primary Multiple Myeloma Not Having Achieved Remission (HCC) documented in this encounter Additional Health Concerns Infection Onset Date Last Indicated Resolved Time Protective Environment 06/03/2022 06/03/2022 documented as of this encounter Care Teams Experimental Box Tester Relationship Specialty Start Date End Date Elsewhere, Pcp PCP - General Internal Medicine 04/01/22 documented as of this encounter
--- OUTSIDE RECORDS SUMMARY | 2023-03-08 08:56 | XMS_ITS | Encounter Summary ---
Author Name Unknown Organization [facility] Address [address] [place] [address] Care Team Providers Care Microphone Boom Operator Name Role Phone Elsewhere, Pcp Primary Care Provider Unavailabl e Encounter Details Date Type Department Care Team (Late st Contact Info) Description 06/24/2022 Specialty Pharmacy [facility] [address] [place] [address] Janel Jensen, Pharm.D., R.Ph. [address] [place] [address] Social History Tobacco Use Types Packs/Day Years [...] often do you attend chur ch or quaker services? 1 to 4 times per year [...] encounter Miscellaneous Notes * Telephone Encounter - Janel Jensen, Pharm.D., R.Ph. - 06/24/2022 11:44 AM CDT SUBJECTIVE REASON FOR VISIT Specialty pharmacy reassessment of patient's hematology/oncology medication knowledge, adherence, and side effects using patient reported answers to patient portal driven questionnaire. HISTORY OF PRESENT ILLNESS Ms. Keysha Melendez is a 76 y.o. female, who is followed by the specialty pharmacy service for Revlimid (lenalidomide) . (Indication: hematology/oncology) Patient questionnaire submitted by patient via patient portal (Epic patient chart, encounter department: [facility]) Specialty Pharmacy Medication Adherence Questionnaire 06/24/2022 10:01 AM CDT - Filed by Patient In general, would you say your quality of life is: Good How would you rate your pain on average? 0 No pain How comfortable are you understanding the medication(s) you receive from [facility]? Very comfortable Have you experienced side effects from your specialty pharmacy medication(s)? No Have you missed any doses of your specialty pharmacy medication(s) in the last month? Yes Please rate your confidence in your ability to keep taking your medication(s) as prescribed 5-Very confident How would you rate the effectiveness of your specialty medication(s)? 5-Excellent Do you have any other concerns or questions? Number of doses missed in the last month 1 Reasons for missing doses Forget to take OBJECTIVE Lab Results Component Value Date CREATININE 1.02 06/07/2022 CREATININE 0.85 05/06/2022 EGFR 58 (L) 06/07/2022 EGFR 72 05/06/2022 ASSESSMENT / PLAN 1. Medication Knowledge and Adherence In reference to the 'Specialty Pharmacy Medication Adherence Questionnaire' on epic chart and reviewing refill history in the [facility] record. The patient/caregiver reports appropriate medication knowledge. The patient has missed 1 dose(s) of medication. We have sent a portal message to the patient via patient online services stressing the importance of adhering to the medication regimen and suggesting adherence tools. Contact information for the pharmacy was also included. [facility] Pharmacists are always available to discuss concerns and provide additional assistance for our patients. 2. Medication Side effects/Adverse Events In reference to the 'Specialty Pharmacy Medication Adherence Questionnaire': The patient/caregiver reports no medication side effects requiring attention. No reported adverse drug reactions, allergic reactions, overdoses or medication errors. 3. Confidence to continue Patient currently rating confidence to continue specialty medication(s) as prescribed as: 'Excellent/Very confident'.. 4. Effectiveness Patient reports medication effectiveness to be: 'excellent'. 5. Pain Pain rating from questionnaire = 0/10. 6. Summary with continued goals of therapy and other expectations/outcomes Based on the above information, the patient's therapy is appropriate to continue. Continue to: -Optimize medication adherence. -Evaluate/prevent drug-drug and drug-disease interactions. Good karen attempt made in maintaining acomplete medication list at each dispense of medication. -Minimize, prevent and/or manage side effects. Follow-up: 1 month(s) Janel Jensen Pharm.D., R.Ph. documented in this encounter Plan of Treatment Upcoming Encounters Date Type Department Care Team (Late st Contact Info) Description 03/16/2023 10:30 AM FREIGHT DELIVERY DRIVER Appointment Department of Laboratory Medicine in [address] [phone] Mari Noguera M.D. [address] [place] [phone] 03/17/2023 8:40 AM FREIGHT DELIVERY DRIVER Office Visit Department of Oncology in [address] [phone] Mari Noguera M.D. [address] [place] [phone] 03/17/2023 9:45 AM FREIGHT DELIVERY DRIVER Infusion Department of Infusion Therapy in [address] [phone] Mari Noguera M.D. [address] [place] [phone] 03/31/2023 10:10 AM FREIGHT DELIVERY DRIVER Appointment Department of Laboratory Medicine in [address] [address] Mari Noguera M.D. [address] [place] [phone] 04/04/2023 8:20 AM FREIGHT DELIVERY DRIVER Office Visit Department of Oncology in [address] [place] [phone] Mari Noguera M.D. [address] [place] [phone] 04/04/2023 9:00 AM FREIGHT DELIVERY DRIVER Infusion Department of Infusion Therapy in [address] [phone] Mari Noguera M.D. [address] [place] [phone] 04/13/2023 10:10 AM FREIGHT DELIVERY DRIVER Appointment Department of Laboratory Medicine in [address] [place] [address] Mari Noguera M.D. [address] [place] [phone] 04/14/2023 9:00 AM FREIGHT DELIVERY DRIVER Infusion Department of Infusion Therapy in [address] [phone] Mari Noguera M.D. [address] [place] [phone] documented as of this encounter Visit Diagnoses Not on filedocumented in this encounter Additional Health Concerns Infection Onset Date Last Indicated Resolved Time Protective Environment 06/03/2022 06/03/2022 documented as of this encounter Care Teams Microphone Boom Operator Relationship Specialty Start Date End Date Elsewhere, Pcp PCP - General Internal Medicine 04/01/22 documented as of this encounter
--- OUTSIDE RECORDS SUMMARY | 2023-03-08 08:56 | XMS_ITS | Encounter Summary ---
Author Name Unknown Organization [facility] Address [address] [place] [address] Care Team Providers Care Capacity Planning Engineer Name Role Phone Elsewhere, Pcp Primary Care Provider Unavailabl e Encounter Details Date Type Department Care Team (Latest Contact Info) Description 06/21/2022 3:13 PM CDT - 06/21/2022 11:59 PM CDT Hospital Encounter Department of Laboratory Medicine in [place], [place] [address] [place] [address] Mari Noguera M.D. [address] [place] [address] Multiple Myeloma In Remission (HCC) Discharge Disposition: Home or Self [...] How often do you attend chur or uatsdin services? 1 to 4 times per year 06/11/2021 Do you belong to any clubs o r organizations such as confucianism groups, unions, fraternal or athletic groups, or [...] Answer Date Recorded PHQ-2 Score 4 11/18/2021 [facility] of Occupat ional Health - [...] 60 tablet 11 12/01/2021 12/08/2022 RX WELCOME [id number] ONLY Welcome packet 1 each 0 04/26/2022 08/31/2022 documented as of this encounter Plan of Treatment Upcoming Encounters Date Type Department Care Team (Late st Contact Info) Description 03/16/2023 10:30 AM INSPECTOR FIREARMS Appointment Department of Laboratory Medicine in [address] [address] Mari Noguera M.D. [address] [place] [phone] 03/17/2023 8:40 AM INSPECTOR FIREARMS Office Visit Department of Oncology in [address] [phone] Mari Noguera M.D. [address] [place] [phone] 03/17/2023 9:45 AM INSPECTOR FIREARMS Infusion Department of Infusion Therapy in [address] [phone] Mari Noguera M.D. [address] [place] [phone] 03/31/2023 10:10 AM INSPECTOR FIREARMS Appointment Department of Laboratory Medicine in [address] [address] Mari Noguera M.D. [address] [place] [phone] 04/04/2023 8:20 AM INSPECTOR FIREARMS Office Visit Department of Oncology in [address] [phone] Mari Noguera M.D. [address] [place] [phone] 04/04/2023 9:00 AM INSPECTOR FIREARMS Infusion Department of Infusion Therapy in [address] [phone] Mari Noguera M.D. [address] [place] [phone] 04/13/2023 10:10 AM INSPECTOR FIREARMS Appointment Department of Laboratory Medicine in [address] [address] Mari Noguera M.D. [address] [place] [phone] 04/14/2023 9:00 AM INSPECTOR FIREARMS Infusion Department of Infusion Therapy in [address] [phone] Mari Noguera M.D. [address] [place] [phone] documented as of this encounter Procedures Procedure Name Priority Date/Time Associated Diagnosis Comments CBC WITH DIFFERENTIAL, B Routine 06/21/2022 4:11 PM CDT Multiple Myeloma In Remission (HCC) documented in this encounter Results * (ABNORMAL) CBC with Differential, Blood (06/21/2022 4:11 PM CDT) Hemoglobin 12.0 11.6 - 15.0 g/dL 06/21/2022 [...] ADD-ON [facility] [address] [address], [facility] [place] [address] [place] [phone] documented in this encounter Visit Diagnoses Diagnosis Multiple Myeloma In Remission (HCC) documented in this encounter Additional Health Concerns Infection Onset Date Last Indicated Resolved Time Protective Environment 06/03/2022 06/03/2022 documented as of this encounter Care Teams Capacity Planning Engineer Relationship Specialty Start Date End Date Elsewhere, Pcp PCP - General Internal Medicine 04/01/22 documented as of this encounter
--- OUTSIDE RECORDS SUMMARY | 2023-03-08 08:56 | XMS_ITS | Encounter Summary ---
Author Name Unknown Organization [facility] Address [address] [place] [address] Care Team Providers Care Mixer Slagman Name Role Phone Elsewhere, Pcp Primary Care Provider Unavailabl e Reason for Visit * Reason Comments Med Refill Encounter Details Date Type Department Care Team (Late st Contact Info) Description 06/28/2022 Refill Department of Oncology in [place], [place] [address] [place] [phone] Mari Noguera M.D. [address] [place] [address] Med Refill Social History Tobacco [...] week 06/11/2021 How often do you attend [facility] or caodaism services? 1 to 4 times per year 06/11/2021 Do you belong to any clubs o r organizations such as christian groups, unions, fraternal or athletic groups, or [...] 4 11/18/2021 [facility] of Occupat ionoh Health - Occupational Stress Questionnaire Answer Date [...] Info) Description 03/16/2023 10:30 AM DIRECTOR OF FIELD SALES Appointment Department of Laboratory Medicine in [place] [address] [place] [phone] Mari Noguera M.D. [address] [place] [phone] 03/17/2023 8:40 AM DIRECTOR OF FIELD SALES Office Visit Department of Oncology in [address] [place] [phone] Mari Noguera M.D. [address] [place] [phone] 03/17/2023 9:45 AM DIRECTOR OF FIELD SALES Infusion Department of Infusion Therapy in [address] [place] [address] Mari Noguera M.D. [address] [place] [phone] 03/31/2023 10:10 AM DIRECTOR OF FIELD SALES Appointment Department of Laboratory Medicine in [address] [phone] Mari Nougera M.D. [address] [place] [phone] 04/04/2023 8:20 AM DIRECTOR OF FIELD SALES Office Visit Department of Oncology in [address] [place] [address] Mari Noguera M.D. [address] [place] [phone] 04/04/2023 9:00 AM DIRECTOR OF FIELD SALES Infusion Department of Infusion Therapy in [address] [phone] Mari Noguera M.D. [address] [place] [phone] 04/13/2023 10:10 AM DIRECTOR OF FIELD SALES Appointment Department of Laboratory Medicine in [address] [phone] Mari Noguera M.D. [address] [place] [phone] 04/14/2023 9:00 AM DIRECTOR OF FIELD SALES Infusion Department of Infusion Therapy in [place], [place] [address] [place] [phone] Mari Noguera M.D. [address] [place] [phone] documented as of this encounter Visit Diagnoses Diagnosis Multiple Myeloma Not Having Achieved Remission (HCC) documented in this encounter Additional Health Concerns Infection Onset Date Last Indicated Resolved Time Protective Environment 06/03/2022 06/03/2022 documented as of this encounter Care Teams Mixer Slagman Relationship Specialty Start Date End Date Elsewhere, Pcp PCP - General Internal Medicine 04/01/22 documented as of this encounter
--- OUTSIDE RECORDS SUMMARY | 2023-03-08 08:56 | XMS_ITS | Encounter Summary ---
Author Name Unknown Organization [facility] Address [address] [place] [address] Care Team Providers Care Type Caster Name Role Phone Elsewhere, Pcp Primary [...] 17 total visits Mari Noguera M.D. [address] [place] [address] [facility] Region Referral ID Status Reason Start Date Expiration Date V isits Requested Visits Authorized [id number] Authorized 05/28/2021 02/27/2024 31 31 Encounter Details Date Type Department Care Team (Late st Contact Info) Description 07/08/2022 9:15 AM CDT Infusion Department of Infusion Therapy in [address] [phone] Mari Noguera M.D. [address] [place] [phone] Multiple Myeloma Not Having Achieved Remission (HCC) [...] 06/11/2021 How often do you attend [facility] or temple services? 1 to 4 times per year 06/11/2021 Do you belong to any clubs o r organizations such as lutheran groups, unions, fraternal or athletic groups, or [...] Answer Date Recorded PHQ-2 Score 4 11/18/2021 [facility] [place] of Occupat ional Health - Occupational Stress [...] st Contact Info) Description 03/16/2023 10:30 AM WAGON DRILLER Appointment Department of Laboratory Medicine in [address] [phone] Mari Noguera M.D. [address] [place] [phone] 03/17/2023 8:40 AM WAGON DRILLER Office Visit Department of Oncology in [address] [phone] Mari Noguera M.D. [address] [place] [phone] 03/17/2023 9:45 AM WAGON DRILLER Infusion Department of Infusion Therapy in [address] [phone] Mari Noguera M.D. [address] [place] [phone] 03/31/2023 10:10 AM WAGON DRILLER Appointment Department of Laboratory Medicine in [address] [phone] Mari Noguera M.D. [address] [place] [phone] 04/04/2023 8:20 AM WAGON DRILLER Office Visit Department of Oncology in [address] [phone] Mari Noguera M.D. [address] [place] [phone] 04/04/2023 9:00 AM WAGON DRILLER Infusion Department of Infusion Therapy in [address] [phone] Mari Noguera M.D. [address] [place] [phone] 04/13/2023 10:10 AM WAGON DRILLER Appointment Department of Laboratory Medicine in [address] [place] [phone] Mari Noguera M.D. [address] [place] [phone] 04/14/2023 9:00 AM WAGON DRILLER Infusion Department of Infusion Therapy in [address] [phone] Mari Noguera M.D. [address] [place] [phone] documented as of this encounter Visit Diagnoses [...] BSA from Measured weight), subcutaneous, Once, On Mon07/08/22 at 1015, For 1 dose, Rotate injection site. Given 07/08/2022 10:41 AM CDT 2.5 mg Left Upper Abdomen documented in this encounter Additional Health Concerns Infection Onset Date Last Indicated Resolved Time Protective Environment 06/03/2022 06/03/2022 documented as of this encounter Care Teams Type Caster Relationship Specialty Start Date End Date Elsewhere, Pcp PCP - General Internal Medicine 04/01/22 documented as of this encounter
--- OUTSIDE RECORDS SUMMARY | 2023-03-08 08:57 | XMS_ITS | Encounter Summary ---
Author Name Unknown [facility] Address [address] [place] [address] Care Team Providers Care Admitting Interviewer Name Role Phone Elsewhere, Pcp Primary Care Provider Unavailabl e Reason for Visit * Episode Based Medications (Routine) - Authorized Specialty Diagnoses / Procedures Referred By Guillermina zamora Referred To Contact Diagnoses Multiple Myeloma Not Having Achieved Remission (HCC) Procedures AK ONDANSETRON HCL INJECTION AK DARATUMUMAB, HYALURONIDASE AK BORTEZOMIB INJECTION 1,800 mg on Day 1, 8, 15, 22 for cycles 1 & 2, Day 1, 15 3-6, Day 1 for cycle 7 / 28 day cycles / 17 total visits Mari Noguera M.D. [address] [place] [address] [facility] Region Referral ID Status Reason Start Date Expiration Date V isits Requested Visits Authorized [id number] Authorized 05/28/2021 02/27/2024 31 31 Encounter Details Date Type Department Care Team (Latest Contact Info) Description 06/07/2022 1:02 PM CDT - 06/07/2022 11:59 PM CDT Hospital Encounter Department of Laboratory Medicine in [place], [place] [address] [place] [phone] Mari Noguera M.D. [address] [place] [address] Multiple Myeloma Not Having [...] week 06/11/2021 How often do you attend [facility] or mormon services? 1 to 4 times per year [...] Answer Date Recorded PHQ-2 Score 4 11/18/2021 [facility] - [...] 60 tablet 11 12/01/2021 12/08/2022 RX WELCOME [id number] ONLY Welcome packet 1 each 0 04/26/2022 08/31/2022 documented as of this encounter Plan of Treatment Upcoming Encounters Date Type Department Care Team (Late st Contact Info) Description 03/16/2023 10:30 AM PLAN REP Appointment Department of Laboratory Medicine in [place], [place] [address] [place] [phone] Mari Noguera M.D. [address] [place] [address] [place] [phone] 03/17/2023 8:40 AM PLAN REP Office Visit Department of Oncology in [place] [address] [place] [phone] Mari Noguera M.D. [facility] [place] [phone] 03/17/2023 9:45 AM PLAN REP Infusion Department of Infusion Therapy in [place] [address] [place] [address] Mari Noguera M.D. [facility] [place] [address] 03/31/2023 10:10 AM PLAN REP Appointment Department of Laboratory Medicine in [address] [address] Mari Noguera M.D. [facility] [place] [phone] 04/04/2023 8:20 AM PLAN REP Office Visit Department of Oncology in [place] [address] [place] [address] Mari Noguera M.D. [facility] [place] [phone] 04/04/2023 9:00 AM PLAN REP Infusion Department of Infusion Therapy in [address] [address] Mari Noguera M.D. [facility] [place] [phone] 04/13/2023 10:10 AM PLAN REP Appointment Department of Laboratory Medicine in [address] [address] Mari Noguera M.D. [address] [facility], [place] [address] 04/14/2023 9:00 AM PLAN REP Infusion Department of Infusion Therapy in [place], [place] [place] [address] Mari Noguera M.D. [address] [place] [address] documented as of this encounter Procedures Procedure Name Priority Date/Time Associated Diagnosis Comments CBC WITH DIFFERENTIAL, B Routine 06/07/2022 1:11 PM CDT Multiple Myeloma Not Having Achieved Remission (HCC) COMPREHENSIVE METABOLIC PANEL, S/P Routine 06/07/2022 1:11 PM CDT Multiple Myeloma Not Having Achieved Remission (HCC) documented in this encounter Results * (ABNORMAL) Comprehensive Metabolic Panel (06/07/2022 1:11 PM CDT) Potassium, P 4.4 3.6 - 5.2 mmol/L 06/07/2022 2:08 PM CDT [facility] Sodium, P 141 135 - 145 mmol/L 06/07/2022 2:08 PM CDT [facility] Chloride, P 102 98 - 107 mmol/L 06/07/2022 2:08 PM CDT [facility] Bicarbonate, P 29 22 - 29 mmol/L 06/07/2022 2:08 PM CDT [facility] Anion Gap, P 10 7 - 15 06/07/2022 2:08 PM CDT [facility] BUN (Blood Urea Nitrogen), P 18 6 - 21 mg/dL 06/07/2022 2:08 PM CDT [facility] Creatinine 1.02 0.59 - 1.04 mg/dL 06/07/2022 2:08 PM CDT [facility] Estimated GFR (eGFR) 58(L) >=60 mL/min/BS A 06/07/2022 2:08 PM CDT [facility] Comment: Estimated GFR calculated using the 2020 CKD_EPI creatinine equation. Calcium, Total, P 9.5 8.8 - 10.2 mg/dL 06/07/2022 2:08 PM CDT [facility] Glucose, P 139 70 - 140 mg/dL 06/07/2022 2:08 PM CDT [facility] Protein, Total, P 5.8(L) 6.3 - 7.9 g/dL 06/07/2022 2:08 PM CDT [facility] Albumin, P 3.9 3.5 - 5.0 g/dL 06/07/2022 2:08 PM CDT [facility] Aspartate Aminotransferase (AST), P 23 8 - 43 U/L 06/07/2022 2:08 PM CDT [facility] Alkaline Phosphatase, P 67 35 - 104 U/L 06/07/2022 2:08 PM CDT [facility] Alanine Aminotransferase (ALT), P 25 7 - 45 U/L 06/07/2022 2:08 PM CDT [facility] Bilirubin, Total, P 0.3 <=1.2 mg/dL 06/07/2022 2:08 PM CDT [facility] Blood (Blood, Venous) 06/07/2022 1:11 PM CDT 06/07/2022 1:11 PM CDT Mari Noguera M.D. LAB BLOOD ADD-ON [facility] [address] [place] [address], [facility] in [place] [address] [place] [phone] * (ABNORMAL) CBC with Differential, Blood (06/07/2022 1:11 PM CDT) Hemoglobin 11.3(L) 11.6 - 15.0 g/dL 06/07/2022 1:15 PM CDT [facility] Hematocrit 36.5 35.5 - 44.9 % 06/07/2022 1:15 PM CDT [facility] Erythrocytes 3.86(L) 3.92 - 5.13 x10(12)/L 06/07/2022 1:15 PM CDT [facility] MCV 94.6 78.2 - 97.9 fL 06/07/2022 1:15 PM CDT [facility] RBC Distrib Width 15.1 12.2 - 16.1 % 06/07/2022 1:15 PM CDT [facility] Platelet Count 130(L) 157 - 371 x10(9)/L 06/07/2022 1:15 PM CDT [facility] Leukocytes 4.6 3.4 - 9.6 x10(9)/L 06/07/2022 1:15 PM CDT [facility] Neutrophils 2.80 1.56 - 6.45 x10(9)/L 06/07/2022 1:15 PM CDT [facility] Lymphocytes 0.95 0.95 - 3.07 x10(9)/L 06/07/2022 1:15 PM CDT [facility] Monocytes 0.65 0.26 - 0.81 x10(9)/L 06/07/2022 1:15 PM CDT [facility] Eosinophils 0.12 0.03 - 0.48 x10(9)/L 06/07/2022 1:15 PM CDT [facility] Basophils 0.06 0.01 - 0.08 x10(9)/L 06/07/2022 1:15 PM CDT [facility] Blood (Blood, Venous) 06/07/2022 1:11 PM CDT 06/07/2022 1:11 PM CDT Mari Noguera M.D. LAB BLOOD ADD-ON [facility] [address] [place] [address], [facility] in [place] [address] [place] [address] documented in this encounter Visit Diagnoses Diagnosis Multiple Myeloma Not Having Achieved Remission (HCC) documented in this encounter Additional Health Concerns Infection Onset Date Last Indicated Resolved Time Protective Environment 06/03/2022 06/03/2022 documented as of this encounter Care Teams Admitting Interviewer Relationship Specialty Start Date End Date Elsewhere, Pcp PCP - General Internal Medicine 04/01/22 documented as of this encounter
--- OUTSIDE RECORDS SUMMARY | 2023-03-08 08:57 | XMS_ITS | Encounter Summary ---
Author Name Unknown Organization [facility] Address [address] [place] [address] Care Team Providers Care Professor Of Oceanography Name Role Phone Elsewhere, Pcp Primary Care [...] 17 total visits Mari Noguera M.D. [address] [place] [address] [facility] Region Referral ID Status Reason Start Date Expiration Date V isits Requested Visits Authorized [id number] Authorized 05/28/2021 02/27/2024 31 31 Encounter Details Date Type Department Care Team (Latest Contact Info) Description 05/20/2022 2:10 PM CDT - 05/20/2022 11:59 PM CDT Hospital Encounter Department of Laboratory Medicine in [place], [place] [address] [place] [phone] Mari Noguera M.D. [address] [place] [address] Multiple Myeloma Not Having Achieved [...] How often do you attend [facility] or episcopal services? 1 to 4 times per year [...] Answer Date Recorded PHQ-2 Score 4 11/18/2021 [facility] of Occupat ional Health - [...] place to sleep or slept in a alf (including now)? No 06/11/2021 Nutrition Answer Date [...] or open. 21 capsule 0 05/06/2022 08/31/2022 penicillin V potassium (VEETIDS) 500 mg tablet Take 1 tablet (500 mg total) by mouth 2 (two) times a day. 60 tablet 11 12/01/2021 12/08/2022 RX WELCOME [id number] ONLY Welcome packet 1 each 0 04/26/2022 08/31/2022 documented as of this encounter Plan of Treatment Upcoming Encounters Date Type Department Care Team (Late st Contact Info) Description 03/16/2023 10:30 AM GAS FLOW REGULATOR Appointment Department of Laboratory Medicine in [place] [address] [place] [phone] Mari Noguera M.D. [address] [place] [address] 03/17/2023 8:40 AM GAS FLOW REGULATOR Office Visit Department of Oncology in [place], [place] [phone] Mari Noguera M.D. [address] [place] [phone] 03/17/2023 9:45 AM GAS FLOW REGULATOR Infusion Department of Infusion Therapy in [address] [phone] Mari Noguera M.D. [address] [place] [phone] 03/31/2023 10:10 AM GAS FLOW REGULATOR Appointment Department of Laboratory Medicine in [address] [address] Mari Noguera M.D. [address] [place] [phone] 04/04/2023 8:20 AM GAS FLOW REGULATOR Office Visit Department of Oncology in [address] [phone] Mari Noguera M.D. [address] [place] [phone] 04/04/2023 9:00 AM GAS FLOW REGULATOR Infusion Department of Infusion Therapy in [address] [phone] Mari Noguera M.D. [address] [place] [phone] 04/13/2023 10:10 AM GAS FLOW REGULATOR Appointment Department of Laboratory Medicine in [address] [address] Mari Noguera M.D. [address] [place] [phone] 04/14/2023 9:00 AM GAS FLOW REGULATOR Infusion Department of Infusion Therapy in [address] [place] [phone] Mari Noguera M.D. 701 [facility] [place] [address] documented as of this encounter Procedures Procedure Name Priority Date/Time Associated Diagnosis Comments MONOCLONAL PROTEIN STUDY (MPSS), EXPANDED PANEL, S Routine 05/20/2022 2:22 PM CDT Multiple Myeloma Not Having Achieved Remission (HCC) CBC WITH DIFFERENTIAL, B Routine 05/20/2022 2:22 PM CDT Multiple Myeloma Not Having Achieved Remission (HCC) documented in this encounter Results * (ABNORMAL) CBC with Differential, Blood (05/20/2022 2:22 PM CDT) Hemoglobin 11.9 11.6 - 15.0 g/dL 05/20/2022 2:30 PM CDT [facility] Hematocrit 38.3 35.5 - 44.9 % 05/20/2022 2:30 PM CDT [facility] Erythrocytes 4.01 3.92 - 5.13 x10(12)/L 05/20/2022 2:30 PM CDT [facility] MCV 95.5 78.2 - 97.9 fL 05/20/2022 2:30 PM CDT [facility] RBC Distrib Width 14.5 12.2 - 16.1 % 05/20/2022 2:30 PM CDT [facility] Platelet Count 145(L) 157 - 371 x10(9)/L 05/20/2022 2:30 PM CDT [facility] Leukocytes 7.3 3.4 - 9.6 x10(9)/L 05/20/2022 2:30 PM CDT [facility] Neutrophils 5.39 1.56 - 6.45 x10(9)/L 05/20/2022 2:30 PM CDT [facility] Lymphocytes 1.08 0.95 - 3.07 x10(9)/L 05/20/2022 2:30 PM CDT [facility] Monocytes 0.51 0.26 - 0.81 x10(9)/L 05/20/2022 2:30 PM CDT [facility] Eosinophils 0.25 0.03 - 0.48 x10(9)/L 05/20/2022 2:30 PM CDT [facility] Basophils 0.03 0.01 - 0.08 x10(9)/L 05/20/2022 2:30 PM CDT [facility] Blood (Blood, Venous) 05/20/2022 2:22 PM CDT 05/20/2022 2:25 PM CDT Mari Noguera M.D. LAB BLOOD ADD-ON [facility] [address] [place] [address], [facility] R[facility] in [place] 701 [place] [address] * (ABNORMAL) Monoclonal Protein Study, Expanded Panel (05/20/2022 2:22 PM CDT) Total Protein, S 5.9(L) 6.3 - 7.9 g/dL 05/20/2022 9:34 PM CDT E[facility] Beaver Free Light Chain, S 0.7100 0.3300 - 1.94 mg/dL 05/23/2022 8:53 AM CDT ECL[facility] Lambda Free Light Chain, S 0.9200 0.5700 - 2.63 mg/dL 05/23/2022 8:53 AM CDT ECL[facility] Beaver/Lambda FLC Ratio 0.7717 0.2600 - 1.65 05/23/2022 8:53 AM CDT ECL[facility] Albumin 4.1 3.4 - 4.7 g/dL 05/24/2022 8:11 AM CDT ECLR Alpha-1 Globulin 0.2 0.1 - 0.3 g/dL 05/24/2022 8:11 AM CDT ECLR Alpha-2 Globulin 0.7 0.6 - 1.0 g/dL 05/24/2022 8:11 AM CDT ECLR Beta-Globulin 0.6(L) 0.7 - 1.2 g/dL 05/24/2022 8:11 AM CDT ECLR Gamma-Globulin 0.3(L) 0.6 - 1.6 g/dL 05/24/2022 8:11 AM CDT ECLR A/G Ratio 2.28 05/24/2022 8:11 AM CDT ECLR Impression Small abnormality in gamma fraction. Reviewed and interpreted by: ??Joon Palomares M.D. 05/24/2022 8:11 AM CDT ECLR Flag, Immunofixation Positive(A) Negative 05/24/2022 8:08 AM CDT ECLR Immunofixation Monoclonal IgG lambda. Small monoclonal IgM lambda within the gamma fraction. Reviewed and interpreted by: ??Joon Palomares M.D. 05/24/2022 8:08 AM CDT ECLR Blood (Blood, Venous) 05/20/2022 2:22 PM CDT 05/20/2022 9:09 PM CDT Narrative [facility] - 05/24/2022 8:11 AM CDT Specimen Information: Specimen ID: [id number] Specimen Type: Blood Specimen Collection Start Date: 05/20/2022 ??2:22 PM Specimen Received Date: 05/20/2022 ??9:09 PM Specimen ID: [id number] Specimen Type: Blood Specimen Collection Start Date: 05/20/2022 ??2:22 PM Specimen Received Date: 05/20/2022 ??9:09 PM Specimen ID: [id number] Specimen Type: Blood Specimen Collection Start Date: 05/20/2022 ??2:22 PM Specimen Received Date: 05/20/2022 ??9:09 PM Mari Noguera M.D. LAB BLOOD ADD-ON [facility] [address] [place] [address], [facility] ECLR [facility] in [address] [address] documented in this encounter Visit Diagnoses Diagnosis Multiple Myeloma Not Having Achieved Remission (HCC) documented in this encounter Care Teams Professor Of Oceanography Relationship Specialty Start Date End Date Elsewhere, Pcp PCP - General Internal Medicine 04/01/22 documented as of this encounter
--- OUTSIDE RECORDS SUMMARY | 2023-03-08 08:57 | XMS_ITS | Encounter Summary ---
Author Name Unknown Organization [facility] Address [address] [place] [address] Care Team Providers Care Registered Travel Nurse Name Role Phone Elsewhere, Pcp Primary Care Provider Unavailabl e Encounter Details Date Type Department Care Team (Latest Contact Info) Description 05/09/2022 Specialty Pharmacy [facility] [address] [place] [phone] Rachel Ruiz, Pharm.D., R.Ph. [address] [place] [address] Multiple Myeloma Not Having Achieved Remission (HCC) [...] How often do you attend chur or yazidi services? 1 to 4 times per year 06/11/2021 Do you belong to any clubs o r organizations such as pentecostal groups, unions, fraternal or athletic groups, or [...] Date Recorded PHQ-2 Score 4 11/18/2021 [facility] of Occupat ional Health [...] encounter Miscellaneous Notes * Telephone Encounter - Rachel Ruiz, Pharm.D. - 05/09/2022 10:29 AM CDT SUBJECTIVE REASON FOR VISIT Patient counseling and education, via telephone, for new hematology/oncology medication therapy andestablishing medication reassessment timeline. HISTORY OF PRESENT ILLNESS Ms. Keysha Melendez is a 76 y.o. female, who is followed by the specialty pharmacy service for Revlimid (lenalidomide) for multiple myeloma. Medications the Patient Reported Taking acyclovir (ZOVIRAX) 200 mg capsule (Taking) aspirin [address] tablet (Taking) atenoloL (TENORMIN) 50 mg tablet (Taking) cyanocobalamin (VITAMIN B12) 1,000 mcg tablet (Taking) escitalopram (LEXAPRO) 10 mg tablet (Taking) lenalidomide (REVLIMID) 10 mg capsule (Taking) lisinopriL (PRINIVIL,ZESTRIL) 40 mg tablet (Taking) loperamide (IMODIUM A-D) 2 mg capsule (Taking) LORazepam (ATIVAN) 0.5 mg tablet (Taking) magnesium chloride (SLOW-MAG) 71.[address] tablet (Taking) metFORMIN (GLUCOPHAGE) 500 mg tablet (Taking) omeprazole (PriLOSEC) [address] capsule (Taking) ondansetron (ZOFRAN) 8 mg tablet (Taking) penicillin V potassium (VEETIDS) 500 mg tablet (Taking) prochlorperazine (COMPAZINE) 10 mg tablet (Taking) OBJECTIVE Lab Results Component Value Date CREATININE 0.85 05/06/2022 EGFR 72 05/06/2022 ASSESSMENT / PLAN 1. Medication counseling/education I counseled the patient via phone. Education related to medication: Revlimid (lenalidomide): Dose/directions/cycle: Take 1 capsule (10 mg total) by mouth daily. Take on days 1 through 21 of cycle. Take whole with water. Do not break, chew, or open. Duration: Duration per tolerance/provider. Proper use: Take with or without food, and do not break, chew, or open capsules. If you miss a doseand it has been less than 12 hours since your regular time, take it as soon as you remember. If it has been more than 12 hours, just skip your missed dose. Timely administration/intake: pill box, smartphone application/calendar Storage/handling: room temperature storage, any unused capsules should be returned to the company. Also, per REMS program do not break, chew or open. Side effects: Including, but not limited to: Fatigue, rash, diarrhea or constipation, leg cramps, upper respiratory infections, and low white blood cells or platelets Other potential warnings/ safety precautions: defects, blood clots that can lead to heart attack/stroke, dizziness/fatigue, severe skin reactions, risk of new cancers, liver toxicity, thyroid disorders, tumor flare, tumor lysis, heart failure, kidney impairment, stem cell mobilization, and blood/sperm donation exclusion. Lifestyle and self-management skills/ Tips to prevent adverse drug reactions: Required REMS reproductive counseling performed. Important to have lab monitoring of white blood cells, platelets, and liver function tests. Important to be aware of signs/symptoms of blood clots, heart attack, and strokeand to seek medical attention immediately. Interactions (drug/food interactions): Drug interactions referenced in #2 below. Food: No special considerations Contraindications/ considerations: This medication may cause harm/severe defects. Women who can become must use effective contraception while on this medication. Femalesof child bearing potential must use two forms of contraception 4 weeks prior, during treatment, andfor 4 weeks after treatment. See PI for details on appropriate methods. Men with a partner that maybecome must use a latex or synthetic condom while on this medication, even if the patient has had a successful vasectomy. No donating sperm during therapy and for 1 month after stopping therapy. Educational resource/decision support tools: www.Goodreads.VeriWave and patient support programs on that site and [facility]. Patient/caregiver counseling was abreviated because the patient has been on this medication for some time already (was taking for 6 months pre-SCT and is now restarting for maintenance therapy). The above educational information available at patient/caregiver request. They were advised to contact the prescriber concerning symptoms or side effects as mentioned above. The importance of adherence tothe treatment plan was emphasized in regard to success of therapy. Allergy, past sensitivity, medication and health history considered at spiritual counselor (renal function if available). To optimize outcomes, patient assessed for the need of other possible supportive therapies and informed of importance of proper monitoring and future reassessment. The patient/caregiver's prior education on this new therapy and disease specific knowledge were assessed with counseling and education tailored to this level of understanding. Christianson concerns and questions were addressed. Patient specific considerations/desires/requests noted at spiritual counselor:None noted at this time. Patient is able to self-administer the medication(s). No social, environmental, functional or cognitive barriers are apparent. Patient is eligible for service through [facility]. Links to access additional resources (financial, community), pharmacy contact information and disposal information included in dispensed 'Welcome Packet' and/or printed materials provided with the prescription. The patient/caregiver was encouraged to ask questions or to call the specialty pharmacy with questions they may have after reviewing printed material. 2. Potential drug-drug interactions No clinically significant drug interactions were identified with Revlimid (lenalidomide) . Specialty medication(s) reconciled and good karen attempt made in obtaining a complete medication list. Patient encouraged to report any new or change of medications (prescribed/over the counter/supplements) to assist in maintaining this list for accuracy. 3. Goals of therapy and other expectations/outcomes: Optimize medication adherence. Evaluate/prevent drug-drug and drug-disease interactions. Minimize, prevent and/or manage side effects. Refer to 'Treatment Goal' in 'Treatment Plan Information' of [facility]. The patient has decided to use the [facility]. Follow-up: 1 month(s) Rachel Ruiz Pharm.D. documented in this encounter Plan of Treatment Upcoming Encounters Date Type Department Care Team (Late st Contact Info) Description 03/16/2023 10:30 AM VISUAL EDUCATION DIRECTOR Appointment Department of Laboratory Medicine in [address] [phone] Mari Noguera M.D. [address] [place] [phone] 03/17/2023 8:40 AM VISUAL EDUCATION DIRECTOR Office Visit Department of Oncology in [address] [phone] Mari Noguera M.D. [address] [place] [phone] 03/17/2023 9:45 AM VISUAL EDUCATION DIRECTOR Infusion Department of Infusion Therapy in [address] [phone] Mari Noguera M.D. [address] [place] [phone] 03/31/2023 10:10 AM VISUAL EDUCATION DIRECTOR Appointment Department of Laboratory Medicine in [address] [phone] Mari Noguera M.D. [address] [place] [phone] 04/04/2023 8:20 AM VISUAL EDUCATION DIRECTOR Office Visit Department of Oncology in [address] [phone] Mari Noguera M.D. [address] [place] [phone] 04/04/2023 9:00 AM VISUAL EDUCATION DIRECTOR Infusion Department of Infusion Therapy in [address] [phone] Mari Noguera M.D. [address] [place] [phone] 04/13/2023 10:10 AM VISUAL EDUCATION DIRECTOR Appointment Department of Laboratory Medicine in [address] [place] [address] Mari Noguera M.D. [address] [place] [phone] 04/14/2023 9:00 AM VISUAL EDUCATION DIRECTOR Infusion Department of Infusion Therapy in [address] [phone] Mari Noguera M.D. [address] [place] [phone] documented as of this encounter Visit Diagnoses Diagnosis Multiple Myeloma Not Having Achieved Remission (HCC)- Primary documented in this encounter Care Teams Registered Travel Nurse Relationship Specialty Start Date End Date Elsewhere, Pcp PCP - General Internal Medicine 04/01/22 documented as of this encounter
--- OUTSIDE RECORDS SUMMARY | 2023-03-08 08:57 | XMS_ITS | Encounter Summary ---
Author Name Unknown Organization [facility] Address [address] [place] [address] Care Team Providers Care Oyster Picker Name Role Phone Elsewhere, Pcp Primary Care Provider Unavailabl e Encounter Details Date Type Department Care Team (Late st Contact Info) Description 06/06/2022 Orders Only Department of Oncology in [place], [place] [address] [place] [phone] Anna Rosa RAbrahamNAbraham [address] [place] [address] Social History Tobacco Use Types Packs/Day Years [...] How often do you attend chur or confucianism services? 1 to 4 times per year [...] Answer Date Recorded PHQ-2 Score 4 11/18/2021 [facility] of Occupat ional Health - [...] st Contact Info) Description 03/16/2023 10:30 AM DRUM SEALER Appointment Department of Laboratory Medicine in [address] [place] [phone] Mari Noguera M.D. [address] [place] [phone] 03/17/2023 8:40 AM DRUM SEALER Office Visit Department of Oncology in [address] [place] [phone] Mari Noguera M.D. [address] [place] [phone] 03/17/2023 9:45 AM DRUM SEALER Infusion Department of Infusion Therapy in [address] [place] [address] Mari Noguera M.D. [address] [place] [phone] 03/31/2023 10:10 AM DRUM SEALER Appointment Department of Laboratory Medicine in [address] [phone] Mari Noguera M.D. [address] [place] [phone] 04/04/2023 8:20 AM DRUM SEALER Office Visit Department of Oncology in [address] [place] [address] Mari Noguera M.D. [address] [place] [phone] 04/04/2023 9:00 AM DRUM SEALER Infusion Department of Infusion Therapy in [address] [phone] Mari Noguera M.D. [address] [place] [phone] 04/13/2023 10:10 AM DRUM SEALER Appointment Department of Laboratory Medicine in [address] [place] [address] Mari Noguera M.D. [address] [place] [phone] 04/14/2023 9:00 AM DRUM SEALER Infusion Department of Infusion Therapy in [place], [place] [address] [place] [phone] Mari Noguera M.D. [address] [place] [phone] documented as of this encounter Visit Diagnoses Not on filedocumented in this encounter Additional Health Concerns Infection Onset Date Last Indicated Resolved Time Protective Environment 06/03/2022 06/03/2022 documented as of this encounter Care Teams Oyster Picker Relationship Specialty Start Date End Date Elsewhere, Pcp PCP - General Internal Medicine 04/01/22 documented as of this encounter
--- OUTSIDE RECORDS SUMMARY | 2023-03-08 08:57 | XMS_ITS | Encounter Summary ---
Author Name Unknown Organization [facility] Address [address] [place] [address] Care Team Providers Care Forest Supervisor Name Role Phone Elsewhere, Pcp Primary Care Provider Unavailabl e Reason for Visit * Reason Comments Med Refill Encounter Details Date Type Department Care Team (Late st Contact Info) Description 05/27/2022 Refill Department of Oncology in [place], [place] [address] [place] [phone] Mari Noguera M.D. [address] [place] [phone] Med Refill Social History Tobacco [...] week 06/11/2021 How often do you attend [facility] or mormon services? 1 to 4 times [...] 11/18/2021 [facility] of Occupat ionut Health - Occupational Stress Questionnaire Answer Date [...] st Contact Info) Description 03/16/2023 10:30 AM HAND STRIPER Appointment Department of Laboratory Medicine in [place] [address] [place] [phone] Mari Noguera M.D. [address] [place] [phone] 03/17/2023 8:40 AM HAND STRIPER Office Visit Department of Oncology in [address] [place] [phone] Mari Noguera M.D. [address] [place] [phone] 03/17/2023 9:45 AM HAND STRIPER Infusion Department of Infusion Therapy in [address] [place] [address] Mari Noguera M.D. [address] [place] [phone] 03/31/2023 10:10 AM HAND STRIPER Appointment Department of Laboratory Medicine in [address] [phone] Mari Noguera M.D. [address] [place] [phone] 04/04/2023 8:20 AM HAND STRIPER Office Visit Department of Oncology in [address] [place] [address] Mari Noguera M.D. [address] [place] [phone] 04/04/2023 9:00 AM HAND STRIPER Infusion Department of Infusion Therapy in [address] [phone] Mari Noguera M.D. [address] [place] [phone] 04/13/2023 10:10 AM HAND STRIPER Appointment Department of Laboratory Medicine in [address] [phone] Mari Noguera M.D. [address] [place] [phone] 04/14/2023 9:00 AM HAND STRIPER Infusion Department of Infusion Therapy in [place], [place] [address] [place] [phone] Mari Noguera M.D. [address] [place] [phone] documented as of this encounter Visit Diagnoses Diagnosis Multiple Myeloma Not Having Achieved Remission (HCC) documented in this encounter Care Teams Forest Supervisor Relationship Specialty Start Date End Date Elsewhere, Pcp PCP - General Internal Medicine 04/01/22 documented as of this encounter
--- OUTSIDE RECORDS SUMMARY | 2023-03-08 08:57 | XMS_ITS | Encounter Summary ---
Author Name Unknown Organization [facility] Address [address] [place] [address] Care Team Providers Care Respiratory Care Instructor Name Role Phone Elsewhere, Pcp Primary Care [...] 17 total visits Mari Noguera M.D. [address] [place] [address] [facility] Region Referral ID Status Reason Start Date Expiration Date V isits Requested Visits Authorized [id number] Authorized 05/28/2021 02/27/2024 31 31 Encounter Details Date Type Department Care Team (Latest Contact Info) Description 05/06/2022 1:42 PM TITLE ABSTRACTOR - 05/06/2022 11:59 PM TITLE ABSTRACTOR Hospital Encounter Department of Laboratory Medicine in [place], [place] [address] [place] [phone] Mari Noguera M.D. [address] [place] [phone] Multiple Myeloma Not Having Achieved [...] How often do you attend chur or protestant services? 1 to 4 times [...] Answer Date Recorded PHQ-2 Score 4 11/18/2021 [facility] of Occupat ional Health - [...] 60 tablet 11 12/01/2021 12/08/2022 RX WELCOME [id number] ONLY Welcome packet 1 each 0 04/26/2022 08/31/2022 documented as of this encounter Plan of Treatment Upcoming Encounters Date Type Department Care Team (Late st Contact Info) Description 03/16/2023 10:30 AM TITLE ABSTRACTOR Appointment Department of Laboratory Medicine in [place] [address] [place] [address] Mari [place] [phone] 03/17/2023 8:40 AM TITLE ABSTRACTOR Office Visit Department of Oncology in [address] [place] [phone] Noguera, Mari, M.D. [address] [place] [phone] 03/17/2023 9:45 AM TITLE ABSTRACTOR Infusion Department of Infusion Therapy in [place] [address] [place] [address] Mari Noguera M.D. [address] [place] [phone] 03/31/2023 10:10 AM TITLE ABSTRACTOR Appointment Department of Laboratory Medicine in [address] [address] Mari Noguera M.D. [address] [place] [phone] 04/04/2023 8:20 AM TITLE ABSTRACTOR Office Visit Department of Oncology in [address] [phone] Mari Noguera M.D. [address] [place] [phone] 04/04/2023 9:00 AM TITLE ABSTRACTOR Infusion Department of Infusion Therapy in [address] [phone] Mari Noguera M.D. [address] [place] [phone] 04/13/2023 10:10 AM TITLE ABSTRACTOR Appointment Department of Laboratory Medicine in [address] [address] Mari Noguera M.D. [address] [place] [phone] 04/14/2023 9:00 AM TITLE ABSTRACTOR Infusion Department of Infusion Therapy in [address] [phone] Mari Noguera M.D. [address] [place] [phone] documented as of this encounter Procedures Procedure Name Priority Date/Time Associated Diagnosis Comments CBC WITH DIFFERENTIAL, B Routine 05/06/2022 1:56 PM TITLE ABSTRACTOR Multiple Myeloma Not Having Achieved Remission (HCC) COMPREHENSIVE METABOLIC PANEL, S/P Routine 05/06/2022 1:56 PM TITLE ABSTRACTOR Multiple Myeloma Not Having Achieved Remission (HCC) documented in this encounter Results * (ABNORMAL) Comprehensive Metabolic Panel (05/06/2022 1:56 PM TITLE ABSTRACTOR) Potassium, P 4.3 3.6 - 5.2 mmol/L 05/06/2022 2:20 PM TITLE ABSTRACTOR RDW[facility] Sodium, P 140 135 - 145 mmol/L 05/06/2022 2:20 PM TITLE ABSTRACTOR [facility] Chloride, P 101 98 - 107 mmol/L 05/06/2022 2:20 PM TITLE ABSTRACTOR [facility] Bicarbonate, P 30(H) 22 - 29 mmol/L 05/06/2022 2:20 PM TITLE ABSTRACTOR [facility] Anion Gap, P 9 7 - 15 05/06/2022 2:20 PM TITLE ABSTRACTOR [facility] BUN (Blood Urea Nitrogen), P 17 6 - 21 mg/dL 05/06/2022 2:20 PM TITLE ABSTRACTOR [facility] Creatinine 0.85 0.59 - 1.04 mg/dL 05/06/2022 2:20 PM TITLE ABSTRACTOR [facility] Estimated GFR (eGFR) 72 >=60 mL/min/BS A 05/06/2022 2:20 PM TITLE ABSTRACTOR R[facility] Comment: Estimated GFR calculated using the 2020 CKD_EPI creatinine equation. Calcium, Total, P 10.0 8.8 - 10.2 mg/dL 05/06/2022 2:20 PM TITLE ABSTRACTOR RDW[facility] Glucose, P 87 70 - 140 mg/dL 05/06/2022 2:20 PM TITLE ABSTRACTOR [facility] Protein, Total, P 6.7 6.3 - 7.9 g/dL 05/06/2022 2:20 PM TITLE ABSTRACTOR R[facility] Albumin, P 4.2 3.5 - 5.0 g/dL 05/06/2022 2:20 PM TITLE ABSTRACTOR [facility] Aspartate Aminotransferase (AST), P 20 8 - 43 U/L 05/06/2022 2:20 PM TITLE ABSTRACTOR R[facility] Alkaline Phosphatase, P 81 35 - 104 U/L 05/06/2022 2:20 PM TITLE ABSTRACTOR [facility] Alanine Aminotransferase (ALT), P 15 7 - 45 U/L 05/06/2022 2:20 PM TITLE ABSTRACTOR [facility] Bilirubin, Total, P 0.3 <=1.2 mg/dL 05/06/2022 2:20 PM TITLE ABSTRACTOR R[facility] Blood (Blood, Venous) 05/06/2022 1:56 PM TITLE ABSTRACTOR 05/06/2022 1:57 PM TITLE ABSTRACTOR Mari Noguera M.D. LAB BLOOD ADD-ON [facility] [address] [facility] [place] [address], [facility] [employer] in [place] [address] [place] [phone] * CBC with Differential, Blood (05/06/2022 1:56 PM TITLE ABSTRACTOR) Hemoglobin 12.9 11.6 - 15.0 g/dL 05/06/2022 2:04 PM TITLE ABSTRACTOR [facility] Hematocrit 41.4 35.5 - 44.9 % 05/06/2022 2:04 PM TITLE ABSTRACTOR [facility] Erythrocytes 4.43 3.92 - 5.13 x10(12)/L 05/06/2022 2:04 PM TITLE ABSTRACTOR [facility] MCV 93.5 78.2 - 97.9 fL 05/06/2022 2:04 PM TITLE ABSTRACTOR [facility] RBC Distrib Width 14.3 12.2 - 16.1 % 05/06/2022 2:04 PM TITLE ABSTRACTOR [facility] Platelet Count 202 157 - 371 x10(9)/L 05/06/2022 2:04 PM TITLE ABSTRACTOR [facility] Leukocytes 6.8 3.4 - 9.6 x10(9)/L 05/06/2022 2:04 PM TITLE ABSTRACTOR [facility] Neutrophils 4.77 1.56 - 6.45 x10(9)/L 05/06/2022 2:04 PM TITLE ABSTRACTOR [facility] Lymphocytes 1.24 0.95 - 3.07 x10(9)/L 05/06/2022 2:04 PM TITLE ABSTRACTOR [facility] Monocytes 0.65 0.26 - 0.81 x10(9)/L 05/06/2022 2:04 PM TITLE ABSTRACTOR [facility] Eosinophils 0.14 0.03 - 0.48 x10(9)/L 05/06/2022 2:04 PM TITLE ABSTRACTOR [facility]DW[facility] Basophils <0.03 0.01 - 0.08 x10(9)/L 05/06/2022 2:04 PM TITLE ABSTRACTOR [facility] Blood (Blood, Venous) 05/06/2022 1:56 PM TITLE ABSTRACTOR 05/06/2022 1:56 PM TITLE ABSTRACTOR Mari Noguera M.D. LAB BLOOD ADD-ON [facility] [address] [place] [address], [facility] [employer] in [place] [address] [place] [phone] documented in this encounter Visit Diagnoses Diagnosis Multiple Myeloma Not Having Achieved Remission (HCC) documented in this encounter Care Teams Respiratory Care Instructor Relationship Specialty Start Date End Date Elsewhere, Pcp PCP - General Internal Medicine 04/01/22 documented as of this encounter
--- OUTSIDE RECORDS SUMMARY | 2023-03-08 08:57 | XMS_ITS | Encounter Summary ---
Author Name Unknown Organization [facility] Address [address] [place] [address] Care Team Providers Care Telephone Messenger Name Role Phone Elsewhere, Pcp Primary Care Provider Unavailabl e Reason for Referral * Outpatient (Routine) Specialty Diagnoses / Procedures Referred By Guillermina zamora Referred To Contact Hematology Oncology Mari Noguera M.D. [address] [place] [phone] [facility] Region Referral ID Status Reason Start Date Expiration Date Visits Re quested Visits Authorized UTED TOMOGRAPHY TECHNOLOGIST Reason for Visit * Reason Comments Follow-up [...] / 17 total visits Mari Noguera M.D. [address] [place] [phone] [facility] Region Referral ID Status Reason Start Date Expiration Date V isits Requested Visits Authorized [id number] Authorized 05/28/2021 02/27/2024 31 31 Encounter Details Date Type Department Care Team (Late st Contact Info) Description 05/06/2022 3:00 PM COMPUTED TOMOGRAPHY TECHNOLOGIST Office Visit Department of Oncology in [place], [place] [address] [place] [address] Mari Nogeura M.D. [address] [place] [phone] Multiple Myeloma Not Having Achieved Remission (HCC) [...] often do you attend chur ch or mandaen services? 1 to 4 times [...] Answer Date Recorded PHQ-2 Score 4 11/18/2021 [facility] of Occupat ional Health - Occupational Stress [...] Sign Reading Time Taken Comments Blood Pressure 150/72 05/06/2022 2:46 PM COMPUTED TOMOGRAPHY TECHNOLOGIST Pulse 55 05/06/2022 2:41 PM COMPUTED TOMOGRAPHY TECHNOLOGIST Temperature 36.6 ??C (97.9 ??F) 05/06/2022 2:41 PM CS T Respiratory Rate - - Oxygen Saturation 94% 05/06/2022 2:41 PM COMPUTED TOMOGRAPHY TECHNOLOGIST Inhaled Oxygen Concentration - - Weight 84 kg (185 lb 3 oz) 05/06/2022 2:41 PM CS T Height - - Body Mass Index 34.52 12/10/2021 1:49 PM CDT documented in this encounter Progress Notes * Mari Noguera M.D. - 05/06/2022 3:00 PM CST SUBJECTIVE PRIMARY CARE PHYSICIAN ELSEWHERE, PCP [...] chains: kappa: 8.01 mg/L; lambda: 33.64 mg/L; Trail Side:Lambda Ratio: 0.24 SPEP: M-spike: 3.26 g/dL Immunofixation: [...] Start Date: 04/08/2022 INTERIM HISTORY is seen briefly today to reassess clinical status prior to starting maintenance Revlimid/Velcade in the post ASCT setting. Overall she has been feeling quite well. Her energy level has recovered nicely. She is eating and drinking well. She has been enrolled on to the REMs program for her Revlimid, recently obtained financial assistance for her elevated co-pay. ECOG performance status of 1. REVIEW OF SYSTEMS Gastrointestinal: Positive for diarrhea. The following systems were negative: Constitutional, Skin, Eyes, ENT, Respiratory, Cardiovascular, Genitourinary, Hematologic, Musculoskeletal, Neurological, Psychiatric PHYSICAL EXAM Vitals reviewed. LABORATORY DATA Recent Results (from the past 336 hour(s)) CBC with Differential, Blood Collection Time: 05/06/22 1:56 PM Result Value Ref Range Hemoglobin 12.9 11.6 - 15.0 g/dL Hematocrit 41.4 35.5 - 44.9 % Erythrocytes 4.43 3.92 - 5.13 x10(12)/L MCV 93.5 78.2 - 97.9 fL RBC Distrib Width 14.3 12.2 - 16.1 % Platelet Count 202 157 - 371 x10(9)/L Leukocytes 6.8 3.4 - 9.6 x10(9)/L Neutrophils 4.77 1.56 - 6.45 x10(9)/L Lymphocytes 1.24 0.95 - 3.07 x10(9)/L Monocytes 0.65 0.26 - 0.81 x10(9)/L Eosinophils 0.14 0.03 - 0.48 x10(9)/L Basophils <0.03 0.01 - 0.08 x10(9)/L Comprehensive Metabolic Panel Collection Time: 05/06/22 1:56 PM Result Value Ref Range Potassium, P 4.3 3.6 - 5.2 mmol/L Sodium, P 140 135 - 145 mmol/L Chloride, P 101 98 - 107 mmol/L Bicarbonate, P 30 (H) 22 - 29 mmol/L Anion Gap, P 9 7 - 15 BUN (Blood Urea Nitrogen), P 17 6 - 21 mg/dL Creatinine 0.85 0.59 - 1.04 mg/dL Estimated GFR (eGFR) 72 >=60 mL/min/BSA Calcium, Total, P 10.0 8.8 - 10.2 mg/dL Glucose, P 87 70 - 140 mg/dL Protein, Total, P 6.7 6.3 - 7.9 g/dL Albumin, P 4.2 3.5 - 5.0 g/dL Aspartate Aminotransferase (AST), P 20 8 - 43 U/L Alkaline Phosphatase, P 81 35 - 104 U/L Alanine Aminotransferase (ALT), P 15 7 - 45 U/L Bilirubin, Total, P 0.3 <=1.2 mg/dL RADIOLOGICAL DATA No results found. ASSESSMENT / PLAN #1 Multiple Myeloma In Remission, high risk IgG lambda with VGPR post ASCT day 0 12/02/2021 ([facility]) Ms. Treadwell will continue maintenance therapy with every other week bortezomib 1.3 mg/m2 and lenalidomide 10 mg 21 of 28 days, cycle #2 today. Myeloma indices were not drawn prior to her visit today, we will draw them when she returns in 2 weeks. Follow-up in 4 weeks. Post transplant immunizations: She has already received the flu vaccine. She can begin COVID vaccinations this month, she will do this through her primary care provider. She was seen in the immunization Clinic and they have given her the schedule of re vaccinations beginning approximately 6 months after transplant which she will also pursue through primary care. She and her family understand thatshe can not receive any live vaccines at this time. Antibiotic prophylaxis: She should continue with Pen VK and acyclovir. Pen VK can be stopped at 1 year post transplant. PJP prophylaxis with bactrim should continue through day 100 from a transplant perspective, howevercan consider continuing during maintenance therapy as well. Continue acyclovir while on bortezomib until 3 [...] in the perioperative period. Mari Noguera M.D. UTED TOMOGRAPHY TECHNOLOGIST documented in this encounter Plan of Treatment Upcoming Encounters Date Type Department Care Team (Late st Contact Info) Description 03/16/2023 10:30 AM COMPUTED TOMOGRAPHY TECHNOLOGIST Appointment Department of Laboratory Medicine in [address] [phone] Mari Noguera M.D. [address] [place] [phone] 03/17/2023 8:40 AM COMPUTED TOMOGRAPHY TECHNOLOGIST Office Visit Department of Oncology in [address] [place] [phone] Mari Noguera M.D. [address] [place] [phone] 03/17/2023 9:45 AM COMPUTED TOMOGRAPHY TECHNOLOGIST Infusion Department of Infusion Therapy in [address] [phone] Mari Noguera M.D. [address] [place] [phone] 03/31/2023 10:10 AM COMPUTED TOMOGRAPHY TECHNOLOGIST Appointment Department of Laboratory Medicine in [address] [phone] Mari Noguera M.D. [address] [place] [phone] 04/04/2023 8:20 AM COMPUTED TOMOGRAPHY TECHNOLOGIST Office Visit Department of Oncology in [address] [place] [address] Mari Noguera M.D. [address] [place] [phone] 04/04/2023 9:00 AM COMPUTED TOMOGRAPHY TECHNOLOGIST Infusion Department of Infusion Therapy in [address] [address] Mari Noguera M.D. [address] [place] [phone] 04/13/2023 10:10 AM COMPUTED TOMOGRAPHY TECHNOLOGIST Appointment Department of Laboratory Medicine in [address] [phone] Mari Noguera M.D. [address] [place] [phone] 04/14/2023 9:00 AM COMPUTED TOMOGRAPHY TECHNOLOGIST Infusion Department of Infusion Therapy in [place], [place] [address] [place] [address] Mari Noguera M.D. [address] [place] [phone] Scheduled Referrals Name Type Priority Associated Diagnoses Order Schedule Hematology office visit (clinic) [facility] Region; Pre-Chemo Outpatient Referral Routine Multiple Myeloma Not Having Achieved Remission (HCC) Expected: 05/31/2022, Expires: 06/01/2023 documented as of this encounter Results * [...] Noguera M.D. LAB BLOOD ADD-ON [facility] [address] [place] [address], [facility] in [place] [address] [place] [address] * (ABNORMAL) CBC with Differential, Blood (06/07/2022 [...] Noguera M.D. LAB BLOOD ADD-ON [facility] [address] [place] [address], [facility] R[facility] [place] [address] [place] [phone] * (ABNORMAL) CBC with Differential, Blood (05/20/2022 [...] Noguera M.D. LAB BLOOD ADD-ON [facility] [address] [place] [address], [facility] R[facility] [place] [address] [place] [phone] * (ABNORMAL) Monoclonal Protein Study, Expanded Panel (05/20/2022 2:22 PM CDT) Total Protein, S 5.9(L) 6.3 - 7.9 g/dL 05/20/2022 9:[address] Side Free Light Chain, S 0.7100 0.3300 - 1.94 mg/dL 05/23/2022 8:53 AM CDT ECLR Lambda Free Light Chain, S 0.9200 0.5700 - 2.63 mg/dL 05/23/2022 8:[address] Side/Lambda FLC Ratio 0.7717 0.2600 - 1.65 05/23/2022 [...] 2:22 PM CDT 05/20/2022 9:09 PM CDT [facility] - 05/24/2022 8:11 AM CDT Specimen Information: Specimen ID: [id number] Specimen Type: Blood Specimen Collection Start Date: 05/20/2022 ??2:22 PM Specimen Received Date: 05/20/2022 ??9:09 PM Specimen ID: [id number] Specimen Type: Blood Specimen Collection Start Date: 05/20/2022 ??2:22 PM Specimen Received Date: 05/20/2022 ??9:09 PM Specimen ID: [id number] Specimen Type: Blood Specimen Collection Start Date: 05/20/2022 ??2:22 PM Specimen Received Date: 05/20/2022 ??9:09 PM Mari Noguera M.D. LAB BLOOD ADD-ON [facility] [address] [place] [address], [facility] ECLR [facility] [place] [address] documented in this encounter Visit Diagnoses Diagnosis Multiple Myeloma Not Having Achieved Remission (HCC)- Primary Multiple Myeloma Not Having Achieved Remission (HCC) documented in this encounter Care Teams Telephone Messenger Relationship Specialty Start Date End Date Elsewhere, Pcp PCP - General Internal Medicine 04/01/22 documented as of this encounter
--- OUTSIDE RECORDS SUMMARY | 2023-03-08 08:57 | XMS_ITS | Encounter Summary ---
Author Name Unknown Organization [facility] Address [address] [place] [address] Care Team Providers Care Ocean Freight Manager Name Role Phone Elsewhere, Pcp Primary Care Provider Unavailabl e Reason for Referral * Outpatient (Routine) Specialty Diagnoses / Procedures Referred By Guillermina zamora Referred To Contact Hematology Oncology Mari Noguera M.D. [address] [place] [phone] [facility] Region [...] / 17 total visits Mari Noguera M.D. [address] [place] [phone] [facility] Region Referral ID Status Reason Start Date Expiration Date V isits Requested Visits Authorized [id number] Authorized 05/28/2021 02/27/2024 31 31 Encounter Details Date Type Department Care Team (Late st Contact Info) Description 06/07/2022 2:40 PM CDT Office Visit Department of Oncology in [place], [place] [address] [place] [address] Mari Noguera M.D. [address] [place] [phone] Multiple Myeloma Not Having Achieved [...] often do you attend chur ch or caodaism services? 1 to 4 times per year 06/11/2021 Do you belong to any clubs o r organizations such as congregation groups, unions, fraternal or athletic groups, or [...] Sign Reading Time Taken Comments Blood Pressure 132/63 06/07/2022 3:10 PM CDT Pulse 51 06/07/2022 3:01 PM CDT Temperature 36.6 ??C (97.9 ??F) 06/07/2022 3:01 PM CD T Respiratory Rate - - Oxygen Saturation 96% 06/07/2022 3:01 PM CDT Inhaled Oxygen Concentration - - Weight 87.1 kg (192 lb 0.3 oz) 06/07/2022 3:01 P M CDT Height - - Body Mass Index 35.79 12/10/2021 1:49 PM CDT documented in this encounter Progress Notes * Mari Noguera M.D. - 06/07/2022 2:40 PM CDT SUBJECTIVE PRIMARY CARE PHYSICIAN ELSEWHERE, [...] chains: kappa: 8.01 mg/L; lambda: 33.64 mg/L; [place]:Lambda Ratio: 0.24 SPEP: M-spike: 3.26 g/dL Immunofixation: [...] is seen to reassess prior to cycle 2 of maintenance Revlimid/Velcade in the post ASCT setting. Overall she has been feeling quite well. Her energy level has been excellent, she has been walking more, using her walker due to baseline poor balance. She has participated in physical therapyfor her right knee osteoarthritis and her mobility has improved. She is eating and drinking well. She has been receiving meals at home through [employer] which she thoroughly enjoys. Pain today is rated at 2 in her right knee. She has not had any intercurrent infections. ECOG performance status of 2. No peripheral neuropathy. She had an isolated 2-3 days of diarrhea after eating a greasy meal, otherwise no GI toxicities. REVIEW OF SYSTEMS Gastrointestinal: Positive for diarrhea. The following systems were negative: Constitutional, Skin, Eyes, ENT, Respiratory, Cardiovascular, Genitourinary, Hematologic, Musculoskeletal, Neurological, Psychiatric PHYSICAL EXAM Vitals reviewed. LABORATORY DATA Reviewed RADIOLOGICAL DATA No results found. ASSESSMENT / PLAN #1 Multiple Myeloma In Remission, high risk IgG lambda with VGPR post ASCT day 0 12/02/2021 ([facility]) Ms. Treadwell will continue maintenance therapy with every other week bortezomib 1.3 mg/m2 and lenalidomide 10 mg 21 of 28 days, cycle #2 today. Myeloma indices drawn prior to her visit today, serum free light chains are within normal limits, persistently positive serum immunofixation with no M spike.Follow-up in 1 month. She requests treatments to be transitioned to Fridays. Post transplant immunizations: She has already received [...] st Contact Info) Description 03/16/2023 10:30 AM RETAIL PHARMACIST Appointment Department of Laboratory Medicine in [place], [place] [address] [place] [address] Mari Noguera M.D. [address] [place] [phone] 03/17/2023 8:40 AM RETAIL PHARMACIST Office Visit Department of Oncology in [address] [place] [address] Mari Noguera M.D. [address] [place] [phone] 03/17/2023 9:45 AM RETAIL PHARMACIST Infusion Department of Infusion Therapy in [address] [phone] Mari Noguera M.D. [address] [place] [phone] 03/31/2023 10:10 AM RETAIL PHARMACIST Appointment Department of Laboratory Medicine in [place], [place] [address] [place] [address] Mari Nogurea M.D. [address] [place] [phone] 04/04/2023 8:20 AM RETAIL PHARMACIST Office Visit Department of Oncology in [address] [phone] Mari Noguera M.D. [address] [place] [phone] 04/04/2023 9:00 AM RETAIL PHARMACIST Infusion Department of Infusion Therapy in [address] [place] [address] Mari Noguera M.D. [address] [place] [phone] 04/13/2023 10:10 AM RETAIL PHARMACIST Appointment Department of Laboratory Medicine in [place] [address] [place] [phone] Mari Noguera M.D. [address] [place] [phone] 04/14/2023 9:00 AM RETAIL PHARMACIST Infusion Department of Infusion Therapy in [address] [phone] Mari Noguera M.D. [address] [place] [phone] Scheduled Referrals Name Type Priority Associated Diagnoses Order Schedule Hematology office visit (clinic) [facility] Region; Pre-Chemo Outpatient Referral Routine Multiple Myeloma Not Having Achieved Remission (HCC) Expected: 07/08/2022, Expires: 07/09/2023 documented as of this encounter Results * (ABNORMAL) Monoclonal Protein Study, Expanded Panel (06/21/2022 2:11 PM CDT) Total Protein, S 5.9(L) 6.3 - 7.9 g/dL 06/21/2022 9:46 PM CDT ECLR Lopeno Free Light Chain, S 0.8300 0.3300 - 1.94 mg/dL 06/22/2022 8:27 AM CDT ECLR Lambda Free Light Chain, S 1.22 0.5700 - 2.63 mg/dL 06/22/2022 8:27 AM CDT ECLR Lopeno/Lambda FLC Ratio 0.6803 0.2600 - 1.65 06/22/2022 [...] PM CDT 06/21/2022 9:25 PM CDT Narrative [facility] - 06/22/2022 2:20 PM CDT Specimen Information: Specimen ID: [id number] Specimen Type: Blood Specimen Collection Start Date: 06/21/2022 ??2:16 PM Specimen Received Date: 06/21/2022 ??9:25 PM Specimen ID: [id number] Specimen Type: Blood Specimen Collection Start Date: 06/21/2022 ??2:16 PM Specimen Received Date: 06/21/2022 ??9:25 PM Specimen ID: [id number] Specimen Type: Blood Specimen Collection Start Date: 06/21/2022 ??2:11 PM Specimen Received Date: 06/21/2022 ??9:25 PM Mari Noguera M.D. LAB BLOOD ADD-ON [facility] [address] [place] [id number], [facility] ECLR [facility] in [place] [address] [place] [address] ECLR [address] [facility] [address] [place] [address] documented in this encounter Visit Diagnoses Diagnosis Multiple Myeloma Not Having Achieved Remission (HCC)- Primary Multiple Myeloma Not Having Achieved Remission (HCC) documented in this encounter Additional Health Concerns Infection Onset Date Last Indicated Resolved Time Protective Environment 06/03/2022 06/03/2022 documented as of this encounter Care Teams Ocean Freight Manager Relationship Specialty Start Date End Date Elsewhere, Pcp PCP - General Internal Medicine 04/01/22 documented as of this encounter
--- OUTSIDE RECORDS SUMMARY | 2023-03-08 08:57 | XMS_ITS | Encounter Summary ---
Author Name Unknown Organization [facility] Address [address] [place] [address] Care Team Providers Care Cut Off Sawyer [employer] Name Role Phone Elsewhere, Pcp Primary Care [...] 17 total visits Mari Noguera M.D. [address] [place] [address] [facility] Region Referral ID Status Reason Start Date Expiration Date V isits Requested Visits Authorized [id number] Authorized 05/28/2021 02/27/2024 31 31 Encounter Details Date Type Department Care Team (Late st Contact Info) Description 05/20/2022 3:30 PM CDT Infusion Department of Infusion Therapy in [place], [place] [address] [place] [phone] Mari Noguera M.D. [address] [place] [phone] Multiple Myeloma Not Having Achieved Remission [...] How often do you attend chur or episcopalian services? 1 to 4 times [...] Answer Date Recorded PHQ-2 Score 4 11/18/2021 [employer] [facility] Occupat [facility] - Occupational Stress Questionnaire Answer Date [...] Sign Reading Time Taken Comments Blood Pressure 152/59 05/20/2022 3:28 PM CDT Pulse 53 05/20/2022 3:28 PM CDT Temperature 36.7 ??C (98.1 ??F) 05/20/2022 3:28 PM CD T Respiratory Rate 20 05/20/2022 3:28 PM CDT Oxygen Saturation 99% 05/20/2022 3:28 PM CDT Inhaled Oxygen Concentration - - Weight - - Height - - Body Mass Index - - documented in this encounter Plan of Treatment Upcoming Encounters Date Type Department Care Team (Late st Contact Info) Description 03/16/2023 10:30 AM COST ESTIMATING CLERK Appointment Department of Laboratory Medicine in [address] [phone] Mari Noguera M.D. [address] [place] [phone] 03/17/2023 8:40 AM COST ESTIMATING CLERK Office Visit Department of Oncology in [address] [phone] Mari [place] [phone] 03/17/2023 9:45 AM COST ESTIMATING CLERK Infusion Department of Infusion Therapy in [address] [phone] Mari Noguera M.D. [address] [place] [phone] 03/31/2023 10:10 AM COST ESTIMATING CLERK Appointment Department of Laboratory Medicine in [address] [phone] Mari Noguera M.D. [address] [place] [phone] 04/04/2023 8:20 AM COST ESTIMATING CLERK Office Visit Department of Oncology in [address] [phone] Mari Noguera M.D. [address] [place] [phone] 04/04/2023 9:00 AM COST ESTIMATING CLERK Infusion Department of Infusion Therapy in [address] [phone] Mari Noguera M.D. [address] [place] [phone] 04/13/2023 10:10 AM COST ESTIMATING CLERK Appointment Department of Laboratory Medicine in [address] [phone] Mari Noguera M.D. [address] [place] [phone] 04/14/2023 9:00 AM COST ESTIMATING CLERK Infusion Department of Infusion Therapy in [address] [phone] Mari Noguera M.D. [address] [place] [phone] documented as of this encounter Visit Diagnoses [...] BSA from Measured weight), subcutaneous, Once, On Mon05/20/22 at 1530, For 1 dose, Rotate injection site. Given 05/20/2022 3:45 PM CDT 2.5 mg Right Upper Abdomen documented in this encounter Care Teams Cut [employer] Relationship Specialty Start Date End Date Elsewhere, Pcp PCP - General Internal Medicine 04/01/22 documented as of this encounter
--- OUTSIDE RECORDS SUMMARY | 2023-03-08 08:58 | XMS_ITS | Encounter Summary ---
Author Name Unknown Organization [facility] Address [address] [place] [address] Care Team Providers Care Gas Operation Manager Name Role Phone Elsewhere, Pcp Primary Care Provider Unavailabl e Reason for Visit * Episode Based Medications (Routine) - Authorized Specialty Diagnoses / Procedures Referred By Guillermina zamora Referred To Contact Diagnoses Multiple Myeloma Not Having Achieved Remission (HCC) Procedures AZ ONDANSETRON HCL INJECTION AZ DARATUMUMAB, HYALURONIDASE [place] BORTEZOMIB INJECTION 1,800 mg on Day 1, 8, 15, 22 for cycles 1 & 2, Day 1, 15 3-6, Day 1 for cycle 7 / 28 day cycles / 17 total visits Mari Noguera M.D. [address] [place] [address] [facility] Region Referral ID Status Reason Start Date Expiration Date V isits Requested Visits Authorized [id number] Authorized 05/28/2021 02/27/2024 31 31 Encounter Details Date Type Department Care Team (Latest Contact Info) Description 04/22/2022 12:51 PM CERTIFIED PHARMACY TECHNICIAN - 04/22/2022 11:59 PM CERTIFIED PHARMACY TECHNICIAN Hospital Encounter Department of Laboratory Medicine in [place], [place] [address] [place] [phone] Mari Noguera M.D. [address] [place] [phone] Multiple Myeloma Not Having Achieved [...] How often do you attend chur or orthodoxy services? 1 to 4 times per year [...] 11/18/2021 [facility] - [...] Take 1,000 mcg by mouth daily. 0 loperamide (IMODIUM A-D) 2 mg capsule Take [...] 325 mg by mouth. 0 03/28/2022 10/07/2022 escitalopram (LEXAPRO) 10 mg tablet Take 1 tablet (10 mg total) by mouth daily. 30 tablet 3 01/14/2022 05/04/2022 lenalidomide (REVLIMID) 10 mg capsuleIndications:Mul tiple Myeloma Not Having Achieved Remission (HCC) Take 1 capsule (10 mg total) by mouth daily. Take on days 1 through 21 of cycle. 21 capsule 0 04/05/2022 05/06/2022 penicillin V potassium (VEETIDS) 500 mg tablet Take 1 tablet (500 mg total) by mouth 2 (two) times a day. 60 tablet 11 12/01/2021 12/08/2022 documented as of this encounter Plan of Treatment Upcoming Encounters Date Type Department Care Team (Late st Contact Info) Description 03/16/2023 10:30 AM CERTIFIED PHARMACY TECHNICIAN Appointment Department of Laboratory Medicine in [address] [phone] Mari Noguera M.D. [address] [place] [phone] 03/17/2023 8:40 AM CERTIFIED PHARMACY TECHNICIAN Office Visit Department of Oncology in [address] [place] [phone] Mari Noguera M.D. [address] [place] [phone] 03/17/2023 9:45 AM CERTIFIED PHARMACY TECHNICIAN Infusion Department of Infusion Therapy in [address] [phone] Mari Noguera M.D. [address] [place] [phone] 03/31/2023 10:10 AM CERTIFIED PHARMACY TECHNICIAN Appointment Department of Laboratory Medicine in [address] [place] [address] Mari Noguera M.D. [address] [place] [phone] 04/04/2023 8:20 AM CERTIFIED PHARMACY TECHNICIAN Office Visit Department of Oncology in [address] [phone] Mari Noguera M.D. [address] [place] [phone] 04/04/2023 9:00 AM CERTIFIED PHARMACY TECHNICIAN Infusion Department of Infusion Therapy in [address] [phone] Mrai Noguera M.D. [address] [place] [phone] 04/13/2023 10:10 AM CERTIFIED PHARMACY TECHNICIAN Appointment Department of Laboratory Medicine in [address] [place] [phone] Mari Noguera M.D. [address] [place] [phone] 04/14/2023 9:00 AM CERTIFIED PHARMACY TECHNICIAN Infusion Department of Infusion Therapy in [address] [phone] Mari Noguera M.D. [address] [place] [phone] documented as of this encounter Procedures Procedure Name Priority Date/Time Associated Diagnosis Comments CBC CHEMO - NO ALERTS Routine 04/22/2022 12:59 PM CERTIFIED PHARMACY TECHNICIAN Multiple Myeloma Not Having Achieved Remission (HCC) documented in this encounter Results * (ABNORMAL) CBC, Chemotherapy, No Alerts (04/22/2022 12:59 PM CERTIFIED PHARMACY TECHNICIAN) Hemoglobin 13.0 11.6 - 15.0 g/dL 04/22/2022 1:20 PM CERTIFIED PHARMACY TECHNICIAN [facility] Platelet Count 206 157 - 371 x10(9)/L 04/22/2022 1:20 PM CERTIFIED PHARMACY TECHNICIAN [facility] Leukocytes 9.3 3.4 - 9.6 x10(9)/L 04/22/2022 1:20 PM CERTIFIED PHARMACY TECHNICIAN [facility] Neutrophils 7.14(H) 1.56 - 6.45 x10(9)/L 04/22/2022 1:20 PM CERTIFIED PHARMACY TECHNICIAN [facility] Blood (Blood, Venous) 04/22/2022 12:59 PM CERTIFIED PHARMACY TECHNICIAN 04/22/2022 1:01 PM CERTIFIED PHARMACY TECHNICIAN Mari Noguera M.D. LAB BLOOD ADD-ON [facility] [address] [place] [address], [facility] in [place] [address] [place] [address] documented in this encounter Visit Diagnoses Diagnosis Multiple Myeloma Not Having Achieved Remission (HCC) documented in this encounter Care Teams Gas Operation Manager Relationship Specialty Start Date End Date Elsewhere, Pcp PCP - General Internal Medicine 04/01/22 documented as of this encounter
--- OUTSIDE RECORDS SUMMARY | 2023-03-08 08:58 | XMS_ITS | Encounter Summary ---
Author Name Unknown Organization [facility] Address [address] [place] [address] Care Team Providers Care Charge Lpn Name Role Phone Elsewhere, Pcp Primary Care Provider Unavailabl e Reason for Visit * Reason Comments Follow-up * Outpatient (Routine) - Closed Specialty Diagnoses / Procedures Referred By Guillermina zamora Referred To Contact Oncology Mari Noguera M.D. [address] [place] [address] [facility] Region Referral ID Status Reason Start Date Expiration Date Visits Re quested Visits Authorized [id number] Closed 03/23/2022 03/22/2025 1 1 Encounter Details Date Type Department Care Team (Late st Contact Info) Description 04/08/2022 9:00 AM MEDICAL SUPPORT ASSISTANT Office Visit Department of Oncology in [place], [place] [address] [place] [address] Mari Noguera M.D. [address] [place] [phone] Multiple Myeloma In Remission (HCC) [...] How often do you attend [facility] or islam services? 1 to 4 times per year 06/11/2021 Do you belong to any clubs o r organizations such as adventist groups, unions, fraternal or athletic groups, or [...] Answer Date Recorded PHQ-2 Score 4 11/18/2021 [facility] of Occupat ional Health - Occupational Stress [...] Sign Reading Time Taken Comments Blood Pressure 149/73 04/08/2022 8:59 AM MEDICAL SUPPORT ASSISTANT Pulse 66 04/08/2022 8:49 AM MEDICAL SUPPORT ASSISTANT Temperature 37 ??C (98.6 ??F) 04/08/2022 8:49 AM MEDICAL SUPPORT ASSISTANT Respiratory Rate - - Oxygen Saturation 94% 04/08/2022 8:49 AM MEDICAL SUPPORT ASSISTANT Inhaled Oxygen Concentration - - Weight 85.4 kg (188 lb 4.4 oz) 04/08/2022 8:49 A M MEDICAL SUPPORT ASSISTANT Height - - Body Mass Index 35.09 12/10/2021 1:49 PM CDT documented in this encounter Progress Notes * Mari Noguera M.D. - 04/08/2022 9:00 AM CST SUBJECTIVE PRIMARY CARE PHYSICIAN ELSEWHERE, [...] chains: kappa: 8.01 mg/L; lambda: 33.64 mg/L; [place]:Lambda Ratio: 0.24 SPEP: M-spike: 3.26 g/dL Immunofixation: [...] hour(s)) CBC with Differential, Blood Collection Time: 04/08/22 8:05 AM Result Value Ref Range Hemoglobin 12.7 11.6 - 15.0 g/dL Hematocrit 40.7 35.5 - 44.9 % Erythrocytes 4.23 3.92 - 5.13 x10(12)/L MCV 96.2 78.2 - 97.9 fL RBC Distrib Width 13.7 12.2 - 16.1 % Platelet Count 181 157 - 371 x10(9)/L Leukocytes 7.8 3.4 - 9.6 x10(9)/L Neutrophils 5.77 1.56 - 6.45 x10(9)/L Lymphocytes 1.23 0.95 - 3.07 x10(9)/L Monocytes 0.66 0.26 - 0.81 x10(9)/L Eosinophils 0.14 0.03 - 0.48 x10(9)/L Basophils 0.03 0.01 - 0.08 x10(9)/L Comprehensive Metabolic Panel Collection Time: 04/08/22 8:06 AM Result Value Ref Range Potassium, P 4.2 3.6 - 5.2 mmol/L Sodium, P 139 135 - 145 mmol/L Chloride, P 99 98 - 107 mmol/L Bicarbonate, P 29 22 - 29 mmol/L Anion Gap, P 11 7 - 15 BUN (Blood Urea Nitrogen), P 20 6 - 21 mg/dL Creatinine 0.93 0.59 - 1.04 mg/dL Estimated GFR (eGFR) 64 >=60 mL/min/BSA Calcium, Total, P 9.8 8.8 - 10.2 mg/dL Glucose, P 108 70 - 140 mg/dL Protein, Total, P 6.8 6.3 - 7.9 g/dL Albumin, P 4.3 3.5 - 5.0 g/dL Aspartate Aminotransferase (AST), P 19 8 - 43 U/L Alkaline Phosphatase, P 78 35 - 104 U/L Alanine Aminotransferase (ALT), P 19 7 - 45 U/L Bilirubin, Total, P 0.3 <=1.2 mg/dL RADIOLOGICAL DATA No results found. ASSESSMENT / PLAN #1 Multiple Myeloma In Remission, high risk IgG lambda with VGPR post ASCT day 0 12/02/2021 ([facility]) Ms. Treadwell will begin maintenance therapy with every other week bortezomib 1.3 mg/m2 and lenalidomide 10 mg 21 of 28 days. She has been approved for patient assistance program for her Revlimid, she will be receiving this on May 15, will go ahead with bortezomib today and will add the Revlimid when she receives it. Plan for follow-up in 4-6 weeks with repeat myeloma indices prior. Post transplant immunizations: She has already received the flu vaccine. She can begin COVID vaccinations this month, she will do this through her primary care provider. She was seen in the immunization Clinic and they have given her the schedule of re vaccinations beginning approximately 6 months after transplant which she will also pursue through primary care. She and her family understand thattammy can not receive any live vaccines at [...] consider full anticoagulation in the perioperative period. 25 minutes spent in review of diagnostics, patient counseling, treatment planning and care coordination Mari Noguera M.D. CAL SUPPORT ASSISTANT documented in this encounter Plan of Treatment Upcoming Encounters Date Type Department Care Team (Late st Contact Info) Description 03/16/2023 10:30 AM MEDICAL SUPPORT ASSISTANT Appointment Department of Laboratory Medicine in [place] [address] [place] [address] Mari Noguera M.D. [address] [place] [phone] 03/17/2023 8:40 AM MEDICAL SUPPORT ASSISTANT Office Visit Department of Oncology in [address] [phone] Mari Noguera M.D. [address] [place] [phone] 03/17/2023 9:45 AM MEDICAL SUPPORT ASSISTANT Infusion Department of Infusion Therapy in [address] [phone] Mari Noguera M.D. [address] [place] [phone] 03/31/2023 10:10 AM MEDICAL SUPPORT ASSISTANT Appointment Department of Laboratory Medicine in [address] [place] [address] Mari Noguera M.D. [address] [place] [phone] 04/04/2023 8:20 AM MEDICAL SUPPORT ASSISTANT Office Visit Department of Oncology in [address] [phone] Mari Noguera M.D. [address] [place] [phone] 04/04/2023 9:00 AM MEDICAL SUPPORT ASSISTANT Infusion Department of Infusion Therapy in [address] [phone] Mari Noguera M.D. [address] [place] [phone] 04/13/2023 10:10 AM MEDICAL SUPPORT ASSISTANT Appointment Department of Laboratory Medicine in [address] [place] [phone] Mari Noguera M.D. [address] [place] [phone] 04/14/2023 9:00 AM MEDICAL SUPPORT ASSISTANT Infusion Department of Infusion Therapy in [address] [phone] Mari Noguera M.D. [address] [place] [phone] documented as of this encounter Visit Diagnoses Diagnosis Multiple Myeloma In Remission (HCC)- Primary documented in this encounter Care Teams Charge Lpn Relationship Specialty Start Date End Date Elsewhere, Pcp PCP - General Internal Medicine 04/01/22 documented as of this encounter
--- OUTSIDE RECORDS SUMMARY | 2023-03-08 08:58 | XMS_ITS | Encounter Summary ---
Author Name Unknown Organization [facility] Address [address] [place] [address] Care Team Providers Care Biofuels Processing Technician Name Role Phone Elsewhere, Pcp Primary Care Provider Unavailabl e Reason for Visit * Reason Comments Med Refill Encounter Details Date Type Department Care Team (Late st Contact Info) Description 05/03/2022 Refill Department of Oncology in [place], [place] [address] [place] [phone] Mari Noguera M.D. [address] [place] [phone] Med Refill Social History Tobacco [...] do you attend [facility] or hindu services? 1 to 4 times [...] PHQ-2 Score 4 11/18/2021 [facility] of Occupat ionma Health - Occupational Stress Questionnaire Answer Date [...] st Contact Info) Description 03/16/2023 10:30 AM SLATE HANDLER Appointment Department of Laboratory Medicine in [place] [address] [place] [phone] Mari Noguera M.D. [address] [place] [phone] 03/17/2023 8:40 AM SLATE HANDLER Office Visit Department of Oncology in [address] [place] [phone] Mari Noguera M.D. [address] [place] [phone] 03/17/2023 9:45 AM SLATE HANDLER Infusion Department of Infusion Therapy in [address] [place] [address] Mari Noguera M.D. [address] [place] [phone] 03/31/2023 10:10 AM SLATE HANDLER Appointment Department of Laboratory Medicine in [address] [phone] Mari Noguera M.D. [address] [place] [phone] 04/04/2023 8:20 AM SLATE HANDLER Office Visit Department of Oncology in [address] [place] [address] Mari Noguera M.D. [address] [place] [phone] 04/04/2023 9:00 AM SLATE HANDLER Infusion Department of Infusion Therapy in [address] [phone] Mari Noguera M.D. [address] [place] [phone] 04/13/2023 10:10 AM SLATE HANDLER Appointment Department of Laboratory Medicine in [address] [phone] Mari Noguera M.D. [address] [place] [phone] 04/14/2023 9:00 AM SLATE HANDLER Infusion Department of Infusion Therapy in [place], [place] [address] [place] [phone] Mari Noguera M.D. [address] [place] [phone] documented as of this encounter Visit Diagnoses Not on filedocumented in this encounter Care Teams Biofuels Processing Technician Relationship Specialty Start Date End Date Elsewhere, Pcp PCP - General Internal Medicine 04/01/22 documented as of this encounter
--- OUTSIDE RECORDS SUMMARY | 2023-03-08 08:58 | XMS_ITS | Encounter Summary ---
Author Name Unknown Organization [facility] Address [address] [place] [address] Care Team Providers Care Sandwich And Drink Cart Operator Name Role Phone Unavailable Primary Care Provider Unavailabl e Reason for Visit * Reason Onset Date Comments Graduation 03/30/2022 Patient graduate d from the Remote Monitoring program. Encounter Details Date Type Department Care Team (Latest Contact Info) Description 03/30/2022 Remote Monitoring Remote Patient Monitoring [facility] [address] [place] [address] Joseline Dan C [address] [place] [address] Graduation (Patient graduated from the Remote Monitoring program./ ) Social History Tobacco Use Types Packs/Day Years [...] How often do you attend chur or adventist services? 1 to 4 times [...] 4 11/18/2021 [facility] - Occupational Stress Questionnaire Answer Date [...] st Contact Info) Description 03/16/2023 10:30 AM TEA ROOM MANAGER Appointment Department of Laboratory Medicine in [place] [address] [address] [facility] [phone] Mari Noguera M.D. [address] [place] [phone] 03/17/2023 8:40 AM TEA ROOM MANAGER Office Visit Department of Oncology in [address] [place] [phone] Mari Noguera M.D. [address] [place] [phone] 03/17/2023 9:45 AM TEA ROOM MANAGER Infusion Department of Infusion Therapy in [address] [place] [address] Mari Noguera M.D. [address] [place] [phone] 03/31/2023 10:10 AM TEA ROOM MANAGER Appointment Department of Laboratory Medicine in [address] [address] Mari Noguera M.D. [address] [place] [phone] 04/04/2023 8:20 AM TEA ROOM MANAGER Office Visit Department of Oncology in [address] [phone] Mari Noguera M.D. [address] [place] [phone] 04/04/2023 9:00 AM TEA ROOM MANAGER Infusion Department of Infusion Therapy in [address] [phone] Mari Noguera M.D. [address] [place] [phone] 04/13/2023 10:10 AM TEA ROOM MANAGER Appointment Department of Laboratory Medicine in [address] [phone] Mari Noguera M.D. [address] [place] [phone] 04/14/2023 9:00 AM TEA ROOM MANAGER Infusion Department of Infusion Therapy in [place], [place] [address] [place] [phone] Mari Noguera M.D. [address] [place] [phone] documented as of this encounter Visit Diagnoses Not on filedocumented in this encounter Additional Health Concerns Infection Onset Date Last Indicated Resolved Time COVID19 03/19/2022 03/19/2022 04/08/2022 5:08 AM TEA ROOM MANAGER documented as of this encounter
--- OUTSIDE RECORDS SUMMARY | 2023-03-08 08:58 | XMS_ITS | Encounter Summary ---
Author Name Unknown Organization [facility] Address [address] [place] [address] Care Team Providers Care E Mail System Administrator Name Role Phone Elsewhere, Pcp Primary Care Provider Unavailabl e Encounter Details Date Type Department Care Team (Late st Contact Info) Description 04/25/2022 Specialty Pharmacy [facility] [address] [place] [address] Katelin Vargas, Pharm.D., R.Ph. [address] [place] [phone] Social History Tobacco Use Types Packs/Day Years [...] often do you attend chur ch or synagogue services? 1 to 4 times per year [...] encounter Miscellaneous Notes * Telephone Encounter - Katelin Vargas Pharm.D., R.Ph. - 04/25/2022 4:24 PM TOLL LINE INSPECTOR Note created for purposes of potential enrollment with [facility] and medication interaction check via [employer] interaction design checker. No telephone contact with patient at this point. 04/25/22 Katelin Vargas Pharm.D., R.Ph. LINE INSPECTOR documented in this encounter Plan of Treatment Upcoming Encounters Date Type Department Care Team (Late st Contact Info) Description 03/16/2023 10:30 AM TOLL LINE INSPECTOR Appointment Department of Laboratory Medicine in [place], [place] [address] [facility] [place] [address] Mari Noguera M.D. [address] [place] [phone] 03/17/2023 8:40 AM TOLL LINE INSPECTOR Office Visit Department of Oncology in [address] [phone] Mari Noguera M.D. [address] [place] [phone] 03/17/2023 9:45 AM TOLL LINE INSPECTOR Infusion Department of Infusion Therapy in [address] [phone] Mari Noguera M.D. [address] [place] [phone] 03/31/2023 10:10 AM TOLL LINE INSPECTOR Appointment Department of Laboratory Medicine in [place], [place] [address] [facility] [place] [address] Mari Noguera M.D. [address] [place] [phone] 04/04/2023 8:20 AM TOLL LINE INSPECTOR Office Visit Department of Oncology in [address] [phone] Mari Noguera M.D. [address] [place] [phone] 04/04/2023 9:00 AM TOLL LINE INSPECTOR Infusion Department of Infusion Therapy in [address] [phone] Mari Noguera M.D. [address] [place] [phone] 04/13/2023 10:10 AM TOLL LINE INSPECTOR Appointment Department of Laboratory Medicine in [address] [phone] Mari Noguera M.D. [address] [place] [phone] 04/14/2023 9:00 AM TOLL LINE INSPECTOR Infusion Department of Infusion Therapy in [address] [phone] Mari Noguera M.D. [address] [place] [phone] documented as of this encounter Visit Diagnoses Not on filedocumented in this encounter Care Teams E Mail System Administrator Relationship Specialty Start Date End Date Elsewhere, Pcp PCP - General Internal Medicine 04/01/22 documented as of this encounter
--- OUTSIDE RECORDS SUMMARY | 2023-03-08 08:58 | XMS_ITS | Encounter Summary ---
Author Name Unknown Organization [facility] Address [address] [place] [address] Care Team Providers Care Tankroom Worker Name Role Phone Elsewhere, Pcp Primary [...] 17 total visits Mari Noguera M.D. [address] [place] [address] [facility] Region Referral ID Status Reason Start Date Expiration Date V isits Requested Visits Authorized [id number] Authorized 05/28/2021 02/27/2024 31 31 Encounter Details Date Type Department Care Team (Late st Contact Info) Description 04/08/2022 8:30 AM GASOLINE POWER SHOVEL OPERATOR Infusion Department of Infusion Therapy in [place], [place] [address] [place] [phone] Mari Noguera M.D. [address] [place] [phone] Multiple Myeloma Not Having Achieved Remission [...] 06/11/2021 How often do you attend [facility] or hindu services? 1 to 4 [...] st Contact Info) Description 03/16/2023 10:30 AM GASOLINE POWER SHOVEL OPERATOR Appointment Department of Laboratory Medicine in [address] [phone] Mari Noguera M.D. [address] [place] [phone] 03/17/2023 8:40 AM GASOLINE POWER SHOVEL OPERATOR Office Visit Department of Oncology in [address] [phone] Mari Noguera M.D. [address] [place] [phone] 03/17/2023 9:45 AM GASOLINE POWER SHOVEL OPERATOR Infusion Department of Infusion Therapy in [address] [phone] Mari Noguera M.D. [address] [place] [phone] 03/31/2023 10:10 AM GASOLINE POWER SHOVEL OPERATOR Appointment Department of Laboratory Medicine in [address] [phone] Mari Noguera M.D. [address] [place] [phone] 04/04/2023 8:20 AM GASOLINE POWER SHOVEL OPERATOR Office Visit Department of Oncology in [address] [phone] Mari Noguera M.D. [address] [place] [phone] 04/04/2023 9:00 AM GASOLINE POWER SHOVEL OPERATOR Infusion Department of Infusion Therapy in [address] [phone] Mari Noguera M.D. [address] [place] [phone] 04/13/2023 10:10 AM GASOLINE POWER SHOVEL OPERATOR Appointment Department of Laboratory Medicine in [address] [place] [phone] Mari Noguera M.D. [address] [place] [phone] 04/14/2023 9:00 AM GASOLINE POWER SHOVEL OPERATOR Infusion Department of Infusion Therapy in [address] [phone] Mari Noguera M.D. [address] [place] [phone] documented as of this encounter Visit Diagnoses [...] BSA from Measured weight), subcutaneous, Once, On Mon04/08/22 at 0915, For 1 dose, Rotate injection site. Given 04/08/2022 9:41 AM GASOLINE POWER SHOVEL OPERATOR 2.5 mg Right Upper Abdomen documented in this encounter Care Teams Tankroom Worker Relationship Specialty Start Date End Date Elsewhere, Pcp PCP - General Internal Medicine 04/01/22 documented as of this encounter
--- OUTSIDE RECORDS SUMMARY | 2023-03-08 08:58 | XMS_ITS | Encounter Summary ---
Author Name Unknown Organization [facility] Address [address] [place] [address] Care Team Providers Care Gas Fitter Name Role Phone Elsewhere, Pcp Primary Care Provider Unavailabl e Reason for Visit * Reason Onset Date Comments Revlimid Access and Reimbursement 04/13/2022 [place] [facility] Access Support Encounter Details Date Type Department Care Team (Latest Contact Info) Description 04/13/2022 Clinical Communication Department of Oncology in [place], [place] [address] [place] [phone] Mari Noguera M.D. [address] [place] [phone] Revlimid Access and Reimbursement ([place] [employer] Access Support) Social History Tobacco Use Types Packs/Day Years [...] * Telephone Encounter - Jose A Villasenor - 04/18/2022 2:13 PM CST Provider completed document, faxed to [email or web address] and placed to be scanned. Fax- [phone] STIGATIONS MANAGER * Telephone Encounter - Jose A Villasenor - 04/13/2022 10:39 AM CST On 04/12/2022 received Physician form for support of Revlimid. Placed document on providers desk for completion. STIGATIONS MANAGER documented in this encounter Plan of Treatment Upcoming Encounters Date Type Department Care Team (Late st Contact Info) Description 03/16/2023 10:30 AM INVESTIGATIONS MANAGER Appointment Department of Laboratory Medicine in [address] [address] Mari Noguera M.D. [address] [place] [phone] 03/17/2023 8:40 AM INVESTIGATIONS MANAGER Office Visit Department of Oncology in [address] [phone] Mari Noguera M.D. [address] [place] [phone] 03/17/2023 9:45 AM INVESTIGATIONS MANAGER Infusion Department of Infusion Therapy in [address] [phone] Mari Noguera M.D. [address] [place] [phone] 03/31/2023 10:10 AM INVESTIGATIONS MANAGER Appointment Department of Laboratory Medicine in [address] [phone] Mari Noguera M.D. [address] [place] [phone] 04/04/2023 8:20 AM INVESTIGATIONS MANAGER Office Visit Department of Oncology in [address] [place] [phone] Mari Noguera M.D. [address] [place] [phone] 04/04/2023 9:00 AM INVESTIGATIONS MANAGER Infusion Department of Infusion Therapy in [address] [place] [phone] Mari Noguera M.D. [address] [place] [phone] 04/13/2023 10:10 AM INVESTIGATIONS MANAGER Appointment Department of Laboratory Medicine in [address] [place] [address] Mari Noguera M.D. [address] [place] [phone] 04/14/2023 9:00 AM INVESTIGATIONS MANAGER Infusion Department of Infusion Therapy in [address] [place] [phone] Mari Noguera M.D. [address] [place] [phone] documented as of this encounter Visit Diagnoses Not on filedocumented in this encounter Care Teams Gas Fitter Relationship Specialty Start Date End Date Elsewhere, Pcp PCP - General Internal Medicine 04/01/22 documented as of this encounter
--- OUTSIDE RECORDS SUMMARY | 2023-03-08 08:58 | XMS_ITS | Encounter Summary ---
Author Name Unknown Organization [facility] Address [address] [place] [address] Care Team Providers Care Private Inquiry Agent Name Role Phone Elsewhere, Pcp Primary [...] 17 total visits Mari Noguera M.D. [address] [place] [address] [facility] Region Referral ID Status Reason Start Date Expiration Date V isits Requested Visits Authorized [id number] Authorized 05/28/2021 02/27/2024 31 31 Encounter Details Date Type Department Care Team (Late st Contact Info) Description 05/06/2022 3:45 PM AUTO BODY BUILDER APPRENTICE Infusion Department of Infusion Therapy in [address] [phone] Mari Noguera M.D. [address] [place] [phone] Multiple Myeloma Not Having Achieved Remission (HCC) [...] you attend [facility] or latter-day services? 1 to 4 times [...] Answer Date Recorded PHQ-2 Score 4 11/18/2021 [facility] of Occupat ional [facility] - Occupational Stress Questionnaire Answer Date [...] Sign Reading Time Taken Comments Blood Pressure 175/71 05/06/2022 3:03 PM AUTO BODY BUILDER APPRENTICE Pulse 55 05/06/2022 3:03 PM AUTO BODY BUILDER APPRENTICE Temperature 36.1 ??C (97 ??F) 05/06/2022 3:03 PM AUTO BODY BUILDER APPRENTICE Respiratory Rate 18 05/06/2022 3:03 PM AUTO BODY BUILDER APPRENTICE Oxygen Saturation 96% 05/06/2022 3:03 PM AUTO BODY BUILDER APPRENTICE Inhaled Oxygen Concentration - - Weight - - Height - - Body Mass Index - - documented in this encounter Plan of Treatment Upcoming Encounters Date Type Department Care Team (Late st Contact Info) Description 03/16/2023 10:30 AM AUTO BODY BUILDER APPRENTICE Appointment Department of Laboratory Medicine in [address] [phone] Mari Noguera M.D. [address] [place] [phone] 03/17/2023 8:40 AM AUTO BODY BUILDER APPRENTICE Office Visit Department of Oncology in [address] [phone] Mari Noguera M.D. [address] [place] [phone] 03/17/2023 9:45 AM AUTO BODY BUILDER APPRENTICE Infusion Department of Infusion Therapy in [address] [phone] Mari Noguera M.D. [address] [place] [phone] 03/31/2023 10:10 AM AUTO BODY BUILDER APPRENTICE Appointment Department of Laboratory Medicine in [address] [phone] Mari Noguera M.D. [address] [place] [phone] 04/04/2023 8:20 AM AUTO BODY BUILDER APPRENTICE Office Visit Department of Oncology in [address] [phone] Mari Noguera M.D. [address] [place] [phone] 04/04/2023 9:00 AM AUTO BODY BUILDER APPRENTICE Infusion Department of Infusion Therapy in [address] [phone] Mari Noguera M.D. [address] [place] [phone] 04/13/2023 10:10 AM AUTO BODY BUILDER APPRENTICE Appointment Department of Laboratory Medicine in [address] [phone] Mari Noguera M.D. [address] [place] [phone] 04/14/2023 9:00 AM AUTO BODY BUILDER APPRENTICE Infusion Department of Infusion Therapy in [address] [phone] Mari Noguera M.D. [address] [place] [phone] documented as of this encounter Visit Diagnoses [...] BSA from Measured weight), subcutaneous, Once, On Mon05/06/22 at 1515, For 1 dose, Rotate injection site. Given 05/06/2022 3:42 PM AUTO BODY BUILDER APPRENTICE 2.5 mg Left Upper Abdomen documented in this encounter Care Teams Private Inquiry Agent Relationship Specialty Start Date End Date Elsewhere, Pcp PCP - General Internal Medicine 04/01/22 documented as of this encounter
--- OUTSIDE RECORDS SUMMARY | 2023-03-08 08:58 | XMS_ITS | Encounter Summary ---
Author Name Unknown Organization [facility] Address [address] [place] [address] Care Team Providers Care Wire Machine Cutter Name Role Phone Elsewhere, Pcp Primary Care Provider Unavailabl e Reason for Visit * Reason Onset Date Comments Medication Problem 05/02/2022 Encounter Details Date Type Department Care Team (Latest Contact Info) Description 05/02/2022 Clinical Communication [facility] [address] [place] [address] Allan Parsons, Pharm.D., R.Ph. [address] [place] [address] Medication Problem Social History Tobacco Use Types Packs/Day Years [...] week 06/11/2021 How often do you attend [facility] or buddhist services? 1 to 4 times per year 06/11/2021 Do you belong to any clubs o r organizations such as gnosticist groups, unions, fraternal or athletic groups, or [...] PHQ-2 Score 4 11/18/2021 [facility] of Occupat ionri Health - Occupational Stress Questionnaire Answer Date [...] encounter Miscellaneous Notes * Telephone Encounter - Allan Parsons, Pharm.D., R.Ph. - 05/02/2022 2:37 PM CARROT TIER [facility] Rx dated 03/23/22 for Revlimid 10 mg caps. The initial auth# is nowexpired. Can you please pursue new auth# and either send new Rx or update us with the new auth# so we can process the Rx? Thank you, [facility] OT TIER documented in this encounter Plan of Treatment Upcoming Encounters Date Type Department Care Team (Late st Contact Info) Description 03/16/2023 10:30 AM CARROT TIER Appointment Department of Laboratory Medicine in [address] [phone] Mari Noguera M.D. [address] [place] [phone] 03/17/2023 8:40 AM CARROT TIER Office Visit Department of Oncology in [address] [phone] Mari Noguera M.D. [address] [place] [phone] 03/17/2023 9:45 AM CARROT TIER Infusion Department of Infusion Therapy in [address] [phone] Mari Nogurea M.D. [address] [place] [phone] 03/31/2023 10:10 AM CARROT TIER Appointment Department of Laboratory Medicine in [address] [phone] Mari Noguera M.D. [address] [place] [phone] 04/04/2023 8:20 AM CARROT TIER Office Visit Department of Oncology in [address] [phone] Mari Noguera M.D. [address] [place] [phone] 04/04/2023 9:00 AM CARROT TIER Infusion Department of Infusion Therapy in [address] [phone] Mari Noguera M.D. [address] [place] [phone] 04/13/2023 10:10 AM CARROT TIER Appointment Department of Laboratory Medicine in [place] [address] [place] [address] Mari Noguera M.D. [address] [place] [phone] 04/14/2023 9:00 AM CARROT TIER Infusion Department of Infusion Therapy in [address] [phone] Mari Noguera M.D. [address] [place] [phone] documented as of this encounter Visit Diagnoses Not on filedocumented in this encounter Care Teams Wire Machine Cutter Relationship Specialty Start Date End Date Elsewhere, Pcp PCP - General Internal Medicine 04/01/22 documented as of this encounter
--- OUTSIDE RECORDS SUMMARY | 2023-03-08 08:58 | XMS_ITS | Encounter Summary ---
Author Name Unknown Organization [facility] Address [address] [place] [address] Care Team Providers Care Healthcare Receptionist Name Role Phone Elsewhere, Pcp Primary Care Provider Unavailabl e Reason for Visit * Episode Based Medications (Routine) - Authorized Specialty Diagnoses / Procedures Referred By Guillermina zamora Referred To Contact Diagnoses Multiple Myeloma Not Having Achieved Remission (HCC) Procedures LA ONDANSETRON HCL INJECTION LA DARATUMUMAB, HYALURONIDASE LA BORTEZOMIB INJECTION 1,800 mg on Day 1, 8, 15, 22 for cycles 1 & 2, Day 1, 15 3-6, Day 1 for cycle 7 / 28 day cycles / 17 total visits Mari Noguera M.D. [address] [place] [address] [facility] Region Referral ID Status Reason Start Date Expiration Date V isits Requested Visits Authorized [id number] Authorized 05/28/2021 02/27/2024 31 31 Encounter Details Date Type Department Care Team (Latest Contact Info) Description 04/08/2022 7:51 AM PLISSE MACHINE OPERATOR HELPER - 04/08/2022 11:59 PM PLISSE MACHINE OPERATOR HELPER Hospital Encounter Department of Laboratory Medicine in [place], [place] [address] [place] [phone] Mari Noguera M.D. [address] [place] [address] Multiple Myeloma Not Having Achieved [...] st Contact Info) Description 03/16/2023 10:30 AM PLISSE MACHINE OPERATOR HELPER Appointment Department of Laboratory Medicine in [address] [address] Mari Noguera M.D. [address] [place] [phone] 03/17/2023 8:40 AM PLISSE MACHINE OPERATOR HELPER Office Visit Department of Oncology in [address] [place] [address] Mari Noguera M.D. [address] [place] [phone] 03/17/2023 9:45 AM PLISSE MACHINE OPERATOR HELPER Infusion Department of Infusion Therapy in [address] [phone] Mari Noguera M.D. [address] [place] [phone] 03/31/2023 10:10 AM PLISSE MACHINE OPERATOR HELPER Appointment Department of Laboratory Medicine in [place], [place] [address] [place] [address] Mari Noguera M.D. [address] [place] [phone] 04/04/2023 8:20 AM PLISSE MACHINE OPERATOR HELPER Office Visit Department of Oncology in [address] [phone] Mari Noguera M.D. [address] [place] [phone] 04/04/2023 9:00 AM PLISSE MACHINE OPERATOR HELPER Infusion Department of Infusion Therapy in [address] [phone] Mari Noguera M.D. [address] [place] [phone] 04/13/2023 10:10 AM PLISSE MACHINE OPERATOR HELPER Appointment Department of Laboratory Medicine in [address] [place] [address] Mari Noguera M.D. [address] [place] [phone] 04/14/2023 9:00 AM PLISSE MACHINE OPERATOR HELPER Infusion Department of Infusion Therapy in [address] [phone] Mari Noguera M.D. [address] [place] [phone] documented as of this encounter Procedures Procedure Name Priority Date/Time Associated Diagnosis Comments COMPREHENSIVE METABOLIC PANEL, S/P Routine 04/08/2022 8:06 AM PLISSE MACHINE OPERATOR HELPER Multiple Myeloma Not Having Achieved Remission (HCC) CBC WITH DIFFERENTIAL, B Routine 04/08/2022 8:05 AM PLISSE MACHINE OPERATOR HELPER Multiple Myeloma Not Having Achieved Remission (HCC) documented in this encounter Results * Comprehensive Metabolic Panel (04/08/2022 8:06 AM PLISSE MACHINE OPERATOR HELPER) Potassium, P 4.2 3.6 - 5.2 mmol/L 04/08/2022 8:47 AM PLISSE MACHINE OPERATOR HELPER RDWG Sodium, P 139 135 - 145 mmol/L 04/08/2022 8:47 AM PLISSE MACHINE OPERATOR HELPER RDWG Chloride, P 99 98 - 107 mmol/L 04/08/2022 8:47 AM PLISSE MACHINE OPERATOR HELPER RDWG Bicarbonate, P 29 22 - 29 mmol/L 04/08/2022 8:47 AM PLISSE MACHINE OPERATOR HELPER RDWG Anion Gap, P 11 7 - 15 04/08/2022 8:47 AM PLISSE MACHINE OPERATOR HELPER RDWG BUN (Blood Urea Nitrogen), P 20 6 - 21 mg/dL 04/08/2022 8:47 AM PLISSE MACHINE OPERATOR HELPER RDWG Creatinine 0.93 0.59 - 1.04 mg/dL 04/08/2022 8:47 AM PLISSE MACHINE OPERATOR HELPER RDWG Estimated GFR (eGFR) 64 >=60 mL/min/BS A 04/08/2022 8:47 AM PLISSE MACHINE OPERATOR HELPER RDWG Comment: Estimated GFR calculated using the 2020 CKD_EPI creatinine equation. Calcium, Total, P 9.8 8.8 - 10.2 mg/dL 04/08/2022 8:47 AM PLISSE MACHINE OPERATOR HELPER RDWG Glucose, P 108 70 - 140 mg/dL 04/08/2022 8:47 AM PLISSE MACHINE OPERATOR HELPER RDWG Protein, Total, P 6.8 6.3 - 7.9 g/dL 04/08/2022 8:47 AM PLISSE MACHINE OPERATOR HELPER RDWG Albumin, P 4.3 3.5 - 5.0 g/dL 04/08/2022 8:47 AM PLISSE MACHINE OPERATOR HELPER RDWG Aspartate Aminotransferase (AST), P 19 8 - 43 U/L 04/08/2022 8:47 AM PLISSE MACHINE OPERATOR HELPER RDWG Alkaline Phosphatase, P 78 35 - 104 U/L 04/08/2022 8:47 AM PLISSE MACHINE OPERATOR HELPER RDWG Alanine Aminotransferase (ALT), P 19 7 - 45 U/L 04/08/2022 8:47 AM PLISSE MACHINE OPERATOR HELPER RDWG Bilirubin, Total, P 0.3 <=1.2 mg/dL 04/08/2022 8:47 AM PLISSE MACHINE OPERATOR HELPER RDWG Blood (Blood, Venous) 04/08/2022 8:06 AM PLISSE MACHINE OPERATOR HELPER 04/08/2022 8:13 AM PLISSE MACHINE OPERATOR HELPER Mari Noguera M.D. LAB BLOOD ADD-ON [facility] [address] [place] [address], [facility] RDWG [facility] [place] [address] [place] [address] * CBC with Differential, Blood (04/08/2022 8:05 AM PLISSE MACHINE OPERATOR HELPER) Hemoglobin 12.7 11.6 - 15.0 g/dL 04/08/2022 8:21 AM PLISSE MACHINE OPERATOR HELPER RDWG Hematocrit 40.7 35.5 - 44.9 % 04/08/2022 8:21 AM PLISSE MACHINE OPERATOR HELPER RDWG Erythrocytes 4.23 3.92 - 5.13 x10(12)/L 04/08/2022 8:21 AM PLISSE MACHINE OPERATOR HELPER RDWG MCV 96.2 78.2 - 97.9 fL 04/08/2022 8:21 AM PLISSE MACHINE OPERATOR HELPER RDWG RBC Distrib Width 13.7 12.2 - 16.1 % 04/08/2022 8:21 AM PLISSE MACHINE OPERATOR HELPER RDWG Platelet Count 181 157 - 371 x10(9)/L 04/08/2022 8:21 AM PLISSE MACHINE OPERATOR HELPER RDWG Leukocytes 7.8 3.4 - 9.6 x10(9)/L 04/08/2022 8:21 AM PLISSE MACHINE OPERATOR HELPER RDWG Neutrophils 5.77 1.56 - 6.45 x10(9)/L 04/08/2022 8:21 AM PLISSE MACHINE OPERATOR HELPER RDWG Lymphocytes 1.23 0.95 - 3.07 x10(9)/L 04/08/2022 8:21 AM PLISSE MACHINE OPERATOR HELPER RDWG Monocytes 0.66 0.26 - 0.81 x10(9)/L 04/08/2022 8:21 AM PLISSE MACHINE OPERATOR HELPER RDWG Eosinophils 0.14 0.03 - 0.48 x10(9)/L 04/08/2022 8:21 AM PLISSE MACHINE OPERATOR HELPER RDWG Basophils 0.03 0.01 - 0.08 x10(9)/L 04/08/2022 8:21 AM PLISSE MACHINE OPERATOR HELPER RDWG Blood (Blood, Venous) 04/08/2022 8:05 AM PLISSE MACHINE OPERATOR HELPER 04/08/2022 8:17 AM PLISSE MACHINE OPERATOR HELPER Mari Noguera M.D. LAB BLOOD ADD-ON [facility] [address] [place] [address], [facility] [place] [address] [place] [address] documented in this encounter Visit Diagnoses Diagnosis Multiple Myeloma Not Having Achieved Remission (HCC) documented in this encounter Care Teams Healthcare Receptionist Relationship Specialty Start Date End Date Elsewhere, Pcp PCP - General Internal Medicine 04/01/22 documented as of this encounter
--- OUTSIDE RECORDS SUMMARY | 2023-03-08 08:58 | XMS_ITS | Encounter Summary ---
Author Name Unknown Organization [facility] Address [address] [place] [address] Care Team Providers Care Home Care Associate Name Role Phone Elsewhere, Pcp Primary Care Provider Unavailabl e Reason for Visit * Reason Comments Outpatient Infusion * Episode Based Medications (Routine) - Authorized Specialty Diagnoses / Procedures Referred By Contrach t Referred To Contact Diagnoses Multiple Myeloma Not Having Achieved Remission (HCC) Procedures AR ONDANSETRON HCL INJECTION AR DARATUMUMAB, HYALURONIDASE AR BORTEZOMIB INJECTION 1,800 mg on Day 1, 8, 15, 22 for cycles 1 & 2, Day 1, 15 3-6, Day 1 for cycle 7 / 28 day cycles / 17 total visits Mari Noguera M.D. [address] [place] [address] [facility] Region Referral ID Status Reason Start Date Expiration Date V isits Requested Visits Authorized [id number] Authorized 05/28/2021 02/27/2024 31 31 Encounter Details Date Type Department Care Team (Late st Contact Info) Description 04/22/2022 2:15 PM COOK HELPER PASTRY Infusion Department of Infusion Therapy in [address] [phone] Mari Noguera M.D. [address] [place] [phone] Multiple Myeloma Not Having Achieved Remission [...] How often do you attend chur or yarsani services? 1 to 4 times per year [...] Date Recorded PHQ-2 Score 4 11/18/2021 [facility] - Occupational Stress Questionnaire Answer Date [...] Sign Reading Time Taken Comments Blood Pressure 188/91 04/22/2022 1:29 PM COOK HELPER PASTRY Pt planning to see PCP Pulse 84 04/22/2022 1:29 PM COOK HELPER PASTRY Temperature 36.2 ??C (97.2 ??F) 04/22/2022 1 :29 PM COOK HELPER PASTRY Respiratory Rate 20 04/22/2022 1:29 PM COOK HELPER PASTRY Oxygen Saturation 97% 04/22/2022 1:2 9 PM COOK HELPER PASTRY Inhaled Oxygen Concentration - - Weight - - Height - - Body Mass Index - - documented in this encounter Plan of Treatment Upcoming Encounters Date Type Department Care Team (Late st Contact Info) Description 03/16/2023 10:30 AM COOK HELPER PASTRY Appointment Department of Laboratory Medicine in [address] [phone] Mari Noguera M.D. [address] [place] [phone] 03/17/2023 8:40 AM COOK HELPER PASTRY Office Visit Department of Oncology in [address] [phone] Mari [place] [phone] 03/17/2023 9:45 AM COOK HELPER PASTRY Infusion Department of Infusion Therapy in [address] [phone] Mari Noguera M.D. [address] [place] [phone] 03/31/2023 10:10 AM COOK HELPER PASTRY Appointment Department of Laboratory Medicine in [address] [phone] Mari Noguera M.D. [address] [place] [phone] 04/04/2023 8:20 AM COOK HELPER PASTRY Office Visit Department of Oncology in [address] [phone] Mari Noguera M.D. [address] [place] [phone] 04/04/2023 9:00 AM COOK HELPER PASTRY Infusion Department of Infusion Therapy in [address] [phone] Mari oNguera M.D. [address] [place] [phone] 04/13/2023 10:10 AM COOK HELPER PASTRY Appointment Department of Laboratory Medicine in [address] [phone] Mari Noguera M.D. [address] [place] [phone] 04/14/2023 9:00 AM COOK HELPER PASTRY Infusion Department of Infusion Therapy in [address] [phone] Mari Noguera M.D. [address] [place] [phone] documented as of this encounter Visit Diagnoses [...] BSA from Measured weight), subcutaneous, Once, On Mon04/22/22 at 1330, For 1 dose, Rotate injection site. Given 04/22/2022 2:04 PM COOK HELPER PASTRY 2.5 mg Right Upper Abdomen documented in this encounter Care Teams Home Care Associate Relationship Specialty Start Date End Date Elsewhere, Pcp PCP - General Internal Medicine 04/01/22 documented as of this encounter
--- OUTSIDE RECORDS SUMMARY | 2023-03-08 08:59 | XMS_ITS | Encounter Summary ---
Author Name Unknown Organization [facility] Address [address] [place] [address] Care Team Providers Care Lamination Technician Name Role Phone Unavailable Primary Care Provider Unavailabl e Reason for Referral * Outpatient (Routine) - Authorized Specialty Diagnoses / Procedures Referred By Guillermina t Referred To Contact Video Medicine Diagnoses COVID-19 Infection Consuelo Landa APRN, C.N.P., D.N.P. [address] [place] [address] [facility] Region Referral ID Status Reason Start Date Expiration Date V isits Requested Visits Authorized [id number] Authorized 03/25/2022 03/25/[address] AGENT Encounter Details Date Type Department Care Team (Late st Contact Info) Description 03/23/2022 12:00 [address] RAILROAD PASSENGER AGENT Infusion Department of Infusion Therapy in [place], [place] [address] [place] [address] Evelyn Rivera, YaryOAbraham [address] [place] [place] [phone] COVID-19 Infection (Primary Dx) Social History Tobacco Use Types [...] any clubs o r organizations such as adventism groups, unions, fraternal or athletic groups, or [...] Answer Date Recorded PHQ-2 Score 4 11/18/2021 [facility] - Occupational Stress Questionnaire Answer [...] Sign Reading Time Taken Comments Blood Pressure 162/75 03/23/2022 2:46 PM RAILROAD PASSENGER AGENT Pulse 56 03/23/2022 2:46 PM RAILROAD PASSENGER AGENT Temperature 36.7 ??C (98.1 ??F) 03/23/2022 2:46 PM CS T Respiratory Rate 16 03/23/2022 1:44 PM RAILROAD PASSENGER AGENT Oxygen Saturation 97% 03/23/2022 2:46 PM RAILROAD PASSENGER AGENT Inhaled Oxygen Concentration - - Weight - - Height - - Body Mass Index - - documented in this encounter Progress Notes * Cesario Valdovinos R.N. - 03/23/2022 12:00 PM CST Patient admitted to COVID Unit for unit of Covid Convalescent plasma. Tolerated the infusion without difficulty. Vital signs remained stable, and patient was discharged home in no acute distress following infusion. Patient was advised to call back to this [facility] infusion number [phone] or [facility] Infusion if not feeling any relief. 48 hour virtual follow up was scheduled for patient . Patient verbalized understanding, with no further questions. ROAD PASSENGER AGENT documented in this encounter Miscellaneous Notes * Addendum Note - Jane Arellano R.N. - 03/23/2022 12:00 PM CSTAddended by: JANE ARELLANO on: 03/25/2022 10:54 AM Modules accepted: Orders ROAD PASSENGER AGENT documented in this encounter Plan of Treatment Upcoming Encounters Date Type Department Care Team (Late st Contact Info) Description 03/16/2023 10:30 AM RAILROAD PASSENGER AGENT Appointment Department of Laboratory Medicine in [address] [place] [address] Mari Noguera M.D. [address] [place] [phone] 03/17/2023 8:40 AM RAILROAD PASSENGER AGENT Office Visit Department of Oncology in [address] [place] [phone] Mari Noguera M.D. [address] [place] [phone] 03/17/2023 9:45 AM RAILROAD PASSENGER AGENT Infusion Department of Infusion Therapy in [address] [place] [phone] Mari Noguera M.D. [address] [place] [phone] 03/31/2023 10:10 AM RAILROAD PASSENGER AGENT Appointment Department of Laboratory Medicine in [address] [place] [address] Mari Noguera M.D. [address] [place] [phone] 04/04/2023 8:20 AM RAILROAD PASSENGER AGENT Office Visit Department of Oncology in [address] [place] [address] Mari Noguera M.D. [address] [place] [phone] 04/04/2023 9:00 AM RAILROAD PASSENGER AGENT Infusion Department of Infusion Therapy in [address] [place] [phone] Mari Noguera M.D. [address] [place] [phone] 04/13/2023 10:10 AM RAILROAD PASSENGER AGENT Appointment Department of Laboratory Medicine in [place], [place] [address] [facility] [place] [phone] Mari Noguera M.D. [address] [place] [phone] 04/14/2023 9:00 AM RAILROAD PASSENGER AGENT Infusion Department of Infusion Therapy in [address] [phone] Mari Noguera M.D. [address] [place] [phone] Pending Results Name Type Priority Associated Diagnoses Date /Time Prepare Fresh Frozen Plasma : 1 Units Blood Bank Routine COVID-19 Infection 03/23/2022 12:40 PM RAILROAD PASSENGER AGENT Scheduled Referrals Name Type Priority Associated Diagnoses Orde r Schedule Video anyplace visit Outpatient Referral Routine COVID-19 Infection Expected: 03/27/2022, Expires: 04/08/2022 documented as of this encounter Procedures Procedure Name Priority Date/Time Associated Diagnosis Comments TRANSFUSE [id number] CONVALESCENT PLASMA Routine 03/23/2022 1:25 PM RAILROAD PASSENGER AGENT COVID-19 Infection PREPARE FRESH FROZEN PLASMA Routine 03/23/2022 12:40 PM RAILROAD PASSENGER AGENT COVID-19 Infection documented in this encounter Results * Transfuse Ffwx-LZPB-[id number]-2 Convalescent Plasma :Xfsn-JYSM-JnR-2 Convalescent Plasma; 180 mL/hr (03/23/2022 2:49 PM RAILROAD PASSENGER AGENT) Evelyn Rivera D.O. BLOOD TRANSFUSION OR DERABLES * Transfuse Cqqz-HDHB-WvJ-2 Convalescent Plasma :Eock-IJCG-HsY-2 Convalescent Plasma; 180 mL/hr, 1 Units (03/23/2022 2:49 PM RAILROAD PASSENGER AGENT) Evelyn Rivera D.O. BLOOD TRANSFUSION OR DERABLES documented in this encounter Visit Diagnoses Diagnosis COVID-19 Infection- Primary documented in this encounter Additional Health Concerns Infection Onset Date Last Indicated Resolved Time COVID19 03/19/2022 03/19/2022 04/08/2022 5:08 AM RAILROAD PASSENGER AGENT documented as of this encounter
--- OUTSIDE RECORDS SUMMARY | 2023-03-08 08:59 | XMS_ITS | Encounter Summary ---
Author Name Unknown Organization [facility] Address [address] [place] [address] Care Team Providers Care Whip Sawyer Name Role Phone Elsewhere, Pcp Primary Care Provider Unavailabl e Reason for Referral * Outpatient (Routine) - Closed Specialty Diagnoses / Procedures Referred By Guillermina zamora Referred To Contact Oncology Mari Noguera M.D. [address] [place] [address] [facility] Region Referral ID Status Reason Start Date Expiration Date Visits Re quested Visits Authorized [id number] Closed 03/23/2022 03/22/2025 1 1 CHER FEEDER Encounter Details Date Type Department Care Team (Late st Contact Info) Description 03/23/2022 Orders Only Department of Oncology in [place], [place] [address] [place] [phone] Anna Rosa RMaría [address] [place] [address] Social History Tobacco Use Types Packs/Day Years [...] any clubs o r organizations such as oriental orthodox groups, unions, fraternal or athletic groups, [...] 4 11/18/2021 [facility] - [...] st Contact Info) Description 03/16/2023 10:30 AM STITCHER FEEDER Appointment Department of Laboratory Medicine in [address] [place] [address] Mari Noguera M.D. [address] [place] [phone] 03/17/2023 8:40 AM STITCHER FEEDER Office Visit Department of Oncology in [address] [phone] Mari Noguera M.D. [address] [place] [phone] 03/17/2023 9:45 AM STITCHER FEEDER Infusion Department of Infusion Therapy in [address] [phone] Mari Noguera M.D. [address] [place] [phone] 03/31/2023 10:10 AM STITCHER FEEDER Appointment Department of Laboratory Medicine in [address] [place] [phone] Mari Noguera M.D. [address] [place] [phone] 04/04/2023 8:20 AM STITCHER FEEDER Office Visit Department of Oncology in [address] [phone] Mari Noguera M.D. [address] [place] [phone] 04/04/2023 9:00 AM STITCHER FEEDER Infusion Department of Infusion Therapy in [address] [phone] Mari Noguera M.D. [address] [place] [phone] 04/13/2023 10:10 AM STITCHER FEEDER Appointment Department of Laboratory Medicine in [place] [address] [place] [address] Mari Noguera M.D. [address] [place] [phone] 04/14/2023 9:00 AM STITCHER FEEDER Infusion Department of Infusion Therapy in [place], [place] [address] [place] [phone] Mari Noguera M.D. [address] [place] [phone] Scheduled Referrals Name Type Priority Associated Diagnoses Orde r Schedule Oncology nurse visit (clinic) Outpatient Referral Routine Expected: 04/05/2022, Expires: 06/22/2023 documented as of this encounter Visit Diagnoses Not on filedocumented in this encounter Additional Health Concerns Infection Onset Date Last Indicated Resolved Time COVID19 03/19/2022 03/19/2022 04/08/2022 5:08 AM STITCHER FEEDER documented as of this encounter Care Teams Whip Sawyer Relationship Specialty Start Date End Date Elsewhere, Pcp PCP - General Internal Medicine 04/01/22 documented as of this encounter
--- OUTSIDE RECORDS SUMMARY | 2023-03-08 08:59 | XMS_ITS | Encounter Summary ---
Author Name Unknown Organization [facility] Address [address] [place] [address] Care Team Providers Care Eyelet Machine Operator Name Role Phone Unavailable Primary Care Provider Unavailabl e Reason for Visit * Reason Onset Date Comments COVID-19 Remote Patient Monitoring 03/23/2022 Intake Assessment 03/23/2022 Encounter Details Date Type Department Care Team (Late st Contact Info) Description 03/23/2022 Remote Monitoring Remote Patient Monitoring [facility] [address] [place] [address] Rosmery Dailey, R.N. COVID-19 Remote Patient Monitoring; Intake Assessment Social History Tobacco Use Types Packs/Day [...] Score 4 11/18/2021 [facility] Questionnaire Answer Date [...] as of this encounter Progress Notes * Rosmery Dailey R.N. - 03/23/2022 9:37 AM CST Reason for Today's Contact: Remote Patient Monitoring Respiratory Infection Intake Assessment Patient's length of time in the program is dependent on vital signs and symptoms but traditionally 1-2 weeks. General Health Assessment: Patient notes today that she is feeling better since diagnosed with a respiratory infection. Equipment Set up: RN reviewed the following items with the patient/caregiver related to Remote Patient Monitoring (RPM) program set up: Open equipment kit and follow setup instructions, test vital signs as soon as possible and at scheduled times on tablet, patient will receive a phone call with area code ([phone] or caller ID 'Stevinson' or [id number] or caller ID 'DocuSpeak') from [employer] if they don't test vital signs, importance of calling RPM nurses with any symptoms prior to equipment arrival, RN phone calls are from area code (502) and should be answered or call returned promptly to prevent additional calls, patient may retest vitals signs at any time if there was an error in equipment to limit phone calls from RPM RN: Yes Symptom Assessment: Home oxygen: No Room air SpO2 result: Not yet testing Today the patient reports the following symptoms: Dyspnea: Not present Cough: Unchanged. Patient reports productive cough: Yes, with clear sputum, Chest Pain or chest tightness: Not present Fever (>100.4oF): Never had Additional symptoms reported: Diarrhea: Unchanged. Patient is having diarrhea 2 times a day. Vomiting: Not present Dizzy or lightheaded: Not present Rhinorrhea/congestion: Unchanged Sore throat: Resolved Headache: Not present Patient Education: Confirmed that the patient has received and reviewed the 'RPM Program Quick Start User Guide'. The patient was given the opportunity to ask questions regarding the setup and use of the equipment. Reviewed the importance of not taking antipyretics 6 hours prior to their vital sign readings. Questions were addressed and subsequently answered. Patient verbalizes understanding that the Remote Monitoring Program is not an emergency response system, but rather a way for the care team to watch for trends in their vital signs. Cough and deep breathing exercises x 10 each hour while awake, Imodium/Loperamide per label instructions as needed for diarrhea, Encourage fluids - water, sports drinks, warm liquids with honey, or broth so that urine is light in color, Small meals frequently throughout the day, Alternate activity with rest, Begin using Remote Patient Monitoring equipment when kit arrives, Continue with twice a day vital signs while on program, Call Remote Patient Monitoring ([phone]) with questions or concerns, When to seek emergency care, and Please keep DocuSpeak phone close to you, turned on at all times with volume up and watch for inbound chat messages on the phone. Plan of Care/Next Steps: Recommendation: Home Care Patient is currently using supportive care measures of increasing fluid intake, rest, and over the counter medications. Concerns/questions: Patient has no questions or concerns. Patient agrees to continue vital sign monitoring. Reviewed emergency symptoms, red flags, and when to notify the healthcare team for new/worsening respiratory infection symptoms. RICT MEDICAL EXAMINER documented in this encounter Plan of Treatment Upcoming Encounters Date Type Department Care Team (Late st Contact Info) Description 03/16/2023 10:30 AM DISTRICT MEDICAL EXAMINER Appointment Department of Laboratory Medicine in [address] [address] Mari Noguera M.D. [address] [place] [phone] 03/17/2023 8:40 AM DISTRICT MEDICAL EXAMINER Office Visit Department of Oncology in [address] [address] Mari Noguera M.D. [address] [place] [phone] 03/17/2023 9:45 AM DISTRICT MEDICAL EXAMINER Infusion Department of Infusion Therapy in [address] [phone] Mari Noguera M.D. [address] [place] [phone] 03/31/2023 10:10 AM DISTRICT MEDICAL EXAMINER Appointment Department of Laboratory Medicine in [address] [address] Mari Noguera M.D. [address] [place] [phone] 04/04/2023 8:20 AM DISTRICT MEDICAL EXAMINER Office Visit Department of Oncology in [address] [place] [phone] Mari Noguera M.D. [address] [place] [phone] 04/04/2023 9:00 AM DISTRICT MEDICAL EXAMINER Infusion Department of Infusion Therapy in [address] [phone] Mari Noguera M.D. [address] [place] [phone] 04/13/2023 10:10 AM DISTRICT MEDICAL EXAMINER Appointment Department of Laboratory Medicine in [address] [place] [address] Mari Noguera M.D. [address] [place] [phone] 04/14/2023 9:00 AM DISTRICT MEDICAL EXAMINER Infusion Department of Infusion Therapy in [address] [phone] Mari Noguera M.D. [address] [place] [phone] documented as of this encounter Visit Diagnoses Not on filedocumented in this encounter Additional Health Concerns Infection Onset Date Last Indicated Resolved Time COVID19 03/19/2022 03/19/2022 04/08/2022 5:08 AM DISTRICT MEDICAL EXAMINER documented as of this encounter
--- OUTSIDE RECORDS SUMMARY | 2023-03-08 08:59 | XMS_ITS | Encounter Summary ---
Author Name Unknown Organization [facility] Address [address] [place] [address] Care Team Providers Care Programmer Engineering And Scientific Name Role Phone Unavailable Primary Care Provider Unavailabl e Reason for Visit * Outpatient (Routine) - Authorized Specialty Diagnoses / Procedures Referred By Guillermina zamora Referred To Contact Video Medicine Diagnoses COVID-19 Infection Evelyn Rivera D.O. [address] [place] [address] [facility] Referral ID Status Reason Start Date Expiration Date V isits Requested Visits Authorized [id number] Authorized 03/23/2022 03/23/2023 1 1 Encounter Details Date Type Department Care Team (Late st Contact Info) Description 03/25/2022 10:00 AM RURAL ROUTE MAIL CARRIER Telemedicine Department of Family Medicine, [address] [address] Evelyn Rivera D.OAbraham [address] [place] [address] Consuelo Landa APRN, C.N.P., D.N.P. [address] [place] [phone] COVID-19 Infection Social History Tobacco Use Types Packs/Day Years [...] 11/18/2021 [facility] - Occupational Stress Questionnaire Answer [...] as of this encounter Progress Notes * Consuelo Landa APRN, C.N.Oneal., D.N.P. - 03/25/2022 10:00 AM CST Patient no showed for her CPP FU visit this morning. No charge. L ROUTE MAIL CARRIER documented in this encounter Plan of Treatment Upcoming Encounters Date Type Department Care Team (Late st Contact Info) Description 03/16/2023 10:30 AM RURAL ROUTE MAIL CARRIER Appointment Department of Laboratory Medicine in [address] [address] Mari Noguera M.D. [address] [place] [phone] 03/17/2023 8:40 AM RURAL ROUTE MAIL CARRIER Office Visit Department of Oncology in [address] [phone] Mari Noguera M.D. [address] [place] [phone] 03/17/2023 9:45 AM RURAL ROUTE MAIL CARRIER Infusion Department of Infusion Therapy in [address] [phone] Mari Noguera M.D. [address] [place] [phone] 03/31/2023 10:10 AM RURAL ROUTE MAIL CARRIER Appointment Department of Laboratory Medicine in [address] [place] [address] Mari Noguera M.D. [address] [place] [phone] 04/04/2023 8:20 AM RURAL ROUTE MAIL CARRIER Office Visit Department of Oncology in [address] [address] Mari Noguera M.D. [address] [place] [phone] 04/04/2023 9:00 AM RURAL ROUTE MAIL CARRIER Infusion Department of Infusion Therapy in [address] [phone] Mari Noguera M.D. [address] [place] [phone] 04/13/2023 10:10 AM RURAL ROUTE MAIL CARRIER Appointment Department of Laboratory Medicine in [address] [place] [address] Mari Noguera M.D. [address] [place] [phone] 04/14/2023 9:00 AM RURAL ROUTE MAIL CARRIER Infusion Department of Infusion Therapy in [address] [phone] Mari Noguera M.D. [address] [place] [phone] documented as of this encounter Visit Diagnoses Diagnosis COVID-19 Infection documented in this encounter Additional Health Concerns Infection Onset Date Last Indicated Resolved Time COVID19 03/19/2022 03/19/2022 04/08/2022 5:08 AM RURAL ROUTE MAIL CARRIER documented as of this encounter
--- OUTSIDE RECORDS SUMMARY | 2023-03-08 08:59 | XMS_ITS | Encounter Summary ---
Author Name Unknown Organization [facility] Address [address] [place] [address] Care Team Providers Care Chin Strap Sewer Name Role Phone Unavailable Primary Care Provider Unavailabl e Reason for Visit * Outpatient (Routine) - Authorized Specialty Diagnoses / Procedures Referred By Guillermina zamora Referred To Contact Video Medicine Diagnoses COVID-19 Infection Consuelo Landa APRN, C.N.P., D.N.P. [address] [place] [address] [facility] Region Referral ID Status Reason Start Date Expiration Date V isits Requested Visits Authorized [id number] Authorized 03/25/2022 03/25/2023 1 1 Encounter Details Date Type Department Care Team (Late st Contact Info) Description 03/25/2022 1:00 PM COMPOSITION STONE APPLICATOR Telemedicine Department of Family Medicine, [address] in [place], [place] [address] [place] [address] Consuelo Landa APRN, C.N.P., D.N.P. [address] [place] [address] COVID-19 Infection Social History Tobacco Use Types [...] do you attend [facility] or worship services? 1 to 4 times per year 06/11/2021 Do you belong to any clubs o r organizations such as caodaism groups, unions, fraternal or athletic groups, or [...] this encounter Progress Notes * Consuelo Landa APRN C.N.P., D.N.P. - 03/25/2022 1:00 PM CST SUBJECTIVE Ms. Melendez tested positive for COVID-19. The Covid-19 Infection flag in the [place] Chart is accurately reflecting COVID- 19 status. [facility], in collaboration with the [place] [facility], is currently able to offer Paxlovid or Molnupiravir to symptomatic patients who have symptoms < or =5 days respectively and aCAST >=1. Remdesivir is available for patients at high risk of progression who are unable to take Paxlovid. COVID Convalescent Plasma is available for patients with B-Cell depleting diagnosis or on B-Cell depleting medications. Based on the information available to me in [facility], the patient is symptomatic and on day=6 and has aMASS=12. The patient is immune compromised. Assessment and Plan Patient was identified as immunosuppressed and b cell depleted based on diagnosis of Multiple Myeloma. [facility] the recommended treatment for this group- Paxlovid and convalescent plasma. The patient received COVID convalescent plasma on date 03-23-22. Today, the patient reports feeling much improved They feel they would like to hold off on receiving anymore treatments at this time. They have our number [phone] if their symptoms change or they feel as they would benefit from another unit of Plasma. Total visit time 5 minutes Consuelo Landa APRN, C.N.P., D.N.P. [place] COVID Care Team [facility] and [facility] OSITION STONE APPLICATOR documented in this encounter Plan of Treatment Upcoming Encounters Date Type Department Care Team (Late st Contact Info) Description 03/16/2023 10:30 AM COMPOSITION STONE APPLICATOR Appointment Department of Laboratory Medicine in [address] [place] [address] Mari Noguera M.D. [address] [place] [phone] 03/17/2023 8:40 AM COMPOSITION STONE APPLICATOR Office Visit Department of Oncology in [address] [place] [address] Mari Noguera M.D. [address] [place] [phone] 03/17/2023 9:45 AM COMPOSITION STONE APPLICATOR Infusion Department of Infusion Therapy in [address] [place] [address] Mari Noguera M.D. [address] [place] [phone] 03/31/2023 10:10 AM COMPOSITION STONE APPLICATOR Appointment Department of Laboratory Medicine in [address] [place] [address] Mari Noguera M.D. [address] [place] [phone] 04/04/2023 8:20 AM COMPOSITION STONE APPLICATOR Office Visit Department of Oncology in [address] [place] [address] Mari Noguera M.D. [address] [place] [phone] 04/04/2023 9:00 AM COMPOSITION STONE APPLICATOR Infusion Department of Infusion Therapy in [address] [place] [phone] Mari Noguera M.D. [address] [place] [phone] 04/13/2023 10:10 AM COMPOSITION STONE APPLICATOR Appointment Department of Laboratory Medicine in [address] [facility] [place] [address] Mari Noguera M.D. [address] [place] [phone] 04/14/2023 9:00 AM COMPOSITION STONE APPLICATOR Infusion Department of Infusion Therapy in [address] [phone] Mari Noguera M.D. [address] [place] [phone] documented as of this encounter Visit Diagnoses Diagnosis COVID-19 Infection documented in this encounter Additional Health Concerns Infection Onset Date Last Indicated Resolved Time COVID19 03/19/2022 03/19/2022 04/08/2022 5:08 AM COMPOSITION STONE APPLICATOR documented as of this encounter
--- OUTSIDE RECORDS SUMMARY | 2023-03-08 08:59 | XMS_ITS | Encounter Summary ---
Author Name Unknown Organization [facility] Address [address] [place] [address] Care Team Providers Care Survival Specialist Name Role Phone Elsewhere, Pcp Primary Care Provider Unavailabl e Encounter Details Date Type Department Care Team (Late st Contact Info) Description 03/23/2022 Orders Only Department of Oncology in [place], [place] [address] [place] [phone] Mari Noguera M.D. [address] [place] [phone] Multiple Myeloma Not Having Achieved [...] 06/11/2021 How often do you attend [facility] or mormon services? 1 to 4 times [...] Score 4 11/18/2021 [facility] - Occupational Stress Questionnaire Answer Date [...] st Contact Info) Description 03/16/2023 10:30 AM FIXING CARPENTER Appointment Department of Laboratory Medicine in [place] [address] [place] [address] Mari Noguera M.D. [address] [place] [phone] 03/17/2023 8:40 AM FIXING CARPENTER Office Visit Department of Oncology in [place] [address] [facility] [address] Mari Noguera M.D. [address] [place] [phone] 03/17/2023 9:45 AM FIXING CARPENTER Infusion Department of Infusion Therapy in [address] [place] [address] Mari Noguera M.D. [address] [place] [phone] 03/31/2023 10:10 AM FIXING CARPENTER Appointment Department of Laboratory Medicine in [address] [phone] Mari Noguera M.D. [address] [place] [phone] 04/04/2023 8:20 AM FIXING CARPENTER Office Visit Department of Oncology in [address] [phone] Mari Noguera M.D. [address] [place] [phone] 04/04/2023 9:00 AM FIXING CARPENTER Infusion Department of Infusion Therapy in [address] [phone] Mari Noguera M.D. [address] [place] [phone] 04/13/2023 10:10 AM FIXING CARPENTER Appointment Department of Laboratory Medicine in [address] [phone] Mari Noguera M.D. [address] [place] [phone] 04/14/2023 9:00 AM FIXING CARPENTER Infusion Department of Infusion Therapy in [address] [phone] Mari Noguera M.D. [address] [place] [phone] documented as of this encounter Results * (ABNORMAL) CBC, Chemotherapy, No Alerts (04/22/2022 12:59 PM FIXING CARPENTER) [facility] Hemoglobin 13.0 11.6 - 15.0 g/dL 04/22/2022 1:20 PM FIXING CARPENTER [facility] Platelet Count 206 157 - 371 x10(9)/L 04/22/2022 1:20 PM FIXING CARPENTER [facility] Leukocytes 9.3 3.4 - 9.6 x10(9)/L 04/22/2022 1:20 PM FIXING CARPENTER [facility] Neutrophils 7.14(H) 1.56 - 6.45 x10(9)/L 04/22/2022 1:20 PM FIXING CARPENTER [facility] Blood (Blood, Venous) 04/22/2022 12:59 PM FIXING CARPENTER 04/22/2022 1:01 PM FIXING CARPENTER Mari Noguera M.D. LAB BLOOD ADD-ON [facility] [address] [place] [address], [facility] in [address] [phone] * Comprehensive Metabolic Panel (04/08/2022 8:06 AM FIXING CARPENTER) [facility] Potassium, P 4.2 3.6 - 5.2 mmol/L 04/08/2022 8:47 AM FIXING CARPENTER [facility] Sodium, P 139 135 - 145 mmol/L 04/08/2022 8:47 AM FIXING CARPENTER [facility] Chloride, P 99 98 - 107 mmol/L 04/08/2022 8:47 AM FIXING CARPENTER [facility] Bicarbonate, P 29 22 - 29 mmol/L 04/08/2022 8:47 AM FIXING CARPENTER [facility] Anion Gap, P 11 7 - 15 04/08/2022 8:47 AM FIXING CARPENTER [facility] BUN (Blood Urea Nitrogen), P 20 6 - 21 mg/dL 04/08/2022 8:47 AM FIXING CARPENTER [facility] Creatinine 0.93 0.59 - 1.04 mg/dL 04/08/2022 8:47 AM FIXING CARPENTER [facility] Estimated GFR (eGFR) 64 >=60 mL/min/BS A 04/08/2022 8:47 AM FIXING CARPENTER [facility] Comment: Estimated GFR calculated using the 2020 CKD_EPI creatinine equation. Calcium, Total, P 9.8 8.8 - 10.2 mg/dL 04/08/2022 8:47 AM FIXING CARPENTER [facility] Glucose, P 108 70 - 140 mg/dL 04/08/2022 8:47 AM FIXING CARPENTER [facility] Protein, Total, P 6.8 6.3 - 7.9 g/dL 04/08/2022 8:47 AM FIXING CARPENTER [facility] Albumin, P 4.3 3.5 - 5.0 g/dL 04/08/2022 8:47 AM FIXING CARPENTER [facility] Aspartate Aminotransferase (AST), P 19 8 - 43 U/L 04/08/2022 8:47 AM FIXING CARPENTER [facility] Alkaline Phosphatase, P 78 35 - 104 U/L 04/08/2022 8:47 AM FIXING CARPENTER [facility] Alanine Aminotransferase (ALT), P 19 7 - 45 U/L 04/08/2022 8:47 AM FIXING CARPENTER [facility] Bilirubin, Total, P 0.3 <=1.2 mg/dL 04/08/2022 8:47 AM FIXING CARPENTER [facility] Blood (Blood, Venous) 04/08/2022 8:06 AM FIXING CARPENTER 04/08/2022 8:13 AM FIXING CARPENTER Mari Noguera M.D. LAB BLOOD ADD-ON [facility] [place] [address] [place] [address], [facility] in [place] [address] [place] [address] * CBC with Differential, Blood (04/08/2022 8:05 AM FIXING CARPENTER) Hemoglobin 12.7 11.6 - 15.0 g/dL 04/08/2022 8:21 AM FIXING CARPENTER [facility] Hematocrit 40.7 35.5 - 44.9 % 04/08/2022 8:21 AM FIXING CARPENTER [facility] Erythrocytes 4.23 3.92 - 5.13 x10(12)/L 04/08/2022 8:21 AM FIXING CARPENTER [facility] MCV 96.2 78.2 - 97.9 fL 04/08/2022 8:21 AM FIXING CARPENTER [facility] RBC Distrib Width 13.7 12.2 - 16.1 % 04/08/2022 8:21 AM FIXING CARPENTER [facility] Platelet Count 181 157 - 371 x10(9)/L 04/08/2022 8:21 AM FIXING CARPENTER [facility] Leukocytes 7.8 3.4 - 9.6 x10(9)/L 04/08/2022 8:21 AM FIXING CARPENTER [facility] Neutrophils 5.77 1.56 - 6.45 x10(9)/L 04/08/2022 8:21 AM FIXING CARPENTER [facility] Lymphocytes 1.23 0.95 - 3.07 x10(9)/L 04/08/2022 8:21 AM FIXING CARPENTER [facility] Monocytes 0.66 0.26 - 0.81 x10(9)/L 04/08/2022 8:21 AM FIXING CARPENTER [facility] Eosinophils 0.14 0.03 - 0.48 x10(9)/L 04/08/2022 8:21 AM FIXING CARPENTER [facility] Basophils 0.03 0.01 - 0.08 x10(9)/L 04/08/2022 8:21 AM FIXING CARPENTER [facility] Blood (Blood, Venous) 04/08/2022 8:05 AM FIXING CARPENTER 04/08/2022 8:17 AM FIXING CARPENTER Mari Noguera M.D. LAB BLOOD ADD-ON [facility] [address] [place] [address], [facility] in [place] [address] [place] [address] documented in this encounter Visit Diagnoses Diagnosis Multiple Myeloma Not Having Achieved Remission (HCC)- Primary documented in this encounter Additional Health Concerns Infection Onset Date Last Indicated Resolved Time COVID19 03/19/2022 03/19/2022 04/08/2022 5:08 AM FIXING CARPENTER documented as of this encounter Care Teams Survival Specialist Relationship Specialty Start Date End Date Elsewhere, Pcp PCP - General Internal Medicine 04/01/22 documented as of this encounter
--- OUTSIDE RECORDS SUMMARY | 2023-03-08 08:59 | XMS_ITS | Encounter Summary ---
Author Name Unknown Organization [facility] Address [address] [place] [address] Care Team Providers Care Robotic Welding Operator Name Role Phone Unavailable Primary Care Provider Unavailabl e Reason for Visit * Reason Comments Outpatient Infusion Lab draw only Encounter Details Date Type Department Care Team (Late st Contact Info) Description 03/23/2022 11:30 AM ANNOUNCER Lab Department of Infusion Therapy in [place], [place] [address] [place] [phone] Evelyn Rivera, YaryOAbraham [address] [place] [phone] COVID-19 Infection Social History Tobacco Use Types [...] often do you attend [facility] or christian services? 1 to 4 [...] Reading Time Taken Comments Blood Pressure 188/91 03/23/2022 11:29 AM ANNOUNCER Pulse 66 03/23/2022 11:29 AM ANNOUNCER Temperature 36.6 ??C (97.9 ??F) 03/23/2022 11:[address] Respiratory Rate 18 03/23/2022 11:29 AM ANNOUNCER Oxygen Saturation 96% 03/23/2022 11:29 AM ANNOUNCER Inhaled Oxygen Concentration - - Weight - - Height - - Body Mass Index - - documented in this encounter Plan of Treatment Upcoming Encounters Date Type Department Care Team (Late st Contact Info) Description 03/16/2023 10:30 AM ANNOUNCER Appointment Department of Laboratory Medicine in [address] [phone] Mari Noguera M.D. [address] [place] [phone] 03/17/2023 8:40 AM ANNOUNCER Office Visit Department of Oncology in [address] [phone] Mari Noguera M.D. [address] [place] [phone] 03/17/2023 9:45 AM ANNOUNCER Infusion Department of Infusion Therapy in [address] [phone] Mari Noguera M.D. [address] [place] [phone] 03/31/2023 10:10 AM ANNOUNCER Appointment Department of Laboratory Medicine in [address] [phone] Mari Noguera M.D. [address] [place] [phone] 04/04/2023 8:20 AM ANNOUNCER Office Visit Department of Oncology in [address] [phone] Mari Noguera M.D. [address] [place] [phone] 04/04/2023 9:00 AM ANNOUNCER Infusion Department of Infusion Therapy in [address] [phone] Mari Noguera M.D. [address] [place] [phone] 04/13/2023 10:10 AM ANNOUNCER Appointment Department of Laboratory Medicine in [address] [place] [phone] Mari Noguera M.D. [address] [place] [phone] 04/14/2023 9:00 AM ANNOUNCER Infusion Department of Infusion Therapy in [address] [phone] Mari Noguera M.D. [address] [place] [phone] documented as of this encounter Procedures Procedure Name Priority Date/Time Associated Diagnosis Comments ABORH, RBC Routine 03/23/2022 12:01 PM ANNOUNCER COVID-19 Infection documented in this encounter Results * ABORh, RBC (03/23/2022 12:01 PM ANNOUNCER) ABO Group A 03/23/2022 12: 38 PM ANNOUNCER MKTO Rh Type NEG 03/23/2022 12: 38 PM ANNOUNCER MKTO Blood (Blood, Venous) 03/23/2022 12:01 PM ANNOUNCER 03/23/2022 12:04 PM ANNOUNCER Evelyn Rivera D.O. LAB BLOOD BANK TEST ORDERABLES [facility] [address] [place] [address], [facility] MKTO [facility] in [address] [address] documented in this encounter Visit Diagnoses Diagnosis COVID-19 Infection documented in this encounter Additional Health Concerns Infection Onset Date Last Indicated Resolved Time COVID19 03/19/2022 03/19/2022 04/08/2022 5:08 AM ANNOUNCER documented as of this encounter
--- OUTSIDE RECORDS SUMMARY | 2023-03-08 08:59 | XMS_ITS | Encounter Summary ---
Author Name Unknown Organization [facility] Address [address] [place] [address] Care Team Providers Care Lunch Truck Operator Name Role Phone Unavailable Primary Care Provider Unavailabl e Encounter Details Date Type Department Care Team (Late st Contact Info) Description 03/23/2022 Episode Changes Remote Patient Monitoring [facility] [address] [place] [address] Pratima Kline Social History Tobacco Use Types Packs/Day Years [...] often do you attend chur ch or jew services? 1 to 4 times [...] 11/18/2021 [facility] - [...] Contact Info) Description 03/16/2023 10:30 AM INFORMATION WRITER Appointment Department of Laboratory Medicine in [place] [address] [place] [phone] Mari Noguera M.D. [address] [place] [phone] 03/17/2023 8:40 AM INFORMATION WRITER Office Visit Department of Oncology in [address] [address] Mari Noguera M.D. [address] [place] [phone] 03/17/2023 9:45 AM INFORMATION WRITER Infusion Department of Infusion Therapy in [address] [place] [address] Mari Noguera M.D. [address] [place] [phone] 03/31/2023 10:10 AM INFORMATION WRITER Appointment Department of Laboratory Medicine in [address] [phone] Mari Noguera M.D. [address] [place] [phone] 04/04/2023 8:20 AM INFORMATION WRITER Office Visit Department of Oncology in [address] [place] [address] Mari Noguera M.D. [address] [place] [phone] 04/04/2023 9:00 AM INFORMATION WRITER Infusion Department of Infusion Therapy in [address] [place] [address] Mari Noguera M.D. [address] [place] [phone] 04/13/2023 10:10 AM INFORMATION WRITER Appointment Department of Laboratory Medicine in [address] [place] [address] Mari Noguera M.D. [address] [place] [phone] 04/14/2023 9:00 AM INFORMATION WRITER Infusion Department of Infusion Therapy in [place], [place] [address] [place] [phone] Mari Noguera M.D. [address] [place] [phone] documented as of this encounter Visit Diagnoses Not on filedocumented in this encounter Additional Health Concerns Infection Onset Date Last Indicated Resolved Time COVID19 03/19/2022 03/19/2022 04/08/2022 5:08 AM INFORMATION WRITER documented as of this encounter
--- OUTSIDE RECORDS SUMMARY | 2023-03-08 08:59 | XMS_ITS | Encounter Summary ---
Author Name Unknown Organization [facility] Address [address] [place] [address] Care Team Providers Care Mold Mechanic Name Role Phone Unavailable Primary Care Provider Unavailabl e Reason for Visit * Reason Onset Date Comments COVID-19 Remote Patient Monitoring 03/30/2022 Follow-up 03/30/2022 Encounter Details Date Type Department Care Team (Latest Contact Info) Description 03/30/2022 Remote Monitoring Remote Patient Monitoring [facility] [address] [place] [address] India Saunders, RAbrahamNAbraham [address] [place] [phone] COVID-19 Remote Patient Monitoring; Follow-up Social History Tobacco Use Types Packs/Day Years [...] How often do you attend chur or congregation services? 1 to 4 times [...] 11/18/2021 [facility] of Occupat ional Health [...] as of this encounter Progress Notes * India Saunders RAbrahamN. - 03/30/2022 10:40 AM CST Remote Monitoring Respiratory Infection Program Graduation Patient meets criteria for graduation for the Respiratory Infection Remote Monitoring program. Patient's vitals have been stable, symptoms improved and has been afebrile for at least 24 hours. Patient is knowledgeable about when to notify the care team with concerns/symptoms. The patient has been be directed to contact their primary care provider with any concerns/follow-up. Patient has the following follow-up with their PCP. Home oxygen: No Room air SpO2 result: 95% Today the patient reports the following symptoms: Dyspnea: Not present Cough: Improving Chest Pain or chest tightness: Not present Fever (>100.4oF): No change Patient report of date of last fever reducing medication: Taking as needed for knee pain Diarrhea: Improving Vomiting: Not present Dizzy or lightheaded: Not present Respiratory Infection Nurse Symptom Monitoring Questionnaire: No flowsheet data found. Next Steps: Patient informed of the remote monitoring equipment retrieval process. Patient agreed to call Remote Patient Monitoring nurse with any questions or concerns in the interim. SITOLOGIST documented in this encounter Plan of Treatment Upcoming Encounters Date Type Department Care Team (Late st Contact Info) Description 03/16/2023 10:30 AM PARASITOLOGIST Appointment Department of Laboratory Medicine in [address] [phone] Mari Noguera M.D. [address] [place] [phone] 03/17/2023 8:40 AM PARASITOLOGIST Office Visit Department of Oncology in [address] [phone] Mari Noguera M.D. [address] [place] [phone] 03/17/2023 9:45 AM PARASITOLOGIST Infusion Department of Infusion Therapy in [address] [phone] Mari Noguera M.D. [address] [place] [phone] 03/31/2023 10:10 AM PARASITOLOGIST Appointment Department of Laboratory Medicine in [address] [place] [phone] Mari Noguera M.D. [address] [place] [phone] 04/04/2023 8:20 AM PARASITOLOGIST Office Visit Department of Oncology in [address] [place] [phone] Mari Noguera M.D. [address] [place] [phone] 04/04/2023 9:00 AM PARASITOLOGIST Infusion Department of Infusion Therapy in [address] [phone] Mari Noguera M.D. [address] [place] [phone] 04/13/2023 10:10 AM PARASITOLOGIST Appointment Department of Laboratory Medicine in [address] [place] [phone] Mari Noguera M.D. [address] [place] [phone] 04/14/2023 9:00 AM PARASITOLOGIST Infusion Department of Infusion Therapy in [address] [phone] Mari Noguera M.D. [address] [place] [phone] documented as of this encounter Visit Diagnoses Not on filedocumented in this encounter Additional Health Concerns Infection Onset Date Last Indicated Resolved Time COVID19 03/19/2022 03/19/2022 04/08/2022 5:08 AM PARASITOLOGIST documented as of this encounter
--- OUTSIDE RECORDS SUMMARY | 2023-03-08 08:59 | XMS_ITS | Encounter Summary ---
Author Name Unknown Organization [facility] Address [address] [place] [address] Care Team Providers Care Millinery Copyist Name Role Phone Unavailable Primary Care Provider Unavailabl e Encounter Details Date Type Department Care Team (Late st Contact Info) Description 03/23/2022 Episode Changes Remote Patient Monitoring [facility] [address] [place] [address] Pratima Kline Social History Tobacco Use Types [...] Answer Date Recorded PHQ-2 Score 4 11/18/2021 [facility] of Occupat ional Health - Occupational [...] st Contact Info) Description 03/16/2023 10:30 AM VE TEACHER Appointment Department of Laboratory Medicine in [place] [address] [place] [phone] Mari Noguera M.D. [address] [place] [phone] 03/17/2023 8:40 AM VE TEACHER Office Visit Department of Oncology in [address] [phone] Mari Noguera M.D. [address] [place] [phone] 03/17/2023 9:45 AM VE TEACHER Infusion Department of Infusion Therapy in [address] [place] [address] Mari Noguera M.D. [address] [place] [phone] 03/31/2023 10:10 AM VE TEACHER Appointment Department of Laboratory Medicine in [address] [phone] Mari Noguera M.D. [address] [place] [phone] 04/04/2023 8:20 AM VE TEACHER Office Visit Department of Oncology in [address] [place] [address] Mari Noguera M.D. [address] [place] [phone] 04/04/2023 9:00 AM VE TEACHER Infusion Department of Infusion Therapy in [address] [place] [address] Mari Noguera M.D. [address] [place] [phone] 04/13/2023 10:10 AM VE TEACHER Appointment Department of Laboratory Medicine in [address] [place] [address] Mari Noguera M.D. [address] [place] [phone] 04/14/2023 9:00 AM VE TEACHER Infusion Department of Infusion Therapy in [place], [place] [address] [place] [phone] Mari Noguera M.D. [address] [place] [phone] documented as of this encounter Visit Diagnoses Not on filedocumented in this encounter Additional Health Concerns Infection Onset Date Last Indicated Resolved Time COVID19 03/19/2022 03/19/2022 04/08/2022 5:08 AM VE TEACHER documented as of this encounter
--- OUTSIDE RECORDS SUMMARY | 2023-03-08 08:59 | XMS_ITS | Encounter Summary ---
Author Name Unknown Organization [facility] Address [address] [place] [address] Care Team Providers Care School Psychology Professor Name Role Phone Unavailable Primary Care Provider Unavailabl e Reason for Visit * Reason Onset Date Comments Patient Education 03/23/2022 COVID and Chelsea ome letter/Terms of Service sent 03/23. Encounter Details Date Type Department Care Team (Late st Contact Info) Description 03/23/2022 Remote Monitoring Remote Patient Monitoring [facility] [address] [place] [address] Pratima Kline Patient Education (COVID and Welcome letter/Terms of Service sent 03/23.) Social History Tobacco Use Types Packs/Day Years [...] How often do you attend chur or denominational services? 1 to 4 times [...] Answer Date Recorded PHQ-2 Score 4 11/18/2021 [facility] Occupational Stress Questionnaire Answer Date [...] Contact Info) Description 03/16/2023 10:30 AM MATERIAL STOCKKEEPER YARD Appointment Department of Laboratory Medicine in [place] [address] [place] [phone] Mari Noguera M.D. [address] [place] [address] 03/17/2023 8:40 AM MATERIAL STOCKKEEPER YARD Office Visit Department of Oncology in [address] [place] [phone] Mari Noguera M.D. [facility] [place] [phone] 03/17/2023 9:45 AM MATERIAL STOCKKEEPER YARD Infusion Department of Infusion Therapy in [address] [place] [address] Mari Noguera M.D. [address] [place] [phone] 03/31/2023 10:10 AM MATERIAL STOCKKEEPER YARD Appointment Department of Laboratory Medicine in [address] [phone] Mari Noguera M.D. [address] [place] [phone] 04/04/2023 8:20 AM MATERIAL STOCKKEEPER YARD Office Visit Department of Oncology in [address] [place] [address] Mari Noguera M.D. [address] [place] [phone] 04/04/2023 9:00 AM MATERIAL STOCKKEEPER YARD Infusion Department of Infusion Therapy in [address] [phone] Mari Noguera M.D. [address] [place] [phone] 04/13/2023 10:10 AM MATERIAL STOCKKEEPER YARD Appointment Department of Laboratory Medicine in [address] [phone] Mari Noguera M.D. [address] [place] [phone] 04/14/2023 9:00 AM MATERIAL STOCKKEEPER YARD Infusion Department of Infusion Therapy in [place], [place] [address] [place] [phone] Mari Noguera M.D. [address] [place] [phone] documented as of this encounter Visit Diagnoses Not on filedocumented in this encounter Additional Health Concerns Infection Onset Date Last Indicated Resolved Time COVID19 03/19/2022 03/19/2022 04/08/2022 5:08 AM MATERIAL STOCKKEEPER YARD documented as of this encounter
--- OUTSIDE RECORDS SUMMARY | 2023-03-08 08:59 | XMS_ITS | Encounter Summary ---
Author Name Unknown Organization [facility] Address [address] [place] [address] Care Team Providers Care Marine Transport Professionals Name Role Phone Unavailable Primary Care Provider Unavailabl e Encounter Details Date Type Department Care Team (Late st Contact Info) Description 03/23/2022 Clinical Communication Department of Family Medicine in [place], [place] [address] [place] [address] Remedios Mir M.D. [address] [place] [phone] Social History Tobacco Use Types Packs/Day Years [...] 4 11/18/2021 [facility] Questionnaire Answer Date [...] st Contact Info) Description 03/16/2023 10:30 AM INTERNAL COMMUNICATIONS INTERN Appointment Department of Laboratory Medicine in [place] [address] [facility] [place] [place] [phone] Mari Noguera M.D. [address] [place] [phone] 03/17/2023 8:40 AM INTERNAL COMMUNICATIONS INTERN Office Visit Department of Oncology in [address] [place] [phone] Mari Noguera M.D. [address] [place] [phone] 03/17/2023 9:45 AM INTERNAL COMMUNICATIONS INTERN Infusion Department of Infusion Therapy in [address] [phone] Mari Noguera M.D. [address] [place] [phone] 03/31/2023 10:10 AM INTERNAL COMMUNICATIONS INTERN Appointment Department of Laboratory Medicine in [address] [address] Mari Noguera M.D. [address] [place] [phone] 04/04/2023 8:20 AM INTERNAL COMMUNICATIONS INTERN Office Visit Department of Oncology in [address] [phone] Mari Noguera M.D. [address] [place] [phone] 04/04/2023 9:00 AM INTERNAL COMMUNICATIONS INTERN Infusion Department of Infusion Therapy in [address] [phone] Mari Noguera M.D. [address] [place] [phone] 04/13/2023 10:10 AM INTERNAL COMMUNICATIONS INTERN Appointment Department of Laboratory Medicine in [address] [phone] Mari Noguera M.D. [address] [place] [phone] 04/14/2023 9:00 AM INTERNAL COMMUNICATIONS INTERN Infusion Department of Infusion Therapy in [place], [place] [address] [place] [phone] Mari Noguera M.D. [address] [place] [phone] documented as of this encounter Visit Diagnoses Not on filedocumented in this encounter Additional Health Concerns Infection Onset Date Last Indicated Resolved Time COVID19 03/19/2022 03/19/2022 04/08/2022 5:08 AM INTERNAL COMMUNICATIONS INTERN documented as of this encounter
--- OUTSIDE RECORDS SUMMARY | 2023-03-08 09:00 | XMS_ITS | Clinical Summary ---
Author Name Unknown Organization [facility] Address [place], [place] [address] Care Team Providers Care Manager International Name Role Phone Dustin Briones MD Primary Care Provider [phone] Allergies No known active allergies Medications Medication Sig Dispensed Refills Start Date End Date Status atenoloL (TENORMIN) 50 mg tablet TAKE 1 TABLET BY MOUTH TWICE DAILY 0 02/26/2019 Active atorvastatin (LIPITOR) 20 mg tablet Take 20 mg by mouth once daily. 0 07/16/2020 Active lisinopriL (PRINIVIL; ZESTRIL) 40 mg tablet TAKE 1 TABLET BY MOUTH EVERY MORNING IN ADDITION TO 20 MG TABLET AT BEDTIME 0 06/19/2020 Active lisinopriL (PRINIVIL; ZESTRIL) 20 mg tablet TAKE 1 TABLET BY MOUTH DAILY AT BEDTIME IN ADDITION TO 40 MG TABLET IN THE MORNING 0 06/19/2020 Active metFORMIN (GLUCOPHAGE) 500 mg tablet TAKE 1 TABLET BY MOUTH WITH BREAKFAST AND 2 TABLETS AT SUPPER 0 06/18/2020 Active NIFEdipine ER (ADALAT CC) 30 mg Extended-Release tablet Take 30 mg by mouth. 0 07/02/2020 Active Social History Tobacco Use Types Packs/Day Years Used Date Smoking Tobacco: Never Assessed Social Connections Answer Date Recorded Frequency of Communication with Friends and Fami ly Not on file 02/22/2021 Financial Resource Strain Answer Date R ecorded Difficulty of Paying Living Expenses Not on file 02/22/2021 Difficulty of Paying Living Expenses Not on file 02/22/2021 Sex and Gender Information Value Date Recorded Sex Assigned at Not on file Gender Identity Not on file Sexual Orientation Not on file Last Filed Vital Signs Vital Sign Reading Time Taken Comments Blood Pressure 141/71 09/01/2020 11:20 AM CDT Pulse 66 09/01/2020 12:27 PM CDT Temperature - - Respiratory Rate - - Oxygen Saturation - - Inhaled Oxygen Concentration - - Weight 96.2 kg (212 lb) 09/01/2020 11:20 AM CDT Height 157.5 cm (5' 2) 09/01/2020 11:20 AM CDT Body Mass Index 38.78 09/01/2020 11:20 AM CDT Plan of Treatment Health Maintenance Due Date Last Done Comments Tdap 10/09/1958 Depression screening for age 12+ 1959 BMI (ht and wt on same day) for age 18+ 10/09/1965 Hepatitis C screening for ag e 18-79 10/09/1965 Tetanus booster 1967 Colonoscopy through age 75 10/09/1992 Lipids for age 45-75 10/09/1992 Zoster (shingles) series for age 50+ (1 of 2) 10/09/1997 DEXA/DXA scan for age 65+ 10/09/2012 Medicare Wellness for age 65+ 10/09/2012 Pneumococcal series for age 65+ (1 of 1 - PCV) 10/09/2012 Influenza for age 65+ 10/28/2022 COVID-19 vaccine series (2022-24 season) 2022 09/05/2022, 01/13/2021, 04/13/2020, Additional history exists Care Teams Manager International Relationship Specialty Start Date End Date Dustin Briones MD PCP - General Family Practice 08/21/20
--- OUTSIDE RECORDS SUMMARY | 2023-03-08 09:00 | XMS_ITS | Encounter Summary ---
Author Name Unknown Organization [facility] Address [address] [place] [address] Care Team Providers Care Oven Equipment Repairer Name Role Phone Unavailable Primary Care Provider Unavailabl e Encounter Details Date Type Department Care Team (Late st Contact Info) Description 03/22/2022 Orders Only Department of Family Medicine in [place], [place] [address] [place] [address] Evelyn Rivera D.O. [address] [place] [phone] COVID-19 Infection Social History Tobacco Use Types [...] How often do you attend chur or taoist services? 1 to 4 times [...] Answer Date Recorded PHQ-2 Score 4 11/18/2021 [facility] of Occupat ional Health - [...] st Contact Info) Description 03/16/2023 10:30 AM GROUP LEADER Appointment Department of Laboratory Medicine in [place] [address] [place] [phone] Mari Noguera M.D. [address] [place] [address] 03/17/2023 8:40 AM GROUP LEADER Office Visit Department of Oncology in [address] [place] [phone] Mari Noguera M.D. [address] [place] [phone] 03/17/2023 9:45 AM GROUP LEADER Infusion Department of Infusion Therapy in [address] [address] Mari Noguera M.D. [address] [place] [phone] 03/31/2023 10:10 AM GROUP LEADER Appointment Department of Laboratory Medicine in [address] [phone] Mari Noguera M.D. [address] [place] [phone] 04/04/2023 8:20 AM GROUP LEADER Office Visit Department of Oncology in [address] [phone] Mari Noguera M.D. [address] [place] [phone] 04/04/2023 9:00 AM GROUP LEADER Infusion Department of Infusion Therapy in [address] [phone] Mari Noguera M.D. [address] [place] [phone] 04/13/2023 10:10 AM GROUP LEADER Appointment Department of Laboratory Medicine in [address] [phone] Mari Noguera M.D. [address] [place] [phone] 04/14/2023 9:00 AM GROUP LEADER Infusion Department of Infusion Therapy in [address] [phone] Mari Noguera M.D. [address] [place] [phone] documented as of this encounter Visit Diagnoses Diagnosis COVID-19 Infection documented in this encounter Additional Health Concerns Infection Onset Date Last Indicated Resolved Time COVID19 03/19/2022 03/19/2022 04/08/2022 5:08 AM GROUP LEADER documented as of this encounter
--- OUTSIDE RECORDS SUMMARY | 2023-03-08 09:00 | XMS_ITS | Encounter Summary ---
Author Name Unknown Organization [facility] Address [address] [place] [address] Care Team Providers Care Manager Digital Name Role Phone Unavailable Primary Care Provider Unavailabl e Reason for Referral * Outpatient (Routine) - Closed Specialty Diagnoses / Procedures Referred By Guillermina zamora Referred To Contact Hematology Oncology Mari Noguera M.D. [address] [place] [address] [facility] Region Referral ID Status Reason Start Date Expiration Date Visits Re quested Visits Authorized [id number] Closed 03/09/2022 03/08/2025 1 1 RONMENTAL PLANNING ENGINEER Encounter Details Date Type Department Care Team (Late st Contact Info) Description 03/09/2022 Orders Only Department of Oncology in [place], [place] [address] [place] [phone] Anna Rosa RMaría [address] [place] [address] Multiple Myeloma In Remission (HCC) (Primary Dx); Transplant Stem Cell (HCC) Social History Tobacco Use Types Packs/Day [...] do you attend [facility]? 1 to 4 times [...] Score 4 11/18/2021 [facility] - [facility]ational Stress Questionnaire Answer Date [...] st Contact Info) Description 03/16/2023 10:30 AM ENVIRONMENTAL PLANNING ENGINEER Appointment Department of Laboratory Medicine in [address] [place] [address] Mari Noguera M.D. [address] [place] [phone] 03/17/2023 8:40 AM ENVIRONMENTAL PLANNING ENGINEER Office Visit Department of Oncology in [address] [phone] Mari Noguera M.D. [address] [place] [phone] 03/17/2023 9:45 AM ENVIRONMENTAL PLANNING ENGINEER Infusion Department of Infusion Therapy in [address] [phone] Mari Noguera M.D. [address] [place] [phone] 03/31/2023 10:10 AM ENVIRONMENTAL PLANNING ENGINEER Appointment Department of Laboratory Medicine in [address] [place] [address] Mari Noguera M.D. [address] [place] [phone] 04/04/2023 8:20 AM ENVIRONMENTAL PLANNING ENGINEER Office Visit Department of Oncology in [address] [phone] Mari Noguera M.D. [address] [place] [phone] 04/04/2023 9:00 AM ENVIRONMENTAL PLANNING ENGINEER Infusion Department of Infusion Therapy in [address] [phone] Mari Noguera M.D. [address] [place] [phone] 04/13/2023 10:10 AM ENVIRONMENTAL PLANNING ENGINEER Appointment Department of Laboratory Medicine in [place] [address] [place] [phone] Mari Noguera M.D. [address] [place] [phone] 04/14/2023 9:00 AM ENVIRONMENTAL PLANNING ENGINEER Infusion Department of Infusion Therapy in [address] [phone] Mari Noguera M.D. [address] [place] [phone] Scheduled Referrals Name Type Priority Associated Diagnoses Order Schedule Hematology office visit (clinic) [facility] Region; General Outpatient Referral Routine Expected: 03/09/2022 (Approximate), Expires: 06/08/2023 documented as of this encounter Results * (ABNORMAL) Comprehensive Metabolic Panel (03/18/2022 9:08 AM ENVIRONMENTAL PLANNING ENGINEER) Potassium, P 4.0 3.6 - 5.2 mmol/L 03/18/2022 9:41 AM ENVIRONMENTAL PLANNING ENGINEER [facility] Sodium, P 133(L) 135 - 145 mmol/L 03/18/2022 9:41 AM ENVIRONMENTAL PLANNING ENGINEER [facility] Chloride, P 96(L) 98 - 107 mmol/L 03/18/2022 9:41 AM ENVIRONMENTAL PLANNING ENGINEER [facility] Bicarbonate, P 25 22 - 29 mmol/L 03/18/2022 9:41 AM ENVIRONMENTAL PLANNING ENGINEER [facility] Anion Gap, P 12 7 - 15 03/18/2022 9:41 AM ENVIRONMENTAL PLANNING ENGINEER [facility] BUN (Blood Urea Nitrogen), P 17 6 - 21 mg/dL 03/18/2022 9:41 AM ENVIRONMENTAL PLANNING ENGINEER [facility] Creatinine 0.95 0.59 - 1.04 mg/dL 03/18/2022 9:41 AM ENVIRONMENTAL PLANNING ENGINEER R[facility] Estimated GFR (eGFR) 63 >=60 mL/min/BS A 03/18/2022 9:41 AM ENVIRONMENTAL PLANNING ENGINEER [facility] Comment: Estimated GFR calculated using the 2020 CKD_EPI creatinine equation. Calcium, Total, P 9.6 8.8 - 10.2 mg/dL 03/18/2022 9:41 AM ENVIRONMENTAL PLANNING ENGINEER RDW[facility] Glucose, P 96 70 - 140 mg/dL 03/18/2022 9:41 AM ENVIRONMENTAL PLANNING ENGINEER R[facility] Protein, Total, P 6.7 6.3 - 7.9 g/dL 03/18/2022 9:41 AM ENVIRONMENTAL PLANNING ENGINEER [facility] Albumin, P 4.1 3.5 - 5.0 g/dL 03/18/2022 9:41 AM ENVIRONMENTAL PLANNING ENGINEER RDW[facility] Aspartate Aminotransferase (AST), P 27 8 - 43 U/L 03/18/2022 9:41 AM ENVIRONMENTAL PLANNING ENGINEER RDW[facility] Alkaline Phosphatase, P 64 35 - 104 U/L 03/18/2022 9:41 AM ENVIRONMENTAL PLANNING ENGINEER R[facility] Alanine Aminotransferase (ALT), P 20 7 - 45 U/L 03/18/2022 9:41 AM ENVIRONMENTAL PLANNING ENGINEER RDW[facility] Bilirubin, Total, P 0.2 <=1.2 mg/dL 03/18/2022 9:41 AM ENVIRONMENTAL PLANNING ENGINEER R[facility] Blood (Blood, Venous) 03/18/2022 9:08 AM ENVIRONMENTAL PLANNING ENGINEER 03/18/2022 9:15 AM ENVIRONMENTAL PLANNING ENGINEER Mari Noguera M.D. LAB BLOOD ADD-ON [facility] [address] [facility] [place] [address], [facility] [[email or web address]] RDWG [facility] in [place] [address] [place] [address] * (ABNORMAL) CBC with Differential, Blood (03/18/2022 9:08 AM ENVIRONMENTAL PLANNING ENGINEER) Hemoglobin 12.1 11.6 - 15.0 g/dL 03/18/2022 9:31 AM ENVIRONMENTAL PLANNING ENGINEER RDWG Hematocrit 38.1 35.5 - 44.9 % 03/18/2022 9:31 AM ENVIRONMENTAL PLANNING ENGINEER [facility] Erythrocytes 4.05 3.92 - 5.13 x10(12)/L 03/18/2022 9:31 AM ENVIRONMENTAL PLANNING ENGINEER [facility] MCV 94.1 78.2 - 97.9 fL 03/18/2022 9:31 AM ENVIRONMENTAL PLANNING ENGINEER RDW[facility] RBC Distrib Width 13.1 12.2 - 16.1 % 03/18/2022 9:31 AM ENVIRONMENTAL PLANNING ENGINEER RDW[facility] Platelet Count 138(L) 157 - 371 x10(9)/L 03/18/2022 9:31 AM ENVIRONMENTAL PLANNING ENGINEER [facility]DW[facility] Leukocytes 6.6 3.4 - 9.6 x10(9)/L 03/18/2022 9:31 AM ENVIRONMENTAL PLANNING ENGINEER RDW[facility] Neutrophils 4.95 1.56 - 6.45 x10(9)/L 03/18/2022 9:31 AM ENVIRONMENTAL PLANNING ENGINEER RDW[facility] Lymphocytes 0.87(L) 0.95 - 3.07 x10(9)/L 03/18/2022 9:31 AM ENVIRONMENTAL PLANNING ENGINEER [facility] Monocytes 0.72 0.26 - 0.81 x10(9)/L 03/18/2022 9:31 AM ENVIRONMENTAL PLANNING ENGINEER RDW[facility] Eosinophils <0.03 0.03 - 0.48 x10(9)/L 03/18/2022 9:31 AM ENVIRONMENTAL PLANNING ENGINEER RDW[facility] Basophils <0.03 0.01 - 0.08 x10(9)/L 03/18/2022 9:31 AM ENVIRONMENTAL PLANNING ENGINEER RDW[facility] Blood (Blood, Venous) 03/18/2022 9:08 AM ENVIRONMENTAL PLANNING ENGINEER 03/18/2022 9:15 AM ENVIRONMENTAL PLANNING ENGINEER Mari Noguera M.D. LAB BLOOD ADD-ON [facility] [address] [address], [email or web address]] RDWG [facility] in [place] [address] [phone] documented in this encounter Visit Diagnoses Diagnosis Multiple Myeloma In Remission (HCC)- Primary Transplant Stem Cell (HCC) documented in this encounter Additional Health Concerns Infection Onset Date Last Indicated Resolved Time COVID19 03/19/2022 03/19/2022 04/08/2022 5:08 AM ENVIRONMENTAL PLANNING ENGINEER documented as of this encounter
--- OUTSIDE RECORDS SUMMARY | 2023-03-08 09:00 | XMS_ITS | Encounter Summary ---
Author Name Unknown Organization [facility] Address [address] [place] [address] Care Team Providers Care Medical Director Of Hospice Name Role Phone Elsewhere, Pcp Primary Care Provider Unavailabl e Encounter Details Date Type Department Care Team (Latest Contact Info) Description 12/07/2021 Intake [facility] Social History Tobacco Use Types Packs/Day Years Used Date Smoking Tobacco: Former Smokeless Tobacco: Never Humiliation, Afraid, Rape, and Kick questionnair e [...] How often do you attend [facility] or [facility]? 1 to 4 times [...] Answer Date Recorded PHQ-2 Score 4 11/18/2021 [facility] - Occupational Stress Questionnaire Answer Date Recorded [...] st Contact Info) Description 03/16/2023 10:30 AM REHABILITATION ATTENDANT Appointment Department of Laboratory Medicine in [address] [phone] Mari Noguera M.D. [address] [place] [phone] 03/17/2023 8:40 AM REHABILITATION ATTENDANT Office Visit Department of Oncology in [address] [phone] Mari Noguera M.D. [address] [place] [phone] 03/17/2023 9:45 AM REHABILITATION ATTENDANT Infusion Department of Infusion Therapy in [place] [address] [place] [phone] Mari Noguera M.D. [facility] [place] [phone] 03/31/2023 10:10 AM REHABILITATION ATTENDANT Appointment Department of Laboratory Medicine in [address] [place] [phone] Mari Noguera M.D. [address] [place] [phone] 04/04/2023 8:20 AM REHABILITATION ATTENDANT Office Visit Department of Oncology in [address] [phone] Mari Noguera M.D. [address] [place] [phone] 04/04/2023 9:00 AM REHABILITATION ATTENDANT Infusion Department of Infusion Therapy in [address] [phone] Mari Noguera M.D. [address] [place] [phone] 04/13/2023 10:10 AM REHABILITATION ATTENDANT Appointment Department of Laboratory Medicine in [address] [place] [phone] Mari Noguera M.D. [address] [place] [phone] 04/14/2023 9:00 AM REHABILITATION ATTENDANT Infusion Department of Infusion Therapy in [address] [phone] Mari Noguera M.D. [address] [place] [phone] documented as of this encounter Visit Diagnoses Not on filedocumented in this encounter Additional Health Concerns Infection Onset Date Last Indicated Resolved Time COVID19 Pending 12/07/2021 12/07/2021 12/08/2021 1 :49 AM CDT COVID19 03/19/2022 03/19/2022 04/08/2022 5:08 AM REHABILITATION ATTENDANT Protective Environment 06/03/2022 06/03/2022 documented as of this encounter Care Teams Medical Director Of Hospice Relationship Specialty Start Date End Date Elsewhere, Pcp PCP - General Internal Medicine 04/01/22 documented as of this encounter
--- OUTSIDE RECORDS SUMMARY | 2023-03-08 09:00 | XMS_ITS | Encounter Summary ---
Author Name Unknown Organization [facility] Address [address] [place] [address] Care Team Providers Care Union Organizer Name Role Phone Unavailable Primary Care Provider Unavailabl e Encounter Details Date Type Department Care Team (Late st Contact Info) Description 03/22/2022 Clinical Communication Department of Family Medicine in [employer], [place] [address] [place] [phone] Evelyn Rivera D.O. [address] [place] [phone] Social History Tobacco Use Types Packs/Day Years [...] Answer Date Recorded PHQ-2 Score 4 11/18/2021 [facility] Answer Date [...] encounter Miscellaneous Notes * Telephone Encounter - Evelyn Rivera D.O. - 03/22/2022 5:16 PM CST [facility] RN's called and consented patient for COVID Convalescent Plasma. This encounter was created to order the ABO Rh and the CCP transfusion. The [place] team will be made aware of the patient and order 03/23/22 since they are currently closed. EHOLD WORKER documented in this encounter Plan of Treatment Upcoming Encounters Date Type Department Care Team (Late st Contact Info) Description 03/16/2023 10:30 AM HOUSEHOLD WORKER Appointment Department of Laboratory Medicine in [address] [phone] Mari Noguera M.D. [address] [place] [phone] 03/17/2023 8:40 AM HOUSEHOLD WORKER Office Visit Department of Oncology in [address] [phone] Mari Noguera M.D. [address] [place] [phone] 03/17/2023 9:45 AM HOUSEHOLD WORKER Infusion Department of Infusion Therapy in [address] [phone] Mari Noguera M.D. [address] [place] [phone] 03/31/2023 10:10 AM HOUSEHOLD WORKER Appointment Department of Laboratory Medicine in [address] [phone] Mari Noguera M.D. [address] [place] [phone] 04/04/2023 8:20 AM HOUSEHOLD WORKER Office Visit Department of Oncology in [address] [phone] Mari Noguera M.D. [address] [place] [phone] 04/04/2023 9:00 AM HOUSEHOLD WORKER Infusion Department of Infusion Therapy in [address] [phone] Mari Noguera M.D. [address] [place] [phone] 04/13/2023 10:10 AM HOUSEHOLD WORKER Appointment Department of Laboratory Medicine in [address] [phone] Mari Noguera M.D. [address] [place] [phone] 04/14/2023 9:00 AM HOUSEHOLD WORKER Infusion Department of Infusion Therapy in [address] [phone] Mari Noguera M.D. [address] [place] [phone] documented as of this encounter Results * ABORh, RBC (03/23/2022 12:01 PM HOUSEHOLD WORKER) ABO Group A 03/23/2022 12: 38 PM HOUSEHOLD WORKER MKTO Rh Type NEG 03/23/2022 12: 38 PM HOUSEHOLD WORKER MKTO Blood (Blood, Venous) 03/23/2022 12:01 PM HOUSEHOLD WORKER 03/23/2022 12:04 PM HOUSEHOLD WORKER Evelyn Rivera D.O. LAB BLOOD BANK TEST ORDERABLES [facility] [address] [place] [address], [facility] MKTO [facility] in [place] [address] [place] [address] documented in this encounter Visit Diagnoses Diagnosis COVID-19 Infection- Primary documented in this encounter Additional Health Concerns Infection Onset Date Last Indicated Resolved Time COVID19 03/19/2022 03/19/2022 04/08/2022 5:08 AM HOUSEHOLD WORKER documented as of this encounter
--- OUTSIDE RECORDS SUMMARY | 2023-03-08 09:00 | XMS_ITS | Encounter Summary ---
Author Name Unknown Organization [facility] Address [address] [place] [address] Care Team Providers Care Coat Feller Name Role Phone Unavailable Primary Care Provider Unavailabl e Reason for Referral * Outpatient (Routine) - Authorized Specialty Diagnoses / Procedures Referred By Guillermina zamora Referred To Contact Video Medicine Diagnoses COVID-19 Infection Evelyn Rivera D.O. [address] [place] [address] [facility] Referral ID Status Reason Start Date Expiration Date V isits Requested Visits Authorized [id number] Authorized 03/23/2022 03/23/2023 1 1 MAKER Reason for Visit * Reason Comments COVID Treatment Review Encounter Details Date Type Department Care Team (Latest Contact Info) Description 03/22/2022 Clinical Communication Department of Family Medicine, [place] [facility] [place], [place] [address] [place] [address] Kathi Hart, RAbrahamNAbraham [address] [place] [address] COVID Treatment Review Social History Tobacco Use Types Packs/Day [...] 06/11/2021 How often do you attend [facility] or baptism services? 1 to 4 times [...] Answer Date Recorded PHQ-2 Score 4 11/18/2021 [facility] [place] of Occupat ional Health - Occupational Stress [...] Note - Jane Arellano R.N. - 03/23/2022 3:34 PM CSTAddended by: JANE ARELLANO on: 03/23/2022 03:34 PM Modules accepted: Orders MAKER * Telephone Encounter - Kathi Hart R.N. - 03/22/2022 4:36 PM CST Images from the original note were not included. MWCCT TELEPHONE COMMUNICATION NOTE Cane Packer: None The patient was called regarding a recent positive COVID-19 test. Based on an initial review of thepatient's medical record, treatment may be appropriate for COVID-19. Monoclonal Antibody Screening Score (MASS) Total Points Current as of about an hour ago 14 0 - 3 Points: Low Risk 4 - 6 Points: Medium Risk >= 7 Points: High Risk No Change Details This score is used to evaluate patient risk of complications with COVID-19 infection Points Metrics 2 Age: 76 Current as of about an hour ago 2 Has Chronic Respiratory Disease: Yes Current as of about an hour ago 2 Has Diabetes: Yes Current as of about an hour ago 4 Patient is Immune Compromised/Transplant Patient: Yes Current as of about an hour ago 1 BMI: 35.17 Current as of about an hour ago 2 Has CVD: Yes Current as of about an hour ago 0 Has Renal Disease (CKD 4 or 5, ESRD w/ Dialysis): No Current as of about an hour ago 1 Has Hypertension: Yes Current as of about an hour ago 0 : No Current as of about an hour ago Patient Interest: The patient is interested in learning about medications and monitoring. COVID-19 Symptoms: The patient is having symptoms that started on 03/18. The symptoms are not severe. Severe symptoms may include new or increasing oxygen requirements, shortness of breath at rest, shortness of breath that limits walking short distances, chest pain (such as retrosternal or left sidedchest pain, pain that radiates to the jaw or arm), and dizziness or lightheadedness that makes themunsteady or unable to stand or walk. Do you have new or increased oxygen requirement due to COVID 19? No. Are you ? N/A Are you ? N/A. Have you previously received treatment for COVID-19 in the last 90 days? No. Counseling Regarding Therapy for COVID-19 You may choose to accept or refuse any of the available treatments that we will review today. You may also stop treatment at any time. Your choice will not change your standard medical care. Regardless of your choice, you should continue to self-isolate and use infection control measures according to CDC guidelines (e.g., wear mask, isolate, social distance, avoid sharing personal items,and frequent handwashing). In addition, regardless of whether you accept any of the treatments we discuss today, if you develop worsening symptoms of COVID-19, you should reach out to your primary care provider or present to the nearest emergency department for evaluation. Treatment Options Discussion Patient was prescribed Paxlovid on 03/19. Patient is eligible for additional therapy option(s) or dual therapy. COVID-19 Convalescent Plasma COVID-19 convalescent plasma is a transfusion that may benefit patients with COVID-19 and weakened immune systems. In patients with weakened immune systems, their body is unable to make its own antibodies to the virus or the patient may be taking medications that impair their immune system. It has been authorized by the FDA for Emergency Use. COVID-19 convalescent plasma is the liquid portion of blood from donors who have recovered from COVID19. The blood from people who recover from COVID-19 contains substances called antibodies, which are capable of fighting the virus that causes COVID-19. Patients with COVID-19 and weakened immune systems may improve faster if they receive plasma from those who have recovered from COVID- 19, becauseit may have the ability to fight the virus that causes COVID-19. Possible adverse reactions to COVID-19 convalescent plasma include those that are associated with the receipt of a blood product and include allergic reactions, fevers, transfusion-associated circulatory overload (too much fluid which leads to breathing difficulty), lung damage with profound breathing difficulty, cardiac (heart) rhythm irregularities, and blood clotting. There is also risk of transfusion-transmitted infection including HIV, hepatitis B, and hepatitis C. The risk of these infections is very low, because only screened blood is used for transfusion. COVID-19 convalescent plasma is given as an infusion into one of your veins and takes about 2 hoursto administer. Additional infusions may be given if the treatment team determines they are necessary based on yoursymptoms. To accurately track any changes in your symptoms we would like a baseline symptom assessment. Currently the patient is experiencing the following symptoms: cough, congestion , and diarrhea Do you have a history of allergic reaction to plasma infusions? No. The patient accepts treatment. IV COVID-19 Convalescent Plasma (CCP): The patient consents to therapy. The patient selects IV COVID-19 Convalescent Plasma. The patient's chart will be routed or sent viasecure chat to the [facility] DOD, who will place the CCP orders. Patient will be infused in [facility]. Remote Patient Monitoring: Is the patient immunocompromised and do they have 5 or more days left of isolation? Yes. Patient iseligible for Remote Patient Monitoring. As part of this program, we would mail you equipment and ask you to check your oxygen levels, bloodpressure and temperature 2-4 times per day. The equipment will automatically transmit the readings to a team of remote monitoring nurses for review. If there are any concerning readings or concerningtrends, a nurse would reach out to check on you. In addition, you would be able to call the remote monitoring nurses 7 am - 7:30 pm, 7 days a week, (excluding holidays) with questions, concerns or change in your symptoms. Over the past year we have seen that patients who enroll in Remote Patient Monitoring are less likely to need the emergency department or hospital. In addition, when the hospital is needed, we are able to get patients there before becoming critically ill. Are you interested in having me order this monitoring system for you? Yes. If no type and screen in patient's chart, it will be ordered by [facility] Doctor of the Day and will bedrawn in the same region where the infusion is taking place. Side Effects and Fact Sheet for Patients, Parents and Caregivers Tell your healthcare provider right away if you have any urgent side effects. For non-urgent side effects or side effects that bother you or do not go away please contact the care team coordinating your COVID care during business hours. This may be your primary care provider, your COVID care team or your remote monitoring nurse team, which ever is applicable. If you have symptoms of a severe allergic reaction, including difficulty breathing or swelling of the lips, tongue or throat, severe dizziness, lightheadedness or weakness, call 911 and go to the Emergency Department. If you have continued questions please reach out to the team coordinating your clinical care, either a COVID-19 focused team or your primary care provider's office. Link to Fact Sheet: https://www.fda.gov/media/783912/download Remote Patient Monitoring: Is the patient immunocompromised and do they have 5 or more days left of isolation? Yes. Patient iseligible for Remote Patient Monitoring. As part of this program, we would mail you equipment and ask you to check your oxygen levels, bloodpressure and temperature 2-4 times per day. The equipment will automatically transmit the readings to a team of remote monitoring nurses for review. If there are any concerning readings or concerningtrends, a nurse would reach out to check on you. In addition, you would be able to call the remote monitoring nurses 7 am - 7:30 pm, 7 days a week, (excluding holidays) with questions, concerns or change in your symptoms. Over the past year we have seen that patients who enroll in Remote Patient Monitoring are less likely to need the emergency department or hospital. In addition, when the hospital is needed, we are able to get patients there before becoming critically ill. Are you interested in having me order this monitoring system for you? Yes. Home Care Points for Upper Respiratory Infection: - Wash your hands often with soap and water. - For fever or discomfort, give Acetaminophen (Tylenol) or Ibuprofen (Motrin) following the dosing recommendations on the beater engineer's label. - For a sore throat, gargle with 8 ounces of warm salt water several times a day for throat discomfort (1/4 tsp regular salt to 8 ounces or 1 cup warm water). Do not swallow the salt water. Throat lozenges will help keep the throat lubricated. Hard candy, lollipops, and throat lozenges are equally effective. - Suctioning your infant's nose can make it easier for your child to breath and eat. Using a bulb syringe or nasal aspirator with saline drops, you can safely remove mucus from your child's nose. - Suction mucus from your child's nose before you feed your child. - Notify your primary care provider of any new or worsening symptoms. When to seek emergency care: Patient is 18 years of age or older and reports the following urgent symptoms: - New shortness of breath at rest. - Pain, pressure, or tightness in chest, jaw, or arm (unrelated to coughing). - New confusion or inability to stay alert and awake. - Dizziness when sitting or standing. - Noisy, wheezy, or raspy breathing that does not clear with coughing. - Inability to swallow liquids or saliva, muffled voice, or inability to open mouth fully. - Drooling. COVID-19 Isolation Beginning of isolation (day 0) is considered the start of onset of symptoms. Isolate at home with minimal to no contact with other people living in your house until all the following are true: It has been at least 5 days since your symptoms started. Or, if you have no symptoms, it has been at least 5 days since your positive COVID-19 test. If you are immune compromised, isolate for at least 10 days. You are fever free for at least 24 hours without the use of fever-reducing medications. Wear a mask everywhere you go for an additional 5 days. Continue to wear a mask in indoor spaces when community transmission is high. What should you tell your close contacts Wear a mask for 10 full days following the close contact exposure. Monitor for symptoms. If they develop symptoms, they need to quarantine and get tested for COVID-19. On Day 6, get tested for COVID-19 even if they have not developed symptoms. If negative, continue to take precautions, including wearing a mask through Day 10. If positive, isolate immediately. Thank you for your time today. The results of this call will be shared with members of your care team. Plan: Disposition/Recommendation: protocol orders Response to Education: patient/caller able to teach back Caller agreeable to plan of care: yes The following references were used: Nursing or Provider judgement, [facility] workflow, [facility] Protocols Kathi Hart R.N. [place] COVID Care Team [facility] MAKER documented in this encounter Plan of Treatment Upcoming Encounters Date Type Department Care Team (Late st Contact Info) Description 03/16/2023 10:30 AM PIN MAKER Appointment Department of Laboratory Medicine in [address] [place] [address] Mari Noguera M.D. [facility] [place] [address] 03/17/2023 8:40 AM PIN MAKER Office Visit Department of Oncology in [place] [address] [facility] [place] [address] Mari Noguera M.D. [facility] [place] [address] 03/17/2023 9:45 AM PIN MAKER Infusion Department of Infusion Therapy in [address] [address] Mari Noguera M.D. [facility] [place] [address] 03/31/2023 10:10 AM PIN MAKER Appointment Department of Laboratory Medicine in [address] [place] [address] Mari Noguera M.D. [facility] [place] [phone] 04/04/2023 8:20 AM PIN MAKER Office Visit Department of Oncology in [place] [address] [facility] [place] [address] Mari Noguera M.D. [facility] [place] [address] 04/04/2023 9:00 AM PIN MAKER Infusion Department of Infusion Therapy in [address] [address] Mari Noguera M.D. [facility] [place] [phone] 04/13/2023 10:10 AM PIN MAKER Appointment Department of Laboratory Medicine in [place] [address] [place] [address] Mari Noguera M.D. [address] [place] [phone] 04/14/2023 9:00 AM PIN MAKER Infusion Department of Infusion Therapy in [place], [place] [address] [place] [phone] Mari Noguera M.D. [address] [place] [phone] Scheduled Referrals Name Type Priority Associated Diagnoses Orde r Schedule Video anyplace visit Outpatient Referral Routine COVID-19 Infection Expected: 03/25/2022, Expires: 04/06/2022 documented as of this encounter Visit Diagnoses Diagnosis COVID-19 Infection- Primary documented in this encounter Additional Health Concerns Infection Onset Date Last Indicated Resolved Time COVID19 03/19/2022 03/19/2022 04/08/2022 5:08 AM PIN MAKER documented as of this encounter
--- OUTSIDE RECORDS SUMMARY | 2023-03-08 09:00 | XMS_ITS | Encounter Summary ---
Author Name Unknown Organization [facility] Address [address] [place] [address] Care Team Providers Care Security Operations Center Analyst Name Role Phone Unavailable Primary Care Provider Unavailabl e Reason for Referral * Outpatient (Routine) Specialty Diagnoses / Procedures Referred By Guillermina zamora Referred To Contact Hematology Oncology Mari Noguera M.D. [address] [place] [phone] [facility] Region Referral ID Status Reason Start Date Expiration Date Visits Re quested Visits Authorized REAMER MACHINE OPERATOR Reason for Visit * Reason Comments Follow-up * Outpatient (Routine) - Closed Specialty Diagnoses / Procedures Referred By Guillermina zamora Referred To Contact Hematology Oncology Mari Noguera M.D. [address] [place] [phone] [facility] Region Referral ID Status Reason Start Date Expiration Date Visits Re quested Visits Authorized [id number] Closed 03/09/2022 03/08/2025 1 1 Encounter Details Date Type Department Care Team (Late st Contact Info) Description 03/18/2022 9:40 AM BAND REAMER MACHINE OPERATOR Office Visit Department of Oncology in [place], [place] [address] [place] [phone] Noguera, Mari, M.D. [address] [place] [phone] Multiple Myeloma Not Having Achieved Remission (HCC) [...] you attend [facility] or baptism services? 1 to 4 times [...] Score 4 11/18/2021 [facility] - Occupational Stress Questionnaire Answer Date [...] Sign Reading Time Taken Comments Blood Pressure 137/67 03/18/2022 9:50 AM BAND REAMER MACHINE OPERATOR Pulse 80 03/18/2022 9:46 AM BAND REAMER MACHINE OPERATOR Temperature 36.9 ??C (98.4 ??F) 03/18/2022 9:46 AM CS T Respiratory Rate - - Oxygen Saturation 95% 03/18/2022 9:46 AM BAND REAMER MACHINE OPERATOR Inhaled Oxygen Concentration - - Weight 85.6 kg (188 lb 11.4 oz) 03/18/2022 9:46 AM BAND REAMER MACHINE OPERATOR Height - - Body Mass Index 35.17 12/10/2021 1:49 PM CDT documented in this encounter Progress Notes * Mari Noguera M.D. - 03/18/2022 9:40 AM CST SUBJECTIVE PRIMARY CARE PHYSICIAN No primary care provider on file. CHIEF COMPLAINT / REASON FOR VISIT Keysha Melendez is a 76 y.o. 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 In 2019 bone survey [...] chains: kappa: 8.01 mg/L; lambda: 33.64 mg/L; [place]:Lambda Ratio: 0.24 SPEP: M-spike: 3.26 g/dL Immunofixation: [...] cell transplant, all collected stem cells infused 03/29/2022 - Chemotherapy Daratumumab (Subcutaneous) RVD (Lenalidomide / Bortezomib / Dexamethasone) (28 day cycles) Start Date: 03/29/2022 (Planned) INTERIM HISTORY is seen today to establish post autologous transplant supportive care. Her posttransplant course was complicated by diverticulitis, hypotension requiring discontinuation of KIANNA inhibitorsand amlodipine, anasarca, hypomagnesemia and hypokalemia. She was discharged from the hospital on 12/15/2021. She is currently on Lasix 20 mg twice daily which has markedly improved her fluid status. She continues to have lower extremity edema, but this is gradually improving. Still unable to wear shoes. She is elevating her legs when sitting. She is on potassium replacement which she is able to tolerate. Her blood pressures have improved, running 1 teens over 60s at home. She is not experiencing any lightheadedness, no falls. She continues to experience loose stool 1-3 times daily, worse after eating. She uses Imodium as needed. Has not been able to take oral magnesium supplementation due to loose stools. She is up and about several times during the day at home. ECOG performance status of 2. Pain rated at 0. She has been having difficulty with oral intake, eating 3 meals per day but only very scant amounts. She is not having any nausea, appetite is intact but she states she is having difficulty withthe taste of foods. REVIEW OF SYSTEMS Constitutional: Positive for fatigue and loss of appetite. Respiratory: Positive for shortness of breath. Neurological: Positive for numbness or shooting pain in hands, arms, legs, or feet and loss of balance or tendency to fall easily. Psychiatric/Behavioral: Positive for excessive daytime sleepiness/tiredness, little interest or pleasure in doing things over past two weeks and feeling nervous, anxious, or on edge in past two weeks. The following systems were negative: Skin, Eyes, ENT, Cardiovascular, Gastrointestinal, Genitourinary, Hematologic, Musculoskeletal PHYSICAL EXAM Constitutional General: She is not in acute distress. Appearance: She is not ill-appearing. Musculoskeletal Right lower leg: Edema (2+) present. Left lower leg: Edema (2+) present. LABORATORY DATA Results from last 7 days Lab Units 03/18/22 0908 HEMOGLOBIN g/dL 12.1 HEMATOCRIT % 38.1 RBC AUTO x10(12)/L 4.05 MCV fL 94.1 RBC DISTRIBUTION WIDTH AUTO % 13.1 WBC x10(9)/L 6.6 NEUTROPHILS AUTO x10(9)/L 4.95 LYMPHS ABSOLUTE x10(9)/L 0.87* MONOS ABS AUTO x10(9)/L 0.72 EOS ABS AUTO x10(9)/L <0.03 BASOS ABS AUTO x10(9)/L <0.03 PLATELETS AUTO x10(9)/L 138* Results from last 7 days Lab Units 03/18/22 0908 SODIUM P mmol/L 133* POTASSIUM P mmol/L 4.0 CHLORIDE P mmol/L 96* BICARBONATE PLASMA mmol/L 25 CREATININE mg/dL 0.95 BUN P mg/dL 17 ANION GAP P 12 GLUCOSE P mg/dL 96 CALCIUM P mg/dL 9.6 RADIOLOGICAL DATA No results found. ASSESSMENT / PLAN #1 Multiple Myeloma In Remission, high risk IgG lambda with VGPR post ASCT day 0 12/02/2021 ([facility]) #2 Transplant Stem Cell ([facility]) Ms. 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 She met with in [place] to review bone marrow biopsy results performed on 02/15/2022. This showed less than 5% plasma cells, persistent small monoclonal protein on immunofixation, no serum free light chain elevation. Results consistent with a very good partial response. Recommendation to pursue maintenance therapy with every other week bortezomib and lenalidomide at a doseof 10 mg 21 of 28 days. Current ECOG performance status of 2. Post transplant immunizations: She has already received [...] well. Continue acyclovir while on bortezomib until months post bortezomib DVT/PE prophylaxis She will resume aspirin 325 mg daily. She is considering pursuing knee replacement in the future and has been cleared from a transplant standpoint. We would need to time this with maintenance treatment as well. She will hold off on this for now. However if she does pursue knee replacement would need to consider full anticoagulation in the perioperative period. She will be scheduled to begin bortezomib at 1.3 mg per m2 next week, Revlimid prescription was sent for 10 mg daily for 21 days of a 28 day cycle. Follow-up prior to 2nd cycle of maintenance therapy. 45 minutes spent in review of diagnostics, patient counseling, treatment planning and care coordination Mari Noguera M.D. REAMER MACHINE OPERATOR documented in this encounter Plan of Treatment Upcoming Encounters Date Type Department Care Team (Late st Contact Info) Description 03/16/2023 10:30 AM BAND REAMER MACHINE OPERATOR Appointment Department of Laboratory Medicine in [place], [place] [address] [place] [address] Mari Noguera M.D. [facility] [phone] 03/17/2023 8:40 AM BAND REAMER MACHINE OPERATOR Office Visit Department of Oncology in [address] [place] [address] Mari Noguera M.[place]. [facility] [phone] 03/17/2023 9:45 AM BAND REAMER MACHINE OPERATOR Infusion Department of Infusion Therapy in [address] [place] [address] Mari Noguera M.D. [address] [place] [phone] 03/31/2023 10:10 AM BAND REAMER MACHINE OPERATOR Appointment Department of Laboratory Medicine in [address] [place] [address] Mari Noguera M.D. [address] [place] [phone] 04/04/2023 8:20 AM BAND REAMER MACHINE OPERATOR Office Visit Department of Oncology in [address] [place] [address] Mari Noguera M.D. [facility] [phone] 04/04/2023 9:00 AM BAND REAMER MACHINE OPERATOR Infusion Department of Infusion Therapy in [address] [phone] Mari Noguera M.D. [address] [place] [phone] 04/13/2023 10:10 AM BAND REAMER MACHINE OPERATOR Appointment Department of Laboratory Medicine in [place] [address] [place] [phone] Mari Noguera M.D. [address] [place] [phone] 04/14/2023 9:00 AM BAND REAMER MACHINE OPERATOR Infusion Department of Infusion Therapy in [address] [phone] Mari Noguera M.D. [address] [place] [phone] Scheduled Referrals Name Type Priority Associated Diagnoses Order Schedule Hematology office visit (clinic) [facility] Region; Pre-Chemo Outpatient Referral Routine Multiple Myeloma Not Having Achieved Remission (HCC) Expected: 05/03/2022, Expires: 05/03/2023 documented as of this encounter Results * (ABNORMAL) Comprehensive Metabolic Panel (05/06/2022 1:56 PM BAND REAMER MACHINE OPERATOR) Potassium, P 4.3 3.6 - 5.2 mmol/L 05/06/2022 2:20 PM BAND REAMER MACHINE OPERATOR [facility] Sodium, P 140 135 - 145 mmol/L 05/06/2022 2:20 PM BAND REAMER MACHINE OPERATOR [facility] Chloride, P 101 98 - 107 mmol/L 05/06/2022 2:20 PM BAND REAMER MACHINE OPERATOR R[facility] Bicarbonate, P 30(H) 22 - 29 mmol/L 05/06/2022 2:20 PM BAND REAMER MACHINE OPERATOR [facility] Anion Gap, P 9 7 - 15 05/06/2022 2:20 PM BAND REAMER MACHINE OPERATOR [facility] BUN (Blood Urea Nitrogen), P 17 6 - 21 mg/dL 05/06/2022 2:20 PM BAND REAMER MACHINE OPERATOR [facility] Creatinine 0.85 0.59 - 1.04 mg/dL 05/06/2022 2:20 PM BAND REAMER MACHINE OPERATOR [facility] Estimated GFR (eGFR) 72 >=60 mL/min/BS A 05/06/2022 2:20 PM BAND REAMER MACHINE OPERATOR RDW[facility] Comment: Estimated GFR calculated using the 2020 CKD_EPI creatinine equation. Calcium, Total, P 10.0 8.8 - 10.2 mg/dL 05/06/2022 2:20 PM BAND REAMER MACHINE OPERATOR RDW[facility] Glucose, P 87 70 - 140 mg/dL 05/06/2022 2:20 PM BAND REAMER MACHINE OPERATOR RDW[facility] Protein, Total, P 6.7 6.3 - 7.9 g/dL 05/06/2022 2:20 PM BAND REAMER MACHINE OPERATOR R[facility] Albumin, P 4.2 3.5 - 5.0 g/dL 05/06/2022 2:20 PM BAND REAMER MACHINE OPERATOR [facility] Aspartate Aminotransferase (AST), P 20 8 - 43 U/L 05/06/2022 2:20 PM BAND REAMER MACHINE OPERATOR R[facility] Alkaline Phosphatase, P 81 35 - 104 U/L 05/06/2022 2:20 PM BAND REAMER MACHINE OPERATOR R[facility] Alanine Aminotransferase (ALT), P 15 7 - 45 U/L 05/06/2022 2:20 PM BAND REAMER MACHINE OPERATOR R[facility] Bilirubin, Total, P 0.3 <=1.2 mg/dL 05/06/2022 2:20 PM BAND REAMER MACHINE OPERATOR R[facility] Blood (Blood, Venous) 05/06/2022 1:56 PM BAND REAMER MACHINE OPERATOR 05/06/2022 1:57 PM BAND REAMER MACHINE OPERATOR Mari Noguera M.D. LAB BLOOD ADD-ON [facility] [address] [place] [id number], [facility] R[facility] [place] [address] [place] [phone] * CBC with Differential, Blood (05/06/2022 1:56 PM BAND REAMER MACHINE OPERATOR) Hemoglobin 12.9 11.6 - 15.0 g/dL 05/06/2022 2:04 PM BAND REAMER MACHINE OPERATOR RDWG Hematocrit 41.4 35.5 - 44.9 % 05/06/2022 2:04 PM BAND REAMER MACHINE OPERATOR RDWG Erythrocytes 4.43 3.92 - 5.13 x10(12)/L 05/06/2022 2:04 PM BAND REAMER MACHINE OPERATOR R[facility] MCV 93.5 78.2 - 97.9 fL 05/06/2022 2:04 PM BAND REAMER MACHINE OPERATOR RDWG RBC Distrib Width 14.3 12.2 - 16.1 % 05/06/2022 2:04 PM BAND REAMER MACHINE OPERATOR RDW[facility] Platelet Count 202 157 - 371 x10(9)/L 05/06/2022 2:04 PM BAND REAMER MACHINE OPERATOR RDWG Leukocytes 6.8 3.4 - 9.6 x10(9)/L 05/06/2022 2:04 PM BAND REAMER MACHINE OPERATOR RDWG Neutrophils 4.77 1.56 - 6.45 x10(9)/L 05/06/2022 2:04 PM BAND REAMER MACHINE OPERATOR RDW[facility] Lymphocytes 1.24 0.95 - 3.07 x10(9)/L 05/06/2022 2:04 PM BAND REAMER MACHINE OPERATOR RDW[facility] Monocytes 0.65 0.26 - 0.81 x10(9)/L 05/06/2022 2:04 PM BAND REAMER MACHINE OPERATOR RDW[facility] Eosinophils 0.14 0.03 - 0.48 x10(9)/L 05/06/2022 2:04 PM BAND REAMER MACHINE OPERATOR RDW[facility] Basophils <0.03 0.01 - 0.08 x10(9)/L 05/06/2022 2:04 PM BAND REAMER MACHINE OPERATOR RDW[facility] Blood (Blood, Venous) 05/06/2022 1:56 PM BAND REAMER MACHINE OPERATOR 05/06/2022 1:56 PM BAND REAMER MACHINE OPERATOR Mari Noguera M.D. LAB BLOOD ADD-ON [facility] [address] [phone], [facility] RDW[facility] in [place] [address] [phone] documented in this encounter Visit Diagnoses Diagnosis Multiple Myeloma Not Having Achieved Remission (HCC)- Primary Transplant Stem Cell (HCC) documented in this encounter
--- OUTSIDE RECORDS SUMMARY | 2023-03-08 09:00 | XMS_ITS | Encounter Summary ---
Author Name Unknown Organization [facility] Address [address] [place] [address] Care Team Providers Care Head Track Coach Name Role Phone Unavailable Primary Care Provider Unavailabl e Encounter Details Date Type Department Care Team (Late st Contact Info) Description 03/19/2022 Clinical Communication Division of Hematology in [place], [place] [address] [place] [address] Silver Turcios M.B.B.S. [address] [place] [address] Social History Tobacco Use Types Packs/Day Years [...] often do you attend chur ch or yarsanism services? 1 to 4 times [...] [facility] Answer [...] st Contact Info) Description 03/16/2023 10:30 AM HOSTESS HOST Appointment Department of Laboratory Medicine in [place] [address] [facility] [place] [phone] Mari Noguera M.D. [address] [place] [phone] 03/17/2023 8:40 AM HOSTESS HOST Office Visit Department of Oncology in [place] [address] [place] [phone] Mari Noguera [place] [phone] 03/17/2023 9:45 AM HOSTESS HOST Infusion Department of Infusion Therapy in [address] [place] [phone] Mari Noguera M.D. [address] [place] [phone] 03/31/2023 10:10 AM HOSTESS HOST Appointment Department of Laboratory Medicine in [address] [phone] Mari Noguera M.D. [address] [place] [phone] 04/04/2023 8:20 AM HOSTESS HOST Office Visit Department of Oncology in [place] [address] [facility] [place] [address] Mari Noguera M.D. [address] [place] [phone] 04/04/2023 9:00 AM HOSTESS HOST Infusion Department of Infusion Therapy in [address] [phone] Mari Noguera M.D. [address] [place] [phone] 04/13/2023 10:10 AM HOSTESS HOST Appointment Department of Laboratory Medicine in [address] [phone] Mari Noguera M.D. [address] [place] [phone] 04/14/2023 9:00 AM HOSTESS HOST Infusion Department of Infusion Therapy in [place], [place] [address] [place] [phone] Mari Noguera M.D. [address] [place] [phone] documented as of this encounter Visit Diagnoses Not on filedocumented in this encounter
--- OUTSIDE RECORDS SUMMARY | 2023-03-08 09:00 | XMS_ITS | Encounter Summary ---
Author Name Unknown Organization [facility] Address [address] [place] [address] Care Team Providers Care Upsetting Machine Operator Name Role Phone Unavailable Primary Care Provider Unavailabl e Encounter Details Date Type Department Care Team (Late st Contact Info) Description 03/19/2022 Clinical Communication Division of Hematology in [place], [place] [address] [place] [address] Silver Turcios M.B.B.S. [address] [place] [address] Social History Tobacco Use Types Packs/Day Years [...] often do you attend chur ch or taoism services? 1 to 4 times per year [...] 4 11/18/2021 [facility] Questionnaire Answer Date [...] encounter Miscellaneous Notes * Telephone Encounter - Silevr Turcios M.B.B.S. - 03/19/2022 1:14 PM IMAGING NURSE Got a call that Michelle was admitted to the ER and was found to be COVID +. Ok for her to get paxlovid. She should not start any bortezomib/ Revlimid right now which she is ill. Will let her primary manager flight operations know. She should have appointments coming up next week. ING NURSE documented in this encounter Plan of Treatment Upcoming Encounters Date Type Department Care Team (Late st Contact Info) Description 03/16/2023 10:30 AM IMAGING NURSE Appointment Department of Laboratory Medicine in [address] [phone] Mari Noguera M.D. [address] [place] [phone] 03/17/2023 8:40 AM IMAGING NURSE Office Visit Department of Oncology in [address] [phone] Mari Noguera M.D. [address] [place] [phone] 03/17/2023 9:45 AM IMAGING NURSE Infusion Department of Infusion Therapy in [address] [phone] Mari Noguera M.D. [address] [place] [phone] 03/31/2023 10:10 AM IMAGING NURSE Appointment Department of Laboratory Medicine in [address] [place] [address] Mari Noguera M.D. [address] [place] [phone] 04/04/2023 8:20 AM IMAGING NURSE Office Visit Department of Oncology in [address] [phone] Mari Noguera M.D. [address] [place] [phone] 04/04/2023 9:00 AM IMAGING NURSE Infusion Department of Infusion Therapy in [place] [address] [place] [phone] Mari Noguera M.D. [address] [place] [phone] 04/13/2023 10:10 AM IMAGING NURSE Appointment Department of Laboratory Medicine in [address] [phone] Mari Noguera M.D. [address] [place] [phone] 04/14/2023 9:00 AM IMAGING NURSE Infusion Department of Infusion Therapy in [place] [address] [place] [phone] Mari Noguera M.D. [address] [place] [phone] documented as of this encounter Visit Diagnoses Not on filedocumented in this encounter
--- OUTSIDE RECORDS SUMMARY | 2023-03-08 09:00 | XMS_ITS | Encounter Summary ---
Author Name Unknown Organization [facility] Address [address] [place] [address] Care Team Providers Care Night Custodian Name Role Phone Unavailable Primary Care Provider Unavailabl e Encounter Details Date Type Department Care Team (Latest Contact Info) Description 03/18/2022 9:01 AM CRYOGENICS REPAIRER - 03/18/2022 11:59 PM [facility] Hospital Encounter Department of Laboratory Medicine in [place], [place] [address] [place] [phone] Mari Noguera M.D. [address] [place] [address] Multiple Myeloma In Remission (HCC); Transplant Stem Cell (HCC) Discharge Disposition: Home or Self Care [...] How often do you attend chur or holiness services? 1 to 4 times [...] Answer Date Recorded PHQ-2 Score 4 11/18/2021 [facility] - [...] a day. 60 capsule 11 11/30/2021 08/11/2022 escitalopram (LEXAPRO) 10 mg tablet Take 1 tablet (10 mg total) by mouth daily. 30 tablet 3 01/14/2022 05/04/2022 penicillin V potassium (VEETIDS) 500 mg tablet Take 1 tablet (500 mg total) by mouth 2 (two) times a day. 60 tablet 11 12/01/2021 12/08/2022 documented as of this encounter Plan of Treatment Upcoming Encounters Date Type Department Care Team (Late st Contact Info) Description 03/16/2023 10:30 AM CRYOGENICS REPAIRER Appointment Department of Laboratory Medicine in [address] [place] [address] Mari Noguera M.D. [address] [place] [phone] 03/17/2023 8:40 AM CRYOGENICS REPAIRER Office Visit Department of Oncology in [address] [phone] Mari Noguera M.D. [address] [place] [phone] 03/17/2023 9:45 AM CRYOGENICS REPAIRER Infusion Department of Infusion Therapy in [address] [phone] Mari Noguera M.D. [address] [place] [phone] 03/31/2023 10:10 AM CRYOGENICS REPAIRER Appointment Department of Laboratory Medicine in [address] [place] [address] Mari Noguera M.D. [address] [place] [phone] 04/04/2023 8:20 AM CRYOGENICS REPAIRER Office Visit Department of Oncology in [address] [phone] Mari Noguera M.D. [address] [place] [phone] 04/04/2023 9:00 AM CRYOGENICS REPAIRER Infusion Department of Infusion Therapy in [address] [phone] Mari Noguera M.D. [address] [place] [phone] 04/13/2023 10:10 AM CRYOGENICS REPAIRER Appointment Department of Laboratory Medicine in [place] [address] [facility] [phone] Mari Noguera M.D. [address] [place] [phone] 04/14/2023 9:00 AM CRYOGENICS REPAIRER Infusion Department of Infusion Therapy in [place] [address] [place] [phone] Mari Noguera M.D. [address] [place] [phone] documented as of this encounter Procedures Procedure Name Priority Date/Time Associated Diagnosis Comments CBC WITH DIFFERENTIAL, B Routine 03/18/2022 9:08 AM CRYOGENICS REPAIRER Multiple Myeloma In Remission (HCC) Transplant Stem Cell (HCC) COMPREHENSIVE METABOLIC PANEL, S/P Routine 03/18/2022 9:08 AM CRYOGENICS REPAIRER Multiple Myeloma In Remission (HCC) Transplant Stem Cell (HCC) documented in this encounter Results * (ABNORMAL) Comprehensive Metabolic Panel (03/18/2022 9:08 AM CRYOGENICS REPAIRER) Potassium, P 4.0 3.6 - 5.2 mmol/L 03/18/2022 9:41 AM CRYOGENICS REPAIRER [facility] Sodium, P 133(L) 135 - 145 mmol/L 03/18/2022 9:41 AM CRYOGENICS REPAIRER [facility] Chloride, P 96(L) 98 - 107 mmol/L 03/18/2022 9:41 AM CRYOGENICS REPAIRER [facility] Bicarbonate, P 25 22 - 29 mmol/L 03/18/2022 9:41 AM CRYOGENICS REPAIRER [facility] Anion Gap, P 12 7 - 15 03/18/2022 9:41 AM CRYOGENICS REPAIRER [facility] BUN (Blood Urea Nitrogen), P 17 6 - 21 mg/dL 03/18/2022 9:41 AM CRYOGENICS REPAIRER [facility] Creatinine 0.95 0.59 - 1.04 mg/dL 03/18/2022 9:41 AM CRYOGENICS REPAIRER [facility] Estimated GFR (eGFR) 63 >=60 mL/min/BS A 03/18/2022 9:41 AM CRYOGENICS REPAIRER [facility] Comment: Estimated GFR calculated using the 2020 CKD_EPI creatinine equation. Calcium, Total, P 9.6 8.8 - 10.2 mg/dL 03/18/2022 9:41 AM CRYOGENICS REPAIRER [facility] Glucose, P 96 70 - 140 mg/dL 03/18/2022 9:41 AM CRYOGENICS REPAIRER [facility] Protein, Total, P 6.7 6.3 - 7.9 g/dL 03/18/2022 9:41 AM CRYOGENICS REPAIRER [facility] Albumin, P 4.1 3.5 - 5.0 g/dL 03/18/2022 9:41 AM CRYOGENICS REPAIRER [facility] Aspartate Aminotransferase (AST), P 27 8 - 43 U/L 03/18/2022 9:41 AM CRYOGENICS REPAIRER [facility] Alkaline Phosphatase, P 64 35 - 104 U/L 03/18/2022 9:41 AM CRYOGENICS REPAIRER [facility] Alanine Aminotransferase (ALT), P 20 7 - 45 U/L 03/18/2022 9:41 AM CRYOGENICS REPAIRER [facility] Bilirubin, Total, P 0.2 <=1.2 mg/dL 03/18/2022 9:41 AM CRYOGENICS REPAIRER [facility] Blood (Blood, Venous) 03/18/2022 9:08 AM CRYOGENICS REPAIRER 03/18/2022 9:15 AM CRYOGENICS REPAIRER Mari Noguera M.D. LAB BLOOD ADD-ON [facility] [address] [address], [place] [facility] in [place] [address] [phone] * (ABNORMAL) CBC with Differential, Blood (03/18/2022 9:08 AM CRYOGENICS REPAIRER) Hemoglobin 12.1 11.6 - 15.0 g/dL 03/18/2022 9:31 AM CRYOGENICS REPAIRER [facility] Hematocrit 38.1 35.5 - 44.9 % 03/18/2022 9:31 AM CRYOGENICS REPAIRER [facility] Erythrocytes 4.05 3.92 - 5.13 x10(12)/L 03/18/2022 9:31 AM CRYOGENICS REPAIRER [facility] MCV 94.1 78.2 - 97.9 fL 03/18/2022 9:31 AM CRYOGENICS REPAIRER [facility] RBC Distrib Width 13.1 12.2 - 16.1 % 03/18/2022 9:31 AM CRYOGENICS REPAIRER [facility] Platelet Count 138(L) 157 - 371 x10(9)/L 03/18/2022 9:31 AM CRYOGENICS REPAIRER [facility] Leukocytes 6.6 3.4 - 9.6 x10(9)/L 03/18/2022 9:31 AM CRYOGENICS REPAIRER [facility] Neutrophils 4.95 1.56 - 6.45 x10(9)/L 03/18/2022 9:31 AM CRYOGENICS REPAIRER [facility] Lymphocytes 0.87(L) 0.95 - 3.07 x10(9)/L 03/18/2022 9:31 AM CRYOGENICS REPAIRER [facility] Monocytes 0.72 0.26 - 0.81 x10(9)/L 03/18/2022 9:31 AM CRYOGENICS REPAIRER [facility] Eosinophils <0.03 0.03 - 0.48 x10(9)/L 03/18/2022 9:31 AM CRYOGENICS REPAIRER [facility] Basophils <0.03 0.01 - 0.08 x10(9)/L 03/18/2022 9:31 AM CRYOGENICS REPAIRER [facility] Blood (Blood, Venous) 03/18/2022 9:08 AM CRYOGENICS REPAIRER 03/18/2022 9:15 AM CRYOGENICS REPAIRER Mari Noguera M.D. LAB BLOOD ADD-ON [facility] [address] [phone], [facility] RDWG [facility] [place] [address] [phone] documented in this encounter Visit Diagnoses Diagnosis Multiple Myeloma In Remission (HCC) Transplant Stem Cell (HCC) documented in this encounter
--- OUTSIDE RECORDS SUMMARY | 2023-03-08 09:00 | XMS_ITS | Encounter Summary ---
Author Name Unknown Organization [facility] Address [address] [place] [address] Care Team Providers Care Regulatory Associate Name Role Phone Unavailable Primary Care Provider Unavailabl e Encounter Details Date Type Department Care Team (Late st Contact Info) Description 03/07/2022 Orders Only Department of Oncology in [place], [place] [address] [place] [address] Mari Noguera M.D. [address] [place] [phone] Social History Tobacco Use Types Packs/Day Years [...] 11/18/2021 [facility] Answer Date [...] st Contact Info) Description 03/16/2023 10:30 AM MICA INSPECTOR Appointment Department of Laboratory Medicine in [place] [address] [facility] [place] [phone] Mari Noguera M.D. [address] [place] [phone] 03/17/2023 8:40 AM MICA INSPECTOR Office Visit Department of Oncology in [place] [address] [place] [phone] Mari Noguera M.D. [facility] [place] [phone] 03/17/2023 9:45 AM MICA INSPECTOR Infusion Department of Infusion Therapy in [address] [place] [address] Mari Noguera M.D. [address] [place] [phone] 03/31/2023 10:10 AM MICA INSPECTOR Appointment Department of Laboratory Medicine in [address] [phone] M[address] [facility] [place] [phone] 04/04/2023 8:20 AM MICA INSPECTOR Office Visit Department of Oncology in [address] [place] [address] Mari Noguera M.D. [address] [place] [phone] 04/04/2023 9:00 AM MICA INSPECTOR Infusion Department of Infusion Therapy in [address] [phone] Mari Noguera M.D. [address] [place] [phone] 04/13/2023 10:10 AM MICA INSPECTOR Appointment Department of Laboratory Medicine in [address] [address] Mari Noguera M.D. [address] [place] [address], [place] [phone] 04/14/2023 9:00 AM MICA INSPECTOR Infusion Department of Infusion Therapy in [place], [place] [address] [place] [phone] Mari Noguera M.D. [address] [place] [phone] documented as of this encounter Visit Diagnoses Not on filedocumented in this encounter
--- OUTSIDE RECORDS SUMMARY | 2023-03-08 09:01 | XMS_ITS | Encounter Summary ---
Author Name Unknown Organization [facility] Address [address] [place] [address] Care Team Providers Care Financial Reserve Clerk Name Role Phone Panchito Briones MD Primary Care Provider [phone] Encounter Details Date Type Department Care Team Description 04/24/2003 Hospital None Unknown, Physician [address] [place], [place] [phone] [facility] Report of Discharge Summary Social History Tobacco Use Types Packs/Day Years Used Date Smoking Tobacco: Former Cigarettes 0.5 35 0 08/13/1969 - 08/13/2004 Smokeless Tobacco: Never Alcohol Use Standard Drinks/Week Comments No 0 (1 standard drink = 0.6 oz pur e alcohol) Sex and Gender Information Value Date Recorded Sex Assigned at Not on file Gender Identity Not on file Sexual Orientation Not on file documented as of this encounter Progress Notes * Unknown, Physician - 04/24/2003 12:00 AM GRAPPLE CREW LEADER documented in this encounter Plan of Treatment Upcoming Encounters Date Type Department Care Team Description 03/20/2023 10:30 AM GRAPPLE CREW LEADER Appointment [facility] [address] [place], [place] [phone] Marily Solis MD [address] [place] [phone] documented as of this encounter Visit Diagnoses Not on filedocumented in this encounter Care Teams Financial Reserve Clerk Relationship Specialty Start Date End Date Panchito Briones MD [facility] [address] [place] [address] PCP - General Family Practice 11/23/22 documented as of this encounter
--- OUTSIDE RECORDS SUMMARY | 2023-03-08 09:01 | XMS_ITS | Encounter Summary ---
Author Name Unknown Organization [facility] Address [address] [place] [address] Care Team Providers Care Clicking Machine Operator Name Role Phone Panchito Briones MD Primary Care Provider [phone] Encounter Details Date Type Department Care Team Description 06/10/2002 [facility] [place], [place] [phone] Adolfo Benito MD INTEST ADHES W OBSTR POST OP/INFECT; VENTRAL HERNIA NOS Social History Tobacco Use Types Packs/Day Years [...] on file documented as of this encounter Plan of Treatment Upcoming Encounters Date Type Department Care Team Description 03/20/2023 10:30 AM CIGARETTE PAPER TESTER Appointment [facility] [address] [place] [address] Marily Solis MD [address] [place], [place] [phone] documented as of this encounter Visit Diagnoses Diagnosis Intestinal or peritoneal adhesions with obstruction (postoperative) (postinfection) (HRC) Intestinal or peritoneal adhesions with obstruction (postoperative) (postinfection) Ventral hernia, unspecified, without mention of obstruction or gangrene documented in this encounter Care Teams Clicking Machine Operator Relationship Specialty Start Date End Date Panchito Briones MD [facility] [address] [place] [address] PCP - General Family Practice 11/23/22 documented as of this encounter
--- OUTSIDE RECORDS SUMMARY | 2023-03-08 09:01 | XMS_ITS | Encounter Summary ---
Author Name Unknown Organization [facility] Address [address] [place] [address] Care Team Providers Care Mathematical Engineering Technician Name Role Phone Panchito Briones MD Primary Care Provider [phone] Encounter Details Date Type Department Care Team Description 05/19/2003 [facility] Internal Medicine [place] [address] [place] [address] Dafne Sellers MD History and [facility] Social History Tobacco Use Types Packs/Day Years [...] as of this encounter Progress Notes * Dafne Sellers - 05/19/2003 12:00 AM FORM BUILDER BUILDER * Dafne Sellers - 05/19/2003 12:00 AM FORM BUILDER BUILDER documented in this encounter Plan of Treatment Upcoming Encounters Date Type Department Care Team Description 03/20/2023 10:30 AM FORM BUILDER Appointment [facility] [address] [place] [address] Marily Solis MD [address] [place] [address] documented as of this encounter Visit Diagnoses Not on filedocumented in this encounter Care Teams Mathematical Engineering Technician Relationship Specialty Start Date End Date Panchito Briones MD [facility] [address] [place] [address] PCP - General Family Practice 11/23/22 documented as of this encounter
--- OUTSIDE RECORDS SUMMARY | 2023-03-08 09:01 | XMS_ITS | Encounter Summary ---
Author Name Unknown Organization [facility] Address [address] [place] [address] Care Team Providers Care Van Owner Operator Name Role Phone Panchito Briones MD Primary Care Provider [phone] Encounter Details Date Type Department Care Team Description 10/04/2011 Consent for Procedure/Treatment Regions Department Social History Tobacco Use Types Packs/Day Years [...] Department Care Team Description 03/20/2023 10:30 AM GEOLOGICAL SAMPLE TESTER Appointment [facility] [address] [place], [place] [phone] Marily Solis MD [facility] [place] [address] documented as of this encounter Visit Diagnoses Not on filedocumented in this encounter Care Teams Van Owner Operator Relationship Specialty Start Date End Date Panchito Briones MD [facility] [address] [place] [address] PCP - General Family Practice 9/27/23 documented as of this encounter
--- OUTSIDE RECORDS SUMMARY | 2023-03-08 09:01 | XMS_ITS | Encounter Summary ---
Author Name Unknown Organization [facility] Address [address] [place] [address] Care Team Providers Care Baker Head Name Role Phone Panchito Briones MD Primary Care Provider [phone] Encounter Details Date Type Department Care Team Description 08/04/2012 Outside Hospital External to External, [place] [address] HISTORY PHYSICAL Social History Tobacco Use Types Packs/Day Years [...] as of this encounter Progress Notes * External, Provider - 08/04/2012 12:00 AM CDT documented in this encounter Plan of Treatment Upcoming Encounters Date Type Department Care Team Description 03/20/2023 10:30 AM ORE SAMPLER Appointment [facility] [address] [place] [address] Marily Solis MD [address] [place], [place] [phone] documented as of this encounter Visit Diagnoses Not on filedocumented in this encounter Care Teams Baker Head Relationship Specialty Start Date End Date Panchito Briones MD [facility] [address] [place] [address] PCP - General Family Practice 11/23/22 documented as of this encounter
--- OUTSIDE RECORDS SUMMARY | 2023-03-08 09:01 | XMS_ITS | Encounter Summary ---
Author Name Unknown Organization [facility] Address [address] [place] [address] Care Team Providers Care Propellant Charge Loader Name Role Phone Panchito Briones MD Primary Care Provider [phone] Encounter Details Date Type Department Care Team Description 06/12/2002 [facility] Jimmie Lopez MD [address] [facility] [address] [place], [place] [phone] HYPERTENSION NOS Social History Tobacco Use Types Packs/Day [...] Department Care Team Description 03/20/2023 10:30 AM REPAIRER WELDING SYSTEMS AND EQUIPMENT Appointment [facility] [address] [place] [address] Marily Solis MD [address] [place] [address] documented as of this encounter Visit Diagnoses Diagnosis Unspecified essential hypertension (HRC) Unspecified essential hypertension documented in this encounter Care Teams Propellant Charge Loader Relationship Specialty Start Date End Date Panchito Briones MD [facility] [address] [place] [address] PCP - General Family Practice 11/23/22 documented as of this encounter
--- OUTSIDE RECORDS SUMMARY | 2023-03-08 09:01 | XMS_ITS | Encounter Summary ---
Author Name Unknown Organization [facility] Address [address] [place] [address] Care Team Providers Care Petroleum Refining Firer Name Role Phone Panchito Briones MD Primary Care Provider [phone] Encounter Details Date Type Department Care Team Description 06/12/2002 Hospital None Unknown, Physician [address] [place], [place] [phone] [facility] OPERATIVE REPORT Social History Tobacco Use Types Packs/Day Years [...] encounter Progress Notes * Unknown, Physician - 06/12/2002 12:00 AM CDT documented in this encounter Plan of Treatment Upcoming Encounters Date Type Department Care Team Description 03/20/2023 10:30 AM FRONT END SOFTWARE DEVELOPER Appointment [facility] [address] [place], [place] [address] Marily Solis MD [facility] [place], [place] [address] documented as of this encounter Visit Diagnoses Not on filedocumented in this encounter Care Teams Petroleum Refining Firer Relationship Specialty Start Date End Date Panchito Briones MD [facility] [address] [place] [address] PCP - General Family Practice 11/23/22 documented as of this encounter
--- OUTSIDE RECORDS SUMMARY | 2023-03-08 09:01 | XMS_ITS | Clinical Summary ---
Author Name Unknown Organization [facility] Address [address] [place] [address] Care Team Providers Care Aircraft Powertrain Repairer Name Role Phone Panchito Briones MD Primary Care Provider [phone] Source Comments You are receiving this document as you are listed as the primary care provider,follow-up provider, or the patient has been referred to you for consultation.This is in compliance with the Medicare and[facility] EHR Incentive Program,which states Providers who transition their patient to another setting of careor provider of care or refers their patient to another provider of care shouldprovide summary care record for each transition of care or referral. [facility] Allergies Active Allergy Reactions Criticality Noted Date Comments Adhesive Other, see comments 12/07/2021 Blister/redness Medications Medication Sig Dispensed Refills Start Date End Date Status loperamide (IMODIUM) 2 MG capsuleIndication s:microscopic colitis Take 1-2 Caps by mouth 4 times daily as needed for Diarrhea. Indications: microscopic colitis 240 Cap 11 06/22/2017 Active acyclovir (ZOVIRAX) 200 MG capsule Take 2 Capsules (400 mg) by mouth two times a day. 0 12/31/2021 Active cyanocobalamin (VITAMIN B12) 1000 MCG tablet Take 1 Tablet (1,000 mcg) by mouth daily. 0 Active LORazepam (ATIVAN) 0.5 MG tablet Take 1 Tablet (0.5 mg) by mouth three times a day as needed. 0 12/20/2021 Active metFORMIN (GLUCOPHAGE) 500 MG tablet 500 mg with AM meal, 1000 mg with PM meal 0 10/25/2021 Active penicillin V potassium (PEN VK) 500 MG tablet Take 1 Tablet (500 mg) by mouth two times a day. 0 12/01/2021 Active atenolol (TENORMIN) 50 MG tablet Take 1.5 Tablets (75 mg) by mouth daily. 180 Tablet 3 01/13/2022 Active lisinopril (ZESTRIL) 40 MG tablet Take 1 Tablet (40 mg) by mouth daily. 0 04/25/2022 Active aspirin EC (ECOTRIN) 325 MG enteric coated tablet Take 1 Tablet (325 mg) by mouth daily. 0 03/28/2022 Active Magnesium Chloride 70 MG TBEC Take 2 Tablets (140 mg) by mouth daily. 0 09/01/2022 Active ondansetron (ZOFRAN) 8 MG tablet Take 1 Tablet (8 mg) by mouth every 8 hours as needed. 0 03/28/2022 03/28/2023 Active bortezomib 3.5 MG injection Administer 2.5 mg/m2 intravenously every 14 days. 0 Active amoxicillin (AMOXIL) 875 MG tablet Take 1 Tablet (875 mg) by mouth two times a day. 0 08/16/2022 Active triamcinolone acetonide (KENALOG) 0.1 % cream Apply 1 Application topically. 0 07/11/2022 Active prochlorperazine (COMPAZINE) 10 MG tablet Take 1 Tablet (10 mg) by mouth every 6 hours as needed. 0 03/28/2022 03/28/2023 Active Active Problems Patient Care Coordination No te Formatting of this note migh t be different from the original. DM case closed . Goals met for cancer care. DM Called patient and clinic regarding service introduction and patient for DCM support service . Offered clinic DCM support towards patient's plan of care. Left RN name and phone number with clinic. Cele Chong RN Problem Noted Date Diagnosed Date Prediabetes 01/16/2018 Lymphocytic colitis 06/22/2017 Primary osteoarthritis of right hip 12/07/2016 CAREPLAN: ADVANCE DIRECTIVES/CODE STATUS 016 Hx SBO 07/20/2015 Overview: Total of 4 episodes of small bowel obstruction Essential hypertension 07/09/2015 Renal cyst, left 07/09/2015 Overview: Noted incidentally on 07/09/2015 CT. Will need outpatient follow up with MRI if not previously evaluated. 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 Right upper lobe nodule was noted to be densely calcified on the December 2007 CT scan so no further CT scans were advised by Dr. Eduardo Higgins. ; right upper lobe Pulmonary granuloma Trigger finger, acquired 10/03/2011 Overview: Epic Hyperlipidemia with target LDL less than 100 05/2010 Overview: ICD 10 CPAP (continuous positive airway pressure) depen dence 02/17/2010 Obstructive sleep apnea 02/17/2010 Overview: Epic Dependence on continuous pos itive airway pressure ventilation 02/17/2010 Monoclonal paraproteinemia 09/26/2008 Shoulder impingement syndrome 04/19/2007 Impaired fasting glucose 05/30/2005 History of colonic polyps 12/29/2003 Overview: tubular adenoma and hyperplastic polyp Epic Contact dermatitis and eczema 05/12/2003 Overview: Contact dermatitis and other eczema, due to unspecified cause Major depressive disorder, recurrent episode Overview: [facility] Essential hypertension 05/31/2002 Overview: Epic Class 2 severe obesity with serious comorbidity and body mass index (BMI) of 38.0 to 38.9 in adult 05/31/2002 Overview: [facility] Resolved Problems Problem Noted Date Diagnosed Date Resolved Date SBO (small bowel obstruction) 07/09/2015 05/03/2017 Hyperlipidemia 07/09/2015 01/16/2018 Left upper quadrant pain 07/09/201508/2017 Radial tunnel syndrome 10/03/201110/03 Disturbance in sleep behavior 05/12/2003 01/16/2018 Overview: [facility] Immunizations Name Administration Dates Next Due Flu Vac (3+ yrs) 03/29/2012, 1,11/27/2009, 009,12/11/2006,12/13/2005,01/13/2005 [id number] 01/01/2009 Influenza IIV3 (Trivalent) Darline Chauhandose, 65+ Yrs (08345) 12/27/2018,12/14/2017,12/07/2016, 016,12/11/2014 Influenza IIV4 (Quadrivalent ) 0.5mL (30180) 05/20/2013 PCV13 (Prevnar) 12/11/2014 PPSV23 (Pneumovax) 12/07/2016,11/27/2009 Td 09/23/1996,02/26/1983 Td (7+ yrs) 07/27/2006 Tdap 06/30/2010 Zoster (Zostavax) 03/29/2012 Family History Medical History Relation Name Comments Cerebrovascular Disease Father Coronary Artery Disease Father ID a ge 87 Heart Disease Father Hypertension Father Kidney Disorder Father stones Cataract Mother High Blood Pressure Mother Hypertension Mother Thromboembolic Disease Mother Alcohol/Drug Abuse Daughter Cancer, Breast Maternal Aunt Coronary Artery Disease Maternal Grandfather ID age 86 Macular Degeneration Maternal Grandfather Cancer, Breast Paternal Aunt Other Sister 3 mentally retard ed Migraines Sister 4 Diabetes, Type II Negative Family History Glaucoma Negative Family History Thyroid Disorder Negative Family History Relation Name Status Comments Father (Age 87) in 16 05 Mother (Age 88) June 28 Brother Alive Daughter Maternal Aunt Maternal Grandfather Paternal Aunt Sister 1 Alive Sister 2 Alive Sister 3 Sister 4 Social History Tobacco Use Types Packs/Day Years [...] Sign Reading Time Taken Comments Blood Pressure 172/79 01/01/2019 10:13 AM COMPUTER INSTALLER Pulse 57 01/01/2019 10:13 AM COMPUTER INSTALLER Temperature 36.6 ??C (97.9 ??F) 01/01/2019 10:[address] Respiratory Rate 16 01/01/2019 10:13 AM COMPUTER INSTALLER Oxygen Saturation 100% 06/06/2017 3:41 PM CDT Inhaled Oxygen Concentration - - Weight 97.1 kg (214 lb) 01/01/2019 10:13 AM COMPUTER INSTALLER Height 160 cm (5' 3) 01/01/2019 10:13 AM COMPUTER INSTALLER Body Mass Index 37.91 01/01/2019 10:13 AM COMPUTER INSTALLER Plan of Treatment Upcoming Encounters Date Type Department Care Team Description 03/20/2023 10:30 AM COMPUTER INSTALLER Appointment [facility] [address] [place] [address] Marily Solis MD [facility] [place] [address] Health Maintenance Due Date Last Done Comments COVID-19 Vaccine (#1) 04/11/1946 Mammogram 01/16/2019 01/16/2018, 10/2016, 12/31/2014, Additional history exists Prediabetes: HGBA1C 05/25/2019 05/24/2018, 05/03/2017, 12/07/2016 Colonoscopy 06/06/2022 06/06/2017, 03/30, 10/04/2011, Additional history exists Influenza (#1) 2022 12/31/2021, 01/28, 12/17/2019, Additional history exists Zoster/Shingles (3 of 3) 10/31/2022 09/05/2022, 03/01 Medicare Annual Wellness Visit 02/27/2023 01/16/2018, 12/07/2016 MTM Targeted 09/02/2023 09/01/2022, 07/2022, 01/13/2022, Additional history exists DTaP/Tdap/Td (4 - Tdap) 09/05/2032 09/06/19 23, 04/15/2022, 06/30/2010, Additional history exists Dexa Completed 12/31/2014, 07/28, 08/10/2006 Hep C Screening (Preventive Services) Completed 12/07/2016 Cholesterol Discontinued 05/24/2018, 2018, 10/03/2013, Additional history exists HepA Aged Out 09/05/2022 No longer eligi ble based on patient's age to complete this topic IPV (Polio) Aged Out 09/05/2022 No longer eligi ble based on patient's age to complete this topic MCV4 Aged Out 09/05/2022 No longer eligi ble based on patient's age to complete this topic Pneumococcal 65+ Yrs Completed 09/05/2022, 03/06/2019, 12/07/2016, Additional history exists HepB Aged Out No longer eligi ble based on patient's age to complete this topic Hib Aged Out No longer eligi ble based on patient's age to complete this topic Medical Devices Implanted Type Area Rn Progressive Care Device Identifier Shelf Expiration Date Model / Serial / Lot Graft Alloderm [id number] - [id number] Implanted:Qty: 1 on 05/01/2006 at [facility] DEVICE N/A: [employer]BD[employer] Cell [id number] / / [id number] Graft Alloderm [id number] - [id number] Implanted:Qty: 2 on 05/01/2006 at [facility] REFR N/A: [employer] Life Cell 01/28/2008 [id number] / / [id number] Graft Alloderm [id number] - [id number] Implanted:Qty: 1 on 05/01/2006 at [facility] N/A: ABDOMEN Life Cell 04/28/2007 [id number] / / [id number] Advance Directives Documents on File Type Date Recorded Patient Rotor Blade Installer Expl anation Advance Directives and Living Will 08/19/2004 Power of Hand Scraper 08/19/2004 Latest Code Status on File Code Status Date Activated Date Inactivated Comments Full Code 02/04/2016 7:01 PM 02/06/2016 1:38 PM Code Status History Code Status Date Activated Date Inactivated Comments Full Code 07/09/2015 7:04 PM 07/10/2015 8:01 PM Full Code 05/01/2006 5:01 PM 05/06/2006 4:16 PM None 04/14/2004 1:55 PM 04/14/2004 2:55 PM Care Teams Aircraft Powertrain Repairer Relationship Specialty Start Date End Date Panchito Briones MD [facility] [address] [place] [address] PCP - General Family Practice 11/23/22
--- OUTSIDE RECORDS SUMMARY | 2023-03-08 09:01 | XMS_ITS | Encounter Summary ---
Author Name Unknown Organization [facility] Address [address] [place] [address] Care Team Providers Care Die Turner Name Role Phone Panchito Briones MD Primary Care Provider [phone] Reason for Visit * Reason Comments SKIN LESION Upper middle back le dm x 1 year ago. Daughter Reyna noted it is larger. History of BCC and SCC. Encounter Details Date Type Department Care Team Description 11/23/2022 2:00 PM CDT Office Visit [facility] [address] [place] [address] Marily Solis MD [address] [place] [address] Inflamed epidermoid cyst of skin (Primary Dx) Social History Tobacco Use Types [...] on file documented as of this encounter Patient Instructions * Patient Instructions* Cele Turner LPN - 11/23/2022 2:00 PM CDT documented in this encounter Progress Notes * Marily Solis MD - 11/23/2022 2:00 PM CDT DERMATOLOGY OFFICE VISIT Last Visit: 12/27/2019 Dermatologic history: SCC, right anterior lower leg, shave removal 12/2018 H/o BCC on L temporal scalp -H/o atypical melanocytic hyperplasia on R upper arm -Periorbital dermatitis. Continue Protopic 0.1% oint BID PRN Family history melanoma in brother Chief Complaint Patient presents with SKIN LESION Upper middle back lesion x 1 year ago. Daughter Reyna noted it is larger. History of BCC and SCC. History of Present Illness: Keysha Melendez is a 77 y.o. female who presents for spot of concern on the upper back. She hasa history of nonmelanoma skin cancer as above. Reports that she is had a dark spot on the upper back for at least one year per her daughter, but more recently significant redness surrounding the areawas noticed yesterday. The areas not painful, draining, or otherwise symptomatic. Pat reports that she is worried about any new spots on her body given her recent history of multiple myeloma and stem cell transplant. Past Medical History and Family History: Reviewed and updated in [facility] History of multiple myeloma status post ASCT day 0 12/02/2021 on bortezomib and lenalidomide Social History: Accompanied by her daughter today Medications: The patient has a current medication list which includes the following prescription(s): acyclovir, amoxicillin, aspirin ec, atenolol, bortezomib, cyanocobalamin, lenalidomide, lisinopril, loperamide,lorazepam, magnesium chloride, metformin, ondansetron, penicillin v potassium, prochlorperazine, and triamcinolone acetonide. Allergies: The patient is allergic to adhesive. Review of Systems: No other skin, hair, or nail concerns today. Physical Examination: General: Well-appearing female, in no distress, alert and oriented. Skin: Focused exam of the back was performed today. Pertinent findings as below. Exam otherwise was normal. Combined Exam, Assessment and Plan: 1. Inflamed Epidermal cyst Right Upper Back approximally 1.5 cm subcutaneous nodule with significant surrounding erythema and central large punctum We discussed that these are benign lesions. Discussed that they can cause inflammation if they rupture or traumatized. As she does have some erythema but no symptoms today, we did discuss options including injection of intralesional Kenalog, short course of antibiotics, I&D. She is already on penicillin following her stem cell transplant. She defers any interventions today, as the areas asymptomatic. Photographs taken for future comparison. Follow up: Return to clinic for full-body skin cancer screening given history, sooner for new concerns. Marily Solis MD [facility] documented in this encounter Plan of Treatment Upcoming Encounters Date Type Department Care Team Description 03/20/2023 10:30 AM DIRECTOR OF STAFF DEVELOPMENT Appointment [facility] [address] [place], [place] [id number] Marily Solis MD [address] [place] [address] documented as of this encounter Visit Diagnoses Diagnosis Inflamed epidermoid cyst of skin- Primary documented in this encounter Care Teams Die Turner Relationship Specialty Start Date End Date Panchito Briones MD [facility] [address] [place] [address] PCP - General Family Practice 11/23/22 documented as of this encounter
--- OUTSIDE RECORDS SUMMARY | 2023-03-08 09:01 | XMS_ITS | Encounter Summary ---
Author Name Unknown Organization [facility] Address [address], [place] [address] Care Team Providers Care Corporate General Manager Name Role Phone Unavailable Primary Care Provider Unavailabl e Reason for Visit * Reason Comments MEDICATION REVIEW AND EDUCATION Encounter Details Date Type Department Care Team Description 09/01/2022 10:00 AM CDT Phone Visit [facility] [address] [place] [address] Mirza Cheatham, PharmD [address] [place] [address] Polypharmacy (Primary Dx) Social History Tobacco Use Types [...] as of this encounter Progress Notes * Mirza Cheatham, PharmD - 09/01/2022 10:00 AM CDT Images from the original note were not included. Subjective Nicki Melendez is a 76 y.o. female who was referred by Medicare seen over the phone for medication review/education. Patient???s main concern today is - none. Tolerating chemotherapy well. Sees [facility] q2 weeks. Had fasting labs done for PCP yesterday, results not available. Multiple Myeloma s/p SCT (Nov 2021). Plans to get immunizations next week. These have been delayed by infections: contact dermatitis, URI, parotiditis. lenalidomide (REVLIMID) 10 MG capsule Take 1 Capsule (10 mg) by mouth. Take on days 1 through 21 ofcycle. Take whole with water. Do not break, chew, or open. bortezomib 3.5 MG injection Administer 2.5 mg/m2 intravenously every 14 days. aspirin EC (ECOTRIN) 325 MG enteric coated tablet Take 1 Tablet (325 mg) by mouth daily. acyclovir (ZOVIRAX) 200 MG capsule Take 2 Capsules (400 mg) by mouth two times a day x 1 yr post SCT penicillin V potassium (PEN VK) 500 MG tablet Take 1 Tablet (500 mg) by mouth two times a day. x 1 yr post SCT Type 2 diabetes, well controlled. Not currently receiving any steroids. Last reported A1c was 5.8. metFORMIN (GLUCOPHAGE) 500 MG tablet 500 mg with AM meal, 1000 mg with PM meal SMBG qAM <130 Prone to loose stools, but not requiring loperamide very often now. HTN. Lisinopril has been resumed. BP has been running high. 150's/70's at home. No longer on furosemide. Denies incr edema. atenolol (TENORMIN) 50 MG tablet Take 1.5 Tablets (75 mg) by mouth daily. lisinopril (ZESTRIL) 40 MG tablet Take 1 Tablet (40 mg) by mouth daily. HLD - previously on atorvastatin 40 mg but on hold. Patient suspects that this may be resumed, depending on lab results from yesterday. Anxiety LORazepam (ATIVAN) 0.5 MG tablet Take 1 Tablet (0.5 mg) by mouth three times a day as needed. Has not been using as much. Reports less than once a weekly at HS. Had been on escitalopram, but no longer taking that. Supplementation Magnesium Chloride 70 MG TBEC Take 2 Tablets (140 mg) by mouth daily. cyanocobalamin (VITAMIN B12) 1000 MCG tablet Take 1 Tablet (1,000 mcg) by mouth daily. PRN loperamide (IMODIUM) 2 MG capsule Take 1-2 Caps by mouth 4 times daily as needed for Diarrhea. Useswhen she leaves the house ondansetron (ZOFRAN) 8 MG tablet Take 1 Tablet (8 mg) by mouth every 8 hours as needed. (Patient not taking: Reported on 09/01/2022) Patient denies dizziness, lightheadedness, drowsiness, bruising, bleeding, cough, nausea, vomiting,abdominal pain, urination problems, muscle aches, weakness, fatigue, cramping, headache, sleep disruption, mood changes, or rash felt to be related to medication use. Adherence: # of times per day patient takes meds: 2, 3 # of missed doses in the past week: 0 Use of supportive adherence tools: pill box Med cost concerns: no, gets bob for Revlimid copay costs Objective Allergies Allergen Reactions Adhesive Other, see comments Blister/redness Last Filed Vital Signs Vital Sign Reading Time Taken Comments Blood Pressure 154/51 08/26/2022 2:21 PM CDT Pulse 49 08/26/2022 2:21 PM CDT Temperature 36.2 ??C (97.2 ??F) 08/26/2022 1:51 PM CDT Respiratory Rate 16 08/26/2022 2:21 PM CDT Oxygen Saturation 91% 08/26/2022 1:51 PM CDT Room air Inhaled Oxygen Concentration - - Weight 82.6 kg (182 lb 1.6 oz) 08/26/2022 1:51 PM CDT Height 156 cm (5' 1.42) 12/10/2021 1:49 PM CDT Body Mass Index 33.94 12/10/2021 1:49 PM CDT Recent Data from [facility] Related to CBC with Differential, Blood Component 08/26/22 08/19/22 08/03/22 07/22/22 07/08/22 06/21/22 Hemoglobin 11.8 11.1 Low 11.9 12.2 11.9 12.0 Hematocrit 38.9 35.8 38.8 39.9 39.5 39.6 Erythrocytes 4.15 3.84 Low 4.16 4.29 4.19 4.17 MCV 93.7 93.2 93.3 93.0 94.3 95.0 RBC Distrib Width 16.1 15.9 15.2 14.7 15.3 14.8 Platelet Count 148 Low 76 Low 109 Low 110 Low 126 Low 113 Low Leukocytes 4.9 3.6 3.2 Low 3.6 2.7 Low 5.1 Neutrophils 3.35 2.94 1.92 1.88 1.34 Low 3.17 Lymphocytes 0.77 Low 0.44 Low 0.71 Low 0.85 Low 0.49 Low 1.01 Monocytes 0.67 0.19 Low 0.39 0.39 0.48 0.50 Eosinophils 0.09 <0.03 0.17 0.47 0.29 0.34 Basophils 0.03 <0.03 0.03 0.04 0.07 0.05 View all related data Component 08/03/22 07/08/22 06/07/22 05/06/22 04/08/22 03/18/22 Potassium, P 5.0 4.1 4.4 4.3 4.2 4.0 Sodium, P 139 140 141 140 139 133 Low Chloride, P 106 101 102 101 99 96 Low Bicarbonate, P 26 29 29 30 High 29 25 Anion Gap, P 7 10 10 9 11 12 BUN (Blood Urea Nitrogen), P 19 20 18 17 20 17 Creatinine 1.09 High 1.19 High 1.02 0.85 0.93 0.95 Estimated GFR (eGFR) 53 Low 48 Low 58 Low 72 64 63 Calcium, Total, P 9.6 9.7 9.5 10.0 9.8 9.6 Glucose, P 91 107 139 87 108 96 Protein, Total, P 6.3 6.4 5.8 Low 6.7 6.8 6.7 Albumin, P 3.7 4.0 3.9 4.2 4.3 4.1 Aspartate Aminotransferase (AST), P 27 Alkaline Phosphatase, P 68 72 67 81 78 64 Alanine Aminotransferase (ALT), P 11 20 25 15 19 20 Bilirubin, Total, P 0.3 0.3 0.3 0.3 0.3 0.2 View all related data Component 08/03/22 07/08/22 06/07/22 05/06/22 04/08/22 03/18/22 Aspartate Aminotransferase (AST), P 24 23 20 19 27 Aspartate Aminotransferase (AST), S -- -- -- -- -- -- Recent Data from [facility] Related to Monoclonal Protein Study, Expanded Panel Component 08/26/22 08/19/22 07/22/22 06/21/22 05/20/2220/22 Total Protein, S 5.7 Low 5.8 Low 6.0 Low 5.9 Low 5.9 Low 6.2 Low [place] Free Light Chain, S 1.10 1.21 2.10 High 0.8300 0.7100 -- Lambda Free Light Chain, S 1.23 1.49 1.75 1.22 0.9200 -- [place]/Lambda FLC Ratio 0.8943 0.8121 1.20 0.6803 0.7717 -- Albumin 3.9 3.9 4.0 4.2 4.1 3.6 Alpha-1 Globulin 0.2 0.2 0.2 0.2 0.2 0.3 Alpha-2 Globulin 0.6 0.7 0.7 0.6 0.7 1.0 Beta-Globulin 0.6 Low 0.6 Low 0.6 Low 0.6 Low 0.6 Low 0.9 Gamma-Globulin 0.4 Low 0.4 Low 0.4 Low 0.3 Low 0.3 Low 0.4 Low A/G Ratio 2.22 2.11 2.06 2.52 2.28 1.37 Impression Small abnormality in gamma fraction. Reviewed and interpreted by: Daren Tobar M.D. Small abnormality in gamma fraction. Reviewed and interpreted by: Chante Bryan M.D. Small abnormality in gamma fraction. Reviewed and interpreted by: Jeannie Rogers M.D. Small abnormality in gamma fraction. Reviewed and interpreted by: Jeannie Rogers M.D. Small abnormality in gamma fraction. Reviewed and interpreted by: Joon Palomares M.D. Small abnormality in gamma fraction. Hypogammaglobulinemia See Isotype. Flag, Immunofixation Positive Abnormal Positive Abnormal Positive Abnormal Positive Abnormal Positive Abnormal -- Immunofixation Cannot rule out small monoclonal protein. Reviewed and interpreted by: Daren Tobar M.D. Monoclonal IgG lambda. Reviewed and interpreted by: Chante Bryan M.D. Cannot rule out small monoclonal protein. Reviewed and interpreted by: Jeannie Rogers M.D. Monoclonal IgG lambda. Small monoclonal IgM lambda within the gamma fraction. Reviewed and interpreted by: Jeannie Rogers M.D. Monoclonal IgG lambda. Small monoclonal IgM lambda within the gamma fraction. Reviewed and interpreted by: Joon Palomares M.D. -- Assessment BP goal: <140/90. Pt is not at goal. LDL goal: high intensity statin. Pt is not at goal. HgbA1C goal: <7%. Pt is at goal. 1. Hypertension and amlodipine. Indication - Additional Drug Therapy needed: synergistic/potentiating Status: Pending Plan 1) Patient to f/u with PCP about restarting amlodipine. Follow up with [facility] Pharmacist: 1 yr, sooner as desired. Updated [place] med list and reviewed medications including indications with patient. Mirza Cheatham, PharmD, [facility] Billing Requirements: Recipient of visit: Patient Medicare CI: no Clinician location:home Patient location: home Billing based on time Total time spent with patient 31 - 45 min # of DTPs: 1 # of DTPs resolved: 0 documented in this encounter Plan of Treatment Upcoming Encounters Date Type Department Care Team Description 03/20/2023 10:30 AM MEETING MANAGER Appointment [facility] [address] [place] [address] Marily Solis MD [facility] [place], [place] [id number] documented as of this encounter Visit Diagnoses Diagnosis Polypharmacy- Primary Issue of repeat prescriptions documented in this encounter
--- OUTSIDE RECORDS SUMMARY | 2023-03-08 09:01 | XMS_ITS | Encounter Summary ---
Author Name Unknown Organization [facility] Address [address] [place] [address] Care Team Providers Care Service Team Leader Name Role Phone Panchito Briones MD Primary Care Provider [phone] Encounter Details Date Type Department Care Team Description 08/22/2011 Correspondence None Inactive, Provider MEDICAL EQUIPMENT RECEIPT Social History Tobacco Use Types Packs/Day Years [...] as of this encounter Progress Notes * Inactive, Provider - 08/22/2011 12:00 AM CDT documented in this encounter Plan of Treatment Upcoming Encounters Date Type Department Care Team Description 03/20/2023 10:30 AM ASSEMBLY PERSON Appointment [facility] [address] [place] [address] Mairly Solis MD [facility] [place] [address] documented as of this encounter Visit Diagnoses Not on filedocumented in this encounter Care Teams Service Team Leader Relationship Specialty Start Date End Date Panchito Briones MD [facility] [address] [place] [address] PCP - General Family Practice 11/23/22 documented as of this encounter
--- OUTSIDE RECORDS SUMMARY | 2023-03-08 09:01 | XMS_ITS | Encounter Summary ---
Author Name Unknown Organization [facility] Address [address] [place] [address] Care Team Providers Care Fundraising Officer Name Role Phone Panchito Briones MD Primary Care Provider [phone] Encounter Details Date Type Department Care Team Description 06/13/2002 [facility] Jimmie Lopez MD [address] [facility] 100 [place], [place] [id number] HYPERTENSION NOS Social History Tobacco Use Types [...] Department Care Team Description 03/20/2023 10:30 AM OFFAL SEPARATOR Appointment [facility] [address] [place] [address] Marily Solis MD [address] [place] [address] documented as of this encounter Visit Diagnoses Diagnosis Unspecified essential hypertension (HRC) Unspecified essential hypertension documented in this encounter Care Teams Fundraising Officer Relationship Specialty Start Date End Date Panchito Briones MD [facility] [address] [place] [address] PCP - General Family Practice 11/23/22 documented as of this encounter
--- OUTSIDE RECORDS SUMMARY | 2023-03-08 09:01 | XMS_ITS | Encounter Summary ---
Author Name Unknown Organization [facility] Address [address] [place] [address] Care Team Providers Care Group Reservations Coordinator Name Role Phone Panchito Briones MD Primary Care Provider [phone] Encounter Details Date Type Department Care Team Description 06/14/2002 Hospital None Unknown, Physician [address] [place], [place] [address] [facility] DISCHARGE SUMMARY Social History Tobacco Use Types Packs/Day Years [...] encounter Progress Notes * Unknown, Physician - 06/14/2002 12:00 AM CDT documented in this encounter Plan of Treatment Upcoming Encounters Date Type Department Care Team Description 03/20/2023 10:30 AM API ARCHITECT Appointment [facility] [address] [place], [place] [address] Marily Solis MD [facility]0 [place], [place] [address] documented as of this encounter Visit Diagnoses Not on filedocumented in this encounter Care Teams Group Reservations Coordinator Relationship Specialty Start Date End Date Panchito Briones MD [facility] [address] [place] [address] PCP - General Family Practice 11/23/22 documented as of this encounter
--- OUTSIDE RECORDS SUMMARY | 2023-03-08 09:01 | XMS_ITS | Encounter Summary ---
Author Name Unknown Organization [facility] Address [address] [place] [address] Care Team Providers Care Medical Technician Assistant Name Role Phone Panchito Briones MD Primary Care Provider [phone] Encounter Details Date Type Department Care Team Description 08/05/2012 Outside Hospital External to [facility], Provider DISCHARGE SUMMARY Social History Tobacco Use Types [...] as of this encounter Progress Notes * [facility], Provider - 08/05/2012 12:00 AM CDT documented in this encounter Plan of Treatment Upcoming Encounters Date Type Department Care Team Description 03/20/2023 10:30 AM MANAGER HELPDESK Appointment [facility] [address] [place] [address] Marily Solis MD [facility] [place], [place] [address] documented as of this encounter Visit Diagnoses Not on filedocumented in this encounter Care Teams Medical Technician Assistant Relationship Specialty Start Date End Date Panchito Briones MD [facility] [address] [place] [address] PCP - General Family Practice 11/23/22 documented as of this encounter
--- OUTSIDE RECORDS SUMMARY | 2023-03-08 09:01 | XMS_ITS | Encounter Summary ---
Author Name Unknown Organization [facility] Address [address] [place] [address] Care Team Providers Care Tooth Cutter Name Role Phone Panchito Briones MD Primary Care Provider [phone] Encounter Details Date Type Department Care Team Description 10/04/2011 Consent for Procedure/Treatment [facility] Department INFORMED CONSENT RECORD Social History Tobacco Use Types Packs/Day Years [...] as of this encounter Progress Notes * [facility], PROVIDER - 10/04/2011 12:00 AM CDT documented in this encounter Plan of Treatment Upcoming Encounters Date Type Department Care Team Description 03/20/2023 10:30 AM CLINICAL LAB SCIENTIST Appointment [facility] [address] [place] [address] Marily Solis MD [facility] [place], [place] [address] documented as of this encounter Visit Diagnoses Not on filedocumented in this encounter Care Teams Tooth Cutter Relationship Specialty Start Date End Date Panchito Briones MD [email or web address] [address] [place] [address] PCP - General Family Practice 11/23/22 documented as of this encounter
--- OUTSIDE RECORDS SUMMARY | 2023-03-08 09:01 | XMS_ITS | Encounter Summary ---
Author Name Unknown Organization [facility] Address [address] [place] [address] Care Team Providers Care Paper Folding Machine Operator Name Role Phone Panchito Briones MD Primary Care Provider Encounter Details Date Type Department Care Team Description 03/02/2015 Consent for Procedure/Treatme [facility] [place] [address] [facility] [place], [place] [address] Lisseth Lua MD [address] [place], [place] [address] CONSENT FOR SKIN BIOPSY OR EXCISION Social History Tobacco Use Types Packs/Day Years [...] Department Care Team Description 03/20/2023 10:30 AM ADVERTISING EDITOR Appointment [facility] [address] [place], [place] [address] Marily Solis MD [address] [place], [place] [address] documented as of this encounter Visit Diagnoses Not on filedocumented in this encounter Care Teams Paper Folding Machine Operator Relationship Specialty Start Date End Date Panchito Briones MD [facility] [address] [place] [address] PCP - General Family Practice 11/23/22 documented as of this encounter
--- OUTSIDE RECORDS SUMMARY | 2023-03-08 09:01 | XMS_ITS | Encounter Summary ---
Author Name Unknown Organization [facility] Address [address] [place] [address] Care Team Providers Care Director Safety Name Role Phone Panchito Briones MD Primary Care Provider [phone] Encounter Details Date Type Department Care Team Description 06/11/2002 [facility] Jimmie Lopez MD [address] [facility] 100 [place], [place] [id number] HYPERTENSION NOS Social History Tobacco Use Types [...] Department Care Team Description 03/20/2023 10:30 AM WAX ENGRAVER Appointment [facility] [address] [place] [address] Marily Solis MD [address] [place] [address] documented as of this encounter Visit Diagnoses Diagnosis Unspecified essential hypertension (HRC) Unspecified essential hypertension documented in this encounter Care Teams Director Safety Relationship Specialty Start Date End Date Panchito Briones MD [facility] [address] [place] [address] PCP - General Family Practice 11/23/22 documented as of this encounter
--- OUTSIDE RECORDS SUMMARY | 2023-03-08 09:01 | XMS_ITS | Encounter Summary ---
Author Name Unknown Organization formerly [facility] Address [address] [place] [address] Care Team Providers Care Manager Operations Name Role Phone Panchito Briones MD Primary Care Provider [phone] Encounter Details Date Type Department Care Team Description 04/22/2003 [facility] [place] [address] [facility] [place] [address] Dafne Sellers MD History and [facility] Social History Tobacco Use Types Packs/Day [...] encounter Progress Notes * Dafne Sellers - 04/22/2003 12:00 AM FRUIT PICKER MACHINE OPERATOR T PICKER MACHINE OPERATOR documented in this encounter Plan of Treatment Upcoming Encounters Date Type Department Care Team Description 03/20/2023 10:30 AM FRUIT PICKER MACHINE OPERATOR Appointment [facility] [address] [place] [address] Marily Solis MD [address] [place], [place] [address] documented as of this encounter Visit Diagnoses Not on filedocumented in this encounter Care Teams Manager Operations Relationship Specialty Start Date End Date Panchito Briones MD [facility] [address] [place] [address] PCP - General Family Practice 11/23/22 documented as of this encounter
--- OUTSIDE RECORDS SUMMARY | 2023-03-08 09:01 | XMS_ITS | Encounter Summary ---
Author Name Unknown Organization [facility] Address [address] [place] [address] Care Team Providers Care Rvda Master Certified Rv Technician Name Role Phone Panchito Briones MD Primary Care Provider [phone] Encounter Details Date Type Department Care Team Description 08/03/2012 Emergency Room External to [facility] Social History Tobacco Use Types Packs/Day Years [...] as of this encounter Progress Notes * [facility], PROVIDER - 08/03/2012 12:00 AM CDT documented in this encounter Plan of Treatment Upcoming Encounters Date Type Department Care Team Description 03/20/2023 10:30 AM FIREARMS MODEL MAKER Appointment [facility] [address] [place] [address] Marily Solis MD [address] [place] [address] documented as of this encounter Visit Diagnoses Not on filedocumented in this encounter Care Teams Rvda Master Certified Rv Technician Relationship Specialty Start Date End Date Panchito Briones MD [facility] [address] [place] [address] PCP - General Family Practice 11/23/22 documented as of this encounter
--- OUTSIDE RECORDS SUMMARY | 2023-03-08 09:01 | XMS_ITS | Encounter Summary ---
Author Name Unknown Organization [facility] Address [address] [place] [address] Care Team Providers Care Securities Vault Supervisor Name Role Phone Panchito Briones MD Primary Care Provider [phone] Encounter Details Date Type Department Care Team Description 04/14/2015 Consent for Procedure/Treatment [facility] INFORMED CONSENT RECORD Social History Tobacco [...] Department Care Team Description 03/20/2023 10:30 AM COLD PRESS OPERATOR Appointment [facility] [address] [place], [place] [address] Marily Solis MD [address] [place] [address] documented as of this encounter Visit Diagnoses Not on filedocumented in this encounter Care Teams Securities Vault Supervisor Relationship Specialty Start Date End Date Panchito Briones MD [facility] [address] [place] [address] PCP - General Family Practice 11/23/22 documented as of this encounter
--- OUTSIDE RECORDS SUMMARY | 2023-03-08 09:02 | XMS_ITS | Encounter Summary ---
Author Name Unknown Organization [facility] Address [address] [place] [address] Care Team Providers Care Screen Machine Operator Name Role Phone Panchito Briones MD Primary Care Provider [phone] Encounter Details Date Type Department Care Team Description 04/13/1995 Orders Only Citlaly Harden MD [facility] [address] [place] [address] Social History Tobacco Use Types Packs/Day Years Used Date Smoking Tobacco: Never Assessed Sex and Gender Information Value Date Recorded Sex Assigned at Not on file Gender Identity Not on file Sexual Orientation Not on file documented as of this encounter Plan of Treatment Upcoming Encounters Date Type Department Care Team Description 03/20/2023 10:30 AM MANAGER OF BUSINESS Appointment [facility] [address] [place], [place] [address] Marily Solis MD [address] [place] [address] documented as of this encounter Visit Diagnoses Not on filedocumented in this encounter Care Teams Screen Machine Operator Relationship Specialty Start Date End Date Panchito Briones MD [facility] [address] [place] [address] PCP - General Family Practice 11/23/22 documented as of this encounter
--- OUTSIDE RECORDS SUMMARY | 2023-03-08 09:02 | XMS_ITS | Encounter Summary ---
Author Name Unknown Organization [facility] Address [address] [place] [address] Care Team Providers Care Commissioner Of Officials Name Role Phone Panchito Briones MD Primary Care Provider [phone] Encounter Details Date Type Department Care Team Description 01/24/1996 Orders Only Lelia Lorenzana APRN, VETERINARIAN HELPER Social History Tobacco Use Types Packs/Day Years Used Date Smoking Tobacco: Never Assessed Sex and Gender Information Value Date Recorded Sex Assigned at Not on file Gender Identity Not on file Sexual Orientation Not on file documented as of this encounter Plan of Treatment Upcoming Encounters Date Type Department Care Team Description 03/20/2023 10:30 AM CIGARETTE AND FILTER CHIEF INSPECTOR Appointment [facility] [address] [place] [address] Marily Solis MD [address] [place] [address] documented as of this encounter Visit Diagnoses Not on filedocumented in this encounter Care Teams Commissioner Of Officials Relationship Specialty Start Date End Date Panchito Briones MD [facility] [address] [place] [address] PCP - General Family Practice 11/23/22 documented as of this encounter
--- OUTSIDE RECORDS SUMMARY | 2023-03-08 09:02 | XMS_ITS | Encounter Summary ---
Author Name Unknown Organization [facility] Address [address] [place] [address] Care Team Providers Care Case Folder Name Role Phone Panchito Briones MD Primary Care Provider [phone] Encounter Details Date Type Department Care Team Description 03/17/1998 Orders Only Yumiko Blackburn MD [address] [place], [place] [address] Social History Tobacco Use Types Packs/Day Years Used Date Smoking Tobacco: Never Assessed Sex and Gender Information Value Date Recorded Sex Assigned at Not on file Gender Identity Not on file Sexual Orientation Not on file documented as of this encounter Plan of Treatment Upcoming Encounters Date Type Department Care Team Description 03/20/2023 10:30 AM AIRCRAFT STRUCTURAL DESIGN ENGINEER Appointment [facility] [address] [place] [address] Marily Solis MD [address] [place], [place] [address] documented as of this encounter Visit Diagnoses Not on filedocumented in this encounter Care Teams Case Folder Relationship Specialty Start Date End Date Panchito Briones MD [facility] [address] [place] [address] PCP - General Family Practice 11/23/22 documented as of this encounter
--- OUTSIDE RECORDS SUMMARY | 2023-03-08 09:02 | XMS_ITS | Encounter Summary ---
Author Name Unknown [facility] Address [address] [place] [address] Care Team Providers Care Skin Peeling Machine Operator Name Role Phone Panchito Briones MD Primary Care Provider [phone] Encounter Details Date Type Department Care Team Description 03/14/1996 Orders Only Citlaly Harden MD [facility] [address] [place] [address] Social History Tobacco Use Types Packs/Day Years Used Date Smoking Tobacco: Never Assessed Sex and Gender Information Value Date Recorded Sex Assigned at Not on file Gender Identity Not on file Sexual Orientation Not on file documented as of this encounter Plan of Treatment Upcoming Encounters Date Type Department Care Team Description 03/20/2023 10:30 AM SHELL FREEZING MACHINE OPERATOR Appointment [facility] [address] [place], [place] [address] Marily Solis MD [address] [place] [address] documented as of this encounter Visit Diagnoses Not on filedocumented in this encounter Care Teams Skin Peeling Machine Operator Relationship Specialty Start Date End Date Panchito Briones MD [facility] [address] [place] [address] PCP - General Family Practice 11/23/22 documented as of this encounter
--- OUTSIDE RECORDS SUMMARY | 2023-03-08 09:02 | XMS_ITS | Encounter Summary ---
Author Name Unknown [facility] Address [address] [place] [address] Care Team Providers Care Clinical Biochemical Geneticist Name Role Phone Panchito Briones MD Primary Care Provider [phone] Encounter Details Date Type Department Care Team Description 07/30/1998 Orders Only Citlaly Harden MD [facility] [address] [place] [address] Social History Tobacco Use Types Packs/Day Years Used Date Smoking Tobacco: Never Assessed Sex and Gender Information Value Date Recorded Sex Assigned at Not on file Gender Identity Not on file Sexual Orientation Not on file documented as of this encounter Plan of Treatment Upcoming Encounters Date Type Department Care Team Description 03/20/2023 10:30 AM HOME SALES SERVICE PROFESSIONAL Appointment [facility] [address] [place], [place] [address] Marily Solis MD [address] [place] [address] documented as of this encounter Visit Diagnoses Not on filedocumented in this encounter Care Teams Clinical Biochemical Geneticist Relationship Specialty Start Date End Date Panchito Briones MD [facility] [address] [place] [address] PCP - General Family Practice 11/23/22 documented as of this encounter
--- OUTSIDE RECORDS SUMMARY | 2023-03-08 09:02 | XMS_ITS | Encounter Summary ---
Author Name Unknown [facility] Address [address] [place] [address] Care Team Providers Care Edge Grinder Machine Name Role Phone Panchito Briones MD Primary Care Provider [phone] Encounter Details Date Type Department Care Team Description 01/31/1996 Orders Only Citlaly Harden MD [address] [address] Social History Tobacco Use Types Packs/Day Years Used Date Smoking Tobacco: Never Assessed Sex and Gender Information Value Date Recorded Sex Assigned at Not on file Gender Identity Not on file Sexual Orientation Not on file documented as of this encounter Plan of Treatment Upcoming Encounters Date Type Department Care Team Description 03/20/2023 10:30 AM CAR ICER Appointment [facility] [address] [place], [place] [address] Marily Solis MD [address] [place] [address] documented as of this encounter Visit Diagnoses Not on filedocumented in this encounter Care Teams Edge Grinder Machine Relationship Specialty Start Date End Date Panchito Briones MD [facility] [address] [place] [address] PCP - General Family Practice 11/23/22 documented as of this encounter
--- OUTSIDE RECORDS SUMMARY | 2023-03-08 09:02 | XMS_ITS | Encounter Summary ---
Author Name Unknown Organization [facility] Address [address] [place] [address] Care Team Providers Care Rounding Machine Tender Name Role Phone Panchito Briones MD Primary Care Provider [phone] Encounter Details Date Type Department Care Team Description 03/21/1997 Orders Only Citlaly Harden MD [address] [address] Social History Tobacco Use Types Packs/Day Years Used Date Smoking Tobacco: Never Assessed Sex and Gender Information Value Date Recorded Sex Assigned at Not on file Gender Identity Not on file Sexual Orientation Not on file documented as of this encounter Plan of Treatment Upcoming Encounters Date Type Department Care Team Description 03/20/2023 10:30 AM LUNCH TRUCK OPERATOR Appointment [facility] [address] [place], [place] [address] Marily Solis MD [address] [place] [address] documented as of this encounter Visit Diagnoses Not on filedocumented in this encounter Care Teams Rounding Machine Tender Relationship Specialty Start Date End Date Panchito Briones MD [facility] [address] [place] [address] PCP - General Family Practice 11/23/22 documented as of this encounter
--- OUTSIDE RECORDS SUMMARY | 2023-03-08 09:02 | XMS_ITS | Encounter Summary ---
Author Name Unknown Organization [facility] Address [address] [place] [address] Care Team Providers Care Shellacker Name Role Phone Panchito Briones MD Primary Care Provider [phone] Encounter Details Date Type Department Care Team Description 05/05/1995 Orders Only Deo Ardon MD [address] [place], [place] [address] Social History Tobacco Use Types Packs/Day Years Used Date Smoking Tobacco: Never Assessed Sex and Gender Information Value Date Recorded Sex Assigned at Not on file Gender Identity Not on file Sexual Orientation Not on file documented as of this encounter Plan of Treatment Upcoming Encounters Date Type Department Care Team Description 03/20/2023 10:30 AM MILIEU TECHNICIAN Appointment [facility] [address] [place] [address] Marily Solis MD [address] [place], [place] [address] documented as of this encounter Visit Diagnoses Not on filedocumented in this encounter Care Teams Shellacker Relationship Specialty Start Date End Date Panchito Briones MD [facility] [address] [place] [address] PCP - General Family Practice 11/23/22 documented as of this encounter
--- OUTSIDE RECORDS SUMMARY | 2023-03-08 09:02 | XMS_ITS | Encounter Summary ---
Author Name Unknown Organization [facility] Address [address] [place] [address] Care Team Providers Care Landscaping Crew Leader Name Role Phone Panchito Briones MD Primary Care Provider [phone] Encounter Details Date Type Department Care Team Description 02/14/1997 Orders Only Deo Adron MD [address] [place], [place] [address] Social History Tobacco Use Types Packs/Day Years Used Date Smoking Tobacco: Never Assessed Sex and Gender Information Value Date Recorded Sex Assigned at Not on file Gender Identity Not on file Sexual Orientation Not on file documented as of this encounter Plan of Treatment Upcoming Encounters Date Type Department Care Team Description 03/20/2023 10:30 AM CHRONIC MANAGER Appointment [facility] [address] [place] [address] Marily Solis MD [address] [place], [place] [address] documented as of this encounter Visit Diagnoses Not on filedocumented in this encounter Care Teams Landscaping Crew Leader Relationship Specialty Start Date End Date Panchito Briones MD [facility] [address] [place] [address] PCP - General Family Practice 11/23/22 documented as of this encounter
--- OUTSIDE RECORDS SUMMARY | 2023-03-08 09:02 | XMS_ITS | Encounter Summary ---
Author Name Unknown Organization [facility] Address [address] [place] [address] Care Team Providers Care Inspector Returned Materials Name Role Phone Panchito Briones MD Primary Care Provider [phone] Encounter Details Date Type Department Care Team Description 07/09/1998 Office Visit [facility] [place] [address] [place], [place] [address] Rafi Morales MD [address] [place], [place] [id number] ELEV BL PRES W/O HYPERTN Social History Tobacco Use Types Packs/Day Years Used Date Smoking Tobacco: Never Assessed Sex and Gender Information Value Date Recorded Sex Assigned at Not on file Gender Identity Not on file Sexual Orientation Not on file documented as of this encounter Plan of Treatment Upcoming Encounters Date Type Department Care Team Description 03/20/2023 10:30 AM CABLE DRILLER Appointment [facility] [address] [place], [place] [phone] Marily Solis MD [address] [place] [address] documented as of this encounter Visit Diagnoses Diagnosis Elevated blood pressure reading without diagnosis of hypertension documented in this encounter Care Teams Inspector Returned Materials Relationship Specialty Start Date End Date Panchito Briones MD [facility] [address] [place] [address] PCP - General Family Practice 11/23/22 documented as of this encounter
--- OUTSIDE RECORDS SUMMARY | 2023-03-08 09:02 | XMS_ITS | Encounter Summary ---
Author Name Unknown Organization [facility] Address [address] [place] [address] Care Team Providers Care Concert Pianist Name Role Phone Panchito Briones MD Primary Care Provider [phone] Encounter Details Date Type Department Care Team Description 12/11/1998 Orders Only Keysha Blue Social History Tobacco Use Types Packs/Day Years Used Date Smoking Tobacco: Never Assessed Sex and Gender Information Value Date Recorded Sex Assigned at Not on file Gender Identity Not on file Sexual Orientation Not on file documented as of this encounter Plan of Treatment Upcoming Encounters Date Type Department Care Team Description 03/20/2023 10:30 AM TITLE INSURANCE AGENT Appointment [facility] [address] [place], [place] [address] Marily Solis MD [facility] [place] [address] documented as of this encounter Visit Diagnoses Not on filedocumented in this encounter Care Teams Concert Pianist Relationship Specialty Start Date End Date Panchito Briones MD [facility] [address] [place] [address] PCP - General Family Practice 11/23/22 documented as of this encounter
--- OUTSIDE RECORDS SUMMARY | 2023-03-08 09:02 | XMS_ITS | Encounter Summary ---
Author Name Unknown Organization [facility] Address [address] [place] [address] Care Team Providers Care Type Casting Machine Operator Name Role Phone Panchito Briones MD Primary Care Provider [phone] Encounter Details Date Type Department Care Team Description 11/27/1995 Orders Only Citlaly Harden MD [address] [address] Social History Tobacco Use Types Packs/Day Years Used Date Smoking Tobacco: Never Assessed Sex and Gender Information Value Date Recorded Sex Assigned at Not on file Gender Identity Not on file Sexual Orientation Not on file documented as of this encounter Plan of Treatment Upcoming Encounters Date Type Department Care Team Description 03/20/2023 10:30 AM POOL MANAGER Appointment [facility] [address] [place], [place] [address] Marily Solis MD [address] [place] [address] documented as of this encounter Visit Diagnoses Not on filedocumented in this encounter Care Teams Type Casting Machine Operator Relationship Specialty Start Date End Date Panchito Briones MD [facility] [address] [place] [address] PCP - General Family Practice 11/23/22 documented as of this encounter
--- OUTSIDE RECORDS SUMMARY | 2023-03-08 09:02 | XMS_ITS | Encounter Summary ---
Author Name Unknown Organization [facility] Address [address] [place] [address] Care Team Providers Care Chief Load Dispatcher Name Role Phone Panchito Briones MD Primary Care Provider [phone] Encounter Details Date Type Department Care Team Description 02/15/1996 Orders Only Citlaly Harden MD [address] [address] Social History Tobacco Use Types Packs/Day Years Used Date Smoking Tobacco: Never Assessed Sex and Gender Information Value Date Recorded Sex Assigned at Not on file Gender Identity Not on file Sexual Orientation Not on file documented as of this encounter Plan of Treatment Upcoming Encounters Date Type Department Care Team Description 03/20/2023 10:30 AM INDUSTRIAL ENGINEERING TECHNOLOGIST Appointment [facility] [address] [place], [place] [phone] Marily Solis MD [address] [place] [address] documented as of this encounter Visit Diagnoses Not on filedocumented in this encounter Care Teams Chief Load Dispatcher Relationship Specialty Start Date End Date Panchito Briones MD [facility] [address] [place] [address] PCP - General Family Practice 11/23/22 documented as of this encounter
--- OUTSIDE RECORDS SUMMARY | 2023-03-08 09:02 | XMS_ITS | Encounter Summary ---
Author Name Unknown Organization [facility] Address [address] [place] [address] Care Team Providers Care Raw Sampler Name Role Phone Panchito Briones MD Primary Care Provider [phone] Encounter Details Date Type Department Care Team Description 06/10/2002 [facility] Surgery [facility] [place], [place] [address] Adolfo Benito MD INTEST ADHES W OBSTR [...] Department Care Team Description 03/20/2023 10:30 AM VP PRODUCT MARKETING Appointment [facility] [address] [place] [address] Marily Solis MD [address] [place], [place] [phone] documented as of this encounter Visit Diagnoses Diagnosis Intestinal or peritoneal adhesions with obstruction (postoperative) (postinfection) ([facility]) Intestinal or peritoneal adhesions with obstruction (postoperative) (postinfection) Ventral hernia, unspecified, without mention of obstruction or gangrene documented in this encounter Care Teams Raw Sampler Relationship Specialty Start Date End Date Panchito Briones MD [facility] [address] [place] [address] PCP - General Family Practice 11/23/22 documented as of this encounter
--- OUTSIDE RECORDS SUMMARY | 2023-03-08 09:02 | XMS_ITS | Encounter Summary ---
Author Name Unknown Organization [facility] Address [address] [place] [address] Care Team Providers Care Projector Booth Operator Name Role Phone Panchito Briones MD Primary Care Provider [phone] Encounter Details Date Type Department Care Team Description 07/26/1995 Orders Only Yumiko Blackburn MD [address] [place], [place] [id number] Social History Tobacco Use Types Packs/Day Years Used Date Smoking Tobacco: Never Assessed Sex and Gender Information Value Date Recorded Sex Assigned at Not on file Gender Identity Not on file Sexual Orientation Not on file documented as of this encounter Plan of Treatment Upcoming Encounters Date Type Department Care Team Description 03/20/2023 10:30 AM FORM SETTER HELPER Appointment [facility] [address] [place], [place] [phone] Marily Solis MD [address] [place], [place] [address] documented as of this encounter Visit Diagnoses Not on filedocumented in this encounter Care Teams Projector Booth Operator Relationship Specialty Start Date End Date Panchito Briones MD [facility] [address] [place] [address] PCP - General Family Practice 11/23/22 documented as of this encounter
--- OUTSIDE RECORDS SUMMARY | 2023-03-08 09:02 | XMS_ITS | Encounter Summary ---
Author Name Unknown Organization [facility] Address [address] [place] [address] Care Team Providers Care Business Development Associate Name Role Phone Panchito Briones MD Primary Care Provider [phone] Encounter Details Date Type Department Care Team Description 04/19/1999 Orders Only Herson Gallagher, DDS [address] [place], [place] [address] Social History Tobacco Use Types Packs/Day Years Used Date Smoking Tobacco: Never Assessed Sex and Gender Information Value Date Recorded Sex Assigned at Not on file Gender Identity Not on file Sexual Orientation Not on file documented as of this encounter Plan of Treatment Upcoming Encounters Date Type Department Care Team Description 03/20/2023 10:30 AM DIPLOMA MAKER Appointment [facility] [address] [place], [place] [phone] Marily Solis MD [address] [place], [place] [address] documented as of this encounter Visit Diagnoses Not on filedocumented in this encounter Care Teams Business Development Associate Relationship Specialty Start Date End Date Panchito Briones MD [facility] [address] [place] [address] PCP - General Family Practice 9/27/23 documented as of this encounter
--- OUTSIDE RECORDS SUMMARY | 2023-03-08 09:02 | XMS_ITS | Encounter Summary ---
Author Name Unknown Organization [facility] Address [address] [place] [address] Care Team Providers Care Nondestructive Tester Name Role Phone Panchito Briones MD Primary Care Provider [phone] Encounter Details Date Type Department Care Team Description 12/21/1998 Orders Only Deo Ardon MD [address] [place], [place] [address] Social History Tobacco Use Types Packs/Day Years Used Date Smoking Tobacco: Never Assessed Sex and Gender Information Value Date Recorded Sex Assigned at Not on file Gender Identity Not on file Sexual Orientation Not on file documented as of this encounter Plan of Treatment Upcoming Encounters Date Type Department Care Team Description 03/20/2023 10:30 AM PLANER MILL GRADER Appointment [facility] [address] [place] [address] Marily Solis MD [address] [place], [place] [address] documented as of this encounter Visit Diagnoses Not on filedocumented in this encounter Care Teams Nondestructive Tester Relationship Specialty Start Date End Date Panchito Briones MD [facility] [address] [place] [address] PCP - General Family Practice 11/23/22 documented as of this encounter
--- OUTSIDE RECORDS SUMMARY | 2023-03-08 09:02 | XMS_ITS | Encounter Summary ---
Author Name Unknown Organization [facility] Address [address] [place] [address] Care Team Providers Care Industrial Laborer Name Role Phone Panchito Briones MD Primary Care Provider [phone] Encounter Details Date Type Department Care Team Description 10/30/1996 Orders Only Citlaly Harden MD [facility] [address] [place] [address] Social History Tobacco Use Types Packs/Day Years Used Date Smoking Tobacco: Never Assessed Sex and Gender Information Value Date Recorded Sex Assigned at Not on file Gender Identity Not on file Sexual Orientation Not on file documented as of this encounter Plan of Treatment Upcoming Encounters Date Type Department Care Team Description 03/20/2023 10:30 AM ETCHER APPRENTICE Appointment [facility] [address] [place], [place] [address] Marily Solis MD [address] [place] [address] documented as of this encounter Visit Diagnoses Not on filedocumented in this encounter Care Teams Industrial Laborer Relationship Specialty Start Date End Date Panchito Briones MD [facility] [address] [place] [address] PCP - General Family Practice 11/23/22 documented as of this encounter
--- OUTSIDE RECORDS SUMMARY | 2023-03-08 09:03 | XMS_ITS | Encounter Summary ---
Author Name Unknown Organization [facility] Address [address] [place] [address] Care Team Providers Care Securities Sales Associate Name Role Phone Panchito Briones MD Primary Care Provider [phone] Encounter Details Date Type Department Care Team Description 05/12/1994 Orders Only Citlaly Harden MD [facility] [address] [place] [address] Social History Tobacco Use Types Packs/Day Years Used Date Smoking Tobacco: Never Assessed Sex and Gender Information Value Date Recorded Sex Assigned at Not on file Gender Identity Not on file Sexual Orientation Not on file documented as of this encounter Plan of Treatment Upcoming Encounters Date Type Department Care Team Description 03/20/2023 10:[address] CHANGE ROOF BOLTER Appointment [facility] [address] [place], [place] [address] Marily Solis MD [address] [place] [phone] documented as of this encounter Visit Diagnoses Not on filedocumented in this encounter Care Teams Securities Sales Associate Relationship Specialty Start Date End Date Panchito Briones MD [facility] [address] [place] [address] PCP - General Family Practice 11/23/22 documented as of this encounter
--- OUTSIDE RECORDS SUMMARY | 2023-03-08 09:03 | XMS_ITS | Encounter Summary ---
Author Name Unknown Organization [facility] Address [address] [place] [address] Care Team Providers Care Filling Station Attendant Name Role Phone Panchito Briones MD Primary Care Provider [phone] Encounter Details Date Type Department Care Team Description 03/23/1995 Orders Only Citlaly Harden MD [address] [address] Social History Tobacco Use Types Packs/Day Years Used Date Smoking Tobacco: Never Assessed Sex and Gender Information Value Date Recorded Sex Assigned at Not on file Gender Identity Not on file Sexual Orientation Not on file documented as of this encounter Plan of Treatment Upcoming Encounters Date Type Department Care Team Description 03/20/2023 10:30 AM PROFESSIONAL NURSING ASSISTANT Appointment [facility] [address] [place], [place] [address] Marily Solis MD [address] [place] [address] documented as of this encounter Visit Diagnoses Not on filedocumented in this encounter Care Teams Filling Station Attendant Relationship Specialty Start Date End Date Panchito Briones MD [facility] [address] [place] [address] PCP - General Family Practice 11/23/22 documented as of this encounter
--- OUTSIDE RECORDS SUMMARY | 2023-03-08 09:03 | XMS_ITS | Encounter Summary ---
Author Name Unknown Organization [facility] Address [address] [place] [address] Care Team Providers Care Supervisor Pressing Department Name Role Phone Panchito Briones MD Primary Care Provider [phone] Encounter Details Date Type Department Care Team Description 06/20/1994 Orders Only Citlaly Harden MD [address] [address] Social History Tobacco Use Types Packs/Day Years Used Date Smoking Tobacco: Never Assessed Sex and Gender Information Value Date Recorded Sex Assigned at Not on file Gender Identity Not on file Sexual Orientation Not on file documented as of this encounter Plan of Treatment Upcoming Encounters Date Type Department Care Team Description 03/20/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
--- NOTE | 2023-03-08 09:15 | CRLHL7_ITS ---
For Patients: As a result of the 21st Century Cures Act, medical imaging exams and procedure reports are released immediately into your electronic medical record. You may view this report before your referring provider. If you have questions, please contact your health care provider. BILATERAL DIGITAL SCREENING MAMMOGRAM USING TOMOSYNTHESIS AND COMPUTER-AIDED DETECTION INDICATION: 77-year-old asymptomatic female. Screening mammogram. TECHNIQUE: CC and MLO views were obtained. This digital study was evaluated with the assistance of computer-aided detection. Digital breast tomosynthesis utilized in interpretation. COMPARISON: 07/05/2021. FINDINGS: Breast Composition: There are areas of scattered fibroglandular density. Benign vascular calcification in each breast. The LEFT breast is negative and unchanged. Within the inferior RIGHT breast there is a questionable developing density. This may simply reflect superimposed parenchymal elements. Recommend a spot compression view in the CC projection, as well as the MLO projection. A true ML view may be of benefit. Reportedly the patient has moles on the undersurface of her RIGHT breast. A mole marker may be helpful in this regard. If this density persists, ultrasound may be required. IMPRESSION: 1. Nothing for malignancy on the LEFT. No change on the LEFT. 2. Questionable developing density inferior RIGHT breast at approximately the 6 to 7 o`clock position, posterior depth. 3. Additional imaging and ultrasound may be required. Mole markers may be helpful. BI-RADS Category 0: Incomplete: Need Additional Imaging Evaluation and/or Prior Mammograms for Comparison The [facility] will contact the patient for follow-up. A lay language report of this examination will be provided to the patient. Dictated by: Derek West MD @03/09/2023 8:37:01 AM /Dictated by: Derek West MD @ 03/09/2023 8:37:00 AM (Electronically Signed)
== END 2023-03-08 08:42 | disposition home or self-care (01) ==
LOC: MAMMO 08:43
PROVIDERS: PCP Family Medicine; Visit Provider Family Medicine
DX: Z12.31 Encounter for screening mammogram for malignant neoplasm of breast (principal); N63.10 Unspecified lump in the right breast, unspecified quadrant
CPT/HCPCS: 77063; 77067

== ENCOUNTER 2023-03-21 10:27 | Outpatient (CLI) | payer OTHER, SELFPAY ==
--- OUTSIDE RECORDS SUMMARY | 2023-03-21 10:30 | XMS_ITS ---
Author Name Unknown Organization [facility] Address [address] [place] [address] Care Team Providers Care Club Director Name Role Phone Unavailable Unavailable Unavailable Surgery Details Not on file Complications Check Surgery Details section. Procedure Estimated Blood Loss Check Surgery Details section. Procedure Findings Check Surgery Details section. Procedure Specimens Taken Check Surgery Details section.
--- OUTSIDE RECORDS SUMMARY | 2023-03-21 10:30 | XMS_ITS | Clinical Summary ---
Author Name Unknown Organization [facility] Address [address] [place] [address] Care Team Providers Care Art Psychotherapist Or Therapist Name Role Phone Elsewhere, Pcp Primary Care Provider Unavailabl e Source Comments Patient records contain information from all sites at [facility]. For routine questions regarding patient records, call [phone] during business hours, M-F 8:00 AM - 5:00 PM Central Time. Record requests for emergency care only can be directed to [phone] at any time.[facility] Allergies Active Allergy Reactions Criticality Noted Date [...] mouth daily. 45 tablet 11 2 Active prochlorperazin e (COMPAZINE) 10 mg [...] (10 mg total) by mouth daily. Take for 21 days of each 28 day cycle. Take whole with water. Do not break, chew, or open. 21 capsule 0 4 03/30/19 24 Active Slow-Mag 71.[address] tablet TAKE 2 TABLETS BY MOUTH EVERY MORNING BEFORE BREAKFAST- DO NOT CRUSH OR CHEW. 30 tablet 1 4 Active LORazepam (ATIVAN) 0.5 mg tablet Take 0.5 mg by mouth. 0 4 Active magnesium chloride (SLOW-MAG) 71.[address] tablet Take 2 tablets (143 mg total) by mouth every morning before breakfast. Do not crush or chew. 30 tablet 1 2 03/16/19 24 Discontinued lenalidomide (REVLIMID) 10 mg capsuleIndicati ons:Multiple Myeloma Not Having Achieved Remission (HCC) TAKE 1 CAPSULE BY MOUTH 1 TIME A DAY FOR 21 DAYS ON THEN 7 DAYS OFF 21 capsule 0 3 03/03/19 24 Discontinued(Reo rder) lenalidomide (REVLIMID) 10 mg capsuleIndicati ons:Multiple Myeloma Not Having Achieved Remission (HCC) Take whole with water. Do not break, chew, or open. 21 capsule 0 4 03/09/19 24 Discontinued Active Problems Problem Noted Date Diagnosed Date COVID-19 Infection 03/22/2022 Overview: This patients COVID history is as follows: Initial date of symptoms: 03/18/22 Symptoms at onset: not severe Date of positive test: 03-19-22 Initial treatment paxlovid Qualifying condition/medication for CCP: Multiple myeloma Blood type / location: ordered for 03/23/22 [place] Infusion dates: Ordered for [place] 03/23/22 Follow up 03-25-22. Feeling much better. [...] Date Type Department Care Team Description 03/20/2023 Clinical Communication Division of Hematology in [place], [place] [address] [place] [address] Mari Noguera M.D. 03/17/2023 9:45 AM POWER REACTOR SUPERVISOR Infusion Department of Infusion Therapy in [address] [phone] Mari Noguera M.D. Multiple Myeloma Not Having Achieved Remission (HCC) 03/17/2023 9:09 AM POWER REACTOR SUPERVISOR - 03/17/2023 11:59 PM POWER REACTOR SUPERVISOR Hospital Encounter Department of Laboratory Medicine in [address] [phone] Mari Noguera M.D. Multiple Myeloma In Remission (HCC) Discharge Disposition: Home or Self Care 03/17/2023 8:40 AM POWER REACTOR SUPERVISOR Office Visit Department of Oncology in [address] [phone] Mari Noguera M.D. Multiple Myeloma In Remission (HCC) (Primary Dx); Transplant Stem Cell (HCC); Pancytopenia (HCC) 03/16/2023 10:28 AM POWER REACTOR SUPERVISOR - 03/16/2023 11:59 PM POWER REACTOR SUPERVISOR Hospital Encounter Department of Laboratory Medicine in [place], [place] [address] [place] [address] Mari Noguera M.D. Multiple Myeloma Not Having Achieved Remission (HCC) Discharge Disposition: Home or Self Care 03/14/2023 Refill Department of Oncology in [address] [phone] Mari Noguera M.D. Med Refill 03/09/2023 Orders Only Department of Oncology in [place], [place] [address] [place] [address] Jake Rosales, PharmAbrahamD., R.Ph. Multiple Myeloma Not Having Achieved Remission (HCC) 03/09/2023 Orders Only Department of Oncology in [place] [phone] Mari Noguera M.D. 03/08/2023 Clinical Communication Department of Oncology in [address] [phone] Mari Noguera M.D. 03/07/2023 Refill Department of Oncology in [address] [phone] Mari Noguera M.D. Med Refill 03/03/2023 3:00 PM POWER REACTOR SUPERVISOR Office Visit Department of Oncology in [address] [address] Mari Noguera M.D. Multiple Myeloma Not Having Achieved Remission (HCC) (Primary Dx); Transplant Stem Cell (HCC); Pancytopenia (HCC) 03/03/2023 Refill Department of Oncology in [address] [phone] Mari oNguera M.D. Med Refill 03/02/2023 10:39 AM POWER REACTOR SUPERVISOR - 03/02/2023 11:59 PM POWER REACTOR SUPERVISOR Hospital Encounter Department of Laboratory Medicine in [address] [phone] Mari Nogurea M.D. Multiple Myeloma Not Having Achieved Remission (HCC) Discharge Disposition: Home or Self Care 02/23/2023 Refill Department of Oncology in [address] [phone] Mari Noguera M.D. Med Refill 02/17/2023 9:15 AM POWER REACTOR SUPERVISOR Infusion Department of Infusion Therapy in [address] [phone] Mari Noguera M.D. Multiple Myeloma Not Having Achieved Remission (HCC) (Primary Dx) 02/17/2023 8:23 AM POWER REACTOR SUPERVISOR - 02/17/2023 11:59 PM POWER REACTOR SUPERVISOR Hospital Encounter Department of Laboratory Medicine in [address] [phone] Mari Noguera M.D. Multiple Myeloma Not Having Achieved Remission (HCC) Discharge Disposition: Home or Self Care 02/17/2023 Orders Only Department of Oncology in [address] [phone] Mari Noguera M.D. Multiple Myeloma Not Having Achieved Remission (HCC) (Primary Dx) 02/14/2023 Clinical Communication Department of Oncology in [address] [phone] Mari Noguera M.D. Medical Certification Form ([employer]) 02/10/2023 9:15 AM POWER REACTOR SUPERVISOR Infusion Department of Infusion Therapy in [address] [phone] Mari Noguera M.D. Multiple Myeloma Not Having Achieved Remission (HCC) (Primary Dx) 02/09/2023 2:29 PM POWER REACTOR SUPERVISOR - 02/09/2023 11:59 PM POWER REACTOR SUPERVISOR Hospital Encounter Department of Laboratory Medicine in [address] [phone] Mari Noguera M.D. Multiple Myeloma Not Having Achieved Remission (HCC) Discharge Disposition: Home or Self Care 02/05/2023 Refill [facility] in [place], [place] [address] [place] [address] Jeannie Headley APRN, C.N.P., D.N.P., M.S.N. Med Refill 01/30/2023 1:09 PM POWER REACTOR SUPERVISOR - 01/30/2023 11:59 PM POWER REACTOR SUPERVISOR Hospital Encounter Department of Laboratory Medicine in [address] [phone] Mari Noguera M.D. Thrombocytopenia (HCC) Discharge Disposition: Home or Self Care 01/30/2023 8:00 AM POWER REACTOR SUPERVISOR Infusion Department of Infusion Therapy in [address] [phone] Mari Noguera M.D. Multiple Myeloma Not Having Achieved Remission (HCC) (Primary Dx) 01/30/2023 Orders Only Department of Oncology in [address] [phone] Anna Rosa R.N. Thrombocytopenia (HCC) (Primary Dx) 01/30/2023 Orders Only Department of Oncology in [place], [place] [address] [place] [address] Mari Noguera M.D. 01/27/2023 8:40 AM POWER REACTOR SUPERVISOR Office Visit Department of Oncology in [address] [phone] Mari Noguera M.D. Multiple Myeloma Not Having Achieved Remission (HCC) (Primary Dx); Transplant Stem Cell (HCC); Thrombocytopenia (HCC) 01/27/2023 7:50 AM POWER REACTOR SUPERVISOR - 01/27/2023 11:59 PM POWER REACTOR SUPERVISOR Hospital Encounter Department of Laboratory Medicine in [address] [phone] Mari Noguera M.D. Multiple Myeloma Not Having Achieved Remission (HCC) Discharge Disposition: Home or Self Care 01/25/2023 Orders Only Department of Oncology in [place], [place] [address] [place] [address] Mari Noguera M.D. 01/23/2023 Refill Department of Oncology in [address] [phone] Mari Noguera M.D. Med Refill 01/20/2023 11:45 AM POWER REACTOR SUPERVISOR Infusion Department of Infusion Therapy in [address] [phone] Mari Noguera M.D. Multiple Myeloma Not Having Achieved Remission (HCC) (Primary Dx) 01/20/2023 9:50 AM POWER REACTOR SUPERVISOR - 01/20/2023 11:59 PM POWER REACTOR SUPERVISOR Hospital Encounter Department of Laboratory Medicine in [address] [address] Mari Noguera M.D. Multiple Myeloma Not Having Achieved Remission (HCC); Diarrhea Discharge Disposition: Home or Self Care 01/20/2023 Clinical Communication Department of Oncology in [address] [phone] Mari Noguera M.D. 01/20/2023 Clinical Communication Department of Oncology in [address] [phone] Mari Noguera M.D. Lab Question 01/18/2023 9:33 AM POWER REACTOR SUPERVISOR - 01/18/2023 11:59 PM POWER REACTOR SUPERVISOR Hospital Encounter Department of Laboratory Medicine in [address] [phone] Mari Noguera M.D. Discharge Disposition: Home or Self Care 01/18/2023 Orders Only Department of Oncology in [address] [phone] Mari Noguera M.D. Multiple Myeloma Not Having Achieved Remission (HCC) (Primary Dx) 01/13/2023 8:52 AM POWER REACTOR SUPERVISOR - 01/13/2023 11:59 PM POWER REACTOR SUPERVISOR Hospital Encounter Department of Laboratory Medicine in [address] [phone] Mari Noguera M.D. Multiple Myeloma Not Having Achieved Remission (HCC); Diarrhea Discharge Disposition: Home or Self Care 01/13/2023 8:40 AM POWER REACTOR SUPERVISOR Office Visit Department of Oncology in [address] [phone] Mari Noguera M.D. Multiple Myeloma Not Having Achieved Remission (HCC) (Primary Dx); Diarrhea; Transplant Stem Cell (HCC); Thrombocytopenia (HCC) 01/12/2023 9:54 AM POWER REACTOR SUPERVISOR - 01/12/2023 11:59 PM POWER REACTOR SUPERVISOR Hospital Encounter Department of Laboratory Medicine in [address] [phone] Mari Noguera M.D. Multiple Myeloma Not Having Achieved Remission (HCC) Discharge Disposition: Home or Self Care 01/02/2023 Specialty Pharmacy [facility] [address] [place] [address] Aylin Sahu Pharm.D., R.Ph. 12/30/2022 9:15 AM CDT Infusion Department of Infusion Therapy in [address] [phone] Mari Noguera M.D. Multiple Myeloma Not Having Achieved Remission (HCC) (Primary Dx); Transplant Stem Cell (HCC); Multiple Myeloma In Remission (HCC) 12/29/2022 1:21 PM CDT - 12/29/2022 11:59 PM CDT Hospital Encounter Department of Laboratory Medicine in [address] [phone] Mari Noguera M.D. Multiple Myeloma Not Having Achieved Remission (HCC) Discharge Disposition: Home or Self Care 12/29/2022 9:20 AM CDT - 12/29/2022 1:20 PM CDT Hospital Encounter Department of Laboratory Medicine in [address] [phone] Mari Noguera M.D. Multiple Myeloma Not Having Achieved Remission (HCC) Discharge Disposition: Home or Self Care 12/29/2022 Orders Only Department of Infusion Therapy in [address] [phone] Donita Sandhu R.N. Multiple Myeloma Not Having Achieved Remission (HCC) (Primary Dx) 12/27/2022 Clinical Communication Department of Oncology in [address] [phone] Mari Noguera M.D. Nurse Assessment 12/27/2022 Refill Department of Oncology in [address] [phone] Mari Noguera M.D. Med Refill 12/26/2022 Orders Only Department of Oncology in [address] [phone] Mari Noguera M.D. Multiple Myeloma Not Having Achieved Remission (HCC) 12/24/2022 Orders Only Department of Oncology in [place], [place] [address] [place] [address] Mari Noguera M.D. 12/20/2022 Clinical Communication [facility] [address] [place] [phone] Gregoria May C.Ph.T. New Med Request 12/20/2022 Clinical Communication [facility] [address] [place] [address] Katelin Vargas, Pharm.D., R.Ph. [facility]SP unable to fill generic Revlimid for patient 12/20/2022 Clinical Communication Pharmacy Prior Auth RO [phone] Jovita Espinosa 12/20/2022 Clinical Communication Department of Oncology in [place], [place] [address] [place] [phone] Mari Noguera M.D. Rx Denial (REVLIMID CAPSULE) from Last 3 Months Immunizations Name Administration [...] How often do you attend chur or mandaeism services? 1 to 4 times per year 06/11/2021 Do you belong to any clubs o r organizations such as cheondoism groups, unions, fraternal or athletic groups, or [...] Answer Date Recorded PHQ-2 Score 4 11/18/2021 [facility] - Occupational Stress Questionnaire Answer Date [...] Sign Reading Time Taken Comments Blood Pressure 153/62 03/17/2023 8:33 AM POWER REACTOR SUPERVISOR Pulse 53 03/17/2023 8:33 AM POWER REACTOR SUPERVISOR Temperature 36.6 ??C (97.9 ??F) 03/03/2023 3:23 PM CS T Respiratory Rate 18 02/17/2023 9:10 AM POWER REACTOR SUPERVISOR Oxygen Saturation 100% 03/17/2023 8:30 AM POWER REACTOR SUPERVISOR room air Inhaled Oxygen Concentration - - Weight 85 kg (187 lb 6.3 oz) 03/17/2023 8:30 AM POWER REACTOR SUPERVISOR Height 158.4 cm (5' 2.36) 10/07/2022 11:14 AM C DT Body Mass Index 33.88 10/07/2022 11:14 AM CDT Plan of Treatment Upcoming Encounters Date Type Department Care Team (Late st Contact Info) Description 03/22/2023 7:30 AM POWER REACTOR SUPERVISOR Appointment Department of Laboratory Medicine and Pathology, [facility] in [place], [place] [address] [place] [address] Mari Noguera M.D. [address] [place] [phone] 03/22/2023 8:45 AM POWER REACTOR SUPERVISOR Hospital Encounter Outpatient Procedure Center in [place], [place] [address] [place] [address] Mari Noguera M.D. [address] [place] [phone] 03/31/2023 10:10 AM POWER REACTOR SUPERVISOR Appointment Department of Laboratory Medicine in [address] [phone] Mari Noguera M.D. [address] [place] [phone] 04/04/2023 3:20 PM POWER REACTOR SUPERVISOR Office Visit Department of Oncology in [address] [phone] Mari Noguera M.D. [address] [place] [phone] 04/04/2023 3:45 PM POWER REACTOR SUPERVISOR Infusion Department of Infusion Therapy in [address] [phone] Mari Noguera M.D. [address] [place] [phone] 04/13/2023 10:10 AM POWER REACTOR SUPERVISOR Appointment Department of Laboratory Medicine in [place], [place] [address] [facility] [phone] Mari Noguera M.D. [address] [place] [phone] 04/14/2023 9:00 AM POWER REACTOR SUPERVISOR Infusion Department of Infusion Therapy in [place], [place] [address] [place] [address] Mari Noguera M.D. [address] [place] [address] Health Maintenance Due Date Last Done Comments [...] 09/27/2021 Urinalysis 06/08/2022 12/08/2021, 09/23/2021 Thyroid Function Inyo 09/21/2022 09/21/2021 Vitamin D Testing 09/21/2022 09/21/2021 Spirometry with DLCO or PFT 09/23/2022 09/23/2021 Depression Screening (Annual PHQ-2) 02/27/2023 Fall Risk Screen (Annual) 02/27/2023 Office Visit for Blood Press ure Check / Re-check 06/16/2023 03/17/2023, 03/30/2022, 03/30/2022 Creatinine Level (Kidney Fun ction Test) 03/02/2024 03/02/2023, 01/27/2023, 01/20/2023, Additional history exists Potassium Level 03/02/2024 03/02/2023, 02/2022, 01/20/2023, Additional history exists Sodium Level 03/02/2024 03/02/2023, 02/2022, 01/20/2023, Additional history exists Serum Protein Electrophoresis 03/17/2024, 01/20/2023, 12/02/2022, Additional history exists Bone Density Scan (Osteoporo sis Screen) Discontinued 12/31/2014 Hepatitis C Screening Completed 11/10/2021 , 10/21/2021, 09/21/2021 COVID-19 Vaccine Completed 12/08/2022, 11/2022, 07/05/2022, Additional history exists Influenza Vaccine Completed 12/08/2022, , 02/17/2021, Additional history exists Procedures Procedure Name Priority Date/Time Associated Diagnosis Comments FOLATE, S Routine 03/17/2023 9:24 AM POWER REACTOR SUPERVISOR Multiple Myeloma In Remission (HCC) VITAMIN B12 ASSAY, S Routine 03/17/2023 9:24 AM POWER REACTOR SUPERVISOR Multiple Myeloma In Remission (HCC) MONOCLONAL GAMMOPATHY DIAGNOSTIC, S Routine 03/17/2023 9:24 AM POWER REACTOR SUPERVISOR Multiple Myeloma In Remission (HCC) CBC WITH DIFFERENTIAL, B Routine 03/16/2023 10:37 AM POWER REACTOR SUPERVISOR Multiple Myeloma Not Having Achieved Remission (HCC) IMMUNOGLOBULINS (IGG, IGA, AND IGM), S Routine 03/16/2023 10:37 AM POWER REACTOR SUPERVISOR Multiple Myeloma Not Having Achieved Remission (HCC) IMMUNOGLOBULINS (IGG, IGA, AND IGM), S Routine 03/02/2023 10:56 AM POWER REACTOR SUPERVISOR Multiple Myeloma Not Having Achieved Remission (HCC) COMPREHENSIVE METABOLIC PANEL, S/P Routine 03/02/2023 10:56 AM POWER REACTOR SUPERVISOR Multiple Myeloma Not Having Achieved Remission (HCC) CBC WITH DIFFERENTIAL, B Routine 03/02/2023 10:56 AM POWER REACTOR SUPERVISOR Multiple Myeloma Not Having Achieved Remission (HCC) CBC WITH DIFFERENTIAL, B Routine 02/17/2023 8:29 AM POWER REACTOR SUPERVISOR Multiple Myeloma Not Having Achieved Remission (HCC) CBC WITH DIFFERENTIAL, B Routine 02/09/2023 2:36 PM POWER REACTOR SUPERVISOR Multiple Myeloma Not Having Achieved Remission (HCC) IMMUNOGLOBULINS (IGG, IGA, AND IGM), S Routine 02/09/2023 2:36 PM POWER REACTOR SUPERVISOR Multiple Myeloma Not Having Achieved Remission (HCC) CBC WITH DIFFERENTIAL, B Routine 01/30/2023 1:16 PM POWER REACTOR SUPERVISOR Thrombocytopenia (HCC) COMPREHENSIVE METABOLIC PANEL, S/P Routine 01/27/2023 8:00 AM POWER REACTOR SUPERVISOR Multiple Myeloma Not Having Achieved Remission (HCC) CBC WITH DIFFERENTIAL, B Routine 01/27/2023 8:00 AM POWER REACTOR SUPERVISOR Multiple Myeloma Not Having Achieved Remission (HCC) MONOCLONAL GAMMOPATHY DIAGNOSTIC, S Routine 01/20/2023 10:03 AM POWER REACTOR SUPERVISOR Multiple Myeloma Not Having Achieved Remission (HCC) Diarrhea COMPREHENSIVE METABOLIC PANEL, S/P Routine 01/20/2023 10:03 AM POWER REACTOR SUPERVISOR Multiple Myeloma Not Having Achieved Remission (HCC) CBC WITH DIFFERENTIAL, B Routine 01/20/2023 10:03 AM POWER REACTOR SUPERVISOR Multiple Myeloma Not Having Achieved Remission (HCC) GI PATHOGEN PANEL, PCR, F Routine 01/18/2023 3:00 PM POWER REACTOR SUPERVISOR Multiple Myeloma Not Having Achieved Remission (HCC) Diarrhea COMPREHENSIVE METABOLIC PANEL, S/P Routine 01/12/2023 10:10 AM POWER REACTOR SUPERVISOR Multiple Myeloma Not Having Achieved Remission (HCC) CBC WITH DIFFERENTIAL, B Routine 01/12/2023 10:10 AM POWER REACTOR SUPERVISOR Multiple Myeloma Not Having Achieved Remission (HCC) CBC WITH DIFFERENTIAL, B Routine 12/29/2022 1:31 PM CDT Multiple Myeloma Not Having Achieved Remission (HCC) IMMUNOGLOBULINS (IGG, IGA, AND IGM), S Routine 12/29/2022 9:33 AM CDT Multiple Myeloma Not Having Achieved Remission (HCC) from Last 3 Months Results * (ABNORMAL) Monoclonal Gammopathy Diagnostic (03/17/2023 9:24 AM POWER REACTOR SUPERVISOR) Only the most recent of2 resultswithin the time period is included. Therapeutic Antibody Administered? Unspecified 03/20/2023 6:29 AM POWER REACTOR SUPERVISOR SDSC Total Protein, S 6.5 6.3 - 7.9 g/dL 03/20/2023 7:58 AM POWER REACTOR SUPERVISOR [facility] [place] Free Light Chain, S 0.9300 0.3300 - 1.94 mg/dL 03/20/2023 12:39 PM POWER REACTOR SUPERVISOR [facility]SC Lambda Free Light Chain, S 1.38 0.5700 - 2.63 mg/dL 03/20/2023 12:40 PM POWER REACTOR SUPERVISOR SDSC [place]/Lambda FLC Ratio 0.6739 0.2600 - 1.65 03/20/2023 12:40 PM POWER REACTOR SUPERVISOR SDSC Albumin 3.3(L) 3.4 - 4.7 g/dL 03/20/2023 1:19 PM POWER REACTOR SUPERVISOR SDSC Alpha-1 Globulin 0.3 0.1 - 0.3 g/dL 03/20/2023 1:19 PM POWER REACTOR SUPERVISOR SDSC Alpha-2 Globulin 1.0 0.6 - 1.0 g/dL 03/20/2023 1:19 PM POWER REACTOR SUPERVISOR [facility]SC Beta-Globulin 0.9 0.7 - 1.2 g/dL 03/20/2023 1:19 PM POWER REACTOR SUPERVISOR [facility] Gamma-Globulin 1.0 0.6 - 1.6 g/dL 03/20/2023 1:19 PM POWER REACTOR SUPERVISOR SDSC A/G Ratio 1.01 03/20/2023 1:19 PM POWER REACTOR SUPERVISOR SDSC M spike 0.6(H) g/dL 03/20/2023 1:19 PM POWER REACTOR SUPERVISOR SDSC Impression M-spike in gamma fraction. See Isotype. 03/20/2023 1:19 PM POWER REACTOR SUPERVISOR SDSC Flag, M-protein Isotype Positive(A) Negative 03/21/2023 8:02 AM POWER REACTOR SUPERVISOR [facility] M-protein Isotype MALDI-TOF MS IgG lambda, monoclonal. 03/21/2023 8:02 AM POWER REACTOR SUPERVISOR [facility] Comment: ----ADDITIONAL INFORMATION---- The submitted sample was assayed by five separate immunopurifications for IgG, IgA, IgM, kappa and lambda. ??The result reflects the findings of either no monoclonal protein detected or those monoclonal immunoglobulins that were detected. This test was developed and its performance characteristics determined by [facility] in a manner consistent with CLIA requirements. This test has not been cleared or approved by the U.S. Food and Drug Administration. Blood (Blood, Venous) 03/17/2023 9:24 AM POWER REACTOR SUPERVISOR 03/20/2023 6:44 AM POWER REACTOR SUPERVISOR Narrative [facility] - 03/21/2023 8:02 AM POWER REACTOR SUPERVISOR Specimen Information: Specimen ID: [id number] Specimen Type: Blood Specimen Collection Start Date: 03/17/2023 ??9:24 AM Specimen Received Date: 03/20/2023 ??6:44 AM Specimen ID: [id number] Specimen Type: Blood Specimen Collection Start Date: 03/17/2023 ??9:24 AM Specimen Received Date: 03/20/2023 ??6:29 AM Mari Noguera M.D. LAB BLOOD ADD-ON [facility] [address] [place] [address] [facility] [address] [place] [address] [place] [facility] [place] [address] * Folate (03/17/2023 9:24 AM POWER REACTOR SUPERVISOR) [facility] Folate, S 8.0 >=4.0 mcg/L 03/17/2023 3:10 PM POWER REACTOR SUPERVISOR [facility] Comment: Biotin has been identified by the ingot header as a potential interfering substance. Higher concentrations of biotin may be found in multivitamins, hair/nail supplements, and workout supplements. If the result does not match clinical observations, repeat testing after patient refrains from the use of supplements for at least 12 hours. Blood (Blood, Venous) 03/17/2023 9:24 AM POWER REACTOR SUPERVISOR 03/17/2023 2:34 PM POWER REACTOR SUPERVISOR Mari Noguera M.D. LAB BLOOD ADD-ON Performing Organization Address City/[facility]/ZIP Co de Phone Number [facility][NOTE 3] LAB [address] [place] [address], [facility] ECLR in [address] [address] * Vitamin B12 Assay (03/17/2023 9:24 AM POWER REACTOR SUPERVISOR) Pathologist [facility] Vitamin B12 Assay, S 1052 232 - 1245 ng/L 03/17/2023 3:10 PM POWER REACTOR SUPERVISOR [facility] Comment: Biotin has been identified by the ingot header as a potential interfering substance. Higher concentrations of biotin may be found in multivitamins, hair/nail supplements, and workout supplements. If the result does not match clinical observations, repeat testing after patient refrains from the use of supplements for at least 12 hours. Blood (Blood, Venous) 03/17/2023 9:24 AM POWER REACTOR SUPERVISOR 03/17/2023 2:34 PM POWER REACTOR SUPERVISOR Mari Noguera M.D. LAB BLOOD ADD-ON Performing Organization Address City/[facility]/ZIP Co de Phone Number [facility][NOTE 3] LAB [address] [place] [phone], [facility] ECLR in [address] [address] * (ABNORMAL) CBC with Differential, Blood (03/16/2023 10:37 AM POWER REACTOR SUPERVISOR) Only the most recent of9 resultswithin the time period is included. Hemoglobin 11.1(L) 11.6 - 15.0 g/dL 03/16/2023 11:04 AM POWER REACTOR SUPERVISOR FB60 Hematocrit 35.0(L) 35.5 - 44.9 % 03/16/2023 11:04 AM POWER REACTOR SUPERVISOR FB60 Erythrocytes 3.33(L) 3.92 - 5.13 x10(12)/L 03/16/2023 11:04 AM POWER REACTOR SUPERVISOR FB60 MCV 105.1(H) 78.2 - 97.9 fL 03/16/2023 11:04 AM POWER REACTOR SUPERVISOR FB60 RBC Distrib Width 16.1 12.2 - 16.1 % 03/16/2023 11:04 AM POWER REACTOR SUPERVISOR FB60 Platelet Count 63(L) 157 - 371 x10(9)/L 03/16/2023 11:04 AM POWER REACTOR SUPERVISOR FB60 Leukocytes 1.9(L) 3.4 - 9.6 x10(9)/L 03/16/2023 11:04 AM POWER REACTOR SUPERVISOR FB60 Neutrophils 0.80(L) 1.56 - 6.45 x10(9)/L 03/16/2023 11:04 AM POWER REACTOR SUPERVISOR FB60 Lymphocytes 0.87(L) 0.95 - 3.07 x10(9)/L 03/16/2023 11:04 AM POWER REACTOR SUPERVISOR FB60 Monocytes 0.22(L) 0.26 - 0.81 x10(9)/L 03/16/2023 11:04 AM POWER REACTOR SUPERVISOR FB60 Eosinophils 0.04 0.03 - 0.48 x10(9)/L 03/16/2023 11:04 AM POWER REACTOR SUPERVISOR FB60 Basophils <0.04 0.01 - 0.08 x10(9)/L 03/16/2023 11:04 AM POWER REACTOR SUPERVISOR FB60 Blood (Blood, Venous) 03/16/2023 10:37 AM POWER REACTOR SUPERVISOR 03/16/2023 10:37 AM POWER REACTOR SUPERVISOR Mari Noguera M.D. LAB BLOOD ADD-ON [facility] [address] [place] [address], [facility] FB60 in [place] [address] [place] [address] * (ABNORMAL) Immunoglobulins (IgG, IgA, and IgM) (03/16/2023 10:37 AM POWER REACTOR SUPERVISOR) Only the most recent of4 resultswithin the time period is included. Immunoglobulin A (IgA), S 35(L) 61 - 356 mg/dL 03/17/2023 8:23 AM POWER REACTOR SUPERVISOR [facility] Immunoglobulin M (IgM), S 12(L) 37 - 286 mg/dL 03/17/2023 9:41 AM POWER REACTOR SUPERVISOR [facility] Immunoglobulin G (IgG), S 1010 767 - 1590 mg/dL 03/17/2023 8:23 AM POWER REACTOR SUPERVISOR [facility] Blood (Blood, Venous) 03/16/2023 10:37 AM POWER REACTOR SUPERVISOR 03/17/2023 6:15 AM POWER REACTOR SUPERVISOR Mari Noguera M.D. LAB BLOOD ADD-ON [facility] [address] [place] [address] [facility] [address] [place] [address] * (ABNORMAL) Comprehensive Metabolic Panel (03/02/2023 10:56 AM POWER REACTOR SUPERVISOR) Only the most recent of4 resultswithin the time period is included. Potassium, P 3.7 3.6 - 5.2 mmol/L 03/02/2023 1:54 PM POWER REACTOR SUPERVISOR OWAT Sodium, P 141 135 - 145 mmol/L 03/02/2023 1:54 PM POWER REACTOR SUPERVISOR OWAT Chloride, P 100 98 - 107 mmol/L 03/02/2023 1:54 PM POWER REACTOR SUPERVISOR OWAT Bicarbonate, P 27 22 - 29 mmol/L 03/02/2023 1:54 PM POWER REACTOR SUPERVISOR OWAT Anion Gap, P 14 7 - 15 03/02/2023 1:54 PM POWER REACTOR SUPERVISOR OWAT BUN (Blood Urea Nitrogen), P 36(H) 6 - 21 mg/dL 03/02/2023 1:54 PM POWER REACTOR SUPERVISOR OWAT Creatinine 1.53(H) 0.59 - 1.04 mg/dL 03/02/2023 1:54 PM POWER REACTOR SUPERVISOR OWAT Estimated GFR (eGFR) 35(L) >=60 mL/min/BS A 03/02/2023 1:54 PM POWER REACTOR SUPERVISOR OWAT Comment: Estimated GFR calculated using the 2020 CKD_EPI creatinine equation. Calcium, Total, P 9.8 8.8 - 10.2 mg/dL 03/02/2023 1:54 PM POWER REACTOR SUPERVISOR OWAT Glucose, P 163(H) 70 - 140 mg/dL 03/02/2023 1:54 PM POWER REACTOR SUPERVISOR OWAT Protein, Total, P 7.1 6.3 - 7.9 g/dL 03/02/2023 1:54 PM POWER REACTOR SUPERVISOR OWAT Albumin, P 4.4 3.5 - 5.0 g/dL 03/02/2023 1:54 PM POWER REACTOR SUPERVISOR OWAT Aspartate Aminotransferase (AST), P 30 8 - 43 U/L 03/02/2023 1:54 PM POWER REACTOR SUPERVISOR OWAT Alkaline Phosphatase, P 65 35 - 104 U/L 03/02/2023 1:54 PM POWER REACTOR SUPERVISOR OWAT Alanine Aminotransferase (ALT), P 31 7 - 45 U/L 03/02/2023 1:54 PM POWER REACTOR SUPERVISOR OWAT Bilirubin, Total, P 0.3 0.0 - 1.2 mg/dL 03/02/2023 1:54 PM POWER REACTOR SUPERVISOR OWAT Blood (Blood, Venous) 03/02/2023 10:56 AM POWER REACTOR SUPERVISOR 03/02/2023 1:14 PM POWER REACTOR SUPERVISOR Mari Noguera M.D. LAB BLOOD ADD-ON [facility] [address] [place] [phone], [facility] OWAT in [place] [address] [place] [phone] * GI Pathogen Panel, PCR, Feces (01/18/2023 3:00 PM POWER REACTOR SUPERVISOR) Specimen Source STOOL 1:03 PM POWER REACTOR SUPERVISOR RDWG Campylobacter species Negative Negative 01/20/2023 1:03 PM POWER REACTOR SUPERVISOR [facility] C. difficile toxin Negative Negative 2022 1:03 PM POWER REACTOR SUPERVISOR [facility] Plesiomonas shigelloides Negative Negative 01/20/2023 1:03 PM POWER REACTOR SUPERVISOR [facility] Salmonella species Negative Negative 2022 1:03 PM POWER REACTOR SUPERVISOR [facility] Vibrio species Negative Negative 01/20/2023 1:03 PM POWER REACTOR SUPERVISOR [facility] Vibrio cholerae Negative Negative 1:03 PM POWER REACTOR SUPERVISOR RDW[facility] Yersinia species Negative Negative 01/21/20 1:03 PM POWER REACTOR SUPERVISOR RDW[facility] Enteroaggregative E. coli (EAEC) Negative Negative 01/20/2023 1:03 PM POWER REACTOR SUPERVISOR RDW[facility] Enteropathogenic E. coli (EPEC) Negative Negative 01/20/2023 1:03 PM POWER REACTOR SUPERVISOR RDW[facility] Enterotoxigenic E. coli (ETEC) Negative Negative 01/20/2023 1:03 PM POWER REACTOR SUPERVISOR RDW[facility] Shiga toxin producing E. coli Negative Negative 01/20/2023 1:03 PM POWER REACTOR SUPERVISOR RDW[facility] Shigella/Enteroinvas carlos E. coli Negative Negative 01/20/2023 1:03 PM POWER REACTOR SUPERVISOR RDW[facility] Cryptosporidium species Negative Negative 01/20/2023 1:03 PM POWER REACTOR SUPERVISOR RDW[facility] Cyclospora cayetanensis Negative Negative 01/20/2023 1:03 PM POWER REACTOR SUPERVISOR RDW[facility] Entamoeba histolytica Negative Negative 01/20/2023 1:03 PM POWER REACTOR SUPERVISOR RDW[facility] Giardia Negative Negative 01/20/2023 1:03 PM POWER REACTOR SUPERVISOR RDW[facility] Adenovirus F40/41 Negative Negative 023 1:03 PM POWER REACTOR SUPERVISOR RDWG Astrovirus Negative Negative 01/20/2023 1:03 PM POWER REACTOR SUPERVISOR RDWG Norovirus GI/GII Negative Negative 01/21/20 1:03 PM POWER REACTOR SUPERVISOR RDWG Rotavirus Ag, F Negative Negative 1:03 PM POWER REACTOR SUPERVISOR RDWG Sapovirus Negative Negative 01/20/2023 1:03 PM POWER REACTOR SUPERVISOR RDWG Comment: ----ADDITIONAL INFORMATION---- This assay is performed using the FDA-cleared FilmArray GI Panel ([employer] Stool (Stool) 01/18/2023 3:0 0 PM POWER REACTOR SUPERVISOR 01/20/2023 9:53 AM POWER REACTOR SUPERVISOR Mari Noguera M.D. LAB MICROBIOLOGY - G ENERAL ORDERABLES [facility] [address] [address], [facility] RDWG [address] [address] from Last 3 Months Additional Health Concerns Infection Onset Date Last Indicated Protective Environment 06/03/2022 Advance Directives For more information, please contact: [phone] Latest Code Status on File Code Status Date Activated Date Inactivated Comments Full Code 12/07/2021 2:52 PM 12/15/2021 4:48 PM Question Answer Comments Full Code: Discussed Care Teams Art Psychotherapist Or Therapist Relationship Specialty Start Date End Date Elsewhere, Pcp PCP - General Internal Medicine 04/01/22
--- OUTSIDE RECORDS SUMMARY | 2023-03-21 10:30 | XMS_ITS ---
Author Name Unknown Organization [facility] Address [address] [place] [address] Care Team Providers Care Diagnostic Assistant Name Role Phone Elsewhere, Pcp Primary Care Provider Unavailabl e Active Problems Problem Noted Date Diagnosed Date COVID-19 Infection 03/22/2022 Overview: This patients COVID history is as follows: Initial date of symptoms: 03/18/22 Symptoms at onset: not severe Date of positive test: 03-19-22 Initial treatment paxlovid Qualifying condition/medication for CCP: Multiple myeloma Blood type / location: ordered for 03/23/22 [place] Infusion dates: Ordered for [place] 03/23/22 Follow up 03-25-22. Feeling much better. [...] day cycles) 2 10/29/2021 bortezomib (VELCADE)darat umumab-hyaluro nidase-formerly [facility] (DARZALEX FASPRO) Therapy Complete Mari Noguera M.D. [...] treatments are documented for this patient in [facility]. Treatments may have been administered in another [...]
--- OUTSIDE RECORDS SUMMARY | 2023-03-21 10:30 | XMS_ITS | Encounter Summary ---
Author Name Unknown Organization [facility] Address [address] [place] [address] Care Team Providers Care Net Programmer Name Role Phone Elsewhere, Pcp Primary Care Provider Unavailabl e Encounter Details Date Type Department Care Team (Late st Contact Info) Description 03/20/2023 Clinical Communication Division of Hematology in [place], [place] [address] [place] [address] Mari Noguera M.D. [address] [place] [address] [phone] Social History Tobacco Use Types Packs/Day Years [...] often do you attend chur ch or yazidi services? 1 to 4 times [...] st Contact Info) Description 03/22/2023 7:30 AM EYEWEAR MANUFACTURING SUPERVISOR Appointment Department of Laboratory Medicine and Pathology, [facility], in [place], [place] [address] [place] [address] Mari Noguera M.D. [address] [place] [address] [phone] 03/22/2023 8:45 AM EYEWEAR MANUFACTURING SUPERVISOR Hospital Encounter Outpatient Procedure Center in [place], [place] [address] [place] [address] Mari Noguera M.D. [facility] [place] [phone] 03/31/2023 10:10 AM EYEWEAR MANUFACTURING SUPERVISOR Appointment Department of Laboratory Medicine in [address] [address] Mari Noguera M.D. [address] [place] [address] [phone] 04/04/2023 3:20 PM EYEWEAR MANUFACTURING SUPERVISOR Office Visit Department of Oncology in [address] [phone] Mari Noguera M.D. [address] [place] [phone] 04/04/2023 3:45 PM EYEWEAR MANUFACTURING SUPERVISOR Infusion Department of Infusion Therapy in [address] [phone] Mari Noguera M.D. [address] [place] [address] [phone] 04/13/2023 10:10 AM EYEWEAR MANUFACTURING SUPERVISOR Appointment Department of Laboratory Medicine in [address] [address] Mari Noguera M.D. [address] [place] [address] [phone] 04/14/2023 9:00 AM EYEWEAR MANUFACTURING SUPERVISOR Infusion Department of Infusion Therapy in [address] [phone] Mari Noguera M.D. [address] [place] [phone] documented as of this encounter Visit Diagnoses Not on filedocumented in this encounter Additional Health Concerns Infection Onset Date Last Indicated Resolved Time Protective Environment 06/03/2022 06/03/2022 documented as of this encounter Care Teams Net Programmer Relationship Specialty Start Date End Date Elsewhere, Pcp PCP - General Internal Medicine 04/01/22 documented as of this encounter
--- OUTSIDE RECORDS SUMMARY | 2023-03-21 10:30 | XMS_ITS | Encounter Summary ---
Author Name Unknown Organization [facility] Address [address] [place] [address] Care Team Providers Care Senior Analytic Consultant Name Role Phone Elsewhere, Pcp Primary Care Provider Unavailabl e Encounter Details Date Type Department Care Team (Latest Contact Info) Description 03/17/2023 9:09 AM RADIOLOGY PHYSICIAN ASSISTANT - 03/17/2023 11:59 PM [facility] Hospital Encounter Department of Laboratory Medicine in [place], [place] [address] [place] [address] Mari Noguera M.D. [address] [place] [address] Multiple Myeloma In Remission (HCC) [...] How often do you attend chur or anabaptist services? 1 to 4 times [...] 11/18/2021 [facility] - [...] 2 (two) times a day. 0 09/28/2022 lenalidomide (REVLIMID) 10 mg capsuleIndications:Mul tiple Myeloma Not Having Achieved Remission (HCC) Take 1 capsule (10 mg total) by mouth daily. Take for 21 days of each 28 day cycle. Take whole with water. Do not break, chew, or open. 21 capsule 0 03/09/2023 03/30/2023 lisinopriL (PRINIVIL,ZESTRIL) 40 mg tablet Take 1 [...] anxiety (Patient taking AM and PM). 0 LORazepam (ATIVAN) 0.5 mg tablet Take 0.5 mg by mouth. 0 02/28/2023 metFORMIN (GLUCOPHAGE) 500 mg tablet 500 mg [...] by ondansetron). 30 tablet 3 03/28/2022 03/28/2023 Slow-Mag [address] tablet TAKE 2 TABLETS BY MOUTH EVERY MORNING BEFORE BREAKFAST- DO NOT CRUSH OR CHEW. 30 tablet 1 03/16/2023 documented as of this encounter Plan of Treatment Upcoming Encounters Date Type Department Care Team (Late st Contact Info) Description 03/22/2023 7:30 AM RADIOLOGY PHYSICIAN ASSISTANT Appointment Department of Laboratory Medicine and Pathology, [facility], in [place], [place] [address] [place] [address] Mari Noguera M.D. [address] [place] [phone] 03/22/2023 8:45 AM RADIOLOGY PHYSICIAN ASSISTANT Hospital Encounter Outpatient Procedure Center in [place], [place] [address] [place] [address] Mari Noguera M.D. [address] [place] [phone] 03/31/2023 10:10 AM RADIOLOGY PHYSICIAN ASSISTANT Appointment Department of Laboratory Medicine in [place], [place] [address] [place] [address] Mari Noguera M.D. [address] [place] [address] [phone] 04/04/2023 3:20 PM RADIOLOGY PHYSICIAN ASSISTANT Office Visit Department of Oncology in [address] [phone] Mari Noguera M.D. [address] [place] [address] [phone] 04/04/2023 3:45 PM RADIOLOGY PHYSICIAN ASSISTANT Infusion Department of Infusion Therapy in [address] [phone] Mari Noguera M.D. [address] [place] [phone] 04/13/2023 10:10 AM RADIOLOGY PHYSICIAN ASSISTANT Appointment Department of Laboratory Medicine in [place] [address] [address] [place] [phone] Mari Noguera M.D. [address] [place] [phone] 04/14/2023 9:00 AM RADIOLOGY PHYSICIAN ASSISTANT Infusion Department of Infusion Therapy in [address] [phone] Mari Noguera M.D. [address] [place] [address] [phone] Pending Results Name Type Priority Associated Diagnoses Date /Time Methylmalonic Acid (MMA), Quantitative Lab Routine Multiple Myeloma In Remission (HCC) 03/17/2023 9:24 AM RADIOLOGY PHYSICIAN ASSISTANT Scheduled Orders Name Type Priority Associated Diagnoses Orde r Schedule Methylmalonic Acid (MMA), Quantitative Lab Routine Multiple Myeloma In Remission (HCC) Once for 1 Occurrences starting 03/17/2023 until 03/17/2023 documented as of this encounter Procedures Procedure Name Priority Date/Time Associated Diagnosis Comments MONOCLONAL GAMMOPATHY DIAGNOSTIC, S Routine 03/17/2023 9:24 AM RADIOLOGY PHYSICIAN ASSISTANT Multiple Myeloma In Remission (HCC) FOLATE, S Routine 03/17/2023 9:24 AM RADIOLOGY PHYSICIAN ASSISTANT Multiple Myeloma In Remission (HCC) VITAMIN B12 ASSAY, S Routine 03/17/2023 9:24 AM RADIOLOGY PHYSICIAN ASSISTANT Multiple Myeloma In Remission (HCC) documented in this encounter Results * Folate (03/17/2023 9:24 AM RADIOLOGY PHYSICIAN ASSISTANT) Folate, S 8.0 >=4.0 mcg/L 03/17/2023 3:10 PM RADIOLOGY PHYSICIAN ASSISTANT ECLR Comment: Biotin has been identified by the juvenile probation officer as a potential interfering substance. Higher concentrations of biotin may be found in multivitamins, hair/nail supplements, and workout supplements. If the result does not match clinical observations, repeat testing after patient refrains from the use of supplements for at least 12 hours. Blood (Blood, Venous) 03/17/2023 9:24 AM RADIOLOGY PHYSICIAN ASSISTANT 03/17/2023 2:34 PM RADIOLOGY PHYSICIAN ASSISTANT Mari Noguera M.D. LAB BLOOD ADD-ON Performing Organization Address City/[facility] Co de Phone Number [facility] [address] [place] [phone], [facility] ECLR [address] [address] * Vitamin B12 Assay (03/17/2023 9:24 AM RADIOLOGY PHYSICIAN ASSISTANT) [facility] Vitamin B12 Assay, S 1052 232 - 1245 ng/L 03/17/2023 3:10 PM RADIOLOGY PHYSICIAN ASSISTANT ECLR Comment: Biotin has been identified by the juvenile probation officer as a potential interfering substance. Higher concentrations of biotin may be found in multivitamins, hair/nail supplements, and workout supplements. If the result does not match clinical observations, repeat testing after patient refrains from the use of supplements for at least 12 hours. Blood (Blood, Venous) 03/17/2023 9:24 AM RADIOLOGY PHYSICIAN ASSISTANT 03/17/2023 2:34 PM RADIOLOGY PHYSICIAN ASSISTANT Mari Noguera M.D. LAB BLOOD ADD-ON Performing Organization Address City/[facility]/ZIP Co de Phone Number [facility] [address] [place] [phone], [facility] ECLR [address] [address] * (ABNORMAL) Monoclonal Gammopathy Diagnostic (03/17/2023 9:24 AM RADIOLOGY PHYSICIAN ASSISTANT) Pathologist [facility] Therapeutic Antibody Administered? Unspecified 03/20/2023 6:29 AM RADIOLOGY PHYSICIAN ASSISTANT [facility] Total Protein, S 6.5 6.3 - 7.9 g/dL 03/20/2023 7:58 AM RADIOLOGY PHYSICIAN ASSISTANT [facility] [place] Free Light Chain, S 0.9300 0.3300 - 1.94 mg/dL 03/20/2023 12:39 PM RADIOLOGY PHYSICIAN ASSISTANT [facility] Lambda Free Light Chain, S 1.38 0.5700 - 2.63 mg/dL 03/20/2023 12:40 PM RADIOLOGY PHYSICIAN ASSISTANT [facility] [place]/Lambda FLC Ratio 0.6739 0.2600 - 1.65 03/20/2023 12:40 PM RADIOLOGY PHYSICIAN ASSISTANT [facility] Albumin 3.3(L) 3.4 - 4.7 g/dL 03/20/2023 1:19 PM RADIOLOGY PHYSICIAN ASSISTANT [facility] Alpha-1 Globulin 0.3 0.1 - 0.3 g/dL 03/20/2023 1:19 PM RADIOLOGY PHYSICIAN ASSISTANT [facility] Alpha-2 Globulin 1.0 0.6 - 1.0 g/dL 03/20/2023 1:19 PM RADIOLOGY PHYSICIAN ASSISTANT [facility] Beta-Globulin 0.9 0.7 - 1.2 g/dL 03/20/2023 1:19 PM RADIOLOGY PHYSICIAN ASSISTANT [facility] Gamma-Globulin 1.0 0.6 - 1.6 g/dL 03/20/2023 1:19 PM RADIOLOGY PHYSICIAN ASSISTANT [facility] A/G Ratio 1.01 03/20/2023 1:19 PM RADIOLOGY PHYSICIAN ASSISTANT [facility] M spike 0.6(H) g/dL 03/20/2023 1:19 PM RADIOLOGY PHYSICIAN ASSISTANT [facility] Impression M-spike in gamma fraction. See Isotype. 03/20/2023 1:19 PM RADIOLOGY PHYSICIAN ASSISTANT [facility] Flag, M-protein Isotype Positive(A) Negative 03/21/2023 8:02 AM RADIOLOGY PHYSICIAN ASSISTANT [facility] M-protein Isotype MALDI-TOF MS IgG lambda, monoclonal. 03/21/2023 8:02 AM RADIOLOGY PHYSICIAN ASSISTANT [facility] Comment: ----ADDITIONAL INFORMATION---- The submitted sample was assayed by five separate immunopurifications for IgG, IgA, IgM, kappa and lambda. ??The result reflects the findings of either no monoclonal protein detected or those monoclonal immunoglobulins that were detected. This test was developed and its performance characteristics determined by [facility] in a manner consistent with CLIA requirements. This test has not been cleared or approved by the U.S. Food and Drug Administration. Blood (Blood, Venous) 03/17/2023 9:24 AM RADIOLOGY PHYSICIAN ASSISTANT 03/20/2023 6:44 AM RADIOLOGY PHYSICIAN ASSISTANT Narrative [facility] - 03/21/2023 8:02 AM RADIOLOGY PHYSICIAN ASSISTANT Specimen Information: Specimen ID: [id number] Specimen Type: Blood Specimen Collection Start Date: 03/17/2023 ??9:24 AM Specimen Received Date: 03/20/2023 ??6:44 AM Specimen ID: [id number] Specimen Type: Blood Specimen Collection Start Date: 03/17/2023 ??9:24 AM Specimen Received Date: 03/20/2023 ??6:29 AM Mari Noguera M.D. LAB BLOOD ADD-ON [facility] [address] [place] [address] [facility] [address] [address] [place] [phone] [place] [address] [place] [address] documented in this encounter Visit Diagnoses Diagnosis Multiple Myeloma In Remission (HCC) documented in this encounter Additional Health Concerns Infection Onset Date Last Indicated Resolved Time Protective Environment 06/03/2022 06/03/2022 documented as of this encounter Care Teams Senior Analytic Consultant Relationship Specialty Start Date End Date Elsewhere, Pcp PCP - General Internal Medicine 04/01/22 documented as of this encounter
--- OUTSIDE RECORDS SUMMARY | 2023-03-21 10:30 | XMS_ITS | Referral Summary ---
Author Name Unknown Organization [facility] Address [address] [place] [address] Care Team Providers Care Curriculum Coach Name Role Phone Elsewhere, Pcp Primary Care Provider Unavailabl e Source Comments Patient records contain information from all sites at [facility]. For routine questions regarding patient records, call [phone] during business hours, M-F 8:00 AM - 5:00 PM Central Time. Record requests for emergency care only can be directed to [phone] at any time.[facility] Encounters Date Type Department Care Team Description 03/20/2023 Clinical Communication Division of Hematology in [place], [place] [address] [place] [address] Mari Noguera M.D. 03/17/2023 9:09 AM CONSTRUCTION SECRETARY - 03/17/2023 11:59 PM CONSTRUCTION SECRETARY Hospital Encounter Department of Laboratory Medicine in [address] [address] Mari Noguera M.D. Multiple Myeloma In Remission (HCC) Discharge Disposition: Home or Self Care 03/17/2023 8:40 AM CONSTRUCTION SECRETARY Office Visit Department of Oncology in [address] [address] Mari Noguera M.D. Multiple Myeloma In Remission (HCC) (Primary Dx); Transplant Stem Cell (HCC); Pancytopenia (HCC) 03/17/2023 9:45 AM CONSTRUCTION SECRETARY Infusion Department of Infusion Therapy in [address] [phone] Mari Noguera M.D. Multiple Myeloma Not Having Achieved Remission (HCC) 03/16/2023 10:28 AM CONSTRUCTION SECRETARY - 03/16/2023 11:59 PM CONSTRUCTION SECRETARY Hospital Encounter Department of Laboratory Medicine in [address] [address] Mari Noguera M.D. Multiple Myeloma Not Having Achieved Remission (HCC) Discharge Disposition: Home or Self Care 03/14/2023 Refill Department of Oncology in [address] [phone] Mari Noguera M.D. Med Refill 03/09/2023 Orders Only Department of Oncology in [place], [place] [address] [place] [address] Jake Rosales, PharmAbrahamDAbraham, R.Ph. Multiple Myeloma Not Having Achieved Remission (HCC) 03/09/2023 Orders Only Department of Oncology in [address] [phone] Mari Noguera M.D. 03/08/2023 Clinical Communication Department of Oncology in [address] [phone] Mari Noguera M.D. 03/07/2023 Refill Department of Oncology in [address] [address] Mari Noguera M.D. Med Refill 03/03/2023 Refill Department of Oncology in [address] [phone] Mari Noguera M.D. Med Refill 03/03/2023 3:00 PM CONSTRUCTION SECRETARY Office Visit Department of Oncology in [address] [phone] Mari Noguera M.D. Multiple Myeloma Not Having Achieved Remission (HCC) (Primary Dx); Transplant Stem Cell (HCC); Pancytopenia (HCC) 03/02/2023 10:39 AM CONSTRUCTION SECRETARY - 03/02/2023 11:59 PM CONSTRUCTION SECRETARY Hospital Encounter Department of Laboratory Medicine in [place] [address] [address] [facility] [place] [address] Mari Noguera M.D. Multiple Myeloma Not Having Achieved Remission (HCC) Discharge Disposition: Home or Self Care 02/23/2023 Refill Department of Oncology in [address] [phone] Mari Noguera M.D. Med Refill 02/17/2023 Orders Only Department of Oncology in [address] [phone] Mari Noguera M.D. Multiple Myeloma Not Having Achieved Remission (HCC) (Primary Dx) 02/17/2023 8:23 AM CONSTRUCTION SECRETARY - 02/17/2023 11:59 PM CONSTRUCTION SECRETARY Hospital Encounter Department of Laboratory Medicine in [address] [phone] Mari Noguera M.D. Multiple Myeloma Not Having Achieved Remission (HCC) Discharge Disposition: Home or Self Care 02/17/2023 9:15 AM CONSTRUCTION SECRETARY Infusion Department of Infusion Therapy in [address] [phone] Mari Noguera M.D. Multiple Myeloma Not Having Achieved Remission (HCC) (Primary Dx) 02/14/2023 Clinical Communication Department of Oncology in [address] [phone] Mari Noguera M.D. Medical Certification Form ([employer]) 02/10/2023 9:15 AM CONSTRUCTION SECRETARY Infusion Department of Infusion Therapy in [address] [phone] Mari Noguera M.D. Multiple Myeloma Not Having Achieved Remission (HCC) (Primary Dx) 02/09/2023 2:29 PM CONSTRUCTION SECRETARY - 02/09/2023 11:59 PM CONSTRUCTION SECRETARY Hospital Encounter Department of Laboratory Medicine in [place], [place] [address] [place] [address] Mari Noguera M.D. Multiple Myeloma Not Having Achieved Remission (HCC) Discharge Disposition: Home or Self Care 02/05/2023 Refill [facility] in [place], [place] [address] [place] [address] Jeannie Headley APRN, C.N.P., D.N.P., M.S.N. Med Refill 01/30/2023 1:09 PM CONSTRUCTION SECRETARY - 01/30/2023 11:59 PM CONSTRUCTION SECRETARY Hospital Encounter Department of Laboratory Medicine in [address] [phone] Mari Noguera M.D. Thrombocytopenia (HCC) Discharge Disposition: Home or Self Care 01/30/2023 Orders Only Department of Oncology in [address] [phone] Anna Rosa R.N. Thrombocytopenia (HCC) (Primary Dx) 01/30/2023 Orders Only Department of Oncology in [place], [place] [address] [place] [address] Mari Noguera M.D. 01/30/2023 8:00 AM CONSTRUCTION SECRETARY Infusion Department of Infusion Therapy in [address] [phone] Mari Noguera M.D. Multiple Myeloma Not Having Achieved Remission (HCC) (Primary Dx) 01/27/2023 7:50 AM CONSTRUCTION SECRETARY - 01/27/2023 11:59 PM CONSTRUCTION SECRETARY Hospital Encounter Department of Laboratory Medicine in [address] [phone] Mari Noguera M.D. Multiple Myeloma Not Having Achieved Remission (HCC) Discharge Disposition: Home or Self Care 01/27/2023 8:40 AM CONSTRUCTION SECRETARY Office Visit Department of Oncology in [address] [phone] Mari Noguera M.D. Multiple Myeloma Not Having Achieved Remission (HCC) (Primary Dx); Transplant Stem Cell (HCC); Thrombocytopenia (HCC) 01/25/2023 Orders Only Department of Oncology in [place], [place] [address] [place] [address] Mari Noguera M.D. 01/23/2023 Refill Department of Oncology in [address] [phone] Mari Noguera M.D. Med Refill 01/20/2023 Clinical Communication Department of Oncology in [address] [phone] Mari Noguera M.D. 01/20/2023 Clinical Communication Department of Oncology in [address] [phone] Mari Noguera M.D. Lab Question 01/20/2023 9:50 AM CONSTRUCTION SECRETARY - 01/20/2023 11:59 PM CONSTRUCTION SECRETARY Hospital Encounter Department of Laboratory Medicine in [address] [phone] Mari Noguera M.D. Multiple Myeloma Not Having Achieved Remission (HCC); Diarrhea Discharge Disposition: Home or Self Care 01/20/2023 11:45 AM CONSTRUCTION SECRETARY Infusion Department of Infusion Therapy in [address] [phone] Mari Noguera M.D. Multiple Myeloma Not Having Achieved Remission (HCC) (Primary Dx) 01/18/2023 9:33 AM CONSTRUCTION SECRETARY - 01/18/2023 11:59 PM CONSTRUCTION SECRETARY Hospital Encounter Department of Laboratory Medicine in [address] [phone] Mari Noguera M.D. Discharge Disposition: Home or Self Care 01/18/2023 Orders Only Department of Oncology in [address] [phone] Mari Noguera M.D. Multiple Myeloma Not Having Achieved Remission (HCC) (Primary Dx) 01/13/2023 8:52 AM CONSTRUCTION SECRETARY - 01/13/2023 11:59 PM CONSTRUCTION SECRETARY Hospital Encounter Department of Laboratory Medicine in [address] [phone] Mari Noguera M.D. Multiple Myeloma Not Having Achieved Remission (HCC); Diarrhea Discharge Disposition: Home or Self Care 01/13/2023 8:40 AM CONSTRUCTION SECRETARY Office Visit Department of Oncology in [address] [phone] Mari Noguera M.D. Multiple Myeloma Not Having Achieved Remission (HCC) (Primary Dx); Diarrhea; Transplant Stem Cell (HCC); Thrombocytopenia (HCC) 01/12/2023 9:54 AM CONSTRUCTION SECRETARY - 01/12/2023 11:59 PM CONSTRUCTION SECRETARY Hospital Encounter Department of Laboratory Medicine in [address] [phone] Mari Noguera M.D. Multiple Myeloma Not Having Achieved Remission (HCC) Discharge Disposition: Home or Self Care 01/02/2023 Specialty Pharmacy [facility] [address] [address] Aylin Sahu, Pharm.D., R.Ph. 12/30/2022 9:15 AM CDT Infusion Department of Infusion Therapy in [address] [phone] Mari Noguera M.D. Multiple Myeloma Not Having Achieved Remission (HCC) (Primary Dx); Transplant Stem Cell (HCC); Multiple Myeloma In Remission (HCC) 12/29/2022 1:21 PM CDT - 12/29/2022 11:59 PM CDT Hospital Encounter Department of Laboratory Medicine in [address] [phone] Mari Noguera M.D. Multiple Myeloma Not Having Achieved Remission (HCC) Discharge Disposition: Home or Self Care 12/29/2022 Orders Only Department of Infusion Therapy in [address] [phone] Donita Sandhu R.N. Multiple Myeloma Not Having Achieved Remission (HCC) (Primary Dx) 12/29/2022 9:20 AM CDT - 12/29/2022 1:20 PM CDT Hospital Encounter Department of Laboratory Medicine in [place], [place] [address] [place] [address] Mari Noguera M.D. Multiple Myeloma Not Having Achieved Remission (HCC) Discharge Disposition: Home or Self Care 12/27/2022 Clinical Communication Department of Oncology in [address] [phone] Mari Noguera M.D. Nurse Assessment 12/27/2022 Refill Department of Oncology in [address] [phone] Mari Noguera M.D. Med Refill 12/26/2022 Orders Only Department of Oncology in [address] [phone] Mari Noguera M.D. Multiple Myeloma Not Having Achieved Remission (HCC) 12/24/2022 Orders Only Department of Oncology in [place], [place] [address] [place] [address] Mari Noguera M.D. 12/20/2022 Clinical Communication [facility] [address] [place] [phone] Gregoria May, C.Ph.T. New Med Request 12/20/2022 Clinical Communication [facility] [address] [place] [phone] Katelin Vargas, Pharm.D., R.Ph. [facility] unable to fill generic Revlimid for patient 12/20/2022 Clinical Communication Pharmacy Prior Auth RO [phone] Jovita Espinosa 12/20/2022 Clinical Communication Department of Oncology in [address] [phone] Mari Noguera M.D. Rx Denial (REVLIMID CAPSULE) from Last 3 Months Allergies Active Allergy [...] Blood type / location: ordered for 03/23/22 [place] Infusion dates: Ordered for [place] 03/23/22 Follow up 03-25-22. Feeling much better. [...] 11/18/2021 [facility] - Occupational Stress Questionnaire Answer Date Recorded [...] Comments Blood Pressure 153/62 03/17/2023 8:33 AM CONSTRUCTION SECRETARY Pulse 53 03/17/2023 8:33 AM CONSTRUCTION SECRETARY Temperature 36.6 ??C (97.9 ??F) 03/03/2023 3:23 PM CS T Respiratory Rate 18 02/17/2023 9:10 AM CONSTRUCTION SECRETARY Oxygen Saturation 100% 03/17/2023 8:30 AM CONSTRUCTION SECRETARY room air Inhaled Oxygen Concentration - - Weight 85 kg (187 lb 6.3 oz) 03/17/2023 8:30 AM CONSTRUCTION SECRETARY Height 158.4 cm (5' 2.36) 10/07/2022 11:14 AM C DT Body Mass Index 33.88 10/07/2022 11:14 AM CDT Plan of Treatment Upcoming Encounters Date Type Department Care Team (Late st Contact Info) Description 03/22/2023 7:30 AM CONSTRUCTION SECRETARY Appointment Department of Laboratory Medicine and Pathology, [facility] in [place], [place] [address] [place] [address] Mari Noguera M.D. [address] [place] [phone] 03/22/2023 8:45 AM CONSTRUCTION SECRETARY Hospital Encounter Outpatient Procedure Center in [place], [place] [address] [place] [address] Mari Noguera M.D. [address] [place] [phone] 03/31/2023 10:10 AM CONSTRUCTION SECRETARY Appointment Department of Laboratory Medicine in [address] [phone] Mari Noguera M.D. [address] [place] [phone] 04/04/2023 3:20 PM CONSTRUCTION SECRETARY Office Visit Department of Oncology in [address] [phone] Mari Noguera M.D. [address] [place] [phone] 04/04/2023 3:45 PM CONSTRUCTION SECRETARY Infusion Department of Infusion Therapy in [address] [phone] Mari Noguera M.D. [address] [place] [phone] 04/13/2023 10:10 AM CONSTRUCTION SECRETARY Appointment Department of Laboratory Medicine in [address] [phone] [place] [address] 04/14/2023 9:00 AM CONSTRUCTION SECRETARY Infusion Department of Infusion Therapy in [address] [phone] Mari Noguera M.D. [address] [place] [phone] Procedures Procedure Name Priority Date/Time Associated Diagnosis Comments FOLATE, S Routine 03/17/2023 9:24 AM CONSTRUCTION SECRETARY Multiple Myeloma In Remission (HCC) VITAMIN B12 ASSAY, S Routine 03/17/2023 9:24 AM CONSTRUCTION SECRETARY Multiple Myeloma In Remission (HCC) MONOCLONAL GAMMOPATHY DIAGNOSTIC, S Routine 03/17/2023 9:24 AM CONSTRUCTION SECRETARY Multiple Myeloma In Remission (HCC) CBC WITH DIFFERENTIAL, B Routine 03/16/2023 10:37 AM CONSTRUCTION SECRETARY Multiple Myeloma Not Having Achieved Remission (HCC) IMMUNOGLOBULINS (IGG, IGA, AND IGM), S Routine 03/16/2023 10:37 AM CONSTRUCTION SECRETARY Multiple Myeloma Not Having Achieved Remission (HCC) IMMUNOGLOBULINS (IGG, IGA, AND IGM), S Routine 03/02/2023 10:56 AM CONSTRUCTION SECRETARY Multiple Myeloma Not Having Achieved Remission (HCC) COMPREHENSIVE METABOLIC PANEL, S/P Routine 03/02/2023 10:56 AM CONSTRUCTION SECRETARY Multiple Myeloma Not Having Achieved Remission (HCC) CBC WITH DIFFERENTIAL, B Routine 03/02/2023 10:56 AM CONSTRUCTION SECRETARY Multiple Myeloma Not Having Achieved Remission (HCC) CBC WITH DIFFERENTIAL, B Routine 02/17/2023 8:29 AM CONSTRUCTION SECRETARY Multiple Myeloma Not Having Achieved Remission (HCC) CBC WITH DIFFERENTIAL, B Routine 02/09/2023 2:36 PM CONSTRUCTION SECRETARY Multiple Myeloma Not Having Achieved Remission (HCC) IMMUNOGLOBULINS (IGG, IGA, AND IGM), S Routine 02/09/2023 2:36 PM CONSTRUCTION SECRETARY Multiple Myeloma Not Having Achieved Remission (HCC) CBC WITH DIFFERENTIAL, B Routine 01/30/2023 1:16 PM CONSTRUCTION SECRETARY Thrombocytopenia (HCC) COMPREHENSIVE METABOLIC PANEL, S/P Routine 01/27/2023 8:00 AM CONSTRUCTION SECRETARY Multiple Myeloma Not Having Achieved Remission (HCC) CBC WITH DIFFERENTIAL, B Routine 01/27/2023 8:00 AM CONSTRUCTION SECRETARY Multiple Myeloma Not Having Achieved Remission (HCC) MONOCLONAL GAMMOPATHY DIAGNOSTIC, S Routine 01/20/2023 10:03 AM CONSTRUCTION SECRETARY Multiple Myeloma Not Having Achieved Remission (HCC) Diarrhea COMPREHENSIVE METABOLIC PANEL, S/P Routine 01/20/2023 10:03 AM CONSTRUCTION SECRETARY Multiple Myeloma Not Having Achieved Remission (HCC) CBC WITH DIFFERENTIAL, B Routine 01/20/2023 10:03 AM CONSTRUCTION SECRETARY Multiple Myeloma Not Having Achieved Remission (HCC) GI PATHOGEN PANEL, PCR, F Routine 01/18/2023 3:00 PM CONSTRUCTION SECRETARY Multiple Myeloma Not Having Achieved Remission (HCC) Diarrhea COMPREHENSIVE METABOLIC PANEL, S/P Routine 01/12/2023 10:10 AM CONSTRUCTION SECRETARY Multiple Myeloma Not Having Achieved Remission (HCC) CBC WITH DIFFERENTIAL, B Routine 01/12/2023 10:10 AM CONSTRUCTION SECRETARY Multiple Myeloma Not Having Achieved Remission (HCC) CBC WITH DIFFERENTIAL, B Routine 12/29/2022 1:31 PM CDT Multiple Myeloma Not Having Achieved Remission (HCC) IMMUNOGLOBULINS (IGG, IGA, AND IGM), S Routine 12/29/2022 9:33 AM CDT Multiple Myeloma Not Having Achieved Remission (HCC) from Last 3 Months Results * (ABNORMAL) Monoclonal Gammopathy Diagnostic (03/17/2023 9:24 AM CONSTRUCTION SECRETARY) Only the most recent of2 resultswithin the time period is included. Therapeutic Antibody Administered? Unspecified 03/20/2023 6:29 AM CONSTRUCTION SECRETARY [facility]SC Total Protein, S 6.5 6.3 - 7.9 g/dL 03/20/2023 7:58 AM CONSTRUCTION SECRETARY [facility] [place] Free Light Chain, S 0.9300 0.3300 - 1.94 mg/dL 03/20/2023 12:39 PM CONSTRUCTION SECRETARY [facility] Lambda Free Light Chain, S 1.38 0.5700 - 2.63 mg/dL 03/20/2023 12:40 PM CONSTRUCTION SECRETARY [facility] [place]/Lambda FLC Ratio 0.6739 0.2600 - 1.65 03/20/2023 12:40 PM CONSTRUCTION SECRETARY [facility] Albumin 3.3(L) 3.4 - 4.7 g/dL 03/20/2023 1:19 PM CONSTRUCTION SECRETARY [facility] Alpha-1 Globulin 0.3 0.1 - 0.3 g/dL 03/20/2023 1:19 PM CONSTRUCTION SECRETARY [facility]SC Alpha-2 Globulin 1.0 0.6 - 1.0 g/dL 03/20/2023 1:19 PM CONSTRUCTION SECRETARY [facility] Beta-Globulin 0.9 0.7 - 1.2 g/dL 03/20/2023 1:19 PM CONSTRUCTION SECRETARY [facility] Gamma-Globulin 1.0 0.6 - 1.6 g/dL 03/20/2023 1:19 PM CONSTRUCTION SECRETARY [facility] A/G Ratio 1.01 03/20/2023 1:19 PM CONSTRUCTION SECRETARY SDSC M spike 0.6(H) g/dL 03/20/2023 1:19 PM CONSTRUCTION SECRETARY [facility]SC Impression M-spike in gamma fraction. See Isotype. 03/20/2023 1:19 PM CONSTRUCTION SECRETARY [facility]SC Flag, M-protein Isotype Positive(A) Negative 03/21/2023 8:02 AM CONSTRUCTION SECRETARY SDSC M-protein Isotype MALDI-TOF MS IgG lambda, monoclonal. 03/21/2023 8:02 AM CONSTRUCTION SECRETARY [facility]SC Comment: ----ADDITIONAL INFORMATION---- The submitted sample was assayed by five separate immunopurifications for IgG, IgA, IgM, kappa and lambda. ??The result reflects the findings of either no monoclonal protein detected or those monoclonal immunoglobulins that were detected. This test was developed and its performance characteristics determined by [facility] in a manner consistent with CLIA requirements. This test has not been cleared or approved by the U.S. Food and Drug Administration. Blood (Blood, Venous) 03/17/2023 9:24 AM CONSTRUCTION SECRETARY 03/20/2023 6:44 AM CONSTRUCTION SECRETARY Narrative [facility] - 03/21/2023 8:02 AM CONSTRUCTION SECRETARY Specimen Information: Specimen ID: [id number] Specimen Type: Blood Specimen Collection Start Date: 03/17/2023 ??9:24 AM Specimen Received Date: 03/20/2023 ??6:44 AM Specimen ID: [id number] Specimen Type: Blood Specimen Collection Start Date: 03/17/2023 ??9:24 AM Specimen Received Date: 03/20/2023 ??6:29 AM Mari Noguera M.D. LAB BLOOD ADD-ON [facility] [address] [place] [address] [facility] [address] [place] [address] [place] [address] [place] [address] * Folate (03/17/2023 9:24 AM CONSTRUCTION SECRETARY) [facility] Folate, S 8.0 >=4.0 mcg/L 03/17/2023 3:10 PM CONSTRUCTION SECRETARY ECLR Comment: Biotin has been identified by the suction dredge dumping supervisor as a potential interfering substance. Higher concentrations of biotin may be found in multivitamins, hair/nail supplements, and workout supplements. If the result does not match clinical observations, repeat testing after patient refrains from the use of supplements for at least 12 hours. Blood (Blood, Venous) 03/17/2023 9:24 AM CONSTRUCTION SECRETARY 03/17/2023 2:34 PM CONSTRUCTION SECRETARY Mari Noguera M.D. LAB BLOOD ADD-ON [facility] [address] [place] [phone], [facility] ECLR [facility] in [address] [address] * Vitamin B12 Assay (03/17/2023 9:24 AM CONSTRUCTION SECRETARY) Vitamin B12 Assay, S 1052 232 - 1245 ng/L 03/17/2023 3:10 PM CONSTRUCTION SECRETARY ECLR Comment: Biotin has been identified by the suction dredge dumping supervisor as a potential interfering substance. Higher concentrations of biotin may be found in multivitamins, hair/nail supplements, and workout supplements. If the result does not match clinical observations, repeat testing after patient refrains from the use of supplements for at least 12 hours. Blood (Blood, Venous) 03/17/2023 9:24 AM CONSTRUCTION SECRETARY 03/17/2023 2:34 PM CONSTRUCTION SECRETARY Mari Noguera M.D. LAB BLOOD ADD-ON [facility] [address] [place] [address], [facility] ECLR [facility] in [address] [address] * (ABNORMAL) CBC with Differential, Blood (03/16/2023 10:37 AM CONSTRUCTION SECRETARY) Only the most recent of9 resultswithin the time period is included. Hemoglobin 11.1(L) 11.6 - 15.0 g/dL 03/16/2023 11:04 AM CONSTRUCTION SECRETARY FB60 Hematocrit 35.0(L) 35.5 - 44.9 % 03/16/2023 11:04 AM CONSTRUCTION SECRETARY FB60 Erythrocytes 3.33(L) 3.92 - 5.13 x10(12)/L 03/16/2023 11:04 AM CONSTRUCTION SECRETARY FB60 MCV 105.1(H) 78.2 - 97.9 fL 03/16/2023 11:04 AM CONSTRUCTION SECRETARY FB60 RBC Distrib Width 16.1 12.2 - 16.1 % 03/16/2023 11:04 AM CONSTRUCTION SECRETARY FB60 Platelet Count 63(L) 157 - 371 x10(9)/L 03/16/2023 11:04 AM CONSTRUCTION SECRETARY FB60 Leukocytes 1.9(L) 3.4 - 9.6 x10(9)/L 03/16/2023 11:04 AM CONSTRUCTION SECRETARY FB60 Neutrophils 0.80(L) 1.56 - 6.45 x10(9)/L 03/16/2023 11:04 AM CONSTRUCTION SECRETARY FB60 Lymphocytes 0.87(L) 0.95 - 3.07 x10(9)/L 03/16/2023 11:04 AM CONSTRUCTION SECRETARY FB60 Monocytes 0.22(L) 0.26 - 0.81 x10(9)/L 03/16/2023 11:04 AM CONSTRUCTION SECRETARY FB60 Eosinophils 0.04 0.03 - 0.48 x10(9)/L 03/16/2023 11:04 AM CONSTRUCTION SECRETARY FB60 Basophils <0.04 0.01 - 0.08 x10(9)/L 03/16/2023 11:04 AM CONSTRUCTION SECRETARY FB60 Blood (Blood, Venous) 03/16/2023 10:37 AM CONSTRUCTION SECRETARY 03/16/2023 10:37 AM CONSTRUCTION SECRETARY Mari Noguera M.D. LAB BLOOD ADD-ON Performing Organization Address City/State/[facility] Co de Phone Number [facility] [address] [place] [address], [facility] FB60 [facility] in [place] [address] [place] [address] * (ABNORMAL) Immunoglobulins (IgG, IgA, and IgM) (03/16/2023 10:37 AM CONSTRUCTION SECRETARY) Only the most recent of4 resultswithin the time period is included. Immunoglobulin A (IgA), S 35(L) 61 - 356 mg/dL 03/17/2023 8:23 AM CONSTRUCTION SECRETARY [facility]SC Immunoglobulin M (IgM), S 12(L) 37 - 286 mg/dL 03/17/2023 9:41 AM CONSTRUCTION SECRETARY SDSC Immunoglobulin G (IgG), S 1010 767 - 1590 mg/dL 03/17/2023 8:23 AM CONSTRUCTION SECRETARY [facility] Blood (Blood, Venous) 03/16/2023 10:37 AM CONSTRUCTION SECRETARY 03/17/2023 6:15 AM CONSTRUCTION SECRETARY Mari Noguera M.D. LAB BLOOD ADD-ON [facility] [address] [place] [address] [facility] [address] [place] [address] * (ABNORMAL) Comprehensive Metabolic Panel (03/02/2023 10:56 AM CONSTRUCTION SECRETARY) Only the most recent of4 resultswithin the time period is included. Potassium, P 3.7 3.6 - 5.2 mmol/L 03/02/2023 1:54 PM CONSTRUCTION SECRETARY OWAT Sodium, P 141 135 - 145 mmol/L 03/02/2023 1:54 PM CONSTRUCTION SECRETARY OWAT Chloride, P 100 98 - 107 mmol/L 03/02/2023 1:54 PM CONSTRUCTION SECRETARY OWAT Bicarbonate, P 27 22 - 29 mmol/L 03/02/2023 1:54 PM CONSTRUCTION SECRETARY OWAT Anion Gap, P 14 7 - 15 03/02/2023 1:54 PM CONSTRUCTION SECRETARY OWAT BUN (Blood Urea Nitrogen), P 36(H) 6 - 21 mg/dL 03/02/2023 1:54 PM CONSTRUCTION SECRETARY OWAT Creatinine 1.53(H) 0.59 - 1.04 mg/dL 03/02/2023 1:54 PM CONSTRUCTION SECRETARY OWAT Estimated GFR (eGFR) 35(L) >=60 mL/min/BS A 03/02/2023 1:54 PM CONSTRUCTION SECRETARY OWAT Comment: Estimated GFR calculated using the 2020 CKD_EPI creatinine equation. Calcium, Total, P 9.8 8.8 - 10.2 mg/dL 03/02/2023 1:54 PM CONSTRUCTION SECRETARY OWAT Glucose, P 163(H) 70 - 140 mg/dL 03/02/2023 1:54 PM CONSTRUCTION SECRETARY OWAT Protein, Total, P 7.1 6.3 - 7.9 g/dL 03/02/2023 1:54 PM CONSTRUCTION SECRETARY OWAT Albumin, P 4.4 3.5 - 5.0 g/dL 03/02/2023 1:54 PM CONSTRUCTION SECRETARY OWAT Aspartate Aminotransferase (AST), P 30 8 - 43 U/L 03/02/2023 1:54 PM CONSTRUCTION SECRETARY OWAT Alkaline Phosphatase, P 65 35 - 104 U/L 03/02/2023 1:54 PM CONSTRUCTION SECRETARY OWAT Alanine Aminotransferase (ALT), P 31 7 - 45 U/L 03/02/2023 1:54 PM CONSTRUCTION SECRETARY OWAT Bilirubin, Total, P 0.3 0.0 - 1.2 mg/dL 03/02/2023 1:54 PM CONSTRUCTION SECRETARY OWAT Blood (Blood, Venous) 03/02/2023 10:56 AM CONSTRUCTION SECRETARY 03/02/2023 1:14 PM CONSTRUCTION SECRETARY Mari Noguera M.D. LAB BLOOD ADD-ON [facility] [address] [address], [facility] in [place] [address] [place] [address] * GI Pathogen Panel, PCR, Feces (01/18/2023 3:00 PM CONSTRUCTION SECRETARY) Specimen Source STOOL 1:03 PM CONSTRUCTION SECRETARY [facility] Campylobacter species Negative Negative 01/20/2023 1:03 PM CONSTRUCTION SECRETARY [facility] C. difficile toxin Negative Negative 2022 1:03 PM CONSTRUCTION SECRETARY [facility] Plesiomonas shigelloides Negative Negative 01/20/2023 1:03 PM CONSTRUCTION SECRETARY [facility] Salmonella species Negative Negative 2022 1:03 PM CONSTRUCTION SECRETARY [facility] Vibrio species Negative Negative 01/20/2023 1:03 PM CONSTRUCTION SECRETARY [facility] Vibrio cholerae Negative Negative 1:03 PM CONSTRUCTION SECRETARY [facility] Yersinia species Negative Negative 01/21/20 1:03 PM CONSTRUCTION SECRETARY [facility] Enteroaggregative E. coli (EAEC) Negative Negative 01/20/2023 1:03 PM CONSTRUCTION SECRETARY [facility] Enteropathogenic E. coli (EPEC) Negative Negative 01/20/2023 1:03 PM CONSTRUCTION SECRETARY [facility] Enterotoxigenic E. coli (ETEC) Negative Negative 01/20/2023 1:03 PM CONSTRUCTION SECRETARY [facility] Shiga toxin producing E. coli Negative Negative 01/20/2023 1:03 PM CONSTRUCTION SECRETARY [facility] Shigella/Enteroinvas carlos E. coli Negative Negative 01/20/2023 1:03 PM CONSTRUCTION SECRETARY [facility] Cryptosporidium species Negative Negative 01/20/2023 1:03 PM CONSTRUCTION SECRETARY [facility] Cyclospora cayetanensis Negative Negative 01/20/2023 1:03 PM CONSTRUCTION SECRETARY [facility] Entamoeba histolytica Negative Negative 01/20/2023 1:03 PM CONSTRUCTION SECRETARY [facility] Giardia Negative Negative 01/20/2023 1:03 PM CONSTRUCTION SECRETARY [facility] Adenovirus F40/41 Negative Negative 023 1:03 PM CONSTRUCTION SECRETARY [facility] Astrovirus Negative Negative 01/20/2023 1:03 PM CONSTRUCTION SECRETARY [facility] Norovirus GI/GII Negative Negative 01/21/20 1:03 PM CONSTRUCTION SECRETARY [facility] Rotavirus Ag, F Negative Negative 1:03 PM CONSTRUCTION SECRETARY [facility] Sapovirus Negative Negative 01/20/2023 1:03 PM CONSTRUCTION SECRETARY [facility] Comment: ----ADDITIONAL INFORMATION---- This assay is performed using the FDA-cleared [employer] GI Panel ([employer] Stool (Stool) 01/18/2023 3:0 0 PM CONSTRUCTION SECRETARY 01/20/2023 9:53 AM CONSTRUCTION SECRETARY Mari Noguera M.D. LAB MICROBIOLOGY - G ENERAL ORDERABLES [facility] [address] [place] [address], [facility] [address] [place] [address] from Last 3 Months Additional Health Concerns Infection Onset Date Last Indicated Protective Environment 06/03/2022 3 Advance Directives For more information, please contact: [phone] Latest Code Status on File Code Status Date Activated Date Inactivated Comments Full Code 12/07/2021 2:52 PM 12/15/2021 4:48 PM Question Answer Comments Full Code: Discussed Care Teams Curriculum Coach Relationship Specialty Start Date End Date Elsewhere, Pcp PCP - General Internal Medicine 04/01/22
--- OUTSIDE RECORDS SUMMARY | 2023-03-21 10:31 | XMS_ITS | Encounter Summary ---
Author Name Unknown Organization [facility] Address [address] [place] [address] Care Team Providers Care Patient Transporter Name Role Phone Elsewhere, Pcp Primary Care Provider Unavailabl e Reason for Visit * Episode Based Medications (Routine) - Authorized Specialty Diagnoses / Procedures Referred By Guillermina t Referred To Contact Diagnoses Multiple Myeloma Not Having Achieved Remission (HCC) Procedures OK ONDANSETRON HCL INJECTION OK DARATUMUMAB, HYALURONIDASE OK BORTEZOMIB INJECTION 1,800 mg on Day 1, 8, 15, 22 for cycles 1 & 2, Day 1, 15 3-6, Day 1 for cycle 7 / 28 day cycles / 17 total visits Mari Noguera M.D. [address] [place] [phone] [facility] Region Referral ID Status Reason Start Date Expiration Date V isits Requested Visits Authorized [id number] Authorized 05/28/2021 02/27/2024 31 31 Encounter Details Date Type Department Care Team (Late st Contact Info) Description 03/17/2023 9:45 AM ACUTE CARE REGISTERED NURSE Infusion Department of Infusion Therapy in [address] [phone] Mari Noguera M.D. [address] [place] [phone] Multiple Myeloma Not Having Achieved Remission (HCC) [...] How often do you attend [facility] or christianity services? 1 to 4 times [...] Answer Date Recorded PHQ-2 Score 4 11/18/2021 [facility] [place] of Occupat ional [facility] - Occupational Stress Questionnaire Answer [...] st Contact Info) Description 03/22/2023 7:30 AM ACUTE CARE REGISTERED NURSE Appointment Department of Laboratory Medicine and Pathology, [facility] in [place], [place] [address] [place] [address] Mari Noguera M.D. [address] [place] [phone] 03/22/2023 8:45 AM ACUTE CARE REGISTERED NURSE Hospital Encounter Outpatient Procedure Center in [place], [place] [address] [place] [address] Mari Noguera M.D. [address] [place] [phone] 03/31/2023 10:10 AM ACUTE CARE REGISTERED NURSE Appointment Department of Laboratory Medicine in [address] [phone] Mari Noguera M.D. [address] [place] [phone] 04/04/2023 3:20 PM ACUTE CARE REGISTERED NURSE Office Visit Department of Oncology in [address] [phone] Mari Noguera M.D. [address] [place] [phone] 04/04/2023 3:45 PM ACUTE CARE REGISTERED NURSE Infusion Department of Infusion Therapy in [address] [phone] Mari Noguera M.D. [address] [place] [phone] 04/13/2023 10:10 AM ACUTE CARE REGISTERED NURSE Appointment Department of Laboratory Medicine in [place] [address] [place] [address] Mari Noguera M.D. [address] [place] [phone] 04/14/2023 9:00 AM ACUTE CARE REGISTERED NURSE Infusion Department of Infusion Therapy in [place], [place] [address] [place] [address] [phone] Mari Noguera M.D. [address] [place] [phone] documented as of this encounter Visit Diagnoses Diagnosis Multiple Myeloma Not Having Achieved Remission (HCC) documented in this encounter Additional Health Concerns Infection Onset Date Last Indicated Resolved Time Protective Environment 06/03/2022 06/03/2022 documented as of this encounter Care Teams Patient Transporter Relationship Specialty Start Date End Date Elsewhere, Pcp PCP - General Internal Medicine 04/01/22 documented as of this encounter
--- OUTSIDE RECORDS SUMMARY | 2023-03-21 10:31 | XMS_ITS | Encounter Summary ---
Author Name Unknown Organization [facility] Address [address] [place] [address] Care Team Providers Care Customer Quality Specialist Name Role Phone Elsewhere, Pcp Primary Care Provider Unavailabl e Encounter Details Date Type Department Care Team (Late st Contact Info) Description 03/08/2023 Clinical Communication Department of Oncology in [place], [place] [address] [place] [phone] Mari Noguera M.D. [address] [place] [phone] Social History Tobacco Use Types [...] often do you attend chur ch or anglican services? 1 to 4 times [...] st Contact Info) Description 03/22/2023 7:30 AM AGRISCIENCE TECHNOLOGY INSTRUCTOR Appointment Department of Laboratory Medicine and Pathology, [facility], in [place], [place] [address] [place] [address] Mari Noguera M.D. [address] [place] [phone] 03/22/2023 8:45 AM AGRISCIENCE TECHNOLOGY INSTRUCTOR Hospital Encounter Outpatient Procedure Center in [place], [place] [address] [place] [address] Mari Noguera M.D. [address] [place] [phone] 03/31/2023 10:10 AM AGRISCIENCE TECHNOLOGY INSTRUCTOR Appointment Department of Laboratory Medicine in [address] [phone] Mari Noguera M.D. [address] [place] [phone] 04/04/2023 3:20 PM AGRISCIENCE TECHNOLOGY INSTRUCTOR Office Visit Department of Oncology in [address] [phone] Mari Noguera M.D. [address] [place] [phone] 04/04/2023 3:45 PM AGRISCIENCE TECHNOLOGY INSTRUCTOR Infusion Department of Infusion Therapy in [address] [phone] Mari Noguera M.D. [address] [place] [phone] 04/13/2023 10:10 AM AGRISCIENCE TECHNOLOGY INSTRUCTOR Appointment Department of Laboratory Medicine in [address] [phone] Mari Noguera M.D. [address] [place] [phone] 04/14/2023 9:00 AM AGRISCIENCE TECHNOLOGY INSTRUCTOR Infusion Department of Infusion Therapy in [address] [phone] Mari Noguera M.D. [facility] [place] [phone] documented as of this encounter Visit Diagnoses Not on filedocumented in this encounter Additional Health Concerns Infection Onset Date Last Indicated Resolved Time Protective Environment 06/03/2022 06/03/2022 documented as of this encounter Care Teams Customer Quality Specialist Relationship Specialty Start Date End Date Elsewhere, Pcp PCP - General Internal Medicine 04/01/22 documented as of this encounter
--- OUTSIDE RECORDS SUMMARY | 2023-03-21 10:31 | XMS_ITS | Encounter Summary ---
Author Name Unknown Organization [facility] Address [address] [place] [address] Care Team Providers Care Car Hop Name Role Phone Elsewhere, Pcp Primary Care Provider Unavailabl e Reason for Visit * Reason Comments Med Refill Encounter Details Date Type Department Care Team (Late st Contact Info) Description 02/23/2023 Refill Department of Oncology in [place], [place] [address] [place] [phone] Mari Noguera M.D. [address] [place] [phone] Med Refill Social History Tobacco [...] do you attend [facility] or yarsanism services? 1 to 4 times [...] 4 11/18/2021 [facility] of Occupat ionla Health - Occupational Stress Questionnaire Answer Date [...] st Contact Info) Description 03/22/2023 7:30 AM DYEHOUSE WORKER Appointment Department of Laboratory Medicine and Pathology, [facility], in [place], [place] [address] [place] [address] Mari Noguera M.D. [address] [place] [phone] 03/22/2023 8:45 AM DYEHOUSE WORKER Hospital Encounter Outpatient Procedure Center in [place], [place] [address] [place] [address] Mari Noguera M.D. [facility] [place] [phone] 03/31/2023 10:10 AM DYEHOUSE WORKER Appointment Department of Laboratory Medicine in [address] [place] [address] Mari Noguera M.D. [address] [place] [phone] 04/04/2023 3:20 PM DYEHOUSE WORKER Office Visit Department of Oncology in [address] [phone] Mari Noguera M.D. [address] [place] [phone] 04/04/2023 3:45 PM DYEHOUSE WORKER Infusion Department of Infusion Therapy in [address] [phone] Mari Noguera M.D. [address] [place] [phone] 04/13/2023 10:10 AM DYEHOUSE WORKER Appointment Department of Laboratory Medicine in [address] [phone] Mari Noguera M.D. [facility] [place] [phone] 04/14/2023 9:00 AM DYEHOUSE WORKER Infusion Department of Infusion Therapy in [address] [phone] Mari Noguera M.D. [address] [place] [phone] documented as of this encounter Visit Diagnoses Diagnosis Multiple Myeloma Not Having Achieved Remission (HCC) documented in this encounter Additional Health Concerns Infection Onset Date Last Indicated Resolved Time Protective Environment 06/03/2022 06/03/2022 documented as of this encounter Care Teams Car Hop Relationship Specialty Start Date End Date Elsewhere, Pcp PCP - General Internal Medicine 04/01/22 documented as of this encounter
--- OUTSIDE RECORDS SUMMARY | 2023-03-21 10:31 | XMS_ITS | Encounter Summary ---
Author Name Unknown Organization [facility] Address [address] [place] [address] Care Team Providers Care Employee Training Specialist Name Role Phone Elsewhere, Pcp Primary Care Provider Unavailabl e Reason for Visit * Reason Comments Med Refill Encounter Details Date Type Department Care Team (Late st Contact Info) Description 03/03/2023 Refill Department of Oncology in [place], [place] [address] [place] [phone] Mari Noguera M.D. [address] [place] [phone] Med Refill Social History Tobacco [...] do you attend [facility] or cheondoism services? 1 to 4 times [...] 11/18/2021 [facility] of Occupat ionky Health - Occupational Stress Questionnaire Answer [...] st Contact Info) Description 03/22/2023 7:30 AM WINDING INSPECTOR AND TESTER Appointment Department of Laboratory Medicine and Pathology, [facility], in [place], [place] [address] [place] [address] Mari Noguera M.D. [address] [place] [phone] 03/22/2023 8:45 AM WINDING INSPECTOR AND TESTER Hospital Encounter Outpatient Procedure Center in [place], [place] [address] [place] [address] Mari Noguera M.D. [facility] [place] [phone] 03/31/2023 10:10 AM WINDING INSPECTOR AND TESTER Appointment Department of Laboratory Medicine in [address] [place] [address] Mari Noguera M.D. [address] [place] [phone] 04/04/2023 3:20 PM WINDING INSPECTOR AND TESTER Office Visit Department of Oncology in [address] [phone] Mari Noguera M.D. [address] [place] [phone] 04/04/2023 3:45 PM WINDING INSPECTOR AND TESTER Infusion Department of Infusion Therapy in [address] [phone] Mari Noguera M.D. [address] [place] [phone] 04/13/2023 10:10 AM WINDING INSPECTOR AND TESTER Appointment Department of Laboratory Medicine in [address] [phone] Mari Noguera M.D. [facility] [place] [phone] 04/14/2023 9:00 AM WINDING INSPECTOR AND TESTER Infusion Department of Infusion Therapy in [address] [phone] Mari Noguera M.D. [address] [place] [phone] documented as of this encounter Visit Diagnoses Diagnosis Multiple Myeloma Not Having Achieved Remission (HCC) documented in this encounter Additional Health Concerns Infection Onset Date Last Indicated Resolved Time Protective Environment 06/03/2022 06/03/2022 documented as of this encounter Care Teams Employee Training Specialist Relationship Specialty Start Date End Date Elsewhere, Pcp PCP - General Internal Medicine 04/01/22 documented as of this encounter
--- OUTSIDE RECORDS SUMMARY | 2023-03-21 10:31 | XMS_ITS | Encounter Summary ---
Author Name Unknown Organization [facility] Address [address] [place] [address] Care Team Providers Care Assisted Living Care Manager Name Role Phone Elsewhere, Pcp Primary Care Provider Unavailabl e Reason for Referral * Outpatient (Routine) - Authorized Specialty Diagnoses / Procedures Referred By Guillermina zamora Referred To Contact Diagnoses Multiple Myeloma In Remission (HCC) Transplant Stem Cell (HCC) Pancytopenia (HCC) Procedures Biopsy Bone Marrow, Sedated Mari Noguera M.D. [address] [place] [address] [facility] Referral ID Status Reason Start Date Expiration Date V isits Requested Visits Authorized [id number] Authorized 03/17/2023 03/16/2024 1 1 CIPAL ACCOUNT CLERK Reason for Visit * Reason Comments Follow-up * Outpatient (Routine) - Closed Specialty Diagnoses / Procedures Referred By Guillermina zamora Referred To Contact Hematology Oncology Mari Noguera M.D. [address] [place] [address] [facility] Referral ID Status Reason Start Date Expiration Date Visits Re quested Visits Authorized [id number] Closed 03/03/2023 03/02/2026 1 1 Encounter Details Date Type Department Care Team (Late st Contact Info) Description 03/17/2023 8:40 AM PRINCIPAL ACCOUNT CLERK Office Visit Department of Oncology in [place], [place] [address] [place] [address] Mari Noguera M.D. [address] [place] [address] Multiple Myeloma In Remission (HCC) (Primary Dx); Transplant Stem Cell (HCC); Pancytopenia (HCC) Social History Tobacco Use Types Packs/Day [...] How often do you attend chur or oriental orthodox services? 1 to 4 times per [...] Answer Date Recorded PHQ-2 Score 4 11/18/2021 [facility] [place] of Occupat ional Health - Occupational Stress [...] Comments Blood Pressure 153/62 03/17/2023 8:33 AM PRINCIPAL ACCOUNT CLERK Pulse 53 03/17/2023 8:33 AM PRINCIPAL ACCOUNT CLERK Temperature - - Respiratory Rate - - Oxygen Saturation 100% 03/17/2023 8:30 AM PRINCIPAL ACCOUNT CLERK room air Inhaled Oxygen Concentration - - Weight 85 kg (187 lb 6.3 oz) 03/17/2023 8:30 AM PRINCIPAL ACCOUNT CLERK Height - - Body Mass Index 33.88 10/07/2022 11:14 AM CDT documented in this encounter Progress Notes * Mari Noguera M.D. - 03/17/2023 8:40 AM CST SUBJECTIVE PRIMARY CARE PHYSICIAN [...] chains: kappa: 8.01 mg/L; lambda: 33.64 mg/L; [place]:Lambda Ratio: 0.24 SPEP: M-spike: 3.26 g/dL Immunofixation: [...] Revlimid/Velcade in the post ASCT setting. She has had issues with cytopenias requiring multiple treatment delays and 25 % dose reduction of Velcade. She has been off Revlimid and Velcade for 2 weeks. Overall continues to feel well. ECOG performance status of 1. She has not had any intercurrent infections. No epistaxis or gum bleeding, no easy bruising. She continues with aspirin 325 mg daily. REVIEW OF SYSTEMS Respiratory: Positive for coughing [...] VGPR post ASCT day 0 12/02/2021 ([facility]) #2 Post autologous stem cell transplant #3 Pancytopenia Ms. Treadwell is receiving maintenance therapy with every other week bortezomib and lenalidomide 10 mg21 of 28 days. She has had issues with cytopenias requiring multiple treatment delays and 25 % dosereduction of Velcade. She has been off Revlimid and Velcade for 2 weeks with slight recovery of platelets which are 63 today, however she has had a progressive decline in ANC from 1300 now 800 with no associated fever or infection. We will update B12/folate/methylmalonic acid, she continues with oral B12 supplementation. Given progressive cytopenias despite dose reductions and dose delays, and given history of ASCT, will proceed with bone marrow biopsy for further evaluation. She will follow upwith me 1 week post biopsy to review results. Total time 30 minutes Mari Noguera M.D. CIPAL ACCOUNT CLERK documented in this encounter Plan of Treatment Upcoming Encounters Date Type Department Care Team (Late st Contact Info) Description 03/22/2023 7:30 AM PRINCIPAL ACCOUNT CLERK Appointment Department of Laboratory Medicine and Pathology, [facility], in [place], [place] [address] [place] [address] Mari Noguera M.D. [address] [place] [phone] 03/22/2023 8:45 AM PRINCIPAL ACCOUNT CLERK Hospital Encounter Outpatient Procedure Center in [place], [place] [address] [place] [address] Mari Noguera M.D. [address] [place] [phone] 03/31/2023 10:10 AM PRINCIPAL ACCOUNT CLERK Appointment Department of Laboratory Medicine in [address] [place] [address] Mari Noguera M.D. [address] [place] [phone] 04/04/2023 3:20 PM PRINCIPAL ACCOUNT CLERK Office Visit Department of Oncology in [address] [address] Mari Noguera M.D. [address] [place] [phone] 04/04/2023 3:45 PM PRINCIPAL ACCOUNT CLERK Infusion Department of Infusion Therapy in [address] [address] Mari Noguera M.D. [address] [place] [phone] 04/13/2023 10:10 AM PRINCIPAL ACCOUNT CLERK Appointment Department of Laboratory Medicine in [address] [place] [address] Mari Noguera M.D. [address] [place] [phone] 04/14/2023 9:00 AM PRINCIPAL ACCOUNT CLERK Infusion Department of Infusion Therapy in [address] [phone] Mari Noguera M.D. [address] [place] [phone] Pending Results Name Type Priority Associated Diagnoses Date /Time Methylmalonic Acid (MMA), Quantitative Lab Routine Multiple Myeloma In Remission (HCC) 03/17/2023 9:24 AM PRINCIPAL ACCOUNT CLERK Scheduled Orders Name Type Priority Associated Diagnoses Orde r Schedule Methylmalonic Acid (MMA), Quantitative Lab Routine Multiple Myeloma In Remission (HCC) Expected: 03/17/2023, Expires: 03/17/2024 Biopsy Bone Marrow, Sedated Procedures Routine Multiple Myeloma In Remission (HCC) Transplant Stem Cell (HCC) Pancytopenia (HCC) Expected: 03/21/2023, Expires: 06/15/2024 CBC with Differential, Blood Lab Routine Multiple Myeloma In Remission (HCC) Transplant Stem Cell (HCC) Pancytopenia (HCC) Expected: 03/17/2023 (Approximate), Expires: 06/15/2024 documented as of this encounter Results * Folate (03/17/2023 9:24 AM PRINCIPAL ACCOUNT CLERK) Folate, S 8.0 >=4.0 mcg/L 03/17/2023 3:10 PM PRINCIPAL ACCOUNT CLERK ECLR Comment: Biotin has been identified by the environmental field services technician as a potential interfering substance. Higher concentrations of biotin may be found in multivitamins, hair/nail supplements, and workout supplements. If the result does not match clinical observations, repeat testing after patient refrains from the use of supplements for at least 12 hours. Blood (Blood, Venous) 03/17/2023 9:24 AM PRINCIPAL ACCOUNT CLERK 03/17/2023 2:34 PM PRINCIPAL ACCOUNT CLERK Mari Noguera M.D. LAB BLOOD ADD-ON [facility] [address] [place] [address], [facility] ECLR [facility] in [address] [address] * Vitamin B12 Assay (03/17/2023 9:24 AM PRINCIPAL ACCOUNT CLERK) Vitamin B12 Assay, S 1052 232 - 1245 ng/L 03/17/2023 3:10 PM PRINCIPAL ACCOUNT CLERK ECLR Comment: Biotin has been identified by the environmental field services technician as a potential interfering substance. Higher concentrations of biotin may be found in multivitamins, hair/nail supplements, and workout supplements. If the result does not match clinical observations, repeat testing after patient refrains from the use of supplements for at least 12 hours. Blood (Blood, Venous) 03/17/2023 9:24 AM PRINCIPAL ACCOUNT CLERK 03/17/2023 2:34 PM PRINCIPAL ACCOUNT CLERK Mari Noguera M.D. LAB BLOOD ADD-ON [facility] [address] [place] [phone], [facility] ECLR [facility] in [address] [address] * (ABNORMAL) Monoclonal Gammopathy Diagnostic (03/17/2023 9:24 AM PRINCIPAL ACCOUNT CLERK) Therapeutic Antibody Administered? Unspecified 03/20/2023 6:29 AM PRINCIPAL ACCOUNT CLERK [facility] Total Protein, S 6.5 6.3 - 7.9 g/dL 03/20/2023 7:58 AM PRINCIPAL ACCOUNT CLERK [facility] [place] Free Light Chain, S 0.9300 0.3300 - 1.94 mg/dL 03/20/2023 12:39 PM PRINCIPAL ACCOUNT CLERK [facility] Lambda Free Light Chain, S 1.38 0.5700 - 2.63 mg/dL 03/20/2023 12:40 PM PRINCIPAL ACCOUNT CLERK [facility] [place]/Lambda FLC Ratio 0.6739 0.2600 - 1.65 03/20/2023 12:40 PM PRINCIPAL ACCOUNT CLERK [facility] Albumin 3.3(L) 3.4 - 4.7 g/dL 03/20/2023 1:19 PM PRINCIPAL ACCOUNT CLERK [facility] Alpha-1 Globulin 0.3 0.1 - 0.3 g/dL 03/20/2023 1:19 PM PRINCIPAL ACCOUNT CLERK [facility] Alpha-2 Globulin 1.0 0.6 - 1.0 g/dL 03/20/2023 1:19 PM PRINCIPAL ACCOUNT CLERK [facility] Beta-Globulin 0.9 0.7 - 1.2 g/dL 03/20/2023 1:19 PM PRINCIPAL ACCOUNT CLERK [facility] Gamma-Globulin 1.0 0.6 - 1.6 g/dL 03/20/2023 1:19 PM PRINCIPAL ACCOUNT CLERK [facility] A/G Ratio 1.01 03/20/2023 1:19 PM PRINCIPAL ACCOUNT CLERK [facility] M spike 0.6(H) g/dL 03/20/2023 1:19 PM PRINCIPAL ACCOUNT CLERK [facility] Impression M-spike in gamma fraction. See Isotype. 03/20/2023 1:19 PM PRINCIPAL ACCOUNT CLERK [facility] Flag, M-protein Isotype Positive(A) Negative 03/21/2023 8:02 AM [facility] M-protein Isotype MALDI-TOF MS IgG lambda, monoclonal. 03/21/2023 8:02 AM [facility] Comment: ----ADDITIONAL INFORMATION---- The submitted sample was assayed by five separate immunopurifications for IgG, IgA, IgM, kappa and lambda. ??The result reflects the findings of either no monoclonal protein detected or those monoclonal immunoglobulins that were detected. This test was developed and its performance characteristics determined by [facility] in a manner consistent with CLIA requirements. This test has not been cleared or approved by the U.S. Food and Drug Administration. Blood (Blood, Venous) 03/17/2023 9:24 AM PRINCIPAL ACCOUNT CLERK 03/20/2023 6:44 AM PRINCIPAL ACCOUNT CLERK Narrative [facility] - 03/21/2023 8:02 AM PRINCIPAL ACCOUNT CLERK Specimen Information: Specimen ID: [id number] Specimen Type: Blood Specimen Collection Start Date: 03/17/2023 ??9:24 AM Specimen Received Date: 03/20/2023 ??6:44 AM Specimen ID: [id number] Specimen Type: Blood Specimen Collection Start Date: 03/17/2023 ??9:24 AM Specimen Received Date: 03/20/2023 ??6:29 AM Mari Noguera M.D. LAB BLOOD ADD-ON [facility] [address] [place] [address] [facility] [address] [place] [address] [facility] [address] [place] [address] [place] [address] documented in this encounter Visit Diagnoses Diagnosis Multiple Myeloma In Remission (HCC)- Primary Transplant Stem Cell (HCC) Pancytopenia (HCC) Multiple Myeloma In Remission (HCC) documented in this encounter Additional Health Concerns Infection Onset Date Last Indicated Resolved Time Protective Environment 06/03/2022 06/03/2022 documented as of this encounter Care Teams Assisted Living Care Manager Relationship Specialty Start Date End Date Elsewhere, Pcp PCP - General Internal Medicine 04/01/22 documented as of this encounter
--- OUTSIDE RECORDS SUMMARY | 2023-03-21 10:31 | XMS_ITS | Encounter Summary ---
Author Name Unknown Organization [facility] Address [address] [place] [address] Care Team Providers Care Service Trainer Name Role Phone Elsewhere, Pcp Primary Care Provider Unavailabl e Encounter Details Date Type Department Care Team (Late st Contact Info) Description 03/09/2023 Orders Only Department of Oncology in [place], [place] [address] [place] [phone] Mari Noguera M.D. [address] [place] [address] Social History Tobacco Use Types [...] st Contact Info) Description 03/22/2023 7:30 AM VETERINARY LIVESTOCK INSPECTOR Appointment Department of Laboratory Medicine and Pathology, [facility], in [place], [place] [address] [place] [address] Mari Noguera M.D. [address] [place] [phone] 03/22/2023 8:45 AM VETERINARY LIVESTOCK INSPECTOR Hospital Encounter Outpatient Procedure Center in [place], [place] [address] [place] [address] Mari Noguera M.D. [address] [place] [phone] 03/31/2023 10:10 AM VETERINARY LIVESTOCK INSPECTOR Appointment Department of Laboratory Medicine in [address] [address] Mari Noguera M.D. [address] [place] [phone] 04/04/2023 3:20 PM VETERINARY LIVESTOCK INSPECTOR Office Visit Department of Oncology in [address] [phone] Mari Noguera M.D. [address] [place] [phone] 04/04/2023 3:45 PM VETERINARY LIVESTOCK INSPECTOR Infusion Department of Infusion Therapy in [address] [phone] Mari Noguera M.D. [address] [place] [phone] 04/13/2023 10:10 AM VETERINARY LIVESTOCK INSPECTOR Appointment Department of Laboratory Medicine in [address] [address] Mari Noguera M.D. [address] [place] [phone] 04/14/2023 9:00 AM VETERINARY LIVESTOCK INSPECTOR Infusion Department of Infusion Therapy in [address] [phone] Mari Noguera M.D. [facility] [place] [phone] documented as of this encounter Visit Diagnoses Not on filedocumented in this encounter Additional Health Concerns Infection Onset Date Last Indicated Resolved Time Protective Environment 06/03/2022 06/03/2022 documented as of this encounter Care Teams Service Trainer Relationship Specialty Start Date End Date Elsewhere, Pcp PCP - General Internal Medicine 04/01/22 documented as of this encounter
--- OUTSIDE RECORDS SUMMARY | 2023-03-21 10:31 | XMS_ITS | Encounter Summary ---
Author Name Unknown Organization [facility] Address [address] [place] [address] Care Team Providers Care Moth Exterminator Name Role Phone Elsewhere, Pcp Primary Care Provider Unavailabl e Reason for Visit * Reason Comments Med Refill Encounter Details Date Type Department Care Team (Late st Contact Info) Description 03/07/2023 Refill Department of Oncology in [place], [place] [address] [place] [phone] Mari Noguera M.D. [address] [place] [phone] Med Refill Social History Tobacco [...] week 06/11/2021 How often do you attend [facility] or oriental orthodox services? 1 to 4 times per year 06/11/2021 Do you belong to any clubs o r organizations such as catholic groups, unions, fraternal or athletic groups, [...] [facility] of Occupat ionnh Health - Occupational Stress Questionnaire Answer Date [...] is asking for Clarification. Provider: Sita Noguera FING MACHINE OPERATOR documented in this encounter Plan of Treatment Upcoming Encounters Date Type Department Care Team (Late st Contact Info) Description 03/22/2023 7:30 AM SCARFING MACHINE OPERATOR Appointment Department of Laboratory Medicine and Pathology, [facility] in [place], [place] [address] [place] [address] Mari Noguera M.D. [address] [place] [phone] 03/22/2023 8:45 AM SCARFING MACHINE OPERATOR Hospital Encounter Outpatient Procedure Center in [place], [place] [address] [place] [address] Mari Noguera M.D. [address] [place] [phone] 03/31/2023 10:10 AM SCARFING MACHINE OPERATOR Appointment Department of Laboratory Medicine in [address] [address] Mari Noguera M.D. [address] [place] [phone] 04/04/2023 3:20 PM SCARFING MACHINE OPERATOR Office Visit Department of Oncology in [address] [phone] Mari Noguera M.D. [address] [place] [phone] 04/04/2023 3:45 PM SCARFING MACHINE OPERATOR Infusion Department of Infusion Therapy in [address] [phone] Mari Noguera M.D. [address] [place] [phone] 04/13/2023 10:10 AM SCARFING MACHINE OPERATOR Appointment Department of Laboratory Medicine in [address] [phone] Mari Noguera M.D. [address] [place] [phone] 04/14/2023 9:00 AM SCARFING MACHINE OPERATOR Infusion Department of Infusion Therapy in [place], [place] [address] [place] [phone] Mari Noguera M.D. [address] [place] [phone] documented as of this encounter Visit Diagnoses Not on filedocumented in this encounter Additional Health Concerns Infection Onset Date Last Indicated Resolved Time Protective Environment 06/03/2022 06/03/2022 documented as of this encounter Care Teams Moth Exterminator Relationship Specialty Start Date End Date Elsewhere, Pcp PCP - General Internal Medicine 04/01/22 documented as of this encounter
--- OUTSIDE RECORDS SUMMARY | 2023-03-21 10:31 | XMS_ITS | Encounter Summary ---
Author Name Unknown Organization [facility] Address [address] [place] [address] Care Team Providers Care Bench Mover Name Role Phone Elsewhere, Pcp Primary Care Provider Unavailabl e Reason for Visit * Reason Comments Med Refill Encounter Details Date Type Department Care Team (Late st Contact Info) Description 03/14/2023 Refill Department of Oncology in [place], [place] [address] [place] [phone] Mari Noguera M.D. [address] [place] [phone] Med Refill Social History Tobacco [...] week 06/11/2021 How often do you attend [facility] or pentecostal services? 1 to 4 [...] Score 4 11/18/2021 [facility] of Occupat ionwi Health - Occupational [...] st Contact Info) Description 03/22/2023 7:30 AM CONE WINDER Appointment Department of Laboratory Medicine and Pathology, [facility], in [place], [place] [address] [place] [address] Mari Noguera M.D. [address] [place] [address] 03/22/2023 8:45 AM CONE WINDER Hospital Encounter Outpatient Procedure Center in [place], [place] [address] [place] [address] Mari Noguera M.D. [facility] [place] [phone] 03/31/2023 10:10 AM CONE WINDER Appointment Department of Laboratory Medicine in [address] [place] [address] Mari Noguera M.D. [address] [place] [phone] 04/04/2023 3:20 PM CONE WINDER Office Visit Department of Oncology in [address] [phone] Mari Noguera M.D. [address] [place] [phone] 04/04/2023 3:45 PM CONE WINDER Infusion Department of Infusion Therapy in [address] [address] Mari Noguera M.D. [address] [place] [phone] 04/13/2023 10:10 AM CONE WINDER Appointment Department of Laboratory Medicine in [address] [phone] Mari Noguera M.D. [facility] [place] [address] 04/14/2023 9:00 AM CONE WINDER Infusion Department of Infusion Therapy in [address] [phone] Mari Noguera M.D. [address] [place] [phone] documented as of this encounter Visit Diagnoses Not on filedocumented in this encounter Additional Health Concerns Infection Onset Date Last Indicated Resolved Time Protective Environment 06/03/2022 06/03/2022 documented as of this encounter Care Teams Bench Mover Relationship Specialty Start Date End Date Elsewhere, Pcp PCP - General Internal Medicine 04/01/22 documented as of this encounter
--- OUTSIDE RECORDS SUMMARY | 2023-03-21 10:31 | XMS_ITS | Encounter Summary ---
Author Name Unknown Organization [facility] Address [address] [place] [address] Care Team Providers Care Customer Service Associate Name Role Phone Elsewhere, Pcp Primary [...] 17 total visits Mari Noguera M.D. [address] [place] [address] [facility] Region Referral ID Status Reason Start Date Expiration Date V isits Requested Visits Authorized [id number] Authorized 05/28/2021 02/27/2024 31 31 Encounter Details Date Type Department Care Team (Latest Contact Info) Description 03/02/2023 10:39 AM PLANT ETIOLOGIST - 03/02/2023 11:59 PM PLANT ETIOLOGIST Hospital Encounter Department of Laboratory Medicine in [place], [place] [address] [facility] [address] Mari Noguera M.D. [address] [place] [address] Multiple Myeloma Not Having Achieved [...] How often do you attend chur or nondenominational services? 1 to 4 times [...] Recorded PHQ-2 Score 4 11/18/2021 [facility]at ional [facility] [...] DAYS OFF 21 capsule 0 02/01/2023 03/03/2023 magnesium chloride (SLOW-MAG) 71.[address] tablet Take 2 tablets (143 mg total) by mouth every morning before breakfast. Do not crush or chew. 30 tablet 1 01/28/2022 03/16/2023 documented as of this encounter Plan of Treatment Upcoming Encounters Date Type Department Care Team (Late st Contact Info) Description 03/22/2023 7:30 AM PLANT ETIOLOGIST Appointment Department of Laboratory Medicine and Pathology, [facility] in [place], [place] [address] [place] [address] Mari Noguera M.D. [address] [place] [phone] 03/22/2023 8:45 AM PLANT ETIOLOGIST Hospital Encounter Outpatient Procedure Center in [place], [place] [address] [place] [address] Mari Noguera M.D. [address] [place] [phone] 03/31/2023 10:10 AM PLANT ETIOLOGIST Appointment Department of Laboratory Medicine in [address] [address] Mari Noguera M.D. [address] [place] [phone] 04/04/2023 3:20 PM PLANT ETIOLOGIST Office Visit Department of Oncology in [address] [phone] Mari Noguera M.D. [address] [place] [phone] 04/04/2023 3:45 PM PLANT ETIOLOGIST Infusion Department of Infusion Therapy in [address] [phone] Mari Noguera M.D. [address] [place] [phone] 04/13/2023 10:10 AM PLANT ETIOLOGIST Appointment Department of Laboratory Medicine in [place] [address] [facility] [address] Mari Noguera M.D. [address] [place] [phone] 04/14/2023 9:00 AM PLANT ETIOLOGIST Infusion Department of Infusion Therapy in [address] [phone] Mari Noguera M.D. [address] [place] [phone] documented as of this encounter Procedures Procedure Name Priority Date/Time Associated Diagnosis Comments CBC WITH DIFFERENTIAL, B Routine 03/02/2023 10:56 AM PLANT ETIOLOGIST Multiple Myeloma Not Having Achieved Remission (HCC) IMMUNOGLOBULINS (IGG, IGA, AND IGM), S Routine 03/02/2023 10:56 AM PLANT ETIOLOGIST Multiple Myeloma Not Having Achieved Remission (HCC) COMPREHENSIVE METABOLIC PANEL, S/P Routine 03/02/2023 10:56 AM PLANT ETIOLOGIST Multiple Myeloma Not Having Achieved Remission (HCC) documented in this encounter Results * (ABNORMAL) Immunoglobulins (IgG, IgA, and IgM) (03/02/2023 10:56 AM PLANT ETIOLOGIST) Immunoglobulin A (IgA), S 37(L) 61 - 356 mg/dL 03/03/2023 10:26 AM PLANT ETIOLOGIST SDSC Immunoglobulin M (IgM), S 12(L) 37 - 286 mg/dL 03/03/2023 11:49 AM PLANT ETIOLOGIST SDSC Immunoglobulin G (IgG), S 1060 767 - 1590 mg/dL 03/03/2023 11:24 AM PLANT ETIOLOGIST SDSC Blood (Blood, Venous) 03/02/2023 10:56 AM PLANT ETIOLOGIST 03/03/2023 6:11 AM PLANT ETIOLOGIST Mari Noguera M.D. LAB BLOOD ADD-ON [facility] [address] [place] [address] [facility] [address] [place] [address] * (ABNORMAL) Comprehensive Metabolic Panel (03/02/2023 10:56 AM PLANT ETIOLOGIST) Potassium, P 3.7 3.6 - 5.2 mmol/L 03/02/2023 1:54 PM PLANT ETIOLOGIST OWAT Sodium, P 141 135 - 145 mmol/L 03/02/2023 1:54 PM PLANT ETIOLOGIST OWAT Chloride, P 100 98 - 107 mmol/L 03/02/2023 1:54 PM PLANT ETIOLOGIST OWAT Bicarbonate, P 27 22 - 29 mmol/L 03/02/2023 1:54 PM PLANT ETIOLOGIST OWAT Anion Gap, P 14 7 - 15 03/02/2023 1:54 PM PLANT ETIOLOGIST OWAT BUN (Blood Urea Nitrogen), P 36(H) 6 - 21 mg/dL 03/02/2023 1:54 PM PLANT ETIOLOGIST OWAT Creatinine 1.53(H) 0.59 - 1.04 mg/dL 03/02/2023 1:54 PM PLANT ETIOLOGIST OWAT Estimated GFR (eGFR) 35(L) >=60 mL/min/BS A 03/02/2023 1:54 PM PLANT ETIOLOGIST OWAT Comment: Estimated GFR calculated using the 2020 CKD_EPI creatinine equation. Calcium, Total, P 9.8 8.8 - 10.2 mg/dL 03/02/2023 1:54 PM PLANT ETIOLOGIST OWAT Glucose, P 163(H) 70 - 140 mg/dL 03/02/2023 1:54 PM PLANT ETIOLOGIST OWAT Protein, Total, P 7.1 6.3 - 7.9 g/dL 03/02/2023 1:54 PM PLANT ETIOLOGIST OWAT Albumin, P 4.4 3.5 - 5.0 g/dL 03/02/2023 1:54 PM PLANT ETIOLOGIST OWAT Aspartate Aminotransferase (AST), P 30 8 - 43 U/L 03/02/2023 1:54 PM PLANT ETIOLOGIST OWAT Alkaline Phosphatase, P 65 35 - 104 U/L 03/02/2023 1:54 PM PLANT ETIOLOGIST OWAT Alanine Aminotransferase (ALT), P 31 7 - 45 U/L 03/02/2023 1:54 PM PLANT ETIOLOGIST OWAT Bilirubin, Total, P 0.3 0.0 - 1.2 mg/dL 03/02/2023 1:54 PM PLANT ETIOLOGIST OWAT Blood (Blood, Venous) 03/02/2023 10:56 AM PLANT ETIOLOGIST 03/02/2023 1:14 PM PLANT ETIOLOGIST Mari Noguera M.D. LAB BLOOD ADD-ON [facility] [address] [place] [address], [facility] OWAT [facility] in [place] [address] [place] [address] * (ABNORMAL) CBC with Differential, Blood (03/02/2023 10:56 AM PLANT ETIOLOGIST) Hemoglobin 11.5(L) 11.6 - 15.0 g/dL 03/02/2023 11:08 AM PLANT ETIOLOGIST FB60 Hematocrit 35.3(L) 35.5 - 44.9 % 03/02/2023 11:08 AM PLANT ETIOLOGIST FB60 Erythrocytes 3.44(L) 3.92 - 5.13 x10(12)/L 03/02/2023 11:08 AM PLANT ETIOLOGIST FB60 MCV 102.6(H) 78.2 - 97.9 fL 03/02/2023 11:08 AM PLANT ETIOLOGIST FB60 RBC Distrib Width 16.1 12.2 - 16.1 % 03/02/2023 11:08 AM PLANT ETIOLOGIST FB60 Platelet Count 45(L) 157 - 371 x10(9)/L 03/02/2023 11:08 AM PLANT ETIOLOGIST FB60 Leukocytes 2.3(L) 3.4 - 9.6 x10(9)/L 03/02/2023 11:08 AM PLANT ETIOLOGIST FB60 Neutrophils 0.90(L) 1.56 - 6.45 x10(9)/L 03/02/2023 11:08 AM PLANT ETIOLOGIST FB60 Lymphocytes 1.20 0.95 - 3.07 x10(9)/L 03/02/2023 11:08 AM PLANT ETIOLOGIST FB60 Monocytes 0.12(L) 0.26 - 0.81 x10(9)/L 03/02/2023 11:08 AM PLANT ETIOLOGIST FB60 Eosinophils 0.05 0.03 - 0.48 x10(9)/L 03/02/2023 11:08 AM PLANT ETIOLOGIST FB60 Basophils <0.04 0.01 - 0.08 x10(9)/L 03/02/2023 11:08 AM PLANT ETIOLOGIST FB60 Blood (Blood, Venous) 03/02/2023 10:56 AM PLANT ETIOLOGIST 03/02/2023 10:56 AM PLANT ETIOLOGIST Mari Noguera M.D. LAB BLOOD ADD-ON [facility] [address] [place] [address], [facility] FB60 [facility] [place] [address] [place] [address] documented in this encounter Visit Diagnoses Diagnosis Multiple Myeloma Not Having Achieved Remission (HCC) documented in this encounter Additional Health Concerns Infection Onset Date Last Indicated Resolved Time Protective Environment 06/03/2022 06/03/2022 documented as of this encounter Care Teams Customer Service Associate Relationship Specialty Start Date End Date Elsewhere, Pcp PCP - General Internal Medicine 04/01/22 documented as of this encounter
--- OUTSIDE RECORDS SUMMARY | 2023-03-21 10:31 | XMS_ITS | Encounter Summary ---
Author Name Unknown Organization [facility] Address [address] [place] [address] Care Team Providers Care Chemical Recovery Operator Name Role Phone Elsewhere, Pcp Primary Care Provider Unavailabl e Reason for Referral * Outpatient (Routine) - Closed Specialty Diagnoses / Procedures Referred By Guillermina zamora Referred To Contact Hematology Oncology Mari Noguera M.D. [address] [place] [phone] [facility] Region Referral ID Status Reason Start Date Expiration Date Visits Re quested Visits Authorized [id number] Closed 03/03/2023 03/02/2026 1 1 HAND Reason for Visit * Reason Comments Follow-up [...] 17 total visits Mari Noguera M.D. [address] [place] [address] [facility] Region Referral ID Status Reason Start Date Expiration Date V isits Requested Visits Authorized [id number] Authorized 05/28/2021 02/27/2024 31 31 Encounter Details Date Type Department Care Team (Late st Contact Info) Description 03/03/2023 3:00 PM ICER HAND Office Visit Department of Oncology in [place], [place] [address] [place] [phone] Mari Noguera M.D. [address] [place] [address] Multiple Myeloma Not Having Achieved [...] often do you attend chur ch or gnosticism services? 1 to 4 times per year [...] Comments Blood Pressure 97/47 03/03/2023 3:26 PM ICER HAND Pulse 56 03/03/2023 3:26 PM ICER HAND Temperature 36.6 ??C (97.9 ??F) 03/03/2023 3:23 PM CS T Respiratory Rate - - Oxygen Saturation 97% 03/03/2023 3:23 PM ICER HAND Room air Inhaled Oxygen Concentration - - Weight 83.7 kg (184 lb 8.4 oz) 03/03/2023 3:23 P M ICER HAND Height - - Body Mass Index 33.36 10/07/2022 11:14 AM CDT documented in this encounter Progress Notes * Mari Noguera M.D. 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 Treadwell is receiving maintenance therapy with every other week bortezomib and lenalidomide 10 mg21 of 28 days. 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 Recurrent cytopenias despite 20% dose reduction her Velcade. 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 Delay treatment by 2 weeks (hold Velcade and Revlimid) and follow-up at that time. If counts have recovered plan to proceed with Velcade at a 50% dose reduction and continue with lenalidomide at current 10 mg dose. Post transplant immunizations: Posttransplant vaccines began 6 months after transplant through her primary care provider. She has received this year's influenza and COVID and RSV vaccines. Antibiotic prophylaxis: Completed 1 year posttransplant Pen-VK She stopped Bactrim at day 100. Continue acyclovir while on bortezomib until 3 months post bortezomib DVT/PE prophylaxis aspirin 325 mg daily. Mari Noguera M.D. HAND documented in this encounter Plan of Treatment Upcoming Encounters Date Type Department Care Team (Late st Contact Info) Description 03/22/2023 7:30 AM ICER HAND Appointment Department of Laboratory Medicine and Pathology, [facility], in [place], [place] [address] [place] [address] Mari Noguera M.D. [address] [place] [phone] 03/22/2023 8:45 AM ICER HAND Hospital Encounter Outpatient Procedure Center in [place], [place] [address] [place] [address] Mari Noguera M.D. [facility] [place] [phone] 03/31/2023 10:10 AM ICER HAND Appointment Department of Laboratory Medicine in [address] [phone] Mari Noguera M.D. [address] [place] [phone] 04/04/2023 3:20 PM ICER HAND Office Visit Department of Oncology in [address] [phone] Mari Noguera M.D. [address] [place] [phone] 04/04/2023 3:45 PM ICER HAND Infusion Department of Infusion Therapy in [address] [phone] Mari Noguera M.D. [address] [place] [phone] 04/13/2023 10:10 AM ICER HAND Appointment Department of Laboratory Medicine in [address] [address] Mari Noguera M.D. [address] [place] [phone] 04/14/2023 9:00 AM ICER HAND Infusion Department of Infusion Therapy in [address] [phone] Mari Noguera M.D. [address] [place] [phone] Scheduled Referrals Name Type Priority Associated Diagnoses Order Schedule Hematology office visit (clinic) [facility] Region; General Outpatient Referral Routine Expected: 03/17/2023 (Approximate), Expires: 06/01/2024 documented as of this encounter Visit Diagnoses Diagnosis Multiple Myeloma Not Having Achieved Remission (HCC)- Primary Transplant Stem Cell (HCC) Pancytopenia (HCC) documented in this encounter Additional Health Concerns Infection Onset Date Last Indicated Resolved Time Protective Environment 06/03/2022 06/03/2022 documented as of this encounter Care Teams Chemical Recovery Operator Relationship Specialty Start Date End Date Elsewhere, Pcp PCP - General Internal Medicine 04/01/22 documented as of this encounter
--- OUTSIDE RECORDS SUMMARY | 2023-03-21 10:31 | XMS_ITS | Encounter Summary ---
Author Name Unknown Organization [facility] Address [address] [place] [address] Care Team Providers Care Financial Auditor Name Role Phone Elsewhere, Pcp Primary Care Provider Unavailabl e Encounter Details Date Type Department Care Team (Late st Contact Info) Description 03/09/2023 Orders Only Department of Oncology in [place], [place] [address] [place] [phone] Jake Rosales, Pharm.D., R.Ph. [address] [place] [phone] Multiple Myeloma Not Having Achieved Remission (HCC) [...] 4 11/18/2021 [facility] of Occupat ional Health - Occupational Stress [...] st Contact Info) Description 03/22/2023 7:30 AM CLINICAL RESEARCH NURSE Appointment Department of Laboratory Medicine and Pathology, [facility], in [place], [place] [address] [place] [address] Mari Noguera M.D. [address] [place] [phone] 03/22/2023 8:45 AM CLINICAL RESEARCH NURSE Hospital Encounter Outpatient Procedure Center in [place], [place] [address] [place] [address] Mari Noguera M.D. [facility] [place] [phone] 03/31/2023 10:10 AM CLINICAL RESEARCH NURSE Appointment Department of Laboratory Medicine in [address] [phone] Mari Noguera M.D. [address] [place] [phone] 04/04/2023 3:20 PM CLINICAL RESEARCH NURSE Office Visit Department of Oncology in [address] [phone] Mari Noguera M.D. [address] [place] [phone] 04/04/2023 3:45 PM CLINICAL RESEARCH NURSE Infusion Department of Infusion Therapy in [address] [phone] Mari Noguera M.D. [address] [place] [phone] 04/13/2023 10:10 AM CLINICAL RESEARCH NURSE Appointment Department of Laboratory Medicine in [address] [phone] Mari Noguera M.D. [address] [place] [phone] 04/14/2023 9:00 AM CLINICAL RESEARCH NURSE Infusion Department of Infusion Therapy in [address] [phone] Mari Noguera M.D. [address] [place] [phone] documented as of this encounter Visit Diagnoses Diagnosis Multiple Myeloma Not Having Achieved Remission (HCC) documented in this encounter Additional Health Concerns Infection Onset Date Last Indicated Resolved Time Protective Environment 06/03/2022 06/03/2022 documented as of this encounter Care Teams Financial Auditor Relationship Specialty Start Date End Date Elsewhere, Pcp PCP - General Internal Medicine 04/01/22 documented as of this encounter
--- OUTSIDE RECORDS SUMMARY | 2023-03-21 10:31 | XMS_ITS | Encounter Summary ---
Author Name Unknown Organization [facility] Address [address] [place] [address] Care Team Providers Care Printing Specialist Name Role Phone Elsewhere, Pcp Primary Care Provider Unavailabl e Reason for Visit * Episode Based Medications (Routine) - Authorized Specialty Diagnoses / Procedures Referred By Guillermina t Referred To Contact Diagnoses Multiple Myeloma Not Having Achieved Remission (HCC) Procedures NJ ONDANSETRON HCL INJECTION NJ DARATUMUMAB, HYALURONIDASE NJ BORTEZOMIB INJECTION 1,800 mg on Day 1, 8, 15, 22 for cycles 1 & 2, Day 1, 15 3-6, Day 1 for cycle 7 / 28 day cycles / 17 total visits Mari Noguera M.D. [address] [place] [phone] [facility] Region Referral ID Status Reason Start Date Expiration Date V isits Requested Visits Authorized [id number] Authorized 05/28/2021 02/27/2024 31 31 Encounter Details Date Type Department Care Team (Latest Contact Info) Description 03/16/2023 10:28 AM BLACK TOPPER - 03/16/2023 11:59 PM BLACK TOPPER Hospital Encounter Department of Laboratory Medicine in [place], [place] [address] [facility] [place] [address] Mari Noguera M.D. [address] [place] [phone] Multiple Myeloma Not Having Achieved [...] st Contact Info) Description 03/22/2023 7:30 AM BLACK TOPPER Appointment Department of Laboratory Medicine and Pathology, [facility] in [place], [place] [address] [place] [address] Mari Noguera M.D. [address] [place] [phone] 03/22/2023 8:45 AM BLACK TOPPER Hospital Encounter Outpatient Procedure Center in [place], [place] [address] [place] [address] Mari Noguera M.D. [address] [place] [phone] 03/31/2023 10:10 AM BLACK TOPPER Appointment Department of Laboratory Medicine in [place], [place] [address] [place] [address] Mari Noguera M.D. [address] [place] [phone] 04/04/2023 3:20 PM BLACK TOPPER Office Visit Department of Oncology in [address] [phone] Mari Noguera M.D. [address] [place] [phone] 04/04/2023 3:45 PM BLACK TOPPER Infusion Department of Infusion Therapy in [address] [phone] Mari Noguera M.D. [address] [place] [phone] 04/13/2023 10:10 AM BLACK TOPPER Appointment Department of Laboratory Medicine in [place], [place] [address] [place] [address] Mari Noguera M.D. [address] [place] [phone] 04/14/2023 9:00 AM BLACK TOPPER Infusion Department of Infusion Therapy in [address] [phone] Mari Noguera M.D. [address] [place] [phone] documented as of this encounter Procedures Procedure Name Priority Date/Time Associated Diagnosis Comments CBC WITH DIFFERENTIAL, B Routine 03/16/2023 10:37 AM BLACK TOPPER Multiple Myeloma Not Having Achieved Remission (HCC) IMMUNOGLOBULINS (IGG, IGA, AND IGM), S Routine 03/16/2023 10:37 AM BLACK TOPPER Multiple Myeloma Not Having Achieved Remission (HCC) documented in this encounter Results * (ABNORMAL) CBC with Differential, Blood (03/16/2023 10:37 AM BLACK TOPPER) Hemoglobin 11.1(L) 11.6 - 15.0 g/dL 03/16/2023 11:04 AM BLACK TOPPER FB60 Hematocrit 35.0(L) 35.5 - 44.9 % 03/16/2023 11:04 AM BLACK TOPPER FB60 Erythrocytes 3.33(L) 3.92 - 5.13 x10(12)/L 03/16/2023 11:04 AM BLACK TOPPER FB60 MCV 105.1(H) 78.2 - 97.9 fL 03/16/2023 11:04 AM BLACK TOPPER FB60 RBC Distrib Width 16.1 12.2 - 16.1 % 03/16/2023 11:04 AM BLACK TOPPER FB60 Platelet Count 63(L) 157 - 371 x10(9)/L 03/16/2023 11:04 AM BLACK TOPPER FB60 Leukocytes 1.9(L) 3.4 - 9.6 x10(9)/L 03/16/2023 11:04 AM BLACK TOPPER FB60 Neutrophils 0.80(L) 1.56 - 6.45 x10(9)/L 03/16/2023 11:04 AM BLACK TOPPER FB60 Lymphocytes 0.87(L) 0.95 - 3.07 x10(9)/L 03/16/2023 11:04 AM BLACK TOPPER FB60 Monocytes 0.22(L) 0.26 - 0.81 x10(9)/L 03/16/2023 11:04 AM BLACK TOPPER FB60 Eosinophils 0.04 0.03 - 0.48 x10(9)/L 03/16/2023 11:04 AM BLACK TOPPER FB60 Basophils <0.04 0.01 - 0.08 x10(9)/L 03/16/2023 11:04 AM BLACK TOPPER FB60 Blood (Blood, Venous) 03/16/2023 10:37 AM BLACK TOPPER 03/16/2023 10:37 AM BLACK TOPPER Mari Noguera M.D. LAB BLOOD ADD-ON [facility] [address] [place] [address], [facility] FB60 [facility] [place] [address] [place] [address] * (ABNORMAL) Immunoglobulins (IgG, IgA, and IgM) (03/16/2023 10:37 AM BLACK TOPPER) Immunoglobulin A (IgA), S 35(L) 61 - 356 mg/dL 03/17/2023 8:23 AM BLACK TOPPER SDSC Immunoglobulin M (IgM), S 12(L) 37 - 286 mg/dL 03/17/2023 9:41 AM BLACK TOPPER SDSC Immunoglobulin G (IgG), S 1010 767 - 1590 mg/dL 03/17/2023 8:23 AM BLACK TOPPER SDSC Blood (Blood, Venous) 03/16/2023 10:37 AM BLACK TOPPER 03/17/2023 6:15 AM BLACK TOPPER Mari Noguera M.D. LAB BLOOD ADD-ON [facility] [address] [place] [address] [facility] [address] [place] [address] documented in this encounter Visit Diagnoses Diagnosis Multiple Myeloma Not Having Achieved Remission (HCC) documented in this encounter Additional Health Concerns Infection Onset Date Last Indicated Resolved Time Protective Environment 06/03/2022 06/03/2022 documented as of this encounter Care Teams Printing Specialist Relationship Specialty Start Date End Date Elsewhere, Pcp PCP - General Internal Medicine 04/01/22 documented as of this encounter
--- OUTSIDE RECORDS SUMMARY | 2023-03-21 10:32 | XMS_ITS | Encounter Summary ---
Author Name Unknown Organization [facility] Address [address] [place] [address] Care Team Providers Care Tail Worker Name Role Phone Elsewhere, Pcp Primary Care Provider Unavailabl e Reason for Referral * Outpatient (Routine) Specialty Diagnoses / Procedures Referred By Guillermina zamora Referred To Contact Hematology Oncology Mari Noguera M.D. [address] [place] [phone] [facility] Region Referral ID Status Reason Start Date Expiration Date Visits Re quested Visits Authorized HT COMMUNICATIONS SPECIALIST Encounter Details Date Type Department Care Team (Late st Contact Info) Description 02/17/2023 Orders Only Department of Oncology in [address] [phone] Mari Noguera M.D. [address] [place] [phone] Multiple Myeloma Not Having Achieved [...] 06/11/2021 How often do you attend [facility] or mormonism services? 1 to 4 times [...] Answer Date Recorded PHQ-2 Score 4 11/18/2021 [facility] - [...] st Contact Info) Description 03/22/2023 7:30 AM FLIGHT COMMUNICATIONS SPECIALIST Appointment Department of Laboratory Medicine and Pathology, [facility], in [place], [place] [address] [place] [address] Mari Noguera M.D. [address] [place] [phone] 03/22/2023 8:45 AM FLIGHT COMMUNICATIONS SPECIALIST Hospital Encounter Outpatient Procedure Center in [place], [place] [address] [place] [address] Mari Noguera M.D. [address] [place] [phone] 03/31/2023 10:10 AM FLIGHT COMMUNICATIONS SPECIALIST Appointment Department of Laboratory Medicine in [place], [place] [address] [place] [address] Mari Noguera M.D. [address] [place] [phone] 04/04/2023 3:20 PM FLIGHT COMMUNICATIONS SPECIALIST Office Visit Department of Oncology in [address] [phone] Mari Noguera M.D. [address] [place] [phone] 04/04/2023 3:45 PM FLIGHT COMMUNICATIONS SPECIALIST Infusion Department of Infusion Therapy in [address] [phone] Mari Noguera M.D. [address] [place] [phone] 04/13/2023 10:10 AM FLIGHT COMMUNICATIONS SPECIALIST Appointment Department of Laboratory Medicine in [place], [place] [address] [facility] [place] [phone] Mrai Noguera M.D. [address] [place] [phone] 04/14/2023 9:00 AM FLIGHT COMMUNICATIONS SPECIALIST Infusion Department of Infusion Therapy in [address] [phone] Mari Noguera M.D. [address] [place] [phone] Scheduled Orders Name Type Priority Associated [...] Achieved Remission (HCC) Expected: 04/14/2023, Expires: 07/13/2024 Scheduled Referrals Name Type Priority Associated Diagnoses Order Schedule Hematology office visit (clinic) [facility] Region; Pre-Chemo Outpatient Referral Routine Multiple Myeloma Not Having Achieved Remission (HCC) Expected: 03/31/2023, Expires: 03/31/2024 documented as of this encounter Results * (ABNORMAL) CBC with Differential, Blood (03/16/2023 10:37 AM FLIGHT COMMUNICATIONS SPECIALIST) [facility] Hemoglobin 11.1(L) 11.6 - 15.0 g/dL 03/16/2023 11:04 AM FLIGHT COMMUNICATIONS SPECIALIST FB60 Hematocrit 35.0(L) 35.5 - 44.9 % 03/16/2023 11:04 AM FLIGHT COMMUNICATIONS SPECIALIST FB60 Erythrocytes 3.33(L) 3.92 - 5.13 x10(12)/L 03/16/2023 11:04 AM FLIGHT COMMUNICATIONS SPECIALIST FB60 MCV 105.1(H) 78.2 - 97.9 fL 03/16/2023 11:04 AM FLIGHT COMMUNICATIONS SPECIALIST FB60 RBC Distrib Width 16.1 12.2 - 16.1 % 03/16/2023 11:04 AM FLIGHT COMMUNICATIONS SPECIALIST FB60 Platelet Count 63(L) 157 - 371 x10(9)/L 03/16/2023 11:04 AM FLIGHT COMMUNICATIONS SPECIALIST FB60 Leukocytes 1.9(L) 3.4 - 9.6 x10(9)/L 03/16/2023 11:04 AM FLIGHT COMMUNICATIONS SPECIALIST FB60 Neutrophils 0.80(L) 1.56 - 6.45 x10(9)/L 03/16/2023 11:04 AM FLIGHT COMMUNICATIONS SPECIALIST FB60 Lymphocytes 0.87(L) 0.95 - 3.07 x10(9)/L 03/16/2023 11:04 AM FLIGHT COMMUNICATIONS SPECIALIST FB60 Monocytes 0.22(L) 0.26 - 0.81 x10(9)/L 03/16/2023 11:04 AM FLIGHT COMMUNICATIONS SPECIALIST FB60 Eosinophils 0.04 0.03 - 0.48 x10(9)/L 03/16/2023 11:04 AM FLIGHT COMMUNICATIONS SPECIALIST FB60 Basophils <0.04 0.01 - 0.08 x10(9)/L 03/16/2023 11:04 AM FLIGHT COMMUNICATIONS SPECIALIST FB60 Blood (Blood, Venous) 03/16/2023 10:37 AM FLIGHT COMMUNICATIONS SPECIALIST 03/16/2023 10:37 AM FLIGHT COMMUNICATIONS SPECIALIST Mari Noguera M.D. LAB BLOOD ADD-ON [facility] [address] [place] [address], [facility] FB60 [facility] [place] [address] [place] [address] * (ABNORMAL) Immunoglobulins (IgG, IgA, and IgM) (03/16/2023 10:37 AM FLIGHT COMMUNICATIONS SPECIALIST) Immunoglobulin A (IgA), S 35(L) 61 - 356 mg/dL 03/17/2023 8:23 AM FLIGHT COMMUNICATIONS SPECIALIST [facility] Immunoglobulin M (IgM), S 12(L) 37 - 286 mg/dL 03/17/2023 9:41 AM FLIGHT COMMUNICATIONS SPECIALIST [facility] Immunoglobulin G (IgG), S 1010 767 - 1590 mg/dL 03/17/2023 8:23 AM FLIGHT COMMUNICATIONS SPECIALIST [facility] Blood (Blood, Venous) 03/16/2023 10:37 AM FLIGHT COMMUNICATIONS SPECIALIST 03/17/2023 6:15 AM FLIGHT COMMUNICATIONS SPECIALIST Mair Noguera M.D. LAB BLOOD ADD-ON [facility] [address] [place] [address] [facility] [address] [place] [address] documented in this encounter Visit Diagnoses Diagnosis Multiple Myeloma Not Having Achieved Remission (HCC)- Primary documented in this encounter Additional Health Concerns Infection Onset Date Last Indicated Resolved Time Protective Environment 06/03/2022 06/03/2022 documented as of this encounter Care Teams Tail Worker Relationship Specialty Start Date End Date Elsewhere, Pcp PCP - General Internal Medicine 04/01/22 documented as of this encounter
--- OUTSIDE RECORDS SUMMARY | 2023-03-21 10:32 | XMS_ITS | Encounter Summary ---
Author Name Unknown Organization [facility] Address [address] [place] [address] Care Team Providers Care Retort Operator Name Role Phone Elsewhere, Pcp Primary [...] 17 total visits Mari Noguera M.D. [address] [place] [phone] [facility] Region Referral ID Status Reason Start Date Expiration Date V isits Requested Visits Authorized [id number] Authorized 05/28/2021 02/27/2024 31 31 Encounter Details Date Type Department Care Team (Late st Contact Info) Description 02/17/2023 9:15 AM FINANCIAL RISK MANAGER Infusion Department of Infusion Therapy in [place], [place] [address] [place] [phone] Mari Noguera M.D. [address] [place] [phone] Multiple Myeloma Not Having Achieved Remission [...] often do you attend [facility] or evangelical services? 1 to 4 times per year [...] Comments Blood Pressure 103/45 02/17/2023 9:10 AM FINANCIAL RISK MANAGER patient denies any symptoms of a soft blood pressure Pulse 56 02/17/2023 9:10 AM FINANCIAL RISK MANAGER Temperature 36.7 ??C (98.1 ??F) 02/17/2023 9 :10 AM FINANCIAL RISK MANAGER Respiratory Rate 18 02/17/2023 9:10 AM FINANCIAL RISK MANAGER Oxygen Saturation 100% 02/17/2023 9:1 0 AM FINANCIAL RISK MANAGER Inhaled Oxygen Concentration - - Weight - - Height - - Body Mass Index - - documented in this encounter Plan of Treatment Upcoming Encounters Date Type Department Care Team (Late st Contact Info) Description 03/22/2023 7:30 AM FINANCIAL RISK MANAGER Appointment Department of Laboratory Medicine and Pathology, [facility] in [place], [place] [address] [place] [address] Mari Noguera M.D. [address] [place] [phone] 03/22/2023 8:45 AM FINANCIAL RISK MANAGER Hospital Encounter Outpatient Procedure Center in [place], [place] [address] [place] [address] Mari Noguera M.D. [address] [place] [phone] 03/31/2023 10:10 AM FINANCIAL RISK MANAGER Appointment Department of Laboratory Medicine in [address] [phone] Mari Noguera M.D. [address] [place] [phone] 04/04/2023 3:20 PM FINANCIAL RISK MANAGER Office Visit Department of Oncology in [address] [phone] Mari Noguera M.D. [address] [place] [phone] 04/04/2023 3:45 PM FINANCIAL RISK MANAGER Infusion Department of Infusion Therapy in [address] [phone] Mari Noguera M.D. [address] [place] [phone] 04/13/2023 10:10 AM FINANCIAL RISK MANAGER Appointment Department of Laboratory Medicine in [address] [phone] Mari Noguera M.D. [address] [place] [phone] 04/14/2023 9:00 AM FINANCIAL RISK MANAGER Infusion Department of Infusion Therapy in [address] [phone] Mari Noguera M.D. [address] [place] [phone] documented as of this encounter Visit [...] Rotate injection site. Given 02/17/2023 10:11 AM FINANCIAL RISK MANAGER 1.5 mg Right Upper Abdomen documented in this encounter Additional Health Concerns Infection Onset Date Last Indicated Resolved Time Protective Environment 06/03/2022 06/03/2022 documented as of this encounter Care Teams Retort Operator Relationship Specialty Start Date End Date Elsewhere, Pcp PCP - General Internal Medicine 04/01/22 documented as of this encounter
--- OUTSIDE RECORDS SUMMARY | 2023-03-21 10:32 | XMS_ITS | Encounter Summary ---
Author Name Unknown Organization [facility] Address [address] [place] [address] Care Team Providers Care Clinical Phlebotomist Name Role Phone Elsewhere, Pcp Primary Care Provider Unavailabl e Encounter Details Date Type Department Care Team (Latest Contact Info) Description 01/30/2023 1:09 PM MARINE ENGINE MECHANIC - 01/30/2023 11:[address] [facility] Hospital Encounter Department of Laboratory Medicine in [place], [place] [address] [place] [phone] Mari Noguera M.D. [address] [place] [phone] Thrombocytopenia ([facility]) Discharge Disposition: Home or Self Care Social [...] How often do you attend chur or bahai services? 1 to 4 times per year [...] Answer Date Recorded PHQ-2 Score 4 11/18/2021 [facility] - Occupational [...] anxiety (Patient taking AM and PM). 0 metFORMIN (GLUCOPHAGE) 500 mg tablet 500 mg [...] st Contact Info) Description 03/22/2023 7:30 AM MARINE ENGINE MECHANIC Appointment Department of Laboratory Medicine and Pathology, [facility] in [place], [place] [address] [place] [address] Mari Noguera M.D. [address] [place] [phone] 03/22/2023 8:45 AM MARINE ENGINE MECHANIC Hospital Encounter Outpatient Procedure Center in [place], [place] [address] [place] [address] Mari Noguera M.D. [address] [place] [phone] 03/31/2023 10:10 AM MARINE ENGINE MECHANIC Appointment Department of Laboratory Medicine in [address] [phone] Mari Noguera M.D. [address] [place] [phone] 04/04/2023 3:20 PM MARINE ENGINE MECHANIC Office Visit Department of Oncology in [place], [place] [address] [place] [phone] Mari Noguera M.D. [address] [place] [phone] 04/04/2023 3:45 PM MARINE ENGINE MECHANIC Infusion Department of Infusion Therapy in [place] [address] [place] [phone] Mari Noguera M.D. [facility] [place] [phone] 04/13/2023 10:10 AM MARINE ENGINE MECHANIC Appointment Department of Laboratory Medicine in [place] [address] [address] [place] [address] Mari Noguera M.D. [address] [place] [phone] 04/14/2023 9:00 AM MARINE ENGINE MECHANIC Infusion Department of Infusion Therapy in [place] [address] [place] [phone] Mari Noguera M.D. [facility] [place] [phone] documented as of this encounter Procedures Procedure Name Priority Date/Time Associated Diagnosis Comments CBC WITH DIFFERENTIAL, B Routine 01/30/2023 1:16 PM MARINE ENGINE MECHANIC Thrombocytopenia (HCC) documented in this encounter Results * (ABNORMAL) CBC with Differential, Blood (01/30/2023 1:16 PM MARINE ENGINE MECHANIC) Hemoglobin 12.4 11.6 - 15.0 g/dL 01/30/2023 1:21 PM MARINE ENGINE MECHANIC [facility] Hematocrit 38.3 35.5 - 44.9 % 01/30/2023 1:21 PM MARINE ENGINE MECHANIC [facility] Erythrocytes 3.87(L) 3.92 - 5.13 x10(12)/L 01/30/2023 1:21 PM MARINE ENGINE MECHANIC [facility] MCV 99.0(H) 78.2 - 97.9 fL 01/30/2023 1:21 PM MARINE ENGINE MECHANIC [facility] RBC Distrib Width 15.5 12.2 - 16.1 % 01/30/2023 1:21 PM MARINE ENGINE MECHANIC [facility] Platelet Count 73(L) 157 - 371 x10(9)/L 01/30/2023 1:21 PM MARINE ENGINE MECHANIC [facility] Leukocytes 4.0 3.4 - 9.6 x10(9)/L 01/30/2023 1:21 PM MARINE ENGINE MECHANIC [facility] Neutrophils 2.57 1.56 - 6.45 x10(9)/L 01/30/2023 1:21 PM MARINE ENGINE MECHANIC [facility] Lymphocytes 1.09 0.95 - 3.07 x10(9)/L 01/30/2023 1:21 PM MARINE ENGINE MECHANIC [facility] Monocytes 0.28 0.26 - 0.81 x10(9)/L 01/30/2023 1:21 PM MARINE ENGINE MECHANIC [facility] Eosinophils 0.04 0.03 - 0.48 x10(9)/L 01/30/2023 1:21 PM MARINE ENGINE MECHANIC [facility] Basophils <0.03 0.01 - 0.08 x10(9)/L 01/30/2023 1:21 PM MARINE ENGINE MECHANIC [facility] Blood (Blood, Venous) 01/30/2023 1:16 PM MARINE ENGINE MECHANIC 01/30/2023 1:17 PM MARINE ENGINE MECHANIC Mari Noguera M.D. LAB BLOOD ADD-ON [facility] [address] [place] [address], [facility] RDWG [facility] [place] [address] [place] [address] documented in this encounter Visit Diagnoses Diagnosis Thrombocytopenia (HCC) documented in this encounter Additional Health Concerns Infection Onset Date Last Indicated Resolved Time Protective Environment 06/03/2022 06/03/2022 documented as of this encounter Care Teams Clinical Phlebotomist Relationship Specialty Start Date End Date Elsewhere, Pcp PCP - General Internal Medicine 04/01/22 documented as of this encounter
--- OUTSIDE RECORDS SUMMARY | 2023-03-21 10:32 | XMS_ITS | Encounter Summary ---
Author Name Unknown Organization [facility] Address [address] [place] [address] Care Team Providers Care Nursing Assistants Teacher Name Role Phone Elsewhere, Pcp Primary [...] / 17 total visits Mari Noguera M.D. [address] [place] [phone] [facility] Region Referral ID Status Reason Start Date Expiration Date V isits Requested Visits Authorized [id number] Authorized 05/28/2021 02/27/2024 31 31 Encounter Details Date Type Department Care Team (Late st Contact Info) Description 02/10/2023 9:15 AM CONVERTIBLE TOP INSTALLER Infusion Department of Infusion Therapy in [place], [place] [address] [place] [phone] Mari Noguera M.D. [address] [place] [phone] Multiple Myeloma Not Having Achieved Remission [...] any clubs o r organizations such as presybeterian groups, unions, fraternal or athletic groups, or [...] 4 11/18/2021 [facility] - Occupational Stress Questionnaire Answer Date [...] per Dr. Noguera. Patient rescheduled for 02/17/23. ERTIBLE TOP INSTALLER documented in this encounter Miscellaneous Notes * Addendum Note - Jonna Encarnacion R.N. - 02/10/2023 9:15 AM CSTAddended by: JONNA ENCARNACION on: 02/10/2023 09:46 AM Modules accepted: Orders ERTIBLE TOP INSTALLER documented in this encounter Plan of Treatment Upcoming Encounters Date Type Department Care Team (Late st Contact Info) Description 03/22/2023 7:30 AM CONVERTIBLE TOP INSTALLER Appointment Department of Laboratory Medicine and Pathology, [facility] in [place], [place] [address] [place] [address] Mari Noguera M.D. [address] [place] [phone] 03/22/2023 8:45 AM CONVERTIBLE TOP INSTALLER Hospital Encounter Outpatient Procedure Center in [place], [place] [address] [place] [address] Mari Noguera M.D. [address] [place] [phone] 03/31/2023 10:10 AM CONVERTIBLE TOP INSTALLER Appointment Department of Laboratory Medicine in [address] [place] [address] Mari Noguera M.D. [address] [place] [phone] 04/04/2023 3:20 PM CONVERTIBLE TOP INSTALLER Office Visit Department of Oncology in [address] [phone] Mari Noguera M.D. [address] [place] [phone] 04/04/2023 3:45 PM CONVERTIBLE TOP INSTALLER Infusion Department of Infusion Therapy in [address] [phone] Mari Noguera M.D. [address] [place] [phone] 04/13/2023 10:10 AM CONVERTIBLE TOP INSTALLER Appointment Department of Laboratory Medicine in [address] [place] [address] Mari Noguera M.D. [address] [place] [phone] 04/14/2023 9:00 AM CONVERTIBLE TOP INSTALLER Infusion Department of Infusion Therapy in [address] [phone] Mari Noguera M.D. [address] [place] [phone] documented as of this encounter Results * (ABNORMAL) Immunoglobulins (IgG, IgA, and IgM) (03/02/2023 10:56 AM CONVERTIBLE TOP INSTALLER) Immunoglobulin A (IgA), S 37(L) 61 - 356 mg/dL 03/03/2023 10:26 AM CONVERTIBLE TOP INSTALLER [facility] Immunoglobulin M (IgM), S 12(L) 37 - 286 mg/dL 03/03/2023 11:49 AM CONVERTIBLE TOP INSTALLER [facility] Immunoglobulin G (IgG), S 1060 767 - 1590 mg/dL 03/03/2023 11:24 AM CONVERTIBLE TOP INSTALLER [facility] Blood (Blood, Venous) 03/02/2023 10:56 AM CONVERTIBLE TOP INSTALLER 03/03/2023 6:11 AM CONVERTIBLE TOP INSTALLER Mari Noguera M.D. LAB BLOOD ADD-ON [facility] [address] [place] [address] [facility] [address] [place] [address] * (ABNORMAL) CBC with Differential, Blood (02/17/2023 8:29 AM CONVERTIBLE TOP INSTALLER) Hemoglobin 11.3(L) 11.6 - 15.0 g/dL 02/17/2023 8:33 AM CONVERTIBLE TOP INSTALLER [facility] Hematocrit 34.6(L) 35.5 - 44.9 % 02/17/2023 8:33 AM CONVERTIBLE TOP INSTALLER [facility] Erythrocytes 3.39(L) 3.92 - 5.13 x10(12)/L 02/17/2023 8:33 AM CONVERTIBLE TOP INSTALLER [facility] MCV 102.1(H) 78.2 - 97.9 fL 02/17/2023 8:33 AM CONVERTIBLE TOP INSTALLER [facility] RBC Distrib Width 16.1 12.2 - 16.1 % 02/17/2023 8:33 AM CONVERTIBLE TOP INSTALLER [facility] Platelet Count 55(L) 157 - 371 x10(9)/L 02/17/2023 8:33 AM CONVERTIBLE TOP INSTALLER [facility] Leukocytes 2.9(L) 3.4 - 9.6 x10(9)/L 02/17/2023 8:33 AM CONVERTIBLE TOP INSTALLER [facility] Neutrophils 1.37(L) 1.56 - 6.45 x10(9)/L 02/17/2023 8:33 AM CONVERTIBLE TOP INSTALLER [facility] Lymphocytes 1.03 0.95 - 3.07 x10(9)/L 02/17/2023 8:33 AM CONVERTIBLE TOP INSTALLER [facility] Monocytes 0.42 0.26 - 0.81 x10(9)/L 02/17/2023 8:33 AM CONVERTIBLE TOP INSTALLER [facility] Eosinophils 0.11 0.03 - 0.48 x10(9)/L 02/17/2023 8:33 AM CONVERTIBLE TOP INSTALLER [facility] Basophils <0.03 0.01 - 0.08 x10(9)/L 02/17/2023 8:33 AM CONVERTIBLE TOP INSTALLER [facility] Blood (Blood, Venous) 02/17/2023 8:29 AM CONVERTIBLE TOP INSTALLER 02/17/2023 8:31 AM CONVERTIBLE TOP INSTALLER Mari Noguera M.D. LAB BLOOD ADD-ON [facility] [address] [place] [address], [facility] RDWG [facility] in [place] [address] [place] [phone] documented in this encounter Visit Diagnoses Diagnosis Multiple Myeloma Not Having Achieved Remission (HCC)- Primary documented in this encounter Additional Health Concerns Infection Onset Date Last Indicated Resolved Time Protective Environment 06/03/2022 06/03/2022 documented as of this encounter Care Teams Nursing Assistants Teacher Relationship Specialty Start Date End Date Elsewhere, Pcp PCP - General Internal Medicine 04/01/22 documented as of this encounter
--- OUTSIDE RECORDS SUMMARY | 2023-03-21 10:32 | XMS_ITS | Encounter Summary ---
Author Name Unknown Organization [facility] Address [address] [place] [address] Care Team Providers Care Eye Surgeon Name Role Phone Elsewhere, Pcp Primary Care Provider Unavailabl e Reason for Visit * Reason Comments Med Refill Encounter Details Date Type Department Care Team (Late st Contact Info) Description 02/05/2023 Refill Garrick gilmore [facility] in [place], [place] [address] [place] [address] Jeannie Headley APRN, C.N.P., D.N.P., M.S.N. [address] [place] [address] Med Refill Social History Tobacco Use Types [...] How often do you attend chur or yazdanism services? 1 to 4 times [...] st Contact Info) Description 03/22/2023 7:30 AM FRAUD ANALYST Appointment Department of Laboratory Medicine and Pathology, [facility], in [place], [place] [address] [place] [address] Mari Noguera M.D. [address] [place] [phone] 03/22/2023 8:45 AM FRAUD ANALYST Hospital Encounter Outpatient Procedure Center in [place], [place] [address] [place] [address] Mari Noguera M.D. [address] [place] [phone] 03/31/2023 10:10 AM FRAUD ANALYST Appointment Department of Laboratory Medicine in [place], [place] [address] [place] [address] Mari Noguera M.D. [address] [place] [phone] 04/04/2023 3:20 PM FRAUD ANALYST Office Visit Department of Oncology in [address] [phone] Mari Noguera M.D. [address] [place] [phone] 04/04/2023 3:45 PM FRAUD ANALYST Infusion Department of Infusion Therapy in [address] [phone] Mari Noguera M.D. [address] [place] [phone] 04/13/2023 10:10 AM FRAUD ANALYST Appointment Department of Laboratory Medicine in [place], [place] [address] [place] [address] Mari Noguera M.D. [address] [place] [phone] 04/14/2023 9:00 AM FRAUD ANALYST Infusion Department of Infusion Therapy in [place], [place] [address] [place] [phone] Mari Noguera M.D. [address] [place] [phone] documented as of this encounter Visit Diagnoses Not on filedocumented in this encounter Additional Health Concerns Infection Onset Date Last Indicated Resolved Time Protective Environment 06/03/2022 06/03/2022 documented as of this encounter Care Teams Eye Surgeon Relationship Specialty Start Date End Date Elsewhere, Pcp PCP - General Internal Medicine 04/01/22 documented as of this encounter
--- OUTSIDE RECORDS SUMMARY | 2023-03-21 10:32 | XMS_ITS | Encounter Summary ---
Author Name Unknown Organization [facility] Address [address] [place] [address] Care Team Providers Care Sr. Manager Corporate Communications Name Role Phone Elsewhere, Pcp Primary Care Provider Unavailabl e Encounter Details Date Type Department Care Team (Late st Contact Info) Description 01/30/2023 Orders Only Department of Oncology in [place], [place] [address] [place] [phone] Anna Rosa RAbrahamNAbraham [address] [place] [address] Thrombocytopenia (HCC) (Primary Dx) Social History Tobacco [...] often do you attend chur ch or sikh services? 1 to 4 times per year [...] [facility] - Occupational Stress Questionnaire Answer Date [...] st Contact Info) Description 03/22/2023 7:30 AM ROLLER HAND Appointment Department of Laboratory Medicine and Pathology, [facility], in [place], [place] [address] [place] [address] Mari Noguera M.D. [address] [place] [phone] 03/22/2023 8:45 AM ROLLER HAND Hospital Encounter Outpatient Procedure Center in [place], [place] [address] [place] [address] Mari Noguera M.D. [facility] [place] [phone] 03/31/2023 10:10 AM ROLLER HAND Appointment Department of Laboratory Medicine in [address] [address] Mari Noguera M.D. [facility] [place] [phone] 04/04/2023 3:20 PM ROLLER HAND Office Visit Department of Oncology in [address] [phone] Mari Noguera M.D. [address] [place] [phone] 04/04/2023 3:45 PM ROLLER HAND Infusion Department of Infusion Therapy in [place] [address] [place] [phone] Mari Noguera M.D. [address] [place] [phone] 04/13/2023 10:10 AM ROLLER HAND Appointment Department of Laboratory Medicine in [address] [address] Mari Noguera M.D. [facility] [phone] 04/14/2023 9:00 AM ROLLER HAND Infusion Department of Infusion Therapy in [place] [address] [place] [address] Mari Noguera M.D. [address] [place] [phone] documented as of this encounter Results * (ABNORMAL) CBC with Differential, Blood (01/30/2023 1:16 PM ROLLER HAND) Hemoglobin 12.4 11.6 - 15.0 g/dL 01/30/2023 1:21 PM ROLLER HAND RDWG Hematocrit 38.3 35.5 - 44.9 % 01/30/2023 1:21 PM ROLLER HAND RDWG Erythrocytes 3.87(L) 3.92 - 5.13 x10(12)/L 01/30/2023 1:21 PM ROLLER HAND RDWG MCV 99.0(H) 78.2 - 97.9 fL 01/30/2023 1:21 PM ROLLER HAND RDWG RBC Distrib Width 15.5 12.2 - 16.1 % 01/30/2023 1:21 PM ROLLER HAND RDWG Platelet Count 73(L) 157 - 371 x10(9)/L 01/30/2023 1:21 PM ROLLER HAND RDWG Leukocytes 4.0 3.4 - 9.6 x10(9)/L 01/30/2023 1:21 PM ROLLER HAND RDWG Neutrophils 2.57 1.56 - 6.45 x10(9)/L 01/30/2023 1:21 PM ROLLER HAND RDWG Lymphocytes 1.09 0.95 - 3.07 x10(9)/L 01/30/2023 1:21 PM ROLLER HAND RDWG Monocytes 0.28 0.26 - 0.81 x10(9)/L 01/30/2023 1:21 PM ROLLER HAND RDWG Eosinophils 0.04 0.03 - 0.48 x10(9)/L 01/30/2023 1:21 PM ROLLER HAND RDWG Basophils <0.03 0.01 - 0.08 x10(9)/L 01/30/2023 1:21 PM ROLLER HAND RDWG Blood (Blood, Venous) 01/30/2023 1:16 PM ROLLER HAND 01/30/2023 1:17 PM ROLLER HAND Mari Noguera M.D. LAB BLOOD ADD-ON [facility] [place] [facility] [address] [address], [facility] RDWG [facility] in [place] [address] [phone] documented in this encounter Visit Diagnoses Diagnosis Thrombocytopenia (HCC)- Primary documented in this encounter Additional Health Concerns Infection Onset Date Last Indicated Resolved Time Protective Environment 06/03/2022 06/03/2022 documented as of this encounter Care Teams Sr. Manager Corporate Communications Relationship Specialty Start Date End Date Elsewhere, Pcp PCP - General Internal Medicine 04/01/22 documented as of this encounter
--- OUTSIDE RECORDS SUMMARY | 2023-03-21 10:32 | XMS_ITS | Encounter Summary ---
Author Name Unknown Organization [facility] Address [address] [place] [address] Care Team Providers Care Digital Measurement Advisor Name Role Phone Elsewhere, Pcp Primary Care [...] 17 total visits Mari Noguera M.D. [address] [place] [address] [facility] Region Referral ID Status Reason Start Date Expiration Date V isits Requested Visits Authorized [id number] Authorized 05/28/2021 02/27/2024 31 31 Encounter Details Date Type Department Care Team (Latest Contact Info) Description 01/27/2023 7:50 AM CHIEF I DISPATCHER - 01/27/2023 11:59 PM CHIEF I DISPATCHER Hospital Encounter Department of Laboratory Medicine in [place], [place] [address] [place] [phone] Mari Noguera M.D. [address] [place] [phone] Multiple Myeloma Not Having Achieved [...] How often do you attend chur or episcopal services? 1 to 4 times [...] Answer Date Recorded PHQ-2 Score 4 11/18/2021 [facility] of Occupat ional Health - [...] st Contact Info) Description 03/22/2023 7:30 AM CHIEF I DISPATCHER Appointment Department of Laboratory Medicine and Pathology, [facility], in [place], [place] [address] [place] [address] Mari Noguera M.D. [address] [phone] 03/22/2023 8:45 AM CHIEF I DISPATCHER Hospital Encounter Outpatient Procedure Center in [place], [place] [address] [place] [address] Mari Noguera M.D. [address] [place] [phone] 03/31/2023 10:10 AM CHIEF I DISPATCHER Appointment Department of Laboratory Medicine in [address] [place] [address] Mari Noguera M.D. [address] [place] [phone] 04/04/2023 3:20 PM CHIEF I DISPATCHER Office Visit Department of Oncology in [address] [phone] Mari Noguera M.D. [address] [place] [phone] 04/04/2023 3:45 PM CHIEF I DISPATCHER Infusion Department of Infusion Therapy in [address] [phone] Mari Noguera M.D. [address] [place] [phone] 04/13/2023 10:10 AM CHIEF I DISPATCHER Appointment Department of Laboratory Medicine in [address] [place] [address] Mari Noguera M.D. [address] [place] [phone] 04/14/2023 9:00 AM CHIEF I DISPATCHER Infusion Department of Infusion Therapy in [address] [phone] Mari Noguera M.D. [address] [place] [phone] documented as of this encounter Procedures Procedure Name Priority Date/Time Associated Diagnosis Comments CBC WITH DIFFERENTIAL, B Routine 01/27/2023 8:00 AM CHIEF I DISPATCHER Multiple Myeloma Not Having Achieved Remission (HCC) COMPREHENSIVE METABOLIC PANEL, S/P Routine 01/27/2023 8:00 AM CHIEF I DISPATCHER Multiple Myeloma Not Having Achieved Remission (HCC) documented in this encounter Results * (ABNORMAL) Comprehensive Metabolic Panel (01/27/2023 8:00 AM CHIEF I DISPATCHER) Potassium, P 4.2 3.6 - 5.2 mmol/L 01/27/2023 8:26 AM CHIEF I DISPATCHER RDWG Sodium, P 138 135 - 145 mmol/L 01/27/2023 8:26 AM CHIEF I DISPATCHER RDWG Chloride, P 99 98 - 107 mmol/L 01/27/2023 8:26 AM CHIEF I DISPATCHER RDWG Bicarbonate, P 30(H) 22 - 29 mmol/L 01/27/2023 8:26 AM CHIEF I DISPATCHER RDWG Anion Gap, P 9 7 - 15 01/27/2023 8:26 AM CHIEF I DISPATCHER RDWG BUN (Blood Urea Nitrogen), P 34(H) 6 - 21 mg/dL 01/27/2023 8:26 AM CHIEF I DISPATCHER RDWG Creatinine 1.32(H) 0.59 - 1.04 mg/dL 01/27/2023 8:26 AM CHIEF I DISPATCHER RDWG Estimated GFR (eGFR) 42(L) >=60 mL/min/BS A 01/27/2023 8:26 AM CHIEF I DISPATCHER RDWG Comment: Estimated GFR calculated using the 2020 CKD_EPI creatinine equation. Calcium, Total, P 10.0 8.8 - 10.2 mg/dL 01/27/2023 8:26 AM CHIEF I DISPATCHER RDWG Glucose, P 110 70 - 140 mg/dL 01/27/2023 8:26 AM CHIEF I DISPATCHER RDWG Protein, Total, P 6.9 6.3 - 7.9 g/dL 01/27/2023 8:26 AM CHIEF I DISPATCHER RDWG Albumin, P 4.0 3.5 - 5.0 g/dL 01/27/2023 8:26 AM CHIEF I DISPATCHER RDWG Aspartate Aminotransferase (AST), P 17 8 - 43 U/L 01/27/2023 8:26 AM CHIEF I DISPATCHER RDWG Alkaline Phosphatase, P 78 35 - 104 U/L 01/27/2023 8:26 AM CHIEF I DISPATCHER RDWG Alanine Aminotransferase (ALT), P 12 7 - 45 U/L 01/27/2023 8:26 AM CHIEF I DISPATCHER RDWG Bilirubin, Total, P <0.2 0.0 - 1.2 mg/dL 01/27/2023 8:26 AM CHIEF I DISPATCHER RDWG Blood (Blood, Venous) 01/27/2023 8:00 AM CHIEF I DISPATCHER 01/27/2023 8:01 AM CHIEF I DISPATCHER Mari Noguera M.D. LAB BLOOD ADD-ON [facility] [place] [facility] 701 [place] [address], [facility] RDWG [facility] in [place] 701 [place] [address] * (ABNORMAL) CBC with Differential, Blood (01/27/2023 8:00 AM CHIEF I DISPATCHER) Hemoglobin 12.2 11.6 - 15.0 g/dL 01/27/2023 8:06 AM CHIEF I DISPATCHER RDWG Hematocrit 38.0 35.5 - 44.9 % 01/27/2023 8:06 AM CHIEF I DISPATCHER RDWG Erythrocytes 3.82(L) 3.92 - 5.13 x10(12)/L 01/27/2023 8:06 AM CHIEF I DISPATCHER RDWG MCV 99.5(H) 78.2 - 97.9 fL 01/27/2023 8:06 AM CHIEF I DISPATCHER RDWG RBC Distrib Width 15.8 12.2 - 16.1 % 01/27/2023 8:06 AM CHIEF I DISPATCHER RDWG Platelet Count 68(L) 157 - 371 x10(9)/L 01/27/2023 8:06 AM CHIEF I DISPATCHER RDWG Leukocytes 3.5 3.4 - 9.6 x10(9)/L 01/27/2023 8:06 AM CHIEF I DISPATCHER RDWG Neutrophils 2.05 1.56 - 6.45 x10(9)/L 01/27/2023 8:06 AM CHIEF I DISPATCHER RDWG Lymphocytes 0.94(L) 0.95 - 3.07 x10(9)/L 01/27/2023 8:06 AM CHIEF I DISPATCHER RDWG Monocytes 0.41 0.26 - 0.81 x10(9)/L 01/27/2023 8:06 AM CHIEF I DISPATCHER RDWG Eosinophils 0.05 0.03 - 0.48 x10(9)/L 01/27/2023 8:06 AM CHIEF I DISPATCHER RDWG Basophils 0.03 0.01 - 0.08 x10(9)/L 01/27/2023 8:06 AM CHIEF I DISPATCHER RDWG Blood (Blood, Venous) 01/27/2023 8:00 AM CHIEF I DISPATCHER 01/27/2023 8:01 AM CHIEF I DISPATCHER Mari Noguera M.D. LAB BLOOD ADD-ON [facility] [address] [place] [address], [facility] RDWG [facility] in [place] [address] [place] [address] documented in this encounter Visit Diagnoses Diagnosis Multiple Myeloma Not Having Achieved Remission (HCC) documented in this encounter Additional Health Concerns Infection Onset Date Last Indicated Resolved Time Protective Environment 06/03/2022 06/03/2022 documented as of this encounter Care Teams Digital Measurement Advisor Relationship Specialty Start Date End Date Elsewhere, Pcp PCP - General Internal Medicine 04/01/22 documented as of this encounter
--- OUTSIDE RECORDS SUMMARY | 2023-03-21 10:32 | XMS_ITS | Encounter Summary ---
Author Name Unknown Organization [facility] Address [address] [place] [address] Care Team Providers Care Electronic Court Recorder Name Role Phone Elsewhere, Pcp Primary Care [...] 17 total visits Mari Noguera M.D. [address] [place] [address] [facility] Region Referral ID Status Reason Start Date Expiration Date V isits Requested Visits Authorized [id number] Authorized 05/28/2021 02/27/2024 31 31 Encounter Details Date Type Department Care Team (Latest Contact Info) Description 02/09/2023 2:29 PM WEIGHER ALLOY - 02/09/2023 11:59 PM WEIGHER ALLOY Hospital Encounter Department of Laboratory Medicine in [place], [place] [address] [facility] [place] [address] Mari Noguera M.D. [address] [place] [address] Multiple Myeloma Not Having Achieved [...] How often do you attend chur or muslim services? 1 to 4 times per year [...] st Contact Info) Description 03/22/2023 7:30 AM WEIGHER ALLOY Appointment Department of Laboratory Medicine and Pathology, [facility] in [place], [place] [address] [place] [address] Mari Noguera M.D. [address] [place] [phone] 03/22/2023 8:45 AM WEIGHER ALLOY Hospital Encounter Outpatient Procedure Center in [place], [place] [address] [place] [address] Mari Noguera M.D. [address] [place] [phone] 03/31/2023 10:10 AM WEIGHER ALLOY Appointment Department of Laboratory Medicine in [address] [phone] Mari Noguera M.D. [address] [facility] [phone] 04/04/2023 3:20 PM WEIGHER ALLOY Office Visit Department of Oncology in [address] [place] [phone] Mari Noguera M.D. [address] [place] [phone] 04/04/2023 3:45 PM WEIGHER ALLOY Infusion Department of Infusion Therapy in [address] [place] [phone] Mari Noguera M.D. [address] [place] [phone] 04/13/2023 10:10 AM WEIGHER ALLOY Appointment Department of Laboratory Medicine in [address] [place] [address] Mari Noguera M.D. [address] [place] [phone] 04/14/2023 9:00 AM WEIGHER ALLOY Infusion Department of Infusion Therapy in [address] [phone] Mari Noguera M.D. [address] [place] [phone] documented as of this encounter Procedures Procedure Name Priority Date/Time Associated Diagnosis Comments CBC WITH DIFFERENTIAL, B Routine 02/09/2023 2:36 PM WEIGHER ALLOY Multiple Myeloma Not Having Achieved Remission (HCC) IMMUNOGLOBULINS (IGG, IGA, AND IGM), S Routine 02/09/2023 2:36 PM WEIGHER ALLOY Multiple Myeloma Not Having Achieved Remission (HCC) documented in this encounter Results * (ABNORMAL) CBC with Differential, Blood (02/09/2023 2:36 PM WEIGHER ALLOY) Hemoglobin 11.4(L) 11.6 - 15.0 g/dL 02/09/2023 3:36 PM WEIGHER ALLOY OWAT Hematocrit 34.9(L) 35.5 - 44.9 % 02/09/2023 3:36 PM WEIGHER ALLOY OWAT Erythrocytes 3.43(L) 3.92 - 5.13 x10(12)/L 02/09/2023 3:36 PM WEIGHER ALLOY OWAT MCV 101.7(H) 78.2 - 97.9 fL 02/09/2023 3:36 PM WEIGHER ALLOY OWAT RBC Distrib Width 16.0 12.2 - 16.1 % 02/09/2023 3:36 PM WEIGHER ALLOY OWAT Platelet Count 53(L) 157 - 371 x10(9)/L 02/09/2023 3:36 PM WEIGHER ALLOY OWAT Leukocytes 5.0 3.4 - 9.6 x10(9)/L 02/09/2023 3:36 PM WEIGHER ALLOY OWAT Neutrophils 3.51 1.56 - 6.45 x10(9)/L 02/09/2023 3:36 PM WEIGHER ALLOY OWAT Lymphocytes 1.03 0.95 - 3.07 x10(9)/L 02/09/2023 3:36 PM WEIGHER ALLOY OWAT Monocytes 0.37 0.26 - 0.81 x10(9)/L 02/09/2023 3:36 PM WEIGHER ALLOY OWAT Eosinophils 0.11 0.03 - 0.48 x10(9)/L 02/09/2023 3:36 PM WEIGHER ALLOY OWAT Basophils <0.03 0.01 - 0.08 x10(9)/L 02/09/2023 3:36 PM WEIGHER ALLOY OWAT Blood (Blood, Venous) 02/09/2023 2:36 PM WEIGHER ALLOY 02/09/2023 2:36 PM WEIGHER ALLOY Mari Noguera M.D. LAB BLOOD ADD-ON [facility] [address] [place] [address], [facility] OWAT [facility] in [place] [address] [place] [address] * (ABNORMAL) Immunoglobulins (IgG, IgA, and IgM) (02/09/2023 2:36 PM WEIGHER ALLOY) Immunoglobulin A (IgA), S 41(L) 61 - 356 mg/dL 02/10/2023 9:03 AM WEIGHER ALLOY SDSC Immunoglobulin M (IgM), S 19(L) 37 - 286 mg/dL 02/10/2023 9:03 AM WEIGHER ALLOY SDSC Immunoglobulin G (IgG), S 883 767 - 1590 mg/dL 02/10/2023 9:03 AM WEIGHER ALLOY SDSC Blood (Blood, Venous) 02/09/2023 2:36 PM WEIGHER ALLOY 02/10/2023 6:11 AM WEIGHER ALLOY Mari Noguera M.D. LAB BLOOD ADD-ON [facility] [address] [place] [address] [facility] [address] [place] [address] documented in this encounter Visit Diagnoses Diagnosis Multiple Myeloma Not Having Achieved Remission (HCC) documented in this encounter Additional Health Concerns Infection Onset Date Last Indicated Resolved Time Protective Environment 06/03/2022 06/03/2022 documented as of this encounter Care Teams Electronic Court Recorder Relationship Specialty Start Date End Date Elsewhere, Pcp PCP - General Internal Medicine 04/01/22 documented as of this encounter
--- OUTSIDE RECORDS SUMMARY | 2023-03-21 10:32 | XMS_ITS | Encounter Summary ---
Author Name Unknown Organization [facility] Address [address] [place] [address] Care Team Providers Care Railroad Maintenance Clerk Name Role Phone Elsewhere, Pcp Primary [...] 17 total visits Mari Noguera M.D. [address] [place] [address] [facility] Region Referral ID Status Reason Start Date Expiration Date V isits Requested Visits Authorized [id number] Authorized 05/28/2021 02/27/2024 31 31 Encounter Details Date Type Department Care Team (Latest Contact Info) Description 02/17/2023 8:23 AM PIPE ROLLER - 02/17/2023 11:59 PM PIPE ROLLER Hospital Encounter Department of Laboratory Medicine in [place], [place] [address] [place] [phone] Mari Noguera M.D. [address] [place] [address] Multiple Myeloma Not Having Achieved [...] Answer Date Recorded PHQ-2 Score 4 11/18/2021 [facility] of Occupat ional Health - Occupational [...] st Contact Info) Description 03/22/2023 7:30 AM PIPE ROLLER Appointment Department of Laboratory Medicine and Pathology, [facility] in [place], [place] [address] [place] [address] Mari Noguera M.D. [address] [place] [phone] 03/22/2023 8:45 AM PIPE ROLLER Hospital Encounter Outpatient Procedure Center in [place], [place] [address] [place] [address] Mari Noguera M.D. [address] [place] [phone] 03/31/2023 10:10 AM PIPE ROLLER Appointment Department of Laboratory Medicine in [address] [phone] Noguera, Mari, M.D. [address] [place] [phone] 04/04/2023 3:20 PM PIPE ROLLER Office Visit Department of Oncology in [address] [place] [phone] Mari Noguera M.D. [address] [place] [phone] 04/04/2023 3:45 PM PIPE ROLLER Infusion Department of Infusion Therapy in [address] [phone] Mari Noguera M.D. [address] [place] [phone] 04/13/2023 10:10 AM PIPE ROLLER Appointment Department of Laboratory Medicine in [address] [place] [phone] Mari Noguera M.D. [address] [place] [phone] 04/14/2023 9:00 AM PIPE ROLLER Infusion Department of Infusion Therapy in [address] [phone] Mari Noguera M.D. [address] [place] [phone] documented as of this encounter Procedures Procedure Name Priority Date/Time Associated Diagnosis Comments CBC WITH DIFFERENTIAL, B Routine 02/17/2023 8:29 AM PIPE ROLLER Multiple Myeloma Not Having Achieved Remission (HCC) documented in this encounter Results * (ABNORMAL) CBC with Differential, Blood (02/17/2023 8:29 AM PIPE ROLLER) Hemoglobin 11.3(L) 11.6 - 15.0 g/dL 02/17/2023 8:33 AM PIPE ROLLER RDWG Hematocrit 34.6(L) 35.5 - 44.9 % 02/17/2023 8:33 AM PIPE ROLLER RDWG Erythrocytes 3.39(L) 3.92 - 5.13 x10(12)/L 02/17/2023 8:33 AM PIPE ROLLER RDWG MCV 102.1(H) 78.2 - 97.9 fL 02/17/2023 8:33 AM PIPE ROLLER RDWG RBC Distrib Width 16.1 12.2 - 16.1 % 02/17/2023 8:33 AM PIPE ROLLER RDWG Platelet Count 55(L) 157 - 371 x10(9)/L 02/17/2023 8:33 AM PIPE ROLLER RDWG Leukocytes 2.9(L) 3.4 - 9.6 x10(9)/L 02/17/2023 8:33 AM PIPE ROLLER RDWG Neutrophils 1.37(L) 1.56 - 6.45 x10(9)/L 02/17/2023 8:33 AM PIPE ROLLER RDWG Lymphocytes 1.03 0.95 - 3.07 x10(9)/L 02/17/2023 8:33 AM PIPE ROLLER RDWG Monocytes 0.42 0.26 - 0.81 x10(9)/L 02/17/2023 8:33 AM PIPE ROLLER RDWG Eosinophils 0.11 0.03 - 0.48 x10(9)/L 02/17/2023 8:33 AM PIPE ROLLER RDWG Basophils <0.03 0.01 - 0.08 x10(9)/L 02/17/2023 8:33 AM PIPE ROLLER RDWG Blood (Blood, Venous) 02/17/2023 8:29 AM PIPE ROLLER 02/17/2023 8:31 AM PIPE ROLLER Mari Noguera M.D. LAB BLOOD ADD-ON [facility] [address] [address], [facility] RDWG [facility] in [place] [address] [phone] documented in this encounter Visit Diagnoses Diagnosis Multiple Myeloma Not Having Achieved Remission (HCC) documented in this encounter Additional Health Concerns Infection Onset Date Last Indicated Resolved Time Protective Environment 06/03/2022 06/03/2022 documented as of this encounter Care Teams Railroad Maintenance Clerk Relationship Specialty Start Date End Date Elsewhere, Pcp PCP - General Internal Medicine 04/01/22 documented as of this encounter
--- OUTSIDE RECORDS SUMMARY | 2023-03-21 10:32 | XMS_ITS | Encounter Summary ---
Author Name Unknown Organization [facility] Address [address] [place] [address] Care Team Providers Care Apprentice Carpenter Name Role Phone Elsewhere, Pcp Primary Care [...] 17 total visits Mari Noguera M.D. [address] [place] [address] [facility] Region Referral ID Status Reason Start Date Expiration Date V isits Requested Visits Authorized [id number] Authorized 05/28/2021 02/27/2024 31 31 Encounter Details Date Type Department Care Team (Late st Contact Info) Description 01/30/2023 8:00 AM DIRECTOR LIFE SALES Infusion Department of Infusion Therapy in [address] [phone] Mari Noguera M.D. [address] [place] [phone] Multiple Myeloma Not Having Achieved Remission (HCC) [...] often do you attend [facility] or alevism services? 1 to 4 times per year [...] Answer Date Recorded PHQ-2 Score 4 11/18/2021 [facility] of Occupat ional [facility] - Occupational Stress Questionnaire Answer Date [...] Comments Blood Pressure 135/64 01/30/2023 2:29 PM DIRECTOR LIFE SALES Pulse 56 01/30/2023 2:29 PM DIRECTOR LIFE SALES Temperature 36.4 ??C (97.5 ??F) 01/30/2023 2:29 PM CS T Respiratory Rate 18 01/30/2023 2:29 PM DIRECTOR LIFE SALES Oxygen Saturation 100% 01/30/2023 2:29 PM DIRECTOR LIFE SALES Inhaled Oxygen Concentration - - Weight - - Height - - Body Mass Index - - documented in this encounter Plan of Treatment Upcoming Encounters Date Type Department Care Team (Late st Contact Info) Description 03/22/2023 7:30 AM DIRECTOR LIFE SALES Appointment Department of Laboratory Medicine and Pathology, [facility] in [place], [place] [address] [place] [address] Mari Noguera M.D. [address] [place] [phone] 03/22/2023 8:45 AM DIRECTOR LIFE SALES Hospital Encounter Outpatient Procedure Center in [place], [place] [address] [place] [address] Mari Noguera M.D. [address] [place] [phone] 03/31/2023 10:10 AM DIRECTOR LIFE SALES Appointment Department of Laboratory Medicine in [address] [phone] Mari Noguera M.D. [address] [place] [phone] 04/04/2023 3:20 PM DIRECTOR LIFE SALES Office Visit Department of Oncology in [address] [place] [phone] Mari Noguera M.D. [address] [place] [phone] 04/04/2023 3:45 PM DIRECTOR LIFE SALES Infusion Department of Infusion Therapy in [address] [phone] Mari Noguera M.D. [address] [place] [phone] 04/13/2023 10:10 AM DIRECTOR LIFE SALES Appointment Department of Laboratory Medicine in [address] [place] [address] Mari Noguera M.D. [address] [place] [phone] 04/14/2023 9:00 AM DIRECTOR LIFE SALES Infusion Department of Infusion Therapy in [address] [phone] Mari Noguera M.D. [address] [place] [phone] documented as of this encounter Visit Diagnoses [...] Rotate injection site. Given 01/30/2023 3:09 PM DIRECTOR LIFE SALES 2 mg Left Upper Abdomen documented in this encounter Additional Health Concerns Infection Onset Date Last Indicated Resolved Time Protective Environment 06/03/2022 06/03/2022 documented as of this encounter Care Teams Apprentice Carpenter Relationship Specialty Start Date End Date Elsewhere, Pcp PCP - General Internal Medicine 04/01/22 documented as of this encounter
--- OUTSIDE RECORDS SUMMARY | 2023-03-21 10:32 | XMS_ITS | Encounter Summary ---
Author Name Unknown Organization [facility] Address [address] [place] [address] Care Team Providers Care Spear Fisher Name Role Phone Elsewhere, Pcp Primary Care Provider Unavailabl e Encounter Details Date Type Department Care Team (Late st Contact Info) Description 01/30/2023 Orders Only Department of Oncology in [place], [place] [address] [place] [address] Mari Noguera M.D. [address] [place] [address] [phone] Social History Tobacco Use Types Packs/Day Years [...] st Contact Info) Description 03/22/2023 7:30 AM ROUTE SALES DRIVER Appointment Department of Laboratory Medicine and Pathology, [facility], in [place], [place] [address] [place] [address] Mari Noguera M.D. [address] [place] [phone] 03/22/2023 8:45 AM ROUTE SALES DRIVER Hospital Encounter Outpatient Procedure Center in [place], [place] [address] [place] [address] Mari Noguera M.D. [place] [phone] 03/31/2023 10:10 AM ROUTE SALES DRIVER Appointment Department of Laboratory Medicine in [address] [address] Mari Noguera M.D. [address] [place] [address] [phone] 04/04/2023 3:20 PM ROUTE SALES DRIVER Office Visit Department of Oncology in [address] [phone] Mari Noguera M.D. [address] [place] [phone] 04/04/2023 3:45 PM ROUTE SALES DRIVER Infusion Department of Infusion Therapy in [address] [address] Mari Noguera M.D. [address] [place] [phone] 04/13/2023 10:10 AM ROUTE SALES DRIVER Appointment Department of Laboratory Medicine in [address] [phone] Mari Noguera M.D. [address] [place] [address] [phone] 04/14/2023 9:00 AM ROUTE SALES DRIVER Infusion Department of Infusion Therapy in [address] [phone] Mari Noguera M.D. [address] [place] [phone] documented as of this encounter Visit Diagnoses Not on filedocumented in this encounter Additional Health Concerns Infection Onset Date Last Indicated Resolved Time Protective Environment 06/03/2022 06/03/2022 documented as of this encounter Care Teams Spear Fisher Relationship Specialty Start Date End Date Elsewhere, Pcp PCP - General Internal Medicine 04/01/22 documented as of this encounter
--- OUTSIDE RECORDS SUMMARY | 2023-03-21 10:32 | XMS_ITS | Encounter Summary ---
Author Name Unknown Organization [facility] Address [address] [place] [address] Care Team Providers Care Process Improvement Specialist Name Role Phone Elsewhere, Pcp Primary Care Provider Unavailabl e Reason for Visit * Reason Onset Date Comments Medical Certification Form 02/14/2023 Open Arms Encounter Details Date Type Department Care Team (Latest Contact Info) Description 02/14/2023 Clinical Communication Department of Oncology in [place], [place] [address] [place] [address] Mari Noguera M.D. [address] [place] [address] Medical Certification Form (Open Arms) [...] placed to copy to be scanned. Fax- [phone] [place] SUPERVISOR documented in this encounter Plan of Treatment Upcoming Encounters Date Type Department Care Team (Late st Contact Info) Description 03/22/2023 7:30 AM RETAIL SUPERVISOR Appointment Department of Laboratory Medicine and Pathology, [facility], in [place], [place] [address] [place] [address] Mari Noguera M.D. [address] [place] [phone] 03/22/2023 8:45 AM RETAIL SUPERVISOR Hospital Encounter Outpatient Procedure Center in [place], [place] [address] [place] [address] Mari Noguera M.D. [address] [place] [phone] 03/31/2023 10:10 AM RETAIL SUPERVISOR Appointment Department of Laboratory Medicine in [place], [place] [address] [place] [address] Mari Noguera M.D. [address] [place] [phone] 04/04/2023 3:20 PM RETAIL SUPERVISOR Office Visit Department of Oncology in [address] [phone] Mari Noguera M.D. [address] [place] [address] [phone] 04/04/2023 3:45 PM RETAIL SUPERVISOR Infusion Department of Infusion Therapy in [address] [phone] Mari Noguera M.D. [address] [place] [phone] 04/13/2023 10:10 AM RETAIL SUPERVISOR Appointment Department of Laboratory Medicine in [place] [address] [facility] [place] [address] Mari Noguera M.D. [address] [place] [phone] 04/14/2023 9:00 AM RETAIL SUPERVISOR Infusion Department of Infusion Therapy in [address] [phone] Mari Noguera M.D. [address] [place] [address] [phone] documented as of this encounter Visit Diagnoses Not on filedocumented in this encounter Additional Health Concerns Infection Onset Date Last Indicated Resolved Time Protective Environment 06/03/2022 06/03/2022 documented as of this encounter Care Teams Process Improvement Specialist Relationship Specialty Start Date End Date Elsewhere, Pcp PCP - General Internal Medicine 04/01/22 documented as of this encounter
--- OUTSIDE RECORDS SUMMARY | 2023-03-21 10:33 | XMS_ITS | Encounter Summary ---
Author Name Unknown Organization [facility] Address [address] [place] [address] Care Team Providers Care Rooming House Keeper Name Role Phone Elsewhere, Pcp Primary Care Provider Unavailabl e Reason for Visit * Reason Onset Date Comments Lab Question 01/20/2023 Encounter Details Date Type Department Care Team (Late st Contact Info) Description 01/20/2023 Clinical Communication Department of Oncology in [place], [place] [address] [place] [address] Mari Noguera M.D. [address] [place] [address] Lab Question Social History Tobacco [...] often do you attend [facility] or confucianism services? 1 to 4 times [...] st Contact Info) Description 03/22/2023 7:30 AM RESEARCH PSYCHOLOGIST Appointment Department of Laboratory Medicine and Pathology, [facility], in [place], [place] [address] [place] [address] Mari Noguera M.D. [facility] [place] [phone] 03/22/2023 8:45 AM RESEARCH PSYCHOLOGIST Hospital Encounter Outpatient Procedure Center in [place], [place] [address] [place] [address] Mari Noguera M.D. [address] [place] [phone] 03/31/2023 10:10 AM RESEARCH PSYCHOLOGIST Appointment Department of Laboratory Medicine in [address] [phone] Mari Noguera M.D. [address] [place] [phone] 04/04/2023 3:20 PM RESEARCH PSYCHOLOGIST Office Visit Department of Oncology in [address] [address] Mari Noguera M.D. [address] [place] [phone] 04/04/2023 3:45 PM RESEARCH PSYCHOLOGIST Infusion Department of Infusion Therapy in [address] [phone] Mari Noguera M.D. [address] [place] [phone] 04/13/2023 10:10 AM RESEARCH PSYCHOLOGIST Appointment Department of Laboratory Medicine in [address] [phone] Mari Noguera M.D. [facility] [address] 04/14/2023 9:00 AM RESEARCH PSYCHOLOGIST Infusion Department of Infusion Therapy in [address] [phone] Mari Noguera M.D. [address] [place] [address] documented as of this encounter Visit Diagnoses Not on filedocumented in this encounter Additional Health Concerns Infection Onset Date Last Indicated Resolved Time Protective Environment 06/03/2022 06/03/2022 documented as of this encounter Care Teams Rooming House Keeper Relationship Specialty Start Date End Date Elsewhere, Pcp PCP - General Internal Medicine 04/01/22 documented as of this encounter
--- OUTSIDE RECORDS SUMMARY | 2023-03-21 10:33 | XMS_ITS | Encounter Summary ---
Author Name Unknown Organization [facility] Address [address] [place] [address] Care Team Providers Care Lieutenant/Deputy Name Role Phone Elsewhere, Pcp Primary Care Provider Unavailabl e Reason for Visit * Episode Based Medications (Routine) - Authorized Specialty Diagnoses / Procedures Referred By Guillermina zamora Referred To Contact Diagnoses Multiple Myeloma Not Having Achieved Remission (HCC) Procedures VA ONDANSETRON HCL INJECTION VA DARATUMUMAB, HYALURONIDASE VA BORTEZOMIB INJECTION 1,800 mg on Day 1, 8, 15, 22 for cycles 1 & 2, Day 1, 15 3-6, Day 1 for cycle 7 / 28 day cycles / 17 total visits Mari Noguera M.D. [address] [place] [address] [facility] Region Referral ID Status Reason Start Date Expiration Date V isits Requested Visits Authorized [id number] Authorized 05/28/2021 02/27/2024 31 31 Encounter Details Date Type Department Care Team (Latest Contact Info) Description 01/20/2023 9:50 AM SIGHTER - 01/20/2023 11:59 PM SIGHTER Hospital Encounter Department of Laboratory Medicine in [place], [place] [address] [place] [phone] Mari Noguera M.D. [address] [place] [phone] Multiple Myeloma Not Having Achieved [...] How often do you attend chur or jainism services? 1 to 4 times [...] [facility] of Occupat ional Health - Occupational [...] or open. 21 capsule 0 12/27/2022 02/01/2023 magnesium chloride (SLOW-MAG) 71.[address] tablet Take 2 tablets (143 mg total) by mouth every morning before breakfast. Do not crush or chew. 30 tablet 1 01/28/2022 03/16/2023 penicillin V potassium (VEETIDS) 500 mg tablet TAKE 1 TABLET BY MOUTH TWICE DAILY 60 tablet 2 12/08/2022 01/27/2023 documented as of this encounter Plan of Treatment Upcoming Encounters Date Type Department Care Team (Late st Contact Info) Description 03/22/2023 7:30 AM SIGHTER Appointment Department of Laboratory Medicine and Pathology, [facility] in [place], [place] [address] [place] [address] Mari Noguera M.D. [address] [place] [phone] 03/22/2023 8:45 AM [facility] Hospital Encounter Outpatient Procedure Center in [place], [place] [address] [place] [address] Mari Noguera M.D. [address] [place] [phone] 03/31/2023 10:10 AM SIGHTER Appointment Department of Laboratory Medicine in [address] [place] [address] Mari Noguera M.D. [address] [place] [phone] 04/04/2023 3:20 PM SIGHTER Office Visit Department of Oncology in [address] [phone] Mari Noguera M.D. [address] [place] [address] [phone] 04/04/2023 3:45 PM SIGHTER Infusion Department of Infusion Therapy in [address] [phone] Mari Noguera M.D. [address] [place] [address] [phone] 04/13/2023 10:10 AM SIGHTER Appointment Department of Laboratory Medicine in [address] [phone] Mari Noguera M.D. [address] [place] [phone] 04/14/2023 9:00 AM SIGHTER Infusion Department of Infusion Therapy in [address] [phone] Mari Noguera M.D. [address] [place] [phone] documented as of this encounter Procedures Procedure Name Priority Date/Time Associated Diagnosis Comments MONOCLONAL GAMMOPATHY DIAGNOSTIC, S Routine 01/20/2023 10:03 AM SIGHTER Multiple Myeloma Not Having Achieved Remission (HCC) Diarrhea CBC WITH DIFFERENTIAL, B Routine 01/20/2023 10:03 AM SIGHTER Multiple Myeloma Not Having Achieved Remission (HCC) COMPREHENSIVE METABOLIC PANEL, S/P Routine 01/20/2023 10:03 AM SIGHTER Multiple Myeloma Not Having Achieved Remission (HCC) documented in this encounter Results * (ABNORMAL) Monoclonal Gammopathy Diagnostic (01/20/2023 10:03 AM SIGHTER) Therapeutic Antibody Administered? Unspecified 01/23/2023 7:47 AM SIGHTER SDSC Total Protein, S 6.4 6.3 - 7.9 g/dL 01/23/2023 9:41 AM SIGHTER SDSC [place] Free Light Chain, S 1.45 0.3300 - 1.94 mg/dL 01/23/2023 11:12 AM SIGHTER SDSC Lambda Free Light Chain, S 1.41 0.5700 - 2.63 mg/dL 01/23/2023 11:12 AM SIGHTER SDSC [place]/Lambda FLC Ratio 1.03 0.2600 - 1.65 01/23/2023 11:12 AM SIGHTER SDSC Albumin 3.3(L) 3.4 - 4.7 g/dL 01/23/2023 1:40 PM SIGHTER SDSC Alpha-1 Globulin 0.3 0.1 - 0.3 g/dL 01/23/2023 1:40 PM SIGHTER SDSC Alpha-2 Globulin 1.1(H) 0.6 - 1.0 g/dL 01/23/2023 1:40 PM SIGHTER SDSC Beta-Globulin 1.0 0.7 - 1.2 g/dL 01/23/2023 1:40 PM SIGHTER SDSC Gamma-Globulin 0.8 0.6 - 1.6 g/dL 01/23/2023 1:40 PM SIGHTER SDSC A/G Ratio 1.05 01/23/2023 1:40 PM SIGHTER SDSC Impression Small abnormality in gamma fraction. See Isotype. 01/23/2023 1:40 PM SIGHTER SDSC Flag, M-protein Isotype Positive(A) Negative 01/24/2023 3:10 PM SIGHTER SDSC M-protein Isotype MALDI-TOF MS IgG lambda, monoclonal. 01/24/2023 3:10 PM [facility] Comment: ----ADDITIONAL INFORMATION---- The submitted sample was assayed by five separate immunopurifications for IgG, IgA, IgM, kappa and lambda. ??The result reflects the findings of either no monoclonal protein detected or those monoclonal immunoglobulins that were detected. This test was developed and its performance characteristics determined by [facility] in a manner consistent with CLIA requirements. This test has not been cleared or approved by the U.S. Food and Drug Administration. Blood (Blood, Venous) 01/20/2023 10:03 AM SIGHTER 01/23/2023 8:47 AM SIGHTER Narrative [facility] - 01/24/2023 3:10 PM SIGHTER Specimen Information: Specimen ID: [id number] Specimen Type: Blood Specimen Collection Start Date: 01/20/2023 10:03 AM Specimen Received Date: 01/23/2023 ??8:47 AM Specimen ID: [id number] Specimen Type: Blood Specimen Collection Start Date: 01/20/2023 10:03 AM Specimen Received Date: 01/23/2023 ??7:47 AM Mari Noguera M.D. LAB BLOOD ADD-ON [facility] [address] [place] [address] [facility] [address] [place], [place] [phone] [place] [address] [address] [facility] [place] [address] * (ABNORMAL) Comprehensive Metabolic Panel (01/20/2023 10:03 AM SIGHTER) Pathologist [facility] Potassium, P 4.2 3.6 - 5.2 mmol/L 01/20/2023 10:34 AM SIGHTER RDWG Sodium, P 141 135 - 145 mmol/L 01/20/2023 10:34 AM SIGHTER RDWG Chloride, P 104 98 - 107 mmol/L 01/20/2023 10:34 AM SIGHTER RDWG Bicarbonate, P 29 22 - 29 mmol/L 01/20/2023 10:34 AM SIGHTER RDWG Anion Gap, P 8 7 - 15 01/20/2023 10:34 AM SIGHTER RDWG BUN (Blood Urea Nitrogen), P 30(H) 6 - 21 mg/dL 01/20/2023 10:34 AM SIGHTER RDWG Creatinine 1.25(H) 0.59 - 1.04 mg/dL 01/20/2023 10:34 AM SIGHTER RDWG Estimated GFR (eGFR) 45(L) >=60 mL/min/BS A 01/20/2023 10:34 AM SIGHTER RDWG Comment: Estimated GFR calculated using the 2020 CKD_EPI creatinine equation. Calcium, Total, P 9.5 8.8 - 10.2 mg/dL 01/20/2023 10:34 AM SIGHTER RDWG Glucose, P 104 70 - 140 mg/dL 01/20/2023 10:34 AM SIGHTER RDWG Protein, Total, P 6.7 6.3 - 7.9 g/dL 01/20/2023 10:34 AM SIGHTER RDWG Albumin, P 4.1 3.5 - 5.0 g/dL 01/20/2023 10:34 AM SIGHTER RDWG Aspartate Aminotransferase (AST), P 19 8 - 43 U/L 01/20/2023 10:34 AM SIGHTER RDWG Alkaline Phosphatase, P 64 35 - 104 U/L 01/20/2023 10:34 AM SIGHTER RDWG Alanine Aminotransferase (ALT), P 15 7 - 45 U/L 01/20/2023 10:34 AM SIGHTER RDWG Bilirubin, Total, P 0.3 0.0 - 1.2 mg/dL 01/20/2023 10:34 AM SIGHTER RDWG Blood (Blood, Venous) 01/20/2023 10:03 AM SIGHTER 01/20/2023 10:06 AM SIGHTER Mari Noguera M.D. LAB BLOOD ADD-ON [facility] [address] [facility] [place] [address], [facility] RDWG [facility] [place] [address] [place] [address] * (ABNORMAL) CBC with Differential, Blood (01/20/2023 10:03 AM SIGHTER) Hemoglobin 11.5(L) 11.6 - 15.0 g/dL 01/20/2023 10:18 AM SIGHTER RDWG Hematocrit 35.8 35.5 - 44.9 % 01/20/2023 10:18 AM SIGHTER RDWG Erythrocytes 3.56(L) 3.92 - 5.13 x10(12)/L 01/20/2023 10:18 AM SIGHTER RDWG MCV 100.6(H) 78.2 - 97.9 fL 01/20/2023 10:18 AM SIGHTER RDWG RBC Distrib Width 15.9 12.2 - 16.1 % 01/20/2023 10:18 AM SIGHTER RDWG Platelet Count 56(L) 157 - 371 x10(9)/L 01/20/2023 10:18 AM SIGHTER RDWG Leukocytes 2.8(L) 3.4 - 9.6 x10(9)/L 01/20/2023 10:18 AM SIGHTER RDWG Neutrophils 1.38(L) 1.56 - 6.45 x10(9)/L 01/20/2023 10:18 AM SIGHTER RDWG Lymphocytes 0.98 0.95 - 3.07 x10(9)/L 01/20/2023 10:18 AM SIGHTER RDWG Monocytes 0.34 0.26 - 0.81 x10(9)/L 01/20/2023 10:18 AM SIGHTER RDWG Eosinophils 0.10 0.03 - 0.48 x10(9)/L 01/20/2023 10:18 AM SIGHTER RDWG Basophils <0.03 0.01 - 0.08 x10(9)/L 01/20/2023 10:18 AM SIGHTER RDWG Blood (Blood, Venous) 01/20/2023 10:03 AM SIGHTER 01/20/2023 10:06 AM SIGHTER Mari Noguera M.D. LAB BLOOD ADD-ON [facility] [address] [place] [address], [facility] [place] [address] [place] [address] documented in this encounter Visit Diagnoses Diagnosis Multiple Myeloma Not Having Achieved Remission (HCC) Diarrhea documented in this encounter Additional Health Concerns Infection Onset Date Last Indicated Resolved Time Protective Environment 06/03/2022 06/03/2022 documented as of this encounter Care Teams Lieutenant/Deputy Relationship Specialty Start Date End Date Elsewhere, Pcp PCP - General Internal Medicine 04/01/22 documented as of this encounter
--- OUTSIDE RECORDS SUMMARY | 2023-03-21 10:33 | XMS_ITS | Encounter Summary ---
Author Name Unknown Organization [facility] Address [address] [place] [address] Care Team Providers Care Vegetable Packer Name Role Phone Elsewhere, Pcp Primary Care Provider Unavailabl e Reason for Visit * Reason Comments Med Refill Encounter Details Date Type Department Care Team (Late st Contact Info) Description 01/23/2023 Refill Department of Oncology in [place], [place] [address] [place] [phone] Mari Noguera M.D. [address] [place] [address] Med Refill Social History Tobacco [...] you attend [facility] or rastafari services? 1 to 4 times per year 06/11/2021 Do you belong to any clubs o r organizations such as orthodoxy groups, unions, fraternal or athletic groups, or [...] 11/18/2021 [facility] of Occupat ionmo Health - Occupational Stress Questionnaire Answer Date [...] st Contact Info) Description 03/22/2023 7:30 AM CHRISTIAN COUNSELOR Appointment Department of Laboratory Medicine and Pathology, [facility], in [place], [place] [address] [place] [address] Mari Noguera M.D. [address] [place] [phone] 03/22/2023 8:45 AM CHRISTIAN COUNSELOR Hospital Encounter Outpatient Procedure Center in [place], [place] [address] [place] [address] Mari Noguera M.D. [facility] [place] [phone] 03/31/2023 10:10 AM CHRISTIAN COUNSELOR Appointment Department of Laboratory Medicine in [address] [place] [address] Mari Noguera M.D. [address] [place] [phone] 04/04/2023 3:20 PM CHRISTIAN COUNSELOR Office Visit Department of Oncology in [address] [phone] Mari Noguera M.D. [address] [place] [phone] 04/04/2023 3:45 PM CHRISTIAN COUNSELOR Infusion Department of Infusion Therapy in [address] [address] Mari Noguera M.D. [address] [place] [phone] 04/13/2023 10:10 AM CHRISTIAN COUNSELOR Appointment Department of Laboratory Medicine in [address] [address] Mari Noguera M.D. [facility] [place] [address] 04/14/2023 9:00 AM CHRISTIAN COUNSELOR Infusion Department of Infusion Therapy in [address] [phone] Mari Noguera M.D. [address] [place] [phone] documented as of this encounter Visit Diagnoses Diagnosis Multiple Myeloma Not Having Achieved Remission (HCC) documented in this encounter Additional Health Concerns Infection Onset Date Last Indicated Resolved Time Protective Environment 06/03/2022 06/03/2022 documented as of this encounter Care Teams Vegetable Packer Relationship Specialty Start Date End Date Elsewhere, Pcp PCP - General Internal Medicine 04/01/22 documented as of this encounter
--- OUTSIDE RECORDS SUMMARY | 2023-03-21 10:33 | XMS_ITS | Encounter Summary ---
Author Name Unknown Organization [facility] Address [address] [place] [address] Care Team Providers Care Compressed Gases Tester Name Role Phone Elsewhere, Pcp Primary Care Provider Unavailabl e Encounter Details Date Type Department Care Team (Latest Contact Info) Description 01/18/2023 9:33 AM PET TECHNOLOGIST - 01/18/2023 11:59 PM [facility] Hospital Encounter Department of Laboratory Medicine in [place], [place] [address] [place] [address] Mari Noguera M.D. [address] [place] [address] Discharge Disposition: Home or Self [...] Answer Date Recorded PHQ-2 Score 4 11/18/2021 [facility] of Occupat ional Health - Occupational [...] st Contact Info) Description 03/22/2023 7:30 AM PET TECHNOLOGIST Appointment Department of Laboratory Medicine and Pathology, [facility] in [place], [place] [address] [place] [address] Mari Noguera M.D. [address] [place] [phone] 03/22/2023 8:45 AM PET TECHNOLOGIST Hospital Encounter Outpatient Procedure Center in [place], [place] [address] [place] [address] Mari Noguera M.D. [address] [place] [phone] 03/31/2023 10:10 AM PET TECHNOLOGIST Appointment Department of Laboratory Medicine in [place], [place] [address] [place] [phone] Mari Noguera M.D. [address] [place] [phone] 04/04/2023 3:20 PM PET TECHNOLOGIST Office Visit Department of Oncology in [address] [phone] Mari Noguera M.D. [address] [place] [phone] 04/04/2023 3:45 PM PET TECHNOLOGIST Infusion Department of Infusion Therapy in [place] [address] [place] [phone] Mari Noguera M.D. [address] [place] [phone] 04/13/2023 10:10 AM PET TECHNOLOGIST Appointment Department of Laboratory Medicine in [address] [place] [address] Mari Noguera M.D. [address] [place] [phone] 04/14/2023 9:00 AM PET TECHNOLOGIST Infusion Department of Infusion Therapy in [place] [address] [place] [phone] Mari Noguera M.D. [address] [place] [phone] documented as of this encounter Visit Diagnoses Not on filedocumented in this encounter Additional Health Concerns Infection Onset Date Last Indicated Resolved Time Protective Environment 06/03/2022 06/03/2022 documented as of this encounter Care Teams Compressed Gases Tester Relationship Specialty Start Date End Date Elsewhere, Pcp PCP - General Internal Medicine 04/01/22 documented as of this encounter
--- OUTSIDE RECORDS SUMMARY | 2023-03-21 10:33 | XMS_ITS | Encounter Summary ---
Author Name Unknown Organization [facility] Address [address] [place] [address] Care Team Providers Care Application Assistant Name Role Phone Elsewhere, Pcp Primary Care Provider Unavailabl e Encounter Details Date Type Department Care Team (Latest Contact Info) Description 01/13/2023 8:52 AM MOTION PICTURES CARTOONIST - 01/13/2023 11:59 PM [facility] Hospital Encounter Department of Laboratory Medicine in [place], [place] [address] [place] [address] Mari Noguera M.D. [address] [place] [address] Multiple Myeloma Not Having Achieved [...] any clubs o r organizations such as latter-day groups, unions, fraternal or athletic groups, or [...] Answer Date Recorded PHQ-2 Score 4 11/18/2021 [facility] ional [facility] - [...] st Contact Info) Description 03/22/2023 7:30 AM MOTION PICTURES CARTOONIST Appointment Department of Laboratory Medicine and Pathology, [facility] in [place], [place] [address] [place] [address] Mari Noguera M.D. [address] [place] [phone] 03/22/2023 8:45 AM MOTION PICTURES CARTOONIST Hospital Encounter Outpatient Procedure Center in [place], [place] [address] [place] [address] Mari Noguera M.D. [address] [place] [phone] 03/31/2023 10:10 AM MOTION PICTURES CARTOONIST Appointment Department of Laboratory Medicine in [address] [phone] Mari Noguera M.D. [address] [place] [phone] 04/04/2023 3:20 PM MOTION PICTURES CARTOONIST Office Visit Department of Oncology in [address] [phone] Mari Noguera M.D. [address] [place] [phone] 04/04/2023 3:45 PM MOTION PICTURES CARTOONIST Infusion Department of Infusion Therapy in [address] [phone] Mari Noguera M.D. [address] [place] [phone] 04/13/2023 10:10 AM MOTION PICTURES CARTOONIST Appointment Department of Laboratory Medicine in [address] [place] [phone] Mari Noguera M.D. [address] [place] [phone] 04/14/2023 9:00 AM MOTION PICTURES CARTOONIST Infusion Department of Infusion Therapy in [address] [phone] Mari Noguera M.D. [address] [place] [phone] documented as of this encounter Procedures Procedure Name Priority Date/Time Associated Diagnosis Comments GI PATHOGEN PANEL, PCR, F Routine 01/18/2023 3:00 PM MOTION PICTURES CARTOONIST Multiple Myeloma Not Having Achieved Remission (HCC) Diarrhea documented in this encounter Results * GI Pathogen Panel, PCR, Feces (01/18/2023 3:00 PM MOTION PICTURES CARTOONIST) Specimen Source STOOL 1:03 PM MOTION PICTURES CARTOONIST RDW[facility] Campylobacter species Negative Negative 01/20/2023 1:03 PM MOTION PICTURES CARTOONIST [facility] C. difficile toxin Negative Negative 2022 1:03 PM MOTION PICTURES CARTOONIST [facility] Plesiomonas shigelloides Negative Negative 01/20/2023 1:03 PM MOTION PICTURES CARTOONIST [facility] Salmonella species Negative Negative 2022 1:03 PM MOTION PICTURES CARTOONIST [facility] Vibrio species Negative Negative 01/20/2023 1:03 PM MOTION PICTURES CARTOONIST [facility] Vibrio cholerae Negative Negative 1:03 PM MOTION PICTURES CARTOONIST R[facility] Yersinia species Negative Negative 01/21/20 1:03 PM MOTION PICTURES CARTOONIST [facility] Enteroaggregative E. coli (EAEC) Negative Negative 01/20/2023 1:03 PM MOTION PICTURES CARTOONIST R[facility] Enteropathogenic E. coli (EPEC) Negative Negative 01/20/2023 1:03 PM MOTION PICTURES CARTOONIST [facility] Enterotoxigenic E. coli (ETEC) Negative Negative 01/20/2023 1:03 PM MOTION PICTURES CARTOONIST [facility] Shiga toxin producing E. coli Negative Negative 01/20/2023 1:03 PM MOTION PICTURES CARTOONIST [facility] Shigella/Enteroinvas carlos E. coli Negative Negative 01/20/2023 1:03 PM MOTION PICTURES CARTOONIST [facility] Cryptosporidium species Negative Negative 01/20/2023 1:03 PM MOTION PICTURES CARTOONIST [facility] Cyclospora cayetanensis Negative Negative 01/20/2023 1:03 PM MOTION PICTURES CARTOONIST [facility] Entamoeba histolytica Negative Negative 01/20/2023 1:03 PM MOTION PICTURES CARTOONIST [facility] Giardia Negative Negative 01/20/2023 1:03 PM MOTION PICTURES CARTOONIST [facility] Adenovirus F40/41 Negative Negative 023 1:03 PM MOTION PICTURES CARTOONIST [facility] Astrovirus Negative Negative 01/20/2023 1:03 PM MOTION PICTURES CARTOONIST [facility] Norovirus GI/GII Negative Negative 01/21/20 1:03 PM MOTION PICTURES CARTOONIST [facility] Rotavirus Ag, F Negative Negative 1:03 PM MOTION PICTURES CARTOONIST [facility] Sapovirus Negative Negative 01/20/2023 1:03 PM MOTION PICTURES CARTOONIST R[facility] Comment: ----ADDITIONAL INFORMATION---- This assay is performed using the FDA-cleared uFaberArray GI Panel ([employer] Stool (Stool) 01/18/2023 3:0 0 PM MOTION PICTURES CARTOONIST 01/20/2023 9:53 AM MOTION PICTURES CARTOONIST Mari Noguera M.D. LAB MICROBIOLOGY - G ENERAL ORDERABLES [facility] [address] [address], [facility] RDWG [address] [phone] documented in this encounter Visit Diagnoses Diagnosis Multiple Myeloma Not Having Achieved Remission (HCC) Diarrhea documented in this encounter Additional Health Concerns Infection Onset Date Last Indicated Resolved Time Protective Environment 06/03/2022 06/03/2022 documented as of this encounter Care Teams Application Assistant Relationship Specialty Start Date End Date Elsewhere, Pcp PCP - General Internal Medicine 04/01/22 documented as of this encounter
--- OUTSIDE RECORDS SUMMARY | 2023-03-21 10:33 | XMS_ITS | Encounter Summary ---
Author Name Unknown Organization [facility] Address [address] [place] [address] Care Team Providers Care Reverse Logistics Analyst Name Role Phone Elsewhere, Pcp Primary Care Provider Unavailabl e Encounter Details Date Type Department Care Team (Late st Contact Info) Description 01/20/2023 Clinical Communication Department of Oncology in [place], [place] [address] [place] [phone] Mari Noguera M.D. [address] [place] [phone] Social History Tobacco Use Types [...] Answer Date Recorded PHQ-2 Score 4 11/18/2021 [facility] Occupat ional Health - Occupational [...] st Contact Info) Description 03/22/2023 7:30 AM ELECTRIC LOCOMOTIVE FIRER/FIREMAN Appointment Department of Laboratory Medicine and Pathology, [facility], in [place], [place] [address] [place] [address] Mari Noguera M.D. [address] [place] [phone] 03/22/2023 8:45 AM ELECTRIC LOCOMOTIVE FIRER/FIREMAN Hospital Encounter Outpatient Procedure Center in [place], [place] [address] [place] [address] Mari Noguera M.D. [address] [place] [phone] 03/31/2023 10:10 AM ELECTRIC LOCOMOTIVE FIRER/FIREMAN Appointment Department of Laboratory Medicine in [address] [phone] Mari Noguera M.D. [address] [place] [phone] 04/04/2023 3:20 PM ELECTRIC LOCOMOTIVE FIRER/FIREMAN Office Visit Department of Oncology in [address] [phone] Mari Noguera M.D. [address] [place] [phone] 04/04/2023 3:45 PM ELECTRIC LOCOMOTIVE FIRER/FIREMAN Infusion Department of Infusion Therapy in [address] [phone] Mari Noguera M.D. [address] [place] [phone] 04/13/2023 10:10 AM ELECTRIC LOCOMOTIVE FIRER/FIREMAN Appointment Department of Laboratory Medicine in [address] [phone] Mari Noguera M.D. [address] [place] [phone] 04/14/2023 9:00 AM ELECTRIC LOCOMOTIVE FIRER/FIREMAN Infusion Department of Infusion Therapy in [address] [phone] Mari Noguera M.D. [facility] [place] [phone] documented as of this encounter Visit Diagnoses Not on filedocumented in this encounter Additional Health Concerns Infection Onset Date Last Indicated Resolved Time Protective Environment 06/03/2022 06/03/2022 documented as of this encounter Care Teams Reverse Logistics Analyst Relationship Specialty Start Date End Date Elsewhere, Pcp PCP - General Internal Medicine 04/01/22 documented as of this encounter
--- OUTSIDE RECORDS SUMMARY | 2023-03-21 10:33 | XMS_ITS | Encounter Summary ---
Author Name Unknown Organization [facility] Address [address] [place] [address] Care Team Providers Care Tour Escort Name Role Phone Elsewhere, Pcp Primary Care [...] / 17 total visits Mari Noguera M.D. [address] [place] [address] [facility] Region Referral ID Status Reason Start Date Expiration Date V isits Requested Visits Authorized [id number] Authorized 05/28/2021 02/27/2024 31 31 Encounter Details Date Type Department Care Team (Late st Contact Info) Description 01/27/2023 8:40 AM LOADER OPERATOR SUPERVISOR Office Visit Department of Oncology in [place], [place] [address] [place] [address] Mari Noguera M.D. [address] [place] [phone] Multiple Myeloma Not Having Achieved [...] 4 11/18/2021 [facility] - Occupational [...] Comments Blood Pressure 120/81 01/27/2023 8:37 AM LOADER OPERATOR SUPERVISOR Pulse 53 01/27/2023 8:37 AM LOADER OPERATOR SUPERVISOR Temperature 36.3 ??C (97.3 ??F) 01/27/2023 8:37 AM CS T Respiratory Rate - - Oxygen Saturation 99% 01/27/2023 8:37 AM LOADER OPERATOR SUPERVISOR Room Air Inhaled Oxygen Concentration - - Weight 80.8 kg (178 lb 2.1 oz) 01/27/2023 8:37 A M LOADER OPERATOR SUPERVISOR Height - - Body Mass Index 32.2 [...] chains: kappa: 8.01 mg/L; lambda: 33.64 mg/L; [place]:Lambda Ratio: 0.24 SPEP: M-spike: 3.26 g/dL Immunofixation: [...] with VGPR post ASCT day 0 12/02/2021 ([facility]) Ms. Treadwell is receiving maintenance therapy [...] aspirin 325 mg daily. Mari Noguera M.D. ER OPERATOR SUPERVISOR documented in this encounter Plan of Treatment Upcoming Encounters Date Type Department Care Team (Late st Contact Info) Description 03/22/2023 7:30 AM LOADER OPERATOR SUPERVISOR Appointment Department of Laboratory Medicine and Pathology, [facility] in [place], [place] [address] [place] [address] Mari Noguera M.D. [address] [place] [phone] 03/22/2023 8:45 AM LOADER OPERATOR SUPERVISOR Hospital Encounter Outpatient Procedure Center in [place], [place] [address] [place] [address] Mari Noguera M.D. [address] [place] [phone] 03/31/2023 10:10 AM LOADER OPERATOR SUPERVISOR Appointment Department of Laboratory Medicine in [address] [phone] Mari Noguera M.D. [address] [place] [phone] 04/04/2023 3:20 PM LOADER OPERATOR SUPERVISOR Office Visit Department of Oncology in [address] [phone] Mari Noguera M.D. [address] [place] [phone] 04/04/2023 3:45 PM LOADER OPERATOR SUPERVISOR Infusion Department of Infusion Therapy in [address] [phone] Mari Noguera M.D. [address] [place] [phone] 04/13/2023 10:10 AM LOADER OPERATOR SUPERVISOR Appointment Department of Laboratory Medicine in [address] [place] [address] Mari Noguera M.D. [address] [place] [phone] 04/14/2023 9:00 AM LOADER OPERATOR SUPERVISOR Infusion Department of Infusion Therapy in [address] [phone] Mari Noguera M.D. [address] [place] [phone] documented as of this encounter Visit Diagnoses Diagnosis Multiple Myeloma Not Having Achieved Remission (HCC)- Primary Transplant Stem Cell (HCC) Thrombocytopenia (HCC) documented in this encounter Additional Health Concerns Infection Onset Date Last Indicated Resolved Time Protective Environment 06/03/2022 06/03/2022 documented as of this encounter Care Teams Tour Escort Relationship Specialty Start Date End Date Elsewhere, Pcp PCP - General Internal Medicine 04/01/22 documented as of this encounter
--- OUTSIDE RECORDS SUMMARY | 2023-03-21 10:33 | XMS_ITS | Encounter Summary ---
Author Name Unknown Organization [facility] Address [address] [place] [address] Care Team Providers Care Non Ferrous Material Handler Name Role Phone Elsewhere, Pcp Primary Care Provider Unavailabl e Reason for Referral * Outpatient (Routine) Specialty Diagnoses / Procedures Referred By Guillermina zamora Referred To Contact Hematology Oncology Mari Noguera M.D. [address] [place] [address] [phone] [facility] Region Referral ID Status Reason Start Date Expiration Date Visits Re quested Visits Authorized OPERATING ROOM Encounter Details Date Type Department Care Team (Late st Contact Info) Description 01/18/2023 Orders Only Department of Oncology in [address] [phone] Mari Noguera M.D. [address] [place] [phone] Multiple Myeloma Not Having Achieved [...] do you attend [facility] or anglican services? 1 to 4 times per year 06/11/2021 Do you belong to any clubs o r organizations such as holiness groups, unions, fraternal or athletic groups, or [...] st Contact Info) Description 03/22/2023 7:30 AM RN OPERATING ROOM Appointment Department of Laboratory Medicine and Pathology, [facility], in [place], [place] [address] [place] [address] Mari Noguera M.D. [address] [place] [phone] 03/22/2023 8:45 AM RN OPERATING ROOM Hospital Encounter Outpatient Procedure Center in [place], [place] [address] [place] [address] Mari Noguera M.D. [address] [place] [phone] 03/31/2023 10:10 AM RN OPERATING ROOM Appointment Department of Laboratory Medicine in [place], [place] [address] [place] [address] Mari Noguera M.D. [address] [place] [phone] 04/04/2023 3:20 PM RN OPERATING ROOM Office Visit Department of Oncology in [address] [phone] Mari Noguera M.D. [address] [place] [phone] 04/04/2023 3:45 PM RN OPERATING ROOM Infusion Department of Infusion Therapy in [address] [phone] Mari Noguera M.D. [address] [place] [phone] 04/13/2023 10:10 AM RN OPERATING ROOM Appointment Department of Laboratory Medicine in [place], [place] [address] [facility] [place] [phone] Mari Noguera M.D. [address] [place] [phone] 04/14/2023 9:00 AM RN OPERATING ROOM Infusion Department of Infusion Therapy in [address] [phone] Mari Noguera M.D. [address] [place] [phone] Scheduled Referrals Name Type Priority Associated Diagnoses Order Schedule Hematology office visit (clinic) [facility] Region; Pre-Chemo Outpatient Referral Routine Multiple Myeloma Not Having Achieved Remission (HCC) Expected: 03/03/2023, Expires: 03/03/2024 documented as of this encounter Results * (ABNORMAL) Comprehensive Metabolic Panel (03/02/2023 10:56 AM RN OPERATING ROOM) Pathologist [facility] Potassium, P 3.7 3.6 - 5.2 mmol/L 03/02/2023 1:54 PM RN OPERATING ROOM OWAT Sodium, P 141 135 - 145 mmol/L 03/02/2023 1:54 PM RN OPERATING ROOM OWAT Chloride, P 100 98 - 107 mmol/L 03/02/2023 1:54 PM RN OPERATING ROOM OWAT Bicarbonate, P 27 22 - 29 mmol/L 03/02/2023 1:54 PM RN OPERATING ROOM OWAT Anion Gap, P 14 7 - 15 03/02/2023 1:54 PM RN OPERATING ROOM OWAT BUN (Blood Urea Nitrogen), P 36(H) 6 - 21 mg/dL 03/02/2023 1:54 PM RN OPERATING ROOM OWAT Creatinine 1.53(H) 0.59 - 1.04 mg/dL 03/02/2023 1:54 PM RN OPERATING ROOM OWAT Estimated GFR (eGFR) 35(L) >=60 mL/min/BS A 03/02/2023 1:54 PM RN OPERATING ROOM OWAT Comment: Estimated GFR calculated using the 2020 CKD_EPI creatinine equation. Calcium, Total, P 9.8 8.8 - 10.2 mg/dL 03/02/2023 1:54 PM RN OPERATING ROOM OWAT Glucose, P 163(H) 70 - 140 mg/dL 03/02/2023 1:54 PM RN OPERATING ROOM OWAT Protein, Total, P 7.1 6.3 - 7.9 g/dL 03/02/2023 1:54 PM RN OPERATING ROOM OWAT Albumin, P 4.4 3.5 - 5.0 g/dL 03/02/2023 1:54 PM RN OPERATING ROOM OWAT Aspartate Aminotransferase (AST), P 30 8 - 43 U/L 03/02/2023 1:54 PM RN OPERATING ROOM OWAT Alkaline Phosphatase, P 65 35 - 104 U/L 03/02/2023 1:54 PM RN OPERATING ROOM OWAT Alanine Aminotransferase (ALT), P 31 7 - 45 U/L 03/02/2023 1:54 PM RN OPERATING ROOM OWAT Bilirubin, Total, P 0.3 0.0 - 1.2 mg/dL 03/02/2023 1:54 PM RN OPERATING ROOM OWAT Blood (Blood, Venous) 03/02/2023 10:56 AM RN OPERATING ROOM 03/02/2023 1:14 PM RN OPERATING ROOM Mari Noguera M.D. LAB BLOOD ADD-ON [facility] [address] [place] [address], [facility] OWAT [facility] [place] [address] [place] [address] * (ABNORMAL) CBC with Differential, Blood (03/02/2023 10:56 AM RN OPERATING ROOM) Hemoglobin 11.5(L) 11.6 - 15.0 g/dL 03/02/2023 11:08 AM RN OPERATING ROOM FB60 Hematocrit 35.3(L) 35.5 - 44.9 % 03/02/2023 11:08 AM RN OPERATING ROOM FB60 Erythrocytes 3.44(L) 3.92 - 5.13 x10(12)/L 03/02/2023 11:08 AM RN OPERATING ROOM FB60 MCV 102.6(H) 78.2 - 97.9 fL 03/02/2023 11:08 AM RN OPERATING ROOM FB60 RBC Distrib Width 16.1 12.2 - 16.1 % 03/02/2023 11:08 AM RN OPERATING ROOM FB60 Platelet Count 45(L) 157 - 371 x10(9)/L 03/02/2023 11:08 AM RN OPERATING ROOM FB60 Leukocytes 2.3(L) 3.4 - 9.6 x10(9)/L 03/02/2023 11:08 AM RN OPERATING ROOM FB60 Neutrophils 0.90(L) 1.56 - 6.45 x10(9)/L 03/02/2023 11:08 AM RN OPERATING ROOM FB60 Lymphocytes 1.20 0.95 - 3.07 x10(9)/L 03/02/2023 11:08 AM RN OPERATING ROOM FB60 Monocytes 0.12(L) 0.26 - 0.81 x10(9)/L 03/02/2023 11:08 AM RN OPERATING ROOM FB60 Eosinophils 0.05 0.03 - 0.48 x10(9)/L 03/02/2023 11:08 AM RN OPERATING ROOM FB60 Basophils <0.04 0.01 - 0.08 x10(9)/L 03/02/2023 11:08 AM RN OPERATING ROOM FB60 Blood (Blood, Venous) 03/02/2023 10:56 AM RN OPERATING ROOM 03/02/2023 10:56 AM RN OPERATING ROOM Mari Noguera M.D. LAB BLOOD ADD-ON Performing Organization Address City/State/[facility] Co de Phone Number [facility] [address] [place] [address], [facility] FB60 [facility] [place] [address] [place] [address] * (ABNORMAL) CBC with Differential, Blood (02/09/2023 2:36 PM RN OPERATING ROOM) [facility] Hemoglobin 11.4(L) 11.6 - 15.0 g/dL 02/09/2023 3:36 PM RN OPERATING ROOM OWAT Hematocrit 34.9(L) 35.5 - 44.9 % 02/09/2023 3:36 PM RN OPERATING ROOM OWAT Erythrocytes 3.43(L) 3.92 - 5.13 x10(12)/L 02/09/2023 3:36 PM RN OPERATING ROOM OWAT MCV 101.7(H) 78.2 - 97.9 fL 02/09/2023 3:36 PM RN OPERATING ROOM OWAT RBC Distrib Width 16.0 12.2 - 16.1 % 02/09/2023 3:36 PM RN OPERATING ROOM OWAT Platelet Count 53(L) 157 - 371 x10(9)/L 02/09/2023 3:36 PM RN OPERATING ROOM OWAT Leukocytes 5.0 3.4 - 9.6 x10(9)/L 02/09/2023 3:36 PM RN OPERATING ROOM OWAT Neutrophils 3.51 1.56 - 6.45 x10(9)/L 02/09/2023 3:36 PM RN OPERATING ROOM OWAT Lymphocytes 1.03 0.95 - 3.07 x10(9)/L 02/09/2023 3:36 PM RN OPERATING ROOM OWAT Monocytes 0.37 0.26 - 0.81 x10(9)/L 02/09/2023 3:36 PM RN OPERATING ROOM OWAT Eosinophils 0.11 0.03 - 0.48 x10(9)/L 02/09/2023 3:36 PM RN OPERATING ROOM OWAT Basophils <0.03 0.01 - 0.08 x10(9)/L 02/09/2023 3:36 PM RN OPERATING ROOM OWAT Blood (Blood, Venous) 02/09/2023 2:36 PM RN OPERATING ROOM 02/09/2023 2:36 PM RN OPERATING ROOM Mari Noguera M.D. LAB BLOOD ADD-ON [facility] [address] [place] [address], [facility] OWAT [facility] [place] [address] [address] * (ABNORMAL) Immunoglobulins (IgG, IgA, and IgM) (02/09/2023 2:36 PM RN OPERATING ROOM) Immunoglobulin A (IgA), S 41(L) 61 - 356 mg/dL 02/10/2023 9:03 AM RN OPERATING ROOM [facility] Immunoglobulin M (IgM), S 19(L) 37 - 286 mg/dL 02/10/2023 9:03 AM RN OPERATING ROOM [facility] Immunoglobulin G (IgG), S 883 767 - 1590 mg/dL 02/10/2023 9:03 AM RN OPERATING ROOM [facility] Blood (Blood, Venous) 02/09/2023 2:36 PM RN OPERATING ROOM 02/10/2023 6:11 AM RN OPERATING ROOM Mari Noguera M.D. LAB BLOOD ADD-ON [facility] [address] [place] [address] [facility] [address] [place] [address] documented in this encounter Visit Diagnoses Diagnosis Multiple Myeloma Not Having Achieved Remission (HCC)- Primary documented in this encounter Additional Health Concerns Infection Onset Date Last Indicated Resolved Time Protective Environment 06/03/2022 06/03/2022 documented as of this encounter Care Teams Non Ferrous Material Handler Relationship Specialty Start Date End Date Elsewhere, Pcp PCP - General Internal Medicine 04/01/22 documented as of this encounter
--- OUTSIDE RECORDS SUMMARY | 2023-03-21 10:33 | XMS_ITS | Encounter Summary ---
Author Name Unknown Organization [facility] Address [address] [place] [address] Care Team Providers Care Engineer Gas Pumping Station Name Role Phone Elsewhere, Pcp Primary Care Provider Unavailabl e Reason for Referral * Outpatient (Routine) Specialty Diagnoses / Procedures Referred By Guillermina zamora Referred To Contact Hematology Oncology Mari Noguera M.D. [address] [place] [phone] [facility] Region Referral ID Status Reason Start Date Expiration Date Visits Re quested Visits Authorized TER MACHINE Reason for Visit * Reason Comments Other [...] / 17 total visits Mari Noguera M.D. [address] [place] [phone] [facility] Region Referral ID Status Reason Start Date Expiration Date V isits Requested Visits Authorized [id number] Authorized 05/28/2021 02/27/2024 31 31 Encounter Details Date Type Department Care Team (Late st Contact Info) Description 01/20/2023 11:45 AM JOINTER MACHINE Infusion Department of Infusion Therapy in [place], [place] [address] [place] [address] Mari Noguera M.D. [address] [place] [address] Multiple Myeloma Not Having Achieved [...] Answer Date Recorded PHQ-2 Score 4 11/18/2021 [facility] - Occupational Stress Questionnaire [...] st Contact Info) Description 03/22/2023 7:30 AM JOINTER MACHINE Appointment Department of Laboratory Medicine and Pathology, [facility] in [place], [place] [address] [place] [address] Mari Noguera M.D. [address] [place] [phone] 03/22/2023 8:45 AM JOINTER MACHINE Hospital Encounter Outpatient Procedure Center in [place], [place] [address] [place] [address] Mari Noguera M.D. [address] [place] [phone] 03/31/2023 10:10 AM JOINTER MACHINE Appointment Department of Laboratory Medicine in [address] [phone] Mari Noguera M.D. [address] [place] [phone] 04/04/2023 3:20 PM JOINTER MACHINE Office Visit Department of Oncology in [address] [place] [phone] Mari Noguera M.D. [address] [place] [phone] 04/04/2023 3:45 PM JOINTER MACHINE Infusion Department of Infusion Therapy in [address] [phone] Mari Noguera M.D. [address] [place] [phone] 04/13/2023 10:10 AM JOINTER MACHINE Appointment Department of Laboratory Medicine in [address] [facility] [place] [address] Mari Noguera M.D. [address] [place] [phone] 04/14/2023 9:00 AM JOINTER MACHINE Infusion Department of Infusion Therapy in [address] [phone] Mari Noguera M.D. [address] [place] [phone] Scheduled Referrals Name Type Priority Associated Diagnoses Order Schedule Hematology office visit (clinic) [facility] Region; Pre-Chemo Outpatient Referral Routine Multiple Myeloma Not Having Achieved Remission (HCC) Expected: 01/27/2023, Expires: 01/28/2024 documented as of this encounter Results * (ABNORMAL) Comprehensive Metabolic Panel (01/27/2023 8:00 AM JOINTER MACHINE) [facility] Potassium, P 4.2 3.6 - 5.2 mmol/L 01/27/2023 8:26 AM JOINTER MACHINE [facility] Sodium, P 138 135 - 145 mmol/L 01/27/2023 8:26 AM JOINTER MACHINE [facility] Chloride, P 99 98 - 107 mmol/L 01/27/2023 8:26 AM JOINTER MACHINE [facility] Bicarbonate, P 30(H) 22 - 29 mmol/L 01/27/2023 8:26 AM JOINTER MACHINE [facility] Anion Gap, P 9 7 - 15 01/27/2023 8:26 AM JOINTER MACHINE [facility] BUN (Blood Urea Nitrogen), P 34(H) 6 - 21 mg/dL 01/27/2023 8:26 AM JOINTER MACHINE [facility] Creatinine 1.32(H) 0.59 - 1.04 mg/dL 01/27/2023 8:26 AM JOINTER MACHINE [facility] Estimated GFR (eGFR) 42(L) >=60 mL/min/BS A 01/27/2023 8:26 AM JOINTER MACHINE [facility] Comment: Estimated GFR calculated using the 2020 CKD_EPI creatinine equation. Calcium, Total, P 10.0 8.8 - 10.2 mg/dL 01/27/2023 8:26 AM JOINTER MACHINE [facility] Glucose, P 110 70 - 140 mg/dL 01/27/2023 8:26 AM JOINTER MACHINE [facility] Protein, Total, P 6.9 6.3 - 7.9 g/dL 01/27/2023 8:26 AM JOINTER MACHINE [facility] Albumin, P 4.0 3.5 - 5.0 g/dL 01/27/2023 8:26 AM JOINTER MACHINE [facility] Aspartate Aminotransferase (AST), P 17 8 - 43 U/L 01/27/2023 8:26 AM JOINTER MACHINE [facility] Alkaline Phosphatase, P 78 35 - 104 U/L 01/27/2023 8:26 AM JOINTER MACHINE [facility] Alanine Aminotransferase (ALT), P 12 7 - 45 U/L 01/27/2023 8:26 AM JOINTER MACHINE [facility] Bilirubin, Total, P <0.2 0.0 - 1.2 mg/dL 01/27/2023 8:26 AM JOINTER MACHINE [facility] Blood (Blood, Venous) 01/27/2023 8:00 AM JOINTER MACHINE 01/27/2023 8:01 AM JOINTER MACHINE Mari Noguera M.D. LAB BLOOD ADD-ON [email or web address] [address] [place] [address], [facility] [place] [address] [place] [address] * (ABNORMAL) CBC with Differential, Blood (01/27/2023 8:00 AM JOINTER MACHINE) Hemoglobin 12.2 11.6 - 15.0 g/dL 01/27/2023 8:06 AM JOINTER MACHINE [facility] Hematocrit 38.0 35.5 - 44.9 % 01/27/2023 8:06 AM JOINTER MACHINE [facility] Erythrocytes 3.82(L) 3.92 - 5.13 x10(12)/L 01/27/2023 8:06 AM JOINTER MACHINE [facility] MCV 99.5(H) 78.2 - 97.9 fL 01/27/2023 8:06 AM JOINTER MACHINE [facility] RBC Distrib Width 15.8 12.2 - 16.1 % 01/27/2023 8:06 AM JOINTER MACHINE [facility] Platelet Count 68(L) 157 - 371 x10(9)/L 01/27/2023 8:06 AM JOINTER MACHINE [facility] Leukocytes 3.5 3.4 - 9.6 x10(9)/L 01/27/2023 8:06 AM JOINTER MACHINE [facility] Neutrophils 2.05 1.56 - 6.45 x10(9)/L 01/27/2023 8:06 AM JOINTER MACHINE [facility] Lymphocytes 0.94(L) 0.95 - 3.07 x10(9)/L 01/27/2023 8:06 AM JOINTER MACHINE [facility] Monocytes 0.41 0.26 - 0.81 x10(9)/L 01/27/2023 8:06 AM JOINTER MACHINE [facility] Eosinophils 0.05 0.03 - 0.48 x10(9)/L 01/27/2023 8:06 AM JOINTER MACHINE [facility] Basophils 0.03 0.01 - 0.08 x10(9)/L 01/27/2023 8:06 AM JOINTER MACHINE [facility] Blood (Blood, Venous) 01/27/2023 8:00 AM JOINTER MACHINE 01/27/2023 8:01 AM JOINTER MACHINE Mari Noguera M.D. LAB BLOOD ADD-ON [facility] [address] [address], [facility] [place] [address] [phone] documented in this encounter Visit Diagnoses Diagnosis Multiple Myeloma Not Having Achieved Remission (HCC)- Primary documented in this encounter Additional Health Concerns Infection Onset Date Last Indicated Resolved Time Protective Environment 06/03/2022 06/03/2022 documented as of this encounter Care Teams Engineer [employer] Relationship Specialty Start Date End Date Elsewhere, Pcp PCP - General Internal Medicine 04/01/22 documented as of this encounter
--- OUTSIDE RECORDS SUMMARY | 2023-03-21 10:33 | XMS_ITS | Encounter Summary ---
Author Name Unknown Organization [facility] Address [address] [place] [address] Care Team Providers Care Tobacco Drier Operator Name Role Phone Elsewhere, Pcp Primary Care Provider Unavailabl e Encounter Details Date Type Department Care Team (Late st Contact Info) Description 01/25/2023 Orders Only Department of Oncology in [place], [place] [address] [place] [address] Mari Noguera M.D. [address] [place] [phone] Social History Tobacco Use Types Packs/Day Years [...] often do you attend chur ch or oriental orthodox services? 1 to 4 [...] st Contact Info) Description 03/22/2023 7:30 AM SOYFREEZE OPERATOR Appointment Department of Laboratory Medicine and Pathology, [facility], in [place], [place] [address] [place] [address] Mari Noguera M.D. [address] [place] [phone] 03/22/2023 8:45 AM SOYFREEZE OPERATOR Hospital Encounter Outpatient Procedure Center in [place], [place] [address] [place] [address] Mari Noguera M.D. [facility] [place] [phone] 03/31/2023 10:10 AM SOYFREEZE OPERATOR Appointment Department of Laboratory Medicine in [address] [address] Mari Noguera M.D. [address] [place] [phone] 04/04/2023 3:20 PM SOYFREEZE OPERATOR Office Visit Department of Oncology in [address] [phone] Mari Noguera M.D. [address] [place] [phone] 04/04/2023 3:45 PM SOYFREEZE OPERATOR Infusion Department of Infusion Therapy in [address] [phone] Mari Noguera M.D. [address] [place] [phone] 04/13/2023 10:10 AM SOYFREEZE OPERATOR Appointment Department of Laboratory Medicine in [address] [address] Mari Noguera M.D. [address] [place] [phone] 04/14/2023 9:00 AM SOYFREEZE OPERATOR Infusion Department of Infusion Therapy in [address] [phone] Mari Noguera M.D. [address] [place] [phone] documented as of this encounter Visit Diagnoses Not on filedocumented in this encounter Additional Health Concerns Infection Onset Date Last Indicated Resolved Time Protective Environment 06/03/2022 06/03/2022 documented as of this encounter Care Teams Tobacco Drier Operator Relationship Specialty Start Date End Date Elsewhere, Pcp PCP - General Internal Medicine 04/01/22 documented as of this encounter
--- OUTSIDE RECORDS SUMMARY | 2023-03-21 10:34 | XMS_ITS | Encounter Summary ---
Author Name Unknown Organization [facility] Address [address] [place] [address] Care Team Providers Care Elastic Cutter Name Role Phone Elsewhere, Pcp Primary Care Provider Unavailabl e Reason for Visit * Reason Onset Date Comments Nurse Assessment 12/27/2022 Encounter Details Date Type Department Care Team (Latest Contact Info) Description 12/27/2022 Clinical Communication Department of Oncology in [place], [place] [address] [place] [address] Mari Noguera M.D. [address] [place] [address] Nurse Assessment Social History Tobacco [...] How often do you attend [facility] or temple services? 1 to 4 times [...] 11/18/2021 [facility] - Occupational [...] st Contact Info) Description 03/22/2023 7:30 AM DOT NET ARCHITECT Appointment Department of Laboratory Medicine and Pathology, [facility], in [place], [place] [address] [place] [address] Mari Noguera M.D. [facility] [place] [phone] 03/22/2023 8:45 AM DOT NET ARCHITECT Hospital Encounter Outpatient Procedure Center in [place], [place] [address] [place] [address] Mari Noguera M.D. [address] [place] [phone] 03/31/2023 10:10 AM DOT NET ARCHITECT Appointment Department of Laboratory Medicine in [address] [address] Mari Noguera M.D. [address] [place] [phone] 04/04/2023 3:20 PM DOT NET ARCHITECT Office Visit Department of Oncology in [address] [phone] Mari Noguera M.D. [address] [place] [address] [phone] 04/04/2023 3:45 PM DOT NET ARCHITECT Infusion Department of Infusion Therapy in [address] [phone] Mari Noguera M.D. [address] [place] [phone] 04/13/2023 10:10 AM DOT NET ARCHITECT Appointment Department of Laboratory Medicine in [address] [address] Mari Noguera M.D. [facility] [place] [phone] 04/14/2023 9:00 AM DOT NET ARCHITECT Infusion Department of Infusion Therapy in [address] [phone] Mari Noguera M.D. [address] [phone] documented as of this encounter Visit Diagnoses Not on filedocumented in this encounter Additional Health Concerns Infection Onset Date Last Indicated Resolved Time Protective Environment 06/03/2022 06/03/2022 documented as of this encounter Care Teams Elastic Cutter Relationship Specialty Start Date End Date Elsewhere, Pcp PCP - General Internal Medicine 04/01/22 documented as of this encounter
--- OUTSIDE RECORDS SUMMARY | 2023-03-21 10:34 | XMS_ITS | Encounter Summary ---
Author Name Unknown Organization [facility] Address [address] [place] [address] Care Team Providers Care Awnings Mechanic Name Role Phone Elsewhere, Pcp Primary Care Provider Unavailabl e Encounter Details Date Type Department Care Team (Late st Contact Info) Description 12/26/2022 Orders Only Department of Oncology in [place], [place] [address] [place] [phone] Mari Noguera M.D. [address] [place] [address] Multiple Myeloma Not Having Achieved [...] st Contact Info) Description 03/22/2023 7:30 AM GROUNDS CARETAKER Appointment Department of Laboratory Medicine and Pathology, [facility], in [place], [place] [address] [place] [address] Mari Noguera M.D. [address] [place] [phone] 03/22/2023 8:45 AM GROUNDS CARETAKER Hospital Encounter Outpatient Procedure Center in [place] [address] [place] [address] Mari Noguera M.D. [facility] [phone] 03/31/2023 10:10 AM GROUNDS CARETAKER Appointment Department of Laboratory Medicine in [address] [address] Mari Noguera M.D. [address] [place] [phone] 04/04/2023 3:20 PM GROUNDS CARETAKER Office Visit Department of Oncology in [address] [phone] Mari Noguera M.D. [address] [place] [phone] 04/04/2023 3:45 PM GROUNDS CARETAKER Infusion Department of Infusion Therapy in [address] [phone] Mari Noguera M.D. [address] [place] [phone] 04/13/2023 10:10 AM GROUNDS CARETAKER Appointment Department of Laboratory Medicine in [address] [phone] Mari Noguera M.D. [address] [place] [phone] 04/14/2023 9:00 AM GROUNDS CARETAKER Infusion Department of Infusion Therapy in [address] [phone] Mari Noguera M.D. [address] [place] [phone] documented as of this encounter Visit Diagnoses Diagnosis Multiple Myeloma Not Having Achieved Remission (HCC) documented in this encounter Additional Health Concerns Infection Onset Date Last Indicated Resolved Time Protective Environment 06/03/2022 06/03/2022 documented as of this encounter Care Teams Awnings Mechanic Relationship Specialty Start Date End Date Elsewhere, Pcp PCP - General Internal Medicine 04/01/22 documented as of this encounter
--- OUTSIDE RECORDS SUMMARY | 2023-03-21 10:34 | XMS_ITS | Encounter Summary ---
Author Name Unknown Organization [facility] Address [address] [place] [address] Care Team Providers Care Correctional Nurse Name Role Phone Elsewhere, Pcp Primary Care Provider Unavailabl e Encounter Details Date Type Department Care Team (Late st Contact Info) Description 01/02/2023 Specialty Pharmacy [facility] [address] [place] [address] Aylin Sahu, Pharm.D., R.Ph. [address] [place] [address] Social History Tobacco Use Types Packs/Day Years [...] any clubs o r organizations such as mandaeism groups, unions, fraternal or athletic groups, or [...] Answer Date Recorded PHQ-2 Score 4 [facility]/2021 [facility] - Occupational Stress Questionnaire Answer [...] Pharm.D., R.Ph. - 01/02/2023 10:01 AM CST [facility] Specialty Pharmacy service discontinued at this time. Patient using other pharmacy. RICT WILDLIFE MANAGER documented in this encounter Plan of Treatment Upcoming Encounters Date Type Department Care Team (Late st Contact Info) Description 03/22/2023 7:30 AM DISTRICT WILDLIFE MANAGER Appointment Department of Laboratory Medicine and Pathology, [facility], in [place], [place] [address] [place] [address] Mari Noguera M.D. [address] [place] [phone] 03/22/2023 8:45 AM DISTRICT WILDLIFE MANAGER Hospital Encounter Outpatient Procedure Center in [place], [place] [address] [place] [address] Mari Noguera M.D. [address] [place] [phone] 03/31/2023 10:10 AM DISTRICT WILDLIFE MANAGER Appointment Department of Laboratory Medicine in [address] [address] Mari Noguera M.D. [address] [place] [phone] 04/04/2023 3:20 PM DISTRICT WILDLIFE MANAGER Office Visit Department of Oncology in [address] [phone] Mari Noguera M.D. [address] [place] [phone] 04/04/2023 3:45 PM DISTRICT WILDLIFE MANAGER Infusion Department of Infusion Therapy in [address] [address] Mari Noguera M.D. [address] [place] [phone] 04/13/2023 10:10 AM DISTRICT WILDLIFE MANAGER Appointment Department of Laboratory Medicine in [address] [phone] Mari Noguera M.D. [address] [place] [phone] 04/14/2023 9:00 AM DISTRICT WILDLIFE MANAGER Infusion Department of Infusion Therapy in [place], [place] [address] [place] [phone] Mari Noguera M.D. [address] [place] [phone] documented as of this encounter Visit Diagnoses Not on filedocumented in this encounter Additional Health Concerns Infection Onset Date Last Indicated Resolved Time Protective Environment 06/03/2022 06/03/2022 documented as of this encounter Care Teams Correctional Nurse Relationship Specialty Start Date End Date Elsewhere, Pcp PCP - General Internal Medicine 04/01/22 documented as of this encounter
--- OUTSIDE RECORDS SUMMARY | 2023-03-21 10:34 | XMS_ITS | Encounter Summary ---
Author Name Unknown Organization [facility] Address [address] [place] [address] Care Team Providers Care Crime Scene Investigator Name Role Phone Elsewhere, Pcp Primary Care Provider Unavailabl e Encounter Details Date Type Department Care Team (Latest Contact Info) Description 12/29/2022 1:21 PM CDT - 12/29/2022 11:59 PM CDT Hospital Encounter Department of Laboratory Medicine in [place], [place] [address] [place] [phone] Mari Noguera M.D. [address] [place] [phone] Multiple Myeloma Not Having Achieved Remission (HCC) [...] How often do you attend chur or yazidism services? 1 to 4 times [...] st Contact Info) Description 03/22/2023 7:30 AM SOAP MAKER Appointment Department of Laboratory Medicine and Pathology, [facility] in [place], [place] [address] [place] [address] Mari Noguera M.D. [address] [place] [phone] 03/22/2023 8:45 AM SOAP MAKER Hospital Encounter Outpatient Procedure Center in [place], [place] [address] [place] [address] Mari Noguera M.D. [address] [place] [phone] 03/31/2023 10:10 AM SOAP MAKER Appointment Department of Laboratory Medicine in [place] [address] [place] [address] Mari Noguera M.D. [address] [place] [phone] 04/04/2023 3:20 PM SOAP MAKER Office Visit Department of Oncology in [address] [phone] Mari Noguera M.D. [address] [place] [phone] 04/04/2023 3:45 PM SOAP MAKER Infusion Department of Infusion Therapy in [address] [phone] Mari Noguera M.D. [address] [place] [phone] 04/13/2023 10:10 AM SOAP MAKER Appointment Department of Laboratory Medicine in [address] [address] Mari Noguera M.D. [address] [place] [phone] 04/14/2023 9:00 AM SOAP MAKER Infusion Department of Infusion Therapy in [address] [phone] Mari Noguera M.D. [address] [place] [phone] documented as of this encounter Procedures Procedure [...] CDT Mari Noguera M.D. LAB BLOOD ADD-ON [facility] [address] [place] [address], [id number] in [place] [address] [place] [address] documented in this encounter Visit Diagnoses Diagnosis Multiple Myeloma Not Having Achieved Remission (HCC) documented in this encounter Additional Health Concerns Infection Onset Date Last Indicated Resolved Time Protective Environment 06/03/2022 06/03/2022 documented as of this encounter Care Teams Crime Scene Investigator Relationship Specialty Start Date End Date Elsewhere, Pcp PCP - General Internal Medicine 04/01/22 documented as of this encounter
--- OUTSIDE RECORDS SUMMARY | 2023-03-21 10:34 | XMS_ITS | Encounter Summary ---
Author Name Unknown Organization [facility] Address [address] [place] [address] Care Team Providers Care Rhia Name Role Phone Elsewhere, Pcp Primary Care [...] total visits Mari Noguera M.D. [address] [place] [address] [facility] Region Referral ID Status Reason Start Date Expiration Date V isits Requested Visits Authorized [id number] Authorized 05/28/2021 02/27/2024 31 31 Encounter Details Date Type Department Care Team (Latest Contact Info) Description 01/12/2023 9:54 AM CRANE ENGINEER - 01/12/2023 11:59 PM CRANE ENGINEER Hospital Encounter Department of Laboratory Medicine in [place] [address] [facility] [place] [address] Mari Noguera M.D. [address] [place] [phone] Multiple Myeloma Not Having Achieved [...] st Contact Info) Description 03/22/2023 7:30 AM CRANE ENGINEER Appointment Department of Laboratory Medicine and Pathology, [facility], in [place], [place] [address] [place] [address] Mari Ngouera M.D. [address] [place] [phone] 03/22/2023 8:45 AM CRANE ENGINEER Hospital Encounter Outpatient Procedure Center in [place], [place] [address] [place] [address] Mari Noguera M.D. [facility] [place] [phone] 03/31/2023 10:10 AM CRANE ENGINEER Appointment Department of Laboratory Medicine in [address] [address] Mari Noguera M.D. [address] [place] [phone] 04/04/2023 3:20 PM CRANE ENGINEER Office Visit Department of Oncology in [address] [phone] Mari Noguera M.D. [address] [place] [phone] 04/04/2023 3:45 PM CRANE ENGINEER Infusion Department of Infusion Therapy in [address] [phone] Mari Noguera M.D. [address] [place] [phone] 04/13/2023 10:10 AM CRANE ENGINEER Appointment Department of Laboratory Medicine in [address] [address] Mari Noguera M.D. [address] [place] [phone] 04/14/2023 9:00 AM CRANE ENGINEER Infusion Department of Infusion Therapy in [address] [phone] Mari Noguera M.D. [address] [place] [phone] documented as of this encounter Procedures Procedure Name Priority Date/Time Associated Diagnosis Comments CBC WITH DIFFERENTIAL, B Routine 01/12/2023 10:10 AM CRANE ENGINEER Multiple Myeloma Not Having Achieved Remission (HCC) COMPREHENSIVE METABOLIC PANEL, S/P Routine 01/12/2023 10:10 AM CRANE ENGINEER Multiple Myeloma Not Having Achieved Remission (HCC) documented in this encounter Results * (ABNORMAL) Comprehensive Metabolic Panel (01/12/2023 10:10 AM CRANE ENGINEER) Pathologist [facility] Potassium, P 3.8 3.6 - 5.2 mmol/L 01/12/2023 2:01 PM CRANE ENGINEER OWAT Sodium, P 140 135 - 145 mmol/L 01/12/2023 2:01 PM CRANE ENGINEER OWAT Chloride, P 102 98 - 107 mmol/L 01/12/2023 2:01 PM CRANE ENGINEER OWAT Bicarbonate, P 27 22 - 29 mmol/L 01/12/2023 2:01 PM CRANE ENGINEER OWAT Anion Gap, P 11 7 - 15 01/12/2023 2:01 PM CRANE ENGINEER OWAT BUN (Blood Urea Nitrogen), P 33(H) 6 - 21 mg/dL 01/12/2023 2:01 PM CRANE ENGINEER OWAT Creatinine 1.30(H) 0.59 - 1.04 mg/dL 01/12/2023 2:01 PM CRANE ENGINEER OWAT Estimated GFR (eGFR) 43(L) >=60 mL/min/BS A 01/12/2023 2:01 PM CRANE ENGINEER OWAT Comment: Estimated GFR calculated using the 2020 CKD_EPI creatinine equation. Calcium, Total, P 9.8 8.8 - 10.2 mg/dL 01/12/2023 2:01 PM CRANE ENGINEER OWAT Glucose, P 122 70 - 140 mg/dL 01/12/2023 2:01 PM CRANE ENGINEER OWAT Protein, Total, P 6.5 6.3 - 7.9 g/dL 01/12/2023 2:01 PM CRANE ENGINEER OWAT Albumin, P 4.2 3.5 - 5.0 g/dL 01/12/2023 2:01 PM CRANE ENGINEER OWAT Aspartate Aminotransferase (AST), P 19 8 - 43 U/L 01/12/2023 2:01 PM CRANE ENGINEER OWAT Alkaline Phosphatase, P 73 35 - 104 U/L 01/12/2023 2:01 PM CRANE ENGINEER OWAT Alanine Aminotransferase (ALT), P 17 7 - 45 U/L 01/12/2023 2:01 PM CRANE ENGINEER OWAT Bilirubin, Total, P 0.3 0.0 - 1.2 mg/dL 01/12/2023 2:01 PM CRANE ENGINEER OWAT Blood (Blood, Venous) 01/12/2023 10:10 AM CRANE ENGINEER 01/12/2023 1:05 PM CRANE ENGINEER Mari Noguera M.D. LAB BLOOD ADD-ON [facility] [address], [place] [address], [facility] OWAT [facility] [place] [address] [place] [address] * (ABNORMAL) CBC with Differential, Blood (01/12/2023 10:10 AM CRANE ENGINEER) Hemoglobin 12.0 11.6 - 15.0 g/dL 01/12/2023 10:37 AM CRANE ENGINEER FB60 Hematocrit 37.0 35.5 - 44.9 % 01/12/2023 10:37 AM CRANE ENGINEER FB60 Erythrocytes 3.75(L) 3.92 - 5.13 x10(12)/L 01/12/2023 10:37 AM CRANE ENGINEER FB60 MCV 98.7(H) 78.2 - 97.9 fL 01/12/2023 10:37 AM CRANE ENGINEER FB60 RBC Distrib Width 15.6 12.2 - 16.1 % 01/12/2023 10:37 AM CRANE ENGINEER FB60 Platelet Count 54(L) 157 - 371 x10(9)/L 01/12/2023 10:37 AM CRANE ENGINEER FB60 Leukocytes 3.6 3.4 - 9.6 x10(9)/L 01/12/2023 10:37 AM CRANE ENGINEER FB60 Neutrophils 2.29 1.56 - 6.45 x10(9)/L 01/12/2023 10:37 AM CRANE ENGINEER FB60 Lymphocytes 0.83(L) 0.95 - 3.07 x10(9)/L 01/12/2023 10:37 AM CRANE ENGINEER FB60 Monocytes 0.29 0.26 - 0.81 x10(9)/L 01/12/2023 10:37 AM CRANE ENGINEER FB60 Eosinophils 0.20 0.03 - 0.48 x10(9)/L 01/12/2023 10:37 AM CRANE ENGINEER FB60 Basophils <0.04 0.01 - 0.08 x10(9)/L 01/12/2023 10:37 AM CRANE ENGINEER FB60 Blood (Blood, Venous) 01/12/2023 10:10 AM CRANE ENGINEER 01/12/2023 10:10 AM CRANE ENGINEER Mari Noguera M.D. LAB BLOOD ADD-ON [facility] [address] [place] [address], [facility] FB60 [facility] [place] [address] [place] [address] documented in this encounter Visit Diagnoses Diagnosis Multiple Myeloma Not Having Achieved Remission (HCC) documented in this encounter Additional Health Concerns Infection Onset Date Last Indicated Resolved Time Protective Environment 06/03/2022 06/03/2022 documented as of this encounter Care Teams Rhia Relationship Specialty Start Date End Date Elsewhere, Pcp PCP - General Internal Medicine 04/01/22 documented as of this encounter
--- OUTSIDE RECORDS SUMMARY | 2023-03-21 10:34 | XMS_ITS | Encounter Summary ---
Author Name Unknown Organization [facility] Address [address] [place] [address] Care Team Providers Care Art Display Maker Name Role Phone Elsewhere, Pcp Primary Care Provider Unavailabl e Encounter Details Date Type Department Care Team (Late st Contact Info) Description 12/29/2022 Orders Only Department of Infusion Therapy in [place], [place] [address] [place] [phone] Donita Sandhu R.N. [address] [place] [phone] Multiple Myeloma Not Having Achieved Remission (HCC) [...] often do you attend chur ch or tenriism services? 1 to 4 times [...] Date Recorded PHQ-2 Score 4 11/18/2021 [facility] - Occupational Stress Questionnaire Answer Date [...] st Contact Info) Description 03/22/2023 7:30 AM NUCLEAR MEDICINE TECHNICIAN Appointment Department of Laboratory Medicine and Pathology, [facility], in [place], [place] [address] [place] [address] Mari Noguera M.D. [address] [place] [phone] 03/22/2023 8:45 AM NUCLEAR MEDICINE TECHNICIAN Hospital Encounter Outpatient Procedure Center in [place], [place] [address] [place] [address] Mari Noguera M.D. [address] [place], [place] [address] [phone] 03/31/2023 10:10 AM NUCLEAR MEDICINE TECHNICIAN Appointment Department of Laboratory Medicine in [address] [phone] Mari Noguera M.D. [address] [place] [phone] 04/04/2023 3:20 PM NUCLEAR MEDICINE TECHNICIAN Office Visit Department of Oncology in [address] [phone] Mari Noguera M.D. [address] [place] [phone] 04/04/2023 3:45 PM NUCLEAR MEDICINE TECHNICIAN Infusion Department of Infusion Therapy in [address] [phone] Mari Noguera M.D. [address] [place] [phone] 04/13/2023 10:10 AM NUCLEAR MEDICINE TECHNICIAN Appointment Department of Laboratory Medicine in [address] [phone] Mari Noguera M.D. [address] [place] [phone] 04/14/2023 9:00 AM NUCLEAR MEDICINE TECHNICIAN Infusion Department of Infusion Therapy in [address] [phone] Mari Noguera M.D. [address] [place] [address] MICKI Perez [phone] documented as of this encounter Results * (ABNORMAL) CBC with Differential, Blood (12/29/2022 1:31 PM CDT) [facility] Hemoglobin 12.1 11.6 - 15.0 g/dL 12/29/2022 [...] M.D. LAB BLOOD ADD-ON [facility] [address] [place] [address], [facility] FB60 [facility] [place] [address] [place] [address] documented in this encounter Visit Diagnoses Diagnosis Multiple Myeloma Not Having Achieved Remission (HCC)- Primary documented in this encounter Additional Health Concerns Infection Onset Date Last Indicated Resolved Time Protective Environment 06/03/2022 06/03/2022 documented as of this encounter Care Teams Art Display Maker Relationship Specialty Start Date End Date Elsewhere, Pcp PCP - General Internal Medicine 04/01/22 documented as of this encounter
--- OUTSIDE RECORDS SUMMARY | 2023-03-21 10:34 | XMS_ITS | Encounter Summary ---
Author Name Unknown Organization [facility] Address [address] [place] [address] Care Team Providers Care Ophthalmic Photographer Name Role Phone Elsewhere, Pcp Primary Care [...] 17 total visits Mari Noguera M.D. [address] [place] [address] [facility] Region Referral ID Status Reason Start Date Expiration Date V isits Requested Visits Authorized [id number] Authorized 05/28/2021 02/27/2024 31 31 Encounter Details Date Type Department Care Team (Latest Contact Info) Description 12/29/2022 9:20 AM CDT - 12/29/2022 1:20 PM CDT Hospital Encounter Department of Laboratory Medicine in [place], [place] [address] [facility] [place] [address] Mari Noguera M.D. [address] [place] [phone] Multiple Myeloma Not [...] often do you attend [facility] or roman catholic services? 1 to [...] st Contact Info) Description 03/22/2023 7:30 AM PRODUCTION LEAD Appointment Department of Laboratory Medicine and Pathology, [facility], in [place], [place] [address] [place] [address] Mari Noguera M.D. [address] [place] [phone] 03/22/2023 8:45 AM PRODUCTION LEAD Hospital Encounter Outpatient Procedure Center in [place], [place] [address] [place] [address] Mari Noguera M.D. [address] [place] [phone] 03/31/2023 10:10 AM PRODUCTION LEAD Appointment Department of Laboratory Medicine in [address] [phone] Mari Noguera M.D. [address] [place] [phone] 04/04/2023 3:20 PM PRODUCTION LEAD Office Visit Department of Oncology in [address] [phone] Mari Noguera M.D. [address] [place] [phone] 04/04/2023 3:45 PM PRODUCTION LEAD Infusion Department of Infusion Therapy in [address] [phone] Mari Noguera M.D. [address] [place] [address] [phone] 04/13/2023 10:10 AM PRODUCTION LEAD Appointment Department of Laboratory Medicine in [address] [phone] Mari Noguera M.D. [address] [place] [address] [phone] 04/14/2023 9:00 AM PRODUCTION LEAD Infusion Department of Infusion Therapy in [address] [phone] Mari Noguera M.D. [address] [facility] MICKI Perez [phone] documented as of this encounter Procedures Procedure [...] Mari Noguera M.D. LAB BLOOD ADD-ON [facility] [address] [place] [address] [facility] [address] [place] [address] documented in this encounter Visit Diagnoses Diagnosis Multiple Myeloma Not Having Achieved Remission (HCC) documented in this encounter Additional Health Concerns Infection Onset Date Last Indicated Resolved Time Protective Environment 06/03/2022 06/03/2022 documented as of this encounter Care Teams Ophthalmic Photographer Relationship Specialty Start Date End Date Elsewhere, Pcp PCP - General Internal Medicine 04/01/22 documented as of this encounter
--- OUTSIDE RECORDS SUMMARY | 2023-03-21 10:34 | XMS_ITS | Encounter Summary ---
Author Name Unknown Organization [facility] Address [address] [place] [address] Care Team Providers Care Kiln Car Unloader Name Role Phone Elsewhere, Pcp Primary Care [...] / 17 total visits Mari Noguera M.D. [address] [place] [phone] [facility] Region Referral ID Status Reason Start Date Expiration Date V isits Requested Visits Authorized [id number] Authorized 05/28/2021 02/27/2024 31 31 Encounter Details Date Type Department Care Team (Late st Contact Info) Description 12/30/2022 9:15 AM CDT Infusion Department of Infusion Therapy in [address] [phone] Mari Noguera M.D. [address] [place] [phone] Multiple Myeloma Not Having Achieved Remission (HCC) [...] [facility] ional [facility] - Occupational Stress Questionnaire Answer Date [...] st Contact Info) Description 03/22/2023 7:30 AM SENIOR DENTIST Appointment Department of Laboratory Medicine and Pathology, [facility] in [place], [place] [address] [place] [address] Mari Noguera M.D. [address] [place] [phone] 03/22/2023 8:45 AM SENIOR DENTIST Hospital Encounter Outpatient Procedure Center in [place], [place] [address] [place] [address] Mari Noguera M.D. [address] [place] [phone] 03/31/2023 10:10 AM SENIOR DENTIST Appointment Department of Laboratory Medicine in [address] [address] Mari Noguera M.D. [address] [place] [phone] 04/04/2023 3:20 PM SENIOR DENTIST Office Visit Department of Oncology in [address] [phone] Mari Noguera M.D. [address] [place] [phone] 04/04/2023 3:45 PM SENIOR DENTIST Infusion Department of Infusion Therapy in [address] [phone] Mair Noguera M.D. [address] [place] [phone] 04/13/2023 10:10 AM SENIOR DENTIST Appointment Department of Laboratory Medicine in [address] [phone] Mari Noguera M.D. [address] [place] [phone] 04/14/2023 9:00 AM SENIOR DENTIST Infusion Department of Infusion Therapy in [address] [phone] Mari Noguera M.D. [address] [place] [phone] documented as of this encounter Visit Diagnoses [...] documented as of this encounter Care Teams Kiln Car Unloader Relationship Specialty Start Date End Date Elsewhere, Pcp PCP - General Internal Medicine 04/01/22 documented as of this encounter
--- OUTSIDE RECORDS SUMMARY | 2023-03-21 10:34 | XMS_ITS | Encounter Summary ---
Author Name Unknown Organization [facility] Address [address] [place] [address] Care Team Providers Care Economic Manager Name Role Phone Elsewhere, Pcp Primary Care Provider Unavailabl e Encounter Details Date Type Department Care Team (Late st Contact Info) Description 12/24/2022 Orders Only Department of Oncology in [place], [place] [address] [place] [address] Mari Noguera M.D. [address] [place] [phone] Social History Tobacco Use Types Packs/Day Years [...] often do you attend chur ch or sikhism services? 1 to 4 times [...] Answer Date Recorded PHQ-2 Score 4 11/18/2021 [facility]at [facility] [...] st Contact Info) Description 03/22/2023 7:30 AM BUSINESS PROGRAMMER Appointment Department of Laboratory Medicine and Pathology, [facility], in [place], [place] [address] [place] [address] Mari Noguera M.D. [address] [place] [phone] 03/22/2023 8:45 AM BUSINESS PROGRAMMER Hospital Encounter Outpatient Procedure Center in [place], [place] [address] [place] [address] Mari Noguera M.D. [facility] [place] [phone] 03/31/2023 10:10 AM BUSINESS PROGRAMMER Appointment Department of Laboratory Medicine in [address] [address] Mari Noguera M.D. [address] [place] [phone] 04/04/2023 3:20 PM BUSINESS PROGRAMMER Office Visit Department of Oncology in [address] [phone] Mari Noguera M.D. [address] [place] [phone] 04/04/2023 3:45 PM BUSINESS PROGRAMMER Infusion Department of Infusion Therapy in [address] [phone] Mari Noguera M.D. [address] [place] [address] [phone] 04/13/2023 10:10 AM BUSINESS PROGRAMMER Appointment Department of Laboratory Medicine in [address] [phone] Mari Noguera M.D. [address] [place] [phone] 04/14/2023 9:00 AM BUSINESS PROGRAMMER Infusion Department of Infusion Therapy in [address] [phone] Mari Noguera M.D. [address] [place] [phone] documented as of this encounter Visit Diagnoses Not on filedocumented in this encounter Additional Health Concerns Infection Onset Date Last Indicated Resolved Time Protective Environment 06/03/2022 06/03/2022 documented as of this encounter Care Teams Economic Manager Relationship Specialty Start Date End Date Elsewhere, Pcp PCP - General Internal Medicine 04/01/22 documented as of this encounter
--- OUTSIDE RECORDS SUMMARY | 2023-03-21 10:34 | XMS_ITS | Encounter Summary ---
Author Name Unknown Organization [facility] Address [address] [place] [address] Care Team Providers Care Barkeep Name Role Phone Elsewhere, Pcp Primary Care [...] 17 total visits Mari Noguera M.D. [address] [place] [address] [facility] Region Referral ID Status Reason Start Date Expiration Date V isits Requested Visits Authorized [id number] Authorized 05/28/2021 02/27/2024 31 31 Encounter Details Date Type Department Care Team (Late st Contact Info) Description 01/13/2023 8:40 AM MATERIALS SCHEDULER Office Visit Department of Oncology in [place], [place] [address] [place] [address] Mari Noguera M.D. 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 Treadwell will continue maintenance therapy with every other week bortezomib and lenalidomide 10 mg 21 of 28 days. . Myeloma indices pending from today, she will be contacted through the portal [employer] 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 Mari Noguera M.D. RIALS SCHEDULER documented in this encounter Plan of Treatment Upcoming Encounters Date Type Department Care Team (Late st Contact Info) Description 03/22/2023 7:30 AM MATERIALS SCHEDULER Appointment Department of Laboratory Medicine and Pathology, [facility] in [place], [place] [address] [place] [address] Mari Noguera M.D. [address] [place] [phone] 03/22/2023 8:45 AM MATERIALS SCHEDULER Hospital Encounter Outpatient Procedure Center in [place], [place] [address] [place] [address] Mari Noguera M.D. [address] [place] [phone] 03/31/2023 10:10 AM MATERIALS SCHEDULER Appointment Department of Laboratory Medicine in [address] [phone] Mari Noguera M.D. [address] [place] [phone] 04/04/2023 3:20 PM MATERIALS SCHEDULER Office Visit Department of Oncology in [address] [phone] Mari Noguera M.D. [address] [place] [phone] 04/04/2023 3:45 PM MATERIALS SCHEDULER Infusion Department of Infusion Therapy in [address] [phone] Mari Noguera M.D. [address] [place] [phone] 04/13/2023 10:10 AM MATERIALS SCHEDULER Appointment Department of Laboratory Medicine in [address] [phone] Mari Noguera M.D. [address] [place] [phone] 04/14/2023 9:00 AM MATERIALS SCHEDULER Infusion Department of Infusion Therapy in [address] [phone] Mari Noguera M.D. [address] [place] [phone] documented as of this encounter Results * (ABNORMAL) Monoclonal Gammopathy Diagnostic (01/20/2023 10:03 AM MATERIALS SCHEDULER) Therapeutic Antibody Administered? Unspecified 01/23/2023 7:47 AM MATERIALS SCHEDULER SDSC Total Protein, S 6.4 6.3 - 7.9 g/dL 01/23/2023 9:41 AM MATERIALS SCHEDULER [facility]SC Jerusalem Free Light Chain, S 1.45 0.3300 - 1.94 mg/dL 01/23/2023 11:12 AM MATERIALS SCHEDULER [facility] Lambda Free Light Chain, S 1.41 0.5700 - 2.63 mg/dL 01/23/2023 11:12 AM MATERIALS SCHEDULER SDSC Jerusalem/Lambda FLC Ratio 1.03 0.2600 - 1.65 01/23/2023 11:12 AM MATERIALS SCHEDULER SDSC Albumin 3.3(L) 3.4 - 4.7 g/dL 01/23/2023 1:40 PM MATERIALS SCHEDULER SDSC Alpha-1 Globulin 0.3 0.1 - 0.3 g/dL 01/23/2023 1:40 PM MATERIALS SCHEDULER SDSC Alpha-2 Globulin 1.1(H) 0.6 - 1.0 g/dL 01/23/2023 1:40 PM MATERIALS SCHEDULER SDSC Beta-Globulin 1.0 0.7 - 1.2 g/dL 01/23/2023 1:40 PM MATERIALS SCHEDULER [facility] Gamma-Globulin 0.8 0.6 - 1.6 g/dL 01/23/2023 1:40 PM MATERIALS SCHEDULER SD[facility] A/G Ratio 1.05 01/23/2023 1:40 PM MATERIALS SCHEDULER SDSC Impression Small abnormality in gamma fraction. See Isotype. 01/23/2023 1:40 PM MATERIALS SCHEDULER SDSC Flag, M-protein Isotype Positive(A) Negative 01/24/2023 3:10 PM MATERIALS SCHEDULER SDSC M-protein Isotype MALDI-TOF MS IgG lambda, monoclonal. 01/24/2023 3:10 PM MATERIALS SCHEDULER SD[facility] Comment: ----ADDITIONAL INFORMATION---- The submitted sample was assayed by five separate immunopurifications for IgG, IgA, IgM, kappa and lambda. ??The result reflects the findings of either no monoclonal protein detected or those monoclonal immunoglobulins that were detected. This test was developed and its performance characteristics determined by [facility] in a manner consistent with CLIA requirements. This test has not been cleared or approved by the U.S. Food and Drug Administration. Blood (Blood, Venous) 01/20/2023 10:03 AM MATERIALS SCHEDULER 01/23/2023 8:47 AM MATERIALS SCHEDULER Narrative [facility] - 01/24/2023 3:10 PM MATERIALS SCHEDULER Specimen Information: Specimen ID: [id number] Specimen Type: Blood Specimen Collection Start Date: 01/20/2023 10:03 AM Specimen Received Date: 01/23/2023 ??8:47 AM Specimen ID: [id number] Specimen Type: Blood Specimen Collection Start Date: 01/20/2023 10:03 AM Specimen Received Date: 01/23/2023 ??7:47 AM Mari Noguera M.D. LAB BLOOD ADD-ON [facility] [address] [place] [address] [facility] [address] [place] [address] [facility] [address] [place] [place] [address] * (ABNORMAL) Comprehensive Metabolic Panel (01/20/2023 10:03 AM MATERIALS SCHEDULER) Pathologist [facility] Potassium, P 4.2 3.6 - 5.2 mmol/L 01/20/2023 10:34 AM MATERIALS SCHEDULER [facility] Sodium, P 141 135 - 145 mmol/L 01/20/2023 10:34 AM MATERIALS SCHEDULER [facility] Chloride, P 104 98 - 107 mmol/L 01/20/2023 10:34 AM MATERIALS SCHEDULER [facility] Bicarbonate, P 29 22 - 29 mmol/L 01/20/2023 10:34 AM MATERIALS SCHEDULER [facility] Anion Gap, P 8 7 - 15 01/20/2023 10:34 AM MATERIALS SCHEDULER [facility] BUN (Blood Urea Nitrogen), P 30(H) 6 - 21 mg/dL 01/20/2023 10:34 AM MATERIALS SCHEDULER [facility] Creatinine 1.25(H) 0.59 - 1.04 mg/dL 01/20/2023 10:34 AM MATERIALS SCHEDULER R[facility] Estimated GFR (eGFR) 45(L) >=60 mL/min/BS A 01/20/2023 10:34 AM MATERIALS SCHEDULER [facility] Comment: Estimated GFR calculated using the 2020 CKD_EPI creatinine equation. Calcium, Total, P 9.5 8.8 - 10.2 mg/dL 01/20/2023 10:34 AM MATERIALS SCHEDULER R[facility] Glucose, P 104 70 - 140 mg/dL 01/20/2023 10:34 AM MATERIALS SCHEDULER R[facility] Protein, Total, P 6.7 6.3 - 7.9 g/dL 01/20/2023 10:34 AM MATERIALS SCHEDULER [facility] Albumin, P 4.1 3.5 - 5.0 g/dL 01/20/2023 10:34 AM MATERIALS SCHEDULER [facility] Aspartate Aminotransferase (AST), P 19 8 - 43 U/L 01/20/2023 10:34 AM MATERIALS SCHEDULER [facility] Alkaline Phosphatase, P 64 35 - 104 U/L 01/20/2023 10:34 AM MATERIALS SCHEDULER [facility] Alanine Aminotransferase (ALT), P 15 7 - 45 U/L 01/20/2023 10:34 AM MATERIALS SCHEDULER R[facility] Bilirubin, Total, P 0.3 0.0 - 1.2 mg/dL 01/20/2023 10:34 AM MATERIALS SCHEDULER R[facility] Blood (Blood, Venous) 01/20/2023 10:03 AM MATERIALS SCHEDULER 01/20/2023 10:06 AM MATERIALS SCHEDULER Mari Noguera M.D. LAB BLOOD ADD-ON [facility] [address] [facility] [place] [address], [facility] [place] [address] [facility] [place] [address] * (ABNORMAL) CBC with Differential, Blood (01/20/2023 10:03 AM MATERIALS SCHEDULER) Hemoglobin 11.5(L) 11.6 - 15.0 g/dL 01/20/2023 10:18 AM MATERIALS SCHEDULER RDWG Hematocrit 35.8 35.5 - 44.9 % 01/20/2023 10:18 AM MATERIALS SCHEDULER R[facility] Erythrocytes 3.56(L) 3.92 - 5.13 x10(12)/L 01/20/2023 10:18 AM MATERIALS SCHEDULER [facility] MCV 100.6(H) 78.2 - 97.9 fL 01/20/2023 10:18 AM MATERIALS SCHEDULER RDWG RBC Distrib Width 15.9 12.2 - 16.1 % 01/20/2023 10:18 AM MATERIALS SCHEDULER R[facility] Platelet Count 56(L) 157 - 371 x10(9)/L 01/20/2023 10:18 AM MATERIALS SCHEDULER RDW[facility] Leukocytes 2.8(L) 3.4 - 9.6 x10(9)/L 01/20/2023 10:18 AM MATERIALS SCHEDULER RDWG Neutrophils 1.38(L) 1.56 - 6.45 x10(9)/L 01/20/2023 10:18 AM MATERIALS SCHEDULER RDW[facility] Lymphocytes 0.98 0.95 - 3.07 x10(9)/L 01/20/2023 10:18 AM MATERIALS SCHEDULER R[facility] Monocytes 0.34 0.26 - 0.81 x10(9)/L 01/20/2023 10:18 AM MATERIALS SCHEDULER RDWG Eosinophils 0.10 0.03 - 0.48 x10(9)/L 01/20/2023 10:18 AM MATERIALS SCHEDULER R[facility] Basophils <0.03 0.01 - 0.08 x10(9)/L 01/20/2023 10:18 AM MATERIALS SCHEDULER R[facility] Blood (Blood, Venous) 01/20/2023 10:03 AM MATERIALS SCHEDULER 01/20/2023 10:06 AM MATERIALS SCHEDULER Mari Noguera M.D. LAB BLOOD ADD-ON [facility] [address] [place] [address], [facility] [place] [address] [place] [address] * GI Pathogen Panel, PCR, Feces (01/18/2023 3:00 PM MATERIALS SCHEDULER) Specimen Source STOOL 1:03 PM MATERIALS SCHEDULER RDWG Campylobacter species Negative Negative 01/20/2023 1:03 PM MATERIALS SCHEDULER RDWG C. difficile toxin Negative Negative 2022 1:03 PM MATERIALS SCHEDULER RDW[facility] Plesiomonas shigelloides Negative Negative 01/20/2023 1:03 PM MATERIALS SCHEDULER R[facility] Salmonella species Negative Negative 2022 1:03 PM MATERIALS SCHEDULER RDW[facility] Vibrio species Negative Negative 01/20/2023 1:03 PM MATERIALS SCHEDULER RDW[facility] Vibrio cholerae Negative Negative 1:03 PM MATERIALS SCHEDULER RDW[facility] Yersinia species Negative Negative 01/21/20 1:03 PM MATERIALS SCHEDULER RDWG Enteroaggregative E. coli (EAEC) Negative Negative 01/20/2023 1:03 PM MATERIALS SCHEDULER RDWG Enteropathogenic E. coli (EPEC) Negative Negative 01/20/2023 1:03 PM MATERIALS SCHEDULER RDWG Enterotoxigenic E. coli (ETEC) Negative Negative 01/20/2023 1:03 PM MATERIALS SCHEDULER RDWG Shiga toxin producing E. coli Negative Negative 01/20/2023 1:03 PM MATERIALS SCHEDULER RDWG Shigella/Enteroinvas carlos E. coli Negative Negative 01/20/2023 1:03 PM MATERIALS SCHEDULER RDWG Cryptosporidium species Negative Negative 01/20/2023 1:03 PM MATERIALS SCHEDULER RDW[facility] Cyclospora cayetanensis Negative Negative 01/20/2023 1:03 PM MATERIALS SCHEDULER RDW[facility] Entamoeba histolytica Negative Negative 01/20/2023 1:03 PM MATERIALS SCHEDULER RDW[facility] Giardia Negative Negative 01/20/2023 1:03 PM MATERIALS SCHEDULER R[facility] Adenovirus F40/41 Negative Negative 023 1:03 PM MATERIALS SCHEDULER RDWG Astrovirus Negative Negative 01/20/2023 1:03 PM MATERIALS SCHEDULER RDW[facility] Norovirus GI/GII Negative Negative 01/21/20 1:03 PM MATERIALS SCHEDULER RDW[facility] Rotavirus Ag, F Negative Negative 1:03 PM MATERIALS SCHEDULER R[facility] Sapovirus Negative Negative 01/20/2023 1:03 PM MATERIALS SCHEDULER RDW[facility] Comment: ----ADDITIONAL INFORMATION---- This assay is performed using the FDA-cleared CloudVolumesArray GI Panel ([employer] Stool (Stool) 01/18/2023 3:0 0 PM MATERIALS SCHEDULER 01/20/2023 9:53 AM MATERIALS SCHEDULER Mari Noguera M.D. LAB MICROBIOLOGY - G ENERAL ORDERABLES [facility] [address] [place] [address], [facility] [address] 701 [facility] [address] documented in this encounter Visit Diagnoses Diagnosis Multiple Myeloma Not Having Achieved Remission (HCC)- Primary Diarrhea Transplant Stem Cell (HCC) Thrombocytopenia (HCC) Multiple Myeloma Not Having Achieved Remission (HCC) Diarrhea documented in this encounter Additional Health Concerns Infection Onset Date Last Indicated Resolved Time Protective Environment 06/03/2022 06/03/2022 documented as of this encounter Care Teams Barkeep Relationship Specialty Start Date End Date Elsewhere, Pcp PCP - General Internal Medicine 04/01/22 documented as of this encounter
--- OUTSIDE RECORDS SUMMARY | 2023-03-21 10:34 | XMS_ITS | Encounter Summary ---
Author Name Unknown Organization [facility] Address [address] [place] [address] Care Team Providers Care Strategy Associate Name Role Phone Elsewhere, Pcp Primary Care Provider Unavailabl e Reason for Visit * Reason Comments Med Refill Encounter Details Date Type Department Care Team (Late st Contact Info) Description 12/27/2022 Refill Department of Oncology in [place], [place] [address] [place] [phone] Mari Noguera M.D. [address] [place] [address] Med Refill Social History Tobacco [...] week 06/11/2021 How often do you attend [facility] or jewish services? 1 to 4 times per year [...] Answer Date Recorded PHQ-2 Score 4 11/18/2021 [facility] - Occupational Stress Questionnaire Answer Date [...] st Contact Info) Description 03/22/2023 7:30 AM IGNITER CAPPER Appointment Department of Laboratory Medicine and Pathology, [facility], in [place], [place] [address] [place] [address] Mari Noguera M.D. [address] [place] [address] 03/22/2023 8:45 AM IGNITER CAPPER Hospital Encounter Outpatient Procedure Center in [place], [place] [address] [place] [address] Mari Noguera M.D. [facility] [place] [phone] 03/31/2023 10:10 AM IGNITER CAPPER Appointment Department of Laboratory Medicine in [address] [place] [address] Mari Noguera M.D. [address] [place] [phone] 04/04/2023 3:20 PM IGNITER CAPPER Office Visit Department of Oncology in [address] [phone] Mari Noguera M.D. [address] [place] [phone] 04/04/2023 3:45 PM IGNITER CAPPER Infusion Department of Infusion Therapy in [address] [phone] Mari Noguera M.D. [address] [place] [phone] 04/13/2023 10:10 AM IGNITER CAPPER Appointment Department of Laboratory Medicine in [address] [address] Mari Noguera M.D. [facility] [place] [address] 04/14/2023 9:00 AM IGNITER CAPPER Infusion Department of Infusion Therapy in [address] [phone] Mari Noguera M.D. [address] [place] [phone] documented as of this encounter Visit Diagnoses Diagnosis Multiple Myeloma Not Having Achieved Remission (HCC) documented in this encounter Additional Health Concerns Infection Onset Date Last Indicated Resolved Time Protective Environment 06/03/2022 06/03/2022 documented as of this encounter Care Teams Strategy Associate Relationship Specialty Start Date End Date Elsewhere, Pcp PCP - General Internal Medicine 04/01/22 documented as of this encounter
--- OUTSIDE RECORDS SUMMARY | 2023-03-21 10:35 | XMS_ITS | Encounter Summary ---
Author Name Unknown Organization [facility] Address [address] [place] [address] Care Team Providers Care High School Librarian Name Role Phone Elsewhere, Pcp Primary Care Provider Unavailabl e Encounter Details Date Type Department Care Team (Late st Contact Info) Description 12/20/2022 Clinical Communication Pharmacy Prior Auth RO [phone] Jovita Espinosa Social History Tobacco Use Types [...] often do you attend chur ch or orthodoxy services? 1 to 4 times per year 06/11/2021 Do you belong to any clubs o r organizations such as amish groups, unions, fraternal or athletic groups, or [...] No 06/11/2021 Housing Stability Vital Sign Answer Lbanco e Recorded In the last 12 months, [...] st Contact Info) Description 03/22/2023 7:30 AM CENTRAL CONTROL ROOM OPERATOR Appointment Department of Laboratory Medicine and Pathology, [facility], in [place], [place] [address] [place] [phone] Mari Noguera M.D. [address] [place] [phone] 03/22/2023 8:45 AM CENTRAL CONTROL ROOM OPERATOR Hospital Encounter Outpatient Procedure Center in [place], [place] [address] [place] [address] Mari Noguera M.D. [address] [place] [phone] 03/31/2023 10:10 AM CENTRAL CONTROL ROOM OPERATOR Appointment Department of Laboratory Medicine in [place], [place] [address] [place] [address] Mari Noguera M.D. [address] [place] [phone] 04/04/2023 3:20 PM CENTRAL CONTROL ROOM OPERATOR Office Visit Department of Oncology in [address] [phone] Mari Noguera M.D. [address] [place] [phone] 04/04/2023 3:45 PM CENTRAL CONTROL ROOM OPERATOR Infusion Department of Infusion Therapy in [address] [phone] Mari Noguera M.D. [address] [place] [phone] 04/13/2023 10:10 AM CENTRAL CONTROL ROOM OPERATOR Appointment Department of Laboratory Medicine in [place], [place] [address] [place] [address] Mari Noguera M.D. [address] [place] [phone] 04/14/2023 9:00 AM CENTRAL CONTROL ROOM OPERATOR Infusion Department of Infusion Therapy in [address] [phone] Mari Noguera M.D. [address] [place] [phone] documented as of this encounter Visit Diagnoses Not on filedocumented in this encounter Additional Health Concerns Infection Onset Date Last Indicated Resolved Time Protective Environment 06/03/2022 06/03/2022 documented as of this encounter Care Teams High School Librarian Relationship Specialty Start Date End Date Elsewhere, Pcp PCP - General Internal Medicine 04/01/22 documented as of this encounter
--- OUTSIDE RECORDS SUMMARY | 2023-03-21 10:35 | XMS_ITS | Encounter Summary ---
Author Name Unknown Organization [facility] Address [address] [place] [address] Care Team Providers Care Auto Glass Installer Name Role Phone Elsewhere, Pcp Primary Care Provider Unavailabl e Reason for Visit * Reason Onset Date Comments [facility] unable to fill generic Revlimid for patient 12/20/2022 Encounter Details Date Type Department Care Team (Latest Contact Info) Description 12/20/2022 Clinical Communication [facility] [address] [place] [phone] Katelin Vargas, Pharm.D., R.Ph. [address] [place] [address] [facility] unable to fill generic Revlimid for [...] st Contact Info) Description 03/22/2023 7:30 AM TITLE I MATH TUTOR Appointment Department of Laboratory Medicine and Pathology, [facility] in [place], [place] [address] [place] [address] Mari Noguera M.D. [address] [place] [phone] 03/22/2023 8:45 AM TITLE I MATH TUTOR Hospital Encounter Outpatient Procedure Center in [place], [place] [address] [place] [address] Mari Noguera M.D. [address] [place] [phone] 03/31/2023 10:10 AM TITLE I MATH TUTOR Appointment Department of Laboratory Medicine in [address] [phone] Mari Noguera M.D. [address] [place] [phone] 04/04/2023 3:20 PM TITLE I MATH TUTOR Office Visit Department of Oncology in [address] [phone] Mari Noguera M.D. [address] [place] [phone] 04/04/2023 3:45 PM TITLE I MATH TUTOR Infusion Department of Infusion Therapy in [address] [phone] Mari Noguera M.D. [address] [place] [phone] 04/13/2023 10:10 AM TITLE I MATH TUTOR Appointment Department of Laboratory Medicine in [place], [place] [address] [facility] [address] Mari Noguera M.D. [address] [place] [phone] 04/14/2023 9:00 AM TITLE I MATH TUTOR Infusion Department of Infusion Therapy in [address] [phone] Mari Noguera M.D. [address] [place] [phone] documented as of this encounter Visit Diagnoses Diagnosis Multiple Myeloma Not Having Achieved Remission (HCC) documented in this encounter Additional Health Concerns Infection Onset Date Last Indicated Resolved Time Protective Environment 06/03/2022 06/03/2022 documented as of this encounter Care Teams Auto Glass Installer Relationship Specialty Start Date End Date Elsewhere, Pcp PCP - General Internal Medicine 04/01/22 documented as of this encounter
--- OUTSIDE RECORDS SUMMARY | 2023-03-21 10:35 | XMS_ITS | Encounter Summary ---
Author Name Unknown Organization [facility] Address [address] [place] [address] Care Team Providers Care Waterworks Operator Name Role Phone Elsewhere, Pcp Primary [...] 17 total visits Mari Noguera M.D. [address] [place] [address] [facility] Region Referral ID Status Reason Start Date Expiration Date V isits Requested Visits Authorized [id number] Authorized 05/28/2021 02/27/2024 31 31 Encounter Details Date Type Department Care Team (Latest Contact Info) Description 12/15/2022 1:47 PM CDT - 12/15/2022 11:59 PM CDT Hospital Encounter Department of Laboratory Medicine in [place], [place] [address] [facility] [phone] Mari Noguera M.D. [address] [place] [address] Multiple Myeloma Not Having Achieved [...] e[facility] or buddhist services? 1 to 4 times [...] or open. 21 capsule 0 12/15/2022 12/26/2022 magnesium chloride (SLOW-MAG) 71.[address] tablet [...] st Contact Info) Description 03/22/2023 7:30 AM DRIVER MANAGER Appointment Department of Laboratory Medicine and Pathology, [facility], in [place], [place] [address] [place] [phone] Mari Noguear M.D. [address] [place] [phone] 03/22/2023 8:45 AM DRIVER MANAGER Hospital Encounter Outpatient Procedure Center in [place], [place] [address] [place] [phone] Mari Noguera M.D. [address] [place] [phone] 03/31/2023 10:10 AM DRIVER MANAGER Appointment Department of Laboratory Medicine in [address] [place] [address] Mari Noguera M.D. [address] [place] [phone] 04/04/2023 3:20 PM DRIVER MANAGER Office Visit Department of Oncology in [address] [phone] Mari Noguera M.D. [address] [place] [phone] 04/04/2023 3:45 PM DRIVER MANAGER Infusion Department of Infusion Therapy in [address] [phone] Mari Noguera M.D. [address] [place] [phone] 04/13/2023 10:10 AM DRIVER MANAGER Appointment Department of Laboratory Medicine in [address] [place] [address] Mari Noguera M.D. [address] [place] [phone] 04/14/2023 9:00 AM DRIVER MANAGER Infusion Department of Infusion Therapy in [address] [phone] Mari Noguera M.D. [address] [place] [phone] documented as of this encounter Procedures Procedure [...] M.D. LAB BLOOD ADD-ON [facility] [address] [place] [address], [facility] FB60 [facility] in [place] [address] [place] [address] documented in this encounter Visit Diagnoses Diagnosis Multiple Myeloma Not Having Achieved Remission (HCC) documented in this encounter Additional Health Concerns Infection Onset Date Last Indicated Resolved Time Protective Environment 06/03/2022 06/03/2022 documented as of this encounter Care Teams Waterworks Operator Relationship Specialty Start Date End Date Elsewhere, Pcp PCP - General Internal Medicine 04/01/22 documented as of this encounter
--- OUTSIDE RECORDS SUMMARY | 2023-03-21 10:35 | XMS_ITS | Encounter Summary ---
Author Name Unknown Organization [facility] Address [address] [place] [address] Care Team Providers Care Art Consultant Name Role Phone Elsewhere, Pcp Primary [...] 17 total visits Mari Noguera M.D. [address] [place] [address] [facility] Region Referral ID Status Reason Start Date Expiration Date V isits Requested Visits Authorized [id number] Authorized 05/28/2021 02/27/2024 31 31 Encounter Details Date Type Department Care Team (Latest Contact Info) Description 12/02/2022 12:19 PM CDT - 12/02/2022 11:59 PM CDT Hospital Encounter Department of Laboratory Medicine in [place], [place] [address] [place] [phone] Mari Noguera M.D. [address] [place] [address] Multiple Myeloma Not Having Achieved [...] or open. 21 capsule 0 11/14/2022 12/13/2022 magnesium chloride (SLOW-MAG) 71.[address] tablet [...] st Contact Info) Description 03/22/2023 7:30 AM CAFE WORKER Appointment Department of Laboratory Medicine and Pathology, [facility], in [place], [place] [address] [place] [address] Mari Noguera M.D. [address] [place] [phone] 03/22/2023 8:45 AM CAFE WORKER Hospital Encounter Outpatient Procedure Center in [place], [place] [address] [place] [address] Mari Noguera M.D. [address] [place] [phone] 03/31/2023 10:10 AM CAFE WORKER Appointment Department of Laboratory Medicine in [address] [place] [address] Mari Noguera M.D. [address] [place] [phone] 04/04/2023 3:20 PM CAFE WORKER Office Visit Department of Oncology in [address] [address] Mari Noguera M.D. [address] [place] [phone] 04/04/2023 3:45 PM CAFE WORKER Infusion Department of Infusion Therapy in [address] [address] Mari Noguera M.D. [address] [place] [phone] 04/13/2023 10:10 AM CAFE WORKER Appointment Department of Laboratory Medicine in [address] [place] [address] Mari Noguera M.D. [address] [place] [phone] 04/14/2023 9:00 AM CAFE WORKER Infusion Department of Infusion Therapy in [address] [address] Mari Noguera M.D. [address] [place] [phone] documented as of this encounter Procedures Procedure [...] Expanded Panel (12/02/2022 12:38 PM CDT) Pathologist [facility] Total Protein, S 7.2 6.3 - 7.9 g/dL 12/02/2022 9:55 PM CDT [facility] [place] Free Light Chain, S 2.46(H) 0.3300 - 1.94 mg/dL 12/05/2022 7:40 AM CDT ECLR Lambda Free Light Chain, S 1.68 0.5700 - 2.63 mg/dL 12/05/2022 7:40 AM CDT ECLR [place]/Lambda FLC Ratio 1.46 0.2600 - 1.65 12/05/2022 [...] PM CDT 12/02/2022 9:33 PM CDT Narrative [facility] - 12/05/2022 3:27 PM CDT Specimen Information: Specimen ID: [id number] Specimen Type: Blood Specimen Collection Start Date: 12/02/2022 12:38 PM Specimen Received Date: 12/02/2022 ??9:33 PM Specimen ID: [id number] Specimen Type: Blood Specimen Collection Start Date: 12/02/2022 12:38 PM Specimen Received Date: 12/02/2022 ??9:33 PM Specimen ID: [id number] Specimen Type: Blood Specimen Collection Start Date: 12/02/2022 12:38 PM Specimen Received Date: 12/02/2022 ??9:33 PM Mari Noguera M.D. LAB BLOOD ADD-ON [facility] [address] [place] [address], [facility] ECLR [facility] in [address] [address] [place] [phone] * (ABNORMAL) CBC with Differential, Blood (12/02/2022 [...] CDT Mari Noguera M.D. LAB BLOOD ADD-ON [facility] [place] [facility] [address] [place] [address], [facility] RDWG [facility] in [place] [address] [place] [address] documented in this encounter Visit Diagnoses Diagnosis Multiple Myeloma Not Having Achieved Remission (HCC) documented in this encounter Additional Health Concerns Infection Onset Date Last Indicated Resolved Time Protective Environment 06/03/2022 06/03/2022 documented as of this encounter Care Teams Art Consultant Relationship Specialty Start Date End Date Elsewhere, Pcp PCP - General Internal Medicine 04/01/22 documented as of this encounter
--- OUTSIDE RECORDS SUMMARY | 2023-03-21 10:35 | XMS_ITS | Encounter Summary ---
Author Name Unknown Organization [facility] Address [address] [place] [address] Care Team Providers Care Baseball Glove Shaper Name Role Phone Elsewhere, Pcp Primary Care Provider Unavailabl e Reason for Visit * Reason Comments Med Refill Encounter Details Date Type Department Care Team (Late st Contact Info) Description 12/13/2022 Refill Department of Oncology in [place], [place] [address] [place] [phone] Mari Noguera M.D. [address] [place] [address] Med Refill Social History Tobacco [...] you attend [facility] or anabaptist services? 1 to 4 times per year 06/11/2021 Do you belong to any clubs o r organizations such as tenriism groups, unions, fraternal or athletic groups, or [...] 4 11/18/2021 [facility] - Occupational Stress [...] st Contact Info) Description 03/22/2023 7:30 AM FIRE FIGHTING EQUIPMENT SPECIALIST Appointment Department of Laboratory Medicine and Pathology, [facility], in [employer], [place] [address] [place] [address] Mari Noguera M.D. [address] [place] [address] 03/22/2023 8:45 AM FIRE FIGHTING EQUIPMENT SPECIALIST Hospital Encounter Outpatient Procedure Center in [employer], [place] [address] [place] [address] Mari Noguera M.D. [facility] [place] [phone] 03/31/2023 10:10 AM FIRE FIGHTING EQUIPMENT SPECIALIST Appointment Department of Laboratory Medicine in [address] [place] [address] Mari Noguera M.D. [address] [place] [phone] 04/04/2023 3:20 PM FIRE FIGHTING EQUIPMENT SPECIALIST Office Visit Department of Oncology in [address] [address] Mari Noguera M.D. [address] [place] [phone] 04/04/2023 3:45 PM FIRE FIGHTING EQUIPMENT SPECIALIST Infusion Department of Infusion Therapy in [address] [address] Mari Nougera M.D. [address] [place] [phone] 04/13/2023 10:10 AM FIRE FIGHTING EQUIPMENT SPECIALIST Appointment Department of Laboratory Medicine in [address] [address] Mari Noguera M.D. [facility] [place] [address] 04/14/2023 9:00 AM FIRE FIGHTING EQUIPMENT SPECIALIST Infusion Department of Infusion Therapy in [address] [phone] Mari Noguera M.D. [address] [place] [phone] documented as of this encounter Visit Diagnoses Diagnosis Multiple Myeloma Not Having Achieved Remission (HCC) documented in this encounter Additional Health Concerns Infection Onset Date Last Indicated Resolved Time Protective Environment 06/03/2022 06/03/2022 documented as of this encounter Care Teams Baseball Glove Shaper Relationship Specialty Start Date End Date Elsewhere, Pcp PCP - General Internal Medicine 04/01/22 documented as of this encounter
--- OUTSIDE RECORDS SUMMARY | 2023-03-21 10:35 | XMS_ITS | Encounter Summary ---
Author Name Unknown Organization [facility] Address [address] [place] [address] Care Team Providers Care Music Artist Name Role Phone Elsewhere, Pcp Primary Care Provider Unavailabl e Reason for Visit * Reason Comments Med Refill Encounter Details Date Type Department Care Team (Late st Contact Info) Description 12/07/2022 Refill [facility], Ninth Floor [address] [place] [address] Brooklynn [place], MARIE, C.N.P., D.N.P. [address] [place] [address] Med Refill Social History Tobacco Use Types [...] st Contact Info) Description 03/22/2023 7:30 AM DECK SUPERVISOR Appointment Department of Laboratory Medicine and Pathology, [facility], in [place], [place] [address] [place] [address] Mari Noguera M.D. [address] [place] [phone] 03/22/2023 8:45 AM DECK SUPERVISOR Hospital Encounter Outpatient Procedure Center in [place], [place] [address] [place] [address] Mari Noguera M.D. [address] [place] [phone] 03/31/2023 10:10 AM DECK SUPERVISOR Appointment Department of Laboratory Medicine in [place], [place] [address] [place] [address] Mari Noguera M.D. [address] [place] [phone] 04/04/2023 3:20 PM DECK SUPERVISOR Office Visit Department of Oncology in [address] [phone] Mari Noguera M.D. [address] [place] [phone] 04/04/2023 3:45 PM DECK SUPERVISOR Infusion Department of Infusion Therapy in [address] [phone] Mari Noguera M.D. [address] [place] [phone] 04/13/2023 10:10 AM DECK SUPERVISOR Appointment Department of Laboratory Medicine in [place], [place] [address] [place] [address] Mari Noguera M.D. [address] [place] [phone] 04/14/2023 9:00 AM DECK SUPERVISOR Infusion Department of Infusion Therapy in [place] [address] [place] [phone] Mari Noguera M.D. [address] [place] [address] documented as of this encounter Visit Diagnoses Not on filedocumented in this encounter Additional Health Concerns Infection Onset Date Last Indicated Resolved Time Protective Environment 06/03/2022 06/03/2022 documented as of this encounter Care Teams Music Artist Relationship Specialty Start Date End Date Elsewhere, Pcp PCP - General Internal Medicine 04/01/22 documented as of this encounter
--- OUTSIDE RECORDS SUMMARY | 2023-03-21 10:35 | XMS_ITS | Encounter Summary ---
Author Name Unknown Organization [facility] Address [address] [place] [address] Care Team Providers Care Director Of Institutional Research Name Role Phone Elsewhere, Pcp Primary Care Provider Unavailabl e Reason for Visit * Reason Onset Date Comments Rx Denial 12/20/2022 REVLIMID CAPSULE Encounter Details Date Type Department Care Team (Latest Contact Info) Description 12/20/2022 Clinical Communication Department of Oncology in [place], [place] [address] [place] [address] Mari Noguera M.D. [address] [place] [address] Rx Denial (REVLIMID CAPSULE) Social [...] 11/18/2021 [facility] Occupat ional Health - [...] st Contact Info) Description 03/22/2023 7:30 AM INBOUND SALES MANAGER Appointment Department of Laboratory Medicine and Pathology, [facility], in [place], [place] [address] [place] [address] Mair Noguera M.D. [address] [place], [place] [address] [phone] 03/22/2023 8:45 AM INBOUND SALES MANAGER Hospital Encounter Outpatient Procedure Center in [place], [place] [address] [place] [address] Mari Noguera M.D. [address] [place] [phone] 03/31/2023 10:10 AM INBOUND SALES MANAGER Appointment Department of Laboratory Medicine in [place], [place] [address] [place] [address] Mari Noguera M.D. [address] [place] [phone] 04/04/2023 3:20 PM INBOUND SALES MANAGER Office Visit Department of Oncology in [address] [address] Mari Noguera M.D. [address] [place] [phone] 04/04/2023 3:45 PM INBOUND SALES MANAGER Infusion Department of Infusion Therapy in [address] [phone] Mari Noguera M.D. [address] [place] [phone] 04/13/2023 10:10 AM INBOUND SALES MANAGER Appointment Department of Laboratory Medicine in [place], [place] [address] [place] [address] Mari Noguera M.D. [address] [place] [phone] 04/14/2023 9:00 AM INBOUND SALES MANAGER Infusion Department of Infusion Therapy in [address] [place] [phone] Mari Noguera M.D. [address] [place] [address] documented as of this encounter Visit Diagnoses Not on filedocumented in this encounter Additional Health Concerns Infection Onset Date Last Indicated Resolved Time Protective Environment 06/03/2022 06/03/2022 documented as of this encounter Care Teams Director Of Institutional Research Relationship Specialty Start Date End Date Elsewhere, Pcp PCP - General Internal Medicine 04/01/22 documented as of this encounter
--- OUTSIDE RECORDS SUMMARY | 2023-03-21 10:35 | XMS_ITS | Encounter Summary ---
Author Name Unknown Organization [facility] Address [address] [place] [address] Care Team Providers Care Senior Java J2Ee Developer Name Role Phone Elsewhere, Pcp Primary Care Provider Unavailabl e Encounter Details Date Type Department Care Team (Late st Contact Info) Description 12/16/2022 Orders Only Department of Oncology in [place], [place] [address] [place] [phone] Nasim Mchugh M.D. [address] [place] [address] Multiple Myeloma Not Having Achieved Remission (HCC) [...] week 06/11/2021 How often do you attend [facility] or synagogue services? 1 to 4 times [...] Date Recorded PHQ-2 Score 4 11/18/2021 [facility] of Occupat ional Health - [...] st Contact Info) Description 03/22/2023 7:30 AM LEGAL INVESTIGATOR Appointment Department of Laboratory Medicine and Pathology, [facility], in [place], [place] [address] [place] [address] Mari Noguera M.D. [address] [place] [phone] 03/22/2023 8:45 AM LEGAL INVESTIGATOR Hospital Encounter Outpatient Procedure Center in [place], [place] [address] [place] [address] Mari Noguera M.D. [address] [place] [phone] 03/31/2023 10:10 AM LEGAL INVESTIGATOR Appointment Department of Laboratory Medicine in [place], [place] [address] [place] [address] Mrai Noguera M.D. [address] [place] [phone] 04/04/2023 3:20 PM LEGAL INVESTIGATOR Office Visit Department of Oncology in [address] [address] Mari Noguera M.D. [address] [place] [phone] 04/04/2023 3:45 PM LEGAL INVESTIGATOR Infusion Department of Infusion Therapy in [address] [address] Mari Noguera M.D. [address] [place] [phone] 04/13/2023 10:10 AM LEGAL INVESTIGATOR Appointment Department of Laboratory Medicine in [place], [place] [address] [place] [address] Mari Noguera M.D. [address] [place] [phone] 04/14/2023 9:00 AM LEGAL INVESTIGATOR Infusion Department of Infusion Therapy in [address] [place] [address] Mari Noguera M.D. [address] [place] [address] documented as of this encounter Visit Diagnoses Diagnosis Multiple Myeloma Not Having Achieved Remission (HCC)- Primary documented in this encounter Additional Health Concerns Infection Onset Date Last Indicated Resolved Time Protective Environment 06/03/2022 06/03/2022 documented as of this encounter Care Teams Senior Java J2Ee Developer Relationship Specialty Start Date End Date Elsewhere, Pcp PCP - General Internal Medicine 04/01/22 documented as of this encounter
--- OUTSIDE RECORDS SUMMARY | 2023-03-21 10:35 | XMS_ITS | Encounter Summary ---
Author Name Unknown Organization [facility] Address [address] [place] [address] Care Team Providers Care News Photographer Name Role Phone Elsewhere, Pcp Primary Care Provider Unavailabl e Reason for Visit * Reason Onset Date Comments New Med Request 12/20/2022 Encounter Details Date Type Department Care Team (Latest Contact Info) Description 12/20/2022 Clinical Communication [facility] [address] [place] [address] Gregoria May, C.Ph.T. New Med Request Social [...] often do you attend chur ch or mu-ism services? 1 to 4 times per year [...] Answer Date Recorded PHQ-2 Score 4 11/18/2021 [facility] Answer Date [...] st Contact Info) Description 03/22/2023 7:30 AM NURSE UNIT MANAGER Appointment Department of Laboratory Medicine and Pathology, [facility], in [place], [place] [address] [place] [address] Mari Noguera M.D. [address] [place] [phone] 03/22/2023 8:45 AM NURSE UNIT MANAGER Hospital Encounter Outpatient Procedure Center in [place], [place] [address] [place] [address] Mari Noguera M.D. [facility] [place] [phone] 03/31/2023 10:10 AM NURSE UNIT MANAGER Appointment Department of Laboratory Medicine in [address] [address] Mari Noguera M.D. [address] [place] [phone] 04/04/2023 3:20 PM NURSE UNIT MANAGER Office Visit Department of Oncology in [address] [phone] Mari Noguera M.D. [address] [place] [phone] 04/04/2023 3:45 PM NURSE UNIT MANAGER Infusion Department of Infusion Therapy in [address] [phone] Mari Noguera M.D. [address] [place] [phone] 04/13/2023 10:10 AM NURSE UNIT MANAGER Appointment Department of Laboratory Medicine in [address] [address] Mari Noguera M.D. [address] [place] [phone] 04/14/2023 9:00 AM NURSE UNIT MANAGER Infusion Department of Infusion Therapy in [address] [address] Mari Noguera M.D. [address] [place] [phone] documented as of this encounter Visit Diagnoses Not on filedocumented in this encounter Additional Health Concerns Infection Onset Date Last Indicated Resolved Time Protective Environment 06/03/2022 06/03/2022 documented as of this encounter Care Teams News Photographer Relationship Specialty Start Date End Date Elsewhere, Pcp PCP - General Internal Medicine 04/01/22 documented as of this encounter
--- OUTSIDE RECORDS SUMMARY | 2023-03-21 10:35 | XMS_ITS | Encounter Summary ---
Author Name Unknown Organization [facility] Address [address] [place] [address] Care Team Providers Care Appliance Mechanic Name Role Phone Elsewhere, Pcp Primary Care Provider Unavailabl e Reason for Referral * Medication Prior Authorization - Closed Specialty Diagnoses / Procedures Referred By Guillermina zamora Referred To Contact Diagnoses Multiple Myeloma Not Having Achieved Remission (HCC) Nasim Mchugh M.D. [address] [place] [address] Referral ID Status Reason Start Date Expiration Date Visits Re quested Visits Authorized [id number] Closed 1 1 Reason for Visit * [...] 17 total visits Mari Noguera M.D. [address] [place] [address] [facility] Referral ID Status Reason Start Date Expiration Date V isits Requested Visits Authorized [id number] Authorized 05/28/2021 02/27/2024 31 31 Encounter Details Date Type Department Care Team (Late st Contact Info) Description 12/16/2022 2:15 PM CDT Infusion Department of Infusion Therapy in [place], [place] [address] [place] [phone] Mari Noguera M.D. [address] [place] [phone] Multiple Myeloma Not Having Achieved Remission (HCC) [...] Answer Date Recorded PHQ-2 Score 4 11/18/2021 [facility] of Occupat ional Health - [...] st Contact Info) Description 03/22/2023 7:30 AM PIE CHEF Appointment Department of Laboratory Medicine and Pathology, [facility], in [place], [place] [address] [place] [phone] Mari Noguera M.D. [address] [place] [phone] 03/22/2023 8:45 AM PIE CHEF Hospital Encounter Outpatient Procedure Center in [place], [place] [address] [place] [phone] Mari Noguera M.D. [address] [place] [phone] 03/31/2023 10:10 AM PIE CHEF Appointment Department of Laboratory Medicine in [address] [place] [address] Mari Noguera M.D. [address] [place] [phone] 04/04/2023 3:20 PM PIE CHEF Office Visit Department of Oncology in [address] [phone] Mari Noguera M.D. [address] [place] [phone] 04/04/2023 3:45 PM PIE CHEF Infusion Department of Infusion Therapy in [address] [address] Mari Noguera M.D. [address] [place] [phone] 04/13/2023 10:10 AM PIE CHEF Appointment Department of Laboratory Medicine in [address] [place] [address] Mari Noguera M.D. [address] [place] [phone] 04/14/2023 9:00 AM PIE CHEF Infusion Department of Infusion Therapy in [address] [phone] Mari Noguera M.D. [address] [place] [phone] documented as of this encounter Visit Diagnoses [...] documented as of this encounter Care Teams Appliance Mechanic Relationship Specialty Start Date End Date Elsewhere, Pcp PCP - General Internal Medicine 04/01/22 documented as of this encounter
--- OUTSIDE RECORDS SUMMARY | 2023-03-21 10:36 | XMS_ITS | Encounter Summary ---
Author Name Unknown Organization [facility] Address [address] [place] [address] Care Team Providers Care Cnc Manufacturing Engineer Name Role Phone Elsewhere, Pcp Primary [...] / 17 total visits Mari Noguera M.D. [address] [place] [phone] [facility] Region Referral ID Status Reason Start Date Expiration Date V isits Requested Visits Authorized [id number] Authorized 05/28/2021 02/27/2024 31 31 Encounter Details Date Type Department Care Team (Late st Contact Info) Description 11/22/2022 9:45 AM CDT Infusion Department of Infusion Therapy in [address] [phone] Mari Noguera M.D. [address] [place] [phone] Multiple Myeloma Not Having Achieved Remission (HCC); [...] do you attend [facility] or episcopalian services? 1 to 4 [...] Answer Date Recorded PHQ-2 Score 4 11/18/2021 [facility] - Occupational Stress Questionnaire Answer [...] Notes * Addendum Note - Jonna Encarnacion RAbrahamN. - 11/22/2022 9:45 AM CDTAddended by: JONNA ENCARNACION on: 11/22/2022 10:44 AM Modules accepted: Orders documented in this encounter Plan of Treatment Upcoming Encounters Date Type Department Care Team (Late st Contact Info) Description 03/22/2023 7:30 AM LEAD MINER BLASTING Appointment Department of Laboratory Medicine and Pathology, [facility] in [place], [place] [address] [place] [address] Mari Noguera M.D. [address] [place] [phone] 03/22/2023 8:45 AM LEAD MINER BLASTING Hospital Encounter Outpatient Procedure Center in [place], [place] [address] [place] [address] Mari Noguera M.D. [address] [place] [address] 03/31/2023 10:10 AM LEAD MINER BLASTING Appointment Department of Laboratory Medicine in [address] [phone] Mari Noguera M.D. [address] [place] [phone] 04/04/2023 3:20 PM LEAD MINER BLASTING Office Visit Department of Oncology in [address] [place] [phone] Mari Noguera M.D. [address] [place] [phone] 04/04/2023 3:45 PM LEAD MINER BLASTING Infusion Department of Infusion Therapy in [address] [phone] Mari Noguera M.D. [address] [place] [phone] 04/13/2023 10:10 AM LEAD MINER BLASTING Appointment Department of Laboratory Medicine in [address] [phone] Mari Noguera M.D. [address] [place] [phone] 04/14/2023 9:00 AM LEAD MINER BLASTING Infusion Department of Infusion Therapy in [address] [phone] Mari Noguera M.D. [address] [place] [phone] documented as of this encounter Visit Diagnoses Diagnosis Multiple Myeloma Not Having Achieved Remission (HCC) Transplant Stem Cell (HCC) Multiple Myeloma In Remission (HCC) documented in this encounter Additional Health Concerns Infection Onset Date Last Indicated Resolved Time Protective Environment 06/03/2022 06/03/2022 documented as of this encounter Care Teams Cnc Manufacturing Engineer Relationship Specialty Start Date End Date Elsewhere, Pcp PCP - General Internal Medicine 04/01/22 documented as of this encounter
--- OUTSIDE RECORDS SUMMARY | 2023-03-21 10:36 | XMS_ITS | Encounter Summary ---
Author Name Unknown Organization [facility] Address [address] [place] [address] Care Team Providers Care Digital Engineer Name Role Phone Elsewhere, Pcp Primary [...] 17 total visits Mari Noguera M.D. [address] [place] [address] [facility] Region Referral ID Status Reason Start Date Expiration Date V isits Requested Visits Authorized [id number] Authorized 05/28/2021 02/27/2024 31 31 Encounter Details Date Type Department Care Team (Late st Contact Info) Description 11/11/2022 12:30 PM CDT Infusion Department of Infusion Therapy in [address] [phone] Mari Noguera M.D. [address] [place] [phone] Multiple Myeloma Not Having Achieved Remission [...] 11/18/2021 [facility] - Occupational Stress Questionnaire Answer [...] st Contact Info) Description 03/22/2023 7:30 AM TILE INSPECTOR Appointment Department of Laboratory Medicine and Pathology, [facility], in [place], [place] [address] [place] [address] Mari Noguera M.D. [address] [place] [phone] 03/22/2023 8:45 AM TILE INSPECTOR Hospital Encounter Outpatient Procedure Center in [place], [place] [address] [place] [address] Mari Noguera M.D. [address] [place] [phone] 03/31/2023 10:10 AM TILE INSPECTOR Appointment Department of Laboratory Medicine in [address] [address] Mari Noguera M.D. [address] [place] [phone] 04/04/2023 3:20 PM TILE INSPECTOR Office Visit Department of Oncology in [address] [phone] Mari Noguera M.D. [address] [place] [phone] 04/04/2023 3:45 PM TILE INSPECTOR Infusion Department of Infusion Therapy in [address] [place] [phone] Mari Noguera M.D. [address] [place] [phone] 04/13/2023 10:10 AM TILE INSPECTOR Appointment Department of Laboratory Medicine in [address] [place] [address] Mari Noguera M.D. [address] [place] [phone] 04/14/2023 9:00 AM TILE INSPECTOR Infusion Department of Infusion Therapy in [address] [phone] Mari Noguera M.D. [address] [place] [phone] documented as of this encounter Visit [...] as of this encounter Care Teams Digital Engineer Relationship Specialty Start Date End Date Elsewhere, Pcp PCP - General Internal Medicine 04/01/22 documented as of this encounter
--- OUTSIDE RECORDS SUMMARY | 2023-03-21 10:36 | XMS_ITS | Encounter Summary ---
Author Name Unknown Organization [facility] Address [address] [place] [address] Care Team Providers Care Professional Nursing Tutor Name Role Phone Elsewhere, Pcp Primary Care [...] 17 total visits Mari Noguera M.D. [address] [place] [address] [facility] Region Referral ID Status Reason Start Date Expiration Date V isits Requested Visits Authorized [id number] Authorized 05/28/2021 02/27/2024 31 31 Encounter Details Date Type Department Care Team (Late st Contact Info) Description 11/11/2022 11:20 AM CDT Office Visit Department of Oncology in [place], [place] [address] [place] [phone] Mari Noguera M.D. [address] [place] [phone] Multiple Myeloma Not Having Achieved [...] do you attend [facility] or evangelical services? 1 to 4 times [...] chains: kappa: 8.01 mg/L; lambda: 33.64 mg/L; Uncertain:Lambda Ratio: 0.24 SPEP: M-spike: 3.26 g/dL Immunofixation: [...] post ASCT day 0 12/02/2021 ([facility]) Ms. Treadwell will continue maintenance therapy with [...] st Contact Info) Description 03/22/2023 7:30 AM PATTERN DRAFTER Appointment Department of Laboratory Medicine and Pathology, [facility], in [place], [place] [address] [place] [address] Mari Noguera M.D. [address] [place] [phone] 03/22/2023 8:45 AM PATTERN DRAFTER Hospital Encounter Outpatient Procedure Center in [place], [place] [address] [place] [address] Mari Noguera M.D. [address] [place] [phone] 03/31/2023 10:10 AM PATTERN DRAFTER Appointment Department of Laboratory Medicine in [place], [place] [address] [place] [address] Mari Noguera M.D. [address] [place] [phone] 04/04/2023 3:20 PM PATTERN DRAFTER Office Visit Department of Oncology in [address] [phone] Mari Noguera M.D. [address] [place] [phone] 04/04/2023 3:45 PM PATTERN DRAFTER Infusion Department of Infusion Therapy in [address] [phone] Mari Noguera M.D. [address] [place] [phone] 04/13/2023 10:10 AM PATTERN DRAFTER Appointment Department of Laboratory Medicine in [place], [place] [address] [place] [address] Mari Noguera M.D. [address] [place] [phone] 04/14/2023 9:00 AM PATTERN DRAFTER Infusion Department of Infusion Therapy in [place], [place] [address] [place] [address], [place] [phone] Mari Noguera M.D. [address] [place] [address], [place] [phone] documented as of this encounter Results * (ABNORMAL) CBC with Differential, Blood (12/15/2022 1:54 PM CDT) Pathologist [facility] Hemoglobin 11.6 11.6 - 15.0 g/dL 12/15/2022 [...] CDT Mari Noguera M.D. LAB BLOOD ADD-ON [facility] [address] [place] [address], [facility] FB60 [facility] in [place] [address] [place] [address] * (ABNORMAL) Comprehensive Metabolic Panel (11/18/2022 10:12 [...] CDT Mari Noguera M.D. LAB BLOOD ADD-ON [facility] [address], [place] [address], [facility] OWAT [facility] in [place] [address] [place] [address] documented in this encounter Visit Diagnoses Diagnosis Multiple Myeloma Not Having Achieved Remission (HCC)- Primary documented in this encounter Additional Health Concerns Infection Onset Date Last Indicated Resolved Time Protective Environment 06/03/2022 06/03/2022 documented as of this encounter Care Teams Professional Nursing Tutor Relationship Specialty Start Date End Date Elsewhere, Pcp PCP - General Internal Medicine 04/01/22 documented as of this encounter
--- OUTSIDE RECORDS SUMMARY | 2023-03-21 10:36 | XMS_ITS | Encounter Summary ---
Author Name Unknown Organization [facility] Address [address] [place] [address] Care Team Providers Care General Surgery Physician Assistant Name Role Phone Elsewhere, Pcp Primary Care Provider Unavailabl e Encounter Details Date Type Department Care Team (Late st Contact Info) Description 11/30/2022 Orders Only Department of Oncology in [place], [place] [address] [place] [phone] Anna Rosa RAbrahamNAbraham [address] [place] [address] Multiple Myeloma Not Having Achieved Remission (HCC) [...] often do you attend chur ch or restorationism services? 1 to 4 times [...] Recorded PHQ-2 Score 4 11/18/2021 [facility] Questionnaire Answer Date Recorded [...] st Contact Info) Description 03/22/2023 7:30 AM MASTER COASTWISE YACHT Appointment Department of Laboratory Medicine and Pathology, [facility], in [place], [place] [address] [place] [address] Mari Noguera M.D. [address] [place] [phone] 03/22/2023 8:45 AM MASTER COASTWISE YACHT Hospital Encounter Outpatient Procedure Center in [place], [place] [address] [place] [address] Mari Noguera M.D. [facility] [place] [phone] 03/31/2023 10:10 AM MASTER COASTWISE YACHT Appointment Department of Laboratory Medicine in [address] [phone] Mari Noguera M.D. [address] [place] [phone] 04/04/2023 3:20 PM MASTER COASTWISE YACHT Office Visit Department of Oncology in [address] [phone] Mari Noguera M.D. [address] [place] [phone] 04/04/2023 3:45 PM MASTER COASTWISE YACHT Infusion Department of Infusion Therapy in [address] [phone] Mari Noguera M.D. [address] [place] [phone] 04/13/2023 10:10 AM MASTER COASTWISE YACHT Appointment Department of Laboratory Medicine in [address] [phone] Mari Noguera M.D. [address] [place] [phone] 04/14/2023 9:00 AM MASTER COASTWISE YACHT Infusion Department of Infusion Therapy in [address] [phone] Mari Noguera M.D. [address] [place] [address] [place] [phone] documented as of this encounter Visit Diagnoses Diagnosis Multiple Myeloma Not Having Achieved Remission (HCC)- Primary documented in this encounter Additional Health Concerns Infection Onset Date Last Indicated Resolved Time Protective Environment 06/03/2022 06/03/2022 documented as of this encounter Care Teams General Surgery Physician Assistant Relationship Specialty Start Date End Date Elsewhere, Pcp PCP - General Internal Medicine 04/01/22 documented as of this encounter
--- OUTSIDE RECORDS SUMMARY | 2023-03-21 10:36 | XMS_ITS | Encounter Summary ---
Author Name Unknown Organization [facility] Address [address] [place] [address] Care Team Providers Care Reports Analyst Name Role Phone Elsewhere, Pcp Primary [...] 17 total visits Mari Noguera M.D. [address] [place] [address] [facility] Region Referral ID Status Reason Start Date Expiration Date V isits Requested Visits Authorized [id number] Authorized 05/28/2021 02/27/2024 31 31 Encounter Details Date Type Department Care Team (Latest Contact Info) Description 11/18/2022 10:01 AM CDT - 11/18/2022 11:59 PM CDT Hospital Encounter Department of Laboratory Medicine in [place], [place] [address] [facility] [place] [address] Mari Noguera M.D. [address] [place] [phone] Multiple Myeloma Not Having Achieved [...] week 06/11/2021 How often do you attend [facility] or [facility] services? 1 to 4 [...] st Contact Info) Description 03/22/2023 7:30 AM TECHNOLOGY PROGRAM MANAGER Appointment Department of Laboratory Medicine and Pathology, [facility], in [place], [place] [address] [place] [address] Mari Noguera M.D. [address] [place] [phone] 03/22/2023 8:45 AM TECHNOLOGY PROGRAM MANAGER Hospital Encounter Outpatient Procedure Center in [place], [place] [address] [place] [address] Mari Noguera M.D. [address] [place] [phone] 03/31/2023 10:10 AM TECHNOLOGY PROGRAM MANAGER Appointment Department of Laboratory Medicine in [address] [place] [address] Mari Noguera M.D. [address] [place] [phone] 04/04/2023 3:20 PM TECHNOLOGY PROGRAM MANAGER Office Visit Department of Oncology in [address] [phone] Mari Noguera M.D. [address] [place] [phone] 04/04/2023 3:45 PM TECHNOLOGY PROGRAM MANAGER Infusion Department of Infusion Therapy in [address] [address] Mari Noguera M.D. [address] [place] [phone] 04/13/2023 10:10 AM TECHNOLOGY PROGRAM MANAGER Appointment Department of Laboratory Medicine in [address] [place] [address] Mari Noguera M.D. [address] [place] [address] [phone] 04/14/2023 9:00 AM TECHNOLOGY PROGRAM MANAGER Infusion Department of Infusion Therapy in [address] [phone] Mari Noguera M.D. [address] [place] [address] [phone] documented as of this encounter Procedures Procedure [...] Noguera M.D. LAB BLOOD ADD-ON [facility] [address], [place] [address], [facility] OWAT [facility] in [place] [address] [place] [address] * (ABNORMAL) CBC with Differential, Blood (11/18/2022 [...] M.D. LAB BLOOD ADD-ON Performing Organization Address City/State/[facility] Co de Phone Number [facility] [address] [place] [address], [facility] FB60 [facility] in [place] [address] [place] [address] documented in this encounter Visit Diagnoses Diagnosis Multiple Myeloma Not Having Achieved Remission (HCC) documented in this encounter Additional Health Concerns Infection Onset Date Last Indicated Resolved Time Protective Environment 06/03/2022 06/03/2022 documented as of this encounter Care Teams Reports Analyst Relationship Specialty Start Date End Date Elsewhere, Pcp PCP - General Internal Medicine 04/01/22 documented as of this encounter
--- OUTSIDE RECORDS SUMMARY | 2023-03-21 10:36 | XMS_ITS | Encounter Summary ---
Author Name Unknown Organization [facility] Address [address] [place] [address] Care Team Providers Care Tailer Off Name Role Phone Elsewhere, Pcp Primary Care Provider Unavailabl e Reason for Referral * Outpatient (Routine) Specialty Diagnoses / Procedures Referred By Guillermina zamora Referred To Contact Hematology Oncology Mari Noguera M.D. [address] [place] [phone] [facility] Region Referral ID Status [...] / 17 total visits Mari Noguera M.D. [address] [place] [phone] [facility] Region Referral ID Status Reason Start Date Expiration Date V isits Requested Visits Authorized [id number] Authorized 05/28/2021 02/27/2024 31 31 Encounter Details Date Type Department Care Team (Late st Contact Info) Description 12/02/2022 11:40 AM CDT Office Visit Department of Oncology in [place], [place] [address] [place] [address] Mari Noguera M.D. [address] [place] [address] Multiple Myeloma Not Having Achieved [...] often do you attend chur ch or presybeterian services? 1 to 4 times [...] Answer Date Recorded PHQ-2 Score 4 11/18/2021 [facility] - [...] Data from Initial Diagnosis Presenting symptoms: Anemia, SEAD and known MGUS Labs: Date: Feb/Mar/Apr 2021 Hgb: 8.3 g/dL Plts: 90K Creatinine: 1.4 mg/dL Calcium: 9.1 mg/dL LDH: B2M: 34.8 Total Protein: 13.3 Albumin: 4.1 g/dL Immunoglobulins: Ig mg/dL; IgA: 9 mg/dL; IgM: <10 mg/dL Free light chains: kappa: 8.01 mg/L; lambda: 33.64 mg/L; [place]:Lambda Ratio: 0.24 SPEP: M-spike: 3.26 g/dL Immunofixation: [...] with VGPR post ASCT day 0 12/02/2021 ([facility]) Ms. Treadwell will continue maintenance therapy with [...] st Contact Info) Description 03/22/2023 7:30 AM CONCHE LOADER AND UNLOADER Appointment Department of Laboratory Medicine and Pathology, [facility], in [place], [place] [address] [place] [address] Mari Noguera M.D. [address] [place] [phone] 03/22/2023 8:45 AM CONCHE LOADER AND UNLOADER Hospital Encounter Outpatient Procedure Center in [place], [place] [address] [place] [address] Mari Noguera M.D. [address] [place] [phone] 03/31/2023 10:10 AM CONCHE LOADER AND UNLOADER Appointment Department of Laboratory Medicine in [place], [place] [address] [place] [address] Mari Noguera M.D. [address] [place] [phone] 04/04/2023 3:20 PM CONCHE LOADER AND UNLOADER Office Visit Department of Oncology in [address] [phone] Mari Noguera M.D. [address] [place] [phone] 04/04/2023 3:45 PM CONCHE LOADER AND UNLOADER Infusion Department of Infusion Therapy in [address] [address] Mari Noguera M.D. [address] [place] [phone] 04/13/2023 10:10 AM CONCHE LOADER AND UNLOADER Appointment Department of Laboratory Medicine in [place], [place] [address] [place] [address] Mari Noguera M.D. [address] [place] [phone] 04/14/2023 9:00 AM CONCHE LOADER AND UNLOADER Infusion Department of Infusion Therapy in [address] [phone] Mari Noguera M.D. [address] [place] [phone] Scheduled Referrals Name Type Priority Associated Diagnoses Order Schedule Hematology office visit (clinic) [facility] Region; Pre-Chemo Outpatient Referral Routine Multiple Myeloma Not Having Achieved Remission (HCC) Expected: 01/13/2023, Expires: 01/14/2024 documented as of this encounter Results * (ABNORMAL) Comprehensive Metabolic Panel (01/12/2023 10:10 AM CONCHE LOADER AND UNLOADER) Potassium, P 3.8 3.6 - 5.2 mmol/L 01/12/2023 2:01 PM CONCHE LOADER AND UNLOADER OWAT Sodium, P 140 135 - 145 mmol/L 01/12/2023 2:01 PM [employer] LOADER AND UNLOADER OWAT Chloride, P 102 98 - 107 mmol/L 01/12/2023 2:01 PM [employer] LO[employer]ER AND UNLOADER OWAT Bicarbonate, P 27 22 - 29 mmol/L 01/12/2023 2:01 PM [employer] LO[employer]ER AND UNLOADER OWAT Anion Gap, P 11 7 - 15 01/12/2023 2:01 PM [employer] LO[employer]ER AND UNLOADER OWAT BUN (Blood Urea Nitrogen), P 33(H) 6 - 21 mg/dL 01/12/2023 2:01 PM [employer]CHE LOADER AND UNLOADER OWAT Creatinine 1.30(H) 0.59 - 1.04 mg/dL 01/12/2023 2:01 PM [employer]CHE LOADER AND UNLOADER OWAT Estimated GFR (eGFR) 43(L) >=60 mL/min/BS A 01/12/2023 2:01 PM CONCHE LOADER AND UNLOADER OWAT Comment: Estimated GFR calculated using the 2020 CKD_EPI creatinine equation. Calcium, Total, P 9.8 8.8 - 10.2 mg/dL 01/12/2023 2:01 PM [employer] LOADER AND UNLOADER OWAT Glucose, P 122 70 - 140 mg/dL 01/12/2023 2:01 PM [employer]CHE LOADER AND UNLOADER OWAT Protein, Total, P 6.5 6.3 - 7.9 g/dL 01/12/2023 2:01 PM [employer] LO[employer]ER [employer] UNLOADER OWAT Albumin, P 4.2 3.5 - 5.0 g/dL 01/12/2023 2:01 PM [employer] LO[employer]ER AND UNLOADER OWAT Aspartate Aminotransferase (AST), P 19 8 - 43 U/L 01/12/2023 2:01 PM [employer] LO[employer]ER [employer] UNLOADER OWAT Alkaline Phosphatase, P 73 35 - 104 U/L 01/12/2023 2:01 PM [employer]ER [employer] UNLOADER OWAT Alanine Aminotransferase (ALT), P 17 7 - 45 U/L 01/12/2023 2:01 PM [employer]CHE LO[employer]ER AND UNLOADER OWAT Bilirubin, Total, P 0.3 0.0 - 1.2 mg/dL 01/12/2023 2:01 PM [employer]ER [employer] UNLOADER OWAT Blood (Blood, Venous) 01/12/2023 10:10 AM CONCHE LOADER AND UNLOADER 01/12/2023 1:05 PM CONCHE LOADER AND UNLOADER Mari Noguera M.D. LAB BLOOD ADD-ON Performing Organization Address City/State/[facility] Co de Phone Number [facility] [address] [place] [address], [facility] OWAT [facility] in [place] [address] [place] [address] * (ABNORMAL) CBC with Differential, Blood (01/12/2023 10:10 AM CONCHE LOADER AND UNLOADER) Hemoglobin 12.0 11.6 - 15.0 g/dL 01/12/2023 10:37 AM CONCHE LOADER AND UNLOADER FB60 Hematocrit 37.0 35.5 - 44.9 % 01/12/2023 10:37 AM CONCHE LOADER AND UNLOADER FB60 Erythrocytes 3.75(L) 3.92 - 5.13 x10(12)/L 01/12/2023 10:37 AM CONCHE LOADER AND UNLOADER FB60 MCV 98.7(H) 78.2 - 97.9 fL 01/12/2023 10:37 AM [employer]CHE LOADER AND UNLOADER FB60 RBC Distrib Width 15.6 12.2 - 16.1 % 01/12/2023 10:37 AM [employer]CHE LOADER AND UNLOADER FB60 Platelet Count 54(L) 157 - 371 x10(9)/L 01/12/2023 10:37 AM CONCHE LOADER AND UNLOADER FB60 Leukocytes 3.6 3.4 - 9.6 x10(9)/L 01/12/2023 10:37 AM CONCHE LOADER AND UNLOADER FB60 Neutrophils 2.29 1.56 - 6.45 x10(9)/L 01/12/2023 10:37 AM CONCHE LOADER AND UNLOADER FB60 Lymphocytes 0.83(L) 0.95 - 3.07 x10(9)/L 01/12/2023 10:37 AM CONCHE LOADER AND UNLOADER FB60 Monocytes 0.29 0.26 - 0.81 x10(9)/L 01/12/2023 10:37 AM CONCHE LOADER AND UNLOADER FB60 Eosinophils 0.20 0.03 - 0.48 x10(9)/L 01/12/2023 10:37 AM CONCHE LOADER AND UNLOADER FB60 Basophils <0.04 0.01 - 0.08 x10(9)/L 01/12/2023 10:37 AM CONCHE LOADER AND UNLOADER FB60 Blood (Blood, Venous) 01/12/2023 10:10 AM CONCHE LOADER AND UNLOADER 01/12/2023 10:10 AM CONCHE LOADER AND UNLOADER Mari Noguera M.D. LAB BLOOD ADD-ON Performing Organization Address City/[facility]/ZIP Co de Phone Number [facility] [address] [place] [address], [facility] FB60 [facility] in [place] [address] [place] [address] * (ABNORMAL) Immunoglobulins (IgG, IgA, and IgM) (12/29/2022 9:33 AM CDT) Pathologist [facility] Immunoglobulin A (IgA), S 44(L) 61 - 356 mg/dL 12/30/2022 7:28 AM CDT [facility] Immunoglobulin M (IgM), S 20(L) 37 - 286 mg/dL 12/30/2022 7:28 AM CDT [facility] Immunoglobulin G (IgG), S 834 767 - 1590 mg/dL 12/30/2022 7:29 AM CDT [facility] Blood (Blood, Venous) 12/29/2022 9:33 AM CDT 12/30/2022 6:12 AM CDT Mari Noguera M.D. LAB BLOOD ADD-ON [facility] [address] [place] [address] [facility] [address] [place] [address] * (ABNORMAL) Monoclonal Protein Study, Expanded Panel (12/02/2022 12:38 PM CDT) Pathologist [facility] Total Protein, S 7.2 6.3 - 7.9 g/dL 12/02/2022 9:55 PM CDT [facility] [place] Free Light Chain, S 2.46(H) 0.3300 - 1.94 mg/dL 12/05/2022 7:40 AM CDT ECL[facility] Lambda Free Light Chain, S 1.68 0.5700 - 2.63 mg/dL 12/05/2022 7:40 AM CDT ECL[facility] [place]/Lambda FLC Ratio 1.46 0.2600 - 1.65 12/05/2022 [...] PM CDT Narrative [facility] - 12/05/2022 3:27 PM CDT Specimen Information: Specimen ID: [id number] Specimen Type: Blood Specimen Collection Start Date: 12/02/2022 12:38 PM Specimen Received Date: 12/02/2022 ??9:33 PM Specimen ID: [id number] Specimen Type: Blood Specimen Collection Start Date: 12/02/2022 12:38 PM Specimen Received Date: 12/02/2022 ??9:33 PM Specimen ID: [id number] Specimen Type: Blood Specimen Collection Start Date: 12/02/2022 12:38 PM Specimen Received Date: 12/02/2022 ??9:33 PM Mari Noguera M.D. LAB BLOOD ADD-ON [facility] [address] [place] [address], [facility] ECLR [facility] in [address] [address] [address] [place] [phone] * (ABNORMAL) CBC with Differential, Blood (12/02/2022 12:38 PM CDT) [facility] Signature Hemoglobin 13.3 11.6 - 15.0 g/dL 12/02/2022 [...] CDT Mari Noguera M.D. LAB BLOOD ADD-ON [facility] [address] [place] [address], [facility] RDWG [facility] in [place] [address] [place] [phone] documented in this encounter Visit Diagnoses Diagnosis Multiple Myeloma Not Having Achieved Remission (HCC)- Primary Multiple Myeloma Not Having Achieved Remission (HCC) documented in this encounter Additional Health Concerns Infection Onset Date Last Indicated Resolved Time Protective Environment 06/03/2022 06/03/2022 documented as of this encounter Care Teams Tailer Off Relationship Specialty Start Date End Date Elsewhere, Pcp PCP - General Internal Medicine 04/01/22 documented as of this encounter
--- OUTSIDE RECORDS SUMMARY | 2023-03-21 10:36 | XMS_ITS | Encounter Summary ---
Author Name Unknown Organization [facility] Address [address] [place] [address] Care Team Providers Care Programming Specialist Name Role Phone Elsewhere, Pcp Primary Care Provider Unavailabl e Reason for Visit * Reason Comments Med Refill Encounter Details Date Type Department Care Team (Late st Contact Info) Description 11/14/2022 Refill Department of Oncology in [place], [place] [address] [place] [phone] Mari Noguera M.D. [address] [place] [phone] Med Refill Social History Tobacco [...] 06/11/2021 How often do you attend [facility] or samaritan services? 1 to 4 times per year 06/11/2021 Do you belong to any clubs o r organizations such as temple groups, unions, fraternal or athletic groups, or [...] Answer Date Recorded PHQ-2 Score 4 11/18/2021 [facility]at ionfl Health - Occupational Stress Questionnaire Answer Date [...] st Contact Info) Description 03/22/2023 7:30 AM OB/GYN DOCTOR Appointment Department of Laboratory Medicine and Pathology, [facility], in [place], [place] [address] [place] [address] Mari Noguera M.D. [address] [place] [address] 03/22/2023 8:45 AM OB/GYN DOCTOR Hospital Encounter Outpatient Procedure Center in [place], [place] [address] [place] [address] Mari Noguera M.D. [facility] [place] [phone] 03/31/2023 10:10 AM OB/GYN DOCTOR Appointment Department of Laboratory Medicine in [address] [place] [address] Mari Noguera M.D. [address] [place] [phone] 04/04/2023 3:20 PM OB/GYN DOCTOR Office Visit Department of Oncology in [address] [phone] Mari Noguera M.D. [address] [place] [phone] 04/04/2023 3:45 PM OB/GYN DOCTOR Infusion Department of Infusion Therapy in [address] [address] Mari Noguera M.D. [address] [place] [phone] 04/13/2023 10:10 AM OB/GYN DOCTOR Appointment Department of Laboratory Medicine in [address] [address] Mari Noguera M.D. [facility] [place] [address] 04/14/2023 9:00 AM OB/GYN DOCTOR Infusion Department of Infusion Therapy in [address] [phone] Mari Noguera M.D. [address] [place] [phone] documented as of this encounter Visit Diagnoses Diagnosis Multiple Myeloma Not Having Achieved Remission (HCC) documented in this encounter Additional Health Concerns Infection Onset Date Last Indicated Resolved Time Protective Environment 06/03/2022 06/03/2022 documented as of this encounter Care Teams Programming Specialist Relationship Specialty Start Date End Date Elsewhere, Pcp PCP - General Internal Medicine 04/01/22 documented as of this encounter
--- OUTSIDE RECORDS SUMMARY | 2023-03-21 10:36 | XMS_ITS | Encounter Summary ---
Author Name Unknown Organization [facility] Address [address] [place] [address] Care Team Providers Care Spool Sorter Name Role Phone Elsewhere, Pcp Primary [...] 17 total visits Mari Noguera M.D. [address] [place] [address] [facility] Region Referral ID Status Reason Start Date Expiration Date V isits Requested Visits Authorized [id number] Authorized 05/28/2021 02/27/2024 31 31 Encounter Details Date Type Department Care Team (Latest Contact Info) Description 12/01/2022 9:46 AM CDT - 12/01/2022 11:59 PM CDT Hospital Encounter Department of Laboratory Medicine in [place], [place] [address] [facility] [place] [phone] Mari Noguera M.D. [address] [place] [address] Multiple Myeloma Not Having Achieved [...] week 06/11/2021 How often do you attend [facility] or jehovah's witness services? 1 to 4 times per year [...] Answer Date Recorded PHQ-2 Score 4 11/18/2021 [facility]at ional Health - Occupational [...] st Contact Info) Description 03/22/2023 7:30 AM VP SCIENTIFIC Appointment Department of Laboratory Medicine and Pathology, [facility], in [place], [place] [address] [place] [address] Mari Noguera M.D. [address] [place] [phone] 03/22/2023 8:45 AM VP SCIENTIFIC Hospital Encounter Outpatient Procedure Center in [place], [place] [address] [place] [address] Mari Noguera M.D. [address] [place] [phone] 03/31/2023 10:10 AM VP SCIENTIFIC Appointment Department of Laboratory Medicine in [address] [place] [address] Mari Noguera M.D. [address] [place] [phone] 04/04/2023 3:20 PM VP SCIENTIFIC Office Visit Department of Oncology in [address] [address] Mari Noguera M.D. [address] [place] [phone] 04/04/2023 3:45 PM VP SCIENTIFIC Infusion Department of Infusion Therapy in [address] [address] Mari Noguera M.D. [address] [place] [phone] 04/13/2023 10:10 AM VP SCIENTIFIC Appointment Department of Laboratory Medicine in [address] [place] [address] Mari Noguera M.D. [address] [place] [phone] 04/14/2023 9:00 AM VP SCIENTIFIC Infusion Department of Infusion Therapy in [address] [phone] Mari Noguera M.D. [address] [place] [phone] documented as of this encounter Procedures Procedure [...] CDT Mari Noguera M.D. LAB BLOOD ADD-ON [facility] [address], [place] [address], [facility] OWAT [facility] in [place] [employer] [address], [place] [address] * (ABNORMAL) CBC with Differential, Blood (12/01/2022 [...] M.D. LAB BLOOD ADD-ON Performing Organization Address City/State/[facility] Co de Phone Number [facility] [address] [place] [address], [facility] FB60 [facility] in [place] [address] [place] [address] documented in this encounter Visit Diagnoses Diagnosis Multiple Myeloma Not Having Achieved Remission (HCC) documented in this encounter Additional Health Concerns Infection Onset Date Last Indicated Resolved Time Protective Environment 06/03/2022 06/03/2022 documented as of this encounter Care Teams Spool Sorter Relationship Specialty Start Date End Date Elsewhere, Pcp PCP - General Internal Medicine 04/01/22 documented as of this encounter
--- OUTSIDE RECORDS SUMMARY | 2023-03-21 10:36 | XMS_ITS | Encounter Summary ---
Author Name Unknown Organization [facility] Address [address] [place] [address] Care Team Providers Care Manager Floor Name Role Phone Elsewhere, Pcp Primary Care Provider Unavailabl e Reason for Visit * Reason Onset Date Comments Prescree Immunization Review 12/02/2022 Encounter Details Date Type Department Care Team (Latest Contact Info) Description 12/02/2022 Clinical Communication Section of Infectious Diseases in [place], [place] [address] [place] [address] Daren Juares, RAbrahamN. [address] [place] [address] Prescree Immunization Review Social History Tobacco Use [...] How often do you attend [facility] or tenriism services? 1 to 4 times [...] Answer Date Recorded PHQ-2 Score 4 11/18/2021 [facility] Questionnaire Answer Date [...] st Contact Info) Description 03/22/2023 7:30 AM BOILERMAKER HELPER Appointment Department of Laboratory Medicine and Pathology, [facility] in [place], [place] [address] [place] [address] Mari Noguera M.D. [address] [place] [phone] 03/22/2023 8:45 AM BOILERMAKER HELPER Hospital Encounter Outpatient Procedure Center in [place], [place] [address] [place] [address] Mari Noguera M.D. [address] [place] [phone] 03/31/2023 10:10 AM BOILERMAKER HELPER Appointment Department of Laboratory Medicine in [place], [place] [address] [place] [address] Mari Noguera M.D. [address] [place] [phone] 04/04/2023 3:20 PM BOILERMAKER HELPER Office Visit Department of Oncology in [address] [phone] Mari Noguera M.D. [address] [place] [phone] 04/04/2023 3:45 PM BOILERMAKER HELPER Infusion Department of Infusion Therapy in [address] [phone] aMri Noguera M.D. [address] [place] [phone] 04/13/2023 10:10 AM BOILERMAKER HELPER Appointment Department of Laboratory Medicine in [place] [address] [place] [phone] Mari Noguera M.D. [address] [place] [phone] 04/14/2023 9:00 AM BOILERMAKER HELPER Infusion Department of Infusion Therapy in [address] [phone] Mari Noguera M.D. [address] [place] [phone] documented as of this encounter Visit Diagnoses Not on filedocumented in this encounter Additional Health Concerns Infection Onset Date Last Indicated Resolved Time Protective Environment 06/03/2022 06/03/2022 documented as of this encounter Care Teams Manager Floor Relationship Specialty Start Date End Date Elsewhere, Pcp PCP - General Internal Medicine 04/01/22 documented as of this encounter
--- OUTSIDE RECORDS SUMMARY | 2023-03-21 10:36 | XMS_ITS | Encounter Summary ---
Author Name Unknown Organization [facility] Address [address] [place] [address] Care Team Providers Care Steel Tester Name Role Phone Elsewhere, Pcp Primary [...] day cycles / 17 total visits Mari Nogeura M.D. [address] [place] [address] [facility] Region Referral ID Status Reason Start Date Expiration Date V isits Requested Visits Authorized [id number] Authorized 05/28/2021 02/27/2024 31 31 Encounter Details Date Type Department Care Team (Late st Contact Info) Description 12/02/2022 2:15 PM CDT Infusion Department of Infusion Therapy in [place], [place] [address] [place] [phone] Mari Noguera M.D. [address] [place] [phone] Multiple Myeloma Not Having Achieved Remission [...] 4 11/18/2021 [facility] of Occupat ional [facility] - Occupational Stress Questionnaire Answer Date [...] st Contact Info) Description 03/22/2023 7:30 AM BIT TRIPOLER Appointment Department of Laboratory Medicine and Pathology, [facility], in [place], [place] [address] [place] [address] Mari Noguera M.D. [address] [place] [phone] 03/22/2023 8:45 AM BIT TRIPOLER Hospital Encounter Outpatient Procedure Center in [place], [place] [address] [place] [address] Mari Noguera M.D. [address] [place] [phone] 03/31/2023 10:10 AM BIT TRIPOLER Appointment Department of Laboratory Medicine in [address] [address] Mari Noguera M.D. [address] [place] [phone] 04/04/2023 3:20 PM BIT TRIPOLER Office Visit Department of Oncology in [address] [phone] Mari Noguera M.D. [address] [place] [phone] 04/04/2023 3:45 PM BIT TRIPOLER Infusion Department of Infusion Therapy in [address] [phone] Mari Noguera M.D. [address] [place] [phone] 04/13/2023 10:10 AM BIT TRIPOLER Appointment Department of Laboratory Medicine in [address] [place] [phone] Mari Noguera M.D. [address] [place] [phone] 04/14/2023 9:00 AM BIT TRIPOLER Infusion Department of Infusion Therapy in [place], [place] [address] [place] [address] Mari Noguera M.D. [address] [place] [phone] documented as of this encounter [...] documented as of this encounter Care Teams Steel Tester Relationship Specialty Start Date End Date Elsewhere, Pcp PCP - General Internal Medicine 04/01/22 documented as of this encounter
--- OUTSIDE RECORDS SUMMARY | 2023-03-21 10:37 | XMS_ITS | Encounter Summary ---
Author Name Unknown Organization [facility] Address [address] [place] [address] Care Team Providers Care Brick Chimney Supervisor Name Role Phone Elsewhere, Pcp Primary Care Provider Unavailabl e Reason for Visit * Reason Comments Chemotherapy Injections * Episode Based Medications (Routine) - Authorized Specialty Diagnoses / Procedures Referred By Guillermina t Referred To Contact Diagnoses Multiple Myeloma Not Having Achieved Remission (HCC) Procedures NC ONDANSETRON HCL INJECTION NC DARATUMUMAB, HYALURONIDASE NC BORTEZOMIB INJECTION 1,800 mg on Day 1, 8, 15, 22 for cycles 1 & 2, Day 1, 15 3-6, Day 1 for cycle 7 / 28 day cycles / 17 total visits Mari Noguera M.D. [address] [place] [address] [facility] Region Referral ID Status Reason Start Date Expiration Date V isits Requested Visits Authorized [id number] Authorized 05/28/2021 02/27/2024 31 31 Encounter Details Date Type Department Care Team (Late st Contact Info) Description 10/07/2022 11:45 AM CDT Infusion Department of Infusion Therapy in [address] [phone] Mari Noguera M.D. [address] [place] [phone] Multiple Myeloma Not Having Achieved Remission [...] 4 11/18/2021 [facility] of Occupat ional [facility] - Occupational Stress Questionnaire Answer Date [...] st Contact Info) Description 03/22/2023 7:30 AM BOARD MILL SUPERVISOR Appointment Department of Laboratory Medicine and Pathology, [facility], in [place], [place] [address] [place] [address] Mari Noguera M.D. [address] [place] [phone] 03/22/2023 8:45 AM BOARD MILL SUPERVISOR Hospital Encounter Outpatient Procedure Center in [place], [place] [address] [place] [address] Mari Noguera M.D. [address] [place] [phone] 03/31/2023 10:10 AM BOARD MILL SUPERVISOR Appointment Department of Laboratory Medicine in [address] [address] Mari Noguera M.D. [address] [place] [phone] 04/04/2023 3:20 PM BOARD MILL SUPERVISOR Office Visit Department of Oncology in [address] [phone] Mari Noguera M.D. [address] [place] [phone] 04/04/2023 3:45 PM BOARD MILL SUPERVISOR Infusion Department of Infusion Therapy in [address] [phone] Mari Noguera M.D. [address] [place] [phone] 04/13/2023 10:10 AM BOARD MILL SUPERVISOR Appointment Department of Laboratory Medicine in [place] [address] [place] [phone] Mari Noguera M.D. [address] [place] [phone] 04/14/2023 9:00 AM BOARD MILL SUPERVISOR Infusion Department of Infusion Therapy in [place], [place] [address] [place] [address] Mari Noguera M.D. [address] [place] [phone] documented as of this encounter [...] documented as of this encounter Care Teams Brick Chimney Supervisor Relationship Specialty Start Date End Date Elsewhere, Pcp PCP - General Internal Medicine 04/01/22 documented as of this encounter
--- OUTSIDE RECORDS SUMMARY | 2023-03-21 10:37 | XMS_ITS | Encounter Summary ---
Author Name Unknown Organization [facility] Address [address] [place] [address] Care Team Providers Care Accounts Payable Professional Name Role Phone Elsewhere, Pcp Primary [...] 17 total visits Mari Noguera M.D. [address] [place] [address] [facility] Region Referral ID Status Reason Start Date Expiration Date V isits Requested Visits Authorized [id number] Authorized 05/28/2021 02/27/2024 31 31 Encounter Details Date Type Department Care Team (Late st Contact Info) Description 09/23/2022 9:15 AM CDT Infusion Department of Infusion Therapy in [address] [phone] Mari Noguera M.D. [address] [place] [phone] Multiple Myeloma Not Having Achieved Remission (HCC) [...] do you attend [facility] or taoism services? 1 to 4 times [...] Answer Date Recorded PHQ-2 Score 4 11/18/2021 [facility] of Occupat ional Health - Occupational Stress [...] st Contact Info) Description 03/22/2023 7:30 AM TESTER SEMICONDUCTOR PACKAGES Appointment Department of Laboratory Medicine and Pathology, [facility] in [place], [place] [address] [place] [address] Mari Noguera M.D. [address] [place] [phone] 03/22/2023 8:45 AM TESTER SEMICONDUCTOR PACKAGES Hospital Encounter Outpatient Procedure Center in [place], [place] [address] [place] [address] Mari Noguera M.D. [address] [place] [phone] 03/31/2023 10:10 AM TESTER SEMICONDUCTOR PACKAGES Appointment Department of Laboratory Medicine in [place], [place] [address] [place] [address] Mari Noguera M.D. [address] [place] [phone] 04/04/2023 3:20 PM TESTER SEMICONDUCTOR PACKAGES Office Visit Department of Oncology in [address] [phone] Mari Noguera M.D. [address] [place] [phone] 04/04/2023 3:45 PM TESTER SEMICONDUCTOR PACKAGES Infusion Department of Infusion Therapy in [address] [phone] Mari Noguera M.D. [address] [place] [phone] 04/13/2023 10:10 AM TESTER SEMICONDUCTOR PACKAGES Appointment Department of Laboratory Medicine in [address] [place] [address] Mari Noguera M.D. [address] [place] [phone] 04/14/2023 9:00 AM TESTER SEMICONDUCTOR PACKAGES Infusion Department of Infusion Therapy in [address] [phone] Mari Noguera M.D. [address] [place] [phone] documented as of this encounter Visit Diagnoses [...] documented as of this encounter Care Teams Accounts Payable Professional Relationship Specialty Start Date End Date Elsewhere, Pcp PCP - General Internal Medicine 04/01/22 documented as of this encounter
--- OUTSIDE RECORDS SUMMARY | 2023-03-21 10:37 | XMS_ITS | Encounter Summary ---
Author Name Unknown Organization [facility] Address [address] [place] [address] Care Team Providers Care Boil Off Worker Name Role Phone Elsewhere, Pcp Primary Care Provider Unavailabl e Reason for Visit * Reason Onset Date Comments Med Question 09/09/2022 Encounter Details Date Type Department Care Team (Late st Contact Info) Description 09/09/2022 Clinical Communication Department of Oncology in [place], [place] [address] [place] [address] Mari Noguera M.D. [address] [place] [phone] Med Question Social History Tobacco [...] you attend [facility] or confucianist services? 1 to 4 times per year [...] 4 11/18/2021 [facility] of Occupat ional Health - Occupational [...] st Contact Info) Description 03/22/2023 7:30 AM PREVENTION RN Appointment Department of Laboratory Medicine and Pathology, [facility], in [place], [place] [address] [place] [address] Mari Noguera M.D. [facility] [place] [phone] 03/22/2023 8:45 AM PREVENTION RN Hospital Encounter Outpatient Procedure Center in [place], [place] [address] [place] [address] Mari Noguera M.D. [address] [place] [phone] 03/31/2023 10:10 AM PREVENTION RN Appointment Department of Laboratory Medicine in [address] [address] Mari Noguera M.D. [address] [place] [phone] 04/04/2023 3:20 PM PREVENTION RN Office Visit Department of Oncology in [address] [phone] Mari Noguera M.D. [address] [place] [phone] 04/04/2023 3:45 PM PREVENTION RN Infusion Department of Infusion Therapy in [address] [phone] Mari Noguera M.D. [address] [place] [phone] 04/13/2023 10:10 AM PREVENTION RN Appointment Department of Laboratory Medicine in [address] [phone] Mari Noguera M.D. [facility] [place] [address] 04/14/2023 9:00 AM PREVENTION RN Infusion Department of Infusion Therapy in [address] [phone] Mari Noguera M.D. [address] [place] [phone] documented as of this encounter Visit Diagnoses Not on filedocumented in this encounter Additional Health Concerns Infection Onset Date Last Indicated Resolved Time Protective Environment 06/03/2022 06/03/2022 documented as of this encounter Care Teams Boil Off Worker Relationship Specialty Start Date End Date Elsewhere, Pcp PCP - General Internal Medicine 04/01/22 documented as of this encounter
--- OUTSIDE RECORDS SUMMARY | 2023-03-21 10:37 | XMS_ITS | Encounter Summary ---
Author Name Unknown Organization [facility] Address [address] [place] [address] Care Team Providers Care Water/Wastewater Project Engineer Name Role Phone Elsewhere, Pcp Primary [...] 17 total visits Mari Noguera M.D. [address] [place] [address] [facility] Region Referral ID Status Reason Start Date Expiration Date V isits Requested Visits Authorized [id number] Authorized 05/28/2021 02/27/2024 31 31 Encounter Details Date Type Department Care Team (Late st Contact Info) Description 10/21/2022 2:15 PM CDT Infusion Department of Infusion Therapy in [address] [phone] Mari Noguera M.D. [address] [place] [phone] Multiple Myeloma Not Having Achieved Remission [...] 06/11/2021 How often do you attend [facility] or church services? 1 to 4 [...] Answer Date Recorded PHQ-2 Score 4 11/18/2021 [facility] of Occupat ional Health - Occupational Stress [...] st Contact Info) Description 03/22/2023 7:30 AM PROFESSOR OF VIOLIN Appointment Department of Laboratory Medicine and Pathology, [facility] in [place], [place] [address] [place] [address] Mari Noguera M.D. [address] [place] [phone] 03/22/2023 8:45 AM PROFESSOR OF VIOLIN Hospital Encounter Outpatient Procedure Center in [place], [place] [address] [place] [address] Mari Noguera M.D. [address] [place] [phone] 03/31/2023 10:10 AM PROFESSOR OF VIOLIN Appointment Department of Laboratory Medicine in [address] [address] Mari Noguera M.D. [address] [place] [phone] 04/04/2023 3:20 PM PROFESSOR OF VIOLIN Office Visit Department of Oncology in [address] [phone] Mari Noguera M.D. [address] [place] [phone] 04/04/2023 3:45 PM PROFESSOR OF VIOLIN Infusion Department of Infusion Therapy in [address] [phone] Mari Noguera M.D. [address] [place] [phone] 04/13/2023 10:10 AM PROFESSOR OF VIOLIN Appointment Department of Laboratory Medicine in [address] [address] Mari Noguera M.D. [address] [place] [phone] 04/14/2023 9:00 AM PROFESSOR OF VIOLIN Infusion Department of Infusion Therapy in [address] [phone] Mari Noguera M.D. [address] [place] [phone] documented as of this encounter Visit Diagnoses [...] documented as of this encounter Care Teams Water/Wastewater Project Engineer Relationship Specialty Start Date End Date Elsewhere, Pcp PCP - General Internal Medicine 04/01/22 documented as of this encounter
--- OUTSIDE RECORDS SUMMARY | 2023-03-21 10:37 | XMS_ITS | Encounter Summary ---
Author Name Unknown Organization [facility] Address [address] [place] [address] Care Team Providers Care Microcomputer Technician Name Role Phone Elsewhere, Pcp Primary Care Provider Unavailabl e Reason for Visit * Reason Comments Med Refill Encounter Details Date Type Department Care Team (Late st Contact Info) Description 10/17/2022 Refill Department of Oncology in [place], [place] [address] [place] [phone] Mari Noguera M.D. [address] [place] [address] Med Refill Social History Tobacco [...] 06/11/2021 How often do you attend [facility] or nondenominational services? 1 to 4 times [...] Recorded PHQ-2 Score 4 11/18/2021 [facility] - Occupational [...] st Contact Info) Description 03/22/2023 7:30 AM PREKINDERGARTEN TEACHER Appointment Department of Laboratory Medicine and Pathology, [facility], in [place], [place] [address] [place] [address] Mari Noguera M.D. [address] [place] [phone] 03/22/2023 8:45 AM PREKINDERGARTEN TEACHER Hospital Encounter Outpatient Procedure Center in [place], [place] [address] [place] [address] Mari Noguera M.D. [facility] [place] [phone] 03/31/2023 10:10 AM PREKINDERGARTEN TEACHER Appointment Department of Laboratory Medicine in [address] [place] [address] Mari Noguera M.D. [address] [place] [phone] 04/04/2023 3:20 PM PREKINDERGARTEN TEACHER Office Visit Department of Oncology in [address] [phone] Mari Noguera M.D. [address] [place] [phone] 04/04/2023 3:45 PM PREKINDERGARTEN TEACHER Infusion Department of Infusion Therapy in [address] [address] Mari Noguera M.D. [address] [place] [phone] 04/13/2023 10:10 AM PREKINDERGARTEN TEACHER Appointment Department of Laboratory Medicine in [address] [phone] Mari Noguera M.D. [facility] [place] [address] 04/14/2023 9:00 AM PREKINDERGARTEN TEACHER Infusion Department of Infusion Therapy in [address] [phone] Mari Noguera M.D. [address] [place] [phone] documented as of this encounter Visit Diagnoses Diagnosis Multiple Myeloma Not Having Achieved Remission (HCC) documented in this encounter Additional Health Concerns Infection Onset Date Last Indicated Resolved Time Protective Environment 06/03/2022 06/03/2022 documented as of this encounter Care Teams Microcomputer Technician Relationship Specialty Start Date End Date Elsewhere, Pcp PCP - General Internal Medicine 04/01/22 documented as of this encounter
--- OUTSIDE RECORDS SUMMARY | 2023-03-21 10:37 | XMS_ITS | Encounter Summary ---
Author Name Unknown Organization [facility] Address [address] [place] [address] Care Team Providers Care Combat Systems Officer Name Role Phone Elsewhere, Pcp Primary [...] 17 total visits Mari Noguera M.D. [address] [place] [address] [facility] Region Referral ID Status Reason Start Date Expiration Date V isits Requested Visits Authorized [id number] Authorized 05/28/2021 02/27/2024 31 31 Encounter Details Date Type Department Care Team (Latest Contact Info) Description 09/23/2022 8:11 AM CDT - 09/23/2022 11:59 PM CDT Hospital Encounter Department of Laboratory Medicine in [place], [place] [address] [place] [phone] Mari Noguera M.D. [address] [place] [address] Multiple Myeloma Not Having Achieved [...] How often do you attend [facility] or confucianism services? 1 to 4 [...] Take 140 mg by mouth. 0 09/01/20222022 magnesium chloride (SLOW-MAG) 71.[address] tablet [...] st Contact Info) Description 03/22/2023 7:30 AM ASSISTANT STORE DIRECTOR Appointment Department of Laboratory Medicine and Pathology, [facility], in [place], [place] [address] [place] [address] Mari Noguera M.D. [address] [place] [phone] 03/22/2023 8:45 AM ASSISTANT STORE DIRECTOR Hospital Encounter Outpatient Procedure Center in [place], [place] [address] [place] [address] Mari Noguera M.D. [address] [place] [phone] 03/31/2023 10:10 AM ASSISTANT STORE DIRECTOR Appointment Department of Laboratory Medicine in [place], [place] [address] [place] [address] Mari Noguera M.D. [address] [place] [phone] 04/04/2023 3:20 PM ASSISTANT STORE DIRECTOR Office Visit Department of Oncology in [address] [phone] Mari Noguera M.D. [address] [place] [phone] 04/04/2023 3:45 PM ASSISTANT STORE DIRECTOR Infusion Department of Infusion Therapy in [address] [phone] Mari Noguera M.D. [address] [place] [phone] 04/13/2023 10:10 AM ASSISTANT STORE DIRECTOR Appointment Department of Laboratory Medicine in [place], [place] [address] [place] [address] Mari Noguera M.D. [address] [place] [phone] 04/14/2023 9:00 AM ASSISTANT STORE DIRECTOR Infusion Department of Infusion Therapy in [address] [phone] Mari Noguera M.D. [address] [place] [phone] documented as of this encounter Procedures [...] CDT Mari Noguera M.D. LAB BLOOD ADD-ON [facility] [address] [place] [address], [facility] RDWG [facility] in [place] [address] [place] [phone] * (ABNORMAL) Monoclonal Protein Study, Expanded Panel (09/23/2022 8:23 AM CDT) Total Protein, S 5.7(L) 6.3 - 7.9 g/dL 09/23/2022 3:32 PM CDT ECLR Fleming-Neon Free Light Chain, S 1.50 0.3300 - 1.94 mg/dL 09/26/2022 9:21 AM CDT ECLR Lambda Free Light Chain, S 1.42 0.5700 - 2.63 mg/dL 09/26/2022 9:21 AM CDT ECLR Fleming-Neon/Lambda FLC Ratio 1.06 0.2600 - 1.65 09/26/2022 [...] AM CDT 09/23/2022 2:49 PM CDT Narrative [facility] - 09/27/2022 9:26 AM CDT Specimen Information: Specimen ID: [id number] Specimen Type: Blood Specimen Collection Start Date: 09/23/2022 ??8:23 AM Specimen Received Date: 09/23/2022 ??2:49 PM Specimen ID: [id number] Specimen Type: Blood Specimen Collection Start Date: 09/23/2022 ??8:23 AM Specimen Received Date: 09/23/2022 ??2:49 PM Specimen ID: [id number] Specimen Type: Blood Specimen Collection Start Date: 09/23/2022 ??8:23 AM Specimen Received Date: 09/23/2022 ??2:49 PM Mari Noguera M.D. LAB BLOOD ADD-ON [facility] [address] [place] [address], [facility] ECLR [facility] in [address] [address] [address] [place] [phone] documented in this encounter Visit Diagnoses Diagnosis Multiple Myeloma Not Having Achieved Remission (HCC) documented in this encounter Additional Health Concerns Infection Onset Date Last Indicated Resolved Time Protective Environment 06/03/2022 06/03/2022 documented as of this encounter Care Teams Combat Systems Officer Relationship Specialty Start Date End Date Elsewhere, Pcp PCP - General Internal Medicine 04/01/22 documented as of this encounter
--- OUTSIDE RECORDS SUMMARY | 2023-03-21 10:37 | XMS_ITS | Encounter Summary ---
Author Name Unknown Organization [facility] Address [address] [place] [address] Care Team Providers Care Bucket Wash Operator Name Role Phone Elsewhere, Pcp Primary [...] 17 total visits Mari Noguera M.D. [address] [place] [address] [facility] Region Referral ID Status Reason Start Date Expiration Date V isits Requested Visits Authorized [id number] Authorized 05/28/2021 02/27/2024 31 31 Encounter Details Date Type Department Care Team (Latest Contact Info) Description 10/07/2022 10:19 AM CDT - 10/07/2022 11:59 PM CDT Hospital Encounter Department of Laboratory Medicine in [place], [place] [address] [place] [phone] Mari Noguera M.D. [address] [place] [phone] Multiple Myeloma Not Having Achieved [...] do you attend [facility] or cheondoism services? 1 to 4 times [...] Answer Date Recorded PHQ-2 Score 4 11/18/2021 [facility] ional [facility] [...] 21 capsule 0 09/23/2022 10/17/2022 magnesium chloride (SLOW-MAG) 71.[address] tablet [...] st Contact Info) Description 03/22/2023 7:30 AM DYE MAKER Appointment Department of Laboratory Medicine and Pathology, [facility], in [place], [place] [address] [place] [address] Mari Noguera M.D. [address] [place] [phone] 03/22/2023 8:45 AM DYE MAKER Hospital Encounter Outpatient Procedure Center in [place], [place] [address] [place] [address] Mari Noguera M.D. [address] [place] [phone] 03/31/2023 10:10 AM DYE MAKER Appointment Department of Laboratory Medicine in [address] [address] Mari Noguera M.D. [address] [place] [phone] 04/04/2023 3:20 PM DYE MAKER Office Visit Department of Oncology in [address] [phone] Mari Noguera M.D. [address] [place] [phone] 04/04/2023 3:45 PM DYE MAKER Infusion Department of Infusion Therapy in [address] [phone] Mari Noguera M.D. [address] [place] [phone] 04/13/2023 10:10 AM DYE MAKER Appointment Department of Laboratory Medicine in [address] [phone] Mari Noguera M.D. [address] [place] [phone] 04/14/2023 9:00 AM DYE MAKER Infusion Department of Infusion Therapy in [address] [phone] Mari Noguera M.D. [address] [place] [address] MICKI Perez [phone] documented as of this encounter Procedures Procedure [...] M.D. LAB BLOOD ADD-ON Performing Organization Address City/State/[facility] Co de Phone Number [facility] [address] [place] [address], [facility] RDWG [facility] in [place] [address] [place] [phone] * (ABNORMAL) CBC with Differential, Blood (10/07/2022 [...] CDT Mari Noguera M.D. LAB BLOOD ADD-ON [facility] [address] [place] [address], [facility] RDWG [facility] in [place] [address] [place] [address] documented in this encounter Visit Diagnoses Diagnosis Multiple Myeloma Not Having Achieved Remission (HCC) documented in this encounter Additional Health Concerns Infection Onset Date Last Indicated Resolved Time Protective Environment 06/03/2022 06/03/2022 documented as of this encounter Care Teams Bucket Wash Operator Relationship Specialty Start Date End Date Elsewhere, Pcp PCP - General Internal Medicine 04/01/22 documented as of this encounter
--- OUTSIDE RECORDS SUMMARY | 2023-03-21 10:37 | XMS_ITS | Encounter Summary ---
Author Name Unknown Organization [facility] Address [address] [place] [address] Care Team Providers Care Bottom Brusher Name Role Phone Elsewhere, Pcp Primary Care Provider Unavailabl e Reason for Referral * Outpatient (Routine) Specialty Diagnoses / Procedures [facility] Referred To Contact Hematology Oncology Mari Noguera M.D. [address] [place] [phone] [facility] Region Referral ID Status Reason Start Date Expiration Date Visits Re quested Visits Authorized * Outpatient (Routine) Specialty Diagnoses / Procedures Referred By [facility] Referred To Contact Hematology Oncology Mari Noguera M.D. [address] [place] [phone] [facility] Region Referral ID Status [...] 17 total visits Mari Noguera M.D. [address] [place] [address] [facility] Region Referral ID Status Reason Start Date Expiration Date V isits Requested Visits Authorized [id number] Authorized 05/28/2021 02/27/2024 31 31 Encounter Details Date Type Department Care Team (Late st Contact Info) Description 10/07/2022 11:20 AM CDT Office Visit Department of Oncology in [place], [place] [address] [place] [phone] Mari Noguera M.D. [address] [place] [address] Multiple Myeloma Not Having [...] 11/18/2021 [facility] of Occupat ional [facility] - Occupational Stress Questionnaire Answer Date [...] chains: kappa: 8.01 mg/L; lambda: 33.64 mg/L; [place]:Lambda Ratio: 0.24 SPEP: M-spike: 3.26 g/dL Immunofixation: [...] st Contact Info) Description 03/22/2023 7:30 AM CLEANER WALL Appointment Department of Laboratory Medicine and Pathology, [facility] in [place], [place] [address] [place] [address] Mari Noguera M.D. [address] [place] [phone] 03/22/2023 8:45 AM CLEANER WALL Hospital Encounter Outpatient Procedure Center in [place], [place] [address] [place] [address] Mari Noguera M.D. [address] [place] [phone] 03/31/2023 10:10 AM CLEANER WALL Appointment Department of Laboratory Medicine in [address] [phone] Mari Noguera M.D. [address] [place] [phone] 04/04/2023 3:20 PM CLEANER WALL Office Visit Department of Oncology in [address] [phone] Mari Noguera M.D. [address] [place] [phone] 04/04/2023 3:45 PM CLEANER WALL Infusion Department of Infusion Therapy in [address] [phone] Mari Noguera M.D. [address] [place] [phone] 04/13/2023 10:10 AM CLEANER WALL Appointment Department of Laboratory Medicine in [place] [address] [place] [phone] Mari Noguera M.D. [address] [place] [phone] 04/14/2023 9:00 AM CLEANER WALL Infusion Department of Infusion Therapy in [address] [phone] Mari Noguera M.D. [address] [place] [phone] Scheduled Referrals Name Type Priority Associated Diagnoses Order Schedule Hematology office visit (clinic) [facility]; Pre-Chemo Outpatient Referral Routine Multiple Myeloma Not Having Achieved Remission (HCC) Expected: 11/04/2022, Expires: 11/05/2023 Hematology office visit (clinic) [facility]; Pre-Chemo Outpatient Referral Routine Multiple Myeloma Not [...] CDT Mari Noguera M.D. LAB BLOOD ADD-ON [facility] [address] [place] [address], [place] [facility] in [place] [address] [place] [address] * (ABNORMAL) CBC with Differential, Blood (12/01/2022 [...] CDT Mari Noguera M.D. LAB BLOOD ADD-ON [facility] [address] [place] [address], [facility] FB60 [facility] [place] in [place] 300 [facility] [place] [address] * (ABNORMAL) CBC with Differential, Blood (11/18/2022 10:12 AM CDT) [facility] Hemoglobin 11.7 11.6 - 15.0 g/dL 11/18/2022 [...] CDT Mari Noguera M.D. LAB BLOOD ADD-ON [facility] [address] [place] [address], [facility] FB60 [facility] [place] in [place] [address] [place] [address] * (ABNORMAL) CBC with Differential, Blood (11/10/2022 [...] CDT Mari Noguera M.D. LAB BLOOD ADD-ON [facility] [address] [place] [address], [facility] FB60 [facility] [place] [facility] [place] [address] [place] [address] * (ABNORMAL) CBC with Differential, Blood (10/20/2022 [...] CDT Mari Noguera M.D. LAB BLOOD ADD-ON [facility] [address] [place] [address], [facility] FB60 [facility] [place] in [place] [address] [place] [address] documented in this encounter Visit Diagnoses Diagnosis Multiple Myeloma Not Having Achieved Remission (HCC)- Primary documented in this encounter Additional Health Concerns Infection Onset Date Last Indicated Resolved Time Protective Environment 06/03/2022 06/03/2022 documented as of this encounter Care Teams Bottom Brusher Relationship Specialty Start Date End Date Elsewhere, Pcp PCP - General Internal Medicine 04/01/22 documented as of this encounter
--- OUTSIDE RECORDS SUMMARY | 2023-03-21 10:37 | XMS_ITS | Encounter Summary ---
Author Name Unknown Organization [facility] Address [address] [place] [address] Care Team Providers Care Mortgage Manager Name Role Phone Elsewhere, Pcp Primary Care Provider Unavailabl e Reason for Visit * Reason Comments Med Refill Encounter Details Date Type Department Care Team (Late st Contact Info) Description 09/19/2022 Refill Department of Oncology in [place], [place] [address] [place] [phone] Mari Noguera M.D. [address] [place] [address] Med Refill Social History Tobacco [...] 06/11/2021 How often do you attend [facility] or hoahaoism services? 1 to 4 times [...] Score 4 11/18/2021 [facility] - Occupational Stress Questionnaire Answer Date [...] st Contact Info) Description 03/22/2023 7:30 AM RAIL OPERATIONS CONTROLLER Appointment Department of Laboratory Medicine and Pathology, [facility], in [place], [place] [address] [place] [address] Mari Noguera M.D. [address] [place] [address] 03/22/2023 8:45 AM RAIL OPERATIONS CONTROLLER Hospital Encounter Outpatient Procedure Center in [place], [place] [address] [place] [address] Mari Noguera M.D. [facility] [place] [phone] 03/31/2023 10:10 AM RAIL OPERATIONS CONTROLLER Appointment Department of Laboratory Medicine in [address] [place] [address] Mari Noguera M.D. [address] [place] [phone] 04/04/2023 3:20 PM RAIL OPERATIONS CONTROLLER Office Visit Department of Oncology in [address] [phone] Mari Noguera M.D. [address] [place] [phone] 04/04/2023 3:45 PM RAIL OPERATIONS CONTROLLER Infusion Department of Infusion Therapy in [address] [phone] Mari Noguera M.D. [address] [place] [phone] 04/13/2023 10:10 AM RAIL OPERATIONS CONTROLLER Appointment Department of Laboratory Medicine in [address] [address] Mari Noguera M.D. [facility] [phone] 04/14/2023 9:00 AM RAIL OPERATIONS CONTROLLER Infusion Department of Infusion Therapy in [address] [phone] Mari Noguera M.D. [address] [place] [phone] documented as of this encounter Visit Diagnoses Diagnosis Multiple Myeloma Not Having Achieved Remission (HCC) documented in this encounter Additional Health Concerns Infection Onset Date Last Indicated Resolved Time Protective Environment 06/03/2022 06/03/2022 documented as of this encounter Care Teams Mortgage Manager Relationship Specialty Start Date End Date Elsewhere, Pcp PCP - General Internal Medicine 04/01/22 documented as of this encounter
--- OUTSIDE RECORDS SUMMARY | 2023-03-21 10:37 | XMS_ITS | Encounter Summary ---
Author Name Unknown Organization [facility] Address [address] [place] [address] Care Team Providers Care Software Writer Name Role Phone Elsewhere, Pcp Primary Care [...] 17 total visits Mari Noguera M.D. [address] [place] [address] [facility] Region Referral ID Status Reason Start Date Expiration Date V isits Requested Visits Authorized [id number] Authorized 05/28/2021 02/27/2024 31 31 Encounter Details Date Type Department Care Team (Latest Contact Info) Description 11/10/2022 10:20 AM CDT - 11/10/2022 11:59 PM CDT Hospital Encounter Department of Laboratory Medicine in [place], [place] [address] [facility] [place] [address] Mari Noguera M.D. [address] [place] [address] Multiple Myeloma Not Having Achieved [...] How often do you attend [facility] or baptist services? 1 to 4 times [...] or open. 21 capsule 0 10/20/2022 11/14/2022 magnesium chloride (SLOW-MAG) 71.[address] tablet [...] st Contact Info) Description 03/22/2023 7:30 AM DOCK GRADER Appointment Department of Laboratory Medicine and Pathology, [facility], in [place], [place] [address] [place] [address] Mari Noguera M.D. [address] [place] [phone] 03/22/2023 8:45 AM DOCK GRADER Hospital Encounter Outpatient Procedure Center in [place], [place] [address] [place] [address] Mari Noguera M.D. [address] [place] [phone] 03/31/2023 10:10 AM DOCK GRADER Appointment Department of Laboratory Medicine in [address] [address] Mari Noguera M.D. [address] [place] [phone] 04/04/2023 3:20 PM DOCK GRADER Office Visit Department of Oncology in [address] [phone] Mari Noguera M.D. [address] [place] [phone] 04/04/2023 3:45 PM DOCK GRADER Infusion Department of Infusion Therapy in [address] [phone] Mari Noguera M.D. [address] [place] [phone] 04/13/2023 10:10 AM DOCK GRADER Appointment Department of Laboratory Medicine in [address] [phone] Mari Noguera M.D. [address] [place] [phone] 04/14/2023 9:00 AM DOCK GRADER Infusion Department of Infusion Therapy in [address] [phone] Mari Noguera M.D. [address] [place] [address] MICKI Perez [phone] documented as of this encounter Procedures Procedure [...] Noguera M.D. LAB BLOOD ADD-ON [facility] [address] [place] [address], [facility] FB60 [facility] in [place] [address] [place] [address] documented in this encounter Visit Diagnoses Diagnosis Multiple Myeloma Not Having Achieved Remission (HCC) documented in this encounter Additional Health Concerns Infection Onset Date Last Indicated Resolved Time Protective Environment 06/03/2022 06/03/2022 documented as of this encounter Care Teams Software Writer Relationship Specialty Start Date End Date Elsewhere, Pcp PCP - General Internal Medicine 04/01/22 documented as of this encounter
--- OUTSIDE RECORDS SUMMARY | 2023-03-21 10:37 | XMS_ITS | Encounter Summary ---
Author Name Unknown Organization [facility] Address [address] [place] [address] Care Team Providers Care Rn Mental Health Name Role Phone Elsewhere, Pcp Primary Care [...] 17 total visits Mari Noguera M.D. [address] [place] [address] [facility] Region Referral ID Status Reason Start Date Expiration Date V isits Requested Visits Authorized [id number] Authorized 05/28/2021 02/27/2024 31 31 Encounter Details Date Type Department Care Team (Latest Contact Info) Description 10/20/2022 9:44 AM CDT - 10/20/2022 11:59 PM CDT Hospital Encounter Department of Laboratory Medicine in [place], [place] [address] [place] [phone] Mari Noguera M.D. [address] [place] [phone] Multiple Myeloma Not Having Achieved [...] you attend [facility] or synagogue services? 1 to 4 [...] Answer Date Recorded PHQ-2 Score 4 11/18/2021 [facility]at ional Health - [...] st Contact Info) Description 03/22/2023 7:30 AM SALES SUPPORT MANAGER Appointment Department of Laboratory Medicine and Pathology, [facility], in [place], [place] [address] [place] [address] Mari Noguera M.D. [address] [place] [phone] 03/22/2023 8:45 AM SALES SUPPORT MANAGER Hospital Encounter Outpatient Procedure Center in [place], [place] [address] [place] [address] aMri Noguera M.D. [address] [place] [phone] 03/31/2023 10:10 AM SALES SUPPORT MANAGER Appointment Department of Laboratory Medicine in [address] [phone] Mari Noguera M.D. [address] [place] [phone] 04/04/2023 3:20 PM SALES SUPPORT MANAGER Office Visit Department of Oncology in [address] [phone] Mari Noguera M.D. [address] [place] [phone] 04/04/2023 3:45 PM SALES SUPPORT MANAGER Infusion Department of Infusion Therapy in [address] [phone] Mari Noguera M.D. [address] [place] [phone] 04/13/2023 10:10 AM SALES SUPPORT MANAGER Appointment Department of Laboratory Medicine in [address] [phone] Mari Noguera M.D. [address] [place] [phone] 04/14/2023 9:00 AM SALES SUPPORT MANAGER Infusion Department of Infusion Therapy in [address] [phone] Mari Noguera M.D. [address] [place] [address] MICKI Perez [phone] documented as of this encounter Procedures Procedure [...] M.D. LAB BLOOD ADD-ON [facility] [address] [place] [address], [facility] FB60 [facility] in [place] [address] [place] [address] documented in this encounter Visit Diagnoses Diagnosis Multiple Myeloma Not Having Achieved Remission (HCC) documented in this encounter Additional Health Concerns Infection Onset Date Last Indicated Resolved Time Protective Environment 06/03/2022 06/03/2022 documented as of this encounter Care Teams Rn Mental Health Relationship Specialty Start Date End Date Elsewhere, Pcp PCP - General Internal Medicine 04/01/22 documented as of this encounter
--- OUTSIDE RECORDS SUMMARY | 2023-03-21 10:38 | XMS_ITS | Encounter Summary ---
Author Name Unknown Organization [facility] Address [address] [place] [address] Care Team Providers Care Lapel Padder Blindstitch Name Role Phone Elsewhere, Pcp Primary Care Provider Unavailabl e Reason for Visit * Episode Based Medications (Routine) - Authorized Specialty Diagnoses / Procedures Referred By Guillermina zamora Referred To Contact Diagnoses Multiple Myeloma Not Having Achieved Remission (HCC) Procedures NM ONDANSETRON HCL INJECTION NM DARATUMUMAB, HYALURONIDASE NM BORTEZOMIB INJECTION 1,800 mg on Day 1, 8, 15, 22 for cycles 1 & 2, Day 1, 15 3-6, Day 1 for cycle 7 / 28 day cycles / 17 total visits Mari Noguera M.D. [address] [place] [address] [facility] Region Referral ID Status Reason Start Date Expiration Date V isits Requested Visits Authorized [id number] Authorized 05/28/2021 02/27/2024 31 31 Encounter Details Date Type Department Care Team (Latest Contact Info) Description 08/26/2022 1:00 PM CDT - 08/26/2022 11:59 PM CDT Hospital Encounter Department of Laboratory Medicine in [place], [place] [address] [place] [phone] Mari Noguera M.D. [address] [place] [phone] Multiple Myeloma Not Having Achieved [...] week 06/11/2021 How often do you attend [facility] or faith services? 1 to 4 times [...] Date Recorded PHQ-2 Score 4 11/18/2021 [facility] Occupat ional Health - [...] 15 capsule 0 08/25/2022 09/19/2022 magnesium chloride (SLOW-MAG) 71.[address] tablet Take 2 tablets (143 mg total) by mouth every morning before breakfast. Do not crush or chew. 30 tablet 1 01/28/2022 03/16/2023 penicillin V potassium (VEETIDS) 500 mg tablet Take 1 tablet (500 mg total) by mouth 2 (two) times a day. 60 tablet 11 12/01/2021 12/08/2022 RX WELCOME [id number] ONLY Welcome packet 1 each 0 04/26/2022 08/31/2022 documented as of this encounter Plan of Treatment Upcoming Encounters Date Type Department Care Team (Late st Contact Info) Description 03/22/2023 7:30 AM RESEARCH ENGINEER Appointment Department of Laboratory Medicine and Pathology, [facility] in [place], [place] [address] [place] [address] Mari Noguera M.D. [address] [place] [phone] 03/22/2023 8:45 AM RESEARCH ENGINEER Hospital Encounter Outpatient Procedure Center in [place], [place] [address] [place] [address] Mari Noguera M.D. [address] [place] [phone] 03/31/2023 10:10 AM RESEARCH ENGINEER Appointment Department of Laboratory Medicine in [address] [address] Mari Noguera M.D. [address] [place] [phone] 04/04/2023 3:20 PM RESEARCH ENGINEER Office Visit Department of Oncology in [address] [phone] Mari Noguera M.D. [address] [place] [phone] 04/04/2023 3:45 PM RESEARCH ENGINEER Infusion Department of Infusion Therapy in [address] [phone] Mari Noguera M.D. [address] [place] [phone] 04/13/2023 10:10 AM RESEARCH ENGINEER Appointment Department of Laboratory Medicine in [place] [address] [facility] [place] [address] Mari Noguera M.D. [address] [place] [phone] 04/14/2023 9:00 AM RESEARCH ENGINEER Infusion Department of Infusion Therapy in [address] [phone] Mari Noguera M.D. [address] [place] [phone] documented as of this encounter Procedures [...] Differential, Blood (08/26/2022 1:12 PM CDT) Pathologist [facility] Hemoglobin 11.8 11.6 - 15.0 g/dL 08/26/2022 [...] CDT Mari Noguera M.D. LAB BLOOD ADD-ON [facility] [address] [place] [address], [facility] RDWG [facility] in [address] [phone] * (ABNORMAL) Monoclonal Protein Study, Expanded Panel (08/26/2022 1:12 PM CDT) Total Protein, S 5.7(L) 6.3 - 7.9 g/dL 08/26/2022 9:00 PM CDT ECLR [place] Free Light Chain, S 1.10 0.3300 - 1.94 mg/dL 08/29/2022 8:21 AM CDT ECLR Lambda Free Light Chain, S 1.23 0.5700 - 2.63 mg/dL 08/29/2022 8:21 AM CDT ECLR [place]/Lambda FLC Ratio 0.8943 0.2600 - 1.65 08/29/2022 [...] 1:12 PM CDT 08/26/2022 8:35 PM CDT [facility] - 08/29/2022 3:35 PM CDT Specimen Information: Specimen ID: [id number] Specimen Type: Blood Specimen Collection Start Date: 08/26/2022 ??1:12 PM Specimen Received Date: 08/26/2022 ??8:35 PM Specimen ID: [id number] Specimen Type: Blood Specimen Collection Start Date: 08/26/2022 ??1:12 PM Specimen Received Date: 08/26/2022 ??8:35 PM Specimen ID: [id number] Specimen Type: Blood Specimen Collection Start Date: 08/26/2022 ??1:12 PM Specimen Received Date: 08/26/2022 ??8:35 PM Mari Noguera M.D. LAB BLOOD ADD-ON [facility] [address] [place] [address], [facility] ECLR [facility] in [place] [address] [place] [address] ECLR [address] [facility] [address] [place] [phone] documented in this encounter Visit Diagnoses Diagnosis Multiple Myeloma Not Having Achieved Remission (HCC) documented in this encounter Additional Health Concerns Infection Onset Date Last Indicated Resolved Time Protective Environment 06/03/2022 06/03/2022 documented as of this encounter Care Teams Lapel Padder Blindstitch Relationship Specialty Start Date End Date Elsewhere, Pcp PCP - General Internal Medicine 04/01/22 documented as of this encounter
--- OUTSIDE RECORDS SUMMARY | 2023-03-21 10:38 | XMS_ITS | Encounter Summary ---
Author Name Unknown Organization [facility] Address [address] [place] [address] Care Team Providers Care Hazard Waste Handler Name Role Phone Elsewhere, Pcp Primary Care Provider Unavailabl e Encounter Details Date Type Department Care Team (Late st Contact Info) Description 09/09/2022 Orders Only Department of Oncology in [place], [place] [address] [place] [phone] Mari Noguera M.D. [address] [place] [phone] Multiple Myeloma Not Having Achieved [...] 06/11/2021 How often do you attend [facility] or yazidism services? 1 to 4 times [...] Score 4 11/18/2021 [facility] - Occupational Stress Questionnaire Answer Date [...] st Contact Info) Description 03/22/2023 7:30 AM SOFTWARE QUALITY TESTER Appointment Department of Laboratory Medicine and Pathology, [facility], in [place], [place] [address] [place] [address] Mari Noguera M.D. [address] [place] [address] 03/22/2023 8:45 AM SOFTWARE QUALITY TESTER Hospital Encounter Outpatient Procedure Center in [place], [place] [address] [place] [address] Mari Noguera M.D. [facility] [phone] 03/31/2023 10:10 AM SOFTWARE QUALITY TESTER Appointment Department of Laboratory Medicine in [address] [place] [address] Mari Noguera M.D. [address] [place] [phone] 04/04/2023 3:20 PM SOFTWARE QUALITY TESTER Office Visit Department of Oncology in [address] [phone] Mari Noguera M.D. [address] [place] [phone] 04/04/2023 3:45 PM SOFTWARE QUALITY TESTER Infusion Department of Infusion Therapy in [address] [phone] Mari Noguera M.D. [address] [place] [phone] 04/13/2023 10:10 AM SOFTWARE QUALITY TESTER Appointment Department of Laboratory Medicine in [address] [phone] Mari Noguera M.D. [facility] [address] 04/14/2023 9:00 AM SOFTWARE QUALITY TESTER Infusion Department of Infusion Therapy in [address] [phone] Mari Noguera M.D. [address] [place] [address] Juancho Mancia, MICKI [phone] documented as of this encounter [...] CDT Mari Noguera M.D. LAB BLOOD ADD-ON [facility] [address] [place] [address], [facility] RDWG [facility] in [place] [address] [place] [address] * (ABNORMAL) Monoclonal Protein Study, Expanded Panel (09/23/2022 8:23 AM CDT) Total Protein, S 5.7(L) 6.3 - 7.9 g/dL 09/23/2022 3:32 PM CDT ECLR [place] Free Light Chain, S 1.50 0.3300 - 1.94 mg/dL 09/26/2022 9:21 AM CDT ECLR Lambda Free Light Chain, S 1.42 0.5700 - 2.63 mg/dL 09/26/2022 9:21 AM CDT ECLR [place]/Lambda FLC Ratio 1.06 0.2600 - 1.65 09/26/2022 [...] AM CDT 09/23/2022 2:49 PM CDT Narrative [facility] - 09/27/2022 9:26 AM CDT Specimen Information: Specimen ID: [id number] Specimen Type: Blood Specimen Collection Start Date: 09/23/2022 ??8:23 AM Specimen Received Date: 09/23/2022 ??2:49 PM Specimen ID: [id number] Specimen Type: Blood Specimen Collection Start Date: 09/23/2022 ??8:23 AM Specimen Received Date: 09/23/2022 ??2:49 PM Specimen ID: [id number] Specimen Type: Blood Specimen Collection Start Date: 09/23/2022 ??8:23 AM Specimen Received Date: 09/23/2022 ??2:49 PM Mari Noguera M.D. LAB BLOOD ADD-ON [facility] [address] [place] [address], [facility] ECLR [facility] in [address] [place] [phone] documented in this encounter Visit Diagnoses Diagnosis Multiple Myeloma Not Having Achieved Remission (HCC)- Primary Multiple Myeloma Not Having Achieved Remission (HCC) documented in this encounter Additional Health Concerns Infection Onset Date Last Indicated Resolved Time Protective Environment 06/03/2022 06/03/2022 documented as of this encounter Care Teams Hazard Waste Handler Relationship Specialty Start Date End Date Elsewhere, Pcp PCP - General Internal Medicine 04/01/22 documented as of this encounter
--- OUTSIDE RECORDS SUMMARY | 2023-03-21 10:38 | XMS_ITS | Encounter Summary ---
Author Name Unknown Organization [facility] Address [address] [place] [address] Care Team Providers Care Distribution Center Assistant Name Role Phone Elsewhere, Pcp Primary [...] 17 total visits Mari Noguera M.D. [address] [place] [phone] [facility] Region Referral ID Status Reason Start Date Expiration Date V isits Requested Visits Authorized [id number] Authorized 05/28/2021 02/27/2024 31 31 Encounter Details Date Type Department Care Team (Late st Contact Info) Description 08/26/2022 4:30 PM CDT Infusion Department of Infusion Therapy in [address] [phone] Mari Noguera M.D. [address] [place] [phone] Multiple Myeloma Not Having Achieved Remission [...] PHQ-2 Score 4 11/18/2021 [facility] [place] [facility] - Occupational Stress Questionnaire Answer Date Recorded [...] st Contact Info) Description 03/22/2023 7:30 AM BOILER ERECTOR Appointment Department of Laboratory Medicine and Pathology, [facility] in [place], [place] [address] [place] [address] Mari Noguera M.D. [address] [place] [phone] 03/22/2023 8:45 AM BOILER ERECTOR Hospital Encounter Outpatient Procedure Center in [place], [place] [address] [place] [address] Mari Noguera M.D. [address] [place] [address] 03/31/2023 10:10 AM BOILER ERECTOR Appointment Department of Laboratory Medicine in [address] [address] Mari Noguera M.D. [address] [place] [phone] 04/04/2023 3:20 PM BOILER ERECTOR Office Visit Department of Oncology in [place], [place] [address] [place] [phone] Mari Noguera M.D. [address] [place] [phone] 04/04/2023 3:45 PM BOILER ERECTOR Infusion Department of Infusion Therapy in [address] [phone] Mari Noguera M.D. [address] [place] [phone] 04/13/2023 10:10 AM BOILER ERECTOR Appointment Department of Laboratory Medicine in [address] [phone] Mari Noguera M.D. [address] [place] [phone] 04/14/2023 9:00 AM BOILER ERECTOR Infusion Department of Infusion Therapy in [address] [phone] Mari Noguera M.D. [address] [place] [phone] documented as of this encounter Visit Diagnoses [...] documented as of this encounter Care Teams Distribution Center Assistant Relationship Specialty Start Date End Date Elsewhere, Pcp PCP - General Internal Medicine 04/01/22 documented as of this encounter
--- OUTSIDE RECORDS SUMMARY | 2023-03-21 10:38 | XMS_ITS | Encounter Summary ---
Author Name Unknown Organization [facility] Address [address] [place] [address] Care Team Providers Care Tool Engineer Name Role Phone Elsewhere, Pcp Primary Care Provider Unavailabl e Reason for Visit * Reason Comments Med Refill Encounter Details Date Type Department Care Team (Late st Contact Info) Description 08/23/2022 Refill Department of Oncology in [place], [place] [address] [place] [phone] Leatha Redman M.D. [address] [place] [address] Med Refill Social History Tobacco [...] you attend [facility] or episcopalian services? 1 to 4 [...] Answer Date Recorded PHQ-2 Score 4 11/18/2021 [facility] of Occupat ional Health [...] st Contact Info) Description 03/22/2023 7:30 AM BELT BUILDER Appointment Department of Laboratory Medicine and Pathology, [facility], in [place], [place] [address] [place] [address] Mari Noguera M.D. [facility] [phone] 03/22/2023 8:45 AM BELT BUILDER Hospital Encounter Outpatient Procedure Center in [place], [place] [address] [place] [address] Mari Noguera M.D. [address] [place] [phone] 03/31/2023 10:10 AM BELT BUILDER Appointment Department of Laboratory Medicine in [address] [address] Mari Noguera M.D. [address] [place] [phone] 04/04/2023 3:20 PM BELT BUILDER Office Visit Department of Oncology in [address] [phone] Mari Noguera M.D. [address] [place] [phone] 04/04/2023 3:45 PM BELT BUILDER Infusion Department of Infusion Therapy in [address] [phone] Mari Noguera M.D. [address] [place] [phone] 04/13/2023 10:10 AM BELT BUILDER Appointment Department of Laboratory Medicine in [address] [phone] Mari Noguera M.D. [facility] [place] [address] 04/14/2023 9:00 AM BELT BUILDER Infusion Department of Infusion Therapy in [address] [phone] Mari Noguera M.D. [address] [facility] [place] [phone] documented as of this encounter Visit Diagnoses Diagnosis Multiple Myeloma Not Having Achieved Remission (HCC) documented in this encounter Additional Health Concerns Infection Onset Date Last Indicated Resolved Time Protective Environment 06/03/2022 06/03/2022 documented as of this encounter Care Teams Tool Engineer Relationship Specialty Start Date End Date Elsewhere, Pcp PCP - General Internal Medicine 04/01/22 documented as of this encounter
--- OUTSIDE RECORDS SUMMARY | 2023-03-21 10:38 | XMS_ITS | Encounter Summary ---
Author Name Unknown Organization [facility] Address [address] [place] [address] Care Team Providers Care Wildlife And Game Protector Name Role Phone Elsewhere, Pcp Primary Care [...] 17 total visits Mari Noguera M.D. [address] [place] [address] [facility] Region Referral ID Status Reason Start Date Expiration Date V isits Requested Visits Authorized [id number] Authorized 05/28/2021 02/27/2024 31 31 Encounter Details Date Type Department Care Team (Late st Contact Info) Description 09/09/2022 3:45 PM CDT Infusion Department of Infusion Therapy in [place], [place] [address] [place] [phone] Mari Noguera M.D. [address] [place] [phone] Multiple Myeloma Not Having Achieved Remission [...] How often do you attend [facility]ur or latter day services? 1 to 4 times per year 06/11/2021 Do you belong to any clubs o r organizations such as faith groups, unions, fraternal or athletic groups, or [...] 11/18/2021 [facility] of Occupat ional [facility] - Occupational Stress Questionnaire Answer [...] st Contact Info) Description 03/22/2023 7:30 AM BOOKING POLICE OFFICER Appointment Department of Laboratory Medicine and Pathology, [facility] in [place], [place] [address] [place] [address] Mari Noguera M.D. [address] [place] [phone] 03/22/2023 8:45 AM BOOKING POLICE OFFICER Hospital Encounter Outpatient Procedure Center in [place], [place] [address] [place] [address] Mari Noguera M.D. [address] [place] [phone] 03/31/2023 10:10 AM BOOKING POLICE OFFICER Appointment Department of Laboratory Medicine in [address] [phone] Mari Noguera M.D. [address] [place] [phone] 04/04/2023 3:20 PM BOOKING POLICE OFFICER Office Visit Department of Oncology in [address] [phone] Mari Noguera M.D. [address] [place] [phone] 04/04/2023 3:45 PM BOOKING POLICE OFFICER Infusion Department of Infusion Therapy in [address] [phone] Mari Noguera M.D. [address] [place] [phone] 04/13/2023 10:10 AM BOOKING POLICE OFFICER Appointment Department of Laboratory Medicine in [address] [phone] Mari Noguera M.D. [address] [place] [phone] 04/14/2023 9:00 AM BOOKING POLICE OFFICER Infusion Department of Infusion Therapy in [address] [phone] Mari Noguera M.D. [address] [place] [phone] documented as of this encounter Visit Diagnoses [...] documented as of this encounter Care Teams Wildlife And Game Protector Relationship Specialty Start Date End Date Elsewhere, Pcp PCP - General Internal Medicine 04/01/22 documented as of this encounter
--- OUTSIDE RECORDS SUMMARY | 2023-03-21 10:38 | XMS_ITS | Encounter Summary ---
Author Name Unknown Organization [facility] Address [address] [place] [address] Care Team Providers Care Hand Etcher Helper Name Role Phone Elsewhere, Pcp Primary [...] 17 total visits Mari Noguera M.D. [address] [place] [address] [facility] Region Referral ID Status Reason Start Date Expiration Date V isits Requested Visits Authorized [id number] Authorized 05/28/2021 02/27/2024 31 31 Encounter Details Date Type Department Care Team (Latest Contact Info) Description 09/09/2022 2:24 PM CDT - 09/09/2022 11:59 PM CDT Hospital Encounter Department of Laboratory Medicine in [place], [place] [address] [place] [phone] Mari Noguera M.D. [address] [place] [phone] Multiple Myeloma Not Having Achieved [...] you attend [facility] or confucianism services? 1 to 4 [...] Answer Date Recorded PHQ-2 Score 4 11/18/2021 [facility] Occup[facility] ional Health - Occupational [...] st Contact Info) Description 03/22/2023 7:30 AM SOLDER CREAM MAKER Appointment Department of Laboratory Medicine and Pathology, [facility], in [place], [place] [address] [place] [address] Mari Noguera M.D. [address] [place] [phone] 03/22/2023 8:45 AM SOLDER CREAM MAKER Hospital Encounter Outpatient Procedure Center in [place], [place] [address] [place] [address] Mari Noguera M.D. [address] [place] [phone] 03/31/2023 10:10 AM SOLDER CREAM MAKER Appointment Department of Laboratory Medicine in [place], [place] [address] [place] [address] Mari Noguera M.D. [address] [place] [phone] 04/04/2023 3:20 PM SOLDER CREAM MAKER Office Visit Department of Oncology in [address] [phone] Mari Noguera M.D. [address] [place] [phone] 04/04/2023 3:45 PM SOLDER CREAM MAKER Infusion Department of Infusion Therapy in [address] [address] Mari Noguera M.D. [address] [place] [phone] 04/13/2023 10:10 AM SOLDER CREAM MAKER Appointment Department of Laboratory Medicine in [place], [place] [address] [place] [address] Mari Noguera M.D. [address] [place] [address] [phone] 04/14/2023 9:00 AM SOLDER CREAM MAKER Infusion Department of Infusion Therapy in [address] [phone] Mari Noguera M.D. 701 [place] [address] documented as of this encounter Procedures [...] CDT Mari Noguera M.D. LAB BLOOD ADD-ON [facility] 701 [place] [address], [facility] [place] [address] [place] [address], [place] [address] * (ABNORMAL) CBC with Differential, Blood (09/09/2022 [...] CDT Mari Noguera M.D. LAB BLOOD ADD-ON [facility] [address] [place] [address], [facility] [place] [address] [place] [phone] documented in this encounter Visit Diagnoses Diagnosis Multiple Myeloma Not Having Achieved Remission (HCC) documented in this encounter Additional Health Concerns Infection Onset Date Last Indicated Resolved Time Protective Environment 06/03/2022 06/03/2022 documented as of this encounter Care Teams Hand Etcher Helper Relationship Specialty Start Date End Date Elsewhere, Pcp PCP - General Internal Medicine 04/01/22 documented as of this encounter
--- OUTSIDE RECORDS SUMMARY | 2023-03-21 10:38 | XMS_ITS | Encounter Summary ---
Author Name Unknown Organization [facility] Address [address] [place] [address] Care Team Providers Care B Operator Name Role Phone Elsewhere, Pcp Primary Care Provider Unavailabl e Reason for Referral * Outpatient (Routine) Specialty Diagnoses / Procedures Referred By Guillermina zamora Referred To Contact Hematology Oncology Mari Noguera M.D. [address] [place] [phone] [facility] Region Referral ID Status Reason Start Date Expiration Date Visits Re quested Visits Authorized Encounter Details Date Type Department Care Team (Late st Contact Info) Description 08/19/2022 Orders Only Department of Oncology in [address] [phone] Mari Noguera M.D. [address] [place] [address] Multiple Myeloma Not Having Achieved [...] How often do you attend [facility] or restoration services? 1 to 4 times per year [...] Score 4 11/18/2021 [facility] - Occupational Stress Questionnaire [...] st Contact Info) Description 03/22/2023 7:30 AM SHIFTMAN Appointment Department of Laboratory Medicine and Pathology, [facility], in [place], [place] [address] [place] [address] Mari Noguera M.D. [address] [place] [phone] 03/22/2023 8:45 AM SHIFTMAN Hospital Encounter Outpatient Procedure Center in [place], [place] [address] [place] [address] Mari Noguera M.D. [address] [place] [phone] 03/31/2023 10:10 AM SHIFTMAN Appointment Department of Laboratory Medicine in [place], [place] [address] [place] [address] Mari Noguera M.D. [address] [place] [phone] 04/04/2023 3:20 PM SHIFTMAN Office Visit Department of Oncology in [address] [phone] Mari Noguera M.D. [address] [place] [phone] 04/04/2023 3:45 PM SHIFTMAN Infusion Department of Infusion Therapy in [address] [phone] Mari Noguera M.D. [address] [place] [phone] 04/13/2023 10:10 AM SHIFTMAN Appointment Department of Laboratory Medicine in [place], [place] [address] [facility] [address] Mari Noguera M.D. [address] [place] [phone] 04/14/2023 9:00 AM SHIFTMAN Infusion Department of Infusion Therapy in [address] [address] Mari Noguera M.D. [address] [place] [phone] Scheduled Referrals Name Type Priority Associated Diagnoses Order Schedule Hematology office visit (clinic) [facility] Region; Pre-Chemo Outpatient Referral Routine Multiple Myeloma Not Having Achieved Remission (HCC) Expected: 10/07/2022, Expires: 10/08/2023 documented as of this encounter Results * (ABNORMAL) Comprehensive Metabolic Panel (10/07/2022 10:45 AM CDT) Pathologist [facility] Potassium, P 3.9 3.6 - 5.2 mmol/L [...] M.D. LAB BLOOD ADD-ON [facility] [address] [place] [address], [facility] in [place] [address] [place] [phone] * (ABNORMAL) CBC with Differential, Blood (10/07/2022 [...] [facility] [address] [place] [address], [facility] in [place] [address] [place] [address] documented in this encounter Visit Diagnoses Diagnosis Multiple Myeloma Not Having Achieved Remission (HCC)- Primary documented in this encounter Additional Health Concerns Infection Onset Date Last Indicated Resolved Time Protective Environment 06/03/2022 06/03/2022 documented as of this encounter Care Teams B Operator Relationship Specialty Start Date End Date Elsewhere, Pcp PCP - General Internal Medicine 04/01/22 documented as of this encounter
--- OUTSIDE RECORDS SUMMARY | 2023-03-21 10:38 | XMS_ITS | Encounter Summary ---
Author Name Unknown Organization [facility] Address [address] [place] [address] Care Team Providers Care Boat Painter Name Role Phone Elsewhere, Pcp Primary Care Provider Unavailabl e Reason for Visit * Reason Onset Date Comments Nurse Assessment 08/19/2022 Encounter Details Date Type Department Care Team (Latest Contact Info) Description 08/19/2022 Clinical Communication Department of Oncology in [place], [place] [address] [place] [address] Mari Noguera M.D. [address] [place] [address] Nurse Assessment Social History Tobacco [...] you attend [facility] or christianity services? 1 to 4 times [...] st Contact Info) Description 03/22/2023 7:30 AM BAKERY MACHINE MECHANIC SUPERVISOR Appointment Department of Laboratory Medicine and Pathology, [facility], in [place], [place] [address] [place] [address] Mari Noguera M.D. [facility] [phone] 03/22/2023 8:45 AM BAKERY MACHINE MECHANIC SUPERVISOR Hospital Encounter Outpatient Procedure Center in [place], [place] [address] [place] [address] Mari Noguera M.D. [address] [place] [phone] 03/31/2023 10:10 AM BAKERY MACHINE MECHANIC SUPERVISOR Appointment Department of Laboratory Medicine in [address] [address] Mari Noguera M.D. [address] [place] [phone] 04/04/2023 3:20 PM BAKERY MACHINE MECHANIC SUPERVISOR Office Visit Department of Oncology in [address] [phone] Mari Noguera M.D. [address] [place] [phone] 04/04/2023 3:45 PM BAKERY MACHINE MECHANIC SUPERVISOR Infusion Department of Infusion Therapy in [address] [phone] Mari Noguera M.D. [address] [place] [phone] 04/13/2023 10:10 AM BAKERY MACHINE MECHANIC SUPERVISOR Appointment Department of Laboratory Medicine in [address] [phone] Mari Noguera M.D. [facility] [phone] 04/14/2023 9:00 AM BAKERY MACHINE MECHANIC SUPERVISOR Infusion Department of Infusion Therapy in [address] [phone] Mari Noguera M.D. [address] [place] [phone] documented as of this encounter Visit Diagnoses Not on filedocumented in this encounter Additional Health Concerns Infection Onset Date Last Indicated Resolved Time Protective Environment 06/03/2022 06/03/2022 documented as of this encounter Care Teams Boat Painter Relationship Specialty Start Date End Date Elsewhere, Pcp PCP - General Internal Medicine 04/01/22 documented as of this encounter
--- OUTSIDE RECORDS SUMMARY | 2023-03-21 10:38 | XMS_ITS | Encounter Summary ---
Author Name Unknown Organization [facility] Address [address] [place] [address] Care Team Providers Care Fixing Carpenter Name Role Phone Elsewhere, Pcp Primary Care Provider Unavailabl e Reason for Visit * Reason Comments Follow-up Encounter Details Date Type Department Care Team (Late st Contact Info) Description 08/26/2022 2:00 PM CDT Office Visit Department of Oncology in [place], [place] [address] [place] [address] Mari Noguera M.D. [address] [place] [address] Transplant Stem Cell (HCC) (Primary [...] How often do you attend [facility] or zoroastrianism services? 1 to 4 times [...] Date Recorded PHQ-2 Score 4 11/18/2021 [facility] of Occupat ional Health - [...] chains: kappa: 8.01 mg/L; lambda: 33.64 mg/L; Arroyo:Lambda Ratio: 0.24 SPEP: M-spike: 3.26 g/dL Immunofixation: [...] st Contact Info) Description 03/22/2023 7:30 AM EVIDENCE SPECIALIST Appointment Department of Laboratory Medicine and Pathology, [facility], in [place], [place] [address] [place] [address] Mari Noguera M.D. [address] [place] [phone] 03/22/2023 8:45 AM EVIDENCE SPECIALIST Hospital Encounter Outpatient Procedure Center in [place], [place] [address] [place] [address] Mari Noguera M.D. [address] [place] [phone] 03/31/2023 10:10 AM EVIDENCE SPECIALIST Appointment Department of Laboratory Medicine in [address] [address] Mari Noguera M.D. [address] [place] [phone] 04/04/2023 3:20 PM EVIDENCE SPECIALIST Office Visit Department of Oncology in [address] [phone] Mari Noguera M.D. [address] [place] [phone] 04/04/2023 3:45 PM EVIDENCE SPECIALIST Infusion Department of Infusion Therapy in [address] [phone] Mari Noguera M.D. [address] [place] [phone] 04/13/2023 10:10 AM EVIDENCE SPECIALIST Appointment Department of Laboratory Medicine in [address] [phone] Mari Noguera M.D. [address] [place] [phone] 04/14/2023 9:00 AM EVIDENCE SPECIALIST Infusion Department of Infusion Therapy in [address] [phone] Mari Noguera M.D. [address] [place] [phone] documented as of this encounter Visit Diagnoses Diagnosis Transplant Stem Cell (HCC)- Primary Multiple Myeloma Not Having Achieved Remission (HCC) Aftercare Transplant Bone Marrow (HCC) Bronchitis documented in this encounter Additional Health Concerns Infection Onset Date Last Indicated Resolved Time Protective Environment 06/03/2022 06/03/2022 documented as of this encounter Care Teams Fixing Carpenter Relationship Specialty Start Date End Date Elsewhere, Pcp PCP - General Internal Medicine 04/01/22 documented as of this encounter
--- OUTSIDE RECORDS SUMMARY | 2023-03-21 10:38 | XMS_ITS | Encounter Summary ---
Author Name Unknown Organization [facility] Address [address] [place] [address] Care Team Providers Care Labourers Name Role Phone Elsewhere, Pcp Primary Care Provider Unavailabl e Reason for Visit * Reason Comments Immunizations * Appointment Request (Routine) - Closed Specialty Diagnoses / Procedures Referred By Contrach t Referred To Contact Infectious Diseases Diagnoses Need Vaccine Immunization Referral ID Status Reason Start Date Expiration Date Visits Re quested Visits Authorized [id number] Closed 08/09/2022 08/09/2023 1 1 Encounter Details Date Type Department Care Team (Late st Contact Info) Description 09/05/2022 11:00 AM CDT Nurse Only Section of Infectious Diseases in [place], [place] [address] [place] [address] Nicol Ibarra V., R.N. Immunizations Social History [...] Answer Date Recorded PHQ-2 Score 4 11/18/2021 [facility] of Occupat ional Health - [...] 2 years after your transplant AND your Crusher Plant Operator approves it. Do not get live vaccines unless approved by your Crusher Plant Operator Live vaccines contain a version of a [...] the concern, they may need to contact [facility]???s Immunization Clinic. See CDC.gov for more [...] repeated vaccination of the correct dose. At [facility] we do give Pentacel as it is 3 vaccines in one ([id number]). Multiple doses help your immune system boost [...] a possible sore arm. Discuss with your Crusher Plant Operator any medications you can take for possible [...] if you will not be returning to [facility] for them. It is recommended that all immunizations are received at the same facility for continuity, if possible. documented in this encounter Plan of Treatment Upcoming Encounters Date Type Department Care Team (Late st Contact Info) Description 03/22/2023 7:30 AM LSW Appointment Department of Laboratory Medicine and Pathology, [facility] in [place], [place] [address] [place] [address] Mari Noguera M.D. [address] [place] [phone] 03/22/2023 8:45 AM LSW Hospital Encounter Outpatient Procedure Center in [place], [place] [address] [place] [address] Mari Noguera M.D. [address] [place] [phone] 03/31/2023 10:10 AM LSW Appointment Department of Laboratory Medicine in [address] [address] Mari Noguera M.D. [address] [place] [phone] 04/04/2023 3:20 PM LSW Office Visit Department of Oncology in [address] [phone] Mari Noguera M.D. [address] [place] [phone] 04/04/2023 3:45 PM LSW Infusion Department of Infusion Therapy in [address] [phone] Mari Noguera M.D. [address] [place] [phone] 04/13/2023 10:10 AM LSW Appointment Department of Laboratory Medicine in [address] [facility] [place] [phone] Mari Noguera M.D. [address] [place] [phone] 04/14/2023 9:00 AM LSW Infusion Department of Infusion Therapy in [address] [phone] Mari Noguera M.D. [address] [place] [phone] documented as of this encounter Visit Diagnoses Diagnosis Donor Stem Cell- Primary Transplant Stem Cell (HCC) documented in this encounter Additional Health Concerns Infection Onset Date Last Indicated Resolved Time Protective Environment 06/03/2022 06/03/2022 documented as of this encounter Care Teams Labourers Relationship Specialty Start Date End Date Elsewhere, Pcp PCP - General Internal Medicine 04/01/22 documented as of this encounter
--- OUTSIDE RECORDS SUMMARY | 2023-03-21 10:39 | XMS_ITS | Encounter Summary ---
Author Name Unknown Organization [facility] Address [address] [place] [address] Care Team Providers Care Board Finisher Name Role Phone Elsewhere, Pcp Primary [...] 17 total visits Mari Noguera M.D. [address] [place] [address] [facility] Region Referral ID Status Reason Start Date Expiration Date V isits Requested Visits Authorized [id number] Authorized 05/28/2021 02/27/2024 31 31 Encounter Details Date Type Department Care Team (Latest Contact Info) Description 08/03/2022 9:57 AM CDT - 08/03/2022 11:59 PM CDT Hospital Encounter Department of Laboratory Medicine in [place], [place] [address] [place] [phone] Mari Noguera M.D. [address] [place] [address] Multiple Myeloma Not Having Achieved [...] week 06/11/2021 How often do you attend [facility] or jehovah's witness services? 1 to 4 times per year 06/11/2021 Do you belong to any clubs o r organizations such as taoist groups, unions, fraternal or athletic groups, or [...] Answer Date Recorded PHQ-2 Score 4 11/18/2021 [facility] of Occupat ional Health [...] or open. 21 capsule 0 08/03/2022 08/23/2022 magnesium chloride (SLOW-MAG) 71.[address] tablet Take 2 tablets (143 mg total) by mouth every morning before breakfast. Do not crush or chew. 30 tablet 1 01/28/2022 03/16/2023 penicillin V potassium (VEETIDS) 500 mg tablet Take 1 tablet (500 mg total) by mouth 2 (two) times a day. 60 tablet 11 12/01/2021 12/08/2022 RX WELCOME [id number]-TC ONLY Welcome packet 1 each 0 04/26/2022 08/31/2022 documented as of this encounter Plan of Treatment Upcoming Encounters Date Type Department Care Team (Late st Contact Info) Description 03/22/2023 7:30 AM ROUND KILN DRAWER Appointment Department of Laboratory Medicine and Pathology, [facility] in [place], [place] [address] [place] [address] Mari Noguera M.D. [address] [place] [phone] 03/22/2023 8:45 AM ROUND KILN DRAWER Hospital Encounter Outpatient Procedure Center in [place], [place] [address] [place] [address] Mari Noguera M.D. [address] [place] [phone] 03/31/2023 10:10 AM ROUND KILN DRAWER Appointment Department of Laboratory Medicine in [address] [address] Mari Noguera M.D. [address] [place] [phone] 04/04/2023 3:20 PM ROUND KILN DRAWER Office Visit Department of Oncology in [address] [phone] Mari Noguera M.D. [address] [place] [phone] 04/04/2023 3:45 PM ROUND KILN DRAWER Infusion Department of Infusion Therapy in [address] [phone] Mari Noguera M.D. [address] [place] [phone] 04/13/2023 10:10 AM ROUND KILN DRAWER Appointment Department of Laboratory Medicine in [place], [place] [address] [place] [phone] Mari Noguera M.D. [address] [place] [address], [place] [phone] 04/14/2023 9:00 AM ROUND KILN DRAWER Infusion Department of Infusion Therapy in [address] [phone] Mari Noguera M.D. [address] [place] [phone] documented as of this encounter Procedures [...] CDT Mari Noguera M.D. LAB BLOOD ADD-ON [facility] [address] [place] [address], [facility] [place] [address] [place] [address] * (ABNORMAL) CBC with Differential, Blood (08/03/2022 [...] CDT Mari Noguera M.D. LAB BLOOD ADD-ON [facility] 701 [facility] [place] [address], [facility] [place] [address] [place] [address] documented in this encounter Visit Diagnoses Diagnosis Multiple Myeloma Not Having Achieved Remission (HCC) documented in this encounter Additional Health Concerns Infection Onset Date Last Indicated Resolved Time Protective Environment 06/03/2022 06/03/2022 documented as of this encounter Care Teams Board Finisher Relationship Specialty Start Date End Date Elsewhere, Pcp PCP - General Internal Medicine 04/01/22 documented as of this encounter
--- OUTSIDE RECORDS SUMMARY | 2023-03-21 10:39 | XMS_ITS | Encounter Summary ---
Author Name Unknown Organization [facility] Address [address] [place] [address] Care Team Providers Care Electric Meter Reader Name Role Phone Elsewhere, Pcp Primary Care Provider Unavailabl e Reason for Visit * Reason Comments Med Refill Encounter Details Date Type Department Care Team (Late st Contact Info) Description 07/28/2022 Refill Department of Oncology in [place], [place] [address] [place] [phone] Mari Noguera M.D. [address] [place] [address] Med Refill Social History Tobacco [...] [facility] or holiness services? 1 to 4 [...] 4 11/18/2021 [facility] of Occupat ionmt Health - Occupational Stress Questionnaire Answer Date [...] st Contact Info) Description 03/22/2023 7:30 AM POST EXCHANGE MANAGER Appointment Department of Laboratory Medicine and Pathology, [facility], in [place], [place] [address] [place] [address] Mari Noguera M.D. [address] [place] [address] 03/22/2023 8:45 AM POST EXCHANGE MANAGER Hospital Encounter Outpatient Procedure Center in [place], [place] [address] [place] [address] Mari Noguera M.D. [facility] [place] [phone] 03/31/2023 10:10 AM POST EXCHANGE MANAGER Appointment Department of Laboratory Medicine in [address] [place] [address] Mari Noguera M.D. [address] [place] [phone] 04/04/2023 3:20 PM POST EXCHANGE MANAGER Office Visit Department of Oncology in [address] [phone] Mari Noguera M.D. [address] [place] [phone] 04/04/2023 3:45 PM POST EXCHANGE MANAGER Infusion Department of Infusion Therapy in [address] [address] Mari Noguera M.D. [address] [place] [phone] 04/13/2023 10:10 AM POST EXCHANGE MANAGER Appointment Department of Laboratory Medicine in [address] [phone] Mari Noguera M.D. [facility] [place] [address] 04/14/2023 9:00 AM POST EXCHANGE MANAGER Infusion Department of Infusion Therapy in [address] [phone] Mari Noguera M.D. [address] [place] [phone] documented as of this encounter Visit Diagnoses Diagnosis Multiple Myeloma Not Having Achieved Remission (HCC) documented in this encounter Additional Health Concerns Infection Onset Date Last Indicated Resolved Time Protective Environment 06/03/2022 06/03/2022 documented as of this encounter Care Teams Electric Meter Reader Relationship Specialty Start Date End Date Elsewhere, Pcp PCP - General Internal Medicine 04/01/22 documented as of this encounter
--- OUTSIDE RECORDS SUMMARY | 2023-03-21 10:39 | XMS_ITS | Encounter Summary ---
Author Name Unknown Organization [facility] Address [address] [place] [address] Care Team Providers Care Campaign Management Senior Manager Name Role Phone Elsewhere, Pcp Primary [...] 17 total visits Mari Noguera M.D. [address] [place] [address] [facility] Region Referral ID Status Reason Start Date Expiration Date V isits Requested Visits Authorized [id number] Authorized 05/28/2021 02/27/2024 31 31 Encounter Details Date Type Department Care Team (Late st Contact Info) Description 08/03/2022 11:45 AM CDT Infusion Department of Infusion Therapy in [address] [phone] Mari Noguera M.D. [address] [place] [phone] Multiple Myeloma Not Having Achieved Remission [...] How often do you attend [facility] or hindu services? 1 to 4 [...] Answer Date Recorded PHQ-2 Score 4 11/18/2021 [facility] [place] of Occupat ional Health - Occupational Stress [...] st Contact Info) Description 03/22/2023 7:30 AM EMBEDDED SOFTWARE TEST ENGINEER Appointment Department of Laboratory Medicine and Pathology, [facility], in [place], [place] [address] [place] [address] Mari Noguera M.D. [address] [place] [phone] 03/22/2023 8:45 AM EMBEDDED SOFTWARE TEST ENGINEER Hospital Encounter Outpatient Procedure Center in [place], [place] [address] [place] [address] Noguera, Mari, M.D. [address] [place] [phone] 03/31/2023 10:10 AM EMBEDDED SOFTWARE TEST ENGINEER Appointment Department of Laboratory Medicine in [address] [phone] Mari Noguera M.D. [address] [place] [phone] 04/04/2023 3:20 PM EMBEDDED SOFTWARE TEST ENGINEER Office Visit Department of Oncology in [address] [phone] Mari Noguera M.D. [address] [place] [phone] 04/04/2023 3:45 PM EMBEDDED SOFTWARE TEST ENGINEER Infusion Department of Infusion Therapy in [address] [phone] Mari Noguera M.D. [address] [place] [phone] 04/13/2023 10:10 AM EMBEDDED SOFTWARE TEST ENGINEER Appointment Department of Laboratory Medicine in [address] [phone] Mari Noguera M.D. [address] [place] [phone] 04/14/2023 9:00 AM EMBEDDED SOFTWARE TEST ENGINEER Infusion Department of Infusion Therapy in [address] [phone] Mari Noguera M.D. [address] [place] [phone] documented as of this encounter Visit Diagnoses [...] documented as of this encounter Care Teams Campaign Management Senior Manager Relationship Specialty Start Date End Date Elsewhere, Pcp PCP - General Internal Medicine 04/01/22 documented as of this encounter
--- OUTSIDE RECORDS SUMMARY | 2023-03-21 10:39 | XMS_ITS | Encounter Summary ---
Author Name Unknown Organization [facility] Address [address] [place] [address] Care Team Providers Care Signal Processing Engineer Name Role Phone Elsewhere, Pcp Primary [...] 17 total visits Mari Noguera M.D. [address] [place] [address] [facility] Region Referral ID Status Reason Start Date Expiration Date V isits Requested Visits Authorized [id number] Authorized 05/28/2021 02/27/2024 31 31 Encounter Details Date Type Department Care Team (Late st Contact Info) Description 08/03/2022 11:20 AM CDT Telemedicine Department of Oncology in [place], [place] [address] [place] [phone] Leatha Redman M.D. [address] [place] [phone] Multiple Myeloma Not Having Achieved Remission (HCC) [...] week 06/11/2021 How often do you attend [facility] or caodaism services? 1 to 4 times [...] 11/18/2021 [facility] of Occupat ional [facility] - Occupational Stress Questionnaire Answer Date [...] stem cell transplant on 12/02/2021, with [facility] [place] HISTORY OF PRESENT ILLNESS Keysha Melendez is a 76 y.o. female who presents for evaluation of high-risk IgG lambda multiple myeloma status post autologous stem cell transplant on 12/02/2021, with [facility] [place] Oncology History Overview Note History of IgG [...] chains: kappa: 8.01 mg/L; lambda: 33.64 mg/L; [place]:Lambda Ratio: 0.24 SPEP: M-spike: 3.26 g/dL Immunofixation: [...] CATHETER PLACEMENT.; Surgeon: Aman Gonzalez M.D.; Location: [facility] OR Family History Problem Relation Age of [...] M.D. in Home to the patient in [place], [place]. Leatha Montez [facility] documented in this encounter Plan of Treatment Upcoming Encounters Date Type Department Care Team (Late st Contact Info) Description 03/22/2023 7:30 AM ETCHER ENAMELING Appointment Department of Laboratory Medicine and Pathology, [facility], in [place], [place] [address] [place] [address] Mari Noguera M.D. [address] [place] [phone] 03/22/2023 8:45 AM ETCHER ENAMELING Hospital Encounter Outpatient Procedure Center in [place], [place] [address] [place] [address] Mari Noguera M.D. [address] [place] [phone] 03/31/2023 10:10 AM ETCHER ENAMELING Appointment Department of Laboratory Medicine in [place], [place] [address] [place] [address] Mari Noguera M.D. [address] [place] [phone] 04/04/2023 3:20 PM ETCHER ENAMELING Office Visit Department of Oncology in [address] [phone] Mari Noguera M.D. [address] [place] [phone] 04/04/2023 3:45 PM ETCHER ENAMELING Infusion Department of Infusion Therapy in [address] [phone] Mari Noguera M.D. [address] [place] [phone] 04/13/2023 10:10 AM ETCHER ENAMELING Appointment Department of Laboratory Medicine in [place], [place] [address] [place] [address] Mari Noguera M.D. [address] [place] [phone] 04/14/2023 9:00 AM ETCHER ENAMELING Infusion Department of Infusion Therapy in [place], [place] [address] [place] [phone] Mari Noguera M.D. [address] [place] [phone] documented as of this encounter Visit Diagnoses Diagnosis Multiple Myeloma Not Having Achieved Remission (HCC)- Primary documented in this encounter Additional Health Concerns Infection Onset Date Last Indicated Resolved Time Protective Environment 06/03/2022 06/03/2022 documented as of this encounter Care Teams Signal Processing Engineer Relationship Specialty Start Date End Date Elsewhere, Pcp PCP - General Internal Medicine 04/01/22 documented as of this encounter
--- OUTSIDE RECORDS SUMMARY | 2023-03-21 10:39 | XMS_ITS | Encounter Summary ---
Author Name Unknown Organization [facility] Address [address] [place] [address] Care Team Providers Care Powder Coater Name Role Phone Elsewhere, Pcp Primary Care Provider Unavailabl e Encounter Details Date Type Department Care Team (Late st Contact Info) Description 07/28/2022 Specialty Pharmacy [facility] [address] [place] [address] Jonna Humphries, Pharm.D., R.Ph. [address] [place] [address] Social History Tobacco Use Types Packs/Day Years [...] often do you attend chur ch or buddhist services? 1 to 4 times [...] PHQ-2 Score 4 11/18[facility]2021 [facility] Questionnaire Answer Date Recorded [...] were asked via phone by a patient careers counsellor. (reviewed at or around patient requested refill ) HISTORY OF PRESENT ILLNESS Ms. Keysha Melendez is a 76 y.o. female, who is followed by the specialty pharmacy service for Revlimid (lenalidomide) . (Indication: hematology/oncology) Patient reported reassessment questions and responses: Informant: patient How comfortable are you understanding the medication(s) you receive from [facility]?: Very Comfortable Side Effects Requiring Attention: [...] above and reviewing refill history in the [facility] record. The patient/caregiver reports [...] Also, please refer to provider assessment/plan within [facility] on the following date 07/08/22.. 5. Pain [...] 'Treatment Goal' in 'Treatment Plan Information' of [facility]. Follow-up: every 6 month(s) Jonna Humphries, Pratibha., R.Ph. documented in this encounter Plan of Treatment Upcoming Encounters Date Type Department Care Team (Late st Contact Info) Description 03/22/2023 7:30 AM GEOTECHNICAL ENGINEERING TECHNICIAN Appointment Department of Laboratory Medicine and Pathology, [facility] in [place], [place] [address] [place] [address] Mari Noguera M.D. [address] [place] [phone] 03/22/2023 8:45 AM GEOTECHNICAL ENGINEERING TECHNICIAN Hospital Encounter Outpatient Procedure Center in [place], [place] [address] [place] [address] Mari Noguera M.D. [address] [place] [phone] 03/31/2023 10:10 AM GEOTECHNICAL ENGINEERING TECHNICIAN Appointment Department of Laboratory Medicine in [address] [address] Mari Noguera M.D. [address] [place] [phone] 04/04/2023 3:20 PM GEOTECHNICAL ENGINEERING TECHNICIAN Office Visit Department of Oncology in [address] [phone] Mari Noguera M.D. [address] [place] [phone] 04/04/2023 3:45 PM GEOTECHNICAL ENGINEERING TECHNICIAN Infusion Department of Infusion Therapy in [address] [phone] Mari Noguera M.D. [address] [place] [phone] 04/13/2023 10:10 AM GEOTECHNICAL ENGINEERING TECHNICIAN Appointment Department of Laboratory Medicine in [place], [place] [address] [place] [address] Mari Noguera M.D. [address] [place] [address] [phone] 04/14/2023 9:00 AM GEOTECHNICAL ENGINEERING TECHNICIAN Infusion Department of Infusion Therapy in [address] [phone] Mari Nougera M.D. [address] [place] [address] [phone] documented as of this encounter Visit Diagnoses Not on filedocumented in this encounter Additional Health Concerns Infection Onset Date Last Indicated Resolved Time Protective Environment 06/03/2022 06/03/2022 documented as of this encounter Care Teams Powder Coater Relationship Specialty Start Date End Date Elsewhere, Pcp PCP - General Internal Medicine 04/01/22 documented as of this encounter
--- OUTSIDE RECORDS SUMMARY | 2023-03-21 10:39 | XMS_ITS | Encounter Summary ---
Author Name Unknown Organization [facility] Address [address] [place] [address] Care Team Providers Care Real Estate Associate Attorney Name Role Phone Elsewhere, Pcp Primary Care Provider Unavailabl e Encounter Details Date Type Department Care Team (Late st Contact Info) Description 08/09/2022 Orders Only Department of Oncology in [place], [place] [address] [place] [phone] Anna Rosa RAbrahamNAbraham [address] [place] [address] Multiple Myeloma Not Having Achieved Remission (HCC) [...] Score 4 11/18/2021 [facility] Questionnaire Answer Date [...] st Contact Info) Description 03/22/2023 7:30 AM PEST CONTROL WORKER Appointment Department of Laboratory Medicine and Pathology, [facility], in [place], [place] [address] [place] [address] Mari Noguera M.D. [address] [place] [phone] 03/22/2023 8:45 AM PEST CONTROL WORKER Hospital Encounter Outpatient Procedure Center in [place], [place] [address] [place] [address] Mari Noguera M.D. [facility] [place] [phone] 03/31/2023 10:10 AM PEST CONTROL WORKER Appointment Department of Laboratory Medicine in [address] [address] Mari Noguera M.D. [address] [place] [phone] 04/04/2023 3:20 PM PEST CONTROL WORKER Office Visit Department of Oncology in [address] [phone] Mari Noguera M.D. [address] [place] [address] [phone] 04/04/2023 3:45 PM PEST CONTROL WORKER Infusion Department of Infusion Therapy in [address] [phone] Mari Noguera M.D. [address] [place] [address] [phone] 04/13/2023 10:10 AM PEST CONTROL WORKER Appointment Department of Laboratory Medicine in [address] [phone] Mari Noguera M.D. [address] [place] [address] [phone] 04/14/2023 9:00 AM PEST CONTROL WORKER Infusion Department of Infusion Therapy in [address] [phone] Mari Noguera M.D. [address] [place] [address] [place] [phone] documented as of this encounter Results * [...] Noguera M.D. LAB BLOOD ADD-ON [facility] [address] [place] [address], [facility] RDWG [facility] in [place] [address] [facility] [place] [address] * (ABNORMAL) CBC with Differential, Blood (09/09/2022 [...] Noguera M.D. LAB BLOOD ADD-ON [facility] [address] [place] [address], [facility] RDWG [facility] [place] [address] [place] [phone] * (ABNORMAL) CBC with Differential, Blood (08/19/2022 [...] Noguera M.D. LAB BLOOD ADD-ON [facility] [address] [place] [address], [facility] RDWG [facility] [place] [address] [facility] [place] [address] * (ABNORMAL) Monoclonal Protein Study, Expanded Panel (08/19/2022 2:31 PM CDT) Total Protein, S 5.8(L) 6.3 - 7.9 g/dL 08/19/2022 9:08 PM CDT ECLR [place] Free Light Chain, S 1.21 0.3300 - 1.94 mg/dL 08/22/2022 9:08 AM CDT ECLR Lambda Free Light Chain, S 1.49 0.5700 - 2.63 mg/dL 08/22/2022 9:08 AM CDT ECLR [place]/Lambda FLC Ratio 0.8121 0.2600 - 1.65 08/22/2022 [...] 2:31 PM CDT 08/19/2022 8:37 PM CDT Narrative [facility] - 08/23/2022 12:19 PM CDT Specimen Information: Specimen ID: [id number] Specimen Type: Blood Specimen Collection Start Date: 08/19/2022 ??2:31 PM Specimen Received Date: 08/19/2022 ??8:37 PM Specimen ID: [id number] Specimen Type: Blood Specimen Collection Start Date: 08/19/2022 ??2:31 PM Specimen Received Date: 08/19/2022 ??8:37 PM Specimen ID: [id number] Specimen Type: Blood Specimen Collection Start Date: 08/19/2022 ??2:31 PM Specimen Received Date: 08/19/2022 ??8:38 PM Mari Noguera M.D. LAB BLOOD ADD-ON [facility] [address] [place] [address], [facility] ECLR [facility] in [place] [address] [facility] [place] [address] ECLR [address] [facility] [address] [facility] [place] [address] documented in this encounter Visit Diagnoses Diagnosis Multiple Myeloma Not Having Achieved Remission (HCC)- Primary Multiple Myeloma Not Having Achieved Remission (HCC) documented in this encounter Additional Health Concerns Infection Onset Date Last Indicated Resolved Time Protective Environment 06/03/2022 06/03/2022 documented as of this encounter Care Teams Real Estate Associate Attorney Relationship Specialty Start Date End Date Elsewhere, Pcp PCP - General Internal Medicine 04/01/22 documented as of this encounter
--- OUTSIDE RECORDS SUMMARY | 2023-03-21 10:39 | XMS_ITS | Encounter Summary ---
Author Name Unknown Organization [facility] Address [address] [place] [address] Care Team Providers Care Hair Specialist Name Role Phone Elsewhere, Pcp Primary Care Provider Unavailabl e Reason for Visit * Episode Based Medications (Routine) - Authorized Specialty Diagnoses / Procedures Referred By Guillermina zamora Referred To Contact Diagnoses Multiple Myeloma Not Having Achieved Remission (HCC) Procedures IA ONDANSETRON HCL INJECTION IA DARATUMUMAB, HYALURONIDASE IA BORTEZOMIB INJECTION 1,800 mg on Day 1, 8, 15, 22 for cycles 1 & 2, Day 1, 15 3-6, Day 1 for cycle 7 / 28 day cycles / 17 total visits Mari Noguera M.D. [address] [place] [address] [facility] Region Referral ID Status Reason Start Date Expiration Date V isits Requested Visits Authorized [id number] Authorized 05/28/2021 02/27/2024 31 31 Encounter Details Date Type Department Care Team (Latest Contact Info) Description 08/19/2022 2:14 PM CDT - 08/19/2022 11:59 PM CDT Hospital Encounter Department of Laboratory Medicine in [place], [place] [address] [place] [phone] Mari Noguera M.D. [address] [place] [phone] Multiple Myeloma Not Having Achieved [...] How often do you attend [facility] or anabaptism services? 1 to 4 times [...] 60 tablet 11 12/01/2021 12/08/2022 RX WELCOME NNVBHO-XZFRTREDM-MB ONLY Welcome packet 1 each 0 04/26/2022 08/31/2022 documented as of this encounter Plan of Treatment Upcoming Encounters Date Type Department Care Team (Late st Contact Info) Description 03/22/2023 7:30 AM SNUFF PACKING MACHINE OPERATOR Appointment Department of Laboratory Medicine and Pathology, [facility] in [place], [place] [address] [place] [address] Mari Noguera M.D. [address] [place] [phone] 03/22/2023 8:45 AM SNUFF PACKING MACHINE OPERATOR Hospital Encounter Outpatient Procedure Center in [place], [place] [address] [place] [address] Mari Noguera M.D. [address] [place] [phone] 03/31/2023 10:10 AM SNUFF PACKING MACHINE OPERATOR Appointment Department of Laboratory Medicine in [address] [address] Mari Noguera M.D. [address] [place] [phone] 04/04/2023 3:20 PM SNUFF PACKING MACHINE OPERATOR Office Visit Department of Oncology in [address] [phone] Mari Noguera M.D. [address] [place] [phone] 04/04/2023 3:45 PM SNUFF PACKING MACHINE OPERATOR Infusion Department of Infusion Therapy in [address] [phone] Mari Noguera M.D. [address] [place] [phone] 04/13/2023 10:10 AM SNUFF PACKING MACHINE OPERATOR Appointment Department of Laboratory Medicine in [place] [address] [facility] [place] [address] Mari Noguera M.D. [address] [place] [phone] 04/14/2023 9:00 AM SNUFF PACKING MACHINE OPERATOR Infusion Department of Infusion Therapy in [address] [phone] Mari Noguera M.D. [address] [place] [phone] documented as of this encounter Procedures [...] BLOOD ADD-ON [facility] [address] [place] [address], [facility] RDWG [facility] in [place] [address] [place] [phone] * (ABNORMAL) Monoclonal Protein Study, Expanded Panel (08/19/2022 2:31 PM CDT) Total Protein, S 5.8(L) 6.3 - 7.9 g/dL 08/19/2022 9:08 PM CDT ECLR [place] Free Light Chain, S 1.21 0.3300 - 1.94 mg/dL 08/22/2022 9:08 AM CDT ECLR Lambda Free Light Chain, S 1.49 0.5700 - 2.63 mg/dL 08/22/2022 9:08 AM CDT ECLR [place]/Lambda FLC Ratio 0.8121 0.2600 - 1.65 08/22/2022 [...] 2:31 PM CDT 08/19/2022 8:37 PM CDT [facility] - 08/23/2022 12:19 PM CDT Specimen Information: Specimen ID: [id number] Specimen Type: Blood Specimen Collection Start Date: 08/19/2022 ??2:31 PM Specimen Received Date: 08/19/2022 ??8:37 PM Specimen ID: [id number] Specimen Type: Blood Specimen Collection Start Date: 08/19/2022 ??2:31 PM Specimen Received Date: 08/19/2022 ??8:37 PM Specimen ID: [id number] Specimen Type: Blood Specimen Collection Start Date: 08/19/2022 ??2:31 PM Specimen Received Date: 08/19/2022 ??8:38 PM Mari Noguera M.D. LAB BLOOD ADD-ON [facility] [address] [place] [address], [facility] ECLR [facility] in [place] [address] [place] [address] ECLR 12[address] [facility] [address] [place] [phone] documented in this encounter Visit Diagnoses Diagnosis Multiple Myeloma Not Having Achieved Remission (HCC) documented in this encounter Additional Health Concerns Infection Onset Date Last Indicated Resolved Time Protective Environment 06/03/2022 06/03/2022 documented as of this encounter Care Teams Hair Specialist Relationship Specialty Start Date End Date Elsewhere, Pcp PCP - General Internal Medicine 04/01/22 documented as of this encounter
--- OUTSIDE RECORDS SUMMARY | 2023-03-21 10:39 | XMS_ITS | Encounter Summary ---
Author Name Unknown Organization [facility] Address [address] [place] [address] Care Team Providers Care Assistant Store Manager Trainee Name Role Phone Elsewhere, Pcp Primary Care Provider Unavailabl e Encounter Details Date Type Department Care Team (Late st Contact Info) Description 08/11/2022 Orders Only [facility] in [place], [place] [address] [place] [address] Jeannie Headley, MARIE, C.N.P., D.N.P., M.S.N. [address] [place] [address] Social History Tobacco Use Types Packs/Day Years [...] How often do you attend chur or roman catholic services? 1 to 4 [...] st Contact Info) Description 03/22/2023 7:30 AM ADOPTION SPECIALIST Appointment Department of Laboratory Medicine and Pathology, [facility], in [place], [place] [address] [place] [address] Mari Noguera M.D. [address] [place] [phone] 03/22/2023 8:45 AM ADOPTION SPECIALIST Hospital Encounter Outpatient Procedure Center in [place], [place] [address] [place] [address] Mari Noguera M.D. [address] [place] [phone] 03/31/2023 10:10 AM ADOPTION SPECIALIST Appointment Department of Laboratory Medicine in [address] [address] Mari Noguera M.D. [address] [place] [phone] 04/04/2023 3:20 PM ADOPTION SPECIALIST Office Visit Department of Oncology in [address] [address] Mari Noguera M.D. [address] [place] [phone] 04/04/2023 3:45 PM ADOPTION SPECIALIST Infusion Department of Infusion Therapy in [address] [phone] Mari Noguera M.D. [address] [place] [phone] 04/13/2023 10:10 AM ADOPTION SPECIALIST Appointment Department of Laboratory Medicine in [place], [place] [address] [place] [address] Mari Noguera M.D. [address] [place] [phone] 04/14/2023 9:00 AM ADOPTION SPECIALIST Infusion Department of Infusion Therapy in [address] [place] [phone] Mari Noguera M.D. [address] [place] [address] documented as of this encounter Visit Diagnoses Not on filedocumented in this encounter Additional Health Concerns Infection Onset Date Last Indicated Resolved Time Protective Environment 06/03/2022 06/03/2022 documented as of this encounter Care Teams Assistant Store Manager Trainee Relationship Specialty Start Date End Date Elsewhere, Pcp PCP - General Internal Medicine 04/01/22 documented as of this encounter
--- OUTSIDE RECORDS SUMMARY | 2023-03-21 10:39 | XMS_ITS | Encounter Summary ---
Author Name Unknown Organization [facility] Address [address] [place] [address] Care Team Providers Care Tricot Knitting Machine Operator Name Role Phone Elsewhere, Pcp Primary Care Provider Unavailabl e Reason for Visit * Reason Comments Med Refill Encounter Details Date Type Department Care Team (Late st Contact Info) Description 08/05/2022 Refill Garrick gilmore [facility] in [place], [place] [address] [place] [address] Jeannie Headley APRN, C.N.P., D.N.P., M.S.N. [address] [place] [address] Med Refill Social History Tobacco Use Types [...] How often do you attend chur or confucianist services? 1 to 4 times [...] st Contact Info) Description 03/22/2023 7:30 AM FOLDING MACHINE TENDER Appointment Department of Laboratory Medicine and Pathology, [facility], in [place], [place] [address] [place] [address] Mari Noguera M.D. [address] [place] [phone] 03/22/2023 8:45 AM FOLDING MACHINE TENDER Hospital Encounter Outpatient Procedure Center in [place], [place] [address] [place] [address] Mari Noguera M.D. [address] [place] [phone] 03/31/2023 10:10 AM FOLDING MACHINE TENDER Appointment Department of Laboratory Medicine in [place], [place] [address] [place] [address] Mari Noguera M.D. [address] [place] [address] [phone] 04/04/2023 3:20 PM FOLDING MACHINE TENDER Office Visit Department of Oncology in [address] [address] Mari Noguera M.D. [address] [place] [address] [phone] 04/04/2023 3:45 PM FOLDING MACHINE TENDER Infusion Department of Infusion Therapy in [address] [address] Mari Noguera M.D. [address] [place] [address] [phone] 04/13/2023 10:10 AM FOLDING MACHINE TENDER Appointment Department of Laboratory Medicine in [place], [place] [address] [place] [address] Mari Noguera M.D. [address] [place] [address] [phone] 04/14/2023 9:00 AM FOLDING MACHINE TENDER Infusion Department of Infusion Therapy in [place], [place] [address] [place] [phone] Mari Noguera M.D. [address] [place] [phone] documented as of this encounter Visit Diagnoses Not on filedocumented in this encounter Additional Health Concerns Infection Onset Date Last Indicated Resolved Time Protective Environment 06/03/2022 06/03/2022 documented as of this encounter Care Teams Tricot Knitting Machine Operator Relationship Specialty Start Date End Date Elsewhere, Pcp PCP - General Internal Medicine 04/01/22 documented as of this encounter
--- OUTSIDE RECORDS SUMMARY | 2023-03-21 10:39 | XMS_ITS | Encounter Summary ---
Author Name Unknown Organization [facility] Address [address] [place] [address] Care Team Providers Care Long Chain Beamer Name Role Phone Elsewhere, Pcp Primary Care Provider Unavailabl e Encounter Details Date Type Department Care Team (Late st Contact Info) Description 08/03/2022 Orders Only Department of Oncology in [place], [place] [address] [place] [phone] Anna Rosa RAbrahamNAbraham [address] [place] [address] Multiple Myeloma Not Having Achieved Remission (HCC) [...] 4 11/18/2021 [facility]ational Stress Questionnaire Answer Date Recorded [...] st Contact Info) Description 03/22/2023 7:30 AM SHELL REPRINT OPERATOR Appointment Department of Laboratory Medicine and Pathology, [facility], in [place], [place] [address] [place] [address] Mari Noguera M.D. [address] [place] [phone] 03/22/2023 8:45 AM SHELL REPRINT OPERATOR Hospital Encounter Outpatient Procedure Center in [place], [place] [address] [place] [address] Mari Noguera M.D. [facility] [place] [phone] 03/31/2023 10:10 AM SHELL REPRINT OPERATOR Appointment Department of Laboratory Medicine in [address] [address] Mari Noguera M.D. [address] [place] [phone] 04/04/2023 3:20 PM SHELL REPRINT OPERATOR Office Visit Department of Oncology in [address] [phone] Mari Noguera M.D. [address] [place] [phone] 04/04/2023 3:45 PM SHELL REPRINT OPERATOR Infusion Department of Infusion Therapy in [address] [phone] Mari Noguera M.D. [address] [place] [address] [phone] 04/13/2023 10:10 AM SHELL REPRINT OPERATOR Appointment Department of Laboratory Medicine in [address] [address] Mari Noguera M.D. [address] [place] [address] [phone] 04/14/2023 9:00 AM SHELL REPRINT OPERATOR Infusion Department of Infusion Therapy in [address] [phone] Mari Noguera M.D. [address] [place] [address] [place] [phone] documented as of this encounter Visit Diagnoses Diagnosis Multiple Myeloma Not Having Achieved Remission (HCC)- Primary documented in this encounter Additional Health Concerns Infection Onset Date Last Indicated Resolved Time Protective Environment 06/03/2022 06/03/2022 documented as of this encounter Care Teams Long Chain Beamer Relationship Specialty Start Date End Date Elsewhere, Pcp PCP - General Internal Medicine 04/01/22 documented as of this encounter
--- OUTSIDE RECORDS SUMMARY | 2023-03-21 10:39 | XMS_ITS | Encounter Summary ---
Author Name Unknown Organization [facility] Address [address] [place] [address] Care Team Providers Care Special Event Assistant Name Role Phone Elsewhere, Pcp Primary Care Provider Unavailabl e Reason for Visit * Reason Onset Date Comments Pre-visit Intake 08/18/2022 Encounter Details Date Type Department Care Team (Latest Contact Info) Description 08/18/2022 Clinical Communication Section of Infectious Diseases in [place], [place] [address] [place] [address] Kaya Roger, RAbrahamNAbraham [address] [place] [address] Pre-visit Intake Social History Tobacco Use Types [...] Score 4 11/18/2021 [facility] Questionnaire Answer Date [...] st Contact Info) Description 03/22/2023 7:30 AM HOSPICE/HOME HEALTH AIDE Appointment Department of Laboratory Medicine and Pathology, [facility] in [place], [place] [address] [place] [address] Mari Noguera M.D. [address] [place] [phone] 03/22/2023 8:45 AM HOSPICE/HOME HEALTH AIDE Hospital Encounter Outpatient Procedure Center in [place], [place] [address] [place] [address] Mari Noguera M.D. [address] [place] [phone] 03/31/2023 10:10 AM HOSPICE/HOME HEALTH AIDE Appointment Department of Laboratory Medicine in [address] [address] Mari Noguera M.D. [address] [place] [phone] 04/04/2023 3:20 PM HOSPICE/HOME HEALTH AIDE Office Visit Department of Oncology in [address] [phone] Mari Noguera M.D. [address] [place] [phone] 04/04/2023 3:45 PM HOSPICE/HOME HEALTH AIDE Infusion Department of Infusion Therapy in [address] [phone] Mari Noguera M.D. [address] [place] [phone] 04/13/2023 10:10 AM HOSPICE/HOME HEALTH AIDE Appointment Department of Laboratory Medicine in [place] [address] [address] [facility] [place] [address] Mari Noguera M.D. [address] [place] [phone] 04/14/2023 9:00 AM HOSPICE/HOME HEALTH AIDE Infusion Department of Infusion Therapy in [place], [place] [address] [place] [phone] Mari Noguera M.D. [address] [place] [phone] documented as of this encounter Visit Diagnoses Not on filedocumented in this encounter Additional Health Concerns Infection Onset Date Last Indicated Resolved Time Protective Environment 06/03/2022 06/03/2022 documented as of this encounter Care Teams Special Event Assistant Relationship Specialty Start Date End Date Elsewhere, Pcp PCP - General Internal Medicine 04/01/22 documented as of this encounter
--- OUTSIDE RECORDS SUMMARY | 2023-03-21 10:39 | XMS_ITS | Encounter Summary ---
Author Name Unknown Organization [facility] Address [address] [place] [address] Care Team Providers Care Print Production Associate Name Role Phone Elsewhere, Pcp Primary [...] 17 total visits Mari Noguera M.D. [address] [place] [address] [facility] Region Referral ID Status Reason Start Date Expiration Date V isits Requested Visits Authorized [id number] Authorized 05/28/2021 02/27/2024 31 31 Encounter Details Date Type Department Care Team (Late st Contact Info) Description 08/19/2022 3:45 PM CDT Infusion Department of Infusion Therapy in [place], [place] [address] [place] [phone] Mari Noguera M.D. [address] [place] [phone] Multiple Myeloma Not Having Achieved Remission [...] 11/18/2021 [facility]at ional [facility] - Occupational Stress Questionnaire Answer [...] st Contact Info) Description 03/22/2023 7:30 AM MERCERIZING RANGE CONTROLLER Appointment Department of Laboratory Medicine and Pathology, [facility], in [place], [place] [address] [place] [address] Mari Noguera M.D. [address] [place], [place] [address] [place] [phone] 03/22/2023 8:45 AM MERCERIZING RANGE CONTROLLER Hospital Encounter Outpatient Procedure Center in [place], [place] [address] [place] [address] Mari Noguera M.D. [address] [place] [phone] 03/31/2023 10:10 AM MERCERIZING RANGE CONTROLLER Appointment Department of Laboratory Medicine in [place], [place] [address] [place] [address] Mari Noguera M.D. [address] [place] [phone] 04/04/2023 3:20 PM MERCERIZING RANGE CONTROLLER Office Visit Department of Oncology in [address] [address] Mari Noguera M.D. [address] [place] [phone] 04/04/2023 3:45 PM MERCERIZING RANGE CONTROLLER Infusion Department of Infusion Therapy in [address] [address] Mari Noguera M.D. [address] [place] [phone] 04/13/2023 10:10 AM MERCERIZING RANGE CONTROLLER Appointment Department of Laboratory Medicine in [place], [place] [address] [place] [address] Mari Noguera M.D. [address] [place] [phone] 04/14/2023 9:00 AM MERCERIZING RANGE CONTROLLER Infusion Department of Infusion Therapy in [address] [place] [phone] Mari Noguera M.D. [address] [place] [address], [place] [phone] documented as of this encounter Results * (ABNORMAL) CBC with Differential, Blood (08/26/2022 1:12 PM CDT) Hemoglobin 11.8 11.6 - 15.0 g/dL 08/26/2022 [...] CDT Mari Noguera M.D. LAB BLOOD ADD-ON [facility] [place] [facility] [address] [place] [address], [facility] in [place] [address] [place] [address] * (ABNORMAL) Monoclonal Protein Study, Expanded Panel (08/26/2022 1:12 PM CDT) Total Protein, S 5.7(L) 6.3 - 7.9 g/dL 08/26/2022 9:00 PM CDT ECLR [place] Free Light Chain, S 1.10 0.3300 - 1.94 mg/dL 08/29/2022 8:21 AM CDT ECLR [place]ambda Free Light Chain, S 1.23 0.5700 - 2.63 mg/dL 08/29/2022 8:21 AM CDT ECLR [place]/Lambda FLC Ratio 0.8943 0.2600 - 1.65 08/29/2022 [...] PM CDT 08/26/2022 8:35 PM CDT Narrative [facility] - 08/29/2022 3:35 PM CDT Specimen Information: Specimen ID: [id number] Specimen Type: Blood Specimen Collection Start Date: 08/26/2022 ??1:12 PM Specimen Received Date: 08/26/2022 ??8:35 PM Specimen ID: [id number] Specimen Type: Blood Specimen Collection Start Date: 08/26/2022 ??1:12 PM Specimen Received Date: 08/26/2022 ??8:35 PM Specimen ID: [id number] Specimen Type: Blood Specimen Collection Start Date: 08/26/2022 ??1:12 PM Specimen Received Date: 08/26/2022 ??8:35 PM Mari Noguera M.D. LAB BLOOD ADD-ON [facility] [address] [place] [address], [facility] in [address] [place] [phone] documented in this encounter Visit Diagnoses Diagnosis Multiple Myeloma Not Having Achieved Remission (HCC)- Primary Multiple Myeloma Not Having Achieved Remission (HCC) documented in this encounter Additional Health Concerns Infection Onset Date Last Indicated Resolved Time Protective Environment 06/03/2022 06/03/2022 documented as of this encounter Care Teams Print Production Associate Relationship Specialty Start Date End Date Elsewhere, Pcp PCP - General Internal Medicine 04/01/22 documented as of this encounter
--- OUTSIDE RECORDS SUMMARY | 2023-03-21 10:40 | XMS_ITS | Encounter Summary ---
Author Name Unknown Organization [facility] Address [address] [place] [address] Care Team Providers Care Legal Process Specialist Name Role Phone Elsewhere, Pcp Primary [...] often do you attend chur ch or advent services? 1 to 4 times [...] Answer Date Recorded PHQ-2 Score 4 11/18/2021 [facility] [place] of Occupat ional Health - Occupational Stress [...] st Contact Info) Description 03/22/2023 7:30 AM VICE PRESIDENT OF COMMUNICATIONS Appointment Department of Laboratory Medicine and Pathology, [facility], in [place], [place] [address] [place] [address] Mari Noguera M.D. [address] [place] [phone] 03/22/2023 8:45 AM VICE PRESIDENT OF COMMUNICATIONS Hospital Encounter Outpatient Procedure Center in [place], [place] [address] [place] [address] Mari Noguera M.D. [address] [place] [phone] 03/31/2023 10:10 AM VICE PRESIDENT OF COMMUNICATIONS Appointment Department of Laboratory Medicine in [address] [place] [address] Mari Noguera M.D. [address] [place] [phone] 04/04/2023 3:20 PM VICE PRESIDENT OF COMMUNICATIONS Office Visit Department of Oncology in [address] [phone] Mari Noguera M.D. [address] [place] [address] [phone] 04/04/2023 3:45 PM VICE PRESIDENT OF COMMUNICATIONS Infusion Department of Infusion Therapy in [address] [phone] Mari Noguera M.D. [address] [place] [address] [phone] 04/13/2023 10:10 AM VICE PRESIDENT OF COMMUNICATIONS Appointment Department of Laboratory Medicine in [address] [place] [address] Mari Noguera M.D. [address] [place] [address] [phone] 04/14/2023 9:00 AM VICE PRESIDENT OF COMMUNICATIONS Infusion Department of Infusion Therapy in [address] [phone] Mari Noguera M.D. [address] [place] [phone] documented as of this encounter Procedures Procedure [...] documented as of this encounter Care Teams Legal Process Specialist Relationship Specialty Start Date End Date Elsewhere, Pcp PCP - General Internal Medicine 04/01/22 documented as of this encounter
--- OUTSIDE RECORDS SUMMARY | 2023-03-21 10:40 | XMS_ITS | Encounter Summary ---
Author Name Unknown Organization [facility] Address [address] [place] [address] Care Team Providers Care Chief Operator Lock Tender Name Role Phone Elsewhere, Pcp Primary [...] 17 total visits Mari Noguera M.D. [address] [place] [address] [facility] Region Referral ID Status Reason Start Date Expiration Date V isits Requested Visits Authorized [id number] Authorized 05/28/2021 02/27/2024 31 31 Encounter Details Date Type Department Care Team (Late st Contact Info) Description 07/08/2022 9:15 AM CDT Infusion Department of Infusion Therapy in [address] [phone] Mari Noguera M.D. [address] [place] [phone] Multiple Myeloma Not Having Achieved Remission (HCC) [...] you attend [facility] or samaritan services? 1 to 4 [...] Answer Date Recorded PHQ-2 Score 4 11/18/2021 [facility] [place] of Occupat ional Health - Occupational Stress [...] st Contact Info) Description 03/22/2023 7:30 AM PROMOTION MANAGER Appointment Department of Laboratory Medicine and Pathology, [facility] in [place], [place] [address] [place] [address] Mari Noguera M.D. [address] [place] [phone] 03/22/2023 8:45 AM PROMOTION MANAGER Hospital Encounter Outpatient Procedure Center in [place], [place] [address] [place] [address] Mari Noguera M.D. [address] [place] [phone] 03/31/2023 10:10 AM PROMOTION MANAGER Appointment Department of Laboratory Medicine in [address] [phone] Mari Noguera M.D. [address] [place] [phone] 04/04/2023 3:20 PM PROMOTION MANAGER Office Visit Department of Oncology in [address] [phone] Mari Noguera M.D. [address] [place] [phone] 04/04/2023 3:45 PM PROMOTION MANAGER Infusion Department of Infusion Therapy in [address] [phone] Mari Noguera M.D. [address] [place] [phone] 04/13/2023 10:10 AM PROMOTION MANAGER Appointment Department of Laboratory Medicine in [place] [address] [place] [address] Mari Noguera M.D. [address] [place] [phone] 04/14/2023 9:00 AM PROMOTION MANAGER Infusion Department of Infusion Therapy in [address] [phone] Mari Noguera M.D. [address] [place] [phone] documented as of this encounter Visit [...] documented as of this encounter Care Teams Chief Operator Lock Tender Relationship Specialty Start Date End Date Elsewhere, Pcp PCP - General Internal Medicine 04/01/22 documented as of this encounter
--- OUTSIDE RECORDS SUMMARY | 2023-03-21 10:40 | XMS_ITS | Encounter Summary ---
Author Name Unknown Organization [facility] Address [address] [place] [address] Care Team Providers Care Layboy Operator Name Role Phone Elsewhere, Pcp Primary Care Provider Unavailabl e Reason for Referral * Outpatient (Routine) Specialty Diagnoses / Procedures Referred By Guillermina zamora Referred To Contact Hematology Oncology Mari Noguera M.D. [address] [place] [phone] [facility] Region Referral ID [...] / 17 total visits Mari Noguera M.D. [address] [place] [phone] [facility] Region Referral ID Status Reason Start Date Expiration Date V isits Requested Visits Authorized [id number] Authorized 05/28/2021 02/27/2024 31 31 Encounter Details Date Type Department Care Team (Late st Contact Info) Description 07/08/2022 9:20 AM CDT Office Visit Department of Oncology in [place], [place] [address] [place] [address] Mari Noguera M.D. [address] [place] [phone] Multiple Myeloma Not Having Achieved Remission (HCC) [...] How often do you attend chur or orthodox services? 1 to 4 times per year 06/11/2021 Do you belong to any clubs o r organizations such as zoroastrian groups, unions, fraternal or athletic groups, or [...] chains: kappa: 8.01 mg/L; lambda: 33.64 mg/L; [place]:Lambda Ratio: 0.24 SPEP: M-spike: 3.26 g/dL Immunofixation: [...] post ASCT day 0 12/02/2021 ([facility]) Ms. Treadwell will continue maintenance [...] st Contact Info) Description 03/22/2023 7:30 AM AUDIO VISUAL SPECIALIST Appointment Department of Laboratory Medicine and Pathology, [facility] in [place], [place] [address] [place] [address] Mari Noguera M.D. [address] [place] [phone] 03/22/2023 8:45 AM AUDIO VISUAL SPECIALIST Hospital Encounter Outpatient Procedure Center in [place], [place] [address] [place] [address] Mari Noguera M.D. [address] [place] [phone] 03/31/2023 10:10 AM AUDIO VISUAL SPECIALIST Appointment Department of Laboratory Medicine in [place], [place] [address] [place] [address] Mari Noguera M.D. [address] [place] [phone] 04/04/2023 3:20 PM AUDIO VISUAL SPECIALIST Office Visit Department of Oncology in [address] [phone] Mari Noguera M.D. [address] [place] [phone] 04/04/2023 3:45 PM AUDIO VISUAL SPECIALIST Infusion Department of Infusion Therapy in [address] [address] Mari Noguera M.D. [address] [place] [phone] 04/13/2023 10:10 AM AUDIO VISUAL SPECIALIST Appointment Department of Laboratory Medicine in [address] [address] Mari Noguera M.D. [address] [place] [phone] 04/14/2023 9:00 AM AUDIO VISUAL SPECIALIST Infusion Department of Infusion Therapy in [address] [address] Mari Noguera M.D. [address] [place] [phone] Scheduled Referrals Name Type Priority Associated Diagnoses [...] CDT Mari Noguera M.D. LAB BLOOD ADD-ON [facility] [place] [facility] [address] [place] [address], [facility] in [place] [address] [place] [phone] * (ABNORMAL) CBC with Differential, Blood (08/03/2022 [...] CDT Mari Noguera M.D. LAB BLOOD ADD-ON [facility] [address] [place] [address], [facility] in [place] [address] [place] [address] documented in this encounter Visit Diagnoses Diagnosis Multiple Myeloma Not Having Achieved Remission (HCC)- Primary Dermatitis Allergic Contact documented in this encounter Additional Health Concerns Infection Onset Date Last Indicated Resolved Time Protective Environment 06/03/2022 06/03/2022 documented as of this encounter Care Teams Layboy Operator Relationship Specialty Start Date End Date Elsewhere, Pcp PCP - General Internal Medicine 04/01/22 documented as of this encounter
--- OUTSIDE RECORDS SUMMARY | 2023-03-21 10:40 | XMS_ITS | Encounter Summary ---
Author Name Unknown Organization [facility] Address [address] [place] [address] Care Team Providers Care Pilot Plant Operator Helper Name Role Phone Elsewhere, Pcp Primary Care Provider Unavailabl e Encounter Details Date Type Department Care Team (Late st Contact Info) Description 07/11/2022 1:40 PM CDT Nurse Only Section of Infectious Diseases in [place], [place] [address] [place] [address] Dorene Varela M.D. [address] [place] [address] Veronica Mensah R.N. Social History Tobacco Use [...] attend [facility] or yazidism services? 1 to 4 [...] She then went to the ED in [place] where she describes being told she couldn't [...] possible which could be achieved by presenting [facility] ED or obtaining a referral to dermatology [...] st Contact Info) Description 03/22/2023 7:30 AM SOA INTEGRATION DEVELOPER Appointment Department of Laboratory Medicine and Pathology, [facility] in [place], [place] [address] [place] [address] Mari Noguera M.D. [address] [place] [phone] 03/22/2023 8:45 AM SOA INTEGRATION DEVELOPER Hospital Encounter Outpatient Procedure Center in [place], [place] [address] [place] [phone] Mari Noguera M.D. [address] [place] [phone] 03/31/2023 10:10 AM SOA INTEGRATION DEVELOPER Appointment Department of Laboratory Medicine in [address] [phone] Mari Noguera M.D. 1 [place] [phone] 04/04/2023 3:20 PM SOA INTEGRATION DEVELOPER Office Visit Department of Oncology in [address] [phone] Mari Noguera M.D. [address] [place] [address] [place] [phone] 04/04/2023 3:45 PM SOA INTEGRATION DEVELOPER Infusion Department of Infusion Therapy in [place] [address] [place] [phone] Mari Noguera M.D. [address] [place] [phone] 04/13/2023 10:10 AM SOA INTEGRATION DEVELOPER Appointment Department of Laboratory Medicine in [address] [place] [phone] Mari Noguera M.D. [address] [place] [phone] 04/14/2023 9:00 AM SOA INTEGRATION DEVELOPER Infusion Department of Infusion Therapy in [address] [place] [phone] Mari Noguera M.D. [address] [place] [phone] documented as of this encounter Visit Diagnoses Not on filedocumented in this encounter Additional Health Concerns Infection Onset Date Last Indicated Resolved Time Protective Environment 06/03/2022 06/03/2022 documented as of this encounter Care Teams Pilot Plant Operator Helper Relationship Specialty Start Date End Date Elsewhere, Pcp PCP - General Internal Medicine 04/01/22 documented as of this encounter
--- OUTSIDE RECORDS SUMMARY | 2023-03-21 10:40 | XMS_ITS | Encounter Summary ---
Author Name Unknown Organization [facility] Address [address] [place] [address] Care Team Providers Care Technical Research Scientist Name Role Phone Elsewhere, Pcp Primary Care [...] 17 total visits Mari Noguera M.D. [address] [place] [address] [facility] Region Referral ID Status Reason Start Date Expiration Date V isits Requested Visits Authorized [id number] Authorized 05/28/2021 02/27/2024 31 31 Encounter Details Date Type Department Care Team (Latest Contact Info) Description 07/08/2022 8:18 AM CDT - 07/08/2022 11:59 PM CDT Hospital Encounter Department of Laboratory Medicine in [place], [place] [address] [place] [phone] Mari Noguera M.D. [address] [place] [phone] Multiple Myeloma Not Having Achieved [...] do you attend [facility] or jewish services? 1 to 4 times [...] of cycle. 21 capsule 0 07/03/2022 08/31/2022 magnesium chloride (SLOW-MAG) 71.[address] tablet Take 2 tablets (143 mg total) by mouth every morning before breakfast. Do not crush or chew. 30 tablet 1 01/28/2022 03/16/2023 penicillin V potassium (VEETIDS) 500 mg tablet Take 1 tablet (500 mg total) by mouth 2 (two) times a day. 60 tablet 11 12/01/2021 12/08/2022 RX WELCOME [id number] ONLY Welcome packet 1 each 0 04/26/2022 08/31/2022 documented as of this encounter Plan of Treatment Upcoming Encounters Date Type Department Care Team (Late st Contact Info) Description 03/22/2023 7:30 AM COMPLEX CARE NURSE Appointment Department of Laboratory Medicine and Pathology, [facility], in [place], [place] [address] [place] [address] Mari Noguera M.D. [address] [place] [phone] 03/22/2023 8:45 AM COMPLEX CARE NURSE Hospital Encounter Outpatient Procedure Center in [place], [place] [address] [place] [address] Mari Noguera M.D. [address] [place] [phone] 03/31/2023 10:10 AM COMPLEX CARE NURSE Appointment Department of Laboratory Medicine in [address] [address] Mari Noguera M.D. [address] [place] [phone] 04/04/2023 3:20 PM COMPLEX CARE NURSE Office Visit Department of Oncology in [address] [phone] Mari Noguera M.D. [address] [place] [phone] 04/04/2023 3:45 PM COMPLEX CARE NURSE Infusion Department of Infusion Therapy in [address] [phone] Mari Noguera M.D. [address] [place] [phone] 04/13/2023 10:10 AM COMPLEX CARE NURSE Appointment Department of Laboratory Medicine in [address] [address] Mari Noguera M.D. [address] [place] [phone] 04/14/2023 9:00 AM COMPLEX CARE NURSE Infusion Department of Infusion Therapy in [address] [phone] Mari Noguera M.D. [address] [place] [address] [place] [phone] documented as of this encounter Procedures Procedure [...] M.D. LAB BLOOD ADD-ON Performing Organization Address City/State/[facility] Co de Phone Number [facility] [place] [address] [place] [address], [facility] in [place] [address] [place] [address] * (ABNORMAL) CBC with Differential, Blood (07/08/2022 [...] AM CDT 07/08/2022 8:39 AM CDT Mari oNguera M.D. LAB BLOOD ADD-ON [facility] [address] [place] [address], [facility] in [place] [address] [place] [phone] documented in this encounter Visit Diagnoses Diagnosis Multiple Myeloma Not Having Achieved Remission (HCC) documented in this encounter Additional Health Concerns Infection Onset Date Last Indicated Resolved Time Protective Environment 06/03/2022 06/03/2022 documented as of this encounter Care Teams Technical Research Scientist Relationship Specialty Start Date End Date Elsewhere, Pcp PCP - General Internal Medicine 04/01/22 documented as of this encounter
--- OUTSIDE RECORDS SUMMARY | 2023-03-21 10:40 | XMS_ITS | Encounter Summary ---
Demographics Address [address] [facility] [address] [place] [address] Mobile Phone Home Phone Email Address Preferred Language ENG Marital Status Hoahaoism Affiliation Unknown Race White Ethnic Group Not or Lati no Author Name Unknown Organization [facility] Address [address] [place] [address] Care Team Providers Care Fluid Jet Cutter Operator Name Role Phone Elsewhere, Pcp Primary Care Provider Unavailabl e Reason for Visit * Reason Onset Date Comments Med Question 07/19/2022 Encounter Details Date Type Department Care Team (Late st Contact Info) Description 07/19/2022 Clinical Communication Department of Oncology in [place], [place] [address] [place] [address] Mari Noguera M.D. [address] [place] [address] Med Question Social History Tobacco [...] you attend [facility] or adventist services? 1 to 4 [...] st Contact Info) Description 03/22/2023 7:30 AM ADVANCED MANAGER Appointment Department of Laboratory Medicine and Pathology, [facility], in [place], [place] [address] [place] [address] Mari Noguera M.D. [facility] [place] [phone] 03/22/2023 8:45 AM ADVANCED MANAGER Hospital Encounter Outpatient Procedure Center in [place], [place] [address] [place] [address] Mari Noguera M.D. [address] [place] [phone] 03/31/2023 10:10 AM ADVANCED MANAGER Appointment Department of Laboratory Medicine in [address] [phone] Mari Noguera M.D. [address] [place] [phone] 04/04/2023 3:20 PM ADVANCED MANAGER Office Visit Department of Oncology in [address] [phone] Mari Noguera M.D. [address] [place] [phone] 04/04/2023 3:45 PM ADVANCED MANAGER Infusion Department of Infusion Therapy in [address] [phone] Mari Noguera M.D. [address] [place] [phone] 04/13/2023 10:10 AM ADVANCED MANAGER Appointment Department of Laboratory Medicine in [address] [address] Mari Noguera M.D. [place] [phone] 04/14/2023 9:00 AM ADVANCED MANAGER Infusion Department of Infusion Therapy in [address] [phone] Mari Noguera M.D. [address] [place] [phone] documented as of this encounter Visit Diagnoses Not on filedocumented in this encounter Additional Health Concerns Infection Onset Date Last Indicated Resolved Time Protective Environment 06/03/2022 06/03/2022 documented as of this encounter Care Teams Fluid Jet Cutter Operator Relationship Specialty Start Date End Date Elsewhere, Pcp PCP - General Internal Medicine 04/01/22 documented as of this encounter
--- OUTSIDE RECORDS SUMMARY | 2023-03-21 10:40 | XMS_ITS | Encounter Summary ---
Author Name Unknown Organization [facility] Address [address] [place] [address] Care Team Providers Care Temporary Receptionist Name Role Phone Elsewhere, Pcp Primary [...] Answer Date Recorded PHQ-2 Score 4 11/18/2021 [facility] [place] of Occupat ional Health - Occupational Stress [...] st Contact Info) Description 03/22/2023 7:30 AM BLUE LINE OPERATOR Appointment Department of Laboratory Medicine and Pathology, [facility], in [place], [place] [address] [place] [address] Mari Noguera M.D. [address] [place] [phone] 03/22/2023 8:45 AM BLUE LINE OPERATOR Hospital Encounter Outpatient Procedure Center in [place], [place] [address] [place] [address] Mari Noguera M.D. [address] [place] [phone] 03/31/2023 10:10 AM BLUE LINE OPERATOR Appointment Department of Laboratory Medicine in [address] [place] [address] Mari Noguera M.D. [address] [place] [phone] 04/04/2023 3:20 PM BLUE LINE OPERATOR Office Visit Department of Oncology in [address] [phone] Mari Noguera M.D. [address] [place] [phone] 04/04/2023 3:45 PM BLUE LINE OPERATOR Infusion Department of Infusion Therapy in [address] [phone] Mari Noguera M.D. [address] [place] [phone] 04/13/2023 10:10 AM BLUE LINE OPERATOR Appointment Department of Laboratory Medicine in [address] [place] [address] Mari Noguera M.D. [address] [place] [phone] 04/14/2023 9:00 AM BLUE LINE OPERATOR Infusion Department of Infusion Therapy in [address] [phone] Mari Noguera M.D. [address] [place] [phone] documented as of this encounter Procedures Procedure [...] documented as of this encounter Care Teams Temporary Receptionist Relationship Specialty Start Date End Date Elsewhere, Pcp PCP - General Internal Medicine 04/01/22 documented as of this encounter
--- OUTSIDE RECORDS SUMMARY | 2023-03-21 10:40 | XMS_ITS | Encounter Summary ---
Author Name Unknown Organization [facility] Address [address] [place] [address] Care Team Providers Care Corporate Bond Trader Name Role Phone Elsewhere, Pcp Primary Care [...] 17 total visits Mari Noguera M.D. [address] [place] [address] [facility] Region Referral ID Status Reason Start Date Expiration Date V isits Requested Visits Authorized [id number] Authorized 05/28/2021 02/27/2024 31 31 Encounter Details Date Type Department Care Team (Latest Contact Info) Description 07/22/2022 10:30 AM CDT - 07/22/2022 11:59 PM CDT Hospital Encounter Department of Laboratory Medicine in [place], [place] [address] [place] [phone] Mari Noguera M.D. [address] [place] [phone] Multiple Myeloma Not Having Achieved [...] week 06/11/2021 How often do you attend [facility] or sabianist services? 1 to 4 times per year [...] 60 tablet 11 12/01/2021 12/08/2022 RX WELCOME [id number] ONLY Welcome packet 1 each 0 04/26/2022 08/31/2022 documented as of this encounter Plan of Treatment Upcoming Encounters Date Type Department Care Team (Late st Contact Info) Description 03/22/2023 7:30 AM GRADUATE ENGINEER Appointment Department of Laboratory Medicine and Pathology, [facility] in [place], [place] [address] [place] [address] Mari Noguera M.D. [address] [place] [phone] 03/22/2023 8:45 AM GRADUATE ENGINEER Hospital Encounter Outpatient Procedure Center in [place], [place] [address] [place] [address] Mari Noguera M.D. [address] [place] [phone] 03/31/2023 10:10 AM GRADUATE ENGINEER Appointment Department of Laboratory Medicine in [address] [address] Mari Noguera M.D. [address] [place] [phone] 04/04/2023 3:20 PM GRADUATE ENGINEER Office Visit Department of Oncology in [address] [phone] Mari Noguera M.D. [address] [place] [phone] 04/04/2023 3:45 PM GRADUATE ENGINEER Infusion Department of Infusion Therapy in [address] [phone] Mari Noguera M.D. [address] [place] [phone] 04/13/2023 10:10 AM GRADUATE ENGINEER Appointment Department of Laboratory Medicine in [place], [place] [address] [place] [phone] Mari Noguera M.D. [address] [place] [phone] 04/14/2023 9:00 AM GRADUATE ENGINEER Infusion Department of Infusion Therapy in [address] [phone] Mari Noguera M.D. [address] [place] [phone] documented as of this encounter Procedures [...] CDT Mari Noguera M.D. LAB BLOOD ADD-ON [facility] [address] [place] [address], [facility] in [place] [address] [place] [phone] * (ABNORMAL) Monoclonal Protein Study, Expanded Panel (07/22/2022 10:41 AM CDT) Total Protein, S 6.0(L) 6.3 - 7.9 g/dL 07/22/2022 3:04 PM CDT ECLR [place] Free Light Chain, S 2.10(H) 0.3300 - 1.94 mg/dL 07/26/2022 8:47 AM CDT ECLR Lambda Free Light Chain, S 1.75 0.5700 - 2.63 mg/dL 07/26/2022 8:47 AM CDT ECLR [place]/Lambda FLC Ratio 1.20 0.2600 - 1.65 07/26/2022 [...] 10:41 AM CDT 07/22/2022 2:45 PM CDT [facility] - 07/27/2022 4:01 PM CDT Specimen Information: Specimen ID: [id number] Specimen Type: Blood Specimen Collection Start Date: 07/22/2022 10:41 AM Specimen Received Date: 07/22/2022 ??2:45 PM Specimen ID: [id number] Specimen Type: Blood Specimen Collection Start Date: 07/22/2022 10:41 AM Specimen Received Date: 07/22/2022 ??2:45 PM Specimen ID: [id number] Specimen Type: Blood Specimen Collection Start Date: 07/22/2022 10:41 AM Specimen Received Date: 07/22/2022 ??2:45 PM Mari Noguera M.D. LAB BLOOD ADD-ON [facility] [address] [place] [address], [facility] ECLR [facility] [place] [address] [place] [address] [address] [place] [phone] documented in this encounter Visit Diagnoses Diagnosis Multiple Myeloma Not Having Achieved Remission (HCC) documented in this encounter Additional Health Concerns Infection Onset Date Last Indicated Resolved Time Protective Environment 06/03/2022 06/03/2022 documented as of this encounter Care Teams Corporate Bond Trader Relationship Specialty Start Date End Date Elsewhere, Pcp PCP - General Internal Medicine 04/01/22 documented as of this encounter
--- OUTSIDE RECORDS SUMMARY | 2023-03-21 10:40 | XMS_ITS | Encounter Summary ---
Author Name Unknown Organization [facility] Address [address] [place] [address] Care Team Providers Care Anchor Tacker Name Role Phone Elsewhere, Pcp Primary Care Provider Unavailabl e Reason for Referral * Medication Prior Authorization - Closed Specialty Diagnoses / Procedures Referred By Guillermina t Referred To Contact Francia Nguyen APRN, C.N.P., D.N.P. [address] [place] [phone] Referral ID Status Reason Start Date Expiration Date Visits Re quested Visits Authorized [id number] Closed 1 1 Reason for Visit * Reason Comments Rash Encounter Details Date Type Department Care Team (Late st Contact Info) Description 07/11/2022 3:03 PM CDT - 07/11/2022 8:46 PM CDT Emergency [facility] Emergency Department [address] [place] [phone] Francia Nguyen APRN, C.N.P., D.N.P. 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 1 to 4 [...] Answer Date Recorded PHQ-2 Score 4 11/18/2021 [facility] [place] of Occupat ional Health - Occupational Stress [...] sent through Care Everywhere. * Contact Dermatitis (Sami) documented in this encounter Medications at Time [...] 60 tablet 11 12/01/2021 12/08/2022 RX WELCOME [id number]-[id number] ONLY Welcome packet 1 each 0 04/26/2022 08/31/2022 documented as of this encounter Progress Notes * Oswaldo Lee M.D. - 07/11/2022 8:01 PM CDT DERMATOLOGY CURBSIDE NOTE Curbside question: Rash on face, management Brief summary: Keysha Melendez is a 76 y.o. female with a history of multiple myeloma s/p stem cell transplant 11/2021 presented to [facility] ED for a facial rash. She developed [...] care. Please page the Dermatology Service at [phone] with questions. Oswaldo Lee M.D. Dermatology Resident, [...] Infection History provided by: Patient and friend director environmental needed/used: no REVIEW OF SYSTEMS Constitutional: Negative [...] ongoing since 06/29/2022 when she used a [employer] face cream. She was referred to the [...] others. ED Course as of 07/11/222105July 11, 2022 2009 Dermatology agrees that this does appear to [...] the patient with: dermatology. Francia Nguyen APRN, C.N.P., Mayo.N.P. 07/11/222105 * Александр Alvarenga R.N. - 07/11/2022 [...] immediate burning sensation. Александр Alvarenga R.N. 07/11/22 [phone] documented in this encounter Plan of Treatment Upcoming Encounters Date Type Department Care Team (Late st Contact Info) Description 03/22/2023 7:30 AM MOTOR HOME ELECTRICAL FOREMAN Appointment Department of Laboratory Medicine and Pathology, [facility] in [place], [place] [address] [place] [phone] Mari Noguera M.D. [address] [place] [phone] 03/22/2023 8:45 AM MOTOR HOME ELECTRICAL FOREMAN Hospital Encounter Outpatient Procedure Center in [place], [place] [address] [place] [address] Mari Noguera M.D. [address] [place] [phone] 03/31/2023 10:10 AM MOTOR HOME ELECTRICAL FOREMAN Appointment Department of Laboratory Medicine in [address] [phone] Mari Noguera M.D. [address] [place] [phone] 04/04/2023 3:20 PM MOTOR HOME ELECTRICAL FOREMAN Office Visit Department of Oncology in [address] [phone] Mari Noguera M.D. [address] [place] [phone] 04/04/2023 3:45 PM MOTOR HOME ELECTRICAL FOREMAN Infusion Department of Infusion Therapy in [address] [phone] Mari Noguera M.D. [address] [place] [phone] 04/13/2023 10:10 AM MOTOR HOME ELECTRICAL FOREMAN Appointment Department of Laboratory Medicine in [address] [phone] Mari Noguera M.D. [address] [place] [phone] 04/14/2023 9:00 AM MOTOR HOME ELECTRICAL FOREMAN Infusion Department of Infusion Therapy in [address] [phone] Mari Noguera M.D. 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 Scheduled Medication Order 07/09/2022 07/10/2022 07/11/2022 diphenhydrAMINE capsule 50 mg (BENADRYL) (COMPLETED) 50 mg, oral, Once, On 07/11/22 at 1952, For 1 dose 2005 (Given - Provid er: Aniya Alexandre R.N.) documented in this encounter Additional Health Concerns Infection Onset Date Last Indicated Resolved Time Protective Environment 06/03/2022 06/03/2022 documented as of this encounter Care Teams Anchor Tacker Relationship Specialty Start Date End Date Elsewhere, Pcp PCP - General Internal Medicine 04/01/22 documented as of this encounter
--- OUTSIDE RECORDS SUMMARY | 2023-03-21 10:40 | XMS_ITS | Encounter Summary ---
Author Name Unknown Organization [facility] Address [address] [place] [address] Care Team Providers Care Network Support Administrator Name Role Phone Elsewhere, Pcp Primary [...] 17 total visits Mari Noguera M.D. [address] [place] [address] [facility] Region Referral ID Status Reason Start Date Expiration Date V isits Requested Visits Authorized [id number] Authorized 05/28/2021 02/27/2024 31 31 Encounter Details Date Type Department Care Team (Late st Contact Info) Description 07/22/2022 11:45 AM CDT Infusion Department of Infusion Therapy in [address] [phone] Mari Noguera M.D. [address] [place] [phone] Multiple Myeloma Not Having Achieved Remission [...] Score 4 11/18/2021 [facility] - Occupational Stress Questionnaire Answer Date Recorded [...] st Contact Info) Description 03/22/2023 7:30 AM EXTRUDING MACHINE OPERATOR Appointment Department of Laboratory Medicine and Pathology, [facility] in [place], [place] [address] [place] [address] Mari Nougera M.D. [address] [place] [phone] 03/22/2023 8:45 AM EXTRUDING MACHINE OPERATOR Hospital Encounter Outpatient Procedure Center in [place], [place] [address] [place] [address] Mari Noguera M.D. [address] [place] [phone] 03/31/2023 10:10 AM EXTRUDING MACHINE OPERATOR Appointment Department of Laboratory Medicine in [address] [phone] Mari Noguera M.D. [address] [place] [phone] 04/04/2023 3:20 PM EXTRUDING MACHINE OPERATOR Office Visit Department of Oncology in [address] [phone] Mari Noguera M.D. [address] [place] [phone] 04/04/2023 3:45 PM EXTRUDING MACHINE OPERATOR Infusion Department of Infusion Therapy in [address] [phone] Mari Noguera M.D. [address] [place] [phone] 04/13/2023 10:10 AM EXTRUDING MACHINE OPERATOR Appointment Department of Laboratory Medicine in [address] [phone] Mari Noguera M.D. [address] [place] [phone] 04/14/2023 9:00 AM EXTRUDING MACHINE OPERATOR Infusion Department of Infusion Therapy in [address] [phone] Mari Noguera M.D. [address] [place] [phone] documented as of this encounter Visit Diagnoses [...] documented as of this encounter Care Teams Network Support Administrator Relationship Specialty Start Date End Date Elsewhere, Pcp PCP - General Internal Medicine 04/01/22 documented as of this encounter
--- OUTSIDE RECORDS SUMMARY | 2023-03-21 10:41 | XMS_ITS | Encounter Summary ---
Author Name Unknown Organization [facility] Address [address] [place] [address] Care Team Providers Care Bituminous Paving Machine Operator Name Role Phone Elsewhere, Pcp Primary Care Provider Unavailabl e Encounter Details Date Type Department Care Team (Latest Contact Info) Description 06/21/2022 3:13 PM CDT - 06/21/2022 11:59 PM CDT Hospital Encounter Department of Laboratory Medicine in [place], [place] [address] [place] [address] Mari Noguera M.D. [address] [place] [phone] Multiple Myeloma In Remission (HCC) [...] of cycle. 21 capsule 0 06/07/2022 06/28/2022 magnesium chloride (SLOW-MAG) 71.[address] tablet Take 2 tablets (143 mg total) by mouth every morning before breakfast. Do not crush or chew. 30 tablet 1 01/28/2022 03/16/2023 penicillin V potassium (VEETIDS) 500 mg tablet Take 1 tablet (500 mg total) by mouth 2 (two) times a day. 60 tablet 11 12/01/2021 12/08/2022 RX WELCOME [id number] ONLY Welcome packet 1 each 0 04/26/2022 08/31/2022 documented as of this encounter Plan of Treatment Upcoming Encounters Date Type Department Care Team (Late st Contact Info) Description 03/22/2023 7:30 AM FINDING FASTENER Appointment Department of Laboratory Medicine and Pathology, [facility] in [place], [place] [address] [place] [address] Mari Noguera M.D. [address] [place] [phone] 03/22/2023 8:45 AM FINDING FASTENER Hospital Encounter Outpatient Procedure Center in [place], [place] [address] [place] [address] Mari Noguera M.D. [address] [place] [phone] 03/31/2023 10:10 AM FINDING FASTENER Appointment Department of Laboratory Medicine in [address] [phone] Mari Noguera M.D. [address] [place] [phone] 04/04/2023 3:20 PM FINDING FASTENER Office Visit Department of Oncology in [address] [phone] Mari Noguera M.D. [address] [place] [phone] 04/04/2023 3:45 PM FINDING FASTENER Infusion Department of Infusion Therapy in [address] [phone] Mari Noguera M.D. [address] [place] [phone] 04/13/2023 10:10 AM FINDING FASTENER Appointment Department of Laboratory Medicine in [address] [phone] Mari Noguera M.D. [address] [place] [phone] 04/14/2023 9:00 AM FINDING FASTENER Infusion Department of Infusion Therapy in [address] [phone] Mari Noguera M.D. [address] [place] [phone] documented as of this encounter Procedures Procedure [...] CDT Mari Noguera M.D. LAB BLOOD ADD-ON [facility] [address] [address], [facility] in [place] [address] [phone] documented in this encounter Visit Diagnoses Diagnosis Multiple Myeloma In Remission (HCC) documented in this encounter Additional Health Concerns Infection Onset Date Last Indicated Resolved Time Protective Environment 06/03/2022 06/03/2022 documented as of this encounter Care Teams Bituminous Paving Machine Operator Relationship Specialty Start Date End Date Elsewhere, Pcp PCP - General Internal Medicine 04/01/22 documented as of this encounter
--- OUTSIDE RECORDS SUMMARY | 2023-03-21 10:41 | XMS_ITS | Encounter Summary ---
Author Name Unknown Organization [facility] Address [address] [place] [address] Care Team Providers Care Translation Director Name Role Phone Elsewhere, Pcp Primary [...] 17 total visits Mari Noguera M.D. [address] [place] [address] [facility] Region Referral ID Status Reason Start Date Expiration Date V isits Requested Visits Authorized [id number] Authorized 05/28/2021 02/27/2024 31 31 Encounter Details Date Type Department Care Team (Late st Contact Info) Description 06/07/2022 2:30 PM CDT Infusion Department of Infusion Therapy in [address] [phone] Mari Noguera M.D. [address] [place] [phone] Multiple Myeloma Not Having Achieved Remission [...] you attend [employer] [facility] or [employer] services? 1 to 4 times per year 06/11/2021 Do you belong to any clubs o r organizations such as mormonism groups, unions, fraternal or athletic groups, or [...] Answer Date Recorded PHQ-2 Score 4 11/18/2021 [facility] of Occupat ional Health - Occupational Stress [...] st Contact Info) Description 03/22/2023 7:30 AM SCREEN AND CYCLONE REPAIRER Appointment Department of Laboratory Medicine and Pathology, [facility] in [place], [place] [address] [place] [address] Mari Noguera M.D. [address] [place] [phone] 03/22/2023 8:45 AM SCREEN AND CYCLONE REPAIRER Hospital Encounter Outpatient Procedure Center in [place], [place] [address] [place] [address] Mari Noguera M.D. [address] [place] [phone] 03/31/2023 10:10 AM SCREEN AND CYCLONE REPAIRER Appointment Department of Laboratory Medicine in [address] [phone] Mari Noguera M.D. [address] [place] [phone] 04/04/2023 3:20 PM SCREEN AND CYCLONE REPAIRER Office Visit Department of Oncology in [address] [phone] Mari Noguera M.D. [address] [place] [phone] 04/04/2023 3:45 PM SCREEN AND CYCLONE REPAIRER Infusion Department of Infusion Therapy in [address] [phone] Mari Noguera M.D. [address] [place] [phone] 04/13/2023 10:10 AM SCREEN AND CYCLONE REPAIRER Appointment Department of Laboratory Medicine in [place] [address] [address] [facility] [place] [address] Mari Noguera M.D. [address] [place] [phone] 04/14/2023 9:00 AM SCREEN AND CYCLONE REPAIRER Infusion Department of Infusion Therapy in [address] [place] [phone] Mari Noguera M.D. [address] [place] [phone] documented as of this encounter Visit [...] documented as of this encounter Care Teams Translation Director Relationship Specialty Start Date End Date Elsewhere, Pcp PCP - General Internal Medicine 04/01/22 documented as of this encounter
--- OUTSIDE RECORDS SUMMARY | 2023-03-21 10:41 | XMS_ITS | Encounter Summary ---
Author Name Unknown Organization [facility] Address [address] [place] [address] Care Team Providers Care Provider Contracting Consultant Name Role Phone Elsewhere, Pcp Primary Care Provider Unavailabl e Encounter Details Date Type Department Care Team (Late st Contact Info) Description 06/21/2022 Orders Only Department of Oncology in [place], [place] [address] [place] [phone] Mari Noguera M.D. [address] [place] [phone] Multiple Myeloma In Remission (HCC) [...] [facility] - Occupational Stress Questionnaire Answer [...] st Contact Info) Description 03/22/2023 7:30 AM MANAGER BUSINESS OPERATIONS Appointment Department of Laboratory Medicine and Pathology, [facility], in [place], [place] [address] [place] [address] Mari Noguera M.D. [address] [place] [phone] 03/22/2023 8:45 AM MANAGER BUSINESS OPERATIONS Hospital Encounter Outpatient Procedure Center in [place], [place] [address] [place] [address] Mari Noguera M.D. [facility] [place] [phone] 03/31/2023 10:10 AM MANAGER BUSINESS OPERATIONS Appointment Department of Laboratory Medicine in [address] [address] Mari Noguera M.D. [address] [place] [phone] 04/04/2023 3:20 PM MANAGER BUSINESS OPERATIONS Office Visit Department of Oncology in [address] [phone] Mari Noguera M.D. [address] [place] [phone] 04/04/2023 3:45 PM MANAGER BUSINESS OPERATIONS Infusion Department of Infusion Therapy in [address] [phone] Mari Noguera M.D. [address] [place] [phone] 04/13/2023 10:10 AM MANAGER BUSINESS OPERATIONS Appointment Department of Laboratory Medicine in [address] [phone] Mari Noguera M.D. [address] [place] [phone] 04/14/2023 9:00 AM MANAGER BUSINESS OPERATIONS Infusion Department of Infusion Therapy in [address] [phone] Mari Noguera M.D. [address] [place] [address] [place] [phone] documented as of this encounter Results * [...] [facility] 701 [facility] [place] [address], [facility] in [place] [address] [place] [address] documented in this encounter Visit Diagnoses Diagnosis Multiple Myeloma In Remission (HCC)- Primary documented in this encounter Additional Health Concerns Infection Onset Date Last Indicated Resolved Time Protective Environment 06/03/2022 06/03/2022 documented as of this encounter Care Teams Provider Contracting Consultant Relationship Specialty Start Date End Date Elsewhere, Pcp PCP - General Internal Medicine 04/01/22 documented as of this encounter
--- OUTSIDE RECORDS SUMMARY | 2023-03-21 10:41 | XMS_ITS | Encounter Summary ---
Author Name Unknown Organization [facility] Address [address] [place] [address] Care Team Providers Care Secondary School Teacher Librarian Name Role Phone Elsewhere, Pcp Primary Care Provider Unavailabl e Reason for Visit * Reason Comments Med Refill Encounter Details Date Type Department Care Team (Late st Contact Info) Description 06/28/2022 Refill Department of Oncology in [place], [place] [address] [place] [phone] Mari Noguera M.D. [address] [place] [phone] Med Refill Social History Tobacco [...] attend [facility] or [employer] services? 1 to 4 times [...] 4 11/18/2021 [facility] of [facility]at ionmo Health - Occupational Stress [...] st Contact Info) Description 03/22/2023 7:30 AM SATELLITE MANAGER Appointment Department of Laboratory Medicine and Pathology, [facility], in [place], [place] [address] [place] [address] Mari Noguera M.D. [address] [place] [address] 03/22/2023 8:45 AM SATELLITE MANAGER Hospital Encounter Outpatient Procedure Center in [place], [place] [address] [place] [address] Mari Noguera M.D. [facility] [place] [phone] 03/31/2023 10:10 AM SATELLITE MANAGER Appointment Department of Laboratory Medicine in [address] [place] [address] Mari Noguera M.D. [address] [place] [phone] 04/04/2023 3:20 PM SATELLITE MANAGER Office Visit Department of Oncology in [address] [phone] Mari Noguera M.D. [address] [place] [phone] 04/04/2023 3:45 PM SATELLITE MANAGER Infusion Department of Infusion Therapy in [address] [phone] Mari Noguera M.D. [address] [place] [phone] 04/13/2023 10:10 AM SATELLITE MANAGER Appointment Department of Laboratory Medicine in [address] [phone] Mari Noguera M.D. [facility] [place] [address] 04/14/2023 9:00 AM SATELLITE MANAGER Infusion Department of Infusion Therapy in [address] [phone] Mari Noguera M.D. [address] [place] [phone] documented as of this encounter Visit Diagnoses Diagnosis Multiple Myeloma Not Having Achieved Remission (HCC) documented in this encounter Additional Health Concerns Infection Onset Date Last Indicated Resolved Time Protective Environment 06/03/2022 06/03/2022 documented as of this encounter Care Teams Secondary School Teacher Librarian Relationship Specialty Start Date End Date Elsewhere, Pcp PCP - General Internal Medicine 04/01/22 documented as of this encounter
--- OUTSIDE RECORDS SUMMARY | 2023-03-21 10:41 | XMS_ITS | Encounter Summary ---
Author Name Unknown Organization [facility] Address [address] [place] [address] Care Team Providers Care Carton Filling Machine Operator Name Role Phone Elsewhere, Pcp [...] 17 total visits Mari Noguera M.D. [address] [place] [address] [facility] Region Referral ID Status Reason Start Date Expiration Date V isits Requested Visits Authorized [id number] Authorized 05/28/2021 02/27/2024 31 31 Encounter Details Date Type Department Care Team (Latest Contact Info) Description 06/21/2022 2:01 PM CDT - 06/21/2022 3:12 PM CDT Hospital Encounter Department of Laboratory Medicine in [place], [place] [address] [place] [phone] Mari Noguera M.D. [address] [place] [phone] Multiple Myeloma Not Having Achieved [...] you attend [facility] or [employer] services? 1 to 4 times [...] 11/18/2021 [facility] of Occupat ional Health - Occupational [...] 60 tablet 11 12/01/2021 12/08/2022 RX WELCOME [id number]-[id number]-IO ONLY Welcome packet 1 each 0 04/26/2022 08/31/2022 documented as of this encounter Plan of Treatment Upcoming Encounters Date Type Department Care Team (Late st Contact Info) Description 03/22/2023 7:30 AM FLAVORER Appointment Department of Laboratory Medicine and Pathology, [facility], in [place], [place] [address] [place] [address] Mari Noguera M.D. [address] [place] [phone] 03/22/2023 8:45 AM FLAVORER Hospital Encounter Outpatient Procedure Center in [place], [place] [address] [place] [address] Mari Noguera M.D. [address] [place] [phone] 03/31/2023 10:10 AM FLAVORER Appointment Department of Laboratory Medicine in [address] [address] Mari Noguera M.D. [address] [place] [phone] 04/04/2023 3:20 PM FLAVORER Office Visit Department of Oncology in [address] [phone] Mari Noguera M.D. [address] [place] [phone] 04/04/2023 3:45 PM FLAVORER Infusion Department of Infusion Therapy in [address] [phone] Mari Noguera M.D. [address] [place] [phone] 04/13/2023 10:10 AM FLAVORER Appointment Department of Laboratory Medicine in [address] [phone] Mari Noguera M.D. [address] [place] [phone] 04/14/2023 9:00 AM FLAVORER Infusion Department of Infusion Therapy in [address] [phone] Mari Noguera M.D. [address] [place] [address] [address] Perez [phone] documented as of this encounter Procedures Procedure Name Priority Date/Time Associated Diagnosis Comments MONOCLONAL PROTEIN STUDY (MPSS), EXPANDED PANEL, S Routine 06/21/2022 2:11 PM CDT Multiple Myeloma Not Having Achieved Remission (HCC) documented in this encounter Results * (ABNORMAL) Monoclonal Protein Study, Expanded Panel (06/21/2022 2:11 PM CDT) Total Protein, S 5.9(L) 6.3 - 7.9 g/dL 06/21/2022 9:46 PM CDT ECLR Mcleod Free Light Chain, S 0.8300 0.3300 - 1.94 mg/dL 06/22/2022 8:27 AM CDT ECLR Lambda Free Light Chain, S 1.22 0.5700 - 2.63 mg/dL 06/22/2022 8:27 AM CDT ECLR Mcleod/Lambda FLC Ratio 0.6803 0.2600 - 1.65 06/22/2022 [...] PM CDT 06/21/2022 9:25 PM CDT Narrative [facility] - 06/22/2022 2:20 PM CDT Specimen Information: Specimen ID: [id number] Specimen Type: Blood Specimen Collection Start Date: 06/21/2022 ??2:16 PM Specimen Received Date: 06/21/2022 ??9:25 PM Specimen ID: [id number] Specimen Type: Blood Specimen Collection Start Date: 06/21/2022 ??2:16 PM Specimen Received Date: 06/21/2022 ??9:25 PM Specimen ID: [id number] Specimen Type: Blood Specimen Collection Start Date: 06/21/2022 ??2:11 PM Specimen Received Date: 06/21/2022 ??9:25 PM Mari Noguera M.D. LAB BLOOD ADD-ON [facility] [address] [place] [address], [facility] ECLR [facility] in [address] [address] [address] [place] [phone] documented in this encounter Visit Diagnoses Diagnosis Multiple Myeloma Not Having Achieved Remission (HCC) documented in this encounter Additional Health Concerns Infection Onset Date Last Indicated Resolved Time Protective Environment 06/03/2022 06/03/2022 documented as of this encounter Care Teams Carton Filling Machine Operator Relationship Specialty Start Date End Date Elsewhere, Pcp PCP - General Internal Medicine 04/01/22 documented as of this encounter
--- OUTSIDE RECORDS SUMMARY | 2023-03-21 10:41 | XMS_ITS | Encounter Summary ---
Author Name Unknown Organization [facility] Address [address] [place] [address] Care Team Providers Care Senior Risk Manager Name Role Phone Elsewhere, Pcp Primary Care Provider Unavailabl e Encounter Details Date Type Department Care Team (Late st Contact Info) Description 06/24/2022 Specialty Pharmacy [facility] [address] [place] [phone] Janel Jensen, Pharm.D., R.Ph. [address] [place] [address] Social History Tobacco Use Types Packs/Day Years [...] often do you attend chur ch or alevism services? 1 to 4 times [...] patient portal (Epic patient chart, encounter department: [facility]) Specialty Pharmacy Medication Adherence Questionnaire 06/24/2022 10:01 AM CDT - Filed by Patient In general, would you say your quality of life is: Good How would you rate your pain on average? 0 No pain How comfortable are you understanding the medication(s) you receive from [facility]? Very comfortable Have you experienced [...] chart and reviewing refill history in the [facility] record. The patient/caregiver reports appropriate medication knowledge. The patient has missed 1 dose(s) of medication. We have sent a portal message to the patient via patient online services stressing the importance of adhering to the medication regimen and suggesting adherence tools. Contact information for the pharmacy was also included. [facility] Pharmacists are always available to discuss concerns [...] st Contact Info) Description 03/22/2023 7:30 AM WARRANTY CLERK Appointment Department of Laboratory Medicine and Pathology, [facility] in [place], [place] [address] [place] [address] Mari Noguera M.D. [address] [place] [phone] 03/22/2023 8:45 AM WARRANTY CLERK Hospital Encounter Outpatient Procedure Center in [place], [place] [address] [place] [address] Mari Noguera M.D. [address] [place] [phone] 03/31/2023 10:10 AM WARRANTY CLERK Appointment Department of Laboratory Medicine in [address] [phone] Mari Noguera M.D. [address] [place] [phone] 04/04/2023 3:20 PM WARRANTY CLERK Office Visit Department of Oncology in [address] [phone] Mari Noguera M.D. [address] [place] [phone] 04/04/2023 3:45 PM WARRANTY CLERK Infusion Department of Infusion Therapy in [address] [phone] Mari Noguera M.D. [address] [place] [phone] 04/13/2023 10:10 AM WARRANTY CLERK Appointment Department of Laboratory Medicine in [address] [phone] Mari Noguera M.D. [address] [place] [phone] 04/14/2023 9:00 AM WARRANTY CLERK Infusion Department of Infusion Therapy in [address] [phone] Mari Noguera M.D. [address] [place] [phone] documented as of this encounter Visit Diagnoses Not on filedocumented in this encounter Additional Health Concerns Infection Onset Date Last Indicated Resolved Time Protective Environment 06/03/2022 06/03/2022 documented as of this encounter Care Teams Senior Risk Manager Relationship Specialty Start Date End Date Elsewhere, Pcp PCP - General Internal Medicine 04/01/22 documented as of this encounter
--- OUTSIDE RECORDS SUMMARY | 2023-03-21 10:41 | XMS_ITS | Encounter Summary ---
Author Name Unknown Organization [facility] Address [address] [place] [address] Care Team Providers Care Vegetable Cutter Name Role Phone Elsewhere, Pcp Primary [...] 17 total visits Mari Noguera M.D. [address] [place] [address] [facility] Region Referral ID Status Reason Start Date Expiration Date V isits Requested Visits Authorized [id number] Authorized 05/28/2021 02/27/2024 31 31 Encounter Details Date Type Department Care Team (Late st Contact Info) Description 06/21/2022 3:45 PM CDT Infusion Department of Infusion Therapy in [address] [phone] Mari Noguera M.D. [address] [place] [phone] Multiple Myeloma Not Having Achieved Remission [...] you attend [facility] or zoroastrian services? 1 to 4 [...] Date Recorded PHQ-2 Score 4 11/18/2021 [facility] [place] of Occupat ional Health - Occupational Stress [...] st Contact Info) Description 03/22/2023 7:30 AM SHIP'S CARPENTER Appointment Department of Laboratory Medicine and Pathology, [facility] in [place], [place] [address] [place] [address] Mari Noguera M.D. [address] [place] [phone] 03/22/2023 8:45 AM SHIP'S CARPENTER Hospital Encounter Outpatient Procedure Center in [place], [place] [address] [place] [address] Mari Noguera M.D. [address] [place] [phone] 03/31/2023 10:10 AM SHIP'S CARPENTER Appointment Department of Laboratory Medicine in [address] [address] Mari Noguera M.D. [address] [place] [phone] 04/04/2023 3:20 PM SHIP'S CARPENTER Office Visit Department of Oncology in [address] [phone] Mari Noguera M.D. [address] [place] [phone] 04/04/2023 3:45 PM SHIP'S CARPENTER Infusion Department of Infusion Therapy in [address] [phone] Mari Noguera M.D. [address] [place] [address] [phone] 04/13/2023 10:10 AM SHIP'S CARPENTER Appointment Department of Laboratory Medicine in [place] [address] [place] [address] Mari Noguera M.D. [address] [place] [address] [phone] 04/14/2023 9:00 AM SHIP'S CARPENTER Infusion Department of Infusion Therapy in [address] [place] [phone] Mari Noguera M.D. [address] [place] [phone] documented as of this encounter Visit Diagnoses [...] as of this encounter Care Teams Vegetable Cutter Relationship Specialty Start Date End Date Elsewhere, Pcp PCP - General Internal Medicine 04/01/22 documented as of this encounter
--- OUTSIDE RECORDS SUMMARY | 2023-03-21 10:41 | XMS_ITS | Encounter Summary ---
Author Name Unknown Organization [facility] Address [address] [place] [address] Care Team Providers Care Business English Instructor Name Role Phone Elsewhere, Pcp Primary Care Provider Unavailabl e Reason for Referral * Outpatient (Routine) Specialty Diagnoses / Procedures Referred By Guillermina zamora Referred To Contact Hematology Oncology Mari Noguera M.D. [address] [place] [phone] [facility] Region Referral ID [...] / 17 total visits Mari Noguera M.D. [address] [place] [phone] [facility] Region Referral ID Status Reason Start Date Expiration Date V isits Requested Visits Authorized [id number] Authorized 05/28/2021 02/27/2024 31 31 Encounter Details Date Type Department Care Team (Late st Contact Info) Description 06/07/2022 2:40 PM CDT Office Visit Department of Oncology in [place], [place] [address] [place] [address] Mari Noguera M.D. [address] [place] [phone] Multiple Myeloma Not Having Achieved [...] any clubs o r organizations such as gnosticism groups, unions, fraternal or athletic groups, or [...] chains: kappa: 8.01 mg/L; lambda: 33.64 mg/L; [place]:Lambda Ratio: 0.24 SPEP: M-spike: 3.26 g/dL Immunofixation: [...] with VGPR post ASCT day 0 12/02/2021 ([facility]) Ms. Treadwell will continue maintenance [...] st Contact Info) Description 03/22/2023 7:30 AM AIRCRAFT ENGINE MECHANIC SUPERVISOR Appointment Department of Laboratory Medicine and Pathology, [facility], in [place], [place] [address] [place] [address] Mari Noguera M.D. [address] [place] [phone] 03/22/2023 8:45 AM AIRCRAFT ENGINE MECHANIC SUPERVISOR Hospital Encounter Outpatient Procedure Center in [place], [place] [address] [place] [address] Mari Noguera M.D. [address] [place] [phone] 03/31/2023 10:10 AM AIRCRAFT ENGINE MECHANIC SUPERVISOR Appointment Department of Laboratory Medicine in [place], [place] [address] [place] [address] Mari Noguera M.D. [address] [place] [phone] 04/04/2023 3:20 PM AIRCRAFT ENGINE MECHANIC SUPERVISOR Office Visit Department of Oncology in [address] [phone] Mari Noguera M.D. [address] [place] [phone] 04/04/2023 3:45 PM AIRCRAFT ENGINE MECHANIC SUPERVISOR Infusion Department of Infusion Therapy in [address] [address] Mari Noguera M.D. [address] [place] [address] [phone] 04/13/2023 10:10 AM AIRCRAFT ENGINE MECHANIC SUPERVISOR Appointment Department of Laboratory Medicine in [place], [place] [address] [place] [address] Mari Noguera M.D. [address] [place] [address] [phone] 04/14/2023 9:00 AM AIRCRAFT ENGINE MECHANIC SUPERVISOR Infusion Department of Infusion Therapy in [address] [phone] Mari Noguera M.D. [address] [place] [address] Scheduled Referrals Name Type Priority Associated Diagnoses Order Schedule Hematology office visit (clinic) [facility] Region; Pre-Chemo Outpatient Referral Routine Multiple Myeloma Not Having Achieved Remission (HCC) Expected: 07/08/2022, Expires: 07/09/2023 documented as of this encounter Results * (ABNORMAL) Monoclonal Protein Study, Expanded Panel (06/21/2022 2:11 PM CDT) Total Protein, S 5.9(L) 6.3 - 7.9 g/dL 06/21/2022 9:46 PM CDT ECLR [place] Free Light Chain, S 0.8300 0.3300 - 1.94 mg/dL 06/22/2022 8:27 AM CDT ECLR [place]ambda Free Light Chain, S 1.22 0.5700 - 2.63 mg/dL 06/22/2022 8:27 AM CDT ECLR [place]/Lambda FLC Ratio 0.6803 0.2600 - 1.65 06/22/2022 [...] PM CDT 06/21/2022 9:25 PM CDT Narrative [facility] - 06/22/2022 2:20 PM CDT Specimen Information: Specimen ID: [id number] Specimen Type: Blood Specimen Collection Start Date: 06/21/2022 ??2:16 PM Specimen Received Date: 06/21/2022 ??9:25 PM Specimen ID: [id number] Specimen Type: Blood Specimen Collection Start Date: 06/21/2022 ??2:16 PM Specimen Received Date: 06/21/2022 ??9:25 PM Specimen ID: [id number] Specimen Type: Blood Specimen Collection Start Date: 06/21/2022 ??2:11 PM Specimen Received Date: 06/21/2022 ??9:25 PM Mari Noguera M.D. LAB BLOOD ADD-ON [facility] [address] [place] [address], [place] ECLR [facility] in [address] [place] [phone] documented in this encounter Visit Diagnoses Diagnosis Multiple Myeloma Not Having Achieved Remission (HCC)- Primary Multiple Myeloma Not Having Achieved Remission (HCC) documented in this encounter Additional Health Concerns Infection Onset Date Last Indicated Resolved Time Protective Environment 06/03/2022 06/03/2022 documented as of this encounter Care Teams Business English Instructor Relationship Specialty Start Date End Date Elsewhere, Pcp PCP - General Internal Medicine 04/01/22 documented as of this encounter
--- OUTSIDE RECORDS SUMMARY | 2023-03-21 10:41 | XMS_ITS | Encounter Summary ---
Author Name Unknown Organization [facility] Address [address] [place] [address] Care Team Providers Care Sheet Metal Journeyman Name Role Phone Elsewhere, Pcp Primary Care Provider Unavailabl e Encounter Details Date Type Department Care Team (Late st Contact Info) Description 06/06/2022 Orders Only Department of Oncology in [place], [place] [address] [place] [phone] Anna Rosa RAbrahamNAbraham [address] [place] [address] Social History Tobacco Use Types Packs/Day Years [...] Contact Info) Description 03/22/2023 7:30 AM MANAGER REGIONAL Appointment Department of Laboratory Medicine and Pathology, [facility], in [place], [place] [address] [place] [address] Mari Noguera M.D. [address] [place] [phone] 03/22/2023 8:45 AM MANAGER REGIONAL Hospital Encounter Outpatient Procedure Center in [place], [place] [address] [place] [address] Mari Noguera M.D. [facility] [place] [phone] 03/31/2023 10:10 AM MANAGER REGIONAL Appointment Department of Laboratory Medicine in [address] [phone] Mari Noguera M.D. [address] [place] [phone] 04/04/2023 3:20 PM MANAGER REGIONAL Office Visit Department of Oncology in [address] [phone] Mari Noguera M.D. [address] [place] [address] [phone] 04/04/2023 3:45 PM MANAGER REGIONAL Infusion Department of Infusion Therapy in [address] [phone] Mari Noguera M.D. [address] [place] [address] [phone] 04/13/2023 10:10 AM MANAGER REGIONAL Appointment Department of Laboratory Medicine in [address] [phone] Mari Noguera M.D. [address] [place] [address] [phone] 04/14/2023 9:00 AM MANAGER REGIONAL Infusion Department of Infusion Therapy in [place] [address] [place] [address] Mari Noguera M.D. [address] [place] [address] [phone] documented as of this encounter Visit Diagnoses Not on filedocumented in this encounter Additional Health Concerns Infection Onset Date Last Indicated Resolved Time Protective Environment 06/03/2022 06/03/2022 documented as of this encounter Care Teams Sheet Metal Journeyman Relationship Specialty Start Date End Date Elsewhere, Pcp PCP - General Internal Medicine 04/01/22 documented as of this encounter
--- OUTSIDE RECORDS SUMMARY | 2023-03-21 10:41 | XMS_ITS | Encounter Summary ---
Author Name Unknown Organization [facility] Address [address] [place] [address] Care Team Providers Care Student Financial Services Counselor Name Role Phone Elsewhere, Pcp Primary Care [...] 17 total visits Mari Noguera M.D. [address] [place] [phone] [facility] Region Referral ID Status Reason Start Date Expiration Date V isits Requested Visits Authorized [id number] Authorized 05/28/2021 02/27/2024 31 31 Encounter Details Date Type Department Care Team (Latest Contact Info) Description 06/07/2022 1:02 PM CDT - 06/07/2022 11:59 PM CDT Hospital Encounter Department of Laboratory Medicine in [place], [place] [address] [place] [phone] Mari Noguera M.D. [address] [place] [address] Multiple Myeloma Not Having Achieved [...] do you attend [facility] or mormon services? 1 to 4 times [...] 11/18/2021 [facility] of Occupat ional Health - [...] 60 tablet 11 12/01/2021 12/08/2022 RX WELCOME ZTSAME-MJSAIUIAI-PM ONLY Welcome packet 1 each 0 04/26/2022 08/31/2022 documented as of this encounter Plan of Treatment Upcoming Encounters Date Type Department Care Team (Late st Contact Info) Description 03/22/2023 7:30 AM DOCTOR OF PHARMACY Appointment Department of Laboratory Medicine and Pathology, [facility], in [place], [place] [address] [place] [address] Mari Noguera M.D. [address] [place] [phone] 03/22/2023 8:45 AM DOCTOR OF PHARMACY Hospital Encounter Outpatient Procedure Center in [place], [place] [address] [place] [address] Mari Noguera M.D. [address] [place] [phone] 03/31/2023 10:10 AM DOCTOR OF PHARMACY Appointment Department of Laboratory Medicine in [address] [phone] Mari Noguera M.D. [address] [place] [phone] 04/04/2023 3:20 PM DOCTOR OF PHARMACY Office Visit Department of Oncology in [address] [phone] Mari Noguera M.D. [address] [place] [address] [phone] 04/04/2023 3:45 PM DOCTOR OF PHARMACY Infusion Department of Infusion Therapy in [address] [phone] Mari Noguera M.D. [address] [place] [phone] 04/13/2023 10:10 AM DOCTOR OF PHARMACY Appointment Department of Laboratory Medicine in [address] [phone] Mari Noguera M.D. [address] [place] [phone] 04/14/2023 9:00 AM DOCTOR OF PHARMACY Infusion Department of Infusion Therapy in [address] [phone] Mari Noguera M.D. [address] [place] [address] [place] [phone] documented as of this encounter Procedures Procedure [...] M.D. LAB BLOOD ADD-ON Performing Organization Address City/State/[facility] Co de Phone Number [facility] [address] [place] [address], [facility] RDWG [facility] in [place] [address] [place] [address] * (ABNORMAL) CBC with Differential, Blood (06/07/2022 [...] BLOOD ADD-ON [facility] [address] [place] [address], [facility]DWG [facility] in [place] [address] [place] [phone] documented in this encounter Visit Diagnoses Diagnosis Multiple Myeloma Not Having Achieved Remission (HCC) documented in this encounter Additional Health Concerns Infection Onset Date Last Indicated Resolved Time Protective Environment 06/03/2022 06/03/2022 documented as of this encounter Care Teams Student Financial Services Counselor Relationship Specialty Start Date End Date Elsewhere, Pcp PCP - General Internal Medicine 04/01/22 documented as of this encounter
--- OUTSIDE RECORDS SUMMARY | 2023-03-21 10:41 | XMS_ITS | Encounter Summary ---
Author Name Unknown Organization [facility] Address [address] [place] [address] Care Team Providers Care Early Morning Babysitter Name Role Phone Elsewhere, Pcp Primary Care Provider Unavailabl e Reason for Visit * Reason Onset Date Comments ONC lab orders needed 06/08/2022 Encounter Details Date Type Department Care Team (Latest Contact Info) Description 06/08/2022 Clinical Communication Department of Oncology in [place], [place] [address] [place] [address] Mair Noguera M.D. [address] [place] [address] ONC lab orders needed Social [...] week 06/11/2021 How often do you attend [facility] or judaism services? 1 to 4 times per year [...] Answer Date Recorded PHQ-2 Score 4 11/18/2021 [facility] of Occupat ional Health - [...] Contact Info) Description 03/22/2023 7:30 AM SALES CLERK FOOD Appointment Department of Laboratory Medicine and Pathology, [facility], in [place], [place] [address] [place] [address] Mari Noguera M.D. [facility] [place] [address] 03/22/2023 8:45 AM SALES CLERK FOOD Hospital Encounter Outpatient Procedure Center in [place], [place] [address] [place] [address] Mari Noguera M.D. [address] [place] [phone] 03/31/2023 10:10 AM SALES CLERK FOOD Appointment Department of Laboratory Medicine in [place], [place] [address] [place] [address] Mari Noguera M.D. [address] [place] [phone] 04/04/2023 3:20 PM SALES CLERK FOOD Office Visit Department of Oncology in [address] [phone] Mari Noguera M.D. [address] [place] [phone] 04/04/2023 3:45 PM SALES CLERK FOOD Infusion Department of Infusion Therapy in [address] [address] Mari Noguera M.D. [address] [place] [phone] 04/13/2023 10:10 AM SALES CLERK FOOD Appointment Department of Laboratory Medicine in [place], [place] [address] [place] [address] Mari Noguera M.D. [address] [place] [phone] 04/14/2023 9:00 AM SALES CLERK FOOD Infusion Department of Infusion Therapy in [address] [phone] Mari Noguera M.D. [address] [facility] [address] documented as of this encounter Results [...] CDT Mari Noguera M.D. LAB BLOOD ADD-ON [facility] [address] [place], [place] [address], [place] RDWG [facility] in [place] [address] [place], [place] [phone] * (ABNORMAL) Monoclonal Protein Study, Expanded Panel (07/22/2022 10:41 AM CDT) Total Protein, S 6.0(L) 6.3 - 7.9 g/dL 07/22/2022 3:04 PM CDT ECLR [place] Free Light Chain, S 2.10(H) 0.3300 - 1.94 mg/dL 07/26/2022 8:47 AM CDT ECLR [place] Free Light Chain, S 1.75 0.5700 - 2.63 mg/dL 07/26/2022 8:47 AM CDT ECLR [place]/Lambda FLC Ratio 1.20 0.2600 - 1.65 07/26/2022 [...] AM CDT 07/22/2022 2:45 PM CDT Narrative [facility] - 07/27/2022 4:01 PM CDT Specimen Information: Specimen ID: [id number] Specimen Type: Blood Specimen Collection Start Date: 07/22/2022 10:41 AM Specimen Received Date: 07/22/2022 ??2:45 PM Specimen ID: [id number] Specimen Type: Blood Specimen Collection Start Date: 07/22/2022 10:41 AM Specimen Received Date: 07/22/2022 ??2:45 PM Specimen ID: [id number] Specimen Type: Blood Specimen Collection Start Date: 07/22/2022 10:41 AM Specimen Received Date: 07/22/2022 ??2:45 PM Mari Noguera M.D. LAB BLOOD ADD-ON [facility] [address] [place] [address], [facility] ECLR [facility] in [address] [address] [address] [place] [phone] * (ABNORMAL) Comprehensive Metabolic Panel (07/08/2022 8:35 [...] CDT Mari Noguera M.D. LAB BLOOD ADD-ON [facility] [address] [place] [address], [facility] RDWG [facility] in [place] [address] [place] [address] * (ABNORMAL) CBC with Differential, Blood (07/08/2022 [...] CDT Mari Noguera M.D. LAB BLOOD ADD-ON [facility] [address] [place] [address], [facility] RDWG [facility] in [place] [address] [place] [address] documented in this encounter Visit Diagnoses Diagnosis Multiple Myeloma Not Having Achieved Remission (HCC)- Primary Multiple Myeloma Not Having Achieved Remission (HCC) documented in this encounter Additional Health Concerns Infection Onset Date Last Indicated Resolved Time Protective Environment 06/03/2022 06/03/2022 documented as of this encounter Care Teams Early Morning Babysitter Relationship Specialty Start Date End Date Elsewhere, Pcp PCP - General Internal Medicine 04/01/22 documented as of this encounter
--- OUTSIDE RECORDS SUMMARY | 2023-03-21 10:42 | XMS_ITS | Encounter Summary ---
Author Name Unknown Organization [facility] Address [address] [place] [address] Care Team Providers Care Lab Courier Name Role Phone Elsewhere, Pcp Primary Care Provider Unavailabl e Reason for Visit * Episode Based Medications (Routine) - Authorized Specialty Diagnoses / Procedures Referred By Guillermina zamora Referred To Contact Diagnoses Multiple Myeloma Not Having Achieved Remission (HCC) Procedures MT ONDANSETRON HCL INJECTION MT DARATUMUMAB, HYALURONIDASE MT BORTEZOMIB INJECTION 1,800 mg on Day 1, 8, 15, 22 for cycles 1 & 2, Day 1, 15 3-6, Day 1 for cycle 7 / 28 day cycles / 17 total visits Mari Noguera M.D. [address] [place] [address] [facility] Region Referral ID Status Reason Start Date Expiration Date V isits Requested Visits Authorized [id number] Authorized 05/28/2021 02/27/2024 31 31 Encounter Details Date Type Department Care Team (Latest Contact Info) Description 05/06/2022 1:42 PM BAKERY MACHINE MECHANIC SUPERVISOR - 05/06/2022 11:59 PM BAKERY MACHINE MECHANIC SUPERVISOR Hospital Encounter Department of Laboratory Medicine in [place], [place] [address] [place] [phone] Mari Noguera M.D. [address] [place] [phone] Multiple Myeloma Not Having Achieved [...] or open. 21 capsule 0 05/06/2022 08/31/2022 magnesium chloride (SLOW-MAG) 71.[address] tablet Take 2 tablets (143 mg total) by mouth every morning before breakfast. Do not crush or chew. 30 tablet 1 01/28/2022 03/16/2023 penicillin V potassium (VEETIDS) 500 mg tablet Take 1 tablet (500 mg total) by mouth 2 (two) times a day. 60 tablet 11 12/01/2021 12/08/2022 RX WELCOME [id number] ONLY Welcome packet 1 each 0 04/26/2022 08/31/2022 documented as of this encounter Plan of Treatment Upcoming Encounters Date Type Department Care Team (Late st Contact Info) Description 03/22/2023 7:30 AM BAKERY MACHINE MECHANIC SUPERVISOR Appointment Department of Laboratory Medicine and Pathology, [facility], in [place], [place] [address] [place] [address] Mari Noguera M.D. [address] [place] [phone] 03/22/2023 8:45 AM BAKERY MACHINE MECHANIC SUPERVISOR Hospital Encounter Outpatient Procedure Center in [place], [place] [address] [place] [address] Mari Noguera M.D. [address] [place] [phone] 03/31/2023 10:10 AM BAKERY MACHINE MECHANIC SUPERVISOR Appointment Department of Laboratory Medicine in [address] [place] [address] Mari Noguera M.D. [address] [place] [phone] 04/04/2023 3:20 PM BAKERY MACHINE MECHANIC SUPERVISOR Office Visit Department of Oncology in [address] [phone] Mari Noguera M.D. [address] [place] [phone] 04/04/2023 3:45 PM BAKERY MACHINE MECHANIC SUPERVISOR Infusion Department of Infusion Therapy in [address] [phone] Mari Noguera M.D. [address] [place] [phone] 04/13/2023 10:10 AM BAKERY MACHINE MECHANIC SUPERVISOR Appointment Department of Laboratory Medicine in [address] [place] [address] Mari Noguera M.D. [address] [place] [phone] 04/14/2023 9:00 AM BAKERY MACHINE MECHANIC SUPERVISOR Infusion Department of Infusion Therapy in [address] [phone] Mari Noguera M.D. [address] [place] [phone] documented as of this encounter Procedures Procedure Name Priority Date/Time Associated Diagnosis Comments CBC WITH DIFFERENTIAL, B Routine 05/06/2022 1:56 PM BAKERY MACHINE MECHANIC SUPERVISOR Multiple Myeloma Not Having Achieved Remission (HCC) COMPREHENSIVE METABOLIC PANEL, S/P Routine 05/06/2022 1:56 PM BAKERY MACHINE MECHANIC SUPERVISOR Multiple Myeloma Not Having Achieved Remission (HCC) documented in this encounter Results * (ABNORMAL) Comprehensive Metabolic Panel (05/06/2022 1:56 PM BAKERY MACHINE MECHANIC SUPERVISOR) Pathologist [facility] Potassium, P 4.3 3.6 - 5.2 mmol/L 05/06/2022 2:20 PM BAKERY MACHINE MECHANIC SUPERVISOR RDWG Sodium, P 140 135 - 145 mmol/L 05/06/2022 2:20 PM BAKERY MACHINE MECHANIC SUPERVISOR RDW[facility] Chloride, P 101 98 - 107 mmol/L 05/06/2022 2:20 PM BAKERY MACHINE MECHANIC SUPERVISOR RDW[facility] Bicarbonate, P 30(H) 22 - 29 mmol/L 05/06/2022 2:20 PM BAKERY MACHINE MECHANIC SUPERVISOR RDW[facility] Anion Gap, P 9 7 - 15 05/06/2022 2:20 PM BAKERY MACHINE MECHANIC SUPERVISOR [facility] BUN (Blood Urea Nitrogen), P 17 6 - 21 mg/dL 05/06/2022 2:20 PM BAKERY MACHINE MECHANIC SUPERVISOR RDW[facility] Creatinine 0.85 0.59 - 1.04 mg/dL 05/06/2022 2:20 PM BAKERY MACHINE MECHANIC SUPERVISOR RDWG Estimated GFR (eGFR) 72 >=60 mL/min/BS A 05/06/2022 2:20 PM BAKERY MACHINE MECHANIC SUPERVISOR RDW[facility] Comment: Estimated GFR calculated using the 2020 CKD_EPI creatinine equation. Calcium, Total, P 10.0 8.8 - 10.2 mg/dL 05/06/2022 2:20 PM BAKERY MACHINE MECHANIC SUPERVISOR RDW[facility] Glucose, P 87 70 - 140 mg/dL 05/06/2022 2:20 PM BAKERY MACHINE MECHANIC SUPERVISOR RDW[facility] Protein, Total, P 6.7 6.3 - 7.9 g/dL 05/06/2022 2:20 PM BAKERY MACHINE MECHANIC SUPERVISOR RDW[facility] Albumin, P 4.2 3.5 - 5.0 g/dL 05/06/2022 2:20 PM BAKERY MACHINE MECHANIC SUPERVISOR RDW[facility] Aspartate Aminotransferase (AST), P 20 8 - 43 U/L 05/06/2022 2:20 PM BAKERY MACHINE MECHANIC SUPERVISOR RDW[facility] Alkaline Phosphatase, P 81 35 - 104 U/L 05/06/2022 2:20 PM BAKERY MACHINE MECHANIC SUPERVISOR RDW[facility] Alanine Aminotransferase (ALT), P 15 7 - 45 U/L 05/06/2022 2:20 PM BAKERY MACHINE MECHANIC SUPERVISOR RDWG Bilirubin, Total, P 0.3 <=1.2 mg/dL 05/06/2022 2:20 PM BAKERY MACHINE MECHANIC SUPERVISOR RDW[facility] Blood (Blood, Venous) 05/06/2022 1:56 PM BAKERY MACHINE MECHANIC SUPERVISOR 05/06/2022 1:57 PM BAKERY MACHINE MECHANIC SUPERVISOR Mari Noguera M.D. LAB BLOOD ADD-ON [facility] [address] [facility] [place] [address], [facility] RDWG [facility] in [place] 701 [place] [address] * CBC with Differential, Blood (05/06/2022 1:56 PM BAKERY MACHINE MECHANIC SUPERVISOR) Hemoglobin 12.9 11.6 - 15.0 g/dL 05/06/2022 2:04 PM BAKERY MACHINE MECHANIC SUPERVISOR RDWG Hematocrit 41.4 35.5 - 44.9 % 05/06/2022 2:04 PM BAKERY MACHINE MECHANIC SUPERVISOR RDWG Erythrocytes 4.43 3.92 - 5.13 x10(12)/L 05/06/2022 2:04 PM BAKERY MACHINE MECHANIC SUPERVISOR RDWG MCV 93.5 78.2 - 97.9 fL 05/06/2022 2:04 PM BAKERY MACHINE MECHANIC SUPERVISOR RDWG RBC Distrib Width 14.3 12.2 - 16.1 % 05/06/2022 2:04 PM BAKERY MACHINE MECHANIC SUPERVISOR RDWG Platelet Count 202 157 - 371 x10(9)/L 05/06/2022 2:04 PM BAKERY MACHINE MECHANIC SUPERVISOR RDW[facility] Leukocytes 6.8 3.4 - 9.6 x10(9)/L 05/06/2022 2:04 PM BAKERY MACHINE MECHANIC SUPERVISOR RDWG Neutrophils 4.77 1.56 - 6.45 x10(9)/L 05/06/2022 2:04 PM BAKERY MACHINE MECHANIC SUPERVISOR RDWG Lymphocytes 1.24 0.95 - 3.07 x10(9)/L 05/06/2022 2:04 PM BAKERY MACHINE MECHANIC SUPERVISOR RDWG Monocytes 0.65 0.26 - 0.81 x10(9)/L 05/06/2022 2:04 PM BAKERY MACHINE MECHANIC SUPERVISOR RDWG Eosinophils 0.14 0.03 - 0.48 x10(9)/L 05/06/2022 2:04 PM BAKERY MACHINE MECHANIC SUPERVISOR RDWG Basophils <0.03 0.01 - 0.08 x10(9)/L 05/06/2022 2:04 PM BAKERY MACHINE MECHANIC SUPERVISOR RDW[facility] Blood (Blood, Venous) 05/06/2022 1:56 PM BAKERY MACHINE MECHANIC SUPERVISOR 05/06/2022 1:56 PM BAKERY MACHINE MECHANIC SUPERVISOR Mari Noguera M.D. LAB BLOOD ADD-ON [facility] [address] [place] [address], [facility] RDWG [facility] in [place] [address] [place] [address] documented in this encounter Visit Diagnoses Diagnosis Multiple Myeloma Not Having Achieved Remission (HCC) documented in this encounter Care Teams Lab Courier Relationship Specialty Start Date End Date Elsewhere, Pcp PCP - General Internal Medicine 04/01/22 documented as of this encounter
--- OUTSIDE RECORDS SUMMARY | 2023-03-21 10:42 | XMS_ITS | Encounter Summary ---
Author Name Unknown Organization [facility] Address [address] [place] [address] Care Team Providers Care Support Merchandiser Name Role Phone Elsewhere, Pcp Primary Care [...] 17 total visits Mari Noguera M.D. [address] [place] [phone] [facility] Region Referral ID Status Reason Start Date Expiration Date V isits Requested Visits Authorized [id number] Authorized 05/28/2021 02/27/2024 31 31 Encounter Details Date Type Department Care Team (Latest Contact Info) Description 04/22/2022 12:51 PM ANALYTICS INTERN - 04/22/2022 11:59 PM ANALYTICS INTERN Hospital Encounter Department of Laboratory Medicine in [place], [place] [address] [place] [phone] Mari Noguera M.D. [address] [place] [phone] Multiple Myeloma Not Having Achieved [...] of cycle. 21 capsule 0 04/05/2022 05/06/2022 magnesium chloride (SLOW-MAG) 71.[address] tablet [...] st Contact Info) Description 03/22/2023 7:30 AM ANALYTICS INTERN Appointment Department of Laboratory Medicine and Pathology, [facility] in [place], [place] [address] [place] [address] Mari Noguera M.D. [address] [place] [phone] 03/22/2023 8:45 AM ANALYTICS INTERN Hospital Encounter Outpatient Procedure Center in [place], [place] [address] [place] [address] Mari Noguera M.D. [address] [place] [phone] 03/31/2023 10:10 AM ANALYTICS INTERN Appointment Department of Laboratory Medicine in [address] [phone] Mari Noguera M.D. [address] [place] [phone] 04/04/2023 3:20 PM ANALYTICS INTERN Office Visit Department of Oncology in [address] [phone] Mari Noguera M.D. [address] [place] [phone] 04/04/2023 3:45 PM ANALYTICS INTERN Infusion Department of Infusion Therapy in [address] [phone] Mari Noguera M.D. [address] [place] [phone] 04/13/2023 10:10 AM ANALYTICS INTERN Appointment Department of Laboratory Medicine in [place] [address] [facility] [address] Mari Noguera M.D. [address] [place] [phone] 04/14/2023 9:00 AM ANALYTICS INTERN Infusion Department of Infusion Therapy in [address] [phone] Mari Noguera M.D. [address] [place] [phone] documented as of this encounter Procedures Procedure Name Priority Date/Time Associated Diagnosis Comments CBC CHEMO - NO ALERTS Routine 04/22/2022 12:59 PM ANALYTICS INTERN Multiple Myeloma Not Having Achieved Remission (HCC) documented in this encounter Results * (ABNORMAL) CBC, Chemotherapy, No Alerts (04/22/2022 12:59 PM ANALYTICS INTERN) Hemoglobin 13.0 11.6 - 15.0 g/dL 04/22/2022 1:20 PM ANALYTICS INTERN RDWG Platelet Count 206 157 - 371 x10(9)/L 04/22/2022 1:20 PM ANALYTICS INTERN RDWG Leukocytes 9.3 3.4 - 9.6 x10(9)/L 04/22/2022 1:20 PM ANALYTICS INTERN RDWG Neutrophils 7.14(H) 1.56 - 6.45 x10(9)/L 04/22/2022 1:20 PM ANALYTICS INTERN RDWG Blood (Blood, Venous) 04/22/2022 12:59 PM ANALYTICS INTERN 04/22/2022 1:01 PM ANALYTICS INTERN Mari Noguera M.D. LAB BLOOD ADD-ON [facility] [address] [place] [address], [facility] RDWG [facility] in [place] [address] [place] [address] documented in this encounter Visit Diagnoses Diagnosis Multiple Myeloma Not Having Achieved Remission (HCC) documented in this encounter Care Teams Support Merchandiser Relationship Specialty Start Date End Date Elsewhere, Pcp PCP - General Internal Medicine 04/01/22 documented as of this encounter
--- OUTSIDE RECORDS SUMMARY | 2023-03-21 10:42 | XMS_ITS | Encounter Summary ---
Author Name Unknown Organization [facility] Address [address] [place] [address] Care Team Providers Care Fudger Name Role Phone Elsewhere, Pcp Primary Care Provider Unavailabl e Reason for Visit * Reason Onset Date Comments Medication Problem 05/02/2022 Encounter Details Date Type Department Care Team (Latest Contact Info) Description 05/02/2022 Clinical Communication [facility] [address] [place] [address] Allan Parsons, Pharm.D., R.Ph. [address] [place] [address] Medication Problem Social History Tobacco Use Types [...] attend [facility] or mosque services? 1 to 4 times [...] 11/18/2021 [facility] Occupat ionwv Health - Occupational Stress Questionnaire Answer Date [...] Parsons, Pharm.D., R.Ph. - 05/02/2022 2:37 PM BURIAL VAULT MAKER [facility] received Rx dated 03/23/22 for Revlimid 10 mg caps. The initial auth# is nowexpired. Can you please pursue new auth# and either send new Rx or update us with the new auth# so we can process the Rx? Thank you, [facility] AL VAULT MAKER documented in this encounter Plan of Treatment Upcoming Encounters Date Type Department Care Team (Late st Contact Info) Description 03/22/2023 7:30 AM BURIAL VAULT MAKER Appointment Department of Laboratory Medicine and Pathology, [facility], in [place], [place] [address] [place] [address] Mari Noguera M.D. [address] [place] [phone] 03/22/2023 8:45 AM BURIAL VAULT MAKER Hospital Encounter Outpatient Procedure Center in [place], [place] [address] [place] [address] Mari Noguera M.D. [address] [place] [phone] 03/31/2023 10:10 AM BURIAL VAULT MAKER Appointment Department of Laboratory Medicine in [address] [phone] Mari Noguera M.D. [address] [place] [phone] 04/04/2023 3:20 PM BURIAL VAULT MAKER Office Visit Department of Oncology in [address] [phone] Mari Noguera M.D. [address] [place] [address] [phone] 04/04/2023 3:45 PM BURIAL VAULT MAKER Infusion Department of Infusion Therapy in [address] [phone] Mari Noguera M.D. [address] [place] [phone] 04/13/2023 10:10 AM BURIAL VAULT MAKER Appointment Department of Laboratory Medicine in [address] [place] [phone] Mari Noguera M.D. [address] [place] [phone] 04/14/2023 9:00 AM BURIAL VAULT MAKER Infusion Department of Infusion Therapy in [address] [phone] Mari Noguera M.D. [address] [place] [phone] documented as of this encounter Visit Diagnoses Not on filedocumented in this encounter Care Teams Fudger Relationship Specialty Start Date End Date Elsewhere, Pcp PCP - General Internal Medicine 04/01/22 documented as of this encounter
--- OUTSIDE RECORDS SUMMARY | 2023-03-21 10:42 | XMS_ITS | Encounter Summary ---
Author Name Unknown Organization [facility] Address [address] [place] [address] Care Team Providers Care Vice President Fixed Income Name Role Phone Elsewhere, Pcp Primary Care [...] 17 total visits Mari Noguera M.D. [address] [place] [address] [facility] Region Referral ID Status Reason Start Date Expiration Date V isits Requested Visits Authorized [id number] Authorized 05/28/2021 02/27/2024 31 31 Encounter Details Date Type Department Care Team (Latest Contact Info) Description 05/20/2022 2:10 PM CDT - 05/20/2022 11:59 PM CDT Hospital Encounter Department of Laboratory Medicine in [place], [place] [address] [place] [phone] Mari Noguera M.D. [address] [place] [phone] Multiple Myeloma Not Having Achieved [...] do you attend [facility] or zoroastrian services? 1 to 4 times [...] Date Recorded PHQ-2 Score 4 11/18/2021 [facility] ional [facility] - Occupational [...] 60 tablet 11 12/01/2021 12/08/2022 RX WELCOME [id number]-[id number]-QB ONLY Welcome packet 1 each 0 04/26/2022 08/31/2022 documented as of this encounter Plan of Treatment Upcoming Encounters Date Type Department Care Team (Late st Contact Info) Description 03/22/2023 7:30 AM ENTERPRISE SOLUTIONS ARCHITECT Appointment Department of Laboratory Medicine and Pathology, [facility], in [place], [place] [address] [place] [phone] Mari Nougera M.D. [address] [place] [phone] 03/22/2023 8:45 AM ENTERPRISE SOLUTIONS ARCHITECT Hospital Encounter Outpatient Procedure Center in [place], [place] [address] [place] [phone] Mari Noguera M.D. [address] [place] [phone] 03/31/2023 10:10 AM ENTERPRISE SOLUTIONS ARCHITECT Appointment Department of Laboratory Medicine in [address] [place] [address] Mari Noguera M.D. [address] [place] [phone] 04/04/2023 3:20 PM ENTERPRISE SOLUTIONS ARCHITECT Office Visit Department of Oncology in [address] [phone] Mari Noguera M.D. [address] [place] [phone] 04/04/2023 3:45 PM ENTERPRISE SOLUTIONS ARCHITECT Infusion Department of Infusion Therapy in [address] [phone] Mari Noguera M.D. [address] [place] [phone] 04/13/2023 10:10 AM ENTERPRISE SOLUTIONS ARCHITECT Appointment Department of Laboratory Medicine in [address] [place] [address] Mari Noguera M.D. [address] [place] [phone] 04/14/2023 9:00 AM ENTERPRISE SOLUTIONS ARCHITECT Infusion Department of Infusion Therapy in [address] [phone] Mari Noguera M.D. [address] [place] [phone] documented as of this encounter Procedures Procedure Name Priority Date/Time Associated Diagnosis Comments MONOCLONAL PROTEIN STUDY (MPSS), EXPANDED PANEL, S Routine 05/20/2022 2:22 PM CDT Multiple Myeloma Not Having Achieved Remission (HCC) CBC WITH DIFFERENTIAL, B Routine 05/20/2022 2:22 PM CDT Multiple Myeloma Not Having Achieved Remission (HCC) documented in this encounter Results * (ABNORMAL) CBC with Differential, Blood (05/20/2022 2:22 PM CDT) Pathologist [facility] [place] Hemoglobin 11.9 11.6 - 15.0 g/dL 05/20/2022 [...] CDT Mari Noguera M.D. LAB BLOOD ADD-ON [facility] [address] [place] [address], [facility] RDW[facility] in [place] [address] [place] [address] * (ABNORMAL) Monoclonal Protein Study, Expanded Panel (05/20/2022 2:22 PM CDT) Total Protein, S 5.9(L) 6.3 - 7.9 g/dL 05/20/2022 9:34 PM CDT ECLR [place] Free Light Chain, S 0.7100 0.3300 - 1.94 mg/dL 05/23/2022 8:53 AM CDT ECLR [place] Free Light Chain, S 0.9200 0.5700 - 2.63 mg/dL 05/23/2022 8:53 AM CDT ECLR [place]/Lambda FLC Ratio 0.7717 0.2600 - 1.65 05/23/2022 [...] PM CDT 05/20/2022 9:09 PM CDT Narrative [facility] - 05/24/2022 8:11 AM CDT Specimen Information: Specimen ID: [id number] Specimen Type: Blood Specimen Collection Start Date: 05/20/2022 ??2:22 PM Specimen Received Date: 05/20/2022 ??9:09 PM Specimen ID: [id number] Specimen Type: Blood Specimen Collection Start Date: 05/20/2022 ??2:22 PM Specimen Received Date: 05/20/2022 ??9:09 PM Specimen ID: [id number] Specimen Type: Blood Specimen Collection Start Date: 05/20/2022 ??2:22 PM Specimen Received Date: 05/20/2022 ??9:09 PM Mari Noguera M.D. LAB BLOOD ADD-ON [facility] [address] [place] [address], [facility] ECLR [facility] in [address] [address] documented in this encounter Visit Diagnoses Diagnosis Multiple Myeloma Not Having Achieved Remission (HCC) documented in this encounter Care Teams Vice President Fixed Income Relationship Specialty Start Date End Date Elsewhere, Pcp PCP - General Internal Medicine 04/01/22 documented as of this encounter
--- OUTSIDE RECORDS SUMMARY | 2023-03-21 10:42 | XMS_ITS | Encounter Summary ---
Author Name Unknown Organization [facility] Address [address] [place] [address] Care Team Providers Care Ornament Stitcher Name Role Phone Elsewhere, Pcp Primary Care Provider Unavailabl e Reason for Visit * Reason Comments Med Refill Encounter Details Date Type Department Care Team (Late st Contact Info) Description 05/27/2022 Refill Department of Oncology in [place], [place] [address] [place] [phone] Mari Noguera M.D. [address] [place] [phone] Med Refill Social History Tobacco [...] you attend [facility] or rastafarian services? 1 to 4 times [...] 4 11/18/2021 [facility] of Occupat iontn Health - Occupational Stress Questionnaire Answer [...] st Contact Info) Description 03/22/2023 7:30 AM INTERACTIVE GRAPHIC DESIGNER Appointment Department of Laboratory Medicine and Pathology, [facility], in [place], [place] [address] [place] [address] Mari Noguera M.D. [address] [place] [address] 03/22/2023 8:45 AM INTERACTIVE GRAPHIC DESIGNER Hospital Encounter Outpatient Procedure Center in [place], [place] [address] [place] [address] Mari Noguera M.D. [facility] [place] [phone] 03/31/2023 10:10 AM INTERACTIVE GRAPHIC DESIGNER Appointment Department of Laboratory Medicine in [address] [place] [address] Mari Noguera M.D. [address] [place] [phone] 04/04/2023 3:20 PM INTERACTIVE GRAPHIC DESIGNER Office Visit Department of Oncology in [address] [phone] Mari Noguera M.D. [address] [place] [phone] 04/04/2023 3:45 PM INTERACTIVE GRAPHIC DESIGNER Infusion Department of Infusion Therapy in [address] [phone] Mari Ngouera M.D. [address] [place] [phone] 04/13/2023 10:10 AM INTERACTIVE GRAPHIC DESIGNER Appointment Department of Laboratory Medicine in [address] [phone] Mari Noguera M.D. [facility] [place] [address] 04/14/2023 9:00 AM INTERACTIVE GRAPHIC DESIGNER Infusion Department of Infusion Therapy in [address] [phone] Mari Noguera M.D. [address] [place] [phone] documented as of this encounter Visit Diagnoses Diagnosis Multiple Myeloma Not Having Achieved Remission (HCC) documented in this encounter Care Teams Ornament Stitcher Relationship Specialty Start Date End Date Elsewhere, Pcp PCP - General Internal Medicine 04/01/22 documented as of this encounter
--- OUTSIDE RECORDS SUMMARY | 2023-03-21 10:42 | XMS_ITS | Encounter Summary ---
Author Name Unknown Organization [facility] Address [address] [place] [address] Care Team Providers Care Encyclopedia Research Worker Name Role Phone Elsewhere, Pcp Primary Care Provider Unavailabl e Reason for Referral * Outpatient (Routine) Specialty Diagnoses / Procedures Referred By Guillermina zamora Referred To Contact Hematology Oncology Mari Noguera M.D. [address] [place] [phone] [facility] Region Referral ID Status Reason Start Date Expiration Date Visits Re quested Visits Authorized COT PACKER Reason for Visit * Reason Comments Follow-up [...] / 17 total visits Mari Noguera M.D. [address] [place] [phone] [facility] Region Referral ID Status Reason Start Date Expiration Date V isits Requested Visits Authorized [id number] Authorized 05/28/2021 02/27/2024 31 31 Encounter Details Date Type Department Care Team (Late st Contact Info) Description 05/06/2022 3:00 PM APRICOT PACKER Office Visit Department of Oncology in [place], [place] [address] [place] [address] Mari Noguera M.D. [address] [place] [phone] Multiple Myeloma Not Having Achieved Remission (HCC) [...] Answer Date Recorded PHQ-2 Score 4 11/18/2021 [facility] [place] of Occupat ional Health - Occupational Stress [...] Comments Blood Pressure 150/72 05/06/2022 2:46 PM APRICOT PACKER Pulse 55 05/06/2022 2:41 PM APRICOT PACKER Temperature 36.6 ??C (97.9 ??F) 05/06/2022 2:41 PM CS T Respiratory Rate - - Oxygen Saturation 94% 05/06/2022 2:41 PM APRICOT PACKER Inhaled Oxygen Concentration - - Weight 84 [...] kappa: 8.01 mg/L; lambda: 33.64 mg/L; [place]:Lambda Ratio: 0.24 SPEP: M-spike: 3.26 g/dL Immunofixation: [...] post ASCT day 0 12/02/2021 ([facility]) Ms. Treadwell will continue maintenance [...] in the perioperative period. Mari Noguera M.D. COT PACKER documented in this encounter Plan of Treatment Upcoming Encounters Date Type Department Care Team (Late st Contact Info) Description 03/22/2023 7:30 AM APRICOT PACKER Appointment Department of Laboratory Medicine and Pathology, [facility], in [place], [place] [address] [place] [address] Mari Noguera M.D. [address] [place] [phone] 03/22/2023 8:45 AM APRICOT PACKER Hospital Encounter Outpatient Procedure Center in [place], [place] [address] [place] [address] Mari Noguera M.D. [address] [place] [phone] 03/31/2023 10:10 AM APRICOT PACKER Appointment Department of Laboratory Medicine in [address] [address] Mari Noguera M.D. [address] [place] [phone] 04/04/2023 3:20 PM APRICOT PACKER Office Visit Department of Oncology in [address] [phone] Mari Noguera M.D. [address] [place] [phone] 04/04/2023 3:45 PM APRICOT PACKER Infusion Department of Infusion Therapy in [address] [phone] Mari Noguera M.D. [address] [place] [phone] 04/13/2023 10:10 AM APRICOT PACKER Appointment Department of Laboratory Medicine in [address] [phone] Mari Noguera M.D. [address] [place] [phone] 04/14/2023 9:00 AM APRICOT PACKER Infusion Department of Infusion Therapy in [address] [phone] Mari Noguera M.D. [facility] [place] [phone] Scheduled Referrals Name Type Priority Associated Diagnoses Order Schedule Hematology office visit (clinic) [facility] Region; Pre-Chemo Outpatient Referral Routine Multiple Myeloma Not Having Achieved Remission (HCC) Expected: 05/31/2022, Expires: 06/01/2023 documented as of this encounter Results * (ABNORMAL) Comprehensive Metabolic Panel (06/07/2022 1:11 PM CDT) Pathologist [facility] Potassium, P 4.4 3.6 - 5.2 mmol/L [...] [facility] [address] [place] [address], [facility] in [place] [address] [place] [phone] * (ABNORMAL) CBC with Differential, Blood (06/07/2022 [...] M.D. LAB BLOOD ADD-ON Performing Organization Address City/State/[facility] Co de Phone Number [facility] [address] [place] [address], [facility] in [place] [address] [place] [phone] * (ABNORMAL) CBC with Differential, Blood (05/20/2022 [...] M.D. LAB BLOOD ADD-ON [facility] [address] [place] [address], [facility] in [place] [address] [place] [phone] * (ABNORMAL) Monoclonal Protein Study, Expanded Panel (05/20/2022 2:22 PM CDT) Total Protein, S 5.9(L) 6.3 - 7.9 g/dL 05/20/2022 9:34 PM CDT [facility] [place] Free Light Chain, S 0.7100 0.3300 - 1.94 mg/dL 05/23/2022 8:53 AM CDT ECLR [place]ambda Free Light Chain, S 0.9200 0.5700 - 2.63 mg/dL 05/23/2022 8:53 AM CDT ECLR [place]/Lambda FLC Ratio 0.7717 0.2600 - 1.65 05/23/2022 [...] 2:22 PM CDT 05/20/2022 9:09 PM CDT [facility] - 05/24/2022 8:11 AM CDT Specimen Information: Specimen ID: [id number] Specimen Type: Blood Specimen Collection Start Date: 05/20/2022 ??2:22 PM Specimen Received Date: 05/20/2022 ??9:09 PM Specimen ID: [id number] Specimen Type: Blood Specimen Collection Start Date: 05/20/2022 ??2:22 PM Specimen Received Date: 05/20/2022 ??9:09 PM Specimen ID: [id number] Specimen Type: Blood Specimen Collection Start Date: 05/20/2022 ??2:22 PM Specimen Received Date: 05/20/2022 ??9:09 PM Mari Noguera M.D. LAB BLOOD ADD-ON [facility] [address] [place] [address], [facility] in [place] [address] [place] [address] documented in this encounter Visit Diagnoses Diagnosis Multiple Myeloma Not Having Achieved Remission (HCC)- Primary Multiple Myeloma Not Having Achieved Remission (HCC) documented in this encounter Care Teams Encyclopedia Research Worker Relationship Specialty Start Date End Date Elsewhere, Pcp PCP - General Internal Medicine 04/01/22 documented as of this encounter
--- OUTSIDE RECORDS SUMMARY | 2023-03-21 10:42 | XMS_ITS | Encounter Summary ---
Author Name Unknown Organization [facility] Address [address] [place] [address] Care Team Providers Care Bull Driver Name Role Phone Elsewhere, Pcp Primary [...] 17 total visits Mari Noguera M.D. [address] [place] [phone] [facility] Region Referral ID Status Reason Start Date Expiration Date V isits Requested Visits Authorized [id number] Authorized 05/28/2021 02/27/2024 31 31 Encounter Details Date Type Department Care Team (Late st Contact Info) Description 05/06/2022 3:45 PM COMPLIANCE EXAMINER Infusion Department of Infusion Therapy in [address] [phone] Mari Noguera M.D. [address] [place] [phone] Multiple Myeloma Not Having Achieved Remission (HCC) [...] week 06/11/2021 How often do you attend [facility] or scientologist services? 1 to 4 times [...] Answer Date Recorded PHQ-2 Score 4 11/18/2021 [facility] [place] of Occupat ional [facility] - Occupational Stress Questionnaire Answer Date Recorded [...] Comments Blood Pressure 175/71 05/06/2022 3:03 PM COMPLIANCE EXAMINER Pulse 55 05/06/2022 3:03 PM COMPLIANCE EXAMINER Temperature 36.1 ??C (97 ??F) 05/06/2022 3:03 PM COMPLIANCE EXAMINER Respiratory Rate 18 05/06/2022 3:03 PM COMPLIANCE EXAMINER Oxygen Saturation 96% 05/06/2022 3:03 PM COMPLIANCE EXAMINER Inhaled Oxygen Concentration - - Weight - - Height - - Body Mass Index - - documented in this encounter Plan of Treatment Upcoming Encounters Date Type Department Care Team (Late st Contact Info) Description 03/22/2023 7:30 AM COMPLIANCE EXAMINER Appointment Department of Laboratory Medicine and Pathology, [facility] in [place], [place] [address] [place] [address] Mari Noguera M.D. [address] [place] [phone] 03/22/2023 8:45 AM COMPLIANCE EXAMINER Hospital Encounter Outpatient Procedure Center in [place], [place] [address] [place] [address] Mari Noguera M.D. [address] [place] [phone] 03/31/2023 10:10 AM COMPLIANCE EXAMINER Appointment Department of Laboratory Medicine in [address] [phone] Mari Noguera M.D. [address] [place] [phone] 04/04/2023 3:20 PM COMPLIANCE EXAMINER Office Visit Department of Oncology in [address] [place] [phone] Mari Noguera M.D. [address] [place] [phone] 04/04/2023 3:45 PM COMPLIANCE EXAMINER Infusion Department of Infusion Therapy in [address] [phone] Mari Noguera M.D. [address] [place] [phone] 04/13/2023 10:10 AM COMPLIANCE EXAMINER Appointment Department of Laboratory Medicine in [address] [place] [address] Mari Noguera M.D. [address] [place] [phone] 04/14/2023 9:00 AM COMPLIANCE EXAMINER Infusion Department of Infusion Therapy in [address] [phone] Mari Noguera M.D. [address] [place] [phone] documented as of this encounter Visit Diagnoses [...] Rotate injection site. Given 05/06/2022 3:42 PM COMPLIANCE EXAMINER 2.5 mg Left Upper Abdomen documented in this encounter Care Teams Bull Driver Relationship Specialty Start Date End Date Elsewhere, Pcp PCP - General Internal Medicine 04/01/22 documented as of this encounter
--- OUTSIDE RECORDS SUMMARY | 2023-03-21 10:42 | XMS_ITS | Encounter Summary ---
Author Name Unknown Organization [facility] Address [address] [place] [address] Care Team Providers Care Global Program Director Name Role Phone Elsewhere, Pcp Primary [...] 17 total visits Mari Noguera M.D. [address] [place] [address] [facility] Region Referral ID Status Reason Start Date Expiration Date V isits Requested Visits Authorized [id number] Authorized 05/28/2021 02/27/2024 31 31 Encounter Details Date Type Department Care Team (Late st Contact Info) Description 05/20/2022 3:30 PM CDT Infusion Department of Infusion Therapy in [place], [place] [address] [place] [phone] Mari Noguera M.D. [address] [place] [phone] Multiple Myeloma Not Having Achieved Remission [...] How often do you attend chur or cheondoism services? 1 to 4 times [...] [facility] of Occupat ional [facility] [...] st Contact Info) Description 03/22/2023 7:30 AM RESOLUTE PROFESSIONAL Appointment Department of Laboratory Medicine and Pathology, [facility] in [place], [place] [address] [place] [address] Mari Noguera M.D. [address] [place] [phone] 03/22/2023 8:45 AM RESOLUTE PROFESSIONAL Hospital Encounter Outpatient Procedure Center in [place], [place] [address] [place] [address] Mari Noguera M.D. [address] [place] [phone] 03/31/2023 10:10 AM RESOLUTE PROFESSIONAL Appointment Department of Laboratory Medicine in [address] [phone] Mari Noguera M.D. [address] [place] [phone] 04/04/2023 3:20 PM RESOLUTE PROFESSIONAL Office Visit Department of Oncology in [address] [phone] Mari Noguera M.D. [address] [place] [phone] 04/04/2023 3:45 PM RESOLUTE PROFESSIONAL Infusion Department of Infusion Therapy in [address] [phone] Mari Noguera M.D. [address] [place] [phone] 04/13/2023 10:10 AM RESOLUTE PROFESSIONAL Appointment Department of Laboratory Medicine in [address] [phone] Mari Noguera M.D. [address] [place] [phone] 04/14/2023 9:00 AM RESOLUTE PROFESSIONAL Infusion Department of Infusion Therapy in [address] [phone] Mari Noguera M.D. [address] [place] [phone] documented as of this encounter Visit Diagnoses [...] Abdomen documented in this encounter Care Teams Global Program Director Relationship Specialty Start Date End Date Elsewhere, Pcp PCP - General Internal Medicine 04/01/22 documented as of this encounter
--- OUTSIDE RECORDS SUMMARY | 2023-03-21 10:42 | XMS_ITS | Encounter Summary ---
Demographics Address [address] [facility] [address] [place] [address] Mobile Phone Home Phone Email Address Preferred Language ENG Marital Status Restoration Affiliation Unknown Race White Ethnic Group Not or Lati no Author Name Unknown Organization [facility] Address [address] [place] [address] Care Team Providers Care Corporate Staff Accountant Name Role Phone Elsewhere, Pcp Primary Care Provider Unavailabl e Reason for Visit * Reason Comments Med Refill Encounter Details Date Type Department Care Team (Late st Contact Info) Description 05/03/2022 Refill Department of Oncology in [place], [place] [address] [place] [phone] Mari Noguera M.D. [address] [place] [phone] Med Refill Social History Tobacco [...] week 06/11/2021 How often do you attend [facility] or adventist services? 1 to 4 [...] 4 11/18/2021 [facility] of Occupat ionsd Health - Occupational Stress Questionnaire Answer [...] st Contact Info) Description 03/22/2023 7:30 AM TRAM DRIVER Appointment Department of Laboratory Medicine and Pathology, [facility], in [place], [place] [address] [place] [address] Mari Noguera M.D. [address] [place] [phone] 03/22/2023 8:45 AM TRAM DRIVER Hospital Encounter Outpatient Procedure Center in [place], [place] [address] [place] [address] Mari Noguera M.D. [facility] [phone] 03/31/2023 10:10 AM TRAM DRIVER Appointment Department of Laboratory Medicine in [address] [place] [address] Mari Noguera M.D. [address] [place] [phone] 04/04/2023 3:20 PM TRAM DRIVER Office Visit Department of Oncology in [address] [phone] Mari Noguera M.D. [address] [place] [phone] 04/04/2023 3:45 PM TRAM DRIVER Infusion Department of Infusion Therapy in [address] [phone] Mari Noguera M.D. [address] [place] [phone] 04/13/2023 10:10 AM TRAM DRIVER Appointment Department of Laboratory Medicine in [address] [phone] Mari Noguera M.D. [facility] [place] [address] 04/14/2023 9:00 AM TRAM DRIVER Infusion Department of Infusion Therapy in [address] [phone] Mari Noguera M.D. [address] [place] [phone] documented as of this encounter Visit Diagnoses Not on filedocumented in this encounter Care Teams Corporate Staff Accountant Relationship Specialty Start Date End Date Elsewhere, Pcp PCP - General Internal Medicine 04/01/22 documented as of this encounter
--- OUTSIDE RECORDS SUMMARY | 2023-03-21 10:42 | XMS_ITS | Encounter Summary ---
Author Name Unknown Organization [facility] Address [address] [place] [address] Care Team Providers Care Curriculum Developer Name Role Phone Elsewhere, Pcp Primary Care Provider Unavailabl e Encounter Details Date Type Department Care Team (Latest Contact Info) Description 05/09/2022 Specialty Pharmacy [facility] [address] [place] [address] Rachel Ruiz, Pharm.D., R.Ph. [address] [place] [address] Multiple Myeloma Not Having Achieved Remission (HCC) [...] after stopping therapy. Educational resource/decision support tools: www.[employer].shopa and patient support programs on that site and [facility]. Patient/caregiver counseling was abreviated because the patient [...] sensitivity, medication and health history considered at summer counselor (renal function if available). To optimize outcomes, patient assessed for the need of other possible supportive therapies and informed of importance of proper monitoring and future reassessment. The patient/caregiver's prior education on this new therapy and disease specific knowledge were assessed with counseling and education tailored to this level of understanding. Christianson concerns and questions were addressed. Patient specific considerations/desires/requests noted at summer counselor:None noted at this time. Patient is able to self-administer the medication(s). No social, environmental, functional or cognitive barriers are apparent. Patient is eligible for service through [facility]. Links to access additional resources [...] 'Treatment Goal' in 'Treatment Plan Information' of [facility]. The patient has decided to use the [facility]. Follow-up: 1 month(s) Rachel Ruiz Pharm.D. documented in this encounter Plan of Treatment Upcoming Encounters Date Type Department Care Team (Late st Contact Info) Description 03/22/2023 7:30 AM REFRACTORY BRICKLAYER Appointment Department of Laboratory Medicine and Pathology, [facility] in [place], [place] [address] [place] [phone] Mari Noguera M.D. [address] [place] [phone] 03/22/2023 8:45 AM REFRACTORY BRICKLAYER Hospital Encounter Outpatient Procedure Center in [place], [place] [address] [place] [address] Mari Noguera M.D. [address] [place] [phone] 03/31/2023 10:10 AM REFRACTORY BRICKLAYER Appointment Department of Laboratory Medicine in [address] [phone] Mari Noguera M.D. [address] [place] [phone] 04/04/2023 3:20 PM REFRACTORY BRICKLAYER Office Visit Department of Oncology in [place] [address] [place] [phone] Mari Noguera M.D. [address] [place], [place] [address] [phone] 04/04/2023 3:45 PM REFRACTORY BRICKLAYER Infusion Department of Infusion Therapy in [address] [phone] Mari Noguera M.D. [address] [place] [phone] 04/13/2023 10:10 AM REFRACTORY BRICKLAYER Appointment Department of Laboratory Medicine in [address] [phone] Mari Noguera M.D. [address] [place] [phone] 04/14/2023 9:00 AM REFRACTORY BRICKLAYER Infusion Department of Infusion Therapy in [address] [place] [phone] Mari Noguera M.D. [address] [place] [phone] documented as of this encounter Visit Diagnoses Diagnosis Multiple Myeloma Not Having Achieved Remission (HCC)- Primary documented in this encounter Care Teams Curriculum Developer Relationship Specialty Start Date End Date Elsewhere, Pcp PCP - General Internal Medicine 04/01/22 documented as of this encounter
--- OUTSIDE RECORDS SUMMARY | 2023-03-21 10:42 | XMS_ITS | Encounter Summary ---
Author Name Unknown Organization [facility] Address [address] [place] [address] Care Team Providers Care Central Scheduler Name Role Phone Elsewhere, Pcp Primary Care Provider Unavailabl e Encounter Details Date Type Department Care Team (Late st Contact Info) Description 04/25/2022 Specialty Pharmacy [facility] [address] [place] [phone] Katelin Vargas, Pharm.D., R.Ph. [address] [place] [phone] Social History Tobacco Use Types Packs/Day Years [...] Vargas Pharm.D., R.Ph. - 04/25/2022 4:24 PM DIVISIONAL MERCHANDISING MANAGER Note created for purposes of potential enrollment with [facility] and medication interaction check via [employer] interaction construction checker. No telephone contact with patient at this point. 04/25/22 Katelin Vargas Pharm.D., R.Ph. SIONAL MERCHANDISING MANAGER documented in this encounter Plan of Treatment Upcoming Encounters Date Type Department Care Team (Late st Contact Info) Description 03/22/2023 7:30 AM DIVISIONAL MERCHANDISING MANAGER Appointment Department of Laboratory Medicine and Pathology, [facility] in [place], [place] [address] [place] [address] Mari Noguera M.D. [address] [place] [phone] 03/22/2023 8:45 AM DIVISIONAL MERCHANDISING MANAGER Hospital Encounter Outpatient Procedure Center in [place], [place] [address] [place] [address] Mari Noguera M.D. [address] [place] [phone] 03/31/2023 10:10 AM DIVISIONAL MERCHANDISING MANAGER Appointment Department of Laboratory Medicine in [address] [address] Mari Noguera M.D. [address] [place] [phone] 04/04/2023 3:20 PM DIVISIONAL MERCHANDISING MANAGER Office Visit Department of Oncology in [address] [phone] Mari Noguera M.D. [address] [place] [phone] 04/04/2023 3:45 PM DIVISIONAL MERCHANDISING MANAGER Infusion Department of Infusion Therapy in [address] [phone] Mari Noguera M.D. [address] [place] [phone] 04/13/2023 10:10 AM DIVISIONAL MERCHANDISING MANAGER Appointment Department of Laboratory Medicine in [place], [place] [address] [place] [address] Mari Noguera M.D. [address] [place] [phone] 04/14/2023 9:00 AM DIVISIONAL MERCHANDISING MANAGER Infusion Department of Infusion Therapy in [address] [phone] Mari Noguera M.D. [address] [place] [phone] documented as of this encounter Visit Diagnoses Not on filedocumented in this encounter Care Teams Central Scheduler Relationship Specialty Start Date End Date Elsewhere, Pcp PCP - General Internal Medicine 04/01/22 documented as of this encounter
--- OUTSIDE RECORDS SUMMARY | 2023-03-21 10:43 | XMS_ITS | Encounter Summary ---
Author Name Unknown Organization [facility] Address [address] [place] [address] Care Team Providers Care Art Objects Salesperson Name Role Phone Elsewhere, Pcp Primary Care [...] 17 total visits Mari Noguera M.D. [address] [place] [address] [facility] Region Referral ID Status Reason Start Date Expiration Date V isits Requested Visits Authorized [id number] Authorized 05/28/2021 02/27/2024 31 31 Encounter Details Date Type Department Care Team (Late st Contact Info) Description 04/22/2022 2:15 PM BANQUET LEAD Infusion Department of Infusion Therapy in [address] [phone] Mari Noguera M.D. [address] [place] [phone] Multiple Myeloma Not Having Achieved Remission [...] 11/18/2021 [facility] of Occupat ional [facility] - Occupational Stress Questionnaire Answer Date [...] Comments Blood Pressure 188/91 04/22/2022 1:29 PM BANQUET LEAD Pt planning to see PCP Pulse 84 04/22/2022 1:29 PM BANQUET LEAD Temperature 36.2 ??C (97.2 ??F) 04/22/2022 1 :29 PM BANQUET LEAD Respiratory Rate 20 04/22/2022 1:29 PM BANQUET LEAD Oxygen Saturation 97% 04/22/2022 1:2 9 PM BANQUET LEAD Inhaled Oxygen Concentration - - Weight - - Height - - Body Mass Index - - documented in this encounter Plan of Treatment Upcoming Encounters Date Type Department Care Team (Late st Contact Info) Description 03/22/2023 7:30 AM BANQUET LEAD Appointment Department of Laboratory Medicine and Pathology, [facility], in [place], [place] [address] [place] [address] Mari Noguera M.D. [address] [place] [phone] 03/22/2023 8:45 AM BANQUET LEAD Hospital Encounter Outpatient Procedure Center in [place], [place] [address] [place] [address] Mari Noguera M.D. [address] [place] [phone] 03/31/2023 10:10 AM BANQUET LEAD Appointment Department of Laboratory Medicine in [address] [phone] Mari Noguera M.D. [address] [place] [phone] 04/04/2023 3:20 PM BANQUET LEAD Office Visit Department of Oncology in [address] [phone] Mari Noguera M.D. [address] [place] [phone] 04/04/2023 3:45 PM BANQUET LEAD Infusion Department of Infusion Therapy in [address] [phone] Mari Noguera M.D. [address] [place] [phone] 04/13/2023 10:10 AM BANQUET LEAD Appointment Department of Laboratory Medicine in [address] [phone] Mari Noguera M.D. [address] [place] [phone] 04/14/2023 9:00 AM BANQUET LEAD Infusion Department of Infusion Therapy in [address] [phone] Mari Noguera M.D. [address] [place] [phone] documented as of this encounter Visit Diagnoses [...] Rotate injection site. Given 04/22/2022 2:04 PM BANQUET LEAD 2.5 mg Right Upper Abdomen documented in this encounter Care Teams Art Objects Salesperson Relationship Specialty Start Date End Date Elsewhere, Pcp PCP - General Internal Medicine 04/01/22 documented as of this encounter
--- OUTSIDE RECORDS SUMMARY | 2023-03-21 10:43 | XMS_ITS | Encounter Summary ---
Author Name Unknown Organization [facility] Address [address] [place] [address] Care Team Providers Care Student Ministries Director Name Role Phone Unavailable Primary Care Provider Unavailabl e Reason for Visit * Reason Onset Date Comments Graduation 03/30/2022 Patient graduate d from the Remote Monitoring program. Encounter Details Date Type Department Care Team (Latest Contact Info) Description 03/30/2022 Remote Monitoring Remote Patient Monitoring [facility] [address] [place] [address] Joseline Dan C [address] [place] [address] Graduation (Patient graduated from the Remote Monitoring [...] How often do you attend chur or methodist services? 1 to 4 times per year [...] Recorded PHQ-2 Score 4 11/18/2021 [facility] - Occupational Stress Questionnaire [...] st Contact Info) Description 03/22/2023 7:30 AM WINERY CELLAR HAND Appointment Department of Laboratory Medicine and Pathology, [facility], in [place], [place] [address] [place] [address] Mari Noguera M.D. [address] [place] [phone] 03/22/2023 8:45 AM WINERY CELLAR HAND Hospital Encounter Outpatient Procedure Center in [place], [place] [address] [place] [address] Mari Noguera [place] [phone] 03/31/2023 10:10 AM WINERY CELLAR HAND Appointment Department of Laboratory Medicine in [address] [address] Mari Noguera M.D. [address] [place] [phone] 04/04/2023 3:20 PM WINERY CELLAR HAND Office Visit Department of Oncology in [address] [phone] Mari Noguera M.D. [address] [place] [phone] 04/04/2023 3:45 PM WINERY CELLAR HAND Infusion Department of Infusion Therapy in [address] [address] Mari Noguera M.D. [address] [place] [phone] 04/13/2023 10:10 AM WINERY CELLAR HAND Appointment Department of Laboratory Medicine in [address] [address] Mari Noguera M.D. [address] [place] [phone] 04/14/2023 9:00 AM WINERY CELLAR HAND Infusion Department of Infusion Therapy in [address] [phone] Mari Noguera M.D. [address] [facility] [place] [phone] documented as of this encounter Visit Diagnoses Not on filedocumented in this encounter Additional Health Concerns Infection Onset Date Last Indicated Resolved Time COVID19 03/19/2022 03/19/2022 04/08/2022 5:08 AM WINERY CELLAR HAND documented as of this encounter
--- OUTSIDE RECORDS SUMMARY | 2023-03-21 10:43 | XMS_ITS | Encounter Summary ---
Author Name Unknown Organization [facility] Address [address] [place] [address] Care Team Providers Care Construction Executive Name Role Phone Elsewhere, Pcp Primary Care Provider Unavailabl e Reason for Visit * Reason Comments Follow-up * Outpatient (Routine) - Closed Specialty Diagnoses / Procedures Referred By Guillermina zamora Referred To Contact Oncology Mari Noguera M.D. [address] [place] [address] [facility] Region Referral ID Status Reason Start Date Expiration Date Visits Re quested Visits Authorized [id number] Closed 03/23/2022 03/22/2025 1 1 Encounter Details Date Type Department Care Team (Late st Contact Info) Description 04/08/2022 9:00 AM EXECUTIVE SALES ASSISTANT Office Visit Department of Oncology in [place], [place] [address] [place] [address] Mari Noguera M.D. [address] [place] [phone] Multiple Myeloma In Remission (HCC) [...] you attend [facility] or mormon services? 1 to 4 [...] Answer Date Recorded PHQ-2 Score 4 11/18/2021 [facility] of Occupat ional Health - Occupational Stress [...] Comments Blood Pressure 149/73 04/08/2022 8:59 AM EXECUTIVE SALES ASSISTANT Pulse 66 04/08/2022 8:49 AM EXECUTIVE SALES ASSISTANT Temperature 37 ??C (98.6 ??F) 04/08/2022 8:49 AM EXECUTIVE SALES ASSISTANT Respiratory Rate - - Oxygen Saturation 94% 04/08/2022 8:49 AM EXECUTIVE SALES ASSISTANT Inhaled Oxygen Concentration - - Weight 85.4 kg (188 lb 4.4 oz) 04/08/2022 8:49 A M EXECUTIVE SALES ASSISTANT Height - - Body Mass Index [...] chains: kappa: 8.01 mg/L; lambda: 33.64 mg/L; [place]ola:Lambda Ratio: 0.24 SPEP: M-spike: 3.26 g/dL Immunofixation: [...] ([facility]) Ms. Treadwell will begin maintenance therapy with [...] planning and care coordination Mari Noguera M.D. UTIVE SALES ASSISTANT documented in this encounter Plan of Treatment Upcoming Encounters Date Type Department Care Team (Late st Contact Info) Description 03/22/2023 7:30 AM EXECUTIVE SALES ASSISTANT Appointment Department of Laboratory Medicine and Pathology, [facility] in [place], [place] [address] [place] [address] Mari Noguera M.D. [address] [place] [phone] 03/22/2023 8:45 AM EXECUTIVE SALES ASSISTANT Hospital Encounter Outpatient Procedure Center in [place], [place] [address] [place] [address] Mari Noguera M.D. [address] [place] [phone] 03/31/2023 10:10 AM EXECUTIVE SALES ASSISTANT Appointment Department of Laboratory Medicine in [address] [phone] Mari Noguera M.D. [address] [place] [phone] 04/04/2023 3:20 PM EXECUTIVE SALES ASSISTANT Office Visit Department of Oncology in [address] [place] [phone] Mari Noguera M.D. [address] [place] [phone] 04/04/2023 3:45 PM EXECUTIVE SALES ASSISTANT Infusion Department of Infusion Therapy in [address] [phone] Mari Noguera M.D. [address] [place] [phone] 04/13/2023 10:10 AM EXECUTIVE SALES ASSISTANT Appointment Department of Laboratory Medicine in [address] [place] [address] Mari Noguera M.D. [address] [place] [phone] 04/14/2023 9:00 AM EXECUTIVE SALES ASSISTANT Infusion Department of Infusion Therapy in [address] [phone] Mari Noguera M.D. [address] [place] [phone] documented as of this encounter Visit Diagnoses Diagnosis Multiple Myeloma In Remission (HCC)- Primary documented in this encounter Care Teams Construction Executive Relationship Specialty Start Date End Date Elsewhere, Pcp PCP - General Internal Medicine 04/01/22 documented as of this encounter
--- OUTSIDE RECORDS SUMMARY | 2023-03-21 10:43 | XMS_ITS | Encounter Summary ---
Author Name Unknown Organization [facility] Address [address] [place] [address] Care Team Providers Care [facility] Name Role Phone Unavailable Primary Care Provider Unavailabl e Reason for Visit * Reason Onset Date Comments COVID-19 Remote Patient Monitoring 03/30/2022 Follow-up 03/30/2022 Encounter Details Date Type Department Care Team (Latest Contact Info) Description 03/30/2022 Remote Monitoring Remote Patient Monitoring [facility] [address] [place] [address] India Saunders, RAbrahamNAbraham [address] [place] [phone] COVID-19 Remote Patient Monitoring; Follow-up Social History [...] any questions or concerns in the interim. OLIC PRIEST documented in this encounter Plan of Treatment Upcoming Encounters Date Type Department Care Team (Late st Contact Info) Description 03/22/2023 7:30 AM CATHOLIC PRIEST Appointment Department of Laboratory Medicine and Pathology, [facility] in [place], [place] [address] [place] [address] Mari Noguera M.D. [address] [place] [phone] 03/22/2023 8:45 AM CATHOLIC PRIEST Hospital Encounter Outpatient Procedure Center in [place], [place] [address] [place] [address] Mari Noguera M.D. [address] [place] [phone] 03/31/2023 10:10 AM CATHOLIC PRIEST Appointment Department of Laboratory Medicine in [address] [address] Mari Noguera M.D. [address] [place] [phone] 04/04/2023 3:20 PM CATHOLIC PRIEST Office Visit Department of Oncology in [place] [address] [address] [facility] [address] Mari Noguera M.D. [facility] [place] [address] 04/04/2023 3:45 PM CATHOLIC PRIEST Infusion Department of Infusion Therapy in [place] [address] [address] [facility] [phone] Mari Noguera M.D. [address] [place] [phone] 04/13/2023 10:10 AM CATHOLIC PRIEST Appointment Department of Laboratory Medicine in [address] [place] [address] Mari Noguera M.D. [address] [place] [phone] 04/14/2023 9:00 AM CATHOLIC PRIEST Infusion Department of Infusion Therapy in [address] [phone] Mari Noguera M.D. [address] [place] [phone] documented as of this encounter Visit Diagnoses Not on filedocumented in this encounter Additional Health Concerns Infection Onset Date Last Indicated Resolved Time COVID19 03/19/2022 03/19/2022 04/08/2022 5:08 AM CATHOLIC PRIEST documented as of this encounter
--- OUTSIDE RECORDS SUMMARY | 2023-03-21 10:43 | XMS_ITS | Encounter Summary ---
Author Name Unknown Organization [facility] Address [address] [place] [address] Care Team Providers Care Basket Mender Name Role Phone Elsewhere, Pcp Primary Care Provider Unavailabl e Reason for Visit * Reason Onset Date Comments Rev[employer] Access and Reimbursement 04/13/2022 [facility] [employer] Access Support Encounter Details Date Type Department Care Team (Latest Contact Info) Description 04/13/2022 Clinical Communication Department of Oncology in [place], [place] [address] [place] [phone] Mari Noguera M.D. [address] [place] [address] [employer] Access and Reimbursement ([employer] Access Support) Social History Tobacco [...] How often do you attend chur or catholic services? 1 to 4 times [...] Answer Date Recorded PHQ-2 Score 4 11/18/2021 [facility] of Occupat ional Health - [...] PM CST Provider completed document, faxed to [employer] and placed to be scanned. Fax- [phone] RESSOR HOUSE OPERATOR * Telephone Encounter - Jose A Villasenor - 04/13/2022 10:39 AM CST On 04/12/2022 received Physician form for support of Revlim[employer]. Placed document on providers desk for completion. RESSOR HOUSE OPERATOR documented in this encounter Plan of Treatment Upcoming Encounters Date Type Department Care Team (Late st Contact Info) Description 03/22/2023 7:30 AM COMPRESSOR HOUSE OPERATOR Appointment Department of Laboratory Medicine and Pathology, [facility], in [place], [place] [address] [place] [address] Mari Noguera M.D. [address] [place] [phone] 03/22/2023 8:45 AM COMPRESSOR HOUSE OPERATOR Hospital Encounter Outpatient Procedure Center in [place], [place] [address] [place] [address] Mari Noguera M.D. [address] [place] [phone] 03/31/2023 10:10 AM COMPRESSOR HOUSE OPERATOR Appointment Department of Laboratory Medicine in [address] [address] Mari Noguera M.D. [address] [place] [phone] 04/04/2023 3:20 PM COMPRESSOR HOUSE OPERATOR Office Visit Department of Oncology in [address] [phone] Mari Noguera M.D. [address] [place] [phone] 04/04/2023 3:45 PM COMPRESSOR HOUSE OPERATOR Infusion Department of Infusion Therapy in [place] [address] [place] [phone] Mari Noguera M.D. [address] [place] [phone] 04/13/2023 10:10 AM COMPRESSOR HOUSE OPERATOR Appointment Department of Laboratory Medicine in [address] [place] [phone] Mari Noguera M.D. [address] [place] [phone] 04/14/2023 9:00 AM COMPRESSOR HOUSE OPERATOR Infusion Department of Infusion Therapy in [place] [address] [place] [phone] Mari Noguera M.D. [address] [place] [phone] documented as of this encounter Visit Diagnoses Not on filedocumented in this encounter Care Teams Basket Mender Relationship Specialty Start Date End Date Elsewhere, Pcp PCP - General Internal Medicine 04/01/22 documented as of this encounter
--- OUTSIDE RECORDS SUMMARY | 2023-03-21 10:43 | XMS_ITS | Encounter Summary ---
Author Name Unknown Organization [facility] Address [address] [place] [address] Care Team Providers Care Sr. Manager Marketing Name Role Phone Elsewhere, Pcp Primary Care Provider Unavailabl e Reason for Referral * Outpatient (Routine) - Closed Specialty Diagnoses / Procedures Referred By Guillermina zamora Referred To Contact Oncology Mari Noguera M.D. [address] [place] [address] [facility] Region Referral ID Status Reason Start Date Expiration Date Visits Re quested Visits Authorized [id number] Closed 03/23/2022 03/22/2025 1 1 ING MACHINE MECHANIC Encounter Details Date Type Department Care Team (Late st Contact Info) Description 03/23/2022 Orders Only Department of Oncology in [place], [place] [address] [place] [address] Anna oRsa R.N. [address] [place] [address] Social History Tobacco Use Types Packs/Day Years [...] 4 11/18/2021 [facility] of Occupat ional Health - Occupational [...] st Contact Info) Description 03/22/2023 7:30 AM COPYING MACHINE MECHANIC Appointment Department of Laboratory Medicine and Pathology, [facility] in [place], [place] [address] [place] [address] Mari Noguera M.D. [address] [place] [phone] 03/22/2023 8:45 AM COPYING MACHINE MECHANIC Hospital Encounter Outpatient Procedure Center in [place], [place] [address] [place] [address] Mari Noguera M.D. [address] [place] [phone] 03/31/2023 10:10 AM COPYING MACHINE MECHANIC Appointment Department of Laboratory Medicine in [address] [phone] Mari Noguera M.D. [address] [place] [phone] 04/04/2023 3:20 PM COPYING MACHINE MECHANIC Office Visit Department of Oncology in [address] [phone] Mari Noguera M.D. [address] [place] [phone] 04/04/2023 3:45 PM COPYING MACHINE MECHANIC Infusion Department of Infusion Therapy in [address] [phone] Mari Noguera M.D. [address] [place] [phone] 04/13/2023 10:10 AM COPYING MACHINE MECHANIC Appointment Department of Laboratory Medicine in [address] [phone] Mari Noguera M.D. [address] [place] [phone] 04/14/2023 9:00 AM COPYING MACHINE MECHANIC Infusion Department of Infusion Therapy in [place], [place] [address] [place] [phone] Mari Noguera M.D. [address] [place] [phone] Scheduled Referrals Name Type Priority Associated Diagnoses Orde r Schedule Oncology nurse visit (clinic) Outpatient Referral Routine Expected: 04/05/2022, Expires: 06/22/2023 documented as of this encounter Visit Diagnoses Not on filedocumented in this encounter Additional Health Concerns Infection Onset Date Last Indicated Resolved Time COVID19 03/19/2022 03/19/2022 04/08/2022 5:08 AM COPYING MACHINE MECHANIC documented as of this encounter Care Teams Sr. Manager Marketing Relationship Specialty Start Date End Date Elsewhere, Pcp PCP - General Internal Medicine 04/01/22 documented as of this encounter
--- OUTSIDE RECORDS SUMMARY | 2023-03-21 10:43 | XMS_ITS | Encounter Summary ---
Author Name Unknown Organization [facility] Address [address] [place] [address] Care Team Providers Care Assistant Store Manager Name Role Phone Elsewhere, Pcp Primary [...] 17 total visits Mari Noguera M.D. [address] [place] [address] [facility] Region Referral ID Status Reason Start Date Expiration Date V isits Requested Visits Authorized [id number] Authorized 05/28/2021 02/27/2024 31 31 Encounter Details Date Type Department Care Team (Latest Contact Info) Description 04/08/2022 7:51 AM STATIONS SUPERINTENDENT - 04/08/2022 11:59 PM STATIONS SUPERINTENDENT Hospital Encounter Department of Laboratory Medicine in [place], [place] [address] [place] [phone] Mari Noguera M.D. [address] [place] [address] Multiple Myeloma Not Having Achieved [...] st Contact Info) Description 03/22/2023 7:30 AM STATIONS SUPERINTENDENT Appointment Department of Laboratory Medicine and Pathology, [facility] in [place], [place] [address] [place] [address] Mari Noguera M.D. [address] [place] [phone] 03/22/2023 8:45 AM STATIONS SUPERINTENDENT Hospital Encounter Outpatient Procedure Center in [place], [place] [address] [place] [address] Mari Noguera M.D. [address] [place] [phone] 03/31/2023 10:10 AM STATIONS SUPERINTENDENT Appointment Department of Laboratory Medicine in [address] [phone] Mari Noguera M.D. [address] [place] [phone] 04/04/2023 3:20 PM STATIONS SUPERINTENDENT Office Visit Department of Oncology in [address] [place] [address] Mari Noguera M.D. [address] [place] [phone] 04/04/2023 3:45 PM STATIONS SUPERINTENDENT Infusion Department of Infusion Therapy in [address] [phone] Mari Noguera M.D. [address] [place] [phone] 04/13/2023 10:10 AM STATIONS SUPERINTENDENT Appointment Department of Laboratory Medicine in [place] [address] [place] [address] Mari Noguera M.D. [address] [place] [phone] 04/14/2023 9:00 AM STATIONS SUPERINTENDENT Infusion Department of Infusion Therapy in [address] [phone] Mari Noguera M.D. [address] [place] [phone] documented as of this encounter Procedures Procedure Name Priority Date/Time Associated Diagnosis Comments COMPREHENSIVE METABOLIC PANEL, S/P Routine 04/08/2022 8:06 AM STATIONS SUPERINTENDENT Multiple Myeloma Not Having Achieved Remission (HCC) CBC WITH DIFFERENTIAL, B Routine 04/08/2022 8:05 AM STATIONS SUPERINTENDENT Multiple Myeloma Not Having Achieved Remission (HCC) documented in this encounter Results * Comprehensive Metabolic Panel (04/08/2022 8:06 AM STATIONS SUPERINTENDENT) Potassium, P 4.2 3.6 - 5.2 mmol/L 04/08/2022 8:47 AM STATIONS SUPERINTENDENT RDWG Sodium, P 139 135 - 145 mmol/L 04/08/2022 8:47 AM STATIONS SUPERINTENDENT R[facility] Chloride, P 99 98 - 107 mmol/L 04/08/2022 8:47 AM STATIONS SUPERINTENDENT RDWG Bicarbonate, P 29 22 - 29 mmol/L 04/08/2022 8:47 AM STATIONS SUPERINTENDENT RDW[facility] Anion Gap, P 11 7 - 15 04/08/2022 8:47 AM STATIONS SUPERINTENDENT RDW[facility] BUN (Blood Urea Nitrogen), P 20 6 - 21 mg/dL 04/08/2022 8:47 AM STATIONS SUPERINTENDENT RDWG Creatinine 0.93 0.59 - 1.04 mg/dL 04/08/2022 8:47 AM STATIONS SUPERINTENDENT RDWG Estimated GFR (eGFR) 64 >=60 mL/min/BS A 04/08/2022 8:47 AM STATIONS SUPERINTENDENT RDWG Comment: Estimated GFR calculated using the 2020 CKD_EPI creatinine equation. Calcium, Total, P 9.8 8.8 - 10.2 mg/dL 04/08/2022 8:47 AM STATIONS SUPERINTENDENT RDWG Glucose, P 108 70 - 140 mg/dL 04/08/2022 8:47 AM STATIONS SUPERINTENDENT RDW[facility] Protein, Total, P 6.8 6.3 - 7.9 g/dL 04/08/2022 8:47 AM STATIONS SUPERINTENDENT RDWG Albumin, P 4.3 3.5 - 5.0 g/dL 04/08/2022 8:47 AM STATIONS SUPERINTENDENT RDWG Aspartate Aminotransferase (AST), P 19 8 - 43 U/L 04/08/2022 8:47 AM STATIONS SUPERINTENDENT RDWG Alkaline Phosphatase, P 78 35 - 104 U/L 04/08/2022 8:47 AM STATIONS SUPERINTENDENT RDWG Alanine Aminotransferase (ALT), P 19 7 - 45 U/L 04/08/2022 8:47 AM STATIONS SUPERINTENDENT RDWG Bilirubin, Total, P 0.3 <=1.2 mg/dL 04/08/2022 8:47 AM STATIONS SUPERINTENDENT RDWG Blood (Blood, Venous) 04/08/2022 8:06 AM STATIONS SUPERINTENDENT 04/08/2022 8:13 AM STATIONS SUPERINTENDENT Mari Noguera M.D. LAB BLOOD ADD-ON [facility] [address] [place] [address], [facility] RDWG [facility] in [place] [address] [place] [address] * CBC with Differential, Blood (04/08/2022 8:05 AM STATIONS SUPERINTENDENT) Hemoglobin 12.7 11.6 - 15.0 g/dL 04/08/2022 8:21 AM STATIONS SUPERINTENDENT RDWG Hematocrit 40.7 35.5 - 44.9 % 04/08/2022 8:21 AM STATIONS SUPERINTENDENT RDWG Erythrocytes 4.23 3.92 - 5.13 x10(12)/L 04/08/2022 8:21 AM STATIONS SUPERINTENDENT RDW[facility] MCV 96.2 78.2 - 97.9 fL 04/08/2022 8:21 AM STATIONS SUPERINTENDENT RDWG RBC Distrib Width 13.7 12.2 - 16.1 % 04/08/2022 8:21 AM STATIONS SUPERINTENDENT RDWG Platelet Count 181 157 - 371 x10(9)/L 04/08/2022 8:21 AM STATIONS SUPERINTENDENT RDWG Leukocytes 7.8 3.4 - 9.6 x10(9)/L 04/08/2022 8:21 AM STATIONS SUPERINTENDENT RDWG Neutrophils 5.77 1.56 - 6.45 x10(9)/L 04/08/2022 8:21 AM STATIONS SUPERINTENDENT RDWG Lymphocytes 1.23 0.95 - 3.07 x10(9)/L 04/08/2022 8:21 AM STATIONS SUPERINTENDENT RDWG Monocytes 0.66 0.26 - 0.81 x10(9)/L 04/08/2022 8:21 AM STATIONS SUPERINTENDENT RDWG Eosinophils 0.14 0.03 - 0.48 x10(9)/L 04/08/2022 8:21 AM STATIONS SUPERINTENDENT RDWG Basophils 0.03 0.01 - 0.08 x10(9)/L 04/08/2022 8:21 AM STATIONS SUPERINTENDENT RDWG Blood (Blood, Venous) 04/08/2022 8:05 AM STATIONS SUPERINTENDENT 04/08/2022 8:17 AM STATIONS SUPERINTENDENT Mari Noguera M.D. LAB BLOOD ADD-ON [facility] 701 [facility] [place] [address], [facility] RDWG [facility] [place] [address] [place] [address] documented in this encounter Visit Diagnoses Diagnosis Multiple Myeloma Not Having Achieved Remission (HCC) documented in this encounter Care Teams Assistant Store Manager Relationship Specialty Start Date End Date Elsewhere, Pcp PCP - General Internal Medicine 04/01/22 documented as of this encounter
--- OUTSIDE RECORDS SUMMARY | 2023-03-21 10:43 | XMS_ITS | Encounter Summary ---
Author Name Unknown Organization [facility] Address [address] [place] [address] Care Team Providers Care Raker Buffing Wheel Name Role Phone Unavailable Primary Care Provider Unavailabl e Reason for Visit * Outpatient (Routine) - Authorized Specialty Diagnoses / Procedures Referred By Guillermina zamora Referred To Contact Video Medicine Diagnoses COVID-19 Infection Consuelo Landa APRN, C.N.P., D.N.P. [address] [place] [address] [facility] Region Referral ID Status Reason Start Date Expiration Date V isits Requested Visits Authorized [id number] Authorized 03/25/2022 03/25/2023 1 1 Encounter Details Date Type Department Care Team (Late st Contact Info) Description 03/25/2022 1:00 PM PLASTIC BOAT BUFFER Telemedicine Department of Family Medicine, [address] in [place], [place] [address] [place] [address] Consuelo Landa APRN, C.N.P., D.N.P. [address] [place] [phone] COVID-19 Infection Social History Tobacco [...] week 06/11/2021 How often do you attend [facility]? 1 to 4 times [...] COVID-19. The Covid-19 Infection flag in the [place] Chart is accurately reflecting COVID- 19 status. [facility], in collaboration with the [place] Department of [facility], is currently able to offer Paxlovid or Molnupiravir to symptomatic patients who have symptoms < or =5 days respectively and aCAST >=1. Remdesivir is available for patients at high risk of progression who are unable to take Paxlovid. COVID Convalescent Plasma is available for patients with B-Cell depleting diagnosis or on B-Cell depleting medications. Based on the information available to me in [facility], the patient is symptomatic and on day=6 and has aMASS=12. The patient is immune compromised. Assessment and Plan Patient was identified as immunosuppressed and b cell depleted based on diagnosis of Multiple Myeloma. [facility] for this group- Paxlovid and convalescent plasma. The patient received COVID convalescent plasma on date 03-23-22. Today, the patient reports feeling much improved They feel they would like to hold off on receiving anymore treatments at this time. They have our number [phone] if their symptoms change or they feel as they would benefit from another unit of Plasma. Total visit time 5 minutes Consuelo Landa APRN, C.N.P., D.N.P. [place] COVID Care Team [facility] TIC BOAT BUFFER documented in this encounter Plan of Treatment Upcoming Encounters Date Type Department Care Team (Late st Contact Info) Description 03/22/2023 7:30 AM PLASTIC BOAT BUFFER Appointment Department of Laboratory Medicine and Pathology, [facility], in [place], [place] [address] [place] [address] Mari Noguera M.D. [address] [place], [place] [address] [phone] 03/22/2023 8:45 AM PLASTIC BOAT BUFFER Hospital Encounter Outpatient Procedure Center in [place], [place] [address] [place] [address] Mari Noguera M.D. [address] [place] [phone] 03/31/2023 10:10 AM PLASTIC BOAT BUFFER Appointment Department of Laboratory Medicine in [place], [place] [address] [place] [address] Mari Noguera M.D. [address] [place] [phone] 04/04/2023 3:20 PM PLASTIC BOAT BUFFER Office Visit Department of Oncology in [address] [address] Mari Noguera M.D. [address] [place] [phone] 04/04/2023 3:45 PM PLASTIC BOAT BUFFER Infusion Department of Infusion Therapy in [address] [address] Mari Noguera M.D. [address] [place] [phone] 04/13/2023 10:10 AM PLASTIC BOAT BUFFER Appointment Department of Laboratory Medicine in [place], [place] [address] [place] [address] Mari Noguera M.D. [address] [place] [phone] 04/14/2023 9:00 AM PLASTIC BOAT BUFFER Infusion Department of Infusion Therapy in [address] [phone] Mari Noguera M.D. [address] [place] [phone] documented as of this encounter Visit Diagnoses Diagnosis COVID-19 Infection documented in this encounter Additional Health Concerns Infection Onset Date Last Indicated Resolved Time COVID19 03/19/2022 03/19/2022 04/08/2022 5:08 AM PLASTIC BOAT BUFFER documented as of this encounter
--- OUTSIDE RECORDS SUMMARY | 2023-03-21 10:43 | XMS_ITS | Encounter Summary ---
Author Name Unknown Organization [facility] Address [address] [place] [address] Care Team Providers Care Olive Knocker Name Role Phone Unavailable Primary Care Provider Unavailabl e Reason for Visit * Outpatient (Routine) - Authorized Specialty Diagnoses / Procedures Referred By Guillermina zamora Referred To Contact Video Medicine Diagnoses COVID-19 Infection Evelyn Rivera D.O. [address] [place] [address] [facility] Referral ID Status Reason Start Date Expiration Date V isits Requested Visits Authorized [id number] Authorized 03/23/2022 03/23/2023 1 1 Encounter Details Date Type Department Care Team (Late st Contact Info) Description 03/25/2022 10:00 AM IMPORT/EXPORT ANALYST Telemedicine Department of Family Medicine, [address] [phone] Evelyn Rivera D.OAbraham [address] [place] [address] Consuelo Landa APRN, C.N.P., D.N.P. [address] [place] [phone] COVID-19 Infection Social History Tobacco Use Types [...] Answer Date Recorded PHQ-2 Score 4 11/18/2021 [facility] - [facility]ational [facility] Questionnaire Answer [...] encounter Progress Notes * Consuelo Landa APRN, C.NWendy., D.N.P. - 03/25/2022 10:00 AM CST Patient no showed for her CPP FU visit this morning. No charge. RT/EXPORT ANALYST documented in this encounter Plan of Treatment Upcoming Encounters Date Type Department Care Team (Late st Contact Info) Description 03/22/2023 7:30 AM IMPORT/EXPORT ANALYST Appointment Department of Laboratory Medicine and Pathology, [facility] in [place], [place] [address] [place] [address] Mari Noguera M.D. [address] [place] [phone] 03/22/2023 8:45 AM IMPORT/EXPORT ANALYST Hospital Encounter Outpatient Procedure Center in [place], [place] [address] [place] [address] Mari Noguera M.D. [address] [place] [phone] 03/31/2023 10:10 AM IMPORT/EXPORT ANALYST Appointment Department of Laboratory Medicine in [place], [place] [address] [place] [phone] Mari Noguera M.D. [address] [place] [phone] 04/04/2023 3:20 PM IMPORT/EXPORT ANALYST Office Visit Department of Oncology in [place] [address] Mari Noguera M.D. [address] [place] [phone] 04/04/2023 3:45 PM IMPORT/EXPORT ANALYST Infusion Department of Infusion Therapy in [address] [address] Mari Noguera M.D. [address] [place] [phone] 04/13/2023 10:10 AM IMPORT/EXPORT ANALYST Appointment Department of Laboratory Medicine in [address] [place] [address] Mari Noguera M.D. [address] [place] [phone] 04/14/2023 9:00 AM IMPORT/EXPORT ANALYST Infusion Department of Infusion Therapy in [address] [phone] Mari Noguera M.D. [address] [place] [phone] documented as of this encounter Visit Diagnoses Diagnosis COVID-19 Infection documented in this encounter Additional Health Concerns Infection Onset Date Last Indicated Resolved Time COVID19 03/19/2022 03/19/2022 04/08/2022 5:08 AM IMPORT/EXPORT ANALYST documented as of this encounter
--- OUTSIDE RECORDS SUMMARY | 2023-03-21 10:43 | XMS_ITS | Encounter Summary ---
Author Name Unknown Organization [facility] Address [address] [place] [address] Care Team Providers Care Healthcare Consultant Name Role Phone Elsewhere, Pcp Primary [...] 17 total visits Mari Noguera M.D. [address] [place] [address] [facility] Region Referral ID Status Reason Start Date Expiration Date V isits Requested Visits Authorized [id number] Authorized 05/28/2021 02/27/2024 31 31 Encounter Details Date Type Department Care Team (Late st Contact Info) Description 04/08/2022 8:30 AM RADIO OPERATOR GROUND Infusion Department of Infusion Therapy in [place], [place] [address] [place] [phone] Mari Noguera M.D. [address] [place] [phone] Multiple Myeloma Not Having Achieved Remission [...] do you attend [facility]? 1 to 4 times [...] st Contact Info) Description 03/22/2023 7:30 AM RADIO OPERATOR GROUND Appointment Department of Laboratory Medicine and Pathology, [facility], in [place], [place] [address] [place] [address] Mari Noguera M.D. [address] [place] [phone] 03/22/2023 8:45 AM RADIO OPERATOR GROUND Hospital Encounter Outpatient Procedure Center in [place], [place] [address] [place] [address] Mari Noguera M.D. [address] [place] [phone] 03/31/2023 10:10 AM RADIO OPERATOR GROUND Appointment Department of Laboratory Medicine in [address] [place] [address] [address] Mari Noguera M.D. [address] [place] [phone] 04/04/2023 3:20 PM RADIO OPERATOR GROUND Office Visit Department of Oncology in [address] [phone] Mari Noguera M.D. [address] [place] [phone] 04/04/2023 3:45 PM RADIO OPERATOR GROUND Infusion Department of Infusion Therapy in [address] [place] [phone] Mari Noguera M.D. [address] [place] [phone] 04/13/2023 10:10 AM RADIO OPERATOR GROUND Appointment Department of Laboratory Medicine in [address] [place] [address] Mari Noguera M.D. [address] [place] [phone] 04/14/2023 9:00 AM RADIO OPERATOR GROUND Infusion Department of Infusion Therapy in [place], [place] [address] [place] [phone] Mari Noguera M.D. [address] [place] [phone] documented as of this encounter Visit [...] Rotate injection site. Given 04/08/2022 9:41 AM RADIO OPERATOR GROUND 2.5 mg Right Upper Abdomen documented in this encounter Care Teams Healthcare Consultant Relationship Specialty Start Date End Date Elsewhere, Pcp PCP - General Internal Medicine 04/01/22 documented as of this encounter
--- OUTSIDE RECORDS SUMMARY | 2023-03-21 10:43 | XMS_ITS | Encounter Summary ---
Author Name Unknown Organization [facility] Address [address] [place] [address] Care Team Providers Care Wharf Helper Name Role Phone Unavailable Primary Care Provider Unavailabl e Reason for Visit * Reason Onset Date Comments COVID-19 Remote Patient Monitoring 03/23/2022 Intake Assessment 03/23/2022 Encounter Details Date Type Department Care Team (Late st Contact Info) Description 03/23/2022 Remote Monitoring Remote Patient Monitoring [facility] [address] [place] [address] Rosmery Dailey, R.N. COVID-19 Remote Patient Monitoring; [...] 4 11/18/2021 [facility] Answer Date [...] with area code ([id number] or caller ID '[place]' or [id number] or caller ID '[place]') from [employer] if they don't test vital signs, importance [...] while on program, Call Remote Patient Monitoring ([phone]) with questions or concerns, When to seek emergency care, and Please keep Ganos phone close to you, turned on at [...] healthcare team for new/worsening respiratory infection symptoms. ER FEEDER documented in this encounter Plan of Treatment Upcoming Encounters Date Type Department Care Team (Late st Contact Info) Description 03/22/2023 7:30 AM FILLER FEEDER Appointment Department of Laboratory Medicine and Pathology, [facility] in [place], [place] [address] [place] [phone] Mari Noguera M.D. [address] [place] [phone] 03/22/2023 8:45 AM FILLER FEEDER Hospital Encounter Outpatient Procedure Center in [place], [place] [address] [place] [phone] Mari Noguera M.D. [address] [place] [phone] 03/31/2023 10:10 AM FILLER FEEDER Appointment Department of Laboratory Medicine in [address] [address] Mari Noguera M.D. [address] [place] [phone] 04/04/2023 3:20 PM FILLER FEEDER Office Visit Department of Oncology in [address] [phone] Mari Noguera M.D. [address] [place] [phone] 04/04/2023 3:45 PM FILLER FEEDER Infusion Department of Infusion Therapy in [place] [address] [place] [phone] Mari Noguera M.D. [address] [place] [phone] 04/13/2023 10:10 AM FILLER FEEDER Appointment Department of Laboratory Medicine in [address] [phone] Mari Noguera M.D. [address] [place] [phone] 04/14/2023 9:00 AM FILLER FEEDER Infusion Department of Infusion Therapy in [place] [address] [place] [phone] Mari Noguera M.D. [address] [place] [phone] documented as of this encounter Visit Diagnoses Not on filedocumented in this encounter Additional Health Concerns Infection Onset Date Last Indicated Resolved Time COVID19 03/19/2022 03/19/2022 04/08/2022 5:08 AM FILLER FEEDER documented as of this encounter
--- OUTSIDE RECORDS SUMMARY | 2023-03-21 10:43 | XMS_ITS | Encounter Summary ---
Author Name Unknown Organization [facility] Address [address] [place] [address] Care Team Providers Care Band Salvager Name Role Phone Elsewhere, Pcp Primary Care Provider Unavailabl e Encounter Details Date Type Department Care Team (Late st Contact Info) Description 03/23/2022 Orders Only Department of Oncology in [place], [place] [address] [place] [phone] Mari Noguera M.D. [address] [place] [address] Multiple Myeloma Not Having Achieved [...] week 06/11/2021 How often do you attend [facility] or oriental orthodox services? 1 to 4 [...] Answer Date Recorded PHQ-2 Score 4 11/18/2021 [facility] - Occupational Stress Questionnaire Answer Date [...] st Contact Info) Description 03/22/2023 7:30 AM CERNER ANALYST Appointment Department of Laboratory Medicine and Pathology, [facility], in [place], [place] [address] [place] [address] Mari Noguera M.D. [address] [place] [address] 03/22/2023 8:45 AM CERNER ANALYST Hospital Encounter Outpatient Procedure Center in [place], [place] [address] [place] [address] Mari Noguera M.D. [facility] [place] [phone] 03/31/2023 10:10 AM CERNER ANALYST Appointment Department of Laboratory Medicine in [address] [place] [address] Mari Noguera M.D. [address] [place] [phone] 04/04/2023 3:20 PM CERNER ANALYST Office Visit Department of Oncology in [address] [phone] Mari Noguera M.D. [address] [place] [phone] 04/04/2023 3:45 PM CERNER ANALYST Infusion Department of Infusion Therapy in [address] [phone] Mari Noguera M.D. [address] [place] [phone] 04/13/2023 10:10 AM CERNER ANALYST Appointment Department of Laboratory Medicine in [address] [address] Mari Noguera M.D. [facility] [place] [address] 04/14/2023 9:00 AM CERNER ANALYST Infusion Department of Infusion Therapy in [address] [phone] Mari Noguera M.D. [address] [place] [address], [place] [phone] documented as of this encounter Results * (ABNORMAL) CBC, Chemotherapy, No Alerts (04/22/2022 12:59 PM CERNER ANALYST) Pathologist [facility] Hemoglobin 13.0 11.6 - 15.0 g/dL 04/22/2022 1:20 PM CERNER ANALYST [facility] Platelet Count 206 157 - 371 x10(9)/L 04/22/2022 1:20 PM CERNER ANALYST [facility] Leukocytes 9.3 3.4 - 9.6 x10(9)/L 04/22/2022 1:20 PM CERNER ANALYST [facility] Neutrophils 7.14(H) 1.56 - 6.45 x10(9)/L 04/22/2022 1:20 PM CERNER ANALYST [facility] Blood (Blood, Venous) 04/22/2022 12:59 PM CERNER ANALYST 04/22/2022 1:01 PM CERNER ANALYST Mari Noguera M.D. LAB BLOOD ADD-ON [facility] [address] [place] [address], [facility] in [address] [phone] * Comprehensive Metabolic Panel (04/08/2022 8:06 AM CERNER ANALYST) Pathologist [facility] Potassium, P 4.2 3.6 - 5.2 mmol/L 04/08/2022 8:47 AM CERNER ANALYST [facility] Sodium, P 139 135 - 145 mmol/L 04/08/2022 8:47 AM CERNER ANALYST [facility] Chloride, P 99 98 - 107 mmol/L 04/08/2022 8:47 AM CERNER ANALYST [facility] Bicarbonate, P 29 22 - 29 mmol/L 04/08/2022 8:47 AM CERNER ANALYST [facility] Anion Gap, P 11 7 - 15 04/08/2022 8:47 AM CERNER ANALYST [facility] BUN (Blood Urea Nitrogen), P 20 6 - 21 mg/dL 04/08/2022 8:47 AM CERNER ANALYST [facility] Creatinine 0.93 0.59 - 1.04 mg/dL 04/08/2022 8:47 AM CERNER ANALYST [facility] Estimated GFR (eGFR) 64 >=60 mL/min/BS A 04/08/2022 8:47 AM CERNER ANALYST [facility] Comment: Estimated GFR calculated using the 2020 CKD_EPI creatinine equation. Calcium, Total, P 9.8 8.8 - 10.2 mg/dL 04/08/2022 8:47 AM CERNER ANALYST [facility] Glucose, P 108 70 - 140 mg/dL 04/08/2022 8:47 AM CERNER ANALYST [facility] Protein, Total, P 6.8 6.3 - 7.9 g/dL 04/08/2022 8:47 AM CERNER ANALYST [facility] Albumin, P 4.3 3.5 - 5.0 g/dL 04/08/2022 8:47 AM CERNER ANALYST [facility] Aspartate Aminotransferase (AST), P 19 8 - 43 U/L 04/08/2022 8:47 AM CERNER ANALYST [facility] Alkaline Phosphatase, P 78 35 - 104 U/L 04/08/2022 8:47 AM CERNER ANALYST [facility] Alanine Aminotransferase (ALT), P 19 7 - 45 U/L 04/08/2022 8:47 AM CERNER ANALYST [facility] Bilirubin, Total, P 0.3 <=1.2 mg/dL 04/08/2022 8:47 AM CERNER ANALYST [facility] Blood (Blood, Venous) 04/08/2022 8:06 AM CERNER ANALYST 04/08/2022 8:13 AM CERNER ANALYST Mari Noguera M.D. LAB BLOOD ADD-ON [facility] [address] [facility] [address], [facility] in [place] [address] [place] [address] * CBC with Differential, Blood (04/08/2022 8:05 AM CERNER ANALYST) Hemoglobin 12.7 11.6 - 15.0 g/dL 04/08/2022 8:21 AM CERNER ANALYST [facility] Hematocrit 40.7 35.5 - 44.9 % 04/08/2022 8:21 AM CERNER ANALYST [facility] Erythrocytes 4.23 3.92 - 5.13 x10(12)/L 04/08/2022 8:21 AM CERNER ANALYST [facility] MCV 96.2 78.2 - 97.9 fL 04/08/2022 8:21 AM CERNER ANALYST [facility] RBC Distrib Width 13.7 12.2 - 16.1 % 04/08/2022 8:21 AM CERNER ANALYST [facility] Platelet Count 181 157 - 371 x10(9)/L 04/08/2022 8:21 AM CERNER ANALYST [facility] Leukocytes 7.8 3.4 - 9.6 x10(9)/L 04/08/2022 8:21 AM CERNER ANALYST [facility] Neutrophils 5.77 1.56 - 6.45 x10(9)/L 04/08/2022 8:21 AM CERNER ANALYST [facility] Lymphocytes 1.23 0.95 - 3.07 x10(9)/L 04/08/2022 8:21 AM CERNER ANALYST [facility] Monocytes 0.66 0.26 - 0.81 x10(9)/L 04/08/2022 8:21 AM CERNER ANALYST [facility] Eosinophils 0.14 0.03 - 0.48 x10(9)/L 04/08/2022 8:21 AM CERNER ANALYST [facility] Basophils 0.03 0.01 - 0.08 x10(9)/L 04/08/2022 8:21 AM CERNER ANALYST [facility] Blood (Blood, Venous) 04/08/2022 8:05 AM CERNER ANALYST 04/08/2022 8:17 AM CERNER ANALYST Mari Noguera M.D. LAB BLOOD ADD-ON [facility] [address] [place] [address], [facility] in [place] [address] [place] [address] documented in this encounter Visit Diagnoses Diagnosis Multiple Myeloma Not Having Achieved Remission (HCC)- Primary documented in this encounter Additional Health Concerns Infection Onset Date Last Indicated Resolved Time COVID19 03/19/2022 03/19/2022 04/08/2022 5:08 AM CERNER ANALYST documented as of this encounter Care Teams Band Salvager Relationship Specialty Start Date End Date Elsewhere, Pcp PCP - General Internal Medicine 04/01/22 documented as of this encounter
--- OUTSIDE RECORDS SUMMARY | 2023-03-21 10:44 | XMS_ITS | Encounter Summary ---
Author Name Unknown Organization [facility] Address [address] [place] [address] Care Team Providers Care Long Distance Operator Name Role Phone Unavailable Primary Care Provider Unavailabl e Encounter Details Date Type Department Care Team (Late st Contact Info) Description 03/23/2022 Episode Changes Remote Patient Monitoring [facility] [address] [place] [address] Pratima Kline Social History Tobacco Use Types [...] often do you attend chur ch or bahai services? 1 to 4 times [...] Score 4 11/18/2021 [facility] - Occupational [...] st Contact Info) Description 03/22/2023 7:30 AM CHECK TOTALER Appointment Department of Laboratory Medicine and Pathology, [facility], in [place], [place] [address] [place] [address] Mari Noguera M.D. [address] [place] [phone] 03/22/2023 8:45 AM CHECK TOTALER Hospital Encounter Outpatient Procedure Center in [place], [place] [address] [place] [phone] Mari Noguera M.[place]. [place] [phone] 03/31/2023 10:10 AM CHECK TOTALER Appointment Department of Laboratory Medicine in [address] [address] Mari Noguera [place]. [place] [phone] 04/04/2023 3:20 PM CHECK TOTALER Office Visit Department of Oncology in [address] [phone] Mari Noguera M.D. [address] [place] [phone] 04/04/2023 3:45 PM CHECK TOTALER Infusion Department of Infusion Therapy in [address] [phone] Mari Noguera M.D. [address] [place] [phone] 04/13/2023 10:10 AM CHECK TOTALER Appointment Department of Laboratory Medicine in [address] [address] Mari Noguera M.D. [address] [place] [phone] 04/14/2023 9:00 AM CHECK TOTALER Infusion Department of Infusion Therapy in [place] [address] [place] [phone] Mari Noguera M.D. [address] [place] [phone] documented as of this encounter Visit Diagnoses Not on filedocumented in this encounter Additional Health Concerns Infection Onset Date Last Indicated Resolved Time COVID19 03/19/2022 03/19/2022 04/08/2022 5:08 AM CHECK TOTALER documented as of this encounter
--- OUTSIDE RECORDS SUMMARY | 2023-03-21 10:44 | XMS_ITS | Encounter Summary ---
Author Name Unknown Organization [facility] Address [address] [place] [address] Care Team Providers Care Outbound Call Center Representative Name Role Phone Unavailable Primary Care Provider Unavailabl e Reason for Referral * Outpatient (Routine) - Authorized Specialty Diagnoses / Procedures Referred By Guillermina t Referred To Contact Video Medicine Diagnoses COVID-19 Infection Consuelo Landa APRN, C.N.P., D.N.P. [address] [place] [address] [facility] Region Referral ID Status Reason Start Date Expiration Date V isits Requested Visits Authorized [id number] Authorized 03/25/2022 03/25/2023 1 1 LATION TECHNICIAN Encounter Details Date Type Department Care Team (Late st Contact Info) Description 03/23/2022 12:00 PM SIMULATION TECHNICIAN Infusion Department of Infusion Therapy in [place], [place] [address] [place] [address] Evelyn Rivera, YaryOAbraham [address] [place] [phone] COVID-19 Infection (Primary Dx) Social History Tobacco [...] How often do you attend chur or restoration services? 1 to 4 times [...] Date Recorded PHQ-2 Score 4 11/18/2021 [facility] - Occupational Stress [...] Comments Blood Pressure 162/75 03/23/2022 2:46 PM SIMULATION TECHNICIAN Pulse 56 03/23/2022 2:46 PM SIMULATION TECHNICIAN Temperature 36.7 ??C (98.1 ??F) 03/23/2022 2:46 PM CS T Respiratory Rate 16 03/23/2022 1:44 PM SIMULATION TECHNICIAN Oxygen Saturation 97% 03/23/2022 2:46 PM SIMULATION TECHNICIAN Inhaled Oxygen Concentration - - Weight - [...] was advised to call back to this [facility] infusion number [phone] or [facility] if not feeling any relief. 48 hour virtual follow up was scheduled for patient . Patient verbalized understanding, with no further questions. LATION TECHNICIAN documented in this encounter Miscellaneous Notes * Addendum Note - Jane Arellano R.N. - 03/23/2022 12:00 PM CSTAddended by: JANE ARELLANO on: 03/25/2022 10:54 AM Modules accepted: Orders LATION TECHNICIAN documented in this encounter Plan of Treatment Upcoming Encounters Date Type Department Care Team (Late st Contact Info) Description 03/22/2023 7:30 AM SIMULATION TECHNICIAN Appointment Department of Laboratory Medicine and Pathology, [facility], in [place], [place] [address] [place] [address] Mari Noguera M.D. [address] [place] [phone] 03/22/2023 8:45 AM SIMULATION TECHNICIAN Hospital Encounter Outpatient Procedure Center in [place], [place] [address] [place] [address] Mari Noguera M.D. [address] [place] [phone] 03/31/2023 10:10 AM SIMULATION TECHNICIAN Appointment Department of Laboratory Medicine in [place], [place] [address] [place] [address] Mari Noguera M.D. [address] [place] [phone] 04/04/2023 3:20 PM SIMULATION TECHNICIAN Office Visit Department of Oncology in [address] [phone] Mari Noguera M.D. [address] [place] [phone] 04/04/2023 3:45 PM SIMULATION TECHNICIAN Infusion Department of Infusion Therapy in [address] [phone] Mari Noguera M.D. [address] [place] [phone] 04/13/2023 10:10 AM SIMULATION TECHNICIAN Appointment Department of Laboratory Medicine in [place], [place] [address] [place] [phone] Mari Noguera M.D. [address] [place] [phone] 04/14/2023 9:00 AM SIMULATION TECHNICIAN Infusion Department of Infusion Therapy in [address] [phone] Mari Noguera M.D. [address] [place] [phone] Pending Results Name Type Priority Associated Diagnoses Date /Time Prepare Fresh Frozen Plasma : 1 Units Blood Bank Routine COVID-19 Infection 03/23/2022 12:40 PM SIMULATION TECHNICIAN Scheduled Referrals Name Type Priority Associated Diagnoses Orde r Schedule Video anyplace visit Outpatient Referral Routine COVID-19 Infection Expected: 03/27/2022, Expires: 04/08/2022 documented as of this encounter Procedures Procedure Name Priority Date/Time Associated Diagnosis Comments TRANSFUSE [id number] CONVALESCENT PLASMA Routine 03/23/2022 1:25 PM SIMULATION TECHNICIAN COVID-19 Infection PREPARE FRESH FROZEN PLASMA Routine 03/23/2022 12:40 PM SIMULATION TECHNICIAN COVID-19 Infection documented in this encounter Results * Transfuse Rvzb-CVDC-LfD-2 Convalescent Plasma :Lqvt-EIAQ-MaL-2 Convalescent Plasma; 180 mL/hr (03/23/2022 2:49 PM SIMULATION TECHNICIAN) Evelyn Huber.OAbraham BLOOD TRANSFUSION OR DERABLES * Transfuse Nnuk-KLUD-UwS-2 Convalescent Plasma :Bviy-FLBD-RlC-2 Convalescent Plasma; 180 mL/hr, 1 Units (03/23/2022 2:49 PM SIMULATION TECHNICIAN) Evelyn Rivera D.OAbraham BLOOD TRANSFUSION OR DERABLES documented in this encounter Visit Diagnoses Diagnosis COVID-19 Infection- Primary documented in this encounter Additional Health Concerns Infection Onset Date Last Indicated Resolved Time COVID19 03/19/2022 03/19/2022 04/08/2022 5:08 AM SIMULATION TECHNICIAN documented as of this encounter
--- OUTSIDE RECORDS SUMMARY | 2023-03-21 10:44 | XMS_ITS | Encounter Summary ---
Author Name Unknown Organization [facility] Address [address] [place] [address] Care Team Providers Care Peer Counselor Name Role Phone Unavailable Primary Care Provider Unavailabl e Reason for Visit * Reason Comments Outpatient Infusion Lab draw only Encounter Details Date Type Department Care Team (Late st Contact Info) Description 03/23/2022 11:30 AM WIND TUNNEL ENGINEER Lab Department of Infusion Therapy in [place], [place] [address] [place] [phone] Evelyn Rivera, YaryOAbraham [address] [place] [phone] COVID-19 Infection Social History Tobacco Use Types [...] do you attend [facility] or mandaeism services? 1 to 4 times [...] Answer Date Recorded PHQ-2 Score 4 11/18/2021 [facility]at ional Health [...] Comments Blood Pressure 188/91 03/23/2022 11:29 AM WIND TUNNEL ENGINEER Pulse 66 03/23/2022 11:29 AM WIND TUNNEL ENGINEER Temperature 36.6 ??C (97.9 ??F) 03/23/2022 11:[address] Respiratory Rate 18 03/23/2022 11:29 AM WIND TUNNEL ENGINEER Oxygen Saturation 96% 03/23/2022 11:29 AM WIND TUNNEL ENGINEER Inhaled Oxygen Concentration - - Weight - - Height - - Body Mass Index - - documented in this encounter Plan of Treatment Upcoming Encounters Date Type Department Care Team (Late st Contact Info) Description 03/22/2023 7:30 AM WIND TUNNEL ENGINEER Appointment Department of Laboratory Medicine and Pathology, [facility], in [place], [place] [address] [place] [address] Mari Noguera M.D. [address] [place] [phone] 03/22/2023 8:45 AM WIND TUNNEL ENGINEER Hospital Encounter Outpatient Procedure Center in [place], [place] [address] [place] [address] Mari Noguera M.D. [address] [place] [phone] 03/31/2023 10:10 AM WIND TUNNEL ENGINEER Appointment Department of Laboratory Medicine in [place], [place] [address] [place] [address] Mari Noguera M.D. [address] [place] [phone] 04/04/2023 3:20 PM WIND TUNNEL ENGINEER Office Visit Department of Oncology in [address] [phone] Mari Noguera M.D. [address] [place] [phone] 04/04/2023 3:45 PM WIND TUNNEL ENGINEER Infusion Department of Infusion Therapy in [address] [phone] Mari Noguera M.D. [address] [place] [phone] 04/13/2023 10:10 AM WIND TUNNEL ENGINEER Appointment Department of Laboratory Medicine in [place] [address] [address] [place] [phone] Mari Noguera [place] [phone] 04/14/2023 9:00 AM WIND TUNNEL ENGINEER Infusion Department of Infusion Therapy in [address] [phone] Mari Noguera M.D. [address] [place] [phone] documented as of this encounter Procedures Procedure Name Priority Date/Time Associated Diagnosis Comments ABORH, RBC Routine 03/23/2022 12:01 PM WIND TUNNEL ENGINEER COVID-19 Infection documented in this encounter Results * ABORh, RBC (03/23/2022 12:01 PM WIND TUNNEL ENGINEER) ABO Group A 03/23/2022 12: 38 PM WIND TUNNEL ENGINEER MKTO Rh Type NEG 03/23/2022 12: 38 PM WIND TUNNEL ENGINEER MKTO Blood (Blood, Venous) 03/23/2022 12:01 PM WIND TUNNEL ENGINEER 03/23/2022 12:04 PM WIND TUNNEL ENGINEER Evelyn Rivera D.O. LAB BLOOD BANK TEST ORDERABLES Performing Organization Address City/State/[facility] Co de Phone Number [facility] [address] [place] [address], [facility] MKTO [facility] in [place] [address] [place] [address] documented in this encounter Visit Diagnoses Diagnosis COVID-19 Infection documented in this encounter Additional Health Concerns Infection Onset Date Last Indicated Resolved Time COVID19 03/19/2022 03/19/2022 04/08/2022 5:08 AM WIND TUNNEL ENGINEER documented as of this encounter
--- OUTSIDE RECORDS SUMMARY | 2023-03-21 10:44 | XMS_ITS | Encounter Summary ---
Author Name Unknown Organization [facility] Address [address] [place] [address] Care Team Providers Care Information Technology Professor Name Role Phone Unavailable Primary Care Provider Unavailabl e Reason for Referral * Outpatient (Routine) Specialty Diagnoses / Procedures Referred By Guillermina zamora Referred To Contact Hematology Oncology Mari Noguera M.D. [address] [place] [phone] [facility] Region Referral ID Status Reason Start Date Expiration Date Visits Re quested Visits Authorized NIGHT ASSOCIATE Reason for Visit * Reason Comments Follow-up * Outpatient (Routine) - Closed Specialty Diagnoses / Procedures Referred By Guillermina zamora Referred To Contact Hematology Oncology Mari Noguera M.D. [address] [place] [phone] [facility] Region Referral ID Status Reason Start Date Expiration Date Visits Re quested Visits Authorized [id number] Closed 03/09/2022 03/08/2025 1 1 Encounter Details Date Type Department Care Team (Late st Contact Info) Description 03/18/2022 9:40 AM OVERNIGHT ASSOCIATE Office Visit Department of Oncology in [place], [place] [address] [place] [phone] Noguera, Mari, M.D. [address] [place] [phone] Multiple Myeloma Not Having Achieved Remission (HCC) [...] attend [facility] or temple services? 1 to 4 times [...] PHQ-2 Score 4 11/18/2021 [facility] - Occupational Stress Questionnaire Answer [...] Comments Blood Pressure 137/67 03/18/2022 9:50 AM OVERNIGHT ASSOCIATE Pulse 80 03/18/2022 9:46 AM OVERNIGHT ASSOCIATE Temperature 36.9 ??C (98.4 ??F) 03/18/2022 9:46 AM CS T Respiratory Rate - - Oxygen Saturation 95% 03/18/2022 9:46 AM OVERNIGHT ASSOCIATE Inhaled Oxygen Concentration - - Weight 85.6 kg (188 lb 11.4 oz) 03/18/2022 9:46 AM OVERNIGHT ASSOCIATE Height - - Body Mass Index 35.17 [...] chains: kappa: 8.01 mg/L; lambda: 33.64 mg/L; [place]:Lambda Ratio: 0.24 SPEP: M-spike: 3.26 g/dL Immunofixation: [...] VGPR post ASCT day 0 12/02/2021 ([facility]) #2 Transplant Stem Cell ([facility]) Ms. 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 She met with in [place] to review bone marrow biopsy results performed [...] planning and care coordination Mari Noguera M.D. NIGHT ASSOCIATE documented in this encounter Plan of Treatment Upcoming Encounters Date Type Department Care Team (Late st Contact Info) Description 03/22/2023 7:30 AM OVERNIGHT ASSOCIATE Appointment Department of Laboratory Medicine and Pathology, [facility], in [place], [place] [address] [place] [address] Mari Noguera M.D. [facility] [place] [phone] 03/22/2023 8:45 AM OVERNIGHT ASSOCIATE Hospital Encounter Outpatient Procedure Center in [place], [place] [address] [place] [address] Mari Noguera M.D. [address] [place] [phone] 03/31/2023 10:10 AM OVERNIGHT ASSOCIATE Appointment Department of Laboratory Medicine in [address] [address] Mari Noguera M.D. [address] [place] [phone] 04/04/2023 3:20 PM OVERNIGHT ASSOCIATE Office Visit Department of Oncology in [address] [phone] Mari Noguera M.D. [address] [place] [phone] 04/04/2023 3:45 PM OVERNIGHT ASSOCIATE Infusion Department of Infusion Therapy in [address] [phone] Mari Noguera M.D. [address] [place] [phone] 04/13/2023 10:10 AM OVERNIGHT ASSOCIATE Appointment Department of Laboratory Medicine in [address] [phone] Mari Noguera M.D. [address] [place] [phone] 04/14/2023 9:00 AM OVERNIGHT ASSOCIATE Infusion Department of Infusion Therapy in [place], [place] [phone] Mari Noguera [place] [phone] Scheduled Referrals Name Type Priority Associated Diagnoses Order Schedule Hematology office visit (clinic) [facility] Region; Pre-Chemo Outpatient Referral Routine Multiple Myeloma Not Having Achieved Remission (HCC) Expected: 05/03/2022, Expires: 05/03/2023 documented as of this encounter Results * (ABNORMAL) Comprehensive Metabolic Panel (05/06/2022 1:56 PM OVERNIGHT ASSOCIATE) Potassium, P 4.3 3.6 - 5.2 mmol/L 05/06/2022 2:20 PM OVERNIGHT ASSOCIATE [facility] Sodium, P 140 135 - 145 mmol/L 05/06/2022 2:20 PM OVERNIGHT ASSOCIATE R[facility] Chloride, P 101 98 - 107 mmol/L 05/06/2022 2:20 PM OVERNIGHT ASSOCIATE RDWG Bicarbonate, P 30(H) 22 - 29 mmol/L 05/06/2022 2:20 PM OVERNIGHT ASSOCIATE R[facility] Anion Gap, P 9 7 - 15 05/06/2022 2:20 PM OVERNIGHT ASSOCIATE RDW[facility] BUN (Blood Urea Nitrogen), P 17 6 - 21 mg/dL 05/06/2022 2:20 PM OVERNIGHT ASSOCIATE RDWG Creatinine 0.85 0.59 - 1.04 mg/dL 05/06/2022 2:20 PM OVERNIGHT ASSOCIATE RDWG Estimated GFR (eGFR) 72 >=60 mL/min/BS A 05/06/2022 2:20 PM OVERNIGHT ASSOCIATE RDWG Comment: Estimated GFR calculated using the 2020 CKD_EPI creatinine equation. Calcium, Total, P 10.0 8.8 - 10.2 mg/dL 05/06/2022 2:20 PM OVERNIGHT ASSOCIATE RDWG Glucose, P 87 70 - 140 mg/dL 05/06/2022 2:20 PM OVERNIGHT ASSOCIATE RDW[facility] Protein, Total, P 6.7 6.3 - 7.9 g/dL 05/06/2022 2:20 PM OVERNIGHT ASSOCIATE R[facility] Albumin, P 4.2 3.5 - 5.0 g/dL 05/06/2022 2:20 PM OVERNIGHT ASSOCIATE RDWG Aspartate Aminotransferase (AST), P 20 8 - 43 U/L 05/06/2022 2:20 PM OVERNIGHT ASSOCIATE RDWG Alkaline Phosphatase, P 81 35 - 104 U/L 05/06/2022 2:20 PM OVERNIGHT ASSOCIATE R[facility] Alanine Aminotransferase (ALT), P 15 7 - 45 U/L 05/06/2022 2:20 PM OVERNIGHT ASSOCIATE RDWG Bilirubin, Total, P 0.3 <=1.2 mg/dL 05/06/2022 2:20 PM OVERNIGHT ASSOCIATE RDWG Blood (Blood, Venous) 05/06/2022 1:56 PM OVERNIGHT ASSOCIATE 05/06/2022 1:57 PM OVERNIGHT ASSOCIATE Mari Noguera M.D. LAB BLOOD ADD-ON [facility] [address] [place] [address], [facility] RDWG [facility] in [place] [address] [place] [address] * CBC with Differential, Blood (05/06/2022 1:56 PM OVERNIGHT ASSOCIATE) Hemoglobin 12.9 11.6 - 15.0 g/dL 05/06/2022 2:04 PM OVERNIGHT ASSOCIATE RDWG Hematocrit 41.4 35.5 - 44.9 % 05/06/2022 2:04 PM OVERNIGHT ASSOCIATE RDWG Erythrocytes 4.43 3.92 - 5.13 x10(12)/L 05/06/2022 2:04 PM OVERNIGHT ASSOCIATE RDWG MCV 93.5 78.2 - 97.9 fL 05/06/2022 2:04 PM OVERNIGHT ASSOCIATE RDWG RBC Distrib Width 14.3 12.2 - 16.1 % 05/06/2022 2:04 PM OVERNIGHT ASSOCIATE RDWG Platelet Count 202 157 - 371 x10(9)/L 05/06/2022 2:04 PM OVERNIGHT ASSOCIATE RDWG Leukocytes 6.8 3.4 - 9.6 x10(9)/L 05/06/2022 2:04 PM OVERNIGHT ASSOCIATE RDWG Neutrophils 4.77 1.56 - 6.45 x10(9)/L 05/06/2022 2:04 PM OVERNIGHT ASSOCIATE RDWG Lymphocytes 1.24 0.95 - 3.07 x10(9)/L 05/06/2022 2:04 PM OVERNIGHT ASSOCIATE RDWG Monocytes 0.65 0.26 - 0.81 x10(9)/L 05/06/2022 2:04 PM OVERNIGHT ASSOCIATE RDWG Eosinophils 0.14 0.03 - 0.48 x10(9)/L 05/06/2022 2:04 PM OVERNIGHT ASSOCIATE RDWG Basophils <0.03 0.01 - 0.08 x10(9)/L 05/06/2022 2:04 PM OVERNIGHT ASSOCIATE RDW[facility] Blood (Blood, Venous) 05/06/2022 1:56 PM OVERNIGHT ASSOCIATE 05/06/2022 1:56 PM OVERNIGHT ASSOCIATE Mari Noguera M.D. LAB BLOOD ADD-ON [facility] [address] [address], [facility] RDWG [facility] in [place] [address] [phone] documented in this encounter Visit Diagnoses Diagnosis Multiple Myeloma Not Having Achieved Remission (HCC)- Primary Transplant Stem Cell (HCC) documented in this encounter
--- OUTSIDE RECORDS SUMMARY | 2023-03-21 10:44 | XMS_ITS | Encounter Summary ---
Author Name Unknown Organization [facility] Address [address] [place] [address] Care Team Providers Care Travel Physical Therapist Name Role Phone Unavailable Primary Care Provider Unavailabl e Encounter Details Date Type Department Care Team (Late st Contact Info) Description 03/23/2022 Episode Changes Remote Patient Monitoring [facility] [address] [place] [address] Pratima Kline Social History Tobacco Use Types [...] any clubs o r organizations such as islam groups, unions, fraternal or athletic groups, or [...] Contact Info) Description 03/22/2023 7:30 AM ASSISTANT PROFESSOR OF ECONOMICS Appointment Department of Laboratory Medicine and Pathology, [facility], in [place], [place] [address] [place] [address] Mari Noguera M.D. [address] [place] [phone] 03/22/2023 8:45 AM ASSISTANT PROFESSOR OF ECONOMICS Hospital Encounter Outpatient Procedure Center in [place], [place] [address] [place] [phone] Mari Noguera M.D. [facility] [place] [phone] 03/31/2023 10:10 AM ASSISTANT PROFESSOR OF ECONOMICS Appointment Department of Laboratory Medicine in [address] [phone] Mari Noguera M.D. [facility] [place] [phone] 04/04/2023 3:20 PM ASSISTANT PROFESSOR OF ECONOMICS Office Visit Department of Oncology in [address] [phone] Mari Noguera M.D. [address] [place] [phone] 04/04/2023 3:45 PM ASSISTANT PROFESSOR OF ECONOMICS Infusion Department of Infusion Therapy in [address] [phone] Mari Noguera M.D. [address] [place] [phone] 04/13/2023 10:10 AM ASSISTANT PROFESSOR OF ECONOMICS Appointment Department of Laboratory Medicine in [address] [phone] Mari Noguera M.D. [address] [place] [phone] 04/14/2023 9:00 AM ASSISTANT PROFESSOR OF ECONOMICS Infusion Department of Infusion Therapy in [place] [address] [place] [phone] Mari Noguera M.D. [address] [place] [phone] documented as of this encounter Visit Diagnoses Not on filedocumented in this encounter Additional Health Concerns Infection Onset Date Last Indicated Resolved Time COVID19 03/19/2022 03/19/2022 04/08/2022 5:08 AM ASSISTANT PROFESSOR OF ECONOMICS documented as of this encounter
--- OUTSIDE RECORDS SUMMARY | 2023-03-21 10:44 | XMS_ITS | Encounter Summary ---
Author Name Unknown Organization [facility] Address [address] [place] [address] Care Team Providers Care Classifications Officer Cc/Cm Name Role Phone Unavailable Primary Care Provider Unavailabl e Encounter Details Date Type Department Care Team (Late st Contact Info) Description 03/23/2022 Clinical Communication Department of Family Medicine in [place], [place] [address] [place] [address] Remedios Mir M.D. [address] [place] [phone] Social History Tobacco Use Types Packs/Day Years [...] often do you attend chur ch or scientology services? 1 to 4 times [...] [facility] Occupational Stress Questionnaire Answer Date Recorded [...] st Contact Info) Description 03/22/2023 7:30 AM SEAL MIXING OPERATOR Appointment Department of Laboratory Medicine and Pathology, [facility], in [place], [place] [address] [place] [address] Mari Noguera M.D. [address] [place] [phone] 03/22/2023 8:45 AM SEAL MIXING OPERATOR Hospital Encounter Outpatient Procedure Center in [place], [place] [address] [place] [address] Mari Noguera M.D. [address] [place] [phone] 03/31/2023 10:10 AM SEAL MIXING OPERATOR Appointment Department of Laboratory Medicine in [address] [phone] Mari Noguera M.D. [address] [place] [phone] 04/04/2023 3:20 PM SEAL MIXING OPERATOR Office Visit Department of Oncology in [address] [phone] Mari Noguera M.D. [address] [place] [phone] 04/04/2023 3:45 PM SEAL MIXING OPERATOR Infusion Department of Infusion Therapy in [address] [phone] Mari Noguera M.D. [address] [place] [phone] 04/13/2023 10:10 AM SEAL MIXING OPERATOR Appointment Department of Laboratory Medicine in [address] [address] Mari Noguera M.D. [address] [place] [phone] 04/14/2023 9:00 AM SEAL MIXING OPERATOR Infusion Department of Infusion Therapy in [address] [phone] Mari Noguera M.D. [address] [facility] [place] [phone] documented as of this encounter Visit Diagnoses Not on filedocumented in this encounter Additional Health Concerns Infection Onset Date Last Indicated Resolved Time COVID19 03/19/2022 03/19/2022 04/08/2022 5:08 AM SEAL MIXING OPERATOR documented as of this encounter
--- OUTSIDE RECORDS SUMMARY | 2023-03-21 10:44 | XMS_ITS | Encounter Summary ---
Author Name Unknown Organization [facility] Address [address] [place] [address] Care Team Providers Care Food And Beverage Assistant Manager Name Role Phone Unavailable Primary Care Provider Unavailabl e Encounter Details Date Type Department Care Team (Late st Contact Info) Description 03/22/2022 Orders Only Department of Family Medicine in [place], [place] [address] [place] [address] Evelyn Rivera D.O. [address] [place] [phone] COVID-19 Infection Social History Tobacco Use Types [...] st Contact Info) Description 03/22/2023 7:30 AM SULKY DRIVER Appointment Department of Laboratory Medicine and Pathology, [facility], in [place], [place] [address] [place] [address] Mari Noguera M.D. [address] [place] [phone] 03/22/2023 8:45 AM SULKY DRIVER Hospital Encounter Outpatient Procedure Center in [place], [place] [address] [place] [address] Mari Noguera M.D. [facility] [place] [phone] 03/31/2023 10:10 AM SULKY DRIVER Appointment Department of Laboratory Medicine in [address] [address] Mari Noguera M.D. [address] [place] [phone] 04/04/2023 3:20 PM SULKY DRIVER Office Visit Department of Oncology in [address] [phone] Mari Noguera M.D. [address] [place] [phone] 04/04/2023 3:45 PM SULKY DRIVER Infusion Department of Infusion Therapy in [address] [phone] Mari Noguera M.D. [address] [place] [phone] 04/13/2023 10:10 AM SULKY DRIVER Appointment Department of Laboratory Medicine in [address] [address] Mari Noguera M.D. [address] [place] [phone] 04/14/2023 9:00 AM SULKY DRIVER Infusion Department of Infusion Therapy in [address] [phone] Mari Noguera M.D. [address] [place] [phone] documented as of this encounter Visit Diagnoses Diagnosis COVID-19 Infection documented in this encounter Additional Health Concerns Infection Onset Date Last Indicated Resolved Time COVID19 03/19/2022 03/19/2022 04/08/2022 5:08 AM SULKY DRIVER documented as of this encounter
--- OUTSIDE RECORDS SUMMARY | 2023-03-21 10:44 | XMS_ITS | Encounter Summary ---
Author Name Unknown Organization [facility] Address [address] [place] [address] Care Team Providers Care Installation Drafter Name Role Phone Unavailable Primary Care Provider Unavailabl e Reason for Referral * Outpatient (Routine) - Authorized Specialty Diagnoses / Procedures Referred By Guillermina zamora Referred To Contact Video Medicine Diagnoses COVID-19 Infection Evelyn Rivera D.O. [address] [place] [address] [facility] Referral ID Status Reason Start Date Expiration Date V isits Requested Visits Authorized [id number] Authorized 03/23/2022 03/23/2023 1 1 [place] COORDINATOR Reason for Visit * Reason Comments COVID Treatment Review Encounter Details Date Type Department Care Team (Latest Contact Info) Description 03/22/2022 Clinical Communication Department of Family Medicine, [facility] in [place], [place] [address] [place] [address] Kathi Hart, RAbrahamNAbraham [address] [place] [address] COVID Treatment Review Social History Tobacco Use [...] week 06/11/2021 How often do you attend [facility] or buddhism services? 1 to 4 times [...] Answer Date Recorded PHQ-2 Score 4 11/18/2021 [facility] [place] [facility] - Occupational Stress [...] on: 03/23/2022 03:34 PM Modules accepted: Orders [place] COORDINATOR * Telephone Encounter - Kathi Hart R.N. - 03/22/2022 4:36 PM CST Images from the original note were not included. MWC[facility] TELEPHONE COMMUNICATION NOTE Assembler Utility Buildings: None The patient was called regarding a [...] routed or sent viasecure chat to the [facility] DOD, who will place the CCP orders. Patient will be infused in [facility]. Remote Patient Monitoring: Is the patient immunocompromised [...] patient's chart, it will be ordered by [facility] Doctor of the Day and will bedrawn [...] care provider's office. Link to Fact Sheet: https://www.fda.gov/media/404863/download Remote Patient Monitoring: Is the patient immunocompromised [...] (Motrin) following the dosing recommendations on the patrol inspector's label. - For a sore throat, gargle [...] references were used: Nursing or Provider judgement, [facility], [facility] Protocols Kathi Hart R.N. Jet COVID Care Team [facility] [place] COORDINATOR documented in this encounter Plan of Treatment Upcoming Encounters Date Type Department Care Team (Late st Contact Info) Description 03/22/2023 7:30 AM RETAIL COORDINATOR Appointment Department of Laboratory Medicine and Pathology, [facility], in [place], [place] [address] [place] [address] Mari Noguera M.D. [facility] [place] [phone] 03/22/2023 8:45 AM RETAIL COORDINATOR Hospital Encounter Outpatient Procedure Center in [place], [place] [address] [place] [address] Mari Noguera M.D. [address] [place] [phone] 03/31/2023 10:10 AM RETAIL COORDINATOR Appointment Department of Laboratory Medicine in [address] [address] Mari Noguera M.D. [address] [place] [phone] 04/04/2023 3:20 PM RETAIL COORDINATOR Office Visit Department of Oncology in [address] [phone] Mari Noguera M.D. [address] [place] [phone] 04/04/2023 3:45 PM RETAIL COORDINATOR Infusion Department of Infusion Therapy in [address] [phone] Mari Noguera M.D. [address] [place] [phone] 04/13/2023 10:10 AM RETAIL COORDINATOR Appointment Department of Laboratory Medicine in [address] [phone] Mari Noguera M.D. [address] [place] [phone] 04/14/2023 9:00 AM RETAIL COORDINATOR Infusion Department of Infusion Therapy in [place], [place] [address] [place] [phone] Mari Noguera M.D. [address] [place] [phone] Scheduled Referrals Name Type Priority Associated Diagnoses Orde r Schedule Video anyplace visit Outpatient Referral Routine COVID-19 Infection Expected: 03/25/2022, Expires: 04/06/2022 documented as of this encounter Visit Diagnoses Diagnosis COVID-19 Infection- Primary documented in this encounter Additional Health Concerns Infection Onset Date Last Indicated Resolved Time COVID19 03/19/2022 03/19/2022 04/08/2022 5:08 AM RETAIL COORDINATOR documented as of this encounter
--- OUTSIDE RECORDS SUMMARY | 2023-03-21 10:44 | XMS_ITS | Encounter Summary ---
Author Name Unknown Organization [facility] Address [address] [place] [address] Care Team Providers Care Lens Polisher Name Role Phone Unavailable Primary Care Provider Unavailabl e Encounter Details Date Type Department Care Team (Late st Contact Info) Description 03/19/2022 Clinical Communication Division of Hematology in [place], [place] [address] [place] [address] Silver Turcios M.B.B.S. [address] [place] [address] Social History Tobacco Use Types Packs/Day Years [...] often do you attend chur ch or pentecostalism services? 1 to 4 times per year [...] Answer Date Recorded PHQ-2 Score 4 11/18/2021 [facility] - Occupational Stress Questionnaire Answer [...] st Contact Info) Description 03/22/2023 7:30 AM GRAY TENDER Appointment Department of Laboratory Medicine and Pathology, [facility], in [place], [place] [address] [place] [address] Mari Noguera M.D. [address] [place] [phone] 03/22/2023 8:45 AM GRAY TENDER Hospital Encounter Outpatient Procedure Center in [place], [place] [address] [place] [address] Mari Noguera M.D. [facility] [place] [phone] 03/31/2023 10:10 AM GRAY TENDER Appointment Department of Laboratory Medicine in [address] [address] Mari Noguera M.D. [address] [place] [phone] 04/04/2023 3:20 PM GRAY TENDER Office Visit Department of Oncology in [address] [phone] Mari Noguera M.D. [address] [place] [phone] 04/04/2023 3:45 PM GRAY TENDER Infusion Department of Infusion Therapy in [address] [phone] Mari Noguera M.D. [address] [place] [phone] 04/13/2023 10:10 AM GRAY TENDER Appointment Department of Laboratory Medicine in [address] [phone] Mari Noguera M.D. [address] [place] [phone] 04/14/2023 9:00 AM GRAY TENDER Infusion Department of Infusion Therapy in [address] [phone] Mari Noguera M.D. [address] [place] [phone] documented as of this encounter Visit Diagnoses Not on filedocumented in this encounter
--- OUTSIDE RECORDS SUMMARY | 2023-03-21 10:44 | XMS_ITS | Encounter Summary ---
Author Name Unknown Organization [facility] Address [address] [place] [address] Care Team Providers Care Pressroom Worker Name Role Phone Unavailable Primary Care Provider Unavailabl e Reason for Referral * Outpatient (Routine) - Closed Specialty Diagnoses / Procedures Referred By Guillermina zamora Referred To Contact Hematology Oncology Mari Noguera M.D. [address] [place] [address] [facility] Region Referral ID Status Reason Start Date Expiration Date Visits Re quested Visits Authorized [id number] Closed 03/09/2022 03/08/2025 1 1 PARTUM RN Encounter Details Date Type Department Care Team (Late st Contact Info) Description 03/09/2022 Orders Only Department of Oncology in [place], [place] [address] [place] [phone] Anna Rosa RMaría [address] [place] [address] Multiple Myeloma In Remission (HCC) (Primary Dx); [...] How often do you attend [facility] or hinduism services? 1 to 4 times [...] 11/18/2021 [facility] - Occupational Stress Questionnaire Answer Date [...] st Contact Info) Description 03/22/2023 7:30 AM POSTPARTUM RN Appointment Department of Laboratory Medicine and Pathology, [facility], in [place], [place] [address] [place] [address] Mari Noguera M.D. [address] [place] [phone] 03/22/2023 8:45 AM POSTPARTUM RN Hospital Encounter Outpatient Procedure Center in [place], [place] [address] [place] [address] Mari Noguera M.D. [address] [place] [phone] 03/31/2023 10:10 AM POSTPARTUM RN Appointment Department of Laboratory Medicine in [place], [place] [address] [place] [address] Mari Noguera M.D. [address] [place] [phone] 04/04/2023 3:20 PM POSTPARTUM RN Office Visit Department of Oncology in [address] [phone] Mari Noguera M.D. [address] [place] [phone] 04/04/2023 3:45 PM POSTPARTUM RN Infusion Department of Infusion Therapy in [address] [phone] Mari Noguera M.D. [address] [place] [phone] 04/13/2023 10:10 AM POSTPARTUM RN Appointment Department of Laboratory Medicine in [place], [place] [address] [facility] [address] Mari Noguera M.D. [address] [place] [phone] 04/14/2023 9:00 AM POSTPARTUM RN Infusion Department of Infusion Therapy in [address] [phone] Mari Noguera M.D. [address] [place] [phone] Scheduled Referrals Name Type Priority Associated Diagnoses Order Schedule Hematology office visit (clinic) [facility] Region; General Outpatient Referral Routine Expected: 03/09/2022 (Approximate), Expires: 06/08/2023 documented as of this encounter Results * (ABNORMAL) Comprehensive Metabolic Panel (03/18/2022 9:08 AM POSTPARTUM RN) Potassium, P 4.0 3.6 - 5.2 mmol/L 03/18/2022 9:41 AM POSTPARTUM RN [facility] Sodium, P 133(L) 135 - 145 mmol/L 03/18/2022 9:41 AM POSTPARTUM RN R[facility] Chloride, P 96(L) 98 - 107 mmol/L 03/18/2022 9:41 AM POSTPARTUM RN RDW[facility] Bicarbonate, P 25 22 - 29 mmol/L 03/18/2022 9:41 AM POSTPARTUM RN R[facility] Anion Gap, P 12 7 - 15 03/18/2022 9:41 AM POSTPARTUM RN R[facility] BUN (Blood Urea Nitrogen), P 17 6 - 21 mg/dL 03/18/2022 9:41 AM POSTPARTUM RN RDW[facility] Creatinine 0.95 0.59 - 1.04 mg/dL 03/18/2022 9:41 AM POSTPARTUM RN RDWG Estimated GFR (eGFR) 63 >=60 mL/min/BS A 03/18/2022 9:41 AM POSTPARTUM RN RDW[facility] Comment: Estimated GFR calculated using the 2020 CKD_EPI creatinine equation. Calcium, Total, P 9.6 8.8 - 10.2 mg/dL 03/18/2022 9:41 AM POSTPARTUM RN RDW[facility] Glucose, P 96 70 - 140 mg/dL 03/18/2022 9:41 AM POSTPARTUM RN RDW[facility] Protein, Total, P 6.7 6.3 - 7.9 g/dL 03/18/2022 9:41 AM POSTPARTUM RN RDW[facility] Albumin, P 4.1 3.5 - 5.0 g/dL 03/18/2022 9:41 AM POSTPARTUM RN R[facility] Aspartate Aminotransferase (AST), P 27 8 - 43 U/L 03/18/2022 9:41 AM POSTPARTUM RN RDW[facility] Alkaline Phosphatase, P 64 35 - 104 U/L 03/18/2022 9:41 AM POSTPARTUM RN R[facility] Alanine Aminotransferase (ALT), P 20 7 - 45 U/L 03/18/2022 9:41 AM POSTPARTUM RN RDW[facility] Bilirubin, Total, P 0.2 <=1.2 mg/dL 03/18/2022 9:41 AM POSTPARTUM RN RDW[facility] Blood (Blood, Venous) 03/18/2022 9:08 AM POSTPARTUM RN 03/18/2022 9:15 AM POSTPARTUM RN Mari Noguera M.D. LAB BLOOD ADD-ON [facility] [address] [facility] [place] [address], [facility] R[facility] in [place] [address] [place] [address], [place] [address] * (ABNORMAL) CBC with Differential, Blood (03/18/2022 9:08 AM POSTPARTUM RN) Hemoglobin 12.1 11.6 - 15.0 g/dL 03/18/2022 9:31 AM POSTPARTUM RN RDWG Hematocrit 38.1 35.5 - 44.9 % 03/18/2022 9:31 AM POSTPARTUM RN RDWG Erythrocytes 4.05 3.92 - 5.13 x10(12)/L 03/18/2022 9:31 AM POSTPARTUM RN RDWG MCV 94.1 78.2 - 97.9 fL 03/18/2022 9:31 AM POSTPARTUM RN RDWG RBC Distrib Width 13.1 12.2 - 16.1 % 03/18/2022 9:31 AM POSTPARTUM RN RDW[facility] Platelet Count 138(L) 157 - 371 x10(9)/L 03/18/2022 9:31 AM POSTPARTUM RN RDWG Leukocytes 6.6 3.4 - 9.6 x10(9)/L 03/18/2022 9:31 AM POSTPARTUM RN RDWG Neutrophils 4.95 1.56 - 6.45 x10(9)/L 03/18/2022 9:31 AM POSTPARTUM RN RDW[facility] Lymphocytes 0.87(L) 0.95 - 3.07 x10(9)/L 03/18/2022 9:31 AM POSTPARTUM RN RDWG Monocytes 0.72 0.26 - 0.81 x10(9)/L 03/18/2022 9:31 AM POSTPARTUM RN RDWG Eosinophils <0.03 0.03 - 0.48 x10(9)/L 03/18/2022 9:31 AM POSTPARTUM RN RDWG Basophils <0.03 0.01 - 0.08 x10(9)/L 03/18/2022 9:31 AM POSTPARTUM RN RDWG Blood (Blood, Venous) 03/18/2022 9:08 AM POSTPARTUM RN 03/18/2022 9:15 AM POSTPARTUM RN Mari Noguera M.D. LAB BLOOD ADD-ON [facility] [address] [place] [address], [facility] RDWG [facility] in [place] [address] [place] [address] documented in this encounter Visit Diagnoses Diagnosis Multiple Myeloma In Remission (HCC)- Primary Transplant Stem Cell (HCC) documented in this encounter Additional Health Concerns Infection Onset Date Last Indicated Resolved Time COVID19 03/19/2022 03/19/2022 04/08/2022 5:08 AM POSTPARTUM RN documented as of this encounter
--- OUTSIDE RECORDS SUMMARY | 2023-03-21 10:44 | XMS_ITS | Encounter Summary ---
Author Name Unknown Organization [facility] Address [address] [place] [address] Care Team Providers Care E Learning Manager Name Role Phone Unavailable Primary Care Provider Unavailabl e Encounter Details Date Type Department Care Team (Late st Contact Info) Description 03/22/2022 Clinical Communication Department of Family Medicine in [place], [place] [address] [place] [address] Evelyn Rivera D.O. [address] [place] [phone] Social History Tobacco Use Types Packs/Day Years [...] Answer Date Recorded PHQ-2 Score 4 11/18/2021 [facility] Answer Date [...] ABO Rh and the CCP transfusion. The [place] team will be made aware of the patient and order 03/23/22 since they are currently closed. OPS ENGINEER documented in this encounter Plan of Treatment Upcoming Encounters Date Type Department Care Team (Late st Contact Info) Description 03/22/2023 7:30 AM DEV OPS ENGINEER Appointment Department of Laboratory Medicine and Pathology, [facility], in [place], [place] [address] [place] [address] Mari Noguera M.D. [address] [place] [phone] 03/22/2023 8:45 AM DEV OPS ENGINEER Hospital Encounter Outpatient Procedure Center in [place], [place] [address] [place] [address] Mari Noguera M.D. [address] [place] [phone] 03/31/2023 10:10 AM DEV OPS ENGINEER Appointment Department of Laboratory Medicine in [place], [place] [address] [place] [address] Mari Noguera M.D. [address] [place] [phone] 04/04/2023 3:20 PM DEV OPS ENGINEER Office Visit Department of Oncology in [address] [phone] Mari Noguera M.D. [address] [place] [phone] 04/04/2023 3:45 PM DEV OPS ENGINEER Infusion Department of Infusion Therapy in [address] [phone] Mari Noguera M.D. [address] [place] [phone] 04/13/2023 10:10 AM DEV OPS ENGINEER Appointment Department of Laboratory Medicine in [place], [place] [address] [place] [phone] Mari Noguera M.D. [facility] [place] [phone] 04/14/2023 9:00 AM DEV OPS ENGINEER Infusion Department of Infusion Therapy in [address] [phone] Mari Noguera M.D. [address] [place] [phone] documented as of this encounter Results * ABORh, RBC (03/23/2022 12:01 PM DEV OPS ENGINEER) ABO Group A 03/23/2022 12: 38 PM DEV OPS ENGINEER MKTO Rh Type NEG 03/23/2022 12: 38 PM DEV OPS ENGINEER MKTO Blood (Blood, Venous) 03/23/2022 12:01 PM DEV OPS ENGINEER 03/23/2022 12:04 PM DEV OPS ENGINEER Evelyn Rivera D.O. LAB BLOOD BANK TEST ORDERABLES [facility] [address] [place] [id number], [facility] MKTO [facility] in [address] [address] documented in this encounter Visit Diagnoses Diagnosis COVID-19 Infection- Primary documented in this encounter Additional Health Concerns Infection Onset Date Last Indicated Resolved Time COVID19 03/19/2022 03/19/2022 04/08/2022 5:08 AM DEV OPS ENGINEER documented as of this encounter
--- OUTSIDE RECORDS SUMMARY | 2023-03-21 10:44 | XMS_ITS | Encounter Summary ---
Author Name Unknown Organization [facility] Address [address] [place] [address] Care Team Providers Care Remedial Project Manager Name Role Phone Unavailable Primary Care Provider Unavailabl e Reason for Visit * Reason Onset Date Comments Patient Education 03/23/2022 COVID and Chelsea ome letter/Terms of Service sent 03/23. Encounter Details Date Type Department Care Team (Late st Contact Info) Description 03/23/2022 Remote Monitoring Remote Patient Monitoring [facility] [address] [place] [address] Pratima Kline Patient Education (COVID and Welcome [...] How often do you attend chur or christianity services? 1 to 4 times [...] PHQ-2 Score 4 11/18/2021 [facility] - Occupational Stress Questionnaire Answer [...] st Contact Info) Description 03/22/2023 7:30 AM MACHINE SHORTHAND REPORTER Appointment Department of Laboratory Medicine and Pathology, [facility], in [place], [place] [address] [place] [address] Mari Noguera M.D. [address] [place] [phone] 03/22/2023 8:45 AM MACHINE SHORTHAND REPORTER Hospital Encounter Outpatient Procedure Center in [place], [place] [address] [place] [address] Mari Noguera M.D. [facility] [place] [phone] 03/31/2023 10:10 AM MACHINE SHORTHAND REPORTER Appointment Department of Laboratory Medicine in [address] [phone] Mari Noguera M.D. [address] [place] [phone] 04/04/2023 3:20 PM MACHINE SHORTHAND REPORTER Office Visit Department of Oncology in [address] [phone] Mari Noguera M.D. [address] [place] [phone] 04/04/2023 3:45 PM MACHINE SHORTHAND REPORTER Infusion Department of Infusion Therapy in [address] [phone] Mari Noguera M.D. [address] [place] [phone] 04/13/2023 10:10 AM MACHINE SHORTHAND REPORTER Appointment Department of Laboratory Medicine in [address] [phone] Mari Noguera M.D. [address] [place] [phone] 04/14/2023 9:00 AM MACHINE SHORTHAND REPORTER Infusion Department of Infusion Therapy in [address] [phone] Mari Noguera M.D. [address] [place] [phone] documented as of this encounter Visit Diagnoses Not on filedocumented in this encounter Additional Health Concerns Infection Onset Date Last Indicated Resolved Time COVID19 03/19/2022 03/19/2022 04/08/2022 5:08 AM MACHINE SHORTHAND REPORTER documented as of this encounter
--- NOTE | 2023-03-21 10:45 | CRLHL7_ITS ---
For Patients: As a result of the Cures Act, medical imaging exams and procedure reports are released immediately into your electronic medical record. You may view this report before your referring provider. If you have questions, please contact your health care provider. RIGHT DIAGNOSTIC MAMOGRAM WITH COMPUTER-AIDED DETECTION AND TOMOSYNTHESIS 03/21/2023 CLINICAL HISTORY: RIGHT breast mass/asymmetry. COMPARISON: 03/08/2023, 07/05/2021. TECHNIQUE: Digital RIGHT mammogram in 2 projections. Computer-aided detection and tomosynthesis used. Real-time ultrasound imaging of RIGHT breast with imaging documentation. Scanning was performed by both the technologist and the radiologist. BREAST COMPOSITION: There are scattered areas of fibroglandular density. FINDINGS: 3D spot-compression CC/MLO RIGHT breast mammogram images submitted. Decreased conspicuity of previously noted asymmetric density. No architectural distortion. Benign calcifications. No adenopathy. Targeted RIGHT breast ultrasound performed 6-7 o`clock 11 cm from the nipple. Normal breast tissue is present. No fibrocystic change or mass. IMPRESSION: No suspicious findings. No evidence of malignancy. RECOMMENDATIONS: Routine screening mammography. BI-RADS Category 2: Benign A lay language report of this examination will be provided to the patient. Dictated by Pedro Matos MD @ 03/21/2023 11:55:38 AM YASMEEN/sayra DW/Dictated by: Pedro Matos MD @ 03/21/2023 11:55:00 AM DW/Dictated by: Pedro Matos MD @ 03/21/2023 11:55:00 AM (Electronically Signed)
--- OUTSIDE RECORDS SUMMARY | 2023-03-21 10:45 | XMS_ITS | Encounter Summary ---
Author Name Unknown Organization [facility] Address [address] [place] [address] Care Team Providers Care Assembler Bonding Name Role Phone Panchito Briones MD Primary Care Provider [phone] Reason for Visit * Reason Comments Skin Exam Full Body Skin Cance r Screening Concerns: Phx: NMSC,DNFhx:Brother MM Encounter Details Date Type Department Care Team Description 03/20/2023 10:30 AM WHARF LABOURER Office Visit [facility] [address] [place] [address] Marily Solis MD [address] [place] [address] Skin exam, screening for cancer (Primary Dx); Sun-damaged skin; Galvan angioma; Multiple melanocytic nevi; Seborrheic keratosis; Solar lentiginosis; History of basal cell carcinoma; History of SCC (squamous cell carcinoma) of skin Social History Tobacco Use Types Packs/Day Years [...] * Patient Instructions* Cele Turner LPN - 03/20/2023 10:30 AM WHARF LABOURER Ceramide Based Moisturizers apply daily. Helpful to apply 2-3 minutes after showering or bathing. There are several moisturizers, body washes and cleansers on the market that have ceramides in them. Ceramides are a major part of the lipids (fats) that the skin needs to stay healthy. Like adding more glue between the bricks that make up your skin wall. In General: 1. Thicker is better!!! Use CREAM not LOTION (it is written on the label) 2. Apply at least twice a day, more frequently is better if you can manage it. 3. Hands should be moisturized after EVERY wash Brand is not important, but be sure the word ceramide is on the ingrediant list. Most brands now have several products that include this, and [employer] is a [employer] that puts it in all their products.Examples to help you find them faster at the store: CeraVe: all their products contain ceramides- makes both a cream and an ointment CeraVe cream is a favorite! Cetaphil: Restoraderm Pro Eczema moisturizer. Between a lotion and cream in thickness. Best for summer or people who don't like thicker creams. Eucerin: Advanced Repair, Eczema Relief Aveeno: Eczema Therapy Skin Relief Intense Repair, Curel: Most product lines! Difficult to find a cream (vs lotion), but typically great texture SUN PROTECTION GUIDELINES Recommendations to protect yourself from the sun: * Use sunscreen regularly (see instructions below); * Sun protection: wear wide-brimmed hats, long-sleeves, and sun-protective clothing (look for UPF50); * Sun avoidance: stay out of the sun during the middle of the day (between 10 am and 4 pm) when thesun is strongest and can cause the most damage; check the UV index (on almost all weather apps/websites) and if it is >3, you need protection! * Self-examinations: monitor the skin monthly for any obvious changes in the skin, and if moles show changes in size, shape, color, or character, contact us to discuss re-evaluation. For areas that are difficult to see, have someone take a photo on your phone and then compare your skin to that original photo once a month. Pay attention to new spots, ugly ducklings that are unlike your other spots, and spots that don't heal Sun protective gear tips/resources: -- Rit Sunguard: also available from [employer] and will provide UPF 30 protection to clothes for up to 30 washes -- Coolibar sun protective clothing: available online through the company website or SocialGuides google to find coupons available, since they are almost always 15% off -- Monday Afternoons hats and rash guards (available online) Sunscreen Information Sunscreens are an important tool to help protect yourself from the harmful rays of the sun). They come in two flavors: physical / mineral (titanium dioxide or zinc oxide = block the sun's rays from harming your skin) and chemical (all other active sunscreen ingredients = change the way the sun's energy affects your skin). You can find this information listed as active ingredients on the container. Using physical blockers (containing ONLY titanium dioxide and/or zinc oxide as active ingredients) may help to minimize irritation due to sunscreen use. We recommend these as they simply block the rays of the sun, but chemical sunscreens can be easier to apply, so many people prefer them. SPF stands for ???Sun Protection Factor?? and represents the ability to screen only UVB (burning) rays. UVB rays are mostly blocked in all sunscreens, but only those that contain titanium dioxide, zinc oxide, mexoryl or Parsol 1789 (avobenzone) block the UVA spectrum. Zinc oxide is the best of all. Even though a sunscreen is labeled ???UVA/UVB Protection,?? it might not be entirely accurate because even partial protection allows this label! General sunscreen guidelines: - Find sunscreens you like and use them. :) Make it part of your daily routine. - Apply 20 minutes before sun exposure and then every 2 hours while out in the sun (more frequentlyif sweating or swimming) - set an alarm on your phone! - Use SPF 30 or higher. SPF 15 provides about 92-93% coverage, SPF 30 about 95- 97% coverage, and SPF 45 about 98% coverage. That is to say, SPF 30 is not twice as good as SPF 15; think of it as a curve graph. - Make sure it is BROAD SPECTRUM [these protect against all UVB (Burning) rays and UVA (Aging, cAncer, tAnning) rays]. See table below. - For your body, you should be applying at least one ounce (size of golf ball/shot glass) per application. - Makeup is usually not enough protection. - Combination sunscreen-insect repellants are not recommended as sunscreen needs to be reapplied every 2 hours; insect repellant does not, and that would lead to too much DEET exposure. - Sunscreen sprays are okay for RE-APPLICATION only. Most people do not spray enough on to get goodenough protection. Recommendation: Use a lotion-based sunscreen to get a good first/base layer. UVA BLOCKERS: Make sure your sunscreen has one of these active ingredients! Everything else in the ???active ingredients?? box of a sunscreen label blocks UVB only. Zinc Oxide (preferred) Titanium dioxide Parsol 178 (avobenzone) Mexoryl Examples of some good sunscreens* Absolutely-Plainmark Aveeno Baby Rosman sunscreens [place] Blue Lizard BullFrog CaliforniaBaby Coppertone Spectra3 [facility] Elta Fallene/TotalBlock Neutrogena NoAd Vanicream WaterBabies Sticks work great, like Neutrogena pure and free baby SPF 60 stick * Note, this list is not meant to be comprehensive, just trying to pull together some names that might be helpful to you. If they are not at a local store, they can be found on-line for order. EACH NAMEBRAND MAKES MULTIPLE TYPES SO YOU STILL HAVE TO CHECK FOR ONE OF THE FOUR INGREDIENTS LISTED IN THE LEFT COLUMN!!! Vitamin D: We get vitamin D through the skin. If you do not get enough sun in the summer to get tanlines, you should take a vitamin D supplement: 400units for children and 1000units for adults per day. Some people prefer to use a daily facial moisturizer with sunscreen in it. The principles above apply, so check the active ingredient list. Examples: - Cetaphil Facial Moisturizer for all skin types, SPF 50 (5.7% titanium dioxide & chemicals) - Clinique Super City Block, SPF 40 (8.8% zinc oxide, 6.6% titanium dioxide & chemicals) - Eucerin Every Day Protection Face Lotion, SPF 30 (5% zinc, 2.5% titanium dioxide & chemicals) - La Donta Posay Toleriane Double Repair Moisturizer UV, SPF 30 (chemicals) - Olay Complete UV365 Daily Moisturizer with Sunscreen, SPF 30 (7.0% zinc & chemicals) SUNBLOCKS FOR SENSITIVE SKIN Sunscreens can cause different types of reactions in people with with sensitive skin. The list below (exact product listed) includes sunscreens that are less likely to cause these reactions because 1) they contain ONLY physical sunblock ingredients [zinc oxide and titanium dioxide], and 2) they do not contain any chemical sunscreens/fragrance additives/formaldehyde preservatives/or methylisothiazolinone. - Cerave Baby Mineral Sunscreen Lotion SPF 45 - EltaMD UV Physical broad-spectrum SPF 41 - EltaMD UV Pure broad-spectrum SPF 47 - Neutrogena Healthy Defense Daily Moisturizer with Sunscreen PureScreen Sensitive Skin SPF 50 - Neutrogena Pure and Free Baby Sunblock Stick SPF 60 (stick only!) - TIZO Ultra Zinc Body & Face Sunscreen Non-Tinted SPF 40 Broad Spectrum - MPV Sunscreen Sport Broad Spectrum SPF 35 (www.[employer]ex [employer] or ) Other sunscreens with physical sunblock molecules (no chemical sunblock molecules) include: - Aveeno Active Naturals Natural Protection Mineral Block SPF30 (regular and baby) - Blue Lizard Sensitive SPF 30 - Blue Lizard Baby SPF 30+ - Neutrogena Sensitive Skin SPF 30, 60+ - Walgreen???s Sensitive Skin SPF 70 - Neutrogena pure and free facial lotion SPF50 Tinted sunscreens: Can be more expensive, but don't look white & are generally smooth to apply. Look for iron oxide(s) in ingredient list as these particles can block visible light, which helps pigmentation issues like melasma. - Skinceuticals Physical Fusion SPF 50 - about $30 and available at [employer] in stores - [place] Donta Posay Antihelios mineral sunscreen SPF 50 - Elta MD UV Physical Broad Spectrum SPF 41 - this is my favorite (about $28 available on [employer], [employer], and [employer]; not found in stores) - Elta MD UV Clear Broad-Spectrum Tinted SPF 46 - Epionce Daily Shield Lotion Tinted SPF 50 - [facility] Mineral Creme Broad Spectrum SPF 50 - Supergoop! Daily Correct CC Cream SPF35 (more like a foundation/concealer) Sun protection for children: - Sun avoidance and sun protective clothing are mainstays for protecting kids from the harmful raysof the suns. I love the kids' play hat from Monday Afternoons! - Use physical sunscreens whenever possible. Pay attention to active ingredient labels - just because something says Baby on it does not mean it is a safe sunscreen. Some have physical and chemicalingredients. See lists above for physical sunscreens and sunblocks for sensitive skin. Other options include: Aveeno Baby Continuous Protection Sunscreen SPF 50, Neutrogena Baby, Mustela Mineral Sunscreen Lotion. - Sprays are generally not recommended, at least not on the face. - Sunscreen is generally not recommended for infants less than 6 months old, but physical sunblockscan be applied to limited areas if out for extended periods. Talk to your head rose grower. Many local pharmacies and [employer] carry some of these options or you may purchase themonline at www.Medocity or www.Blue Pillar. If you've had trouble finding a sunscreen that works for you, ask your head rose grower. 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 Continue Protopic 0.1% oint BID PRN Family history melanoma in brother Inflamed epidermal cyst, right upper back Chief Complaint Patient presents with Skin Exam Full Body Skin Cancer Screening Concerns: Phx: NMSC,DN Fhx:Brother MM History of Present Illness: Keyshavaibhav Melendez is a 77 y.o. female who presents for a full body skin exam today. I last saw her in October, at which time she had an inflamed cyst on her back. We discussed her returning for full-body exam given her recent history of multiple myeloma and stem cell transplant as well as history of SCC, BCC and atypical melanocytic hyperplasia. Today, she denies any particular spots that are symptomatic or changing. Past Medical History, Family History: Reviewed and updated in [facility] History of multiple myeloma status post ASCT day 0 12/02/2021 on bortezomib and lenalidomide Family history of melanoma in brother Social History: Pat is retired and lives in [place]. Medications: The patient has a current medication list which includes the following prescription(s): acyclovir, amoxicillin, aspirin ec, atenolol, bortezomib, cyanocobalamin, lisinopril, loperamide, lorazepam, magnesium chloride, metformin, ondansetron, penicillin v potassium, prochlorperazine, and triamcinolone acetonide. Allergies: The patient is allergic to adhesive. Review of Systems: Generally feels well without other skin concerns today. Physical Examination: General: Well-appearing female, in no distress, alert and oriented. Skin: Full body skin exam performed including the scalp, face, ears, eyelids, neck, abdomen, chest,back, buttocks, bilateral upper and lower extremities. Did examine genitals. Pertinent findings as below. Derm Exam, Assessment and Plan: 1. Skin exam, screening for cancer 2. 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 4. Multiple melanocytic nevi - Scattered 3-5 mm uniformly colored, bland, symmetrical brown macules and papules on trunk, arms, and legs Benign, reassured. 5. Seborrheic keratosis Scattered sanchez to brown, stuck-on, waxy papules noted to the anterior/posterior torso, arms, legs 6. Solar lentiginosis Sanchez macules in sun-exposed areas. No clinical outliers noted Reassurance provided 7. History of basal cell carcinoma Well healed scar with no evidence of recurrence noted. 8. History of SCC (squamous cell carcinoma) of skin Well healed scar with no evidence of recurrence noted. 9. Personal history of atypical melanocytic hyperplasia - no evidence of recurrence by inspection or palpation Reassurance provided Follow up: Return to clinic one year, sooner for new concerns. 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
--- OUTSIDE RECORDS SUMMARY | 2023-03-21 10:45 | XMS_ITS | Clinical Summary ---
Author Name Unknown Organization [facility] Address [place], [place] [address] Care Team Providers Care Multimedia Authoring Specialist Name Role Phone Dustin Briones MD Primary Care Provider [phone] Allergies No known active allergies Medications Medication [...] 01/13/2021, 04/13/2020, Additional history exists Care Teams Multimedia Authoring Specialist Relationship Specialty Start Date End Date Dustin Briones MD PCP - General Family Practice 08/21/20
--- OUTSIDE RECORDS SUMMARY | 2023-03-21 10:45 | XMS_ITS | Encounter Summary ---
Author Name Unknown Organization [facility] Address [address] [place] [address] Care Team Providers Care Tax Compliance Agent Name Role Phone Unavailable Primary Care Provider Unavailabl e Encounter Details Date Type Department Care Team (Late st Contact Info) Description 03/07/2022 Orders Only Department of Oncology in [place], [place] [address] [place] [address] Mari Noguera M.D. [address] [place] [address] [phone] Social History Tobacco Use Types Packs/Day Years [...] often do you attend chur ch or episcopalian services? 1 to 4 times [...] 4 11/[facility]/2021 [facility] [...] st Contact Info) Description 03/22/2023 7:30 AM CLARIFIER OPERATOR Appointment Department of Laboratory Medicine and Pathology, [facility], in [place], [place] [address] [place] [address] Mari Noguera M.D. [address] [place] [phone] 03/22/2023 8:45 AM CLARIFIER OPERATOR Hospital Encounter Outpatient Procedure Center in [place], [place] [address] [place] [address] Mari Noguera M.D. [facility] [phone] 03/31/2023 10:10 AM CLARIFIER OPERATOR Appointment Department of Laboratory Medicine in [address] [address] Mari Noguera M.D. [address] [place] [phone] 04/04/2023 3:20 PM CLARIFIER OPERATOR Office Visit Department of Oncology in [address] [phone] Mari Noguera M.D. [address] [place] [phone] 04/04/2023 3:45 PM CLARIFIER OPERATOR Infusion Department of Infusion Therapy in [address] [phone] Mari Noguera M.D. [address] [place] [phone] 04/13/2023 10:10 AM CLARIFIER OPERATOR Appointment Department of Laboratory Medicine in [address] [address] Mari Noguera M.D. [address] [place] [phone] 04/14/2023 9:00 AM CLARIFIER OPERATOR Infusion Department of Infusion Therapy in [address] [phone] Mari Noguera M.D. [address] [place] [address] [place] [phone] documented as of this encounter Visit Diagnoses Not on filedocumented in this encounter
--- OUTSIDE RECORDS SUMMARY | 2023-03-21 10:45 | XMS_ITS | Encounter Summary ---
Author Name Unknown Organization [facility] Address [address] [place] [address] Care Team Providers Care Produce Department Manager Name Role Phone Panchito Briones MD Primary [...] Department Care Team Description 03/21/2024 10:15 AM PACKAGING MACHINE OPERATOR Appointment [facility] [address] [place], [place] [phone] Marily Solis MD [address] [place] [address] documented as of this encounter Visit Diagnoses Not on filedocumented in this encounter Care Teams Produce Department Manager Relationship Specialty Start Date End Date Panchito Briones MD [facility] [address] [place] [address] PCP - General Family Practice 11/23/22 documented as of this encounter
--- OUTSIDE RECORDS SUMMARY | 2023-03-21 10:45 | XMS_ITS | Encounter Summary ---
Author Name Unknown Organization [facility] Address [address] [place] [address] Care Team Providers Care News Producer Name Role Phone Panchito Briones MD Primary [...] Department Care Team Description 03/21/2024 10:15 AM REFRACTORY MIXER Appointment [facility] [address] [place], [place] [address] Marily Solis MD [address] [place] [phone] documented as of this encounter Visit Diagnoses Not on filedocumented in this encounter Care Teams News Producer Relationship Specialty Start Date End Date Panchito Briones MD [facility] [address] [place] [address] PCP - General Family Practice 11/23/22 documented as of this encounter
--- OUTSIDE RECORDS SUMMARY | 2023-03-21 10:45 | XMS_ITS | Encounter Summary ---
Author Name Unknown Organization [facility] Address [address] [place] [address] Care Team Providers Care Services Clerk Name Role Phone Panchito Briones MD Primary Care Provider [phone] Encounter Details Date Type Department Care Team Description 08/04/2012 Outside Hospital External to External, [place] [address] HISTORY PHYSICAL Social History Tobacco Use Types [...] Department Care Team Description 03/21/2024 10:15 AM BUSINESS SERVICES SPECIALIST SALES Appointment [facility] [address] [place], [place] [phone] Marily Solis MD [address] [place], [place] [phone] documented as of this encounter Visit Diagnoses Not on filedocumented in this encounter Care Teams Services Clerk Relationship Specialty Start Date End Date Panchito Briones MD [facility] [address] [place] [address] PCP - General Family Practice 11/23/22 documented as of this encounter
--- OUTSIDE RECORDS SUMMARY | 2023-03-21 10:45 | XMS_ITS | Encounter Summary ---
Author Name Unknown Organization [facility] Address [address] [place] [address] Care Team Providers Care Neurology Epilepsy Physician Name Role Phone Panchito Briones MD Primary Care Provider [phone] Encounter Details Date Type Department Care Team Description 08/05/2012 Outside Hospital External to [facility], Provider DISCHARGE SUMMARY Social History Tobacco Use [...] as of this encounter Progress Notes * [facility], Provider - 08/05/2012 12:00 AM CDT documented in this encounter Plan of Treatment Upcoming Encounters Date Type Department Care Team Description 03/21/2024 10:15 AM DENTAL HYGIENE TEACHER Appointment [facility] [address] [place] [address] [facility] [place], [place] [address]326 documented as of this encounter Visit Diagnoses Not on filedocumented in this encounter Care Teams Neurology Epilepsy Physician Relationship Specialty Start Date End Date Panchito Briones MD [facility] [address] [place] [address] PCP - General Family Practice 11/23/22 documented as of this encounter
--- OUTSIDE RECORDS SUMMARY | 2023-03-21 10:45 | XMS_ITS | Encounter Summary ---
Author Name Unknown Organization [facility] Address [address] [place] [address] Care Team Providers Care Medical Records Technician Name Role Phone Panchito Briones MD Primary Care Provider [phone] Encounter Details Date Type Department Care Team [...] Department Care Team Description 03/21/2024 10:15 AM ACCOUNT RELATIONSHIP MANAGER Appointment [facility] [address] [place] [address] Marily Solis MD [address] [place], [place] [phone] documented as of this encounter Visit Diagnoses Not on filedocumented in this encounter Care Teams Medical Records Technician Relationship Specialty Start Date End Date Panchito Briones MD [facility] [address] [place] [address] PCP - General Family Practice 11/23/22 documented as of this encounter
--- OUTSIDE RECORDS SUMMARY | 2023-03-21 10:45 | XMS_ITS | Encounter Summary ---
Author Name Unknown Organization [facility] Address [address] [place] [address] Care Team Providers Care Reel Slitter Name Role Phone Panchito Briones MD Primary Care Provider [phone] Encounter Details Date Type Department Care Team Description 04/22/2003 [facility] Internal Medicine [place] [address] [place] [address] Dafne Sellers MD History and [facility] Social History Tobacco Use Types Packs/Day [...] * Dafne Sellers - 04/22/2003 12:00 AM TRANSMISSION BUILDER SMISSION BUILDER documented in this encounter Plan of Treatment Upcoming Encounters Date Type Department Care Team Description 03/21/2024 10:15 AM TRANSMISSION BUILDER Appointment [facility] [address] [place], [place] [phone] Marily Solis MD [address] [place] [phone] documented as of this encounter Visit Diagnoses Not on filedocumented in this encounter Care Teams Reel Slitter Relationship Specialty Start Date End Date Panchito Briones MD [facility] [address] [place] [address] PCP - General Family Practice 11/23/22 documented as of this encounter
--- OUTSIDE RECORDS SUMMARY | 2023-03-21 10:45 | XMS_ITS | Encounter Summary ---
Author Name Unknown Organization [facility] Address [address] [place] [address] Care Team Providers Care Front Desk Monitor Name Role Phone Panchito Briones MD Primary Care Provider [phone] Encounter Details Date Type Department Care Team Description 05/19/2003 [facility]ly [facility] Internal Medicine [place] [address] [place] [address] Dafne Sellers MD History and [facility] Social History Tobacco Use [...] * Dafne Sellers - 05/19/2003 12:00 AM DYE AUTOMATION OPERATOR AUTOMATION OPERATOR * Dafne Sellers - 05/19/2003 12:00 AM DYE AUTOMATION OPERATOR AUTOMATION OPERATOR documented in this encounter Plan of Treatment Upcoming Encounters Date Type Department Care Team Description 03/21/2024 10:15 AM DYE AUTOMATION OPERATOR Appointment [facility] [address] [place], [place] [phone] Marily Solis MD [address] [place] [address] documented as of this encounter Visit Diagnoses Not on filedocumented in this encounter Care Teams Front Desk Monitor Relationship Specialty Start Date End Date Panchito Briones MD [facility] [address] [place] [address] PCP - General Family Practice 11/23/22 documented as of this encounter
--- OUTSIDE RECORDS SUMMARY | 2023-03-21 10:45 | XMS_ITS | Encounter Summary ---
Author Name Unknown Organization [facility] Address [address] [place] [address] Care Team Providers Care Plumbing Inspector Name Role Phone Panchito Briones MD Primary Care Provider [phone] Encounter Details Date Type Department Care Team Description 04/24/2003 Hospital None Unknown, Physician [address] [place], [place] [address] [facility] Report of Discharge Summary Social History Tobacco [...] * Unknown, Physician - 04/24/2003 12:00 AM ETCHED CIRCUIT PROCESSOR documented in this encounter Plan of Treatment Upcoming Encounters Date Type Department Care Team Description 03/21/2024 10:15 AM ETCHED CIRCUIT PROCESSOR Appointment [facility] [address] [place], [place] [phone] Marily Solis MD [facility] [place], [place] [address] documented as of this encounter Visit Diagnoses Not on filedocumented in this encounter Care Teams Plumbing Inspector Relationship Specialty Start Date End Date Panchito Briones MD [facility] [address] [place] [address] PCP - General Family Practice 11/23/22 documented as of this encounter
--- OUTSIDE RECORDS SUMMARY | 2023-03-21 10:45 | XMS_ITS | Encounter Summary ---
Author Name Unknown Organization [facility] Address [address] [place] [address] Care Team Providers Care Slab Grinder Name Role Phone Panchito Briones MD Primary Care Provider [phone] Encounter Details Date Type Department Care Team [...] as of this encounter Progress Notes * [facility], PROVIDER - 08/03/2012 12:00 AM CDT documented in this encounter Plan of Treatment Upcoming Encounters Date Type Department Care Team Description 03/21/2024 10:15 AM CIGARETTE TIPPER Appointment [facility] [address] [place] [address] Marily Solis MD [address] [place], [place] [phone] documented as of this encounter Visit Diagnoses Not on filedocumented in this encounter Care Teams Slab Grinder Relationship Specialty Start Date End Date Panchito Briones MD [facility] [address] [place] [address] PCP - General Family Practice 11/23/22 documented as of this encounter
--- OUTSIDE RECORDS SUMMARY | 2023-03-21 10:45 | XMS_ITS | Encounter Summary ---
Author Name Unknown Organization [facility] Address [address] [place] [address] Care Team Providers Care Olericulture Professor Name Role Phone Panchito Briones MD Primary Care Provider [phone] Encounter Details Date Type Department Care Team Description 10/04/2011 Consent for Procedure/Treatment [facility] Department INFORMED CONSENT RECORD Social History Tobacco [...] Department Care Team Description 03/21/2024 10:15 AM SKETCH MAKER Appointment [facility] [address] [place] [address] Marily Solis MD [facility] [place], [place] [phone] documented as of this encounter Visit Diagnoses Not on filedocumented in this encounter Care Teams Olericulture Professor Relationship Specialty Start Date End Date Panchito Briones MD [facility] [address] [place] [address] PCP - General Family Practice 11/23/22 documented as of this encounter
--- OUTSIDE RECORDS SUMMARY | 2023-03-21 10:45 | XMS_ITS | Clinical Summary ---
Author Name Unknown Organization [facility] Address [address] [place] [address] Care Team Providers Care Fleet Manager Name Role Phone Panchito Briones MD Primary Care Provider [phone] Source Comments You are receiving this document as you are listed as the primary care provider,follow-up provider, or the patient has been referred to you for consultation.This is in compliance with the Medicare and[facility] EHR Incentive Program,which states Providers who transition their patient to another setting of careor provider of care or refers their patient to another provider of care shouldprovide summary care record for each transition of care or referral. [employer] Allergies Active Allergy Reactions Criticality Noted Date [...] cause Major depressive disorder, recurrent episode Overview: Epic Essential hypertension 05/31/2002 Overview: Epic Class 2 severe obesity with serious comorbidity and body mass index (BMI) of 38.0 to 38.9 in adult 05/31/2002 Overview: Epic Resolved Problems Problem Noted Date Diagnosed Date Resolved Date SBO (small bowel obstruction) 07/09/2015 05/03/2017 Hyperlipidemia 07/09/2015 01/16/2018 Left upper quadrant pain 07/09/201508/2017 Radial tunnel syndrome 10/03/201110/03 Disturbance in sleep behavior 05/12/2003 01/16/2018 Overview: Epic Encounters Date Type Department Care Team Description 03/20/2023 10:30 AM WOVEN LABEL DESIGNER Office Visit [facility] [address] [place] [address] Marily Solis MD Skin exam, screening for cancer (Primary Dx); Sun-damaged skin; Galvan angioma; Multiple melanocytic nevi; Seborrheic keratosis; Solar lentiginosis; History of basal cell carcinoma; History of SCC (squamous cell carcinoma) of skin from Last 3 Months Immunizations Name Administration Dates Next Due Flu Vac (3+ yrs) 03/29/2012, 1,11/27/2009, 009,12/11/2006,12/13/2005,01/13/2005 [id number] 01/01/2009 Influenza IIV3 (Trivalent) F óscar Highdose, 65+ Yrs (44578) 12/27/2018,12/14/2017,12/07/2016, 016,12/11/2014 Influenza IIV4 (Quadrivalent ) 0.5mL (59065) 05/20/2013 PCV13 (Prevnar) 12/11/2014 PPSV23 (Pneumovax) 12/07/2016,11/27/2009 Td 09/23/1996,02/26/1983 Td (7+ yrs) 07/27/2006 Tdap 06/30/2010 Zoster (Zostavax) 03/29/2012 Family History Medical History Relation Name Comments Cerebrovascular Disease Father Coronary Artery Disease Father [place] a ge 87 Heart Disease Father Hypertension Father Kidney Disorder Father stones Cataract Mother High Blood Pressure Mother Hypertension Mother Thromboembolic Disease Mother Alcohol/Drug Abuse Daughter Cancer, Breast Maternal Aunt Coronary Artery Disease Maternal Grandfather [place] age 86 Macular Degeneration Maternal Grandfather Cancer, [...] Comments Blood Pressure 172/79 01/01/2019 10:13 AM WOVEN LABEL DESIGNER Pulse 57 01/01/2019 10:13 AM WOVEN LABEL DESIGNER Temperature 36.6 ??C (97.9 ??F) 01/01/2019 10:[address] Respiratory Rate 16 01/01/2019 10:13 AM WOVEN LABEL DESIGNER Oxygen Saturation 100% 06/06/2017 3:41 PM CDT Inhaled Oxygen Concentration - - Weight 97.1 kg (214 lb) 01/01/2019 10:13 AM WOVEN LABEL DESIGNER Height 160 cm (5' 3) 01/01/2019 10:13 AM WOVEN LABEL DESIGNER Body Mass Index 37.91 01/01/2019 10:13 AM WOVEN LABEL DESIGNER Plan of Treatment Upcoming Encounters Date Type Department Care Team Description 03/21/2024 10:15 AM WOVEN LABEL DESIGNER Appointment [facility] [address] [place], [place] [phone] Marily Solis MD [address] [place], [place] [phone] Health Maintenance Due Date Last Done Comments COVID-19 Vaccine (#1) 04/11/1946 Mammogram 01/16/2019 01/16/2018, 030 10/2016, 12/31/2014, Additional history exists Prediabetes: HGBA1C 05/25/2019 05/24/2018, 05/03/2017, 12/07/2016 Colonoscopy 06/06/2022 06/06/2017, 03/30, 10/04/2011, Additional history exists Medicare Annual Wellness Visit 02/27/2023 01/16/2018, 12/07/2016 MTM Targeted 09/02/2023 09/01/2022, 07/2022, 01/13/2022, Additional history exists DTaP/Tdap/Td (4 - Tdap) 09/05/2032 09/06/19, 04/15/2022, 06/30/2010, Additional history exists Dexa Completed 12/31/2014, 07/28, 08/10/2006 Hep C Screening (Preventive Services) Completed 12/07/2016 Cholesterol Discontinued 05/24/2018, 10/2017, 10/03/2013, Additional history exists HepA Aged Out 09/05/2022 No longer eligi ble based on patient's age to complete this topic Pneumococcal 65+ Yrs Completed 09/05/2022, 03/06/2019, 12/07/2016, Additional history exists IPV (Polio) Aged Out 12/08/2022, 09/05/2022 No lo nger eligible based on patient's age to complete this topic Influenza Completed 12/08/2022, 05/2021, 02/17/2021, Additional history exists Zoster/Shingles Completed 12/08/2022, 08/27, 03/29/2012 MCV4 Aged Out 12/20/2022, 09/05/2022 No lo nger eligible based on patient's age to complete this topic HepB Aged Out No longer eligi ble based on patient's age to complete this topic Hib Aged Out No longer eligi ble based on patient's age to complete this topic Medical Devices Implanted Type Area Classified Copy Control Clerk Device Identifier Shelf Expiration Date Model / Serial / Lot Graft Alloderm [id number] - [id number] Implanted:Qty: 1 on 05/01/2006 at [facility] DEVICE N/A: ABDOMEN Life Cell [id number] / / [id number] Graft Alloderm [id number] - [id number] Implanted:Qty: 2 on 05/01/2006 at [facility] N/A: ABDOMEN Life Cell 01/28/2008 [id number] / / [id number] Graft Alloderm [id number] - [id number] Implanted:Qty: 1 on 05/01/2006 at [facility] N/A: ABDOMEN Life Cell 04/28/2007 [id number] / / [id number] Advance Directives Documents on File Type Date Recorded Patient Customer Relations Representative Expl anation Advance Directives and Living Will 08/19/2004 Power of Engineering Director 08/19/2004 Latest Code Status on File Code Status Date Activated Date Inactivated Comments Full Code 02/04/2016 7:01 PM 02/06/2016 1:38 PM Code Status History Code Status Date Activated Date Inactivated Comments Full Code 07/09/2015 7:04 PM 07/10/2015 8:01 PM Full Code 05/01/2006 5:01 PM 05/06/2006 4:16 PM None 04/14/2004 1:55 PM 04/14/2004 2:55 PM Care Teams Fleet Manager Relationship Specialty Start Date End Date Panchito Briones MD [facility] [address] [place] [address] PCP - General Family Practice 11/23/22
--- OUTSIDE RECORDS SUMMARY | 2023-03-21 10:45 | XMS_ITS | Encounter Summary ---
Author Name Unknown Organization [facility] Address [address] [place] [address] Care Team Providers Care Stave Log Ripsaw Operator Name Role Phone Panchito Briones MD Primary Care Provider [phone] Encounter Details Date Type Department Care Team Description 03/02/2015 Consent for Procedure/Treatme [facility] [place] [address] [place], [place] [phone] Lisseth Lua MD [address] [place], [place] [phone] CONSENT FOR SKIN BIOPSY OR EXCISION Social [...] Department Care Team Description 03/21/2024 10:15 AM BRANCH OPERATIONS SPECIALIST Appointment [facility] [address] [place], [place] [address] Marily Solis MD [address] [place], [place] [address] documented as of this encounter Visit Diagnoses Not on filedocumented in this encounter Care Teams Stave Log Ripsaw Operator Relationship Specialty Start Date End Date Panchito Briones MD [facility] [address] [place] [address] PCP - General Family Practice 11/23/22 documented as of this encounter
--- OUTSIDE RECORDS SUMMARY | 2023-03-21 10:45 | XMS_ITS | Encounter Summary ---
Author Name Unknown Organization [facility] Address [address] [place] [address] Care Team Providers Care Bit Tapper Name Role Phone Panchito Briones MD Primary Care Provider [phone] Reason for Visit * Reason Comments SKIN LESION Upper middle back le dm x 1 year ago. Daughter Reyna noted it is larger. History of BCC and SCC. Encounter Details Date Type Department Care Team Description 11/23/2022 2:00 PM CDT Office Visit [facility] [address] [place] [address] Marily Solis MD [address] [place] [address] Inflamed epidermoid cyst of skin (Primary [...] and Family History: Reviewed and updated in [facility] History of multiple myeloma status [...] sooner for new concerns. Marily Solis MD [facility] documented in this encounter Plan of Treatment Upcoming Encounters Date Type Department Care Team Description 03/21/2024 10:15 AM CEMENT GRINDING MILL OPERATOR Appointment [facility] [address] [place], [place] [phone] Marily Solis MD [address] [place] [address] documented as of this encounter Visit Diagnoses Diagnosis Inflamed epidermoid cyst of skin- Primary documented in this encounter Care Teams Bit Tapper Relationship Specialty Start Date End Date Panchito Briones MD [facility] [address] [place] [address] PCP - General Family Practice 11/23/22 documented as of this encounter
--- OUTSIDE RECORDS SUMMARY | 2023-03-21 10:45 | XMS_ITS | Encounter Summary ---
Author Name Unknown Organization [facility] Address [address] [place] [address] Care Team Providers Care Concrete Tile Machine Operator Name Role Phone Elsewhere, Pcp [...] you attend [facility] or taoism services? 1 to 4 times [...] 4 11/18/2021 [facility] - Occupational Stress Questionnaire Answer Date [...] Contact Info) Description 03/22/2023 7:30 AM SENIOR ACCOUNTING MANAGER Appointment Department of Laboratory Medicine and Pathology, [facility], in [place], [place] [address] [place] [address] Mari Noguera M.D. [address] [place] [phone] 03/22/2023 8:45 AM SENIOR ACCOUNTING MANAGER Hospital Encounter Outpatient Procedure Center in [place], [place] [address] [place] [address] Mari Noguera M.D. [address] [place] [phone] 03/31/2023 10:10 AM SENIOR ACCOUNTING MANAGER Appointment Department of Laboratory Medicine in [address] [place] [address] Mari Noguera M.D. [address] [place] [phone] 04/04/2023 3:20 PM SENIOR ACCOUNTING MANAGER Office Visit Department of Oncology in [address] [address] Mari Noguera M.D. [address] [place] [phone] 04/04/2023 3:45 PM SENIOR ACCOUNTING MANAGER Infusion Department of Infusion Therapy in [address] [address] Mari Noguera M.D. [address] [place] [phone] 04/13/2023 10:10 AM SENIOR ACCOUNTING MANAGER Appointment Department of Laboratory Medicine in [address] [place] [address] Mari Noguera M.D. [address] [place] [phone] 04/14/2023 9:00 AM SENIOR ACCOUNTING MANAGER Infusion Department of Infusion Therapy in [address] [address] Mari Noguera M.D. [address] [place] [phone] documented as of this encounter Visit Diagnoses Not on filedocumented in this encounter Additional Health Concerns Infection Onset Date Last Indicated Resolved Time COVID19 Pending 12/07/2021 12/07/2021 12/08/2021 1 :49 AM CDT COVID19 03/19/2022 03/19/2022 04/08/2022 5:08 AM SENIOR ACCOUNTING MANAGER Protective Environment 06/03/2022 06/03/2022 documented as of this encounter Care Teams Concrete Tile Machine Operator Relationship Specialty Start Date End Date Elsewhere, Pcp PCP - General Internal Medicine 04/01/22 documented as of this encounter
--- OUTSIDE RECORDS SUMMARY | 2023-03-21 10:45 | XMS_ITS | Encounter Summary ---
Author Name Unknown Organization [facility] Address [address], [place] [address] Care Team Providers Care Alumina Plant Supervisor Name Role Phone Unavailable Primary Care Provider Unavailabl e Reason for Visit * Reason Comments MEDICATION REVIEW AND EDUCATION Encounter Details Date Type Department Care Team Description 09/01/2022 10:00 AM CDT Phone Visit [facility] [address] [place] [address] Mirza Cheatham, PharmD [address] [place] [address] Polypharmacy (Primary Dx) Social History Tobacco Use [...] 12/10/2021 1:49 PM CDT Recent Data from [facility] Related to CBC with Differential, Blood Component [...] -- -- -- -- Recent Data from [facility] Related to Monoclonal Protein Study, Expanded Panel Component 08/26/22 08/19/22 07/22/22 06/21/22 05/20/22 12/20/22 Total Protein, S 5.7 Low 5.8 Low 6.0 Low 5.9 Low 5.9 Low 6.2 Low [place] Free Light Chain, S 1.10 1.21 2.10 High 0.8300 0.7100 -- Lambda Free Light Chain, S 1.23 1.49 1.75 1.22 0.9200 -- Three Points/Lambda FLC Ratio 0.8943 0.8121 1.20 0.6803 0.7717 [...] gamma fraction. Reviewed and interpreted by: Joon A. Jelani, M.D. -- Assessment BP goal: <140/90. Pt is not at goal. LDL goal: high intensity statin. Pt is not at goal. HgbA1C goal: <7%. Pt is at goal. 1. Hypertension and amlodipine. Indication - Additional Drug Therapy needed: synergistic/potentiating Status: Pending Plan 1) Patient to f/u with PCP about restarting amlodipine. Follow up with [facility] Pharmacist: 1 yr, sooner as desired. Updated In[facility] med list and reviewed medications including indications with patient. Mirza Cheatham, PharmD, [facility] Billing Requirements: Recipient of visit: Patient Medicare CI: no Clinician location:home Patient location: home Billing based on time Total time spent with patient 31 - 45 min # of DTPs: 1 # of DTPs resolved: 0 documented in this encounter Plan of Treatment Upcoming Encounters Date Type Department Care Team Description 03/21/2024 10:15 AM SUMATRA OPENER Appointment [facility] [address] [place], [place] [phone] Marily Solis MD [address] [place] [phone] documented as of this encounter Visit Diagnoses Diagnosis Polypharmacy- Primary Issue of repeat prescriptions documented in this encounter
--- OUTSIDE RECORDS SUMMARY | 2023-03-21 10:46 | XMS_ITS | Encounter Summary ---
Author Name Unknown Organization [facility] Address [address] [place] [address] Care Team Providers Care Pattern Molder Name Role Phone Panchito Briones MD Primary Care Provider [phone] Encounter Details Date Type Department Care Team Description 07/09/1998 Office Visit [facility] Internal Medicine [place] [address] [facility] [place], [place] [phone] Rafi Morales MD [address] [place], [place] [address] ELEV BL PRES W/O HYPERTN Social History Tobacco Use Types Packs/Day Years Used Date Smoking Tobacco: Never Assessed Sex and Gender Information Value Date Recorded Sex Assigned at Not on file Gender Identity Not on file Sexual Orientation Not on file documented as of this encounter Plan of Treatment Upcoming Encounters Date Type Department Care Team Description 03/21/2024 10:15 AM PATIENT COMPANION Appointment [facility] [address] [place] [address] Marily Solis MD [address] [place] [address] documented as of this encounter Visit Diagnoses Diagnosis Elevated blood pressure reading without diagnosis of hypertension documented in this encounter Care Teams Pattern Molder Relationship Specialty Start Date End Date Panchito Briones MD [facility] [address] [place] [address] PCP - General Family Practice 11/23/22 documented as of this encounter
--- OUTSIDE RECORDS SUMMARY | 2023-03-21 10:46 | XMS_ITS | Encounter Summary ---
Author Name Unknown Organization [facility] Address [address] [place] [address] Care Team Providers Care Room Service Manager Name Role Phone Panchito Briones MD Primary Care Provider Encounter Details Date Type Department Care Team Description 11/27/1995 Orders Only Citlaly Harden MD [facility] [address] [place] [address] Social History Tobacco Use Types Packs/Day Years Used Date Smoking Tobacco: Never Assessed Sex and Gender Information Value Date Recorded Sex Assigned at Not on file Gender Identity Not on file Sexual Orientation Not on file documented as of this encounter Plan of Treatment Upcoming Encounters Date Type Department Care Team Description 03/21/2024 10:15 AM TOOL CLERK Appointment [facility] [address] [place], [place] [phone] Marily Solis MD [address] [place] [address] documented as of this encounter Visit Diagnoses Not on filedocumented in this encounter Care Teams Room Service Manager Relationship Specialty Start Date End Date Panchito Briones MD [facility] [address] [place] [address] PCP - General Family Practice 11/23/22 documented as of this encounter
--- OUTSIDE RECORDS SUMMARY | 2023-03-21 10:46 | XMS_ITS | Encounter Summary ---
Author Name Unknown Organization [facility] Address [address] [place] [address] Care Team Providers Care Compatibility Test Engineer Name Role Phone Panchito Briones MD Primary Care Provider Encounter Details Date Type Department Care Team Description 01/24/1996 Orders Only Lelia Lorenzana APRN, ASSEMBLING MOTOR BUILDER Social History Tobacco Use Types Packs/Day Years Used Date Smoking Tobacco: Never Assessed Sex and Gender Information Value Date Recorded Sex Assigned at Not on file Gender Identity Not on file Sexual Orientation Not on file documented as of this encounter Plan of Treatment Upcoming Encounters Date Type Department Care Team Description 03/21/2024 10:15 AM MANAGER DOCUMENTATION Appointment [facility] [address] [place] [address] Marily Solis MD [address] [place] [address] documented as of this encounter Visit Diagnoses Not on filedocumented in this encounter Care Teams Compatibility Test Engineer Relationship Specialty Start Date End Date Panchito Briones MD [facility] [address] [place] [address] PCP - General Family Practice 11/23/22 documented as of this encounter
--- OUTSIDE RECORDS SUMMARY | 2023-03-21 10:46 | XMS_ITS | Encounter Summary ---
Author Name Unknown Organization [facility] Address [address] [place] [address] Care Team Providers Care Lead Enterprise Architect Name Role Phone Panchito Briones MD Primary Care Provider [phone] Encounter Details Date Type Department Care Team Description 06/12/2002 [facility] Jimmie Lopez MD [address] [facility] 100 [place] [address] HYPERTENSION NOS Social History Tobacco Use Types [...] Department Care Team Description 03/21/2024 10:15 AM SALES MARKET LEADER Appointment [facility] [address] [place] [address] Marily Solis MD [address] [place] [address] documented as of this encounter Visit Diagnoses Diagnosis Unspecified essential hypertension (HRC) Unspecified essential hypertension documented in this encounter Care Teams Lead Enterprise Architect Relationship Specialty Start Date End Date Panchito Briones MD [facility] [address] [place] [address] PCP - General Family Practice 11/23/22 documented as of this encounter
--- OUTSIDE RECORDS SUMMARY | 2023-03-21 10:46 | XMS_ITS | Encounter Summary ---
Author Name Unknown Organization [facility] Address [address] [place] [address] Care Team Providers Care Commercial Litigation Attorney Name Role Phone Panchito Briones MD Primary Care Provider Encounter Details Date Type Department Care Team Description 02/15/1996 Orders Only Citlaly Harden MD [facility] [address] [place] [address] Social History Tobacco Use Types Packs/Day Years Used Date Smoking Tobacco: Never Assessed Sex and Gender Information Value Date Recorded Sex Assigned at Not on file Gender Identity Not on file Sexual Orientation Not on file documented as of this encounter Plan of Treatment Upcoming Encounters Date Type Department Care Team Description 03/21/2024 10:15 AM ABA THERAPIST Appointment [facility] [address] [place], [place] [address] Marily Solis MD [address] [place] [address] documented as of this encounter Visit Diagnoses Not on filedocumented in this encounter Care Teams Commercial Litigation Attorney Relationship Specialty Start Date End Date Panchito Briones MD [facility] [address] [place] [address] PCP - General Family Practice 11/23/22 documented as of this encounter
--- OUTSIDE RECORDS SUMMARY | 2023-03-21 10:46 | XMS_ITS | Encounter Summary ---
Author Name Unknown Organization [facility] Address [address] [place] [address] Care Team Providers Care Billet Worker Name Role Phone Panchito Briones MD Primary Care Provider Encounter Details Date Type Department Care Team Description 07/30/1998 Orders Only Citlaly Harden MD [facility] [address] [place] [address] Social History Tobacco Use Types Packs/Day Years Used Date Smoking Tobacco: Never Assessed Sex and Gender Information Value Date Recorded Sex Assigned at Not on file Gender Identity Not on file Sexual Orientation Not on file documented as of this encounter Plan of Treatment Upcoming Encounters Date Type Department Care Team Description 03/21/2024 10:15 AM DATABASE ADMIN Appointment [facility] [address] [place], [place] [address] Marily Solis MD [address] [place] [address] documented as of this encounter Visit Diagnoses Not on filedocumented in this encounter Care Teams Billet Worker Relationship Specialty Start Date End Date Panchito Briones MD [facility] [address] [place] [address] PCP - General Family Practice 11/23/22 documented as of this encounter
--- OUTSIDE RECORDS SUMMARY | 2023-03-21 10:46 | XMS_ITS | Encounter Summary ---
Author Name Unknown Organization [facility] Address [address] [place] [address] Care Team Providers Care Photographic Colorist Name Role Phone Panchito Briones MD Primary Care Provider Encounter Details Date Type Department Care Team Description 05/05/1995 Orders Only Deo Ardon MD [address] [place] [address] Social History Tobacco Use Types Packs/Day Years Used Date Smoking Tobacco: Never Assessed Sex and Gender Information Value Date Recorded Sex Assigned at Not on file Gender Identity Not on file Sexual Orientation Not on file documented as of this encounter Plan of Treatment Upcoming Encounters Date Type Department Care Team Description 03/21/2024 10:15 AM OIL WELL SERVICES SUPERVISOR Appointment [facility] [address] [place], [place] [phone] Marily Solis MD [address] [place], [place] 7[address] documented as of this encounter Visit Diagnoses Not on filedocumented in this encounter Care Teams Photographic Colorist Relationship Specialty Start Date End Date Panchito Briones MD [facility] [address] [place] [address] PCP - General Family Practice 11/23/22 documented as of this encounter
--- OUTSIDE RECORDS SUMMARY | 2023-03-21 10:46 | XMS_ITS | Encounter Summary ---
Author Name Unknown Organization [facility] Address [address] [place] [address] Care Team Providers Care Accounting Clerks Supervisor Name Role Phone Panchito Briones MD Primary Care Provider [phone] Encounter Details Date Type Department Care Team Description 12/21/1998 Orders Only Deo Ardon MD [address] [place] [address] Social History Tobacco Use Types Packs/Day Years Used Date Smoking Tobacco: Never Assessed Sex and Gender Information Value Date Recorded Sex Assigned at Not on file Gender Identity Not on file Sexual Orientation Not on file documented as of this encounter Plan of Treatment Upcoming Encounters Date Type Department Care Team Description 03/21/2024 10:15 AM SUPERVISOR FERTILIZER Appointment [facility] [address] [place], [place] [phone] Marily Solis MD [address] [place], [place] [address] documented as of this encounter Visit Diagnoses Not on filedocumented in this encounter Care Teams Accounting Clerks Supervisor Relationship Specialty Start Date End Date Panchito Briones MD [facility] [address] [place] [address] PCP - General Family Practice 11/23/22 documented as of this encounter
--- OUTSIDE RECORDS SUMMARY | 2023-03-21 10:46 | XMS_ITS | Encounter Summary ---
Author Name Unknown Organization [facility] Address [address] [place] [address] Care Team Providers Care Mash Processing Operator Name Role Phone Panchito Briones MD Primary Care Provider Encounter Details Date Type Department Care Team Description 04/13/1995 Orders Only Citlaly Harden MD [facility] [address] [place] [address] Social History Tobacco Use Types Packs/Day Years Used Date Smoking Tobacco: Never Assessed Sex and Gender Information Value Date Recorded Sex Assigned at Not on file Gender Identity Not on file Sexual Orientation Not on file documented as of this encounter Plan of Treatment Upcoming Encounters Date Type Department Care Team Description 03/21/2024 10:15 AM VAULT TELLER Appointment [facility] [address] [place], [place] [address] Marily Solis MD [address] [place] [address] documented as of this encounter Visit Diagnoses Not on filedocumented in this encounter Care Teams Mash Processing Operator Relationship Specialty Start Date End Date Panchito Briones MD [facility] [address] [place] [address] PCP - General Family Practice 11/23/22 documented as of this encounter
--- OUTSIDE RECORDS SUMMARY | 2023-03-21 10:46 | XMS_ITS | Encounter Summary ---
Author Name Unknown Organization [facility] Address [address] [place] [address] Care Team Providers Care Bargeman Name Role Phone Panchito Briones MD Primary Care Provider [phone] Encounter Details Date Type Department Care Team Description 06/10/2002 [facility], [address] [place], [place] [address] Adolfo Benito MD INTEST ADHES W OBSTR [...] Department Care Team Description 03/21/2024 10:15 AM RADIOISOTOPE TECHNOLOGIST Appointment [facility] [address] [place] [address] Marily Solis MD [address] [place], [place] [phone] documented as of this encounter Visit Diagnoses Diagnosis 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
--- OUTSIDE RECORDS SUMMARY | 2023-03-21 10:46 | XMS_ITS | Encounter Summary ---
Author Name Unknown Organization [facility] Address [address] [place] [address] Care Team Providers Care Field Nurse Case Manager Name Role Phone Panchito Briones MD Primary Care Provider Encounter Details Date Type Department Care Team Description 10/30/1996 Orders Only Citlaly Harden MD [facility] [address] [place] [address] Social History Tobacco Use Types Packs/Day Years Used Date Smoking Tobacco: Never Assessed Sex and Gender Information Value Date Recorded Sex Assigned at Not on file Gender Identity Not on file Sexual Orientation Not on file documented as of this encounter Plan of Treatment Upcoming Encounters Date Type Department Care Team Description 03/21/2024 10:15 AM FORGE HAND Appointment [facility] [address] [place], [place] [phone] Marily Solis MD [address] [place] [address] documented as of this encounter Visit Diagnoses Not on filedocumented in this encounter Care Teams Field Nurse Case Manager Relationship Specialty Start Date End Date Panchito Briones MD [facility] [address] [place] [address] PCP - General Family Practice 11/23/22 documented as of this encounter
--- OUTSIDE RECORDS SUMMARY | 2023-03-21 10:46 | XMS_ITS | Encounter Summary ---
Author Name Unknown Organization [facility] Address [address] [place] [address] Care Team Providers Care Tax Assessor Name Role Phone Panchito Briones MD Primary Care Provider [phone] Encounter Details Date Type Department Care Team Description 06/13/2002 [facility] Jimmie Lopez MD [address] [facility] 100 [place] [address] HYPERTENSION NOS Social History Tobacco [...] Department Care Team Description 03/21/2024 10:15 AM SPORTS PHYSICIAN Appointment [facility] [address] [place] [address] Marily Solis MD [address] [place] [address] documented as of this encounter Visit Diagnoses Diagnosis Unspecified essential hypertension (HRC) Unspecified essential hypertension documented in this encounter Care Teams Tax Assessor Relationship Specialty Start Date End Date Panchito Briones MD [facility] [address] [place] [address] PCP - General Family Practice 11/23/22 documented as of this encounter
--- OUTSIDE RECORDS SUMMARY | 2023-03-21 10:46 | XMS_ITS | Encounter Summary ---
Author Name Unknown Organization [facility] Address [address] [place] [address] Care Team Providers Care Mainframe Systems Programmer Name Role Phone Panchito Briones MD Primary Care Provider [phone] Encounter Details Date Type Department Care Team [...] Department Care Team Description 03/21/2024 10:15 AM TRIAL ATTORNEY Appointment [facility] [address] [place] [address] Marily Solis MD [facility]0 [place] [address] documented as of this encounter Visit Diagnoses Not on filedocumented in this encounter Care Teams Mainframe Systems Programmer Relationship Specialty Start Date End Date Panchito Briones MD [facility] [address] [place] [address] PCP - General Family Practice 11/23/22 documented as of this encounter
--- OUTSIDE RECORDS SUMMARY | 2023-03-21 10:46 | XMS_ITS | Encounter Summary ---
Author Name Unknown Organization [facility] Address [address] [place] [address] Care Team Providers Care Administrative Services Assistant Name Role Phone Panchito Briones MD Primary Care Provider [phone] Encounter Details Date Type Department Care Team Description 03/21/1997 Orders Only Citlaly Harden MD [facility] [address] [place] [address] Social History Tobacco Use Types Packs/Day Years Used Date Smoking Tobacco: Never Assessed Sex and Gender Information Value Date Recorded Sex Assigned at Not on file Gender Identity Not on file Sexual Orientation Not on file documented as of this encounter Plan of Treatment Upcoming Encounters Date Type Department Care Team Description 03/21/2024 10:15 AM BLASTING HELPER Appointment [facility] [address] [place], [place] [address] Marily Solis MD [address] [place] [address] documented as of this encounter Visit Diagnoses Not on filedocumented in this encounter Care Teams Administrative Services Assistant Relationship Specialty Start Date End Date Panchito Briones MD [facility] [address] [place] [address] PCP - General Family Practice 11/23/22 documented as of this encounter
--- OUTSIDE RECORDS SUMMARY | 2023-03-21 10:46 | XMS_ITS | Encounter Summary ---
Author Name Unknown Organization [facility] Address [address] [place] [address] Care Team Providers Care Crop Roller Name Role Phone Panchito Briones MD Primary Care Provider Encounter Details Date Type Department Care Team Description 06/11/2002 [facility] Jimmie Lopez MD [address] [facility] 100 [place] [address] HYPERTENSION NOS Social History Tobacco [...] Department Care Team Description 03/21/2024 10:15 AM MACHINE SNELLER Appointment [facility] [address] [place] [address] Marily Solis MD [address] [place] [address] documented as of this encounter Visit Diagnoses Diagnosis Unspecified essential hypertension (HRC) Unspecified essential hypertension documented in this encounter Care Teams Crop Roller Relationship Specialty Start Date End Date Panchito Briones MD [facility] [address] [place] [address] PCP - General Family Practice 11/23/22 documented as of this encounter
--- OUTSIDE RECORDS SUMMARY | 2023-03-21 10:46 | XMS_ITS | Encounter Summary ---
Author Name Unknown Organization [facility] Address [address] [place] [address] Care Team Providers Care Grade And Center Marker Name Role Phone Panchito Briones MD Primary Care Provider [phone] Encounter Details Date Type Department Care Team Description 03/17/1998 Orders Only Yumiko Blackburn MD [address] [place], [place] [address] Social History Tobacco Use Types Packs/Day Years Used Date Smoking Tobacco: Never Assessed Sex and Gender Information Value Date Recorded Sex Assigned at Not on file Gender Identity Not on file Sexual Orientation Not on file documented as of this encounter Plan of Treatment Upcoming Encounters Date Type Department Care Team Description 03/21/2024 10:15 AM TOP TAPER MACHINE Appointment [facility] [address] [place], [place] [phone] Marily Solis MD [address] [place], [place] [address] documented as of this encounter Visit Diagnoses Not on filedocumented in this encounter Care Teams Grade And Center Marker Relationship Specialty Start Date End Date Panchito Briones MD [facility] [address] [place] [address] PCP - General Family Practice 11/23/22 documented as of this encounter
--- OUTSIDE RECORDS SUMMARY | 2023-03-21 10:46 | XMS_ITS | Encounter Summary ---
Author Name Unknown Organization [facility] Address [address] [place] [address] Care Team Providers Care Gas Maker Name Role Phone Panchito Briones MD Primary Care Provider Encounter Details Date Type Department Care Team Description 06/10/2002 [facility], [address] [address], [place] [address] Adolfo Benito MD INTEST ADHES W OBSTR [...] Department Care Team Description 03/21/2024 10:15 AM REAL ESTATE INVESTMENT ANALYST Appointment [facility] [address] [place] [address] Marily Solis MD [address] [place], [place] [phone] documented as of this encounter Visit Diagnoses Diagnosis 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
--- OUTSIDE RECORDS SUMMARY | 2023-03-21 10:46 | XMS_ITS | Encounter Summary ---
Author Name Unknown Organization [facility] Address [address] [place] [address] Care Team Providers Care Yard Brakeman Name Role Phone Panchito Briones MD Primary Care Provider [phone] Encounter Details Date Type Department Care Team Description 06/14/2002 Hospital None Unknown, Physician [address] [place], [place] [address] [facility] DISCHARGE SUMMARY Social History Tobacco Use Types [...] Department Care Team Description 03/21/2024 10:15 AM WAREHOUSE FOREMAN Appointment [facility] [address] [place], [place] [address] Marily Solis MD [address] [place] [address] documented as of this encounter Visit Diagnoses Not on filedocumented in this encounter Care Teams Yard Brakeman Relationship Specialty Start Date End Date Panchito Briones MD [facility] [address] [place] [address] PCP - General Family Practice 11/23/22 documented as of this encounter
--- OUTSIDE RECORDS SUMMARY | 2023-03-21 10:46 | XMS_ITS | Encounter Summary ---
Author Name Unknown Organization [facility] Address [address] [place] [address] Care Team Providers Care Processing Lead Name Role Phone Panchito Briones MD Primary Care Provider Encounter Details Date Type Department Care Team Description 02/14/1997 Orders Only Deo Ardon MD [address] [place] [address] Social History Tobacco Use Types Packs/Day Years Used Date Smoking Tobacco: Never Assessed Sex and Gender Information Value Date Recorded Sex Assigned at Not on file Gender Identity Not on file Sexual Orientation Not on file documented as of this encounter Plan of Treatment Upcoming Encounters Date Type Department Care Team Description 03/21/2024 10:15 AM PERSONNEL ASSISTANT Appointment [facility] [address] [place], [place] [phone] Marily Solis MD [address] [place], [place] [address] documented as of this encounter Visit Diagnoses Not on filedocumented in this encounter Care Teams Processing Lead Relationship Specialty Start Date End Date Panchito Briones MD [facility] [address] [place] [address] PCP - General Family Practice 11/23/22 documented as of this encounter
--- OUTSIDE RECORDS SUMMARY | 2023-03-21 10:46 | XMS_ITS | Encounter Summary ---
Author Name Unknown Organization [facility] Address [address] [place] [address] Care Team Providers Care Buffing Machine Tender Name Role Phone Panchito Briones MD Primary Care Provider [phone] Encounter Details Date Type Department Care Team Description 06/12/2002 Hospital None Unknown, Physician [address] [place], [place] [address] [facility] OPERATIVE REPORT Social History Tobacco Use Types [...] Department Care Team Description 03/21/2024 10:15 AM FRICTION SAW OPERATOR Appointment [facility] [address] [place], [place] [address] Marily Solis MD [address] [place] [address] documented as of this encounter Visit Diagnoses Not on filedocumented in this encounter Care Teams Buffing Machine Tender Relationship Specialty Start Date End Date Panchito Briones MD [facility] [address] [place] [address] PCP - General Family Practice 11/23/22 documented as of this encounter
--- OUTSIDE RECORDS SUMMARY | 2023-03-21 10:46 | XMS_ITS | Encounter Summary ---
Author Name Unknown Organization [facility] Address [address] [place] [address] Care Team Providers Care Epic Cadence Specialists Name Role Phone Panchito Briones MD Primary Care Provider [phone] Encounter Details Date Type Department Care Team Description 03/14/1996 Orders Only Citlaly Harden MD [facility] [address] [place] [address] Social History Tobacco Use Types Packs/Day Years Used Date Smoking Tobacco: Never Assessed Sex and Gender Information Value Date Recorded Sex Assigned at Not on file Gender Identity Not on file Sexual Orientation Not on file documented as of this encounter Plan of Treatment Upcoming Encounters Date Type Department Care Team Description 03/21/2024 10:15 AM BUNDLING MACHINE OPERATOR Appointment [facility] [address] [place], [place] [address] Marily Solis MD [address] [place] [address] documented as of this encounter Visit Diagnoses Not on filedocumented in this encounter Care Teams Epic Cadence Specialists Relationship Specialty Start Date End Date Panchito Briones MD [facility] [address] [place] [address] PCP - General Family Practice 11/23/22 documented as of this encounter
--- OUTSIDE RECORDS SUMMARY | 2023-03-21 10:46 | XMS_ITS | Encounter Summary ---
Author Name Unknown Organization [facility] Address [address] [place] [address] Care Team Providers Care Director Merit System Name Role Phone Panchito Briones MD Primary Care Provider Encounter Details Date Type Department Care Team Description 01/31/1996 Orders Only Citlaly Harden MD [facility] [address] [place] [address] Social History Tobacco Use Types Packs/Day Years Used Date Smoking Tobacco: Never Assessed Sex and Gender Information Value Date Recorded Sex Assigned at Not on file Gender Identity Not on file Sexual Orientation Not on file documented as of this encounter Plan of Treatment Upcoming Encounters Date Type Department Care Team Description 03/21/2024 10:15 AM HUMAN RESOURCES BENEFITS ADMINISTRATOR Appointment [facility] [address] [place], [place] [address] Marily Solis MD [address] [place] [address] documented as of this encounter Visit Diagnoses Not on filedocumented in this encounter Care Teams Director Merit System Relationship Specialty Start Date End Date Panchito Briones MD [facility] [address] [place] [address] PCP - General Family Practice 11/23/22 documented as of this encounter
--- OUTSIDE RECORDS SUMMARY | 2023-03-21 10:46 | XMS_ITS | Encounter Summary ---
Author Name Unknown Organization [facility] Address [address] [place] [address] Care Team Providers Care Load Test Mechanic Name Role Phone Panchito Briones MD Primary Care Provider Encounter Details Date Type Department Care Team Description 04/19/1999 Orders Only Herson Gallagher, DDS [address] [place] [address] Social History Tobacco Use Types Packs/Day Years Used Date Smoking Tobacco: Never Assessed Sex and Gender Information Value Date Recorded Sex Assigned at Not on file Gender Identity Not on file Sexual Orientation Not on file documented as of this encounter Plan of Treatment Upcoming Encounters Date Type Department Care Team Description 03/21/2024 10:15 AM TOPOGRAPHICAL FIELD ASSISTANT Appointment [facility] [address] [place], [place] [phone] Marily Solis MD [address] [place], [place] [phone] documented as of this encounter Visit Diagnoses Not on filedocumented in this encounter Care Teams Load Test Mechanic Relationship Specialty Start Date End Date Panchito Briones MD [facility] [address] [place] [address] PCP - General Family Practice 11/23/22 documented as of this encounter
--- OUTSIDE RECORDS SUMMARY | 2023-03-21 10:46 | XMS_ITS | Encounter Summary ---
Author Name Unknown Organization [facility] Address [address] [place] [address] Care Team Providers Care Plant Inspector Name Role Phone Panchito Briones MD Primary Care Provider [phone] Encounter Details Date Type Department Care Team Description 07/26/1995 Orders Only Yumiko Blackburn MD [address] [place], [place] [phone] Social History Tobacco Use Types Packs/Day Years Used Date Smoking Tobacco: Never Assessed Sex and Gender Information Value Date Recorded Sex Assigned at Not on file Gender Identity Not on file Sexual Orientation Not on file documented as of this encounter Plan of Treatment Upcoming Encounters Date Type Department Care Team Description 03/21/2024 10:15 AM TRICOT KNITTING MACHINE OPERATOR Appointment [facility] [address] [place], [place] [phone] Marily Solis MD [address] [place], [place] [phone] documented as of this encounter Visit Diagnoses Not on filedocumented in this encounter Care Teams Plant Inspector Relationship Specialty Start Date End Date Panchito Briones MD [facility] [address] [place] [address] PCP - General Family Practice 11/23/22 documented as of this encounter
--- OUTSIDE RECORDS SUMMARY | 2023-03-21 10:47 | XMS_ITS | Encounter Summary ---
Author Name Unknown Organization [facility] Address [address] [place] [address] Care Team Providers Care Director Operating Room Name Role Phone Panchito Briones MD Primary Care Provider [phone] Encounter Details Date Type Department Care Team Description 03/23/1995 Orders Only Citlaly Harden MD [facility] [address] [place] [address] Social History Tobacco Use Types Packs/Day Years Used Date Smoking Tobacco: Never Assessed Sex and Gender Information Value Date Recorded Sex Assigned at Not on file Gender Identity Not on file Sexual Orientation Not on file documented as of this encounter Plan of Treatment Upcoming Encounters Date Type Department Care Team Description 03/21/2024 10:15 AM DIRECTOR BUSINESS Appointment [facility] [address] [place], [place] [address] Marily Solis MD [address] [place] [phone] documented as of this encounter Visit Diagnoses Not on filedocumented in this encounter Care Teams Director Operating Room Relationship Specialty Start Date End Date Panchito Briones MD [facility] [address] [place] [address] PCP - General Family Practice 11/23/22 documented as of this encounter
--- OUTSIDE RECORDS SUMMARY | 2023-03-21 10:47 | XMS_ITS | Encounter Summary ---
Author Name Unknown Organization [facility] Address [address] [place] [address] Care Team Providers Care Prescription Clerk Name Role Phone Panchito Briones MD Primary Care Provider Encounter Details Date Type Department Care Team Description 05/12/1994 Orders Only Citlaly Harden MD [facility] [address] [place] [place] [address] Social History Tobacco Use Types Packs/Day Years Used Date Smoking Tobacco: Never Assessed Sex and Gender Information Value Date Recorded Sex Assigned at Not on file Gender Identity Not on file Sexual Orientation Not on file documented as of this encounter Plan of Treatment Upcoming Encounters Date Type Department Care Team Description 03/21/2024 10:15 AM RESIDENT IN DIAGNOSTIC RADIOLOGY Appointment [facility] [address] [place], [place] [phone] Marily Solis MD [address] [place] [phone] documented as of this encounter Visit Diagnoses Not on filedocumented in this encounter Care Teams Prescription Clerk Relationship Specialty Start Date End Date Panchito Briones MD [facility] [address] [place] [address] PCP - General Family Practice 11/23/22 documented as of this encounter
--- OUTSIDE RECORDS SUMMARY | 2023-03-21 10:47 | XMS_ITS | Encounter Summary ---
Author Name Unknown Organization [facility] Address [address] [place] [address] Care Team Providers Care Emergency Room Registered Nurse Name Role Phone Panchito Briones MD Primary Care Provider [phone] Encounter Details Date Type Department Care Team Description 06/20/1994 Orders Only Citlaly Harden MD [facility] [address] [place] [address] Social History Tobacco Use Types Packs/Day Years Used Date Smoking Tobacco: Never Assessed Sex and Gender Information Value Date Recorded Sex Assigned at Not on file Gender Identity Not on file Sexual Orientation Not on file documented as of this encounter Plan of Treatment Upcoming Encounters Date Type Department Care Team Description 03/21/2024 10:15 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
--- NOTE | 2023-03-21 11:15 | CRLHL7_ITS ---
For Patients: As a result of the Century Cures Act, medical imaging exams and procedure reports are released immediately into your electronic medical record. You may view this report before your referring provider. If you have questions, please contact your health care provider. Please see diagnostic RIGHT breast mammogram for combined diagnostic mammogram/ultrasound report. DW/Dictated by: Pedro Matos MD @ 03/21/2023 11:55:00 AM (Electronically Signed)
== END 2023-03-21 10:28 | disposition home or self-care (01) ==
LOC: MAMMO 10:27
PROVIDERS: PCP Family Medicine; Visit Provider Family Medicine
DX: N63.10 Unspecified lump in the right breast, unspecified quadrant (principal); R92.8 Other abnormal and inconclusive findings on diagnostic imaging of breast
CPT/HCPCS: 76642; 77065; G0279

== ENCOUNTER 2023-05-10 14:46 | Emergency (ER) | payer OTHER, SELFPAY ==
[2023-05-10] VITALS (32 sets, daily range): BP systolic 103–144; BP diastolic 65–77; PULSE 87–120; RESP 20–24; TEMP 36.6–37.7; O2SAT 90–98; BMI 34.8
[2023-05-10 15:37] LABS: Hematocrit 26.7 % (33.0-51.0); Hemoglobin* 8.6 gm/dL (12.0-16.0); Mean Corpuscular HGB Conc 32 gm/dL (32-36); Mean Corpuscular Hemoglobin 34 pg (26-34); Mean Corpuscular Volume 104 fL (80-100); RDW Coefficient of Variation % 18.5 % (11.5-15.5); Red Blood Count 2.56 m/uL (4.00-5.20)
[2023-05-10 15:49] LABS: Albumin* 3.1 g/dL (3.3-5.0)
[2023-05-10 15:50] LABS: Chloride* 104 mmol/L (96-114); Potassium* 3.4 mmol/L (3.6-5.1); Sodium* 137 mmol/L (135-149)
--- NOTE | 2023-05-10 15:51 | ED_ITS ---
HPI - General Adult General Date Seen: 05/10/23 Chief complaint: Weakness Stated complaint: weak, needs transfusion Time Seen by Provider: 05/10/23 14:52 Source: patient, family, RN notes reviewed and old records reviewed Mode of arrival: ambulatory Limitations: no limitations History of Present Illness HPI narrative: Patient is a 77-year-old woman with underlying multiple myeloma, status post bone marrow transplant with recurrence of disease about 6 weeks ago. She is managed at [facility], she was admitted to the hospital there at the end of March for plans to do 5 days of chemotherapy in the hospital. She was found to be COVID positive and received remdesivir 1st. She then underwent therapy with vd- KIANNA. She had a PICC line which was removed a couple of days ago. It is noted with this therapy that she will have pancytopenia and neutropenia and would require some degree of transfusion support. She was discharged from the hospital several days ago. She received a call today after having labs drawn that her platelets were critically low at 5000 and she should come to the hospital for transfusion. She reports no bleeding problems, she has not had blood in her urine, bleeding gums, significant bruising etcetera. She has ongoing fatigue but no other acute symptoms. She has not had fevers. Related Data Home Medications Medication Instructions Recorded Confirmed cyanocobalamin (vitamin B-12) 1,000 mcg PO DAILY 08/23/21 05/10/23 1,000 mcg capsule omeprazole 20 mg capsule,delayed 20 mg PO DIRECTED 08/23/21 11/22/22 release prochlorperazine maleate 10 mg 10 mg PO Q4-6H PRN 08/23/21 05/10/23 tablet aspirin 325 mg capsule 325 mg PO DAILY 08/16/22 11/22/22 lenalidomide 10 mg capsule PO 08/16/22 11/22/22 (Revlimid) magnesium chloride 71.5 mg 143 mg PO QAM 08/16/22 11/22/22 (magnesium chloride) tablet,delayed release (Slow-Mag) penicillin V potassium 500 mg 500 mg PO BID 08/16/22 11/22/22 tablet acyclovir 200 mg capsule 400 mg PO BID 11/22/22 05/10/23 bortezomib 3.5 mg injection powder 2.4 mg IV 2XW 11/22/22 11/22/22 for solution (Velcade) Calcium + Vitamin D 05/10/23 Slow-Mag 05/10/23 fluconazole 200 mg tablet 200 mg PO DAILY 05/10/23 05/10/23 levofloxacin 250 mg tablet 250 mg PO DAILY 05/10/23 05/10/23 olanzapine 5 mg tablet 5 mg PO QPM 05/10/23 05/10/23 sulfamethoxazole 400 1 tab PO DAILY 05/10/23 05/10/23 mg-trimethoprim 80 mg tablet Previous Rx's Medication Instructions Recorded Walker- 4 Wheels #1 ea 08/31/21 potassium chloride 10 mEq 10 meq PO QDAY #90 tabs 12/31/21 tablet,extended release metformin 500 mg tablet See Rx Instructions .Route 04/25/22 .COMPLEX #270 tabs ipratropium 0.5 mg-albuterol 3 mg 3 ml inhalation Q6H PRN wheezing 08/18/22 (2.5 mg base)/3 mL nebulization #90 mL soln lorazepam 0.5 mg tablet 0.5 mg PO BID PRN anxiety #60 tabs 02/28/23 hydrochlorothiazide 12.5 mg tablet 12.5 mg PO QDAY #90 tabs 03/28/23 atenolol 50 mg tablet 75 mg (1.5 x 50 mg) PO BID #135 04/21/23 tabs lisinopril 40 mg tablet See Rx Instructions .Route 04/21/23 .COMPLEX #90 tabs Allergies Allergy/AdvReac Type Severity Reaction Status Date / Time adhesive Allergy Unknown Rash Verified 11/22/22 14:41 [facility] Medical History (Updated 05/10/23 @ 19:15 by Rosmery Figueroa MD) COVID-19 ?U07.1 - COVID-19 (ICD-10) History of basal cell carcinoma (BCC) (04/2015) ?Z85.828 - Personal history of other malignant neoplasm of skin (ICD-10) Surgical History (Updated 11/22/22 @ 16:17 by Caleb Arredondo PA-C) S/P bone marrow transplant ?Z94.81 - Bone marrow transplant status (ICD-10) History of tonsillectomy ?Z90.89 - Acquired absence of other organs (ICD-10) History of cholecystectomy (1996) ?Z90.49 - Acquired absence of other specified parts of digestive tract (ICD- 10) History of abdominoplasty (2006) ?Z98.890 - Other specified postprocedural states (ICD-10) Family History Other Melanoma Social History Smoking Status: Former smoker Do you use any of these nicotine containing products: None Second hand tobacco smoke exposure: No How often do you have a drink containing alcohol: never How often do you have six or more drinks on one occasion: Never AUDIT-C Alcohol total score: 0 Non-prescribed substance use: denies use service: No Exam Narrative: Exam Narrative: Vital signs as noted above. In general, an alert, well-appearing patient. Head: Normocephalic, atraumatic. Eyes: Pupils are equal reactive. Extraocular movements are full. Conjunctivae are normal. ENT: Mucous membranes are moist. Throat is normal. Neck: Supple without lymphadenopathy. Heart: Tachycardic, regular. No significant murmur. Lungs: Clear bilaterally. No increased work of breathing, crackles or wheezes. Abdomen: Soft and nontender. No organomegaly. Extremities: Well perfused. No edema. No calf tenderness. Pulses intact. Neurologic: Patient is alert and oriented to person and place. Speech is fluent. Face is symmetric. Moves all extremities equally. Affect: Normal. Skin: Warm and dry. Well perfused. No bruising or purpura. Const: Vital Signs, click to edit/add: Vital Signs - 24 hr 05/10/23 14:52 05/10/23 15:26 05/10/23 15:30 Temperature 97.9 F Pulse Rate 107 H 107 H Pulse Rate [Pulse Oximeter] 120 H Respiratory Rate 20 Blood Pressure Blood Pressure [Ri ght Upper Arm] 103/68 Pulse Oximetry 97 96 94 Oxygen Delivery Me thod Room Air 05/10/23 15:45 05/10/23 16:00 05/10/23 16:15 Temperature Pulse Rate 97 95 93 Pulse Rate [Pulse Oximeter] Respiratory Rate Blood Pressure Blood Pressure [Ri ght Upper Arm] Pulse Oximetry 93 93 96 Oxygen Delivery Me thod 05/10/23 16:30 05/10/23 16:45 05/10/23 16:48 Temperature 98.7 F Pulse Rate 92 92 Pulse Rate [Pulse Oximeter] 97 Respiratory Rate 22 Blood Pressure Blood Pressure [Ri ght Upper Arm] 126/68 Pulse Oximetry 94 94 96 Oxygen Delivery Me thod Room Air 05/10/23 16:52 05/10/23 17:00 05/10/23 17:15 Temperature Pulse Rate 101 H 98 87 Pulse Rate [Pulse Oximeter] Respiratory Rate Blood Pressure 126/68 Blood Pressure [Ri ght Upper Arm] Pulse Oximetry 96 95 95 Oxygen Delivery Me thod 05/10/23 17:30 05/10/23 17:45 05/10/23 18:00 Temperature Pulse Rate 95 90 89 Pulse Rate [Pulse Oximeter] Respiratory Rate Blood Pressure Blood Pressure [Ri ght Upper Arm] Pulse Oximetry 98 92 93 Oxygen Delivery Me thod 05/10/23 18:42 05/10/23 18:44 05/10/23 18:44 Temperature 100 F H Pulse Rate 93 92 Pulse Rate [Pulse Oximeter] Respiratory Rate 24 Blood Pressure 143/77 H 143/77 H Blood Pressure [Ri ght Upper Arm] Pulse Oximetry 97 97 Oxygen Delivery Me thod 05/10/23 18:45 05/10/23 18:48 05/10/23 19:00 Temperature 98.6 F Pulse Rate 90 92 94 Pulse Rate [Pulse Oximeter] Respiratory Rate 24 Blood Pressure 143/72 H Blood Pressure [Ri ght Upper Arm] Pulse Oximetry 95 97 97 Oxygen Delivery Me thod 05/10/23 19:03 05/10/23 19:04 05/10/23 19:15 Temperature Pulse Rate 90 93 89 Pulse Rate [Pulse Oximeter] Respiratory Rate Blood Pressure 139/69 143/72 H Blood Pressure [Ri ght Upper Arm] Pulse Oximetry 96 96 91 Oxygen Delivery Me thod 05/10/23 19:30 05/10/23 19:45 05/10/23 19:50 Temperature 98.2 F Pulse Rate 90 90 Pulse Rate [Pulse Oximeter] Respiratory Rate Blood Pressure Blood Pressure [Ri ght Upper Arm] Pulse Oximetry 90 90 Oxygen Delivery Me thod 05/10/23 19:50 05/10/23 19:59 05/10/23 20:00 Temperature Pulse Rate 94 92 90 Pulse Rate [Pulse Oximeter] Respiratory Rate Blood Pressure 139/69 Blood Pressure [Ri ght Upper Arm] Pulse Oximetry 92 96 92 Oxygen Delivery Me thod 05/10/23 20:15 05/10/23 20:18 05/10/23 20:20 Temperature 98.2 F Pulse Rate 91 89 Pulse Rate [Pulse Oximeter] Respiratory Rate Blood Pressure 143/65 H Blood Pressure [Ri ght Upper Arm] Pulse Oximetry 94 95 Oxygen Delivery Me thod Documenting provider has reviewed patient's vital signs: yes Course Course ED Course: Following initial evaluation, patient had an EKG which by my review shows a sinus tachycardia, ventricular rate of 108. No acute ST segment changes, T- waves are unremarkable. I have ordered labs here, did review her records from [facility] including today's labs which showed a hemoglobin of 9, platelet count of 5000. Interestingly, I do not see a total white blood cell count but there is a breakdown that shows less than 30 neutrophils. Labs here confirm markedly low platelets at 5000, total white blood cell count is 0.05 with essentially no neutrophils. Hemoglobin is low at 8.6, but fairly stable relative to yesterday when it was 9. Metabolic panel shows normal creatinine of 1.1, electrolytes are within normal limits, LFTs unremarkable. I did speak with Dr. Zhu, on-call for Hematology at [facility]. They are aware of this patient, apparently there was some miscommunication as to how this was supposed to be handled. Case Loader Operator says that they will arrange for future care down at [facility] as significant thrombocytopenia, anemia and neutropenia were all anticipated. She will make an appointment for the patient to be seen for blood draw and further therapies done at [facility] tomorrow. For today, we will transfuse platelets. She is not showing any signs of active bleeding or infection. Platelet transfusion complete, tolerated well. Discharged home, follow up tomorrow [facility]'s plan. Vital Signs Vital signs: Initial Vital Signs Temperature 97.9 F 05/10/23 14:52 Temperature Source Temporal Artery Scan 05/10/23 14:52 Pulse Rate 120 H 05/10/23 14:52 Respiratory Rate 20 05/10/23 14:52 Blood Pressure 103/68 05/10/23 14:52 Blood Pressure Mean 79 05/10/23 14:52 Blood Pressure Position Supine 05/10/23 14:52 Pulse Oximetry 97 05/10/23 14:52 Oxygen Delivery Method Room Air 05/10/23 14:52 Vital Signs Temperature 97.9 F 05/10/23 14:52 Pulse Rate 120 H 05/10/23 14:52 Respiratory Rate 20 05/10/23 14:52 Blood Pressure 103/68 05/10/23 14:52 Pulse Oximetry 97 05/10/23 14:52 Oxygen Delivery Method Room Air 05/10/23 14:52 Temperature 98.2 F 05/10/23 20:20 Pulse Rate 89 05/10/23 20:18 Respiratory Rate 24 05/10/23 18:48 Blood Pressure 143/65 H 05/10/23 20:18 Pulse Oximetry 95 05/10/23 20:18 Oxygen Delivery Method Room Air 05/10/23 16:48 Medical Decision Making Lab Data Labs: Lab Results 05/10/23 05/10/23 05/10/23 Range/Units 15:24 15:24 15:24 WBC 0.05 L* (4.50-11.00) K/uL RBC 2.56 L (4.00-5.20) m/uL Hgb 8.6 L (12.0-16.0) gm/dL Hct 26.7 L (33.0-51.0) % MCV 104 H (80-100) fL MCH 34 (26-34) pg MCHC 32 (32-36) gm/dL RDW Coeff of Randee 18.5 H (11.5-15.5) % Plt Count 5 L* (140-440) K/uL Neut % (Auto) 20.0 L (42.0-72.0) % Lymph % (Auto) 80.0 H (20-44) % Pickett % (Auto) 0.0 (0.0-11.0) % Eos % (Auto) 0.0 (0.0-7.0) % Baso % (Auto) 0.0 (0.0-3.0) % Neut # (Auto) 0.00 L (1.7-7.0) K/uL Lymph # (Auto) 0.00 L (0.90-2.90) K/uL Pickett # (Auto) 0.00 (0.00-0.90) K/UL Eos # (Auto) 0.00 (0.00-0.50) K/uL Baso # (Auto) 0.00 (0.00-0.30) K/uL Abs Immat Gran (auto) 0.00 (0.00-0.30) K/uL Imm/Tot Granulo (auto) 0.0 % Diff Slide Review Acceptable Review (Acceptable) Sodium 137 (135-149) mmol/L Potassium 3.4 L (3.6-5.1) mmol/L Chloride 104 (96-114) mmol/L Carbon Dioxide 28 (20-32) mmol/L Anion Gap 5 L (7-15) mEq/L BUN 35 H (7-30) mg/dL Creatinine 1.1 (0.5-1.5) mg/dL Estimated Creat Clear 34.95 Estimated GFR 52 ml/min Glucose 114 (60-115) mg/dL Calcium 8.7 (8.4-10.6) mg/dL Total Bilirubin 0.4 Cancelled (0.1-1.5) mg/dL Direct Bilirubin 0.2 Cancelled (0.0-0.5) mg/dL AST 16 (12-35) U/L ALT (4-35) U/L Alkaline Phosphatase (40-150) U/L Total Protein (6.0-8.3) g/dL Albumin (3.3-5.0) g/dL Blood Type Antibody Screen 05/10/23 05/10/23 05/10/23 Range/Units 15:24 15:24 15:24 WBC (4.50-11.00) K/uL RBC (4.00-5.20) m/uL Hgb (12.0-16.0) gm/dL Hct (33.0-51.0) % MCV (80-100) fL MCH (26-34) pg MCHC (32-36) gm/dL RDW Coeff of Randee (11.5-15.5) % Plt Count (140-440) K/uL Neut % (Auto) (42.0-72.0) % Lymph % (Auto) (20-44) % Pickett % (Auto) (0.0-11.0) % Eos % (Auto) (0.0-7.0) % Baso % (Auto) (0.0-3.0) % Neut # (Auto) (1.7-7.0) K/uL Lymph # (Auto) (0.90-2.90) K/uL Pickett # (Auto) (0.00-0.90) K/UL Eos # (Auto) (0.00-0.50) K/uL Baso # (Auto) (0.00-0.30) K/uL Abs Immat Gran (auto) (0.00-0.30) K/uL Imm/Tot Granulo (auto) % Diff Slide Review (Acceptable) Sodium (135-149) mmol/L Potassium (3.6-5.1) mmol/L Chloride (96-114) mmol/L Carbon Dioxide (20-32) mmol/L Anion Gap (7-15) mEq/L BUN (7-30) mg/dL Creatinine (0.5-1.5) mg/dL Estimated Creat Clear Estimated GFR ml/min Glucose (60-115) mg/dL Calcium (8.4-10.6) mg/dL Total Bilirubin (0.1-1.5) mg/dL Direct Bilirubin (0.0-0.5) mg/dL AST Cancelled (12-35) U/L ALT 19 Cancelled (4-35) U/L Alkaline Phosphatase 44 Cancelled (40-150) U/L Total Protein 6.0 (6.0-8.3) g/dL Albumin (3.3-5.0) g/dL Blood Type Antibody Screen 05/10/23 05/10/23 Range/Units 15:24 15:24 WBC (4.50-11.00) K/uL RBC (4.00-5.20) m/uL Hgb (12.0-16.0) gm/dL Hct (33.0-51.0) % MCV (80-100) fL MCH (26-34) pg MCHC (32-36) gm/dL RDW Coeff of Randee (11.5-15.5) % Plt Count (140-440) K/uL Neut % (Auto) (42.0-72.0) % Lymph % (Auto) (20-44) % Pickett % (Auto) (0.0-11.0) % Eos % (Auto) (0.0-7.0) % Baso % (Auto) (0.0-3.0) % Neut # (Auto) (1.7-7.0) K/uL Lymph # (Auto) (0.90-2.90) K/uL Pickett # (Auto) (0.00-0.90) K/UL Eos # (Auto) (0.00-0.50) K/uL Baso # (Auto) (0.00-0.30) K/uL Abs Immat Gran (auto) (0.00-0.30) K/uL Imm/Tot Granulo (auto) % Diff Slide Review (Acceptable) Sodium (135-149) mmol/L Potassium (3.6-5.1) mmol/L Chloride (96-114) mmol/L Carbon Dioxide (20-32) mmol/L Anion Gap (7-15) mEq/L BUN (7-30) mg/dL Creatinine (0.5-1.5) mg/dL Estimated Creat Clear Estimated GFR ml/min Glucose (60-115) mg/dL Calcium (8.4-10.6) mg/dL Total Bilirubin (0.1-1.5) mg/dL Direct Bilirubin (0.0-0.5) mg/dL AST (12-35) U/L ALT (4-35) U/L Alkaline Phosphatase (40-150) U/L Total Protein Cancelled (6.0-8.3) g/dL Albumin 3.1 L Cancelled (3.3-5.0) g/dL Blood Type A Negative Antibody Screen NEGATIVE Discharge Plan Discharge Clinical Impression: Neutropenia, Thrombocytopenia, Multiple myeloma Patient Disposition: Home, Self-Care Condition: Improved Additional Instructions: Further follow-up per [facility] peer Prescriptions: No Action (DME) Walker- [address] [facility] See Rx Instructions .Route Qty: 1 0RF Rx Instructions: As directed acyclovir 200 mg capsule 400 mg PO BID bortezomib [Velcade] 3.5 mg recon soln 2.4 mg IV 2XW Rx Instructions: administer dose on days 1, 4, 8, and 11 of 28-day/4-week cycle potassium chloride 10 mEq tablet extended release 10 meq PO QDAY Qty: 90 3RF cyanocobalamin (vitamin B-12) 1,000 mcg capsule 1,000 mcg PO DAILY omeprazole 20 mg capsule,delayed release(DR/EC) 20 mg PO DIRECTED Patient Comments: TAKE 1 CAPSULE BY MOUTH DIRECTED FOR 3 DAYS STARTING WITH EACH DOSE OF DEXAMETHASONE Rx Instructions: take for 3 days starting with each dose of dexamethasone prochlorperazine maleate 10 mg tablet 10 mg PO Q4-6H PRN Patient Comments: TAKE 1 TABLET BY MOUTH EVERY 4 TO 6 HOURS NEEDED FOR NAUSEA OR VOMITING penicillin V potassium 500 mg tablet 500 mg PO BID lenalidomide [Revlimid] 10 mg capsule PO Slow-Mag 71.5 mg tablet,delayed release (DR/EC) 143 mg PO QAM aspirin 325 mg capsule 325 mg PO DAILY ipratropium-albuterol 0.5 mg-3 mg(2.5 mg base)/3 mL solution for nebulization 3 ml inhalation Q6H PRN (Reason: wheezing) Qty: 90 0RF Calcium + Vitamin D sulfamethoxazole-trimethoprim 400-80 mg tablet 1 tab PO DAILY fluconazole 200 mg tablet 200 mg PO DAILY olanzapine 5 mg tablet 5 mg PO QPM levofloxacin 250 mg tablet 250 mg PO DAILY Slow-Mag metformin 500 mg tablet See Rx Instructions .ROUTE .COMPLEX Qty: 270 3RF Dose Instruction: TAKE 1 TABLET BY MOUTH WITH BREAKFAST AND 2 TABLETS AT SUPPER Rx Instructions: TAKE 1 TABLET BY MOUTH WITH BREAKFAST AND 2 TABLETS AT SUPPER lorazepam 0.5 mg tablet 0.5 mg PO BID PRN (Reason: anxiety) Qty: 60 2RF hydrochlorothiazide 12.5 mg tablet 12.5 mg PO QDAY Qty: 90 3RF lisinopril 40 mg tablet See Rx Instructions .ROUTE .COMPLEX Qty: 90 3RF Dose Instruction: TAKE 1 TABLET BY MOUTH EVERY MORNING AND 20MG AT BEDTIME, TOTAL 60MG PER DAY. Rx Instructions: TAKE 1 TABLET BY MOUTH EVERY MORNING AND 20MG AT BEDTIME, TOTAL 60MG PER DAY. atenolol 50 mg tablet 75 mg PO BID Qty: 135 1RF Patient Comments: TAKE 1 AND 1/2 TABLETS BY MOUTH TWICE DAILY Follow Up/Referrals: Dustin Briones MD [Primary Care Provider] - Stand Alone Forms: Access Closure Info Instructions
[2023-05-10 15:52] LABS: Anion Gap 5 mEq/L (7-15); Bilirubin Direct* 0.2 mg/dL (0.0-0.5); Bilirubin Total* 0.4 mg/dL (0.1-1.5); Carbon Dioxide* 28 mmol/L (20-32); Creatinine* 1.1 mg/dL (0.5-1.5); Est. Creatinine Clearance* 34.95; Estimated Glomerular Filt Rate 52 ml/min
[2023-05-10 15:53] LABS: Alanine Aminotransferase* 19 U/L (4-35); Alkaline Phosphatase* 44 U/L (40-150); Aspartate Amino Transferase* 16 U/L (12-35); Blood Urea Nitrogen* 35 mg/dL (7-30); Calcium* 8.7 mg/dL (8.4-10.6); Glucose* 114 mg/dL (60-115)
[2023-05-10 16:02] LABS: Platelet Count* 5 K/uL (140-440); Slide Review Reflex Yes; White Blood Count* 0.05 K/uL (4.50-11.00)
[2023-05-10 16:03] LABS: Slide Review Acceptable Review (Acceptable)
--- NOTE | 2023-05-10 20:19 | ED.NURSE ---
Infusion completed 8:15 pm
== END 2023-05-10 20:42 | disposition home or self-care (01) ==
PROVIDERS: Emergency Provider Emergency Medicine; PCP Family Medicine
DX: D70.9 Neutropenia, unspecified (principal); D69.6 Thrombocytopenia, unspecified; C90.00 Multiple myeloma not having achieved remission
CPT/HCPCS: 36415; 36430; 80048; 80076; 85025; 86850; 86900; 86901; 93005; 94761; 99284; P9073

== ENCOUNTER 2024-08-13 09:26 | Outpatient (CLI) | payer OTHER, SELFPAY | END 2024-08-13 09:27 | disposition home or self-care (01) | PROVIDERS: PCP Family Medicine; Visit Provider Family Medicine | DX: I10 Essential (primary) hypertension (principal); E78.5 Hyperlipidemia, unspecified; E04.1 Nontoxic single thyroid nodule; E66.9 Obesity, unspecified; E13.9 Other specified diabetes mellitus without complications; Z13.6 Encounter for screening for cardiovascular disorders; Z13.21 Encounter for screening for nutritional disorder; Z13.29 Encounter for screening for other suspected endocrine disorder | CPT/HCPCS: 80048; 80061; 82607; 84443 ==